=== PATIENT | female | born 1945 | race Caucasian/White ===

== ENCOUNTER 2020-10-07 09:00 | Outpatient (REF) | payer MEDICARE, SELFPAY ==
--- NOTE | 2020-10-07 | XR_ITS ---
EXAMINATION: XR ANKLE, RIGHT CLINICAL INFORMATION: Pain right ankle COMPARISON: Radiographs right foot 10/28/2015, report right ankle radiographs 06/29/2011 TECHNIQUE: AP, lateral, and mortise views of the right ankle. FINDINGS: There is diffuse soft tissue swelling versus body habitus. Numerous benign round and rim calcifications are seen in the anterolateral soft tissues similar to prior radiograph 10/28/2015, likely venous stasis. The malleoli appear intact and the ankle mortise is symmetric. There is no fracture or dislocation. No tibiotalar joint narrowing or osteochondral lesion. Again, there is pes planus with bulky posterior and plantar spurring as well as increased dorsal spurring, talonavicular region. XR/XR ankle RT min 3V IMPRESSION: 1. Flat foot. Bulky posterior and plantar calcaneal spurs. 2. Dorsal spurring talonavicular region. 3. No acute fracture or destructive process. 4. Chronic soft tissue calcifications, possibly venous stasis related.
[2020-10-07 10:02] LABS: Alanine Aminotransferase 13 U/L (0-31); Albumin Level 4.4 g/dL (3.5-5.0); Alkaline Phosphatase 52 U/L (39-117); Anion Gap 13 (12-20); Aspartate Amino Transferase 14 U/L (5-31); Bilirubin Total 0.3 mg/dL (0.0-1.0); Blood Urea Nitrogen 9 mg/dL (9-16); Calcium 9.1 mg/dL (8.4-10.2); Carbon Dioxide 31 mmol/L (22-29); Chloride 102 mmol/L (96-108); Estimated Glomerular Filt Rate > 60; Glucose Fasting 119 mg/dL (60-99); Sodium 142 mmol/L (135-145); Total Protein 7.7 g/dL (6.5-8.0)
[2020-10-07 10:25] LABS: Thyroid Stimulating Hormone 1.61 uIU/mL (0.32-4.0)
[2020-10-07 10:44] LABS: Glucose Urine UA NEG (NEG); Leukocyte Esterase Urine TRACE (NEG); Nitrite Urine NEG (NEG); Specific Gravity - Urine 1.015 (1.005-1.025); Urine Blood NEG (NEG); Urine Ketones NEG (NEG); Urine Protein NEG (NEG-TRACE)
[2020-10-07 10:49] LABS: Appearance Urine HAZY; Color Urine YELLOW
[2020-10-07 11:01] LABS: Bacteria Urine 2+ /LPF; RBC Urine 0-2 /HPF (0); Squamous Epithelial Cell Urine 2+ /LPF
== END 2020-10-07 09:01 | disposition home or self-care (01) ==
LOC: HO.LAB 09:00
PROVIDERS: PCP Internal Medicine; Visit Provider Internal Medicine
DX: I10 Essential (primary) hypertension (principal); R60.0 Localized edema; M25.571 Pain in right ankle and joints of right foot
CPT/HCPCS: 36415; 73610; 80053; 81001; 84443

== ENCOUNTER 2020-10-28 08:36 | Outpatient (REF) | payer MEDICARE, SELFPAY ==
--- NOTE | ~2020-10-28 | MM_ITS ---
EXAMINATION: MM SCREENING DIGITAL BREAST TOMOSYNTHESIS, BILATERAL CLINICAL INFORMATION: Screening. Asymptomatic. The lifetime risk of breast cancer based on the Tyrer-Cuzick Model is 3%. COMPARISON: Mammography: 06/03/2019, 05/27/2019, 05/17/2018 TECHNIQUE: Digital breast tomosynthesis is performed in both the craniocaudal and mediolateral oblique views along with computer-aided detection (CAD). Synthesized 2D images are generated from the tomosynthesis. FINDINGS: There are scattered areas of fibroglandular density (ACR BI-RADS breast composition Category b). There are no significant masses, abnormal calcifications, or other abnormalities. Breast tissue composition borders on predominantly fatty. Background stromal densities are stable. There is incidental intramammary node again noted mid upper outer right breast. The skin contours are smooth. MM/MM tomosynthesis screening BI IMPRESSION: No mammographic evidence of malignancy. ASSESSMENT: BI-RADS 2: Benign RECOMMENDATION: Routine annual mammography screening. This patient's information was entered into a reminder system with a target due date for their next mammogram.
== END 2020-10-28 08:37 | disposition home or self-care (01) ==
LOC: HO.MAMMO 08:36
PROVIDERS: PCP Internal Medicine; Visit Provider Internal Medicine
DX: Z12.31 Encounter for screening mammogram for malignant neoplasm of breast (principal)
CPT/HCPCS: 77063; 77067

== ENCOUNTER 2021-02-08 09:48 | Emergency (ER) | payer MEDICARE, SELFPAY ==
[2021-02-08 10:29] VITALS: BP 119/86; PULSE 88; RESP 16; TEMP 36.9; O2SAT 95; BMI 43.4
[2021-02-08] MEDS: Cyclobenzaprine HCl 5 MG TABLET PO (11:06)
[2021-02-08] MEDS: Lidocaine 4 % Patch ADH..PATCH 1 PATCH TRANSDERMA (11:07)
--- NOTE | 2021-02-08 11:15 | ED.NECK ---
HPI - Neck Pain/Injury General Chief Complaint: Neck Pain/Injury Stated Complaint: neck pain x 5 days Time Seen by Provider: 02/08/21 10:52 Source: patient Mode of arrival: ambulatory History of Present Illness HPI Narrative: 75-year-old female with no significant past medical history presenting to the ED complaining of left-sided neck pain x5 days. Reports woke up with the pain. States pain worsened with movement/bending or any head rotation. Denies headache, visual change, numbness, tingling, weakness, CP/SOB, injury/trauma or falls. Takes a baby aspirin, no other anticoagulation States apply heat with some pain improvement MD complaint: neck pain Related Data Previous Rx's Medication Instructions Recorded acetaminophen [Tylenol Extra 500 mg PO Q6H PRN #20 tab 02/08/21 Strength] cyclobenzaprine 5 mg PO Q8H PRN 5 Days #14 tab 02/08/21 lidocaine [Lidoderm] 1 patch TOPICAL DAILY PRN #30 ea 02/08/21 MDD remove after 12 hours tramadol 50 mg PO Q8H PRN #9 tab 02/08/21 Allergies Allergy/AdvReac Type Severity Reaction Status Date / Time No Known Allergies Allergy Verified 02/08/21 10:28 [No Known Allergies*] Review of Systems Review of Systems: Constitutional: No Fever, No Chills ENT/Mouth: No Hearing loss, No Ear Pain, No sore throat Eyes: No Eye Pain, No Vision Changes Cardiovascular: No Chest Pain, No SOB Respiratory: No Cough, No Dyspnea Gastrointestinal: No Nausea, No Vomiting, No Abdominal pain Genitourinary: No Urinary Incontinence/retention Musculoskeletal: +neck pain, No Myalgias, No Joint Swelling Skin: No Skin Lesions, No rash Neuro: No Weakness, No Numbness, No Paresthesias, No Dizziness, No Headache Yes all other systems are reviewed and are negative [facility] Past Medical History Attestation statement: The following information was validated with the patient. Social History Social History Advance Directives: No Advance Directives Information Provided: No Physical Exam Vital Signs: Vital Signs: Last Vital Signs Temp 98.4 F 02/08/21 10:29 Pulse 88 02/08/21 10:29 Resp 16 02/08/21 10:29 BP 119/86 02/08/21 10:29 Pulse Ox 95 02/08/21 10:29 Body Mass Index 43.4 Const: General: cooperative, healthy appearing and no acute distress Orientation/consciousness: patient oriented x3 Limitations: no limitations HENMT: Head: Yes normal to inspection and Yes atraumatic Ears: hearing grossly normal bilaterally, external ears normal and TM's normal bilaterally General nose exam: Normal external nose present Face and sinus: Yes normal facial exam Mouth: Normal oral and palatal mucosa present Throat: Yes posterior oropharynx normal, Yes tonsils normal and Yes uvula midline Eyes: General: appearance normal, both eyes and all related structures EOM: EOMs intact bilaterally Neck: Other: No midline cervical spinous tenderness. + left-sided paraspinal and MSK/left-sided trapezius muscle tenderness to palpation. Pain elicited on neck ROM. Neck ROM limited secondary to pain. Radial pulses intact bilaterally Neck: Yes normal visual inspection, Yes no lymphadenopathy, Yes no meningeal signs, Yes trachea midline, Yes supple and No anterior neck swelling Chest: Chest palpation & inspection: normal inspection of the chest Resp: Effort & Inspection: normal respiratory effort Auscultation: clear to auscultation bilaterally Cardio: Rate: regular rate Heart sounds: S1 normal heart sound present and S2 normal heart sound present Back/Spine/Pelvis: Other: No midline thoracic/lumbar spinous tenderness Skin: Rashes: no rashes Wounds: no wounds Neuro: General: patient oriented x3, gait normal, tone normal, moves all extremities, no meningeal signs and no focal motor deficits Gait exam (Neuro): Normal gait present Extrem: General: Yes normal to inspection MDM - Neck Pain/Injury MDM Narrative Medical decision making narrative: 75-year-old female with no significant past medical history presenting to the ED complaining of left-sided neck pain x5 days. On exam VSS, NAD, physical exam as above. Likely MSK pain. Low concern for fracture, dislocation, cervical stenosis/dissection as pain is reproducible Will DC patient home with pain control, discussed strict return precautions and worrisome signs and symptoms Discharge Plan Discharge Clinical Impression: Strain of neck muscle Patient Disposition: Home, Self-Care Instructions: Cervical Strain (ED) Additional Instructions: Your pain is likely musculoskeletal Flexeril is a muscle relaxer, take at night as it makes you drowsy, do not drive, drink alcohol, or operate machinery while taking it Lidoderm patches are numbing patches, apply to painful area Tramadol as an opiate pain medication, take only when pain is severe for the next 3 days In addition take Tylenol at home Make sure you follow-up with her primary care doctor If symptoms persist or worsen, pain becomes unbearable, you developed numbness, tingling, weakness, headache, visual changes please return to the ED immediately Prescriptions: New acetaminophen [Tylenol Extra Strength] 500 mg tablet 500 mg PO Q6H PRN (Reason: pain or fever) Qty: 20 RF: 0 lidocaine [Lidoderm] 5 % adhesive patch,medicated 1 patch topical DAILY MDD remove after 12 hours PRN (Reason: pain) Qty: 30 RF: 0 cyclobenzaprine 5 mg tablet 5 mg PO Q8H PRN (Reason: pain (scale score 7-10)) 5 Days Qty: 14 RF: 0 tramadol 50 mg tablet 50 mg PO Q8H PRN (Reason: pain, severe) Qty: 9 RF: 0 Referrals: Ezekiel Patel MD [Primary Care Provider] - 3 days Interventions: ED Discharge Assessment Last Done: 02/08/21 11:29 Discharge Date/Time: 02/08/21 11:31
== END 2021-02-08 11:31 | disposition home or self-care (01) ==
PROVIDERS: Emergency Provider Emergency Medicine; PCP Internal Medicine
DX: S16.1XXA Strain of muscle, fascia and tendon at neck level, initial encounter (principal); X50.1XXA Overexertion from prolonged static or awkward postures, initial encounter; Y93.84 Activity, sleeping; Y92.032 Bedroom in apartment as the place of occurrence of the external cause; Y99.9 Unspecified external cause status
CPT/HCPCS: 99283

== ENCOUNTER 2021-07-12 08:47 | Inpatient (IN) | payer MEDICARE, SELFPAY ==
[2021-07-12] VITALS (10 sets, daily range): BP systolic 136–163; BP diastolic 57–88; PULSE 73–93; RESP 16–25; TEMP 36.2–37.2; O2SAT 87–98; BMI 39.8
--- NOTE | ~2021-07-12 | XR_ITS ---
EXAMINATION: XR CHEST CLINICAL INFORMATION: Status post T-tube nasogastric tube placement COMPARISON: 07/12/2021 TECHNIQUE: Frontal view of the chest was obtained. FINDINGS: The tip of the ET tube is at the randa and should be pulled back. NG tube is in good position with its tip coiled in the stomach. The lungs are hypoinflated. Bibasilar atelectasis is present, left greater than right. No pleural effusions. No pneumothorax. XR/XR chest 1V IMPRESSION: ET tube at randa and should be pulled back. NG tube and good position. This critical result was discussed with Rashid Castellano NP at 8:15 PM on the evening of the exam and it was ascertained that the content and urgency of the report was understood at the time of direct communication.
--- NOTE | ~2021-07-12 | CT_ITS ---
EXAMINATION: CT ABDOMEN AND PELVIS WITHOUT CONTRAST CLINICAL INFORMATION: Upper abdominal/flank pain COMPARISON: Previous CT of the abdomen and pelvis from 2012 TECHNIQUE: Multidetector volumetric imaging was performed from the superior aspect of the liver through the pubic symphysis. Sagittal and coronal reformatted images were obtained on the technologist's workstation. This CT examination was performed using dose optimization techniques as appropriate, variously including the following: *Automated exposure control *Adjustment of mA and/or kV according to patient size (this includes techniques or standardized protocols for targeted exams where dose is matched to indication/reason for exam; i.e. extremities or head) *Use of iterative reconstruction technique DLP: 1 122 mGy-cm FINDINGS: LUNG BASES: The visualized lung bases are clear. There are calcified right hilar lymph nodes. LIVER, GALLBLADDER, AND BILIARY TREE: The liver is normal in size, shape, and attenuation. No focal hepatic lesion or biliary ductal dilatation is present. The gallbladder is slightly dilated.. There is a gallstone in the gallbladder. There is question of gallbladder wall thickening or edema. PANCREAS: Unremarkable. SPLEEN: Unremarkable. ADRENAL GLANDS: Unremarkable. KIDNEYS AND URETERS: The kidneys are normal in size, shape, and attenuation. No hydronephrosis, hydroureter, or calculi seen. No perinephric stranding. BLADDER: Unremarkable. GASTROINTESTINAL TRACT: There is diverticulosis of the colon. No evidence of diverticulitis is seen. Small and large bowel is otherwise unremarkable. The appendix is unremarkable. Stomach is unremarkable. ABDOMINAL WALL: There is a small umbilical hernia containing fat. There is a small left inguinal hernia containing fat. LYMPH NODES: Normal. VASCULAR: Unremarkable. PELVIC VISCERA: Unremarkable. OSSEOUS STRUCTURES: There are degenerative changes of the spine. There is a dependent edema seen adjacent to the lower thoracic and upper lumbar spine and linear soft tissue calcification. CT/CT abdomen pelvis wo con IMPRESSION: Distended gallbladder. Gallstone. Question gallbladder wall thickening or edema. Findings are questionable for acute cholecystitis. Follow-up ultrasound or HIDA scan should be considered if clinically indicated. Diverticulosis of the colon. No evidence of diverticulitis. No renal stone or hydronephrosis.
--- NOTE | ~2021-07-12 | XR_ITS ---
EXAMINATION: XR CHEST CLINICAL INFORMATION: Shortness of breath COMPARISON: Previous chest x-ray most recent October 2018 TECHNIQUE: Frontal view of the chest was obtained. FINDINGS: The cardiac and mediastinal contours are stable. The lung volumes are low. The lungs are clear. There is no pleural effusion or pneumothorax. There are degenerative changes of the spine and mild curvature of the mid thoracic spine to the right. XR/XR chest 1V IMPRESSION: No evidence for acute disease in the chest.
--- NOTE | ~2021-07-12 | MR_ITS ---
EXAMINATION: MR ABDOMEN WITHOUT CONTRAST CLINICAL INFORMATION: Dilated common bile duct and elevated liver function tests. Rule out common bile duct stone. COMPARISON: Previous abdominal ultrasound and abdominal and pelvic CT from yesterday TECHNIQUE: MR abdomen is performed without gadolinium contrast. MRCP sequences were also performed. FINDINGS: LUNG BASES: The visualized lung bases are unremarkable. LIVER, GALLBLADDER, AND BILIARY TREE: The liver is normal in size and contour. There is are areas of slight signal loss in the liver on out of phase suggestive of mild fatty infiltration. No focal hepatic lesion or biliary ductal dilatation is present. The gallbladder is slightly enlarged measuring 10 x 4 x 4 cm. There is a large gallstone seen in the gallbladder measuring 1.3 x 3 cm. There is some sludge seen in the gallbladder. Gallbladder wall is thickened and edematous. The gallbladder wall measures up to 7 mm. There is no intrahepatic biliary duct dilatation. The common bile duct is upper normal in size measuring 7 to 8 mm. No common bile duct stone is seen. PANCREAS: Unremarkable. The main pancreatic duct is normal. SPLEEN: Unremarkable. ADRENAL GLANDS: Unremarkable. KIDNEYS AND URETERS: The kidneys are normal in size and shape. No hydronephrosis. No perinephric stranding. GASTROINTESTINAL TRACT: There is mild diverticulosis of the colon. No bowel obstruction. No ascites or fluid collection. ABDOMINAL WALL: There is a small umbilical hernia containing fat. There is dependent edema seen in the soft tissues of the back. LYMPH NODES: No lymphadenopathy. VASCULAR: Unremarkable. OSSEOUS STRUCTURES: Marrow signal normal. MR/MR MRCP IMPRESSION: Slightly enlarged gallbladder and large 1.3 x 3 cm gallstone. Gallbladder wall thickening and edema. Findings are again suggestive of acute cholecystitis. Normal caliber intrahepatic bile ducts. Upper normal-size common bile duct measuring 7 to 8 mm. No common bile duct stone seen.
--- NOTE | ~2021-07-12 | US_ITS ---
EXAMINATION: US ABDOMEN LIMITED CLINICAL INFORMATION: Abdominal pain assess for cholecystitis. COMPARISON: CT abdomen 07/12/2021. TECHNIQUE: Real-time imaging of the right upper quadrant abdominal viscera. FINDINGS: PANCREAS: Normal. LIVER: Normal. The liver is normal in size. The liver contour is normal. Parenchymal echogenicity is normal. No focal hepatic lesion. There is no intrahepatic biliary duct dilatation seen. GALLBLADDER: Cholelithiasis with a stone measuring up to 3.3 cm. There is sludge in the gallbladder. The gallbladder is distended with a thickened wall measuring 1.3 cm. There is mural edema and pericholecystic fluid. COMMON BILE DUCT: Dilated common bile duct measuring 0.9 cm with question of debris within the duct. RIGHT KIDNEY: Normal. No hydronephrosis. No renal calculi or focal parenchymal lesions. The kidney measures 12.0 cm in maximum dimension. FREE FLUID: None. US/US abdomen limited IMPRESSION: Cholelithiasis with thickened edematous gallbladder wall and trace pericholecystic fluid. Findings are consistent with cholecystitis in the appropriate clinical context. Dilated common bile duct measuring 0.9 cm with possible debris in the duct.
--- NOTE | 2021-07-12 09:22 | ECG_ITS ---
Test Reason : short of breath Blood Pressure : / mmHG Vent. Rate : 092 BPM Atrial Rate : 092 BPM P-R Int : 168 ms QRS Dur : 084 ms QT Int : 350 ms P-R-T Axes : 034 016 025 degrees QTc Int : 432 ms Normal sinus rhythm Nonspecific T wave abnormality Abnormal ECG No significant changes seen Referred By: Helen Sanford Electronically Signed By:SAJI NUNEZ MD
--- NOTE | 2021-07-12 09:30 | ED_ITS ---
HPI - General Adult General Chief complaint: Dyspnea Stated complaint: diff breathing, abd & back pain Time Seen by Provider: 07/12/21 09:22 Source: patient, family (Spouse) and manager portable Mode of arrival: ambulatory Limitations: no limitations History of Present Illness HPI narrative: 76-year-old female came in for evaluation of shortness of breath, and midback pain with epigastric pain. Symptoms started since yesterday with shortness of breath patient is known history of COPD and sleep apnea, patient uses CPAP machine at night, patient admitted to taking 2 COVID vaccination. Patient declined any fever chills, no sick contacts, no recent travel. The patient also been complaining of mid back pain described as a constant dull aching pain radiates to the epigastric area. Declined any urinary symptoms. Related Data Previous Rx's Medication Instructions Recorded acetaminophen 500 mg tablet 500 mg PO Q6H PRN #20 tab 02/08/21 (Tylenol Extra Strength) cyclobenzaprine 5 mg tablet 5 mg PO Q8H PRN 5 Days #14 tab 02/08/21 lidocaine 5 % topical patch 1 patch TOPICAL DAILY PRN #30 ea 02/08/21 (Lidoderm) MDD remove after 12 hours tramadol 50 mg tablet 50 mg PO Q8H PRN #9 tab 02/08/21 Allergies Allergy/AdvReac Type Severity Reaction Status Date / Time No Known Allergies Allergy Verified 02/08/21 10:28 [No Known Allergies*] Review of Systems 2 Review of Systems: All other systems are reviewed and are negative Constitutional: Reports as per HPI and Reports no additional constitutional complaints Eyes: Reports as per HPI and Reports no additional eye complaints Reports system reviewed and no additional complaints, except as documented Cardiovascular: Reports as per HPI and Reports no additional cardiovascular complaints Respiratory: Reports as per HPI and Reports no additional respiratory complaints Gastrointestinal: Reports as per HPI and Reports no additional gastrointestinal complaints Genitourinary: Reports no additional female genitourinary complaints Musculoskeletal: Reports no additional musculoskeletal complaints Skin/Breast: Reports system reviewed and no additional complaints, except as docu Psychiatric: Reports no additional psychiatric complaints Endocrine: Reports no additional endocrine complaints Hematologic/Lymphatic: Reports no additional hematologic/lymphatic complaints Allergic/Immunologic: Reports no additional allergic/immunologic complaints Reports system reviewed and no additional complaints, except as documented and Reports Abnormal speech present [facility] Social History Social History Advance Directives: No Physical Exam Vital Signs: Vital Signs: Last Vital Signs Temp 98.9 F 07/12/21 09:14 Pulse 82 07/12/21 14:00 Resp 16 07/12/21 14:00 BP 155/82 H 07/12/21 14:00 Pulse Ox 97 07/12/21 14:06 Body Mass Index 39.8 Vital signs have been reviewed as appeared to be correct. Blood pressure normal. Heart rate normal. Respiration rate normal. Temperature normal. Oxygen saturation normal. Appearance: Alert. Oriented X3. No acute distress. Head: Normal external exam. Normocephalic. Atraumatic. No [place] signs noted. No raccoon eyes noted Eyes: PERRLA. EOMI. Conjunctiva and sclera normal. Eyelids normal. ENT: TM's Normal. Pharynx normal. Uvula midline. Moist mucous membranes. No trismus noted. No drooling noted. No muffled voice noted. Neck: Normal inspection. Neck supple. FROM. No adenopathy. Thyroid Normal. No meningeal signs. No neck mass noted. CVS: Normal heart rate and rhythm. Heart sound normal. No murmurs noted. Pulses normal throughout. Respiratory: No respiratory distress. Painless inspiration. Breath sounds normal. Bilateral diffuse mild expiratory wheezing, prolonged expiration. Chest nontender. No accessory muscle usage noted or decreased air movement not ed. Abdomen: Soft and nontender, no epigastric tenderness, no pulsatile palpable mass. Bowel sounds normal in all 4 quadrants. No distention noted. No organomegaly noted. No visible injury noted. Back: No CVA tenderness. Full range of motion noted. Skin: Skin warm and dry. Normal skin color. Normal skin turgor. No rashes/lesions/lacerations noted. Extremities: No lower extremity edema. Extremities exhibit normal range of motion. Extremities nontender. Neuro: Oriented X 3. Cranial nerve exam: II-XII are grossly intact No motor deficit. No sensory deficit. Reflexes normal. Course Course Course Narrative: Assessment and plan. 76-year-old female came in for evaluation of epigastric pain, and shortness of breath. Patient had a CT scan/ultrasound of the abdomen which showed acute cholecystitis with cholelithiasis, patient meet no sepsis criteria, received Zosyn. Case discussed with Dr. Ruelas who admitting the patient for possible surgical intervention. Shortness of breath patient with COPD/sleep apnea use CPAP at home, patient received bronchodilator while in the ED, patient been satting 92-97 with oxygen, had 1 time raining of low oxygen when patient walked to the bathroom 87%. Patient stable, no wheezing. Hypokalemia potassium was replaced IV. Medical Decision Making Medical Records Medical records reviewed: Yes I reviewed the patient's medical records. Lab Data Lab results reviewed: Yes I reviewed the patient's lab results. Result diagrams: 07/12/21 11:50 07/12/21 11:50 Labs: Lab Results 07/12/21 07/12/21 07/12/21 Range/Units 11:50 11:50 11:50 WBC 8.9 (4.8-10.8) X10*3/uL RBC 4.20 (4.20-5.50) X10*6/uL Hgb 12.6 (12.0-16.0) g/dl Hct 39.8 (37-47) % MCV 94.8 (80-98) fL MCH 30.0 (27.0-33.0) pg MCHC 31.7 (31.0-35.0) g/dl RDW 12.8 (11.0-16.0) % Plt Count TNP MPV Not Reportable Immature Gran % (Auto) 0.6 H (0.0-0.4) % Neut % (Auto) 91.8 H (45-73) % Lymph % (Auto) 4.6 L (20-40) % [place] % (Auto) 2.5 (2-11) % Eos % (Auto) 0.3 (0-4) % Baso % (Auto) 0.2 (0-2) % Lymph # (Auto) 0.4 L (1.2-4.9) X10*3/uL [place] # (Auto) 0.2 (0.1-1.2) X10*3/uL Eos # (Auto) 0.0 (0.0-0.4) X10*3/uL Baso # (Auto) 0.0 (0.0-0.2) X10*3/uL Abs Immat Gran (auto) 0.05 H (0.00-0.03) X10*3/uL Absolute Neuts (auto) 8.2 (2.0-8.3) X10*3/uL Absolute Nucleated RBC 0.000 (0.0-0.012) X10*3/uL Nucleated RBC % (auto) 0.0 (0.0-0.2) /100WBC Smear Tech's Comments VERIFIED Sodium 141 (135-145) mmol/L Potassium 3.0 L (3.3-5.1) mmol/L Chloride 97 (96-108) mmol/L Carbon Dioxide 34 H (22-29) mmol/L Anion Gap 13 (12-20) BUN 8 L (9-16) mg/dL Creatinine 0.59 (0.5-1.4) mg/dL Estim Creat Clear Calc 93.9 Estimated GFR > 60 Random Glucose 158 H (60-115) mg/dL Lactic Acid (0.5-2.0) mmol/L Calcium 8.9 (8.4-10.2) mg/dL Total Bilirubin 2.3 H (0.0-1.0) mg/dL Direct Bilirubin 1.7 H (0.0-0.5) mg/dL AST 228 H (5-31) U/L ALT 134 H (0-31) U/L Alkaline Phosphatase 67 D (39-117) U/L Troponin I High Sens 12.8 (<3.5-17.0) ng/L B-Natriuretic Peptide 88 (<100) pg/mL Total Protein 7.0 (6.5-8.0) g/dL Albumin 4.0 (3.5-5.0) g/dL Lipase 1391 H (8-78) U/L Urine Color Urine Appearance Urine pH (5.0-8.0) Ur Specific [place] (1.005-1.025) Urine Protein (NEG-TRACE) MG/DL Urine Glucose (UA) (NEG) MG/DL Urine Ketones (NEG) MG/DL Urine Blood (NEG) Urine Nitrite (NEG) Ur Leukocyte Esterase (NEG) Coronavirus (PCR) (Negative) Influenza Type A (PCR) (Negative) Influenza Type B (PCR) (Negative) RSV RNA Qual (PCR) (Negative) 07/12/21 07/12/21 07/12/21 Range/Units 11:50 11:50 13:06 WBC (4.8-10.8) X10*3/uL RBC (4.20-5.50) X10*6/uL Hgb (12.0-16.0) g/dl Hct (37-47) % MCV (80-98) fL MCH (27.0-33.0) pg MCHC (31.0-35.0) g/dl RDW (11.0-16.0) % Plt Count MPV Immature Gran % (Auto) (0.0-0.4) % Neut % (Auto) (45-73) % Lymph % (Auto) (20-40) % [place] % (Auto) (2-11) % Eos % (Auto) (0-4) % Baso % (Auto) (0-2) % Lymph # (Auto) (1.2-4.9) X10*3/uL [place] # (Auto) (0.1-1.2) X10*3/uL Eos # (Auto) (0.0-0.4) X10*3/uL Baso # (Auto) (0.0-0.2) X10*3/uL Abs Immat Gran (auto) (0.00-0.03) X10*3/uL Absolute Neuts (auto) (2.0-8.3) X10*3/uL Absolute Nucleated RBC (0.0-0.012) X10*3/uL Nucleated RBC % (auto) (0.0-0.2) /100WBC Smear Tech's Comments Sodium (135-145) mmol/L Potassium (3.3-5.1) mmol/L Chloride (96-108) mmol/L Carbon Dioxide (22-29) mmol/L Anion Gap (12-20) BUN (9-16) mg/dL Creatinine (0.5-1.4) mg/dL Estim Creat Clear Calc Estimated GFR Random Glucose (60-115) mg/dL Lactic Acid 1.3 (0.5-2.0) mmol/L Calcium (8.4-10.2) mg/dL Total Bilirubin (0.0-1.0) mg/dL Direct Bilirubin (0.0-0.5) mg/dL AST (5-31) U/L ALT (0-31) U/L Alkaline Phosphatase (39-117) U/L Troponin I High Sens (<3.5-17.0) ng/L B-Natriuretic Peptide (<100) pg/mL Total Protein (6.5-8.0) g/dL Albumin (3.5-5.0) g/dL Lipase (8-78) U/L Urine Color YELLOW Urine Appearance CLEAR Urine pH 6.5 (5.0-8.0) Ur Specific [place] 1.010 (1.005-1.025) Urine Protein NEG (NEG-TRACE) MG/DL Urine Glucose (UA) NEG (NEG) MG/DL Urine Ketones NEG (NEG) MG/DL Urine Blood NEG (NEG) Urine Nitrite NEG (NEG) Ur Leukocyte Esterase NEG (NEG) Coronavirus (PCR) NEGATIVE (Negative) Influenza Type A (PCR) NEGATIVE (Negative) Influenza Type B (PCR) NEGATIVE (Negative) RSV RNA Qual (PCR) NEGATIVE (Negative) Imaging Data Chest x-ray: Radiologist's impression: No acute intrathoracic pathology. CT scan - abdomen: Radiologist's impression: Distended gallbladder. Gallstone. Question gallbladder wall thickening or edema. Findings are questionable for acute cholecystitis. Follow-up ultrasound or HIDA scan should be considered if clinically indicated. Diverticulosis of the colon. No evidence of diverticulitis. No renal stone or hydronephrosis.? Abdominal ultrasound: Radiologist's impression: Cholelithiasis with thickened edematous gallbladder wall and trace pericholecystic fluid. Findings are consistent with cholecystitis in the appropriate clinical context. ? Dilated common bile duct measuring 0.9 cm with possible debris in the duct. ECG Data Attestation: I personally reviewed and interpreted this ECG as follows: Interpretation: Normal sinus rhythm at 92 beats per minutes, normal axis de viation, normal intervals, nonspecific ST-T changes. Discharge Plan Discharge Clinical Impression: Acute calculous cholecystitis, Acute hypokalemia, COPD exacerbation Patient Disposition: Admitted As Inpatient Prescriptions: No Action acetaminophen [Tylenol Extra Strength] 500 mg tablet 500 mg PO Q6H PRN (Reason: pain or fever) Qty: 20 RF: 0 lidocaine [Lidoderm] 5 % adhesive patch,medicated 1 patch topical DAILY MDD remove after 12 hours PRN (Reason: pain) Qty: 30 RF: 0 cyclobenzaprine 5 mg tablet 5 mg PO Q8H PRN (Reason: pain (scale score 7-10)) 5 Days Qty: 14 RF: 0 tramadol 50 mg tablet 50 mg PO Q8H PRN (Reason: pain, severe) Qty: 9 RF: 0
[2021-07-12] MEDS: Albuterol Sulfate (0.083%) 2.5 MG/3 ML VIAL.NEB INHALE (09:44)
[2021-07-12] MEDS: Albuterol/Iprat 2.5/0.5MG 3 ML AMPUL.NEB INHALE (09:44)
[2021-07-12] MEDS: methylPREDNISolone Sod Succ 125 MG/2 ML VIAL IVPUSH (10:09)
[2021-07-12] MEDS: Magnesium Sulfate/H2O 2 GM/50 ML PIGGYBACK IV (10:09)
[2021-07-12 11:56] LABS: Appearance Urine CLEAR; Color Urine YELLOW; Glucose Urine UA NEG (NEG); Leukocyte Esterase Urine NEG (NEG); Nitrite Urine NEG (NEG); PH 6.5 (5.0-8.0); Urine Blood NEG (NEG); Urine Ketones NEG (NEG); Urine Protein NEG (NEG-TRACE)
[2021-07-12 11:58] LABS: Basophils Percent Auto 0.2 % (0-2); Eosinophils Percent Auto 0.3 % (0-4); Hematocrit 39.8 % (37-47); Hemoglobin 12.6 g/dl (12.0-16.0); Imm Gran Abs Auto 0.05 X10*3/uL (0.00-0.03); Imm Gran Pct Auto 0.6 % (0.0-0.4); Lymphocytes Absolute Auto 0.4 X10*3/uL (1.2-4.9); Lymphocytes Percent Auto 4.6 % (20-40); MANUAL DIFF FLAG SCAN; Mean Corpuscular HGB Conc 31.7 g/dl (31.0-35.0); Mean Corpuscular Volume 94.8 fL (80-98); Monocytes Absolute Auto 0.2 X10*3/uL (0.1-1.2); Monocytes Percent Auto 2.5 % (2-11); Neutrophils Absolute Auto 8.2 X10*3/uL (2.0-8.3); Neutrophils Percent Auto 91.8 % (45-73); PLT CLUMP 1; Red Cell Distribution Width 12.8 % (11.0-16.0); SCAN SMEAR FLAG 1
--- NOTE | 2021-07-12 11:59 | PC.NURSE ---
pt alert and oriented x4, pt reports she has been sob and been having abdominal pain that radiates to the flank since last night. she also reports nausea and vomited once this morning. pt denies headache/dizziness/chest pain. no fever, no chills. Pt has history of COPD and wears a C-PAP at nights. No other symptoms reported.
[2021-07-12 12:22] LABS: B Type Natriuretic Peptide 88 pg/mL (<100); Troponin-I High Sensitivity 12.8 ng/L (<3.5-17.0)
[2021-07-12 12:33] LABS: White Blood Count 8.9 X10*3/uL (4.8-10.8)
[2021-07-12 12:34] LABS: SLIDE REVIEW VERIFIED
[2021-07-12 12:36] LABS: Influenza A PCR NEGATIVE (Negative); Influenza B PCR NEGATIVE (Negative); Resp Syncy Virus RNA Qual PCR NEGATIVE (Negative); SARS COV2 PCR INHOUSE NEGATIVE (Negative)
[2021-07-12 12:41] LABS: Alanine Aminotransferase 134 U/L (0-31); Alkaline Phosphatase 67 U/L (39-117); Anion Gap 13 (12-20); Aspartate Amino Transferase 228 U/L (5-31); Bilirubin Direct 1.7 mg/dL (0.0-0.5); Bilirubin Total 2.3 mg/dL (0.0-1.0); Blood Urea Nitrogen 8 mg/dL (9-16); Calcium 8.9 mg/dL (8.4-10.2); Carbon Dioxide 34 mmol/L (22-29); Chloride 97 mmol/L (96-108); Creatinine Clr Calc Pharmacy 93.9; Estimated Glomerular Filt Rate > 60; Glucose Random 158 mg/dL (60-115); Sodium 141 mmol/L (135-145)
--- NOTE | 2021-07-12 13:00 | PC.NURSE ---
pt taken off oxygen to ambulate to restroom, pt's o2 sat R/A 89-90%, pt reported sob. placed on 2L N/C -o2 sat 97-98%. pt denies chest pain/headache/dizziness. no apparent distress noted. at bedside.
[2021-07-12 13:05] LABS: Lipase 1391 U/L (8-78)
[2021-07-12 13:30] LABS: Lactic Acid 1.3 mmol/L (0.5-2.0)
[2021-07-12] MEDS: 0.9 % Sodium Chloride 1,000 ML 999 ML IVCONT ×2 (13:44→14:43)
[2021-07-12] MEDS: Morphine Sulfate 2 MG/ML CARTRIDGE 1 MG IVPUSH (13:53)
[2021-07-12] MEDS: Piperacillin Sodium/Tazobactam 3.375 GM in 0.9 % Sodium Chloride 50 ML IV ×2 (14:41→20:33)
[2021-07-12 14:59] LABS: COVID-19 Test Negative (Negative); IDNOW Serial# 9DD0AD1C
--- NOTE | 2021-07-12 15:42 | PHA.MEDREC ---
Pharmacy Consult ? Medication Reconciliation Pharmacy has completed the medication reconciliation There are no remarkable issues for provider's attention. Sherry Thomas, JarettD
--- NOTE | 2021-07-12 15:57 | PC.NURSE ---
called to give report rn will call back
[2021-07-12] MEDS: Potassium Chloride/H20 10 MEQ/100 ML PIGGYBACK 100 MEQ IV (16:02)
--- NOTE | 2021-07-12 16:31 | P.HPGS_ITS ---
History of Present Illness History of Present Illness Date of Service: 07/13/21 Chief complaint: Acute cholecystitis, cholelithiasis Narrative: Magalie Live is a 76 year old female presenting with complaints of abdominal pain in the right upper quadrant radiating to the back associated with nausea without vomiting. The pain began yesterday and is increased in severity throughout the day. She denies a previous episode of similar pain. She denies fever, chills, diarrhea, constipation, or other associated symptoms. She reports a previous procedure on her liver due to infection but she is unclear what this was. She presented to the emergency department and was noted to have elevated liver function tests and tenderness in the right upper quadrant. Workup revealed a gallbladder with cholelithiasis with thickened edematous gallbladder wall and trace pericholecystic fluid. Findings are consistent with cholecystitis in the appropriate clinical context. Dilated common bile duct measuring 0.9 cm with possible debris in the duct. She is admitted to the surgical service for further management of the cholelithiasis, choledocholithiasis, cholecystitis. Review of Systems Review of Systems: Yes all other systems are reviewed and are negative Constitutional: Constitutional: Denies chills, Denies fever(s) and Reports poor appetite ENT: Reports system reviewed and no additional complaints, except as documented Cardiovascular: Cardiovascular: Denies chest pain, Reports Epigastric Pain, Denies irregular heart rhythm, Denies palpitations and Denies dyspnea Respiratory: Respiratory: Denies chest congestion, Denies cough and Denies dyspnea Gastrointestinal: Gastrointestinal: Reports abdominal pain, Denies constipation, Denies diarrhea, Reports nausea and Reports vomiting Genitourinary: Genitourinary: Reports no additional female genitourinary complaints Musculoskeletal: Musculoskeletal: Reports no additional musculoskeletal complaints Endocrine: Endocrine: Denies palpitations [facility] Past Medical History Medical History (Updated 07/12/21 @ 18:15 by Robert Montgomery MD) COPD (chronic obstructive pulmonary disease) Diabetes mellitus GERD (gastroesophageal reflux disease) Hypertension Family History Family History (Updated 07/12/21 @ 18:15 by Robert Montgomery MD) Mother Diabetes Social History Social History Household Members: Spouse Housing: Apartment Do you presently have visiting nurse or other home services: Yes Patient Tobacco Use Status: Never used Tobacco Use of substances other than those prescribed or required for medical reasons: No Currently Displaying Signs/Symptoms of Drug Intoxication Withdrawal: No Have you been hit, kicked, punched, or otherwise hurt by someone within the past year? If so, by whom?: No Do you feel safe in your current relationship?: Yes Is there a partner from a previous relationship who is making you feel unsafe now?: No Are you made to feel afraid or neglected: No Advance Directives: No Do you have thoughts of harming others: None Do you have a plan to hurt others: No Plan Recently lost weight without trying: No Nutrition Risks: No Nutritional Risk Patient : No : No Poor oral hygiene: No Meds Allergies Allergy/AdvReac Type Severity Reaction Status Date / Time No Known Allergies Allergy Verified 02/08/21 10:28 [No Known Allergies*] Active Medications: Current Medications Acetaminophen (Acetaminophen 325 Mg Tablet) 650 mg PO QID PRN PRN Reason: headache, temp > 101 Hydromorphone HCl (Hydromorphone Hcl 0.5 Mg/0.5 Ml Syringe) 0.5 mg IVPUSH Q2H PRN; Protocol PRN Reason: abdominal pain Dextrose/Lactated Ringer's (D5lr) 1,000 mls @ 125 mls/hr IVCONT .Q8H TIMOTHY Piperacillin Sod/Tazobactam (Sod 3.375 gm/ Sodium Chloride) 50 mls @ 100 mls/hr IV Q6H TIMOTHY Ondansetron HCl (Ondansetron Hcl 4 Mg/2 Ml Vial) 4 mg IVPUSH QID PRN PRN Reason: Nausea Oxycodone HCl (Oxycodone Hcl Immed Release 5 Mg Tablet) 5 mg PO Q6H PRN PRN Reason: Pain, Moderate (Pain Scale 4-6 Sodium Chloride (0.9 % Sodium Chloride Flush 3 Ml Syringe) 3 ml IVFLUSH QSHIFT TIMOTHY Zolpidem Tartrate (Zolpidem Tartrate 5 Mg Tablet) 5 mg PO BEDTIME PRN PRN Reason: Insomnia Home Medications Medication Instructions Recorded Confirmed Last Taken Type albuterol sulfate 90 mcg/actuation 2 puff PO Q6H PRN 07/12/21 07/12/21 Unknown History aerosol inhaler aspirin 81 mg tablet,delayed 1 tab PO BEDTIME 07/12/21 07/12/2121 History release calcium carbonate 600 mg (1,500 1 tab PO BID 07/12/21 07/12/21 07/11/21 History mg)-vitamin D3 400 unit tablet carvedilol 12.5 mg tablet 1 tab PO BID 07/12/21 07/12/21 07/11/21 History furosemide 40 mg tablet 1 tab PO QAM 07/12/21 07/12/21 07/11/21 History hydralazine 10 mg tablet 1 tab PO TID 07/12/21 07/12/21 07/11/21 History isosorbide mononitrate 20 mg tablet 20 mg PO DAILY 07/12/21 07/12/21 07/11/21 History losartan 100 mg tablet 1 tab PO QAM 07/12/21 07/12/21 07/11/21 History metformin 500 mg tablet,extended 2 tab PO BID 07/12/21 07/12/21 07/11/21 History release 24 hr multivitamin 1 tab PO QAM 07/12/21 07/12/21 07/11/21 History pravastatin 40 mg tablet 1 tab PO QPM 07/12/21 07/12/21 07/11/21 History Physical Exam Vital Signs: Vital Signs: Last Vital Signs Temp 97.9 F 07/12/21 15:32 Pulse 79 07/12/21 16:08 Resp 18 07/12/21 16:08 BP 136/57 L 07/12/21 16:08 Pulse Ox 96 07/12/21 15:32 Body Mass Index 39.8 Const: General: cooperative, no acute distress and well developed Nutritional Appearance: well nourished Orientation/consciousness: patient oriented x3 Limitations: no limitations HENMT: Head: Yes normocephalic and Yes atraumatic Ears: hearing grossly normal bilaterally Resp: Effort & Inspection: normal respiratory effort, no audible wheezes, no cough and no respiratory distress Auscultation: clear to auscultation bilaterally Cardio: Jugular venous distension: no JVD Rate: regular rate Rhythm: regular rhythm GI: Inspection: Yes normal to inspection, No distended and Yes Abdominal panniculus present Palpation (GI): Soft to palpation, Tenderness to palpation present (GI) in the RUQ and Hawthorne's sign positive, no guarding, not rigid and hepatosplenomegaly present Percussion: Yes normal to percussion Auscultation: normal bowel sounds Rectal Exam - Female: deferred Skin: General skin exam: no rashes or lesions noted and dry skin Neuro: General: patient oriented x3 Extrem: General: Yes no clubbing, cyanosis or edema Results Results Labs: Short CBC 07/12/21 Range/Units 11:50 WBC 8.9 (4.8-10.8) X10*3/uL Hgb 12.6 (12.0-16.0) g/dl Hct 39.8 (37-47) % Plt Count TNP BMP 07/12/21 11:50 Sodium 141 Potassium 3.0 L Chloride 97 Carbon Dioxide 34 H BUN 8 L Creatinine 0.59 Calcium 8.9 Liver Function 07/12/21 Range/Units 11:50 Total Bilirubin 2.3 H (0.0-1.0) mg/dL Direct Bilirubin 1.7 H (0.0-0.5) mg/dL AST 228 H (5-31) U/L ALT 134 H (0-31) U/L Alkaline Phosphatase 67 D (39-117) U/L Albumin 4.0 (3.5-5.0) g/dL Urine 07/12/21 Range/Units 11:50 Urine Color YELLOW Urine Appearance CLEAR Urine pH 6.5 (5.0-8.0) Ur Specific [place] 1.010 (1.005-1.025) Urine Protein NEG (NEG-TRACE) MG/DL Urine Glucose (UA) NEG (NEG) MG/DL Assessment and Plan (1) Choledocholithiasis: Status: Acute (2) Acute calculous cholecystitis: Status: Acute 76-year-old female patient presenting with complaints of abdominal pain in the epigastrium and right upper quadrant found to have a thickened gallbladder with gallstones within the gallbladder. There is also dilated common bile duct with debris within the common bile duct. Patient will be admitted for IV antibiotics, IV fluids. GI consultation will be requested for the choledocholithiasis. Plan for cholecystectomy once liver functions are normalized. The patient interviewed with the assistance of a medical office asst. She expressed understanding and agrees with the plan. Quality Stroke Does the patient have a stroke diagnosis?: No VTE Prior VTE?: No VTE Risk Level:: Surgical - moderate VTE Device Contraindication: N/A - Device Ordered VTE Drug Contraindication: Treatment Not Indicated Procedures Date of Service Date of Service: 07/13/21
[2021-07-12] MEDS: Dextrose 5 % and Lactated Ring 1,000 ML 125 ML IVCONT (17:32)
--- NOTE | 2021-07-12 17:50 | HO.PM.IMCN ---
History of Present Illness Data of Consult Service Date: 07/12/21 Primary Care Provider: Carmine Patel MD [facility] Reason for consult: Medical management 76 year old female with HTN controlled on meds, Diabetes non insulin depedent who presented to the ED with abdominal avila and is found to have acute cholodocholethiasis and cholecystitis and is admitted to the surgical service. She denies SOB, CORNEJO or chest pain. Review of Systems Review of Systems: Gen: no fever Resp: no sob, no cough CV: no chest, no CORNEJO, no leg edema GI: No n/v, no abd pain Neuro: No confusion Yes all other systems are reviewed and are negative [facility] Medical History (Updated 07/12/21 @ 18:15 by Robert Montgomery MD) COPD (chronic obstructive pulmonary disease) Diabetes mellitus GERD (gastroesophageal reflux disease) Hypertension Family History (Updated 07/12/21 @ 18:15 by Robert Montgomery MD) Mother Diabetes Pertinent family history: . Social History Household Members: Spouse Housing: Apartment Do you presently have visiting nurse or other home services: Yes Patient Tobacco Use Status: Never used Tobacco service: No Current occupational status: unemployed and disabled Meds Allergies Allergy/AdvReac Type Severity Reaction Status Date / Time No Known Allergies Allergy Verified 02/08/21 10:28 [No Known Allergies*] Active Medications: Current Medications Acetaminophen (Acetaminophen 325 Mg Tablet) 650 mg PO QID PRN PRN Reason: headache, temp > 101 Hydromorphone HCl (Hydromorphone Hcl 0.5 Mg/0.5 Ml Syringe) 0.5 mg IVPUSH Q2H PRN; Protocol PRN Reason: abdominal pain Dextrose/Lactated Ringer's (D5lr) 1,000 mls @ 125 mls/hr IVCONT .Q8H TIMOTHY Last Admin: 07/12/21 17:32 Dose: 125 mls/hr Documented by: Piperacillin Sod/Tazobactam (Sod 3.375 gm/ Sodium Chloride) 50 mls @ 100 mls/hr IV Q6H TIMOTHY Ondansetron HCl (Ondansetron Hcl 4 Mg/2 Ml Vial) 4 mg IVPUSH QID PRN PRN Reason: Nausea Oxycodone HCl (Oxycodone Hcl Immed Release 5 Mg Tablet) 5 mg PO Q6H PRN PRN Reason: Pain, Moderate (Pain Scale 4-6 Sodium Chloride (0.9 % Sodium Chloride Flush 3 Ml Syringe) 3 ml IVFLUSH QSHIFT [facility] Last Admin: 07/12/21 17:13 Dose: Not Given Documented by: Zolpidem Tartrate (Zolpidem Tartrate 5 Mg Tablet) 5 mg PO BEDTIME PRN PRN Reason: Insomnia Home Medications Medication Instructions Recorded Confirmed Last Taken Type albuterol sulfate 90 mcg/actuation 2 puff PO Q6H PRN 07/12/21 07/12/21 Unknown History aerosol inhaler aspirin 81 mg tablet,delayed 1 tab PO BEDTIME 07/12/21 07/12/21 07/11/21 History release calcium carbonate 600 mg (1,500 1 tab PO BID 07/12/21 07/12/21 07/11/21 History mg)-vitamin D3 400 unit tablet carvedilol 12.5 mg tablet 1 tab PO BID 07/12/21 07/12/21 07/11/21 History furosemide 40 mg tablet 1 tab PO QAM 07/12/21 07/12/21 07/11/21 History hydralazine 10 mg tablet 1 tab PO TID 07/12/21 07/12/21 07/11/21 History isosorbide mononitrate 20 mg tablet 20 mg PO DAILY 07/12/21 07/12/21 07/11/21 History losartan 100 mg tablet 1 tab PO QAM 07/12/21 07/12/21 07/11/21 History metformin 500 mg tablet,extended 2 tab PO BID 07/12/21 07/12/21 07/11/21 History release 24 hr multivitamin 1 tab PO QAM 07/12/21 07/12/21 07/11/21 History pravastatin 40 mg tablet 1 tab PO QPM 07/12/21 07/12/21 07/11/21 History Physical Exam Vital Signs and Narrative: Vital Signs: Last Vital Signs Temp 97.9 F 07/12/21 17:20 Pulse 74 07/12/21 17:20 Resp 17 07/12/21 17:20 BP 163/76 H 07/12/21 17:20 Pulse Ox 92 07/12/21 17:20 Body Mass Index 39.8 Constitutional: Alert, in no distress, overweight. Mental Status: Oriented to person, place and time. Eyes: Pupils are equal, round and reactive to light. Ear, Nose and Throat: Oropharynx clear, mucous membranes moist. Ears and nose without eformities. Trachea midline. Respiratory: Clear to auscultation. No wheezing, rales or rhonchi. Cardiovascular: S1 S2 regular. No murmurs, rubs or gallops. Gastrointestinal: Abdomen soft, non-tender, non-distended. Normal bowel sounds.? Neurologic: Cranial nerves II-XII grossly intact. No focal neurological deficits. Moves all extremities spontaneously.? Skin: No rashes or lesions.? Musculoskeletal: No cyanosis or clubbing. Psychiatric: Normal mood and affect? Results Labs CBC and Chem 7: 07/13/21 05:59 07/13/21 05:59 Labs: Laboratory Results - last 24 hr 07/12/21 07/12/21 07/12/21 11:50 11:50 11:50 MCV 94.8 MCH 30.0 MCHC 31.7 RDW 12.8 Plt Count TNP MPV Not Reportable Immature Gran % (Auto) 0.6 H Neut % (Auto) 91.8 H Lymph % (Auto) 4.6 L [place] % (Auto) 2.5 Eos % (Auto) 0.3 Baso % (Auto) 0.2 Lymph # (Auto) 0.4 L [place] # (Auto) 0.2 Eos # (Auto) 0.0 Baso # (Auto) 0.0 Abs Immat Gran (auto) 0.05 H Absolute Neuts (auto) 8.2 Absolute Nucleated RBC 0.000 Nucleated RBC % (auto) 0.0 Smear Tech's Comments VERIFIED Anion Gap 13 Estim Creat Clear Calc 93.9 Estimated GFR > 60 Random Glucose 158 H Lactic Acid Calcium 8.9 Total Bilirubin 2.3 H Direct Bilirubin 1.7 H AST 228 H ALT 134 H Alkaline Phosphatase 67 D Troponin I High Sens 12.8 B-Natriuretic Peptide 88 Total Protein 7.0 Albumin 4.0 Lipase 1391 H Urine Color Urine Appearance Urine pH Ur Specific [place] Urine Protein Urine Glucose (UA) Urine Ketones Urine Blood Urine Nitrite Ur Leukocyte Esterase Coronavirus (PCR) COVID-19 ([facility]) COVID-19 Clin Com Influenza Type A (PCR) Influenza Type B (PCR) RSV RNA Qual (PCR) 07/12/21 07/12/21 07/12/21 11:50 11:50 13:06 MCV MCH MCHC RDW Plt Count MPV Immature Gran % (Auto) Neut % (Auto) Lymph % (Auto) [place] % (Auto) Eos % (Auto) Baso % (Auto) Lymph # (Auto) [place] # (Auto) Eos # (Auto) Baso # (Auto) Abs Immat Gran (auto) Absolute Neuts (auto) Absolute Nucleated RBC Nucleated RBC % (auto) Smear Tech's Comments Anion Gap Estim Creat Clear Calc Estimated GFR Random Glucose Lactic Acid 1.3 Calcium Total Bilirubin Direct Bilirubin AST ALT Alkaline Phosphatase Troponin I High Sens B-Natriuretic Peptide Total Protein Albumin Lipase Urine Color YELLOW Urine Appearance CLEAR Urine pH 6.5 Ur Specific [place] 1.010 Urine Protein NEG Urine Glucose (UA) NEG Urine Ketones NEG Urine Blood NEG Urine Nitrite NEG Ur Leukocyte Esterase NEG Coronavirus (PCR) NEGATIVE COVID-19 ([facility]) COVID-19 Clin Com Influenza Type A (PCR) NEGATIVE Influenza Type B (PCR) NEGATIVE RSV RNA Qual (PCR) NEGATIVE 07/12/21 14:26 MCV MCH MCHC RDW Plt Count MPV Immature Gran % (Auto) Neut % (Auto) Lymph % (Auto) [place] % (Auto) Eos % (Auto) Baso % (Auto) Lymph # (Auto) [place] # (Auto) Eos # (Auto) Baso # (Auto) Abs Immat Gran (auto) Absolute Neuts (auto) Absolute Nucleated RBC Nucleated RBC % (auto) Smear Tech's Comments Anion Gap Estim Creat Clear Calc Estimated GFR Random Glucose Lactic Acid Calcium Total Bilirubin Direct Bilirubin AST ALT Alkaline Phosphatase Troponin I High Sens B-Natriuretic Peptide Total Protein Albumin Lipase Urine Color Urine Appearance Urine pH Ur Specific [place] Urine Protein Urine Glucose (UA) Urine Ketones Urine Blood Urine Nitrite Ur Leukocyte Esterase Coronavirus (PCR) COVID-19 ([facility]) Negative COVID-19 Clin Com See Note Influenza Type A (PCR) Influenza Type B (PCR) RSV RNA Qual (PCR) Imaging Radiologist's Impressions: Impressions Abdomen/Pelvis CT 07/12/21 09:22 IMPRESSION: Distended gallbladder. Gallstone. Question gallbladder wall thickening or edema. Findings are questionable for acute cholecystitis. Follow-up ultrasound or HIDA scan should be considered if clinically indicated. Diverticulosis of the colon. No evidence of diverticulitis. No renal stone or hydronephrosis. Chest X-Ray 07/12/21 09:22 IMPRESSION: No evidence for acute disease in the chest. Abdomen Ultrasound 07/12/21 12:27 IMPRESSION: Cholelithiasis with thickened edematous gallbladder wall and trace pericholecystic fluid. Findings are consistent with cholecystitis in the appropriate clinical context. Dilated common bile duct measuring 0.9 cm with possible debris in the duct. Assessment and Plan (1) Acute calculous cholecystitis: Status: Acute (2) Choledocholithiasis: Status: Acute (3) COPD exacerbation: Status: Acute (4) Acute hypokalemia: Status: Acute (5) Diabetes mellitus: Status: Acute 76/F with HLD, HTN, Diabetes, COPD here with acute choledocholithiasis and acute cholecystitis 1/Choledocholithiasis--GI consult for possible ERCP 2/Cholecysistitis--continue Pip-Tazo, ultimtely will need cholecystectomy -If surgery planned at moderate risk of basis of advanced age, HTN, diabetes and other commorbidity, get an ECG 3/Diabetes--hold Metformin, SSI 4/HTN--Continue Losartan, Coreg, 5/COPD--no exacerbation, bronchodilators PRN 6/She has no diagnosis of heart failure and has no signs of symptoms of heart failure and wonder why she's on Lasix. 7/HypOkalemia, replace K in IVF
[2021-07-12] MEDS: 0.9 % Sodium Chloride Flush 3 ML SYRINGE IVFLUSH (20:34)
--- NOTE | 2021-07-12 22:35 | PM.EVENT ---
Event Note Date of Service: 07/12/21 Event Note: GI-Consult received and chart reviewed. Will see patient on 07/13. Will order PT/INR and MRCP for AM 07/13. Will plan for ERCP pending results of MRCP and labs. Thanks
[2021-07-13] MEDS: Dextrose 5 % and Lactated Ring 1,000 ML 125 ML IVCONT ×2 (02:24→23:51)
[2021-07-13] MEDS: Piperacillin Sodium/Tazobactam 3.375 GM in 0.9 % Sodium Chloride 50 ML IV ×4 (02:26→20:32)
[2021-07-13 04:00] VITALS: BP 165/73; PULSE 71; RESP 20; TEMP 36.7; O2SAT 92
[2021-07-13 06:17] LABS: MANUAL DIFF FLAG NO
[2021-07-13 06:20] LABS: Basophils Percent Auto 0.1 % (0-2); Hematocrit 39.8 % (37-47); Hemoglobin 12.6 g/dl (12.0-16.0); Imm Gran Abs Auto 0.05 X10*3/uL (0.00-0.03); Imm Gran Pct Auto 0.4 % (0.0-0.4); Lymphocytes Absolute Auto 0.9 X10*3/uL (1.2-4.9); Lymphocytes Percent Auto 6.8 % (20-40); Mean Corpuscular HGB Conc 31.7 g/dl (31.0-35.0); Mean Corpuscular Hemoglobin 29.6 pg (27.0-33.0); Mean Corpuscular Volume 93.4 fL (80-98); Monocytes Absolute Auto 0.8 X10*3/uL (0.1-1.2); Monocytes Percent Auto 5.6 % (2-11); Neutrophils Absolute Auto 11.6 X10*3/uL (2.0-8.3); Neutrophils Percent Auto 87.1 % (45-73); Platelet Count 148 X10*3/uL (160-400); Red Blood Count 4.26 X10*6/uL (4.20-5.50); Red Cell Distribution Width 12.7 % (11.0-16.0); White Blood Count 13.4 X10*3/uL (4.8-10.8)
[2021-07-13 06:26] LABS: INTERNATIONAL NORM RATIO 1.3 (0.9-1.1); Prothrombin Time 14.6 SEC (9.9-13.0)
[2021-07-13 06:41] LABS: Alanine Aminotransferase 191 U/L (0-31); Albumin Level 3.8 g/dL (3.5-5.0); Alkaline Phosphatase 71 U/L (39-117); Anion Gap 14 (12-20); Aspartate Amino Transferase 167 U/L (5-31); Bilirubin Total 1.4 mg/dL (0.0-1.0); Blood Urea Nitrogen 6 mg/dL (9-16); Calcium 8.5 mg/dL (8.4-10.2); Carbon Dioxide 34 mmol/L (22-29); Chloride 98 mmol/L (96-108); Estimated Glomerular Filt Rate > 60; Glucose Random 266 mg/dL (60-115); Potassium 3.6 mmol/L (3.3-5.1); Sodium 142 mmol/L (135-145); Total Protein 6.9 g/dL (6.5-8.0)
[2021-07-13 07:36] VITALS: BP 173/76; PULSE 69; RESP 16; TEMP 36.6; O2SAT 96
[2021-07-13] MEDS: carvediloL 12.5 MG TABLET PO ×2 (08:14→20:32)
[2021-07-13] MEDS: Calcium + Vitamin D 250 MG TABLET 500 MG PO ×2 (08:15→20:31)
[2021-07-13] MEDS: Multivitamin TABLET 1 TAB PO (08:15)
[2021-07-13] MEDS: hydrALAZINE HCl 10 MG TABLET PO ×3 (08:15→20:32)
[2021-07-13] MEDS: Losartan Potassium 50 MG TABLET 100 MG PO (08:15)
[2021-07-13] MEDS: Furosemide 40 MG TABLET PO (08:15)
--- NOTE | 2021-07-13 10:30 | PM.PNGS ---
Subjective Subjective Date of Service: 07/13/21 <Talya Cardoza PA-C - Last Filed: 07/13/21 10:35> 07/14/21 <Ravi Ruelas MD - Last Filed: 07/14/21 07:44> Interval history: Pain is a little bit better today. Wants to eat something. Had MRCP this morning. <Talya Cardoza PA-C - Last Filed: 07/13/21 10:35> Physical Exam Vital Signs: Vital Signs: Last Vital Signs Temp 97.9 F 07/13/21 07:36 Pulse 69 07/13/21 07:36 Resp 16 07/13/21 07:36 BP 173/76 H 07/13/21 07:36 Pulse Ox 96 07/13/21 07:36 Body Mass Index 39.8 <Talya Cardoza PA-C - Last Filed: 07/13/21 10:35> Const: General: comfortable, no acute distress and alert <Talya Cardoza PA-C - Last Filed: 07/13/21 10:35> Orientation/consciousness: patient oriented x3 <Talya Cardoza PA-C - Last Filed: 07/13/21 10:35> Resp: Effort & Inspection: normal respiratory effort <Talya Cardoza PA-C - Last Filed: 07/13/21 10:35> GI: Inspection: No distended and Yes obesity <Talya Cardoza PA-C - Last Filed: 07/13/21 10:35> Palpation (GI): Soft to palpation, Tenderness to palpation present (GI) in the epigastrum and Hawthorne's sign positive and no guarding <Talya Cardoza PA-C - Last Filed: 07/13/21 10:35> Percussion: Yes normal to percussion <MICHAEL Smallwood Last Filed: 07/13/21 10:35> Skin: General skin exam: no rashes or lesions noted <Talya Cardoza PA-C - Last Filed: 07/13/21 10:35> Neuro: General: patient oriented x3 <Talya Cardoza PA-C - Last Filed: 07/13/21 10:35> Procedures Date of Service Date of Service: 07/13/21 <Talya Cardoza PA-C - Last Filed: 07/13/21 10:35> Progress Note: A&P Assessment and plan (1) Acute calculous cholecystitis: Status: Acute <MICHAEL Smallwood Last Filed: 07/13/21 10:35> (2) Choledocholithiasis: Status: Acute <Talya Cardoza PA-C - Last Filed: 07/13/21 10:35> (3) Diabetes mellitus: Status: Acute <Talya Cardoza PA-C - Last Filed: 07/13/21 10:35> Assessment and Plan: 76 year old female admitted with acute cholecystitis, choledocolithiasis. She underwent MRCP this morning. Negative for CBD stone. She feels slighty improved this morning and her LFTs have downtrended which suggests the CBD stone/debris has passed. Discussed proceeding with laparoscopic cholecystectomy, possible open during this stay. She agrees. Will add onto the OR schedule for tomorrow. Can have clear liquids today, NPO at midnight. Cont IV zosyn, gentle IVF. <Talya Cardoza PA-C - Last Filed: 07/13/21 10:35> 76 year old female admitted with acute cholecystitis, choledocolithiasis. She underwent MRCP this morning. Negative for CBD stone. She feels slighty improved this morning and her LFTs have downtrended which suggests the CBD stone/debris has passed. Discussed proceeding with laparoscopic cholecystectomy, possible open during this stay. She agrees. Will add onto the OR schedule for tomorrow. Can have clear liquids today, NPO at midnight. Cont IV zosyn, gentle IVF. Findings of the MRI reviewed with the patient via [facility]. Overall she feels improved this morning with decreased abdominal pain. She is hungry and would like to start some food. Patient appears to have cleared stones in the common bile duct and an ERCP is not required at this time. Patient is found to have a large gallstone with some biliary sludge and debris within the gallbladder and should have a cholecystectomy to prevent further passage of stones. After discussion of the procedure, risks, and alternatives, she consents to a laparoscopic or possible open cholecystectomy. She will be scheduled for the procedure tomorrow morning. <Ravi Ruelas MD - Last Filed: 07/14/21 07:44> Fall Risk Details Current Medications: Current Medications Acetaminophen (Acetaminophen 325 Mg Tablet) 650 mg PO QID PRN PRN Reason: headache, temp > 101 Albuterol Sulfate (Albuterol Sulfate 90 Mcg 8 Gm Inhaler) 2 puff INHALE Q6H PRN PRN Reason: Wheezing Calcium Carbonate/Cholecalciferol (Calcium + Vitamin D 250 Mg Tablet) 500 mg PO BID [facility] Last Admin: 07/13/21 08:15 Dose: 500 mg Documented by: Carvedilol (Carvedilol 12.5 Mg Tablet) 12.5 mg PO BID [facility]; Protocol Last Admin: 07/13/21 08:14 Dose: 12.5 mg Documented by: Cyclobenzaprine HCl (Cyclobenzaprine Hcl 5 Mg Tablet) 5 mg PO Q8H PRN PRN Reason: pain (scale score 7-10) Furosemide (Furosemide 40 Mg Tablet) 40 mg PO DAILY [facility]; Protocol Last Admin: 07/13/21 08:15 Dose: 40 mg Documented by: Hydralazine HCl (Hydralazine Hcl 10 Mg Tablet) 10 mg PO TID [facility]; Protocol Last Admin: 07/13/21 08:15 Dose: 10 mg Documented by: Hydromorphone HCl (Hydromorphone Hcl 0.5 Mg/0.5 Ml Syringe) 0.5 mg IVPUSH Q2H PRN; Protocol PRN Reason: abdominal pain Dextrose/Lactated Ringer's (D5lr) 1,000 mls @ 125 mls/hr IVCONT .Q8H [facility] Last Infusion: 07/13/21 10:25 Dose: Infused Documented by: Piperacillin Sod/Tazobactam (Sod 3.375 gm/ Sodium Chloride) 50 mls @ 100 mls/hr IV Q6H [facility] Last Infusion: 07/13/21 08:59 Dose: Infused Documented by: Losartan Potassium (Losartan Potassium 50 Mg Tablet) 100 mg PO DAILY [facility]; Protocol Last Admin: 07/13/21 08:15 Dose: 100 mg Documented by: Multivitamins/Vitamin C (Multivitamin Tablet) 1 tab PO DAILY [facility] Last Admin: 07/13/21 08:15 Dose: 1 tab Documented by: Non-Formulary Medication (Isosorbide Mononitrate) 20 mg PO DAILY [facility] Ondansetron HCl (Ondansetron Hcl 4 Mg/2 Ml Vial) 4 mg IVPUSH QID PRN PRN Reason: Nausea Oxycodone HCl (Oxycodone Hcl Immed Release 5 Mg Tablet) 5 mg PO Q6H PRN PRN Reason: Pain, Moderate (Pain Scale 4-6 Pravastatin Sodium (Pravastatin Sodium 40 Mg Tablet) 40 mg PO BEDTIME [facility] Sodium Chloride (0.9 % Sodium Chloride Flush 3 Ml Syringe) 3 ml IVFLUSH QSHIFT [facility] Last Admin: 07/13/21 07:42 Dose: Not Given Documented by: Zolpidem Tartrate (Zolpidem Tartrate 5 Mg Tablet) 5 mg PO BEDTIME PRN PRN Reason: Insomnia <Talya Cardoza PA-C - Last Filed: 07/13/21 10:35> Time Spent With Patient Time: Total time spent is greater than 50% in coordination of care (as documented) at patient's floor/unit and/or counseling patient: <Talya Cardoza PA-C - Last Filed: 07/13/21 10:35> Time with patient: 15 - 24 minutes <MICHAEL Smallwood Last Filed: 07/13/21 10:35> Quality Stroke Does the patient have a stroke diagnosis?: No <Talya Cardoza PA-C - Last Filed: 07/13/21 10:35> VTE Prior VTE?: No <Talya Cardoza PA-C - Last Filed: 07/13/21 10:35> VTE Risk Level:: Surgical - moderate <MICHAEL Smallwood Last Filed: 07/13/21 10:35> VTE Device Contraindication: N/A - Device Ordered <MICHAEL Smallwood Last Filed: 07/13/21 10:35> VTE Drug Contraindication: Treatment Not Indicated <MICHAEL Smallwood Last Filed: 07/13/21 10:35>
[2021-07-13 11:13] VITALS: BP 179/82; PULSE 62; RESP 17; TEMP 36.6; O2SAT 98
--- NOTE | 2021-07-13 11:37 | MHC.CM.PN ---
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
--- NOTE | 2021-07-13 11:46 | HO.PM.IMPN ---
Subjective Subjective Date of Service: 07/14/21 Interval History: Seen in f/u for cholecystitis, BP and diabetes managment. c/o of some headache this morning Review of Systems no fever, no abd pain, some headache Physical Exam Vital Signs: Vital Signs: Last Vital Signs Temp 97.9 F 07/13/21 11:13 Pulse 62 07/13/21 11:13 Resp 17 07/13/21 11:13 BP 179/82 H 07/13/21 11:13 Pulse Ox 98 07/13/21 11:13 Body Mass Index 39.8 General: AO X 3, no acute distress Resp: CTA bilateral CVS: S1,S2,RRR GI: +BS, NT, no distention Skin: No rash Neuro: motor grossly intact Psych: appropriate affect Objective Data Active Medications Acetaminophen (Acetaminophen 325 Mg Tablet) 650 mg PO QID PRN PRN Reason: headache, temp > 101 Albuterol Sulfate (Albuterol Sulfate 90 Mcg 8 Gm Inhaler) 2 puff INHALE Q6H PRN PRN Reason: Wheezing Calcium Carbonate/Cholecalciferol (Calcium + Vitamin D 250 Mg Tablet) 500 mg PO BID [facility] Last Admin: 07/13/21 08:15 Dose: 500 mg Documented by: BIN Carvedilol (Carvedilol 12.5 Mg Tablet) 12.5 mg PO BID [facility]; Protocol Last Admin: 07/13/21 08:14 Dose: 12.5 mg Documented by: BIN Cyclobenzaprine HCl (Cyclobenzaprine Hcl 5 Mg Tablet) 5 mg PO Q8H PRN PRN Reason: pain (scale score 7-10) Furosemide (Furosemide 40 Mg Tablet) 40 mg PO DAILY [facility]; Protocol Last Admin: 07/13/21 08:15 Dose: 40 mg Documented by: BIN Hydralazine HCl (Hydralazine Hcl 10 Mg Tablet) 10 mg PO TID [facility]; Protocol Last Admin: 07/13/21 08:15 Dose: 10 mg Documented by: BIN Hydromorphone HCl (Hydromorphone Hcl 0.5 Mg/0.5 Ml Syringe) 0.5 mg IVPUSH Q2H PRN; Protocol PRN Reason: abdominal pain Dextrose/Lactated Ringer's (D5lr) 1,000 mls @ 125 mls/hr IVCONT .Q8H [facility] Last Infusion: 10/27/21 10:25 Dose: 0 mls/hr Documented by: BIN Piperacillin Sod/Tazobactam (Sod 3.375 gm/ Sodium Chloride) 50 mls @ 100 mls/hr IV Q6H [facility] Last Infusion: 07/13/21 08:59 Dose: 0 mls/hr Documented by: BIN Cefotetan Disodium 2 gm/ (Sodium Chloride) 50 mls @ 100 mls/hr IV PREOP ONE Stop: 07/14/21 10:59 Losartan Potassium (Losartan Potassium 50 Mg Tablet) 100 mg PO DAILY [facility]; Protocol Last Admin: 07/13/21 08:15 Dose: 100 mg Documented by: BIN Multivitamins/Vitamin C (Multivitamin Tablet) 1 tab PO DAILY [facility] Last Admin: 07/13/21 08:15 Dose: 1 tab Documented by: BIN Non-Formulary Medication (Isosorbide Mononitrate) 20 mg PO DAILY [facility] Ondansetron HCl (Ondansetron Hcl 4 Mg/2 Ml Vial) 4 mg IVPUSH QID PRN PRN Reason: Nausea Oxycodone HCl (Oxycodone Hcl Immed Release 5 Mg Tablet) 5 mg PO Q6H PRN PRN Reason: Pain, Moderate (Pain Scale 4-6 Pravastatin Sodium (Pravastatin Sodium 40 Mg Tablet) 40 mg PO BEDTIME [facility] Sodium Chloride (0.9 % Sodium Chloride Flush 3 Ml Syringe) 3 ml IVFLUSH QSHIFT [facility] Last Admin: 07/13/21 07:42 Dose: Not Given Documented by: BIN Non-Admin Reason: IV Running Zolpidem Tartrate (Zolpidem Tartrate 5 Mg Tablet) 5 mg PO BEDTIME PRN PRN Reason: Insomnia Labs CBC & Chem 7: 07/14/21 05:26 07/13/21 05:59 Labs: Laboratory Results - last 24 hr 07/12/21 07/12/21 07/12/21 11:50 11:50 11:50 MCV 94.8 MCH 30.0 MCHC 31.7 RDW 12.8 Plt Count TNP MPV Not Reportable Immature Gran % (Auto) 0.6 H Neut % (Auto) 91.8 H Lymph % (Auto) 4.6 L Winn % (Auto) 2.5 Eos % (Auto) 0.3 Baso % (Auto) 0.2 Lymph # (Auto) 0.4 L Winn # (Auto) 0.2 Eos # (Auto) 0.0 Baso # (Auto) 0.0 Abs Immat Gran (auto) 0.05 H Absolute Neuts (auto) 8.2 Absolute Nucleated RBC 0.000 Nucleated RBC % (auto) 0.0 Smear Tech's Comments VERIFIED PT INR Anion Gap 13 Estim Creat Clear Calc 93.9 Estimated GFR > 60 Random Glucose 158 H Lactic Acid Calcium 8.9 Total Bilirubin 2.3 H Direct Bilirubin 1.7 H AST 228 H ALT 134 H Alkaline Phosphatase 67 D Troponin I High Sens 12.8 B-Natriuretic Peptide 88 Total Protein 7.0 Albumin 4.0 Lipase 1391 H Urine Color Urine Appearance Urine pH Ur Specific [place] Urine Protein Urine Glucose (UA) Urine Ketones Urine Blood Urine Nitrite Ur Leukocyte Esterase Coronavirus (PCR) COVID-19 ([facility]) COVID19 Clin Com Influenza Type A (PCR) Influenza Type B (PCR) RSV RNA Qual (PCR) 07/12/21 07/12/21 07/12/21 11:50 11:50 13:06 MCV MCH MCHC RDW Plt Count MPV Immature Gran % (Auto) Neut % (Auto) Lymph % (Auto) Winn % (Auto) Eos % (Auto) Baso % (Auto) Lymph # (Auto) Winn # (Auto) Eos # (Auto) Baso # (Auto) Abs Immat Gran (auto) Absolute Neuts (auto) Absolute Nucleated RBC Nucleated RBC % (auto) Smear Tech's Comments PT INR Anion Gap Estim Creat Clear Calc Estimated GFR Random Glucose Lactic Acid 1.3 Calcium Total Bilirubin Direct Bilirubin AST ALT Alkaline Phosphatase Troponin I High Sens B-Natriuretic Peptide Total Protein Albumin Lipase Urine Color YELLOW Urine Appearance CLEAR Urine pH 6.5 Ur Specific [place] 1.010 Urine Protein NEG Urine Glucose (UA) NEG Urine Ketones NEG Urine Blood NEG Urine Nitrite NEG Ur Leukocyte Esterase NEG Coronavirus (PCR) NEGATIVE COVID-19 ([facility]) COVID-19 Clin Com Influenza Type A (PCR) NEGATIVE Influenza Type B (PCR) NEGATIVE RSV RNA Qual (PCR) NEGATIVE 07/12/21 07/13/21 07/13/21 14:26 05:59 05:59 MCV 93.4 MCH 29.6 MCHC 31.7 RDW 12.7 Plt Count 148 L MPV 11.0 Immature Gran % (Auto) 0.4 Neut % (Auto) 87.1 H Lymph % (Auto) 6.8 L Winn % (Auto) 5.6 Eos % (Auto) 0.0 Baso % (Auto) 0.1 Lymph # (Auto) 0.9 L Winn # (Auto) 0.8 Eos # (Auto) 0.0 Baso # (Auto) 0.0 Abs Immat Gran (auto) 0.05 H Absolute Neuts (auto) 11.6 H Absolute Nucleated RBC 0.000 Nucleated RBC % (auto) 0.0 Smear Tech's Comments PT INR Anion Gap 14 Estim Creat Clear Calc 88.0 Estimated GFR > 60 Random Glucose 266 H Lactic Acid Calcium 8.5 Total Bilirubin 1.4 H Direct Bilirubin 1.0 H AST 167 H ALT 191 H Alkaline Phosphatase 71 Troponin I High Sens B-Natriuretic Peptide Total Protein 6.9 Albumin 3.8 Lipase Urine Color Urine Appearance Urine pH Ur Specific [place] Urine Protein Urine Glucose (UA) Urine Ketones Urine Blood Urine Nitrite Ur Leukocyte Esterase Coronavirus (PCR) COVID-19 ([facility]) Negative COVID-19 Clin Com See Note Influenza Type A (PCR) Influenza Type B (PCR) RSV RNA Qual (PCR) 07/13/21 05:59 MCV MCH MCHC RDW Plt Count MPV Immature Gran % (Auto) Neut % (Auto) Lymph % (Auto) Winn % (Auto) Eos % (Auto) Baso % (Auto) Lymph # (Auto) Winn # (Auto) Eos # (Auto) Baso # (Auto) Abs Immat Gran (auto) Absolute Neuts (auto) Absolute Nucleated RBC Nucleated RBC % (auto) Smear Tech's Comments PT 14.6 H INR 1.3 H Anion Gap Estim Creat Clear Calc Estimated GFR Random Glucose Lactic Acid Calcium Total Bilirubin Direct Bilirubin AST ALT Alkaline Phosphatase Troponin I High Sens B-Natriuretic Peptide Total Protein Albumin Lipase Urine Color Urine Appearance Urine pH Ur Specific [place] Urine Protein Urine Glucose (UA) Urine Ketones Urine Blood Urine Nitrite Ur Leukocyte Esterase Coronavirus (PCR) COVID-19 ([facility]) COVID-19 Clin Com Influenza Type A (PCR) Influenza Type B (PCR) RSV RNA Qual (PCR) Assessment and Plan (1) Diabetes mellitus: Status: Acute (2) Choledocholithiasis: Status: Acute (3) Acute calculous cholecystitis: Status: Acute (4) Acute hypokalemia: Status: Acute Assessment and Plan: 76/F with HLD, HTN, Diabetes, COPD here with acute choledocholithiasis and acute cholecystitis 1/Choledocholithiasis--GI following for possible ERCP 2/Cholecysistitis--continue Pip-Tazo, ultimtely will need cholecystectomy -If surgery planned at moderate risk of basis of advanced age, HTN, diabetes and other commorbidity, get an ECG 3/Diabetes--hold Metformin, SSI 4/HTN--Continue Losartan, Coreg, 5/COPD--no exacerbation, bronchodilators PRN 6/She DOES NOT have diagnosis of heart failure and has no signs of symptoms of heart failure and wonder why she's on Lasix. 7/HypOkalemia, resolved. 8/Paracetamol PRN for headache Quality Stroke Does the patient have a stroke diagnosis?: No VTE Prior VTE?: No VTE Risk Level:: Surgical - moderate VTE Device Contraindication: N/A - Device Ordered VTE Drug Contraindication: Treatment Not Indicated
--- NOTE | 2021-07-13 12:05 | MHC.CM.PN ---
PLAN IS FOR [facility]. CASE MANAGEMENT TO FOLLOW FOR ANY CHANGES IN DISCHARGE PLAN.
--- NOTE | 2021-07-13 12:15 | PM.EVENT ---
Event Note Date of Service: 07/13/21 Event Note: GI Consult-Full note dictated. Hx via patient with a faculty i on call medical assistant and from the EMR. Imp: Resolved gallstone pancreatitis with presumed passage of CBD sludge and/or stone. Her MRCP is negative for a CBD stone and the LFT's are improved. Her abdominal exam is benign and she feels much better. Rec: F/U labs in AM. I agree with need for CCY. Currently no need for preop ERCP. Please call me if I can be of any further assistance. D/W patient in detail. She is comfortable with the plan. Thanks.
[2021-07-13] MEDS: Acetaminophen 325 MG TABLET 650 MG PO ×2 (14:05→20:31)
[2021-07-13 14:15] LABS: Glucose, Whole Blood 249 mg/dL (60-115)
[2021-07-13 15:16] VITALS: BP 159/72; PULSE 70; RESP 18; TEMP 37; O2SAT 98
[2021-07-13 19:26] VITALS: BP 172/86; PULSE 60; RESP 17; TEMP 36.2; O2SAT 95
[2021-07-13] MEDS: Pravastatin Sodium 40 MG TABLET PO (20:31)
[2021-07-13] MEDS: 0.9 % Sodium Chloride Flush 3 ML SYRINGE IVFLUSH (20:32)
[2021-07-13] MEDS: Cyclobenzaprine HCl 5 MG TABLET PO (21:15)
[2021-07-13 23:40] VITALS: BP 124/64; PULSE 55; RESP 16; TEMP 36.3; O2SAT 95
[2021-07-14] VITALS (25 sets, daily range): BP systolic 112–182; BP diastolic 53–127; PULSE 57–92; RESP 12–25; TEMP 36.1–37.4; O2SAT 9–100
[2021-07-14] MEDS: Piperacillin Sodium/Tazobactam 3.375 GM in 0.9 % Sodium Chloride 50 ML IV ×2 (02:46→08:18)
[2021-07-14] MEDS: Acetaminophen 325 MG TABLET 650 MG PO (04:55)
[2021-07-14 05:52] LABS: Basophils Percent Auto 0.2 % (0-2); Hemoglobin 12.6 g/dl (12.0-16.0); PLT CLUMP 1; Red Cell Distribution Width 12.8 % (11.0-16.0); SCAN SMEAR FLAG 1
[2021-07-14 05:54] LABS: Eosinophils Absolute Auto 0.1 X10*3/uL (0.0-0.4); Eosinophils Percent Auto 1.2 % (0-4); Hematocrit 40.7 % (37-47); Imm Gran Abs Auto 0.03 X10*3/uL (0.00-0.03); Imm Gran Pct Auto 0.4 % (0.0-0.4); Lymphocytes Absolute Auto 0.9 X10*3/uL (1.2-4.9); Lymphocytes Percent Auto 10.8 % (20-40); Mean Corpuscular Hemoglobin 29.7 pg (27.0-33.0); Mean Platelet Volume 11.3 fL (9.4-12.3); Monocytes Absolute Auto 0.5 X10*3/uL (0.1-1.2); Monocytes Percent Auto 5.5 % (2-11); Neutrophils Absolute Auto 6.7 X10*3/uL (2.0-8.3); Neutrophils Percent Auto 81.9 % (45-73); Platelet Count 135 X10*3/uL (160-400); Red Blood Count 4.24 X10*6/uL (4.20-5.50); White Blood Count 8.2 X10*3/uL (4.8-10.8)
[2021-07-14 05:55] LABS: MANUAL DIFF FLAG NO
[2021-07-14 06:17] LABS: Alanine Aminotransferase 226 U/L (0-31); Albumin Level 3.6 g/dL (3.5-5.0); Alkaline Phosphatase 91 U/L (39-117); Aspartate Amino Transferase 153 U/L (5-31); Bilirubin Direct 0.6 mg/dL (0.0-0.5); Bilirubin Total 0.8 mg/dL (0.0-1.0); Lipase 6 U/L (8-78); Total Protein 6.7 g/dL (6.5-8.0)
[2021-07-14] MEDS: oxyCODONE HCl Immed Release 5 MG TABLET PO (06:54)
[2021-07-14] MEDS: Dextrose 5 % and Lactated Ring 1,000 ML 125 ML IVCONT (07:05)
[2021-07-14] MEDS: hydrALAZINE HCl 10 MG TABLET PO ×2 (07:19→20:58)
[2021-07-14] MEDS: carvediloL 12.5 MG TABLET PO ×2 (07:19→20:57)
[2021-07-14] MEDS: Losartan Potassium 50 MG TABLET 100 MG PO (07:19)
[2021-07-14] MEDS: Furosemide 40 MG TABLET PO (07:19)
--- NOTE | 2021-07-14 07:44 | MHC.SHP ---
Pre-Procedural Eval Section A Date of Service: 07/14/21 The patient is an INPATIENT: Yes Changes since office visit: Yes Patient answered all questions; No Cold of Flu in the past 2 weeks, No New Medical Problems and No Changes in Medication The History & Physical has been completed within 30 days and I have reviewed it.: Yes Section B Chief Complaint: Acute cholecystitis, cholelithiasis Allergies: Allergies Allergy/AdvReac Type Severity Reaction Status Date / Time No Known Allergies Allergy Verified 02/08/21 10:28 [No Known Allergies*] Plan Diagnosis/Plan: Unchanged I have reviewed the history and physical and performed a pertinent physical examination on my patient. No changes have occurred unless specified.
--- NOTE | 2021-07-14 08:48 | HO.ANESPROP2 ---
HPI - Anesthesia Eval Consult details Narrative: 76 yo female patient for laparoscopic cholecystectomy PMFSH Active Problems Active Problems: All Active Problems (Updated 07/12/21 @ 18:15 by Robert Montgomery MD) Diabetes mellitus (Acute) Choledocholithiasis (Acute) Acute calculous cholecystitis (Acute) Acute hypokalemia (Acute) COPD exacerbation (Acute) Asthma. Uses nebulizer NICO. Uses CPAP machine Past Medical History Medical History COPD (chronic obstructive pulmonary disease) Diabetes mellitus GERD (gastroesophageal reflux disease) Hypertension Family History Family History Mother Diabetes Family history of problems with anesthesia: No Surgical History History of Problems with Anesthesia: No Social History Social History Household Members: Spouse Housing: Apartment Do you presently have visiting nurse or other home services: Yes Patient Tobacco Use Status: Former Tobacco user Tobacco use type: Cigarette Years Smoked: 20 service: No Current occupational status: unemployed and disabled Meds Allergies Allergy/AdvReac Type Severity Reaction Status Date / Time No Known Allergies Allergy Verified 02/08/21 10:28 [No Known Allergies*] Active Medications: Current Medications Acetaminophen (Acetaminophen 325 Mg Tablet) 650 mg PO QID PRN PRN Reason: headache, temp > 101 Last Admin: 07/14/21 04:55 Dose: 650 mg Documented by: Albuterol Sulfate (Albuterol Sulfate 90 Mcg 8 Gm Inhaler) 2 puff INHALE Q6H PRN PRN Reason: Wheezing Calcium Carbonate/Cholecalciferol (Calcium + Vitamin D 250 Mg Tablet) 500 mg PO BID [facility] Last Admin: 07/14/21 07:21 Dose: Not Given Documented by: Carvedilol (Carvedilol 12.5 Mg Tablet) 12.5 mg PO BID [facility]; Protocol Last Admin: 07/14/21 07:19 Dose: 12.5 mg Documented by: Cyclobenzaprine HCl (Cyclobenzaprine Hcl 5 Mg Tablet) 5 mg PO Q8H PRN PRN Reason: pain (scale score 7-10) Last Admin: 07/13/21 21:15 Dose: 5 mg Documented by: Furosemide (Furosemide 40 Mg Tablet) 40 mg PO DAILY [facility]; Protocol Last Admin: 07/14/21 07:19 Dose: 40 mg Documented by: Hydralazine HCl (Hydralazine Hcl 10 Mg Tablet) 10 mg PO TID [facility]; Protocol Last Admin: 07/14/21 07:19 Dose: 10 mg Documented by: Hydromorphone HCl (Hydromorphone Hcl 0.5 Mg/0.5 Ml Syringe) 0.5 mg IVPUSH Q2H PRN; Protocol PRN Reason: abdominal pain Dextrose/Lactated Ringer's (D5lr) 1,000 mls @ 125 mls/hr IVCONT .Q8H [facility] Last Admin: 07/14/21 07:05 Dose: 125 mls/hr Documented by: Piperacillin Sod/Tazobactam (Sod 3.375 gm/ Sodium Chloride) 50 mls @ 100 mls/hr IV Q6H [facility] Last Admin: 07/14/21 08:18 Dose: 100 mls/hr Documented by: Cefotetan Disodium 2 gm/ (Sodium Chloride) 50 mls @ 100 mls/hr IV PREOP ONE Stop: 07/14/21 10:59 Losartan Potassium (Losartan Potassium 50 Mg Tablet) 100 mg PO DAILY [facility]; Protocol Last Admin: 07/14/21 07:19 Dose: 100 mg Documented by: Multivitamins/Vitamin C (Multivitamin Tablet) 1 tab PO DAILY [facility] Last Admin: 07/14/21 07:21 Dose: Not Given Documented by: Non-Formulary Medication (Isosorbide Mononitrate) 20 mg PO DAILY [facility] Ondansetron HCl (Ondansetron Hcl 4 Mg/2 Ml Vial) 4 mg IVPUSH QID PRN PRN Reason: Nausea Oxycodone HCl (Oxycodone Hcl Immed Release 5 Mg Tablet) 5 mg PO Q6H PRN PRN Reason: Pain, Moderate (Pain Scale 4-6 Last Admin: 07/14/21 06:54 Dose: 5 mg Documented by: Pravastatin Sodium (Pravastatin Sodium 40 Mg Tablet) 40 mg PO BEDTIME [facility] Last Admin: 07/13/21 20:31 Dose: 40 mg Documented by: Sodium Chloride (0.9 % Sodium Chloride Flush 3 Ml Syringe) 3 ml IVFLUSH QSHIFT [facility] Last Admin: 07/14/21 07:00 Dose: Not Given Documented by: Zolpidem Tartrate (Zolpidem Tartrate 5 Mg Tablet) 5 mg PO BEDTIME PRN PRN Reason: Insomnia Home Medications Medication Instructions Recorded Confirmed Last Taken Type albuterol sulfate 90 mcg/actuation 2 puff PO Q6H PRN 07/12/21 07/12/21 Unknown History aerosol inhaler aspirin 81 mg tablet,delayed 1 tab PO BEDTIME 07/12/21 07/14/21 07/12/21 History release calcium carbonate 600 mg (1,500 1 tab PO BID 07/12/21 07/12/21 07/11/21 History mg)-vitamin D3 400 unit tablet carvedilol 12.5 mg tablet 1 tab PO BID 07/12/21 07/12/21 07/11/21 History furosemide 40 mg tablet 1 tab PO QAM 07/12/21 07/12/21 07/11/21 History hydralazine 10 mg tablet 1 tab PO TID 07/12/21 07/12/21 07/11/21 History isosorbide mononitrate 20 mg tablet 20 mg PO DAILY 07/12/21 07/12/21 07/11/21 History losartan 100 mg tablet 1 tab PO QAM 07/12/21 07/12/21 07/11/21 History metformin 500 mg tablet,extended 2 tab PO BID 07/12/21 07/12/21 07/11/21 History release 24 hr multivitamin 1 tab PO QAM 07/12/21 07/12/21 07/11/21 History pravastatin 40 mg tablet 1 tab PO QPM 07/12/21 07/12/21 07/11/21 History Exam Exam Date and Time: July 14, 2021 0848 Height,Weight and Vital Signs: Height 5 ft 3 in Weight 102.058 kg Last Vital Signs Temp 97.5 F 07/14/21 07:05 Pulse 65 07/14/21 07:05 Resp 17 07/14/21 07:05 BP 171/73 H 07/14/21 07:05 Pulse Ox 98 07/14/21 07:05 Vital Signs Temp Pulse Resp BP Pulse Ox 07/14/21 09:00 97.9 F 57 16 161/78 H 99 07/14/21 07:05 97.5 F 65 17 171/73 H 98 07/14/21 04:25 160/84 H 07/14/21 04:00 98.2 F 58 17 181/84 H 97 07/13/21 23:40 97.4 F 55 16 124/64 95 07/13/21 19:26 97.2 F 60 17 172/86 H 95 07/13/21 15:16 98.6 F 70 18 159/72 H 98 07/13/21 11:13 97.9 F 62 17 179/82 H 98 Pertinent Lab Results Pertinent Lab Results: Laboratory Tests 07/12/21 07/12/21 07/12/21 11:50 11:50 11:50 WBC 8.9 RBC 4.20 Hgb 12.6 Hct 39.8 MCV 94.8 MCH 30.0 MCHC 31.7 RDW 12.8 Plt Count TNP MPV Not Reportable Immature Gran % (Auto) 0.6 H Neut % (Auto) 91.8 H Lymph % (Auto) 4.6 L [place] % (Auto) 2.5 Eos % (Auto) 0.3 Baso % (Auto) 0.2 Lymph # (Auto) 0.4 L [place] # (Auto) 0.2 Eos # (Auto) 0.0 Baso # (Auto) 0.0 Abs Immat Gran (auto) 0.05 H Absolute Neuts (auto) 8.2 Absolute Nucleated RBC 0.000 Nucleated RBC % (auto) 0.0 Smear Tech's Comments VERIFIED PT INR Sodium 141 Potassium 3.0 L Chloride 97 Carbon Dioxide 34 H Anion Gap 13 BUN 8 L Creatinine 0.59 Estim Creat Clear Calc 93.9 Estimated GFR > 60 POC Glucose Random Glucose 158 H Lactic Acid Calcium 8.9 Total Bilirubin 2.3 H Direct Bilirubin 1.7 H AST 228 H ALT 134 H Alkaline Phosphatase 67 D Troponin I High Sens 12.8 B-Natriuretic Peptide 88 Total Protein 7.0 Albumin 4.0 Lipase 1391 H Urine Color Urine Appearance Urine pH Ur Specific [place] Urine Protein Urine Glucose (UA) Urine Ketones Urine Blood Urine Nitrite Ur Leukocyte Esterase Coronavirus (PCR) COVID-19 ([facility]) COVID-19 Clin Com Influenza Type A (PCR) Influenza Type B (PCR) RSV RNA Qual (PCR) 07/12/21 07/12/21 07/12/21 11:50 11:50 13:06 WBC RBC Hgb Hct MCV MCH MCHC RDW Plt Count MPV Immature Gran % (Auto) Neut % (Auto) Lymph % (Auto) [place] % (Auto) Eos % (Auto) Baso % (Auto) Lymph # (Auto) [place] # (Auto) Eos # (Auto) Baso # (Auto) Abs Immat Gran (auto) Absolute Neuts (auto) Absolute Nucleated RBC Nucleated RBC % (auto) Smear Tech's Comments PT INR Sodium Potassium Chloride Carbon Dioxide Anion Gap BUN Creatinine Estim Creat Clear Calc Estimated GFR POC Glucose Random Glucose Lactic Acid 1.3 Calcium Total Bilirubin Direct Bilirubin AST ALT Alkaline Phosphatase Troponin I High Sens B-Natriuretic Peptide Total Protein Albumin Lipase Urine Color YELLOW Urine Appearance CLEAR Urine pH 6.5 Ur Specific [place] 1.010 Urine Protein NEG Urine Glucose (UA) NEG Urine Ketones NEG Urine Blood NEG Urine Nitrite NEG Ur Leukocyte Esterase NEG Coronavirus (PCR) NEGATIVE COVID-19 ([facility]) COVID-19 Clin Com Influenza Type A (PCR) NEGATIVE Influenza Type B (PCR) NEGATIVE RSV RNA Qual (PCR) NEGATIVE 07/12/21 07/13/21 07/13/21 14:26 05:59 05:59 WBC 13.4 H RBC 4.26 Hgb 12.6 Hct 39.8 MCV 93.4 MCH 29.6 MCHC 31.7 RDW 12.7 Plt Count 148 L MPV 11.0 Immature Gran % (Auto) 0.4 Neut % (Auto) 87.1 H Lymph % (Auto) 6.8 L [place] % (Auto) 5.6 Eos % (Auto) 0.0 Baso % (Auto) 0.1 Lymph # (Auto) 0.9 L [place] # (Auto) 0.8 Eos # (Auto) 0.0 Baso # (Auto) 0.0 Abs Immat Gran (auto) 0.05 H Absolute Neuts (auto) 11.6 H Absolute Nucleated RBC 0.000 Nucleated RBC % (auto) 0.0 Smear Tech's Comments PT INR Sodium 142 Potassium 3.6 Chloride 98 Carbon Dioxide 34 H Anion Gap 14 BUN 6 L Creatinine 0.63 Estim Creat Clear Calc 88.0 Estimated GFR > 60 POC Glucose Random Glucose 266 H Lactic Acid Calcium 8.5 Total Bilirubin 1.4 H Direct Bilirubin 1.0 H AST 167 H ALT 191 H Alkaline Phosphatase 71 Troponin I High Sens B-Natriuretic Peptide Total Protein 6.9 Albumin 3.8 Lipase Urine Color Urine Appearance Urine pH Ur Specific [place] Urine Protein Urine Glucose (UA) Urine Ketones Urine Blood Urine Nitrite Ur Leukocyte Esterase Coronavirus (PCR) COVID-19 ([facility]) Negative COVID-19 Clin Com See Note Influenza Type A (PCR) Influenza Type B (PCR) RSV RNA Qual (PCR) 07/13/21 07/13/21 07/14/21 05:59 14:10 05:26 WBC RBC Hgb Hct MCV MCH MCHC RDW Plt Count MPV Immature Gran % (Auto) Neut % (Auto) Lymph % (Auto) [place] % (Auto) Eos % (Auto) Baso % (Auto) Lymph # (Auto) [place] # (Auto) Eos # (Auto) Baso # (Auto) Abs Immat Gran (auto) Absolute Neuts (auto) Absolute Nucleated RBC Nucleated RBC % (auto) Smear Tech's Comments PT 14.6 H INR 1.3 H Sodium Potassium Chloride Carbon Dioxide Anion Gap BUN Creatinine Estim Creat Clear Calc Estimated GFR POC Glucose 249 H Random Glucose Lactic Acid Calcium Total Bilirubin 0.8 Direct Bilirubin 0.6 H AST 153 H ALT 226 H Alkaline Phosphatase 91 D Troponin I High Sens B-Natriuretic Peptide Total Protein 6.7 Albumin 3.6 Lipase 6 L Urine Color Urine Appearance Urine pH Ur Specific [place] Urine Protein Urine Glucose (UA) Urine Ketones Urine Blood Urine Nitrite Ur Leukocyte Esterase Coronavirus (PCR) COVID-19 ([facility]) COVID-19 Clin Com Influenza Type A (PCR) Influenza Type B (PCR) RSV RNA Qual (PCR) 07/14/21 05:26 WBC 8.2 RBC 4.24 Hgb 12.6 Hct 40.7 MCV 96.0 MCH 29.7 MCHC 31.0 RDW 12.8 Plt Count 135 L MPV 11.3 Immature Gran % (Auto) 0.4 Neut % (Auto) 81.9 H Lymph % (Auto) 10.8 L [place] % (Auto) 5.5 Eos % (Auto) 1.2 Baso % (Auto) 0.2 Lymph # (Auto) 0.9 L [place] # (Auto) 0.5 Eos # (Auto) 0.1 Baso # (Auto) 0.0 Abs Immat Gran (auto) 0.03 Absolute Neuts (auto) 6.7 Absolute Nucleated RBC 0.000 Nucleated RBC % (auto) 0.0 Smear Tech's Comments PT INR Sodium Potassium Chloride Carbon Dioxide Anion Gap BUN Creatinine Estim Creat Clear Calc Estimated GFR POC Glucose Random Glucose Lactic Acid Calcium Total Bilirubin Direct Bilirubin AST ALT Alkaline Phosphatase Troponin I High Sens B-Natriuretic Peptide Total Protein Albumin Lipase Urine Color Urine Appearance Urine pH Ur Specific [place] Urine Protein Urine Glucose (UA) Urine Ketones Urine Blood Urine Nitrite Ur Leukocyte Esterase Coronavirus (PCR) COVID-19 ([facility]) COVID-19 Clin Com Influenza Type A (PCR) Influenza Type B (PCR) RSV RNA Qual (PCR) Laboratory Results - last 24 hr 07/13/21 07/14/21 07/14/21 14:10 05:26 05:26 MCV 96.0 MCH 29.7 MCHC 31.0 RDW 12.8 Plt Count 135 L MPV 11.3 Immature Gran % (Auto) 0.4 Neut % (Auto) 81.9 H Lymph % (Auto) 10.8 L [place] % (Auto) 5.5 Eos % (Auto) 1.2 Baso % (Auto) 0.2 Lymph # (Auto) 0.9 L [place] # (Auto) 0.5 Eos # (Auto) 0.1 Baso # (Auto) 0.0 Abs Immat Gran (auto) 0.03 Absolute Neuts (auto) 6.7 Absolute Nucleated RBC 0.000 Nucleated RBC % (auto) 0.0 POC Glucose 249 H Total Bilirubin 0.8 Direct Bilirubin 0.6 H AST 153 H ALT 226 H Alkaline Phosphatase 91 D Total Protein 6.7 Albumin 3.6 Lipase 6 L 07/14/21 08:52 MCV MCH MCHC RDW Plt Count MPV Immature Gran % (Auto) Neut % (Auto) Lymph % (Auto) [place] % (Auto) Eos % (Auto) Baso % (Auto) Lymph # (Auto) [place] # (Auto) Eos # (Auto) Baso # (Auto) Abs Immat Gran (auto) Absolute Neuts (auto) Absolute Nucleated RBC Nucleated RBC % (auto) POC Glucose 177 H Total Bilirubin Direct Bilirubin AST ALT Alkaline Phosphatase Total Protein Albumin Lipase Airway Mallampati Class: II TM Dist: >3cm Neck ROM: Full Denture: Upper Loose/Missing/Broken Teeth: Yes (Many missing bottom) Heart: RRR Lungs: CTAB Assessment and Plan Assessment Anesthesia Assessment: Anesthesia Plan Discussed and Chart Reviewed Final Anesthetic Review Family History of Problems with Anesthesia: No History of Problems with Anesthesia: No NPO: Yes ASA Class: III Final Preanesthetic Review: No Changes in Pt Med Stat, Meds/Allgs Chart Reviewed, Consent Obtained/Reviewed and Anes Risks/Benef Reviewed Patient Risk: Intermediate Procedure Risk: Intermediate Assessment/Block/Sedation in SS: Assess/Block/Sedation-SS Anesthetic Plan Anesthetic Plan: GA Disposition: Standard PACU and Inp. Admit - Standard Bed
[2021-07-14 09:16] LABS: Glucose, Whole Blood 177 mg/dL (60-115)
[2021-07-14] MEDS: Lactated Ringers 1,000 ML 100 ML IVCONT (09:21)
--- NOTE | 2021-07-14 10:06 | HO.PM.IMPN ---
Subjective Subjective Date of Service: 07/15/21 Interval History: F/u on stephy op eval, BP, diabetes management, patient was admitted to ICU post op d/t respiratory difficulty and was NIV Review of Systems no fever no abd pain Physical Exam Vital Signs: Vital Signs: Last Vital Signs Temp 97.9 F 07/14/21 09:00 Pulse 57 07/14/21 09:00 Resp 16 07/14/21 09:00 BP 161/78 H 07/14/21 09:00 Pulse Ox 99 07/14/21 09:00 Body Mass Index 39.8 General: AO X 3, no acute distress Resp:? rhonchi on bipa CVS: S1,S2,RRR GI: see surgery note Skin: No rash t Objective Data Active Medications Acetaminophen (Acetaminophen 325 Mg Tablet) 650 mg PO QID PRN PRN Reason: headache, temp > 101 Last Admin: 07/14/21 04:55 Dose: 650 mg Documented by: ALCON Albuterol Sulfate (Albuterol Sulfate 90 Mcg 8 Gm Inhaler) 2 puff INHALE Q6H PRN PRN Reason: Wheezing Albuterol Sulfate (Albuterol Sulfate (0.083%) 2.5 Mg/3 Ml Vial.Neb) 2.5 mg INHALE ONCE PRN PRN Reason: Wheezing Calcium Carbonate/Cholecalciferol (Calcium + Vitamin D 250 Mg Tablet) 500 mg PO BID [facility] Last Admin: 07/14/21 07:21 Dose: Not Given Documented by: BIN Non-Admin Reason: NPO Carvedilol (Carvedilol 12.5 Mg Tablet) 12.5 mg PO BID [facility]; Protocol Last Admin: 07/14/21 07:19 Dose: 12.5 mg Documented by: BIN Cyclobenzaprine HCl (Cyclobenzaprine Hcl 5 Mg Tablet) 5 mg PO Q8H PRN PRN Reason: pain (scale score 7-10) Last Admin: 07/13/21 21:15 Dose: 5 mg Documented by: ALCON Fentanyl (Fentanyl Citrate/Pf 100 Mcg/2 Ml Vial) 25 mcg IVPUSH Q5M PRN; Protocol PRN Reason: Pain, Moderate (Pain Scale 4-6 Furosemide (Furosemide 40 Mg Tablet) 40 mg PO DAILY [facility]; Protocol Last Admin: 07/14/21 07:19 Dose: 40 mg Documented by: BIN Hydralazine HCl (Hydralazine Hcl 10 Mg Tablet) 10 mg PO TID [facility]; Protocol Last Admin: 07/14/21 07:19 Dose: 10 mg Documented by: BIN Hydromorphone HCl (Hydromorphone Hcl 0.5 Mg/0.5 Ml Syringe) 0.5 mg IVPUSH Q2H PRN; Protocol PRN Reason: abdominal pain Hydromorphone HCl (Hydromorphone Hcl 0.5 Mg/0.5 Ml Syringe) 0.25 mg IVPUSH Q5M PRN; Protocol PRN Reason: Pain, Severe (Pain Scale 7-10) Dextrose/Lactated Ringer's (D5lr) 1,000 mls @ 125 mls/hr IVCONT .Q8H [facility] Last Admin: 07/14/21 07:05 Dose: 125 mls/hr Documented by: BIN Piperacillin Sod/Tazobactam (Sod 3.375 gm/ Sodium Chloride) 50 mls @ 100 mls/hr IV Q6H [facility] Last Infusion: 07/14/21 08:55 Dose: 0 mls/hr Documented by: SHERIN Cefotetan Disodium 2 gm/ (Sodium Chloride) 50 mls @ 100 mls/hr IV PREOP ONE Stop: 07/14/21 10:59 Lactated Ringer's (Lr) 1,000 mls @ 100 mls/hr IVCONT .Q10H [facility] Last Admin: 07/14/21 09:21 Dose: 100 mls/hr Documented by: MARIA FERNANDA Promethazine HCl 6.25 mg/ (Sodium Chloride) 50.25 mls @ 201 mls/hr IV ONCE PRN PRN Reason: Nausea and Vomiting Losartan Potassium (Losartan Potassium 50 Mg Tablet) 100 mg PO DAILY [facility]; Protocol Last Admin: 07/14/21 07:19 Dose: 100 mg Documented by: BIN Multivitamins/Vitamin C (Multivitamin Tablet) 1 tab PO DAILY [facility] Last Admin: 07/14/21 07:21 Dose: Not Given Documented by: BIN Non-Admin Reason: NPO Non-Formulary Medication (Isosorbide Mononitrate) 20 mg PO DAILY [facility] Ondansetron HCl (Ondansetron Hcl 4 Mg/2 Ml Vial) 4 mg IVPUSH QID PRN PRN Reason: Nausea Ondansetron HCl (Ondansetron Hcl 4 Mg/2 Ml Vial) 4 mg IVPUSH ONCE PRN PRN Reason: Nausea and Vomiting Oxycodone HCl (Oxycodone Hcl Immed Release 5 Mg Tablet) 5 mg PO Q6H PRN PRN Reason: Pain, Moderate (Pain Scale 4-6 Last Admin: 07/14/21 06:54 Dose: 5 mg Documented by: ALCON Pravastatin Sodium (Pravastatin Sodium 40 Mg Tablet) 40 mg PO BEDTIME [facility] Last Admin: 07/13/21 20:31 Dose: 40 mg Documented by: ALCON Sodium Chloride (0.9 % Sodium Chloride Flush 3 Ml Syringe) [facility] Last Admin: 07/14/21 07:00 Dose: Not Given Documented by: BIN Non-Admin Reason: IV Running Zolpidem Tartrate (Zolpidem Tartrate 5 Mg Tablet) 5 mg PO BEDTIME PRN PRN Reason: Insomnia Labs CBC & Chem 7: 07/15/21 05:21 07/15/21 05:21 Labs: Laboratory Results - last 24 hr 07/13/21 07/14/21 07/14/21 14:10 05:26 05:26 MCV 96.0 MCH 29.7 MCHC 31.0 RDW 12.8 Plt Count 135 L MPV 11.3 Immature Gran % (Auto) 0.4 Neut % (Auto) 81.9 H Lymph % (Auto) 10.8 L [place] % (Auto) 5.5 Eos % (Auto) 1.2 Baso % (Auto) 0.2 Lymph # (Auto) 0.9 L [place] # (Auto) 0.5 Eos # (Auto) 0.1 Baso # (Auto) 0.0 Abs Immat Gran (auto) 0.03 Absolute Neuts (auto) 6.7 Absolute Nucleated RBC 0.000 Nucleated RBC % (auto) 0.0 POC Glucose 249 H Total Bilirubin 0.8 Direct Bilirubin 0.6 H AST 153 H ALT 226 H Alkaline Phosphatase 91 D Total Protein 6.7 Albumin 3.6 Lipase 6 L 07/14/21 08:52 MCV MCH MCHC RDW Plt Count MPV Immature Gran % (Auto) Neut % (Auto) Lymph % (Auto) [place] % (Auto) Eos % (Auto) Baso % (Auto) Lymph # (Auto) [place] # (Auto) Eos # (Auto) Baso # (Auto) Abs Immat Gran (auto) Absolute Neuts (auto) Absolute Nucleated RBC Nucleated RBC % (auto) POC Glucose 177 H Total Bilirubin Direct Bilirubin AST ALT Alkaline Phosphatase Total Protein Albumin Lipase Microbiology Microbiology Results: Microbiology 07/12/21 13:10 Blood Culture - Preliminary Blood - Venous No growth after 24 hours. 07/12/21 13:06 Blood Culture - Preliminary Blood - Venous No growth after 24 hours. Assessment and Plan (1) Diabetes mellitus: Status: Acute (2) Choledocholithiasis: Status: Acute (3) Acute calculous cholecystitis: Status: Acute (4) Acute hypokalemia: Status: Acute Assessment and Plan: 76/F with HLD, HTN, Diabetes, COPD here with acute choledocholithiasis and acute cholecystitis 1/Choledocholithiasis-- 2/Cholecysistitis--now s/p CCY and being managed in ICU for respiratory difficulty --Care per ICU team and resume care once out of ICU Quality Stroke Does the patient have a stroke diagnosis?: No VTE Prior VTE?: No VTE Risk Level:: Surgical - moderate VTE Device Contraindication: N/A - Device Ordered VTE Drug Contraindication: Treatment Not Indicated
--- NOTE | 2021-07-14 10:15 | P.OP_ITS ---
Operative Note Operative Note Date of Service: 07/14/21 Narrative: Preoperative diagnosis: Acute cholecystitis, cholelithiasis, choledocholithiasis Postoperative diagnosis: Same Procedure: Laparoscopic cholecystectomy Surgeon: Ravi Ruelas MD Car Repairer Helper: DOTTIE Smallwood Anesthesia: General endotracheal Indications for procedure: 76-year-old female patient presenting with complaints of abdominal pain in the right upper quadrant found to have a thickened gallbladder wall with gallstones. Patient was initially found to have gallstones within the common bile duct, but subsequent MRCP was negative for choledocholithiasis. She presents today for laparoscopic cholecystectomy. Operative findings: Acutely inflamed gallbladder with an edematous wall and a large gallstone within the gallbladder. Multiple adhesions were noted to the outer surface of the or. Specimen: gallbladder Estimated blood loss: 2 mL Complications: None Procedure details: Patient was brought to the OR and placed in a supine position. After administering general anesthesia the patient's abdomen was prepped with ChloraPrep and draped in a sterile fashion. Local anesthesia consisting of 0.5% Sensorcaine without epinephrine was infiltrated in a periumbilical region. A 5 mm incision was made above the umbilicus in a transverse fashion. The Veress needle was then inserted while elevating abdominal cavity with towel clips. After positive drop test the abdomen was insufflated to a pressure of 15 mm of mercury. The Veress needle was then removed and a 5 mm trocar inserted. The camera was inserted in the abdomen explored. A 12 mm trocar was then placed in the epigastrium and two 5 mm trocars placed in the right upper quadrant. The patient was placed in reverse Trendelenburg positioning and rotated to the left. The gallbladder was grasped with the fundus and retracted cephalad.. The infundibulum was then grasped and retracted away from the liver bed. The Dolphin dissected was then used to dissect the peritoneum off the infundibulum to reveal the junction with the cystic duct. Cystic artery was noted slightly medial and posterior to the cystic duct. After obtaining a critical view the cystic duct was doubly clipped and divided. The cystic artery was then doubly clipped and divided. The gallbladder was then dissected off the liver bed using electrocautery with an L hook. Hemostasis was assured all times using the electrocautery. When the gallbladder is completely dissected off the liver bed was placed in an Endo- Catch bag and brought out through the epigastric incision. The gallbladder was sent to pathology for further examination. The abdomen was then re-examined. The liver bed was irrigated and suctioned dry. No bleeding or bile leak could be identified. CO2 was then evacuated and all trocars removed. Fascia was closed at the epigastric incision using a [id number] Polysorb suture. Skin was closed in all incisions using a subcuticular 4 0 Polysorb suture. Sterile dressings consisting of Steri-Strips, 2 x 2 gauze, and Tegaderm were then applied. The patient tolerated the procedure well. Sponge instrument and needle counts reported as correct. The patient was transferred to PACU in stable condition.
[2021-07-14 11:05] LABS: Glucose, Whole Blood 192 mg/dL (60-115)
--- NOTE | 2021-07-14 12:19 | CONS_ITS ---
DATE OF SERVICE: 07/13/2021 REQUESTING PHYSICIAN: Ravi Ruelas MD. REASON FOR CONSULTATION: Pancreatitis, elevated LFTs, and gallstones. HISTORY OF PRESENT ILLNESS: This has been obtained from the patient with a medical insurance coder, and from the medical record. The patient is a 76-year-old female, who was well up until being awakened on the morning of admission with epigastric pain. This was quite severe and radiated to her back and was associated with vomiting. She denies any hematemesis nor coffee-grounds emesis. She denies any noticeable jaundice nor fevers. There was no diarrhea. She has not had this problem before. She denies any particular chronic GI complaints. She came to the ER for evaluation and was admitted after the finding of elevated LFTs and pancreatitis. At the present time, she appears very well and appears very comfortable. She denies any abdominal pain presently and is feeling much better. She denies any previous history of pancreatitis herself nor family members. Prior to being awakened with the pain, she was feeling well from a GI standpoint. She enjoys a good appetite without any heartburn or dysphagia. Her bowel movements have been regular without any bleeding. MEDICATIONS: At home, albuterol inhaler p.r.n., aspirin, vitamin D with calcium, carvedilol, cyclobenzaprine, furosemide, hydralazine, isosorbide, losartan, metformin, multivitamin, pravastatin, tramadol. Medications here in the hospital include acetaminophen, albuterol inhaler, calcium with vitamin D, carvedilol, cyclobenzaprine p.r.n., furosemide, hydralazine, hydromorphone p.r.n., losartan, vitamins, Zofran, oxycodone, pravastatin, and Ambien. PAST MEDICAL HISTORY: Hypertension. History of hepatic abscess treated with percutaneous drainage. Tubal ligation. [id number] diabetes mellitus. Hypertension. Hyperlipidemia. She denies any history of [place] nor stroke. She does have COPD. SOCIAL HISTORY: She is single. She does not smoke nor use any significant amounts of alcohol. FAMILY HISTORY: Noncontributory and negative for pancreatic disease. REVIEW OF SYSTEMS: CONSTITUTIONAL: Prior to being awakened with her abdominal pain she had been feeling well with good appetite and good energy. SKIN: No rash. No pruritus. CARDIAC: No chest pain. PULMONARY: No cough. No hemoptysis. GASTROINTESTINAL: As above. URINARY: No dysuria. No hematuria. PHYSICAL EXAMINATION: GENERAL: The patient is a pleasant, alert, comfortable-appearing female. SKIN: Warm and dry. HEENT: Anicteric sclerae. Moist mucous membranes. NECK: Supple. CHEST: Clear. CARDIAC: Normal S1 and S2. ABDOMEN: Soft. Normal bowel sounds. Nondistended, nontender without organomegaly or mass. EXTREMITIES: Without edema. LABORATORY DATA: White blood cell count on admission was 8.9 and today is 13.4. Hemoglobin 12.6, which is the same as yesterday. Platelets 148,000. PT 14.6 with INR of 1.3. Normal electrolytes. BUN 6, creatinine 0.6. Total bilirubin yesterday was 2.3 and today is 1.4 with direct bilirubin of 1.0. AST yesterday was 228 and today is 167. ALT was 134 yesterday and 191 today. Alkaline phosphatase has been normal at 71 today and 67 yesterday. Albumin 3.8. Lipase was 1391 yesterday. Her abdominal ultrasound was consistent with cholelithiasis and sludge in the gallbladder with a somewhat distended gallbladder with a thickened wall at about 1.3 cm. There was associated edema and some fluid around the gallbladder. The common bile duct was 9 mm. There was no ascites. She did have an MRI of the abdomen today, which was negative for any choledocholithiasis, but did show the common duct at the upper normal size measuring about 7 or 8 mm. There was a large gallstone in the gallbladder with also some gallbladder wall thickening and edema. There is no focal hepatic lesion. Pancreas appeared unremarkable. Spleen appeared unremarkable. IMPRESSION: Given the patient's clinical history, this seems consistent with a case of resolving gallstone-induced pancreatitis. Based on the MRI results and the improving LFTs, this does not appear to represent a case of a retained stone with choledocholithiasis. It appears that she has passed a stone and/or sludge spontaneously. At this point given her excellent clinical appearance, negative MRCP in regard to a common duct stone, and improving LFTs, I do not think a preoperative ERCP is required. She has already been seen by Dr. Ruelas and is scheduled for cholecystectomy for later this week. In the meantime, I would continue supportive care and follow up laboratories tomorrow. Thank you for this consultation. Please contact me if I can be of any further assistance during the hospitalization. MD LISETTE Hernandez/JODIE / [phone] MTDD
[2021-07-14 13:33] LABS: Glucose, Whole Blood 243 mg/dL (60-115)
[2021-07-14 13:41] LABS: ABG Base Excess 16.6 mmol/L; ABG HCO3 51 mmol/L (22-26); ABG pCO2 119 mmHg (32-45); ABG pH 7.23 (7.35-7.45); ABG pO2 69 mmHg (83-108)
[2021-07-14] MEDS: acetaZOLAMIDE sodium 500 MG VIAL IVPUSH ×2 (13:53→20:57)
[2021-07-14 14:21] LABS: ABG Base Excess 15.6 mmol/L; ABG HCO3 50 mmol/L (22-26); ABG pCO2 120 mmHg (32-45); ABG pH 7.22 (7.35-7.45); ABG pO2 62 mmHg (83-108)
--- NOTE | 2021-07-14 15:26 | PM.CCN ---
Critical Care Event Note Summary Date of Service: 07/14/21 Code activated: No Narrative: 76-year-old lady with underlying obesity, NICO, obesity hyperventilation syndrome, likely COPD, admitted for acute cholecystitis, now status post cholecystectomy on 07/14/2021 with requirements for re-intubation in PACU, transferred to intensive care and extubated to BiPAP. On exam, lethargic, arousable, obeys, normotensive, O2 saturation 90% on BiPAP 30% Will continue to titrate off BiPAP support as tolerated. Will start on Diamox. Critical Care Time (minutes): 30
[2021-07-14 15:52] LABS: ABG Refer to POC result
[2021-07-14 15:52] LABS: ABG Refer to POC result
[2021-07-14 16:51] LABS: ABG Base Excess 14.2 mmol/L; ABG HCO3 48 mmol/L (22-26); ABG pCO2 113 mmHg (32-45); ABG pH 7.23 (7.35-7.45); ABG pO2 76 mmHg (83-108)
--- NOTE | 2021-07-14 19:02 | PC.NURSE ---
MD wise with o2 sat 85-90%
[2021-07-14 19:33] LABS: ABG HCO3 47 mmol/L (22-26); ABG pCO2 109 mmHg (32-45); ABG pCO2 TC 107 mmHg (32-45); ABG pH 7.24 (7.35-7.45); ABG pH TC 7.25 (7.35-7.45); ABG pO2 56 mmHg (83-108); ABG pO2 TC 55 (83-108)
[2021-07-14] MEDS: propofoL 1,000 MG/100 ML VIAL 30.62 MG IVCONT (20:00)
--- NOTE | 2021-07-14 20:09 | W.PM.CCHP ---
Procedures Date of Service Date of Service: 07/14/21 Intubation Intubation Comments: Patient with acute respiratory distress, and CO2 retention refractory to BIPAP,. Patient intubated with 7.5 cuffed ET tube under glide scope guidance with visualization of vocal cords, without immediate complications. ET tube position verified with Chest XRAY. Consent for Procedure: Emergent-no informed consent obtained Time out performed: Yes Sedative: propofol Mg given: 100 Laryngoscope: fiber optic video scope ET tube size: 7.5 ET tube uncuffed: No Tube secured location: lips Tube placement confirmation: visualized tube passing through cords, equal breath sounds bilaterally, no breath sounds over epigastrium and confirmation by capnometry Patient tolerated procedure: no complications Intubation complications: none
[2021-07-14] MEDS: propofoL 200 MG/20 ML VIAL 100 MG IVPUSH (20:57)
[2021-07-14] MEDS: Calcium + Vitamin D 250 MG TABLET 500 MG PO (20:57)
[2021-07-14] MEDS: Chlorhexidine Gluc Oral Rinse 15 ML MOUTHWASH BUCCAL (20:58)
[2021-07-14] MEDS: Pravastatin Sodium 40 MG TABLET PO (20:58)
[2021-07-14] MEDS: Insulin Lispro 100 UNIT/ML 3 ML VIAL SUBCUT (21:00)
[2021-07-14 21:01] LABS: Glucose, Whole Blood 211 mg/dL (60-115)
[2021-07-14 21:19] LABS: Venous Blood Gas Refer to POC result
[2021-07-14 21:22] LABS: VBG Base Excess 14.6 mmol/L; VBG HCO3 48 mmol/L (22-26); VBG pCO2 113 mmHg; VBG pH 7.23 (7.32-7.43); VBG pO2 35 mmHg
[2021-07-14 21:30] LABS: ABG Refer to POC result
[2021-07-14 21:30] LABS: ABG Refer to POC result
[2021-07-14] MEDS: propofoL 1,000 MG/100 ML VIAL 24.49 MG IVCONT (21:59)
[2021-07-14] MEDS: Furosemide 40 MG/4 ML VIAL IVPUSH (23:08)
[2021-07-15] VITALS (20 sets, daily range): BP systolic 104–184; BP diastolic 42–75; PULSE 60–88; RESP 18–27; TEMP 36.6–38.3; O2SAT 1–99; BMI 49.9
[2021-07-15 01:19] LABS: VBG Base Excess 17.8 mmol/L; VBG HCO3 43 mmol/L (22-26); VBG pCO2 52 mmHg; VBG pH 7.52 (7.32-7.43); VBG pO2 30 mmHg
[2021-07-15 01:39] LABS: Anion Gap 15 (12-20); Blood Urea Nitrogen 9 mg/dL (9-16); Calcium 8.8 mg/dL (8.4-10.2); Carbon Dioxide 37 mmol/L (22-29); Chloride 93 mmol/L (96-108); Creatinine Clr Calc Pharmacy 74.9; Estimated Glomerular Filt Rate > 60; Glucose Random 202 mg/dL (60-115); Potassium 3.3 mmol/L (3.3-5.1); Sodium 142 mmol/L (135-145)
[2021-07-15] MEDS: Potassium Chloride Packet 20 MEQ PACKET 60 MEQ OG-TUBE (02:14)
[2021-07-15] MEDS: propofoL 1,000 MG/100 ML VIAL 18.37 MG IVCONT (02:14)
[2021-07-15 03:02] LABS: Venous Blood Gas Refer to POC result
--- NOTE | 2021-07-15 04:45 | PC.NURSE ---
Upon initial assessment at 190- pt obtunded, arousable to sternal rub, on bipap, occasionally desaturating to 70s. ANTHROPOLOGY AND ARCHEOLOGY INSTRUCTOR aware of 1930 ABGs, decision to intubate. At 1951, pt given 100 mg IVP propofol, ETT #7.5, 23 cm at lip. EtCO2 70s. Current vent settings- PCV f20 18/5 21% FiO2, Vt 400-500s, Ve 7-9. OGT/tucker placed, pCXR done. Pt sedated on propofol gtt, titrated down as tolerated, RASS -3. Tmax 100.8 core. NSR on tele, HR 60-70s. SBP 180s, given 500 mg IVP diamox x1, 40 mg IVP lasix, UOP 350 ml/hr x3hrs. Given 60 mEq OGT KCl x1. Skin intact. aware of event and plan of care.
[2021-07-15 05:30] LABS: VBG Base Excess 12.8 mmol/L; VBG HCO3 37 mmol/L (22-26); VBG pCO2 45 mmHg; VBG pH 7.52 (7.32-7.43); VBG pO2 37 mmHg
[2021-07-15] MEDS: Pantoprazole Sodium 40 MG/10 ML VIAL IVPUSH (05:43)
[2021-07-15] MEDS: Chlorhexidine Gluc Oral Rinse 15 ML MOUTHWASH BUCCAL (05:43)
[2021-07-15] MEDS: propofoL 1,000 MG/100 ML VIAL 21.43 MG IVCONT (05:45)
[2021-07-15 05:46] LABS: MANUAL DIFF FLAG NO
[2021-07-15 05:54] LABS: Basophils Percent Auto 0.2 % (0-2); Eosinophils Percent Auto 0.1 % (0-4); Hematocrit 42.4 % (37-47); Hemoglobin 13.3 g/dl (12.0-16.0); Imm Gran Abs Auto 0.06 X10*3/uL (0.00-0.03); Imm Gran Pct Auto 0.6 % (0.0-0.4); Lymphocytes Absolute Auto 1.7 X10*3/uL (1.2-4.9); Lymphocytes Percent Auto 16.3 % (20-40); Mean Corpuscular HGB Conc 31.4 g/dl (31.0-35.0); Mean Corpuscular Hemoglobin 29.8 pg (27.0-33.0); Mean Corpuscular Volume 95.1 fL (80-98); Mean Platelet Volume 11.3 fL (9.4-12.3); Monocytes Absolute Auto 0.6 X10*3/uL (0.1-1.2); Monocytes Percent Auto 6.3 % (2-11); Neutrophils Absolute Auto 7.7 X10*3/uL (2.0-8.3); Neutrophils Percent Auto 76.5 % (45-73); Platelet Count 149 X10*3/uL (160-400); Red Blood Count 4.46 X10*6/uL (4.20-5.50); White Blood Count 10.1 X10*3/uL (4.8-10.8)
[2021-07-15 06:09] LABS: Alanine Aminotransferase 201 U/L (0-31); Alkaline Phosphatase 87 U/L (39-117); Anion Gap 16 (12-20); Aspartate Amino Transferase 76 U/L (5-31); Blood Urea Nitrogen 9 mg/dL (9-16); Calcium 9.4 mg/dL (8.4-10.2); Carbon Dioxide 33 mmol/L (22-29); Chloride 95 mmol/L (96-108); Creatinine Clr Calc Pharmacy 88.1; Estimated Glomerular Filt Rate > 60; Glucose Random 149 mg/dL (60-115); Magnesium 1.5 mg/dL (1.6-2.6); Phosphorus 1.1 mg/dL (2.7-4.5); Sodium 141 mmol/L (135-145); Total Protein 7.4 g/dL (6.5-8.0)
[2021-07-15] MEDS: Magnesium Sulfate/H2O 2 GM/50 ML PIGGYBACK IV (06:33)
[2021-07-15 06:40] LABS: Venous Blood Gas Refer to POC result
[2021-07-15] MEDS: Potassium Chloride Packet 20 MEQ PACKET 40 MEQ OG-TUBE (06:56)
[2021-07-15 07:35] LABS: Glucose, Whole Blood 138 mg/dL (60-115)
[2021-07-15] MEDS: Losartan Potassium 50 MG TABLET 100 MG PO (07:47)
[2021-07-15] MEDS: carvediloL 12.5 MG TABLET PO (07:47)
[2021-07-15] MEDS: hydrALAZINE HCl 10 MG TABLET PO ×3 (07:47→20:06)
[2021-07-15] MEDS: Furosemide 40 MG TABLET PO (07:47)
[2021-07-15] MEDS: Calcium + Vitamin D 250 MG TABLET 500 MG PO ×2 (07:47→20:07)
[2021-07-15] MEDS: Potassium Phosphate 30 MMOL in 0.9 % Sodium Chloride 500 ML 85 MMOL IV (08:05)
--- NOTE | 2021-07-15 08:09 | P.PNGS_ITS ---
Subjective Subjective Date of Service: 07/15/21 <Talya Cardoza PA-C - Last Filed: 07/15/21 08:14> 07/15/21 <Ravi Ruelas MD - Last Filed: 07/15/21 08:47> Interval history: Events: Had uncomplicated laparoscopic cholecystectomy yesterday. Extubated in OR but patient had O2 sats in 80s and was not breathing on her own requiring reintubation in OR. SHe was then transferred to ICU. Extubated later in the afternoon and put on BiPAP but required intubation last night. Her O2 sats have remained low 90s on vent. <MICHAEL Smallwood Last Thom ed: 07/15/21 08:14> Physical Exam Vital Signs: Vital Signs: Last Vital Signs Temp 100.6 F H 07/15/21 08:00 Pulse 78 07/15/21 08:00 Resp 20 07/15/21 08:00 BP 155/64 H 07/15/21 08:00 Pulse Ox 92 07/15/21 08:00 Body Mass Index 49.9 <Talya Cardoza PA-C - Last Filed: 07/15/21 08:14> Const: General: no acute distress <Talya Cardoza PA-C - Last Filed: 07/15/21 08:14> Resp: Other: on vent <Talya Cardoza PA-C - Last Filed: 07/15/21 08:14> GI: Inspection: No distended and Yes incision (dressings c/d/i) <Talya Cardoza PA-C - Last Filed: 07/15/21 08:14> Palpation (GI): Soft to palpation <Talya Cardoza PA-C - Last Filed: 07/15/21 08:14> Percussion: Yes normal to percussion <MICHAEL Smallwood Last Filed: 07/15/21 08:14> Skin: General skin exam: no rashes or lesions noted <MICHAEL Smallwood Last Filed: 07/15/21 08:14> Procedures Date of Service Date of Service: 07/15/21 <Talya Cardoza PA-C - Last Filed: 07/15/21 08:14> Progress Note: A&P Assessment and plan (1) Acute calculous cholecystitis: Status: Acute <Talya Cardoza PA-C - Last Filed: 07/15/21 08:14> (2) COPD exacerbation: Status: Acute <Talya Cardoza PA-C - Last Filed: 07/15/21 08:14> (3) Choledocholithiasis: Status: Acute <Talya Cardoza PA-C - Last Filed: 07/15/21 08:14> Assessment and Plan: 76 year old female admitted with elevated liver enzymes, acute cholecystitis. She is now POD #1 s/p lap CCY, required reintubation in OR and transferred to ICU. She remains on vent in ICU. Abdomen is benign, soft, ND, dressings c/d/i. No acute surgical issues. Remainder of care per ICU team. She does have a low grade temp. Plan is to try to extubate and trial BiPAP. <Talya Cardoza PA-C - Last Filed: 07/15/21 08:14> 76 year old female admitted with elevated liver enzymes, acute cholecystitis. She is now POD #1 s/p lap CCY, required reintubation in OR and transferred to ICU. She remains on vent in ICU. Abdomen is benign, soft, ND, dressings c/d/i. No acute surgical issues. Remainder of care per ICU team. She does have a low grade temp. Plan is to try to extubate and trial BiPAP. Patient independently evaluated and examined. I concur with the above assessment and plan. Discussed with Dr. Chawla. Will attempt extubation this morning. <Ravi Ruelas MD - Last Filed: 07/15/21 08:47> Fall Risk Details Current Medications: Current Medications Acetaminophen (Acetaminophen 325 Mg Tablet) 650 mg PO QID PRN PRN Reason: headache, temp > 101 Last Admin: 07/14/21 04:55 Dose: 650 mg Documented by: Albuterol Sulfate (Albuterol Sulfate 90 Mcg 8 Gm Inhaler) 2 puff INHALE Q6H PRN PRN Reason: Wheezing Calcium Carbonate/Cholecalciferol (Calcium + Vitamin D 250 Mg Tablet) 500 mg PO BID TIMOTHY Last Admin: 07/15/21 07:47 Dose: 500 mg Documented by: Carvedilol (Carvedilol 12.5 Mg Tablet) 12.5 mg PO BID [facility]; Protocol Last Admin: 07/15/21 07:47 Dose: 12.5 mg Documented by: Chlorhexidine Gluconate (Chlorhexidine Gluc Oral Rinse 15 Ml Mouthwash) 15 ml BUCCAL Q8H TIMOTHY Last Admin: 07/15/21 05:43 Dose: 15 ml Documented by: Furosemide (Furosemide 40 Mg Tablet) 40 mg PO DAILY [facility]; Protocol Last Admin: 07/15/21 07:47 Dose: 40 mg Documented by: Hydralazine HCl (Hydralazine Hcl 10 Mg Tablet) 10 mg PO TID [facility]; Protocol Last Admin: 07/15/21 07:47 Dose: 10 mg Documented by: Propofol (Diprivan) 1,000 mg in 100 mls @ 0 mls/hr IVCONT .Q0M [facility]; Protocol Last Titration: 07/15/21 07:59 Dose: 0 mcg/kg/min, 0 mls/hr Documented by: Potassium Phosphate 30 mmol/ (Sodium Chloride) 510 mls @ 85 mls/hr IV ONCE ONE Stop: 07/15/21 12:59 Magnesium Sulfate (Magnesium Sulfate/H2o) 2 gm in 50 mls @ 25 mls/hr IV ONCE ONE Stop: 07/15/21 08:59 Last Admin: 07/15/21 06:33 Dose: 25 mls/hr Documented by: Insulin Human Lispro (Insulin Lispro 100 Unit/Ml 3 Ml Vial) 0 unit SUBCUT QIDACHS [facility]; Protocol Last Admin: 07/15/21 07:51 Dose: Not Given Documented by: Losartan Potassium (Losartan Potassium 50 Mg Tablet) 100 mg PO DAILY [facility]; Protocol Last Admin: 07/15/21 07:47 Dose: 100 mg Documented by: Multivitamins/Vitamin C (Multivitamin Tablet) 1 tab PO DAILY [facility] Last Admin: 07/15/21 07:52 Dose: Not Given Documented by: Non-Formulary Medication (Isosorbide Mononitrate) 20 mg PO DAILY [facility] Ondansetron HCl (Ondansetron Hcl 4 Mg/2 Ml Vial) 4 mg IVPUSH QID PRN PRN Reason: Nausea Pantoprazole Sodium (Pantoprazole Sodium 40 Mg/10 Ml Vial) 40 mg IVPUSH DAILY@0630 [facility] Last Admin: 07/15/21 05:43 Dose: 40 mg Documented by: Pravastatin Sodium (Pravastatin Sodium 40 Mg Tablet) 40 mg PO BEDTIME [facility] Last Admin: 07/14/21 20:58 Dose: 40 mg Documented by: Sodium Chloride (0.9 % Sodium Chloride Flush 3 Ml Syringe) 3 ml IVFLUSH QSHIFT [facility] Last Admin: 07/15/21 07:52 Dose: Not Given Documented by: <Talya Cardoza PA-C - Last Filed: 07/15/21 08:14> Time Spent With Patient Time: Total time spent is greater than 50% in coordination of care (as documented) at patient's floor/unit and/or counseling patient: <Talya Cardoza PA-C - Last Filed: 07/15/21 08:14> Time with patient: less than 15 minutes <Talya Cardoza PA-C - Last Filed: 07/15/21 08:14> Quality Stroke Does the patient have a stroke diagnosis?: No <Talya Cardoza PA-C - Last Filed: 07/15/21 08:14> VTE Prior VTE?: No <Talya Cardoza PA-C - Last Filed: 07/15/21 08:14> VTE Risk Level:: Surgical - moderate <Talya Cardoza PA-C - Last Filed: 07/15/21 08:14> VTE Device Contraindication: N/A - Device Ordered <MICHAEL Smallwood Last Filed: 07/15/21 08:14> VTE Drug Contraindication: Treatment Not Indicated <Talya Cardoza PA-C - Last Filed: 07/15/21 08:14>
--- NOTE | 2021-07-15 10:57 | P.PNCC_ITS ---
Subjective Subjective Date of Service: 07/15/21 Interval History: 76-year-old lady with underlying history of morbid obesity, obstructive sleep apnea, obesity [id number] syndrome, hypertension, diabetes mellitus admitted on 07/12/2021 with abdominal pain secondary to choledocholithiasis/cholecystitis requiring laparoscopic cholecystectomy on 07/14/2021. Postop course significant for necessity to reintubate secondary to acute hypercapnia and hypoxia. Patient transferred to intensive care unit from OR and extubated in several hours to BiPAP. Patient persisted with hypoxia and significant CO2 retention likely secondary to poor metabolism of sedative agents possible intravascular overload. She was re-intubated at around 8:00 p.m. on 07/14/2021. Patient was diuresed with Diamox and Lasix and extubated uneventfully on 07/15/2021 at 8 a.m. Critical Care Time (minutes): 45 Physical Exam Vital Signs: Vital Signs: Last Vital Signs Temp 99.3 F 07/15/21 09:00 Pulse 84 07/15/21 09:00 Resp 27 H 07/15/21 09:00 BP 111/53 L 07/15/21 09:00 Pulse Ox 96 07/15/21 09:00 Body Mass Index 49.9 Const: General: no acute distress, alert and awake Nutritional Appearance: obese Eyes: Sclerae: sclerae normal EOM: EOMs intact bilaterally Neck: Neck: Yes no lymphadenopathy, Yes trachea midline and Yes supple Resp: Effort & Inspection: normal respiratory effort and no respiratory distress Auscultation: clear to auscultation bilaterally Cardio: Rate: regular rate Rhythm: regular rhythm Heart sounds: no gallops, no murmurs and no rubs GI: Inspection: Yes other (Laparoscopy sites dressings without hematoma) Palpation (GI): Soft to palpation and Other GI palpation findings present ( Nontender) Auscultation: normal bowel sounds Extrem: General: No clubbing, No cyanosis and Yes pedal edema (2+ bilateral) Objective Data Labs CBC & Chem 7: 07/15/21 05:21 07/15/21 05:21 Labs: Laboratory Results - last 24 hr 07/14/21 07/14/21 07/14/21 11:00 13:28 13:36 WBC RBC Hgb Hct MCV MCH MCHC RDW Plt Count MPV Immature Gran % (Auto) Neut % (Auto) Lymph % (Auto) [place] % (Auto) Eos % (Auto) Baso % (Auto) Lymph # (Auto) [place] # (Auto) Eos # (Auto) Baso # (Auto) Abs Immat Gran (auto) Absolute Neuts (auto) Absolute Nucleated RBC Nucleated RBC % (auto) O2 Saturation 87.0 ABG pH at Pt Temp 7.23 L ABG pH (Temp Correct) ABG pCO2 at Pt Temp 119 H* ABG pCO2 (Temp Corrct ABG pO2 at Pt Temp 69 L ABG pO2 (Temp Correct ABG HCO3 51 H ABG Base Excess (Actual) 16.6 VBG pH VBG pCO2 VBG pO2 VBG HCO3 VBG O2 Saturation VBG Base Excess Sodium Potassium Chloride Carbon Dioxide Anion Gap BUN Creatinine Estim Creat Clear Calc Estimated GFR POC Glucose 192 H 243 H Random Glucose Calcium Phosphorus Magnesium Total Bilirubin AST ALT Alkaline Phosphatase Total Protein Albumin 07/14/21 07/14/21 07/14/21 14:15 16:45 19:27 WBC RBC Hgb Hct MCV MCH MCHC RDW Plt Count MPV Immature Gran % (Auto) Neut % (Auto) Lymph % (Auto) [place] % (Auto) Eos % (Auto) Baso % (Auto) Lymph # (Auto) [place] # (Auto) Eos # (Auto) Baso # (Auto) Abs Immat Gran (auto) Absolute Neuts (auto) Absolute Nucleated RBC Nucleated RBC % (auto) O2 Saturation 82.0 91.0 79.0 ABG pH at Pt Temp 7.22 L 7.23 L 7.24 L ABG pH (Temp Correct) 7.25 L ABG pCO2 at Pt Temp 120 H* 113 H* 109 H* ABG pCO2 (Temp Corrct 107 H* ABG pO2 at Pt Temp 62 L 76 L 56 L ABG pO2 (Temp Correct 55 L ABG HCO3 50 H 48 H 47 H ABG Base Excess (Actual) 15.6 14.2 14.0 VBG pH VBG pCO2 VBG pO2 VBG HCO3 VBG O2 Saturation VBG Base Excess Sodium Potassium Chloride Carbon Dioxide Anion Gap BUN Creatinine Estim Creat Clear Calc Estimated GFR POC Glucose Random Glucose Calcium Phosphorus Magnesium Total Bilirubin AST ALT Alkaline Phosphatase Total Protein Albumin 07/14/21 07/14/21 07/15/21 20:57 21:15 01:13 WBC RBC Hgb Hct MCV MCH MCHC RDW Plt Count MPV Immature Gran % (Auto) Neut % (Auto) Lymph % (Auto) [place] % (Auto) Eos % (Auto) Baso % (Auto) Lymph # (Auto) [place] # (Auto) Eos # (Auto) Baso # (Auto) Abs Immat Gran (auto) Absolute Neuts (auto) Absolute Nucleated RBC Nucleated RBC % (auto) O2 Saturation ABG pH at Pt Temp ABG pH (Temp Correct) ABG pCO2 at Pt Temp ABG pCO2 (Temp Corrct ABG pO2 at Pt Temp ABG pO2 (Temp Correct ABG HCO3 ABG Base Excess (Actual) VBG pH 7.23 L 7.52 H VBG pCO2 113 52 VBG pO2 35 30 VBG HCO3 48 H 43 H VBG O2 Saturation 37.0 50.0 VBG Base Excess 14.6 17.8 Sodium Potassium Chloride Carbon Dioxide Anion Gap BUN Creatinine Estim Creat Clear Calc Estimated GFR POC Glucose 211 H Random Glucose Calcium Phosphorus Magnesium Total Bilirubin AST ALT Alkaline Phosphatase Total Protein Albumin 07/15/21 07/15/21 07/15/21 01:14 05:21 05:21 WBC 10.1 RBC 4.46 Hgb 13.3 Hct 42.4 MCV 95.1 MCH 29.8 MCHC 31.4 RDW 12.0 Plt Count 149 L MPV 11.3 Immature Gran % (Auto) 0.6 H Neut % (Auto) 76.5 H Lymph % (Auto) 16.3 L [place] % (Auto) 6.3 Eos % (Auto) 0.1 Baso % (Auto) 0.2 Lymph # (Auto) 1.7 [place] # (Auto) 0.6 Eos # (Auto) 0.0 Baso # (Auto) 0.0 Abs Immat Gran (auto) 0.06 H Absolute Neuts (auto) 7.7 Absolute Nucleated RBC 0.000 Nucleated RBC % (auto) 0.0 O2 Saturation ABG pH at Pt Temp ABG pH (Temp Correct) ABG pCO2 at Pt Temp ABG pCO2 (Temp Corrct ABG pO2 at Pt Temp ABG pO2 (Temp Correct ABG HCO3 ABG Base Excess (Actual) VBG pH VBG pCO2 VBG pO2 VBG HCO3 VBG O2 Saturation VBG Base Excess Sodium 142 141 Potassium 3.3 3.0 L Chloride 93 L 95 L Carbon Dioxide 37 H 33 H Anion Gap 15 16 BUN 9 9 Creatinine 0.74 0.72 Estim Creat Clear Calc 74.9 88.1 Estimated GFR > 60 > 60 POC Glucose Random Glucose 202 H 149 H Calcium 8.8 9.4 D Phosphorus 1.1 L Magnesium 1.5 L Total Bilirubin 1.0 AST 76 H ALT 201 H Alkaline Phosphatase 87 Total Protein 7.4 Albumin 4.0 07/15/21 07/15/21 05:24 07:32 WBC RBC Hgb Hct MCV MCH MCHC RDW Plt Count MPV Immature Gran % (Auto) Neut % (Auto) Lymph % (Auto) [place] % (Auto) Eos % (Auto) Baso % (Auto) Lymph # (Auto) [place] # (Auto) Eos # (Auto) Baso # (Auto) Abs Immat Gran (auto) Absolute Neuts (auto) Absolute Nucleated RBC Nucleated RBC % (auto) O2 Saturation ABG pH at Pt Temp ABG pH (Temp Correct) ABG pCO2 at Pt Temp ABG pCO2 (Temp Corrct ABG pO2 at Pt Temp ABG pO2 (Temp Correct ABG HCO3 ABG Base Excess (Actual) VBG pH 7.52 H VBG pCO2 45 VBG pO2 37 VBG HCO3 37 H VBG O2 Saturation 65.0 VBG Base Excess 12.8 Sodium Potassium Chloride Carbon Dioxide Anion Gap BUN Creatinine Estim Creat Clear Calc Estimated GFR POC Glucose 138 H Random Glucose Calcium Phosphorus Magnesium Total Bilirubin AST ALT Alkaline Phosphatase Total Protein Albumin Microbiology Microbiology Results: Microbiology 07/12/21 13:06 Blood - Venous Blood Culture - Preliminary No growth after 48 hours. 07/12/21 13:10 Blood - Venous Blood Culture - Preliminary No growth after 48 hours. Quality Stroke Does the patient have a stroke diagnosis?: No VTE Prior VTE?: No VTE Risk Level:: Surgical - moderate VTE Device Contraindication: N/A - Device Ordered VTE Drug Contraindication: Treatment Not Indicated Progress Note: A&P Assessment and plan (1) Acute respiratory failure with hypoxia and hypercapnia: Status: Acute (2) Diabetes mellitus: Status: Acute (3) Choledocholithiasis: Status: Acute (4) Acute calculous cholecystitis: Status: Acute (5) NICO (obstructive sleep apnea): Status: Acute (6) Obesity hypoventilation syndrome: Status: Acute Assessment and Plan: Assessment: 76-year-old lady with underlying morbid obesity, obstructive sleep apnea, obesity hypoventilation syndrome admitted on 07/12/2021 with abdominal pain secondary to choledocholithiasis/cholecystitis, status post laparoscopic cholecystectomy on 07/14/2021 complicated by postop acute hypoxia and hypercapnia requiring re-intubation, extubated 07/15/2021 Plan: Neuro: No acute issues. Cardiac: Likely exacerbation of underlying right-sided versus diastolic congestive heart failure, improved with diuresis. Continue with gentle diuresis. 2D echocardiogram is pending. Underlying hypertension. Pulmonary: Acute postoperative hypoxia and hypercapnia requiring re-intubation, extubated on 07/15/2021. Underlying obstructive sleep apnea and obesity hyperventilation syndrome. Renal: No acute issues. Endo: No acute issues. Underlying diabetes mellitus. GI: Choledocholithiasis/cholecystitis status post laparoscopic cholecystectomy. General surgery service care appreciated. ID: No acute issues Heme/Onc: No acute issues. Psych: No acute issues. Miscellaneous: No acute issues. Prophylaxis: Pneumatic compression Diet: Regular Critical care time spent: 45 minutes
--- NOTE | 2021-07-15 11:17 | PC.NURSE ---
Addendum entered by Gladys Flores RN 07/15/21 17:42: tucker removed 1600, DTV [id number] Original Note: Propofol turned off at 0759, Pt extuabted at 0810 and placed on 2 L NC. Able to titrate down to 1L NC. Pt a&o to self and hospital . Able to male needs known. LS clear, good cough. Occasionally desats to low 80s, pt recovers quickly. Pt downgraded to [facility] level of care
[2021-07-15 11:37] LABS: Glucose, Whole Blood 144 mg/dL (60-115)
--- NOTE | 2021-07-15 12:00 | CA_ITS ---
Transthoracic Echocardiogram Patient (Last, First, Middle): Magalie Live M Gender: Female Date of : 1945 Age: 76 Procedure Date: 07/15/2021 Procedure Type: Transthoracic Echocardiogram Location: ICU Height: 160.02 cm Weight: 127.92 kg BSA: 2.24 m2 Heart Rate: bpm BP: 111 / 53 mmHg Helicopter Pilot: SIGRID Referring MD: Stephane Chawla MD Symptoms: CHF Study Quality: Fair Conclusions: - Normal left ventricular size and systolic function. - There is mildly increased left ventricular wall thickness. - E/E prime ratio is between 8 and 15 consistent with indeterminate filling pressures. - Normal right ventricular cavity size and systolic function. - The left atrium is mildly dilated. - Significantly elevated right atrial pressure. Moderate pulmonary hypertension is present. - There is mild dilatation of the ascending aorta measuring 3.50 cm. Findings Left Ventricle Normal left ventricular size and systolic function. There is mildly increased left ventricular wall thickness. The visually estimated ejection fraction is between 60-65%. There is no evidence of regional wall motion abnormalities. Abnormal diastolic function is noted. Spectral Doppler is indicative of an impaired relaxation filling pattern. E/E prime ratio is between 8 and 15 consistent with indeterminate filling pressures. Right Ventricle Normal right ventricular cavity size and systolic function. Atria The left atrium is mildly dilated. The right atrium is normal in size. Aortic Valve Normal aortic valve structure and function. There is no aortic valve stenosis. There is no aortic valve regurgitation. Mitral Valve Normal mitral valve structure and function. There is no mitral valve regurgitation. There is no mitral valve stenosis. Pulmonic Valve The pulmonic valve is likely normal. Tricuspid Valve Normal tricuspid valve structure. There is trace tricuspid valve regurgitation. Significantly elevated right atrial pressure. Moderate pulmonary hypertension is present. Great Vessels There is mild dilatation of the ascending aorta measuring 3.50 cm. The visualized portions of the pulmonary artery and branches are normal. Venous The inferior vena cava is dilated and does not collapse with inspiration. Pericardium/Pleural Normal pericardial structure. There is no evidence of pericardial effusion. Prior Study Comparison Changes noted compared to prior study dated: 09/08/2016. Elevated RA and PASP. Mildly dilated aorta 3.5 cm. Measurements 2D Linear Measurements IVSd: 1.07 0.6-0.9/0.6-1.0 cm LVIDd: 4.05 3.9-5.3/4.2-5.9 cm LVIDd Index: 1.81 2.4-3.2/2.2-3.1 cm/m2 LVIDs: 2.84 2.0-3.6 cm LVPWd: 0.97 0.7-1.1 cm Ao Root: 3.00 2.1-3.5 cm LA Diam: 3.10 2.7-3.8/3.0-4.0 cm LAIDs Index: 1.38 1.5-2.3 cm/m2 LV Mass: 165.58 67-162/88-224 g LV Mass Index: 73.92 43-95/49-115 g/m2 LVOT Diam: 2.00 3.0+(-)1.3 cm 2D Systolic Function EF 4C: 63.30 >55% EF 2C: 59.60 >55% EF BiP: 61.70 >55% Mitral Valve MV Pk E: 0.85 MV PK A: 1.00 MV Decel Time: 233.00 E/A: 0.80 E'Lateral: 10.30 E'Medial: 7.29 E/E' Med: 11.60 E/E' Lat: 8.20 PHT: 68.00 MVA PHT: 3.24 Decel Sully: 3.63 Aortic Valve AoV Pk Camron: 1.76 AoV Mn Camron: 1.14 AoV VTI: 0.37 AoV Pk Grad: 12.00 Aov Mn Grad: 6.00 ALEX Cont.VTI: 2.21 LVOT LVOT Pk Camron: 1.25 LVOT Mn Camron: 0.76 LVOT VTI: 0.26 LVOT Pk Grad: 6.00 LVOT Mn Grad: 3.00 LVOT Diam: 2.00 LVOT Area: 3.14 Diastolic Function MV Pk E: 0.85 MV Pk A: 1.00 E/A: 0.80 E'Medial: 7.29 E/E' Med: 11.60 E' Laterial: 10.30 E/E' Lat: 8.20 Right Ventricle TAPSE (mm): 2.30 TVS' Camron: 12.30 Tricuspid Valve TR Pk Camron: 3.16 TR Pk Grad: 40.00 RA Press: 15.00 RVSP: 55.00 Great Vessels Aorta Ao Root-2D: 3.00 2.0-3.7 cm Ao Asc: 3.50 2.1-3.4 cm Updated in Other Vendor System with Status of Final Jake Veliz MD electronically signed on 07/15/2021 12:50:26 PM with status of Final
--- NOTE | 2021-07-15 13:55 | HO.POSTANES ---
Post Anesthesia Evaluation Post Anesthesia Evaluation Vital Signs: Vital Signs Temp Pulse Resp BP Pulse Ox 07/15/21 12:00 99.0 F 73 24 H 104/42 L 96 07/15/21 09:00 99.3 F 84 27 H 111/53 L 96 07/15/21 08:00 100.6 F H 78 20 155/64 H 92 07/15/21 07:47 88 145/64 H 07/15/21 07:00 100.8 F H 71 20 145/64 H 92 07/15/21 06:00 100.9 F H 70 20 132/53 L 93 07/15/21 05:42 100.9 F H 07/15/21 05:00 100.8 F H 69 20 141/52 H 95 07/15/21 04:45 100.6 F H 07/15/21 04:00 100.4 F 65 20 121/42 L 07/15/21 03:00 100.4 F 66 20 177/71 H 96 07/15/21 02:00 100.2 F 76 20 177/74 H 93 Anesthesia: General Endotracheal-GETA Mental Status: Awake Pain Control: Satisfactory Nausea/Vomiting: None Hydration: Adequate Comments: 76 yo femlae patient s/p lap latanya with COPD on home O2 and obesity hypoventilation syndrome. Apparently very somnolent post 1mg versed pre-op and obstructed respiration. Following intubation, CO2 in 90s to 100s. CO2 controlled intra-op with PPV but very minimal respiratory effort post-op despite reversal of anesthetic agents and partial reversal of stephy-op analgesics. Only received 100mcg of fentanyl. At some point seemed awake enough to extubate-sustained head lift and reaching for ETT. Was extubated but rapidly desaturated with significant hypercapnia and minimal respiratory efforts. Was re-intubated and transferred to ICU where she was finally extubated today following extubation and re-intubation yesterday evening. Stable for now.
[2021-07-15] MEDS: 0.9 % Sodium Chloride Flush 3 ML SYRINGE IVFLUSH ×2 (15:42→23:27)
--- NOTE | 2021-07-15 16:11 | MHC.CM.PN ---
Pt transferred to ICU on 07/14 following cholecystitis requiring intubation. Pt successfully extubated this am and on minimal n/c O2. Per MD, the plan is to transfer her to [facility] when a bed is available. D/C plan was to return home with [employer] and [facility] provided RN. Her cousin will provide transportation. CM to follow for finalization of d/c planning.
[2021-07-15] MEDS: Acetaminophen 325 MG TABLET 650 MG PO (16:26)
[2021-07-15 16:40] LABS: Glucose, Whole Blood 152 mg/dL (60-115)
[2021-07-15] MEDS: Insulin Lispro 100 UNIT/ML 3 ML VIAL SUBCUT ×2 (17:39→20:07)
[2021-07-15 19:57] LABS: Glucose, Whole Blood 205 mg/dL (60-115)
[2021-07-16] VITALS (11 sets, daily range): BP systolic 144–168; BP diastolic 67–90; PULSE 63–86; RESP 17–24; TEMP 36.1–37.1; O2SAT 89–99
[2021-07-16] MEDS: Acetaminophen 325 MG TABLET 650 MG PO ×2 (00:53→22:43)
--- NOTE | 2021-07-16 02:33 | PC.NURSE ---
CARE ASSUMED 23:15....OOB IN RECLINER & SLEEPING...O2 1 L/M VIA CANNULA...ETCO2 64-68...SAO2 93-95%...EPISODIC DECREASED SAO2 T0 81-84%...HISTORY NICO...AWAKENED...ASYMPTOMATIC..MENTATING APPROPRIATELY...HOSPITALIST AND ICU DINING ROOM CAPTAIN UPDATED...NOCTURNAL CPAP ORDERED...INITIALYY PLACED CPAP 8CM & O2 1 L/M...PATIENT REMOVED CPAP AFTER 20 ...VESSEL SCRAPPER PRESENT AND EXPLAINED RATIONALE FOR CPAP AT NIGHT..PATIENT C/O THE PRESSURE IS TO MUCH ...RT PRESENT AND CHANGED CPAP TO 5CM...TYLENOL FOR C/O MILD HEADACHE...RESTFUL ON CPAP 5CM & O2 1 L/M...CURRENTLY DOZING...PURWIK CATHETER COLLECTING JODY-YELLOW URINE
[2021-07-16 08:28] LABS: Glucose, Whole Blood 127 mg/dL (60-115)
--- NOTE | 2021-07-16 09:46 | P.PNIM_ITS ---
Subjective Subjective Date of Service: 07/16/21 Interval History: F/u cholecystis, respriatory failure after surgery and was in ICU overnight, she is better, no respiratory distress and has no pain tolerating diet. Review of Systems no feve no sob no abd pain Physical Exam Vital Signs: Vital Signs: Last Vital Signs Temp 97.8 F 07/16/21 03:08 Pulse 68 07/16/21 03:08 Resp 18 07/16/21 03:08 BP 157/78 H 07/16/21 03:08 Pulse Ox 92 07/16/21 03:08 Body Mass Index 49.9 General: AO X 3, no acute distress Resp: clear gege, normal effort CVS: S1,S2,RRR GI: ND, NT, +BS Skin: No rash Neuro: motor grossly intact Psych: appropriate affect Objective Data Active Medications Acetaminophen (Acetaminophen 325 Mg Tablet) 650 mg PO QID PRN PRN Reason: headache, temp > 101 Last Admin: 07/16/21 00:53 Dose: 650 mg Documented by: JOHNNY Albuterol Sulfate (Albuterol Sulfate 90 Mcg 8 Gm Inhaler) 2 puff INHALE Q6H PRN PRN Reason: Wheezing Calcium Carbonate/Cholecalciferol (Calcium + Vitamin D 250 Mg Tablet) 500 mg PO BID [facility] Last Admin: 07/15/21 20:07 Dose: 500 mg Documented by: MOY Furosemide (Furosemide 40 Mg Tablet) 40 mg PO DAILY [facility]; Protocol Last Admin: 07/15/21 07:47 Dose: 40 mg Documented by: ANGEL Hydralazine HCl (Hydralazine Hcl 10 Mg Tablet) 10 mg PO TID [facility]; Protocol Last Admin: 07/15/21 20:06 Dose: 10 mg Documented by: MOY Insulin Human Lispro (Insulin Lispro 100 Unit/Ml 3 Ml Vial) 0 unit SUBCUT QIDACHS [facility]; Protocol Last Admin: 07/16/21 08:34 Dose: Not Given Documented by: MICHELE Non-Admin Reason: No Insulin Coverage Ondansetron HCl (Ondansetron Hcl 4 Mg/2 Ml Vial) 4 mg IVPUSH QID PRN PRN Reason: Nausea Sodium Chloride (0.9 % Sodium Chloride Flush 3 Ml Syringe) 3 ml IVFLUSH QSHIFT [facility] Last Admin: 07/15/21 23:27 Dose: 3 ml Documented by: JOHNNY Labs CBC & Chem 7: 07/15/21 05:21 07/15/21 05:21 Labs: Laboratory Results - last 24 hr 07/15/21 07/15/21 07/15/21 11:33 16:36 19:54 POC Glucose 144 H 152 H 205 H 07/16/21 07:47 POC Glucose 127 H Assessment and Plan (1) Obesity hypoventilation syndrome: Status: Acute (2) NICO (obstructive sleep apnea): Status: Acute (3) Acute respiratory failure with hypoxia and hypercapnia: Status: Acute (4) Diabetes mellitus: Status: Acute (5) Choledocholithiasis: Status: Acute Assessment and Plan: 76/F with morbid obesity, NICO, hypoventilation HLD, HTN, Diabetes, COPD here with acute choledocholithiasis and acute cholecystitis and underwent Lap Choley on 07/14/21 with post op respiratory failure and was intubated in ICU overnight and extubated the next day and transitioned to BiPAP--presently doing well 1/Choledocholithiasis/Cholecystitis -Treated with Zosyn before surgery -CCYon 07/14/21, post op management by surgery 3/Diabetes--resume Metformin, continue SSI 4/HTN--Continue Losartan, Coreg, 5/COPD--no exacerbation, bronchodilators PRN 6OSA/Hypoventilation--CPAP at night 7/HypOkalemia, recheck lab today and and replete PRN 8/Paracetamol PRN for headache 9/Probably chronic diastolic heart failure--continue Lasix PT eval for discharge planning Quality Stroke Does the patient have a stroke diagnosis?: No VTE Prior VTE?: No VTE Risk Level:: Surgical - moderate VTE Device Contraindication: N/A - Device Ordered VTE Drug Contraindication: Treatment Not Indicated
[2021-07-16] MEDS: Furosemide 40 MG TABLET PO (09:59)
[2021-07-16] MEDS: hydrALAZINE HCl 10 MG TABLET PO ×3 (09:59→22:03)
[2021-07-16] MEDS: Calcium + Vitamin D 250 MG TABLET 500 MG PO ×2 (10:00→22:02)
[2021-07-16] MEDS: 0.9 % Sodium Chloride Flush 3 ML SYRINGE IVFLUSH ×2 (10:00→15:37)
--- NOTE | 2021-07-16 10:59 | PM.PNGS ---
Subjective Subjective Date of Service: 07/16/21 Interval history: Says she feels well Good GI function Denies significant pain Physical Exam Vital Signs: Vital Signs: Last Vital Signs Temp 98.7 F 07/16/21 08:00 Pulse 71 07/16/21 08:00 Resp 18 07/16/21 08:00 BP 168/88 H 07/16/21 08:00 Pulse Ox 94 07/16/21 09:56 Body Mass Index 49.9 Const: General: comfortable and no acute distress Resp: Effort & Inspection: normal respiratory effort GI: Other: Abdomen soft, incisions clean and dry Procedures Date of Service Date of Service: 07/16/21 Progress Note: A&P Assessment and plan (1) Acute calculous cholecystitis: Status: Acute Assessment and Plan: Status post laparoscopic cholecystectomy Patient is doing very well after extubation yesterday Good GI function Okay to DC home from surgical standpoint and should follow up with Dr. Suraj Cuadra to shower The rest of management as per hospitalist service Fall Risk Details Current Medications: Current Medications Acetaminophen (Acetaminophen 325 Mg Tablet) 650 mg PO QID PRN PRN Reason: headache, temp > 101 Last Admin: 07/16/21 00:53 Dose: 650 mg Documented by: Albuterol Sulfate (Albuterol Sulfate 90 Mcg 8 Gm Inhaler) 2 puff INHALE Q6H PRN PRN Reason: Wheezing Calcium Carbonate/Cholecalciferol (Calcium + Vitamin D 250 Mg Tablet) 500 mg PO BID [facility] Last Admin: 07/16/21 10:00 Dose: 500 mg Documented by: Furosemide (Furosemide 40 Mg Tablet) 40 mg PO DAILY [facility]; Protocol Last Admin: 07/16/21 09:59 Dose: 40 mg Documented by: Hydralazine HCl (Hydralazine Hcl 10 Mg Tablet) 10 mg PO TID [facility]; Protocol Last Admin: 07/16/21 09:59 Dose: 10 mg Documented by: Insulin Human Lispro (Insulin Lispro 100 Unit/Ml 3 Ml Vial) 0 unit SUBCUT QIDACHS [facility]; Protocol Last Admin: 07/16/21 08:34 Dose: Not Given Documented by: Ondansetron HCl (Ondansetron Hcl 4 Mg/2 Ml Vial) 4 mg IVPUSH QID PRN PRN Reason: Nausea Sodium Chloride (0.9 % Sodium Chloride Flush 3 Ml Syringe) 3 ml IVFLUSH QSHIFT [facility] Last Admin: 07/16/21 10:00 Dose: 3 ml Documented by: Time Spent With Patient Time: Total time spent is greater than 50% in coordination of care (as documented) at patient's floor/unit and/or counseling patient: Time with patient: 15 - 24 minutes Quality Stroke Does the patient have a stroke diagnosis?: No VTE Prior VTE?: No VTE Risk Level:: Surgical - moderate VTE Device Contraindication: N/A - Device Ordered VTE Drug Contraindication: Treatment Not Indicated
[2021-07-16 12:23] LABS: Glucose, Whole Blood 231 mg/dL (60-115)
[2021-07-16] MEDS: Insulin Lispro 100 UNIT/ML 3 ML VIAL SUBCUT ×3 (12:27→22:03)
[2021-07-16 16:41] LABS: Glucose, Whole Blood 202 mg/dL (60-115)
[2021-07-16 20:45] LABS: Glucose, Whole Blood 199 mg/dL (60-115)
[2021-07-16] MEDS: ondansetron HCL 4 MG/2 ML VIAL IVPUSH (22:02)
[2021-07-17] VITALS (8 sets, daily range): BP systolic 138–168; BP diastolic 70–86; PULSE 70–93; RESP 16–18; TEMP 36–36.6; O2SAT 90–98; BMI 47.0
[2021-07-17] MEDS: diphenhydrAMINE HCL 25 MG TABLET PO (00:06)
[2021-07-17] MEDS: 0.9 % Sodium Chloride Flush 3 ML SYRINGE IVFLUSH ×4 (01:10→20:59)
[2021-07-17 07:53] LABS: Glucose, Whole Blood 142 mg/dL (60-115)
[2021-07-17] MEDS: Furosemide 40 MG TABLET PO (08:53)
[2021-07-17] MEDS: hydrALAZINE HCl 10 MG TABLET PO ×3 (08:53→20:59)
[2021-07-17] MEDS: Calcium + Vitamin D 250 MG TABLET 500 MG PO ×2 (08:53→20:59)
--- NOTE | 2021-07-17 11:22 | PM.PNGS ---
Subjective Subjective Date of Service: 07/17/21 Interval history: Denies complaints Good oral intake No events reported Physical Exam Vital Signs: Vital Signs: Last Vital Signs Temp 97.6 F 07/17/21 07:28 Pulse 74 07/17/21 07:28 Resp 18 07/17/21 07:28 BP 168/82 H 07/17/21 07:28 Pulse Ox 96 07/17/21 07:28 Body Mass Index 47.0 Const: General: comfortable and no acute distress Eyes: Sclerae: sclerae normal Resp: Effort & Inspection: normal respiratory effort GI: Other: Soft, incisions clean and dry Procedures Date of Service Date of Service: 07/17/21 Progress Note: A&P Assessment and plan (1) Acute calculous cholecystitis: Status: Acute Assessment and Plan: Status post laparoscopic cholecystectomy Doing well Respiratory status remained stable after extubation Good GI function Okay to DC home from surgical standpoint Fall Risk Details Current Medications: Current Medications Acetaminophen (Acetaminophen 325 Mg Tablet) 650 mg PO QID PRN PRN Reason: headache, temp > 101 Last Admin: 07/16/21 22:43 Dose: 650 mg Documented by: Albuterol Sulfate (Albuterol Sulfate 90 Mcg 8 Gm Inhaler) 2 puff INHALE Q6H PRN PRN Reason: Wheezing Calcium Carbonate/Cholecalciferol (Calcium + Vitamin D 250 Mg Tablet) 500 mg PO BID [facility] Last Admin: 07/17/21 08:53 Dose: 500 mg Documented by: Furosemide (Furosemide 40 Mg Tablet) 40 mg PO DAILY [facility]; Protocol Last Admin: 07/17/21 08:53 Dose: 40 mg Documented by: Hydralazine HCl (Hydralazine Hcl 10 Mg Tablet) 10 mg PO TID [facility]; Protocol Last Admin: 07/17/21 08:53 Dose: 10 mg Documented by: Insulin Human Lispro (Insulin Lispro 100 Unit/Ml 3 Ml Vial) 0 unit SUBCUT QIDACHS [facility]; Protocol Last Admin: 07/17/21 07:55 Dose: Not Given Documented by: Ondansetron HCl (Ondansetron Hcl 4 Mg/2 Ml Vial) 4 mg IVPUSH QID PRN PRN Reason: Nausea Last Admin: 07/16/21 22:02 Dose: 4 mg Documented by: Sodium Chloride (0.9 % Sodium Chloride Flush 3 Ml Syringe) 3 ml IVFLUSH QSHIFT [facility] Last Admin: 07/17/21 08:55 Dose: 3 ml Documented by: Time Spent With Patient Time: Total time spent is greater than 50% in coordination of care (as documented) at patient's floor/unit and/or counseling patient: Time with patient: 15 - 24 minutes Quality Stroke Does the patient have a stroke diagnosis?: No VTE Prior VTE?: No VTE Risk Level:: Surgical - moderate VTE Device Contraindication: N/A - Device Ordered VTE Drug Contraindication: Treatment Not Indicated
[2021-07-17 12:03] LABS: Glucose, Whole Blood 207 mg/dL (60-115)
[2021-07-17] MEDS: Insulin Lispro 100 UNIT/ML 3 ML VIAL SUBCUT ×3 (12:25→20:58)
--- NOTE | 2021-07-17 13:01 | P.PNIM_ITS ---
Subjective Subjective Date of Service: 07/17/21 Interval History: F/u cholecystis, respriatory failure after surgery and was in ICU overnight, she is better, no respiratory distress and has no pain tolerating diet. Her oxygen dropped to 70s with activity, Review of Systems no abdominal pain, no sob Physical Exam Vital Signs: Vital Signs: Last Vital Signs Temp 97.9 F 07/17/21 11:22 Pulse 93 07/17/21 11:22 Resp 18 07/17/21 11:22 BP 138/86 07/17/21 11:22 Pulse Ox 91 L 07/17/21 11:22 Body Mass Index 47.0 Const: Other: General: AO X 3, no acute distress Resp: CTA bilateral CVS: S1,S2,RRR GI: +BS, NT, no distention Skin: No rash Neuro: motor grossly intact Psych: appropriate affect Objective Data Active Medications Acetaminophen (Acetaminophen 325 Mg Tablet) 650 mg PO QID PRN PRN Reason: headache, temp > 101 Last Admin: 07/16/21 22:43 Dose: 650 mg Documented by: GISSEL Albuterol Sulfate (Albuterol Sulfate 90 Mcg 8 Gm Inhaler) 2 puff INHALE Q6H PRN PRN Reason: Wheezing Calcium Carbonate/Cholecalciferol (Calcium + Vitamin D 250 Mg Tablet) 500 mg PO BID [facility] Last Admin: 07/17/21 08:53 Dose: 500 mg Documented by: MICHELE Furosemide (Furosemide 40 Mg Tablet) 40 mg PO DAILY [facility]; Protocol Last Admin: 07/17/21 08:53 Dose: 40 mg Documented by: MICHELE Hydralazine HCl (Hydralazine Hcl 10 Mg Tablet) 10 mg PO TID [facility]; Protocol Last Admin: 07/17/21 08:53 Dose: 10 mg Documented by: MICHELE Insulin Human Lispro (Insulin Lispro 100 Unit/Ml 3 Ml Vial) 0 unit SUBCUT QIDACHS [facility]; Protocol Last Admin: 07/17/21 12:25 Dose: 4 unit Documented by: MICHELE Ondansetron HCl (Ondansetron Hcl 4 Mg/2 Ml Vial) 4 mg IVPUSH QID PRN PRN Reason: Nausea Last Admin: 07/16/21 22:02 Dose: 4 mg Documented by: GISSEL Sodium Chloride (0.9 % Sodium Chloride Flush 3 Ml Syringe) 3 ml IVFLUSH QSHIFT [facility] Last Admin: 07/17/21 08:55 Dose: 3 ml Documented by: MICHELE Labs CBC & Chem 7: 07/15/21 05:21 07/15/21 05:21 Labs: Laboratory Results - last 24 hr 07/16/21 07/16/21 07/17/21 16:30 20:38 07:27 POC Glucose 202 H 199 H 142 H 07/17/21 11:22 POC Glucose 207 H Assessment and Plan (1) Obesity hypoventilation syndrome: Status: Acute (2) NICO (obstructive sleep apnea): Status: Acute (3) Acute respiratory failure with hypoxia and hypercapnia: Status: Acute (4) Diabetes mellitus: Status: Acute (5) Choledocholithiasis: Status: Acute Assessment and Plan: 76/F with morbid obesity, NICO, hypoventilation HLD, HTN, Diabetes, COPD here with acute choledocholithiasis and acute cholecystitis and underwent Lap Choley on 07/14/21 with post op respiratory failure and was intubated in ICU overnight and extubated the next day and transitioned to BiPAP--presently doing well 1/Choledocholithiasis/Cholecystitis -Treated with Zosyn before surgery -CCYon 07/14/21, post op management by surgery 3/Diabetes--resume Metformin, continue SSI 4/HTN--Continue Losartan, Coreg, 5/COPD--no exacerbation, but O2 drops significantly with actibity, check for home O2, 6OSA/Hypoventilation--CPAP at night 7/HypOkalemia, recheck lab today and and replete PRN 8/Paracetamol PRN for headache 9/Probably chronic diastolic heart failure--continue Lasix PT eval for discharge planning Quality Stroke Does the patient have a stroke diagnosis?: No VTE Prior VTE?: No VTE Risk Level:: Surgical - moderate VTE Device Contraindication: N/A - Device Ordered VTE Drug Contraindication: Treatment Not Indicated
[2021-07-17 16:25] LABS: Glucose, Whole Blood 208 mg/dL (60-115)
[2021-07-17 20:19] LABS: Glucose, Whole Blood 194 mg/dL (60-115)
[2021-07-18 03:40] VITALS: BP 147/70; PULSE 79; RESP 18; TEMP 35.8; O2SAT 96
[2021-07-18 07:14] VITALS: BP 180/67; PULSE 74; RESP 18; TEMP 36.3; O2SAT 99
[2021-07-18 07:30] LABS: Glucose, Whole Blood 150 mg/dL (60-115)
[2021-07-18] MEDS: Acetaminophen 325 MG TABLET 650 MG PO (07:35)
[2021-07-18] MEDS: Calcium + Vitamin D 250 MG TABLET 500 MG PO (07:36)
[2021-07-18] MEDS: Furosemide 40 MG TABLET PO (07:36)
[2021-07-18] MEDS: hydrALAZINE HCl 10 MG TABLET PO (07:36)
[2021-07-18] MEDS: 0.9 % Sodium Chloride Flush 3 ML SYRINGE IVFLUSH (07:37)
--- NOTE | 2021-07-18 09:15 | PM.DS ---
DS: Providers Provider Date of Service: 07/18/21 Date of admission: 07/12/21 14:19 Primary care physician: Carmine Patel MD Consults: 07/12/21 15:20 Consult to Gastroenterology Routine Consulting Provider: Anup Crump Reason for consultation: transaminitis, dilated CBD, ?CBD stone Has provider been notified: No 07/12/21 16:41 Consult to Gastroenterology Routine Consulting Provider: Frances Diaz Reason for consultation: Acute cholecystitis, choledocholithiasis Consult to Hospitalist Routine Consulting Provider: Hospitalist Reason For Exam: Acute cholecystitis, Diabetes, COPD, med managemen DS: Diagnosis Discharge Diagnosis (1) Obesity hypoventilation syndrome: Status: Acute (2) NICO (obstructive sleep apnea): Status: Acute (3) Acute respiratory failure with hypoxia and hypercapnia: Status: Acute (4) Diabetes mellitus: Status: Acute (5) Choledocholithiasis: Status: Acute DS: Summary Hospital Course Hospital Course: 76-year-old lady with underlying obesity, NICO, obesity hyperventilation syndrome, likely COPD, admitted for acute cholecystitis, and had cholecystectomy on 07/14/2021 was in respiratory failure after and was admitted to the ICU, initially on BiPAP and later intubated but extubated quickly by the next day and has since been doing ok. She likely has underlying COPD and hypoventilation syndrome. She get singificant oxygen desaturation with activity and has been assess and quaqlify for home oxygen post excercise oxygen level was 82% and recovered with 2 liters and will therefore be discharged home with 2 liters of oxygen. For cholecysitis, she was initially treated with IV Zosyn and then antibiotics were discontined after surgery. ohter issues; 3/Diabetes--resume Metformin, continue SSI 4/HTN--Continue Losartan, Coreg, 5/COPD--no exacerbation, but O2 drops significantly with activity to 82 and qualifies for O2 at 2 lits 6OSA/Hypoventilation--CPAP at night 7/HypOkalemia, corrected 9/Probably chronic diastolic heart failure--continue Lasix Time Spent with Patient Time attestation: Total time spent providing and/or coordinating discharge services: Discharge coordination time: Greater than 30 minutes Quality: Stroke Does the patient have a stroke diagnosis?: No Physical Exam Vital Signs: Vital Signs: Last Vital Signs Temp 97.3 F 07/18/21 07:14 Pulse 74 07/18/21 07:14 Resp 18 07/18/21 07:14 BP 180/67 H 07/18/21 07:14 Pulse Ox 99 07/18/21 07:14 Body Mass Index 47.0 General: AO X 3, no acute distress Resp: CTA bilateral CVS: S1,S2,RRR GI: +BS, NT, no distention Skin: No rash Neuro: motor grossly intact Psych: appropriate affect DS: Data Data Completed and Pending Pending studies at discharge: Pending at discharge 07/14/21 09:50 Surgical [PTH] Routine Labs on day of discharge: Laboratory Results - last 24 hr 07/17/21 07/17/21 07/17/21 11:22 16:19 20:12 POC Glucose 207 H 208 H 194 H 07/18/21 07:17 POC Glucose 150 H Discharge Plan Discharge Anticipated Discharge Date/Time: 07/18/21 10:27 Patient Disposition: Home Health Service Discharge Diagnosis: Cholecystitis, choledocholithiasis, acute respiratory failure and copd Referrals: Carmine Patel MD [Primary Care Provider] - 1 Week Discharge Medications: Continued cyclobenzaprine 5 mg tablet 5 mg PO Q8H PRN (Reason: pain (scale score 7-10)) 5 Days Qty: 14 RF: 0 tramadol 50 mg tablet 50 mg PO Q8H PRN (Reason: pain, severe) Qty: 9 RF: 0 multivitamin Tablet 1 tab PO QAM RF: 0 furosemide 40 mg tablet 1 tab PO QAM RF: 0 hydralazine 10 mg tablet 1 tab PO TID RF: 0 carvedilol 12.5 mg tablet 1 tab PO BID RF: 0 pravastatin 40 mg tablet 1 tab PO QPM RF: 0 isosorbide mononitrate 20 mg tablet 20 mg PO DAILY RF: 0 aspirin 81 mg tablet,delayed release (DR/EC) 1 tab PO BEDTIME RF: 0 albuterol sulfate 90 mcg/actuation HFA aerosol inhaler 2 puff PO Q6H PRN (Reason: Wheezing) RF: 0 losartan 100 mg tablet 1 tab PO QAM RF: 0 metformin 500 mg tablet extended release 24 hr 2 tab PO BID RF: 0 calcium carbonate-vitamin D3 600 mg(1,500mg) -400 unit tablet 1 tab PO BID RF: 0 Discharge Orders: Discharge Order (Routine); Ordered 07/18/21 Ordered By: Robert Montgomery Diet: advance to usual diet and diabetic diet Activity on Discharge: As tolerated Stand Alone Forms: Patient Portal Discharge page Care Plan Goals: Full recovery from cholecystecomy and respriatory failure after surger Health Concerns: obesity hypoventilation, copd, chronic heart failure, diabetes Plan of Treatment: Take all your medication as directe and follow up with Doctor in a week Assessment: as above
[2021-07-18 09:39] VITALS: BP 180/67; PULSE 74; O2SAT 99
[2021-07-18] MEDS: Losartan Potassium 50 MG TABLET 100 MG PO (10:52)
[2021-07-18] MEDS: carvediloL 12.5 MG TABLET PO (10:52)
[2021-07-18 11:16] VITALS: BP 142/79; PULSE 80; RESP 17; TEMP 36.4; O2SAT 100
[2021-07-18] MEDS: Insulin Lispro 100 UNIT/ML 3 ML VIAL SUBCUT (11:17)
[2021-07-18 11:21] LABS: Glucose, Whole Blood 191 mg/dL (60-115)
--- NOTE | 2021-07-18 13:01 | MHC.CM.PN ---
Addendum entered by Luz Grant RN 07/18/21 14:41: [facility] WILL PROVIDE HOME PHYSICAL THERAPY, COMFORT PLUS [facility] AWARE Addendum entered by Luz Grant RN 07/18/21 13:02: COUSIN FOR TRANSPORT Original Note: PT DISCHARGING W/RESUMP OF [employer] AND HOME O2 AND NEW COMFORT PLUS [facility] FOR HALFWAY AND HOME PHYSICAL THERAPY.
--- NOTE | 2021-07-18 15:02 | W.MHC.F2F ---
Service Date Service Date: 07/18/21 Reasons for Services Reason for custodial: CV/CP assess and/or care Reason for physical therapy: home safety and mobility and energy conservation Homebound: Leaving the home is medically contraindicated at this time without the asist of a device and/or another person due th the listed conditions above and below. Homebound supporting statement: Homebound due to recent hospitalization with respiratory failure needing mechanical ventilation Certification: Based on the above findings, I certify that this patient is confined to the home and needs intermittent custodial care, physical therapy and/or speech therapy, or continues to need occupational therapy. The patient is under my care, and I have initiated the establishment of the plan of care. The patient will be followed by a physician who will periodically review the plan of care.
== END 2021-07-18 15:46 | disposition home health service (06) | DRG 417 ==
LOC: HO.ED 14:47 → HO.EDOVER 15:12 → HO.S3 15:13 → HO.ICU 07-14 11:22 → HO.S3 07-15 19:31 → HO.ICU 07-15 20:29 → HO.S3 07-16 05:40
PROVIDERS: Internal Medicine; Internal Medicine Pulmonary Disease; Registered Nurse Community Health; Admitting Provider Surgery; Emergency Provider Emergency Medicine; PCP Internal Medicine; Visit Provider Internal Medicine
PROC: 0FT44ZZ Resection of Gallbladder, Percutaneous Endoscopic Approach (ICD-10-PCS; CPT 47562; principal; 2021-07-14 09:30)
DX: K80.42 Calculus of bile duct with acute cholecystitis without obstruction (principal); J96.01 Acute respiratory failure with hypoxia; J96.02 Acute respiratory failure with hypercapnia; E66.2 Morbid (severe) obesity with alveolar hypoventilation; Z68.42 Body mass index [BMI] 45.0-49.9, adult; I50.32 Chronic diastolic (congestive) heart failure; E87.6 Hypokalemia; K21.9 Gastro-esophageal reflux disease without esophagitis; I11.0 Hypertensive heart disease with heart failure; J44.9 Chronic obstructive pulmonary disease, unspecified; E11.9 Type 2 diabetes mellitus without complications; Z20.822 Contact with and (suspected) exposure to COVID-19; Z87.891 Personal history of nicotine dependence; Z79.82 Long term (current) use of aspirin; Z79.84 Long term (current) use of oral hypoglycemic drugs; Z79.899 Other long term (current) drug therapy
CPT/HCPCS: 0241U; 36415; 36600; 71045; 74176; 74181; 76705; 80048; 80053; 80076; 81003; 82248; 82803; 82947; 83605; 83690; 83735; 83880; 84100; 84484; 85025; 85610; 87040; 87635; 88304; 93005; 93306; 94002; 94003; 94640; 94660; 94799; 97161; 99024; 99285; C1758; J1100; J1940; J2250; J2270; J2370; J2405; J2543; J2930; J3010; J3475; Q0163

== ENCOUNTER → 2021-07-26 13:25 | Outpatient (BNVA) | payer MEDICARE, SELFPAY | PROVIDERS: PCP Internal Medicine; Referring Provider Internal Medicine; Visit Provider Surgery | DX: Z48.815 Encounter for surgical aftercare following surgery on the digestive system (principal); Z90.49 Acquired absence of other specified parts of digestive tract | CPT/HCPCS: 99212 ==

== ENCOUNTER → 2021-09-20 10:27 | Outpatient (BNVA) | payer MEDICARE, SELFPAY | PROVIDERS: PCP Internal Medicine; Visit Provider Surgery Vascular Surgery | DX: I83.11 Varicose veins of right lower extremity with inflammation (principal) | CPT/HCPCS: 99202 ==

== ENCOUNTER 2021-09-29 12:49 | Outpatient (REF) | payer MEDICARE, SELFPAY ==
--- NOTE | ~2021-09-29 | US_ITS ---
EXAMINATION: RIGHT and LEFT LOWER EXTREMITY VENOUS ULTRASOUND (Reflux Exam) CLINICAL INDICATION: Varicose veins of right lower extremity COMPARISON: None. TECHNIQUE: Color flow triplex imaging and compression Doppler was performed to evaluate both the deep and the superficial systems bilaterally. To evaluate the superficial system, the examination was performed in the upright position. Color-flow Doppler ultrasound and compression ultrasound were utilized. In addition, maneuvers were utilized to demonstrate reflux. FINDINGS: 1. DEEP VENOUS ULTRASOUND OF THE RIGHT LOWER EXTREMITY: Respiratory variation, normal compression and augmented flow are noted in the right common femoral vein as well as the right popliteal vein and there is no evidence of deep venous thrombosis at these locations. There is no evidence of reflux in the deep system in either the common femoral vein or the popliteal vein. There is no evidence of a Minaya's cyst. 2. SUPERFICIAL ULTRASOUND WITH DOPPLER OF RIGHT LOWER EXTREMITY: The right great saphenous vein at the saphenofemoral junction measures 10 mm, at the mid thigh 4 mm, tkhlv-mdf-erhj 4 mm, vfcnx-jvl-rjeq 3 mm, at mid calf 2 mm and at the ankle measures 2 mm. There is segmental reflux in the mid calf great saphenous vein measuring up to 1.8 seconds, the remainder of the great saphenous system shows no reflux. The right small saphenous vein measures 3 mm and shows no reflux. A 4 mm varicosity in the proximal thigh demonstrates 2.5 seconds of reflux. 3. DEEP VENOUS ULTRASOUND OF THE LEFT LOWER EXTREMITY: Respiratory variation, normal compression and augmented flow are noted in the left common femoral vein as well as the left popliteal vein and there is no evidence of deep venous thrombosis at these locations. There is no evidence of reflux in the deep system in either the common femoral vein or the popliteal vein. . There is no evidence of a Minaya's cyst. 4. SUPERFICIAL ULTRASOUND WITH DOPPLER OF LEFT LOWER EXTREMITY: Left great saphenous vein at the saphenofemoral junction measures 10 mm, at the mid thigh 3 mm, zojun-qju-bygc 3 mm, fcuzw-qyl-bxpa 2 mm, at mid calf 2 mm and at the ankle measures 2 mm. There is no reflux demonstrated in the left great saphenous vein. The left small saphenous vein measures 5 mm and shows no reflux. US/US venous duplex LE BI IMPRESSION: 1. No evidence of reflux or thrombus in the common femoral veins or popliteal veins bilaterally. 2. Segmental reflux in the right great saphenous vein at the mid calf measuring 1.8 seconds. The remainder of the saphenous systems show no reflux.
== END 2021-09-29 12:50 | disposition home or self-care (01) ==
LOC: HO.US 12:49
PROVIDERS: Visit Provider Surgery Vascular Surgery
DX: I83.11 Varicose veins of right lower extremity with inflammation (principal)
CPT/HCPCS: 93970

== ENCOUNTER → 2021-10-06 14:24 | Outpatient (BNVA) | payer MEDICARE, SELFPAY | PROVIDERS: PCP Internal Medicine; Visit Provider Surgery Vascular Surgery | DX: I83.11 Varicose veins of right lower extremity with inflammation (principal) | CPT/HCPCS: 99212 ==

== ENCOUNTER 2021-12-07 15:36 | Outpatient (REF) | payer MEDICARE, SELFPAY ==
--- NOTE | ~2021-12-07 | MM_ITS ---
EXAMINATION: MM SCREENING DIGITAL BREAST TOMOSYNTHESIS, BILATERAL CLINICAL INFORMATION: Screening. Asymptomatic. The lifetime risk of breast cancer based on the Tyrer-Cuzick Model is 2%. COMPARISON: Mammography: October 28, 2020 and studies dating back to April 06, 2014 TECHNIQUE: Digital breast tomosynthesis is performed in both the craniocaudal and mediolateral oblique views along with computer-aided detection (CAD). Synthesized 2D images are generated from the tomosynthesis. FINDINGS: The breasts are almost entirely fatty (ACR BI-RADS breast composition Category a). There are no new significant masses, abnormal calcifications, or other abnormalities. MM/MM tomosynthesis screening BI IMPRESSION: There are no significant changes from prior study. ASSESSMENT: BI-RADS 1: Negative RECOMMENDATION: Routine annual mammography screening. This patient's information was entered into a reminder system with a target due date for their next mammogram.
== END 2021-12-07 15:37 | disposition home or self-care (01) ==
LOC: HO.MAMMO 15:36
PROVIDERS: Visit Provider Internal Medicine
DX: Z12.31 Encounter for screening mammogram for malignant neoplasm of breast (principal)
CPT/HCPCS: 77063; 77067

== ENCOUNTER 2022-02-19 18:29 | Inpatient (IN) | payer OTHER, SELFPAY ==
--- NOTE | ~2022-02-19 | CT_ITS ---
EXAMINATION: CT ABDOMEN AND PELVIS WITHOUT CONTRAST CLINICAL INFORMATION: Lower GI bleed COMPARISON: CT abdomen pelvis 07/12/2021 TECHNIQUE: Multidetector volumetric imaging was performed from the superior aspect of the liver through the pubic symphysis. Sagittal and coronal reformatted images were obtained on the technologist's workstation. This CT examination was performed using dose optimization techniques as appropriate, variously including the following: *Automated exposure control *Adjustment of mA and/or kV according to patient size (this includes techniques or standardized protocols for targeted exams where dose is matched to indication/reason for exam; i.e. extremities or head) *Use of iterative reconstruction technique DLP: 954 mGy-cm FINDINGS: LUNG BASES: The visualized lung bases are unremarkable aside from the presence of bibasilar atelectasis. LIVER, GALLBLADDER, AND BILIARY TREE: The liver is normal in size, shape, and attenuation. No focal hepatic lesion or biliary ductal dilatation is present. Status post cholecystectomy. PANCREAS: Unremarkable. SPLEEN: Unremarkable. ADRENAL GLANDS: Unremarkable. KIDNEYS AND URETERS: The kidneys are normal in size, shape, and attenuation. No hydronephrosis, hydroureter, or calculi seen. No perinephric stranding. BLADDER: Unremarkable. GASTROINTESTINAL TRACT: The small and large bowel are unremarkable aside from colonic diverticula without diverticulitis.. The appendix is unremarkable. ABDOMINAL WALL: A small periumbilical hernia seen containing fat. There is a small left inguinal hernia seen containing fat. LYMPH NODES: No retroperitoneal lymphadenopathy. VASCULAR: Unremarkable. PELVIC VISCERA: An anteverted uterus is present. Small calcification present in segment possibly secondary to old fibroids. An abnormal adnexal mass or free intraperitoneal fluid is not seen. OSSEOUS STRUCTURES: Some minimal degenerative changes are seen. Minimal grade 1 anterolisthesis of L4 upon L5. CT/CT abdomen pelvis wo con IMPRESSION: There is no evidence to suggest the presence of a lower GI bleed although a noncontrast CT scan is not the most effective modality for diagnosis. No large tumor is seen within bowel. Fleischner guidelines were followed.
[2022-02-19 18:46] VITALS: BP 181/88; PULSE 75; RESP 16; TEMP 36.4; O2SAT 94; BMI 44.4
[2022-02-19 21:46] VITALS: BP 160/76; PULSE 82; RESP 18; TEMP 36.7; O2SAT 93
[2022-02-19 21:56] VITALS: RESP 19; O2SAT 96
[2022-02-19 22:06] LABS: Hematocrit 36.3 % (37.0-47.0); Hemoglobin 11.5 g/dl (12.0-16.0); Mean Corpuscular HGB Conc 31.7 g/dl (31.0-35.0); Mean Corpuscular Hemoglobin 29.9 pg (27.0-33.0); Mean Corpuscular Volume 94.3 fL (80.0-98.0); Mean Platelet Volume 11.1 fL (9.4-12.3); Platelet Count 168 X10*3/uL (160-400); Red Blood Count 3.85 X10*6/uL (4.20-5.50); Red Cell Distribution Width 13.5 % (11.0-16.0); White Blood Count 9.2 X10*3/uL (4.8-10.8)
--- NOTE | 2022-02-19 22:18 | ED_ITS ---
HPI - GI Bleed General Chief complaint: General Medical Stated complaint: vaginal bleeding Time Seen by Provider: 02/19/22 22:18 Source: patient Mode of arrival: ambulatory Limitations: language barrier History of Present Illness HPI Narrative: patient complaining of rectal bleeding started today with blood clots denies any abdominal pain patient had multiple episodes of rectal bleed about 5 times last 1 was just prior to arrival while in the waiting area every time she had about 1 handful of dark blood with clots without much stool. No abdominal pain no fever no chills patient did not have any history of rectal bleed like this before no history of hemorrhoids had colonoscopy 2 years ago was negative patient denies any dizziness or chest pain or shortness of breath Related Data Home Medications Medication Instructions Recorded Confirmed albuterol sulfate 90 mcg/actuation 2 puff PO Q6H PRN 07/12/21 07/12/21 aerosol inhaler aspirin 81 mg tablet,delayed 1 tab PO BEDTIME 07/12/21 07/14/21 release calcium carbonate 600 mg-vitamin 1 tab PO BID 07/12/21 07/12/21 D3 10 mcg (400 unit) tablet carvedilol 12.5 mg tablet 1 tab PO BID 07/12/21 07/12/21 furosemide 40 mg tablet 1 tab PO QAM 07/12/21 07/12/21 hydralazine 10 mg tablet 1 tab PO TID 07/12/21 07/12/21 isosorbide mononitrate 20 mg tablet 20 mg PO DAILY 07/12/21 07/12/21 losartan 100 mg tablet 1 tab PO QAM 07/12/21 07/12/21 metformin 500 mg tablet,extended 2 tab PO BID 07/12/21 07/12/21 release 24 hr multivitamin 1 tab PO QAM 07/12/21 07/12/21 pravastatin 40 mg tablet 1 tab PO QPM 07/12/21 07/12/21 potassium chloride 10 mEq 10 meq PO BID 07/26/21 tablet,extended release lancets 33 gauge (TRUEplus Lancets) #100 ea 09/20/21 sitagliptin 50 mg tablet (Januvia) 50 mg PO DAILY 09/20/21 blood sugar diagnostic (FreeStyle #10 ea 10/06/21 Lite Strips) Previous Rx's Medication Instructions Recorded cyclobenzaprine 5 mg tablet 5 mg PO Q8H PRN 5 Days #14 tab 05/25/21 tramadol 50 mg tablet 50 mg PO Q8H PRN #9 tab 02/08/21 Allergies Allergy/AdvReac Type Severity Reaction Status Date / Time No Known Allergies Allergy Verified 02/19/22 18:46 [No Known Allergies*] Review of Systems Review of Systems: Yes all other systems are reviewed and are negative [facility] Past Medical History Medical History COPD (chronic obstructive pulmonary disease) Diabetes mellitus GERD (gastroesophageal reflux disease) Hypertension Obesity hypoventilation syndrome NICO (obstructive sleep apnea) Surgical History S/P laparoscopic cholecystectomy (07/14/21) Family History Family History Mother Diabetes Social History Social History Household Members: Spouse Housing: Apartment Do you presently have visiting nurse or other home services: Yes Patient Tobacco Use Status: Former Tobacco user Tobacco use type: Cigarette Years Smoked: 20 Advance Directives: No Advance Directives Information Provided: Yes service: No Current occupational status: unemployed and disabled Physical Exam Vital Signs: Vital Signs: Last Vital Signs Temp 98.6 F 02/20/22 00:56 Pulse 72 02/20/22 00:56 Resp 16 02/20/22 00:56 BP 126/55 L 02/20/22 00:56 Pulse Ox 98 02/20/22 00:56 BMI result Body Mass Index 44.4 Appearance: Alert. Oriented X3. No acute distress. Eyes: No pallor or icterus ENT: Pharynx normal. Oral Mucosa moist Neck: Normal inspection. Neck supple. CVS: Normal heart rate and rhythm. Pulses normal. Respiratory: No respiratory distress. Equal air entry bilateral, no whe ezing/rales/rhonchi Abdomen: Soft and nontender. Bowel sounds are present, no mass palpable, no CVA tenderness rectal: Maroon color blood on the finger no hemorrhoid felt Skin: Skin warm and dry. Normal skin color. Normal skin turgor. Extremities: No lower extremity edema. No calf tenderness Neuro: Oriented X 3. No motor deficit. No sensory deficit.No cerebellar signs , cranial nerves II-XII intact MDM - GI Bleed MDM Narrative Medical decision making narrative: Patient with multiple episode of rectal bleed delusional very clear CT scan of the abdomen negative H&H 11.5/36.3 usual baseline is . Will admit patient for further evaluation of lower GI bleed Differential Diagnosis Differential diagnosis: Likely Lower gastrointestinal hemorrhage Lab Data Attestation: I reviewed the patient's lab results. Result diagrams: 02/19/22 22:02 02/19/22 22:02 Labs: Lab Results 02/19/22 02/19/22 02/19/22 Range/Units 22:02 22:02 22:52 WBC 9.2 (4.8-10.8) X10*3/uL RBC 3.85 L (4.20-5.50) X10*6/uL Hgb 11.5 L (12.0-16.0) g/dl Hct 36.3 L (37.0-47.0) % MCV 94.3 (80.0-98.0) fL MCH 29.9 (27.0-33.0) pg MCHC 31.7 (31.0-35.0) g/dl RDW 13.5 (11.0-16.0) % Plt Count 168 (160-400) X10*3/uL MPV 11.1 (9.4-12.3) fL Absolute Nucleated RBC 0.000 (0.0-0.012) X10*3/uL Nucleated RBC % (auto) 0.0 (0.0-0.2) /100WBC Sodium 142 (135-145) mmol/L Potassium 4.0 D (3.3-5.1) mmol/L Chloride 97 (96-108) mmol/L Carbon Dioxide 34 H (22-29) mmol/L Anion Gap 15 (12-20) BUN 11 (9-16) mg/dL Creatinine 0.63 (0.5-1.4) mg/dL Estim Creat Clear Calc 93.6 Estimated GFR > 60 Random Glucose 123 H (60-115) mg/dL Calcium 9.0 (8.4-10.2) mg/dL Total Bilirubin 0.2 (0.0-1.0) mg/dL AST 19 D (5-31) U/L ALT 13 (0-31) U/L Alkaline Phosphatase 42 D (39-117) U/L Total Protein 7.3 (6.5-8.0) g/dL Albumin 3.9 (3.5-5.0) g/dL Stool Occult Blood POSITIVE (NEGATIVE) Blood Type 02/20/22 Range/Units 00:44 WBC (4.8-10.8) X10*3/uL RBC (4.20-5.50) X10*6/uL Hgb (12.0-16.0) g/dl Hct (37.0-47.0) % MCV (80.0-98.0) fL MCH (27.0-33.0) pg MCHC (31.0-35.0) g/dl RDW (11.0-16.0) % Plt Count (160-400) X10*3/uL MPV (9.4-12.3) fL Absolute Nucleated RBC (0.0-0.012) X10*3/uL Nucleated RBC % (auto) (0.0-0.2) /100WBC Sodium (135-145) mmol/L Potassium (3.3-5.1) mmol/L Chloride (96-108) mmol/L Carbon Dioxide (22-29) mmol/L Anion Gap (12-20) BUN (9-16) mg/dL Creatinine (0.5-1.4) mg/dL Estim Creat Clear Calc Estimated GFR Random Glucose (60-115) mg/dL Calcium (8.4-10.2) mg/dL Total Bilirubin (0.0-1.0) mg/dL AST (5-31) U/L ALT (0-31) U/L Alkaline Phosphatase (39-117) U/L Total Protein (6.5-8.0) g/dL Albumin (3.5-5.0) g/dL Stool Occult Blood (NEGATIVE) Blood Type O Positive Discharge Plan Discharge Clinical Impression: Acute lower gastrointestinal bleeding Patient Disposition: Admitted As Inpatient
[2022-02-19 22:34] LABS: Alanine Aminotransferase 13 U/L (0-31); Albumin Level 3.9 g/dL (3.5-5.0); Alkaline Phosphatase 42 U/L (39-117); Anion Gap 15 (12-20); Aspartate Amino Transferase 19 U/L (5-31); Bilirubin Total 0.2 mg/dL (0.0-1.0); Blood Urea Nitrogen 11 mg/dL (9-16); Carbon Dioxide 34 mmol/L (22-29); Chloride 97 mmol/L (96-108); Creatinine Clr Calc Pharmacy 93.6; Estimated Glomerular Filt Rate > 60; Glucose Random 123 mg/dL (60-115); Sodium 142 mmol/L (135-145); Total Protein 7.3 g/dL (6.5-8.0)
[2022-02-19 22:56] LABS: OBS Int Ctl Valid YES; OBS1 POSITIVE (NEGATIVE)
[2022-02-19 23:00] VITALS: BP 157/86; PULSE 79; RESP 13; O2SAT 92
[2022-02-20] VITALS (9 sets, daily range): BP systolic 126–195; BP diastolic 55–96; PULSE 63–76; RESP 14–18; TEMP 36.3–37.4; O2SAT 93–100
--- NOTE | 2022-02-20 01:39 | PM.IMHP ---
History of Present Illness Date of Service: 02/20/22 Chief Complaint: GI bleed Singaporean-speaking only, history is obtained with the help of an cbx operator. this is a 76 year old female with past medical history of COPD, diabetes, hypertension, GERD, NICO, who presents to the hospital with complaints of multiple episodes of acute GI bleed. Patient reports that she had bright red blood per rectum throughout the day, started today, no previous similar episodes, she has no abdominal pain nausea or vomiting, reports watery diarrhea along with blood. Reports no history of hemorrhoids. Reports that she had a colonoscopy done about 2 years ago which was normal. Patient denies any fever or chills, no headache or change in vision, no chest pain, Noshortness of breath, no urinary symptoms and no lower extremity edema. patient denies having any dizziness, patient denies any history of using NSAIDs. Patient had 1 episode of bloody bowel movement while waiting in the ED, otherwise has been hemodynamically stable, with no significant abnormal vitals Labs are significant for hemoglobin of 11.5 with previous hemoglobin of 13.3 on 07/07, stool occult blood positive Abdomen pelvic CT shows no evidence to suggest the presence of lower GI bleed although not the most accurate test for this. Patient will be admitted for further evaluation Review of Systems Review of Systems: Yes all other systems are reviewed and are negative [facility] Medical History COPD (chronic obstructive pulmonary disease) Diabetes mellitus GERD (gastroesophageal reflux disease) Hypertension Obesity hypoventilation syndrome NICO (obstructive sleep apnea) Family History Mother Diabetes Surgical History S/P laparoscopic cholecystectomy (07/14/21) Social History Household Members: Spouse Housing: Apartment Do you presently have visiting nurse or other home services: Yes Patient Tobacco Use Status: Former Tobacco user Tobacco use type: Cigarette Years Smoked: 20 Advance Directives: No Advance Directives Information Provided: Yes service: No Current occupational status: unemployed and disabled Meds Allergies Allergy/AdvReac Type Severity Reaction Status Date / Time No Known Allergies Allergy Verified 02/19/22 18:46 [No Known Allergies*] Active Medications: Current Medications Acetaminophen (Acetaminophen 325 Mg Tablet) 650 mg PO Q6H PRN PRN Reason: Pain, Mild (Pain Scale 1-3) Ondansetron HCl (Ondansetron Hcl 4 Mg/2 Ml Vial) 4 mg IVPUSH Q8H PRN PRN Reason: Nausea and Vomiting Pantoprazole Sodium (Pantoprazole Sodium 40 Mg/10 Ml Vial) 40 mg IVPUSH BID@0630,1630 [facility] Sodium Chloride (0.9 % Sodium Chloride Flush 3 Ml Syringe) 3 ml IVFLUSH QSHIFT [facility] Home Medications Medication Instructions Recorded Confirmed Last Taken Type albuterol sulfate 90 mcg/actuation 2 puff PO Q6H PRN 07/12/21 07/12/21 Unknown History aerosol inhaler aspirin 81 mg tablet,delayed 1 tab PO BEDTIME 07/12/21 07/14/21 07/12/21 History release calcium carbonate 600 mg-vitamin 1 tab PO BID 07/12/21 07/12/21 07/11/21 History D3 10 mcg (400 unit) tablet carvedilol 12.5 mg tablet 1 tab PO BID 07/12/21 07/12/21 07/11/21 History furosemide 40 mg tablet 1 tab PO QAM 07/12/21 07/12/21 07/11/21 History hydralazine 10 mg tablet 1 tab PO TID 07/12/21 07/12/21 07/11/21 History isosorbide mononitrate 20 mg tablet 20 mg PO DAILY 07/12/21 07/12/21 07/11/21 History losartan 100 mg tablet 1 tab PO QAM 07/12/21 07/12/21 07/11/21 History metformin 500 mg tablet,extended 2 tab PO BID 07/12/21 07/12/21 07/11/21 History release 24 hr multivitamin 1 tab PO QAM 07/12/21 07/12/21 07/11/21 History pravastatin 40 mg tablet 1 tab PO QPM 07/12/21 07/12/21 07/11/21 History potassium chloride 10 mEq 10 meq PO BID 07/26/21 Unknown History tablet,extended release lancets 33 gauge (TRUEplus Lancets) #100 ea 09/20/21 Unknown History sitagliptin 50 mg tablet (Januvia) 50 mg PO DAILY 09/20/21 Unknown History blood sugar diagnostic (FreeStyle #10 ea 10/06/21 Unknown History Lite Strips) Physical Exam Vital Signs and Narrative: Vital Signs: Last Vital Signs Temp 98.6 F 02/20/22 00:56 Pulse 72 02/20/22 00:56 Resp 16 02/20/22 00:56 BP 126/55 L 02/20/22 00:56 Pulse Ox 98 02/20/22 00:56 BMI result Body Mass Index 44.4 Const: General: cooperative and no acute distress Orientation/consciousness: patient oriented x3 Eyes: General: appearance normal, both eyes and all related structures Pupils: Equal, round and reactive pupils present Resp: Effort & Inspection: normal respiratory effort Auscultation: clear to auscultation bilaterally Cardio: Rate: regular rate Rhythm: regular rhythm GI: Other: no abdominal tenderness rebound or guarding Palpation (GI): Soft to palpation Auscultation: normal bowel sounds Skin: General skin exam: no rashes or lesions noted Neuro: General: patient oriented x3 Cranial nerves: Yes Equal, round and reactive pupils present Cognition (Neuro): normal cognition Extrem: General: Yes normal to inspection and Yes no pedal edema Results Labs CBC and Chem 7: 02/19/22 22:02 02/19/22 22:02 Labs: Laboratory Results - last 24 hr 02/19/22 02/19/22 02/19/22 22:02 22:02 22:52 MCV 94.3 MCH 29.9 MCHC 31.7 RDW 13.5 Plt Count 168 MPV 11.1 Absolute Nucleated RBC 0.000 Nucleated RBC % (auto) 0.0 Anion Gap 15 Estim Creat Clear Calc 93.6 Estimated GFR > 60 Random Glucose 123 H Calcium 9.0 Total Bilirubin 0.2 AST 19 D ALT 13 Alkaline Phosphatase 42 D Total Protein 7.3 Albumin 3.9 Stool Occult Blood POSITIVE Blood Type 02/20/22 00:44 MCV MCH MCHC RDW Plt Count MPV Absolute Nucleated RBC Nucleated RBC % (auto) Anion Gap Estim Creat Clear Calc Estimated GFR Random Glucose Calcium Total Bilirubin AST ALT Alkaline Phosphatase Total Protein Albumin Stool Occult Blood Blood Type O Positive Imaging Radiologist's Impressions: Impressions Abdomen/Pelvis CT 02/19/22 23:39 IMPRESSION: There is no evidence to suggest the presence of a lower GI bleed although a noncontrast CT scan is not the most effective modality for diagnosis. No large tumor is seen within bowel. Fleischner guidelines were followed. Assessment and Plan (1) Acute lower gastrointestinal bleeding: Status: Acute Plan 76-year-old female with past medical history of COPD, NICO, HTN, diabetes, who presents to the hospital with acute GI bleed # Acute GI bleed - likely lower GI bleed,diverticular versus upper GI bleed less likely - Patient is hemodynamically stable - CT abdomen negative - will start patient on PPI - keep NPO - hold aspirin - GI consulted - follow H&H # hypertension - stable - continue home medications # diabetes - will anti hyperglycemics - low-dose sliding scale insulin # NICO - CPAP at bedtime DVT prophylaxis: SCDs given patient's acute GI bleed, patient will need a minimum 2 night admission to the hospital for further evaluation Quality Stroke Does the patient have a stroke diagnosis?: No VTE Prior VTE?: No VTE Risk Level:: Medical - moderate - high VTE Device Contraindication: N/A - Device Ordered VTE Drug Contraindication: Treatment Not Indicated
[2022-02-20 01:42] LABS: COVID-19 Test Negative (Negative)
[2022-02-20] MEDS: 0.9 % Sodium Chloride Flush 3 ML SYRINGE IVFLUSH ×2 (02:32→16:26)
--- NOTE | 2022-02-20 04:42 | PC.NURSE ---
Addendum entered by Joselito Baca RN 02/20/22 06:21: SAO2 99-1005 WITH O2 2 L/M..O2 D/D'D PER Original Note: RECEIVED FROM MAIN ER TO OVERFLOW BED 5..AWAKE..ALERT....OOB TO COMMODE 1 ASSIST..VOIDED..NO STOOL..NSR..NO ECTOPY..DENIES NAUSEA OR PAIN..RESTFU;
[2022-02-20] MEDS: Pantoprazole Sodium 40 MG/10 ML VIAL IVPUSH ×2 (06:35→16:26)
[2022-02-20 06:58] LABS: MANUAL DIFF FLAG NO
[2022-02-20 06:59] LABS: Basophils Percent Auto 0.6 % (0-2); Eosinophils Absolute Auto 0.2 X10*3/uL (0.0-0.4); Eosinophils Percent Auto 2.2 % (0-4); Hematocrit 35.4 % (37.0-47.0); Hemoglobin 10.8 g/dl (12.0-16.0); Imm Gran Abs Auto 0.02 X10*3/uL (0.00-0.03); Imm Gran Pct Auto 0.3 % (0.0-0.4); Lymphocytes Percent Auto 28.3 % (20-40); Mean Corpuscular HGB Conc 30.5 g/dl (31.0-35.0); Mean Corpuscular Hemoglobin 29.1 pg (27.0-33.0); Mean Corpuscular Volume 95.4 fL (80.0-98.0); Mean Platelet Volume 11.2 fL (9.4-12.3); Monocytes Absolute Auto 0.6 X10*3/uL (0.1-1.2); Monocytes Percent Auto 9.1 % (2-11); Neutrophils Absolute Auto 4.1 x10*3/uL (2.0-8.3); Neutrophils Percent Auto 59.5 % (45-73); Platelet Count 148 X10*3/uL (160-400); Red Blood Count 3.71 X10*6/uL (4.20-5.50); Red Cell Distribution Width 13.3 % (11.0-16.0); White Blood Count 6.9 X10*3/uL (4.8-10.8)
[2022-02-20 07:11] LABS: Anion Gap 14 (12-20); Blood Urea Nitrogen 8 mg/dL (9-16); Calcium 8.7 mg/dL (8.4-10.2); Carbon Dioxide 36 mmol/L (22-29); Chloride 99 mmol/L (96-108); Creatinine Clr Calc Pharmacy 105.3; Estimated Glomerular Filt Rate > 60; Glucose Random 127 mg/dL (60-115); Potassium 3.8 mmol/L (3.3-5.1); Sodium 145 mmol/L (135-145)
--- NOTE | 2022-02-20 08:18 | P.PNIM_ITS ---
Subjective Subjective Date of Service: 02/20/22 Interval History: gi bleed Review of Systems no new bleeding episode so far denies any abdominal pain or nausea or vomiting or fever chills. Physical Exam Vital Signs: Vital Signs: Last Vital Signs Temp 97.8 F 02/20/22 03:26 Pulse 74 02/20/22 07:11 Resp 14 02/20/22 07:11 BP 175/72 H 02/20/22 07:11 Pulse Ox 96 02/20/22 07:11 BMI result Body Mass Index 44.4 Appearance: Alert.? Oriented X3.? not in distress.? cvs: [id number], [id number] , no murmur res: clear to auscultation ,no rhonchii or wheezing abd: no rebound or guarding ,nt, bs present. ext pulses present , no cyanosis . neuro: axo3 , nonfocal. Objective Data Active Medications Acetaminophen (Acetaminophen 325 Mg Tablet) 650 mg PO Q6H PRN PRN Reason: Pain, Mild (Pain Scale 1-3) Dextrose (Dextrose 50 % 25 Gm/50 Ml Syringe) 25 gm IVPUSH Q15M PRN; Protocol PRN Reason: per Hypoglycemia Standing Ord. Glucose (Glucose Gel 15 Gm Gel..Gram.) 15 gm PO Q15M PRN; Protocol PRN Reason: per Hypoglycemia Standing Ord. Insulin Human Lispro (Insulin Lispro 100 Unit/Ml 3 Ml Vial) 0 unit SUBCUT QIDACHS [facility]; Protocol Ondansetron HCl (Ondansetron Hcl 4 Mg/2 Ml Vial) 4 mg IVPUSH Q8H PRN PRN Reason: Nausea and Vomiting Pantoprazole Sodium (Pantoprazole Sodium 40 Mg/10 Ml Vial) 40 mg IVPUSH BID@0630,1630 [facility] Last Admin: 02/20/22 06:35 Dose: 40 mg Documented by: JOHNNY Pharmacy Consult (Consult Rx Perform Med Rec) 1 each MISCELLANE ONCE PRN PRN Reason: Consult order Sodium Chloride (0.9 % Sodium Chloride Flush 3 Ml Syringe) 3 ml IVFLUSH QSHIFT [facility] Last Admin: 02/20/22 02:32 Dose: 3 ml Documented by: JOHNNY Labs CBC & Chem 7: 02/20/22 06:15 02/20/22 06:15 Labs: Laboratory Results - last 24 hr 02/19/22 02/19/22 02/19/22 22:02 22:02 22:52 MCV 94.3 MCH 29.9 MCHC 31.7 RDW 13.5 Plt Count 168 MPV 11.1 Immature Gran % (Auto) Neut % (Auto) Lymph % (Auto) [place] % (Auto) Eos % (Auto) Baso % (Auto) Lymph # (Auto) [place] # (Auto) Eos # (Auto) Baso # (Auto) Abs Immat Gran (auto) Absolute Neuts (auto) Absolute Nucleated RBC 0.000 Nucleated RBC % (auto) 0.0 Anion Gap 15 Estim Creat Clear Calc 93.6 Estimated GFR > 60 Random Glucose 123 H Calcium 9.0 Total Bilirubin 0.2 AST 19 D ALT 13 Alkaline Phosphatase 42 D Total Protein 7.3 Albumin 3.9 Stool Occult Blood POSITIVE COVID-19 ([facility]) COVID-19 [employer] Com Blood Type Antibody Screen 02/20/22 02/20/22 02/20/22 00:44 01:19 06:15 MCV 95.4 MCH 29.1 MCHC 30.5 L RDW 13.3 Plt Count 148 L MPV 11.2 Immature Gran % (Auto) 0.3 Neut % (Auto) 59.5 Lymph % (Auto) 28.3 [place] % (Auto) 9.1 Eos % (Auto) 2.2 Baso % (Auto) 0.6 Lymph # (Auto) 2.0 [place] # (Auto) 0.6 Eos # (Auto) 0.2 Baso # (Auto) 0.0 Abs Immat Gran (auto) 0.02 Absolute Neuts (auto) 4.1 Absolute Nucleated RBC 0.000 Nucleated RBC % (auto) 0.0 Anion Gap Estim Creat Clear Calc Estimated GFR Random Glucose Calcium Total Bilirubin AST ALT Alkaline Phosphatase Total Protein Albumin Stool Occult Blood COVID-19 ([facility]) Negative COVID-19 [employer] Com See Note Blood Type O Positive Antibody Screen NEGATIVE 02/20/22 06:15 MCV MCH MCHC RDW Plt Count MPV Immature Gran % (Auto) Neut % (Auto) Lymph % (Auto) [place] % (Auto) Eos % (Auto) Baso % (Auto) Lymph # (Auto) [place] # (Auto) Eos # (Auto) Baso # (Auto) Abs Immat Gran (auto) Absolute Neuts (auto) Absolute Nucleated RBC Nucleated RBC % (auto) Anion Gap 14 Estim Creat Clear Calc 105.3 Estimated GFR > 60 Random Glucose 127 H Calcium 8.7 Total Bilirubin AST ALT Alkaline Phosphatase Total Protein Albumin Stool Occult Blood COVID-19 ([facility]) COVID-19 Clin Com Blood Type Antibody Screen Assessment and Plan (1) Acute lower gastrointestinal bleeding: Status: Acute Plan 76-year-old female with past medical history of COPD,? NICO,? HTN,? diabetes,? who presents to the hospital with acute GI bleed Acute GI bleed - ? likely? lower GI bleed,diverticular versus upper GI bleed less likely - ? Patient is hemodynamically stable, h/hstable around 10.8 -? CT abdomen negative continue patient on PPI clear liquids -? hold aspirin -? GI consulted -? follow H&H next will be around 8 pm #? hypertension: uncontrolled -? stable -? continue home medications #? diabetes -? will anti hyperglycemics -? low-dose sliding scale insulin #? NICO -? CPAP at bedtime ?DVT prophylaxis:? SCDs inpatient need:Gi bleed -Gi eval and workup pending Quality Stroke Does the patient have a stroke diagnosis?: No VTE Prior VTE?: No VTE Risk Level:: Medical - moderate - high VTE Device Contraindication: N/A - Device Ordered VTE Drug Contraindication: Treatment Not Indicated
--- NOTE | 2022-02-20 08:27 | PHA.MEDREC ---
Pharmacy Consult ? Medication Reconciliation Pharmacy has completed the medication reconciliation. Patient had prescripition labels for most of her mediations. She was able to confirm any medications she did not have a label for. Sherry Thomas, JarettD
[2022-02-20] MEDS: Multivitamin TABLET 1 TAB PO (09:11)
[2022-02-20] MEDS: hydrALAZINE HCl 10 MG TABLET PO ×3 (09:11→21:12)
[2022-02-20] MEDS: carvediloL 12.5 MG TABLET PO ×2 (09:11→21:12)
--- NOTE | 2022-02-20 10:40 | PC.NURSE ---
hospitalist down to see pt. no bleeding noted. pt aware of plan of care to see gi and remain NPO at this time. denied having any questions.
[2022-02-20 13:06] LABS: Glucose, Whole Blood 100 mg/dL (60-115)
--- NOTE | 2022-02-20 17:07 | MHC.SHP ---
Pre-Procedural Eval Section A Date of Service: 02/20/22 The patient is an INPATIENT: Yes Changes since office visit: No Cold of Flu in the past 2 weeks, No New Medical Problems, No Changes in Medication and No Patient answered all questions The History & Physical has been completed within 30 days and I have reviewed it.: Yes Section B Chief Complaint: GI Bleed Allergies: Allergies Allergy/AdvReac Type Severity Reaction Status Date / Time No Known Allergies Allergy Verified 02/19/22 18:46 [No Known Allergies*] Plan I have reviewed the history and physical and performed a pertinent physical examination on my patient. No changes have occurred unless specified.
--- NOTE | 2022-02-20 17:07 | PM.EVENT ---
Event Note Date of Service: 02/20/22 Event Note: GI Consult Admitted with rectal bleeding, stable hematocrit. Colonoscopy 02/21 for further evaluation Pt aware of risks and benefits and agrees to proceed.
--- NOTE | 2022-02-20 17:22 | PC.NURSE ---
report given to tylor
[2022-02-20 17:32] LABS: Glucose, Whole Blood 146 mg/dL (60-115)
[2022-02-20] MEDS: amLODIPine Besylate 2.5 MG TABLET PO (17:38)
[2022-02-20 20:19] LABS: Hematocrit 38.2 % (37.0-47.0); Hemoglobin 12.1 g/dl (12.0-16.0)
[2022-02-20 21:01] LABS: Glucose, Whole Blood 98 mg/dL (60-115)
[2022-02-20] MEDS: PEG 3350/Na Sulf,Bicarb,Cl/KCL 4,000 ML SOLN.RECON 4000 ML PO (21:17)
[2022-02-21] MEDS: 0.9 % Sodium Chloride Flush 3 ML SYRINGE IVFLUSH ×2 (01:23→07:42)
--- NOTE | 2022-02-21 03:02 | CONS_ITS ---
DATE OF SERVICE: 02/20/2022 REFERRING PHYSICIAN: Armando Noel REASON FOR CONSULTATION: Rectal bleeding. HISTORY OF PRESENT ILLNESS: The patient is a pleasant 76-year-old woman who was admitted to the hospital after presenting to the emergency room from home yesterday where she developed painless rectal bleeding with bright red blood, stool, and clots. She has not had this before. She was evaluated in the emergency department and a rectal examination showed maroon-colored blood. She was admitted to the hospital and monitored with serial hematocrits. Her hematocrit this morning was 35.4 and last night was 36.3. She has not required blood transfusion. There has been no reported bleeding from nursing today. PAST MEDICAL HISTORY: 1. Diabetes. 2. Hypertension. 3. Gastroesophageal reflux disease. 4. Sleep apnea. 5. COPD. CURRENT MEDICATIONS: Her current medication list is reviewed in the chart. She was on aspirin at home. ALLERGIES: THERE ARE NONE REPORTED. FAMILY HISTORY: This is reviewed with the patient and is noncontributory. SOCIAL HISTORY: She denies tobacco, alcohol, and substance use. REVIEW OF SYSTEMS: SKIN: No pruritus. HEENT: Negative. CARDIOPULMONARY: No shortness of breath or chest pain. GASTROINTESTINAL: As above. GENITOURINARY: Negative. NEUROPSYCHIATRIC: Negative. PHYSICAL EXAMINATION: GENERAL: Shows a pleasant female, lying in bed. VITAL SIGNS: Reviewed in the electronic medical record and are stable. SKIN: Anicteric. HEENT: Shows no scleral icterus. NECK: Without lymphadenopathy or thyromegaly. LUNGS: Clear. HEART: Shows a regular rate and rhythm. S1, S2. No murmur. ABDOMEN: Soft without focal masses or tenderness. Bowel sounds are present. No organomegaly is noted. EXTREMITIES: Without edema. LABORATORY DATA: Reviewed. IMPRESSION: Lower gastrointestinal bleeding. The differential diagnosis for this includes diverticular bleeding, hemorrhoidal bleeding, and bleeding from other sources like AVMs or tumors. Her last colonoscopy showed diverticulosis in 2017. I discussed colonoscopy with her including risks and benefits. She understands and agrees to proceed. This will be arranged for tomorrow. Thanks for asking me to see her. I will follow her in the hospital with you. MD GERMANIA Huang/JODIE / [id number]
[2022-02-21 04:00] VITALS: BP 158/73; PULSE 79; RESP 17; TEMP 36.1; O2SAT 98
[2022-02-21 05:11] LABS: Glucose, Whole Blood 97 mg/dL (60-115)
[2022-02-21 06:22] LABS: Hematocrit 37.7 % (37.0-47.0); Hemoglobin 11.8 g/dl (12.0-16.0); Mean Corpuscular HGB Conc 31.3 g/dl (31.0-35.0); Mean Corpuscular Hemoglobin 29.7 pg (27.0-33.0); Mean Platelet Volume 10.8 fL (9.4-12.3); Platelet Count 172 X10*3/uL (160-400); Red Blood Count 3.97 X10*6/uL (4.20-5.50); Red Cell Distribution Width 13.3 % (11.0-16.0); White Blood Count 6.4 X10*3/uL (4.8-10.8)
[2022-02-21] MEDS: Pantoprazole Sodium 40 MG/10 ML VIAL IVPUSH (06:26)
--- NOTE | 2022-02-21 06:27 | PC.NURSE ---
Addendum entered by Shama Das RN 02/21/22 06:34: blood sugar at 5 am was 97 Original Note: WANDA PT FINISHED / OF CONTAINER. before 12 mn she had several liquid bloody stools with few dark chunks. she didnt c/o dizziness in am or pain we checked her blood sugar was 89.
[2022-02-21 07:28] VITALS: BP 164/74; PULSE 65; RESP 18; TEMP 36.1; O2SAT 96
[2022-02-21 07:42] LABS: Glucose, Whole Blood 104 mg/dL (60-115)
[2022-02-21] MEDS: carvediloL 12.5 MG TABLET PO (07:42)
[2022-02-21] MEDS: hydrALAZINE HCl 10 MG TABLET PO (07:42)
[2022-02-21 10:10] VITALS: BP 145/74; PULSE 68; RESP 18; TEMP 36; O2SAT 94
[2022-02-21 10:29] LABS: Glucose, Whole Blood 119 mg/dL (60-115)
--- NOTE | 2022-02-21 10:32 | P.CONAN_ITS ---
HPI - Anesthesia Eval Consult details Narrative: 76 yo female patient for colonoscopy [facility] Active Problems Active Problems: All Active Problems (Updated 02/20/22 @ 01:33 by Caleb Mane MD) Acute lower gastrointestinal bleeding (Acute) Varicose veins of right lower extremity with inflammation (Acute) NICO. Uses CPAP machine at night Increased BMI 44.4 Past Medical History Medical History COPD (chronic obstructive pulmonary disease) Diabetes mellitus GERD (gastroesophageal reflux disease) Hypertension Obesity hypoventilation syndrome NICO (obstructive sleep apnea) Family History Family History Mother Diabetes Family history of problems with anesthesia: No Surgical History Surgical History S/P laparoscopic cholecystectomy (07/14/21) History of Problems with Anesthesia: No Social History Social History Household Members: None Housing: Apartment Do you presently have visiting nurse or other home services: Yes Patient Tobacco Use Status: Former Tobacco user Tobacco use type: Cigarette Years Smoked: 20 service: No Current occupational status: unemployed and disabled Meds Allergies Allergy/AdvReac Type Severity Reaction Status Date / Time No Known Allergies Allergy Verified 02/19/22 18:46 [No Known Allergies*] Active Medications: Current Medications Acetaminophen (Acetaminophen 325 Mg Tablet) 650 mg PO Q6H PRN PRN Reason: Pain, Mild (Pain Scale 1-3) Albuterol Sulfate (Albuterol Sulfate 90 Mcg 8 Gm Inhaler) 2 puff INHALE Q6H PRN PRN Reason: Wheezing Carvedilol (Carvedilol 12.5 Mg Tablet) 12.5 mg PO BID [facility]; Protocol Last Admin: 02/21/22 07:42 Dose: 12.5 mg Documented by: Dextrose (Dextrose 50 % 25 Gm/50 Ml Syringe) 25 gm IVPUSH Q15M PRN; Protocol PRN Reason: per Hypoglycemia Standing Ord. Glucose (Glucose Gel 15 Gm Gel..Gram.) 15 gm PO Q15M PRN; Protocol PRN Reason: per Hypoglycemia Standing Ord. Hydralazine HCl (Hydralazine Hcl 10 Mg Tablet) 10 mg PO TID [facility]; Protocol Last Admin: 02/21/22 07:42 Dose: 10 mg Documented by: Insulin Human Lispro (Insulin Lispro 100 Unit/Ml 3 Ml Vial) 0 unit SUBCUT QIDACHS [facility]; Protocol Last Admin: 02/21/22 07:43 Dose: Not Given Documented by: Multivitamins/Vitamin C (Multivitamin Tablet) 1 tab PO DAILY [facility] Last Admin: 02/21/22 07:43 Dose: Not Given Documented by: Non-Formulary Medication (Isosorbide Mononitrate) 20 mg PO DAILY [facility] Ondansetron HCl (Ondansetron Hcl 4 Mg/2 Ml Vial) 4 mg IVPUSH Q8H PRN PRN Reason: Nausea and Vomiting Pantoprazole Sodium (Pantoprazole Sodium 40 Mg/10 Ml Vial) 40 mg IVPUSH BID @0630,1630 [facility] Last Admin: 02/21/22 06:26 Dose: 40 mg Documented by: Pharmacy Consult (Consult Rx Perform Med Rec) 1 each MISCELLANE ONCE PRN PRN Reason: Consult order Sodium Chloride (0.9 % Sodium Chloride Flush 3 Ml Syringe) 3 ml IVFLUSH QSHIFT [facility] Last Admin: 02/21/22 07:42 Dose: 3 ml Documented by: Home Medications Medication Instructions Recorded Confirmed Last Taken Type aspirin 81 mg tablet,delayed 1 tab PO BEDTIME 07/12/21 02/20/22 02/19/22 History release calcium carbonate 600 mg-vitamin 1 tab PO BID 07/12/21 02/20/22 02/19/22 History D3 10 mcg (400 unit) tablet carvedilol 12.5 mg tablet 1 tab PO BID 07/12/21 02/20/22 02/19/22 History furosemide 40 mg tablet 1 tab PO QAM 07/12/21 02/20/22 02/19/22 History hydralazine 10 mg tablet 1 tab PO TID 07/12/21 02/20/22 02/19/22 History isosorbide mononitrate 20 mg tablet 20 mg PO DAILY 07/12/21 02/20/22 02/19/22 History losartan 100 mg tablet 1 tab PO QAM 07/12/21 02/20/22 02/19/22 History multivitamin 1 tab PO QAM 07/12/21 02/20/22 02/19/22 History pravastatin 40 mg tablet 1 tab PO QPM 07/12/21 02/20/22 02/19/22 History potassium chloride 10 mEq 10 meq PO BID 07/26/21 02/20/22 02/19/22 History tablet,extended release lancets 33 gauge (TRUEplus Lancets) #100 ea 09/20/21 02/19/22 History blood sugar diagnostic (FreeStyle #10 ea 10/06/21 02/19/22 History Lite Strips) sitagliptin 50 mg-metformin ER 1 tab PO DAILY 02/20/22 02/20/22 02/19/22 History 1,000 mg tablet,extended release 24h mp (Janumet XR) Exam Exam Date and Time: February 21, 2022 1032 Height,Weight and Vital Signs: Height 5 ft 3 in Weight 113.6 kg Last Vital Signs Temp 96.8 F 02/21/22 10:10 Pulse 68 02/21/22 10:10 Resp 18 02/21/22 10:10 BP 145/74 H 02/21/22 10:10 Pulse Ox 94 02/21/22 10:10 Pertinent Lab Results Pertinent Lab Results: Laboratory Tests 02/19/22 02/19/22 02/19/22 22:02 22:02 22:52 WBC 9.2 RBC 3.85 L Hgb 11.5 L Hct 36.3 L MCV 94.3 MCH 29.9 MCHC 31.7 RDW 13.5 Plt Count 168 MPV 11.1 Immature Gran % (Auto) Neut % (Auto) Lymph % (Auto) [place] % (Auto) Eos % (Auto) Baso % (Auto) Lymph # (Auto) [place] # (Auto) Eos # (Auto) Baso # (Auto) Abs Immat Gran (auto) Absolute Neuts (auto) Absolute Nucleated RBC 0.000 Nucleated RBC % (auto) 0.0 Sodium 142 Potassium 4.0 D Chloride 97 Carbon Dioxide 34 H Anion Gap 15 BUN 11 Creatinine 0.63 Estim Creat Clear Calc 93.6 Estimated GFR > 60 POC Glucose Random Glucose 123 H Calcium 9.0 Total Bilirubin 0.2 AST 19 D ALT 13 Alkaline Phosphatase 42 D Total Protein 7.3 Albumin 3.9 Stool Occult Blood POSITIVE COVID-19 ([facility]) COVID-19 Clin Com Blood Type Antibody Screen 02/20/22 02/20/22 02/20/22 00:44 01:19 06:15 WBC 6.9 RBC 3.71 L Hgb 10.8 L Hct 35.4 L MCV 95.4 MCH 29.1 MCHC 30.5 L RDW 13.3 Plt Count 148 L MPV 11.2 Immature Gran % (Auto) 0.3 Neut % (Auto) 59.5 Lymph % (Auto) 28.3 [place] % (Auto) 9.1 Eos % (Auto) 2.2 Baso % (Auto) 0.6 Lymph # (Auto) 2.0 [place] # (Auto) 0.6 Eos # (Auto) 0.2 Baso # (Auto) 0.0 Abs Immat Gran (auto) 0.02 Absolute Neuts (auto) 4.1 Absolute Nucleated RBC 0.000 Nucleated RBC % (auto) 0.0 Sodium Potassium Chloride Carbon Dioxide Anion Gap BUN Creatinine Estim Creat Clear Calc Estimated GFR POC Glucose Random Glucose Calcium Total Bilirubin AST ALT Alkaline Phosphatase Total Protein Albumin Stool Occult Blood COVID-19 ([facility]) Negative COVID-19 Clin Com See Note Blood Type O Positive Antibody Screen NEGATIVE 02/20/22 02/20/22 02/20/22 06:15 13:02 17:26 WBC RBC Hgb Hct MCV MCH MCHC RDW Plt Count MPV Immature Gran % (Auto) Neut % (Auto) Lymph % (Auto) [place] % (Auto) Eos % (Auto) Baso % (Auto) Lymph # (Auto) [place] # (Auto) Eos # (Auto) Baso # (Auto) Abs Immat Gran (auto) Absolute Neuts (auto) Absolute Nucleated RBC Nucleated RBC % (auto) Sodium 145 Potassium 3.8 Chloride 99 Carbon Dioxide 36 H Anion Gap 14 BUN 8 L Creatinine 0.56 Estim Creat Clear Calc 105.3 Estimated GFR > 60 POC Glucose 100 146 H Random Glucose 127 H Calcium 8.7 Total Bilirubin AST ALT Alkaline Phosphatase Total Protein Albumin Stool Occult Blood COVID-19 ([facility]) COVID-19 Clin Com Blood Type Antibody Screen 02/20/22 02/20/22 02/21/22 20:04 20:46 05:07 WBC RBC Hgb 12.1 Hct 38.2 MCV MCH MCHC RDW Plt Count MPV Immature Gran % (Auto) Neut % (Auto) Lymph % (Auto) [place] % (Auto) Eos % (Auto) Baso % (Auto) Lymph # (Auto) [place] # (Auto) Eos # (Auto) Baso # (Auto) Abs Immat Gran (auto) Absolute Neuts (auto) Absolute Nucleated RBC Nucleated RBC % (auto) Sodium Potassium Chloride Carbon Dioxide Anion Gap BUN Creatinine Estim Creat Clear Calc Estimated GFR POC Glucose 98 97 Random Glucose Calcium Total Bilirubin AST ALT Alkaline Phosphatase Total Protein Albumin Stool Occult Blood COVID-19 ([facility]) COVID-19 [employer] Blood Type Antibody Screen 02/21/22 02/21/22 02/21/22 05:43 07:25 10:13 WBC 6.4 RBC 3.97 L Hgb 11.8 L Hct 37.7 MCV 95.0 MCH 29.7 MCHC 31.3 RDW 13.3 Plt Count 172 MPV 10.8 Immature Gran % (Auto) Neut % (Auto) Lymph % (Auto) [place] % (Auto) Eos % (Auto) Baso % (Auto) Lymph # (Auto) [place] # (Auto) Eos # (Auto) Baso # (Auto) Abs Immat Gran (auto) Absolute Neuts (auto) Absolute Nucleated RBC 0.000 Nucleated RBC % (auto) 0.0 Sodium Potassium Chloride Carbon Dioxide Anion Gap BUN Creatinine Estim Creat Clear Calc Estimated GFR POC Glucose 104 119 H Random Glucose Calcium Total Bilirubin AST ALT Alkaline Phosphatase Total Protein Albumin Stool Occult Blood COVID-19 ([facility]) COVID-19 [employer] Blood Type Antibody Screen Airway Mallampati Class: III TM Dist: >3cm Neck ROM: Full Denture: Upper Loose/Missing/Broken Teeth: Yes (Only few teeth on bottom. None loose or broken) Heart: RRR Lungs: CTAB. No wheezing Assessment and Plan Final Anesthetic Review Family History of Problems with Anesthesia: No History of Problems with Anesthesia: No NPO: Yes ASA Class: III Final Preanesthetic Review: No Changes in Pt Med Stat, Meds/Allgs Chart Reviewed, Consent Obtained/Reviewed and Anes Risks/Benef Reviewed Patient Risk: Intermediate Procedure Risk: Low Assessment/Block/Sedation in SS: Assess/Block/Sedation-SS Anesthetic Plan Anesthetic Plan: MAC: Disposition: Standard PACU
--- NOTE | 2022-02-21 10:37 | P.PNIM_ITS ---
Subjective Subjective Date of Service: 02/21/22 Interval History: no acute issues overnight. Tolerated prep. Review of Systems Denies chest pain Denies shortness of breath Denies nausea vomiting diarrhea Denies fever chills Physical Exam Vital Signs: Vital Signs: Last Vital Signs Temp 96.8 F 02/21/22 10:10 Pulse 68 02/21/22 10:10 Resp 18 02/21/22 10:10 BP 145/74 H 02/21/22 10:10 Pulse Ox 94 02/21/22 10:10 BMI result Body Mass Index 44.4 Const: Other: no acute distress Resp: Other: clear to auscultation bilaterally no rales rhonchi or wheezes Cardio: Other: no S4; positive S1-S2; no S3 murmurs rubs or gallops GI: Other: soft nontender nondistended. Bowel sounds x4 Extrem: Other: no edema bilaterally Objective Data Active Medications Acetaminophen (Acetaminophen 325 Mg Tablet) 650 mg PO Q6H PRN PRN Reason: Pain, Mild (Pain Scale 1-3) Albuterol Sulfate (Albuterol Sulfate 90 Mcg 8 Gm Inhaler) 2 puff INHALE Q6H PRN PRN Reason: Wheezing Carvedilol (Carvedilol 12.5 Mg Tablet) 12.5 mg PO BID [facility]; Protocol Last Admin: 02/21/22 07:42 Dose: 12.5 mg Documented by: BIN Dextrose (Dextrose 50 % 25 Gm/50 Ml Syringe) 25 gm IVPUSH Q15M PRN; Protocol PRN Reason: per Hypoglycemia Standing Ord. Glucose (Glucose Gel 15 Gm Gel..Gram.) 15 gm PO Q15M PRN; Protocol PRN Reason: per Hypoglycemia Standing Ord. Hydralazine HCl (Hydralazine Hcl 10 Mg Tablet) 10 mg PO TID [facility]; Protocol Last Admin: 02/21/22 07:42 Dose: 10 mg Documented by: BIN Lactated Ringer's (Lr) 1,000 mls @ 100 mls/hr IVCONT .Q10H [facility] Insulin Human Lispro (Insulin Lispro 100 Unit/Ml 3 Ml Vial) 0 unit SUBCUT QIDACHS [facility]; Protocol Last Admin: 02/21/22 07:43 Dose: Not Given Documented by: BIN Non-Admin Reason: No Insulin Coverage Multivitamins/Vitamin C (Multivitamin Tablet) 1 tab PO DAILY [facility] Last Admin: 02/21/22 07:43 Dose: Not Given Documented by: BIN Non-Admin Reason: NPO Non-Formulary Medication (Isosorbide Mononitrate) 20 mg PO DAILY [facility] Ondansetron HCl (Ondansetron Hcl 4 Mg/2 Ml Vial) 4 mg IVPUSH Q8H PRN PRN Reason: Nausea and Vomiting Pantoprazole Sodium (Pantoprazole Sodium 40 Mg/10 Ml Vial) 40 mg IVPUSH BID@0630,1630 [facility] Last Admin: 02/21/22 06:26 Dose: 40 mg Documented by: NORIS Pharmacy Consult (Consult Rx Perform Med Rec) 1 each MISCELLANE ONCE PRN PRN Reason: Consult order Sodium Chloride (0.9 % Sodium Chloride Flush 3 Ml Syringe) 3 ml IVFLUSH QSHIFT [facility] Last Admin: 02/21/22 07:42 Dose: 3 ml Documented by: BIN Labs CBC & Chem 7: 02/21/22 05:43 02/20/22 06:15 Labs: Laboratory Results - last 24 hr 02/20/22 02/20/22 02/20/22 13:02 17:26 20:46 MCV MCH MCHC RDW Plt Count MPV Absolute Nucleated RBC Nucleated RBC % (auto) POC Glucose 100 146 H 98 02/21/22 02/21/22 02/21/22 05:07 05:43 07:25 MCV 95.0 MCH 29.7 MCHC 31.3 RDW 13.3 Plt Count 172 MPV 10.8 Absolute Nucleated RBC 0.000 Nucleated RBC % (auto) 0.0 POC Glucose 97 104 02/21/22 10:13 MCV MCH MCHC RDW Plt Count MPV Absolute Nucleated RBC Nucleated RBC % (auto) POC Glucose 119 H Assessment and Plan (1) Acute lower gastrointestinal bleeding: Status: Acute Plan 76-year-old female with past medical history of COPD,? NICO,? HTN,? diabetes,? who presents to the hospital with acute GI bleed. for colonoscopy today 1. Acute LGI bleed -likely? lower GI bleed,diverticular versus upper GI bleed less likely -colononoscopy this am; further plans based on forthcoming data -continue patient on PPI - serial CBCs 2.Hypertension -acceptable control presently -continue home medications - adjust as clinically indicated 3.DiabetesII - Lispro correctional scale - t.i.d. a.c. and point cares 4.NICO -CPAP at bedtime ?DVT prophylaxis:SCDs full code requires ongoing inpatient evaluation for lower GI bleed including colonoscopy Quality Stroke Does the patient have a stroke diagnosis?: No VTE Prior VTE?: No VTE Risk Level:: Medical - moderate - high VTE Device Contraindication: N/A - Device Ordered VTE Drug Contraindication: Treatment Not Indicated
[2022-02-21] MEDS: Lactated Ringers 1,000 ML 100 ML IVCONT (10:47)
--- NOTE | 2022-02-21 12:06 | P.BOP_ITS ---
Brief Operative Note Date of Service: 02/21/22 Pre-op diagnosis: rectal bleed Post-op diagnosis: same (diverticulosis) Surgeon: Anup Crump Anesthesia: MAC Was an Director Integrated used for this Procedure?: No Estimated blood loss (mL): 0 Pathology: none sent Condition: stable Disposition: PACU
--- NOTE | 2022-02-21 12:06 | PM.OP ---
Brief Operative Note Date of Service: 02/21/22 Pre-op diagnosis: rectal bleed Post-op diagnosis: same (diverticulosis) Surgeon: nAup Crump Anesthesia: MAC Was an Rope Making Machine Operator used for this Procedure?: No Estimated blood loss (mL): 0 Pathology: none sent Condition: stable Disposition: PACU
--- NOTE | 2022-02-21 12:07 | PM.EVENT ---
Event Note Date of Service: 02/21/22 Event Note: Colonoscopy note dictated sm amount of old blood in left and tv colon nonbleeding tics in tv colon mod size int hemorrhoids terminal ileum clear, no blood suspect diverticular bleed, self limited. advance diet, d/c when stable.
[2022-02-21 12:08] VITALS: BP 110/64; PULSE 66; RESP 16; TEMP 36.3; O2SAT 94
[2022-02-21 12:23] VITALS: BP 131/67; PULSE 63; RESP 16; TEMP 36.3; O2SAT 96
[2022-02-21 13:00] VITALS: BP 155/83; PULSE 67; RESP 17; TEMP 36.2; O2SAT 99
--- NOTE | 2022-02-21 13:36 | OP_ITS ---
SURGEON: Anup Crump MD INDICATIONS: Lower GI bleeding. PREOPERATIVE DIAGNOSIS: POSTOPERATIVE DIAGNOSIS: PROCEDURE PERFORMED: Colonoscopy to the terminal ileum. ESTIMATED BLOOD LOSS: COMPLICATIONS: ANESTHESIA: ASSISTANTS: SPECIMENS: MEDICATIONS: Monitored anesthesia care. DESCRIPTION OF PROCEDURE: History and physical were performed. The risks and benefits of the procedure were explained to the patient. Informed consent was obtained. The patient was placed in the left lateral decubitus position. A digital rectal exam was performed and was found to be normal. The Olympus pediatric video colonoscope was introduced into the rectum and advanced to the cecum without difficulty. The cecum was identified by transillumination, palpation, and identification of the ileocecal valve. Examination was performed. The scope was removed. She tolerated the procedure well and was taken to recovery area in stable condition. FINDINGS: The terminal ileum was briefly examined and appeared normal. There was no blood in the ileum. There was liquid stool and some formed stool as well as some old blood, which was mainly present in the left colon and transverse colon, but not at the right colon. There was diverticulosis, which was mainly present in the transverse colon. There was no active bleeding seen. Moderate-sized hemorrhoids were noted on retroflexion. In the right colon was a 15 x 6 mm lipoma, which was not bleeding. No polyps were identified. No biopsies were obtained. IMPRESSION: Diverticulosis. RECOMMENDATION: 1. Advanced diet. 2. Discharge when stable. 3. Repeat colonoscopy for screening is not recommended based on age. MD GERMANIA Huang/JODIE / [id number] MTDGloria
--- NOTE | 2022-02-21 13:53 | MHC.CM.PN ---
Addendum entered by Reentta Malave 02/21/22 13:54: SHE LIVES ALONE WITH ASSIST OF TRAFFIC COUNTER 2 HOURS DAILY. SHE RECEIVES TRAFFIC COUNTER SERVICES THRU [facility]. DP RESUME TRAFFIC COUNTER SERVICES THRU [facility] WITH FAMILY TRANSPORT. A HCP HAS BEEN DOCUMENTED AND PLACED ON THE CHART. COPIES HAVE BEEN PROVIDED TO THE PATIENT. VAX X 2 MODERNA Original Note: IMM 02/21/22 FEMALE DX GIB SCOPED TODAY. PATIENT IS MEDICALLY CLEARED FOR DISCHARGE.
--- NOTE | 2022-02-21 14:36 | PM.DS ---
DS: Providers Provider Date of Service: 02/21/22 Date of admission: 02/20/22 01:33 Date of discharge: 02/21/22 Primary care physician: Carmine Patel MD Consults: 02/20/22 01:33 Consult to Gastroenterology Routine Consulting Provider: Jeovany Christianson Reason for consultation: GI bleed Has provider been notified: No DS: Diagnosis Discharge Diagnosis (1) Acute lower gastrointestinal bleeding: Status: Acute DS: Summary Hospital Course Hospital Course: 76 year old female with past medical history of COPD, diabetes, hypertension, GERD, NICO, who presents to the hospital with complaints of multiple episodes of acute GI bleed.? Patient reports that she had bright red blood per rectum throughout the day, started today, no previous similar episodes, she has no abdominal pain nausea or vomiting, reports watery diarrhea along with blood.? Reports no history of hemorrhoids.? Reports that she had a colonoscopy done about 2 years ago which was normal. ? Patient denies any fever or chills, no headache or change in vision, no chest pain, ? Noshortness of breath,? no urinary symptoms and no lower extremity edema. patient denies having any dizziness,? patient denies any history of using? NSAIDs. In the emergency room, hemoglobin stable 11.[address] failed to demonstrate any acute pathology responsible for bleed. Seen in consultation by GI and this morning 02/21.... colonoscopy done which demonstrated diverticulitis without active bleeding. Patient tolerated diet case discussed with GI who agrees; outpatient follow-up with PCP hold aspirin until that time Time Spent with Patient Time attestation: Total time spent providing and/or coordinating discharge services: Discharge coordination time: Greater than 30 minutes Quality: Safe Use of Opioids Does Pt have an Active Cancer Diagnosis on the Problem List?: No Quality: Stroke Does the patient have a stroke diagnosis?: No Physical Exam Vital Signs: Vital Signs: Last Vital Signs Temp 97.2 F 02/21/22 13:00 Pulse 67 02/21/22 13:00 Resp 17 02/21/22 13:00 BP 155/83 H 02/21/22 13:00 Pulse Ox 99 02/21/22 13:00 BMI result Body Mass Index 44.4 Const: Other: awake alert no acute distress Resp: Other: clear to auscultation bilaterally no rales rhonchi or Cardio: Other: no S4; positive S1-S2; no S3 murmurs rubs or gallops GI: Other: soft nontender nondistended normoactive bowel sounds x4 quadrants Extrem: Other: no edema bilaterally DS: Data Data Completed and Pending Completed studies during hospitalization [Text1]: Procedures Insertion of Endotracheal Airway into Trachea, Via Natural or Artificial Opening Endoscopic (07/12/21) Resection of Gallbladder, Percutaneous Endoscopic Approach (07/12/21) Respiratory Ventilation, Less than 24 Consecutive Hours (07/12/21) Labs on day of discharge: Laboratory Results - last 24 hr 02/20/22 02/20/22 02/20/22 17:26 20:04 20:46 WBC RBC Hgb 12.1 Hct 38.2 MCV MCH MCHC RDW Plt Count MPV Absolute Nucleated RBC Nucleated RBC % (auto) POC Glucose 146 H 98 02/21/22 02/21/22 02/21/22 05:07 05:43 07:25 WBC 6.4 RBC 3.97 L Hgb 11.8 L Hct 37.7 MCV 95.0 MCH 29.7 MCHC 31.3 RDW 13.3 Plt Count 172 MPV 10.8 Absolute Nucleated RBC 0.000 Nucleated RBC % (auto) 0.0 POC Glucose 97 104 02/21/22 10:13 WBC RBC Hgb Hct MCV MCH MCHC RDW Plt Count MPV Absolute Nucleated RBC Nucleated RBC % (auto) POC Glucose 119 H Discharge Plan Discharge Patient Disposition: Home Health Service Discharge Diagnosis: Acute lower GI Bleed Referrals: Carmine Patel MD [Primary Care Provider] - 1 Week Discharge Medications: Continued multivitamin Tablet 1 tab PO QAM 0RF furosemide 40 mg tablet 1 tab PO QAM 0RF hydralazine 10 mg tablet 1 tab PO TID 0RF carvedilol 12.5 mg tablet 1 tab PO BID 0RF pravastatin 40 mg tablet 1 tab PO QPM 0RF isosorbide mononitrate 20 mg tablet 20 mg PO DAILY 0RF losartan 100 mg tablet 1 tab PO QAM 0RF calcium carbonate-vitamin D3 600 mg(1,500mg) -400 unit tablet 1 tab PO BID 0RF Janumet XR 50-1,000 mg tablet, ER multiphase 24 hr 1 tab PO DAILY 0RF (DME) lancets [TRUEplus Lancets] 33 gauge misc See Rx Instructions ea topical .MEDSUPPLY Qty: 100 0RF Rx Instructions: As directed (DME) FreeStyle Lite Strips Strip See Rx Instructions ea Not Applicable .MEDSUPPLY Qty: 10 0RF Rx Instructions: As directed potassium chloride 10 mEq tablet extended release 10 meq PO BID 0RF Discontinued aspirin 81 mg tablet,delayed release (DR/EC) 1 tab PO BEDTIME 0RF Discharge Orders: Discharge Order (Routine); Ordered 02/21/22 Ordered By: Ace Koch Diet: advance to usual diet Activity on Discharge: As tolerated Stand Alone Forms: Patient Portal Discharge page Care Plan Goals: follow-up with PCP 1-2 weeks Health Concerns: stop aspirin until seen by PCP. Plan of Treatment: Resume all pre-hospital therapies and medications Assessment: see discharge summary
[2022-02-21 15:27] LABS: Glucose, Whole Blood 121 mg/dL (60-115)
== END 2022-02-21 15:27 | disposition home health service (06) | DRG 378 ==
LOC: HO.ED 02-20 01:33 → HO.EDOVER 02-20 01:42 → HO.S3 02-20 17:10
PROVIDERS: Internal Medicine; Internal Medicine Gastroenterology; Admitting Provider Internal Medicine; Emergency Provider Internal Medicine; PCP Internal Medicine; Visit Provider Hospitalist
PROC: 0DJD8ZZ Inspection of Lower Intestinal Tract, Via Natural or Artificial Opening Endoscopic (ICD-10-PCS; CPT 45378; principal; 2022-02-21 10:50)
DX: K57.31 Diverticulosis of large intestine without perforation or abscess with bleeding (principal); E66.2 Morbid (severe) obesity with alveolar hypoventilation; Z68.41 Body mass index [BMI] 40.0-44.9, adult; D17.79 Benign lipomatous neoplasm of other sites; J44.9 Chronic obstructive pulmonary disease, unspecified; E11.9 Type 2 diabetes mellitus without complications; K64.8 Other hemorrhoids; K21.9 Gastro-esophageal reflux disease without esophagitis; Z20.822 Contact with and (suspected) exposure to COVID-19; Z87.891 Personal history of nicotine dependence; Z79.899 Other long term (current) drug therapy
CPT/HCPCS: 36415; 74176; 80048; 80053; 82272; 82947; 85014; 85018; 85025; 85027; 86850; 86900; 86901; 87635; 99285

== ENCOUNTER 2022-08-18 09:35 | Outpatient (REF) | payer OTHER, SELFPAY ==
--- NOTE | 2022-08-18 | PFT_ITS ---
FLOWS: FEV1 44% of predicted at 0.89 L. FVC 36% of predicted at 0.96 L. FEV1 to FVC ratio of 0.92. No bronchodilator response except in small to medium airways. LUNG VOLUMES: Total lung capacity 52% of predicted at 2.57 L. Residual volume 59% of predicted at 1.34 L. Slow vital capacity 46% of predicted at 1.22 L. Expiratory reserve volume 50% of predicted at 0.28 L. Diffusion capacity is mildly decreased, diffusion capacity corrects to normal after adjustment for alveolar ventilation. IMPRESSION: Severe restrictive ventilatory defect with no bronchodilator response except in small to medium airways. Decreased expiratory reserve volume suggests extrathoracic restriction likely secondary to abdominal obesity. Combination of restrictive ventilatory defect with decreased diffusion capacity suggests underlying pulmonary parenchymal disease. Clinical correlation is advised. MD MARK Evans/MODL / [id number]
== END 2022-08-18 09:36 | disposition home or self-care (01) ==
LOC: HO.RESP 09:35
PROVIDERS: PCP Internal Medicine; Visit Provider Internal Medicine
DX: R06.89 Other abnormalities of breathing (principal)
CPT/HCPCS: 94060; 94727; 94729

== ENCOUNTER → 2022-11-15 10:58 | Outpatient (BNVA) | payer OTHER, SELFPAY | PROVIDERS: PCP Internal Medicine; Visit Provider Internal Medicine Pulmonary Disease | DX: R06.09 Other forms of dyspnea (principal); R94.2 Abnormal results of pulmonary function studies; G47.33 Obstructive sleep apnea (adult) (pediatric); E66.2 Morbid (severe) obesity with alveolar hypoventilation | CPT/HCPCS: 99212 ==

== ENCOUNTER → 2022-12-07 07:49 | Outpatient (REF) | payer OTHER, SELFPAY ==
--- NOTE | 2022-12-07 07:52 | CA_ITS ---
Transthoracic Echocardiogram Patient (Last, First, Middle): Magalie Live M Gender: Female Date of : 1945 Age: 77 Procedure Date: 12/07/2022 Procedure Type: Transthoracic Echocardiogram Location: OP Height: 160. cm Weight: 113.85 kg BSA: 2.13 m2 Heart Rate: 68 bpm BP: 110 / 75 mmHg Regulatory Affairs Internship: [facility] Referring MD: Stephane Chawla MD [employer] Operator: Anthony Liriano MD Symptoms: R06.09 - Other forms of dyspnea Study Quality: Fair ECG Rhythm: Sinus Conclusions: - 1. My systolic function with impaired relaxation filling pattern 2. Normal cardiac valvular Doppler 3. RV systolic pressures are measured to be normal on this study 4. Ascending aorta within normal limits Findings Left Ventricle Normal left ventricular size, thickness, and systolic function. The visually estimated ejection fraction is between 60-65%. Spectral Doppler is indicative of an impaired relaxation filling pattern. E/E prime ratio is <8, consistent with normal filling pressures. Right Ventricle Normal right ventricular cavity size and systolic function. Atria Both atria are normal in size. There is no evidence of interatrial shunt. Aortic Valve Normal aortic valve structure and function. There is no aortic valve stenosis. There is no aortic valve regurgitation. Mitral Valve There is mild anterior and posterior mitral leaflet thickening. There is trace mitral valve regurgitation. There is no mitral valve stenosis. Pulmonic Valve The pulmonic valve is likely normal. Tricuspid Valve Normal tricuspid valve structure. There is trace tricuspid valve regurgitation. The right ventricular systolic pressure is normal. The right ventricular systolic pressure is 31 mmHg. Normal right atrial pressure. There is no evidence of pulmonary hypertension. Great Vessels All visible segments of the aorta are normal in size. The pulmonary artery was not well visualized. Venous The inferior vena cava is normal in size and collapses greater than 50% with inspiration. Pericardium/Pleural There is no evidence of pericardial effusion. Prior Study Comparison Changes noted compared to prior study dated: 07/15/2021. RV systolic pressure is measured to be normal on this study Measurements 2D Linear Measurements IVSd: 1.07 0.6-0.9/0.6-1.0 cm LVIDd: 3.83 3.9-5.3/4.2-5.9 cm LVIDd Index: 1.80 2.4-3.2/2.2-3.1 cm/m2 LVIDs: 2.25 2.0-3.6 cm LVPWd: 1.29 0.7-1.1 cm LA Diam: 3.50 2.7-3.8/3.0-4.0 cm LAIDs Index: 1.64 1.5-2.3 cm/m2 LV Mass: 188.23 67-162/88-224 g LV Mass Index: 88.37 43-95/49-115 g/m2 LVOT Diam: 2.10 3.0+(-)1.3 cm 2D Systolic Function EF 4C: 67.30 >55% EF 2C: 57.10 >55% EF BiP: 61.60 >55% Mitral Valve MV Pk E: 0.77 MV PK A: 0.93 MV Decel Time: 289.00 E/A: 0.80 E'Lateral: 9.90 E'Medial: 7.07 E/E' Med: 10.80 E/E' Lat: 7.70 PHT: 85.00 MVA PHT: 2.59 Decel [place]: 2.65 Aortic Valve AoV Pk Camron: 1.77 AoV Mn Camron: 1.18 AoV VTI: 0.42 AoV Pk Grad: 13.00 Aov Mn Grad: 7.00 ALEX Cont.VTI: 2.34 LVOT LVOT Pk Camron: 1.20 LVOT Mn Camron: 0.82 LVOT VTI: 0.28 LVOT Pk Grad: 6.00 LVOT Mn Grad: 3.00 LVOT Diam: 2.10 LVOT Area: 3.46 Diastolic Function MV Pk E: 0.77 MV Pk A: 0.93 E/A: 0.80 E'Medial: 7.07 E/E' Med: 10.80 E' Laterial: 9.90 E/E' Lat: 7.70 Right Ventricle TAPSE (mm): 21.40 TVS' Camron: 10.60 Tricuspid Valve TR Pk Camron: 2.55 TR Pk Grad: 26.00 RA Press: 3.00 RVSP: 31.00 Great Vessels Aorta Sinus of Valsalva: 3.00 2.0-3.5 cm Ao Asc: 3.30 2.1-3.4 cm Pulmonary Valve PV Pk Camron: 1.05 Peak PV Grad: 4.00 Updated in Other Vendor System with Status of Final Anthony Liriano MD electronically signed on 12/09/2022 11:55:53 AM with status of Final
== END ==
LOC: HO.CARD 07:49
PROVIDERS: PCP Internal Medicine; Visit Provider Internal Medicine Pulmonary Disease
DX: R06.09 Other forms of dyspnea (principal)
CPT/HCPCS: 93306

== ENCOUNTER 2022-12-18 09:02 | Outpatient (REF) | payer OTHER, SELFPAY ==
--- NOTE | ~2022-12-18 | CT_ITS ---
EXAMINATION: CT CHEST WITHOUT CONTRAST CLINICAL INFORMATION: Abnormal pulmonary function tests. COMPARISON: Chest x-ray 07/14/2021. CT chest 08/13/2013 TECHNIQUE: Multidetector volumetric CT imaging of the chest was done. Axial MIP volume rendering provided. Sagittal and coronal reformatted images were obtained. This CT examination was performed using dose optimization techniques as appropriate, variously including the following: *Automated exposure control *Adjustment of mA and/or kV according to patient size (this includes techniques or standardized protocols for targeted exams where dose is matched to indication/reason for exam; i.e. extremities or head) *Use of iterative reconstruction technique DLP: 237 mGy-cm FINDINGS: JEWEL WAXER: Well-expanded lungs without acute process. LUNGS: The lungs are well-expanded with right upper lobe patchy ground-glass attenuation with air bronchogram suspicious for developing inflammatory process and/or atelectasis. Rest of the lung parenchyma is unremarkable. There is 0.9 x 0.8 x 0.9 cm nodule, right middle lobe on axial image 25/4. Previously it measured 1.2 cm. There is a 1 mm punctate subpleural noncalcified nodule om the lingula, axial image 257/5, stable. Punctate calcifications are seen in the right lower lobe. MEDIASTINUM: The thyroid lobes are symmetric and normal. The central trachea and the bronchi are widely patent. The heart size and the great vessels are normal caliber. No abnormal size mediastinal or hilar lymph nodes seen. There is no pericardial effusion. CORONARY ARTERY CALCIFICATION: Mild coronary artery calcifications are present. PLEURA: There is no pleural effusion. No pleural mass or thickening. AXILLA: Small shotty lymph nodes are seen in bilateral axilla; the largest in the right axilla lymph node measures 1.3 cm in axial image 8/3. UPPER ABDOMEN: Visualized liver, spleen, pancreas and bilateral adrenal glands are unremarkable. The gallbladder has been surgically removed. The upper poles of kidneys are unremarkable. OSSEOUS STRUCTURES: Mild exaggerated thoracic kyphosis is noted. No aggressive lytic or sclerotic process seen. There is moderate spondylosis throughout dorsal spine. CT/CT chest wo IV con IMPRESSION: 1. Improved right middle lobe pulmonary nodule since 2013 CT chest exam. Punctate 1 mm noncalcified nodule lingula and punctate calcification right lower lobe are stable. 2. Right upper lobe patchy air bronchogram and parenchymal ground-glass opacity; question developing or resolving infiltrate. Fleischner guidelines were followed.
== END 2022-12-18 09:03 | disposition home or self-care (01) ==
LOC: HO.CT 09:02
PROVIDERS: PCP Internal Medicine; Visit Provider Internal Medicine Pulmonary Disease
DX: R06.09 Other forms of dyspnea (principal); R94.2 Abnormal results of pulmonary function studies
CPT/HCPCS: 71250

== ENCOUNTER 2022-12-20 14:37 | Outpatient (REF) | payer OTHER, SELFPAY ==
--- NOTE | ~2022-12-20 | MM_ITS ---
EXAMINATION: MM SCREENING DIGITAL BREAST TOMOSYNTHESIS, BILATERAL CLINICAL INFORMATION: Screening. Asymptomatic. The lifetime risk of breast cancer based on the Tyrer-Cuzick Model is 2.2%. COMPARISON: Mammography: December 07, 2021 and studies dating back to April 13, 2016. TECHNIQUE: Digital breast tomosynthesis is performed in both the craniocaudal and mediolateral oblique views along with computer-aided detection (CAD). Synthesized 2D images are generated from the tomosynthesis. FINDINGS: The breasts are almost entirely fatty (ACR BI-RADS breast composition Category a). There are no new significant masses, abnormal calcifications, or other abnormalities. There is been slow increase in vascular calcifications. MM/MM tomosynthesis screening BI IMPRESSION: No significant changes from prior exam. ASSESSMENT: BI-RADS 1: Negative RECOMMENDATION: Routine annual mammography screening. This patient's information was entered into a reminder system with a target due date for their next mammogram.
== END 2022-12-20 14:38 | disposition home or self-care (01) ==
LOC: HO.MAMMO 14:37
PROVIDERS: PCP Internal Medicine; Visit Provider Internal Medicine
DX: Z12.31 Encounter for screening mammogram for malignant neoplasm of breast (principal)
CPT/HCPCS: 77063; 77067

== ENCOUNTER → 2023-01-18 10:05 | Outpatient (BNVA) | payer OTHER, SELFPAY | PROVIDERS: PCP Internal Medicine; Visit Provider Internal Medicine Pulmonary Disease | DX: G47.33 Obstructive sleep apnea (adult) (pediatric) (principal); R94.2 Abnormal results of pulmonary function studies; R06.09 Other forms of dyspnea; E66.2 Morbid (severe) obesity with alveolar hypoventilation; Z68.42 Body mass index [BMI] 45.0-49.9, adult | CPT/HCPCS: 99212 ==

== ENCOUNTER 2023-02-08 11:07 | Emergency (ER) | payer OTHER, SELFPAY ==
--- NOTE | ~2023-02-08 | XR_ITS ---
EXAMINATION: lumbar spine and left hip. CLINICAL INDICATIONS: Pain. COMPARISON: None. TECHNIQUE: Lumbar spine 3 views. Left hip and pelvis 3 views. FINDINGS: LUMBAR SPINE: There is normal lumbar lordosis with mild dextroscoliosis. The vertebral heights, alignment and disc heights are normal. No visible acute fracture or dislocation. The soft tissues are normal. AP PELVIS AND LEFT HIP: There is normal symmetry of bilateral hip joints and SI joints. There is no visible fracture involving the pelvic bones. AP and frog-leg views left hip reveal no visible acute fracture or dislocation. No bony erosive changes. The soft tissues are normal. XR/XR hip LT min 2V IMPRESSION: 1. Mild dextroscoliosis lumbar spine. No visible acute fracture or dislocation. 2. Unremarkable AP pelvis and left hip exam. No visible acute fracture or dislocation seen.
--- NOTE | ~2023-02-08 | XR_ITS ---
EXAMINATION: lumbar spine and left hip. CLINICAL INDICATIONS: Pain. COMPARISON: None. TECHNIQUE: Lumbar spine 3 views. Left hip and pelvis 3 views. FINDINGS: LUMBAR SPINE: There is normal lumbar lordosis with mild dextroscoliosis. The vertebral heights, alignment and disc heights are normal. No visible acute fracture or dislocation. The soft tissues are normal. AP PELVIS AND LEFT HIP: There is normal symmetry of bilateral hip joints and SI joints. There is no visible fracture involving the pelvic bones. AP and frog-leg views left hip reveal no visible acute fracture or dislocation. No bony erosive changes. The soft tissues are normal. XR/XR lumbar spine 2-3V IMPRESSION: 1. Mild dextroscoliosis lumbar spine. No visible acute fracture or dislocation. 2. Unremarkable AP pelvis and left hip exam. No visible acute fracture or dislocation seen.
[2023-02-08 11:20] VITALS: BP 138/64; PULSE 78; RESP 16; TEMP 36; O2SAT 92; BMI 42.9
--- NOTE | 2023-02-08 11:21 | ED_ITS ---
HPI - General Adult General Chief complaint: General Medical Stated complaint: L leg pain/ L hand pain Time Seen by Provider: 02/08/23 12:57 History of Present Illness HPI narrative: Patient complains of left lower extremity pain as well as some left hip and left low back pain, pain radiates all the way down the leg Patient also complains of some mild left hand pain There is no muscle weakness no loss of sensation, denies any headache neck pain chest pain no abdominal pain no nausea vomiting or diarrhea no changes to bowel or bladder no dysuria no frequency no incontinence no fever no chills Related Data Home Medications Medication Instructions Recorded Confirmed carvedilol 12.5 mg tablet 1 tab PO BID 07/12/21 02/20/22 hydralazine 10 mg tablet 1 tab PO TID 07/12/21 02/20/22 isosorbide mononitrate 20 mg tablet 20 mg PO DAILY 07/12/21 02/20/22 losartan 100 mg tablet 1 tab PO QAM 07/12/21 02/20/22 lancets 33 gauge (TRUEplus Lancets) #100 ea 09/20/21 sitagliptin phos 50 mg-metformin 1 tab PO DAILY 02/20/22 02/20/22 ER 1,000 mg tablet,extend rel 24h mp (Janumet XR) famotidine 20 mg tablet 20 mg PO BEDTIME 11/15/22 pantoprazole 40 mg tablet,delayed 40 mg PO QAM 11/15/22 release spironolactone 25 mg tablet 25 mg PO QAM 11/15/22 Previous Rx's Medication Instructions Recorded acetaminophen 325 mg capsule 650 mg PO Q6H PRN pain #30 caps 02/08/23 oxycodone 5 mg tablet 5 mg PO Q6H PRN pain #10 tabs 02/08/23 cephalexin 500 mg capsule 500 mg PO Q6H 7 days #28 caps 02/12/23 Allergies Allergy/AdvReac Type Severity Reaction Status Date / Time No Known Allergies Allergy Verified 01/18/23 10:13 [No Known Allergies*] FORMERLY [facility] Past Medical History Source: nursing notes reviewed Medical History (Updated 02/09/23 @ 00:00 by Daija Turner) COPD (chronic obstructive pulmonary disease) Diabetes mellitus GERD (gastroesophageal reflux disease) Hypertension Obesity hypoventilation syndrome NICO (obstructive sleep apnea) Surgical History S/P laparoscopic cholecystectomy (07/14/21) Family History Family History Mother Diabetes Social History Social History Household Members: None Housing: Apartment Do you presently have visiting nurse or other home services: Yes Patient Tobacco Use Status: Former Tobacco user Tobacco use type: Cigarette Years Smoked: 20 Advance Directives: No Advance Directives Information Provided: Yes service: No Current occupational status: unemployed and disabled Physical Exam ED Vital Signs: Vital Signs - 24 hr 02/08/23 11:20 Temperature 96.8 F Pulse Rate 78 Respiratory Rate 16 Blood Pressure 138/64 Pulse Oximetry 92 Oxygen Delivery Method Room Air BMI result Body Mass Index 42.9 General appearance no acute distress Head is normocephalic atraumatic Neck is supple Respiratory no distress Chest clear to auscultation bilateral no pleuritic or chest wall pain Left lower extremity had no calf tenderness no calf swelling there was no pedal edema there was no posterior tenderness in thigh popliteal or calf Abdomen soft nontender The back had left lower lumbar and left gluteal tenderness, skin of the back was normal no focal bony tenderness There was no significant tenderness over the left hip , which had full range of motion Other extremities all had full range of motion, left hand had no significant tenderness or swelling had full range of motion Neuro gait and balance are normal, motor is 5/5 x4, sensation intact and symmetrical Course Course Course Narrative: This is a rapid medical exam. Deferred additional HPI, ROS, PE to primary provider. 77 year old female with past medical history of COPD, diabetes, hypertension, GERD, NICO here with complaints of atraumatic left knee pain which radiates up the abdomen/left chest wall to the left arm x 2 weeks. No other associated symptoms. On exam patient with bilateral LE swelling No fall or injury. Will obtain labs, UA, EKG. VSS 02/12/2023 0929: Patient's urine grew >100,000 cfu/ml of E. Coli. Antibiotics sent to the pharmacy. Patient called and informed. Patient had x-rays of hip and back both of which were without acute abnormality Exam is consistent with sciatica not with any left hip pathology, no evidence of DVT and patient is discharged with analgesics diagnosis sciatica, no neurologic deficit no change to bowel or bladder no fever Medical Decision Making Lab Data 02/08/23 11:39 02/08/23 11:39 Labs: Lab Results 02/08/23 02/08/23 02/08/23 Range/Units 11:39 11:39 11:39 WBC 5.3 (4.8-10.8) X10*3/uL RBC 4.06 L (4.20-5.50) X10*6/uL Hgb 12.1 (12.0-16.0) g/dl Hct 39.1 (37.0-47.0) % MCV 96.3 (80.0-98.0) fL MCH 29.8 (27.0-33.0) pg MCHC 30.9 L (31.0-35.0) g/dl RDW 13.1 (11.0-16.0) % Plt Count 158 L (160-400) X10*3/uL MPV 10.8 (9.4-12.3) fL Immature Gran % (Auto) 0.2 (0.0-0.4) % Neut % (Auto) 63.5 (45-73) % Lymph % (Auto) 25.3 (20-40) % Trigg % (Auto) 7.9 (2-11) % Eos % (Auto) 2.4 (0-4) % Baso % (Auto) 0.7 (0-2) % Lymph # (Auto) 1.4 (1.2-4.9) X10*3/uL Trigg # (Auto) 0.4 (0.1-1.2) X10*3/uL Eos # (Auto) 0.1 (0.0-0.4) X10*3/uL Baso # (Auto) 0.0 (0.0-0.2) X10*3/uL Abs Immat Gran (auto) 0.01 (0.00-0.03) X10*3/uL Absolute Neuts (auto) 3.4 (2.0-8.3) x10*3/uL Absolute Nucleated RBC 0.000 (0.0-0.012) X10*3/uL Nucleated RBC % (auto) 0.0 (0.0-0.2) /100WBC PT 11.5 (10.0-13.1) SEC INR 1.0 (0.9-1.1) Sodium 143 (135-145) mmol/L Potassium 4.5 (3.3-5.1) mmol/L Chloride 101 (96-108) mmol/L Carbon Dioxide 36 H (22-29) mmol/L Anion Gap 11 L (12-20) BUN 12 (9-16) mg/dL Creatinine 0.74 (0.5-1.4) mg/dL Estim Creat Clear Calc 76.9 Estimated GFR > 60 Random Glucose 148 H (60-115) mg/dL Calcium 9.1 (8.4-10.2) mg/dL Magnesium 1.6 (1.6-2.6) mg/dL Total Bilirubin 0.4 (0.0-1.0) mg/dL Direct Bilirubin 0.1 (0.0-0.5) mg/dL AST 14 (5-31) U/L ALT 10 (0-31) U/L Alkaline Phosphatase 49 (39-117) U/L Troponin I High Sens (<3.5-17.0) ng/L B-Natriuretic Peptide (<100) pg/mL Total Protein 7.6 (6.5-8.0) g/dL Albumin 4.1 (3.5-5.0) g/dL Lipase 10 (8-78) U/L Urine Color Urine Appearance Urine pH (5.0-9.0) Ur Specific [place] (1.005-1.025) Urine Protein (Neg-Trace) mg/dL Urine Glucose (UA) (Negative) mg/dL Urine Ketones (Negative) mg/dL Urine Blood (Negative) Urine Nitrite (Negative) Ur Leukocyte Esterase (Negative) Urine RBC (0-2) /HPF Urine WBC (0-5) /HPF Ur Squamous Epith Cells (0-2) /HPF Urine Bacteria (None Seen) Hyaline Casts (0-2) /LPF 02/08/23 02/08/23 02/08/23 Range/Units 11:39 11:39 11:43 WBC (4.8-10.8) X10*3/uL RBC (4.20-5.50) X10*6/uL Hgb (12.0-16.0) g/dl Hct (37.0-47.0) % MCV (80.0-98.0) fL MCH (27.0-33.0) pg MCHC (31.0-35.0) g/dl RDW (11.0-16.0) % Plt Count (160-400) X10*3/uL MPV (9.4-12.3) fL Immature Gran % (Auto) (0.0-0.4) % Neut % (Auto) (45-73) % Lymph % (Auto) (20-40) % Trigg % (Auto) (2-11) % Eos % (Auto) (0-4) % Baso % (Auto) (0-2) % Lymph # (Auto) (1.2-4.9) X10*3/uL Trigg # (Auto) (0.1-1.2) X10*3/uL Eos # (Auto) (0.0-0.4) X10*3/uL Baso # (Auto) (0.0-0.2) X10*3/uL Abs Immat Gran (auto) (0.00-0.03) X10*3/uL Absolute Neuts (auto) (2.0-8.3) x10*3/uL Absolute Nucleated RBC (0.0-0.012) X10*3/uL Nucleated RBC % (auto) (0.0-0.2) /100WBC PT (10.0-13.1) SEC INR (0.9-1.1) Sodium (135-145) mmol/L Potassium (3.3-5.1) mmol/L Chloride (96-108) mmol/L Carbon Dioxide (22-29) mmol/L Anion Gap (12-20) BUN (9-16) mg/dL Creatinine (0.5-1.4) mg/dL Estim Creat Clear Calc Estimated GFR Random Glucose (60-115) mg/dL Calcium (8.4-10.2) mg/dL Magnesium (1.6-2.6) mg/dL Total Bilirubin (0.0-1.0) mg/dL Direct Bilirubin (0.0-0.5) mg/dL AST (5-31) U/L ALT (0-31) U/L Alkaline Phosphatase (39-117) U/L Troponin I High Sens 6.2 (<3.5-17.0) ng/L B-Natriuretic Peptide 109 H (<100) pg/mL Total Protein (6.5-8.0) g/dL Albumin (3.5-5.0) g/dL Lipase (8-78) U/L Urine Color Yellow Urine Appearance Clear Urine pH 5.5 (5.0-9.0) Ur Specific [place] <= 1.005 (1.005-1.025) Urine Protein Negative (Neg-Trace) mg/dL Urine Glucose (UA) Negative (Negative) mg/dL Urine Ketones Negative (Negative) mg/dL Urine Blood Negative (Negative) Urine Nitrite Negative (Negative) Ur Leukocyte Esterase Moderate (2+) H (Negative) Urine RBC 0-2 (0-2) /HPF Urine WBC 11-20 H (0-5) /HPF Ur Squamous Epith Cells 0-2 (0-2) /HPF Urine Bacteria None Seen (None Seen) Hyaline Casts 3-5 (0-2) /LPF Discharge Plan Discharge Clinical Impression: Sciatica Patient Disposition: Home, Self-Care Additional Instructions: x-rays of the hip and the back did not show any dangerous condition Your pain is likely from a pinched nerve in her back sending pain down the leg Blood tests did not show any acute abnormalities, follow with her primary doctor Return to the ER any time any worse condition or any concerns Prescriptions: New oxycodone 5 mg tablet 5 mg PO Q6H PRN (Reason: pain) Qty: 10 0RF Rx Instructions: Partial Fill upon patient request. acetaminophen 325 mg capsule 650 mg PO Q6H PRN (Reason: pain) Qty: 30 0RF cephalexin 500 mg capsule 500 mg PO Q6H 7 Days Qty: 28 0RF No Action hydralazine 10 mg tablet 1 tab PO TID carvedilol 12.5 mg tablet 1 tab PO BID isosorbide mononitrate 20 mg tablet 20 mg PO DAILY losartan 100 mg tablet 1 tab PO QAM Janumet XR 50-1,000 mg tablet, ER multiphase 24 hr 1 tab PO DAILY (DME) lancets [TRUEplus Lancets] 33 gauge misc See Rx Instructions topical .MEDSUPPLY Qty: 100 Rx Instructions: As directed pantoprazole 40 mg tablet,delayed release (/EC) 40 mg PO QAM famotidine 20 mg tablet 20 mg PO BEDTIME spironolactone 25 mg tablet 25 mg PO QAM Interventions: ED Discharge Assessment Last Done: 02/08/23 17:12 Discharge Date/Time: 02/08/23 17:13
--- NOTE | 2023-02-08 11:23 | ECG_ITS ---
Test Reason : abdominal,arm,chest pains Blood Pressure : / mmHG Vent. Rate : 075 BPM Atrial Rate : 075 BPM P-R Int : 186 ms QRS Dur : 094 ms QT Int : 394 ms P-R-T Axes : 029 011 031 degrees QTc Int : 439 ms Normal sinus rhythm with sinus arrhythmia Normal ECG When compared with ECG of 12-JUL-2021 09:40, Non-specific change in ST segment in Lateral leads Nonspecific T wave abnormality no longer evident in Lateral leads Referred By: Liseth Phillips Electronically Signed By:KAMRAN DUEÑAS
[2023-02-08 12:01] LABS: MANUAL DIFF FLAG NO
[2023-02-08 12:03] LABS: Appearance Urine Clear; Color Urine Yellow; Glucose Urine UA Negative (Negative); Leukocyte Esterase Urine Moderate (2+) (Negative); Nitrite Urine Negative (Negative); PH 5.5 (5.0-9.0); Specific Gravity - Urine <= 1.005 (1.005-1.025); UMIC TRIGGER UACC YES; Urine Blood Negative (Negative); Urine Ketones Negative (Negative); Urine Protein Negative (Neg-Trace)
[2023-02-08 12:03] LABS: Basophils Percent Auto 0.7 % (0-2); Eosinophils Absolute Auto 0.1 X10*3/uL (0.0-0.4); Eosinophils Percent Auto 2.4 % (0-4); Hematocrit 39.1 % (37.0-47.0); Hemoglobin 12.1 g/dl (12.0-16.0); Imm Gran Abs Auto 0.01 X10*3/uL (0.00-0.03); Imm Gran Pct Auto 0.2 % (0.0-0.4); Lymphocytes Absolute Auto 1.4 X10*3/uL (1.2-4.9); Lymphocytes Percent Auto 25.3 % (20-40); Mean Corpuscular HGB Conc 30.9 g/dl (31.0-35.0); Mean Corpuscular Hemoglobin 29.8 pg (27.0-33.0); Mean Corpuscular Volume 96.3 fL (80.0-98.0); Mean Platelet Volume 10.8 fL (9.4-12.3); Monocytes Absolute Auto 0.4 X10*3/uL (0.1-1.2); Monocytes Percent Auto 7.9 % (2-11); Neutrophils Absolute Auto 3.4 x10*3/uL (2.0-8.3); Neutrophils Percent Auto 63.5 % (45-73); Platelet Count 158 X10*3/uL (160-400); Red Blood Count 4.06 X10*6/uL (4.20-5.50); Red Cell Distribution Width 13.1 % (11.0-16.0); White Blood Count 5.3 X10*3/uL (4.8-10.8)
[2023-02-08 12:06] LABS: Bacteria Urine None Seen (None Seen); RBC Urine 0-2 /HPF (0-2); Squamous Epithelial Cell Urine 0-2 /HPF (0-2); UACC Culture Trigger YES
[2023-02-08 12:11] LABS: Prothrombin Time 11.5 SEC (10.0-13.1)
[2023-02-08 12:18] LABS: Alanine Aminotransferase 10 U/L (0-31); Albumin Level 4.1 g/dL (3.5-5.0); Alkaline Phosphatase 49 U/L (39-117); Anion Gap 11 (12-20); Aspartate Amino Transferase 14 U/L (5-31); Bilirubin Direct 0.1 mg/dL (0.0-0.5); Bilirubin Total 0.4 mg/dL (0.0-1.0); Blood Urea Nitrogen 12 mg/dL (9-16); Calcium 9.1 mg/dL (8.4-10.2); Carbon Dioxide 36 mmol/L (22-29); Chloride 101 mmol/L (96-108); Creatinine Clr Calc Pharmacy 76.9; Estimated Glomerular Filt Rate > 60; Glucose Random 148 mg/dL (60-115); Lipase 10 U/L (8-78); Magnesium 1.6 mg/dL (1.6-2.6); Potassium 4.5 mmol/L (3.3-5.1); Sodium 143 mmol/L (135-145); Total Protein 7.6 g/dL (6.5-8.0)
[2023-02-08 12:22] LABS: B Type Natriuretic Peptide 109 pg/mL (<100)
[2023-02-08 12:24] LABS: Troponin-I High Sensitivity 6.2 ng/L (<3.5-17.0)
== END 2023-02-08 17:13 | disposition home or self-care (01) ==
PROVIDERS: Nurse Practitioner Family; Emergency Provider Emergency Medicine; PCP Internal Medicine
DX: M54.42 Lumbago with sciatica, left side (principal); R06.02 Shortness of breath; M79.642 Pain in left hand; M79.605 Pain in left leg; I49.8 Other specified cardiac arrhythmias; Z87.891 Personal history of nicotine dependence; Z79.899 Other long term (current) drug therapy
CPT/HCPCS: 36415; 72100; 73502; 80048; 80076; 81001; 81003; 83690; 83735; 83880; 84484; 85025; 85610; 87086; 87088; 87186; 93005; 99283

== ENCOUNTER → 2023-04-19 12:58 | Outpatient (BNVA) | payer OTHER, SELFPAY | PROVIDERS: PCP Internal Medicine; Visit Provider Orthopaedic Surgery ==

== ENCOUNTER 2023-05-11 11:37 | Outpatient (AMB) | payer OTHER, SELFPAY ==
--- NOTE | 2023-05-11 11:38 | A.OFFVIS_ITS ---
Intake Vital Signs 05/11/23 11:39 Height 5 ft 3 in Weight 252 lb 6.868 oz BMI 44.7 BP 147/78 H Blood Pressure Location Rt brachial Position Sitting Pulse 62 Pulse Source Doppler Pulse Oximetry (%) 91 L Oxygen Delivery Method Room Air Intake Visit Reasons: nico Allergies No Known Allergies [No Known Allergies*] Allergy (Verified 05/11/23 11:44) HPI nico HPI Details 78-year-old lady, former smoker, quit over 30 years prior, with underlying history morbid obesity, NICO/obesity hypoventilation syndrome diastolic dysfunction followed for severe NICO. After the last office visit patient has been started on APAP with improvement in her symptoms, however she has difficulties tolerating the mask secondary to leak, though she does use her machine every night. [facility] Medical History COPD (chronic obstructive pulmonary disease) Diabetes mellitus GERD (gastroesophageal reflux disease) Hypertension Obesity hypoventilation syndrome NICO (obstructive sleep apnea) Surgical History S/P laparoscopic cholecystectomy (07/14/21) Family History Mother Diabetes Social History Household Members: None Housing: Apartment Do you presently have visiting nurse or other home services: Yes Patient Tobacco Use Status: Former Tobacco user Tobacco use type: Cigarette Years Smoked: 20 service: No Current occupational status: unemployed and disabled Review of Systems Const Denies daytime sleepiness, Denies excessive sweating, Denies fatigue, Denies f ever(s), Denies lethargy, Denies malaise, Denies night sweats, Denies snoring and Denies weight loss Eyes Denies blurry vision and Denies itchy eyes ENT Denies nasal congestion, Denies post nasal drip, Denies sinus pain, Denies sinus pressure and Denies other ( Thrush) Card Denies chest pain, Denies pedal edema, Denies dyspnea, Denies orthopnea and Denies paroxysmal nocturnal dyspnea Resp Denies cough, Denies hemoptysis, Denies excessive phlegm production, Denies dyspnea, Denies snoring and Denies wheezing GI Denies abdominal pain and Denies heartburn Musc Denies myalgias, Denies arthralgias and Denies joint swelling Skin/Breast Denies rash Neuro Denies memory loss and Denies seizure-like activity Psych Denies abnormal sleep pattern, Denies anxiety and Denies memory loss Endo Denies excessive sweating, Denies fatigue and Denies heat intolerance Ralph/Lymph Denies easy bruising Aller/Immun Denies itchy eyes, Denies seasonal rhinorrhea and Denies wheezing Physical Exam Vital Signs: Last Vital Signs Pulse 62 05/11/23 11:39 BP 147/78 H 05/11/23 11:39 Pulse Ox 91 L 05/11/23 11:39 Oxygen Delivery Method Room Air 05/11/23 11:39 BMI result Body Mass Index 44.7 Const General: no acute distress and alert Nutritional Appearance: obese Orientation/consciousness: Other orientation findings ( oriented) HEENT Head: Yes atraumatic Eyes General: appearance normal, both eyes and all related structures Sclerae: sclerae normal EOM: EOMs intact bilaterally Neck Neck: Yes supple Lymphatic: no lymphadenopathy noted Resp Effort & Inspection: normal respiratory effort and no use of accessory muscles Auscultation: clear to auscultation bilaterally Cardio Rate: regular rate Rhythm: regular rhythm Heart sounds: no gallops, no murmurs and no rubs Skin General skin exam: other ( warm) Extrem General: No clubbing, No cyanosis and No edema Assessment & Plan Assessment & Plan (1) NICO (obstructive sleep apnea): Code(s): G47.33 - Obstructive sleep apnea (adult) (pediatric) (2) Obesity hypoventilation syndrome: Code(s): E66.2 - Morbid (severe) obesity with alveolar hypoventilation (3) Restrictive ventilatory defect: Code(s): R94.2 - Abnormal results of pulmonary function studies Plan Suboptimal control of her underlying symptoms on current CPAP therapy secondary to significant leak on her mask. Mask changed to a different type. Will reassess symptoms in 1 month. Coding Level of Care Code Est Pt Level 3 (01004) Diagnoses NICO (obstructive sleep apnea) G47.33 Obesity hypoventilation syndrome E66.2 Restrictive ventilatory defect R94.2
[2023-05-11 11:39] VITALS: BP 147/78; PULSE 62; O2SAT 91; BMI 44.7
== END 2023-05-11 11:54 | disposition home or self-care (01) ==
PROVIDERS: PCP Internal Medicine; Visit Provider Internal Medicine Pulmonary Disease
DX: E66.2 Morbid (severe) obesity with alveolar hypoventilation (principal); R94.2 Abnormal results of pulmonary function studies
CPT/HCPCS: 99213

== ENCOUNTER → 2023-05-11 11:37 | Outpatient (BNVA) | payer OTHER, SELFPAY | PROVIDERS: PCP Internal Medicine; Visit Provider Internal Medicine Pulmonary Disease | DX: G47.33 Obstructive sleep apnea (adult) (pediatric) (principal); E66.2 Morbid (severe) obesity with alveolar hypoventilation; R94.2 Abnormal results of pulmonary function studies | CPT/HCPCS: 99212 ==

== ENCOUNTER 2023-06-14 10:53 | Outpatient (AMB) | payer OTHER, SELFPAY ==
[2023-06-14 10:54] VITALS: BP 122/62; PULSE 68; O2SAT 93; BMI 44.7
--- NOTE | 2023-06-14 10:54 | A.OFFVIS_ITS ---
Intake Vital Signs 06/14/23 10:54 Height 5 ft 3 in Weight 252 lb 6.868 oz BMI 44.7 BP 122/62 Blood Pressure Location Rt brachial Position Sitting Pulse 68 Pulse Source Doppler Pulse Oximetry (%) 93 Oxygen Delivery Method Room Air Intake Visit Reasons: doreen Allergies No Known Allergies [No Known Allergies*] Allergy (Verified 06/14/23 10:59) HPI doreen HPI Details 78-year-old lady, former smoker, quit ov er 30 years prior, with underlying history morbid obesity, DOREEN/obesity hypoventilation syndrome diastolic dysfunction followed for severe DOREEN. She has received his CPAP machine and her sleep apnea symptoms are well controlled at this time. She denies any other pulmonary or sleep related complaints. [facility] Medical History COPD (chronic obstructive pulmonary disease) Diabetes mellitus GERD (gastroesophageal reflux disease) Hypertension Obesity hypoventilation syndrome DOREEN (obstructive sleep apnea) Surgical History S/P laparoscopic cholecystectomy (07/14/21) Family History Mother Diabetes Social History (Reviewed 06/14/23 @ 10:59 by Kaylynn Hilliard [facility], [facility]) Household Members: None Housing: Apartment Do you presently have visiting nurse or other home services: Yes Patient Tobacco Use Status: Former Tobacco user Tobacco use type: Cigarette Years Smoked: 20 service: No Current occupational status: unemployed and disabled Physical Exam Vital Signs: Last Vital Signs Pulse 68 06/14/23 10:54 BP 122/62 06/14/23 10:54 Pulse Ox 93 06/14/23 10:54 Oxygen Delivery Method Room Air 06/14/23 10:54 BMI result Body Mass Index 44.7 Assessment & Plan Assessment & Plan (1) DOREEN (obstructive sleep apnea): Code(s): G47.33 - Obstructive sleep apnea (adult) (pediatric) (2) Obesity hypoventilation syndrome: Code(s): E66.2 - Morbid (severe) obesity with alveolar hypoventilation (3) Restrictive ventilatory defect: Code(s): R94.2 - Abnormal results of pulmonary function studies Plan Significantly improved control on CPAP therapy. Continue current CPAP therapy. Coding Level of Care Code Est Pt Level 3 (74246) Diagnoses DOREEN (obstructive sleep apnea) G47.33 Obesity hypoventilation syndrome E66.2 Restrictive ventilatory defect R94.2
== END 2023-06-14 11:14 | disposition home or self-care (01) ==
PROVIDERS: PCP Internal Medicine; Visit Provider Internal Medicine Pulmonary Disease
DX: G47.33 Obstructive sleep apnea (adult) (pediatric) (principal); R94.2 Abnormal results of pulmonary function studies
CPT/HCPCS: 99213

== ENCOUNTER → 2023-06-14 10:53 | Outpatient (BNVA) | payer OTHER, SELFPAY | PROVIDERS: PCP Internal Medicine; Visit Provider Internal Medicine Pulmonary Disease | DX: G47.33 Obstructive sleep apnea (adult) (pediatric) (principal); E66.2 Morbid (severe) obesity with alveolar hypoventilation; R94.2 Abnormal results of pulmonary function studies; Z99.89 Dependence on other enabling machines and devices | CPT/HCPCS: 99212 ==

== ENCOUNTER 2023-06-19 11:27 | Outpatient (REF) | payer OTHER, SELFPAY | END 2023-06-19 11:28 | disposition home or self-care (01) | LOC: HO.XRAY 11:27 | PROVIDERS: PCP Internal Medicine; Visit Provider Internal Medicine | DX: M25.551 Pain in right hip (principal) | CPT/HCPCS: 73502 ==

== ENCOUNTER 2023-07-27 10:20 | Outpatient (AMB) | payer OTHER, SELFPAY ==
--- NOTE | 2023-07-27 10:35 | A.OFFVIS_ITS ---
Intake Vital Signs 07/27/23 10:42 Height 5 ft 3 in Weight 252 lb BMI 44.6 Intake Visit Reasons: New Pt - Right Hip Pain Intake Note: Magalie is a 78 year old female who presents today for anew problem visit with complaints of right hip pain. She has had pain in the left buttck and groin for the last two months Allergies No Known Allergies [No Known Allergies*] Allergy (Verified 07/27/23 10:36) HPI New Pt - Right Hip Pain HPI Details Magalie is a 78 year old Diabetic woman who presents with complaints of right hip pain. Persian patient. She complains of pain with daily activity, localized to the lateral aspect of her hip. She denies any prior treatment. She walks with a walker and currently takes Oxycodone. [facility] Medical History (Updated 07/27/23 @ 10:52 by Tomasz Bond) Obesity hypoventilation syndrome NICO (obstructive sleep apnea) GERD (gastroesophageal reflux disease) Hypertension Diabetes mellitus COPD (chronic obstructive pulmonary disease) Surgical History S/P laparoscopic cholecystectomy (07/14/21) Family History Mother Diabetes Social History Household Members: None Housing: Apartment Do you presently have visiting nurse or other home services: Yes Patient Tobacco Use Status: Former Tobacco user Tobacco use type: Cigarette Years Smoked: 20 service: No Current occupational status: unemployed and disabled Review of Systems Const All systems reviewed & are unremarkable except as noted in HPI and below Physical Exam Vital Signs: BMI result Body Mass Index 44.6 Const General: no acute distress, alert and awake Orientation/consciousness: patient oriented x3 HEENT Head: Yes normocephalic and Yes atraumatic Eyes EOM: EOMs intact bilaterally Resp Effort & Inspection: normal respiratory effort and able to speak in complete sentences Cardio Jugular venous distension: no JVD Skin General skin exam: turgor normal Rashes: no rashes Neuro General: patient oriented x3 Extrem Other: Right Hip: no groin pain with ROM TTP greater trochanteric bursa, right hip Psych Appearance: grossly normal Affect: normal affect Attitude: cooperative Office Procedures Joint Injection/Drain Joint Injection/Drain Details: Injected 1 mL of Decadron and 3 mL 1% lidocaine and 3 mL of 0.25% Marcaine. Site was prepped using aseptic technique. Patient tolerated the procedure well. Primary Site: other (greater trochanteric bursa, right hip) Approach Used: posterolateral Coding - Large joint Procedure code (CPT) selection complete Results Reviewed Results Reviewed: 07/27/23 10:51 BUPivacaine MPF 0.25 % [Sensorcaine-MPF 0.25% 10 ML] 10 ml .ROUTE .STK-MED ONE Lidocaine HCl 2 % MPF [Xylocaine 2 % MPF] 5 ml .ROUTE .STK-MED ONE dexAMETHasone sod phosphate [Decadron] 4 mg .ROUTE .STK-MED ONE I personally reviewed relevant radiographs Mild right hip osteoarthritis. Assessment & Plan Assessment & Plan (1) Bursitis of right hip: Code(s): M70.71 - Other bursitis of hip, right hip Plan: This is a 78 year old woman with right hip bursitis. She has pain with daily activity, localized to the lateral aspect of her hip. She ambulates with an assistive walker. She denies any prior treatment. I discussed her diagnosis and treatment options. I injected her right hip bursa today, which she tolerated well. She declined any PT today. She will follow up prn. (2) Osteoarthritis of right hip: Code(s): M16.11 - Unilateral primary osteoarthritis, right hip Plan: Radiographically mild. (3) Diabetes mellitus: Code(s): E11.9 - Type 2 diabetes mellitus without complications Plan: I discussed the hyperglycemic effects of steroid injections. Plan Scribed for Rico Juarez MD by Tomasz Bond, medical equipment repairer, on 07/27/23 at 10:55 AM, EST. Coding Level of Care Code Est Pt Level 3 (89819) Diagnoses Bursitis of right hip M70.71 Osteoarthritis of right hip M16.11 Diabetes mellitus E11.9 CPT Codes Coding - Large joint: 02779 - Large joint ([id number])
[2023-07-27 10:42] VITALS: BMI 44.6
== END 2023-07-27 11:25 | disposition home or self-care (01) ==
PROVIDERS: PCP Internal Medicine; Visit Provider Orthopaedic Surgery
DX: M70.71 Other bursitis of hip, right hip (principal); M16.11 Unilateral primary osteoarthritis, right hip; E11.9 Type 2 diabetes mellitus without complications
CPT/HCPCS: 20610; 99213

== ENCOUNTER → 2023-07-27 10:20 | Outpatient (BNVA) | payer OTHER, SELFPAY | PROVIDERS: PCP Internal Medicine; Visit Provider Orthopaedic Surgery | DX: M70.71 Other bursitis of hip, right hip (principal); M16.11 Unilateral primary osteoarthritis, right hip; E11.9 Type 2 diabetes mellitus without complications | CPT/HCPCS: 20610; 99212; J0665; J1100 ==

== ENCOUNTER 2023-11-01 22:27 | Inpatient (IN) | payer OTHER, SELFPAY ==
--- NOTE | ~2023-11-01 | CT_ITS ---
EXAMINATION: CT ABDOMEN AND PELVIS WITH CONTRAST CLINICAL INFORMATION: Pain. COMPARISON: 02/19/2022 TECHNIQUE: Multidetector volumetric images were obtained from the superior aspect of the liver through the pubic symphysis following administration 100 mL of Omnipaque 350 intravenous contrast. Sagittal and coronal reformatted images were obtained on the technologist's workstation. Oral contrast: No This CT examination was performed using dose optimization techniques as appropriate, variously including the following: *Automated exposure control *Adjustment of mA and/or kV according to patient size (this includes techniques or standardized protocols for targeted exams where dose is matched to indication/reason for exam; i.e. extremities or head) *Use of iterative reconstruction technique DLP: 978 mGy-cm FINDINGS: LUNG BASES: There is pulmonary vascular congestion with interstitial prominence and faint lung opacities. LIVER, GALLBLADDER, AND BILIARY TREE: The liver is irregular in contour. No focal liver lesions are seen. There is no intrahepatic biliary duct dilatation. The gallbladder is unremarkable with no evidence of radiopaque gallstones, gallbladder wall thickening, or obvious pericholecystic inflammatory changes. PANCREAS: Unremarkable. SPLEEN: Unremarkable. ADRENAL GLANDS: Unremarkable. KIDNEYS AND URETERS: The kidneys are normal in size, shape, and attenuation. No hydronephrosis, hydroureter, or calculi seen. No perinephric stranding. BLADDER: Unremarkable. GASTROINTESTINAL TRACT: There are diverticula of the descending transverse and descending colon without diverticulitis. The appendix is visualized and is within normal limits. ABDOMINAL WALL: There is a minimal umbilical hernia containing fat. LYMPH NODES: Normal. VASCULAR: Unremarkable. PELVIC VISCERA: There is a 2.4 cm uterine body fibroid. OSSEOUS STRUCTURES: Unremarkable. CT/CT abdomen pelvis w IV con IMPRESSION: Diverticulosis without evidence of diverticulitis. Irregular contour of the liver suggestive of cirrhosis. Uterine fibroid. There is suggestion of lower lung field interstitial edema. Fleischner guidelines were followed.
--- NOTE | ~2023-11-01 | XR_ITS ---
EXAMINATION: XR CHEST CLINICAL INFORMATION: Dyspnea. COMPARISON: 07/14/2021. TECHNIQUE: Frontal view of the chest was obtained. FINDINGS: The lung volumes are low. The cardiomediastinal silhouette is stable. There is apparent vascular congestion and mild diffuse increased markings. There is no focal lung consolidation or pleural effusion. The bony structures and soft tissues are unremarkable. XR/XR chest 1V IMPRESSION: Apparent vascular congestion and mild diffuse increased markings likely secondary to low lung volumes. Mild congestion/interstitial edema also considered.
--- NOTE | ~2023-11-01 | CT_ITS ---
EXAMINATION: CT CHEST WITHOUT CONTRAST CLINICAL INFORMATION: Respiratory failure. COMPARISON: CT chest 12/18/2022. TECHNIQUE: Multidetector volumetric CT imaging of the chest was done. Axial MIP volume rendering provided. Sagittal and coronal reformatted images were obtained. This CT examination was performed using dose optimization techniques as appropriate, variously including the following: *Automated exposure control *Adjustment of mA and/or kV according to patient size (this includes techniques or standardized protocols for targeted exams where dose is matched to indication/reason for exam; i.e. extremities or head) *Use of iterative reconstruction technique DLP: 585 mGy-cm FINDINGS: LUNGS: Multifocal groundglass opacities that are more denser and extensive in the right upper lobe (5:57). The trachea and mainstem bronchi are patent. A solid 1 x 0.9 cm right middle lobe nodule (4:215) is unchanged dating back to 08/13/2013. Evaluation of new nodules is very limited due to motion and overlying airspace opacities. MEDIASTINUM: Cardiomegaly. No pericardial effusion. Increased size of a few mediastinal lymph nodes, for reference a rounded 0.8 cm lymph node in the prevascular region (2:19). Enlarged pulmonary arteries consistent wit pulmonary h hypertension. Normal caliber of the thoracic aorta. Limited evaluation of the hilar structures secondary to motion and lack of IV contrast. CORONARY ARTERY CALCIFICATION: Multivessel coronary artery calcifications. PLEURA: No pleural effusion or pneumothorax. AXILLA: No axillary lymphadenopathy. UPPER ABDOMEN: Cholecystectomy. Contrast material in the renal calyces from prior IV administration at the time of CT abdomen performed earlier today. OSSEOUS STRUCTURES: No acute or aggressive appearing osseous findings. Thoracic spondylosis. CT/CT chest wo IV con IMPRESSION: 1. Multifocal groundglass opacities that are more denser and extensive in the right upper lobe are suspicious for a combination of pulmonary edema and atypical infectious/inflammatory process. Recommend reevaluation with short-term follow-up CT chest in 3 months. 2. A 1 cm right middle lobe nodule is unchanged dating back to 08/13/2013 which is reassuring for benign/indolent process, for which no additional imaging follow-up is recommended. 3. Increased size of a few mediastinal lymph nodes, likely reactive. Attention on follow-up at the moment of reimaging in 3 months is recommended. 4. Cardiomegaly and findings consistent with pulmonary hypertension. Multivessel coronary calcifications.
[2023-11-01 23:10] VITALS: BP 210/121; PULSE 72; RESP 20; TEMP 36.8; O2SAT 82; BMI 45.2
[2023-11-01 23:16] VITALS: O2SAT 95
--- NOTE | 2023-11-01 23:23 | ECG_ITS ---
Test Reason : DYSPHEA Blood Pressure : / mmHG Vent. Rate : 064 BPM Atrial Rate : 064 BPM P-R Int : 178 ms QRS Dur : 090 ms QT Int : 402 ms P-R-T Axes : 041 022 024 degrees QTc Int : 414 ms Normal sinus rhythm Normal ECG When compared with ECG of 08-FEB-2023 11:28, No significant change was found Referred By: Cristiana Gaviria Electronically Signed By:Jake Veliz
[2023-11-01 23:37] VITALS: BP 172/88; PULSE 68; RESP 17; TEMP 36.6; O2SAT 100
--- NOTE | 2023-11-01 23:39 | ED.ABDPAIN ---
HPI - Abdominal Pain General Chief Complaint: Dyspnea Stated Complaint: cant breathe, stomachache Time Seen by Provider: 11/01/23 23:16 Source: patient, old records reviewed and hospice nurse practitioner Mode of arrival: ambulatory Limitations: no limitations History of Present Illness HPI narrative: 78 yo female with PMH of DM, cholecystectomy, NICO, obesity hypoventilation syndrome, nighttime CPAP use, HTN, edema, she comes to the ED with c/o daily abdominal pain after eating then with associated dyspnea, n/v/d states she cannot eat because of this. It has been going on for 1 month. She initially had low O2 sats on arrival but I suspect this was due to her nail pitcair[place] islander. She states symptoms are only triggered by eating. MD elicited complaint: abdominal pain Pertinent past history: other (gallbladder removal) Onset (ago): month(s) (1) Pain Consistency: intermittent Location: epigastric Severity: moderate Quality: aching and fullness Radiation: none Migration to: no migration Exacerbating factors: eating Relieving factors: nothing Associated symptoms: nausea, vomiting, diarrhea, chills and other (dyspnea) Related Data Home Medications Medication Instructions Recorded Confirmed carvedilol 12.5 mg tablet 1 tab PO BID 07/12/21 02/20/22 hydralazine 10 mg tablet 1 tab PO TID 07/12/21 02/20/22 isosorbide mononitrate 20 mg tablet 20 mg PO DAILY 07/12/21 02/20/22 losartan 100 mg tablet 1 tab PO QAM 07/12/21 02/20/22 lancets 33 gauge (TRUEplus Lancets) #100 ea 09/20/21 sitagliptin phos 50 mg-metformin 1 tab PO DAILY 02/20/22 02/20/22 ER 1,000 mg tablet,extend rel 24h mp (Janumet XR) famotidine 20 mg tablet 20 mg PO BEDTIME 11/15/22 pantoprazole 40 mg tablet,delayed 40 mg PO QAM 11/15/22 release spironolactone 25 mg tablet 25 mg PO QAM 11/15/22 furosemide 40 mg tablet 40 mg PO QAM 05/11/23 Previous Rx's Medication Instructions Recorded acetaminophen 325 mg capsule 650 mg (2 x 325 mg) PO Q6H PRN 02/08/23 pain #30 caps oxycodone 5 mg tablet 5 mg PO Q6H PRN pain #10 tabs 02/08/23 cephalexin 500 mg capsule 500 mg PO Q6H 7 days #28 caps 02/12/23 Allergies Allergy/AdvReac Type Severity Reaction Status Date / Time No Known Allergies Allergy Verified 11/01/23 23:08 [No Known Allergies*] Review of Systems Review of Systems Constitutional : No Weight loss, No Fever, pos Chills ENT/Mouth : No sore throat, No Rhinorrhea Eyes: No Swelling, No Redness Cardiovascular : No Chest Pain, pos SOB, No Edema Respiratory : No Cough, No Sputum, No Wheezing Gastrointestinal : Positive Nausea, Positive Vomiting, positive Diarrhea, positive abdominal Pain, No Hematochezia, No Melena Genitourinary : No Dysuria, No Urinary Frequency, No Hematuria, No Urgency Musculoskeletal : No joint pain, No Myalgias, No Joint Swelling Skin : No Skin Lesions, No rash Neuro : No Weakness, No Numbness, No Dizziness, No Headache Psych : No Anxiety/Panic, No Depression All other systems reviewed and are negative. [facility] Past Medical History Attestation statement: The following information was validated with the patient. Source: old records reviewed Medical History Obesity hypoventilation syndrome NICO (obstructive sleep apnea) GERD (gastroesophageal reflux disease) Hypertension Diabetes mellitus COPD (chronic obstructive pulmonary disease) Surgical History S/P laparoscopic cholecystectomy (07/14/21) Family History Family History Mother Diabetes Social History Social History Household Members: None Housing: Apartment Do you presently have visiting nurse or other home services: Yes Patient Tobacco Use Status: Former Tobacco user Tobacco use type: Cigarette Years Smoked: 20 Advance Directives: No Advance Directives Information Provided: No service: No Current occupational status: unemployed and disabled Physical Exam ED Vital Signs: Vital Signs - 24 hr 11/01/23 23:10 11/01/23 23:16 11/01/23 23:37 Temperature 98.2 F 97.9 F Pulse Rate 72 68 Respiratory Rate 20 17 Blood Pressure 210/121 H 172/88 H Pulse Oximetry 82 L 95 100 Oxygen Delivery Method Room Air Nasal Cannula Nasal Cannula Oxygen Flow Rate 2 2 BMI result Body Mass Index 45.2 Appearance: Alert. Oriented X3. No acute distress. Eyes: Pupils equal, round and reactive to light. ENT: Pharynx normal. Neck: Normal inspection. Neck supple. CVS: Normal heart rate and rhythm. Pulses normal. Respiratory: No respiratory distress. Breath sounds slightly diminished Abdomen: Soft and obese moderate ttp in epigastric area no rebound Skin: Skin warm and dry. Normal skin color. Normal skin turgor. Extremities: 1+ bilateral pitting lower extremity edema. No calf ttp Neuro: Oriented X 3. No motor deficit. No sensory deficit. Medical Decision Making Medical Decision Making [facility] Narrative: 78 yo female with PMH of DM, cholecystectomy, NICO, obesity hypoventilation syndrome, nighttime CPAP use, HTN, edema here with one month of intermittent abdominal pain after eating and n/v/d chills - feels short of breath as well when she is eating. Denies any other precipitating events other than when she eats. At this time will need labs, EKG, CT Scan for mass, pancreatitis, duodenitis, retained stone. BP trending down and O2 up with 2L NC though I suspect her nail [place] islander caused innacurate reading. Differential Diagnosis Differential Diagnoses: The differential diagnosis associated with the presentation includes PUD, pancreatitis, mass, duodenitis, gastritis, GERD Admission/Observation Consideration of admission/observation: Escalation of care including admission/observation considered needs O2 - desaturates IV lasix ordered given BNP and CXR will admit Consult Healthcare Provider Management of the patient was discussed with: Hospitalist (will admit) Lab Data [facility] Lab Attestation statement: I reviewed the patient's lab results. 11/01/23 23:44 11/01/23 23:44 Labs: Lab Results 11/01/23 11/01/23 Range/Units 23:44 23:49 WBC 7.3 (4.8-10.8) X10*3/uL RBC 3.88 L (4.20-5.50) X10*6/uL Hgb 11.5 L (12.0-16.0) g/dl Hct 37.7 (37.0-47.0) % MCV 97.2 (80.0-98.0) fL MCH 29.6 (27.0-33.0) pg MCHC 30.5 L (31.0-35.0) g/dl RDW 13.1 (11.0-16.0) % Plt Count 176 (160-400) X10*3/uL MPV 10.5 (9.4-12.3) fL Immature Gran % (Auto) 0.3 (0.0-0.4) % Neut % (Auto) 66.8 (45-73) % Lymph % (Auto) 20.5 (20-40) % [place] % (Auto) 9.5 (2-11) % Eos % (Auto) 2.5 (0-4) % Baso % (Auto) 0.4 (0-2) % Lymph # (Auto) 1.5 (1.2-4.9) X10*3/uL [place] # (Auto) 0.7 (0.1-1.2) X10*3/uL Eos # (Auto) 0.2 (0.0-0.4) X10*3/uL Baso # (Auto) 0.0 (0.0-0.2) X10*3/uL Abs Immat Gran (auto) 0.02 (0.00-0.03) X10*3/uL Absolute Neuts (auto) 4.9 (2.0-8.3) x10*3/uL Absolute Nucleated RBC 0.000 (0.0-0.012) X10*3/uL Nucleated RBC % (auto) 0.0 (0.0-0.2) /100WBC PT 12.4 (11.1-13.3) SEC INR 1.0 (0.9-1.1) VBG pH 7.38 (7.32-7.43) VBG pCO2 73 mmHg VBG pO2 57 mmHg VBG HCO3 44 H (22-26) mmol/L VBG O2 Saturation 83.0 % VBG Base Excess 15.7 mmol/L Sodium 140 (135-145) mmol/L Potassium 4.2 (3.3-5.1) mmol/L Chloride 94 L (96-108) mmol/L Carbon Dioxide 39 H (22-29) mmol/L Anion Gap 11 L (12-20) BUN 15 (9-16) mg/dL Creatinine 0.82 (0.5-1.4) mg/dL Estim Creat Clear Calc 70.5 Estimated GFR > 60 Random Glucose 238 H (60-115) mg/dL Lactic Acid 0.8 (0.5-2.0) mmol/L Calcium 9.0 (8.4-10.2) mg/dL Magnesium 1.9 (1.6-2.6) mg/dL Total Bilirubin 0.3 (0.0-1.0) mg/dL Direct Bilirubin 0.1 (0.0-0.5) mg/dL AST 20 (5-31) U/L ALT 19 (0-31) U/L Alkaline Phosphatase 66 (39-117) U/L Troponin I High Sens 9.8 D (<3.5-17.0) ng/L B-Natriuretic Peptide 498 H (<100) pg/mL Total Protein 7.8 (6.5-8.0) g/dL Albumin 4.0 (3.5-5.0) g/dL Procalcitonin 0.02 ng/mL COVID-19 ([place]) Negative (Negative) COVID-19 Clin Com See Note Influenza Type A (MEG) Negative (Negative) Influenza Type B (MEG) Negative (Negative) Influenza A & B Note See Note Independent Interpretation I performed an independent interpretation of an: EKG, Plain X-Ray (CHF) and CT Scan (no acute abdominal findings) Interpretation: Rate: 64 Rhythm: NSR [place]: normal Normal P waves. Normal LUIS FERNANDO. Normal QRS complex. ST T wave : no JOIE, inverted t waves V1-V2 qTC: 414 prior studies: no acute ischemia The study has been interpreted contemporaneously by me. . Radiology Impression Discussion of test interpretation with radiology: I have reviewed the radiologist's reading. Independent Historian Clinical information obtained from an independent historian. History obtained from or confirmed by: Spouse External Record Review External record reviewed: Inpatient record Medications Administered Discontinued Medications Generic Name Dose Route Start Last Admin Trade Name Freq PRN Reason Stop Dose Admin Iohexol 100 ml 11/02/23 01:02 11/02/23 01:02 Iohexol 350 Mg/Ml 100 Ml Infus..Btl IV 11/02/23 01:03 100 ml ONCE ONE Administration Discharge Plan Discharge Clinical Impression: Hypoxia Abdominal pain Qualifiers: Abdominal location: epigastric Qualified Code(s): R10.13 - Epigastric pain CHF (congestive heart failure) Qualifiers: Heart failure type: unspecified Heart failure chronicity: acute Qualified Code(s): I50.9 - Heart failure, unspecified Patient Disposition: Admitted As Inpatient Prescriptions: No Action hydralazine 10 mg tablet 1 tab PO TID carvedilol 12.5 mg tablet 1 tab PO BID isosorbide mononitrate 20 mg tablet 20 mg PO DAILY losartan 100 mg tablet 1 tab PO QAM Janumet XR 50-1,000 mg tablet, ER multiphase 24 hr 1 tab PO DAILY oxycodone 5 mg tablet 5 mg PO Q6H PRN (Reason: pain) Qty: 10 0RF Rx Instructions: Partial Fill upon patient request. acetaminophen 325 mg capsule 650 mg PO Q6H PRN (Reason: pain) Qty: 30 0RF cephalexin 500 mg capsule 500 mg PO Q6H 7 Days Qty: 28 0RF (DME) lancets [TRUEplus Lancets] 33 gauge misc See Rx Instructions topical .MEDSUPPLY Qty: 100 Rx Instructions: As directed pantoprazole 40 mg tablet,delayed release (DR/EC) 40 mg PO QAM famotidine 20 mg tablet 20 mg PO BEDTIME spironolactone 25 mg tablet 25 mg PO QAM furosemide 40 mg tablet 40 mg PO QAM
[2023-11-01 23:51] LABS: MANUAL DIFF FLAG NO
[2023-11-01 23:52] LABS: Basophils Percent Auto 0.4 % (0-2); Eosinophils Absolute Auto 0.2 X10*3/uL (0.0-0.4); Eosinophils Percent Auto 2.5 % (0-4); Hematocrit 37.7 % (37.0-47.0); Hemoglobin 11.5 g/dl (12.0-16.0); Imm Gran Abs Auto 0.02 X10*3/uL (0.00-0.03); Imm Gran Pct Auto 0.3 % (0.0-0.4); Lymphocytes Absolute Auto 1.5 X10*3/uL (1.2-4.9); Lymphocytes Percent Auto 20.5 % (20-40); Mean Corpuscular HGB Conc 30.5 g/dl (31.0-35.0); Mean Corpuscular Hemoglobin 29.6 pg (27.0-33.0); Mean Corpuscular Volume 97.2 fL (80.0-98.0); Mean Platelet Volume 10.5 fL (9.4-12.3); Monocytes Absolute Auto 0.7 X10*3/uL (0.1-1.2); Monocytes Percent Auto 9.5 % (2-11); Neutrophils Absolute Auto 4.9 x10*3/uL (2.0-8.3); Neutrophils Percent Auto 66.8 % (45-73); Platelet Count 176 X10*3/uL (160-400); Red Blood Count 3.88 X10*6/uL (4.20-5.50); Red Cell Distribution Width 13.1 % (11.0-16.0); White Blood Count 7.3 X10*3/uL (4.8-10.8)
[2023-11-01 23:56] LABS: VBG Base Excess 15.7 mmol/L; VBG HCO3 44 mmol/L (22-26); VBG pCO2 73 mmHg; VBG pH 7.38 (7.32-7.43); VBG pO2 57 mmHg
[2023-11-01 23:57] LABS: Prothrombin Time 12.4 SEC (11.1-13.3)
[2023-11-01 23:59] LABS: Venous Blood Gas Refer to POC result
[2023-11-02] VITALS (16 sets, daily range): BP systolic 106–142; BP diastolic 31–72; PULSE 57–80; RESP 11–26; TEMP 36.2–36.7; O2SAT 92–99; BMI 45.3; BMI 46.0
[2023-11-02 00:02] LABS: Lactic Acid 0.8 mmol/L (0.5-2.0)
[2023-11-02 00:11] LABS: COVID-19 Test Negative (Negative); IDNOW Serial# 08D9AD1C
[2023-11-02 00:12] LABS: IDNOW Serial# 152EDE1D; Influenza A Negative (Negative); Influenza B2 Negative (Negative); Troponin-I High Sensitivity 9.8 ng/L (<3.5-17.0)
[2023-11-02 00:13] LABS: B Type Natriuretic Peptide 498 pg/mL (<100)
[2023-11-02 00:20] LABS: Alanine Aminotransferase 19 U/L (0-31); Alkaline Phosphatase 66 U/L (39-117); Anion Gap 11 (12-20); Aspartate Amino Transferase 20 U/L (5-31); Bilirubin Direct 0.1 mg/dL (0.0-0.5); Bilirubin Total 0.3 mg/dL (0.0-1.0); Blood Urea Nitrogen 15 mg/dL (9-16); Carbon Dioxide 39 mmol/L (22-29); Chloride 94 mmol/L (96-108); Creatinine Clr Calc Pharmacy 70.5; Estimated Glomerular Filt Rate > 60; Glucose Random 238 mg/dL (60-115); Magnesium 1.9 mg/dL (1.6-2.6); Potassium 4.2 mmol/L (3.3-5.1); Sodium 140 mmol/L (135-145); Total Protein 7.8 g/dL (6.5-8.0)
[2023-11-02 00:32] LABS: Procalcitonin 0.02 ng/mL
[2023-11-02] MEDS: iohexoL 350 MG/ML 100 ML INFUS..BTL IV (01:02)
--- NOTE | 2023-11-02 03:20 | PC.NURSE ---
O2 removed from patient to obtain a room air sat. desat to 80% at rest on room air. placed on O2 2LPM via NC and increased to 86%. increased to O2 4LPM via NC and now 96%.
--- NOTE | 2023-11-02 03:24 | PM.IMHP ---
History of Present Illness Date of Service: 11/02/23 Chief Complaint: Dyspnea and abdominal pain This is a 78-year-old female with pertinent history of hhe-[id number] diabetes mellitus, COPD not on home oxygen, NICO on CPAP, gastroesophageal reflux disease, cirrhosis of the liver who presents to the emergency department for evaluation of dyspnea and abdominal discomfort. Patient states her symptoms have been ongoing for the last 1 month. The symptoms have been progressive and the dyspnea has worsened. She uses CPAP at bedtime. Does not use supplemental oxygen during day. Also admits orthopnea and lower extremity leg swelling. Patient states her abdominal discomfort worsened in the last couple of days and had an episode of diarrhea. No fever, chills, chest discomfort, palpitations, changes in urinary habits. In the emergency department, imaging with pulmonary edema and BNP found to be elevated. Patient was placed on supplemental oxygen and initiated on IV diuresis Review of Systems Constitutional: Constitutional: Reports fatigue and Reports lethargy Cardiovascular: Cardiovascular: Reports dyspnea on exertion and Reports orthopnea Respiratory: Respiratory: Reports dyspnea on exertion Gastrointestinal: Gastrointestinal: Reports abdominal pain and Reports loose stools Genitourinary: Genitourinary: Reports no additional female genitourinary complaints Endocrine: Endocrine: Reports fatigue [facility] Medical History Obesity hypoventilation syndrome NICO (obstructive sleep apnea) GERD (gastroesophageal reflux disease) Hypertension Diabetes mellitus COPD (chronic obstructive pulmonary disease) Family History Mother Diabetes Surgical History S/P laparoscopic cholecystectomy (07/14/21) Social History Household Members: None Housing: Apartment Do you presently have visiting nurse or other home services: Yes Patient Tobacco Use Status: Former Tobacco user Tobacco use type: Cigarette Years Smoked: 20 Advance Directives: No Advance Directives Information Provided: No Nutrition Risks: No Nutritional Risk service: No Current occupational status: unemployed and disabled Meds Allergies Allergy/AdvReac Type Severity Reaction Status Date / Time No Known Allergies Allergy Verified 11/01/23 23:08 [No Known Allergies*] Home Medications Medication Instructions Recorded Confirmed Last Taken Type carvedilol 12.5 mg tablet 1 tab PO BID 07/12/21 02/20/22 02/19/22 History hydralazine 10 mg tablet 1 tab PO TID 07/12/21 02/20/22 02/19/22 History isosorbide mononitrate 20 mg tablet 20 mg PO DAILY 07/12/21 02/20/22 02/19/22 History losartan 100 mg tablet 1 tab PO QAM 07/12/21 02/20/22 02/19/22 History lancets 33 gauge (TRUEplus Lancets) #100 ea 09/20/21 02/19/22 History sitagliptin phos 50 mg-metformin 1 tab PO DAILY 02/20/22 02/20/22 02/19/22 History ER 1,000 mg tablet,extend rel 24h mp (Janumet XR) famotidine 20 mg tablet 20 mg PO BEDTIME 11/15/22 Unknown History pantoprazole 40 mg tablet,delayed 40 mg PO QAM 11/15/22 Unknown History release spironolactone 25 mg tablet 25 mg PO QAM 11/15/22 Unknown History furosemide 40 mg tablet 40 mg PO QAM 05/11/23 Unknown History Physical Exam Vital Signs and Narrative: Vital Signs: Last Vital Signs Temp 97.9 F 11/01/23 23:37 Pulse 68 11/01/23 23:37 Resp 17 11/01/23 23:37 BP 172/88 H 11/01/23 23:37 Pulse Ox 100 11/01/23 23:37 O2 Del Method Nasal Cannula 11/01/23 23:37 O2 Flow Rate 2 11/01/23 23:37 BMI result Body Mass Index 45.2 Middle-aged female lying in bed in mild distress on supplemental oxygen Neck supple, + JVD Regular rate and rhythm, S1-S2 heard Regular breath sounds bilaterally, no wheezing or crackles appreciated Abdomen soft nontender, no guarding, no rigidity Patient is awake, alert and oriented to self, place, time and person ; no focal motor deficit Psych: Normal mood Bilateral lower extremity pedal edema Results Labs 11/01/23 23:44 11/01/23 23:44 Labs: Laboratory Results - last 24 hr 11/01/23 11/01/23 23:44 23:49 MCV 97.2 MCH 29.6 MCHC 30.5 L RDW 13.1 Plt Count 176 MPV 10.5 Immature Gran % (Auto) 0.3 Neut % (Auto) 66.8 Lymph % (Auto) 20.5 [place] % (Auto) 9.5 Eos % (Auto) 2.5 Baso % (Auto) 0.4 Lymph # (Auto) 1.5 [place] # (Auto) 0.7 Eos # (Auto) 0.2 Baso # (Auto) 0.0 Abs Immat Gran (auto) 0.02 Absolute Neuts (auto) 4.9 Absolute Nucleated RBC 0.000 Nucleated RBC % (auto) 0.0 PT 12.4 INR 1.0 VBG pH 7.38 VBG pCO2 73 VBG pO2 57 VBG HCO3 44 H VBG O2 Saturation 83.0 VBG Base Excess 15.7 Anion Gap 11 L Estim Creat Clear Calc 70.5 Estimated GFR > 60 Random Glucose 238 H Lactic Acid 0.8 Calcium 9.0 Magnesium 1.9 Total Bilirubin 0.3 Direct Bilirubin 0.1 AST 20 ALT 19 Alkaline Phosphatase 66 Troponin I High Sens 9.8 D B-Natriuretic Peptide 498 H Total Protein 7.8 Albumin 4.0 Procalcitonin 0.02 COVID-19 ([place]) Negative COVID-19 Clin Com See Note Influenza Type A (MEG) Negative Influenza Type B (MEG) Negative Influenza A & B Note See Note Imaging Radiologist's Impressions: Impressions Chest X-Ray 11/01/23 23:55 IMPRESSION: Apparent vascular congestion and mild diffuse increased markings likely secondary to low lung volumes. Mild congestion/interstitial edema also considered. Abdomen/Pelvis CT 11/02/23 01:03 IMPRESSION: Diverticulosis without evidence of diverticulitis. Irregular contour of the liver suggestive of cirrhosis. Uterine fibroid. There is suggestion of lower lung field interstitial edema. Fleischner guidelines were followed. Assessment and Plan (1) CHF (congestive heart failure): Qualifiers: Heart failure chronicity: acute Heart failure type: unspecified Qualified Code(s): I50.9 - Heart failure, unspecified Status: Acute (2) Hypoxia: Status: Acute Plan This is a 78-year-old female with pertinent history of rdl-[id number] diabetes mellitus, COPD not on home oxygen, NICO on CPAP, gastroesophageal reflux disease, cirrhosis of the liver who presents to the emergency department for evaluation of dyspnea and abdominal discomfort. #. Acute hypoxemic respiratory failure due to acute decompensated congestive heart failure: Will admit patient with supplemental oxygen. Initiating IV diuresis. Strict I's and O's. Low-salt diet. Obtaining transthoracic echocardiogram #. Abdominal discomfort: Congestion in the setting of above versus gastroenteritis. Imaging without acute abnormality. Symptomatic treatment for now. Obtaining stool studies #. Raw-vnpmuzq-puvkrhzql diabetes mellitus with hyperglycemia: Initiating Accu-Cheks with sliding scale insulin #. Gastroesophageal reflux disease: On famotidine #. Cirrhosis of the liver: No decompensation #. NICO: Continue CPAP at bedtime #. Essential hypertension: Continue home antihypertensives #. Obesity: Counseled regarding diet and exercise Med rec pending DVT prophylaxis: Lovenox Full code Admit as inpatient and will require two night minimum hospital stay for supplemental oxygen, IV diuresis (as above), which is not possible in a lesser acute setting. Quality Stroke Does the patient have a stroke diagnosis?: No VTE Prior VTE?: No VTE Risk Level:: Medical - moderate - high VTE Device Contraindication: Treatment Not Indicated VTE Drug Contraindication: N/A - Med Ordered
[2023-11-02] MEDS: Furosemide 40 MG/4 ML VIAL IVPUSH ×2 (03:46→09:02)
[2023-11-02] MEDS: Enoxaparin Sodium 40 MG/0.4 ML SYRINGE SUBCUT (03:52)
[2023-11-02 05:17] LABS: MANUAL DIFF FLAG NO
[2023-11-02 05:21] LABS: Basophils Percent Auto 0.5 % (0-2); Eosinophils Absolute Auto 0.1 X10*3/uL (0.0-0.4); Eosinophils Percent Auto 1.8 % (0-4); Imm Gran Abs Auto 0.02 X10*3/uL (0.00-0.03); Imm Gran Pct Auto 0.3 % (0.0-0.4); Lymphocytes Absolute Auto 1.4 X10*3/uL (1.2-4.9); Lymphocytes Percent Auto 18.5 % (20-40); Mean Corpuscular Hemoglobin 30.4 pg (27.0-33.0); Mean Corpuscular Volume 98.1 fL (80.0-98.0); Mean Platelet Volume 10.6 fL (9.4-12.3); Monocytes Absolute Auto 0.7 X10*3/uL (0.1-1.2); Monocytes Percent Auto 9.4 % (2-11); Neutrophils Absolute Auto 5.3 x10*3/uL (2.0-8.3); Neutrophils Percent Auto 69.5 % (45-73); Platelet Count 196 X10*3/uL (160-400); Red Blood Count 4.28 X10*6/uL (4.20-5.50); Red Cell Distribution Width 13.2 % (11.0-16.0); White Blood Count 7.6 X10*3/uL (4.8-10.8)
--- NOTE | 2023-11-02 05:24 | PC.RT ---
Pt sleeping comfortably on 2L NC
[2023-11-02 05:40] LABS: Anion Gap 14 (12-20); Blood Urea Nitrogen 13 mg/dL (9-16); Calcium 9.1 mg/dL (8.4-10.2); Carbon Dioxide 37 mmol/L (22-29); Chloride 93 mmol/L (96-108); Creatinine Clr Calc Pharmacy 71.3; Estimated Glomerular Filt Rate > 60; Glucose Random 182 mg/dL (60-115); Potassium 4.4 mmol/L (3.3-5.1); Sodium 140 mmol/L (135-145)
--- NOTE | 2023-11-02 07:00 | CA_ITS ---
Transthoracic Echocardiogram Patient (Last, First, Middle): Magalie Live M Gender: Female Date of : 1945 Age: 78 Procedure Date: 11/02/2023 Procedure Type: Transthoracic Echocardiogram Location: ER Height: 160. cm Weight: 115.67 kg BSA: 2.14 m2 Heart Rate: bpm BP: 123 / 60 mmHg Marzipan Molder: RANI Referring MD: Kassy Black MD Symptoms: chf Study Quality: Adequate Conclusions: - Normal left ventricular cavity size. There is mildly increased left ventricular wall thickness. The left ventricular systolic function is hyperdynamic. The visually estimated ejection fraction is >70%. - E/E prime ratio is between 8 and 15 consistent with indeterminate filling pressures. - Normal right ventricular cavity size and systolic function. - The left atrium is normal in size. The right atrium is mildly dilated. - Significantly elevated right atrial pressure. Mild pulmonary hypertension is present. Findings Left Ventricle Normal left ventricular cavity size. There is mildly increased left ventricular wall thickness. The left ventricular systolic function is hyperdynamic. The visually estimated ejection fraction is >70%. There is no evidence of regional wall motion abnormalities. Abnormal diastolic function is noted. Spectral Doppler is indicative of a pseudonormal filling pattern. E/E prime ratio is between 8 and 15 consistent with indeterminate filling pressures. Right Ventricle Normal right ventricular cavity size and systolic function. Atria The left atrium is normal in size. The right atrium is mildly dilated. Aortic Valve There is a normal trileaflet aortic valve. There is mild calcification of the aortic valve. There is no aortic valve stenosis. There is no aortic valve regurgitation. Mitral Valve Normal mitral valve structure and function. There is no mitral valve regurgitation. There is no mitral valve stenosis. Pulmonic Valve Normal pulmonic valve structure and function. There is trace pulmonic valve regurgitation. Tricuspid Valve Normal tricuspid valve structure. There is trace tricuspid valve regurgitation. The right ventricular systolic pressure is 43 mmHg. Significantly elevated right atrial pressure. Mild pulmonary hypertension is present. Great Vessels All visible segments of the aorta are normal in size. The visualized portions of the pulmonary artery and branches are normal. Venous The inferior vena cava is dilated and collapses less than 50% with inspiration. Pericardium/Pleural There is no evidence of pericardial effusion. Prior Study Comparison Changes noted compared to prior study dated: 12/07/2022. Hyperdynamic LV, Significantly elevated RA pressure, mild pulmonary hypertension. Measurements 2D Linear Measurements IVSd: 1.04 0.6-0.9/0.6-1.0 cm LVIDd: 4.44 3.9-5.3/4.2-5.9 cm LVIDd Index: 2.07 2.4-3.2/2.2-3.1 cm/m2 LVIDs: 2.49 2.0-3.6 cm LVPWd: 0.99 0.7-1.1 cm LA Diam: 3.00 2.7-3.8/3.0-4.0 cm LAIDs Index: 1.40 1.5-2.3 cm/m2 LV Mass: 190.64 67-162/88-224 g LV Mass Index: 89.09 43-95/49-115 g/m2 LVOT Diam: 1.90 3.0+(-)1.3 cm 2D Systolic Function EF 4C: 76.80 >55% EF 2C: 74.20 >55% EF BiP: 74.70 >55% Mitral Valve MV Pk E: 0.83 MV PK A: 0.77 MV Decel Time: 245.00 E/A: 1.10 E'Lateral: 8.81 E'Medial: 4.90 E/E' Med: 16.90 E/E' Lat: 9.40 PHT: 72.00 MVA PHT: 3.06 Decel Fallon: 3.37 Aortic Valve AoV Pk Camron: 1.97 AoV Mn Camron: 1.32 AoV VTI: 0.45 AoV Pk Grad: 16.00 Aov Mn Grad: 8.00 ALEX Cont.VTI: 2.14 LVOT LVOT Pk Camron: 1.37 LVOT Mn Camron: 0.99 LVOT VTI: 0.34 LVOT Pk Grad: 8.00 LVOT Mn Grad: 4.00 LVOT Diam: 1.90 LVOT Area: 2.84 Diastolic Function MV Pk E: 0.83 MV Pk A: 0.77 E/A: 1.10 E'Medial: 4.90 E/E' Med: 16.90 E' Laterial: 8.81 E/E' Lat: 9.40 Right Ventricle TAPSE (mm): 24.80 TVS' Camron: 9.90 Tricuspid Valve TR Pk Camron: 2.64 TR Pk Grad: 28.00 RA Press: 15.00 RVSP: 43.00 Great Vessels Aorta Sinus of Valsalva: 3.30 2.0-3.5 cm Ao Asc: 3.30 2.1-3.4 cm Pulmonary Valve PV Pk Camron: 0.99 Peak PV Grad: 4.00 Updated in Other Vendor System with Status of Final Jake Veliz MD electronically signed on 11/02/2023 8:51:08 PM with status of Final
[2023-11-02 07:53] LABS: Glucose, Whole Blood 180 mg/dL (60-115)
[2023-11-02] MEDS: Insulin Lispro 100 UNIT/ML 3 ML VIAL SUBCUT ×2 (08:11→12:35)
[2023-11-02] MEDS: 0.9 % Sodium Chloride Flush 3 ML SYRINGE IVFLUSH ×3 (08:11→22:03)
--- NOTE | 2023-11-02 11:41 | P.CONCA_ITS ---
History of Present Illness History of Present Illness Date of Service: 11/02/23 Requesting physician: Lisseth Shell Chief complaint: Dyspnea Narrative: 78-year-old female who has background history of diastolic heart failure, obstructive sleep apnea, obesity hypoventilation syndrome and cirrhosis of liver who is presenting with shortness of breath. The patient was quite sleepy at the time of interview and mostly history was taken from the son. The son said that the patient had dyspnea and was complaining of shortness of breath which was the reason for coming to emergency department. She was found to be in congestive heart failure. Patient is quite sleepy currently and after calling her name and shaking her she woke up. The son said that she appeared quite drowsy and sleepy. He also said that she wears a mask when she is sleep which is likely BiPAP. The patient denied any symptoms currently. She is on supplemental oxygen. She also complained of some abdominal pain which she is saying is gone at this point. [facility] Past Medical History Medical History Obesity hypoventilation syndrome INCO (obstructive sleep apnea) GERD (gastroesophageal reflux disease) Hypertension Diabetes mellitus COPD (chronic obstructive pulmonary disease) Family History Family History Mother Diabetes Surgical History Surgical History S/P laparoscopic cholecystectomy (07/14/21) Social History Social History Household Members: None Housing: Apartment Do you presently have visiting nurse or other home services: Yes Patient Tobacco Use Status: Former Tobacco user Tobacco use type: Cigarette Years Smoked: 20 Advance Directives: No Advance Directives Information Provided: No Nutrition Risks: No Nutritional Risk service: No Current occupational status: unemployed and disabled Meds Allergies Allergy/AdvReac Type Severity Reaction Status Date / Time No Known Allergies Allergy Verified 11/01/23 23:08 [No Known Allergies*] Active Medications: Current Medications Acetaminophen (Acetaminophen 325 Mg Tablet) 650 mg PO Q6H PRN PRN Reason: Pain, Mild (Pain Scale 1-3) Dextrose (Dextrose 50 % 25 Gm/50 Ml Syringe) 25 gm IVPUSH Q15M PRN; Protocol PRN Reason: per Hypoglycemia Standing Ord. Enoxaparin Sodium (Enoxaparin Sodium 40 Mg/0.4 Ml Syringe) 40 mg SUBCUT DAILY [facility] Last Admin: 11/02/23 03:52 Dose: 40 mg Furosemide (Furosemide 40 Mg/4 Ml Vial) 40 mg IVPUSH DAILY [facility]; Protocol Last Admin: 11/02/23 09:02 Dose: 40 mg Glucose (Glucose Gel 15 Gm Gel..Gram.) 15 gm PO Q15M PRN; Protocol PRN Reason: per Hypoglycemia Standing Ord. Insulin Human Lispro (Insulin Lispro 100 Unit/Ml 3 Ml Vial) 0 unit SUBCUT QIDACHS [facility]; Protocol Last Admin: 11/02/23 08:11 Dose: 2 unit Melatonin (Melatonin 3 Mg Tablet) 6 mg PO BEDTIME PRN PRN Reason: Insomnia Ondansetron HCl (Ondansetron Hcl 4 Mg/2 Ml Vial) 4 mg IVPUSH Q8H PRN PRN Reason: Nausea and Vomiting Sodium Chloride (0.9 % Sodium Chloride Flush 3 Ml Syringe) 3 ml IVFLUSH QSHIFT [facility] Last Admin: 11/02/23 08:11 Dose: 3 ml Home Medications Medication Instructions Recorded Confirmed Last Taken Type carvedilol 12.5 mg tablet 1 tab PO BID 07/12/21 02/20/22 02/19/22 History hydralazine 10 mg tablet 1 tab PO TID 07/12/21 02/20/22 02/19/22 History isosorbide mononitrate 20 mg tablet 20 mg PO DAILY 07/12/21 02/20/22 02/19/22 History losartan 100 mg tablet 1 tab PO QAM 07/12/21 02/20/22 02/19/22 History lancets 33 gauge (TRUEplus Lancets) #100 ea 09/20/21 02/19/22 History sitagliptin phos 50 mg-metformin 1 tab PO DAILY 02/20/22 02/20/22 02/19/22 History ER 1,000 mg tablet,extend rel 24h mp (Janumet XR) famotidine 20 mg tablet 20 mg PO BEDTIME 11/15/22 Unknown History pantoprazole 40 mg tablet,delayed 40 mg PO QAM 11/15/22 Unknown History release spironolactone 25 mg tablet 25 mg PO QAM 11/15/22 Unknown History furosemide 40 mg tablet 40 mg PO [facility] 05/11/23 Unknown History Physical Exam 2 Vital Signs: Vital Signs: Last Vital Signs Temp 97.8 F 11/02/23 07:28 Pulse 70 11/02/23 08:01 Resp 20 11/02/23 08:01 BP 110/50 L 11/02/23 08:01 Pulse Ox 97 11/02/23 08:01 O2 Del Method Room Air 11/02/23 08:01 O2 Flow Rate 2 11/02/23 07:28 BMI result Body Mass Index 45.2 GENERAL APPEARANCE: Sleepy but arousable. On supplemental oxygen. Morbidly obese. NECK: no carotid bruit, + jugular venous distention. SKIN: no suspicious lesions, warm and dry. HEART: no murmurs, regular rate and rhythm. LUNGS: Bilateral crackles. ABDOMEN: soft, nontender. EXTREMITIES: + edema. PERIPHERAL PULSES: equal. NEUROLOGIC: No gross deficits, sleepy but arousable. Asterixis positive. Objective Labs and Meds 11/02/23 04:19 11/02/23 04:19 Lab results: Laboratory Results - last 24 hr 11/01/23 11/01/23 11/02/23 23:44 23:49 04:19 WBC 7.3 7.6 RBC 3.88 L 4.28 Hgb 11.5 L 13.0 Hct 37.7 42.0 MCV 97.2 98.1 H MCH 29.6 30.4 MCHC 30.5 L 31.0 RDW 13.1 13.2 Plt Count 176 196 MPV 10.5 10.6 Immature Gran % (Auto) 0.3 0.3 Neut % (Auto) 66.8 69.5 Lymph % (Auto) 20.5 18.5 L Kenedy % (Auto) 9.5 9.4 Eos % (Auto) 2.5 1.8 Baso % (Auto) 0.4 0.5 Lymph # (Auto) 1.5 1.4 K[place]y # (Auto) 0.7 0.7 Eos # (Auto) 0.2 0.1 Baso # (Auto) 0.0 0.0 Abs Immat Gran (auto) 0.02 0.02 Absolute Neuts (auto) 4.9 5.3 Absolute Nucleated RBC 0.000 0.000 Nucleated RBC % (auto) 0.0 0.0 PT 12.4 INR 1.0 VBG pH 7.38 VBG pCO2 73 VBG pO2 57 VBG HCO3 44 H VBG O2 Saturation 83.0 VBG Base Excess 15.7 Sodium 140 140 Potassium 4.2 4.4 Chloride 94 L 93 L Carbon Dioxide 39 H 37 H Anion Gap 11 L 14 BUN 15 13 Creatinine 0.82 0.81 Estim Creat Clear Calc 70.5 71.3 Estimated GFR > 60 > 60 POC Glucose Random Glucose 238 H 182 H Lactic Acid 0.8 Calcium 9.0 9.1 Magnesium 1.9 Total Bilirubin 0.3 Direct Bilirubin 0.1 AST 20 ALT 19 Alkaline Phosphatase 66 Troponin I High Sens 9.8 D B-Natriuretic Peptide 498 H Total Protein 7.8 Albumin 4.0 Procalcitonin 0.02 COVID-19 ([facility]) Negative COVID-19 Clin Com See Note Influenza Type A (MEG) Negative Influenza Type B (MEG) Negative Influenza A & B Note See Note 11/02/23 07:34 WBC RBC Hgb Hct MCV MCH MCHC RDW Plt Count MPV Immature Gran % (Auto) Neut % (Auto) Lymph % (Auto) [place] % (Auto) Eos % (Auto) Baso % (Auto) Lymph # (Auto) [place] # (Auto) Eos # (Auto) Baso # (Auto) Abs Immat Gran (auto) Absolute Neuts (auto) Absolute Nucleated RBC Nucleated RBC % (auto) PT INR VBG pH VBG pCO2 VBG pO2 VBG HCO3 VBG O2 Saturation VBG Base Excess Sodium Potassium Chloride Carbon Dioxide Anion Gap BUN Creatinine Estim Creat Clear Calc Estimated GFR POC Glucose 180 H Random Glucose Lactic Acid Calcium Magnesium Total Bilirubin Direct Bilirubin AST ALT Alkaline Phosphatase Troponin I High Sens B-Natriuretic Peptide Total Protein Albumin Procalcitonin COVID-19 ([facility]) COVID-19 Clin Com Influenza Type A (MEG) Influenza Type B (MEG) Influenza A & B Note Imaging Radiologist's impression: Impressions Chest X-Ray 11/01/23 23:55 IMPRESSION: Apparent vascular congestion and mild diffuse increased markings likely secondary to low lung volumes. Mild congestion/interstitial edema also considered. Abdomen/Pelvis CT 11/02/23 01:03 IMPRESSION: Diverticulosis without evidence of diverticulitis. Irregular contour of the liver suggestive of cirrhosis. Uterine fibroid. There is suggestion of lower lung field interstitial edema. Fleischner guidelines were followed. Assessment and Plan (1) CHF (congestive heart failure): Qualifiers: Heart failure chronicity: acute Heart failure type: unspecified Qualified Code(s): I50.9 - Heart failure, unspecified Status: Acute Plan [age] year female presenting for congestive heart failure and shortness of breath. Initial blood pressure was quite high. Currently blood pressures are normal. Clinically she appears volume overloaded. Agree with IV diuretics with close monitoring of electrolytes. She should be on 40 mg IV b.i.d. Lasix. She is quite sleepy and drowsy. She has mild asterixis on examination 2. She has known history of obesity hypoventilation and has been sleeping without BiPAP. She should be on BiPAP every time she goes to sleep. If confusion and drowsiness increases then she should have workup for SBP given history of cirrhosis. Thank you for allowing me to participate in the care of your patient. Please feel free to contact me if you have any questions. Procedures Date of Service Date of Service: 11/02/23
[2023-11-02 12:33] LABS: Glucose, Whole Blood 189 mg/dL (60-115)
[2023-11-02] MEDS: Acetaminophen 325 MG TABLET 650 MG PO (12:35)
--- NOTE | 2023-11-02 14:03 | PHA.MEDREC ---
Pharmacy Consult ? Medication Reconciliation Pharmacy has completed the medication reconciliation. Confirmed medications with patient through warp changer and pharmacy generated list she brought with her. Isorboride mononitrate 20mg daily, furosimide 40mg Qam, and Vitamin D2 qweek (mon) were not on the list but were all recently filled and have been filled continuously. Kept on Med list.
--- NOTE | 2023-11-02 14:09 | MHC.CM.PN ---
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
--- NOTE | 2023-11-02 14:35 | PM.EVENT ---
Event Note Date of Service: 11/02/23 Event Note: Day hospitalist update S: Dyspnea improving Abd discomfort resolved no chest pain O: VS- BP 123/60 P 67 R 15 SaO2 97 on 2L T 98F Gen: in no acute distress HEENT: sclera anicteric, moist mucus membranes Neck: supple, JVD Lungs: bilateral inspiratory crackles at bases Heart: regular rate and rhythm, no murmurs, obese Abd: soft, non-tender, non-distended Ext: 1+ pitting BLE edema Skin: warm/well-perfused Neuro: alert and oriented x3, no focal findings Psych: appropriate affect A/P: d1 78yo F with DM2, COPD not on home O2, NICO on CPAP, GERD, HFpEF, liver cirrhosis presenting with dyspnea + abd discomfort worsening over last month admitted for hypoxia due to CHF exac acute hypoxic resp failure due to acute-chronic HFpEF - Cardiology consult, TTE, diuresis with IV furosemide, Na restriction, monitor BMP/Mg/BNP/I+O/wt - continue Imdur, hydralazine, carvedilol, losartan, spironolactone - wean O2 as tolerated liver cirrhosis - check NH3. no ascites. DM2 with hyperglycemia - hold OHGs, give eri-dose lispro GERD - continue H2RA NICO - continue CPAP at hs morbid obesity - diet/exercise counseling VTE ppx - LMWH dispo - TBD In my clinical judgment, the patient requires continued inpatient hospitalization for the following reasons: IV diuresis + hypoxia Time Spent With Patient Time: Total time managing care of this patient today _45___ minutes.
[2023-11-02] MEDS: hydrALAZINE HCl 25 MG TABLET PO (15:46)
--- NOTE | 2023-11-02 15:50 | PC.NURSE ---
pt noted to be significantly lethargic, initially only responsive to painful stimuli. once awake, pt able to talk, answer questions, swallow with no issues. pts vitals assessed and are stable. BGL assessed and is 184. hospitalist notified and now at bedside doing exam.
[2023-11-02 16:00] LABS: Glucose, Whole Blood 184 mg/dL (60-115)
[2023-11-02 16:21] LABS: Ammonia 43 umol/L (13-55)
[2023-11-02 16:21] LABS: ABG Base Excess 12.3 mmol/L; ABG HCO3 44 mmol/L (22-26); ABG pCO2 104 mmHg (32-45); ABG pH 7.23 (7.35-7.45); ABG pO2 88 mmHg (83-108)
[2023-11-02 16:25] LABS: ABG Refer to POC result
--- NOTE | 2023-11-02 16:33 | PC.NURSE ---
RT at bedside, pt placed on BIPAP. Tolerating well at this time, vss. BIPAP settings: 18/, 40%
--- NOTE | 2023-11-02 16:38 | PM.EVENT ---
Event Note Date of Service: 11/02/23 Event Note: Called by RN for altered mental status. Pt somnolent but arousable but immediately falls back asleep. Asterixis noted. Ammonia normal. ABG with pH 7.23, PCO2 104. Placed BiPAP and will contact ICU for transfer Time Spent With Patient Time: Total time managing care of this patient today ____ minutes.
[2023-11-02 18:02] LABS: Glucose, Whole Blood 193 mg/dL (60-115)
--- NOTE | 2023-11-02 18:08 | PC.NURSE ---
Pt remains lethargic, difficult to arouse. On Bipap. Family at bedside. VSS with sat 96% on 40% Fi02, Dr Shell aware. Awaits ICU admit. POC 193, will hold Insulin d/t NPO on Bipap and lethargy
--- NOTE | 2023-11-02 18:21 | PC.NURSE ---
New ABG order placed
--- NOTE | 2023-11-02 18:28 | P.CONCC_ITS ---
History of Present Illness Data of Consult Service Date: 11/02/23 Requesting physician: Lisseth Shell Primary Care Provider: [facility] Reason for consult: Metabolic encephalopathy/intractable hypercarbia 78-year-old female with obesity/hypoventilation and obstructive sleep apnea presents with acute on chronic hypercarbic respiratory failure it was felt that she had an element of congestive heart failure diuresed placed on CPAP and she continued to worsen and then became unresponsive with pCO2 elevation to over 100 and acidotic transferred to the ICU placed on an AVAPS mode on BiPAP pCO2 came down to 70 with completely compensated pH probably close to her chronic state of affairs she woke up and today we temporized on some high-flow but she was right back up to pCO2 of 85 and required going back on the BiPAP again and she remained overnight like that woke up restored mental status Longstanding hypertensive on isosorbide and hydralazine type 2 diabetes on Janumet also for hypertension losartan furosemide and carvedilol also hyperlipidemic on pravastatin Chest x-ray showed potential interstitial infiltrate and CT scan defined and extensive bilateral areas of ground-glass infiltrates no distinct consolidation no fever no chills no productive cough Review of Systems 2 Review of Systems: Yes Unobtainable due to mental status PMFSH Past Medical History Medical History (Updated 11/03/23 @ 16:41 by Deandre Shaikh MD) Hypertensive cardiovascular disease Acute hypoxic on chronic hypercapnic respiratory failure Acute on chronic respiratory failure with hypoxemia Obesity hypoventilation syndrome NICO (obstructive sleep apnea) GERD (gastroesophageal reflux disease) Hypertension Diabetes mellitus COPD (chronic obstructive pulmonary disease) Family History Family History Mother Diabetes Surgical History Surgical History S/P laparoscopic cholecystectomy (07/14/21) Social History Social History Household Members: Family Housing: Unknown / Unable to assess Do you presently have visiting nurse or other home services: Yes Patient Tobacco Use Status: Former Tobacco user Tobacco use type: Cigarette Years Smoked: 20 service: No Current occupational status: unemployed and disabled Meds Allergies Allergy/AdvReac Type Severity Reaction Status Date / Time No Known Allergies Allergy Verified 11/01/23 23:08 [No Known Allergies*] Active Medications: Current Medications Acetaminophen (Acetaminophen 325 Mg Tablet) 650 mg PO Q6H PRN PRN Reason: Pain, Mild (Pain Scale 1-3) Last Admin: 11/02/23 12:35 Dose: 650 mg Albuterol Sulfate (Albuterol Sulfate 90 Mcg 8 Gm Inhaler) 2 puff INHALE Q6H PRN PRN Reason: Wheezing Carvedilol (Carvedilol 25 Mg Tablet) 25 mg PO BID [facility]; Protocol Dextrose (Dextrose 50 % 25 Gm/50 Ml Syringe) 25 gm IVPUSH Q15M PRN; Protocol PRN Reason: per Hypoglycemia Standing Ord. Enoxaparin Sodium (Enoxaparin Sodium 40 Mg/0.4 Ml Syringe) 40 mg SUBCUT DAILY [facility] Last Admin: 11/02/23 03:52 Dose: 40 mg Ergocalciferol (Ergocalciferol (Vitamin D2) 1,250 Mcg Capsule) 1,250 mcg PO MO [facility] Famotidine (Famotidine 20 Mg Tablet) 20 mg PO BID [facility] Furosemide (Furosemide 40 Mg/4 Ml Vial) 40 mg IVPUSH DAILY [facility]; Protocol Last Admin: 11/02/23 09:02 Dose: 40 mg Glucose (Glucose Gel 15 Gm Gel..Gram.) 15 gm PO Q15M PRN; Protocol PRN Reason: per Hypoglycemia Standing Ord. Hydralazine HCl (Hydralazine Hcl 25 Mg Tablet) 25 mg PO TID [facility]; Protocol Last Admin: 11/02/23 15:46 Dose: 25 mg Insulin Human Lispro (Insulin Lispro 100 Unit/Ml 3 Ml Vial) 0 unit SUBCUT QIDACHS [facility]; Protocol Last Admin: 11/02/23 18:06 Dose: Not Given Losartan Potassium (Losartan Potassium 50 Mg Tablet) 100 mg PO DAILY [facility]; Protocol Melatonin (Melatonin 3 Mg Tablet) 6 mg PO BEDTIME PRN PRN Reason: Insomnia Non-Formulary Medication (Isosorbide Mononitrate) 20 mg PO DAILY [facility] Omeprazole (Omeprazole 20 Mg Capsule.Dr) 20 mg PO DAILY@0600 [facility] Ondansetron HCl (Ondansetron Hcl 4 Mg/2 Ml Vial) 4 mg IVPUSH Q8H PRN PRN Reason: Nausea and Vomiting Pravastatin Sodium (Pravastatin Sodium 40 Mg Tablet) 40 mg PO BEDTIME [facility] Sodium Chloride (0.9 % Sodium Chloride Flush 3 Ml Syringe) 3 ml IVFLUSH QSHIFT [facility] Last Admin: 11/02/23 15:46 Dose: 3 ml Spironolactone (Spironolactone 25 Mg Tablet) 25 mg PO DAILY [facility]; Protocol Home Medications Medication Instructions Recorded Confirmed Last Taken Type isosorbide mononitrate 20 mg tablet 20 mg PO DAILY 07/12/21 11/02/23 11/01/23 History losartan 100 mg tablet 1 tab PO QAM 07/12/21 11/02/23 11/01/23 History lancets 33 gauge (TRUEplus Lancets) #100 ea 09/20/21 02/19/22 History sitagliptin phos 50 mg-metformin 1 tab PO DAILY 02/20/22 11/02/23 11/01/23 History ER 1,000 mg tablet,extend rel 24h mp (Janumet XR) spironolactone 25 mg tablet 25 mg PO QAM 11/15/22 11/02/23 11/01/23 History furosemide 40 mg tablet 40 mg PO QAM 05/11/23 11/02/23 11/01/23 History albuterol sulfate 90 mcg/actuation 2 puff inhalation Q6H PRN Wheezing 11/02/23 11/02/23 11/01/23 History aerosol inhaler carvedilol 25 mg tablet 25 mg PO BID 11/02/23 11/02/23 11/01/23 History ergocalciferol (vitamin D2) 1,250 1,250 mcg PO MO 11/02/23 11/02/23 11/01/23 History mcg (50,000 unit) capsule famotidine 20 mg tablet 20 mg PO BID 11/02/23 11/02/23 11/01/23 History hydralazine 25 mg tablet 25 mg PO TID 11/02/23 11/02/23 11/01/23 History pantoprazole 40 mg tablet,delayed 40 mg PO QAM 11/02/23 11/02/23 11/01/23 History release pravastatin 40 mg tablet 40 mg PO QPM 11/02/23 11/02/23 11/01/23 History Physical Exam 2 Vital Signs: Vital Signs: Last Vital Signs Temp 98.0 F 11/02/23 13:42 Pulse 67 11/02/23 18:05 Resp 16 11/02/23 18:05 BP 133/54 L 11/02/23 18:05 Pulse Ox 96 11/02/23 18:05 O2 Del Method BiPAP 11/02/23 18:05 O2 Flow Rate 2 11/02/23 15:57 FiO2 40 11/02/23 18:05 BMI result Body Mass Index 45.2 To very diminished arousability but when awake moves all 4 extremities Markedly diminished bilateral breath sounds no adventitious sounds Bedside echo with normal LV and RV size and function no primary valve or pericardial disease no significant IVC distension Abdomen benign with no organomegaly Barely trace peripheral edema Results Labs 11/03/23 04:24 11/03/23 04:24 Labs: Short CBC 11/01/23 11/02/23 Range/Units 23:44 04:19 WBC 7.3 7.6 (4.8-10.8) X10*3/uL Hgb 11.5 L 13.0 (12.0-16.0) g/dl Hct 37.7 42.0 (37.0-47.0) % Plt Count 176 196 (160-400) X10*3/uL BMP 11/01/23 11/02/23 23:44 04:19 Sodium 140 140 Potassium 4.2 4.4 Chloride 94 L 93 L Carbon Dioxide 39 H 37 H BUN 15 13 Creatinine 0.82 0.81 Calcium 9.0 9.1 Liver Function 11/01/23 Range/Units 23:44 Total Bilirubin 0.3 (0.0-1.0) mg/dL Direct Bilirubin 0.1 (0.0-0.5) mg/dL AST 20 (5-31) U/L ALT 19 (0-31) U/L Alkaline Phosphatase 66 (39-117) U/L Albumin 4.0 (3.5-5.0) g/dL Assessment and Plan (1) Acute on chronic respiratory failure with hypoxemia: Status: Acute (2) Acute hypoxic on chronic hypercapnic respiratory failure: Status: Acute (3) Diabetes mellitus: Status: Acute (4) Obesity hypoventilation syndrome: Status: Acute (5) NICO (obstructive sleep apnea): Status: Acute (6) Hypertensive cardiovascular disease: Status: Acute Plan Plan is to maintain her on the BiPAP for as long as possible without artificial diuresis as the patient does not appear to be grossly fluid overloaded and I am going to stop the hydralazine and isosorbide due to questionable hypersensitivity issues related to these ground-glass infiltrates and will watch her progress and decide in the morning about addition of steroids right now does not seem to have any reactive airway problems Total time managing care of this patient today: 60 minutes.
[2023-11-02 18:34] LABS: ABG Base Excess 12.9 mmol/L; ABG HCO3 46 mmol/L (22-26); ABG pCO2 108 mmHg (32-45); ABG pH 7.23 (7.35-7.45); ABG pO2 94 mmHg (83-108)
[2023-11-02 18:56] LABS: ABG Refer to POC result
[2023-11-02] MEDS: Albuterol Sulfate 7.5 MG, Albuterol Sulfate (0.083%) 2.5 MG 10 MG INHALE (19:29)
[2023-11-02] MEDS: levoFLOXacin/D5W 750 MG/150 ML PIGGYBACK 100 MG IV (20:40)
[2023-11-02] MEDS: Famotidine 20 MG TABLET PO (20:46)
[2023-11-02] MEDS: Pravastatin Sodium 40 MG TABLET PO (20:46)
[2023-11-02] MEDS: carvediloL 12.5 MG TABLET PO (20:46)
--- NOTE | 2023-11-02 21:37 | PC.NURSE ---
2100- pt transported to icu with respiratory nitesh Joseph RN and yanira transporter. pt axox3. on bipap nad. nsr on monitor vss. pt tolerated po meds with water; ok to give per Dr. Shaikh.
[2023-11-02 21:46] LABS: VBG Base Excess 16.5 mmol/L; VBG HCO3 46 mmol/L (22-26); VBG pCO2 79 mmHg; VBG pH 7.36 (7.32-7.43); VBG pO2 38 mmHg
[2023-11-02] MEDS: Doxycycline Hyclate 100 MG in 0.9 % Sodium Chloride 250 ML 166.67 MG IV (22:01)
[2023-11-02 22:08] LABS: Venous Blood Gas Refer to POC result
[2023-11-03] VITALS (36 sets, daily range): BP systolic 96–169; BP diastolic 45–90; PULSE 69–85; RESP 12–23; TEMP 36.2–37.1; O2SAT 89–98; BMI 43.5
[2023-11-03 04:32] LABS: VBG Base Excess 18.5 mmol/L; VBG HCO3 46 mmol/L (22-26); VBG pCO2 70 mmHg; VBG pH 7.42 (7.32-7.43); VBG pO2 34 mmHg
[2023-11-03 05:07] LABS: MANUAL DIFF FLAG NO
[2023-11-03 05:11] LABS: Basophils Percent Auto 0.5 % (0-2); Eosinophils Absolute Auto 0.1 X10*3/uL (0.0-0.4); Eosinophils Percent Auto 1.5 % (0-4); Hematocrit 38.8 % (37.0-47.0); Hemoglobin 11.5 g/dl (12.0-16.0); Imm Gran Abs Auto 0.03 X10*3/uL (0.00-0.03); Imm Gran Pct Auto 0.4 % (0.0-0.4); Lymphocytes Absolute Auto 1.4 X10*3/uL (1.2-4.9); Mean Corpuscular HGB Conc 29.6 g/dl (31.0-35.0); Mean Corpuscular Hemoglobin 30.1 pg (27.0-33.0); Mean Corpuscular Volume 101.6 fL (80.0-98.0); Mean Platelet Volume 10.6 fL (9.4-12.3); Monocytes Absolute Auto 1.1 X10*3/uL (0.1-1.2); Monocytes Percent Auto 15.1 % (2-11); Neutrophils Absolute Auto 4.7 x10*3/uL (2.0-8.3); Neutrophils Percent Auto 63.5 % (45-73); Platelet Count 161 X10*3/uL (160-400); Red Blood Count 3.82 X10*6/uL (4.20-5.50); Red Cell Distribution Width 12.8 % (11.0-16.0); White Blood Count 7.4 X10*3/uL (4.8-10.8)
[2023-11-03 05:31] LABS: Phosphorus 3.8 mg/dL (2.7-4.5)
[2023-11-03 05:36] LABS: Anion Gap 14 (12-20); B Type Natriuretic Peptide 223 pg/mL (<100); Blood Urea Nitrogen 12 mg/dL (9-16); Calcium 8.8 mg/dL (8.4-10.2); Carbon Dioxide 37 mmol/L (22-29); Chloride 92 mmol/L (96-108); Creatinine Clr Calc Pharmacy 88.5; Estimated Glomerular Filt Rate > 60; Glucose Random 112 mg/dL (60-115); Magnesium 1.9 mg/dL (1.6-2.6); Potassium 4.5 mmol/L (3.3-5.1); Sodium 138 mmol/L (135-145)
[2023-11-03 06:18] LABS: Venous Blood Gas Refer to POC result
[2023-11-03 07:28] LABS: Glucose, Whole Blood 105 mg/dL (60-115)
[2023-11-03] MEDS: 0.9 % Sodium Chloride Flush 3 ML SYRINGE IVFLUSH ×3 (09:07→22:24)
[2023-11-03] MEDS: Famotidine 20 MG TABLET PO ×2 (09:07→20:36)
[2023-11-03] MEDS: carvediloL 12.5 MG TABLET PO ×2 (09:07→20:36)
[2023-11-03] MEDS: Spironolactone 25 MG TABLET PO (09:07)
[2023-11-03] MEDS: Losartan Potassium 50 MG TABLET 100 MG PO (09:07)
[2023-11-03] MEDS: Enoxaparin Sodium 40 MG/0.4 ML SYRINGE SUBCUT (09:18)
[2023-11-03] MEDS: Furosemide 40 MG/4 ML VIAL IVPUSH (09:19)
[2023-11-03] MEDS: Doxycycline Hyclate 100 MG in 0.9 % Sodium Chloride 250 ML 166.67 MG IV ×2 (09:19→20:41)
[2023-11-03] MEDS: levoFLOXacin/D5W 500 MG/100 ML PIGGYBACK 100 MG IV (11:30)
[2023-11-03 11:39] LABS: Glucose, Whole Blood 104 mg/dL (60-115)
[2023-11-03 11:47] LABS: ABG Base Excess 21.6 mmol/L; ABG HCO3 51 mmol/L (22-26); ABG pCO2 85 mmHg (32-45); ABG pH 7.39 (7.35-7.45); ABG pO2 66 mmHg (83-108)
[2023-11-03 11:53] LABS: Appearance Urine Turbid; Color Urine Yellow; Glucose Urine UA Negative (Negative); Leukocyte Esterase Urine Negative (Negative); Nitrite Urine Negative (Negative); PH 6.5 (5.0-9.0); Urine Blood Negative (Negative); Urine Ketones Negative (Negative); Urine Protein Negative (Neg-Trace)
[2023-11-03 12:07] LABS: Adenovirus PCR Not Detected (Not Detect.); Bordetella parapertussis PCR Not Detected (Not Detect.); Bordetella pertussis PCR Not Detected (Not Detect.); Chlamydia pneumoniae PCR Not Detected (Not Detect.); Coronavirus 229E PCR Not Detected (Not Detect.); Coronavirus HKU1 PCR Not Detected (Not Detect.); Coronavirus NL63 PCR Not Detected (Not Detect.); Coronavirus OC43 PCR Not Detected (Not Detect.); Human metapneumovirus PCR Not Detected (Not Detect.); Influenza A PCR Not Detected (Not Detect.); Influenza B PCR Not Detected (Not Detect.); Mycoplasma pneumoniae PCR Not Detected (Not Detect.); Parainfluenza 1 PCR Not Detected (Not Detect.); Parainfluenza 2 PCR Not Detected (Not Detect.); Parainfluenza 3 PCR Not Detected (Not Detect.); Parainfluenza 4 PCR Not Detected (Not Detect.); RSV PCR Not Detected (Not Detect.); Rhino/Enterovirus PCR Not Detected (Not Detect.)
[2023-11-03 12:41] LABS: SARS-CoV-2 PCR Not Detected (Not Detect.)
[2023-11-03 13:44] LABS: ABG Refer to POC result
[2023-11-03 16:33] LABS: Glucose, Whole Blood 86 mg/dL (60-115)
--- NOTE | 2023-11-03 16:43 | PM.CCPN ---
Subjective Subjective Date of Service: 11/03/23 Interval History: 78-year-old morbidly obese type 2 diabetic and hypertensive female with obstructive sleep apnea and obesity/hypoventilation presenting with acute on chronic hypercarbic and hypoxic respiratory failure with a CT scan defining those interstitial infiltrates as diffuse bilateral extensive ground-glass infiltration leading us to stop her hydralazine isosorbide and today I am sending off just a adeno a workup for autoimmune disease sarcoid granulomatous disease and and then with because there is no evidence whatsoever of any heart failure I am going to initiate steroids at this point Critical Care Time (minutes): 45 Physical Exam Vital Signs: Vital Signs: Last Vital Signs Temp 97.6 F 11/03/23 16:00 Pulse 71 11/03/23 16:00 Resp 20 11/03/23 16:00 BP 136/70 11/03/23 16:00 Pulse Ox 95 11/03/23 16:00 O2 Del Method BiPAP 11/03/23 16:00 O2 Flow Rate 40 11/03/23 12:00 FiO2 32 11/03/23 16:00 BMI result Body Mass Index 43.5 Vital signs stable and pCO2 is down to 70 on the BiPAP so we are doing very short intermittent breaks on nasal high-flow to allow her some clear liquids Diminished bilateral breath sounds no terrible work of breathing issues no adventitious sounds Bedside echo with preserved biventricular function Benign abdomen and no peripheral edema Objective Data Labs 11/03/23 04:24 11/03/23 04:24 Labs: Laboratory Results - last 24 hr 11/02/23 11/02/23 11/02/23 17:57 18:27 20:57 WBC RBC Hgb Hct MCV MCH MCHC RDW Plt Count MPV Immature Gran % (Auto) Neut % (Auto) Lymph % (Auto) [place] % (Auto) Eos % (Auto) Baso % (Auto) Lymph # (Auto) [place] # (Auto) Eos # (Auto) Baso # (Auto) Abs Immat Gran (auto) Absolute Neuts (auto) Absolute Nucleated RBC Nucleated RBC % (auto) O2 Saturation 96.0 ABG pH at Pt Temp 7.23 L ABG pCO2 at Pt Temp 108 H* ABG pO2 at Pt Temp 94 ABG HCO3 46 H ABG Base Excess (Actual) 12.9 VBG pH VBG pCO2 VBG pO2 VBG HCO3 VBG O2 Saturation VBG Base Excess Sodium Potassium Chloride Carbon Dioxide Anion Gap BUN Creatinine Estim Creat Clear Calc Estimated GFR POC Glucose 193 H Random Glucose Calcium Phosphorus Magnesium B-Natriuretic Peptide Urine Color Urine Appearance Urine pH Ur Specific [place] Urine Protein Urine Glucose (UA) Urine Ketones Urine Blood Urine Nitrite Ur Leukocyte Esterase Respiratory Panel [place] See Note Adenovirus (Rapid PCR) Not Detected B.pert (TEM-PCR) Not Detected B.parapertussis DNA PCR Not Detected C. pneumoniae DNA (PCR) Not Detected Coronavirus OC43 (PCR) Not Detected Coronavirus HKU1 (PCR) Not Detected Coronavirus 229E (PCR) Not Detected Coronavirus NL63 (PCR) Not Detected Human Metapneumovir PCR Not Detected Influenza A (RT-PCR) Not Detected Influenza B (RT-PCR) Not Detected M. pneumoniae (PCR) Not Detected Parainfluenza 1 (PCR) Not Detected Parainfluenza 2 (PCR) Not Detected Parainfluenza 3 (PCR) Not Detected Parainfluenza 4 (PCR) Not Detected RSV (PCR) Not Detected Entero/Rhino (PCR) Not Detected SARS-CoV-2 RNA (RT-PCR) Not Detected 11/02/23 11/03/23 11/03/23 21:40 04:23 04:24 WBC 7.4 RBC 3.82 L Hgb 11.5 L Hct 38.8 MCV 101.6 H MCH 30.1 MCHC 29.6 L RDW 12.8 Plt Count 161 MPV 10.6 Immature Gran % (Auto) 0.4 Neut % (Auto) 63.5 Lymph % (Auto) 19.0 L [place] % (Auto) 15.1 H Eos % (Auto) 1.5 Baso % (Auto) 0.5 Lymph # (Auto) 1.4 [place] # (Auto) 1.1 Eos # (Auto) 0.1 Baso # (Auto) 0.0 Abs Immat Gran (auto) 0.03 Absolute Neuts (auto) 4.7 Absolute Nucleated RBC 0.000 Nucleated RBC % (auto) 0.0 O2 Saturation ABG pH at Pt Temp ABG pCO2 at Pt Temp ABG pO2 at Pt Temp ABG HCO3 ABG Base Excess (Actual) VBG pH 7.36 7.42 VBG pCO2 79 70 VBG pO2 38 34 VBG HCO3 46 H 46 H VBG O2 Saturation 63.0 60.0 VBG Base Excess 16.5 18.5 Sodium 138 Potassium 4.5 Chloride 92 L Carbon Dioxide 37 H Anion Gap 14 BUN 12 Creatinine 0.66 Estim Creat Clear Calc 88.5 Estimated GFR > 60 POC Glucose Random Glucose 112 Calcium 8.8 Phosphorus 3.8 Magnesium 1.9 B-Natriuretic Peptide 223 H Urine Color Urine Appearance Urine pH Ur Specific [place] Urine Protein Urine Glucose (UA) Urine Ketones Urine Blood Urine Nitrite Ur Leukocyte Esterase Respiratory Panel [place] Adenovirus (Rapid PCR) B.pert (TEM-PCR) B.parapertussis DNA PCR C. pneumoniae DNA (PCR) Coronavirus OC43 (PCR) Coronavirus HKU1 (PCR) Coronavirus 229E (PCR) Coronavirus NL63 (PCR) Human Metapneumovir PCR Influenza A (RT-PCR) Influenza B (RT-PCR) M. pneumoniae (PCR) Parainfluenza 1 (PCR) Parainfluenza 2 (PCR) Parainfluenza 3 (PCR) Parainfluenza 4 (PCR) RSV (PCR) Entero/Rhino (PCR) SARS-CoV-2 RNA (RT-PCR) 11/03/23 11/03/23 11/03/23 07:23 11:28 11:32 WBC RBC Hgb Hct MCV MCH MCHC RDW Plt Count MPV Immature Gran % (Auto) Neut % (Auto) Lymph % (Auto) [place] % (Auto) Eos % (Auto) Baso % (Auto) Lymph # (Auto) [place] # (Auto) Eos # (Auto) Baso # (Auto) Abs Immat Gran (auto) Absolute Neuts (auto) Absolute Nucleated RBC Nucleated RBC % (auto) O2 Saturation ABG pH at Pt Temp ABG pCO2 at Pt Temp ABG pO2 at Pt Temp ABG HCO3 ABG Base Excess (Actual) VBG pH VBG pCO2 VBG pO2 VBG HCO3 VBG O2 Saturation VBG Base Excess Sodium Potassium Chloride Carbon Dioxide Anion Gap BUN Creatinine Estim Creat Clear Calc Estimated GFR POC Glucose 105 104 Random Glucose Calcium Phosphorus Magnesium B-Natriuretic Peptide Urine Color Yellow Urine Appearance Turbid Urine pH 6.5 Ur Specific [place] 1.010 Urine Protein Negative Urine Glucose (UA) Negative Urine Ketones Negative Urine Blood Negative Urine Nitrite Negative Ur Leukocyte Esterase Negative Respiratory Panel [place] Adenovirus (Rapid PCR) B.pert (TEM-PCR) B.parapertussis DNA PCR C. pneumoniae DNA (PCR) Coronavirus OC43 (PCR) Coronavirus HKU1 (PCR) Coronavirus 229E (PCR) Coronavirus NL63 (PCR) Human Metapneumovir PCR Influenza A (RT-PCR) Influenza B (RT-PCR) M. pneumoniae (PCR) Parainfluenza 1 (PCR) Parainfluenza 2 (PCR) Parainfluenza 3 (PCR) Parainfluenza 4 (PCR) RSV (PCR) Entero/Rhino (PCR) SARS-CoV-2 RNA (RT-PCR) 11/03/23 11/03/23 11:41 16:19 WBC RBC Hgb Hct MCV MCH MCHC RDW Plt Count MPV Immature Gran % (Auto) Neut % (Auto) Lymph % (Auto) [place] % (Auto) Eos % (Auto) Baso % (Auto) Lymph # (Auto) [place] # (Auto) Eos # (Auto) Baso # (Auto) Abs Immat Gran (auto) Absolute Neuts (auto) Absolute Nucleated RBC Nucleated RBC % (auto) O2 Saturation 92.0 ABG pH at Pt Temp 7.39 ABG pCO2 at Pt Temp 85 H* ABG pO2 at Pt Temp 66 L ABG HCO3 51 H ABG Base Excess (Actual) 21.6 VBG pH VBG pCO2 VBG pO2 VBG HCO3 VBG O2 Saturation VBG Base Excess Sodium Potassium Chloride Carbon Dioxide Anion Gap BUN Creatinine Estim Creat Clear Calc Estimated GFR POC Glucose 86 Random Glucose Calcium Phosphorus Magnesium B-Natriuretic Peptide Urine Color Urine Appearance Urine pH Ur Specific [place] Urine Protein Urine Glucose (UA) Urine Ketones Urine Blood Urine Nitrite Ur Leukocyte Esterase Respiratory Panel [place] Adenovirus (Rapid PCR) B.pert (TEM-PCR) B.parapertussis DNA PCR C. pneumoniae DNA (PCR) Coronavirus OC43 (PCR) Coronavirus HKU1 (PCR) Coronavirus 229E (PCR) Coronavirus NL63 (PCR) Human Metapneumovir PCR Influenza A (RT-PCR) Influenza B (RT-PCR) M. pneumoniae (PCR) Parainfluenza 1 (PCR) Parainfluenza 2 (PCR) Parainfluenza 3 (PCR) Parainfluenza 4 (PCR) RSV (PCR) Entero/Rhino (PCR) SARS-CoV-2 RNA (RT-PCR) Microbiology Microbiology Results: Microbiology 11/01/23 23:48 Blood - Venous Blood Culture - Preliminary No growth after 24 hours. 11/01/23 23:48 Blood - Venous Blood Culture - Preliminary No growth after 24 hours. Progress Note: A&P Assessment and plan (1) Hypertensive cardiovascular disease: Status: Acute (2) Acute hypoxic on chronic hypercapnic respiratory failure: Status: Acute (3) Acute on chronic respiratory failure with hypoxemia: Status: Acute (4) Abdominal pain: Status: Acute (5) Diabetes mellitus: Status: Acute (6) Obesity hypoventilation syndrome: Status: Acute (7) NICO (obstructive sleep apnea): Status: Acute (8) Dyspnea on exertion: Status: Acute Plan Plan is for short breaks on nasal high-flow to allow her some clear liquids and then hopefully restore BiPAP for the night Quality Stroke Does the patient have a stroke diagnosis?: No VTE Prior VTE?: No VTE Risk Level:: Medical - moderate - high VTE Device Contraindication: Treatment Not Indicated VTE Drug Contraindication: N/A - Med Ordered
[2023-11-03 16:44] LABS: ABG Base Excess 18.1 mmol/L; ABG HCO3 46 mmol/L (22-26); ABG pCO2 76 mmHg (32-45); ABG pH 7.39 (7.35-7.45); ABG pO2 90 mmHg (83-108)
[2023-11-03] MEDS: methylPREDNISolone Sod Succ 125 MG/2 ML VIAL 60 MG IVPUSH ×2 (17:07→22:23)
[2023-11-03 17:35] LABS: Rheumatoid Factor < 13.0 IU/mL (<15.0)
[2023-11-03] MEDS: Acetaminophen 325 MG TABLET 650 MG PO (20:36)
[2023-11-03] MEDS: Pravastatin Sodium 40 MG TABLET PO (20:36)
[2023-11-03 20:39] LABS: ABG Refer to POC result
[2023-11-03 20:42] LABS: Glucose, Whole Blood 138 mg/dL (60-115)
[2023-11-04] VITALS (31 sets, daily range): BP systolic 108–148; BP diastolic 43–89; PULSE 60–79; RESP 13–34; TEMP 36.1–36.9; O2SAT 91–100; BMI 45.0
[2023-11-04 04:47] LABS: MANUAL DIFF FLAG NO
[2023-11-04 04:48] LABS: Basophils Percent Auto 0.2 % (0-2); Hematocrit 36.7 % (37.0-47.0); Hemoglobin 11.3 g/dl (12.0-16.0); Imm Gran Abs Auto 0.02 X10*3/uL (0.00-0.03); Imm Gran Pct Auto 0.4 % (0.0-0.4); Lymphocytes Absolute Auto 0.6 X10*3/uL (1.2-4.9); Lymphocytes Percent Auto 12.3 % (20-40); Mean Corpuscular HGB Conc 30.8 g/dl (31.0-35.0); Mean Corpuscular Hemoglobin 30.1 pg (27.0-33.0); Mean Corpuscular Volume 97.9 fL (80.0-98.0); Mean Platelet Volume 10.2 fL (9.4-12.3); Monocytes Absolute Auto 0.1 X10*3/uL (0.1-1.2); Neutrophils Absolute Auto 4.4 x10*3/uL (2.0-8.3); Neutrophils Percent Auto 86.1 % (45-73); Platelet Count 156 X10*3/uL (160-400); Red Blood Count 3.75 X10*6/uL (4.20-5.50); Red Cell Distribution Width 12.4 % (11.0-16.0); White Blood Count 5.1 X10*3/uL (4.8-10.8)
[2023-11-04 04:51] LABS: VBG Base Excess 14.9 mmol/L; VBG HCO3 43 mmol/L (22-26); VBG pCO2 73 mmHg; VBG pH 7.38 (7.32-7.43); VBG pO2 52 mmHg
[2023-11-04 04:58] LABS: Venous Blood Gas Refer to POC result
[2023-11-04 05:06] LABS: Albumin Level 3.5 g/dL (3.5-5.0); Anion Gap 10 (12-20); Blood Urea Nitrogen 15 mg/dL (9-16); Calcium 8.5 mg/dL (8.4-10.2); Carbon Dioxide 42 mmol/L (22-29); Chloride 89 mmol/L (96-108); Creatinine Clr Calc Pharmacy 72.4; Estimated Glomerular Filt Rate > 60; Glucose Random 183 mg/dL (60-115); Magnesium 1.7 mg/dL (1.6-2.6); Phosphorus 3.9 mg/dL (2.7-4.5); Potassium 4.3 mmol/L (3.3-5.1); Sodium 137 mmol/L (135-145)
[2023-11-04] MEDS: Omeprazole 20 MG CAPSULE.DR PO (05:14)
[2023-11-04] MEDS: methylPREDNISolone Sod Succ 125 MG/2 ML VIAL 60 MG IVPUSH ×4 (05:15→22:28)
[2023-11-04] MEDS: Acetaminophen 325 MG TABLET 650 MG PO ×2 (05:19→21:36)
[2023-11-04 05:24] LABS: Erythrocyte Sedimentation Rate 44 MM/HR (0-20)
--- NOTE | 2023-11-04 06:41 | PC.NURSE ---
ASSUMED CARE OF PT AT 2300 AT WHICH TIME PT WAS RESTING COMFORTABLY AND MOSTLY SLEEPING BUT WOULD WAKE UP AND FOLLOW COMMANDS APPROPRIATELY. BIPAP FACEMASK WAS ON AND PT TOLERATING IT WELL. NO RESP DISTRESS. O2 SATS MID 90'S ON 36% O2. PT WOKE AT 0430 AND REQUESTING A BREAK FROM BIPAP. HIGH FLOW NC APPLIED 40L/40%. PT ENCOURAGED TO C&DB. TAKING CLEAR LIQUIDS WELL. VITAL SIGNS STABLE. MONITOR SHOWS NSR, RATE 60-70'S, NO ECTOPY. U/O 500ML VIA PUREWICK. MALKA CARE GIVEN AND PUREWICK CHANGED THIS MORNING. PT ORIENTED TO PLACE AND DATE. ENGLISH SPEAKING ONLY.
[2023-11-04 07:40] LABS: Glucose, Whole Blood 161 mg/dL (60-115)
[2023-11-04] MEDS: Furosemide 40 MG/4 ML VIAL IVPUSH (08:31)
[2023-11-04] MEDS: Doxycycline Hyclate 100 MG in 0.9 % Sodium Chloride 250 ML 166.67 MG IV ×2 (08:31→20:06)
[2023-11-04] MEDS: 0.9 % Sodium Chloride Flush 3 ML SYRINGE IVFLUSH ×3 (08:32→22:29)
[2023-11-04] MEDS: Insulin Lispro 100 UNIT/ML 3 ML VIAL SUBCUT ×4 (09:00→21:34)
[2023-11-04] MEDS: Enoxaparin Sodium 40 MG/0.4 ML SYRINGE SUBCUT (09:01)
[2023-11-04] MEDS: Famotidine 20 MG TABLET PO ×2 (09:02→20:05)
[2023-11-04] MEDS: Spironolactone 25 MG TABLET PO (09:02)
[2023-11-04] MEDS: Losartan Potassium 50 MG TABLET 100 MG PO (09:02)
--- NOTE | 2023-11-04 11:25 | P.CONPL_ITS ---
History of Present Illness History of Present Illness Consult date: 11/04/23 Chief complaint: Dyspnea Narrative: This is an inpatient pulmonary consultation. This is a 78-year-old female with pertinent history of [id number] diabetes mellitus, COPD not on home oxygen, NICO on CPAP, gastroesophageal reflux disease, cirrhosis of the liver who presents to the emergency department for evaluation of dyspnea and abdominal discomfort. Patient states her symptoms have been ongoing for the last 1 month. The symptoms have been progressive and the dyspnea has worsened. She uses CPAP at bedtime. Does not use supplemental oxygen during day. Also admits orthopnea and lower extremity leg swelling. Patient states her abdominal discomfort worsened in the last couple of days and had an episode of diarrhea. No fever, chills, chest discomfort, palpitations, changes in urinary habits. In the emergency department, imaging with pulmonary edema and BNP found to be elevated. Patient was placed on supplemental oxygen and initiated on IV diuresis. While in the hospital the patient developed further confusion was noted to develop acute on chronic hypercarbic respiratory failure. She was placed on BiPAP and transferred to the unit. She is currently titrating down on high-flow. At time she has still a little groggy and confused. Her CO2 is back to the 70s which is still high although appears to be her baseline. The patient did undergo pulmonary function studies back in 2021 which I personally reviewed demonstrating an FVC of only 0.96 L which is 36% predicted and a total lung capacity 52% predicted. The patient will benefit from a noninvasive ventilator upon discharge. The patient already tried and failed CPAP. Juancarlos personally reviewed her CT scan of the chest demonstrating the areas of ground-glass opacities. Appeared to be throughout. In addition to that does have some lymphadenopathy and stable pulmonary nodules. Review of Systems 2 Constitutional: Constitutional: Reports fatigue and Reports lethargy Cardiovascular: Cardiovascular: Reports dyspnea on exertion and Reports orthopnea Respiratory: Respiratory: Reports dyspnea on exertion Gastrointestinal: Gastrointestinal: Reports abdominal pain and Reports loose stools Genitourinary: Genitourinary: Reports no additional female genitourinary complaints Endocrine: Endocrine: Reports fatigue [facility] Past Medical History Medical History (Updated 11/04/23 @ 11:32 by Josue Somers MD) Pulmonary hypertension Hypertensive cardiovascular disease Acute hypoxic on chronic hypercapnic respiratory failure Acute on chronic respiratory failure with hypoxemia Obesity hypoventilation syndrome NICO (obstructive sleep apnea) GERD (gastroesophageal reflux disease) Hypertension Diabetes mellitus COPD (chronic obstructive pulmonary disease) Family History Family History Mother Diabetes Surgical History Surgical History S/P laparoscopic cholecystectomy (07/14/21) Social History Social History Household Members: Family Housing: Unknown / Unable to assess Do you presently have visiting nurse or other home services: Yes Patient Tobacco Use Status: Former Tobacco user Tobacco use type: Cigarette Years Smoked: 20 service: No Current occupational status: unemployed and disabled Meds Allergies Allergy/AdvReac Type Severity Reaction Status Date / Time No Known Allergies Allergy Verified 11/01/23 23:08 [No Known Allergies*] Active Medications: Current Medications Acetaminophen (Acetaminophen 325 Mg Tablet) 650 mg PO Q6H PRN PRN Reason: Pain, Mild (Pain Scale 1-3) Last Admin: 11/04/23 05:19 Dose: 650 mg Albuterol Sulfate (Albuterol Sulfate 90 Mcg 8 Gm Inhaler) 2 puff INHALE Q6H PRN PRN Reason: Wheezing Carvedilol (Carvedilol 12.5 Mg Tablet) 12.5 mg PO BID [facility]; Protocol Last Admin: 11/03/23 20:36 Dose: 12.5 mg Dextrose (Dextrose 50 % 25 Gm/50 Ml Syringe) 25 gm IVPUSH Q15M PRN; Protocol PRN Reason: per Hypoglycemia Standing Ord. Enoxaparin Sodium (Enoxaparin Sodium 40 Mg/0.4 Ml Syringe) 40 mg SUBCUT DAILY [facility] Last Admin: 11/04/23 09:01 Dose: 40 mg Ergocalciferol (Ergocalciferol (Vitamin D2) 1,250 Mcg Capsule) 1,250 mcg PO MO TIMOTHY Famotidine (Famotidine 20 Mg Tablet) 20 mg PO BID [facility] Last Admin: 11/04/23 09:02 Dose: 20 mg Furosemide (Furosemide 40 Mg/4 Ml Vial) 40 mg IVPUSH DAILY [facility]; Protocol Last Admin: 11/04/23 08:31 Dose: 40 mg Glucose (Glucose Gel 15 Gm Gel..Gram.) 15 gm PO Q15M PRN; Protocol PRN Reason: per Hypoglycemia Standing Ord. Doxycycline Hyclate 100 mg/ (Sodium Chloride) 250 mls @ 166.67 mls/hr IV Q12H [facility] Last Admin: 11/04/23 08:31 Dose: 166.67 mls/hr Levofloxacin (Levaquin) 500 mg in 100 mls @ 100 mls/hr IV Q24H [facility] Last Infusion: 11/03/23 12:35 Dose: Infused Insulin Human Lispro (Insulin Lispro 100 Unit/Ml 3 Ml Vial) 0 unit SUBCUT QIDACHS [facility]; Protocol Last Admin: 11/04/23 09:00 Dose: 2 unit Losartan Potassium (Losartan Potassium 50 Mg Tablet) 100 mg PO DAILY [facility]; Protocol Last Admin: 11/04/23 09:02 Dose: 100 mg Melatonin (Melatonin 3 Mg Tablet) 6 mg PO BEDTIME PRN PRN Reason: Insomnia Methylprednisolone Sodium Succinate (Methylprednisolone Sod Succ 125 Mg/2 Ml Vial) 60 mg IVPUSH Q6H [facility] Last Admin: 11/04/23 10:10 Dose: 60 mg Omeprazole (Omeprazole 20 Mg Capsule.Dr) 20 mg PO DAILY@0600 [facility] Last Admin: 11/04/23 05:14 Dose: 20 mg Pravastatin Sodium (Pravastatin Sodium 40 Mg Tablet) 40 mg PO BEDTIME [facility] Last Admin: 11/03/23 20:36 Dose: 40 mg Sodium Chloride (0.9 % Sodium Chloride Flush 3 Ml Syringe) 3 ml IVFLUSH QSHIFT [facility] Last Admin: 11/04/23 08:32 Dose: 3 ml Spironolactone (Spironolactone 25 Mg Tablet) 25 mg PO DAILY [facility]; Protocol Last Admin: 11/04/23 09:02 Dose: 25 mg Home Medications Medication Instructions Recorded Confirmed Last Taken Type isosorbide mononitrate 20 mg tablet 20 mg PO DAILY 07/12/21 11/02/23 11/01/23 History losartan 100 mg tablet 1 tab PO QAM 07/12/21 11/02/23 11/01/23 History lancets 33 gauge (TRUEplus Lancets) #100 ea 09/20/21 02/19/22 History sitagliptin phos 50 mg-metformin 1 tab PO DAILY 02/20/22 11/02/23 11/01/23 History ER 1,000 mg tablet,extend rel 24h mp (Janumet XR) spironolactone 25 mg tablet 25 mg PO QAM 11/15/22 11/02/23 11/01/23 History furosemide 40 mg tablet 40 mg PO QAM 05/11/23 11/02/23 11/01/23 History albuterol sulfate 90 mcg/actuation 2 puff inhalation Q6H PRN Wheezing 11/02/23 11/02/23 11/01/23 History aerosol inhaler carvedilol 25 mg tablet 25 mg PO BID 11/02/23 11/02/23 11/01/23 History ergocalciferol (vitamin D2) 1,250 1,250 mcg PO MO 11/02/23 11/02/23 11/01/23 History mcg (50,000 unit) capsule famotidine 20 mg tablet 20 mg PO BID 11/02/23 11/02/23 11/01/23 History hydralazine 25 mg tablet 25 mg PO TID 11/02/23 11/02/23 11/01/23 History pantoprazole 40 mg tablet,delayed 40 mg PO QAM 11/02/23 11/02/23 11/01/23 History release pravastatin 40 mg tablet 40 mg PO QPM 11/02/23 11/02/23 11/01/23 History Physical Exam 2 Vital Signs: Vital Signs: Last Vital Signs Temp 98.5 F 11/04/23 08:00 Pulse 72 11/04/23 11:00 Resp 25 H 11/04/23 11:00 BP 128/61 11/04/23 10:00 Pulse Ox 98 11/04/23 11:00 O2 Del Method High Flow Nasal C annula 11/04/23 11:00 O2 Flow Rate 40 11/04/23 11:00 FiO2 40 11/04/23 11:00 BMI result Body Mass Index 45.0 Const: General: no acute distress and alert Nutritional Appearance: obese Orientation/consciousness: Other orientation findings ( oriented) HEENT: Head: Yes atraumatic Eyes: Sclerae: sclerae normal Neck: Neck: Yes supple Lymphatic: no lymphadenopathy noted Chest: Chest palpation & inspection: normal inspection of the chest Resp: Effort & Inspection: normal respiratory effort Auscultation: rales and diminished lung sounds Cardio: Rate: regular rate Rhythm: regular rhythm Heart sounds: no gallops, no murmurs and no rubs Skin: General skin exam: no rashes or lesions noted Extrem: General: No clubbing, No cyanosis and Yes edema Results Laboratory Findings 11/04/23 04:40 11/04/23 04:40 ABG, PT/INR, D-dimer: PT/INR, D-dimer PT 12.4 SEC (11.1-13.3) 11/01/23 23:44 INR 1.0 (0.9-1.1) 11/01/23 23:44 Abnormal lab findings: Abnormal Labs 11/01/23 11/01/23 11/02/23 23:44 23:49 04:19 RBC 3.88 L Hgb 11.5 L Hct MCV 98.1 H MCHC 30.5 L Plt Count Neut % (Auto) Lymph % (Auto) 18.5 L [place] % (Auto) Lymph # (Auto) ESR ABG pH at Pt Temp ABG pCO2 at Pt Temp ABG pO2 at Pt Temp ABG HCO3 VBG HCO3 44 H Chloride 94 L 93 L Carbon Dioxide 39 H 37 H Anion Gap 11 L POC Glucose Random Glucose 238 H 182 H B-Natriuretic Peptide 498 H 11/02/23 11/02/23 11/02/23 07:34 12:27 15:55 RBC Hgb Hct MCV MCHC Plt Count Neut % (Auto) Lymph % (Auto) [place] % (Auto) Lymph # (Auto) ESR ABG pH at Pt Temp ABG pCO2 at Pt Temp ABG pO2 at Pt Temp ABG HCO3 VBG HCO3 Chloride Carbon Dioxide Anion Gap POC Glucose 180 H 189 H 184 H Random Glucose B-Natriuretic Peptide 11/02/23 11/02/23 11/02/23 16:14 17:57 18:27 RBC Hgb Hct MCV MCHC Plt Count Neut % (Auto) Lymph % (Auto) [place] % (Auto) Lymph # (Auto) ESR ABG pH at Pt Temp 7.23 L 7.23 L ABG pCO2 at Pt Temp 104 H* 108 H* ABG pO2 at Pt Temp ABG HCO3 44 H 46 H VBG HCO3 Chloride Carbon Dioxide Anion Gap POC Glucose 193 H Random Glucose B-Natriuretic Peptide 11/02/23 11/03/23 11/03/23 21:40 04:23 04:24 RBC 3.82 L Hgb 11.5 L Hct MCV 101.6 H MCHC 29.6 L Plt Count Neut % (Auto) Lymph % (Auto) 19.0 L [place] % (Auto) 15.1 H Lymph # (Auto) ESR ABG pH at Pt Temp ABG pCO2 at Pt Temp ABG pO2 at Pt Temp ABG HCO3 VBG HCO3 46 H 46 H Chloride 92 L Carbon Dioxide 37 H Anion Gap POC Glucose Random Glucose B-Natriuretic Peptide 223 H 11/03/23 11/03/23 11/03/23 11:41 16:36 20:37 RBC Hgb Hct MCV MCHC Plt Count Neut % (Auto) Lymph % (Auto) [place] % (Auto) Lymph # (Auto) ESR ABG pH at Pt Temp ABG pCO2 at Pt Temp 85 H* 76 H* ABG pO2 at Pt Temp 66 L ABG HCO3 51 H 46 H VBG HCO3 Chloride Carbon Dioxide Anion Gap POC Glucose 138 H Random Glucose B-Natriuretic Peptide 11/04/23 11/04/23 11/04/23 04:40 04:45 07:33 RBC 3.75 L Hgb 11.3 L Hct 36.7 L MCV MCHC 30.8 L Plt Count 156 L Neut % (Auto) 86.1 H Lymph % (Auto) 12.3 L [place] % (Auto) 1.0 L Lymph # (Auto) 0.6 L ESR 44 H ABG pH at Pt Temp ABG pCO2 at Pt Temp ABG pO2 at Pt Temp ABG HCO3 VBG HCO3 43 H Chloride 89 L Carbon Dioxide 42 H* Anion Gap 10 L POC Glucose 161 H Random Glucose 183 H B-Natriuretic Peptide Microbiology: Microbiology 11/01/23 23:48 Blood - Venous Blood Culture - Preliminary No growth after 48 hours. 11/01/23 23:48 Blood - Venous Blood Culture - Preliminary No growth after 48 hours. Assessment and Plan (1) Acute hypoxic on chronic hypercapnic respiratory failure: Status: Acute (2) Acute on chronic respiratory failure with hypoxemia: Status: Acute (3) CHF (congestive heart failure): Qualifiers: Heart failure chronicity: acute Heart failure type: unspecified Qualified Code(s): I50.9 - Heart failure, unspecified Status: Acute (4) NICO (obstructive sleep apnea): Status: Acute (5) Restrictive ventilatory defect: Status: Acute (6) Lymphadenopathy: Status: Acute (7) Pulmonary hypertension: Status: Acute Plan The patient appears to present with a progressive worsening of her breathing. Indeed appears to have a component of volume overload status. On her echo does also demonstrate some degree of pulmonary hypertension bringing up the question of hyperventilation syndrome and pulmonary hypertension former pinkwikian syndrome. May have a component of pneumonitis, but I suspect that is is more of her increase hydrostatic pressure. She is also at risk of pulmonary veno- occlussive disease which could result in a pulmonary edema process. REC; Diuresis as tolerated Will benefit from a non invasive ventilator/ AVAPS to use in order to help her with her hypercarbia. Will need to work with her DME to make the change from CPAP which she failed. Continue solumedrol, likely ok to change to PO HF/BIPAP for respiratory therapy monitor bloodgases Awaiting bloodwork to assess the possibility of pneumonitis/lymphadenopathy. Sarcoid would not result in an acute decompensation, however. No evidence of active CTD related disease on her exam. Procedures Date of Service Date of Service: 11/04/23
[2023-11-04] MEDS: carvediloL 12.5 MG TABLET PO ×2 (11:27→20:05)
[2023-11-04 11:32] LABS: Glucose, Whole Blood 259 mg/dL (60-115)
[2023-11-04] MEDS: levoFLOXacin/D5W 500 MG/100 ML PIGGYBACK 100 MG IV (14:06)
[2023-11-04 14:50] LABS: VBG Base Excess 14.9 mmol/L; VBG HCO3 44 mmol/L (22-26); VBG pCO2 77 mmHg; VBG pH 7.36 (7.32-7.43); VBG pO2 68 mmHg
[2023-11-04 16:35] LABS: Glucose, Whole Blood 320 mg/dL (60-115)
--- NOTE | 2023-11-04 17:44 | P.PNCC_ITS ---
Subjective Subjective Date of Service: 11/04/23 Interval History: 78-year-old female with morbid obesity and type 2 diabetes with history of obstructive sleep apnea and obesity/hypoventilation syndrome who apparently has been failing on a CPAP device it at home with progressive dyspnea no history of febrile illness no significant productive cough comes in with progressive altered mental status noted to be lethargic with pCO2 acutely climbing 2/100 and presentation of acute on chronic hypercarbic and hypoxic respiratory failure and has been gradually improving over the last 48 hours with predominant use of BiPAP in the AVAPS mode and currently is now spending increasing amounts of time during the day able to eat on nasal high-flow at 40 L and last blood gas shows a pH of 7.36 and pCO2 of 77 and again with with her normal chronic pCO2 at 65-70 so she is in significantly improving and was seen today by Pulmonary who will arrange for her to have BiPAP in the AVAPS mode prescribed for home use No evidence of an acute and infected that we could see and she remains on her bronchodilator therapy as well as steroids for medical treatment and I utilized the BiPAP device to allow her to diurese as a pulmonary vaso dilator Critical Care Time (minutes): 35 Physical Exam 2 Vital Signs: Vital Signs: Last Vital Signs Temp 97.4 F 11/04/23 16:00 Pulse 70 11/04/23 17:00 Resp 22 H 11/04/23 17:00 BP 132/63 11/04/23 17:00 Pulse Ox 99 11/04/23 17:00 O2 Del Method High Flow Nasal C annula 11/04/23 17:00 O2 Flow Rate 40 11/04/23 17:00 FiO2 40 11/04/23 17:00 BMI result Body Mass Index 45.0 Blood pressure 130/60 with a mean of 80 oxygen saturations at 100% heart rate 72 respirations are only 13 Abdomen benign no again a megaly and tolerating diet Lungs without adventitious signs but diminished bilateral breath sounds Bedside echo with normal LV and RV function just minimal concentric hypertrophy Skin clear with no acrocyanosis and no edema Objective Data Labs 11/04/23 04:40 11/04/23 04:40 Labs: Laboratory Results - last 24 hr 11/03/23 11/04/23 11/04/23 20:37 04:40 04:45 WBC 5.1 RBC 3.75 L Hgb 11.3 L Hct 36.7 L MCV 97.9 MCH 30.1 MCHC 30.8 L RDW 12.4 Plt Count 156 L MPV 10.2 Immature Gran % (Auto) 0.4 Neut % (Auto) 86.1 H Lymph % (Auto) 12.3 L [place] % (Auto) 1.0 L Eos % (Auto) 0.0 Baso % (Auto) 0.2 Lymph # (Auto) 0.6 L [place] # (Auto) 0.1 Eos # (Auto) 0.0 Baso # (Auto) 0.0 Abs Immat Gran (auto) 0.02 Absolute Neuts (auto) 4.4 Absolute Nucleated RBC 0.000 Nucleated RBC % (auto) 0.0 ESR 44 H VBG pH 7.38 VBG pCO2 73 VBG pO2 52 VBG HCO3 43 H VBG O2 Saturation 83.0 VBG Base Excess 14.9 Sodium 137 Potassium 4.3 Chloride 89 L Carbon Dioxide 42 H* Anion Gap 10 L BUN 15 Creatinine 0.78 Estim Creat Clear Calc 72.4 Estimated GFR > 60 POC Glucose 138 H Random Glucose 183 H Calcium 8.5 Phosphorus 3.9 Magnesium 1.7 Albumin 3.5 11/04/23 11/04/23 11/04/23 07:33 11:26 14:43 WBC RBC Hgb Hct MCV MCH MCHC RDW Plt Count MPV Immature Gran % (Auto) Neut % (Auto) Lymph % (Auto) [place] % (Auto) Eos % (Auto) Baso % (Auto) Lymph # (Auto) [place] # (Auto) Eos # (Auto) Baso # (Auto) Abs Immat Gran (auto) Absolute Neuts (auto) Absolute Nucleated RBC Nucleated RBC % (auto) ESR VBG pH 7.36 VBG pCO2 77 VBG pO2 68 VBG HCO3 44 H VBG O2 Saturation 93.0 VBG Base Excess 14.9 Sodium Potassium Chloride Carbon Dioxide Anion Gap BUN Creatinine Estim Creat Clear Calc Estimated GFR POC Glucose 161 H 259 H Random Glucose Calcium Phosphorus Magnesium Albumin 11/04/23 16:31 WBC RBC Hgb Hct MCV MCH MCHC RDW Plt Count MPV Immature Gran % (Auto) Neut % (Auto) Lymph % (Auto) [place] % (Auto) Eos % (Auto) Baso % (Auto) Lymph # (Auto) [place] # (Auto) Eos # (Auto) Baso # (Auto) Abs Immat Gran (auto) Absolute Neuts (auto) Absolute Nucleated RBC Nucleated RBC % (auto) ESR VBG pH VBG pCO2 VBG pO2 VBG HCO3 VBG O2 Saturation VBG Base Excess Sodium Potassium Chloride Carbon Dioxide Anion Gap BUN Creatinine Estim Creat Clear Calc Estimated GFR POC Glucose 320 H Random Glucose Calcium Phosphorus Magnesium Albumin Microbiology Microbiology Results: Microbiology 11/01/23 23:48 Blood - Venous Blood Culture - Preliminary No growth after 48 hours. 11/01/23 23:48 Blood - Venous Blood Culture - Preliminary No growth after 48 hours. Progress Note: A&P Assessment and plan (1) Pulmonary hypertension: Status: Acute (2) Lymphadenopathy: Status: Acute (3) Hypertensive cardiovascular disease: Status: Acute (4) Acute hypoxic on chronic hypercapnic respiratory failure: Status: Acute (5) Acute on chronic respiratory failure with hypoxemia: Status: Acute (6) Hypoxia: Status: Acute (7) CHF (congestive heart failure): Status: Acute (8) Abdominal pain: Status: Acute (9) Bursitis of right hip: Status: Acute (10) Diabetes mellitus: Status: Acute (11) Osteoarthritis of right hip: Status: Acute (12) Obesity hypoventilation syndrome: Status: Acute (13) NICO (obstructive sleep apnea): Status: Acute (14) Restrictive ventilatory defect: Status: Acute (15) Dyspnea on exertion: Status: Acute (16) Varicose veins of right lower extremity with inflammation: Status: Acute Plan A plan therefore is to let her have dinner and then for the evening a back on BiPAP and also a potential transfer because we have a stable mechanism of support adeno to the telemetry unit to remain on steroids to be followed by Pulmonary and to go home with prescribed BiPAP in the AVAPS mode Quality Stroke Does the patient have a stroke diagnosis?: No VTE Prior VTE?: No VTE Risk Level:: Medical - moderate - high VTE Device Contraindication: Treatment Not Indicated VTE Drug Contraindication: N/A - Med Ordered
[2023-11-04] MEDS: Pravastatin Sodium 40 MG TABLET PO (20:05)
[2023-11-04 20:48] LABS: Glucose, Whole Blood 279 mg/dL (60-115)
[2023-11-04 22:52] LABS: Venous Blood Gas Refer to POC result
[2023-11-05] VITALS (19 sets, daily range): BP systolic 106–148; BP diastolic 43–86; PULSE 56–85; RESP 15–24; TEMP 36.1–36.9; O2SAT 90–100; BMI 43.9
[2023-11-05] MEDS: Acetaminophen 325 MG TABLET 650 MG PO (02:12)
[2023-11-05 05:14] LABS: VBG Base Excess 19.6 mmol/L; VBG HCO3 46 mmol/L (22-26); VBG pCO2 63 mmHg; VBG pH 7.47 (7.32-7.43); VBG pO2 71 mmHg
[2023-11-05 05:16] LABS: Venous Blood Gas Refer to POC result
[2023-11-05 05:43] LABS: MANUAL DIFF FLAG NO
[2023-11-05 05:47] LABS: Basophils Percent Auto 0.1 % (0-2); Hematocrit 37.3 % (37.0-47.0); Hemoglobin 11.2 g/dl (12.0-16.0); Imm Gran Abs Auto 0.06 X10*3/uL (0.00-0.03); Imm Gran Pct Auto 0.6 % (0.0-0.4); Lymphocytes Absolute Auto 0.7 X10*3/uL (1.2-4.9); Lymphocytes Percent Auto 7.6 % (20-40); Mean Corpuscular Hemoglobin 29.7 pg (27.0-33.0); Mean Corpuscular Volume 98.9 fL (80.0-98.0); Mean Platelet Volume 10.9 fL (9.4-12.3); Monocytes Absolute Auto 0.5 X10*3/uL (0.1-1.2); Monocytes Percent Auto 5.6 % (2-11); Neutrophils Absolute Auto 8.1 x10*3/uL (2.0-8.3); Neutrophils Percent Auto 86.1 % (45-73); Platelet Count 163 X10*3/uL (160-400); Red Blood Count 3.77 X10*6/uL (4.20-5.50); Red Cell Distribution Width 12.2 % (11.0-16.0); White Blood Count 9.5 X10*3/uL (4.8-10.8)
[2023-11-05] MEDS: methylPREDNISolone Sod Succ 125 MG/2 ML VIAL 60 MG IVPUSH ×2 (05:47→11:40)
[2023-11-05] MEDS: Omeprazole 20 MG CAPSULE.DR PO (05:47)
[2023-11-05 06:06] LABS: Albumin Level 3.5 g/dL (3.5-5.0); Anion Gap 12 (12-20); Blood Urea Nitrogen 31 mg/dL (9-16); Calcium 8.4 mg/dL (8.4-10.2); Carbon Dioxide 39 mmol/L (22-29); Chloride 88 mmol/L (96-108); Estimated Glomerular Filt Rate 45; Glucose Random 328 mg/dL (60-115); Magnesium 1.9 mg/dL (1.6-2.6); Phosphorus 2.8 mg/dL (2.7-4.5); Sodium 134 mmol/L (135-145)
--- NOTE | 2023-11-05 06:44 | PC.NURSE ---
Assumed care of patient at 23:15. Pt is Green[place]ic speaking only. Tire Manager used at bedside. 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 Pt reoriented. SB-NSR upper 50's to 60's on tele. Pt denies chest pain. +pp/cms. Pt c/o 6/10 pain in her left leg. Pt states she always has that pain at home and reports it is due to arthritis and takes tylenol at home for this. Patient given prn tylenol early per GAS APPLIANCE INSTALLER as well as heat packs given and assisted with repositioning with +effect. Lungs dim throughout. Tolerating bipap during sleep well, spo2 maintained mid to upper 90's; HFNC 40L/50% this morning per pt requesting a break from the bipap mask and wakeful. Pt denies sob. Breathing is even and unlabored without distress. Scheduled solumedrol given. Purewick in place for incontinence, patent of cyu. Pt encouraged to reposition for skin integrity and assisted with. Bed alarm on and safety measures in place.? Orders for transfer to [facility] placed at 06:00 this morning per GAS APPLIANCE INSTALLER. Handoff report given to oncoming RN at 06:45.
--- NOTE | 2023-11-05 07:16 | P.PNIM_ITS ---
Subjective Subjective Date of Service: 11/05/23 Interval History: Patient transferred from ICU after being treated for acute on chronic hypercarbic/hypoxic respiratory failure Patient denies symptoms of chest pain, no shortness of breath, no cough, no fevers, no chills tolerating diet, no acute issues overnight. Review of Systems All other system reviewed and negative. Physical Exam 2 Vital Signs: Vital Signs: Last Vital Signs Temp 97.0 F 11/05/23 03:00 Pulse 59 11/05/23 06:00 Resp 16 11/05/23 06:00 BP 135/66 11/05/23 06:00 Pulse Ox 100 11/05/23 06:00 O2 Del Method High Flow Nasal C annula 11/05/23 06:00 O2 Flow Rate 40 11/05/23 06:00 FiO2 50 11/05/23 06:00 BMI result Body Mass Index 43.9 Const: Other: Gen: Awake alert x3 in no acute distress HEENT: sclera anicteric, moist mucus membranes Neck: supple, JVD Lungs: Clear to auscultation, no wheeze, no crackles Heart: regular rate and rhythm, no murmurs, obese Abd: soft, non-tender, non-distended Ext: no edema Skin: warm/well-perfused Neuro: no focal findings Psych: appropriate affect Objective Data Active Medications Acetaminophen (Acetaminophen 325 Mg Tablet) 650 mg PO Q6H PRN PRN Reason: Pain, Mild (Pain Scale 1-3) Last Admin: 11/05/23 02:12 Dose: 650 mg Documented By: MITA Albuterol Sulfate (Albuterol Sulfate 90 Mcg 8 Gm Inhaler) 2 puff INHALE Q6H PRN PRN Reason: Wheezing Carvedilol (Carvedilol 12.5 Mg Tablet) 12.5 mg PO BID [facility]; Protocol Last Admin: 11/04/23 20:05 Dose: 12.5 mg Documented By: FISH Dextrose (Dextrose 50 % 25 Gm/50 Ml Syringe) 25 gm IVPUSH Q15M PRN; Protocol PRN Reason: per Hypoglycemia Standing Ord. Enoxaparin Sodium (Enoxaparin Sodium 40 Mg/0.4 Ml Syringe) 40 mg SUBCUT DAILY [facility] Last Admin: 11/04/23 09:01 Dose: 40 mg Documented By: MAVIS Ergocalciferol (Ergocalciferol (Vitamin D2) 1,250 Mcg Capsule) 1,250 mcg PO MO [facility] Famotidine (Famotidine 20 Mg Tablet) 20 mg PO BID [facility] Last Admin: 11/04/23 20:05 Dose: 20 mg Documented By: FISH Furosemide (Furosemide 40 Mg/4 Ml Vial) 40 mg IVPUSH DAILY [facility]; Protocol Last Admin: 11/04/23 08:31 Dose: 40 mg Documented By: MAVIS Glucose (Glucose Gel 15 Gm Gel..Gram.) 15 gm PO Q15M PRN; Protocol PRN Reason: per Hypoglycemia Standing Ord. Doxycycline Hyclate 100 mg/ (Sodium Chloride) 250 mls @ 166.67 mls/hr IV Q12H [facility] Last Infusion: 11/04/23 21:59 Dose: Infused Documented By: FISH Levofloxacin (Levaquin) 500 mg in 100 mls @ 100 mls/hr IV Q24H [facility] Last Infusion: 11/04/23 15:10 Dose: Infused Documented By: MAVIS Insulin Human Lispro (Insulin Lispro 100 Unit/Ml 3 Ml Vial) 0 unit SUBCUT QIDACHS [facility]; Protocol Last Admin: 11/04/23 21:34 Dose: 6 unit Documented By: FISH Losartan Potassium (Losartan Potassium 50 Mg Tablet) 100 mg PO DAILY [facility]; Protocol Last Admin: 11/04/23 09:02 Dose: 100 mg Documented By: MAVIS Melatonin (Melatonin 3 Mg Tablet) 6 mg PO BEDTIME PRN PRN Reason: Insomnia Methylprednisolone Sodium Succinate (Methylprednisolone Sod Succ 125 Mg/2 Ml Vial) 60 mg IVPUSH Q6H [facility] Last Admin: 11/05/23 05:47 Dose: 60 mg Documented By: MITA Omeprazole (Omeprazole 20 Mg Capsule.) 20 mg PO DAILY@0600 [facility] Last Admin: 11/05/23 05:47 Dose: 20 mg Documented By: MITA Pravastatin Sodium (Pravastatin Sodium 40 Mg Tablet) 40 mg PO BEDTIME [facility] Last Admin: 11/04/23 20:05 Dose: 40 mg Documented By: FISH Sodium Chloride (0.9 % Sodium Chloride Flush 3 Ml Syringe) 3 ml IVFLUSH QSHIFT [facility] Last Admin: 11/04/23 22:29 Dose: 3 ml Documented By: FISH Spironolactone (Spironolactone 25 Mg Tablet) 25 mg PO DAILY [facility]; Protocol Last Admin: 11/04/23 09:02 Dose: 25 mg Documented By: MAVIS Labs 11/05/23 05:06 11/05/23 05:06 Labs: Laboratory Results - last 24 hr 11/04/23 11/04/23 11/04/23 07:33 11:26 14:43 MCV MCH MCHC RDW Plt Count MPV Immature Gran % (Auto) Neut % (Auto) Lymph % (Auto) [place] % (Auto) Eos % (Auto) Baso % (Auto) Lymph # (Auto) [place] # (Auto) Eos # (Auto) Baso # (Auto) Abs Immat Gran (auto) Absolute Neuts (auto) Absolute Nucleated RBC Nucleated RBC % (auto) VBG pH 7.36 VBG pCO2 77 VBG pO2 68 VBG HCO3 44 H VBG O2 Saturation 93.0 VBG Base Excess 14.9 Anion Gap Estim Creat Clear Calc Estimated GFR POC Glucose 161 H 259 H Random Glucose Calcium Phosphorus Magnesium Albumin 11/04/23 11/04/23 11/05/23 16:31 20:45 05:06 MCV 98.9 H MCH 29.7 MCHC 30.0 L RDW 12.2 Plt Count 163 MPV 10.9 Immature Gran % (Auto) 0.6 H Neut % (Auto) 86.1 H Lymph % (Auto) 7.6 L [place] % (Auto) 5.6 Eos % (Auto) 0.0 Baso % (Auto) 0.1 Lymph # (Auto) 0.7 L [place] # (Auto) 0.5 Eos # (Auto) 0.0 Baso # (Auto) 0.0 Abs Immat Gran (auto) 0.06 H Absolute Neuts (auto) 8.1 Absolute Nucleated RBC 0.000 Nucleated RBC % (auto) 0.0 VBG pH VBG pCO2 VBG pO2 VBG HCO3 VBG O2 Saturation VBG Base Excess Anion Gap 12 Estim Creat Clear Calc 49.0 Estimated GFR 45 POC Glucose 320 H 279 H Random Glucose 328 H Calcium 8.4 Phosphorus 2.8 Magnesium 1.9 Albumin 3.5 11/05/23 05:08 MCV MCH MCHC RDW Plt Count MPV Immature Gran % (Auto) Neut % (Auto) Lymph % (Auto) [place] % (Auto) Eos % (Auto) Baso % (Auto) Lymph # (Auto) [place] # (Auto) Eos # (Auto) Baso # (Auto) Abs Immat Gran (auto) Absolute Neuts (auto) Absolute Nucleated RBC Nucleated RBC % (auto) VBG pH 7.47 H VBG pCO2 63 VBG pO2 71 VBG HCO3 46 H VBG O2 Saturation 96.0 VBG Base Excess 19.6 Anion Gap Estim Creat Clear Calc Estimated GFR POC Glucose Random Glucose Calcium Phosphorus Magnesium Albumin Assessment and Plan (1) 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 indication of end stage renal disease in patient 6 to 64 years of age: Status: Acute (2) Hypoxia: Status: Acute Plan 78yo F with DM2, COPD not on home O2, NICO on CPAP, GERD, HFpEF, liver cirrhosis presenting with dyspnea + abd discomfort worsening over last month admitted for hypoxia due to CHF exac patient placed on IV Lasix and continued on home medication but on 11/02 noted to have altered mental status. Pt. somnolent but arousable but immediately falls back asleep. Asterixis noted. Ammonia normal. ABG with pH 7.23, PCO2 104, therefore she was placed on BiPAP and transferred to ICU. acute on chronic hypercarbic and hypoxic respiratory failure Patient treated with BiPAP on an AVAPS CO2 trended down to her baseline, on high-flow oxygen in ICU transitioned to 4 L nasal cannula Will continue BiPAP at , pulmonology following and will arrange for home BiPAP CT scan showed extensive bilateral areas of ground-glass infiltrate, no distinct consolidation noted Workup for vasculitis pending. On IV doxycycline and IV Levaquin started 11/02, will DC IV Levaquin, since no fevers, no cough, and normal WBC on IV steroids 60 mg q.6 hours will wean to IV Solu-Medrol 40 mg q.12 hours acute-chronic HFpEF Resolved on iv lasix continue carvedilol, losartan, spironolactone and transition to by mouth Lasix CT scan showed extensive bilateral areas of ground-glass infiltrate, no distinct consolidation noted Imdur, hydralazine, discontinued due to concern for bilateral extensive ground- glass infiltration. liver cirrhosis normal ammonia, no ascites. DM2 with hyperglycemia likely due to steroids hold OHGs, continue eri-dose lispro and diabetic diet GERD - continue famotidine 20 mg b.i.d. and Prilosec NICO/obesity hypoventilation syndrome - continue BiPAP at night morbid obesity - diet/exercise counseling Hyperlipidemia continue Pravachol VTE ppx - LMWH In my clinical judgment, the patient requires continued inpatient hospitalization for the following reasons: On BiPAP Quality Stroke Does the patient have a stroke diagnosis?: No VTE Prior VTE?: No VTE Risk Level:: Medical - moderate - high VTE Device Contraindication: Treatment Not Indicated VTE Drug Contraindication: N/A - Med Ordered
[2023-11-05 07:29] LABS: Glucose, Whole Blood 290 mg/dL (60-115)
[2023-11-05] MEDS: Doxycycline Hyclate 100 MG in 0.9 % Sodium Chloride 250 ML 166.67 MG IV ×2 (08:00→20:41)
[2023-11-05] MEDS: Furosemide 40 MG/4 ML VIAL IVPUSH (08:01)
[2023-11-05] MEDS: Insulin Lispro 100 UNIT/ML 3 ML VIAL SUBCUT ×5 (08:09→20:44)
[2023-11-05] MEDS: 0.9 % Sodium Chloride Flush 3 ML SYRINGE IVFLUSH ×3 (08:10→20:39)
[2023-11-05] MEDS: Enoxaparin Sodium 40 MG/0.4 ML SYRINGE SUBCUT (08:10)
[2023-11-05] MEDS: carvediloL 12.5 MG TABLET PO ×2 (08:11→20:35)
[2023-11-05] MEDS: Famotidine 20 MG TABLET PO ×2 (08:11→20:35)
[2023-11-05] MEDS: Spironolactone 25 MG TABLET PO (08:11)
[2023-11-05] MEDS: Losartan Potassium 50 MG TABLET 100 MG PO (08:11)
[2023-11-05 11:35] LABS: Glucose, Whole Blood 490 mg/dL (60-115)
[2023-11-05 11:35] LABS: Glucose, Whole Blood 356 mg/dL (60-115)
[2023-11-05] MEDS: levoFLOXacin/D5W 500 MG/100 ML PIGGYBACK 100 MG IV (11:41)
[2023-11-05] MEDS: Ergocalciferol (Vitamin D2) 1,250 MCG CAPSULE 1250 MCG PO (11:41)
[2023-11-05 16:24] LABS: Glucose, Whole Blood 403 mg/dL (60-115)
[2023-11-05 20:24] LABS: Glucose, Whole Blood 324 mg/dL (60-115)
[2023-11-05] MEDS: Pravastatin Sodium 40 MG TABLET PO (20:35)
[2023-11-05 21:28] LABS: Anti Glomerular Basement Memb <1.0 AI; Antibody to SS-A Antigen >8.0 POS AI (<1.0 NEG); Antibody to SS-B Antigen 2.2 POS AI (<1.0 NEG); Myeloperoxidase Antibody <1.0 AI; Proteinase 3 PR3 Antibodies <1.0 AI
[2023-11-05] MEDS: methylPREDNISolone Sod Succ 125 MG/2 ML VIAL 40 MG IVPUSH (22:42)
[2023-11-06] VITALS (7 sets, daily range): BP systolic 115–163; BP diastolic 55–73; PULSE 62–71; RESP 16–20; TEMP 36.1–36.7; O2SAT 96–100
[2023-11-06] MEDS: Omeprazole 20 MG CAPSULE.DR PO (05:52)
[2023-11-06 07:44] LABS: Glucose, Whole Blood 282 mg/dL (60-115)
--- NOTE | 2023-11-06 08:51 | PM.PNPUL ---
Subjective Subjective Date of Service: 11/06/23 Interval history: The patient was seen on exam. She is using the BiPAP at nighttime. Her settings are 16/5 with a respiratory rate of 12. The patient is tolerating it well. Her blood gases have improved dramatically. Baseline CO2 appears to be in the mid 60s. The patient has tried and failed CPAP. We will discuss with her primary software quality assurance analyst as far as the next step. Most likely the patient will require an in-lab sleep study to assess for BiPAP or IVAP. In the meantime her antibodies for Sjogren's are positive suggesting the possibility of a connective tissue disease related pneumonitis. She is responding well to the prednisone. Will go ahead and switch over from Solu-Medrol to prednisone. She continues on the oxygen although she does use oxygen at home. Objective Data Labs 11/05/23 05:06 11/05/23 05:06 Labs: Laboratory Results - last 24 hr 11/04/23 11/05/23 11/05/23 04:40 11:28 11:30 POC Glucose 490 H* 356 H* Proteinase 3 (PR3) Ab <1.0 Myeloperoxidase Ab <1.0 SS-A/Ro Antibody >8.0 POS A SS-B/La Antibody 2.2 POS A Glomerular Base Memb Ab <1.0 11/05/23 11/05/23 11/06/23 15:36 20:18 07:37 POC Glucose 403 H* 324 H 282 H Proteinase 3 (PR3) Ab Myeloperoxidase Ab SS-A/Ro Antibody SS-B/La Antibody Glomerular Base Memb Ab Microbiology Microbiology Results: Microbiology 11/01/23 23:48 Blood - Venous Blood Culture - Preliminary No growth after 48 hours. 11/01/23 23:48 Blood - Venous Blood Culture - Preliminary No growth after 48 hours. Review of Systems Constitutional: Reports fatigue and Reports lethargy Cardiovascular: Reports dyspnea on exertion and Reports orthopnea Respiratory: Reports dyspnea on exertion Gastrointestinal: Reports abdominal pain and Reports loose stools Genitourinary: Reports no additional female genitourinary complaints Endocrine: Reports fatigue Physical Exam Vital Signs: Vital Signs: Last Vital Signs Temp 97.0 F 11/06/23 07:35 Pulse 63 11/06/23 07:35 Resp 20 11/06/23 07:35 BP 122/58 L 11/06/23 07:35 Pulse Ox 97 11/06/23 07:35 O2 Del Method Nasal Cannula 11/06/23 07:35 O2 Flow Rate 3 11/06/23 07:35 FiO2 50 11/05/23 11:00 BMI result Body Mass Index 43.9 Const: General: no acute distress and alert Nutritional Appearance: obese Orientation/consciousness: Other orientation findings ( oriented) HEENT: Head: Yes atraumatic Eyes: Sclerae: sclerae normal Neck: Neck: Yes supple Lymphatic: no lymphadenopathy noted Chest: Chest palpation & inspection: normal inspection of the chest Resp: Effort & Inspection: normal respiratory effort Auscultation: rales and diminished lung sounds Cardio: Rate: regular rate Rhythm: regular rhythm Heart sounds: no gallops, no murmurs and no rubs Skin: General skin exam: no rashes or lesions noted Extrem: General: No clubbing, No cyanosis and Yes edema Procedures Date of Service Date of Service: 11/06/23 Assessment and Plan Assessment and plan (1) Acute hypoxic on chronic hypercapnic respiratory failure: Status: Acute (2) Pulmonary hypertension: Status: Acute (3) CHF (congestive heart failure): Status: Acute (4) NICO (obstructive sleep apnea): Status: Acute (5) Lymphadenopathy: Status: Acute (6) Pneumonitis: Status: Acute Plan Recommendations: Continue BiPAP for now. The patient has tried and failed CPAP would benefit from BiPAP or AVAP or IVAP. Will discuss with her primary software quality assurance analyst. In the meantime will benefit from an in-lab sleep study to address the question. Continue diuresis as tolerated Switch from Solu-Medrol to prednisone 40 mg daily monitor sugars based on the fact that she may have a connective disease related interstitial lung disease she may benefit from a steroid sparing agent to minimize hypoglycemia. She can discuss this further with her primary software quality assurance analyst when she follows up. Time Spent With Patient Time: Total time managing care of this patient today ____ minutes. Progress Note: Quality Stroke Does the patient have a stroke diagnosis?: No
[2023-11-06] MEDS: Spironolactone 25 MG TABLET PO (08:59)
[2023-11-06] MEDS: Famotidine 20 MG TABLET PO ×2 (08:59→20:17)
[2023-11-06] MEDS: Enoxaparin Sodium 40 MG/0.4 ML SYRINGE SUBCUT (08:59)
[2023-11-06] MEDS: Furosemide 40 MG TABLET PO (08:59)
[2023-11-06] MEDS: Doxycycline Hyclate 100 MG in 0.9 % Sodium Chloride 250 ML 166.67 MG IV (08:59)
[2023-11-06] MEDS: Losartan Potassium 50 MG TABLET 100 MG PO (08:59)
[2023-11-06] MEDS: carvediloL 12.5 MG TABLET PO ×2 (08:59→20:17)
[2023-11-06] MEDS: Insulin Lispro 100 UNIT/ML 3 ML VIAL SUBCUT ×4 (09:00→20:22)
[2023-11-06] MEDS: 0.9 % Sodium Chloride Flush 3 ML SYRINGE IVFLUSH ×2 (09:00→16:48)
--- NOTE | 2023-11-06 09:49 | MHC.CLN ---
NUTRITION CHANGED DIET ORDER TO DM 2000 KCALS AND ADDED 2 GRAM SODIUM TO BETTER MEET ESTIMATED NEEDS. TAKES DM MEDS AND DIURETIC.
--- NOTE | 2023-11-06 10:51 | HO.PM.IMPN ---
Subjective Subjective Date of Service: 11/06/23 Interval History: Patient awake alert at times forgetful, history obtained via transplant immunologist. Patient feeling better denies shortness of breath, offers no other complaints, no acute events overnight, on 4 L of oxygen finger oximetry 97%. Review of Systems All other system reviewed and negative Physical Exam Vital Signs: Vital Signs: Last Vital Signs Temp 97.0 F 11/06/23 07:35 Pulse 63 11/06/23 07:35 Resp 20 11/06/23 07:35 BP 122/58 L 11/06/23 07:35 Pulse Ox 97 11/06/23 07:35 O2 Del Method Nasal Cannula 11/06/23 07:35 O2 Flow Rate 3 11/06/23 07:35 FiO2 50 11/05/23 11:00 BMI result Body Mass Index 43.9 Const: Other: Gen: Awake alert , in no acute distress HEENT: sclera anicteric, moist mucus membranes Neck: supple, JVD Lungs: diminished , rhonchi, no crackles Heart: regular rate and rhythm, no murmurs, obese Abd: soft, non-tender, non-distended Ext: no edema Skin: warm/well-perfused Neuro: no focal findings Psych: appropriate affect Objective Data Active Medications Acetaminophen (Acetaminophen 325 Mg Tablet) 650 mg PO Q6H PRN PRN Reason: Pain, Mild (Pain Scale 1-3) Last Admin: 11/05/23 02:12 Dose: 650 mg Documented By: MITA Albuterol Sulfate (Albuterol Sulfate 90 Mcg 8 Gm Inhaler) 2 puff INHALE Q6H PRN PRN Reason: Wheezing Carvedilol (Carvedilol 12.5 Mg Tablet) 12.5 mg PO BID [facility]; Protocol Last Admin: 11/06/23 08:59 Dose: 12.5 mg Documented By: LOPEZ Dextrose (Dextrose 50 % 25 Gm/50 Ml Syringe) 25 gm IVPUSH Q15M PRN; Protocol PRN Reason: per Hypoglycemia Standing Ord. Enoxaparin Sodium (Enoxaparin Sodium 40 Mg/0.4 Ml Syringe) 40 mg SUBCUT DAILY [facility] Last Admin: 11/06/23 08:59 Dose: 40 mg Documented By: LOPEZ Ergocalciferol (Ergocalciferol (Vitamin D2) 1,250 Mcg Capsule) 1,250 mcg PO MO [facility] Last Admin: 11/05/23 11:41 Dose: 1,250 mcg Documented By: MAVIS Famotidine (Famotidine 20 Mg Tablet) 20 mg PO BID [facility] Last Admin: 11/06/23 08:59 Dose: 20 mg Documented By: LOPEZ Furosemide (Furosemide 40 Mg Tablet) 40 mg PO DAILY [facility]; Protocol Last Admin: 11/06/23 08:59 Dose: 40 mg Documented By: LOPEZ Glucose (Glucose Gel 15 Gm Gel..Gram.) 15 gm PO Q15M PRN; Protocol PRN Reason: per Hypoglycemia Standing Ord. Doxycycline Hyclate 100 mg/ (Sodium Chloride) 250 mls @ 166.67 mls/hr IV Q12H [facility] Last Infusion: 11/06/23 10:37 Dose: Infused Documented By: LOPEZ Insulin Human Lispro (Insulin Lispro 100 Unit/Ml 3 Ml Vial) 0 unit SUBCUT QIDACHS [facility]; Protocol Last Admin: 11/06/23 09:00 Dose: 10 unit Documented By: LOPEZ Losartan Potassium (Losartan Potassium 50 Mg Tablet) 100 mg PO DAILY [facility]; Protocol Last Admin: 11/06/23 08:59 Dose: 100 mg Documented By: LOPEZ Melatonin (Melatonin 3 Mg Tablet) 6 mg PO BEDTIME PRN PRN Reason: Insomnia Methylprednisolone Sodium Succinate (Methylprednisolone Sod Succ 125 Mg/2 Ml Vial) 40 mg IVPUSH Q12H [facility] Last Admin: 11/05/23 22:42 Dose: 40 mg Documented By: WILBER Omeprazole (Omeprazole 20 Mg ) 20 mg PO DAILY@0600 [facility] Last Admin: 11/06/23 05:52 Dose: 20 mg Documented By: FABI Pravastatin Sodium (Pravastatin Sodium 40 Mg Tablet) 40 mg PO BEDTIME [facility] Last Admin: 11/05/23 20:35 Dose: 40 mg Documented By: WILBER Sodium Chloride (0.9 % Sodium Chloride Flush 3 Ml Syringe) 3 ml IVFLUSH QSHIFT [facility] Last Admin: 11/06/23 09:00 Dose: 3 ml Documented By: LOPEZ Spironolactone (Spironolactone 25 Mg Tablet) 25 mg PO DAILY [facility]; Protocol Last Admin: 11/06/23 08:59 Dose: 25 mg Documented By: LOPEZ Labs 11/05/23 05:06 11/05/23 05:06 Labs: Laboratory Results - last 24 hr 11/04/23 11/05/23 11/05/23 04:40 11:28 11:30 POC Glucose 490 H* 356 H* Proteinase 3 (PR3) Ab <1.0 Myeloperoxidase Ab <1.0 SS-A/Ro Antibody >8.0 POS A SS-B/La Antibody 2.2 POS A Glomerular Base Memb Ab <1.0 11/05/23 11/05/23 11/06/23 15:36 20:18 07:37 POC Glucose 403 H* 324 H 282 H Proteinase 3 (PR3) Ab Myeloperoxidase Ab SS-A/Ro Antibody SS-B/La Antibody Glomerular Base Memb Ab Assessment and Plan (1) Acute hypoxic on chronic hypercapnic respiratory failure: Status: Acute Plan 78yo F with DM2, COPD not on home O2, NICO on CPAP, GERD, HFpEF, liver cirrhosis presenting with dyspnea + abd discomfort worsening over last month admitted for hypoxia due to CHF exac patient placed on IV Lasix and continued on home medication but on 11/02 noted to have altered mental status. Pt. somnolent but arousable but immediately falls back asleep. Asterixis noted. Ammonia normal. ABG with pH 7.23, PCO2 104, therefore she was placed on BiPAP and transferred to ICU. acute on chronic hypercarbic and hypoxic respiratory failure due to acute COPD exacerbation and acute on chronic heart failure with preserved Feeling better no shortness of breath, stable oxygenation on high-flow oxygen in ICU transitioned to 4 L nasal cannula, on home oxygen continue BiPAP at , pulmonology following and will arrange for home BiPAP after discussing with primary squirrel worker, will require in-lab sleep study CT scan showed extensive bilateral areas of ground-glass infiltrate, no distinct consolidation noted Sjogren antibodies positive On IV doxycycline started 11/02, no fevers, no cough, and normal WBC on IV Solu-Medrol 40 mg q.12 hours will transition to by mouth prednisone 40 mg daily to treat likely Sjogren's pneumonitis, other workup pending rheumatoid factor negative. acute-chronic HFpEF Resolved on iv lasix continue carvedilol, losartan, spironolactone and by mouth Lasix CT scan showed extensive bilateral areas of ground-glass infiltrate, no distinct consolidation noted Imdur, hydralazine, discontinued due to concern for bilateral extensive ground-glass infiltration. liver cirrhosis normal ammonia, no ascites. DM2 with hyperglycemia likely due to steroids hold OHGs, continue correction dose lispro and diabetic diet GERD - continue famotidine 20 mg b.i.d. and Prilosec NICO/obesity hypoventilation syndrome - continue BiPAP at night morbid obesity - diet/exercise counseling Hyperlipidemia continue Pravachol VTE ppx - LMWH In my clinical judgment, the patient requires continued inpatient hospitalization for the following reasons: On BiPAP/steroids Quality Stroke Does the patient have a stroke diagnosis?: No VTE Prior VTE?: No VTE Risk Level:: Medical - moderate - high VTE Device Contraindication: Treatment Not Indicated VTE Drug Contraindication: N/A - Med Ordered
[2023-11-06 10:54] LABS: Glucose, Whole Blood 319 mg/dL (60-115)
[2023-11-06 16:10] LABS: Glucose, Whole Blood 295 mg/dL (60-115)
[2023-11-06] MEDS: Doxycycline Monohydrate 100 MG CAPSULE PO (20:17)
[2023-11-06] MEDS: Pravastatin Sodium 40 MG TABLET PO (20:17)
[2023-11-06 20:41] LABS: Glucose, Whole Blood 220 mg/dL (60-115)
--- NOTE | 2023-11-06 23:19 | PC.RT ---
Pt refused BIPAP
[2023-11-07] VITALS (8 sets, daily range): BP systolic 139–192; BP diastolic 70–90; PULSE 64–77; RESP 18–20; TEMP 36.1–36.8; O2SAT 93–100
[2023-11-07 06:20] LABS: Anion Gap 8 (12-20); Blood Urea Nitrogen 31 mg/dL (9-16); Carbon Dioxide 46 mmol/L (22-29); Chloride 90 mmol/L (96-108); Creatinine Clr Calc Pharmacy 80.1; Estimated Glomerular Filt Rate > 60; Glucose Random 139 mg/dL (60-115); Potassium 4.4 mmol/L (3.3-5.1); Sodium 140 mmol/L (135-145)
[2023-11-07 06:23] LABS: Angiotensin Converting Enzyme 26.2 U/L (9-67)
[2023-11-07] MEDS: Omeprazole 20 MG CAPSULE.DR PO (06:23)
[2023-11-07] MEDS: Acetaminophen 325 MG TABLET 650 MG PO (06:24)
[2023-11-07] MEDS: 0.9 % Sodium Chloride Flush 3 ML SYRINGE IVFLUSH ×4 (06:29→21:17)
[2023-11-07 08:08] LABS: Glucose, Whole Blood 146 mg/dL (60-115)
[2023-11-07] MEDS: acetaZOLAMIDE 250 MG TABLET 500 MG PO ×2 (09:14→21:16)
[2023-11-07] MEDS: carvediloL 12.5 MG TABLET PO ×2 (09:14→21:16)
[2023-11-07] MEDS: Famotidine 20 MG TABLET PO ×2 (09:15→21:16)
[2023-11-07] MEDS: Enoxaparin Sodium 40 MG/0.4 ML SYRINGE SUBCUT (09:15)
[2023-11-07] MEDS: Spironolactone 25 MG TABLET PO (09:15)
[2023-11-07] MEDS: Doxycycline Monohydrate 100 MG CAPSULE PO ×2 (09:15→21:16)
[2023-11-07] MEDS: Furosemide 40 MG TABLET PO (09:15)
[2023-11-07] MEDS: predniSONE 20 MG TABLET 40 MG PO (09:15)
[2023-11-07] MEDS: Losartan Potassium 50 MG TABLET 100 MG PO (09:15)
--- NOTE | 2023-11-07 10:18 | MHC.CM.PN ---
Per ROUNDS discussion, Patient will need a PT Eval to assist with disposition; CM will follow.
[2023-11-07 11:27] LABS: Glucose, Whole Blood 205 mg/dL (60-115)
[2023-11-07] MEDS: Insulin Lispro 100 UNIT/ML 3 ML VIAL SUBCUT ×3 (12:04→21:17)
--- NOTE | 2023-11-07 13:15 | P.PNPL_ITS ---
Subjective Subjective Date of Service: 11/07/23 Interval history: The patient was seen on exam. She is using the oxygen during the daytime. At nighttime she struggles with the BiPAP. She does not use it all night because it affects her sleep. She does have a CPAP at home she tolerates that. The patient does have evidence of chronic hypercarbic respiratory failure likely due to obesity hypoventilation syndrome and Pickwickian syndrome. The patient benefits from a titration study to see if she benefits from a BiPAP/IVAP/AVAP. I did speak to her primary assembler hydraulic backhoe who will be seeing her on arranging this as an outpatient. Objective Data Labs 11/05/23 05:06 11/07/23 05:31 Labs: Laboratory Results - last 24 hr 11/03/23 11/06/23 11/06/23 17:20 15:55 20:16 Hold Purple Top Sodium Potassium Chloride Carbon Dioxide Anion Gap BUN Creatinine Estim Creat Clear Calc Estimated GFR POC Glucose 295 H 220 H Random Glucose Calcium Angiotensin Convert Enz 26.2 11/07/23 11/07/23 11/07/23 05:30 05:31 07:55 Hold Purple Top SEE NOTE Sodium 140 Potassium 4.4 Chloride 90 L Carbon Dioxide 46 H* Anion Gap 8 L BUN 31 H Creatinine 0.71 Estim Creat Clear Calc 80.1 Estimated GFR > 60 POC Glucose 146 H Random Glucose 139 H Calcium 9.0 D Angiotensin Convert Enz 11/07/23 11:10 Hold Purple Top Sodium Potassium Chloride Carbon Dioxide Anion Gap BUN Creatinine Estim Creat Clear Calc Estimated GFR POC Glucose 205 H Random Glucose Calcium Angiotensin Convert Enz Microbiology Microbiology Results: Microbiology 11/01/23 23:48 Blood - Venous Blood Culture - Final No growth after 5 days. 11/01/23 23:48 Blood - Venous Blood Culture - Final No growth after 5 days. Review of Systems Constitutional: Reports fatigue and Reports lethargy Cardiovascular: Reports dyspnea on exertion and Reports orthopnea Respiratory: Reports dyspnea on exertion Gastrointestinal: Reports abdominal pain and Reports loose stools Genitourinary: Reports no additional female genitourinary complaints Endocrine: Reports fatigue Physical Exam 2 Vital Signs: Vital Signs: Last Vital Signs Temp 97.1 F 11/07/23 11:03 Pulse 67 11/07/23 11:03 Resp 20 11/07/23 11:03 BP 139/70 11/07/23 11:03 Pulse Ox 100 11/07/23 11:03 O2 Del Method Nasal Cannula 11/07/23 11:03 O2 Flow Rate 2.5 11/07/23 11:03 FiO2 50 11/05/23 11:00 BMI result Body Mass Index 43.9 Const: Other: Gen: Awake alert , in no acute distress HEENT: sclera anicteric, moist mucus membranes Neck: supple, JVD Lungs: diminished , rhonchi, no crackles Heart: regular rate and rhythm, no murmurs, obese Abd: soft, non-tender, non-distended Ext: no edema Skin: warm/well-perfused Neuro: no focal findings Psych: appropriate affect Procedures Date of Service Date of Service: 11/07/23 Assessment and Plan Assessment and plan (1) Acute hypoxic on chronic hypercapnic respiratory failure: Status: Acute (2) Pulmonary hypertension: Status: Acute (3) CHF (congestive heart failure): Status: Acute (4) NICO (obstructive sleep apnea): Status: Acute (5) Lymphadenopathy: Status: Acute (6) Pneumonitis: Problem details: +SSA/SSB ?sjogrens related ILD Status: Acute Plan Recommendations: Continue BiPAP for now and will go back to CPAP at home. Will have an outpt inlab titration study ordered by her primary assembler hydraulic backhoe. Continue diuresis as tolerated Prednisone 40 mg daily monitor sugars based on the fact that she may have a connective disease related interstitial lung disease she may benefit from a steroid sparing agent to minimize hypoglycemia. She can discuss this further with her primary assembler hydraulic backhoe when she follows up. Time Spent With Patient Time: Total time managing care of this patient today ____ minutes. Progress Note: Quality Stroke Does the patient have a stroke diagnosis?: No
--- NOTE | 2023-11-07 14:17 | P.PNIM_ITS ---
Subjective Subjective Date of Service: 11/07/23 Interval History: History obtained via journal entry audit clerk patient resting comfortably offers no acute complaints, unable to tolerate BiPAP all night due to issues with sleep, was tolerating CPAP at home, denies chest pain, no shortness of breath no lightheadedness or dizziness at times forgetful that is her baseline. Review of Systems All other system reviewed and negative Physical Exam 2 Vital Signs: Vital Signs: Last Vital Signs Temp 97.1 F 11/07/23 11:03 Pulse 67 11/07/23 11:03 Resp 20 11/07/23 11:03 BP 139/70 11/07/23 11:03 Pulse Ox 100 11/07/23 11:03 O2 Del Method Nasal Cannula 11/07/23 11:03 O2 Flow Rate 2.5 11/07/23 11:03 FiO2 50 11/05/23 11:00 BMI result Body Mass Index 43.9 Const: Other: Gen: Awake alert , in no acute distress HEENT: sclera anicteric, moist mucus membranes Neck: supple, JVD Lungs: diminished , rhonchi, no crackles Heart: regular rate and rhythm, no murmurs, obese Abd: soft, non-tender, non-distended Ext: no edema Skin: warm/well-perfused Neuro: no focal findings Psych: appropriate affect Objective Data Active Medications Acetaminophen (Acetaminophen 325 Mg Tablet) 650 mg PO Q6H PRN PRN Reason: Pain, Mild (Pain Scale 1-3) Last Admin: 11/07/23 06:24 Dose: 650 mg Documented By: CARLOS Acetazolamide (Acetazolamide 250 Mg Tablet) 500 mg PO BID [facility] Stop: 11/09/23 21:01 Last Admin: 11/07/23 09:14 Dose: 500 mg Documented By: ZIA Albuterol Sulfate (Albuterol Sulfate 90 Mcg 8 Gm Inhaler) 2 puff INHALE Q6H PRN PRN Reason: Wheezing Carvedilol (Carvedilol 12.5 Mg Tablet) 12.5 mg PO BID [facility]; Protocol Last Admin: 11/07/23 09:14 Dose: 12.5 mg Documented By: ZIA Dextrose (Dextrose 50 % 25 Gm/50 Ml Syringe) 25 gm IVPUSH Q15M PRN; Protocol PRN Reason: per Hypoglycemia Standing Ord. Doxycycline Monohydrate (Doxycycline Monohydrate 100 Mg Capsule) 100 mg PO BID [facility] Last Admin: 11/07/23 09:15 Dose: 100 mg Documented By: ZIA Enoxaparin Sodium (Enoxaparin Sodium 40 Mg/0.4 Ml Syringe) 40 mg SUBCUT DAILY [facility] Last Admin: 11/07/23 09:15 Dose: 40 mg Documented By: ZIA Ergocalciferol (Ergocalciferol (Vitamin D2) 1,250 Mcg Capsule) 1,250 mcg PO MO [facility] Last Admin: 11/05/23 11:41 Dose: 1,250 mcg Documented By: MAVIS Famotidine (Famotidine 20 Mg Tablet) 20 mg PO BID [facility] Last Admin: 11/07/23 09:15 Dose: 20 mg Documented By: ZIA Furosemide (Furosemide 40 Mg Tablet) 40 mg PO DAILY [facility]; Protocol Last Admin: 11/07/23 09:15 Dose: 40 mg Documented By: ZIA Glucose (Glucose Gel 15 Gm Gel..Gram.) 15 gm PO Q15M PRN; Protocol PRN Reason: per Hypoglycemia Standing Ord. Insulin Human Lispro (Insulin Lispro 100 Unit/Ml 3 Ml Vial) 0 unit SUBCUT QIDACHS [facility]; Protocol Last Admin: 11/07/23 12:04 Dose: 8 unit Documented By: ZIA Losartan Potassium (Losartan Potassium 50 Mg Tablet) 100 mg PO DAILY [facility]; Protocol Last Admin: 11/07/23 09:15 Dose: 100 mg Documented By: ZIA Melatonin (Melatonin 3 Mg Tablet) 6 mg PO BEDTIME PRN PRN Reason: Insomnia Omeprazole (Omeprazole 20 Mg Capsule.Dr) 20 mg PO DAILY@0600 [facility] Last Admin: 11/07/23 06:23 Dose: 20 mg Documented By: CARLOS Pravastatin Sodium (Pravastatin Sodium 40 Mg Tablet) 40 mg PO BEDTIME [facility] Last Admin: 11/06/23 20:17 Dose: 40 mg Documented By: SOLEDAD Prednisone (Prednisone 20 Mg Tablet) 40 mg PO DAILY [facility] Last Admin: 11/07/23 09:15 Dose: 40 mg Documented By: ZIA Sodium Chloride (0.9 % Sodium Chloride Flush 3 Ml Syringe) 3 ml IVFLUSH QSHIFT [facility] Last Admin: 11/07/23 09:15 Dose: 3 ml Documented By: ZIA Spironolactone (Spironolactone 25 Mg Tablet) 25 mg PO DAILY [facility]; Protocol Last Admin: 11/07/23 09:15 Dose: 25 mg Documented By: ZIA Labs 11/05/23 05:06 11/07/23 05:31 Labs: Laboratory Results - last 24 hr 11/03/23 11/06/23 11/06/23 17:20 15:55 20:16 Hold Purple Top Anion Gap Estim Creat Clear Calc Estimated GFR POC Glucose 295 H 220 H Random Glucose Calcium Angiotensin Convert Enz 26.2 11/07/23 11/07/23 11/07/23 05:30 05:31 07:55 Hold Purple Top SEE NOTE Anion Gap 8 L Estim Creat Clear Calc 80.1 Estimated GFR > 60 POC Glucose 146 H Random Glucose 139 H Calcium 9.0 D Angiotensin Convert Enz 11/07/23 11:10 Hold Purple Top Anion Gap Estim Creat Clear Calc Estimated GFR POC Glucose 205 H Random Glucose Calcium Angiotensin Convert Enz Microbiology Microbiology Results: Microbiology 11/01/23 23:48 Blood Culture - Final Blood - Venous No growth after 5 days. 11/01/23 23:48 Blood Culture - Final Blood - Venous No growth after 5 days. Assessment and Plan (1) Acute hypoxic on chronic hypercapnic respiratory failure: Status: Acute Plan 78yo F with DM2, COPD not on home O2, NICO on CPAP, GERD, HFpEF, liver cirrhosis presenting with dyspnea + abd discomfort worsening over last month admitted for hypoxia due to CHF exac patient placed on IV Lasix and continued on home medication but on 11/02 noted to have altered mental status. Pt. somnolent but arousable but immediately falls back asleep. Asterixis noted. Ammonia normal. ABG with pH 7.23, PCO2 104, therefore she was placed on BiPAP and transferred to ICU. acute on chronic hypercarbic and hypoxic respiratory failure due to acute COPD exacerbation and acute on chronic heart failure with preserved ef Feeling better no shortness of breath, stable oxygenation on high-flow oxygen in ICU transitioned to 3 L nasal cannula,not on home oxygen , will continue to wean oxygen, noted to have hypoxia during daytime naps continue BiPAP at , pulmonology following , Dr. Chawla patient's primary photo equipment technician will arrange for outpatient sleep study and will arrange for BiPAP at home CT scan showed extensive bilateral areas of ground-glass infiltrate, no distinct consolidation noted Sjogren antibodies positive , workup for other vasculitis pending On doxycycline initially IV, now on po doxy started 11/02, no fevers, no cough, and normal WBC, DC doxycycline after 11/08 dose. s/p IV Solu-Medrol 40 mg q.12 hours, transitioned to by mouth prednisone 40 mg daily to treat likely Sjogren's pneumonitis, other workup pending ,rheumatoid factor negative. Will need outpatient follow-up with primary photo equipment technician for treatment of Sjogren's disease/and follow-up for other vasculitis Noted to have ch metabolic alkalosis likely compensatory will place on Diamox x3 days, follow BMP acute-chronic HFpEF Resolved continue carvedilol, losartan, spironolactone and by mouth Lasix Stable BP CT scan showed extensive bilateral areas of ground-glass infiltrate, no distinct consolidation noted Imdur, hydralazine, discontinued due to concern for bilateral extensive ground- glass infiltration. liver cirrhosis normal ammonia, no ascites. DM2 with hyperglycemia likely due to steroids Will resume metformin 1000 b.i.d., on Janumet at home will resume upon discharge, continue correction dose lispro and diabetic diet GERD continue famotidine 20 mg b.i.d. and Prilosec NICO/obesity hypoventilation syndrome - continue BiPAP at night, and resume CPAP upon discharge morbid obesity diet/exercise counseling Hyperlipidemia continue Pravachol Disposition PT eval obtain report pending VTE ppx - LMWH In my clinical judgment, the patient requires continued inpatient hospitalization for the following reasons: Safe disposition requiring weaning of oxygen On BiPAP/steroids Quality Stroke Does the patient have a stroke diagnosis?: No VTE Prior VTE?: No VTE Risk Level:: Medical - moderate - high VTE Device Contraindication: Treatment Not Indicated VTE Drug Contraindication: N/A - Med Ordered
--- NOTE | 2023-11-07 14:58 | MHC.CM.PN ---
PT is recommending STR; CM will follow.
[2023-11-07 16:00] LABS: Glucose, Whole Blood 275 mg/dL (60-115)
[2023-11-07] MEDS: metFORMIN HCl 1,000 MG TABLET 1000 MG PO (16:18)
[2023-11-07 20:28] LABS: Glucose, Whole Blood 248 mg/dL (60-115)
[2023-11-07] MEDS: Pravastatin Sodium 40 MG TABLET PO (21:16)
[2023-11-07] MEDS: amLODIPine Besylate 5 MG TABLET PO (23:36)
--- NOTE | 2023-11-07 23:50 | PC.RT ---
Pt refused bipap
[2023-11-08] VITALS (7 sets, daily range): BP systolic 128–183; BP diastolic 65–89; PULSE 71–86; RESP 18–20; TEMP 36.4–37.1; O2SAT 85–97
--- NOTE | 2023-11-08 01:18 | PC.NURSE ---
Pt hypertensive to 192 systolic during routine vitals. Pt denies and symptoms or changes. MD notified. 5 mg amlodpine PO given once. F/U BP 183/89. Pt continues to be asymptomatic and deny any pain. vision changes, palpitations, dyspnea, or any change. Call goodwin in reach. Plan of care ongoing
[2023-11-08] MEDS: Omeprazole 20 MG CAPSULE.DR PO (05:28)
[2023-11-08 06:18] LABS: Hematocrit 41.6 % (37.0-47.0); Hemoglobin 12.8 g/dl (12.0-16.0); Mean Corpuscular HGB Conc 30.8 g/dl (31.0-35.0); Mean Corpuscular Hemoglobin 29.8 pg (27.0-33.0); Mean Platelet Volume 10.6 fL (9.4-12.3); Platelet Count 157 X10*3/uL (160-400); Red Blood Count 4.29 X10*6/uL (4.20-5.50); Red Cell Distribution Width 12.2 % (11.0-16.0); White Blood Count 8.7 X10*3/uL (4.8-10.8)
[2023-11-08 06:29] LABS: Anion Gap 12 (12-20); Blood Urea Nitrogen 28 mg/dL (9-16); Calcium 9.2 mg/dL (8.4-10.2); Carbon Dioxide 38 mmol/L (22-29); Chloride 93 mmol/L (96-108); Creatinine Clr Calc Pharmacy 82.4; Estimated Glomerular Filt Rate > 60; Glucose Random 160 mg/dL (60-115); Potassium 4.6 mmol/L (3.3-5.1); Sodium 138 mmol/L (135-145)
--- NOTE | 2023-11-08 06:53 | PC.RT ---
pt refused bipap past 3 nights. Therefore the machine will be pulled from room. and MD will be notified
[2023-11-08 07:54] LABS: Glucose, Whole Blood 168 mg/dL (60-115)
[2023-11-08] MEDS: carvediloL 12.5 MG TABLET PO ×2 (08:22→19:58)
[2023-11-08] MEDS: Losartan Potassium 50 MG TABLET 100 MG PO (08:22)
[2023-11-08] MEDS: Enoxaparin Sodium 40 MG/0.4 ML SYRINGE SUBCUT (08:22)
[2023-11-08] MEDS: Insulin Lispro 100 UNIT/ML 3 ML VIAL SUBCUT ×4 (08:23→19:59)
[2023-11-08] MEDS: Furosemide 40 MG TABLET PO (08:23)
[2023-11-08] MEDS: Doxycycline Monohydrate 100 MG CAPSULE PO ×2 (08:23→19:58)
[2023-11-08] MEDS: Spironolactone 25 MG TABLET PO (08:24)
[2023-11-08] MEDS: acetaZOLAMIDE 250 MG TABLET 500 MG PO ×2 (08:24→19:59)
[2023-11-08] MEDS: Famotidine 20 MG TABLET PO ×2 (08:24→19:59)
[2023-11-08] MEDS: predniSONE 20 MG TABLET 40 MG PO (08:24)
[2023-11-08] MEDS: metFORMIN HCl 1,000 MG TABLET 1000 MG PO ×2 (08:24→17:12)
[2023-11-08] MEDS: 0.9 % Sodium Chloride Flush 3 ML SYRINGE IVFLUSH ×2 (08:25→17:12)
--- NOTE | 2023-11-08 11:39 | P.PNIM_ITS ---
Subjective Subjective Date of Service: 11/08/23 Interval History: seen and examined this morning follow up for respiratory failure awake, alert, no specific complaints. no sob Review of Systems Review of Systems: Yes all other systems are reviewed and are negative Cardiovascular Cardiovascular: Denies chest pain Physical Exam 2 Vital Signs: Vital Signs: Last Vital Signs Temp 97.5 F 11/08/23 11:31 Pulse 71 11/08/23 11:31 Resp 20 11/08/23 11:31 BP 134/65 11/08/23 11:31 Pulse Ox 94 11/08/23 11:31 O2 Del Method Nasal Cannula 11/08/23 11:31 O2 Flow Rate 0.5 11/08/23 11:31 FiO2 50 11/05/23 11:00 BMI result Body Mass Index 43.9 Const: Other: forgetful General: cooperative, comfortable, no acute distress, alert and awake N utritional Appearance: obese Resp: Effort & Inspection: normal respiratory effort, able to speak in complete sentences, no respiratory distress and no use of accessory muscles Cardio: Rate: regular rate GI: Inspection: No distended Palpation (GI): Soft to palpation and nontender Neuro: Other: grossly nonfocal General: moves all extremities Extrem: General: Yes no pedal edema Objective Data Active Medications Acetaminophen (Acetaminophen 325 Mg Tablet) 650 mg PO Q6H PRN PRN Reason: Pain, Mild (Pain Scale 1-3) Last Admin: 11/07/23 06:24 Dose: 650 mg Documented By: CARLOS Acetazolamide (Acetazolamide 250 Mg Tablet) 500 mg PO BID [facility] Stop: 11/09/23 21:01 Last Admin: 11/08/23 08:24 Dose: 500 mg Documented By: ZIA Albuterol Sulfate (Albuterol Sulfate 90 Mcg 8 Gm Inhaler) 2 puff INHALE Q6H PRN PRN Reason: Wheezing Carvedilol (Carvedilol 12.5 Mg Tablet) 12.5 mg PO BID [facility]; Protocol Last Admin: 11/08/23 08:22 Dose: 12.5 mg Documented By: ZIA Dextrose (Dextrose 50 % 25 Gm/50 Ml Syringe) 25 gm IVPUSH Q15M PRN; Protocol PRN Reason: per Hypoglycemia Standing Ord. Doxycycline Monohydrate (Doxycycline Monohydrate 100 Mg Capsule) 100 mg PO BID [facility] Last Admin: 11/08/23 08:23 Dose: 100 mg Documented By: ZIA Enoxaparin Sodium (Enoxaparin Sodium 40 Mg/0.4 Ml Syringe) 40 mg SUBCUT DAILY [facility] Last Admin: 11/08/23 08:22 Dose: 40 mg Documented By: ZIA Ergocalciferol (Ergocalciferol (Vitamin D2) 1,250 Mcg Capsule) 1,250 mcg PO MO [facility] Last Admin: 11/05/23 11:41 Dose: 1,250 mcg Documented By: MAVIS Famotidine (Famotidine 20 Mg Tablet) 20 mg PO BID [facility] Last Admin: 11/08/23 08:24 Dose: 20 mg Documented By: ZIA Furosemide (Furosemide 40 Mg Tablet) 40 mg PO DAILY [facility]; Protocol Last Admin: 11/08/23 08:23 Dose: 40 mg Documented By: ZIA Glucose (Glucose Gel 15 Gm Gel..Gram.) 15 gm PO Q15M PRN; Protocol PRN Reason: per Hypoglycemia Standing Ord. Insulin Human Lispro (Insulin Lispro 100 Unit/Ml 3 Ml Vial) 0 unit SUBCUT QIDACHS [facility]; Protocol Last Admin: 11/08/23 08:23 Dose: 4 unit Documented By: ZIA Losartan Potassium (Losartan Potassium 50 Mg Tablet) 100 mg PO DAILY [facility]; Protocol Last Admin: 11/08/23 08:22 Dose: 100 mg Documented By: ZIA Melatonin (Melatonin 3 Mg Tablet) 6 mg PO BEDTIME PRN PRN Reason: Insomnia Metformin HCl (Metformin Hcl 1,000 Mg Tablet) 1,000 mg PO BIDWM [facility] Last Admin: 11/08/23 08:24 Dose: 1,000 mg Documented By: ZIA Omeprazole (Omeprazole 20 Mg Capsule.) 20 mg PO DAILY@0600 [facility] Last Admin: 11/08/23 05:28 Dose: 20 mg Documented By: JERAMYLAMYuval Pravastatin Sodium (Pravastatin Sodium 40 Mg Tablet) 40 mg PO BEDTIME [facility] Last Admin: 11/07/23 21:16 Dose: 40 mg Documented By: MYLES Prednisone (Prednisone 20 Mg Tablet) 40 mg PO DAILY [facility] Last Admin: 11/08/23 08:24 Dose: 40 mg Documented By: ZIA Sodium Chloride (0.9 % Sodium Chloride Flush 3 Ml Syringe) 3 ml IVFLUSH QSHIFT TIMOTHY Last Admin: 11/08/23 08:25 Dose: 3 ml Documented By: ZIA Spironolactone (Spironolactone 25 Mg Tablet) 25 mg PO DAILY [facility]; Protocol Last Admin: 11/08/23 08:24 Dose: 25 mg Documented By: ZIA Labs 11/08/23 05:50 11/08/23 05:50 Labs: Laboratory Results - last 24 hr 11/07/23 11/07/23 11/08/23 15:20 20:14 05:50 MCV 97.0 MCH 29.8 MCHC 30.8 L RDW 12.2 Plt Count 157 L MPV 10.6 Absolute Nucleated RBC 0.000 Nucleated RBC % (auto) 0.0 Anion Gap 12 Estim Creat Clear Calc 82.4 Estimated GFR > 60 POC Glucose 275 H 248 H Random Glucose 160 H Calcium 9.2 11/08/23 07:37 MCV MCH MCHC RDW Plt Count MPV Absolute Nucleated RBC Nucleated RBC % (auto) Anion Gap Estim Creat Clear Calc Estimated GFR POC Glucose 168 H Random Glucose Calcium Assessment and Plan (1) Pneumonitis: Status: Acute (2) Chronic respiratory failure with hypercapnia: Status: Acute Plan This is a 78yo F with DM2, COPD not on home O2, NICO on CPAP, GERD, HFpEF, liver cirrhosis presenting with dyspnea + abd discomfort worsening over last month admitted for hypoxia due to CHF exacerbation patient placed on IV Lasix and continued on home medication but on 11/02 noted to have altered mental status. Pt. somnolent but arousable but immediately falls back asleep. Asterixis noted. Ammonia normal. ABG with pH 7.23, PCO2 104, therefore she was placed on BiPAP and transferred to ICU; downgraded back to the medical floor 11/05 acute on chronic hypercarbic and hypoxic respiratory failure due to acute COPD exacerbation and acute on chronic heart failure with preserved ef Feeling better no shortness of breath, stable oxygenation on high-flow oxygen in ICU 0.5 L NC,not on home oxygen; noted to have hypoxia during daytime naps continue BiPAP at [facility], pulmonology following, Dr. 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 Will need outpatient follow-up with primary regional loss prevention manager for treatment of Sjogren's disease/and follow-up for other vasculitis Noted to have ch metabolic alkalosis likely compensatory will place on Diamox x3 days, bicarb trending down, follow BMP acute on chronic HFpEF Resolved continue carvedilol, losartan, spironolactone and by mouth Lasix Stable BP CT scan showed extensive bilateral areas of ground-glass infiltrate, no distinct consolidation noted Imdur, hydralazine, discontinued due to concern for bilateral extensive ground- glass infiltration. liver cirrhosis normal ammonia, no ascites. DM2 with hyperglycemia likely due to steroids Will resume metformin 1000 b.i.d., on Janumet at home will resume upon discharge, continue correction dose lispro and diabetic diet GERD continue famotidine 20 mg b.i.d. and Prilosec NICO/obesity hypoventilation syndrome continue BiPAP at night, and resume CPAP upon discharge morbid obesity diet/exercise counseling Hyperlipidemia continue Pravachol Disposition, eval by PT - rec STR VTE ppx - lovenox In my clinical judgment, the patient requires continued inpatient hospitalization for the following reasons: Safe disposition requiring weaning of oxygen On BiPAP/steroids Quality Stroke Does the patient have a stroke diagnosis?: No VTE Prior VTE?: No VTE Risk Level:: Medical - moderate - high VTE Device Contraindication: Treatment Not Indicated VTE Drug Contraindication: N/A - Med Ordered
[2023-11-08 11:59] LABS: Glucose, Whole Blood 207 mg/dL (60-115)
--- NOTE | 2023-11-08 12:35 | P.DS_ITS ---
DS: Providers Provider Date of Service: 11/08/23 Date of admission: 11/02/23 03:22 Date of discharge: 11/08/23 Primary care physician: [facility] Consults: 11/02/23 09:22 Consult to Cardiology Routine Consulting Provider: [facility] Cardiovascular Services Reason for consultation: chf 11/03/23 16:24 Consult to Pulmonology Routine Consulting Provider: [facility] Pulmonology Services Reason for consultation: ILD Has provider been notified: Yes Attending physician on discharge: Liborio Huntley Discharging clinician: Rupali Sipvey DS: Diagnosis Discharge Diagnosis (1) Pneumonitis: Status: Acute (2) Chronic respiratory failure with hypercapnia: Status: Acute DS: Summary Hospital Course Hospital Course: From H&P on the day of admission This is a 78-year-old female with pertinent history of rcb-xhgujey-byooohhpt diabetes mellitus, COPD not on home oxygen, NICO on CPAP, gastroesophageal reflux disease, cirrhosis of the liver who presents to the emergency department for evaluation of dyspnea and abdominal discomfort. Patient states her symptoms have been ongoing for the last 1 month. The symptoms have been progressive and the dyspnea has worsened. She uses CPAP at bedtime. Does not use supplemental oxygen during day. Also admits orthopnea and lower extremity leg swelling. Patient states her abdominal discomfort worsened in the last couple of days and had an episode of diarrhea. No fever, chills, chest discomfort, palpitations, changes in urinary habits. In the emergency department, imaging with pulmonary edema and BNP found to be elevated. Patient was placed on supplemental oxygen and initiated on IV diuresis on 11/02 noted to have altered mental status. Pt. somnolent but arousable but immediately falls back asleep. ABG with pH 7.23, PCO2 104, therefore she was placed on BiPAP and transferred to ICU; downgraded back to the medical floor 11/05. acute on chronic hypercarbic and hypoxic respiratory failure due to acute COPD exacerbation and acute on chronic heart failure with preserved ef/Sjogren pneumonitis Feeling better no shortness of breath, stable oxygenation on high-flow oxygen in ICU weaned down to just 0.5 L via NC of supplemental oxygen, not on home oxygen; does have hypoxia during daytime naps. was started on BiPAP at [facility], pulmonology following, will need outpatient sleep study and possible BiPAP at home. CT scan showed extensive bilateral areas of ground-glass infiltrate, no distinct consolidation noted. Sjogren antibodies positive, workup for other vasculitis pending Initially treated with doxycycline initially IV, now on po doxy started 11/02, no fevers, no cough, and normal WBC, doxycycline end date 11/08 s/p IV Solu-Medrol 40 mg q.12 hours, transitioned to by mouth prednisone 40 mg daily to treat likely Sjogren's pneumonitis, other workup pending, rheumatoid factor negative. plan to taper prednisone every 5 days until on 10mg and continue until outpatient follow up with pulmonology. Will need outpatient follow-up with primary vegetable ii farmworker for treatment of Sjogren's disease/and follow-up for other vasculitis Noted to have ch metabolic alkalosis likely compensatory, pulmonology recommended against diamox. acute on chronic HFpEF Resolved continue carvedilol, losartan, spironolactone and by mouth Lasix Stable BP Imdur, hydralazine, discontinued due to concern for bilateral extensive ground- glass infiltration. NICO/obesity hypoventilation syndrome was treated with BiPAP at night, resume CPAP upon discharge and outpatient sleep study as above Intermittent high bp readings follow blood pressure and titrate medications prn patient was seen by PT who recommended STR Time Attestation Total time managing care of this patient today: 38 mintues. Discharge coordination time: Greater than 30 minutes Quality: Safe Use of Opioids Does Pt have an Active Cancer Diagnosis on the Problem List?: No Quality: Stroke Does the patient have a stroke diagnosis?: No Physical Exam Vital Signs: Vital Signs: Last Vital Signs Temp 97.5 F 11/08/23 11:31 Pulse 71 11/08/23 11:31 Resp 20 11/08/23 11:31 BP 134/65 11/08/23 11:31 Pulse Ox 94 11/08/23 11:31 O2 Del Method Nasal Cannula 11/08/23 11:31 O2 Flow Rate 0.5 11/08/23 11:31 FiO2 50 11/05/23 11:00 BMI result Body Mass Index 43.9 Const: Other: forgetful General: cooperative, comfortable, no acute distress, alert and awake Nutritional Appearance: obese Resp: Effort & Inspection: normal respiratory effort, able to speak in complete sentences, no respiratory distress and no use of accessory muscles Cardio: Rate: regular rate GI: Inspection: No distended Palpation (GI): Soft to palpation and nontender Neuro: Other: grossly nonfocal General: moves all extremities Extrem: General: Yes no pedal edema DS: Data Data Completed and Pending Completed studies during hospitalization [Text1]: Procedures Insertion of Endotracheal Airway into Trachea, Via Natural or Artificial Opening Endoscopic (07/12/21) Inspection of Lower Intestinal Tract, Via Natural or Artificial Opening Endoscopic (02/20/22) Resection of Gallbladder, Percutaneous Endoscopic Approach (07/12/21) Respiratory Ventilation, Less than 24 Consecutive Hours (07/12/21) Labs on day of discharge: Laboratory Results - last 24 hr 11/07/23 11/07/23 11/08/23 15:20 20:14 05:50 WBC 8.7 RBC 4.29 Hgb 12.8 Hct 41.6 MCV 97.0 MCH 29.8 MCHC 30.8 L RDW 12.2 Plt Count 157 L MPV 10.6 Absolute Nucleated RBC 0.000 Nucleated RBC % (auto) 0.0 Sodium 138 Potassium 4.6 Chloride 93 L Carbon Dioxide 38 H Anion Gap 12 BUN 28 H Creatinine 0.69 Estim Creat Clear Calc 82.4 Estimated GFR > 60 POC Glucose 275 H 248 H Random Glucose 160 H Calcium 9.2 11/08/23 11/08/23 07:37 11:32 WBC RBC Hgb Hct MCV MCH MCHC RDW Plt Count MPV Absolute Nucleated RBC Nucleated RBC % (auto) Sodium Potassium Chloride Carbon Dioxide Anion Gap BUN Creatinine Estim Creat Clear Calc Estimated GFR POC Glucose 168 H 207 H Random Glucose Calcium Discharge Plan Discharge Anticipated Discharge Date/Time: 11/08/23 16:00 Patient Disposition: [facility] Discharge Diagnosis: acute on chronic respiratory failure CHF obesity hypoventilation probable Sjogren pneumonitis NICO Referrals: [facility] [Outside] - 1 Week Center,[facility] [Primary Care Provider] - 1 Week Discharge Medications: New doxycycline monohydrate 100 mg Capsule 100 mg PO BID Qty: 1 0RF carvedilol 12.5 mg Tablet 12.5 mg PO BID Qty: 60 0RF Protocol: Hold for SBP/HR < HOLD for SBP < : 90 HOLD for HR < : 60 prednisone 20 mg Tablet 40 mg PO DAILY Qty: 1 0RF Continued losartan 100 mg tablet 1 tab PO QAM Janumet XR 50-1,000 mg tablet, ER multiphase 24 hr 1 tab PO DAILY pravastatin 40 mg tablet 40 mg PO QPM ergocalciferol (vitamin D2) 1,250 mcg (50,000 unit) capsule 1,250 mcg PO MO albuterol sulfate 90 mcg/actuation HFA aerosol inhaler 2 puff inhalation Q6H PRN (Reason: Wheezing) famotidine 20 mg tablet 20 mg PO BID pantoprazole 40 mg tablet,delayed release (DR/EC) 40 mg PO QAM (DME) lancets [TRUEplus Lancets] 33 gauge misc See Rx Instructions topical .MEDSUPPLY Qty: 100 Rx Instructions: As directed spironolactone 25 mg tablet 25 mg PO QAM furosemide 40 mg tablet 40 mg PO QAM Discontinued isosorbide mononitrate 20 mg tablet 20 mg PO DAILY hydralazine 25 mg tablet 25 mg PO TID carvedilol 25 mg tablet 25 mg PO BID Discharge Orders: Discharge Order (Routine); Ordered 11/08/23 Ordered By: Rupali Spivey Activity on Discharge: As tolerated Stand Alone Forms: Patient Portal Discharge page Care Plan Goals: see below Health Concerns: Acute on chronic hypercarbic and hypoxic respiratory failure due to acute COPD exacerbation and acute on chronic HFpEF Sjogren pneumonitis NICO Plan of Treatment: stop taking Imdur, hydralazine start taking coreg as prescribed take prednisone - 40 mg daily for 4 more days, and then decrease by 10 mg every 5 days to 10 mg daily until follow up with pulmonology one more dose of po doxycyline this evening will complete antibiotics needs outpatient sleep study to determine need for BIPAP etc. Call to schedule outpatient follow-up with pulmonology for further work up/management for pneumonitis use CPAP every night CHF precautions, low na diet, etc. monitor blood sugar while on steroids Assessment: see discharge summary
--- NOTE | 2023-11-08 12:41 | MHC.CM.PN ---
CM met with Patient and 2 of her Visitors today at bedside to discuss PT's recommendation for STR. CM provided Patient with a list of facilities that have a bed to offer and Patient chose [facility].CM addressed IMM with Patient at bedside and the original was given to her and a copy has been placed on the chart. Patient will dc to [facility] today at 4PM, via [facility] booking # is [id number]). CM attempted to inform Son/HCP/Andres @ [phone] of the dc plan but his phone is not accepting calls at this time. CM called Secondary Contact/Son/Ronny @ [phone] and was only able to leave a detailed message, informing him of the dc plan. CM asked Ronny to forward the dc plan to Andres.
[2023-11-08 16:57] LABS: Glucose, Whole Blood 242 mg/dL (60-115)
[2023-11-08] MEDS: Pravastatin Sodium 40 MG TABLET PO (19:59)
--- NOTE | 2023-11-08 20:27 | PC.NURSE ---
Discharge 2014. Patient discharged to [facility]. Report given to EMS along with medication administration summary for [facility]. Pt IV discontinued as documented. host/hostess utilized and pt verbalized willingness and readiness to be discharged. Pt alert, able to swallow pills easily with water. Follows commands and able to feed self as was finishing up dinner upon entering the room. Pt Sinus rhythm on monitor, RR even and nonlabored. VS as documented.
[2023-11-08 20:46] LABS: Glucose, Whole Blood 182 mg/dL (60-115)
[2023-11-09 03:14] LABS: Legionella Ag Urine Not Detected (Not Detected)
[2023-11-11 12:18] LABS: Anti Nuclear Antibody Pattern Nuclear, Speckled; Anti Nuclear Antibody Screen POSITIVE (NEGATIVE); Anti Nuclear Antibody Titer 1:40 titer
== END 2023-11-08 20:15 | disposition skilled nursing facility (03) | DRG 291 ==
LOC: HO.ED 11-02 03:21 → HO.EDOVER 11-02 03:31 → HO.S3 11-02 14:45 → HO.EDOVER 11-02 16:30 → HO.IMC 11-02 19:38 → HO.EDOVER 11-02 19:42 → HO.ICU 11-02 20:03 → HO.IMC 11-05 11:53
PROVIDERS: Family Medicine; Hospitalist; Internal Medicine Cardiovascular Disease; Nurse Practitioner Family; Admitting Provider Student in an Organized Health Care Education/Training Program; Emergency Provider Emergency Medicine; Visit Provider Physician Assistant Medical
DX: I11.0 Hypertensive heart disease with heart failure (principal); I50.33 Acute on chronic diastolic (congestive) heart failure; J96.21 Acute and chronic respiratory failure with hypoxia; J96.22 Acute and chronic respiratory failure with hypercapnia; E66.2 Morbid (severe) obesity with alveolar hypoventilation; Z68.41 Body mass index [BMI] 40.0-44.9, adult; M35.02 Sjogren syndrome with lung involvement; F17.210 Nicotine dependence, cigarettes, uncomplicated; I27.20 Pulmonary hypertension, unspecified; Z71.6 Tobacco abuse counseling; E11.65 Type 2 diabetes mellitus with hyperglycemia; K21.9 Gastro-esophageal reflux disease without esophagitis; K74.69 Other cirrhosis of liver; Z71.3 Dietary counseling and surveillance; Z91.199 Patient's noncompliance with other medical treatment and regimen due to unspecified reason; Z20.822 Contact with and (suspected) exposure to COVID-19; Z79.899 Other long term (current) drug therapy
CPT/HCPCS: 36415; 36600; 71045; 71250; 74177; 80048; 80076; 81003; 82040; 82140; 82164; 82803; 82947; 83520; 83605; 83735; 83880; 84100; 84145; 84484; 85025; 85027; 85610; 85652; 86021; 86038; 86039; 86235; 86431; 87040; 87449; 87502; 87633; 87635; 93005; 93306; 94660; 97162; 97530; 99285; J1650; J1940; J1956; J2930; Q9957; Q9967

== ENCOUNTER → 2023-11-01 23:23 | Outpatient (BNV) | payer OTHER, SELFPAY | PROVIDERS: Admitting Provider Student in an Organized Health Care Education/Training Program; Emergency Provider Emergency Medicine; Visit Provider Internal Medicine Cardiovascular Disease | DX: R06.00 Dyspnea, unspecified (principal) | CPT/HCPCS: 93010 ==

== ENCOUNTER → 2023-11-02 03:22 | Outpatient (BNV) | payer OTHER, SELFPAY | PROVIDERS: Admitting Provider Student in an Organized Health Care Education/Training Program; Emergency Provider Emergency Medicine; Visit Provider Internal Medicine Cardiovascular Disease | DX: I50.9 Heart failure, unspecified (principal) | CPT/HCPCS: 93306; 99222 ==

== ENCOUNTER → 2023-11-02 03:22 | Outpatient (BNV) | payer OTHER, SELFPAY | PROVIDERS: Admitting Provider Student in an Organized Health Care Education/Training Program; Emergency Provider Emergency Medicine; Visit Provider Student in an Organized Health Care Education/Training Program | DX: J96.21 Acute and chronic respiratory failure with hypoxia (principal); J96.22 Acute and chronic respiratory failure with hypercapnia; I50.33 Acute on chronic diastolic (congestive) heart failure; J98.4 Other disorders of lung | CPT/HCPCS: 99222; 99233; 99239; 99499 ==

== ENCOUNTER → 2023-11-02 03:22 | Outpatient (BNV) | payer OTHER, SELFPAY | PROVIDERS: Admitting Provider Student in an Organized Health Care Education/Training Program; Emergency Provider Emergency Medicine; Visit Provider Internal Medicine Cardiovascular Disease | DX: J96.21 Acute and chronic respiratory failure with hypoxia (principal); J96.22 Acute and chronic respiratory failure with hypercapnia; I11.9 Hypertensive heart disease without heart failure; I27.20 Pulmonary hypertension, unspecified; E66.2 Morbid (severe) obesity with alveolar hypoventilation | CPT/HCPCS: 99291 ==

== ENCOUNTER → 2023-11-02 03:22 | Outpatient (BNV) | payer OTHER, SELFPAY | PROVIDERS: Admitting Provider Student in an Organized Health Care Education/Training Program; Emergency Provider Emergency Medicine; Visit Provider Hospitalist | DX: J96.01 Acute respiratory failure with hypoxia (principal); J96.12 Chronic respiratory failure with hypercapnia; I27.20 Pulmonary hypertension, unspecified; I50.9 Heart failure, unspecified; G47.33 Obstructive sleep apnea (adult) (pediatric); R59.1 Generalized enlarged lymph nodes; J98.4 Other disorders of lung | CPT/HCPCS: 99223; 99233 ==

== ENCOUNTER 2023-11-13 16:38 | Inpatient (IN) | payer OTHER, SELFPAY ==
--- NOTE | ~2023-11-13 | XR_ITS ---
EXAMINATION: Right foot and ankle x-ray CLINICAL INFORMATION: Fall COMPARISON: Right ankle x-ray most recent September 2020 TECHNIQUE: 3 views of the right foot and 3 views of the right ankle FINDINGS: Right foot: Pes planus. Bone alignment is otherwise normal. No fracture or dislocation. Mild degenerative change of the first joint joint space narrowing and small osteophytes. Calcaneal spurs. Right ankle: Oblique fracture of the distal shaft of the fibula with 5 mm lateral displacement lateral malleolus with respect to the more proximal shaft. No other fracture. Unstable ankle mortise with medial ankle mortise widening. Soft tissue swelling, greatest medially. Soft tissue pelvis indication suggestive of venous stasis. XR/XR ankle RT min 3V IMPRESSION: RIGHT FOOT: No fracture or dislocation. RIGHT ANKLE: Oblique displaced lateral malleolus fracture. Medial ankle mortise widening.
--- NOTE | ~2023-11-13 | XR_ITS ---
EXAMINATION: Right foot and ankle x-ray CLINICAL INFORMATION: Fall COMPARISON: Right ankle x-ray most recent September 2020 TECHNIQUE: 3 views of the right foot and 3 views of the right ankle FINDINGS: Right foot: Pes planus. Bone alignment is otherwise normal. No fracture or dislocation. Mild degenerative change of the first joint joint space narrowing and small osteophytes. Calcaneal spurs. Right ankle: Oblique fracture of the distal shaft of the fibula with 5 mm lateral displacement lateral malleolus with respect to the more proximal shaft. No other fracture. Unstable ankle mortise with medial ankle mortise widening. Soft tissue swelling, greatest medially. Soft tissue pelvis indication suggestive of venous stasis. XR/XR foot RT 2V IMPRESSION: RIGHT FOOT: No fracture or dislocation. RIGHT ANKLE: Oblique displaced lateral malleolus fracture. Medial ankle mortise widening.
[2023-11-13 16:48] VITALS: BP 117/72; BP 128/76; PULSE 70; PULSE 74; RESP 19; TEMP 36.9; O2SAT 100; BMI 45.9
--- NOTE | 2023-11-13 16:52 | ECG_ITS ---
Test Reason : PEAKED T-WAVE Blood Pressure : / mmHG Vent. Rate : 068 BPM Atrial Rate : 068 BPM P-R Int : 160 ms QRS Dur : 088 ms QT Int : 352 ms P-R-T Axes : 037 021 041 degrees QTc Int : 374 ms Normal sinus rhythm Peaked T waves, otherwise normal When compared with ECG of 02-NOV-2023 00:00, T waves appear peaked Referred By: Generic ED Physician Electronically Signed By:KAMRAN DUEÑAS
--- NOTE | 2023-11-13 17:52 | ED.GENADULT ---
HPI - General Adult General Chief complaint: Fall Stated complaint: fell in bathroom injured ankle from snf Time Seen by Provider: 11/13/23 17:04 Source: patient Mode of arrival: ambulatory Limitations: no limitations History of Present Illness HPI narrative: 78 yold female with pmh of CHF, abdominal pain, Chronic respiratory failure and at baseline is on 0xygen canula, and diabetes presents to the ED for right ankle pain. Patient states she was trying to sit back into the toilet to urinate while holding onto the walker and she missed her step which caused her to fall onto her right ankle foot. Fall was witnessed by . Patient did not hit her head on any object and body did not fall to the ground. Patient states twisting her ankle and hearing a crack when she fell. Patient denies any other complaint. Patient did not have any chest pain, nausea, vomiting, abdominal pain, or dizziness before falling. Patient read so she did not hit her head on any object and just fell twisting her ankle. Patient states torso head back chest did not hit the ground. Patient's other complaint with polydipsia and polyuria. Glucose in EMS was 400 Related Data Home Medications Medication Instructions Recorded Confirmed losartan 100 mg tablet 1 tab PO QAM 07/12/21 11/13/23 lancets 33 gauge (TRUEplus Lancets) #100 ea 09/20/21 sitagliptin phos 50 mg-metformin 1 tab PO DAILY 02/20/22 11/13/23 ER 1,000 mg tablet,extend rel 24h mp (Janumet XR) spironolactone 25 mg tablet 25 mg PO QAM 11/15/22 11/13/23 furosemide 40 mg tablet 40 mg PO QAM 05/11/23 11/13/23 albuterol sulfate 90 mcg/actuation 2 puff inhalation Q6H PRN Wheezing 11/02/23 11/13/23 aerosol inhaler ergocalciferol (vitamin D2) 1,250 1,250 mcg PO MO 11/02/23 11/13/23 mcg (50,000 unit) capsule famotidine 20 mg tablet 20 mg PO BID 11/02/23 11/13/23 pantoprazole 40 mg tablet,delayed 40 mg PO QAM 11/02/23 11/13/23 release pravastatin 40 mg tablet 40 mg PO QPM 11/02/23 11/13/23 acetaminophen 325 mg capsule 650 mg PO Q4H PRN pain or fever 11/13/23 11/13/23 (Tylenol) acetaminophen 650 mg rectal 650 mg TX Q4H PRN Pain or fever 11/13/23 11/13/23 suppository bisacodyl 10 mg rectal suppository 10 mg TX DAILY PRN Constipation 11/13/23 11/13/23 insulin aspart U-100 100 unit/mL 0 sliding scale dose subcut BID 11/13/23 11/13/23 subcutaneous solution (Novolog diabetes U-100 Insulin aspart) magnesium hydroxide 2,400 mg/10 mL 30 ml PO DAILY PRN Constipation 11/13/23 11/13/23 oral suspension (Milk Of Magnesia Concentrated) prednisone 20 mg tablet See Taper PO DAILY 11/13/23 11/13/23 sodium phosphates 19 gram-7 118 ml TX DAILY PRN Constipation 11/13/23 11/13/23 gram/118 mL enema (Fleet Enema) Previous Rx's Medication Instructions Recorded carvedilol 12.5 mg tablet 12.5 mg PO BID #60 tabs 11/07/23 oxycodone 5 mg tablet 5 mg PO Q4H PRN Pain, Severe (Pain 11/15/23 Scale 7-10) #10 tabs Allergies Allergy/AdvReac Type Severity Reaction Status Date / Time No Known Allergies Allergy Verified 11/13/23 16:51 [No Known Allergies*] Review of Systems Review of Systems: Right ankle pain after fall Yes all other systems are reviewed and are negative [facility] Past Medical History Medical History Pneumonitis Pulmonary hypertension Hypertensive cardiovascular disease Acute hypoxic on chronic hypercapnic respiratory failure Acute on chronic respiratory failure with hypoxemia Obesity hypoventilation syndrome NICO (obstructive sleep apnea) GERD (gastroesophageal reflux disease) Hypertension Diabetes mellitus COPD (chronic obstructive pulmonary disease) Surgical History S/P laparoscopic cholecystectomy (07/14/21) Family History Family History Mother Diabetes Social History Social History Household Members: Family Housing: Assisted Living Facility Do you presently have visiting nurse or other home services: No Patient Tobacco Use Status: Former Tobacco user Tobacco use type: Cigarette Years Smoked: 20 service: No Current occupational status: unemployed and disabled Physical Exam ED Vital Signs: Vital Signs - 24 hr 11/13/23 16:48 Temperature 98.4 F Pulse Rate 74 Respiratory Rate 19 Blood Pressure 117/72 Pulse Oximetry 100 Oxygen Delivery Method Nasal Cannula BMI result Body Mass Index 45.9 Const Orientation/consciousness: oriented to person, oriented to place, oriented to time and patient oriented x3 [facility] Head: Yes normal to inspection, Yes No palpable skull fracture present, Yes normocephalic, Yes atraumatic, No abrasion, No Acrocyanosis present, No Altamirano's sign, No contusion, No cranial bruits, No hematoma, No laceration, No occipital foramen tenderness, No palpable skull fracture, No raccoon eyes, No scalp lesion, No scalp tenderness, No Temporal artery tenderness present and No periorbital ecchymosis Ears: hearing grossly normal bilaterally, external ears normal, TM's normal bilaterally, TM normal on the right, TM normal on the left, EAC's normal, mastoids normal and no periauricular adenopathy Eyes General: appearance normal, both eyes and all related structures Visual Nelson: normal visual nelson by confrontation Alignment and Position: alignment normal Periorbital: periorbital findings normal Eyelids: Yes eyelids normal Conjunctivae: conjunctivae normal Sclerae: sclerae normal Corneas: corneas normal Neck Neck: Yes normal visual inspection, Yes full ROM, Yes no lymphadenopathy, Yes no meningeal signs, Yes trachea midline, Yes supple, No anterior neck swelling and No tender Chest Chest palpation & inspection: normal inspection of the chest and normal palpation of entire chest wall Resp Effort & Inspection: normal respiratory effort and able to speak in complete sentences Auscultation: clear to auscultation bilaterally Cardio Jugular venous distension: no JVD Heart sounds: S1 normal heart sound present and S2 normal heart sound present GI Inspection: Yes normal to inspection and No abdominal wall ecchymosis Palpation (GI): Soft to palpation, not firm, nontender, no guarding and not rigid General: No CVA tenderness and Yes no CVA tenderness Back/Spine/Pelvis Back: no CVA tenderness, No CVA tenderness and No back tenderness Skin General skin exam: no rashes or lesions noted, elasticity normal and turgor normal Neuro General: oriented to person, oriented to place, oriented to time, patient oriented x3, gait normal, tone normal, moves all extremities, Normal light touch and pain sensation, no meningeal signs, no focal motor deficits, CN's II-XI intact bilaterally and normal sensation to monofilament Extrem General: Yes normal to inspection Ankle/foot/toe images: 1. RIght ankle swelling with tenderness on palpation. Able to move but with pain. Negative crepitus. Vascular neuro exam intact. Rest of extremity normal Psych Appearance: grossly normal and well kempt Medications Administered Generic Name Dose Route Start Last Admin Trade Name Freq PRN Reason Stop Dose Admin Carvedilol 12.5 mg 11/13/23 22:15 11/15/23 09:03 Carvedilol 12.5 Mg Tablet PO 12.5 mg BID [facility] Administration Protocol Famotidine 20 mg 11/13/23 22:15 11/15/23 09:03 Famotidine 20 Mg Tablet PO 20 mg BID TIMOTHY Administration Furosemide 40 mg 11/14/23 09:00 11/15/23 09:03 Furosemide 40 Mg Tablet PO 40 mg DAILY [facility] Administration Protocol Heparin Sodium (Porcine) 5,000 unit 11/13/23 23:00 11/15/23 09:04 Heparin Sodium,Porcine 5,000 Unit/Ml Vial SUBCUT 5,000 unit Q12H [facility] Administration Insulin Glargine 20 unit 11/13/23 22:15 11/14/23 21:49 Insulin Glargine,Hum.Rec.Anlog 100 Unit/Ml 10 Ml Vial SUBCUT 20 unit BEDTIME [facility] Administration Insulin Human Lispro 0 unit 11/14/23 07:30 11/15/23 11:58 Insulin Lispro 100 Unit/Ml 3 Ml Vial SUBCUT 2 unit QIDACHS [facility] Administration Protocol Insulin Human Lispro 5 unit 11/15/23 07:30 11/15/23 11:57 Insulin Lispro 100 Unit/Ml 3 Ml Vial SUBCUT 5 unit QIDACHS [facility] Administration Magnesium Hydroxide 30 ml 11/13/23 22:10 11/15/23 10:19 Milk Of Magnesia 30 Ml Oral.Susp PO 30 ml DAILY PRN Administration Constipation Omeprazole 20 mg 11/14/23 06:30 11/15/23 06:30 Omeprazole 20 Mg Capsule. PO Not Given DAILY@0630 [facility] Oxycodone HCl 5 mg 11/13/23 22:15 11/15/23 10:17 Oxycodone Hcl Immed Release 5 Mg Tablet PO 5 mg Q4H PRN Administration Pain, Severe (Pain Scale 7-10) Pravastatin Sodium 40 mg 11/13/23 22:00 11/14/23 21:47 Pravastatin Sodium 40 Mg Tablet PO Not Given BEDTIME TIMOTHY Prednisone 30 mg 11/14/23 09:00 11/15/23 09:03 Prednisone 20 Mg Tablet PO 11/29/23 08:59 30 mg DAILY TIMOTHY Administration Taper Sodium Chloride 3 ml 11/14/23 00:00 11/15/23 07:41 0.9 % Sodium Chloride Flush 3 Ml Syringe IVFLUSH 3 ml QSHIFT TIMOTHY Administration Discontinued Medications Generic Name Dose Route Start Last Admin Trade Name Freq PRN Reason Stop Dose Admin Albuterol Sulfate 10 mg 11/13/23 19:32 11/13/23 20:27 Albuterol Sulfate (0.083%) 2.5 Mg/3 Ml Vial.Neb INHALE 11/13/23 19:33 10 mg ONCE ONE Administration Dextrose 25 gm 11/13/23 19:32 11/13/23 20:10 Dextrose 50 % 25 Gm/50 Ml Syringe IVPUSH 11/13/23 19:33 25 gm ONCE ONE Administration Calcium Gluconate 2 gm in 100 mls @ 50 mls/hr 11/13/23 19:37 11/13/23 22:52 Calcium Gluconate IV 11/13/23 21:36 Infused ONCE ONE Infusion Sodium Chloride 500 mls @ 500 mls/hr 11/13/23 22:00 11/14/23 00:50 Ns IV 11/13/23 22:59 Infused .Q1H TIMOTHY Infusion Insulin Human Regular 10 unit 11/13/23 19:32 11/13/23 20:13 Insulin Regular, Human 100 Unit/Ml 3 Ml Vial IVPUSH 11/13/23 19:33 10 unit ONCE ONE Administration Morphine Sulfate 4 mg 11/13/23 17:52 11/13/23 18:14 Morphine Sulfate 4 Mg/Ml Cartridge IVPUSH 11/13/23 17:53 4 mg ONCE ONE Administration Protocol Sodium Zirconium Cyclosilicate 10 gm 11/13/23 19:32 11/13/23 20:10 Sodium Zirconium Cyclosilicate 10 Gm Powd.Pack PO 11/13/23 19:33 10 gm ONCE ONE Administration Sodium Zirconium Cyclosilicate 10 gm 11/14/23 07:27 11/14/23 07:54 Sodium Zirconium Cyclosilicate 10 Gm Powd.Pack PO 11/14/23 07:28 10 gm ONCE ONE Administration Sodium Zirconium Cyclosilicate 10 gm 11/14/23 14:37 11/14/23 15:51 Sodium Zirconium Cyclosilicate 10 Gm Powd.Pack PO 11/14/23 14:38 10 gm ONCE ONE Administration Sodium Zirconium Cyclosilicate 10 gm 11/14/23 17:24 11/14/23 18:55 Sodium Zirconium Cyclosilicate 10 Gm Powd.Pack PO 11/14/23 17:25 10 gm ONCE ONE Administration Medical Decision Making Medical Decision Making [facility] Narrative: 78-year-old history of diabetes chronic hypoxic failure on baseline oxygen nasal cannula at home, diabetes, CHF presents to ED for falling after missing her step in a bathroom with a walker. Patient denies dizziness or falling before falling. Due to patient states hyperglycemia hi polydipsia polyuria labs ordered 21:00pm: patient placed in posterior splint for ankle fracture. Patinet treated for hyperakelmia with peak t waves. Hyperkalemia probbably from meds. Case discussed with Hospitalist Dr. Black for admission. NO need for Head CT scan. patient denies hitting head. Differential Diagnosis Differential Diagnoses: The differential diagnosis associated with the presentation includes (Fracture. fall. AK, elctrolyte abnormality) Admission/Observation Consideration of admission/observation: Escalation of care including admission/observation considered Consult Healthcare Provider Management of the patient was discussed with: Hospitalist (Dr. Black) Lab Data [facility] Lab Attestation statement: I reviewed the patient's lab results. 11/14/23 05:32 11/15/23 05:27 Labs: Lab Results 11/13/23 11/13/23 11/13/23 Range/Units 16:51 18:37 19:12 WBC 9.8 (4.8-10.8) X10*3/uL RBC 4.15 L (4.20-5.50) X10*6/uL Hgb 12.2 (12.0-16.0) g/dl Hct 40.8 (37.0-47.0) % MCV 98.3 H (80.0-98.0) fL MCH 29.4 (27.0-33.0) pg MCHC 29.9 L (31.0-35.0) g/dl RDW 12.1 (11.0-16.0) % Plt Count 113 L D (160-400) X10*3/uL MPV 11.7 (9.4-12.3) fL Immature Gran % (Auto) 1.1 H (0.0-0.4) % Neut % (Auto) 85.4 H (45-73) % Lymph % (Auto) 6.4 L (20-40) % Cocke % (Auto) 7.0 (2-11) % Eos % (Auto) 0.0 (0-4) % Baso % (Auto) 0.1 (0-2) % Lymph # (Auto) 0.6 L (1.2-4.9) X10*3/uL Cocke # (Auto) 0.7 (0.1-1.2) X10*3/uL Eos # (Auto) 0.0 (0.0-0.4) X10*3/uL Baso # (Auto) 0.0 (0.0-0.2) X10*3/uL Abs Immat Gran (auto) 0.11 H (0.00-0.03) X10*3/uL Absolute Neuts (auto) 8.4 H (2.0-8.3) x10*3/uL Absolute Nucleated RBC 0.000 (0.0-0.012) X10*3/uL Nucleated RBC % (auto) 0.0 (0.0-0.2) /100WBC Hold Blue Top VBG pH (7.32-7.43) VBG pCO2 mmHg VBG pO2 mmHg VBG HCO3 (22-26) mmol/L VBG O2 Saturation % VBG Base Excess mmol/L Sodium 132 L (135-145) mmol/L Potassium 6.6 H* D (3.3-5.1) mmol/L Chloride 94 L (96-108) mmol/L Carbon Dioxide 31 H (22-29) mmol/L Anion Gap 14 (12-20) BUN 31 H (9-16) mg/dL Creatinine 0.89 (0.5-1.4) mg/dL Estim Creat Clear Calc 65.5 Estimated GFR > 60 POC Glucose 367 H* (60-115) mg/dL Random Glucose 399 H* (60-115) mg/dL Calcium 9.2 (8.4-10.2) mg/dL Total Bilirubin 0.3 (0.0-1.0) mg/dL AST 17 (5-31) U/L ALT 48 H (0-31) U/L Alkaline Phosphatase 66 (39-117) U/L Troponin I High Sens < 2.7 D (<3.5-17.0) ng/L B-Natriuretic Peptide 82 (<100) pg/mL Total Protein 6.8 (6.5-8.0) g/dL Albumin 3.6 (3.5-5.0) g/dL Beta-Hydroxybutyrate 0.09 (0.02-0.27) mmol/L 11/13/23 11/13/23 11/13/23 Range/Units 19:15 21:35 21:53 WBC (4.8-10.8) X10*3/uL RBC (4.20-5.50) X10*6/uL Hgb (12.0-16.0) g/dl Hct (37.0-47.0) % MCV (80.0-98.0) fL MCH (27.0-33.0) pg MCHC (31.0-35.0) g/dl RDW (11.0-16.0) % Plt Count (160-400) X10*3/uL MPV (9.4-12.3) fL Immature Gran % (Auto) (0.0-0.4) % Neut % (Auto) (45-73) % Lymph % (Auto) (20-40) % Cocke % (Auto) (2-11) % Eos % (Auto) (0-4) % Baso % (Auto) (0-2) % Lymph # (Auto) (1.2-4.9) X10*3/uL Cocke # (Auto) (0.1-1.2) X10*3/uL Eos # (Auto) (0.0-0.4) X10*3/uL Baso # (Auto) (0.0-0.2) X10*3/uL Abs Immat Gran (auto) (0.00-0.03) X10*3/uL Absolute Neuts (auto) (2.0-8.3) x10*3/uL Absolute Nucleated RBC (0.0-0.012) X10*3/uL Nucleated RBC % (auto) (0.0-0.2) /100WBC Hold Blue Top SEE NOTE VBG pH 7.61 H* (7.32-7.43) VBG pCO2 33 mmHg VBG pO2 115 mmHg VBG HCO3 33 H (22-26) mmol/L VBG O2 Saturation 99.0 % VBG Base Excess 12.0 mmol/L Sodium 132 L (135-145) mmol/L Potassium 5.8 H (3.3-5.1) mmol/L Chloride 92 L (96-108) mmol/L Carbon Dioxide 35 H (22-29) mmol/L Anion Gap 11 L (12-20) BUN 30 H (9-16) mg/dL Creatinine 0.90 (0.5-1.4) mg/dL Estim Creat Clear Calc 64.9 Estimated GFR > 60 POC Glucose (60-115) mg/dL Random Glucose 373 H* (60-115) mg/dL Calcium 10.5 H D (8.4-10.2) mg/dL Total Bilirubin (0.0-1.0) mg/dL AST (5-31) U/L ALT (0-31) U/L Alkaline Phosphatase (39-117) U/L Troponin I High Sens (<3.5-17.0) ng/L B-Natriuretic Peptide (<100) pg/mL Total Protein (6.5-8.0) g/dL Albumin (3.5-5.0) g/dL Beta-Hydroxybutyrate (0.02-0.27) mmol/L Independent Interpretation I performed an independent interpretation of an: EKG (NOrmal SInusn. Peak T waves.) and Plain X-Ray Radiology Impression Discussion of test interpretation with radiology: I have reviewed the radiologist's reading. External Record Review External record reviewed: Other (Prior Visits) Prescription Management I considered prescription management with: Pain Medication Chronic Conditions Patient?s care impacted by: Diabetes and Hypertension Critical Care Time Critical Care Time Critical Care Time: Yes Total Critical Care Time: 60 Attestation: Hyperkalemia with peak t waves on EKG. albuterol, insulin D5, lokelma, and calcium gluconate ordered Discharge Plan Discharge Clinical Impression: Closed fracture of right ankle, Acute hyperkalemia Patient Disposition: Admitted As Inpatient Interventions: Admission Worksheet (ED) Last Done: 11/15/23 07:10 Discharge Date/Time: 11/15/23 07:49
[2023-11-13 18:13] LABS: Glucose, Whole Blood 367 mg/dL (60-115)
[2023-11-13 18:14] VITALS: RESP 20
[2023-11-13] MEDS: Morphine Sulfate 4 MG/ML CARTRIDGE IVPUSH (18:14)
[2023-11-13 18:58] LABS: Beta-Hydroxybutyrate 0.09 mmol/L (0.02-0.27)
[2023-11-13 19:04] LABS: Troponin-I High Sensitivity < 2.7 ng/L (<3.5-17.0)
[2023-11-13 19:28] VITALS: BP 118/70; PULSE 78; O2SAT 100
[2023-11-13 19:28] LABS: Basophils Percent Auto 0.1 % (0-2); Lymphocytes Absolute Auto 0.6 X10*3/uL (1.2-4.9); Lymphocytes Percent Auto 6.4 % (20-40); Mean Platelet Volume 11.7 fL (9.4-12.3); PLT CLUMP 1; SCAN SMEAR FLAG 1
[2023-11-13 19:29] LABS: Alanine Aminotransferase 48 U/L (0-31); Albumin Level 3.6 g/dL (3.5-5.0); Alkaline Phosphatase 66 U/L (39-117); Anion Gap 14 (12-20); Aspartate Amino Transferase 17 U/L (5-31); Bilirubin Total 0.3 mg/dL (0.0-1.0); Blood Urea Nitrogen 31 mg/dL (9-16); Calcium 9.2 mg/dL (8.4-10.2); Carbon Dioxide 31 mmol/L (22-29); Chloride 94 mmol/L (96-108); Creatinine Clr Calc Pharmacy 65.5; Estimated Glomerular Filt Rate > 60; Glucose Random 399 mg/dL (60-115); Potassium 6.6 mmol/L (3.3-5.1); Sodium 132 mmol/L (135-145); Total Protein 6.8 g/dL (6.5-8.0)
[2023-11-13 19:30] LABS: Hematocrit 40.8 % (37.0-47.0); Hemoglobin 12.2 g/dl (12.0-16.0); Imm Gran Abs Auto 0.11 X10*3/uL (0.00-0.03); Imm Gran Pct Auto 1.1 % (0.0-0.4); Mean Corpuscular HGB Conc 29.9 g/dl (31.0-35.0); Mean Corpuscular Hemoglobin 29.4 pg (27.0-33.0); Mean Corpuscular Volume 98.3 fL (80.0-98.0); Monocytes Absolute Auto 0.7 X10*3/uL (0.1-1.2); Neutrophils Absolute Auto 8.4 x10*3/uL (2.0-8.3); Neutrophils Percent Auto 85.4 % (45-73); Red Blood Count 4.15 X10*6/uL (4.20-5.50); Red Cell Distribution Width 12.1 % (11.0-16.0)
--- NOTE | 2023-11-13 19:33 | PC.NURSE ---
Patient difficult stick, redraw completed by this RN with butterfly. Patient repositioned, purewick applied.
[2023-11-13 19:40] LABS: White Blood Count 9.8 X10*3/uL (4.8-10.8)
[2023-11-13 19:41] LABS: MANUAL DIFF FLAG NO; Platelet Count 113 X10*3/uL (160-400)
[2023-11-13 19:42] LABS: B Type Natriuretic Peptide 82 pg/mL (<100)
[2023-11-13 19:57] VITALS: BP 118/70; PULSE 78; RESP 17; O2SAT 93
[2023-11-13] MEDS: Dextrose 50 % 25 GM/50 ML SYRINGE IVPUSH (20:10)
[2023-11-13] MEDS: Calcium Gluconate/NaCl,Iso-Osm 2 GM/100 ML PLAST..BAG IV (20:10)
[2023-11-13] MEDS: Sodium Zirconium Cyclosilicate 10 GM POWD.PACK PO (20:10)
[2023-11-13] MEDS: Insulin Regular, Human 100 UNIT/ML 3 ML VIAL 10 UNIT IVPUSH (20:13)
[2023-11-13] MEDS: Albuterol Sulfate (0.083%) 2.5 MG/3 ML VIAL.NEB 10 MG INHALE (20:27)
[2023-11-13 20:28] VITALS: PULSE 77; O2SAT 93
--- NOTE | 2023-11-13 20:42 | PC.NURSE ---
Splint applied with Parvez PA, patient tolerated procedure well.
--- NOTE | 2023-11-13 21:28 | PHA.MEDREC ---
Pharmacy Consult ? Medication Reconciliation Pharmacy has completed the medication reconciliation. Confirmed medication with list from facility ([facility]
--- NOTE | 2023-11-13 21:29 | PHA.MEDREC ---
Pharmacy Consult ? Medication Reconciliation Pharmacy has completed the medication reconciliation. Confirmed medication with list from facility ([facility]).
[2023-11-13 22:03] LABS: VBG HCO3 33 mmol/L (22-26); VBG pCO2 33 mmHg; VBG pH 7.61 (7.32-7.43); VBG pO2 115 mmHg
[2023-11-13 22:09] LABS: Venous Blood Gas Refer to POC result
--- NOTE | 2023-11-13 22:09 | P.HPHOSP_ITS ---
History of Present Illness Date of Service: 11/13/23 Attending physician on admission: Kassy Black Chief Complaint: mechanical fall, ankle swelling 78-year-old female with history of pulmonary hypertension, chronic hypercapnic respiratory failure/obesity hypoventilation syndrome on 2 L O2 at baseline, heart failure preserved ejection fraction, insulin-dependent type 2 diabetes, NICO compliant with CPAP, who is morbidly obese with BMI greater than 45 presented to the ED earlier today from [facility] where she has been residing for short-term rehab following hospitalization for CHF exacerbation and Sjogren's pneumonitis with discharge on 11/08. She reports standing up from a chair and taking several steps with her walker ambulating to the bathroom when she rolled her right ankle and heard a snap. Fall was witnessed by her and she did not hit her head and her body did not fall fully to the ground. She reports pain and swelling in the right ankle. She states she did feel lightheaded prior to the fall and continues with lightheadedness. No dyspnea, palpitations, chest pain, vision changes, dysuria, hematuria, diarrhea. No fevers or chills. She has reported polyuria and polydipsia and has been experiencing steroid induced hyperglycemia with glucose of 399 on arrival today. She was discharged on prednisone taper due to Sjogren's pneumonitis. On arrival, VSS. No leukocytosis. No anemia. Chronic thrombocytopenia. Renal function baseline, sodium 132, initial potassium 6.6, chloride 94, CO2 31. Troponin below detectable limits, BNP 82. X-ray of the right foot and ankle shows an oblique displaced lateral malleolus fracture with medial ankle mortise widening. EKG shows NSR, rate 68 with peaked t waves in multiple leads and also noted on court recording monitor. In the ED, received albuterol updraft, 2 g calcium gluconate, 10 units regular insulin, 10 g Lokelma, 1 amp D50, and 4 mg morphine. Repeat BMP pending Review of Systems 2 Review of Systems: General: No fevers, malaise, unintentional weight loss HEENT: No blurred vision, diplopia. No sore throat, nasal congestion, rhinorrhea, sinus pain, ear pain Cardiovascular: No chest pain, palpitations, or leg edema Respiratory: No shortness of breath, wheezing, cough GI: No abdominal pain, nausea, vomiting, diarrhea, constipation, melena, hematochezia : No dysuria, hematuria, decreased urinary output Endo: +polyuria, +polydipsia MSK: No myalgia, back pain. +R ankle pain Neuro: No headaches, weakness, paresthesias. +lightheadedness Skin: No rashes or lesions [facility] Medical History Pneumonitis Pulmonary hypertension Hypertensive cardiovascular disease Acute hypoxic on chronic hypercapnic respiratory failure Acute on chronic respiratory failure with hypoxemia Obesity hypoventilation syndrome NICO (obstructive sleep apnea) GERD (gastroesophageal reflux disease) Hypertension Diabetes mellitus COPD (chronic obstructive pulmonary disease) Family History Mother Diabetes Surgical History S/P laparoscopic cholecystectomy (07/14/21) Social History Household Members: Family Housing: Unknown / Unable to assess Do you presently have visiting nurse or other home services: Yes Patient Tobacco Use Status: Former Tobacco user Tobacco use type: Cigarette Years Smoked: 20 Smoked in Last 30 Days: No Advance Directives: No Advance Directives Information Provided: No service: No Current occupational status: unemployed and disabled Meds Allergies Allergy/AdvReac Type Severity Reaction Status Date / Time No Known Allergies Allergy Verified 11/13/23 16:51 [No Known Allergies*] Active Medications: Current Medications Albuterol Sulfate (Albuterol Sulfate 90 Mcg 8 Gm Inhaler) 2 puff INHALE Q6H PRN PRN Reason: Wheezing Bisacodyl (Bisacodyl 10 Mg Supp.Rect) 10 mg [place] DAILY PRN PRN Reason: Constipation Carvedilol (Carvedilol 12.5 Mg Tablet) 12.5 mg PO BID TIMOTHY; Protocol Dextrose (Dextrose 50 % 25 Gm/50 Ml Syringe) 25 gm IVPUSH Q15M PRN; Protocol PRN Reason: per Hypoglycemia Standing Ord. Ergocalciferol (Ergocalciferol (Vitamin D2) 1,250 Mcg Capsule) 1,250 mcg PO MO TIMOTHY Famotidine (Famotidine 20 Mg Tablet) 20 mg PO BID TIMOTHY Furosemide (Furosemide 40 Mg Tablet) 40 mg PO DAILY TIMOTHY; Protocol Glucose (Glucose Gel 15 Gm Gel..Gram.) 15 gm PO Q15M PRN; Protocol PRN Reason: per Hypoglycemia Standing Ord. Sodium Chloride (Ns) 500 mls @ 500 mls/hr IV .Q1H TIMOTHY Stop: 11/13/23 22:59 Insulin Human Lispro (Insulin Lispro 100 Unit/Ml 3 Ml Vial) 0 unit SUBCUT QIDACHS TIMOTHY; Protocol Non-Formulary Medication (Magnesium Hydroxide [Milk Of Magnesia Concentrated]) 30 ml PO DAILY PRN PRN Reason: Constipation Non-Formulary Medication (Pantoprazole) 40 mg PO QAM [facility] Pravastatin Sodium (Pravastatin Sodium 40 Mg Tablet) 40 mg PO BEDTIME TIMOTHY Prednisone (Prednisone 20 Mg Tablet) 30 mg PO DAILY TIMOTHY; Taper Stop: 11/29/23 08:59 Sodium Biphosphate/Sodium Phosphate (Sodium Phosphate,[place]-Dibasic 133 Ml Enema) 118 ml [place] DAILY PRN PRN Reason: Constipation Home Medications Medication Instructions Recorded Confirmed Last Taken Type losartan 100 mg tablet 1 tab PO QAM 07/12/21 11/13/23 11/01/23 History lancets 33 gauge (TRUEplus Lancets) #100 ea 09/20/21 02/19/22 History sitagliptin phos 50 mg-metformin 1 tab PO DAILY 02/20/22 11/13/23 11/01/23 History ER 1,000 mg tablet,extend rel 24h mp (Janumet XR) spironolactone 25 mg tablet 25 mg PO QAM 11/15/22 11/13/23 11/01/23 History furosemide 40 mg tablet 40 mg PO QAM 05/11/23 11/13/23 11/01/23 History albuterol sulfate 90 mcg/actuation 2 puff inhalation Q6H PRN Wheezing 11/02/23 11/13/23 11/01/23 History aerosol inhaler ergocalciferol (vitamin D2) 1,250 1,250 mcg PO MO 11/02/23 11/13/23 11/01/23 History mcg (50,000 unit) capsule famotidine 20 mg tablet 20 mg PO BID 11/02/23 11/13/23 11/01/23 History pantoprazole 40 mg tablet,delayed 40 mg PO QAM 11/02/23 11/13/23 11/01/23 History release pravastatin 40 mg tablet 40 mg PO QPM 11/02/23 11/13/23 11/01/23 History acetaminophen 325 mg capsule 650 mg PO Q4H PRN pain or fever 11/13/23 11/13/23 Unknown History (Tylenol) acetaminophen 650 mg rectal 650 mg WY Q4H PRN Pain or fever 11/13/23 11/13/23 Unknown History suppository bisacodyl 10 mg rectal suppository 10 mg WY DAILY PRN Constipation 11/13/23 11/13/23 Unknown History insulin aspart U-100 100 unit/mL 0 sliding scale dose subcut BID 11/13/23 11/13/23 Unknown History subcutaneous solution (Novolog diabetes U-100 Insulin aspart) magnesium hydroxide 2,400 mg/10 mL 30 ml PO DAILY PRN Constipation 11/13/23 11/13/23 Unknown History oral suspension (Milk Of Magnesia Concentrated) prednisone 20 mg tablet See Taper PO DAILY 11/13/23 11/13/23 Unknown History sodium phosphates 19 gram-7 118 ml WY DAILY PRN Constipation 11/13/23 11/13/23 Unknown History gram/118 mL enema (Fleet Enema) Physical Exam 2 Vital Signs and Narrative: Vital Signs: Last Vital Signs Temp 98.4 F 11/13/23 16:48 Pulse 77 11/13/23 20:28 Resp 17 11/13/23 19:57 BP 118/70 11/13/23 19:57 Pulse Ox 93 11/13/23 19:57 O2 Del Method Room Air 11/13/23 19:57 Oxygen Flow Rate 2 11/13/23 16:48 BMI result Body Mass Index 45.9 Constitutional - Awake and Alert, No apparent distress Eyes - PERRLA, EOMI Cardiovascular - S1S2, RRR, No edema Respiratory - Normal lung expansion, Normal respiratory effort, No respiratory distress, CTA bilaterally Gastrointestinal - NT / ND; +BS; No rebound or guarding Extremities - no calf tenderness bilaterally, no swelling Musculoskeletal - R ankle immobilized with sensation in tact Skin - Warm/Dry Neurological - Alert & oriented x3 Psychological - Appropriate affect Results Labs 11/13/23 19:12 11/13/23 21:35 Labs: Laboratory Results - last 24 hr 11/13/23 11/13/23 11/13/23 16:51 18:37 19:12 MCV 98.3 H MCH 29.4 MCHC 29.9 L RDW 12.1 Plt Count 113 L D MPV 11.7 Immature Gran % (Auto) 1.1 H Neut % (Auto) 85.4 H Lymph % (Auto) 6.[address] [place] % (Auto) 7.0 Eos % (Auto) 0.0 Baso % (Auto) 0.1 Lymph # (Auto) 0.[address] [place] # (Auto) 0.7 Eos # (Auto) 0.0 Baso # (Auto) 0.0 Abs Immat Gran (auto) 0.11 H Absolute Neuts (auto) 8.4 H Absolute Nucleated RBC 0.000 Nucleated RBC % (auto) 0.0 Hold Blue Top VBG pH VBG pCO2 VBG pO2 VBG HCO3 VBG O2 Saturation VBG Base Excess Anion Gap 14 Estim Creat Clear Calc 65.5 Estimated GFR > 60 POC Glucose 367 H* Random Glucose 399 H* Calcium 9.2 Total Bilirubin 0.3 AST 17 ALT 48 H Alkaline Phosphatase 66 Troponin I High Sens < 2.7 D B-Natriuretic Peptide 82 Total Protein 6.8 Albumin 3.6 Beta-Hydroxybutyrate 0.09 11/13/23 11/13/23 19:15 21:53 MCV MCH MCHC RDW Plt Count MPV Immature Gran % (Auto) Neut % (Auto) Lymph % (Auto) [place] % (Auto) Eos % (Auto) Baso % (Auto) Lymph # (Auto) [place] # (Auto) Eos # (Auto) Baso # (Auto) Abs Immat Gran (auto) Absolute Neuts (auto) Absolute Nucleated RBC Nucleated RBC % (auto) Hold Blue Top SEE NOTE VBG pH 7.61 H* VBG pCO2 33 VBG pO2 115 VBG HCO3 33 H VBG O2 Saturation 99.0 VBG Base Excess 12.0 Anion Gap Estim Creat Clear Calc Estimated GFR POC Glucose Random Glucose Calcium Total Bilirubin AST ALT Alkaline Phosphatase Troponin I High Sens B-Natriuretic Peptide Total Protein Albumin Beta-Hydroxybutyrate Imaging Radiologist's Impressions: Impressions Ankle X-Ray 11/13/23 17:38 IMPRESSION: RIGHT FOOT: No fracture or dislocation. RIGHT ANKLE: Oblique displaced lateral malleolus fracture. Medial ankle mortise widening. Foot X-Ray 11/13/23 17:38 IMPRESSION: RIGHT FOOT: No fracture or dislocation. RIGHT ANKLE: Oblique displaced lateral malleolus fracture. Medial ankle mortise widening. Assessment and Plan (1) Hyperkalemia: Status: Acute (2) Closed right ankle fracture: Status: Acute Plan 78-year-old female with history of pulmonary hypertension, chronic hypercapnic respiratory failure/obesity hypoventilation syndrome on 2 L O2 at baseline, heart failure preserved ejection fraction, insulin-dependent type 2 diabetes, NICO compliant with CPAP, who is morbidly obese with BMI greater than 45 admitted for further management of R ankle fracture and hyperkalemia. #Acute hyperkalemia -likely related to steroid induced hyperglycemia complicated by losartan and spironolactone use -K 6.6 -continue telemetry monitoring, peaked T-waves noted on monitor. Received calcium gluconate in ED -also received 10 units regular insulin, 1 amp D50, albuterol. Repeat BMP pending -follow lytes -hold losartan, spironolactone # lightheadedness -suspect related to dehydration associated with hyperglycemia -less likely related to fall which appears to be mechanical in nature -give 500 mL IV NS -consider orthostatic vital signs a.m. # right ankle fracture due to suspected mechanical fall -orthopedic surgery consult -pain management p.r.n. -out of bed with assist -pt eval post-operatively # insulin-dependent type 2 diabetes with steroid induced hyperglycemia -add Lantus 20 units nightly -diabetic diet, POC glucose, Humalog sliding scale #Pseudohyponatremia -due to hyperglycemia # chronic hypercapnic respiratory failure with obesity hypoventilation syndrome -continue home 2 L supplemental O2 # heart failure preserved ejection fraction -clinically euvolemic on exam -continue p.o. Lasix a.m. # NICO -CPAP bedtime # hypertension -hold losartan, spironolactone as above. Can continue Lasix # morbid obesity with BMI greater than 45 -encourage weight loss efforts DVT prophylaxis-heparin Full code Patient requires inpatient stay at least 2 midnights for management of hyperkalemia related to hyperglycemia requiring IV insulin, close monitoring renal function and electrolyte levels as well as close cardiac monitoring and expert consultation for repair of ankle fracture Quality Stroke Does the patient have a stroke diagnosis?: No VTE Prior VTE?: No VTE Risk Level:: Medical - moderate - high VTE Device Contraindication: Treatment Not Indicated VTE Drug Contraindication: N/A - Med Ordered
[2023-11-13 22:29] LABS: Anion Gap 11 (12-20); Blood Urea Nitrogen 30 mg/dL (9-16); Calcium 10.5 mg/dL (8.4-10.2); Carbon Dioxide 35 mmol/L (22-29); Chloride 92 mmol/L (96-108); Creatinine Clr Calc Pharmacy 64.9; Estimated Glomerular Filt Rate > 60; Glucose Random 373 mg/dL (60-115); Potassium 5.8 mmol/L (3.3-5.1); Sodium 132 mmol/L (135-145)
[2023-11-13 22:31] LABS: Glucose, Whole Blood 300 mg/dL (60-115)
[2023-11-13] MEDS: carvediloL 12.5 MG TABLET PO (22:46)
[2023-11-13] MEDS: Heparin Sodium,Porcine 5,000 UNIT/ML VIAL 5000 UNIT SUBCUT (22:46)
[2023-11-13] MEDS: Famotidine 20 MG TABLET PO (22:46)
[2023-11-13] MEDS: Pravastatin Sodium 40 MG TABLET PO (22:46)
[2023-11-13] MEDS: Insulin Glargine,Hum.rec.anlog 100 UNIT/ML 10 ML VIAL 20 UNIT SUBCUT (22:46)
[2023-11-13] MEDS: 0.9 % Sodium Chloride 500 ML IV (22:47)
--- NOTE | 2023-11-13 23:07 | PC.NURSE ---
Pm meds given per nov, patient resting quietly on stretcher at this time
--- NOTE | 2023-11-13 23:28 | PC.NURSE ---
This RN took over pt care @ 2320. Pt sitting in bed watching TV, no signs of distress. Plan of care ongoing.
[2023-11-14] VITALS (10 sets, daily range): BP systolic 105–138; BP diastolic 51–79; PULSE 70–85; RESP 13–23; TEMP 36.4–36.9; O2SAT 88–100
[2023-11-14 05:55] LABS: MANUAL DIFF FLAG NO
[2023-11-14] MEDS: Omeprazole 20 MG CAPSULE.DR PO (06:05)
[2023-11-14 06:08] LABS: Basophils Percent Auto 0.1 % (0-2); Eosinophils Percent Auto 0.1 % (0-4); Hematocrit 37.4 % (37.0-47.0); Hemoglobin 11.6 g/dl (12.0-16.0); Imm Gran Abs Auto 0.08 X10*3/uL (0.00-0.03); Imm Gran Pct Auto 0.7 % (0.0-0.4); Lymphocytes Absolute Auto 1.6 X10*3/uL (1.2-4.9); Lymphocytes Percent Auto 14.1 % (20-40); Mean Corpuscular Hemoglobin 29.8 pg (27.0-33.0); Mean Corpuscular Volume 96.1 fL (80.0-98.0); Mean Platelet Volume 11.6 fL (9.4-12.3); Monocytes Absolute Auto 1.5 X10*3/uL (0.1-1.2); Monocytes Percent Auto 13.4 % (2-11); Neutrophils Percent Auto 71.6 % (45-73); Platelet Count 109 X10*3/uL (160-400); Red Blood Count 3.89 X10*6/uL (4.20-5.50); Red Cell Distribution Width 12.1 % (11.0-16.0); White Blood Count 11.2 X10*3/uL (4.8-10.8)
--- NOTE | 2023-11-14 06:11 | PC.NURSE ---
Pt medicated per nov. Plan of care ongoing.
[2023-11-14 06:16] LABS: Anion Gap 11 (12-20); Blood Urea Nitrogen 28 mg/dL (9-16); Calcium 9.2 mg/dL (8.4-10.2); Carbon Dioxide 37 mmol/L (22-29); Chloride 92 mmol/L (96-108); Creatinine Clr Calc Pharmacy 75.7; Estimated Glomerular Filt Rate > 60; Glucose Random 217 mg/dL (60-115); Potassium 5.8 mmol/L (3.3-5.1); Sodium 134 mmol/L (135-145)
[2023-11-14 07:14] LABS: Glucose, Whole Blood 167 mg/dL (60-115)
[2023-11-14] MEDS: 0.9 % Sodium Chloride Flush 3 ML SYRINGE IVFLUSH ×2 (07:30→23:19)
--- NOTE | 2023-11-14 07:43 | PC.NURSE ---
CPAP on and pt with nad, skin wpd, alert, now eating breakfast, spo2 went down to 88% and placed on 2lpm nc, pt denies sob, no complaints
[2023-11-14] MEDS: carvediloL 12.5 MG TABLET PO ×2 (07:51→21:50)
[2023-11-14] MEDS: Furosemide 40 MG TABLET PO (07:51)
[2023-11-14] MEDS: Famotidine 20 MG TABLET PO ×2 (07:51→21:47)
[2023-11-14] MEDS: predniSONE 20 MG TABLET 30 MG PO (07:52)
[2023-11-14] MEDS: Sodium Zirconium Cyclosilicate 10 GM POWD.PACK PO ×3 (07:54→18:55)
--- NOTE | 2023-11-14 08:37 | P.CONOP_ITS ---
History of Present Illness HPI Consult date: 11/14/23 Chief complaint: Mechanical fall, ankle fracture, hyperkalemia Narrative: 78-year-old female with history of pulmonary hypertension, chronic hypercapnic respiratory failure/obesity hypoventilation syndrome on 2 L O2 at baseline, heart failure preserved ejection fraction, insulin-dependent type 2 diabetes, NICO compliant with CPAP, who is morbidly obese with BMI greater than 45 presented to the ED from [facility] where she has been residing for short-term rehab following hospitalization for CHF exacerbation and Sjogren's pneumonitis with discharge on 11/08. She reports standing up from a chair and taking several steps with her walker ambulating to the bathroom when she rolled her right ankle and heard a snap. PER ED notes Fall was witnessed by her and she did not hit her head and her body did not fall fully to the ground. Her sugars in the ED were 399 due to prednisone from recent discharge. X-ray of the right foot and ankle shows an oblique displaced lateral malleolus fracture with medial ankle mortise widening. She was admitted to the medical service for further medical workup and orthopedics was consulted for right ankle fracture. Review of Systems 2 Review of Systems: per [facility] Past Medical History Medical History Pneumonitis Pulmonary hypertension Hypertensive cardiovascular disease Acute hypoxic on chronic hypercapnic respiratory failure Acute on chronic respiratory failure with hypoxemia Obesity hypoventilation syndrome NICO (obstructive sleep apnea) GERD (gastroesophageal reflux disease) Hypertension Diabetes mellitus COPD (chronic obstructive pulmonary disease) Family History Family History Mother Diabetes Surgical History Surgical History S/P laparoscopic cholecystectomy (07/14/21) Social History Social History Household Members: Family Housing: Unknown / Unable to assess Do you presently have visiting nurse or other home services: Yes Patient Tobacco Use Status: Former Tobacco user Tobacco use type: Cigarette Years Smoked: 20 Smoked in Last 30 Days: No Advance Directives: No Advance Directives Information Provided: No service: No Current occupational status: unemployed and disabled Meds Allergies Allergy/AdvReac Type Severity Reaction Status Date / Time No Known Allergies Allergy Verified 11/13/23 16:51 [No Known Allergies*] Active Medications: Current Medications Albuterol Sulfate (Albuterol Sulfate 90 Mcg 8 Gm Inhaler) 2 puff INHALE Q6H PRN PRN Reason: Wheezing Bisacodyl (Bisacodyl 10 Mg Supp.Rect) 10 mg WV DAILY PRN PRN Reason: Constipation Carvedilol (Carvedilol 12.5 Mg Tablet) 12.5 mg PO BID [facility]; Protocol Last Admin: 11/14/23 07:51 Dose: 12.5 mg Dextrose (Dextrose 50 % 25 Gm/50 Ml Syringe) 25 gm IVPUSH Q15M PRN; Protocol PRN Reason: per Hypoglycemia Standing Ord. Ergocalciferol (Ergocalciferol (Vitamin D2) 1,250 Mcg Capsule) 1,250 mcg PO MO [facility] Famotidine (Famotidine 20 Mg Tablet) 20 mg PO BID [facility] Last Admin: 11/14/23 07:51 Dose: 20 mg Furosemide (Furosemide 40 Mg Tablet) 40 mg PO DAILY [facility]; Protocol Last Admin: 11/14/23 07:51 Dose: 40 mg Glucose (Glucose Gel 15 Gm Gel..Gram.) 15 gm PO Q15M PRN; Protocol PRN Reason: per Hypoglycemia Standing Ord. Heparin Sodium (Porcine) (Heparin Sodium,Porcine 5,000 Unit/Ml Vial) 5,000 unit SUBCUT Q12H [facility] Last Admin: 11/13/23 22:46 Dose: 5,000 unit Insulin Glargine (Insulin Glargine,Hum.Rec.Anlog 100 Unit/Ml 10 Ml Vial) 20 unit SUBCUT BEDTIME [facility] Last Admin: 11/13/23 22:46 Dose: 20 unit Insulin Human Lispro (Insulin Lispro 100 Unit/Ml 3 Ml Vial) 0 unit SUBCUT QIDACHS [facility]; Protocol Last Admin: 11/14/23 07:34 Dose: Not Given Magnesium Hydroxide (Milk Of Magnesia 30 Ml Oral.Susp) 30 ml PO DAILY PRN PRN Reason: Constipation Omeprazole (Omeprazole 20 Mg Capsule.Dr) 20 mg PO DAILY@0630 [facility] Last Admin: 11/14/23 06:05 Dose: 20 mg Oxycodone HCl (Oxycodone Hcl Immed Release 5 Mg Tablet) 5 mg PO Q4H PRN PRN Reason: Pain, Severe (Pain Scale 7-10) Pravastatin Sodium (Pravastatin Sodium 40 Mg Tablet) 40 mg PO BEDTIME [facility] Last Admin: 11/13/23 22:46 Dose: 40 mg Prednisone (Prednisone 20 Mg Tablet) 30 mg PO DAILY [facility]; Taper Stop: 11/29/23 08:59 Last Admin: 11/14/23 07:52 Dose: 30 mg Sodium Biphosphate/Sodium Phosphate (Sodium Phosphate,[place]-Dibasic 133 Ml Enema) 118 ml WV DAILY PRN PRN Reason: Constipation Sodium Chloride (0.9 % Sodium Chloride Flush 3 Ml Syringe) 3 ml IVFLUSH QSHIFT [facility] Last Admin: 11/14/23 07:30 Dose: 3 ml Home Medications Medication Instructions Recorded Confirmed Last Taken Type losartan 100 mg tablet 1 tab PO QAM 07/12/21 11/13/23 11/01/23 History lancets 33 gauge (TRUEplus Lancets) #100 ea 09/20/21 02/19/22 History sitagliptin phos 50 mg-metformin 1 tab PO DAILY 02/20/22 11/13/23 11/01/23 History ER 1,000 mg tablet,extend rel 24h mp (Janumet XR) spironolactone 25 mg tablet 25 mg PO QAM 11/15/22 11/13/23 11/01/23 History furosemide 40 mg tablet 40 mg PO QAM 05/11/23 11/13/23 11/01/23 History albuterol sulfate 90 mcg/actuation 2 puff inhalation Q6H PRN Wheezing 11/02/23 11/13/23 11/01/23 History aerosol inhaler ergocalciferol (vitamin D2) 1,250 1,250 mcg PO MO 11/02/23 11/13/23 11/01/23 History mcg (50,000 unit) capsule famotidine 20 mg tablet 20 mg PO BID 11/02/23 11/13/23 11/01/23 History pantoprazole 40 mg tablet,delayed 40 mg PO QAM 11/02/23 11/13/23 11/01/23 History release pravastatin 40 mg tablet 40 mg PO QPM 11/02/23 11/13/23 11/01/23 History acetaminophen 325 mg capsule 650 mg PO Q4H PRN pain or fever 11/13/23 11/13/23 Unknown History (Tylenol) acetaminophen 650 mg rectal 650 mg WV Q4H PRN Pain or fever 11/13/23 11/13/23 Unknown History suppository bisacodyl 10 mg rectal suppository 10 mg WV DAILY PRN Constipation 11/13/23 11/13/23 Unknown History insulin aspart U-100 100 unit/mL 0 sliding scale dose subcut BID 11/13/23 11/13/23 Unknown History subcutaneous solution (Novolog diabetes U-100 Insulin aspart) magnesium hydroxide 2,400 mg/10 mL 30 ml PO DAILY PRN Constipation 11/13/23 11/13/23 Unknown History oral suspension (Milk Of Magnesia Concentrated) prednisone 20 mg tablet See Taper PO DAILY 11/13/23 11/13/23 Unknown History sodium phosphates 19 gram-7 118 ml WV DAILY PRN Constipation 11/13/23 11/13/23 Unknown History gram/118 mL enema (Fleet Enema) Physical Exam 2 Vital Signs: Vital Signs: Last Vital Signs Temp 98.0 F 11/14/23 08:05 Pulse 73 11/14/23 08:05 Resp 23 H 11/14/23 08:05 BP 138/55 L 11/14/23 08:05 Pulse Ox 100 11/14/23 08:05 O2 Del Method Nasal Cannula 11/14/23 08:05 O2 Flow Rate 2 11/14/23 08:05 Oxygen Flow Rate 2 11/13/23 16:48 BMI result Body Mass Index 45.9 Const: General: cooperative, healthy appearing, comfortable and no acute distress Extrem: Other: Right ankle splint intact - toes are of good color and sensation. Cap refil intact. Results Labs 11/14/23 05:32 11/14/23 05:32 Labs: Abnormal lab results 11/13/23 11/13/23 11/13/23 Range/Units 16:51 18:37 19:12 WBC (4.8-10.8) X10*3/uL RBC 4.15 L (4.20-5.50) X10*6/uL Hgb (12.0-16.0) g/dl MCV 98.3 H (80.0-98.0) fL MCHC 29.9 L (31.0-35.0) g/dl Plt Count 113 L D (160-400) X10*3/uL Immature Gran % (Auto) 1.1 H (0.0-0.4) % Neut % (Auto) 85.4 H (45-73) % Lymph % (Auto) 6.4 L (20-40) % [place] % (Auto) (2-11) % Lymph # (Auto) 0.6 L (1.2-4.9) X10*3/uL [place] # (Auto) (0.1-1.2) X10*3/uL Abs Immat Gran (auto) 0.11 H (0.00-0.03) X10*3/uL Absolute Neuts (auto) 8.4 H (2.0-8.3) x10*3/uL VBG pH (7.32-7.43) VBG HCO3 (22-26) mmol/L Sodium 132 L (135-145) mmol/L Potassium 6.6 H* D (3.3-5.1) mmol/L Chloride 94 L (96-108) mmol/L Carbon Dioxide 31 H (22-29) mmol/L Anion Gap (12-20) BUN 31 H (9-16) mg/dL POC Glucose 367 H* (60-115) mg/dL Random Glucose 399 H* (60-115) mg/dL Calcium (8.4-10.2) mg/dL ALT 48 H (0-31) U/L 11/13/23 11/13/23 11/13/23 Range/Units 21:35 21:53 22:28 WBC (4.8-10.8) X10*3/uL RBC (4.20-5.50) X10*6/uL Hgb (12.0-16.0) g/dl MCV (80.0-98.0) fL MCHC (31.0-35.0) g/dl Plt Count (160-400) X10*3/uL Immature Gran % (Auto) (0.0-0.4) % Neut % (Auto) (45-73) % Lymph % (Auto) (20-40) % [place] % (Auto) (2-11) % Lymph # (Auto) (1.2-4.9) X10*3/uL [place] # (Auto) (0.1-1.2) X10*3/uL Abs Immat Gran (auto) (0.00-0.03) X10*3/uL Absolute Neuts (auto) (2.0-8.3) x10*3/uL VBG pH 7.61 H* (7.32-7.43) VBG HCO3 33 H (22-26) mmol/L Sodium 132 L (135-145) mmol/L Potassium 5.8 H (3.3-5.1) mmol/L Chloride 92 L (96-108) mmol/L Carbon Dioxide 35 H (22-29) mmol/L Anion Gap 11 L (12-20) BUN 30 H (9-16) mg/dL POC Glucose 300 H (60-115) mg/dL Random Glucose 373 H* (60-115) mg/dL Calcium 10.5 H D (8.4-10.2) mg/dL ALT (0-31) U/L 11/14/23 11/14/23 Range/Units 05:32 07:11 WBC 11.2 H (4.8-10.8) X10*3/uL RBC 3.89 L (4.20-5.50) X10*6/uL Hgb 11.6 L (12.0-16.0) g/dl MCV (80.0-98.0) fL MCHC (31.0-35.0) g/dl Plt Count 109 L (160-400) X10*3/uL Immature Gran % (Auto) 0.7 H (0.0-0.4) % Neut % (Auto) (45-73) % Lymph % (Auto) 14.1 L (20-40) % [place] % (Auto) 13.4 H (2-11) % Lymph # (Auto) (1.2-4.9) X10*3/uL [place] # (Auto) 1.5 H (0.1-1.2) X10*3/uL Abs Immat Gran (auto) 0.08 H (0.00-0.03) X10*3/uL Absolute Neuts (auto) (2.0-8.3) x10*3/uL VBG pH (7.32-7.43) VBG HCO3 (22-26) mmol/L Sodium 134 L (135-145) mmol/L Potassium 5.8 H (3.3-5.1) mmol/L Chloride 92 L (96-108) mmol/L Carbon Dioxide 37 H (22-29) mmol/L Anion Gap 11 L (12-20) BUN 28 H (9-16) mg/dL POC Glucose 167 H (60-115) mg/dL Random Glucose 217 H (60-115) mg/dL Calcium (8.4-10.2) mg/dL ALT (0-31) U/L H & H 11/13/23 11/14/23 Range/Units 19:12 05:32 Hgb 12.2 11.6 L (12.0-16.0) g/dl Hct 40.8 37.4 (37.0-47.0) % All other labs normal. Assessment and Plan (1) Closed right ankle fracture: Status: Acute Plan Right ankle splint to remain intact- NWB Patient is considered high risk due to Diabetes, CHF, Respiratory failure on home O2 I discussed the risk, benefits and alternatives --risk including but not limited to poor wound healing, CHF exacerbation, Respiratory distress, poor bone healing. She will discuss with her family to get their input and I will await Dr Juarez recommendations. Procedures Date of Service Date of Service: 11/14/23
--- NOTE | 2023-11-14 09:16 | PC.NURSE ---
no distress, resting in bed. talking on phone.
--- NOTE | 2023-11-14 09:45 | PC.NURSE ---
messaged ortho pa re: pain med per pt request r/t r leg pain. +CMS. elevated w pillow at this time. alejandra wrap/dressing in place.
[2023-11-14] MEDS: oxyCODONE HCl Immed Release 5 MG TABLET PO (09:49)
--- NOTE | 2023-11-14 09:55 | HO.PM.IMPN ---
Subjective Subjective Date of Service: 11/14/23 Review of Systems Follow up fall, ankle fx doing ok, minimal pain at this time Physical Exam Vital Signs: Vital Signs: Last Vital Signs Temp 97.9 F 11/14/23 09:14 Pulse 75 11/14/23 09:14 Resp 15 11/14/23 09:14 BP 132/62 11/14/23 09:14 Pulse Ox 100 11/14/23 09:14 O2 Del Method Nasal Cannula 11/14/23 09:14 O2 Flow Rate 2 11/14/23 09:14 Oxygen Flow Rate 2 11/13/23 16:48 BMI result Body Mass Index 45.9 Appearing in no acute distress lung sounds are clear to auscultation heart regular rate rhythm, clear S1, S2 positive bowel sounds, abdomen is soft, nontender neuro patient is alert x3, no focal deficits Splint right foot Objective Data Active Medications Albuterol Sulfate (Albuterol Sulfate 90 Mcg 8 Gm Inhaler) 2 puff INHALE Q6H PRN PRN Reason: Wheezing Bisacodyl (Bisacodyl 10 Mg Supp.Rect) 10 mg MD DAILY PRN PRN Reason: Constipation Carvedilol (Carvedilol 12.5 Mg Tablet) 12.5 mg PO BID [facility]; Protocol Last Admin: 11/14/23 07:51 Dose: 12.5 mg Documented By: JENNIFER Dextrose (Dextrose 50 % 25 Gm/50 Ml Syringe) 25 gm IVPUSH Q15M PRN; Protocol PRN Reason: per Hypoglycemia Standing Ord. Ergocalciferol (Ergocalciferol (Vitamin D2) 1,250 Mcg Capsule) 1,250 mcg PO [facility] Famotidine (Famotidine 20 Mg Tablet) 20 mg PO BID [facility] Last Admin: 11/14/23 07:51 Dose: 20 mg Documented By: JENNIFER Furosemide (Furosemide 40 Mg Tablet) 40 mg PO DAILY [facility]; Protocol Last Admin: 11/14/23 07:51 Dose: 40 mg Documented By: JENNIFER Glucose (Glucose Gel 15 Gm Gel..Gram.) 15 gm PO Q15M PRN; Protocol PRN Reason: per Hypoglycemia Standing Ord. Heparin Sodium (Porcine) (Heparin Sodium,Porcine 5,000 Unit/Ml Vial) 5,000 unit SUBCUT Q12H [facility] Last Admin: 11/13/23 22:46 Dose: 5,000 unit Documented By: VIDA Insulin Glargine (Insulin Glargine,Hum.Rec.Anlog 100 Unit/Ml 10 Ml Vial) 20 unit SUBCUT BEDTIME [facility] Last Admin: 11/13/23 22:46 Dose: 20 unit Documented By: VIDA Insulin Human Lispro (Insulin Lispro 100 Unit/Ml 3 Ml Vial) 0 unit SUBCUT QIDACHS [facility]; Protocol Last Admin: 11/14/23 07:34 Dose: Not Given Documented By: JENNIFER Non-Admin Reason: See Note Magnesium Hydroxide (Milk Of Magnesia 30 Ml Oral.Susp) 30 ml PO DAILY PRN PRN Reason: Constipation Omeprazole (Omeprazole 20 Mg Capsule.Dr) 20 mg PO DAILY@0630 [facility] Last Admin: 11/14/23 06:05 Dose: 20 mg Documented By: LAURA Oxycodone HCl (Oxycodone Hcl Immed Release 5 Mg Tablet) 5 mg PO Q4H PRN PRN Reason: Pain, Severe (Pain Scale 7-10) Last Admin: 11/14/23 09:49 Dose: 5 mg Documented By: SHAYY Pravastatin Sodium (Pravastatin Sodium 40 Mg Tablet) 40 mg PO BEDTIME [facility] Last Admin: 11/13/23 22:46 Dose: 40 mg Documented By: VIDA Prednisone (Prednisone 20 Mg Tablet) 30 mg PO DAILY [facility]; Taper Stop: 11/29/23 08:59 Last Admin: 11/14/23 07:52 Dose: 30 mg Documented By: JENNIFER Sodium Biphosphate/Sodium Phosphate (Sodium Phosphate,[place]-Dibasic 133 Ml Enema) 118 ml MD DAILY PRN PRN Reason: Constipation Sodium Chloride (0.9 % Sodium Chloride Flush 3 Ml Syringe) 3 ml IVFLUSH QSHIFT [facility] Last Admin: 11/14/23 07:30 Dose: 3 ml Documented By: JENNIFER Labs 11/14/23 05:32 11/14/23 11:59 Labs: Laboratory Results - last 24 hr 11/13/23 11/13/23 11/13/23 16:51 18:37 19:12 MCV 98.3 H MCH 29.4 MCHC 29.9 L RDW 12.1 Plt Count 113 L D MPV 11.7 Immature Gran % (Auto) 1.1 H Neut % (Auto) 85.4 H Lymph % (Auto) 6.4 L [place] % (Auto) 7.0 Eos % (Auto) 0.0 Baso % (Auto) 0.1 Lymph # (Auto) 0.6 L [place] # (Auto) 0.7 Eos # (Auto) 0.0 Baso # (Auto) 0.0 Abs Immat Gran (auto) 0.11 H Absolute Neuts (auto) 8.4 H Absolute Nucleated RBC 0.000 Nucleated RBC % (auto) 0.0 Hold Blue Top VBG pH VBG pCO2 VBG pO2 VBG HCO3 VBG O2 Saturation VBG Base Excess Anion Gap 14 Estim Creat Clear Calc 65.5 Estimated GFR > 60 POC Glucose 367 H* Random Glucose 399 H* Calcium 9.2 Total Bilirubin 0.3 AST 17 ALT 48 H Alkaline Phosphatase 66 Troponin I High Sens < 2.7 D B-Natriuretic Peptide 82 Total Protein 6.8 Albumin 3.6 Beta-Hydroxybutyrate 0.09 11/13/23 11/13/23 11/13/23 19:15 21:35 21:53 MCV MCH MCHC RDW Plt Count MPV Immature Gran % (Auto) Neut % (Auto) Lymph % (Auto) [place] % (Auto) Eos % (Auto) Baso % (Auto) Lymph # (Auto) [place] # (Auto) Eos # (Auto) Baso # (Auto) Abs Immat Gran (auto) Absolute Neuts (auto) Absolute Nucleated RBC Nucleated RBC % (auto) Hold Blue Top SEE NOTE VBG pH 7.61 H* VBG pCO2 33 VBG pO2 115 VBG HCO3 33 H VBG O2 Saturation 99.0 VBG Base Excess 12.0 Anion Gap 11 L Estim Creat Clear Calc 64.9 Estimated GFR > 60 POC Glucose Random Glucose 373 H* Calcium 10.5 H D Total Bilirubin AST ALT Alkaline Phosphatase Troponin I High Sens B-Natriuretic Peptide Total Protein Albumin Beta-Hydroxybutyrate 11/13/23 11/14/23 11/14/23 22:28 05:32 07:11 MCV 96.1 MCH 29.8 MCHC 31.0 RDW 12.1 Plt Count 109 L MPV 11.6 Immature Gran % (Auto) 0.7 H Neut % (Auto) 71.6 Lymph % (Auto) 14.1 L [place] % (Auto) 13.4 H Eos % (Auto) 0.1 Baso % (Auto) 0.1 Lymph # (Auto) 1.6 [place] # (Auto) 1.5 H Eos # (Auto) 0.0 Baso # (Auto) 0.0 Abs Immat Gran (auto) 0.08 H Absolute Neuts (auto) 8.0 Absolute Nucleated RBC 0.000 Nucleated RBC % (auto) 0.0 Hold Blue Top VBG pH VBG pCO2 VBG pO2 VBG HCO3 VBG O2 Saturation VBG Base Excess Anion Gap 11 L Estim Creat Clear Calc 75.7 Estimated GFR > 60 POC Glucose 300 H 167 H Random Glucose 217 H Calcium 9.2 D Total Bilirubin AST ALT Alkaline Phosphatase Troponin I High Sens B-Natriuretic Peptide Total Protein Albumin Beta-Hydroxybutyrate Assessment and Plan (1) Closed right ankle fracture: Status: Acute (2) Hyperkalemia: Status: Acute Plan 78-year-old female with history of pulmonary hypertension, chronic hypercapnic respiratory failure/obesity hypoventilation syndrome on 2 L O2 at baseline, heart failure preserved ejection fraction, insulin-dependent type 2 diabetes, NICO compliant with CPAP, who is morbidly obese with BMI greater than 45 admitted for further management of R ankle fracture and hyperkalemia. Acute hyperkalemia on ARB potassium sparing diuretiuc peaked T-waves noted on monitor. down to 5.8 today give lokelma and recheck this afternoon Right ankle fracture due to suspected mechanical fall orthopedic surgery consult>No surgical intervention, follow up o/p on office 5-7 days for f/u xrays pain management p.r.n. splint and NWB DM2 with hyperglycemia Lantus 20 units at bedtime ss, ada diet Pseudohyponatremia. Resolving due to hyperglycemia Chronic hypercapnic respiratory failure with obesity hypoventilation syndrome continue home 2 L supplemental O2 Heart failure preserved ejection fraction clinically euvolemic on exam continue p.o. Lasix a.m. NICO CPAP bedtime Hypertension hold losartan, spironolactone secondary to hyperkalemia continue Lasix Morbid obesity with BMI greater than 45 Discussed importance of weight management as this may be contributing to worsening of other comorbidities DVT prophylaxis-heparin Attending Dr. Huntley Full code continue hospital stay for management of hyperkalemia related to hyperglycemia requiring IV insulin, close monitoring renal function and electrolyte levels as well as close cardiac monitoring and expert consultation for repair of ankle fracture Quality Stroke Does the patient have a stroke diagnosis?: No VTE Prior VTE?: No VTE Risk Level:: Medical - moderate - high VTE Device Contraindication: Treatment Not Indicated VTE Drug Contraindication: N/A - Med Ordered
[2023-11-14 12:33] LABS: Glucose, Whole Blood 279 mg/dL (60-115)
[2023-11-14 12:33] LABS: Anion Gap 8 (12-20); Blood Urea Nitrogen 28 mg/dL (9-16); Calcium 9.4 mg/dL (8.4-10.2); Carbon Dioxide 40 mmol/L (22-29); Chloride 91 mmol/L (96-108); Estimated Glomerular Filt Rate > 60; Glucose Random 300 mg/dL (60-115); Potassium 5.6 mmol/L (3.3-5.1); Sodium 133 mmol/L (135-145)
[2023-11-14] MEDS: Heparin Sodium,Porcine 5,000 UNIT/ML VIAL 5000 UNIT SUBCUT ×2 (12:42→23:17)
[2023-11-14] MEDS: Insulin Lispro 100 UNIT/ML 3 ML VIAL SUBCUT ×3 (12:43→21:48)
--- NOTE | 2023-11-14 13:49 | MHC.CM.PN ---
Addendum entered by Marisol Lin 11/14/23 14:58: Provider informed CM that family said that they do not want pt to return to [facility]. Referrals sent to [facility] and [facility] Castellano via [facility] today. Original Note: IMM 11/14/23, Pt was at [facility] for STR following hosp stay here. She lives in an apt with her cousin and has services from [facility], [employer] [facility], 15 hours per week. HCP is on file: Andres Live, her son [phone]. Her PCP in the community is Dr. Garcia at [facility]. DC plan is for her to return to [facility] for continued rehab. CM to follow and assist with DC plan, contact intiated with [facility] through [facility].
[2023-11-14 15:16] LABS: VBG Base Excess 18.1 mmol/L; VBG HCO3 45 mmol/L (22-26); VBG pCO2 65 mmHg; VBG pH 7.45 (7.32-7.43); VBG pO2 146 mmHg
[2023-11-14 15:17] LABS: Venous Blood Gas Refer to POC result
[2023-11-14 16:42] LABS: Anion Gap 8 (12-20); Blood Urea Nitrogen 29 mg/dL (9-16); Calcium 9.3 mg/dL (8.4-10.2); Carbon Dioxide 41 mmol/L (22-29); Chloride 91 mmol/L (96-108); Creatinine Clr Calc Pharmacy 82.2; Estimated Glomerular Filt Rate > 60; Glucose Random 357 mg/dL (60-115); Potassium 5.4 mmol/L (3.3-5.1); Sodium 135 mmol/L (135-145)
--- NOTE | 2023-11-14 19:00 | PC.NURSE ---
spoke w kelsey moreira ready to notify pt appears somnolent on/off she drifts off occasionally. o2 adequate, bp stable. per pa obtain VBG. RN attempted to obtain- unable. called lab- spoke babak curtis- stated lab will come to draw.
--- NOTE | 2023-11-14 19:05 | PC.NURSE ---
pt answers all questions aox4, pt is feeding herself in bed her dinner.
[2023-11-14 19:55] LABS: VBG Base Excess 19.6 mmol/L; VBG HCO3 40 mmol/L (22-26); VBG pCO2 30 mmHg; VBG pH 7.72 (7.32-7.43); VBG pO2 218 mmHg
[2023-11-14 19:55] LABS: Venous Blood Gas Refer to POC result
--- NOTE | 2023-11-14 21:09 | PM.EVENT ---
Event Note Date of Service: 11/14/23 Event Note: Dc O2. Pt intermittently hypercapneic adn lethargic then with respiratory alkalosis blowing off excess co2. pO2 218. O2 does not seem to be indicated at this time and will dc. Time Spent With Patient Time: Total time managing care of this patient today ____ minutes.
--- NOTE | 2023-11-14 21:27 | PC.NURSE ---
messgaged hospialist that Blood glucose was 407
[2023-11-14] MEDS: Insulin Glargine,Hum.rec.anlog 100 UNIT/ML 10 ML VIAL 20 UNIT SUBCUT (21:49)
[2023-11-14 22:36] LABS: Glucose, Whole Blood 392 mg/dL (60-115)
[2023-11-14 23:20] LABS: Glucose, Whole Blood 314 mg/dL (60-115)
[2023-11-14 23:20] LABS: Glucose, Whole Blood 407 mg/dL (60-115)
--- NOTE | 2023-11-15 | ECG_ITS ---
Test Reason : f/u hyperkalemia Blood Pressure : / mmHG Vent. Rate : 074 BPM Atrial Rate : 074 BPM P-R Int : 154 ms QRS Dur : 092 ms QT Int : 362 ms P-R-T Axes : 021 020 032 degrees QTc Int : 401 ms Normal sinus rhythm ST elevation, consider early repolarization Borderline ECG When compared with ECG of 13-NOV-2023 17:05, No significant change was found Referred By: Rupali Spivey Electronically Signed By:KAMRAN DUEÑAS
--- NOTE | 2023-11-15 00:44 | PC.NURSE ---
comes from [facility] ( [place]yr[place] speaking) after rehab for CHF. Reports while using walker hear a snap to R ankle. PMH: Sjorgrens pneumoitis ( on prednisone). DM2, CHF, Resp failure ( 2 L at home) Was weaned to 1L here per provider verbal order.Took off 02 due to verbal order however pt desated to 88. Maintain 02 90-92. , GERD, NICO. DX: R ankle FX. Ortho consult, out of bed with assist, pain mgnt. ADMIT:Acute hyperkalemia- treated in ED ( 6.6, 5.4) repeat BMP. Diabetic diet, insulin as Blood sugar has been high due to prednisone. Insulin given per protocol and MD order. 20 R. AC Pt has periwick in place and uses bedpan as needed.
--- NOTE | 2023-11-15 00:57 | PC.RT ---
Pt refused CPAP
[2023-11-15 02:47] VITALS: BP 152/71; PULSE 73; RESP 20; O2SAT 2
[2023-11-15] MEDS: oxyCODONE HCl Immed Release 5 MG TABLET PO ×2 (02:52→10:17)
[2023-11-15 05:51] VITALS: BP 155/62; PULSE 67; RESP 17; TEMP 36.6; O2SAT 95
--- NOTE | 2023-11-15 05:52 | MHC.EDTECH ---
Rounding/vitals done on Pt. Pt clean and dry at this time.
[2023-11-15 06:19] LABS: Anion Gap 10 (12-20); Blood Urea Nitrogen 27 mg/dL (9-16); Calcium 8.8 mg/dL (8.4-10.2); Carbon Dioxide 45 mmol/L (22-29); Chloride 91 mmol/L (96-108); Creatinine Clr Calc Pharmacy 85.8; Estimated Glomerular Filt Rate > 60; Glucose Random 132 mg/dL (60-115); Potassium 4.5 mmol/L (3.3-5.1); Sodium 141 mmol/L (135-145)
[2023-11-15 07:34] LABS: Glucose, Whole Blood 103 mg/dL (60-115)
[2023-11-15] MEDS: Insulin Lispro 100 UNIT/ML 3 ML VIAL SUBCUT ×5 (07:37→16:56)
[2023-11-15] MEDS: 0.9 % Sodium Chloride Flush 3 ML SYRINGE IVFLUSH ×2 (07:41→16:56)
[2023-11-15 08:00] VITALS: BP 166/74; PULSE 72; RESP 20; TEMP 36.4; O2SAT 99
[2023-11-15 08:17] LABS: Glucose, Whole Blood 187 mg/dL (60-115)
[2023-11-15] MEDS: predniSONE 20 MG TABLET 30 MG PO (09:03)
[2023-11-15] MEDS: Famotidine 20 MG TABLET PO (09:03)
[2023-11-15] MEDS: carvediloL 12.5 MG TABLET PO (09:03)
[2023-11-15] MEDS: Furosemide 40 MG TABLET PO (09:03)
[2023-11-15] MEDS: Heparin Sodium,Porcine 5,000 UNIT/ML VIAL 5000 UNIT SUBCUT (09:04)
[2023-11-15 09:34] VITALS: BP 110/56; PULSE 74; O2SAT 94
[2023-11-15] MEDS: Milk of Magnesia 30 ML ORAL.SUSP PO (10:19)
[2023-11-15 10:58] LABS: Glucose, Whole Blood 182 mg/dL (60-115)
[2023-11-15 11:06] VITALS: BP 129/74; PULSE 71; RESP 20; TEMP 36.6; O2SAT 94
[2023-11-15 11:07] LABS: Venous Blood Gas Refer to POC result
[2023-11-15 11:09] LABS: VBG HCO3 50 mmol/L (22-26); VBG pCO2 82 mmHg; VBG pH 7.39 (7.32-7.43); VBG pO2 60 mmHg
--- NOTE | 2023-11-15 12:00 | P.DS_ITS ---
DS: Providers Provider Date of Service: 11/15/23 Date of admission: 11/13/23 22:05 Date of discharge: 11/15/23 Primary care physician: Kristian Parra MD Consults: 11/13/23 22:05 Consult to Orthopedics Routine Consulting Provider: [facility] [place] [facility] Sur[facility] Reason for consultation: R ankle fracture Attending physician on discharge: Liborio Huntley Discharging clinician: Rupali Spivey DS: Diagnosis Discharge Diagnosis (1) Closed right ankle fracture: Status: Acute (2) Hyperkalemia: Status: Acute DS: Summary Hospital Course Hospital Course: From H&P on the day of admission 78-year-old female with history of pulmonary hypertension, chronic hypercapnic respiratory failure/obesity hypoventilation syndrome on 2 L O2 at baseline, heart failure preserved ejection fraction, insulin-dependent type 2 diabetes, NICO compliant with CPAP, who is morbidly obese with BMI greater than 45 presented to the ED earlier today from [facility] where she has been residing for short-term rehab following hospitalization for CHF exacerbation and Sjogren's pneumonitis with discharge on 11/08. She reports standing up from a chair and taking several steps with her walker ambulating to the bathroom when she rolled her right ankle and heard a snap. Fall was witnessed by her and she did not hit her head and her body did not fall fully to the ground. She reports pain and swelling in the right ankle. She states she did feel lightheaded prior to the fall and continues with lightheadedness. No dyspnea, palpitations, chest pain, vision changes, dysuria, hematuria, diarrhea. No fevers or chills. She has reported polyuria and polydipsia and has been experiencing steroid induced hyperglycemia with glucose of 399 on arrival today. She was discharged on prednisone taper due to Sjogren's pneumonitis. On arrival, VSS. No leukocytosis. No anemia. Chronic thrombocytopenia. Renal function baseline, sodium 132, initial potassium 6.6, chloride 94, CO2 31. Troponin below detectable limits, BNP 82. X-ray of the right foot and ankle shows an oblique displaced lateral malleolus fracture with medial ankle mortise widening. EKG shows NSR, rate 68 with peaked t waves in multiple leads and also noted on ekg monitor. In the ED, received albuterol updraft, 2 g calcium gluconate, 10 units regular insulin, 10 g Lokelma, 1 amp D50, and 4 mg morphine. Repeat BMP pending Acute hyperkalemia on ARB and aldactone at baseline. aldactone has been discontinued. peaked T- waves noted on admission, was treated with albuterol, insulin and calcium gluconate in ED on arrival. Treated with lokelma after admission and potassium down to 4.5. will resume losartan at lower dose, recommend repeat chemistry early next week. Right ankle fracture due to mechanical fall seen by orthopedic surgery consult. No surgical intervention, follow up o/p on office 5-7 days for f/u xrays pain management p.r.n. splint and NWB Pseudohyponatremia. Resolved . due to hyperglycemia steroid induced hyperglycemia. Has been treated with basal, bolus insulin as well as pre meal insulin. Monitor blood sugar closely and adjust as indicated Chronic hypercapnic respiratory failure with obesity hypoventilation syndrome. repeat vbg shows compensated hypercarbic respiratory failure, at baseline. p atient awake, alert. reinforced importance of wearing cpap at night and will need outpatient sleep study to evaluate need for BiPAP as previously planned. will need outpatient follow up with pulmonology Sjogren's pneumonitis - continue steroid taper; decrease by 10 mg every 5 days until 10 mg daily until follow up with pulmonology HFpEF. aldactone has been discontinued due to hyperkalemia. continue baseline lasix. monitor fluid status closely thrombocytopenia. chronic - outpatient follow up recommended Time Attestation Total time managing care of this patient today: 40 mintues. Discharge coordination time: Greater than 30 minutes Quality: Safe Use of Opioids Does Pt have an Active Cancer Diagnosis on the Problem List?: No Quality: Stroke Does the patient have a stroke diagnosis?: No Physical Exam Vital Signs: Vital Signs: Last Vital Signs Temp 97.9 F 11/15/23 11:06 Pulse 71 11/15/23 11:06 Resp 20 11/15/23 11:06 BP 129/74 11/15/23 11:06 Pulse Ox 94 11/15/23 11:06 O2 Del Method Nasal Cannula 11/15/23 11:06 O2 Flow Rate 1 11/15/23 11:06 Oxygen Flow Rate 2 11/13/23 16:48 BMI result Body Mass Index 45.9 Const: General: cooperative, comfortable, no acute distress, alert and awake Nutritional Appearance: average body habitus Orientation/consciousness: patient oriented x3 Resp: Effort & Inspection: normal respiratory effort, able to speak in complete sentences, no respiratory distress and no use of accessory muscles Cardio: Rate: regular rate GI: Inspection: No distended Palpation (GI): Soft to palpation and nontender Neuro: General: patient oriented x3, moves all extremities and CN's II-XI intact bilaterally Extrem: Other: right ankle in splint in place General: Yes no pedal edema DS: Data Data Completed and Pending Completed studies during hospitalization [Text1]: Procedures Assistance with Respiratory Ventilation, Less than 24 Consecutive Hours, Continuous Positive Airway Pressure (11/02/23) Insertion of Endotracheal Airway into Trachea, Via Natural or Artificial Opening Endoscopic (07/12/21) Inspection of Lower Intestinal Tract, Via Natural or Artificial Opening Endoscopic (02/20/22) Resection of Gallbladder, Percutaneous Endoscopic Approach (07/12/21) Respiratory Ventilation, Less than 24 Consecutive Hours (07/12/21) Labs on day of discharge: Laboratory Results - last 24 hr 11/14/23 11/14/23 11/14/23 11:59 12:30 15:10 VBG pH 7.45 H VBG pCO2 65 VBG pO2 146 VBG HCO3 45 H VBG O2 Saturation 99.0 VBG Base Excess 18.1 Sodium 133 L Potassium 5.6 H Chloride 91 L Carbon Dioxide 40 H* Anion Gap 8 L BUN 28 H Creatinine 0.72 Estim Creat Clear Calc 81.0 Estimated GFR > 60 POC Glucose 279 H Random Glucose 300 H Calcium 9.4 11/14/23 11/14/23 11/14/23 16:11 18:42 19:38 VBG pH 7.72 H* VBG pCO2 30 VBG pO2 218 VBG HCO3 40 H VBG O2 Saturation 100.0 VBG Base Excess 19.6 Sodium 135 Potassium 5.4 H Chloride 91 L Carbon Dioxide 41 H* Anion Gap 8 L BUN 29 H Creatinine 0.71 Estim Creat Clear Calc 82.2 Estimated GFR > 60 POC Glucose 314 H Random Glucose 357 H* Calcium 9.3 11/14/23 11/14/23 11/15/23 21:18 22:31 05:27 VBG pH VBG pCO2 VBG pO2 VBG HCO3 VBG O2 Saturation VBG Base Excess Sodium 141 Potassium 4.5 Chloride 91 L Carbon Dioxide 45 H* Anion Gap 10 L BUN 27 H Creatinine 0.68 Estim Creat Clear Calc 85.8 Estimated GFR > 60 POC Glucose 407 H* 392 H* Random Glucose 132 H Calcium 8.8 11/15/23 11/15/23 11/15/23 07:28 08:14 10:44 VBG pH VBG pCO2 VBG pO2 VBG HCO3 VBG O2 Saturation VBG Base Excess Sodium Potassium Chloride Carbon Dioxide Anion Gap BUN Creatinine Estim Creat Clear Calc Estimated GFR POC Glucose 103 187 H 182 H Random Glucose Calcium 11/15/23 11:03 VBG pH 7.39 VBG pCO2 82 VBG pO2 60 VBG HCO3 50 H VBG O2 Saturation 88.0 VBG Base Excess 21.0 Sodium Potassium Chloride Carbon Dioxide Anion Gap BUN Creatinine Estim Creat Clear Calc Estimated GFR POC Glucose Random Glucose Calcium Discharge Plan Discharge Anticipated Discharge Date/Time: 11/15/23 12:32 Patient Disposition: Xfer SNF Discharge Diagnosis: hyperkalemia right lateral malleolus fracture chronic hypercarbic respiratory failure Referrals: [facility] [Outside] - 1 Week Kristian Parra MD [Primary Care Provider] - 1 Week Tia Page PA-C [Physician [employer] Sales Beauty Advisor] - 1 Week Stephane Chawla MD [Physician] - 1 Week Discharge Medications: New oxycodone 5 mg Tablet 5 mg PO Q4H PRN (Reason: Pain, Severe (Pain Scale 7-10)) Qty: 10 0RF Rx Instructions: Partial Fill upon patient request. insulin glargine [Lantus U-100 Insulin] 100 unit/mL Solution 20 unit subcut BEDTIME Qty: 10 0RF insulin lispro [Admelog U-100 Insulin lispro] 100 unit/mL Solution See Protocol subcut QIDACHS Qty: 10 0RF Protocol: Insulin Correction Scale Less than or equal to 110 ---- Give (units): 0 111 to 150 Give (units): 0 151 to 200 Give (units): 2 201 to 250 Give (units): 4 251 to 300 Give (units): 6 301 to 350 Give (units): 8 Greater than 350 Give (units): 10 Call MD if Blood Glucose > : 350 insulin lispro [Admelog U-100 Insulin lispro] 100 unit/mL Solution 5 unit subcut QIDACHS Qty: 10 0RF losartan 50 mg tablet 50 mg PO DAILY Qty: 30 0RF Continued Janumet XR 50-1,000 mg tablet, ER multiphase 24 hr 1 tab PO DAILY pravastatin 40 mg tablet 40 mg PO QPM ergocalciferol (vitamin D2) 1,250 mcg (50,000 unit) capsule 1,250 mcg PO MO albuterol sulfate 90 mcg/actuation HFA aerosol inhaler 2 puff inhalation Q6H PRN (Reason: Wheezing) famotidine 20 mg tablet 20 mg PO BID pantoprazole 40 mg tablet,delayed release (DR/EC) 40 mg PO QAM carvedilol 12.5 mg Tablet 12.5 mg PO BID Qty: 60 0RF Protocol: Hold for SBP/HR < HOLD for SBP < : 90 HOLD for HR < : 60 acetaminophen 650 mg Suppository 650 mg CA Q4H PRN (Reason: Pain or fever) bisacodyl 10 mg Suppository 10 mg CA DAILY PRN (Reason: Constipation) Fleet Enema 19-7 gram/118 mL Enema 118 ml CA DAILY PRN (Reason: Constipation) acetaminophen [Tylenol] 325 mg Capsule 650 mg PO Q4H PRN (Reason: pain or fever) magnesium hydroxide [Milk Of Magnesia Concentrated] 2,400 mg/10 mL Suspension 30 ml PO DAILY PRN (Reason: Constipation) prednisone 20 mg tablet See Taper PO DAILY Taper: Prednisone 30 mg daily for 5 Days and 0 Hour 20 mg daily for 5 Days and 0 Hour 10 mg daily for 5 Days and 0 Hour furosemide 40 mg tablet 40 mg PO QAM Discontinued losartan 100 mg tablet 1 tab PO QAM insulin aspart U-100 [Novolog U-100 Insulin aspart] 100 unit/mL Solution 0 sliding scale dose SUBCUT BID Protocol: Insulin Correction Scale Less than or equal to 110 ---- Give (units): 0 111 to 150 Give (units): 0 151 to 200 Give (units): 0 201 to 250 Give (units): 2 251 to 300 Give (units): 4 301 to 350 Give (units): 6 Greater than 350 Give (units): 8 Call MD if Blood Glucose > : 350 spironolactone 25 mg tablet 25 mg PO QAM No Action (DME) lancets [TRUEplus Lancets] 33 gauge misc See Rx Instructions topical .MEDSUPPLY Qty: 100 Rx Instructions: As directed Discharge Orders: Discharge Order (Routine); Ordered 11/15/23 Ordered By: Rupali Spivey Activity on Discharge: NWB on right Stand Alone Forms: Patient Portal Discharge page Print Language: New Zealander Care Plan Goals: see below Health Concerns: closed ankle fracture Plan of Treatment: for sjogrens's pneumonitis - continue prednisone taper, 30 mg daily for three more days then decrease by 10 mg every 5 days to 10 mg daily until follow up with pulmonology needs outpatient sleep study to determine need for BIPAP etc. Call to schedule outpatient follow-up with pulmonology for further work up/management for pneumonitis reinforce use of CPAP every night. avoid over, oxygenating, goal o2 sat 89-92 CHF precautions, low na diet, etc. monitor blood sugar closely while on steroids - has been getting scheduled pre- meal insulin as well as sliding scale coverage and basal insulin. adjust as indicated for right ankle fracture - will need outpatient follow up with orthopedics in 5- 7 days for repeat xrays. splint in place NWB on right minimize use of narcotics when able to prevent sedation due to underlying hypercarbic respiratory failure for hypokalemia - repeat BMP Saturday 11/18 to monitor potassium levels losartan resumed at lower dose. monitor blood pressure closely stop taking aldactone Assessment: see discharge summary
[2023-11-15 15:22] VITALS: BP 146/77; PULSE 80; RESP 20; TEMP 37.1; O2SAT 92
--- NOTE | 2023-11-15 15:24 | MHC.CM.PN ---
Pt has been medically cleared for DC, she will go to [facility] today via ambulance. Pt aware and in agreement.
[2023-11-15 16:28] LABS: Glucose, Whole Blood 289 mg/dL (60-115)
== END 2023-11-15 17:00 | disposition skilled nursing facility (03) | DRG 563 ==
LOC: HO.ED 17:30 → HO.EDOVER 22:12 → HO.IMC 11-15 06:58
PROVIDERS: Nurse Practitioner Acute Care; Physician Assistant; Student in an Organized Health Care Education/Training Program; Admitting Provider Physician Assistant; Emergency Provider Emergency Medicine Emergency Medical Services; PCP Family Medicine; Visit Provider Physician Assistant Medical
DX: S82.61XA Displaced fracture of lateral malleolus of right fibula, initial encounter for closed fracture (principal); E66.2 Morbid (severe) obesity with alveolar hypoventilation; J96.12 Chronic respiratory failure with hypercapnia; Z68.42 Body mass index [BMI] 45.0-49.9, adult; I50.32 Chronic diastolic (congestive) heart failure; E87.5 Hyperkalemia; M35.02 Sjogren syndrome with lung involvement; J98.4 Other disorders of lung; I11.0 Hypertensive heart disease with heart failure; E86.0 Dehydration; E11.65 Type 2 diabetes mellitus with hyperglycemia; Z99.81 Dependence on supplemental oxygen; W19.XXXA Unspecified fall, initial encounter; Z87.891 Personal history of nicotine dependence; Z79.4 Long term (current) use of insulin; Z79.899 Other long term (current) drug therapy
CPT/HCPCS: 36415; 73610; 73620; 80048; 80053; 82010; 82803; 82947; 83880; 84484; 85025; 93005; 94640; 94660; 97162; 99285; J0613; J1644; J2270

== ENCOUNTER → 2023-11-13 16:52 | Outpatient (BNV) | payer OTHER, SELFPAY | PROVIDERS: Admitting Provider Physician Assistant; Emergency Provider Emergency Medicine Emergency Medical Services; PCP Family Medicine; Visit Provider Internal Medicine | DX: R94.31 Abnormal electrocardiogram [ECG] [EKG] (principal) | CPT/HCPCS: 93010 ==

== ENCOUNTER 2023-11-13 22:05 | Outpatient (BNV) | payer OTHER, SELFPAY | END 2023-11-15 12:17 | PROVIDERS: Admitting Provider Physician Assistant; Emergency Provider Emergency Medicine Emergency Medical Services; PCP Family Medicine; Visit Provider Internal Medicine | DX: E87.5 Hyperkalemia (principal) | CPT/HCPCS: 93010 ==

== ENCOUNTER → 2023-11-13 22:05 | Outpatient (BNV) | payer OTHER, SELFPAY | PROVIDERS: Admitting Provider Physician Assistant; Emergency Provider Emergency Medicine Emergency Medical Services; PCP Family Medicine; Visit Provider Physician Assistant | DX: S82.891A Other fracture of right lower leg, initial encounter for closed fracture (principal) | CPT/HCPCS: 99222 ==

== ENCOUNTER → 2023-11-13 22:05 | Outpatient (BNV) | payer OTHER, SELFPAY | PROVIDERS: Admitting Provider Physician Assistant; Emergency Provider Emergency Medicine Emergency Medical Services; PCP Family Medicine; Visit Provider Physician Assistant | DX: S82.891A Other fracture of right lower leg, initial encounter for closed fracture (principal); E87.5 Hyperkalemia | CPT/HCPCS: 99223; 99232; 99239; 99499 ==

== ENCOUNTER 2023-11-26 09:52 | Outpatient (REF) | payer OTHER, SELFPAY ==
--- NOTE | ~2023-11-26 | XR_ITS ---
EXAMINATION: XR ANKLE, RIGHT CLINICAL INFORMATION: Pain in right ankle and joints of the right foot, splint off. COMPARISON: November 13, 2023 radiographs of the right foot and ankle. September 2020 right ankle radiographs. TECHNIQUE: AP, lateral, and mortise views of the right ankle. FINDINGS: Redemonstration of an oblique fracture of the lateral malleolus with approximately 5 mm lateral displacement of the lateral malleolus relative to the more proximal shaft of the fibula. Diffuse soft tissue swelling. Redemonstration of widening of the medial malleolus and unstable ankle mortise. Multiple rounded pelvic calcifications are concerning for venous stasis. Moderate dorsal and plantar calcaneal spurs. Advanced degenerative changes at the talonavicular joint and midfoot. Flat foot. XR/XR ankle RT min 3V IMPRESSION: 1. Redemonstration of an oblique fracture of the lateral malleolus with approximately 5 mm lateral displacement of the lateral malleolus relative to the more proximal shaft of the fibula. Diffuse soft tissue swelling. 2. Redemonstration of widening of the medial malleolus and unstable ankle mortise.
== END 2023-11-26 09:53 | disposition home or self-care (01) ==
LOC: HO.HOSX 09:52
PROVIDERS: Visit Provider Physician Assistant
DX: S82.891A Other fracture of right lower leg, initial encounter for closed fracture (principal); W19.XXXA Unspecified fall, initial encounter; Y93.9 Activity, unspecified; Y92.9 Unspecified place or not applicable; Y99.9 Unspecified external cause status; Z79.899 Other long term (current) drug therapy
CPT/HCPCS: 27786; 73610; 99212

== ENCOUNTER 2023-11-26 14:03 | Outpatient (AMB) | payer OTHER, SELFPAY ==
--- NOTE | 2023-11-26 14:18 | A.OFFVIS_ITS ---
Intake Vital Signs 11/26/23 14:19 Height 5 ft 3 in Intake Visit Reasons: OV - right ankle fx, DOI 11/13/23 Intake Note: Magalie 78 yr old female presents today for a new patient visit s/p seen in ED due to falling down and injuring her right ankle. Patient doesn't recall DOI but believes its was about 2 weeks ago. States she has had very minimal pain and has no pain at all today. Denies numbness or tingling and presents today on a stretcher. Xrays updated in office. Allergies No Known Allergies [No Known Allergies*] Allergy (Verified 11/26/23 14:27) Medication List - Last Reconciled 11/26/23 by Saleem Young PA-C acetaminophen 650 mg MT Q4H PRN acetaminophen (Tylenol) 650 mg PO Q4H PRN albuterol sulfate 90 mcg/actuation 2 puffs inhalation Q6H PRN bisacodyl 10 mg MT DAILY PRN carvedilol 12.5 mg See Protocol PO BID ergocalciferol (vitamin D2) 1,250 mcg PO MO famotidine 20 mg PO BID furosemide 40 mg PO QAM insulin glargine (Lantus U-100 Insulin) 20 units (0.2 mL) subcut BEDTIME insulin lispro (Admelog U-100 Insulin lispro) See Protocol units subcut QIDACHS insulin lispro (Admelog U-100 Insulin lispro) 5 units (0.05 mL) subcut QIDACHS lancets (TRUEplus Lancets) As directed losartan 50 mg PO DAILY magnesium hydroxide (Milk Of Magnesia Concentrated) 30 mL PO DAILY PRN oxycodone 5 mg PO Q4H PRN pantoprazole 40 mg PO QAM pravastatin 40 mg PO QPM prednisone See Taper mg PO DAILY sitagliptin phos-metformin 50-1,000 mg ER (Janumet XR) 1 tab PO DAILY sodium phosphates 19-7 gram/118 mL (Fleet Enema) 118 mL MT DAILY PRN HPI OV - right ankle fx, DOI 11/13/23 HPI Details 78-year-old female who presents to the [facility] today in a stretcher for an ED follow-up of right ankle injury s/p fall, about 2 weeks ago. She states she had minimal pain s/p fall and currently states she has no pain in her ankle. She denies any numbness or tingling. [facility] Medical History Pneumonitis Pulmonary hypertension Hypertensive cardiovascular disease Acute hypoxic on chronic hypercapnic respiratory failure Acute on chronic respiratory failure with hypoxemia Obesity hypoventilation syndrome NICO (obstructive sleep apnea) GERD (gastroesophageal reflux disease) Hypertension Diabetes mellitus COPD (chronic obstructive pulmonary disease) Surgical History S/P laparoscopic cholecystectomy (07/14/21) Family History Mother Diabetes Social History Household Members: Family Housing: Assisted Living Facility Do you presently have visiting nurse or other home services: No Patient Tobacco Use Status: Former Tobacco user Tobacco use type: Cigarette Years Smoked: 20 service: No Current occupational status: unemployed and disabled Review of Systems Const All systems reviewed & are unremarkable except as noted in HPI and below Physical Exam Const General: cooperative, healthy appearing, comfortable, no acute distress, well developed and alert Orientation/consciousness: patient oriented x3 HEENT Head: Yes normal to inspection, Yes normocephalic and Yes atraumatic Eyes General: appearance normal, both eyes and all related structures Resp Effort & Inspection: normal respiratory effort and able to speak in complete sentences Cardio Rate: regular rate Peripheral pulses: Peripheral pulses 2+ throughout GI Palpation (GI): Soft to palpation Skin Lesions: no lesions Rashes: no rashes Neuro General: patient oriented x3 Extrem Other: Right ankle: Normal to inspection. Her swelling has been improved. She has tenderness over the medial and lateral malleolus. NVI. Office Procedures Casting/Splints 00885-[id number] Leg Cast Application Procedure code (CPT) selection complete Results Reviewed Results Reviewed: Xrays were obtained in the office today and personally reviewed by me of the right ankle show bimalleolar ankle fracture with mortise displacement Assessment & Plan Assessment & Plan (1) Closed right ankle fracture: Code(s): S82.891A - Other fracture of right lower leg, initial encounter for closed fracture Qualifiers: Encounter type: subsequent encounter Plan Images were reviewed in the office today with Dr. Juarez. We discussed the risks and benefits of surgery and with her multiple comorbidities and need for supplemental oxygen, she has a high risk with surgical intervention with the outcomes such as poor wound healing, poor bone healing and concerns with the effects of anesthesia. After talking with Dr. Juarez and her family she will remain non weight bearing and see me back in 4 weeks with cast off and new x- rays, sooner if needed. Orders: Orders XR ankle RT min 3V 11/26/23 M25.571 - Pain in right ankle and joints of right foot Patient Instructions: Scribed for Saleem Young PA-C, by Dominic Hoff medical cost consultant, on 11/26/2023 at 2:00 PM EST. I, Saleem Young PA-C, have personally reviewed and agree with the information entered by the scribe. Coding Level of Care Code Global (75043) Diagnoses Closed right ankle fracture S82.891A Encounter type: subsequent encounter CPT Codes Casting - CPT: 08364-Eldml Leg Cast Application ([id number])
== END 2023-11-26 15:08 | disposition home or self-care (01) ==
PROVIDERS: PCP Family Medicine; Visit Provider Physician Assistant
DX: S82.61XA Displaced fracture of lateral malleolus of right fibula, initial encounter for closed fracture (principal); S82.891A Other fracture of right lower leg, initial encounter for closed fracture
CPT/HCPCS: 27786; 99214

== ENCOUNTER 2023-12-11 10:07 | Outpatient (AMB) | payer OTHER, SELFPAY ==
--- NOTE | 2023-12-10 20:00 | MHC.OFFVIS ---
Intake Vital Signs 12/11/23 10:23 BP 118/62 Blood Pressure Location Lt brachial Position Supine Pulse 79 Pulse Source Pulse Oximeter Pulse Oximetry (%) 97 Oxygen Delivery Method Nasal Cannula Oxygen Flow Rate 1 Intake Visit Reasons: hospital D/C follow up Personnel Research Scientist Required: Yes Personnel Research Scientist Name: Mic #[id number] Accompanied by: solo truck driver Allergies No Known Allergies [No Known Allergies*] Allergy (Verified 12/11/23 10:26) HPI hospital D/C follow up HPI Details Magalie is a pleasant 78-year-old female, former smoker, quit 30+ years ago, with underlying history of severe NICO on CPAP, obesity hypoventilation syndrome, chronic respiratory failure with hypercapnia, GERD and diastolic dysfunction followed by Dr. Chawla. She presented to the ED on 11/01 with CHF exacerbation and question on Sjogren's pneumonitis with reported abdominal pain, progressively worsening dyspnea, orthopnea and BLE edema. Imaging revealed pulmonary edema and BNP elevated. Respiratory panel negative, WBC unremarkable. While in the hospital the patient developed confusion and was noted to develop acute on chronic hypercarbic respiratory failure. She was placed on BiPAP and transferred to the unit. It was recommended upon discharge to switch from CPAP to NIV, as she can not tolerate CPAP and obtain titration study, which has been ordered. CT scan of the chest demonstrated areas of ground-glass opacities. Lab work suggestive of Sjogren's with positive Sjogren's antibodies, MAGALIE +, with high titer and speckled pattern. The imaging combined with lab work was concerning for connective tissue disease related pneumonitis. Ultimately, she was discharged to short term rehab on doxycycline and prednisone taper of 40 mg with taper every 5 days. Today she presents for ED follow up. She is currently being trasported via stretcher as she recently fractured her right ankle, accompanied by EMS. She denies any respiratory symptoms and feels she is back to baseline. She is currently on 10 mg of prednisone and 40 mg of lasix. [facility] Medical History (Updated 12/12/23 @ 08:34 by Ofelia Ly NP) CHF (congestive heart failure) 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 indication of end stage renal disease in patient 6 to 64 years of age Lymphadenopathy Abdominal pain Bursitis of right hip Osteoarthritis of right hip Restrictive ventilatory defect Dyspnea on exertion Varicose veins of right lower extremity with inflammation Pneumonitis Pulmonary hypertension Hypertensive cardiovascular disease Acute hypoxic on chronic hypercapnic respiratory failure Acute on chronic respiratory failure with hypoxemia Obesity hypoventilation syndrome NICO (obstructive sleep apnea) GERD (gastroesophageal reflux disease) Hypertension Diabetes mellitus COPD (chronic obstructive pulmonary disease) Surgical History S/P laparoscopic cholecystectomy (07/14/21) Family History Mother Diabetes Social History (Updated 12/11/23 @ 10:22 by Ciarra Jean LPN) Household Members: Family Housing: Assisted Living Facility Do you presently have visiting nurse or other home services: No Patient Tobacco Use Status: Former Tobacco user Tobacco use type: Cigarette Years Smoked: 20 Smoked in Last 30 Days: No service: No Current occupational status: unemployed and disabled Review of Systems Const Denies chills, Denies excessive sweating, Denies fever(s), Denies headache(s) and Denies night sweats Eyes Denies dry eyes, Denies irritation and Denies itchy eyes ENT Reports Normal hearing present, Denies headache(s), Denies nasal congestion, Denies nasal discharge, Denies post nasal drip and Denies sore throat Card Denies chest pain, Denies chest pain at rest, Denies chest pain with activity, Denies claudication, Denies leg edema, Denies dyspnea, Denies dyspnea on exertion, Denies orthopnea and Denies paroxysmal nocturnal dyspnea Resp Denies chest congestion, Denies cough, Denies excessive phlegm production, Denies pain on inspiration, Denies pain with cough, Denies dyspnea, Denies dyspnea on exertion, Denies stridor and Denies wheezing Musc Denies myalgias Neuro Reports Normal hearing present and Denies headache(s) Endo Denies excessive sweating Ralph/Lymph Denies lymphadenopathy Aller/Immun Denies itchy eyes, Denies seasonal rhinorrhea and Denies wheezing Physical Exam Vital Signs: Last Vital Signs Pulse 79 12/11/23 10:23 BP 118/62 12/11/23 10:23 Pulse Ox 97 12/11/23 10:23 Oxygen Delivery Method Nasal Cannula 12/11/23 10:23 Oxygen Flow Rate 1 12/11/23 10:23 Const General: cooperative, healthy appearing, comfortable, no acute distress, well developed and alert Nutritional Appearance: obese Orientation/consciousness: patient oriented x3 Limitations: other limitations (hospital stretcher) HEENT Head: Yes normal to inspection, Yes normocephalic and Yes atraumatic Ears: hearing grossly normal bilaterally and external ears normal Eyes General: appearance normal, both eyes and all related structures Eyelids: Yes eyelids normal Sclerae: sclerae normal EOM: EOMs intact bilaterally Neck Neck: Yes normal visual inspection and Yes no lymphadenopathy Lymphatic: no lymphadenopathy noted Chest Chest palpation & inspection: normal inspection of the chest Resp Other: crackles throughout with audible wheezes/crackles Effort & Inspection: normal respiratory effort, able to speak in complete sentences, no cough, no stridor, not tachypneic, no tripod positioning and no use of accessory muscles Cardio Jugular venous distension: no JVD Rate: regular rate Rhythm: regular rhythm Skin Other: warm, dry General skin exam: no rashes or lesions noted Neuro General: patient oriented x3 Cranial nerves: Yes Normal hearing present Cognition (Neuro): normal cognition Extrem Other: cast of RLE Psych Appearance: grossly normal and well kempt Speech and movement: Normal speech and movement present and Clear speech present Affect: normal affect Attitude: cooperative Thought process: Normal thought process present Thought content: Normal thought content present Insight: Good insight present (Psych) Judgement: Good judgement present (Psych) Results Reviewed Results Reviewed: [place] [address] CT Scan Report Signed Patient: Magalie Live MR#: [id number] : 1945 Acct:[id number] Age/Sex: 78 / F ADM Date: 11/02/23 Loc: [facility] 260-[address]: Lisseth Shell MD Ordering Physician: Deandre Shaikh MD Date of Service: 11/02/23 Procedure(s): CT chest wo IV con Accession Number(s): [id number] cc: Deandre Shaikh MD; [facility] EXAMINATION: CT CHEST WITHOUT CONTRAST CLINICAL INFORMATION: Respiratory failure. COMPARISON: CT chest 12/18/2022. TECHNIQUE: Multidetector volumetric CT imaging of the chest was done. Axial MIP volume rendering provided. Sagittal and coronal reformatted images were obtained. This CT examination was performed using dose optimization techniques as appropriate, variously including the following: *Automated exposure control *Adjustment of mA and/or kV according to patient size (this includes techniques or standardized protocols for targeted exams where dose is matched to indication/reason for exam; i.e. extremities or head) *Use of iterative reconstruction technique DLP: 585 mGy-cm FINDINGS: LUNGS: Multifocal groundglass opacities that are more denser and extensive in the right upper lobe (5:57). The trachea and mainstem bronchi are patent. A solid 1 x 0.9 cm right middle lobe nodule (4:215) is unchanged dating back to 08/13/2013. Evaluation of new nodules is very limited due to motion and overlying airspace opacities. MEDIASTINUM: Cardiomegaly. No pericardial effusion. Increased size of a few mediastinal lymph nodes, for reference a rounded 0.8 cm lymph node in the prevascular region (2:19). Enlarged pulmonary arteries consistent wit pulmonary h hypertension. Normal caliber of the thoracic aorta. Limited evaluation of the hilar structures secondary to motion and lack of IV contrast. CORONARY ARTERY CALCIFICATION: Multivessel coronary artery calcifications. PLEURA: No pleural effusion or pneumothorax. AXILLA: No axillary lymphadenopathy. UPPER ABDOMEN: Cholecystectomy. Contrast material in the renal calyces from prior IV administration at the time of CT abdomen performed earlier today. OSSEOUS STRUCTURES: No acute or aggressive appearing osseous findings. Thoracic spondylosis. CT/CT chest wo IV con IMPRESSION: 1. Multifocal groundglass opacities that are more denser and extensive in the right upper lobe are suspicious for a combination of pulmonary edema and atypical infectious/inflammatory process. Recommend reevaluation with short-term follow-up CT chest in 3 months. 2. A 1 cm right middle lobe nodule is unchanged dating back to 08/13/2013 which is reassuring for benign/indolent process, for which no additional imaging follow-up is recommended. 3. Increased size of a few mediastinal lymph nodes, likely reactive. Attention on follow-up at the moment of reimaging in 3 months is recommended. 4. Cardiomegaly and findings consistent with pulmonary hypertension. Multivessel coronary calcifications. Assessment & Plan Assessment & Plan (1) NICO (obstructive sleep apnea): Code(s): G47.33 - Obstructive sleep apnea (adult) (pediatric) (2) Obesity hypoventilation syndrome: Code(s): E66.2 - Morbid (severe) obesity with alveolar hypoventilation (3) Restrictive ventilatory defect: Code(s): R94.2 - Abnormal results of pulmonary function studies (4) CHF (congestive heart failure): Code(s): I50.9 - Heart failure, unspecified Qualifiers: Heart failure chronicity: acute Heart failure type: unspecified Qualified Code(s): I50.9 - Heart failure, unspecified Plan Magalie presents for hospital follow up after recent admission for CHF, acute on chronic respiratory failure with hypoxemia and question of Sjogren's pneumonitis. She is a poor historian, but denies any repiratory symptoms at this time, feeling back to baseline. However, patient with audible crackles and on exam crackles appreciated throughout. This is concerning for CHF. Will send patient for a CXR today. Unfortunately, patient is residing at a SNF, and EMS states she will likely get the CXR tomorrow or whenever transport can be arranged. Will await results, may need to reach out to cardiology to discuss findings and likely increase diuretics. After this resolves, then will send for chest CT to follow up on GGO. She is aware there is an order for an inlab sleep study that will be scheduled in the near future. All questions were answered and patient is in agreement of plan. Will follow up with Dr. Chawla for regularly scheduled appointment. Orders: Orders XR chest 2V 12/11/23 R09.89 - Other specified symptoms and signs involving the circulatory and respiratory systems Coding Level of Care Code Est Pt Level 4 (10985) Diagnoses NICO (obstructive sleep apnea) G47.33 Obesity hypoventilation syndrome E66.2 Restrictive ventilatory defect R94.2 CHF (congestive heart failure) I50.9 Heart failure chronicity: acute Heart failure type: unspecified
[2023-12-11 10:23] VITALS: BP 118/62; PULSE 79; O2SAT 97
== END 2023-12-11 10:47 | disposition home or self-care (01) ==
PROVIDERS: PCP Family Medicine; Visit Provider Nurse Practitioner Family
DX: G47.33 Obstructive sleep apnea (adult) (pediatric) (principal); E66.2 Morbid (severe) obesity with alveolar hypoventilation; R94.2 Abnormal results of pulmonary function studies; I50.9 Heart failure, unspecified
CPT/HCPCS: 99214

== ENCOUNTER → 2023-12-11 10:07 | Outpatient (BNVA) | payer OTHER, SELFPAY | PROVIDERS: PCP Family Medicine; Visit Provider Nurse Practitioner Family | DX: G47.33 Obstructive sleep apnea (adult) (pediatric) (principal); R94.2 Abnormal results of pulmonary function studies; E66.2 Morbid (severe) obesity with alveolar hypoventilation; I50.9 Heart failure, unspecified | CPT/HCPCS: 99212 ==

== ENCOUNTER 2023-12-24 12:01 | Outpatient (REF) | payer OTHER, SELFPAY ==
--- NOTE | ~2023-12-24 | XR_ITS ---
EXAMINATION: XR ANKLE, RIGHT CLINICAL INFORMATION: Right ankle pain COMPARISON: 11/26/2023 TECHNIQUE: AP, lateral, and mortise views of the right ankle. FINDINGS: Again seen is a Unñez B distal fibular fracture with lateral displacement of the distal fracture fragment by 4 mm. No definite osseous bridging. Widening is again noted at the medial ankle mortise. No new fractures. Soft tissues remain swollen. Numerous phleboliths are present in the subcutaneous fat at the ankle and lower leg. There is pes planovalgus angulation at the foot with degenerative arthritis in the midfoot. Small enthesopathic spur is present at the plantar fascial origin on the calcaneus. XR/XR ankle RT min 3V IMPRESSION: 1. Unchanged alignment of the Nuñez B distal fibular fracture. No definite osseous bridging. 2. Persistent widening of the medial ankle mortise.
== END 2023-12-24 12:02 | disposition home or self-care (01) ==
LOC: HO.HOSX 12:01
PROVIDERS: PCP Family Medicine; Visit Provider Physician Assistant
DX: M25.571 Pain in right ankle and joints of right foot (principal); S82.891D Other fracture of right lower leg, subsequent encounter for closed fracture with routine healing; X58.XXXD Exposure to other specified factors, subsequent encounter
CPT/HCPCS: 73610; 99212

== ENCOUNTER 2023-12-24 12:01 | Outpatient (AMB) | payer OTHER, SELFPAY ==
--- NOTE | 2023-12-24 12:40 | A.OFFVIS_ITS ---
Intake Vital Signs 12/24/23 12:42 Height 5 ft 3 in Intake Visit Reasons: OV - right ankle fx, DOI 11/13/23-follow up Intake Note: Magalie a 78 year old female who presents today for a follow up of right ankle fracture. Cast off and xrays updated. Patient reports that she is doing well, states no pain or discomfort. Denies numbness or tingling however she has unintentional twitching in her toes. Allergies No Known Allergies [No Known Allergies*] Allergy (Verified 12/24/23 12:42) HPI OV - right ankle fx, DOI 11/13/23-follow up HPI Details 78-year-old female who returns to the [facility] today for a follow-up of right ankle fracture, 11/13/23. She states she has no pain or discomfort and is doing well overall. She denies any numbness or tingling however she does c/o unintentional twitching in her toes. She has no other concerns today. [facility] Medical History (Updated 12/12/23 @ 08:34 by Oeflia Ly NP) CHF (congestive heart failure) 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 indication of end stage renal disease in patient 6 to 64 years of age Lymphadenopathy Abdominal pain Bursitis of right hip Osteoarthritis of right hip Restrictive ventilatory defect Dyspnea on exertion Varicose veins of right lower extremity with inflammation Pneumonitis Pulmonary hypertension Hypertensive cardiovascular disease Acute hypoxic on chronic hypercapnic respiratory failure Acute on chronic respiratory failure with hypoxemia Obesity hypoventilation syndrome NICO (obstructive sleep apnea) GERD (gastroesophageal reflux disease) Hypertension Diabetes mellitus COPD (chronic obstructive pulmonary disease) Surgical History S/P laparoscopic cholecystectomy (07/14/21) Family History Mother Diabetes Social History Household Members: Family Housing: Assisted Living Facility Do you presently have visiting nurse or other home services: No Patient Tobacco Use Status: Former Tobacco user Tobacco use type: Cigarette Years Smoked: 20 service: No Current occupational status: unemployed and disabled Review of Systems Const All systems reviewed & are unremarkable except as noted in HPI and below Physical Exam Const General: cooperative, healthy appearing, comfortable, no acute distress, well developed and alert Orientation/consciousness: patient oriented x3 HEENT Head: Yes normal to inspection, Yes normocephalic and Yes atraumatic Eyes General: appearance normal, both eyes and all related structures Resp Effort & Inspection: normal respiratory effort and able to speak in complete sentences Cardio Rate: regular rate Peripheral pulses: Peripheral pulses 2+ throughout GI Palpation (GI): Soft to palpation Skin Lesions: no lesions Rashes: no rashes Neuro General: patient oriented x3 Extrem Other: Right ankle: Normal to inspection. Her swelling has been improved. She has no tenderness over the medial and lateral malleolus. NVI. Assessment & Plan Assessment & Plan (1) Closed right ankle fracture: Code(s): S82.891A - Other fracture of right lower leg, initial encounter for closed fracture Qualifiers: Encounter type: subsequent encounter Plan She has no pain on PE and x-rays show a stable fracture pattern therefore she will begin weight bearing as tolerated with a boot. She will use the boot with applying any type of weight and remove for hygiene and physical therapy exercises. I did put in an order for physical therapy on the rehab form to work on ROM, gait training and strength. She will see me back in 4-6 weeks with x- rays, sooner if needed. Orders: Orders XR ankle RT min 3V Today M25.571 - Pain in right ankle and joints of right foot Patient Instructions: Scribed for Saleem Young PA-C, by Dominic Hoff medical terminologist, on 12/24/2023 at 12:30 PM EST. Saleem Chung PA-C, have personally reviewed and agree with the information entered by the scribe. Coding Level of Care Code Global (55514) Diagnoses Closed right ankle fracture S82.891A Encounter type: subsequent encounter
== END 2023-12-24 13:21 | disposition home or self-care (01) ==
LOC: HO.HOS 12:01
PROVIDERS: PCP Family Medicine; Visit Provider Physician Assistant
DX: S82.891A Other fracture of right lower leg, initial encounter for closed fracture (principal)
CPT/HCPCS: 99024

== ENCOUNTER 2024-01-08 21:52 | Emergency (ER) | payer OTHER, SELFPAY ==
--- NOTE | 2024-01-08 | ECG_ITS ---
Test Reason : SOB Blood Pressure : / mmHG Vent. Rate : 082 BPM Atrial Rate : 082 BPM P-R Int : 166 ms QRS Dur : 078 ms QT Int : 350 ms P-R-T Axes : 032 022 035 degrees QTc Int : 408 ms Normal sinus rhythm Normal ECG When compared with ECG of 15-NOV-2023 12:17, No significant change was found Referred By: Generic ED Physician Electronically Signed By:ALPHONSO TAVARES MD
--- NOTE | ~2024-01-08 | CT_ITS ---
EXAMINATION: CT head/brain wo IV con CLINICAL INFORMATION: Reason for Exam LLE weakness COMPARISON: None. TECHNIQUE: Contiguous axial imaging was performed from the skull base to vertex without intravenous contrast. Sagittal and coronal reformatted images were obtained. This CT examination was performed using dose optimization techniques as appropriate, variously including the following: * Automated exposure control * Adjustment of mA and/or kV according to patient size (this includes techniques or standardized protocols for targeted exams where dose is matched to indication/reason for exam; i.e. extremities or head) Use of iterative reconstruction technique DLP: 646 mGy-cm FINDINGS: No acute osseous or soft tissue abnormality. The mastoid air cells and visualized portions of the paranasal sinuses are well aerated. There is no evidence of acute intracranial hemorrhage or territorial infarction. No abnormal mass effect or midline shift is seen. Perez to white matter differentiation is well preserved. No extra-axial fluid collections are identified. No hydrocephalus. No significant volume loss. Patchy periventricular and deep white matter hypoattenuation is consistent with mild small vessel ischemic changes. Chronic left cerebellar lacunar infarct. CT/CT head/brain wo IV con IMPRESSION: No acute intracranial abnormality including hemorrhage, mass effect, hydrocephalus, or acute territorial edematous infarction.
--- NOTE | ~2024-01-08 | XR_ITS ---
EXAMINATION: XR CHEST CLINICAL INFORMATION: Dyspnea. COMPARISON: 11/01/2023 TECHNIQUE: 2 views of the chest were obtained. FINDINGS: Lung volumes are low. The cardiomediastinal silhouette is stable. There is no focal lung consolidation or pleural effusion. The bony structures and soft tissues are unremarkable. XR/XR chest 2V IMPRESSION: Low lung volumes limits evaluation. There is no evidence for active cardiopulmonary disease.
[2024-01-08 22:26] VITALS: BP 127/56; BP 140/82; PULSE 83; PULSE 85; RESP 23; TEMP 37.3; O2SAT 96; O2SAT 99; BMI 42.8
[2024-01-08 22:30] VITALS: RESP 23
--- NOTE | 2024-01-08 22:31 | ED.GENADULT ---
HPI - General Adult General Chief complaint: Dyspnea Stated complaint: headache, chills, weakness, dizziness, 95% 2L Time Seen by Provider: 01/08/24 22:18 Source: patient, family and seismic interpreter Limitations: language barrier History of Present Illness HPI narrative: Patient is a 78-year-old Lebanese-speaking female with history of CHF with preserved EF, chronic hypercapnic respiratory failure, on oxygen at baseline, IDT2DM, pulmonary hypertension, NICO on CPAP presenting to the emergency department with complaint of left-sided weakness which was present upon waking this morning. Patient states this is worse in her left lower extremity. reports that he had extreme difficulty assisting patient to the toilet with her walker and back to bed yesterday and today. He states that he felt as though patient had decreased strength to LLE yesterday as well. Patient's son states that while at short-term rehab she had been able to get up and take several steps with a walker and since being home has deteriorated. Son also states that patient returned home from short-term rehab on Sunday and was without oxygen until Sunday. Patient denies chest pain or palpitations. MD complaint: weakness, dyspnea Onset (ago): day(s) Location: left and lower extremity Associated symptoms: shortness of breath and weakness Treatments prior to arrival: none Related Data Home Medications ?Medication ?Instructions ?Recorded ?Confirmed lancets 33 gauge (TRUEplus Lancets) #100 ea 09/20/21 11/26/23 sitagliptin phos 50 mg-metformin 1 tab PO DAILY 02/20/22 11/26/23 ER 1,000 mg tablet,extend rel 24h mp (Janumet XR) furosemide 40 mg tablet 40 mg PO QAM 05/11/23 11/26/23 albuterol sulfate 90 mcg/actuation 2 puff inhalation Q6H PRN Wheezing 11/02/23 11/26/23 aerosol inhaler ergocalciferol (vitamin D2) 1,250 1,250 mcg PO MO 11/02/23 11/26/23 mcg (50,000 unit) capsule famotidine 20 mg tablet 20 mg PO BID 11/02/23 11/26/23 pantoprazole 40 mg tablet,delayed 40 mg PO QAM 11/02/23 11/26/23 release pravastatin 40 mg tablet 40 mg PO QPM 11/02/23 11/26/23 acetaminophen 325 mg capsule 650 mg PO Q4H PRN pain or fever 11/13/23 11/26/23 (Tylenol) acetaminophen 650 mg rectal 650 mg ID Q4H PRN Pain or fever 11/13/23 11/26/23 suppository bisacodyl 10 mg rectal suppository 10 mg ID DAILY PRN Constipation 11/13/23 11/26/23 magnesium hydroxide 2,400 mg/10 mL 30 ml PO DAILY PRN Constipation 11/13/23 11/26/23 oral suspension (Milk Of Magnesia Concentrated) prednisone 20 mg tablet See Taper PO DAILY 11/13/23 11/13/23 sodium phosphates 19 gram-7 118 ml ID DAILY PRN Constipation 11/13/23 11/26/23 gram/118 mL enema (Fleet Enema) Previous Rx's ?Medication ?Instructions ?Recorded carvedilol 12.5 mg tablet 12.5 mg PO BID #60 tabs 11/07/23 insulin glargine 100 unit/mL 20 unit (0.2 mL) subcut BEDTIME 11/15/23 subcutaneous solution (Lantus #10 mL U-100 Insulin) insulin lispro 100 unit/mL 5 unit (0.05 mL) subcut QIDACHS 11/15/23 subcutaneous solution (Admelog #10 mL U-100 Insulin lispro) insulin lispro 100 unit/mL See Protocol subcut QIDACHS #10 mL 11/15/23 subcutaneous solution (Admelog U-100 Insulin lispro) losartan 50 mg tablet 50 mg PO DAILY #30 tabs 11/15/23 oxycodone 5 mg tablet 5 mg PO Q4H PRN Pain, Severe (Pain 11/15/23 Scale 7-10) #10 tabs Allergies Allergy/AdvReac Type Severity Reaction Status Date / Time No Known Allergies Allergy Verified 01/08/24 22:30 [No Known Allergies*] Review of Systems Review of Systems: As per HPI. Yes all other systems are reviewed and are negative [facility] Past Medical History Medical History (Updated 01/09/24 @ 08:03 by ZUHAIR Carbajal) CHF (congestive heart failure) 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 indication of end stage renal disease in patient 6 to 64 years of age Lymphadenopathy Abdominal pain Bursitis of right hip Osteoarthritis of right hip Restrictive ventilatory defect Dyspnea on exertion Varicose veins of right lower extremity with inflammation Pneumonitis Pulmonary hypertension Hypertensive cardiovascular disease Acute hypoxic on chronic hypercapnic respiratory failure Acute on chronic respiratory failure with hypoxemia Obesity hypoventilation syndrome NICO (obstructive sleep apnea) GERD (gastroesophageal reflux disease) Hypertension Diabetes mellitus COPD (chronic obstructive pulmonary disease) Surgical History S/P laparoscopic cholecystectomy (07/14/21) Family History Family History Mother Diabetes Social History Social History Household Members: Family Housing: Assisted Living Facility Do you presently have visiting nurse or other home services: No Patient Tobacco Use Status: Former Tobacco user Tobacco use type: Cigarette Years Smoked: 20 Smoked in Last 30 Days: No Use of substances other than those prescribed or required for medical reasons: No Advance Directives: No Advance Directives Information Provided: Yes Do you have a plan to hurt others: No Plan service: No Current occupational status: unemployed and disabled Physical Exam ED Vital Signs: Vital Signs - 24 hr 01/08/24 22:26 01/08/24 22:30 01/09/24 01:03 Temperature 99.1 F 99.2 F Pulse Rate 83 82 Respiratory Rate 23 H 23 H 20 Blood Pressure 127/56 L 128/60 Pulse Oximetry 96 95 Oxygen Delivery Method Nasal Cannula Nasal Cannula Oxygen Flow Rate 2 01/09/24 02:05 01/09/24 03:12 01/09/24 05:47 Temperature 99.1 F 98.5 F Pulse Rate 82 71 Respiratory Rate 15 24 H 17 Blood Pressure 139/50 L 132/45 L Pulse Oximetry 95 97 Oxygen Delivery Method Nasal Cannula Nasal Cannula Oxygen Flow Rate 2 2 01/09/24 08:14 01/09/24 10:01 Temperature 98.3 F 97.7 F Pulse Rate 72 72 Respiratory Rate 13 16 Blood Pressure 123/58 L 123/58 L Pulse Oximetry 100 98 Oxygen Delivery Method Nasal Cannula Nasal Cannula Oxygen Flow Rate 2 2 BMI result Body Mass Index 42.8 Vital signs have been reviewed and appear to be correct. Blood pressure normal. Heart rate normal. Respiratory rate normal. Temperature normal. Oxygen saturation normal. Const General: cooperative, no acute distress, alert and awake Nutritional Appearance: obese Orientation/consciousness: patient oriented x3 Limitations: no limitations HENMT Head: Yes normocephalic and Yes atraumatic Ears: hearing grossly normal bilaterally and external ears normal General nose exam: Normal external nose present Face and sinus: Yes normal facial exam and Yes face symmetric Mouth: Normal oral and palatal mucosa present, lip normal, tongue normal and oropharynx normal Throat: Yes posterior oropharynx normal and Yes uvula midline Eyes Pupils: Equal, round and reactive pupils present Neck Neck: Yes normal visual inspection, Yes full ROM, Yes no meningeal signs and Yes trachea midline Resp Effort & Inspection: normal respiratory effort and able to speak in complete sentences Auscultation: diminished lung sounds diffuse Cardio Rate: regular rate Rhythm: regular rhythm Heart sounds: S1 normal heart sound present and S2 normal heart sound present Peripheral pulses: Peripheral pulses 2+ throughout GI Palpation (GI): Soft to palpation and nontender Auscultation: normoactive bowel sounds General: Yes no CVA tenderness Back/Spine/Pelvis Back: no CVA tenderness Skin General skin exam: elasticity normal and turgor normal Neuro Other: 5/5 strength bilateral upper extremities, 2/5 strength LLE, unable to assess strenth RLE r/t walking boot/ankle fx General: patient oriented x3, tone normal, moves all extremities, no meningeal signs, CN's II-XI intact bilaterally and Unable to assess gait Cranial nerves: Yes Equal, round and reactive pupils present Gait exam (Neuro): Unable to assess gait Motor exam (neuro): Pronator motor function not present and Abnormal motor strength present Sensory Exam: Abnormal double simultaneous stimulation for sensation (decreased sensation left lower leg) NIH Stroke Scale Internal: Initial- Upon Arrival Time: 23:43 Level of Consciousness: Alert Level of Consciousness Questions: Answers both questions correctly Level of Consciousness Commands: Performs both tasks correctly Best Gaze: Normal Visual: No visual loss Facial Palsy: Normal Motor Arm (Right): No drift Motor Arm (Left): No drift Motor Leg (Right): Some effort against gravity (unable to fully assess due to RLE in walking boot for ankle fx) Motor Leg (Left): Some effort against gravity Limb Ataxia: Absent Sensory: Mild to moderate sensory loss (reports decreased sensation to left lower leg) Best Language: No aphasia Dysarthia: Normal Extinction and Inattention: No abnormality Score: 5 Course Course Course Narrative: 0800 01/09/24-- vital signs stable. She is satting 97% at on 2 L nasal cannula. I have reviewed all investigations and do not appreciate any acute abnormalities requiring intervention. Patient has remained stable. No acute overnight events per nursing notes. Physician observation continued pending PT/case management and disposition. 1056-- PT recommending short-term rehab. Patient and her son at bedside are declining at this time. Per son, patient is already scheduled to have home physical therapy which will be coming to the home tomorrow. You will also have visiting RN 2 times a week. They would prefer home PT over short-term rehab. Patient is stable for discharge home. Transport booked by case management. Observation care revealed that the patient does not meet medical necessity for hospitalization. Final disposition discussed with the patient and son. The patient completed observation care at 1058, total time in observation care was 9 hours. Medications Administered Discontinued Medications Generic Name Dose Route Start Last Admin Trade Name Freq PRN Reason Stop Dose Admin Acetaminophen 650 mg 01/09/24 00:55 01/09/24 01:03 Acetaminophen 325 Mg Tablet PO 01/09/24 00:56 650 mg ONCE ONE Administration Acetaminophen 975 mg 01/09/24 10:40 01/09/24 10:48 Acetaminophen 325 Mg Tablet PO 01/09/24 10:41 975 mg ONCE ONE Administration Ibuprofen 400 mg 01/09/24 05:05 01/09/24 06:40 Ibuprofen 400 Mg Tablet PO 01/09/24 05:06 400 mg ONCE ONE Administration Sodium Zirconium Cyclosilicate 10 gm 01/08/24 23:55 01/09/24 00:53 Sodium Zirconium Cyclosilicate 10 Gm Powd.Pack PO 01/08/24 23:56 10 gm ONCE ONE Administration Medical Decision Making Medical Decision Making [facility] Narrative: Patient is a 78-year-old Lebanese-speaking female with history of CHF with preserved EF, chronic hypercapnic respiratory failure, on oxygen at baseline, IDT2DM, pulmonary hypertension, NICO on CPAP presenting to the emergency department with complaint of left-sided weakness which was present upon waking this morning. On exam patient is awake, A+Ox3, VS WNL, afebrile, normal neurological exam without focal deficits, physical exam findings as above. Patient is outside the window for acute stroke. Given reported symptoms and physical exam findings, initial differential includes CVA/ICH, electrolyte abnormality, cardiac arrhythmia, ACS, CHF exacerbation, anemia, UTI, pneumonia, dehydration. Do not suspect sepsis at 23:00. Plan: EKG, labs, CXR, CT head, UA Labs notable for hyperkalemia likely due to medications, no leukocytosis, chronic microcytic anemia, chronic thrombocytopenia, chronic hypercapnia, mildly elevated troponin. Lokelma ordered, no peaked T's, ID interval and QTc WNL. EKG shows normal sinus rhythm. Viral serologies negative. X-ray chest notable for no CHF, no evidence of pneumonia. CT head notable for no evidence of ICH, infarction or other acute abnormalities. My interpretation is in agreement with the radiologist's interpretation. Patient does not have evidence of conditions requiring admission at this time. Given that patient and family feel she is unsafe at home, will order PT and CM evaluations, and place on physician observation at this time. Differential Diagnosis Differential Diagnoses: The differential diagnosis associated with the presentation includes As per [facility] Admission/Observation Consideration of admission/observation: Escalation of care including admission/observation considered Lab Data [facility] Lab Attestation statement: I reviewed the patient's lab results. As per [facility] 01/08/24 23:15 01/08/24 22:54 Labs: Lab Results 01/08/24 01/08/24 01/08/24 Range/Units 22:54 22:56 22:59 WBC (4.8-10.8) X10*3/uL RBC (4.20-5.50) X10*6/uL Hgb (12.0-16.0) g/dl Hct (37.0-47.0) % MCV (80.0-98.0) fL MCH (27.0-33.0) pg MCHC (31.0-35.0) g/dl RDW (11.0-16.0) % Plt Count (160-400) X10*3/uL MPV (9.4-12.3) fL Immature Gran % (Auto) (0.0-0.4) % Neut % (Auto) (45-73) % Lymph % (Auto) (20-40) % Traill % (Auto) (2-11) % Eos % (Auto) (0-4) % Baso % (Auto) (0-2) % Lymph # (Auto) (1.2-4.9) X10*3/uL Traill # (Auto) (0.1-1.2) X10*3/uL Eos # (Auto) (0.0-0.4) X10*3/uL Baso # (Auto) (0.0-0.2) X10*3/uL Abs Immat Gran (auto) (0.00-0.03) X10*3/uL Absolute Neuts (auto) (2.0-8.3) x10*3/uL Absolute Nucleated RBC (0.0-0.012) X10*3/uL Nucleated RBC % (auto) (0.0-0.2) /100WBC VBG pH 7.33 (7.32-7.43) VBG pCO2 91 mmHg VBG pO2 54 mmHg VBG HCO3 48 H (22-26) mmol/L VBG O2 Saturation 86.0 % VBG Base Excess 18.2 mmol/L Sodium 142 (135-145) mmol/L Potassium 5.4 H (3.3-5.1) mmol/L Chloride 95 L (96-108) mmol/L Carbon Dioxide 41 H* (22-29) mmol/L Anion Gap 11 L (12-20) BUN 19 H (9-16) mg/dL Creatinine 0.90 (0.5-1.4) mg/dL Estim Creat Clear Calc 69.1 Estimated GFR > 60 Random Glucose 157 H (60-115) mg/dL Calcium 8.5 (8.4-10.2) mg/dL Total Bilirubin 0.2 (0.0-1.0) mg/dL AST 18 (5-31) U/L ALT 10 (0-31) U/L Alkaline Phosphatase 51 (39-117) U/L Troponin I High Sens 8.3 D (<3.5-17.0) ng/L B-Natriuretic Peptide (<100) pg/mL Total Protein 7.3 (6.5-8.0) g/dL Albumin 3.6 (3.5-5.0) g/dL Influenza Type A (PCR) NEGATIVE (Negative) Influenza Type B (PCR) NEGATIVE (Negative) RSV RNA Qual (PCR) NEGATIVE (Negative) SARS-CoV-2 RNA (RT-PCR) NEGATIVE (Negative) 01/08/24 01/09/24 Range/Units 23:15 01:13 WBC 6.8 (4.8-10.8) X10*3/uL RBC 3.45 L (4.20-5.50) X10*6/uL Hgb 10.4 L (12.0-16.0) g/dl Hct 36.0 L (37.0-47.0) % MCV 104.3 H (80.0-98.0) fL MCH 30.1 (27.0-33.0) pg MCHC 28.9 L (31.0-35.0) g/dl RDW 13.2 (11.0-16.0) % Plt Count 153 L D (160-400) X10*3/uL MPV 10.7 (9.4-12.3) fL Immature Gran % (Auto) 0.7 H (0.0-0.4) % Neut % (Auto) 64.9 (45-73) % Lymph % (Auto) 23.1 (20-40) % Traill % (Auto) 8.1 (2-11) % Eos % (Auto) 2.8 (0-4) % Baso % (Auto) 0.4 (0-2) % Lymph # (Auto) 1.6 (1.2-4.9) X10*3/uL Traill # (Auto) 0.6 (0.1-1.2) X10*3/uL Eos # (Auto) 0.2 (0.0-0.4) X10*3/uL Baso # (Auto) 0.0 (0.0-0.2) X10*3/uL Abs Immat Gran (auto) 0.05 H (0.00-0.03) X10*3/uL Absolute Neuts (auto) 4.4 (2.0-8.3) x10*3/uL Absolute Nucleated RBC 0.000 (0.0-0.012) X10*3/uL Nucleated RBC % (auto) 0.0 (0.0-0.2) /100WBC VBG pH (7.32-7.43) VBG pCO2 mmHg VBG pO2 mmHg VBG HCO3 (22-26) mmol/L VBG O2 Saturation % VBG Base Excess mmol/L Sodium (135-145) mmol/L Potassium (3.3-5.1) mmol/L Chloride (96-108) mmol/L Carbon Dioxide (22-29) mmol/L Anion Gap (12-20) BUN (9-16) mg/dL Creatinine (0.5-1.4) mg/dL Estim Creat Clear Calc Estimated GFR Random Glucose (60-115) mg/dL Calcium (8.4-10.2) mg/dL Total Bilirubin (0.0-1.0) mg/dL AST (5-31) U/L ALT (0-31) U/L Alkaline Phosphatase (39-117) U/L Troponin I High Sens 8.2 (<3.5-17.0) ng/L B-Natriuretic Peptide 113 H (<100) pg/mL Total Protein (6.5-8.0) g/dL Albumin (3.5-5.0) g/dL Influenza Type A (PCR) (Negative) Influenza Type B (PCR) (Negative) RSV RNA Qual (PCR) (Negative) SARS-CoV-2 RNA (RT-PCR) (Negative) Independent Interpretation I performed an independent interpretation of an: EKG (Normal sinus rhythm, rate 82 beats per minute, normal ID interval and QTC), Plain X-Ray and CT Scan Interpretation: No evidence of CHF or pneumonia on chest x-ray No evidence of acute ICH or infarct or other abnormality on CT head Radiology Impression Discussion of test interpretation with radiology: I have reviewed the radiologist's reading. Radiologist Impression: XR/XR chest 2V IMPRESSION: Low lung volumes limits evaluation. There is no evidence for active cardiopulmonary disease. CT/CT head/brain wo IV con IMPRESSION: No acute intracranial abnormality including hemorrhage, mass effect, hydrocephalus, or acute territorial edematous infarction. External Record Review External record reviewed: Inpatient record, Office record and Outpatient record Discharge Plan Discharge Clinical Impression: Generalized weakness, Hyperkalemia Patient Disposition: Home, Self-Care Additional Instructions: You declined short-term rehab that was recommended by physical therapy. You already have PT scheduled at home which you would prefer. You and your family are agreeable with home PT instead of STR facility. Follow up with PCP. Return with new or worsening symptoms. Prescriptions: No Action Janumet XR 50-1,000 mg tablet, ER multiphase 24 hr 1 tab PO DAILY pravastatin 40 mg tablet 40 mg PO QPM ergocalciferol (vitamin D2) 1,250 mcg (50,000 unit) capsule 1,250 mcg PO MO albuterol sulfate 90 mcg/actuation HFA aerosol inhaler 2 puff inhalation Q6H PRN (Reason: Wheezing) famotidine 20 mg tablet 20 mg PO BID pantoprazole 40 mg tablet,delayed release (DR/EC) 40 mg PO QAM carvedilol 12.5 mg Tablet 12.5 mg PO BID Qty: 60 0RF Protocol: Hold for SBP/HR < HOLD for SBP < : 90 HOLD for HR < : 60 acetaminophen 650 mg Suppository 650 mg ID Q4H PRN (Reason: Pain or fever) bisacodyl 10 mg Suppository 10 mg ID DAILY PRN (Reason: Constipation) Fleet Enema 19-7 gram/118 mL Enema 118 ml ID DAILY PRN (Reason: Constipation) acetaminophen [Tylenol] 325 mg Capsule 650 mg PO Q4H PRN (Reason: pain or fever) magnesium hydroxide [Milk Of Magnesia Concentrated] 2,400 mg/10 mL Suspension 30 ml PO DAILY PRN (Reason: Constipation) prednisone 20 mg tablet See Taper PO DAILY Taper: Prednisone 30 mg daily for 5 Days and 0 Hour 20 mg daily for 5 Days and 0 Hour 10 mg daily for 5 Days and 0 Hour oxycodone 5 mg Tablet 5 mg PO Q4H PRN (Reason: Pain, Severe (Pain Scale 7-10)) Qty: 10 0RF Rx Instructions: Partial Fill upon patient request. insulin glargine [Lantus U-100 Insulin] 100 unit/mL Solution 20 unit subcut BEDTIME Qty: 10 0RF insulin lispro [Admelog U-100 Insulin lispro] 100 unit/mL Solution See Protocol subcut QIDACHS Qty: 10 0RF Protocol: Insulin Correction Scale Less than or equal to 110 ---- Give (units): 0 111 to 150 Give (units): 0 151 to 200 Give (units): 2 201 to 250 Give (units): 4 251 to 300 Give (units): 6 301 to 350 Give (units): 8 Greater than 350 Give (units): 10 Call MD if Blood Glucose > : 350 insulin lispro [Admelog U-100 Insulin lispro] 100 unit/mL Solution 5 unit subcut QIDACHS Qty: 10 0RF losartan 50 mg tablet 50 mg PO DAILY Qty: 30 0RF (DME) lancets [TRUEplus Lancets] 33 gauge misc See Rx Instructions topical .MEDSUPPLY Qty: 100 Rx Instructions: As directed furosemide 40 mg tablet 40 mg PO QAM Referrals: [facility] [Outside] Print Language: Lebanese
[2024-01-08 23:03] LABS: VBG Base Excess 18.2 mmol/L; VBG HCO3 48 mmol/L (22-26); VBG pCO2 91 mmHg; VBG pH 7.33 (7.32-7.43); VBG pO2 54 mmHg
[2024-01-08 23:07] LABS: Venous Blood Gas Refer to POC result
--- NOTE | 2024-01-08 23:07 | PC.NURSE ---
2X ATTEMPT FOR IV ACESS UNABLE TO. OG VERDIN ATTEMPT NOW.
[2024-01-08 23:18] LABS: Alanine Aminotransferase 10 U/L (0-31); Albumin Level 3.6 g/dL (3.5-5.0); Alkaline Phosphatase 51 U/L (39-117); Anion Gap 11 (12-20); Aspartate Amino Transferase 18 U/L (5-31); Bilirubin Total 0.2 mg/dL (0.0-1.0); Blood Urea Nitrogen 19 mg/dL (9-16); Calcium 8.5 mg/dL (8.4-10.2); Carbon Dioxide 41 mmol/L (22-29); Chloride 95 mmol/L (96-108); Creatinine Clr Calc Pharmacy 69.1; Estimated Glomerular Filt Rate > 60; Glucose Random 157 mg/dL (60-115); Potassium 5.4 mmol/L (3.3-5.1); Sodium 142 mmol/L (135-145); Total Protein 7.3 g/dL (6.5-8.0)
[2024-01-08 23:20] LABS: MANUAL DIFF FLAG NO
[2024-01-08 23:22] LABS: Basophils Percent Auto 0.4 % (0-2); Eosinophils Absolute Auto 0.2 X10*3/uL (0.0-0.4); Eosinophils Percent Auto 2.8 % (0-4); Hemoglobin 10.4 g/dl (12.0-16.0); Imm Gran Abs Auto 0.05 X10*3/uL (0.00-0.03); Imm Gran Pct Auto 0.7 % (0.0-0.4); Lymphocytes Absolute Auto 1.6 X10*3/uL (1.2-4.9); Lymphocytes Percent Auto 23.1 % (20-40); Mean Corpuscular HGB Conc 28.9 g/dl (31.0-35.0); Mean Corpuscular Hemoglobin 30.1 pg (27.0-33.0); Mean Corpuscular Volume 104.3 fL (80.0-98.0); Mean Platelet Volume 10.7 fL (9.4-12.3); Monocytes Absolute Auto 0.6 X10*3/uL (0.1-1.2); Monocytes Percent Auto 8.1 % (2-11); Neutrophils Absolute Auto 4.4 x10*3/uL (2.0-8.3); Neutrophils Percent Auto 64.9 % (45-73); Platelet Count 153 X10*3/uL (160-400); Red Blood Count 3.45 X10*6/uL (4.20-5.50); Red Cell Distribution Width 13.2 % (11.0-16.0); White Blood Count 6.8 X10*3/uL (4.8-10.8)
[2024-01-08 23:26] LABS: Troponin-I High Sensitivity 8.3 ng/L (<3.5-17.0)
[2024-01-08 23:38] LABS: Influenza A PCR NEGATIVE (Negative); Influenza B PCR NEGATIVE (Negative); Resp Syncy Virus RNA Qual PCR NEGATIVE (Negative); SARS COV2 PCR INHOUSE NEGATIVE (Negative)
[2024-01-08 23:42] LABS: B Type Natriuretic Peptide 113 pg/mL (<100)
[2024-01-09] VITALS (7 sets, daily range): BP systolic 123–143; BP diastolic 45–60; PULSE 71–82; RESP 13–24; TEMP 36.5–37.3; O2SAT 95–100
[2024-01-09] MEDS: Sodium Zirconium Cyclosilicate 10 GM POWD.PACK PO (00:53)
[2024-01-09] MEDS: Acetaminophen 325 MG TABLET 650 MG PO (01:03)
[2024-01-09 01:45] LABS: Troponin-I High Sensitivity 8.2 ng/L (<3.5-17.0)
--- NOTE | 2024-01-09 03:38 | MHC.EDTECH ---
Pt incontinent of urine, Pt cleaned up and repositioned, sat more up right per Pt request. Purewick placed. Call goodwin within reach.
[2024-01-09] MEDS: Ibuprofen 400 MG TABLET PO (06:40)
--- NOTE | 2024-01-09 06:47 | MHC.EDTECH ---
Pt cleaned and repositioned. New purewick placed.
--- NOTE | 2024-01-09 07:41 | PC.NURSE ---
channel marketing manager utilized. Pt is reporting headache, 06/26. Pt noted to be off her baseline O2, reports she took it off cause it was bothering her. SPO2 on RA noted to be 74%. Pt agreed to put O2 back on, improved quickly to 93-94%. Pt is confused, unable to give info for a med rec at this time, pharmacy contacted.
--- NOTE | 2024-01-09 08:17 | PC.NURSE ---
Reached out to pharmacy for med rec, pharmacy unable to complete at this time. Pt unable to answer questions about her meds, will attempt again.
--- NOTE | 2024-01-09 10:22 | MHC.CM.ED ---
Received case management consult overnight. Patient came to the ER due to weakness and headache. Work up essentially negative. Patient has a history of O2 dependent COPD. Patient was d/c'd home from [facility] on with [facility] and [facility] oxygen. Physical therapy eval completed. Short term rehab is recommended. Met with patient, son, and airport operations specialist. Patient and son are declining STR at this time. Patient and family do not feel STR was helpful. Both requesting patient return home with [facility] and [facility] oxygen. Nish ALVARES booked. Med nec with chart. Patient, son, Anita VERDIN and Barbara MOFFETT aware. Continue to monitor for d/c needs.
[2024-01-09] MEDS: Acetaminophen 325 MG TABLET 975 MG PO (10:48)
== END 2024-01-09 12:22 | disposition home or self-care (01) ==
PROVIDERS: Registered Nurse Emergency; Emergency Provider Student in an Organized Health Care Education/Training Program; PCP Internal Medicine
DX: R53.1 Weakness (principal); E87.5 Hyperkalemia; E11.9 Type 2 diabetes mellitus without complications; I10 Essential (primary) hypertension; J96.12 Chronic respiratory failure with hypercapnia; J44.9 Chronic obstructive pulmonary disease, unspecified; Z99.81 Dependence on supplemental oxygen; Z87.891 Personal history of nicotine dependence; Z79.4 Long term (current) use of insulin; R29.705 NIHSS score 5; Z79.02 Long term (current) use of antithrombotics/antiplatelets; Z79.899 Other long term (current) drug therapy; Z03.818 Encounter for observation for suspected exposure to other biological agents ruled out
CPT/HCPCS: 0241U; 36415; 70450; 71046; 80053; 82803; 83880; 84484; 85025; 93005; 97162; 99285

== ENCOUNTER → 2024-01-08 22:29 | Outpatient (BNV) | payer OTHER, SELFPAY | PROVIDERS: Emergency Provider Student in an Organized Health Care Education/Training Program; Visit Provider Internal Medicine Cardiovascular Disease | DX: R06.02 Shortness of breath (principal) | CPT/HCPCS: 93010 ==

== ENCOUNTER 2024-01-11 11:46 | Emergency (ER) | payer OTHER, SELFPAY ==
--- NOTE | ~2024-01-11 | XR_ITS ---
EXAMINATION: XR TIBIA AND FIBULA, LEFT CLINICAL INFORMATION: Pain. COMPARISON: None available. TECHNIQUE: AP and lateral views of the left tibia and fibula were obtained. FINDINGS: No fracture. No osseous lesions. The knee and ankle joints appear maintained on these limited views. There are numerous calcific densities within the soft tissues. XR/XR tibia fibula LT 2V IMPRESSION: No fracture or dislocation.
--- NOTE | ~2024-01-11 | XR_ITS ---
EXAMINATION: XR ANKLE, LEFT CLINICAL INFORMATION: Pain. COMPARISON: None available. TECHNIQUE: AP, lateral, and mortise views of the left ankle. FINDINGS: No fracture or dislocation. The ankle mortise is maintained. There are numerous calcifications within the soft tissues. There is moderate lower extremity edema. XR/XR ankle LT min 3V IMPRESSION: No fracture or dislocation. Lower extremity edema.
--- NOTE | ~2024-01-11 | US_ITS ---
EXAMINATION: US VENOUS ULTRASOUND WITH DOPPLER LOWER EXTREMITY, LEFT CLINICAL INFORMATION: Swelling and pain COMPARISON: None available. TECHNIQUE: Ultrasound of the deep veins is performed from the hip to the calf with compression sonography and color and pulse Doppler assessment. Spectral analysis with color-flow imaging is performed. FINDINGS: There is normal venous compression and respiratory variation and augmented flow. The visualized common femoral vein, superficial femoral vein, profunda femoral vein, popliteal vein, and the trifurcation region shows no evidence of deep venous thrombosis. There is limited visualization of the peroneal vein. There is no significant popliteal fossa cyst. If the patient's symptoms persist, followup ultrasound in 5 days 7 days might be of value to exclude proximal propagation from a non-visualized calf vein. US/US venous duplex LE IMPRESSION: No DVT demonstrated in the left lower extremity.
--- NOTE | 2024-01-11 12:02 | ECG_ITS ---
Test Reason : WEAKNESS Blood Pressure : / mmHG Vent. Rate : 083 BPM Atrial Rate : 083 BPM P-R Int : 162 ms QRS Dur : 086 ms QT Int : 364 ms P-R-T Axes : 033 022 047 degrees QTc Int : 427 ms Sinus rhythm with occasional Premature ventricular complexes Otherwise normal ECG When compared with ECG of 08-JAN-2024 22:29, Premature ventricular complexes are now Present Referred By: Shobha Yadav Electronically Signed By:ALPHONSO TAVARES MD
--- NOTE | 2024-01-11 12:05 | ED_ITS ---
HPI - General Adult General Chief complaint: Extremity Problem Stated complaint: WEAKNESS AND EDEMA Time Seen by Provider: 01/11/24 12:01 History of Present Illness HPI narrative: 78 y/o F patient; PMH mild pulmonary HTN, chronic hypercarbic respiratory failure/obesity hypoventilation syndrome on 2L O2 at baseline, HFpEF (last ECHO 11/02/2023 with EF >70%), T2DM, NICO with CPAP, obesity; presents from home with report of frustration regarding left lower extremity weakness and pain. She states her left calf is painful and itchy. She reports it is preventing her from walking especially as her right lower extremity is in a CAM boot secondary to a fall with fracture approx 2 months ago. The patient was last seen in this emergency department on 01/08/2024 for left- sided weakness. She had a CT Head, CXR, and laboratory studies completed which were grossly noted to be at patient's baseline values. The patient was seen by physical therapy and coordinated care at that time and recommended for short- term rehab but patient and her son declined as she was due to start home physical therapy as well as having a visiting nurse twice a week. Patient was discharged to home. She states since the discharge home she has not been able to walk and has had difficulty with pivoting. She denies any recent falls or trauma at home. She is uncertain if she would want to enter into a short term rehab and requests to wait for her son to arrive in the emergency department before deciding. She denies any other medical complaints including: Chest pain, shortness of breath, cough or congestion, nausea or vomiting, abdominal pain. Related Data Home Medications ?Medication ?Instructions ?Recorded ?Confirmed lancets 33 gauge (TRUEplus Lancets) #100 ea 09/20/21 11/26/23 sitagliptin phos 50 mg-metformin 1 tab PO DAILY 02/20/22 11/26/23 ER 1,000 mg tablet,extend rel 24h mp (Janumet XR) furosemide 40 mg tablet 40 mg PO QAM 05/11/23 11/26/23 albuterol sulfate 90 mcg/actuation 2 puff inhalation Q6H PRN Wheezing 11/02/23 11/26/23 aerosol inhaler ergocalciferol (vitamin D2) 1,250 1,250 mcg PO MO 11/02/23 11/26/23 mcg (50,000 unit) capsule famotidine 20 mg tablet 20 mg PO BID 11/02/23 11/26/23 pantoprazole 40 mg tablet,delayed 40 mg PO QAM 11/02/23 11/26/23 release pravastatin 40 mg tablet 40 mg PO QPM 11/02/23 11/26/23 acetaminophen 325 mg capsule 650 mg PO Q4H PRN pain or fever 11/13/23 11/26/23 (Tylenol) acetaminophen 650 mg rectal 650 mg ME Q4H PRN Pain or fever 11/13/23 11/26/23 suppository bisacodyl 10 mg rectal suppository 10 mg ME DAILY PRN Constipation 11/13/23 11/26/23 magnesium hydroxide 2,400 mg/10 mL 30 ml PO DAILY PRN Constipation 11/13/23 11/26/23 oral suspension (Milk Of Magnesia Concentrated) prednisone 20 mg tablet See Taper PO DAILY 11/13/23 11/13/23 sodium phosphates 19 gram-7 118 ml ME DAILY PRN Constipation 11/13/23 11/26/23 gram/118 mL enema (Fleet Enema) Previous Rx's ?Medication ?Instructions ?Recorded carvedilol 12.5 mg tablet 12.5 mg PO BID #60 tabs 11/07/23 insulin glargine 100 unit/mL 20 unit (0.2 mL) subcut BEDTIME 11/15/23 subcutaneous solution (Lantus #10 mL U-100 Insulin) insulin lispro 100 unit/mL 5 unit (0.05 mL) subcut QIDACHS 11/15/23 subcutaneous solution (Admelog #10 mL U-100 Insulin lispro) insulin lispro 100 unit/mL See Protocol subcut QIDACHS #10 mL 11/15/23 subcutaneous solution (Admelog U-100 Insulin lispro) losartan 50 mg tablet 50 mg PO DAILY #30 tabs 11/15/23 oxycodone 5 mg tablet 5 mg PO Q4H PRN Pain, Severe (Pain 11/15/23 Scale 7-10) #10 tabs Allergies Allergy/AdvReac Type Severity Reaction Status Date / Time No Known Allergies Allergy Verified 01/11/24 12:19 [No Known Allergies*] Review of Systems 2 Review of Systems: Yes all other systems are reviewed and are negative Neurologic: Denies Abnormal speech present PMFSH Past Medical History Attestation statement: The following information was validated with the patient. Source: old records reviewed Medical History CHF (congestive heart failure) 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 indication of end stage renal disease in patient 6 to 64 years of age Lymphadenopathy Abdominal pain Bursitis of right hip Osteoarthritis of right hip Restrictive ventilatory defect Dyspnea on exertion Varicose veins of right lower extremity with inflammation Pneumonitis Pulmonary hypertension Hypertensive cardiovascular disease Acute hypoxic on chronic hypercapnic respiratory failure Acute on chronic respiratory failure with hypoxemia Obesity hypoventilation syndrome NICO (obstructive sleep apnea) GERD (gastroesophageal reflux disease) Hypertension Diabetes mellitus COPD (chronic obstructive pulmonary disease) Surgical History S/P laparoscopic cholecystectomy (07/14/21) Family History Family History Mother Diabetes Social History Social History Household Members: Family Housing: Assisted Living Facility Do you presently have visiting nurse or other home services: No Patient Tobacco Use Status: Former Tobacco user Tobacco use type: Cigarette Years Smoked: 20 Advance Directives: No Advance Directives Information Provided: No service: No Current occupational status: unemployed and disabled Physical Exam ED Vital Signs: Vital Signs - 24 hr 01/11/24 12:17 Temperature 97.9 F Pulse Rate 84 Respiratory Rate 18 Blood Pressure 131/49 L Pulse Oximetry 97 Oxygen Delivery Method Room Air Nasal Cannula BMI result Body Mass Index 44.3 Patient is afebrile, hemodynamically stable with SpO2 97% on 2L NC Const General: cooperative and no acute distress Orientation/consciousness: patient oriented x3 HENMT Head: Yes normal to inspection and Yes atraumatic Eyes General: appearance normal, both eyes and all related structures Neck Neck: Yes normal visual inspection, Yes full ROM and Yes supple Chest Chest palpation & inspection: normal inspection of the chest and normal palpation of entire chest wall Resp Effort & Inspection: normal respiratory effort, able to speak in complete sentences, no cough and no respiratory distress Auscultation: clear to auscultation bilaterally Cardio Rate: regular rate Rhythm: regular rhythm Peripheral pulses: Peripheral pulses 2+ throughout GI Inspection: Yes normal to inspection Palpation (GI): Soft to palpation, not firm, nontender, no guarding and not rigid Auscultation: normal bowel sounds Skin Other: RLE: 2+ edema from foot into calf, NVI - in CAM boot which was temporarily removed for examination LLE: 1+ edema in calf, NVI, mild mid-calf tenderness, FROM. Neuro Other: LLE: Patient without drift, 5/5 strength RLE: Patient without drift, 5/5 strength General: patient oriented x3 Cranial nerves: Yes CN's II-XII intact bilaterally Cognition (Neuro): normal cognition Speech: No Abnormal speech present Motor exam (neuro): 5/5 motor strength present throughout Course Course Course Narrative: Patient is afebrile and hemodynamically stable. Ordered EKG, basic labs, XR LLE tibia/fibula and ankle, US LLE. Reevaluation(s) Reevaluation #1: US unremarkable. XR LLE unremarkable. Labs reviewed. Baseline anemia. Mild baseline thrombocytopenia. Patient's son at bedside - he is requesting patient be discharged to home to follow up with her home physical therapy. He declined short term rehab. Explained to patient's son we did not find the cause of his mother's LLE pain today. She will likely continue to have difficulty with ambulation due to significant deconditioning. Patient's son voiced understanding and would still like to bring her home. Plan: Discharge to home with PCP follow up Return precautions given Medical Decision Making Lab Data 01/11/24 14:54 01/11/24 14:53 Labs: Lab Results 01/11/24 01/11/24 Range/Units 14:53 14:54 WBC 6.3 (4.8-10.8) X10*3/uL RBC 3.34 L (4.20-5.50) X10*6/uL Hgb 10.2 L (12.0-16.0) g/dl Hct 33.4 L (37.0-47.0) % MCV 100.0 H (80.0-98.0) fL MCH 30.5 (27.0-33.0) pg MCHC 30.5 L (31.0-35.0) g/dl RDW 12.9 (11.0-16.0) % Plt Count 159 L (160-400) X10*3/uL MPV 10.3 (9.4-12.3) fL Immature Gran % (Auto) 0.3 (0.0-0.4) % Neut % (Auto) 61.3 (45-73) % Lymph % (Auto) 26.8 (20-40) % Nelson % (Auto) 8.7 (2-11) % Eos % (Auto) 2.4 (0-4) % Baso % (Auto) 0.5 (0-2) % Lymph # (Auto) 1.7 (1.2-4.9) X10*3/uL Nelson # (Auto) 0.6 (0.1-1.2) X10*3/uL Eos # (Auto) 0.2 (0.0-0.4) X10*3/uL Baso # (Auto) 0.0 (0.0-0.2) X10*3/uL Abs Immat Gran (auto) 0.02 (0.00-0.03) X10*3/uL Absolute Neuts (auto) 3.9 (2.0-8.3) x10*3/uL Absolute Nucleated RBC 0.000 (0.0-0.012) X10*3/uL Nucleated RBC % (auto) 0.0 (0.0-0.2) /100WBC Sodium 145 (135-145) mmol/L Potassium 4.0 D (3.3-5.1) mmol/L Chloride 93 L (96-108) mmol/L Carbon Dioxide 44 H* (22-29) mmol/L Anion Gap 12 (12-20) BUN 7 L (9-16) mg/dL Creatinine 0.67 (0.5-1.4) mg/dL Estim Creat Clear Calc 85.2 Estimated GFR > 60 Random Glucose 156 H (60-115) mg/dL Calcium 8.8 (8.4-10.2) mg/dL Total Bilirubin 0.2 (0.0-1.0) mg/dL Direct Bilirubin < 0.2 (0.0-0.5) mg/dL AST 10 (5-31) U/L ALT 7 (0-31) U/L Alkaline Phosphatase 45 (39-117) U/L Troponin I High Sens 8.0 (<3.5-17.0) ng/L B-Natriuretic Peptide 97 (<100) pg/mL Total Protein 6.8 (6.5-8.0) g/dL Albumin 3.5 (3.5-5.0) g/dL Independent Interpretation I performed an independent interpretation of an: EKG Interpretation: NSR 83BPM with PVC noted, non-ischemic EKG. Radiology Impression Discussion of test interpretation with radiology: I have reviewed the radiologist's reading. Radiologist Impression: EXAMINATION: US VENOUS ULTRASOUND WITH DOPPLER LOWER EXTREMITY, LEFT CLINICAL INFORMATION: Swelling and pain COMPARISON: None available. TECHNIQUE: Ultrasound of the deep veins is performed from the hip to the calf with compression sonography and color and pulse Doppler assessment. Spectral analysis with color-flow imaging is performed. FINDINGS: There is normal venous compression and respiratory variation and augmented flow. The visualized common femoral vein, superficial femoral vein, profunda femoral vein, popliteal vein, and the trifurcation region shows no evidence of deep venous thrombosis. There is limited visualization of the peroneal vein. There is no significant popliteal fossa cyst. If the patient's symptoms persist, followup ultrasound in 5 days 7 days might be of value to exclude proximal propagation from a non-visualized calf vein. US/US venous duplex LE LT IMPRESSION: No DVT demonstrated in the left lower extremity. EXAMINATION: XR TIBIA AND FIBULA, LEFT CLINICAL INFORMATION: Pain. COMPARISON: None available. TECHNIQUE: AP and lateral views of the left tibia and fibula were obtained. FINDINGS: No fracture. No osseous lesions. The knee and ankle joints appear maintained on these limited views. There are numerous calcific densities within the soft tissues. XR/XR tibia fibula LT 2V IMPRESSION: No fracture or dislocation. [address] [address] XRay Report Signed Patient: Magalie Live MR#: [id number] : 1945 Acct:[id number] Age/Sex: 78 / F ADM Date: 01/11/24 Loc: HO.ED Attending Dr: Ordering Physician: Shobha Yadav MD Date of Service: 01/11/24 Procedure(s): XR ankle LT min 3V Accession Number(s): [id number] cc: Shobha Yadav MD; Physician,Unknown ~ EXAMINATION: XR ANKLE, LEFT CLINICAL INFORMATION: Pain. COMPARISON: None available. TECHNIQUE: AP, lateral, and mortise views of the left ankle. FINDINGS: No fracture or dislocation. The ankle mortise is maintained. There are numerous calcifications within the soft tissues. There is moderate lower extremity edema. XR/XR ankle LT min 3V IMPRESSION: No fracture or dislocation. Lower extremity edema. Discharge Plan Discharge Clinical Impression: Left leg pain Patient Disposition: Home, Self-Care Instructions: Leg Pain (ED) Additional Instructions: As we discussed, you were seen today for left leg pain and weakness. You had an US of your left leg as well as XRs of your left lower leg and ankle which were all reassuring. Your labs did not have any obvious cause for your symptoms. Recommend you follow up with your primary doctor within the next 2 - 3 days for re-evaluation. Return to the emergency department for: Worsening leg pain Falls Passing out Prescriptions: No Action Janumet XR 50-1,000 mg tablet, ER multiphase 24 hr 1 tab PO DAILY pravastatin 40 mg tablet 40 mg PO QPM ergocalciferol (vitamin D2) 1,250 mcg (50,000 unit) capsule 1,250 mcg PO MO albuterol sulfate 90 mcg/actuation HFA aerosol inhaler 2 puff inhalation Q6H PRN (Reason: Wheezing) famotidine 20 mg tablet 20 mg PO BID pantoprazole 40 mg tablet,delayed release (DR/EC) 40 mg PO QAM carvedilol 12.5 mg Tablet 12.5 mg PO BID Qty: 60 0RF Protocol: Hold for SBP/HR < HOLD for SBP < : 90 HOLD for HR < : 60 acetaminophen 650 mg Suppository 650 mg ME Q4H PRN (Reason: Pain or fever) bisacodyl 10 mg Suppository 10 mg ME DAILY PRN (Reason: Constipation) Fleet Enema 19-7 gram/118 mL Enema 118 ml ME DAILY PRN (Reason: Constipation) acetaminophen [Tylenol] 325 mg Capsule 650 mg PO Q4H PRN (Reason: pain or fever) magnesium hydroxide [Milk Of Magnesia Concentrated] 2,400 mg/10 mL Suspension 30 ml PO DAILY PRN (Reason: Constipation) prednisone 20 mg tablet See Taper PO DAILY Taper: Prednisone 30 mg daily for 5 Days and 0 Hour 20 mg daily for 5 Days and 0 Hour 10 mg daily for 5 Days and 0 Hour oxycodone 5 mg Tablet 5 mg PO Q4H PRN (Reason: Pain, Severe (Pain Scale 7-10)) Qty: 10 0RF Rx Instructions: Partial Fill upon patient request. insulin glargine [Lantus U-100 Insulin] 100 unit/mL Solution 20 unit subcut BEDTIME Qty: 10 0RF insulin lispro [Admelog U-100 Insulin lispro] 100 unit/mL Solution See Protocol subcut QIDACHS Qty: 10 0RF Protocol: Insulin Correction Scale Less than or equal to 110 ---- Give (units): 0 111 to 150 Give (units): 0 151 to 200 Give (units): 2 201 to 250 Give (units): 4 251 to 300 Give (units): 6 301 to 350 Give (units): 8 Greater than 350 Give (units): 10 Call MD if Blood Glucose > : 350 insulin lispro [Admelog U-100 Insulin lispro] 100 unit/mL Solution 5 unit subcut QIDACHS Qty: 10 0RF losartan 50 mg tablet 50 mg PO DAILY Qty: 30 0RF (DME) lancets [TRUEplus Lancets] 33 gauge misc See Rx Instructions topical .MEDSUPPLY Qty: 100 Rx Instructions: As directed furosemide 40 mg tablet 40 mg PO QAM Print Language: Turkish
[2024-01-11 12:17] VITALS: BP 131/49; PULSE 84; RESP 18; TEMP 36.6; O2SAT 97; BMI 44.3
--- NOTE | 2024-01-11 12:37 | MHC.EDTECH ---
This pct obtained an EKG at 12:33pm there was no slot to chart on worklist RN Aware
[2024-01-11 15:00] LABS: MANUAL DIFF FLAG NO
[2024-01-11 15:03] LABS: Basophils Percent Auto 0.5 % (0-2); Eosinophils Absolute Auto 0.2 X10*3/uL (0.0-0.4); Eosinophils Percent Auto 2.4 % (0-4); Hematocrit 33.4 % (37.0-47.0); Hemoglobin 10.2 g/dl (12.0-16.0); Imm Gran Abs Auto 0.02 X10*3/uL (0.00-0.03); Imm Gran Pct Auto 0.3 % (0.0-0.4); Lymphocytes Absolute Auto 1.7 X10*3/uL (1.2-4.9); Lymphocytes Percent Auto 26.8 % (20-40); Mean Corpuscular HGB Conc 30.5 g/dl (31.0-35.0); Mean Corpuscular Hemoglobin 30.5 pg (27.0-33.0); Mean Platelet Volume 10.3 fL (9.4-12.3); Monocytes Absolute Auto 0.6 X10*3/uL (0.1-1.2); Monocytes Percent Auto 8.7 % (2-11); Neutrophils Absolute Auto 3.9 x10*3/uL (2.0-8.3); Neutrophils Percent Auto 61.3 % (45-73); Platelet Count 159 X10*3/uL (160-400); Red Blood Count 3.34 X10*6/uL (4.20-5.50); Red Cell Distribution Width 12.9 % (11.0-16.0); White Blood Count 6.3 X10*3/uL (4.8-10.8)
[2024-01-11 15:38] LABS: B Type Natriuretic Peptide 97 pg/mL (<100)
[2024-01-11 15:40] LABS: Alanine Aminotransferase 7 U/L (0-31); Albumin Level 3.5 g/dL (3.5-5.0); Alkaline Phosphatase 45 U/L (39-117); Anion Gap 12 (12-20); Aspartate Amino Transferase 10 U/L (5-31); Bilirubin Direct < 0.2 mg/dL (0.0-0.5); Bilirubin Total 0.2 mg/dL (0.0-1.0); Blood Urea Nitrogen 7 mg/dL (9-16); Calcium 8.8 mg/dL (8.4-10.2); Carbon Dioxide 44 mmol/L (22-29); Chloride 93 mmol/L (96-108); Creatinine Clr Calc Pharmacy 85.2; Estimated Glomerular Filt Rate > 60; Glucose Random 156 mg/dL (60-115); Sodium 145 mmol/L (135-145); Total Protein 6.8 g/dL (6.5-8.0)
[2024-01-11 16:30] VITALS: BP 150/75; PULSE 79; RESP 16; TEMP 36.6
[2024-01-11 19:40] VITALS: BP 160/90; PULSE 84; RESP 16; TEMP 36.6; O2SAT 93
== END 2024-01-11 19:43 | disposition home or self-care (01) ==
PROVIDERS: Emergency Provider Emergency Medicine
DX: M79.662 Pain in left lower leg (principal); R60.0 Localized edema; E11.9 Type 2 diabetes mellitus without complications; I10 Essential (primary) hypertension; J44.9 Chronic obstructive pulmonary disease, unspecified; J96.12 Chronic respiratory failure with hypercapnia; Z87.891 Personal history of nicotine dependence; Z79.899 Other long term (current) drug therapy; Z79.4 Long term (current) use of insulin
CPT/HCPCS: 36415; 73590; 73610; 80048; 80076; 83880; 84484; 85025; 93005; 93971; 99284

== ENCOUNTER → 2024-01-11 12:02 | Outpatient (BNV) | payer OTHER, SELFPAY | PROVIDERS: Emergency Provider Emergency Medicine; Visit Provider Internal Medicine Cardiovascular Disease | DX: I49.3 Ventricular premature depolarization (principal) | CPT/HCPCS: 93010 ==

== ENCOUNTER 2024-01-15 11:58 | Outpatient (REF) | payer OTHER, SELFPAY ==
[2024-01-15 14:21] LABS: MANUAL DIFF FLAG NO
[2024-01-15 14:25] LABS: Basophils Percent Auto 0.4 % (0-2); Eosinophils Absolute Auto 0.2 X10*3/uL (0.0-0.4); Eosinophils Percent Auto 3.4 % (0-4); Hematocrit 34.4 % (37.0-47.0); Hemoglobin 10.1 g/dl (12.0-16.0); Imm Gran Abs Auto 0.01 X10*3/uL (0.00-0.03); Imm Gran Pct Auto 0.2 % (0.0-0.4); Lymphocytes Absolute Auto 1.5 X10*3/uL (1.2-4.9); Lymphocytes Percent Auto 27.9 % (20-40); Mean Corpuscular HGB Conc 29.4 g/dl (31.0-35.0); Mean Corpuscular Hemoglobin 30.8 pg (27.0-33.0); Mean Corpuscular Volume 104.9 fL (80.0-98.0); Mean Platelet Volume 10.8 fL (9.4-12.3); Monocytes Absolute Auto 0.5 X10*3/uL (0.1-1.2); Monocytes Percent Auto 9.2 % (2-11); Neutrophils Absolute Auto 3.1 x10*3/uL (2.0-8.3); Neutrophils Percent Auto 58.9 % (45-73); Platelet Count 174 X10*3/uL (160-400); Red Blood Count 3.28 X10*6/uL (4.20-5.50); White Blood Count 5.2 X10*3/uL (4.8-10.8)
[2024-01-15 15:15] LABS: TSH reflex Free T4 0.88 uIU/mL (0.32-4.0)
[2024-01-15 15:40] LABS: Anion Gap 13 (12-20); Blood Urea Nitrogen 7 mg/dL (9-16); Calcium 8.9 mg/dL (8.4-10.2); Carbon Dioxide 47 mmol/L (22-29); Chloride 88 mmol/L (96-108); Estimated Glomerular Filt Rate > 60; Glucose Random 251 mg/dL (60-115); Potassium 3.5 mmol/L (3.3-5.1); Sodium 144 mmol/L (135-145)
== END 2024-01-15 11:59 | disposition home or self-care (01) ==
LOC: HO.CHCLDS 11:58
PROVIDERS: Visit Provider Internal Medicine
DX: Z13.89 Encounter for screening for other disorder (principal)
CPT/HCPCS: 36415; 80048; 84443; 85025

== ENCOUNTER 2024-01-15 18:46 | Emergency (ER) | payer OTHER, SELFPAY ==
[2024-01-15 19:09] VITALS: BP 172/98; PULSE 66; PULSE 67; RESP 18; TEMP 36.6; O2SAT 97; BMI 48.0
--- NOTE | 2024-01-15 19:19 | ECG_ITS ---
Test Reason : DYSPNEA Blood Pressure : / mmHG Vent. Rate : 066 BPM Atrial Rate : 066 BPM P-R Int : 160 ms QRS Dur : 080 ms QT Int : 396 ms P-R-T Axes : 019 021 036 degrees QTc Int : 415 ms Normal sinus rhythm Normal ECG When compared with ECG of 11-JAN-2024 12:33, Premature ventricular complexes are no longer Present Referred By: Rose Arellano Electronically Signed By:KAMRAN DUEÑAS
[2024-01-15 19:41] LABS: Venous Blood Gas Refer to POC result
[2024-01-15 19:42] LABS: VBG Base Excess 29.2 mmol/L; VBG HCO3 58 mmol/L (22-26); VBG pCO2 84 mmHg; VBG pH 7.45 (7.32-7.43); VBG pO2 69 mmHg
[2024-01-15 20:00] VITALS: BP 151/69; PULSE 80; RESP 20; TEMP 36.8; O2SAT 100
--- NOTE | 2024-01-15 20:07 | ED_ITS ---
HPI - General Adult General Chief complaint: General Medical Stated complaint: dizzy,headache Time Seen by Provider: 01/15/24 19:02 Source: patient, family and american sign language interpreter Mode of arrival: EMS History of Present Illness HPI narrative: 78-year-old female who arrives via EMS and states that she got a call from her primary care provider after her visit this morning and she was referred in for abnormality of the carbon dioxide. Patient uses 2 L of oxygen at baseline and also uses a CPAP at night or anytime that she is asleep. She has recently had a right fibular fracture for which she is in a walking boot in it appears that orthopedics has seen her approximately 2 weeks ago and she is receiving in house physical therapy and denies any new or worsening symptoms of shortness of breath. Related Data Home Medications ?Medication ?Instructions ?Recorded ?Confirmed lancets 33 gauge (TRUEplus Lancets) #100 ea 09/20/21 11/26/23 sitagliptin phos 50 mg-metformin 1 tab PO DAILY 02/20/22 11/26/23 ER 1,000 mg tablet,extend rel 24h mp (Janumet XR) furosemide 40 mg tablet 40 mg PO QAM 05/11/23 11/26/23 albuterol sulfate 90 mcg/actuation 2 puff inhalation Q6H PRN Wheezing 11/02/23 11/26/23 aerosol inhaler ergocalciferol (vitamin D2) 1,250 1,250 mcg PO MO 11/02/23 11/26/23 mcg (50,000 unit) capsule famotidine 20 mg tablet 20 mg PO BID 11/02/23 11/26/23 pantoprazole 40 mg tablet,delayed 40 mg PO QAM 11/02/23 11/26/23 release pravastatin 40 mg tablet 40 mg PO QPM 11/02/23 11/26/23 acetaminophen 325 mg capsule 650 mg PO Q4H PRN pain or fever 11/13/23 11/26/23 (Tylenol) acetaminophen 650 mg rectal 650 mg AZ Q4H PRN Pain or fever 11/13/23 11/26/23 suppository bisacodyl 10 mg rectal suppository 10 mg AZ DAILY PRN Constipation 11/13/23 11/26/23 magnesium hydroxide 2,400 mg/10 mL 30 ml PO DAILY PRN Constipation 11/13/23 11/26/23 oral suspension (Milk Of Magnesia Concentrated) prednisone 20 mg tablet See Taper PO DAILY 11/13/23 11/13/23 sodium phosphates 19 gram-7 118 ml AZ DAILY PRN Constipation 11/13/23 11/26/23 gram/118 mL enema (Fleet Enema) Previous Rx's ?Medication ?Instructions ?Recorded carvedilol 12.5 mg tablet 12.5 mg PO BID #60 tabs 11/07/23 insulin glargine 100 unit/mL 20 unit (0.2 mL) subcut BEDTIME 11/15/23 subcutaneous solution (Lantus #10 mL U-100 Insulin) insulin lispro 100 unit/mL 5 unit (0.05 mL) subcut QIDACHS 11/15/23 subcutaneous solution (Admelog #10 mL U-100 Insulin lispro) insulin lispro 100 unit/mL See Protocol subcut QIDACHS #10 mL 11/15/23 subcutaneous solution (Admelog U-100 Insulin lispro) losartan 50 mg tablet 50 mg PO DAILY #30 tabs 11/15/23 oxycodone 5 mg tablet 5 mg PO Q4H PRN Pain, Severe (Pain 11/15/23 Scale 7-10) #10 tabs Allergies Allergy/AdvReac Type Severity Reaction Status Date / Time No Known Allergies Allergy Verified 01/15/24 19:11 [No Known Allergies*] Review of Systems Review of Systems: Pertinent positives and negatives as stated in [facility] Past Medical History Source: nursing notes reviewed Medical History CHF (congestive heart failure) 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 indication of end stage renal disease in patient 6 to 64 years of age Lymphadenopathy Abdominal pain Bursitis of right hip Osteoarthritis of right hip Restrictive ventilatory defect Dyspnea on exertion Varicose veins of right lower extremity with inflammation Pneumonitis Pulmonary hypertension Hypertensive cardiovascular disease Acute hypoxic on chronic hypercapnic respiratory failure Acute on chronic respiratory failure with hypoxemia Obesity hypoventilation syndrome NICO (obstructive sleep apnea) GERD (gastroesophageal reflux disease) Hypertension Diabetes mellitus COPD (chronic obstructive pulmonary disease) Surgical History S/P laparoscopic cholecystectomy (07/14/21) Family History Family History Mother Diabetes Social History Social History Household Members: Family Housing: Assisted Living Facility Do you presently have visiting nurse or other home services: No Alcohol intake: never Patient Tobacco Use Status: Former Tobacco user Tobacco use type: Cigarette Years Smoked: 20 Smoked in Last 30 Days: No Advance Directives: No Advance Directives Information Provided: No service: No Current occupational status: unemployed and disabled Physical Exam ED Vital Signs: Vital Signs - 24 hr 01/15/24 19:09 Temperature 97.9 F Pulse Rate 66 Respiratory Rate 18 Blood Pressure 172/98 H Pulse Oximetry 97 Oxygen Delivery Method Room Air BMI result Body Mass Index 48.0 VITAL SIGNS: Reviewed. GENERAL: Elevated BMI, Well developed, well nourished, in no acute distress. HEAD: Normocephalic/atraumatic EYES: PERRLA, EOMI EARS: Ext canals without abnormality NOSE: Nares patent bilateral OROPHARYNX: no oral lesions noted, posterior pharynx clear NECK: Supple, no adenopathy LUNGS: Normal breath sounds. No adventitious sounds or accessory muscle use. SpO2<97> on 2 L nasal cannula chronically CARDIOVASCULAR: Regular rate and rhythm without noted murmurs, no JVD or lower extremity edema. ABDOMEN: Soft, non-tender, non-distended with bowel sounds. MUSCULOSKELETAL: No tenderness, deformities, or effusions noted on gross inspection. EXTREMITIES: No cyanosis, clubbing or edema. RLE: Walking boot in place SKIN: Inspection of the skin reveals no rashes NEUROLOGIC: Alert and oriented x 4. Strength and sensation to light touch were grossly intact x 4. Medical Decision Making Medical Decision Making MDM Narrative: 78-year-old female with history and clinical presentation, DDX: I can only surmise that primary care doctor was concerned regarding patient's chronic metabolic alkalosis which appears to have been present since October, she has no symptoms to suggest acute COPD or CHF exacerbation, she remains oxygenating well on baseline nasal cannula, she has no additional complaints of chest pain or shortness of breath and denies any constitutional symptoms to suggest any underlying infection. I reviewed all investigations and hematologic indices are chronically stable and there is no leukocytosis but there is a noted macrocytic anemia and no thrombocytopenia or left shift. VBG is chronically stable without respiratory acidosis and chronically elevated hypercapnia which is likely contributing to patient's compensated metabolic alkalosis. Chemistry indices do not demonstrate ALEXIA and again bicarb is noted to reflect a metabolic alkalosis which is likely compensatory for underlying pulmonary disease. Patient is otherwise discharged home in stable condition, laboratory studies were explained to the patient and her family. Differential Diagnosis Differential Diagnoses: The differential diagnosis associated with the presentation includes Please see the discussion above Admission/Observation Consideration of admission/observation: Escalation of care including admission/observation considered Please see the discussion above Lab Data MDM Lab Attestation statement: I reviewed the patient's lab results. Please see the discussion above Labs: Lab Results 01/15/24 Range/Units 19:36 VBG pH 7.45 H (7.32-7.43) VBG pCO2 84 mmHg VBG pO2 69 mmHg VBG HCO3 58 H (22-26) mmol/L VBG O2 Saturation 95.0 % VBG Base Excess 29.2 mmol/L Independent Interpretation I performed an independent interpretation of an: EKG Interpretation: Normal sinus rhythm, HR-66, no STEMI, AZ/QRS/QTC is within normal limits. External Record Review External record reviewed: Office record, Outpatient record, Prior outpatient labs and Prior outpatient radiology Chronic Conditions NICO, COPD, morbid obesity Critical Care Time Critical Care Time Critical Care Time: Yes Total Critical Care Time: 45 Attestation: I personally attest to this time spent taking care of the patient. Discharge Plan Discharge Clinical Impression: Metabolic alkalosis, NICO (obstructive sleep apnea) Patient Disposition: Home, Self-Care Instructions: Sleep Apnea (DC), Using Oxygen at Home (ED) Additional Instructions: 1. Please resume all home medications as prescribed. 2. Follow-up with your primary care doctor. Return to the ER for any worsening symptoms. Prescriptions: No Action Janumet XR 50-1,000 mg tablet, ER multiphase 24 hr 1 tab PO DAILY pravastatin 40 mg tablet 40 mg PO QPM ergocalciferol (vitamin D2) 1,250 mcg (50,000 unit) capsule 1,250 mcg PO MO albuterol sulfate 90 mcg/actuation HFA aerosol inhaler 2 puff inhalation Q6H PRN (Reason: Wheezing) famotidine 20 mg tablet 20 mg PO BID pantoprazole 40 mg tablet,delayed release (DR/EC) 40 mg PO QAM carvedilol 12.5 mg Tablet 12.5 mg PO BID Qty: 60 0RF Protocol: Hold for SBP/HR < HOLD for SBP < : 90 HOLD for HR < : 60 acetaminophen 650 mg Suppository 650 mg AZ Q4H PRN (Reason: Pain or fever) bisacodyl 10 mg Suppository 10 mg AZ DAILY PRN (Reason: Constipation) Fleet Enema 19-7 gram/118 mL Enema 118 ml AZ DAILY PRN (Reason: Constipation) acetaminophen [Tylenol] 325 mg Capsule 650 mg PO Q4H PRN (Reason: pain or fever) magnesium hydroxide [Milk Of Magnesia Concentrated] 2,400 mg/10 mL Suspension 30 ml PO DAILY PRN (Reason: Constipation) prednisone 20 mg tablet See Taper PO DAILY Taper: Prednisone 30 mg daily for 5 Days and 0 Hour 20 mg daily for 5 Days and 0 Hour 10 mg daily for 5 Days and 0 Hour oxycodone 5 mg Tablet 5 mg PO Q4H PRN (Reason: Pain, Severe (Pain Scale 7-10)) Qty: 10 0RF Rx Instructions: Partial Fill upon patient request. insulin glargine [Lantus U-100 Insulin] 100 unit/mL Solution 20 unit subcut BEDTIME Qty: 10 0RF insulin lispro [Admelog U-100 Insulin lispro] 100 unit/mL Solution See Protocol subcut QIDACHS Qty: 10 0RF Protocol: Insulin Correction Scale Less than or equal to 110 ---- Give (units): 0 111 to 150 Give (units): 0 151 to 200 Give (units): 2 201 to 250 Give (units): 4 251 to 300 Give (units): 6 301 to 350 Give (units): 8 Greater than 350 Give (units): 10 Call MD if Blood Glucose > : 350 insulin lispro [Admelog U-100 Insulin lispro] 100 unit/mL Solution 5 unit subcut QIDACHS Qty: 10 0RF losartan 50 mg tablet 50 mg PO DAILY Qty: 30 0RF (DME) lancets [TRUEplus Lancets] 33 gauge misc See Rx Instructions topical .MEDSUPPLY Qty: 100 Rx Instructions: As directed furosemide 40 mg tablet 40 mg PO QAM Referrals: Carmine Patel MD [Primary Care Provider] - Print Language: Indonesian
[2024-01-15 21:36] VITALS: BP 151/69; PULSE 80; RESP 20; TEMP 36.8; O2SAT 100
== END 2024-01-15 22:01 | disposition home or self-care (01) ==
PROVIDERS: Emergency Provider Student in an Organized Health Care Education/Training Program; PCP Internal Medicine
DX: E87.3 Alkalosis (principal); G47.33 Obstructive sleep apnea (adult) (pediatric); I10 Essential (primary) hypertension; E11.9 Type 2 diabetes mellitus without complications; Z99.89 Dependence on other enabling machines and devices; Z99.81 Dependence on supplemental oxygen
CPT/HCPCS: 36415; 80048; 82803; 84443; 85025; 93005; 99283; 99284

== ENCOUNTER → 2024-01-15 19:19 | Outpatient (BNV) | payer OTHER, SELFPAY | PROVIDERS: Emergency Provider Student in an Organized Health Care Education/Training Program; PCP Internal Medicine; Visit Provider Internal Medicine | DX: R06.00 Dyspnea, unspecified (principal) | CPT/HCPCS: 93010 ==

== ENCOUNTER 2024-02-05 09:18 | Outpatient (REF) | payer OTHER, SELFPAY ==
--- NOTE | ~2024-02-05 | MM_ITS ---
EXAMINATION: MM SCREENING DIGITAL BREAST TOMOSYNTHESIS, BILATERAL CLINICAL INFORMATION: Screening. Asymptomatic. COMPARISON: Mammography: This study is compared with prior exams dating back to 2019. TECHNIQUE: Digital breast tomosynthesis is performed in both the craniocaudal and mediolateral oblique views along with computer-aided detection (CAD). Synthesized 2D images are generated from the tomosynthesis. FINDINGS: There are scattered areas of fibroglandular density (ACR BI-RADS breast composition Category b). In the upper outer quadrant of the right breast, there are grouped calcifications which warrant additional mammographic imaging magnification. In the left breast, no are no significant masses, abnormal calcifications, or other abnormalities. MM/MM tomosynthesis screening BI IMPRESSION: Right breast calcifications warrant additional mammographic imaging with magnification. No mammographic signs of malignancy left breast. ASSESSMENT: BI-RADS BI-RADS 0 - Incomplete: Needs additional Imaging. RECOMMENDATION: Additional views of the right breast. Radiology department staff will contact the patient for additional imaging. Additional Imaging required This examination should not preclude the clinical evaluation of a suspicious palpable abnormality. This patient's information was entered into a reminder system with a target due date for their next mammogram.
== END 2024-02-05 09:19 | disposition home or self-care (01) ==
LOC: HO.MAMMO 09:18
PROVIDERS: PCP Internal Medicine; Visit Provider Internal Medicine
DX: Z12.31 Encounter for screening mammogram for malignant neoplasm of breast (principal)
CPT/HCPCS: 77063; 77067

== ENCOUNTER → 2024-02-05 09:30 | Outpatient (BNV) | payer OTHER, SELFPAY | PROVIDERS: PCP Internal Medicine; Visit Provider Radiology Diagnostic Radiology | DX: Z12.31 Encounter for screening mammogram for malignant neoplasm of breast (principal) | CPT/HCPCS: 77063; 77067 ==

== ENCOUNTER 2024-02-08 12:35 | Outpatient (REF) | payer OTHER, SELFPAY | END 2024-02-08 12:36 | disposition home or self-care (01) | LOC: HO.HOSX 12:35 | PROVIDERS: Visit Provider Physician Assistant | DX: Z13.89 Encounter for screening for other disorder (principal) ==

== ENCOUNTER 2024-02-21 08:20 | Outpatient (REF) | payer OTHER, SELFPAY ==
[2024-02-21 11:25] LABS: MANUAL DIFF FLAG NO
[2024-02-21 11:32] LABS: Basophils Percent Auto 0.5 % (0-2); Eosinophils Absolute Auto 0.2 X10*3/uL (0.0-0.4); Hematocrit 36.7 % (37.0-47.0); Hemoglobin 11.1 g/dl (12.0-16.0); Imm Gran Abs Auto 0.02 X10*3/uL (0.00-0.03); Imm Gran Pct Auto 0.3 % (0.0-0.4); Lymphocytes Absolute Auto 1.4 X10*3/uL (1.2-4.9); Lymphocytes Percent Auto 22.6 % (20-40); Mean Corpuscular HGB Conc 30.2 g/dl (31.0-35.0); Mean Corpuscular Hemoglobin 30.7 pg (27.0-33.0); Mean Corpuscular Volume 101.4 fL (80.0-98.0); Mean Platelet Volume 10.7 fL (9.4-12.3); Monocytes Absolute Auto 0.5 X10*3/uL (0.1-1.2); Neutrophils Absolute Auto 4.2 x10*3/uL (2.0-8.3); Neutrophils Percent Auto 65.6 % (45-73); Platelet Count 174 X10*3/uL (160-400); Red Blood Count 3.62 X10*6/uL (4.20-5.50); Red Cell Distribution Width 12.5 % (11.0-16.0); White Blood Count 6.4 X10*3/uL (4.8-10.8)
[2024-02-21 11:45] LABS: Uric Acid 5.1 mg/dL (2.4-5.7)
[2024-02-21 12:01] LABS: Vitamin D 25-OH Total 29.2 ng/mL (>30)
[2024-02-21 12:02] LABS: Parathyroid Hormone Intact 45.8 pg/mL (8.7-77.1)
== END 2024-02-21 08:21 | disposition home or self-care (01) ==
LOC: HO.HHCL 08:20
PROVIDERS: Visit Provider Internal Medicine
DX: I10 Essential (primary) hypertension (principal)
CPT/HCPCS: 36415; 82306; 83970; 84550; 85025

== ENCOUNTER → 2024-02-22 19:16 | Outpatient (REF) | payer OTHER, SELFPAY | LOC: HO.SL 19:16 | PROVIDERS: PCP Internal Medicine; Visit Provider Internal Medicine Pulmonary Disease | DX: G47.33 Obstructive sleep apnea (adult) (pediatric) (principal); J96.12 Chronic respiratory failure with hypercapnia | CPT/HCPCS: 95811 ==

== ENCOUNTER 2024-03-12 12:59 | Outpatient (REF) | payer OTHER, SELFPAY ==
--- NOTE | ~2024-03-12 | MM_ITS ---
EXAMINATION: MM DIAGNOSTIC DIGITAL MAMMOGRAPHY, RIGHT CLINICAL INFORMATION: Follow-up diagnostic views for calcifications seen right breast upper-outer quadrant on screening exam. COMPARISON: Mammography: 02/05/2024. Exams dating back to 2019 and 2016. TECHNIQUE: Digital mammography is performed in the following views: 2-D Spot magnification right CC and ML views were obtained. FINDINGS: There are scattered areas of fibroglandular density (ACR BI-RADS breast composition Category b). Loosely grouped calcifications noted in the upper outer quadrant right breast are completely unchanged from 06/03/2019 magnification views, and for that report, or stable from 2016 exams. These findings are benign. No further follow-up is recommended. Stable intramammary lymph nodes in the upper outer right breast. Results are provided to the patient at time of visit by the technologist. MM/MM added views RT IMPRESSION: No mammographic evidence of malignancy. Stable benign calcifications right breast. No further follow-up recommended. Recommend the patient return to routine annual screening. ASSESSMENT: BI-RADS BI-RADS 2 - Benign Findings RECOMMENDATION: 1 year F/U This patient's information was entered into a reminder system with a target due date for their next mammogram.
== END 2024-03-12 13:00 | disposition home or self-care (01) ==
LOC: HO.MAMMO 12:59
PROVIDERS: PCP Internal Medicine; Visit Provider Internal Medicine
DX: R92.1 Mammographic calcification found on diagnostic imaging of breast (principal)
CPT/HCPCS: 77065

== ENCOUNTER → 2024-03-12 13:30 | Outpatient (BNV) | payer OTHER, SELFPAY | PROVIDERS: PCP Internal Medicine; Visit Provider Radiology Diagnostic Radiology | DX: R92.1 Mammographic calcification found on diagnostic imaging of breast (principal) | CPT/HCPCS: 77065 ==

== ENCOUNTER 2024-03-13 09:23 | Outpatient (REF) | payer OTHER, SELFPAY ==
--- NOTE | ~2024-03-13 | XR_ITS ---
EXAMINATION: XR ANKLE, RIGHT CLINICAL INFORMATION: Pain right ankle and joints of foot. COMPARISON: 01/11/2024. TECHNIQUE: AP, lateral, and mortise views of the right ankle. FINDINGS: There is increased instability of the ankle with with increased lateral subluxation of the talus relative to the tibial plafond and asymmetric increased widening of the medial tibiotalar joint. Redemonstration of an oblique, displaced fracture of the distal diametaphysis of the fibula with increased overriding of fracture fragments. There is some bridging callus formation. The bones are diffusely demineralized. Multiple soft tissue calcifications characteristic of phleboliths with diffuse soft tissue swelling and joint effusion. Moderate plantar calcaneal spur. Degenerative changes at the dorsal aspect of the mid foot with pes planus. XR/XR ankle RT min 3V IMPRESSION: Increased instability of the ankle with increased tibiotalar subluxation widening of the medial tibiotalar space. Redemonstration of an oblique, displaced fracture of the distal diametaphysis of the fibula with increased overriding of fracture fragments. There is some bridging callus formation. This study was presented to me March 31, 2024 for interpretation. PSA staff will provide results to referring provider at this time.
== END 2024-03-13 09:24 | disposition home or self-care (01) ==
LOC: HO.XRAY 09:23
PROVIDERS: Absent Provider Physician Assistant; PCP Internal Medicine; Visit Provider Nurse Practitioner Family
DX: M25.571 Pain in right ankle and joints of right foot (principal); E66.2 Morbid (severe) obesity with alveolar hypoventilation; Z99.81 Dependence on supplemental oxygen
CPT/HCPCS: 73610; 99212

== ENCOUNTER 2024-03-13 09:51 | Outpatient (AMB) | payer OTHER, SELFPAY ==
[2024-03-13 09:56] VITALS: BP 130/72; PULSE 77; O2SAT 97; BMI 45.7
--- NOTE | 2024-03-13 09:56 | MHC.OFFVIS ---
Vital Signs 03/13/24 09:56 Height 5 ft 3 in Weight 257 lb 15.053 oz BMI 45.7 BP 130/72 Blood Pressure Location Rt brachial Position Sitting Pulse 77 Pulse Source Doppler Pulse Oximetry (%) 97 Oxygen Delivery Method Nasal Cannula Oxygen Flow Rate 2 Intake Visit Reasons: Obstructive sleep apnea [employer] Supervisor Required: Yes [employer] Supervisor Name: Kaylynn Jain Tresa Allergies No Known Allergies [No Known Allergies*] Allergy (Verified 03/13/24 10:03) HPI HPI Obstructive sleep apnea: Details: 78-year-old lady, former smoker, quit over 30 years prior, with underlying history morbid obesity, NICO/obesity hypoventilation syndrome diastolic dysfunction followed for severe NICO. Patient was recently hospitalized and discharged on supplemental oxygen. She continues to use her CPAP. [facility] Medical History (Updated 03/13/24 @ 10:30 by Stephane Chawla MD) NICO (obstructive sleep apnea) CHF (congestive heart failure) 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 indication of end stage renal disease in patient 6 to 64 years of age Lymphadenopathy Abdominal pain Bursitis of right hip Osteoarthritis of right hip Restrictive ventilatory defect Dyspnea on exertion Varicose veins of right lower extremity with inflammation Pneumonitis Pulmonary hypertension Hypertensive cardiovascular disease Acute hypoxic on chronic hypercapnic respiratory failure Acute on chronic respiratory failure with hypoxemia Obesity hypoventilation syndrome GERD (gastroesophageal reflux disease) Hypertension Diabetes mellitus COPD (chronic obstructive pulmonary disease) Surgical History S/P laparoscopic cholecystectomy (07/14/21) Family History Mother Diabetes Social History Household Members: Family Housing: Assisted Living Facility Do you presently have visiting nurse or other home services: No Alcohol intake: never Patient Tobacco Use Status: Former Tobacco user Tobacco use type: Cigarette Years Smoked: 20 service: No Current occupational status: unemployed and disabled Review of Systems Const Denies daytime sleepiness, Denies excessive sweating, Denies fatigue, Denies fever(s), Denies lethargy, Denies malaise, Denies night sweats, Denies snoring and Denies weight loss Eyes Denies blurry vision and Denies itchy eyes ENT Denies nasal congestion, Denies post nasal drip, Denies sinus pain, Denies sinus pressure and Denies other ( Thrush) Card Denies chest pain, Denies pedal edema, Denies dyspnea, Denies orthopnea and Denies paroxysmal nocturnal dyspnea Resp Denies cough, Denies hemoptysis, Denies excessive phlegm production, Denies dyspnea, Denies snoring and Denies wheezing GI Denies abdominal pain and Denies heartburn Musc Denies myalgias, Denies arthralgias and Denies joint swelling Skin/Breast Denies rash Neuro Denies memory loss and Denies seizure-like activity Psych Denies abnormal sleep pattern, Denies anxiety and Denies memory loss Endo Denies excessive sweating, Denies fatigue and Denies heat intolerance Ralph/Lymph Denies easy bruising Aller/Immun Denies itchy eyes, Denies seasonal rhinorrhea and Denies wheezing Physical Exam Vital Signs: Last Vital Signs Pulse 77 03/13/24 09:56 BP 130/72 03/13/24 09:56 Pulse Ox 97 03/13/24 09:56 Oxygen Delivery Method Nasal Cannula 03/13/24 09:56 Oxygen Flow Rate 2 03/13/24 09:56 BMI result Body Mass Index 45.7 Const General: no acute distress and alert Nutritional Appearance: obese Orientation/consciousness: Other orientation findings ( oriented) HEENT Head: Yes atraumatic Eyes General: appearance normal, both eyes and all related structures Sclerae: sclerae normal EOM: EOMs intact bilaterally Neck Neck: Yes supple Lymphatic: no lymphadenopathy noted Resp Effort & Inspection: normal respiratory effort and no use of accessory muscles Auscultation: clear to auscultation bilaterally Cardio Rate: regular rate Rhythm: regular rhythm Heart sounds: no gallops, no murmurs and no rubs Skin General skin exam: other ( warm) Extrem General: No clubbing, No cyanosis and No edema Assessment & Plan Assessment & Plan (1) Obesity hypoventilation syndrome: Code(s): E66.2 - Morbid (severe) obesity with alveolar hypoventilation Category: Medical Plan: Continue on NIPPV therapy. (2) NICO (obstructive sleep apnea): Code(s): G47.33 - Obstructive sleep apnea (adult) (pediatric) Category: Medical Plan: Results of sleep study reviewed, CPAP reordered. (3) Supplemental oxygen dependent: Code(s): Z99.81 - Dependence on supplemental oxygen Category: Medical Plan: Does not require supplemental oxygen at rest, but does need to use it at night and at this time with exertion. Will repeat 6 minute walk evaluation after patient is able to walk. Coding Level of Care Code Est Pt Level 4 (58946) Diagnoses Obesity hypoventilation syndrome E66.2 NICO (obstructive sleep apnea) G47.33 Supplemental oxygen dependent Z99.81
== END 2024-03-13 10:17 | disposition home or self-care (01) ==
PROVIDERS: PCP Internal Medicine; Visit Provider Internal Medicine Pulmonary Disease
DX: G47.33 Obstructive sleep apnea (adult) (pediatric) (principal); Z99.81 Dependence on supplemental oxygen
CPT/HCPCS: 99214

== ENCOUNTER 2024-03-28 10:20 | Emergency (ER) | payer OTHER, SELFPAY ==
--- NOTE | ~2024-03-28 | XR_ITS ---
EXAMINATION: XR KNEE, RIGHT CLINICAL INFORMATION: Pain, injury. COMPARISON: Radiograph right knee 06/06/2017. TECHNIQUE: Four views of the right knee. FINDINGS: Chronic appearing fracture of the proximal fibula with callus formation. No acute fractures or subluxation. 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 Patellar spurring. Trace joint effusion. Diffuse soft tissue thickening. Mild scattered vascular calcifications. XR/XR knee RT 4V IMPRESSION: 1. No acute fractures or subluxation. 2. Chronic appearing fracture of the proximal fibula. 3. 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 4. Trace joint effusion. 5. Significant diffuse soft tissue thickening/swelling.
[2024-03-28 10:34] VITALS: BP 162/90; PULSE 77; RESP 20; TEMP 36.5; O2SAT 95; BMI 42.5
--- NOTE | 2024-03-28 10:56 | ED.GENADULT ---
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 (all interactions with this patient were facilitated via an [facility] rabble furnace tender) Mode of arrival: wheelchair Limitations: language barrier (all interactions with this patient were facilitated via an [facility] rabble furnace tender) History of Present Illness ED Provider: Elzbieta Franz PA-C HPI narrative: Patient is a 78 year old assigned female at with a history of a right ankle fracture currently being followed by [facility] ortho, chronic oxygen use, CHF, and NICO presenting to the emergency department today with right and left knee pain. Patient states that she has been having right knee pain and years ago she got an injection into that knee and it helped. Patient states that she would like an injection today. Patient also states that 1 week ago she fell onto her left lower leg and has been having tingling in that area. Patient denies any head strike or loss of consciousness. Patient denies any dizziness, lightheadedness, abdominal pain, nausea, vomiting, fever, chills, blurry vision, double vision, loss of vision, chest pain, difficulty breathing, shortness of breath, back pain, night sweats, pain with urination, increased urinary frequency, increased urinary urgency, blood in her urine or stool, syncope or a near syncopal episode, bowel incontinence, bladder incontinence, or any other complaints at this time. Relieving factors: none Exacerbating factors: none Associated symptoms: denies other symptoms Treatments prior to arrival: none Related Data Home Medications ?Medication ?Instructions ?Recorded ?Confirmed lancets 33 gauge (TRUEplus Lancets) #100 ea 09/20/21 11/26/23 sitagliptin phos 50 mg-metformin 1 tab PO DAILY 02/20/22 11/26/23 ER 1,000 mg tablet,extend rel 24h mp (Janumet XR) furosemide 40 mg tablet 40 mg PO QAM 05/11/23 11/26/23 albuterol sulfate 90 mcg/actuation 2 puff inhalation Q6H PRN Wheezing 11/02/23 11/26/23 aerosol inhaler ergocalciferol (vitamin D2) 1,250 1,250 mcg PO MO 11/02/23 11/26/23 mcg (50,000 unit) capsule famotidine 20 mg tablet 20 mg PO BID 11/02/23 11/26/23 pantoprazole 40 mg tablet,delayed 40 mg PO QAM 11/02/23 11/26/23 release pravastatin 40 mg tablet 40 mg PO QPM 11/02/23 11/26/23 acetaminophen 325 mg capsule 650 mg PO Q4H PRN pain or fever 11/13/23 11/26/23 (Tylenol) acetaminophen 650 mg rectal 650 mg NE Q4H PRN Pain or fever 11/13/23 11/26/23 suppository bisacodyl 10 mg rectal suppository 10 mg NE DAILY PRN Constipation 11/13/23 11/26/23 magnesium hydroxide 2,400 mg/10 mL 30 ml PO DAILY PRN Constipation 11/13/23 11/26/23 oral suspension (Milk Of Magnesia Concentrated) prednisone 20 mg tablet See Taper PO DAILY 11/13/23 11/13/23 sodium phosphates 19 gram-7 118 ml NE DAILY PRN Constipation 11/13/23 11/26/23 gram/118 mL enema (Fleet Enema) Previous Rx's ?Medication ?Instructions ?Recorded carvedilol 12.5 mg tablet 12.5 mg PO BID #60 tabs 11/07/23 insulin glargine 100 unit/mL 20 unit (0.2 mL) subcut BEDTIME 11/15/23 subcutaneous solution (Lantus #10 mL U-100 Insulin) insulin lispro 100 unit/mL 5 unit (0.05 mL) subcut QIDACHS 11/15/23 subcutaneous solution (Admelog #10 mL U-100 Insulin lispro) insulin lispro 100 unit/mL See Protocol subcut QIDACHS #10 mL 11/15/23 subcutaneous solution (Admelog U-100 Insulin lispro) losartan 50 mg tablet 50 mg PO DAILY #30 tabs 11/15/23 oxycodone 5 mg tablet 5 mg PO Q4H PRN Pain, Severe (Pain 11/15/23 Scale 7-10) #10 tabs Allergies Allergy/AdvReac Type Severity Reaction Status Date / Time No Known Allergies Allergy Verified 03/28/24 10:36 [No Known Allergies*] Review of Systems Constitutional: Constitutional: Reports no additional constitutional complaints, Denies chills, Denies fever(s) and Denies night sweats Eyes: Eyes: Reports no additional eye complaints, Denies blurry vision, Denies change in vision, Denies diplopia, Denies eye discharge, Denies loss of vision and Denies eye pain ENT: Denies dizziness Cardiovascular: Cardiovascular: Reports no additional cardiovascular complaints, Denies chest pain, Denies lightheadedness, Denies Loss of Consciousness and Denies dyspnea Respiratory: Respiratory: Reports no additional respiratory complaints and Denies dyspnea Gastrointestinal: Gastrointestinal: Reports no additional gastrointestinal complaints, Denies abdominal pain, Denies melena, Denies hematochezia, Denies change in bowel habits and Denies change in stool character Genitourinary: Genitourinary: Denies hematuria, Denies urinary frequency, Denies dysuria, Denies urinary incontinence, Denies urinary hesitancy and Denies urinary urgency Musculoskeletal: Musculoskeletal: Reports no additional musculoskeletal complaints, Denies numbness and Denies tingling Comments: right knee pain, left lateral knee tingling Neurologic: Denies dizziness, Denies loss of vision, Denies numbness and Denies tingling Psychiatric: Psychiatric: Reports no additional psychiatric complaints Endocrine: Endocrine: Reports no additional endocrine complaints Hematologic/Lymphatic: Hematologic/Lymphatic: Reports no additional hematologic/lymphatic complaints Allergic/Immunologic: Allergic/Immunologic: Reports no additional allergic/immunologic complaints [facility] Past Medical History Attestation statement: The following information was validated with the patient. Source: old records reviewed and nursing notes reviewed Medical History NICO (obstructive sleep apnea) CHF (congestive heart failure) 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 indication of end stage renal disease in patient 6 to 64 years of age Lymphadenopathy Abdominal pain Bursitis of right hip Osteoarthritis of right hip Restrictive ventilatory defect Dyspnea on exertion Varicose veins of right lower extremity with inflammation Pneumonitis Pulmonary hypertension Hypertensive cardiovascular disease Acute hypoxic on chronic hypercapnic respiratory failure Acute on chronic respiratory failure with hypoxemia Obesity hypoventilation syndrome GERD (gastroesophageal reflux disease) Hypertension Diabetes mellitus COPD (chronic obstructive pulmonary disease) Surgical History S/P laparoscopic cholecystectomy (07/14/21) Family History Family History Mother Diabetes Social History Social History Household Members: Family Housing: Assisted Living Facility Do you presently have visiting nurse or other home services: No Alcohol intake: never Patient Tobacco Use Status: Former Tobacco user Tobacco use type: Cigarette Years Smoked: 20 Advance Directives: Yes Advance Directives on File: Yes Advance Directives Date on File: 02/23/24 Do you have a plan to hurt others: No Plan service: No Current occupational status: unemployed and disabled Physical Exam ED Vital Signs: Vital Signs - 24 hr 03/28/24 10:34 03/28/24 13:23 Temperature 97.7 F 97.7 F Pulse Rate 77 77 Respiratory Rate 20 20 Blood Pressure 162/90 H 162/90 H Pulse Oximetry 95 95 Oxygen Delivery Method Nasal Cannula Nasal Cannula BMI result Body Mass Index 42.5 Const General: cooperative, no acute distress, alert and awake Nutritional Appearance: well nourished Orientation/consciousness: patient oriented x3 Limitations: no limitations HENMT Head: Yes normal to inspection and Yes atraumatic Ears: hearing grossly normal bilaterally and external ears normal General nose exam: Normal external nose present, no nasal discharge noted and no epistaxis Face and sinus: Yes normal facial exam, No abrasion and No laceration Mouth: Normal oral and palatal mucosa present, no drooling and no muffled voice Eyes General: appearance normal, both eyes and all related structures Periorbital: periorbital findings normal Eyelids: Yes eyelids normal Conjunctivae: conjunctivae normal Pupils: Equal, round and reactive pupils present EOM: EOMs intact bilaterally Neck Neck: Yes normal visual inspection, Yes full ROM and Yes no lymphadenopathy Chest Chest palpation & inspection: normal inspection of the chest Resp Effort & Inspection: normal respiratory effort and able to speak in complete sentences GI Inspection: Yes normal to inspection Neuro General: patient oriented x3 and moves all extremities Cranial nerves: Yes Equal, round and reactive pupils present Cognition (Neuro): normal cognition Extrem Other: right foot/ankle in a walking boot - causing limited ROM left lower extremity has full ROM and no pain with palpation General: Yes capillary refill normal Psych Appearance: grossly normal Mental Status: mental status grossly normal Affect: normal affect Attitude: cooperative Thought process: Normal thought process present Thought content: Normal thought content present Insight: Good insight present (Psych) Medications Administered Discontinued Medications Generic Name Dose Route Start Last Admin Trade Name Freq PRN Reason Stop Dose Admin Methylprednisolone Sodium Succinate 60 mg 07/12/24 11:21 03/28/24 12:44 Methylprednisolone Sod Succ 125 Mg/2 Ml Vial IM 03/28/24 11:22 60 mg ONCE ONE Administration Medical Decision Making Medical Decision Making [facility] Narrative: Patient is a 78 year old assigned female at with a history of a right ankle fracture currently being followed by [facility] ortho, chronic oxygen use, CHF, and NICO presenting to the emergency department today with right knee pain and left knee tingling . Patient's physical exam was as noted in the physical exam portion of this note. Patient's left knee x-ray showed an OLD fibular fracture but was otherwise unremarkable. I spoke to the orthopedic team who stated that given patient has no pain to palpation over the area and has normal ROM, she can follow up outpatient and does not need splinted at this time. I explained my physical exam findings as well as all test results to the patient. I answered all questions asked by the patient. I stressed the importance of the patient taking her medication as directed (either prescribed or as the over the counter packaging recommends). I stressed the importance of the patient following up with her primary care provider and with the orthopedic team. I stressed the importance of the patient returning to the emergency department immediately if her symptoms were to worsen or if she were to develop any dizziness, shortness of breath, difficulty breathing, chest pain, blurry vision, loss of vision, nausea, vomiting, abdominal pain, fever, chills, back pain, or any other complaints. Patient verbalized agreement and understanding with this treatment plan and discharge. Differential Diagnosis Differential Diagnoses: The differential diagnosis associated with the presentation includes Knee pain Knee sprain Admission/Observation Consideration of admission/observation: Escalation of care including admission/observation considered Patient would have been admitted to the hospital had her work up had any findings where hospital admission was appropriate and her clinical presentation warranted hospital admission. Consult Healthcare Provider Management of the patient was discussed with: Votator Machine Operator (spoke to the orthopedic team as noted in the MDM Rationale portion of this note.) Independent Interpretation I performed an independent interpretation of an: Plain X-Ray Interpretation: My interpretation is in agreement with the radiologist's impression of this imaging study. EXAMINATION: XR KNEE, RIGHT CLINICAL INFORMATION: Pain, injury. COMPARISON: Radiograph right knee 06/06/2017. TECHNIQUE: Four views of the right knee. FINDINGS: Chronic appearing fracture of the proximal fibula with callus formation. No acute fractures or subluxation. 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 Patellar spurring. Trace joint effusion. Diffuse soft tissue thickening. Mild scattered vascular calcifications. XR/XR knee RT 4V IMPRESSION: 1. No acute fractures or subluxation. 2. Chronic appearing fracture of the proximal fibula. 3. 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 4. Trace joint effusion. 5. Significant diffuse soft tissue thickening/swelling. Dictated By: Sudha Palomares Signed By: Electronically signed by Sudha Palomares 03/28/24 1208 Radiology Impression Discussion of test interpretation with radiology: I have reviewed the radiologist's reading. Discharge Plan Discharge Clinical Impression: Acute knee pain Patient Disposition: Home, Self-Care Instructions: Knee Pain (ED) Additional Instructions: Your left knee x-ray showed evidence of an OLD fibular break. You are not having pain over that area to palpation and therefore, nothing needs to be done at this time. Follow up with your primary care provider and an orthopedic provider. Return to the emergency department immediately if your symptoms worsen or if you develop any dizziness, shortness of breath, difficulty breathing, chest pain, blurry vision, loss of vision, nausea, vomiting, abdominal pain, fever, chills, back pain, or any other complaints. La radiograf?a de costa rod[place]quier[place] tripp mostrado indicios de carlos rotura sherri del peron?. No tiene dolor en verito shady a la palpaci?n y, por lo tanto, no es necesario hacer nada en ruchi momento. Alaina un seguimiento con costa m?dico de atenci?n primaria y con un traumat?logo. Vuelva al servicio de urgencias inmediatamente si pierre s?ntomas empeoran o si presenta mareos, falta de aliento, dificultad para respirar, dolor tor?cico, visi?n borrosa, p?rdida de visi?n, n?useas, v?mitos, dolor abdominal, fiebre, escalofr?os, dolor de espalda o cualquier otra molestia. Prescriptions: No Action Janumet XR 50-1,000 mg tablet, ER multiphase 24 hr 1 tab PO DAILY pravastatin 40 mg tablet 40 mg PO QPM ergocalciferol (vitamin D2) 1,250 mcg (50,000 unit) capsule 1,250 mcg PO MO albuterol sulfate 90 mcg/actuation HFA aerosol inhaler 2 puff inhalation Q6H PRN (Reason: Wheezing) famotidine 20 mg tablet 20 mg PO BID pantoprazole 40 mg tablet,delayed release (DR/EC) 40 mg PO QAM carvedilol 12.5 mg Tablet 12.5 mg PO BID Qty: 60 0RF Protocol: Hold for SBP/HR < HOLD for SBP < : 90 HOLD for HR < : 60 acetaminophen 650 mg Suppository 650 mg NE Q4H PRN (Reason: Pain or fever) bisacodyl 10 mg Suppository 10 mg NE DAILY PRN (Reason: Constipation) Fleet Enema 19-7 gram/118 mL Enema 118 ml NE DAILY PRN (Reason: Constipation) acetaminophen [Tylenol] 325 mg Capsule 650 mg PO Q4H PRN (Reason: pain or fever) magnesium hydroxide [Milk Of Magnesia Concentrated] 2,400 mg/10 mL Suspension 30 ml PO DAILY PRN (Reason: Constipation) prednisone 20 mg tablet See Taper PO DAILY Taper: Prednisone 30 mg daily for 5 Days and 0 Hour 20 mg daily for 5 Days and 0 Hour 10 mg daily for 5 Days and 0 Hour oxycodone 5 mg Tablet 5 mg PO Q4H PRN (Reason: Pain, Severe (Pain Scale 7-10)) Qty: 10 0RF Rx Instructions: Partial Fill upon patient request. insulin glargine [Lantus U-100 Insulin] 100 unit/mL Solution 20 unit subcut BEDTIME Qty: 10 0RF insulin lispro [Admelog U-100 Insulin lispro] 100 unit/mL Solution See Protocol subcut QIDACHS Qty: 10 0RF Protocol: Insulin Correction Scale Less than or equal to 110 ---- Give (units): 0 111 to 150 Give (units): 0 151 to 200 Give (units): 2 201 to 250 Give (units): 4 251 to 300 Give (units): 6 301 to 350 Give (units): 8 Greater than 350 Give (units): 10 Call MD if Blood Glucose > : 350 insulin lispro [Admelog U-100 Insulin lispro] 100 unit/mL Solution 5 unit subcut QIDACHS Qty: 10 0RF losartan 50 mg tablet 50 mg PO DAILY Qty: 30 0RF (DME) lancets [TRUEplus Lancets] 33 gauge misc See Rx Instructions topical .MEDSUPPLY Qty: 100 Rx Instructions: As directed furosemide 40 mg tablet 40 mg PO QAM Referrals: [facility] Orthopedic Surgeons [Provider Group] (Follow up with the orthopedic provider.) Carmine Patel MD [Primary Care Provider] - Interventions: ED Discharge Assessment Last Done: 03/28/24 13:23 Discharge Date/Time: 03/28/24 13:23 Print Language: [place]
--- NOTE | 2024-03-28 11:28 | PC.NURSE ---
pt to xray at this time.
[2024-03-28] MEDS: methylPREDNISolone Sod Succ 125 MG/2 ML VIAL 60 MG IM (12:44)
--- NOTE | 2024-03-28 12:45 | PC.NURSE ---
medication administered per provider order. delay d/t being in room w/ another pt. pt continues to rest comfortably in no apparent distress. no sob/wob noted. respirations even/unlabored. pt waiting for xray results at this time.
[2024-03-28 13:23] VITALS: BP 162/90; PULSE 77; RESP 20; TEMP 36.5; O2SAT 95
== END 2024-03-28 13:23 | disposition home or self-care (01) ==
PROVIDERS: Emergency Provider Emergency Medicine; PCP Internal Medicine
DX: M25.561 Pain in right knee (principal)
CPT/HCPCS: 73564; 96372; 99283; 99284; J2919

== ENCOUNTER 2024-04-06 21:59 | Outpatient (REF) | payer OTHER, SELFPAY | END 2024-04-06 22:00 | disposition home or self-care (01) | LOC: HO.HOSX 21:59 | PROVIDERS: Visit Provider Physician Assistant | DX: Z13.89 Encounter for screening for other disorder (principal) ==

== ENCOUNTER 2024-04-07 08:31 | Outpatient (AMB) | payer OTHER, SELFPAY ==
--- NOTE | 2024-04-07 09:10 | A.OFFVIS_ITS ---
Vital Signs 04/07/24 09:15 Height 5 ft 3 in Weight 240 lb BMI 42.5 Intake Visit Reasons: New prob- Right knee pain Intake Note: Magalie a 78 year old Frisian speaking female who presents today for an evaluation of right knee pain. Patient reports pain to her right knee a couple of weeks after her fall on 11/13/23 when she sustained an ankle fracture. Her pain is constant and located at the anterior and posterior aspect of knee. No previous tx. Finds very little to no relief with Tylenol or Motrin. [employer] Required: Yes [employer] Name: Bárbara Arteaga [id number] Allergies No Known Allergies [No Known Allergies*] Allergy (Verified 04/07/24 09:22) Medication List - Last Reconciled 04/07/24 by Saleem Young PA-C acetaminophen 650 mg OK Q4H PRN acetaminophen (Tylenol) 650 mg PO Q4H PRN albuterol sulfate 90 mcg/actuation 2 puffs inhalation Q6H PRN bisacodyl 10 mg OK DAILY PRN carvedilol 12.5 mg See Protocol PO BID ergocalciferol (vitamin D2) 1,250 mcg PO MO famotidine 20 mg PO BID furosemide 40 mg PO QAM insulin glargine (Lantus U-100 Insulin) 20 units (0.2 mL) subcut BEDTIME insulin lispro (Admelog U-100 Insulin lispro) See Protocol units subcut QIDACHS insulin lispro (Admelog U-100 Insulin lispro) 5 units (0.05 mL) subcut QIDACHS lancets (TRUEplus Lancets) As directed losartan 50 mg PO DAILY magnesium hydroxide (Milk Of Magnesia Concentrated) 30 mL PO DAILY PRN oxycodone 5 mg PO Q4H PRN pantoprazole 40 mg PO QAM pravastatin 40 mg PO QPM prednisone See Taper mg PO DAILY sitagliptin phos-metformin 50-1,000 mg ER (Janumet XR) 1 tab PO DAILY sodium phosphates 19-7 gram/118 mL (Fleet Enema) 118 mL OK DAILY PRN HPI HPI New prob- Right knee pain: Details: 78-year-old female presents to the office today for pain in the right knee. She states the pain started about 5 months ago when she fell which resulted in an ankle fracture on the right. She c/o pain throughout the entire knee. She does use tylenol and motrin with minimal relief. She is currently in a wheelchair due to her right ankle and has not been walking for the past 5 months. I was able to speak with her son on the phone while in the office today his name is Andres. He states the patient did not have any recent falls. But he does mentioned that she has been up and ambulating without the boot from her wheelchair to the bathroom for instance. This may have led to displacement of the ankle fracture. [facility] Medical History NICO (obstructive sleep apnea) CHF (congestive heart failure) 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 indication of end stage renal disease in patient 6 to 64 years of age Lymphadenopathy Abdominal pain Bursitis of right hip Osteoarthritis of right hip Restrictive ventilatory defect Dyspnea on exertion Varicose veins of right lower extremity with inflammation Pneumonitis Pulmonary hypertension Hypertensive cardiovascular disease Acute hypoxic on chronic hypercapnic respiratory failure Acute on chronic respiratory failure with hypoxemia Obesity hypoventilation syndrome GERD (gastroesophageal reflux disease) Hypertension Diabetes mellitus COPD (chronic obstructive pulmonary disease) Surgical History S/P laparoscopic cholecystectomy (07/14/21) Family History Mother Diabetes Social History Household Members: Family Housing: Assisted Living Facility Do you presently have visiting nurse or other home services: No Alcohol intake: never Patient Tobacco Use Status: Former Tobacco user Tobacco use type: Cigarette Years Smoked: 20 Advance Directives Date on File: 02/23/24 service: No Current occupational status: unemployed and disabled Review of Systems Const All systems reviewed & are unremarkable except as noted in HPI and below Physical Exam Vital Signs: BMI result Body Mass Index 42.5 Const General: cooperative and no acute distress Orientation/consciousness: patient oriented x3 Resp Effort & Inspection: normal respiratory effort and able to speak in complete sentences Cardio Peripheral pulses: Peripheral pulses 2+ throughout Neuro General: patient oriented x3 Extrem Other: Right knee skin intact, no erythema or joint effusion. Tenderness along the medial joint line. ROM full with crepitus. Negative steinmans. No ligamentous laxity. NVI. Right ankle skin is intact. She has diffuse swelling throughout the ankle with mild tenderness to palpation. No open areas along the medial or lateral malleolus. No significant bony prominences. Neurovascularly intact. Office Procedures Casting/Splints [id number] Leg Cast Application Procedure code (CPT) selection complete Results Reviewed Results Reviewed: X-rays of the right knee obtained in the office today show significant end-stage osteoarthritis. X-rays of the right ankle obtained in the office today show displaced distal fibular fracture with widening of the clear space Assessment & Plan Assessment & Plan (1) Closed right ankle fracture: Code(s): S82.891A - Other fracture of right lower leg, initial encounter for closed fracture Category: Medical Qualifiers: Encounter type: subsequent encounter (2) Arthritis of knee, right: Code(s): M17.11 - Unilateral primary osteoarthritis, right knee Category: Medical Plan I reviewed the images with Dr. Juarez and discussed the case at length with the patient and her son Andres. Given her multiple comorbidities it is recommended we avoid surgical intervention as previously discussed with her initial right ankle fracture. We did attempt to treat this without surgery initially with nonweightbearing and then progressed to weight-bearing with a boot. However this has caused further disruption and collapse of the joint. I again explained the extent of the injury and options with nonsurgical intervention which would be casting and nonweightbearing. The hopes would be for the ankle and joint to fuse and and eventually ambulation with assistive d evices. She will require routine follow-ups for skin checks. Also routine xrays. We discussed options today, which include steroid injection. The patient did consent to move forward with the injection, which was tolerated well.? I recommended rest, ice and elevation and OTC antiinflammatories prn for discomfort. If symptoms persist over the next 6-8 weeks, they will contact our office, otherwise, prn We also discussed their diabetes and the effect the steroid can have on thier blood glucose levels; therefore, they will continue to monitor these very closely over the next 72 hours Patient will see me back in 2 weeks with cast off and x-rays sooner if needed. Orders: Orders XR knee RT 1V Today M25.561 - Pain in right knee XR knee LT 2V Today M25.562 - Pain in left knee XR ankle RT min 3V Today M25.571 - Pain in right ankle and joints of right foot Coding Level of Care Code Est Pt Level 4 (58916) Diagnoses Closed right ankle fracture S82.891A Encounter type: subsequent encounter Arthritis of knee, right M17.11 CPT Codes Casting - CPT: 42729-Hbecj Leg Cast Application ([id number])
[2024-04-07 09:15] VITALS: BMI 42.5
== END 2024-04-07 10:57 | disposition home or self-care (01) ==
PROVIDERS: PCP Internal Medicine; Visit Provider Physician Assistant
DX: S82.891A Other fracture of right lower leg, initial encounter for closed fracture (principal); M17.11 Unilateral primary osteoarthritis, right knee
CPT/HCPCS: 20610; 29405; 99214

== ENCOUNTER 2024-04-07 09:40 | Outpatient (REF) | payer OTHER, SELFPAY ==
--- NOTE | ~2024-04-07 | XR_ITS ---
EXAMINATION: XR ANKLE, RIGHT CLINICAL INFORMATION: Pain in right ankle and joints of right foot COMPARISON: 03/13/2024 TECHNIQUE: AP, lateral, and mortise views of the right ankle. FINDINGS: There is overall similar appearance to the ankle with displaced oblique fracture in the distal fibula with disruption of the syndesmosis and the ankle mortise. There is some callus formation again noted in the distal fibular fracture.. The degree of lateral subluxation of the talus relative to the tibial plafond is similar. Pes planus. Plantar calcaneal spur. Multiple phleboliths. Soft tissue swelling. Ankle joint effusion. XR/XR ankle RT min 3V IMPRESSION: Similar appearance of the displaced oblique fracture in the distal fibula with disruption of the syndesmosis and ankle mortise. There is some callus formation in the distal fibular fracture.
--- NOTE | ~2024-04-07 | XR_ITS ---
Examination: X-ray knee INDICATION: Pain in right knee COMPARISON: 03/28/2024 TECHNIQUE: Blades view of the right knee FINDINGS: Limited sunrise view of the right knee shows advanced degenerative change in the patellofemoral compartment. There is bony spurring. No foreign body. Soft tissue thickening. XR/XR knee RT 1V IMPRESSION: Limited sunrise view of the right knee shows advanced degenerative change in the patellofemoral compartment. Soft tissue swelling
== END 2024-04-07 09:41 | disposition home or self-care (01) ==
LOC: HO.HOSX 09:40
PROVIDERS: Visit Provider Physician Assistant
DX: M17.11 Unilateral primary osteoarthritis, right knee (principal); S82.891A Other fracture of right lower leg, initial encounter for closed fracture
CPT/HCPCS: 20610; 29405; 73560; 73610; 99212; J1010

== ENCOUNTER 2024-04-21 08:24 | Outpatient (REF) | payer OTHER, SELFPAY ==
--- NOTE | ~2024-04-21 | XR_ITS ---
EXAMINATION: XR ANKLE, RIGHT CLINICAL INFORMATION: Pain in right ankle and joints of right foot COMPARISON: 04/07/2024 TECHNIQUE: AP, lateral, and mortise views of the right ankle. FINDINGS: Stable appearance to the ankle with displaced oblique fracture in the distal fibula with disruption of the syndesmosis and the ankle mortise. There is some callus formation again noted in the distal fibular fracture.. The degree of lateral subluxation of the talus relative to the tibial plafond is similar. Pes planus. Plantar calcaneal spur. Multiple phleboliths. Soft tissue swelling. Ankle joint effusion. XR/XR ankle RT min 3V IMPRESSION: Stable appearance to the displaced oblique fracture in the distal fibula with disruption of the syndesmosis and ankle mortise. There is some callus formation in the distal fibular fracture.
== END 2024-04-21 08:25 | disposition home or self-care (01) ==
LOC: HO.HOSX 08:24
PROVIDERS: Visit Provider Physician Assistant
DX: M25.571 Pain in right ankle and joints of right foot (principal); S82.891D Other fracture of right lower leg, subsequent encounter for closed fracture with routine healing; M17.11 Unilateral primary osteoarthritis, right knee
CPT/HCPCS: 29405; 73610; 99212

== ENCOUNTER 2024-04-21 08:50 | Outpatient (AMB) | payer OTHER, SELFPAY ==
--- NOTE | 2024-04-21 09:32 | MHC.OFFVIS ---
Vital Signs 04/21/24 09:35 Height 5 ft 3 in Weight 240 lb BMI 42.5 Intake Visit Reasons: OV- Closed right ankle fx cast removal w/ xrays Intake Note: Magalie a 79 year old female who presents today for a follow up of right ankle fracture. Cast off and xrays updated. Patient reports she is doing well, states having some discomfort in her ankle. Data Input Clerk Required: Yes Data Input Clerk Services: Data Input Clerk Present Data Input Clerk Name: Kait [id number] & JOHNNY Flores/MINDA Information Interpreted: clinical only Allergies No Known Allergies [No Known Allergies*] Allergy (Verified 04/21/24 09:35) Medication List - Last Reconciled 04/21/24 by Saleem Young PA-C acetaminophen 650 mg OK Q4H PRN acetaminophen (Tylenol) 650 mg PO Q4H PRN albuterol sulfate 90 mcg/actuation 2 puffs inhalation Q6H PRN bisacodyl 10 mg OK DAILY PRN carvedilol 12.5 mg See Protocol PO BID ergocalciferol (vitamin D2) 1,250 mcg PO MO famotidine 20 mg PO BID furosemide 40 mg PO QAM insulin glargine (Lantus U-100 Insulin) 20 units (0.2 mL) subcut BEDTIME insulin lispro (Admelog U-100 Insulin lispro) See Protocol units subcut QIDACHS insulin lispro (Admelog U-100 Insulin lispro) 5 units (0.05 mL) subcut QIDACHS lancets (TRUEplus Lancets) As directed losartan 50 mg PO DAILY magnesium hydroxide (Milk Of Magnesia Concentrated) 30 mL PO DAILY PRN oxycodone 5 mg PO Q4H PRN pantoprazole 40 mg PO QAM pravastatin 40 mg PO QPM prednisone See Taper mg PO DAILY sitagliptin phos-metformin 50-1,000 mg ER (Janumet XR) 1 tab PO DAILY sodium phosphates 19-7 gram/118 mL (Fleet Enema) 118 mL OK DAILY PRN HPI HPI OV- Closed right ankle fx cast removal w/ xrays: Details: 79-year-old female who returns to the office today for a follow-up of right ankle fracture. She continues to remain non weight bearing on her legs and reports mild discomfort in her ankle. She is doing well overall and has no concerns today. [facility] Medical History NICO (obstructive sleep apnea) CHF (congestive heart failure) 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 indication of end stage renal disease in patient 6 to 64 years of age Lymphadenopathy Abdominal pain Bursitis of right hip Osteoarthritis of right hip Restrictive ventilatory defect Dyspnea on exertion Varicose veins of right lower extremity with inflammation Pneumonitis Pulmonary hypertension Hypertensive cardiovascular disease Acute hypoxic on chronic hypercapnic respiratory failure Acute on chronic respiratory failure with hypoxemia Obesity hypoventilation syndrome GERD (gastroesophageal reflux disease) Hypertension Diabetes mellitus COPD (chronic obstructive pulmonary disease) Surgical History S/P laparoscopic cholecystectomy (07/14/21) Family History Mother Diabetes Social History Household Members: Family Housing: Assisted Living Facility Do you presently have visiting nurse or other home services: No Alcohol intake: never Patient Tobacco Use Status: Former Tobacco user Tobacco use type: Cigarette Years Smoked: 20 Advance Directives Date on File: 02/23/24 service: No Current occupational status: unemployed and disabled Review of Systems Const All systems reviewed & are unremarkable except as noted in HPI and below Physical Exam Vital Signs: BMI result Body Mass Index 42.5 Const General: cooperative and no acute distress Orientation/consciousness: patient oriented x3 Resp Effort & Inspection: normal respiratory effort and able to speak in complete sentences Cardio Peripheral pulses: Peripheral pulses 2+ throughout Neuro General: patient oriented x3 Extrem Other: Right ankle skin is intact. She has diffuse swelling throughout the ankle with mild tenderness to palpation. No open areas along the medial or lateral malleolus. No significant bony prominences. Neurovascularly intact. Office Procedures Casting/Splints [id number] Leg Cast Application Procedure code (CPT) selection complete Results Reviewed Results Reviewed: X-rays of the right ankle obtained in the office today show displaced distal fibular fracture with widening of the clear space Assessment & Plan Assessment & Plan (1) Arthritis of knee, right: Code(s): M17.11 - Unilateral primary osteoarthritis, right knee Category: Medical (2) Closed right ankle fracture: Code(s): S82.891A - Other fracture of right lower leg, initial encounter for closed fracture Category: Medical Qualifiers: Encounter type: subsequent encounter Plan Images were reviewed with the patient today. I explained the extent of her displacement and comorbidities we will continue with conservative treatment with a short leg cast, NWB. She was placed in a short leg cast today. I stressed the importance of being non weight bearing and she will see me back in 4 weeks with cast off and new x-rays however if she has increased pain or burning sensation she will contact the office for reevaluation. Orders: Orders XR ankle RT min 3V Today M25.571 - Pain in right ankle and joints of right foot Patient Instructions: Scribed for Saleem Young PA-C, by Dominic Hoff medical certification specialist, on 04/21/2024 at 9:30 AM EST.? I, Saleem Young PA-C, have personally reviewed and agree with the information entered by the scribe. Coding Level of Care Code Global (98558) Diagnoses Arthritis of knee, right M17.11 Closed right ankle fracture S82.891A Encounter type: subsequent encounter CPT Codes Casting - CPT: 95528-[id number] Leg Cast Application ([id number])
[2024-04-21 09:35] VITALS: BMI 42.5
== END 2024-04-21 10:21 | disposition home or self-care (01) ==
PROVIDERS: PCP Internal Medicine; Visit Provider Physician Assistant
DX: S82.891A Other fracture of right lower leg, initial encounter for closed fracture (principal); M17.11 Unilateral primary osteoarthritis, right knee
CPT/HCPCS: 29405; 99213

== ENCOUNTER 2024-05-03 02:23 | Emergency (ER) | payer OTHER, SELFPAY ==
--- NOTE | ~2024-05-03 | XR_ITS ---
EXAMINATION: XR CHEST CLINICAL INFORMATION: Shortness of breath. COMPARISON: 01/08/2024. TECHNIQUE: Frontal view of the chest was obtained. FINDINGS: The lung volumes are low. The cardiomediastinal silhouette is stable. There is no focal lung consolidation or pleural effusion. The bony structures and soft tissues are unremarkable. XR/XR chest 1V IMPRESSION: Low lung volumes. No acute cardiopulmonary process.
[2024-05-03 02:32] VITALS: BP 101/63; PULSE 80; O2SAT 99
[2024-05-03 02:33] VITALS: BP 152/61; PULSE 73; RESP 15; TEMP 37.1; O2SAT 100; BMI 45.6
[2024-05-03 02:38] VITALS: BP 152/61; PULSE 73; RESP 15; TEMP 37.1; O2SAT 100
--- NOTE | 2024-05-03 02:43 | PC.NURSE ---
Pt ca&ox4, no signs of distress. Pt reporting headache 7/10 right leg itchiness, redness and swelling Previous fx of right leg in cast. Plan of care ongoing.
--- NOTE | 2024-05-03 03:51 | ECG_ITS ---
Test Reason : HEADACHE Blood Pressure : / mmHG Vent. Rate : 071 BPM Atrial Rate : 071 BPM P-R Int : 180 ms QRS Dur : 090 ms QT Int : 386 ms P-R-T Axes : 041 045 055 degrees QTc Int : 419 ms Normal sinus rhythm Normal ECG When compared with ECG of 15-JAN-2024 19:21, No significant change was found Referred By: Generic ED Physician Electronically Signed By:NEHA PONCE
[2024-05-03 04:33] LABS: COVID-19 Test Negative (Negative); IDNOW Serial# 08D9AD1C; IDNOW Serial# 152EDE1D; Influenza A Negative (Negative); Influenza B2 Negative (Negative)
[2024-05-03 04:42] LABS: MANUAL DIFF FLAG NO
[2024-05-03 04:43] LABS: Basophils Percent Auto 0.2 % (0-2); Eosinophils Absolute Auto 0.1 X10*3/uL (0.0-0.4); Eosinophils Percent Auto 1.7 % (0-4); Imm Gran Abs Auto 0.01 X10*3/uL (0.00-0.03); Imm Gran Pct Auto 0.2 % (0.0-0.4); Lymphocytes Absolute Auto 1.6 X10*3/uL (1.2-4.9); Mean Corpuscular HGB Conc 29.4 g/dl (31.0-35.0); Mean Corpuscular Hemoglobin 29.9 pg (27.0-33.0); Mean Corpuscular Volume 101.5 fL (80.0-98.0); Mean Platelet Volume 9.9 fL (9.4-12.3); Monocytes Absolute Auto 0.6 X10*3/uL (0.1-1.2); Monocytes Percent Auto 8.6 % (2-11); Neutrophils Absolute Auto 4.3 x10*3/uL (2.0-8.3); Neutrophils Percent Auto 65.3 % (45-73); Platelet Count 117 X10*3/uL (160-400); Red Blood Count 3.35 X10*6/uL (4.20-5.50); Red Cell Distribution Width 12.5 % (11.0-16.0); White Blood Count 6.5 X10*3/uL (4.8-10.8)
[2024-05-03 04:57] LABS: Anion Gap 11 (12-20); Blood Urea Nitrogen 15 mg/dL (9-16); Calcium 9.4 mg/dL (8.4-10.2); Carbon Dioxide 49 mmol/L (22-29); Chloride 89 mmol/L (96-108); Creatinine Clr Calc Pharmacy 92.3; Estimated Glomerular Filt Rate > 60; Glucose Random 115 mg/dL (60-115); Potassium 4.2 mmol/L (3.3-5.1); Sodium 145 mmol/L (135-145)
[2024-05-03 05:02] LABS: Troponin-I High Sensitivity 8.8 ng/L (<3.5-17.0)
--- NOTE | 2024-05-03 05:02 | ED.GENADULT ---
HPI - General Adult General Chief complaint: Headache Stated complaint: HEADACHE/FEVER Time Seen by Provider: 05/03/24 05:00 Source: patient Mode of arrival: EMS Limitations: no limitations History of Present Illness ED Provider: urmila CHAPIN narrative: Patient is 79 years old with history of pulmonary hypertension chronic hypercapnic respiratory failure/obesity hypoventilation syndrome on 2 L of oxygen heart failure with preserved ejection fraction, diabetes type 2, NICO using CPAP comes here for about 6 months of tingling sensation left lower extremity off and on getting worse also complaining of headache which is also chronic patient does have a ankle fracture of the right side patient is fairly compliant using oxygen CPAP no fever no chills no nausea no vomiting Related Data Home Medications ?Medication ?Instructions ?Recorded ?Confirmed lancets 33 gauge (TRUEplus Lancets) #100 ea 09/20/21 04/21/24 sitagliptin phos 50 mg-metformin 1 tab PO DAILY 02/20/22 05/04/24 ER 1,000 mg tablet,extend rel 24h mp (Janumet XR) furosemide 40 mg tablet 40 mg PO DAILY 05/11/23 05/04/24 albuterol sulfate 90 mcg/actuation 2 puff inhalation Q6H PRN Wheezing 11/02/23 05/04/24 aerosol inhaler ergocalciferol (vitamin D2) 1,250 1,250 mcg PO MO 11/02/23 05/04/24 mcg (50,000 unit) capsule famotidine 20 mg tablet 20 mg PO BID 11/02/23 05/04/24 pravastatin 40 mg tablet 40 mg PO BEDTIME 11/02/23 05/04/24 albuterol sulfate 2.5 mg/3 mL 2.5 mg inhalation Q6H PRN 05/04/24 05/04/24 (0.083 %) solution for nebulization Shortness Of Breath Or Wheezing insulin lispro 100 unit/mL 5 unit subcut BIDWM 05/04/24 05/04/24 subcutaneous solution (Admelog U-100 Insulin lispro) pantoprazole 20 mg tablet,delayed 20 mg PO DAILY@0630 05/04/24 05/04/24 release Previous Rx's ?Medication ?Instructions ?Recorded carvedilol 12.5 mg tablet 12.5 mg PO BID #60 tabs 11/07/23 insulin glargine 100 unit/mL 20 unit (0.2 mL) subcut BEDTIME 11/15/23 subcutaneous solution (Lantus #10 mL U-100 Insulin) losartan 50 mg tablet 50 mg PO DAILY #30 tabs 11/15/23 Allergies Allergy/AdvReac Type Severity Reaction Status Date / Time No Known Allergies Allergy Verified 05/04/24 10:15 [No Known Allergies*] Review of Systems Review of Systems: Yes all other systems are reviewed and are negative [facility] Past Medical History Medical History NICO (obstructive sleep apnea) CHF (congestive heart failure) 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 indication of end stage renal disease in patient 6 to 64 years of age Lymphadenopathy Abdominal pain Bursitis of right hip Osteoarthritis of right hip Restrictive ventilatory defect Dyspnea on exertion Varicose veins of right lower extremity with inflammation Pneumonitis Pulmonary hypertension Hypertensive cardiovascular disease Acute hypoxic on chronic hypercapnic respiratory failure Acute on chronic respiratory failure with hypoxemia Obesity hypoventilation syndrome GERD (gastroesophageal reflux disease) Hypertension Diabetes mellitus COPD (chronic obstructive pulmonary disease) Surgical History S/P laparoscopic cholecystectomy (07/14/21) Family History Family History Mother Diabetes Social History Social History Household Members: Family Household Members Other:: cousin Housing: Apartment Do you presently have visiting nurse or other home services: No (Son [employer] per patient) Alcohol intake: never Patient Tobacco Use Status: Former Tobacco user Tobacco use type: Cigarette Years Smoked: 20 Smoked in Last 30 Days: No Use of substances other than those prescribed or required for medical reasons: No Currently Displaying Signs/Symptoms of Drug Intoxication Withdrawal: No Advance Directives: Yes Advance Directives on File: Yes Advance Directives Date on File: 02/23/24 Recently lost weight without trying: Unsure Patient : No : No Poor oral hygiene: No service: No Current occupational status: unemployed and disabled Physical Exam ED Vital Signs: Vital Signs - 24 hr 05/03/24 02:33 05/03/24 02:38 05/03/24 06:06 Temperature 98.7 F 98.7 F Pulse Rate 73 73 69 Respiratory Rate 15 15 18 Blood Pressure 152/61 H 152/61 H 156/74 H Pulse Oximetry 100 100 98 Oxygen Delivery Method Nasal Cannula Room Air Nasal Cannula Oxygen Flow Rate 2 BMI result Body Mass Index 45.6 Appearance: Alert. Oriented X3. No acute distress. Obese patient Eyes: No pallor or icterus ENT: Pharynx normal. Oral Mucosa moist no temporal artery tenderness Neck: Normal inspection. Neck supple. CVS: Normal heart rate and rhythm. Pulses normal. Respiratory: No respiratory distress. Equal air entry bilateral, no wheezing/rales/rhonchi Abdomen: Soft and nontender. Bowel sounds are present, no mass palpable, no CVA tenderness Skin: Skin warm and dry. Normal skin color. Normal skin turgor. Extremities: No lower extremity edema. No calf tenderness Neuro: Oriented X 3. No motor deficit. No sensory deficit.No cerebellar signs , cranial nerves II-XII intact Medications Administered Discontinued Medications Generic Name Dose Route Start Last Admin Trade Name Freq PRN Reason Stop Dose Admin Acetaminophen 650 mg 05/03/24 07:42 05/03/24 08:44 Acetaminophen 325 Mg Tablet PO 05/03/24 07:43 650 mg ONCE ONE Administration Acetaminophen 975 mg 05/03/24 07:42 05/03/24 07:51 Acetaminophen 325 Mg Tablet PO 05/03/24 07:43 975 mg ONCE ONE Administration Gabapentin 300 mg 05/03/24 05:24 05/03/24 05:55 Gabapentin 300 Mg Capsule PO 05/03/24 05:25 300 mg ONCE ONE Administration Sodium Chloride 1,000 mls @ 999 mls/hr 05/03/24 05:24 05/03/24 05:51 Ns IV 05/03/24 06:24 999 mls/hr .Q1H1M ONE Administration Oxycodone HCl 5 mg 05/03/24 05:53 05/03/24 05:58 Oxycodone Hcl Immed Release 5 Mg Tablet PO 05/03/24 05:54 5 mg ONCE ONE Administration Medical Decision Making Medical Decision Making MDM Narrative: Patient with peripheral neuropathy for several months comes here with similar complaints also has chronic headache labs were stable with chronic compensated metabolic alkalosis. Patient received IV fluids in the ER, Will prescribe patient gabapentin for neuropathy tramadol for pain Lab Data [facility] Lab Attestation statement: I reviewed the patient's lab results. 05/03/24 04:39 05/03/24 04:39 Labs: Lab Results 05/03/24 05/03/24 05/03/24 Range/Units 04:13 04:39 05:27 WBC 6.5 (4.8-10.8) X10*3/uL RBC 3.35 L (4.20-5.50) X10*6/uL Hgb 10.0 L (12.0-16.0) g/dl Hct 34.0 L (37.0-47.0) % MCV 101.5 H (80.0-98.0) fL MCH 29.9 (27.0-33.0) pg MCHC 29.4 L (31.0-35.0) g/dl RDW 12.5 (11.0-16.0) % Plt Count 117 L D (160-400) X10*3/uL MPV 9.9 (9.4-12.3) fL Immature Gran % (Auto) 0.2 (0.0-0.4) % Neut % (Auto) 65.3 (45-73) % Lymph % (Auto) 24.0 (20-40) % Long % (Auto) 8.6 (2-11) % Eos % (Auto) 1.7 (0-4) % Baso % (Auto) 0.2 (0-2) % Lymph # (Auto) 1.6 (1.2-4.9) X10*3/uL Long # (Auto) 0.6 (0.1-1.2) X10*3/uL Eos # (Auto) 0.1 (0.0-0.4) X10*3/uL Baso # (Auto) 0.0 (0.0-0.2) X10*3/uL Abs Immat Gran (auto) 0.01 (0.00-0.03) X10*3/uL Absolute Neuts (auto) 4.3 (2.0-8.3) x10*3/uL Absolute Nucleated RBC 0.000 (0.0-0.012) X10*3/uL Nucleated RBC % (auto) 0.0 (0.0-0.2) /100WBC VBG pH 7.43 (7.32-7.43) VBG pCO2 84 mmHg VBG pO2 50 mmHg VBG HCO3 57 H (22-26) mmol/L VBG O2 Saturation 83.0 % VBG Base Excess 27.5 mmol/L Sodium 145 (135-145) mmol/L Potassium 4.2 (3.3-5.1) mmol/L Chloride 89 L (96-108) mmol/L Carbon Dioxide 49 H* (22-29) mmol/L Anion Gap 11 L (12-20) BUN 15 (9-16) mg/dL Creatinine 0.62 (0.5-1.4) mg/dL Estim Creat Clear Calc 92.3 Estimated GFR > 60 Random Glucose 115 (60-115) mg/dL Calcium 9.4 (8.4-10.2) mg/dL Magnesium 1.7 (1.6-2.6) mg/dL Total Bilirubin 0.3 (0.0-1.0) mg/dL Direct Bilirubin 0.1 (0.0-0.5) mg/dL AST 16 (5-31) U/L ALT 13 (0-31) U/L Alkaline Phosphatase 47 (39-117) U/L Troponin I High Sens 8.8 (<3.5-17.0) ng/L Total Protein 6.8 (6.5-8.0) g/dL Albumin 3.6 (3.5-5.0) g/dL COVID-19 ([place]) Negative (Negative) COVID-19 Clin Com See Note Influenza Type A (MEG) Negative (Negative) Influenza Type B (MEG) Negative (Negative) Influenza A & B Note See Note Discharge Plan Discharge Clinical Impression: Peripheral neuropathy, Chronic headache Patient Disposition: Home, Self-Care Instructions: Diabetic Peripheral Neuropathy (ED), General Headache (ED) Additional Instructions: Take medication as prescribed Follow up with your PCP Prescriptions: No Action Janumet XR 50-1,000 mg tablet, ER multiphase 24 hr 1 tab PO DAILY pravastatin 40 mg tablet 40 mg PO BEDTIME ergocalciferol (vitamin D2) 1,250 mcg (50,000 unit) capsule 1,250 mcg PO MO albuterol sulfate 90 mcg/actuation HFA aerosol inhaler 2 puff inhalation Q6H PRN (Reason: Wheezing) famotidine 20 mg tablet 20 mg PO BID carvedilol 12.5 mg Tablet 12.5 mg PO BID Qty: 60 0RF Protocol: Hold for SBP/HR < HOLD for SBP < : 90 HOLD for HR < : 60 insulin glargine [Lantus U-100 Insulin] 100 unit/mL Solution 20 unit subcut BEDTIME Qty: 10 0RF losartan 50 mg tablet 50 mg PO DAILY Qty: 30 0RF insulin lispro [Admelog U-100 Insulin lispro] 100 unit/mL solution 5 unit subcut BIDWM pantoprazole 20 mg tablet,delayed release (DR/EC) 20 mg PO DAILY@0630 albuterol sulfate 2.5 mg /3 mL (0.083 %) solution for nebulization 2.5 mg inhalation Q6H PRN (Reason: Shortness Of Breath Or Wheezing) (DME) lancets [TRUEplus Lancets] 33 gauge misc See Rx Instructions topical .MEDSUPPLY Qty: 100 Rx Instructions: As directed furosemide 40 mg tablet 40 mg PO DAILY Interventions: ED Discharge Assessment Last Done: 05/03/24 08:42 Discharge Date/Time: 05/03/24 08:46 Print Language: Setswana
[2024-05-03 05:32] LABS: Venous Blood Gas Refer to POC result
[2024-05-03 05:37] LABS: VBG Base Excess 27.5 mmol/L; VBG HCO3 57 mmol/L (22-26); VBG pCO2 84 mmHg; VBG pH 7.43 (7.32-7.43); VBG pO2 50 mmHg
[2024-05-03 05:41] LABS: Alanine Aminotransferase 13 U/L (0-31); Albumin Level 3.6 g/dL (3.5-5.0); Alkaline Phosphatase 47 U/L (39-117); Aspartate Amino Transferase 16 U/L (5-31); Bilirubin Direct 0.1 mg/dL (0.0-0.5); Bilirubin Total 0.3 mg/dL (0.0-1.0); Magnesium 1.7 mg/dL (1.6-2.6); Total Protein 6.8 g/dL (6.5-8.0)
[2024-05-03] MEDS: 0.9 % Sodium Chloride 1,000 ML 999 ML IV (05:51)
[2024-05-03] MEDS: Gabapentin 300 MG CAPSULE PO (05:55)
[2024-05-03] MEDS: oxyCODONE HCl Immed Release 5 MG TABLET PO (05:58)
--- NOTE | 2024-05-03 05:58 | PC.NURSE ---
Pt medicated per nov. Pts family at bedside Plan of care ongoing.
[2024-05-03 06:06] VITALS: BP 156/74; PULSE 69; RESP 18; O2SAT 98
[2024-05-03] MEDS: Acetaminophen 325 MG TABLET 975 MG PO (07:51)
[2024-05-03 08:12] VITALS: BP 147/59; PULSE 67; RESP 19; TEMP 37; O2SAT 98
[2024-05-03 08:42] VITALS: BP 147/59; PULSE 67; RESP 14; TEMP 37; O2SAT 98
[2024-05-03] MEDS: Acetaminophen 325 MG TABLET 650 MG PO (08:44)
== END 2024-05-03 08:46 | disposition home or self-care (01) ==
PROVIDERS: Emergency Provider Internal Medicine
DX: G62.9 Polyneuropathy, unspecified (principal); R51.9 Headache, unspecified; E87.3 Alkalosis; Z03.818 Encounter for observation for suspected exposure to other biological agents ruled out; E11.9 Type 2 diabetes mellitus without complications; I11.0 Hypertensive heart disease with heart failure; I50.9 Heart failure, unspecified; E66.2 Morbid (severe) obesity with alveolar hypoventilation; Z68.42 Body mass index [BMI] 45.0-49.9, adult; G47.33 Obstructive sleep apnea (adult) (pediatric); J96.12 Chronic respiratory failure with hypercapnia; Z99.81 Dependence on supplemental oxygen; Z99.89 Dependence on other enabling machines and devices; Z79.4 Long term (current) use of insulin; Z79.899 Other long term (current) drug therapy
CPT/HCPCS: 36415; 71045; 80048; 80076; 82803; 83735; 84484; 85025; 87502; 87635; 93005; 99285

== ENCOUNTER 2024-05-04 09:58 | Inpatient (IN) | payer OTHER, SELFPAY ==
--- NOTE | ~2024-05-04 | CT_ITS ---
CT head/brain wo IV con CLINICAL INFORMATION: Headache COMPARISON: Prior CT 01/09/2024 TECHNIQUE: Department standard protocol. This CT examination was performed using dose optimization techniques as appropriate, variously including the following: *Automated exposure control *Adjustment of mA and/or kV according to patient size (this includes techniques or standardized protocols for targeted exams where dose is matched to indication/reason for exam; i.e. extremities or head) *Use of iterative reconstruction technique DLP: 767 mGy-cm FINDINGS: CEREBRAL HEMISPHERES: There is no evidence of intra-axial or extra-axial mass, hemorrhage or acute infarct. BRAIN PARENCHYMA: Normal steiner-white matter differentiation. SUBDURAL SPACE: No bleed. BASAL GANGLIA AND PINEAL GLAND: Unremarkable VENTRICLES: Symmetric and normal in size. CEREBELLUM AND BRAINSTEM: No space-occupying mass, hemorrhage or acute infarct. CEREBELLOPONTINE ANGLES: No lesion found. ORBITS: No intraorbital mass. VESSELS: Unremarkable SKULL BASE: Unremarkable INCLUDED SINUSES AT SKULL BASE: Clear SKULL AND SKIN: No fracture or bone lesion found. CT/CT head/brain wo IV con IMPRESSION: No CT evidence of intracranial space-occupying mass, bleed or infarct. Normal CT scan does not rule out the possibility of hyperacute infarct in the first 12 hours. If patient symptoms persist may consider correlation with MRI, which is more sensitive for early acute infarct.
--- NOTE | ~2024-05-04 | US_ITS ---
EXAMINATION: US EXTRACRANIAL CAROTID DUPLEX, BILATERAL CLINICAL INFORMATION: Left-sided weakness. CVA? Evaluate for stenosis, occlusion. COMPARISON: None available. TECHNIQUE: Real-time ultrasound and Doppler techniques (integrating B-mode 2-D vascular images, Doppler spectral analysis and color-flow Doppler imaging) were utilized to interrogate the extracranial carotid arteries, the vertebral arteries and proximal subclavian arteries bilaterally. The degree of stenosis is determined by criteria similar to NASCET. FINDINGS: Right Side: There is minimal atherosclerotic plaque of the carotid bulb. The common carotid artery peak systolic velocity (PSV) proximally is 95 cm/s and distally is 94 cm/s. The proximal internal carotid artery velocities are 73 cm/s systolic and 16 cm/s diastolic. The proximal external carotid artery PSV is 81 cm/s. The vertebral artery shows normal antegrade flow, peak velocity of 76 cm/s. The subclavian artery waveforms are normal. Left Side: There is minimal atherosclerotic plaque of the carotid bulb. The common carotid artery peak systolic velocity (PSV) proximally is 83 cm/s and distally is 69 cm/s. The proximal internal carotid artery velocities are 87 cm/s systolic and 23 cm/s diastolic. The proximal external carotid artery PSV is 71 cm/s. The vertebral artery shows normal antegrade flow, peak velocity of 104 cm/s. The subclavian artery waveforms are normal. US/US carotid duplex BI IMPRESSION: There is normal antegrade flow within the examined carotid and vertebral arteries. No evidence of hemodynamically significant stenosis or vessel occlusion.
--- NOTE | 2024-05-04 10:01 | ED_ITS ---
HPI - General Adult General Chief complaint: Headache Stated complaint: HEADACHE Time Seen by Provider: 05/04/24 10:08 Source: EMS Mode of arrival: EMS Limitations: other (Poor historian) History of Present Illness ED Provider: Dee RODRIGUEZ HPI narrative: 79 year female hx of chf, pulmonary hypertension, obesity hypoventilation syndrome on 2L, NICO presenting to the ED with headache ( diffuse in nature, no visual changes, dizziness, weakness), and intermittent tingling to left lower extremity, weakness b/l to UE and LE X 3 days, weakness, ams. Patient denies trauma to head, fevers, chills, neck pain, cp, sob, nausea, vomiting, abdominal pain. Related Data Home Medications ?Medication ?Instructions ?Recorded ?Confirmed lancets 33 gauge (TRUEplus Lancets) #100 ea 09/20/21 04/21/24 sitagliptin phos 50 mg-metformin 1 tab PO DAILY 02/20/22 04/21/24 ER 1,000 mg tablet,extend rel 24h mp (Janumet XR) furosemide 40 mg tablet 40 mg PO QAM 05/11/23 04/21/24 albuterol sulfate 90 mcg/actuation 2 puff inhalation Q6H PRN Wheezing 11/02/23 04/21/24 aerosol inhaler ergocalciferol (vitamin D2) 1,250 1,250 mcg PO MO 11/02/23 04/21/24 mcg (50,000 unit) capsule famotidine 20 mg tablet 20 mg PO BID 11/02/23 04/21/24 pantoprazole 40 mg tablet,delayed 40 mg PO QAM 11/02/23 04/21/24 release pravastatin 40 mg tablet 40 mg PO QPM 11/02/23 04/21/24 acetaminophen 325 mg capsule 650 mg PO Q4H PRN pain or fever 11/13/23 04/21/24 (Tylenol) acetaminophen 650 mg rectal 650 mg [place] Q4H PRN Pain or fever 11/13/23 04/21/24 suppository bisacodyl 10 mg rectal suppository 10 mg [place] DAILY PRN Constipation 11/13/23 04/21/24 magnesium hydroxide 2,400 mg/10 mL 30 ml PO DAILY PRN Constipation 11/13/23 04/21/24 oral suspension (Milk Of Magnesia Concentrated) prednisone 20 mg tablet See Taper PO DAILY 11/13/23 04/21/24 sodium phosphates 19 gram-7 118 ml [place] DAILY PRN Constipation 11/13/23 04/21/24 gram/118 mL enema (Fleet Enema) Previous Rx's ?Medication ?Instructions ?Recorded carvedilol 12.5 mg tablet 12.5 mg PO BID #60 tabs 11/07/23 insulin glargine 100 unit/mL 20 unit (0.2 mL) subcut BEDTIME 11/15/23 subcutaneous solution (Lantus #10 mL U-100 Insulin) insulin lispro 100 unit/mL 5 unit (0.05 mL) subcut QIDACHS 11/15/23 subcutaneous solution (Admelog #10 mL U-100 Insulin lispro) insulin lispro 100 unit/mL See Protocol subcut QIDACHS #10 mL 11/15/23 subcutaneous solution (Admelog U-100 Insulin lispro) losartan 50 mg tablet 50 mg PO DAILY #30 tabs 11/15/23 oxycodone 5 mg tablet 5 mg PO Q4H PRN Pain, Severe (Pain 11/15/23 Scale 7-10) #10 tabs gabapentin 300 mg capsule 300 mg PO BEDTIME #30 caps 05/03/24 Allergies Allergy/AdvReac Type Severity Reaction Status Date / Time No Known Allergies Allergy Verified 05/04/24 10:15 [No Known Allergies*] Review of Systems 2 Review of Systems: Yes all other systems are reviewed and are negative PMFSH Past Medical History Attestation statement: The following information was validated with the patient. Source: old records reviewed and nursing notes reviewed Medical History NICO (obstructive sleep apnea) CHF (congestive heart failure) 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 indication of end stage renal disease in patient 6 to 64 years of age Lymphadenopathy Abdominal pain Bursitis of right hip Osteoarthritis of right hip Restrictive ventilatory defect Dyspnea on exertion Varicose veins of right lower extremity with inflammation Pneumonitis Pulmonary hypertension Hypertensive cardiovascular disease Acute hypoxic on chronic hypercapnic respiratory failure Acute on chronic respiratory failure with hypoxemia Obesity hypoventilation syndrome GERD (gastroesophageal reflux disease) Hypertension Diabetes mellitus COPD (chronic obstructive pulmonary disease) Surgical History S/P laparoscopic cholecystectomy (07/14/21) Family History Family History Mother Diabetes Social History Social History Household Members: Family Housing: Assisted Living Facility Do you presently have visiting nurse or other home services: No Alcohol intake: never Patient Tobacco Use Status: Former Tobacco user Tobacco use type: Cigarette Years Smoked: 20 Advance Directives: Yes Advance Directives on File: Yes Advance Directives Date on File: 02/23/24 service: No Current occupational status: unemployed and disabled Physical Exam ED Vital Signs: Vital Signs - 24 hr 05/04/24 10:14 05/04/24 14:40 Temperature 98.2 F 98.0 F Pulse Rate 75 73 Respiratory Rate 16 14 Blood Pressure 141/57 H 164/73 H Pulse Oximetry 99 100 Oxygen Delivery Method Room Air Nasal Cannula Oxygen Flow Rate 3 BMI result Body Mass Index 46.6 vss Appearance: Difficult to arouse, obtunded Head: Normocephalic, atraumatic, no step-offs or deformities Eyes: Pupils equal, round and reactive to light.? Neck: Normal inspection.? Neck supple.? CVS: Normal heart rate and rhythm.? Pulses normal.? Respiratory: No respiratory distress.? Breath sounds normal.? Abdomen: Soft and nontender.? Skin: Skin warm and dry.? Normal skin color.? Normal skin turgor.? Extremities: No lower extremity edema.? No calf ttp. global weakness Back: No midline tenderness, no C-spine tenderness, full range of motion, no CVA tenderness bilaterally Neuro: Difficult to arouse, oriented to person, not time or situation. Course Reevaluation(s) Reevaluation #1: Normal head ct. CBC and chemistry at patient baseline. UA grossly infected. --> ceftriaxone ordered Plan-- > admisison Time: 14:59 Medical Decision Making Medical Decision Making MDM Narrative: 80 year old female presents w/ headache, intermittent tingling to LLE, UE and LE weakness X 3 days also ams, weakness PE global weakness drift b/l. obtunded . Only oriented to person Hx and pe concerning for typical/chornic migraine vs viral illness vs UTI vs complex migrane vs stroke. Unlikley meningitis, encephalitis, ich, stroke, posterior stroke. Tingling likley neuropathy. No signs of NV compromise, threat to limb. Plan- labs, imaging. Differential Diagnosis Differential Diagnoses: The differential diagnosis associated with the presentation includes Hx and pe concerning for typical/chornic migraine vs viral illness. Unlikley meningitis, encephalitis, ich, stroke, posterior stroke. Tingling likley neuropathy. No signs of NV compromise, threat to limb. Admission/Observation Consideration of admission/observation: Escalation of care including admission/observation considered Consult Healthcare Provider Management of the patient was discussed with: Hospitalist Lab Data [facility] Lab Attestation statement: I reviewed the patient's lab results. 05/04/24 10:27 05/04/24 10:27 Labs: Lab Results 05/04/24 05/04/24 Range/Units 10:27 14:45 WBC 6.5 (4.8-10.8) X10*3/uL RBC 3.57 L (4.20-5.50) X10*6/uL Hgb 10.6 L (12.0-16.0) g/dl Hct 36.0 L (37.0-47.0) % MCV 100.8 H (80.0-98.0) fL MCH 29.7 (27.0-33.0) pg MCHC 29.4 L (31.0-35.0) g/dl RDW 12.8 (11.0-16.0) % Plt Count 129 L (160-400) X10*3/uL MPV 11.3 (9.4-12.3) fL Immature Gran % (Auto) 0.5 H (0.0-0.4) % Neut % (Auto) 65.6 (45-73) % Lymph % (Auto) 24.3 (20-40) % [place] % (Auto) 8.0 (2-11) % Eos % (Auto) 1.1 (0-4) % Baso % (Auto) 0.5 (0-2) % Lymph # (Auto) 1.6 (1.2-4.9) X10*3/uL [place] # (Auto) 0.5 (0.1-1.2) X10*3/uL Eos # (Auto) 0.1 (0.0-0.4) X10*3/uL Baso # (Auto) 0.0 (0.0-0.2) X10*3/uL Abs Immat Gran (auto) 0.03 (0.00-0.03) X10*3/uL Absolute Neuts (auto) 4.2 (2.0-8.3) x10*3/uL Absolute Nucleated RBC 0.000 (0.0-0.012) X10*3/uL Nucleated RBC % (auto) 0.0 (0.0-0.2) /100WBC PT 11.7 (11.1-13.3) SEC INR 1.0 (0.9-1.1) Sodium 142 (135-145) mmol/L Potassium 4.8 (3.3-5.1) mmol/L Chloride 90 L (96-108) mmol/L Carbon Dioxide 43 H* (22-29) mmol/L Anion Gap 14 (12-20) BUN 19 H (9-16) mg/dL Creatinine 0.82 (0.5-1.4) mg/dL Estim Creat Clear Calc 70.6 Estimated GFR > 60 Random Glucose 120 H (60-115) mg/dL Calcium 9.3 (8.4-10.2) mg/dL Magnesium 1.7 (1.6-2.6) mg/dL Total Bilirubin 0.3 (0.0-1.0) mg/dL AST 14 (5-31) U/L ALT 11 (0-31) U/L Alkaline Phosphatase 45 (39-117) U/L Ammonia 52 (13-55) umol/L Total Protein 7.1 (6.5-8.0) g/dL Albumin 3.7 (3.5-5.0) g/dL Urine Color Yellow Urine Appearance Clear Urine pH 6.0 (5.0-9.0) Ur Specific [place] 1.010 (1.005-1.025) Urine Protein Negative (Neg-Trace) mg/dL Urine Glucose (UA) Negative (Negative) mg/dL Urine Ketones Negative (Negative) mg/dL Urine Blood Negative (Negative) Urine Nitrite Positive H (Negative) Ur Leukocyte Esterase Large (3+) H (Negative) Urine RBC 0-2 (0-2) /HPF Urine WBC >50 H (0-5) /HPF Ur Squamous Epith Cells 0-2 (0-2) /HPF Urine Bacteria 4+ (None Seen) Hyaline Casts 0-2 (0-2) /LPF Independent Interpretation I performed an independent interpretation of an: CT Scan (CT/CT head/brain wo IV con IMPRESSION: No CT evidence of intracranial space-occupying mass, bleed or infarct. Normal CT scan does not rule out the possibility of hyperacute infarct in the first 12 hours. If patient symptoms persist may consider correlation with MRI, which is more sensitive for ea) Radiology Impression Discussion of test interpretation with radiology: I have reviewed the radiologist's reading. External Record Review External record reviewed: Inpatient record, Office record, Outpatient record, Prior outpatient labs, Prior outpatient radiology, Primary care record and Outside ED record Prescription Management I considered prescription management with: Antibiotic Chronic Conditions Patient?s care impacted by: Other (CHF, NICO, obesity ) Critical Care Time Critical Care Time Critical Care Time: Yes Total Critical Care Time: 35 Attestation: I attest to this time spent taking care of the patient, obtaining history, physical, reviewing labs, imaging, speaking to my attending, speaking to specialist. Discharge Plan Discharge Clinical Impression: UTI (urinary tract infection) Patient Disposition: Admitted As Inpatient Print Language: [place]
[2024-05-04 10:14] VITALS: BP 141/57; PULSE 75; RESP 16; TEMP 36.8; O2SAT 99; BMI 46.6
[2024-05-04 10:31] LABS: MANUAL DIFF FLAG NO
[2024-05-04 10:42] LABS: Ammonia 52 umol/L (13-55)
[2024-05-04 10:54] LABS: Alanine Aminotransferase 11 U/L (0-31); Albumin Level 3.7 g/dL (3.5-5.0); Alkaline Phosphatase 45 U/L (39-117); Anion Gap 14 (12-20); Aspartate Amino Transferase 14 U/L (5-31); Bilirubin Total 0.3 mg/dL (0.0-1.0); Blood Urea Nitrogen 19 mg/dL (9-16); Calcium 9.3 mg/dL (8.4-10.2); Carbon Dioxide 43 mmol/L (22-29); Chloride 90 mmol/L (96-108); Creatinine Clr Calc Pharmacy 70.6; Estimated Glomerular Filt Rate > 60; Glucose Random 120 mg/dL (60-115); Magnesium 1.7 mg/dL (1.6-2.6); Potassium 4.8 mmol/L (3.3-5.1); Prothrombin Time 11.7 SEC (11.1-13.3); Sodium 142 mmol/L (135-145); Total Protein 7.1 g/dL (6.5-8.0)
[2024-05-04 10:59] LABS: Basophils Percent Auto 0.5 % (0-2); Eosinophils Absolute Auto 0.1 X10*3/uL (0.0-0.4); Eosinophils Percent Auto 1.1 % (0-4); Hemoglobin 10.6 g/dl (12.0-16.0); Imm Gran Abs Auto 0.03 X10*3/uL (0.00-0.03); Imm Gran Pct Auto 0.5 % (0.0-0.4); Lymphocytes Absolute Auto 1.6 X10*3/uL (1.2-4.9); Lymphocytes Percent Auto 24.3 % (20-40); Mean Corpuscular HGB Conc 29.4 g/dl (31.0-35.0); Mean Corpuscular Hemoglobin 29.7 pg (27.0-33.0); Mean Corpuscular Volume 100.8 fL (80.0-98.0); Mean Platelet Volume 11.3 fL (9.4-12.3); Monocytes Absolute Auto 0.5 X10*3/uL (0.1-1.2); Neutrophils Absolute Auto 4.2 x10*3/uL (2.0-8.3); Neutrophils Percent Auto 65.6 % (45-73); Platelet Count 129 X10*3/uL (160-400); Red Blood Count 3.57 X10*6/uL (4.20-5.50); Red Cell Distribution Width 12.8 % (11.0-16.0); White Blood Count 6.5 X10*3/uL (4.8-10.8)
[2024-05-04 14:40] VITALS: BP 164/73; PULSE 73; RESP 14; TEMP 36.7; O2SAT 100
[2024-05-04 14:50] LABS: Appearance Urine Clear; Color Urine Yellow; Glucose Urine UA Negative (Negative); Leukocyte Esterase Urine Large (3+) (Negative); Nitrite Urine Positive (Negative); UMIC TRIGGER UACC YES; Urine Blood Negative (Negative); Urine Ketones Negative (Negative); Urine Protein Negative (Neg-Trace)
[2024-05-04 14:54] LABS: Bacteria Urine 4+ (None Seen); Hyaline Casts Urine 0-2 /LPF (0-2); RBC Urine 0-2 /HPF (0-2); Squamous Epithelial Cell Urine 0-2 /HPF (0-2); UACC Culture Trigger YES; WBC Urine >50 /HPF (0-5)
--- NOTE | 2024-05-04 15:51 | PHA.MEDREC ---
Addendum entered by Jf Wade RPh 05/04/24 15:57: Reviewed by [facility] Original Note: Pharmacy Consult ? Medication Reconciliation Pharmacy has completed the medication reconciliation. Spoke with son over the phone. He did not know her PO medications but knew her insulin since he is the one that draws it up for her. She uses lispro 5 units BIDWM and Lantus 20 units at bedtime. 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 Used claims from [facility] to verify the rest of the medications.
[2024-05-04] MEDS: cefTRIAXone sodium 1 GM in 0.9 % Sodium Chloride 50 ML IV (16:01)
--- NOTE | 2024-05-04 16:26 | PM.IMHP ---
History of Present Illness Date of Service: 05/04/24 Attending physician on admission: [facility] Chief Complaint: paresthesias, confusion 79-year-old female with history of pulmonary hypertension, chronic hypercapnic respiratory failure/obesity hypoventilation syndrome on 2 L O2 at baseline, heart failure preserved ejection fraction, insulin-dependent type 2 diabetes, NICO compliant with CPAP, who is morbidly obese with BMI greater than 46 presented to the ED earlier today from home where she resides with her cousin due to paresthesias and headache. She is a limited historian oriented only to self, majority of history obtained from her son. She states for many months she has had paresthesias in the BUE but today was dropping things due to lack of sensation. States new paresthesias in the LLE. Did have a fall about 5 months ago and fractured her ankle and has been in a cast followed by ortho since then. Her son reports since yesterday has been confused from baseline. Was seen yesterday in ED for the headache and paresthesias and was discharged wtih gabapentin which was picked up but not yet started so unlikely to be contributing to ams. Since arrival, patient has been hypertensive to 179/77. Vital signs otherwise stable. She was placed on 3 L supplemental O2 and was maintaining oximetry 100%. Decreased O2 to 1 L now maintaining oximetry 90-92%. No leukocytosis. She has a macrocytic anemia with H/H 10.6/36.0%, MCV 100.8. Renal function baseline, electrolyte levels normal except for chloride 90, CO2 43 which is consistent with her baseline. VBG pending. Urinalysis with 3+ leukocytes, positive nitrites, significant urinary sediment and 4+ bacteria. CT of the head negative for acute intracranial abnormality. In the ED, has been given 1 g IV ceftriaxone. [facility] Medical History NICO (obstructive sleep apnea) CHF (congestive heart failure) 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 indication of end stage renal disease in patient 6 to 64 years of age Lymphadenopathy Abdominal pain Bursitis of right hip Osteoarthritis of right hip Restrictive ventilatory defect Dyspnea on exertion Varicose veins of right lower extremity with inflammation Pneumonitis Pulmonary hypertension Hypertensive cardiovascular disease Acute hypoxic on chronic hypercapnic respiratory failure Acute on chronic respiratory failure with hypoxemia Obesity hypoventilation syndrome GERD (gastroesophageal reflux disease) Hypertension Diabetes mellitus COPD (chronic obstructive pulmonary disease) Family History Mother Diabetes Surgical History S/P laparoscopic cholecystectomy (07/14/21) Social History Household Members: Family Housing: Assisted Living Facility Do you presently have visiting nurse or other home services: No Alcohol intake: never Patient Tobacco Use Status: Former Tobacco user Tobacco use type: Cigarette Years Smoked: 20 Smoked in Last 30 Days: No Use of substances other than those prescribed or required for medical reasons: No Advance Directives: Yes Advance Directives on File: Yes Advance Directives Date on File: 02/23/24 service: No Current occupational status: unemployed and disabled Meds Allergies Allergy/AdvReac Type Severity Reaction Status Date / Time No Known Allergies Allergy Verified 05/04/24 10:15 [No Known Allergies*] Active Medications: Current Medications Acetaminophen (Acetaminophen 325 Mg Tablet) 650 mg PO Q6H PRN PRN Reason: Pain, Mild (Pain Scale 1-3), fever or headache Albuterol Sulfate (Albuterol Sulfate (0.083%) 2.5 Mg/3 Ml Vial.Neb) 2.5 mg INHALE Q6H PRN PRN Reason: Shortness Of Breath Or Wheezing Albuterol Sulfate (Albuterol Sulfate 90 Mcg 8 Gm Inhaler) 2 puff INHALE Q6H PRN PRN Reason: Wheezing Aspirin (Aspirin Enteric Coated 81 Mg Tablet.Dr) 81 mg PO DAILY TIMOTHY Atorvastatin Calcium (Atorvastatin Calcium 80 Mg Tablet) 80 mg PO DAILY TIMOTHY Calcium Carbonate (Calcium Carbonate 750 Mg Tab.Chew) 750 mg PO Q4H PRN PRN Reason: Heartburn Enoxaparin Sodium (Enoxaparin Sodium 40 Mg/0.4 Ml Syringe) 40 mg SUBCUT Q24H TIMOTHY Ergocalciferol (Ergocalciferol (Vitamin D2) 1,250 Mcg Capsule) 1,250 mcg PO MO TIMOTHY Famotidine (Famotidine 20 Mg Tablet) 20 mg PO BID TIMOTHY Furosemide (Furosemide 40 Mg Tablet) 40 mg PO DAILY TIMOTHY; Protocol Ceftriaxone Sodium 1 gm/ (Sodium Chloride) 50 mls @ 100 mls/hr IV Q24H TIMOTHY Insulin Glargine (Insulin Glargine,Hum.Rec.Anlog 100 Unit/Ml 10 Ml Vial) 15 unit SUBCUT BEDTIME FOR[facility], [facility]1983 Magnesium Hydroxide (Milk Of Magnesia 30 Ml Oral.Susp) 30 ml PO DAILY PRN PRN Reason: Constipation Melatonin (Melatonin 3 Mg Tablet) 6 mg PO BEDTIME PRN PRN Reason: Insomnia Non-Formulary Medication (Pantoprazole) 20 mg PO DAILY@06 FOR[facility], [facility]1983 Sodium Chloride (0.9 % Sodium Chloride Flush 3 Ml Syringe) 3 ml IVFLUSH QSHIFT FOR[facility]LY [facility], [facility] Home Medications ?Medication ?Instructions ?Recorded ?Confirmed ?Last Taken ?Type lancets 33 gauge (TRUEplus Lancets) #100 ea 09/20/21 04/21/24 02/19/22 History sitagliptin phos 50 mg-metformin 1 tab PO DAILY 02/20/22 05/04/24 11/01/23 History ER 1,000 mg tablet,extend rel 24h mp (Janumet XR) furosemide 40 mg tablet 40 mg PO DAILY 05/11/23 05/04/24 11/01/23 History albuterol sulfate 90 mcg/actuation 2 puff inhalation Q6H PRN Wheezing 11/02/23 05/04/24 11/01/23 History aerosol inhaler ergocalciferol (vitamin D2) 1,250 1,250 mcg PO MO 11/02/23 05/04/24 11/01/23 History mcg (50,000 unit) capsule famotidine 20 mg tablet 20 mg PO BID 11/02/23 05/04/24 11/01/23 History pravastatin 40 mg tablet 40 mg PO BEDTIME 11/02/23 05/04/24 11/01/23 History albuterol sulfate 2.5 mg/3 mL 2.5 mg inhalation Q6H PRN 05/04/24 05/04/24 Unknown History (0.083 %) solution for nebulization Shortness Of Breath Or Wheezing insulin lispro 100 unit/mL 5 unit subcut BIDWM 05/04/24 05/04/24 Unknown History subcutaneous solution (Admelog U-100 Insulin lispro) pantoprazole 20 mg tablet,delayed 20 mg PO DAILY@0630 05/04/24 05/04/24 Unknown History release Physical Exam Vital Signs and Narrative: Vital Signs: Last Vital Signs Temp 98.0 F 05/04/24 14:40 Pulse 73 05/04/24 14:40 Resp 14 05/04/24 14:40 BP 164/73 H 05/04/24 14:40 Pulse Ox 100 05/04/24 14:40 O2 Del Method Nasal Cannula 05/04/24 14:40 O2 Flow Rate 3 05/04/24 14:40 BMI result Body Mass Index 46.6 Constitutional - Awake and Alert, No apparent distress Eyes - PERRLA, EOMI Cardiovascular - S1S2, RRR, No edema Respiratory - Normal lung expansion, Normal respiratory effort, No respiratory distress, CTA bilaterally Gastrointestinal - NT / ND; +BS; No rebound or guarding Extremities - no calf tenderness bilaterally, no swelling. RLE immobilized in plaster cast Skin - Warm/Dry Neurological - Alert & oriented x3, CN II-XII in tact, 5/5 strength RUE/RLE, 4/5 strengh LUE, 3/5 strength LLE, +left sided pronator drift, difficulty following commands, sensation in tact Psychological - Appropriate affect Results Labs 05/04/24 10:27 05/04/24 10:27 Labs: Laboratory Results - last 24 hr 05/04/24 05/04/24 10:27 14:45 MCV 100.8 H MCH 29.7 MCHC 29.4 L RDW 12.8 Plt Count 129 L MPV 11.3 Immature Gran % (Auto) 0.5 H Neut % (Auto) 65.6 Lymph % (Auto) 24.3 [place] % (Auto) 8.0 Eos % (Auto) 1.1 Baso % (Auto) 0.5 Lymph # (Auto) 1.6 [place] # (Auto) 0.5 Eos # (Auto) 0.1 Baso # (Auto) 0.0 Abs Immat Gran (auto) 0.03 Absolute Neuts (auto) 4.2 Absolute Nucleated RBC 0.000 Nucleated RBC % (auto) 0.0 PT 11.7 INR 1.0 Anion Gap 14 Estim Creat Clear Calc 70.6 Estimated GFR > 60 Random Glucose 120 H Calcium 9.3 Magnesium 1.7 Total Bilirubin 0.3 AST 14 ALT 11 Alkaline Phosphatase 45 Ammonia 52 Total Protein 7.1 Albumin 3.7 Urine Color Yellow Urine Appearance Clear Urine pH 6.0 Ur Specific [place] 1.010 Urine Protein Negative Urine Glucose (UA) Negative Urine Ketones Negative Urine Blood Negative Urine Nitrite Positive H Ur Leukocyte Esterase Large (3+) H Urine RBC 0-2 Urine WBC >50 H Ur Squamous Epith Cells 0-2 Urine Bacteria 4+ Hyaline Casts 0-2 Imaging Radiologist's Impressions: Impressions Head CT 05/04/24 11:05 IMPRESSION: No CT evidence of intracranial space-occupying mass, bleed or infarct. Normal CT scan does not rule out the possibility of hyperacute infarct in the first 12 hours. If patient symptoms persist may consider correlation with MRI, which is more sensitive for early acute infarct. Assessment and Plan (1) UTI (urinary tract infection): Status: Acute (2) Paresthesia of left leg: Status: Acute Plan 79-year-old female with history of pulmonary hypertension, chronic hypercapnic respiratory failure/obesity hypoventilation syndrome on 2 L O2 at baseline, heart failure preserved ejection fraction, insulin-dependent type 2 diabetes, NCIO compliant with CPAP, who is morbidly obese with BMI greater than 46 admitted or actue encepahalopthy and paresthesias #LLE paresthesias/weakness -new since yesterday notable weakness on the left side -CT negative for acute intracranial abn -LKWT sunday bedtime. Outside TNK window. NIHSS 2 -MRI brain ordered -carotid u/s -given 325mg asa, continue 81mg daily -check bedside swallow eval, stroke edu, neuro checks -neuro eval #Acute metabolic encephalopathy -?r/t hypertension, CVA, vs infection -plan as above, treat uti #Chronic BUE paresthesias -has chronic macrocytic anemia -check vitamin b12/folic acid #Acute UTI -no leukocytosis, no sepsis -iv ctx (initiated 05/04) -follow cultures #Chronic mixed respiratory acidosis and metabolic alkalosis -dc lasix, add acetazolamide 250 mg b.i.d. #HTN -Hold antihypertensives given possible cva to allow for permissive htn #NICO/obesity hyperventilation syndrome with chronic hypercapneic respiratory failure -co2 baseline, but given encephalopathy and pt has been on 3L satting 100%, check vbg -continue O2 to maintain oximetry 90-92%, reduce home dose (2L) if needed -CPAP bedtime #HFpEF -resume diuretics as appropriate, clinically euvolemic # insulin-dependent type 2 diabetes -dose adjusted basal insulin -POC glucose, diabetic diet -hold janumet # morbid obesity with BMI greater than 46 -weight loss efforts DVT prophylaxis-Lovenox Full code Patient requires inpatient stay at least 2 midnights for management of acute encephalopathy and new left lower extremity paresthesias concerning for CVA and will require further advanced imaging, expert consultation, neuro checks as well as IV antibiotics for probable UTI which may also be contributing to encephalopathy Quality Stroke Does the patient have a stroke diagnosis?: Yes Reason for No Anti-thrombotic by Day Two: Drug treatment not indicated VTE Prior VTE?: No VTE Risk Level:: Medical - moderate - high VTE Device Contraindication: Treatment Not Indicated VTE Drug Contraindication: N/A - Med Ordered
[2024-05-04 16:56] LABS: Cholesterol 133 mg/dL (<200); HDL Cholesterol 51 mg/dL (>40); LDL Cholesterol Calculated 69 mg/dL (<100); Triglycerides 67 mg/dL (<150)
[2024-05-04] MEDS: Enoxaparin Sodium 40 MG/0.4 ML SYRINGE SUBCUT (17:12)
[2024-05-04] MEDS: Aspirin 325 MG TABLET PO (17:13)
[2024-05-04 17:21] LABS: Venous Blood Gas Refer to POC result
[2024-05-04 17:22] LABS: VBG Base Excess 25.6 mmol/L; VBG HCO3 54 mmol/L (22-26); VBG pCO2 81 mmHg; VBG pH 7.43 (7.32-7.43); VBG pO2 52 mmHg
[2024-05-04 17:52] LABS: TSH reflex Free T4 0.53 uIU/mL (0.32-4.0)
[2024-05-04 18:06] LABS: Folate 9.2 ng/mL (> or = 4.0); Vitamin B12 336 pg/mL (200-900)
--- NOTE | 2024-05-04 18:41 | PC.NURSE ---
FORM FAXED TO MRI
[2024-05-04] MEDS: Acetaminophen 325 MG TABLET 650 MG PO (19:17)
--- NOTE | 2024-05-04 19:56 | PC.NURSE ---
this rn assumed care of pt, pt resting in stretcher, no acute distress noted. respirations even and unlabored.
--- NOTE | 2024-05-04 21:04 | PC.NURSE ---
pharmacy to bring pt medications at this time.
[2024-05-04] MEDS: Famotidine 20 MG TABLET PO (21:34)
[2024-05-04] MEDS: Insulin Glargine,Hum.rec.anlog 100 UNIT/ML 10 ML VIAL 15 UNIT SUBCUT (21:34)
[2024-05-04] MEDS: acetaZOLAMIDE 250 MG TABLET PO (21:34)
--- NOTE | 2024-05-04 21:36 | PC.NURSE ---
wind tunnel mechanic at bedside. pt a&ox3, pt medicated per mar, tolerated well with water.
[2024-05-04 22:23] VITALS: PULSE 76; RESP 18; O2SAT 92
[2024-05-04 22:48] VITALS: BP 186/82; PULSE 73; RESP 20; TEMP 36.7; O2SAT 96
--- NOTE | 2024-05-04 22:50 | PC.NURSE ---
pt placed on CPAP for night at this time, rt at bedside. pt also on 4L nasal cannula with cpap.
--- NOTE | 2024-05-04 22:52 | PC.NURSE ---
aware of pt bp at this time, no new orders.
[2024-05-05] MEDS: 0.9 % Sodium Chloride Flush 3 ML SYRINGE IVFLUSH ×4 (01:04→20:15)
[2024-05-05 02:19] VITALS: BMI 46.6
[2024-05-05 02:37] VITALS: BP 191/79; PULSE 74; RESP 20; TEMP 36.7; O2SAT 96
--- NOTE | 2024-05-05 03:08 | PC.NURSE ---
Bp 191/79 Dr. Black aware, no new orders.Notify if above 220/120 per MD.
[2024-05-05 04:00] VITALS: BP 152/88; PULSE 69; RESP 18; TEMP 36.2; O2SAT 94
[2024-05-05] MEDS: Omeprazole 20 MG CAPSULE.DR PO (06:20)
[2024-05-05 06:42] LABS: Basophils Percent Auto 0.3 % (0-2); Eosinophils Absolute Auto 0.1 X10*3/uL (0.0-0.4); Eosinophils Percent Auto 1.7 % (0-4); Hematocrit 39.5 % (37.0-47.0); Hemoglobin 12.1 g/dl (12.0-16.0); Imm Gran Abs Auto 0.05 X10*3/uL (0.00-0.03); Imm Gran Pct Auto 0.7 % (0.0-0.4); Lymphocytes Absolute Auto 1.6 X10*3/uL (1.2-4.9); Lymphocytes Percent Auto 22.2 % (20-40); MANUAL DIFF FLAG SCAN; Mean Corpuscular HGB Conc 30.6 g/dl (31.0-35.0); Mean Corpuscular Hemoglobin 29.9 pg (27.0-33.0); Mean Corpuscular Volume 97.5 fL (80.0-98.0); Monocytes Absolute Auto 0.6 X10*3/uL (0.1-1.2); Monocytes Percent Auto 8.5 % (2-11); Neutrophils Absolute Auto 4.7 x10*3/uL (2.0-8.3); Neutrophils Percent Auto 66.6 % (45-73); PLT CLUMP 1; Red Blood Count 4.05 X10*6/uL (4.20-5.50); Red Cell Distribution Width 12.4 % (11.0-16.0); SCAN SMEAR FLAG 1
[2024-05-05 07:11] LABS: Platelet Count 110 X10*3/uL (160-400)
[2024-05-05 07:12] LABS: SLIDE REVIEW VERIFIED
[2024-05-05 07:20] LABS: Anion Gap 15 (12-20); Blood Urea Nitrogen 14 mg/dL (9-16); Carbon Dioxide 35 mmol/L (22-29); Chloride 96 mmol/L (96-108); Creatinine Clr Calc Pharmacy 89.1; Estimated Glomerular Filt Rate > 60; Glucose Random 106 mg/dL (60-115); Potassium 4.8 mmol/L (3.3-5.1); Sodium 141 mmol/L (135-145)
[2024-05-05] MEDS: Famotidine 20 MG TABLET PO ×2 (07:51→20:14)
[2024-05-05] MEDS: acetaZOLAMIDE 250 MG TABLET PO ×2 (07:51→20:14)
[2024-05-05] MEDS: Aspirin Enteric Coated 81 MG TABLET.DR PO (07:51)
[2024-05-05] MEDS: Atorvastatin Calcium 80 MG TABLET PO (07:51)
[2024-05-05 08:00] VITALS: BP 195/88; PULSE 71; RESP 20; TEMP 36.6; O2SAT 95
--- NOTE | 2024-05-05 09:27 | MHC.CM.PN ---
IMM , EMR REVIEWED, PT ADMITTED W/LLE PARATHESIAS/?CVA, MRI AND NEURO PENDING, CM MET W/PT VIA INSURANCE ASSOCIATE, PT REPORTS SHE LIVES W/HER COUSIN, AT BASELINE PT IS PRIMARILY IN WC SINCE SHE FX'D HER ANKLE AND STANDS/PIVOTS TO BED/CHAIR/TOILET. PT DOES PREFER HOME W/SERVICES HOWEVER OT/PT MEETING WHEN CM LEFT. PT VERIFIED THROUGH [facility] DUSTIN MCCANN MD AND HCP ON FILE VERIFIED.
--- NOTE | 2024-05-05 10:27 | PM.DS ---
DS: Providers Provider Date of Service: 05/05/24 Date of admission: 05/04/24 16:14 Primary care physician: Unknown Physician Consults: 05/04/24 16:19 Consult to Neurology Routine Consulting Provider: [facility] Reason for consultation: left sided weakness, encephalopathy DS: Diagnosis Discharge Diagnosis (1) UTI (urinary tract infection): Status: Acute (2) Paresthesia of left leg: Status: Resolved DS: Summary Hospital Course Hospital Course: admission hpi Chief Complaint: paresthesias, confusion 79-year-old female with history of pulmonary hypertension, chronic hypercapnic respiratory failure/obesity hypoventilation syndrome on 2 L O2 at baseline, heart failure preserved ejection fraction, insulin-dependent type 2 diabetes, NICO compliant with CPAP, who is morbidly obese with BMI greater than 46 presented to the ED earlier today from home where she resides with her cousin due to paresthesias and headache. She is a limited historian oriented only to self, majority of history obtained from her son. She states for many months she has had paresthesias in the BUE but today was dropping things due to lack of sensation. States new paresthesias in the LLE. Did have a fall about 5 months ago and fractured her ankle and has been in a cast followed by ortho since then. Her son reports since yesterday has been confused from baseline. Was seen yesterday in ED for the headache and paresthesias and was discharged wtih gabapentin which was picked up but not yet started so unlikely to be contributing to ams. Since arrival, patient has been hypertensive to 179/77. Vital signs otherwise stable. She was placed on 3 L supplemental O2 and was maintaining oximetry 100%. Decreased O2 to 1 L now maintaining oximetry 90-92%. No leukocytosis. She has a macrocytic anemia with H/H 10.6/36.0%, MCV 100.8. Renal function baseline, electrolyte levels normal except for chloride 90, CO2 43 which is consistent with her baseline. VBG pending. Urinalysis with 3+ leukocytes, positive nitrites, significant urinary sediment and 4+ bacteria. CT of the head negative for acute intracranial abnormality. In the ED, has been given 1 g IV ceftriaxone. Hospital course: Patient presented with confusion and transient paresthesia and found to have UTI and started on Ceftriaxone. CT of the head showed no acute stroke, she declined MRI. Her symptoms have resolved and encephalopathy is resolved as well. She was seen by Neurology with suspcion of UTI causing encephalopathy. She catrachita carotid US showing no significant stenosis. PT assessed the patient and recommended home with PT. Time Attestation Discharge Coordination Time (in mins): 35 Quality: Safe Use of Opioids Does Pt have an Active Cancer Diagnosis on the Problem List?: No Quality: Stroke Does the patient have a stroke diagnosis?: No Physical Exam Vital Signs: Vital Signs: Last Vital Signs Temp 97.8 F 05/05/24 08:00 Pulse 71 05/05/24 08:00 Resp 20 05/05/24 08:00 BP 195/88 H 05/05/24 08:00 Pulse Ox 95 05/05/24 08:00 O2 Del Method Room Air, Nasal C annula 05/05/24 08:00 O2 Flow Rate 2 05/05/24 08:00 BMI result Body Mass Index 46.6 DS: Data Data Completed and Pending Completed studies during hospitalization [Text1]: Procedures Assistance with Respiratory Ventilation, Less than 24 Consecutive Hours, Continuous Positive Airway Pressure (11/02/23) Insertion of Endotracheal Airway into Trachea, Via Natural or Artificial Opening Endoscopic (07/12/21) Inspection of Lower Intestinal Tract, Via Natural or Artificial Opening Endoscopic (02/20/22) Resection of Gallbladder, Percutaneous Endoscopic Approach (07/12/21) Respiratory Ventilation, Less than 24 Consecutive Hours (07/12/21) Labs on day of discharge: Laboratory Results - last 24 hr 05/04/24 05/04/24 05/04/24 10:27 14:45 17:12 WBC 6.5 RBC 3.57 L Hgb 10.6 L Hct 36.0 L MCV 100.8 H MCH 29.7 MCHC 29.4 L RDW 12.8 Plt Count 129 L MPV 11.3 Immature Gran % (Auto) 0.5 H Neut % (Auto) 65.6 Lymph % (Auto) 24.3 [place] % (Auto) 8.0 Eos % (Auto) 1.1 Baso % (Auto) 0.5 Lymph # (Auto) 1.6 [place] # (Auto) 0.5 Eos # (Auto) 0.1 Baso # (Auto) 0.0 Abs Immat Gran (auto) 0.03 Absolute Neuts (auto) 4.2 Absolute Nucleated RBC 0.000 Nucleated RBC % (auto) 0.0 Smear Tech's Comments PT 11.7 INR 1.0 VBG pH VBG pCO2 VBG pO2 VBG HCO3 VBG O2 Saturation VBG Base Excess Sodium 142 Potassium 4.8 Chloride 90 L Carbon Dioxide 43 H* Anion Gap 14 BUN 19 H Creatinine 0.82 Estim Creat Clear Calc 70.6 Estimated GFR > 60 Random Glucose 120 H Calcium 9.3 Magnesium 1.7 Total Bilirubin 0.3 AST 14 ALT 11 Alkaline Phosphatase 45 Ammonia 52 Total Protein 7.1 Albumin 3.7 Triglycerides 67 Cholesterol 133 LDL Cholesterol, Calc 69 HDL Cholesterol 51 Vitamin B12 336 Folate 9.2 TSH 0.53 Urine Color Yellow Urine Appearance Clear Urine pH 6.0 Ur Specific [place] 1.010 Urine Protein Negative Urine Glucose (UA) Negative Urine Ketones Negative Urine Blood Negative Urine Nitrite Positive H Ur Leukocyte Esterase Large (3+) H Urine RBC 0-2 Urine WBC >50 H Ur Squamous Epith Cells 0-2 Urine Bacteria 4+ Hyaline Casts 0-2 05/04/24 05/05/24 17:14 06:12 WBC 7.0 RBC 4.05 L Hgb 12.1 Hct 39.5 MCV 97.5 MCH 29.9 MCHC 30.6 L RDW 12.4 Plt Count 110 L MPV Not Reportable Immature Gran % (Auto) 0.7 H Neut % (Auto) 66.6 Lymph % (Auto) 22.2 [place] % (Auto) 8.5 Eos % (Auto) 1.7 Baso % (Auto) 0.3 Lymph # (Auto) 1.6 [place] # (Auto) 0.6 Eos # (Auto) 0.1 Baso # (Auto) 0.0 Abs Immat Gran (auto) 0.05 H Absolute Neuts (auto) 4.7 Absolute Nucleated RBC 0.000 Nucleated RBC % (auto) 0.0 Smear Tech's Comments VERIFIED PT INR VBG pH 7.43 VBG pCO2 81 VBG pO2 52 VBG HCO3 54 H VBG O2 Saturation 85.0 VBG Base Excess 25.6 Sodium 141 Potassium 4.8 Chloride 96 Carbon Dioxide 35 H Anion Gap 15 BUN 14 Creatinine 0.65 Estim Creat Clear Calc 89.1 Estimated GFR > 60 Random Glucose 106 Calcium 10.0 D Magnesium Total Bilirubin AST ALT Alkaline Phosphatase Ammonia Total Protein Albumin Triglycerides Cholesterol LDL Cholesterol, Calc HDL Cholesterol Vitamin B12 Folate TSH Urine Color Urine Appearance Urine pH Ur Specific Power Urine Protein Urine Glucose (UA) Urine Ketones Urine Blood Urine Nitrite Ur Leukocyte Esterase Urine RBC Urine WBC Ur Squamous Epith Cells Urine Bacteria Hyaline Casts Discharge Plan Discharge Anticipated Discharge Date/Time: 05/05/24 10:28 Patient Disposition: Home Health Service Discharge Diagnosis: UTI, encephalopathy, Referrals: [facility] [Outside] - 1 Day (HOME PHYSICAL THERAPY) Carmine Patel MD [Primary Care Provider] - 1 Week Discharge Medications: New cefuroxime axetil 250 mg tablet 250 mg PO BID Qty: 8 0RF Continued Janumet XR 50-1,000 mg tablet, ER multiphase 24 hr 1 tab PO DAILY pravastatin 40 mg tablet 40 mg PO BEDTIME ergocalciferol (vitamin D2) 1,250 mcg (50,000 unit) capsule 1,250 mcg PO MO albuterol sulfate 90 mcg/actuation HFA aerosol inhaler 2 puff inhalation Q6H PRN (Reason: Wheezing) famotidine 20 mg tablet 20 mg PO BID carvedilol 12.5 mg Tablet 12.5 mg PO BID Qty: 60 0RF Protocol: Hold for SBP/HR < HOLD for SBP < : 90 HOLD for HR < : 60 insulin glargine [Lantus U-100 Insulin] 100 unit/mL Solution 20 unit subcut BEDTIME Qty: 10 0RF losartan 50 mg tablet 50 mg PO DAILY Qty: 30 0RF insulin lispro [Admelog U-100 Insulin lispro] 100 unit/mL solution 5 unit subcut BIDWM pantoprazole 20 mg tablet,delayed release (DR/EC) 20 mg PO DAILY@0630 albuterol sulfate 2.5 mg /3 mL (0.083 %) solution for nebulization 2.5 mg inhalation Q6H PRN (Reason: Shortness Of Breath Or Wheezing) (DME) lancets [TRUEplus Lancets] 33 gauge misc See Rx Instructions topical .MEDSUPPLY Qty: 100 Rx Instructions: As directed furosemide 40 mg tablet 40 mg PO DAILY Discharge Orders: Discharge Order (Routine); Ordered 05/06/24 Ordered By: Robert Montgomery Diet: Diabetic diet Activity on Discharge: As tolerated Stand Alone Forms: Patient Portal Discharge page Print Language: Georgian Care Plan Goals: full recovery from UTI And encephalopathy Health Concerns: morbid obesity UTI encephalopathy Plan of Treatment: take cefuroxime ( Ceftin) as directed and follow-up with your primary care doctor within a week, call for appointment. Assessment: See above Discharge Date/Time: 05/06/24 16:09
--- NOTE | 2024-05-05 10:34 | HO.PM.IMPN ---
Subjective Subjective Date of Service: 05/05/24 Interval History: f/u on ecephalopathy d/t uti, no evidence of stroke refusing mri, gram negative keegan in urine Physical Exam Vital Signs: Vital Signs: Last Vital Signs Temp 97.8 F 05/05/24 08:00 Pulse 71 05/05/24 08:00 Resp 20 05/05/24 08:00 BP 195/88 H 05/05/24 08:00 Pulse Ox 95 05/05/24 08:00 O2 Del Method Room Air, Nasal C annula 05/05/24 08:00 O2 Flow Rate 2 05/05/24 08:00 BMI result Body Mass Index 46.6 General: AO X 3, no acute distress Resp: CTA bilateral CVS: S1,S2,RRR GI: +BS, NT, no distention Skin: No rash Neuro: motor grossly intact Psych: appropriate affect Objective Data Active Medications Acetaminophen (Acetaminophen 325 Mg Tablet) 650 mg PO Q6H PRN PRN Reason: Pain, Mild (Pain Scale 1-3), fever or headache Last Admin: 05/04/24 19:17 Dose: 650 mg Documented By: JOSE LUIS Acetazolamide (Acetazolamide 250 Mg Tablet) 250 mg PO BID [facility] Last Admin: 05/05/24 07:51 Dose: 250 mg Documented By: OLINDA Albuterol Sulfate (Albuterol Sulfate (0.083%) 2.5 Mg/3 Ml Vial.Neb) 2.5 mg INHALE Q6H PRN PRN Reason: Shortness Of Breath Or Wheezing Albuterol Sulfate (Albuterol Sulfate 90 Mcg 8 Gm Inhaler) 2 puff INHALE Q6H PRN PRN Reason: Wheezing Aspirin (Aspirin Enteric Coated 81 Mg Tablet.) 81 mg PO DAILY [facility] Last Admin: 05/05/24 07:51 Dose: 81 mg Documented By: OLINDA Atorvastatin Calcium (Atorvastatin Calcium 80 Mg Tablet) 80 mg PO DAILY [facility] Last Admin: 05/05/24 07:51 Dose: 80 mg Documented By: OLINDA Calcium Carbonate (Calcium Carbonate 750 Mg Tab.Chew) 750 mg PO Q4H PRN PRN Reason: Heartburn Enoxaparin Sodium (Enoxaparin Sodium 40 Mg/0.4 Ml Syringe) 40 mg SUBCUT Q24H [facility] Last Admin: 05/04/24 17:12 Dose: 40 mg Documented By: JOSE LUIS Ergocalciferol (Ergocalciferol (Vitamin D2) 1,250 Mcg Capsule) 1,250 mcg PO MO [facility] Famotidine (Famotidine 20 Mg Tablet) 20 mg PO BID [facility] Last Admin: 05/05/24 07:51 Dose: 20 mg Documented By: OLINDA Ceftriaxone Sodium 1 gm/ (Sodium Chloride) 50 mls @ 100 mls/hr IV Q24H [facility] Insulin Glargine (Insulin Glargine,Hum.Rec.Anlog 100 Unit/Ml 10 Ml Vial) 15 unit SUBCUT BEDTIME [facility] Last Admin: 05/04/24 21:34 Dose: 15 unit Documented By: ANDREA Magnesium Hydroxide (Milk Of Magnesia 30 Ml Oral.Susp) 30 ml PO DAILY PRN PRN Reason: Constipation Melatonin (Melatonin 3 Mg Tablet) 6 mg PO BEDTIME PRN PRN Reason: Insomnia Omeprazole (Omeprazole 20 Mg Capsule.Dr) 20 mg PO DAILY@0630 [facility] Last Admin: 05/05/24 06:20 Dose: 20 mg Documented By: DANIELITO Sodium Chloride (0.9 % Sodium Chloride Flush 3 Ml Syringe) 3 ml IVFLUSH QSHIFT [facility] Last Admin: 05/05/24 07:51 Dose: 3 ml Documented By: OLINDA Labs 05/05/24 06:12 05/05/24 06:12 Labs: Laboratory Results - last 24 hr 05/04/24 05/04/24 05/04/24 10:27 14:45 17:12 MCV 100.8 H MCH 29.7 MCHC 29.4 L RDW 12.8 Plt Count 129 L MPV 11.3 Immature Gran % (Auto) 0.5 H Neut % (Auto) 65.6 Lymph % (Auto) 24.3 [place] % (Auto) 8.0 Eos % (Auto) 1.1 Baso % (Auto) 0.5 Lymph # (Auto) 1.6 [place] # (Auto) 0.5 Eos # (Auto) 0.1 Baso # (Auto) 0.0 Abs Immat Gran (auto) 0.03 Absolute Neuts (auto) 4.2 Absolute Nucleated RBC 0.000 Nucleated RBC % (auto) 0.0 Smear Tech's Comments PT 11.7 INR 1.0 VBG pH VBG pCO2 VBG pO2 VBG HCO3 VBG O2 Saturation VBG Base Excess Anion Gap 14 Estim Creat Clear Calc 70.6 Estimated GFR > 60 Random Glucose 120 H Calcium 9.3 Magnesium 1.7 Total Bilirubin 0.3 AST 14 ALT 11 Alkaline Phosphatase 45 Ammonia 52 Total Protein 7.1 Albumin 3.7 Triglycerides 67 Cholesterol 133 LDL Cholesterol, Calc 69 HDL Cholesterol 51 Vitamin B12 336 Folate 9.2 TSH 0.53 Urine Color Yellow Urine Appearance Clear Urine pH 6.0 Ur Specific [place] 1.010 Urine Protein Negative Urine Glucose (UA) Negative Urine Ketones Negative Urine Blood Negative Urine Nitrite Positive H Ur Leukocyte Esterase Large (3+) H Urine RBC 0-2 Urine WBC >50 H Ur Squamous Epith Cells 0-2 Urine Bacteria 4+ Hyaline Casts 0-2 05/04/24 05/05/24 17:14 06:12 MCV 97.5 MCH 29.9 MCHC 30.6 L RDW 12.4 Plt Count 110 L MPV Not Reportable Immature Gran % (Auto) 0.7 H Neut % (Auto) 66.6 Lymph % (Auto) 22.2 [place] % (Auto) 8.5 Eos % (Auto) 1.7 Baso % (Auto) 0.3 Lymph # (Auto) 1.6 [place] # (Auto) 0.6 Eos # (Auto) 0.1 Baso # (Auto) 0.0 Abs Immat Gran (auto) 0.05 H Absolute Neuts (auto) 4.7 Absolute Nucleated RBC 0.000 Nucleated RBC % (auto) 0.0 Smear Tech's Comments VERIFIED PT INR VBG pH 7.43 VBG pCO2 81 VBG pO2 52 VBG HCO3 54 H VBG O2 Saturation 85.0 VBG Base Excess 25.6 Anion Gap 15 Estim Creat Clear Calc 89.1 Estimated GFR > 60 Random Glucose 106 Calcium 10.0 D Magnesium Total Bilirubin AST ALT Alkaline Phosphatase Ammonia Total Protein Albumin Triglycerides Cholesterol LDL Cholesterol, Calc HDL Cholesterol Vitamin B12 Folate TSH Urine Color Urine Appearance Urine pH Ur Specific [place] Urine Protein Urine Glucose (UA) Urine Ketones Urine Blood Urine Nitrite Ur Leukocyte Esterase Urine RBC Urine WBC Ur Squamous Epith Cells Urine Bacteria Hyaline Casts Microbiology Microbiology Results: Microbiology 05/04/24 Unknown Urine Culture - Preliminary Urine clean catch - Clean Catch Midstream Gram negative keegan Assessment and Plan (1) Class 3 obesity with alveolar hypoventilation and body mass index (BMI) of 40.0 to 44.9 in adult: Status: Acute (2) UTI (urinary tract infection): Status: Acute Plan 79-year-old female with history of pulmonary hypertension, chronic hypercapnic respiratory failure/obesity hypoventilation syndrome on 2 L O2 at baseline, heart failure preserved ejection fraction, insulin-dependent type 2 diabetes, NICO compliant with CPAP, who is morbidly obese with BMI greater than 46 admitted or actue encepahalopthy and paresthesias #LLE paresthesias/weakness -new since yesterday notable weakness on the left side -seems resolved -CT negative for acute intracranial abn, refusing MRI -LKWT sunday bedtime. Outside TNK window. NIHSS 2 -carotid u/s -given 325mg asa, continue 81mg daily -check bedside swallow eval, stroke edu, neuro checks -neuro eval #Acute metabolic encephalopathy d/t UTI, resolved. #Chronic BUE paresthesias -has chronic macrocytic anemia -check vitamin b12/folic acid #Acute UTI -no leukocytosis, no sepsis -iv ctx (initiated 05/04) -follow cultures #Chronic mixed respiratory acidosis and metabolic alkalosis -dc lasix, add acetazolamide 250 mg b.i.d., improved #HTN--no evidence of stroke, BP high, resume meds #NICO/obesity hyperventilation syndrome with chronic hypercapneic respiratory failure -co2 baseline, but given encephalopathy and pt has been on 3L satting 100%, check vbg -continue O2 to maintain oximetry 90-92%, reduce home dose (2L) if needed -CPAP bedtime #HFpEF -resume diuretics as appropriate, clinically euvolemic # insulin-dependent type 2 diabetes -dose adjusted basal insulin -POC glucose, diabetic diet -hold janumet # morbid obesity, class 3, with BMI greater than 46 -weight loss efforts DVT prophylaxis-Lovenox Quality Stroke Does the patient have a stroke diagnosis?: No Reason for No Anti-thrombotic by Day Two: Drug treatment not indicated VTE Prior VTE?: No VTE Risk Level:: Medical - moderate - high VTE Device Contraindication: Treatment Not Indicated VTE Drug Contraindication: N/A - Med Ordered
[2024-05-05] MEDS: carvediloL 12.5 MG TABLET PO ×2 (11:41→20:14)
[2024-05-05] MEDS: Losartan Potassium 50 MG TABLET PO (11:42)
[2024-05-05 11:57] VITALS: BP 189/83; PULSE 79; RESP 20; TEMP 36.6
[2024-05-05 16:00] VITALS: BP 188/78; PULSE 74; RESP 18; TEMP 36.1
[2024-05-05] MEDS: Enoxaparin Sodium 40 MG/0.4 ML SYRINGE SUBCUT (16:21)
[2024-05-05] MEDS: cefTRIAXone sodium 1 GM in 0.9 % Sodium Chloride 50 ML IV (16:22)
--- NOTE | 2024-05-05 16:51 | P.CNNE_ITS ---
History of Present Illness Data of Consult Service Date: 05/05/24 Primary Care Provider: Unknown Physician HPI 79-year-old female with history of pulmonary hypertension, chronic hypercapnic respiratory failure/obesity, hypoventilation syndrome on 2 L O2 at baseline, heart failure with preserved ejection fraction, insulin-dependent type 2 diabetes, NICO compliant with CPAP, who is morbidly obese with BMI greater than 46 presented to the ED earlier today from home where she resides with her cousin due to paresthesias and headache. She is a limited historian oriented only to self, majority of history obtained from her son. She states for many months she has had paresthesias in the BUE but today was dropping things due to lack of sensation. States new paresthesias in the LLE. Did have a fall about 5 months ago and fractured her ankle and has been in a cast followed by ortho since then. Her son reports since the day before admission she has been confused from baseline. Was seen a day earlier in ED for the headache and paresthesias and was discharged wtih gabapentin which was picked up but not yet started. She was placed on 3 L supplemental O2 and was maintaining oximetry 100%. Decreased O2 to 1 L now maintaining oximetry 90-92%. No leukocytosis. She has a macrocytic anemia with H/H 10.6/36.0%, MCV 100.8. Renal function baseline, electrolyte levels normal except for chloride 90, CO2 43 which is consistent with her baseline. Urinalysis with 3+ leukocytes, positive nitrites, significant urinary sediment and 4+ bacteria. CT of the head negative for acute intracranial abnormality. Carotid doppler normal. [facility] Past Medical History Medical History NICO (obstructive sleep apnea) CHF (congestive heart failure) 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 indication of end stage renal disease in patient 6 to 64 years of age Lymphadenopathy Abdominal pain Bursitis of right hip Osteoarthritis of right hip Restrictive ventilatory defect Dyspnea on exertion Varicose veins of right lower extremity with inflammation Pneumonitis Pulmonary hypertension Hypertensive cardiovascular disease Acute hypoxic on chronic hypercapnic respiratory failure Acute on chronic respiratory failure with hypoxemia Obesity hypoventilation syndrome GERD (gastroesophageal reflux disease) Hypertension Diabetes mellitus COPD (chronic obstructive pulmonary disease) Family History Family History Mother Diabetes Surgical History Surgical History S/P laparoscopic cholecystectomy (07/14/21) Social History Social History Household Members: Family Household Members Other:: cousin Housing: Apartment Do you presently have visiting nurse or other home services: No (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) Alcohol intake: never Patient Tobacco Use Status: Former Tobacco user Tobacco use type: Cigarette Years Smoked: 20 Smoked in Last 30 Days: No Use of substances other than those prescribed or required for medical reasons: No Currently Displaying Signs/Symptoms of Drug Intoxication Withdrawal: No Advance Directives: Yes Advance Directives on File: Yes Advance Directives Date on File: 02/23/24 Recently lost weight without trying: Unsure Patient : No : No Poor oral hygiene: No service: No Current occupational status: unemployed and disabled Meds Allergies Allergy/AdvReac Type Severity Reaction Status Date / Time No Known Allergies Allergy Verified 05/04/24 10:15 [No Known Allergies*] Active Medications: Current Medications Acetaminophen (Acetaminophen 325 Mg Tablet) 650 mg PO Q6H PRN PRN Reason: Pain, Mild (Pain Scale 1-3), fever or headache Last Admin: 05/04/24 19:17 Dose: 650 mg Acetazolamide (Acetazolamide 250 Mg Tablet) 250 mg PO BID [facility] Last Admin: 05/05/24 07:51 Dose: 250 mg Albuterol Sulfate (Albuterol Sulfate (0.083%) 2.5 Mg/3 Ml Vial.Neb) 2.5 mg INHALE Q6H PRN PRN Reason: Shortness Of Breath Or Wheezing Albuterol Sulfate (Albuterol Sulfate 90 Mcg 8 Gm Inhaler) 2 puff INHALE Q6H PRN PRN Reason: Wheezing Aspirin (Aspirin Enteric Coated 81 Mg Tablet.Dr) 81 mg PO DAILY [facility] Last Admin: 05/05/24 07:51 Dose: 81 mg Atorvastatin Calcium (Atorvastatin Calcium 80 Mg Tablet) 80 mg PO DAILY [facility] Last Admin: 05/05/24 07:51 Dose: 80 mg Calcium Carbonate (Calcium Carbonate 750 Mg Tab.Chew) 750 mg PO Q4H PRN PRN Reason: Heartburn Carvedilol (Carvedilol 12.5 Mg Tablet) 12.5 mg PO BID [facility]; Protocol Last Admin: 05/05/24 11:41 Dose: 12.5 mg Enoxaparin Sodium (Enoxaparin Sodium 40 Mg/0.4 Ml Syringe) 40 mg SUBCUT Q24H [facility] Last Admin: 05/05/24 16:21 Dose: 40 mg Ergocalciferol (Ergocalciferol (Vitamin D2) 1,250 Mcg Capsule) 1,250 mcg PO MO [facility] Famotidine (Famotidine 20 Mg Tablet) 20 mg PO BID [facility] Last Admin: 05/05/24 07:51 Dose: 20 mg Ceftriaxone Sodium 1 gm/ (Sodium Chloride) 50 mls @ 100 mls/hr IV Q24H [facility] Last Admin: 05/05/24 16:22 Dose: 100 mls/hr Insulin Glargine (Insulin Glargine,Hum.Rec.Anlog 100 Unit/Ml 10 Ml Vial) 15 unit SUBCUT BEDTIME [facility] Last Admin: 05/04/24 21:34 Dose: 15 unit Losartan Potassium (Losartan Potassium 50 Mg Tablet) 50 mg PO DAILY [facility]; Protocol Last Admin: 05/05/24 11:42 Dose: 50 mg Magnesium Hydroxide (Milk Of Magnesia 30 Ml Oral.Susp) 30 ml PO DAILY PRN PRN Reason: Constipation Melatonin (Melatonin 3 Mg Tablet) 6 mg PO BEDTIME PRN PRN Reason: Insomnia Omeprazole (Omeprazole 20 Mg Capsule.Dr) 20 mg PO DAILY@0630 [facility] Last Admin: 05/05/24 06:20 Dose: 20 mg Pravastatin Sodium (Pravastatin Sodium 40 Mg Tablet) 40 mg PO BEDTIME [facility] Sodium Chloride (0.9 % Sodium Chloride Flush 3 Ml Syringe) 3 ml IVFLUSH QSHIFT [facility] Last Admin: 05/05/24 07:51 Dose: 3 ml Home Medications ?Medication ?Instructions ?Recorded ?Confirmed ?Last Taken ?Type lancets 33 gauge (TRUEplus Lancets) #100 ea 09/20/21 04/21/24 02/19/22 History sitagliptin phos 50 mg-metformin 1 tab PO DAILY 02/20/22 05/04/24 11/01/23 History ER 1,000 mg tablet,extend rel 24h mp (Janumet XR) furosemide 40 mg tablet 40 mg PO DAILY 05/11/23 05/04/24 11/01/23 History albuterol sulfate 90 mcg/actuation 2 puff inhalation Q6H PRN Wheezing 11/02/23 05/04/24 11/01/23 History aerosol inhaler ergocalciferol (vitamin D2) 1,250 1,250 mcg PO MO 11/02/23 05/04/24 11/01/23 History mcg (50,000 unit) capsule famotidine 20 mg tablet 20 mg PO BID 11/02/23 05/04/24 11/01/23 History pravastatin 40 mg tablet 40 mg PO BEDTIME 11/02/23 05/04/24 11/01/23 History albuterol sulfate 2.5 mg/3 mL 2.5 mg inhalation Q6H PRN 05/04/24 05/04/24 Unknown History (0.083 %) solution for nebulization Shortness Of Breath Or Wheezing insulin lispro 100 unit/mL 5 unit subcut BIDWM 05/04/24 05/04/24 Unknown History subcutaneous solution (Admelog U-100 Insulin lispro) pantoprazole 20 mg tablet,delayed 20 mg PO DAILY@0630 05/04/24 05/04/24 Unknown History release Physical Exam 2 Vital Signs: Vital Signs: Last Vital Signs Temp 97.8 F 05/05/24 11:57 Pulse 79 05/05/24 11:57 Resp 20 05/05/24 11:57 BP 189/83 H 05/05/24 11:57 Pulse Ox 95 05/05/24 08:00 O2 Del Method Nasal Cannula 05/05/24 11:57 O2 Flow Rate 2 05/05/24 11:57 BMI result Body Mass Index 46.6 Neuro: Other: She is alert and oriented with normal and vital functions. Cranial nerves II through XII are normal. Speech and language normal. No drift of the upper extremities. Mild weakness of the right lower extremity where she has a cast neck is supple. Results Labs 05/05/24 06:12 05/05/24 06:12 Labs: Short CBC 05/05/24 Range/Units 06:12 WBC 7.0 (4.8-10.8) X10*3/uL Hgb 12.1 (12.0-16.0) g/dl Hct 39.5 (37.0-47.0) % Plt Count 110 L (160-400) X10*3/uL BMP 05/05/24 06:12 Sodium 141 Potassium 4.8 Chloride 96 Carbon Dioxide 35 H BUN 14 Creatinine 0.65 Calcium 10.0 D Microbiology Microbiology Results: Microbiology 05/04/24 Unknown Urine clean catch - Clean Catch Midstream Urine Culture - Preliminary Gram negative keegan Assessment and Plan (1) Encephalopathy: Status: Acute Transient encephalopathy related to UTI and possible hyperventilation. At this time the patient is back to her baseline. Her exam is nonfocal. No evidence of stroke. Recommendation: Treat UTI. Supplemental oxygen. No further neurological workup indicated Procedures Date of Service Date of Service: 05/05/24
[2024-05-05] MEDS: Ergocalciferol (Vitamin D2) 1,250 MCG CAPSULE 1250 MCG PO (17:30)
[2024-05-05] MEDS: amLODIPine Besylate 5 MG TABLET PO (17:48)
[2024-05-05 19:27] VITALS: BP 182/83; PULSE 84; RESP 20; TEMP 36.5; O2SAT 99
[2024-05-05] MEDS: Pravastatin Sodium 40 MG TABLET PO (20:14)
[2024-05-05] MEDS: Melatonin 3 MG TABLET 6 MG PO (20:14)
[2024-05-05] MEDS: Insulin Glargine,Hum.rec.anlog 100 UNIT/ML 10 ML VIAL 15 UNIT SUBCUT (22:24)
[2024-05-06] VITALS: BP 201/104; PULSE 77; RESP 20; TEMP 36.1; O2SAT 92
[2024-05-06] MEDS: Acetaminophen 325 MG TABLET 650 MG PO (01:37)
[2024-05-06 01:48] VITALS: BP 182/86
[2024-05-06 04:07] VITALS: BP 174/78; PULSE 71
[2024-05-06] MEDS: Labetalol HCL 100 MG/20 ML VIAL 20 MG IVPUSH (04:07)
[2024-05-06 04:24] VITALS: PULSE 79; RESP 20; TEMP 36.9; O2SAT 93
[2024-05-06] MEDS: Omeprazole 20 MG CAPSULE.DR PO (06:33)
[2024-05-06 07:49] VITALS: BP 170/77; PULSE 78; RESP 18; TEMP 36.9; O2SAT 92
[2024-05-06] MEDS: Atorvastatin Calcium 80 MG TABLET PO (08:13)
[2024-05-06] MEDS: Losartan Potassium 50 MG TABLET PO (08:13)
[2024-05-06] MEDS: Aspirin Enteric Coated 81 MG TABLET.DR PO (08:13)
[2024-05-06] MEDS: carvediloL 12.5 MG TABLET PO (08:13)
[2024-05-06] MEDS: 0.9 % Sodium Chloride Flush 3 ML SYRINGE IVFLUSH ×2 (08:13→14:59)
[2024-05-06] MEDS: Famotidine 20 MG TABLET PO (08:13)
[2024-05-06] MEDS: amLODIPine Besylate 5 MG TABLET PO (08:13)
[2024-05-06] MEDS: acetaZOLAMIDE 250 MG TABLET PO (08:13)
[2024-05-06 11:53] VITALS: BP 117/58; PULSE 64; RESP 18; TEMP 36.3
--- NOTE | 2024-05-06 12:47 | W.MHC.F2F ---
Service Date Service Date: 05/06/24 Encounter Date of encounter: 05/06/24 Reasons for Services Signs and symptoms assessed: weakness, paresthesia Reason for physical therapy: home safety and mobility, therapeutic exercises and gait/transfer training Reason for occupational therapy: therapeutic exercises, gait/transfer training and ADL training Homebound: Leaving the home is medically contraindicated at this time without the asist of a device and/or another person due th the listed conditions above and below. Reason homebound: unsteady gait / fall risk Homebound supporting statement: homebound due o unsteady gait, confusion due to uti at risk for fall and therefore needs the assistance Certification: Based on the above findings, I certify that this patient is confined to the home and needs intermittent fpc care, physical therapy and/or speech therapy, or continues to need occupational therapy. The patient is under my care, and I have initiated the establishment of the plan of care. The patient will be followed by a physician who will periodically review the plan of care. Time Spent With Patient Time: Total time managing care of this patient today ____ minutes.
--- NOTE | 2024-05-06 14:20 | MHC.CM.PN ---
PT MEDICALLY CLEARED FOR DC HOME W/NEW [facility] FOR HOME PT AND RESUMP OF HOME [employer] FOR BLS TRANSPORT AT 4PM [facility] ID#[id number]
[2024-05-06] MEDS: cefTRIAXone sodium 1 GM in 0.9 % Sodium Chloride 50 ML IV (14:58)
--- OUTSIDE RECORDS SUMMARY | 2024-05-07 07:26 | XMS_ITS | Continuity of Care Document ---
Author Organization [facility] ter Address [address] [place] [id number] Care Team Providers Care Analytics Lead Name Role Phone YooLesaZa Kebede DO Primary Care Physician Encounter [facility] Date(s): 02/07/24 - 02/08/[address] [id number]- Discharge Disposition: A-D/C Home Attending Physician: Meek Guerrero MD Admitting Physician: Benja YEBOAH, Ester Referring Physician: Not on Staff, Referring MD Allergies, Adverse Reactions, Alerts No Known Allergies Medications Albuterol (Eqv-Ventolin HFA) 90 mcg/inh inhalation aerosol 2 puffs, Inhalation, Every 6 hours, PRN Wheezing/Shortness of Breath, Maintenance, 02/07/24 18:40:00 EDT, Partial fill upon patient request if the prescription is for a schedule II opioid drug. Start Date: 02/07/24 Status: Ordered albuterol 0.083% inhalation solution 3 mL = 2.5 mg, Neb, Every 6 hours, PRN Wheezing/Shortness of Breath, Maintenance, 02/07/24 18:40:00EDT, Partial fill upon patient request if the prescription is for a schedule II opioid drug. Start Date: 02/07/24 Status: Ordered Coreg 12.5 mg oral tablet 12.5 mg, 1, tablet, By Mouth, 2 times a day with meals, Maintenance, 02/07/24 18:37:00 EDT, Partialfill upon patient request if the prescription is for a schedule II opioid drug. Start Date: 02/07/24 Status: Ordered Coreg 12.5 mg oral tablet 12.5 mg, Tablet, By Mouth, 02/08/24 8:00:00 EDT Start Date: 02/08/24 Stop Date: 02/08/24 Status: Completed Coreg 12.5 mg oral tablet 12.5 mg, Tablet, By Mouth, 02/08/24 17:00:00 EDT Start Date: 02/08/24 Stop Date: 02/08/24 Status: Completed Cozaar 50 mg oral tablet 50 mg, 1, tablet, By Mouth, Daily, Maintenance, 02/07/24 18:37:00 EDT, Partial fill upon patient request if the prescription is for a schedule II opioid drug. Start Date: 02/07/24 Status: Ordered Janumet XR 50 mg-1000 mg oral tablet, extended release 1 tablet, By Mouth, Daily at supper, Maintenance, 02/07/24 18:39:00 EDT, Partial fill upon patient request if the prescription is for a schedule II opioid drug. Start Date: 02/07/24 Status: Ordered Pepcid 20 mg oral tablet 1 tablet = 20 mg, By Mouth, 2 times a day, Maintenance, 02/07/24 18:39:00 EDT, Partial fill upon patient request if the prescription is for a schedule II opioid drug. Start Date: 02/07/24 Status: Ordered Pravachol 40 mg oral tablet 1 tablet = 40 mg, By Mouth, Daily at bedtime, Maintenance, 02/07/24 18:39:00 EDT, Partial fill uponpatient request if the prescription is for a schedule II opioid drug. Start Date: 02/07/24 Status: Ordered Protonix 20 mg oral delayed release tablet 1 tablet = 20 mg, By Mouth, Daily before breakfast, Maintenance, 02/07/24 18:38:00 EDT Start Date: 02/07/24 Status: Ordered Vitamin D2 50,000 intl units (1.25 mg) oral capsule 1 capsule = 50,000 International_Units, By Mouth, Every week, Maintenance, 02/07/24 18:38:00 EDT, Partial fill upon patient request if the prescription is for a schedule II opioid drug. Start Date: 02/07/24 Status: Ordered Problem List Condition Confirmation Course Effective Dates Status Health St atus Informant Severe obesity Confirmed Active Results Radiology Reports * Exam Date Time Procedure Performing Provider Status 02/07/24 2:19 PM Chest Portable Mike Raines; Ramo (Nettie ified) Notes: (Chest Portable) Reason For Exam: Shortness of Breath RESULT: Chest Portable Examination: Portable chest performed on 02/07/2024. History: Shortness of breath. Findings: A frontal view of the chest is compared to a prior study dated 09/20/2012. The cardiac silhouette is difficult to assess due to low lung volumes. Minimal prominence of the pulmonary vasculature is seen. There are no focal infiltrates or pleural effusions. The osseous structures are grossly unremarkable. Impression: Low lung volumes. WSN: [id number] Ordering Physician: Lurdes Tobias Dictated By: Batool Baugh MD Dictated Date/Time: 02/07/24 2:53 pm Reviewed By: Batool Baugh MD Signed By: Batool Baugh MD Signed Date/Time: 02/07/24 2:53 pm Transcribed By: DAMARIS Transcribed Date/Time: 02/07/24 2:52 pm Vital Signs Most recent to oldest [Reference Range]: 1 2 3 Height 161 cm (02/07/24 7:41 PM) Weight 117.1 kg (02/07/24 7:41 PM) Oxygen Saturation [94-100 %] 100 % (02/08/24 4:00 PM) 98 % (02/08/24 3:00 PM) 92 % *L* (02/08/24 2:00 PM) Pulse Rate [55-90 bpm] 66 bpm (02/08/24 6:41 PM) 66 bpm (02/08/24 4:00 PM) 68 bpm (02/08/24 10:40 AM) Body Mass Index [18.5-24.99 kg/m2] 45.18 kg/m2 *>HHI* (02/07/24 7:41 PM) Blood Pressure [90-138/55-84 mm Hg] 127/80mm Hg (02/08/24 6:41 PM) 127/80mm Hg (02/08/24 4:00 PM) 145/66mm Hg *H* (02/08/24 1:00 PM) Respiratory Rate [16-30 br/min] 16 br/min (02/08/24 6:00 PM) 18 br/min (02/08/24 5:00 PM) 20 br/min (02/08/24 4:00 PM) Temperature [96.8-100.4 DegF] 98.5 DegF (02/08/24 4:00 PM) 98.8 DegF (02/08/24 8:00 AM) 97.7 DegF (02/08/24 4:00 AM) Liters per Minute 2 L/min (02/08/24 4:00 PM) 2 L/min (02/08/24 2:00 AM) 2 L/min (02/08/24 12:51 AM) Mode of Delivery (Oxygen) Nasal cannula (02/08/24 4:00 PM) BiPAP (02/08/24 8:00 AM) BiPAP (02/08/24 6:00 AM) Blood pressure sites Arm, left (02/08/24 6:00 AM) Arm, left (02/08/24 4:00 AM) Arm, left (02/08/24 2:00 AM) Temperature Route Temporal (02/08/24 4:00 PM) Temporal (02/08/24 8:00 AM) Axillary (02/08/24 4:00 AM) Dry Weight 117.1 kg (02/07/24 7:41 PM) Admission evaluation note * Marty YEBOAH, Rajeev: PERFORM, MODIFY Event Display: Admission Note Authored Date: Patient: ??NEDA TO ? Age:??78 Years?Sex:??Female?:??1945?? Chief Complaint/Reason for Consultation from home, said this am around 8 am she was acting funny-not baseline, this has happened before her retaining c02, 2 liters baseline, History of Present Illness 78-year-old presents to the emergency department with altered mental status.?? She was initially very confused and was not answering questions appropriately.?? Her later sleep a little bit longer, and she continued to be confused, therefore he called 911.?? She has had hypoxic respiratory failure with requiring intubation and ICU admission in the past, at another facility.?? She reportedly was wearing her BiPAP overnight.?? In the emergency department, she was found to have hypercarbic respiratory failure.?? She was placed on AVAPs, and her mental status did improve.?? She had no focal deficits.?? Is being admitted to [facility]. ?? Patient seen in ED after she had been on NIPPV for hours.?? She is fully alert and hemodynamically stable.?? She was interviewed with an in person operations supervisor. She is not?? a very good historian.?? She isn't sure what medications she takes.?? She denies taking any sedating medications.??No street drugs.?? She has not taken any benzodiazepines.?? She donsn't drink alcohol.?? She denieshaving any chronic lung disease.?? She has taken albuterol in the past, but none recently, uses it only prn.?? She reports using her bipap at night.?? No chest pain.?? NO recent uri symptoms.?? She has chronic mild LE edema that isn't changed recently.?? Objective Temperature?No result Systolic Blood Pressure?113 ?(17:42) Diastolic Blood Pressure?56 ?(17:42) Pulse?69 ?(17:42) SpO2?97 ?(17:42) Respiratory Rate?20 ?(17:42) ? Physical Exam General:??Alert, in no acute cardiopulmonary distress.?? Appears comfortable on the avaps.?? Mental Status:??Oriented to person, place not date. Normal affect. Head:??Normocephalic. Eyes:??Pupils are equal, round and reactive to light. Extraocular muscles intact. Ear, Nose and Throat:??Oropharynx clear, mucous membranes moist. Ears and nose without masses, lesions or deformities.?? Trachea midline. Neck:??Supple, Full range of motion. Respiratory:??Clear to auscultation. No wheezing, rales or rhonchi. Cardiovascular:??Heart sounds normal. No thrills. Regular rate and rhythm, no murmurs, rubs or gallops. Gastrointestinal:??Abdomen soft, non-tender, non-distended. Normal bowel sounds. No pulsatile mass.No hepatosplenomegaly. Genitourinary:??No costovertebral angle tenderness. Neurologic:??No focal neurological deficits.?? Moves all extremities spontaneously. Sensation intact bilaterally. Skin:??No rashes or lesions. No petechiae or purpura. No edema. Musculoskeletal:??No cyanosis or clubbing. No gross deformities. Lymphatics:??Palpation of neck reveals no swelling or tenderness of neck nodes. Assessment/Plan 78 yo with history of nico, obesity, liver abscess 2012, DM2, here with confusion and found to have hypercarbic respiratory faiure.? Metabolic encephalopathy ??(G93.41) secondary to Acute hypercapnic respiratory failure ??(J96.02) Suspect obesity/hypoventilation is driving the hypercarbia. She had low lung volumes on cxr.?? She does not have symptoms or signs of infection.?? She is not wheezing, and does not have history of asthma or copd so do not suspect copd exac --avoid sedating meds. --continue NIPPV until fullly awake. --When done with rescue bipap will resume at nightime and with naps --we have no bipap settings in our system.?? Hopefully can obtain from pcp tomorrow.?? --anticipate will be able to trial off bipap for dinner. --monitor closely in [facility]. ?? Hyperkalemia ??(E87.5) will give dose of lokelma repeat tomorrow ?? Type 2 diabetes mellitus ??(E11.9) On metformin/sitagliptan at home.?? hold here iss.?? monitor poc's. ?? Elevated serum creatinine ??(R79.89) Unknown if she has ckd.?? Will trend.?? Encourage po fluid intake after comes off of bipap. ?? Chronic problems Chronic GERD ??(K21.9)?? continue famotidine Hypertension ??(I10)?? hold losartan until ensure renal fxn stable.?? Continue coreg Hyperlipidemia ??(E78.5)?? continue pravastatin. ?? DVT ppx lovenox code status code status full code. ? Histories Allergies Allergies ?(Active and Proposed Allergies Only) NKA? (Severity: Unknown severity, Onset: Unknown) ? Past Medical History/Problem List Pyogenic liver abscess 2012 hypertension hyperlipidemia nico obesity DM type 2 GERD. ? Past Surgical History Insertion of peripherally inserted central venous catheter (PICC), without subcutaneous port or pump; younger than 5 years of age: 0109/20/12 ? Social History Lives with .?? NO tobacco, etoh, or drug use. ? Family History Unknown.? Medications Home Medications Albuterol (Albuterol (Eqv-Ventolin HFA) 90 mcg/inh inhalation aerosol)?2?puff(s)?Inhalation?Every 6 hours?as needed?Wheezing/Shortness of Breath Albuterol (albuterol 0.083% inhalation solution)?3?Milliliter?2.5?Milligram?Neb?Every 6 hours?as needed?Wheezing/Shortness of Breath Carvedilol (Coreg 12.5 mg oral tablet)?12.5?Milligram?1?tablet?By Mouth?2 times aday with meals Ergocalciferol (Vitamin D2 50,000 intl units (1.25 mg) oral capsule)?1?capsule?50,000?International Unit?By Mouth?Every week Famotidine (Pepcid 20 mg oral tablet)?1?tab(s)?20?Milligram?By Mouth?2 times a day Losartan (Cozaar 50 mg oral tablet)?50?Milligram?1?tablet?By Mouth?Daily metformin-sitagliptin (Janumet XR 50 mg-1000 mg oral tablet, extended release)?1?tab(s)?ByMouth?Daily at supper Pantoprazole (Protonix 20 mg oral delayed release tablet)?1?tab(s)?20?Milligram?By Mouth?Daily before breakfast Pravastatin (Pravachol 40 mg oral tablet)?1?tab(s)?40?Milligram?By Mouth?Daily atbedtime ? Results ?Initial VBG 7.19/126/24/48.?? Repeat VBG 7.30/105/15/51 ?? White blood cell count 7.2, hemoglobin 10.8, platelets 170, repeat i-STAT hemoglobin was 13.3.?? Sodium 135, potassium 5.6 (on i-STAT), glucose 153, ionized calcium 1.05, BNP 611, high-sensitivity troponin 22, TSH 1.12.?? Metabolic profile sodium 141, potassium 4.8, chloride 90, bicarb 43, BUN 14, c reatinine 1.2 (no prior creatinine here), AST 10, ALT 10, total bilirubin 0.3, lactate 0.7 ?? Chest x-ray: Low lung volumes ?? ECG: Sinus rhythm at 63 bpm.?? No previous EKGs available. EKG study * Event Display: ECG 12-Lead Authored Date: Please click on pdf link to open report * Event Display: ECG 12-Lead Authored Date: Ventricular Rate: 63 BPM Atrial Rate: 63 BPM P-R Interval: 178 ms QRS Duration: 76 ms Q-T Interval: 430 ms QTC Calculation(Bazett): 440 ms P [place]: 44 degrees R Newcastle: 18 degrees T Newcastle: 60 degrees Normal sinus rhythm Cannot rule out Anterior infarct , age undetermined Abnormal ECG No previous ECGs available Confirmed by Joselito Mistry ([id number]) on 02/07/2024 2:36:20 PM [place]: [facility] Progress note * Sadi Boo RN: PERFORM, SIGN, VERIFY Event Display: Progress Note Hospital Authored Date: Patient: NEDA TO Age: 78 years Sex: Female : 1945 Associated Diagnoses: None Author: Sadi Boo RN Findings Narrative/Incidental Pt. received on bed start of shift , on inhalation via NC at 2 lpm, no s/s of respiratory distress. Georgian speaking , AOx3, able to communicate with limited kyrgyz. Safely transferred to [facility] with [facility] staff for transfer to home. . Discharge Information Case Management Discharge Plan : Case Management Discharge Plan Data 02/08/2024 14:47 EDT Discharge Level of Care at Discharge Homehealth/VNA Discharge VNA/Hospice/Home Care [facility] [phone] Name of Agency #1 [facility] [phone] Name of Agency #1 [facility] Service Categories #1 Occupational Therapy, Physical Therapy, Assisted Service Comments #1 [facility] [phone]/ will call within 24-48h of discharge to resume services if you do not hear from them please call Service Categories #2 Oxygen Therapy Pulmonary Rehab Discharge : Pulmonary Rehab Discharge Status 02/08/2024 9:07 EDT CPAP/BiPAP Mask Type Full CPAP/BiPAP Mask Size Large 02/08/2024 3:08 EDT CPAP/BiPAP Mask Type Full CPAP/BiPAP Mask Size Large 02/07/2024 22:47 EDT CPAP/BiPAP Mask Type Full CPAP/BiPAP Mask Size Large 02/07/2024 18:55 EDT CPAP/BiPAP Mask Type Full CPAP/BiPAP Mask Size Large 02/07/2024 14:38 EDT CPAP/BiPAP Mask Type Full CPAP/BiPAP Mask Size Large * Anders Mccarthy RN: PERFORM, SIGN, VERIFY Event Display: Progress Note Hospital Authored Date: Patient: NEDA TO Age: 78 years Sex: Female : 1945 Associated Diagnoses: None Author: Fabio VERDIN, Anders Findings Narrative/Incidental Pt on bipap this monring, transitioned to 2L nasal cannula. Ate breakfast and is currently breathing comfortably. Voiding. No other complaints. Communicated with patient using in-person yarn handler. . Discharge Information Pulmonary Rehab Discharge : Pulmonary Rehab Discharge Status 02/08/2024 9:07 EDT CPAP/BiPAP Mask Type Full CPAP/BiPAP Mask Size Large 02/08/2024 3:08 EDT CPAP/BiPAP Mask Type Full CPAP/BiPAP Mask Size Large 02/07/2024 22:47 EDT CPAP/BiPAP Mask Type Full CPAP/BiPAP Mask Size Large 02/07/2024 18:55 EDT CPAP/BiPAP Mask Type Full CPAP/BiPAP Mask Size Large 02/07/2024 14:38 EDT CPAP/BiPAP Mask Type Full CPAP/BiPAP Mask Size Large * Radha VERDIN, Shahnaz: PERFORM, SIGN, VERIFY Event Display: Progress Note Hospital Authored Date: Patient: NEDA TO Age: 78 years Sex: Female : 1945 Associated Diagnoses: None Author: Radha VERDIN, Shahnaz Findings Problem Related to Alteration in Respiratory Function (new) : Alteration in Respiratory Function/new 02/08/2024 2:00 EDT Alteration in Resp Status Related to Other: hypercarbic resp fail Goals & Outcomes, Respiratory Pt will maintain/resume baseline physical assessment, Pt will maintain adequate nutritional intake, Pt will maintain/resume normal fluid/electrolyte balance, Pt willnot develop complications r/t immobility Interventions, Respiratory Assess/monitor tolerance to IV infusions; verify rate/dose, Assess for and report S&S of respiratory distress, Position for comfort & optimal oxygenation, Monitor sputum color & consistency. Report changes to MD BRIAN Goals/Interventions, Respiratory Yes Respiratory, Problem Start 02/08/2024 2:18 Reviewed Plan with, Respiratory Patient Patient Progression, Respiratory Plan Initiation . Evaluation Pt Georgian speaking, yarn handler utilized for assessment. Pt alert, oriented to person only. Did not know year, place, or reason for hospitalization. LS dim, pt initally on bipap. Trialed off to 2L, tolerated well, placed back on for HS but then developed nausea. Taken off bipap again. NSR on tele.3+ BLE edema, +doppler pp. Safety precautions in place. . Note * Anders Mccarthy RN: PERFORM Event Display: Discharge/Transfer Note Hospital Authored Date: Nursing Discharge Note Entered On: 02/08/2024 19:41 EDT Performed On: 02/08/2024 19:41 EDT by Anders Mccarthy RN Nursing Discharge Note 2 Discharge Time : 02/08/2024 19:22 EDT Discharge Level of Care at Discharge : Homehealth/VNA Discharge VNA/Hospice/Home Care(v001) : [facility] [phone] Patient Left Unit Via : Ambulance Patient Accompanied Off Unit with : Ambulance/Chair Van Personnel Handover Given to Transport Personnel : Yes DC Instructions Provided & Signed by Pt : Yes Patient Understands D/C Instructions : Yes Patient Instructions Discharge Signed : Yes Did Pt have Specialty Bed or Wound Vac : No Anders Mccarthy RN - 02/08/2024 19:41 EDT * Octavio Núñez MD: PERFORM, MODIFY Event Display: Discharge/Transfer Note Hospital Authored Date: Patient: ??NEDA TO ? Age:??78 Years?Sex:??Female?:??1945?? Patient Information Discharge Location: [facility], [place] Primary Care Physician: Za Moore DO Admit Date/Time: 02/07/24 17:11 Discharge Disposition Discharge Disposition: Home: No Services Discharge Diagnosis Chronic hypoxic respiratory failure (J96.11) CO2 narcosis (R06.89) Acute hypercapnic respiratory failure (J96.02) Metabolic encephalopathy (G93.41) Hypertension (I10) Hyperlipidemia (E78.5) Obesity (E66.9) Hyperkalemia (E87.5) Type 2 diabetes mellitus (E11.9) Chronic GERD (K21.9) Elevated serum creatinine (R79.89) _ Discharge Medications Albuterol (Albuterol (Eqv-Ventolin HFA) 90 mcg/inh inhalation aerosol)?2?puff(s)?Inhalation?Every 6 hours?as needed?Wheezing/Shortness of Breath Albuterol (albuterol 0.083% inhalation solution)?3?Milliliter?2.5?Milligram?Neb?Every 6 hours?as needed?Wheezing/Shortness of Breath Carvedilol (Coreg 12.5 mg oral tablet)?12.5?Milligram?1?tablet?By Mouth?2 times aday with meals Ergocalciferol (Vitamin D2 50,000 intl units (1.25 mg) oral capsule)?1?capsule?50,000?International Unit?By Mouth?Every week Famotidine (Pepcid 20 mg oral tablet)?1?tab(s)?20?Milligram?By Mouth?2 times a day Losartan (Cozaar 50 mg oral tablet)?50?Milligram?1?tablet?By Mouth?Daily metformin-sitagliptin (Janumet XR 50 mg-1000 mg oral tablet, extended release)?1?tab(s)?ByMouth?Daily at supper Pantoprazole (Protonix 20 mg oral delayed release tablet)?1?tab(s)?20?Milligram?By Mouth?Daily before breakfast Pravastatin (Pravachol 40 mg oral tablet)?1?tab(s)?40?Milligram?By Mouth?Daily atbedtime ? Medications Started None Medications Discontinued None Doses Changed None Allergies Allergies ?(Active and Proposed Allergies Only) NKA? (Severity: Unknown severity, Onset: Unknown) ? PCP Follow-Up/Heads-Up Patient admitted for hypercapnic respiratory failure. Likely in setting of NICO and obesity hypoventilation syndrome. She is schedule to undergo a polysomnogram over the weekend. Please continue to monitor patient states she will not miss her sleep study appointment. Hospital Course Neda is a 78-year-old woman with medical history of NICO, obesity, diabetes mellitus type 2 and possible obesity hypoventilation syndrome who presented to the emergency department for evaluation of altered mental status. Patient was found to have acute hypercapnic respiratory failure and [facility]. The patient was placed on BiPAP with complete resolution of her hypercapnic encephalopathy. The patient does use oxygen at home 1 to 2 L. The patient wants to go home today as she is scheduled to have a sleep study this weekend and does not want to miss her appointment. The patient is hemodynamically stable on home oxygen requirements ready for discharge with d isposition to home. ?? Metabolic encephalopathy ??(G93.41) Acute hypercapnic respiratory failure ??(J96.02) CO2 Narcosis (R06.89) Chronic hypoxic respiratory failure (J96.11) In setting of NICO and obesity hypoventilation syndrome.?? CXR with low lung volumes but no consolidation, effusions, edema or infiltrates. Patient is on home oxygen and uses 1-2 L.? Recommendations:?? - Continue home oxygen supplementation. - Advised patient to go to her sleep study as this will likely prevent further episodes of CO2 narcosis from happening.?? - Close follow up with PCP.? Chronic/Stable/Resolved problems: Chronic GERD ??(K21.9):?? Continue famotidine Hypertension ??(I10): Continue home medications Hyperlipidemia ??(E78.5): Continue pravastatin. Type 2 diabetes mellitus ??(E11.9): Continue home medications.?? Acute??kidney injury, resolved.?? Hyperkalemia ??(E87.5), resolved Objective Temperature?98.8 ?(08:10) Systolic Blood Pressure?152 ?(11:31) Diastolic Blood Pressure?83 ?(11:31) Pulse?78 ?(11:31) SpO2?97 ?(11:31) Respiratory Rate?18 ?(11:31) ?? . Physical Exam Constitutional:??Elderly in no acute??distress. Mental Status: Oriented to person, place and time. Neck: Supple, Full range of motion. Respiratory: Clear to auscultation. No wheezing, rales or rhonchi. Cardiovascular: S1 S2 regular. No murmurs, rubs or gallops. Extremities: No peripheral edema. Gastrointestinal: Abdomen soft, non-tender, non-distended. Normal bowel sounds. Genitourinary: No costovertebral angle tenderness. Neurologic: Cranial nerves II-XII grossly intact. No focal neurological deficits. Flexor plantar response. Skin: No rashes or lesions. No petechiae or purpura.?? Musculoskeletal: No cyanosis or clubbing. No gross deformities. Normal range of motion. Psychiatric: Normal mood and affect Pending Results Add On Lab Order ordered on 02/07/2024 Blood Culture #2 ordered on 02/07/2024 Hold Lavender Tube (BB) ordered on 02/07/2024 Patient Education Titles WebMD Ignite Patient Education - What Are Snoring and Sleep Apnea??? Follow-Up Appointments Added Follow Up ?Time Frame ?Comments Teresa DO , Za?1 to 2 weeks Post Discharge Care Diet: ??Diabetic Diet ?? Activity: ??As tolerated ?? Code Status: ??Full Resuscitation ?? Home Health Face to Face *Denotes mandatory monique ?? *I certify that this patient is under my care and that I or an allowed non- physician working with me had a face to face encounter with the patient on this date:??02/08/2024 16:33 ?? *The encounter with the patient was in whole, or in part, for the following medical condition, which is the primary diagnosis(es) for home health care:??Chronic hypoxic respiratory failure (J96.11) CO2 narcosis (R06.89) Acute hypercapnic respiratory failure (J96.02) Metabolic encephalopathy (G93.41) Hypertension (I10) Hyperlipidemia (E78.5) Obesity (E66.9) Hyperkalemia (E87.5) Type 2 diabetes mellitus (E11.9) Chronic GERD (K21.9) Elevated serum creatinine (R79.89) ?? *Select the indications for the discipline/s that are being arranged for this patient. Nursing (select all that apply): [_] None [X] Medication management (reconciliation, teaching)?? [X] Chronic disease management?? [_] Wound care and treatment?? [X] Home safety evaluation [_] Administer SQ/IM/IV medications?? [_] Cath care?? [_] Drain care?? [_] Trach or GT care?? Other _ Occupation Therapy (select all that apply): [_] None [X] ADL Management [X] Fall prevention training [_] Energy conservation [X] Cognitive training Other _ Physical Therapy (select all that apply): [_] None [X] Functional mobility training [X] Home exercise program to strengthen [_] Increase ROM?? [X] Falls prevention training [_] Home maintenance program for chronic disease Other _ Speech Therapy (select all that apply): [_] None [_] Swallow evaluation and training [_] Speech and language training [_] Cognitive training to process, organize, and/or recall information Other _ ? *Homebound due to (select all that apply): [X] Inability to leave home without assistance/supervision [_] Inability to ambulate without assistance [_] Pain [_] Decreased strength and endurance [_] Unsteady gait [_] Severe SOB and fatigue [_] Impaired transfers [_] Inability to negotiate stairs [_] Limited weight bearing [_] Mental status change? *Physician Signature:??Octavio Núñez MD ?? *By signing this, I certify that I have personally evaluated the patient and agree with the findings and recommendations as documented above. ? F Results Discharge Labs BACTERIOLOGY Blood Culture Results Preliminary report ()?? 02/07/2024 14:48 Blood Culture Specimen Source BLOOD ()?? 02/07/2024 14:48 Blood Culture Isolate 1 Comment ()?? 02/07/2024 14:48 ? BLOOD COUNT & DIFF WBC 6.8 k/mm3 ()?? 02/08/2024 00:07 RBC 3.34 m/mm3 (Low)?? 02/08/2024 00:07 Hgb 10.2 Gm/dL (Low)?? 02/08/2024 00:07 Hct 35.7 % ()?? 02/08/2024 00:07 MCV 106.9 femtoliters (High)?? 02/08/2024 00:07 MCH 30.5 pg ()?? 02/08/2024 00:07 MCHC 28.6 g/dL (Low)?? 02/08/2024 00:07 Platelet Count 142 k/mm3 (Low)?? 02/08/2024 00:07 RDW-SD 49.9 femtoliters (High)?? 02/08/2024 00:07 MPV 10.5 femtoliters ()?? 02/08/2024 00:07 Nucleated RBC (Automated) 0.0 #/100 WBC'S ()?? 02/08/2024 00:07 Abs. NRBC 0.0 k/mm3 ()?? 02/08/2024 00:07 Abs. Neut 4.6 k/mm3 ()?? 02/07/2024 14:48 Abs. Lymph 1.8 k/mm3 ()?? 02/07/2024 14:48 Abs. Meade 0.6 k/mm3 ()?? 02/07/2024 14:48 Abs. Eo 0.1 k/mm3 ()?? 02/07/2024 14:48 Abs. Baso 0.0 k/mm3 ()?? 02/07/2024 14:48 Neut % 63.4 % ()?? 02/07/2024 14:48 Lymph % 25.3 % ()?? 02/07/2024 14:48 Meade % 8.8 % ()?? 02/07/2024 14:48 Eos % 0.8 % ()?? 02/07/2024 14:48 Baso % 0.4 % ()?? 02/07/2024 14:48 Hemoglobin (POC) POC Cartridge 13.3 Gm/dL ()?? 02/07/2024 16:24 Hematocrit (POC) POC Cartridge 39 % ()?? 02/07/2024 16:24 Imm Gran 1.3 % ()?? 02/07/2024 14:48 Abs. Imm Gran 0.1 k/mm3 ()?? 02/07/2024 14:48 ?? BLOOD GAS pH Venous (POC) POC Cartridge 7.30 (Low)?? 02/07/2024 16:24 pCO2 Venous (POC) POC Cartridge 105.2 mm Hg (High)?? 02/07/2024 16:24 pO2 Venous (POC) POC Cartridge 15 mm Hg (Low)?? 02/07/2024 16:24 Est Bicarbonate (POC) POC Cartridge 51.2 mmol/L (High)?? 02/07/2024 16:24 % O2 Sat Venous (POC) POC Cartridge 13 ()?? 02/07/2024 16:24 Base Excess (POC) POC Cartridge 25 ()?? 02/07/2024 16:24 Specimen Type - Blood Gas VENOUS ()?? 02/07/2024 16:24 ? CARDIAC Nt-Probnp 611 pg/mL (High)?? 02/07/2024 14:48 High Sensitivity Troponin (HSTnT) 19 ng/L (High)?? 02/07/2024 19:47 ?? CHEM GENERAL Sodium 141 mmol/L ()?? 02/08/2024 00:07 Potassium 4.4 mmol/L ()?? 02/08/2024 00:07 Chloride 93 mmol/L (Low)?? 02/08/2024 00:07 Bicarbonate Level 38 mmol/L (High)?? 02/08/2024 00:07 Anion Gap 10 ()?? 02/08/2024 00:07 Sodium (POC) POC Cartridge 135 mmol/L ()?? 02/07/2024 16:24 Potassium (POC) POC Cartridge 5.6 mmol/L (High)?? 02/07/2024 16:24 Glucose Level 141 mg/dL (High)?? 02/08/2024 00:07 Glucose (POC) POC Cartridge 153 (High)?? 02/07/2024 16:24 Glucose, POC 196 mg/dL (High)?? 02/08/2024 11:27 BUN 14 mg/dL ()?? 02/08/2024 00:07 Creatinine-Blood 0.87 mg/dL ()?? 02/08/2024 00:07 Estimated GFR Creatinine 69 ML/MIN/1.73 M2 ()?? 02/08/2024 00:07 Calcium 8.3 mg/dL (Low)?? 02/08/2024 00:07 Ionized Calcium (POC) POC Cartridge 1.05 mmol/L (Low)?? 02/07/2024 16:24 Magnesium 1.7 mg/dL ()?? 02/08/2024 00:07 Protein, Total 7.0 Gm/dL ()?? 02/07/2024 14:48 Albumin 4.0 Gm/dL ()?? 02/07/2024 14:48 AG Ratio 1.3 ()?? 02/07/2024 14:48 Alkaline Phosphatase 57 units/L ()?? 02/07/2024 14:48 Lipase 11 units/L (Low)?? 02/07/2024 14:48 AST (SGOT) 10 units/L ()?? 02/07/2024 14:48 ALT (SGPT) 10 units/L ()?? 02/07/2024 14:48 Bilirubin, Total 0.3 mg/dL ()?? 02/07/2024 14:48 Lactate 0.7 mmol/L ()?? 02/07/2024 14:48 ? ENDOCRINE/TUMOR MARKER TSH 1.12 uIU/mL ()?? 02/07/2024 14:48 ? HEME OTHER Hold Blue Top SPECIMEN DISCARDED AFTER 4 HOURS. ()?? 02/07/2024 14:48 ? URINE OTHER Est Creatinine Clearance 45.55 mL/min ()?? 02/08/2024 00:59 ? VIROLOGY COVID-19 PCR Specimen Source NASAL ()?? 02/07/2024 14:25 COVID-19 PCR Result NEGATIVE ()?? 02/07/2024 14:25 ? Microbiology ?? Blood Culture?? Completed?? Source: Blood Body Site: ?? Collected Dt/Tm: 02/07/2024 14:52 Last Updated Dt/Tm: 02/08/2024 14:08 ?? Blood Culture Result?? Completed?? Source: Blood Body Site: ?? Collected Dt/Tm: 02/07/2024 14:48 Last Updated Dt/Tm: 02/08/2024 14:08 ?? COVID-19 (2019 Novel Coronavirus) PCR?? Completed?? Source: Nasal Body Site: Nose Collected Dt/Tm: 02/07/2024 13:51 Last Updated Dt/Tm: 02/07/2024 17:53 ?Patient case and plan discussed with ??Yolanda?Octavio Núñez MD ?Internal Medicine PGY-2 ? 37??minutes spent on discharge * Ligia King RN: PERFORM, SIGN, VERIFY Event Display: Case Management Discharge Plan Authored Date: Patient: NEDA TO Age: 78 years Sex: Female : 1945 Associated Diagnoses: None Author: Ligia King RN Discharge Plan Case Management Discharge Plan : Case Management Discharge Plan Data 02/08/2024 14:47 EDT Discharge Level of Care at Discharge Homehealth/VNA Discharge VNA/Hospice/Home Care [facility] [phone] Name of Agency #1 [facility] [phone] Name of Agency #1 [facility] Categories #1 Occupational Therapy, Physical Therapy, Assisted Service Comments #1 [facility] [phone]/ will call within 24-48h of discharge to resume services if you do not hear from them please call Service Categories #2 Oxygen Therapy * Eugenia Callahan RN: PERFORM Event Display: Patient Education/Instruction Authored Date: [id number] Inpatient Adult Discharge Instructions. [address] [address] Name: NEDA TO : 1945?? Visit: 02/07/2024 17:11?? Current Date: 02/08/2024 17:00 ?? Account: [id number]?? Inpatient Adult Discharge Instructions We would like to thank you for allowing us to assist you with your healthcare needs. The following includes patient education materials and information regarding your injury/illness. Our entire staffstrives to provide an excellent experience for our patients and their families. PLEASE ENSURE YOU FOLLOW-UP PER THE INSTRUCTIONS BELOW! ?? YOUR OPINION IS IMPORTANT TO US! Please complete the survey you may receive by mail or email. Your feedback will be used to make improvements to the healthcare experiences of our patients and their families. Surveys are administered by [employer] ?? If further treatment with your primary care physician or another doctor is recommended, it is important for you to keep the appointment. Call your primary care physician or return to the Emergency Department immediately if your condition worsens, fails to improve, or new symptoms develop. If you need to find a doctor, you can call [facility] Link for a referral at [phone] or toll free at [phone]) or log in to [email or web address].. ?? [facility], in keeping with [facility] guidance, no longer requires face masks for staff, patientsor visitors in most situations. Similiar to time spent indoors at other locations, there is the chance that you were exposed to repiratory viruses during your time with us (such as flu or COVID-19). If you develop symptoms concerning for a viral respiratory infection, please seek testing (and treatment if indicated) from your medical provider or home test kit. ?? You can view and manage your care through the patient portal or by using a health care noel of your choosing. [employer] is a website that allows you to securely view your medical information including your hospital discharge summary, office visit summaries, medications and follow-up visits. You can also request appointments, renew medications, and request access to your medical information using a health care noel of your choosing, or just ask a question. You can enroll at [email or web address] or register during your next office visit. You have been discharged from [facility], Patient Care Unit: D6B??. If you have any questions regarding these instructions, including results of studies pending, afteryou leave, please call us and we will be happy to assist you 09/04. [facility] Your Care Team Attending Physician Meek Guerrero MD?? Consulting Providers Meek Guerrero MD?? Discharging Providers Octavio Núñez MD Reason for Your Visit from home, said this am around 8 am she was acting funny-not baseline, this has happened before her retaining c02, 2 liters baseline,?? Your Diagnosis Acute hypercapnic respiratory failure Chronic GERD Chronic hypoxic respiratory failure CO2 narcosis Elevated serum creatinine Hyperkalemia Hyperlipidemia Hypertension Metabolic encephalopathy Obesity Type 2 diabetes mellitus Tests Performed Below is a partial list of the tests performed during your hospitalization. You may have had other tests and procedures not included in this list. Please discuss all test results with your provider. BASE EXCESS POC CARTRIDGE Basic Metabolic Panel Blood Culture Blood Culture Result CALCIUM IONIZED POC CART CBC CBC w/ Differential Comprehensive Metabolic Panel COVID-19 (2019 Novel Coronavirus) PCR ELECTROLYTES GLUCOSE POC GLUCOSE POC CARTRIDGE HEMATOCRIT POC CARTRIDGE HEMOGLOBIN POC CARTRIDGE High??Sensitivity??Troponin T Hold Blue Top Tube Lactate Level Lipase Magnesium Level POTASSIUM POC CARTRIDGE ProBNP SODIUM POC CARTRIDGE Troponin T, High Sensitivity TSH with T4 Reflex (Adults Only) VBG POC CARTRIDGE XR Chest Portable Add On Lab Order?? Blood Culture #2?? Hold Lavender Tube (BB)?? Primary Care Provider Teresa DO , Za? Advance Directive Health Care Proxy on File Yes - Health Care Proxy Discharge Vitals Temperature: 98.5 DegF Height: 161 cm Pulse Rate: 66 bpm Weight: 117.1 kg Respiratory Rate: 20 br/min Body Mass Index:??45.18 kg/m2??Critical Systolic Blood Pressure: 127 mm Hg Body surface area: 2.29 Diastolic Blood Pressure: 80 mm Hg ?? Oxygen Saturation: 100 % ?? Studies Pending All studies ordered during this hospital stay have been completed unless listed below. Please discuss all pending results with your provider listed above in these instructions. ?? Add On Lab Order?? Blood Culture #2?? Hold Lavender Tube (BB)?? What to do next Instructions From Your Doctor ?? Orders??:Diabetic Diet :As tolerated Status: ??Full Resuscitation? 02/08/24 15:39:00 EDT?? You Need to Schedule the Following Appointments Follow Up with??Za Moore DO When:??Within 1 to 2 weeks Where: [address] [place] [id number]- Discharge Medications NEDA TO :1945 Visit Date:02/07/2024 Medications: Please continue your medications until treatment is completed or stopped by your provider. Medications not listed below should be discontinued. Discuss any questions related to medications with your provider. What How Much When Instructions Next Dose Unchanged Albuterol (Albuterol (Eqv- Ventolin HFA) 90 mcg/inh inhalation aerosol) 2 puff(s) Inhalation Every 6 hours as needed for Wheezing/Shortness of Breath as needed Unchanged Albuterol (albuterol 0.083% inhalation solution) 3 Milliliter Nebulized inhalation Every 6 hours as needed for Wheezing/Shortness of Breath as needed Unchanged Carvedilol (Coreg 12.5 mg oral tablet) 1 tab(s) Oral Two times a day with meals 02/08 Unchanged Ergocalciferol (Vitamin D2 50,000 intl units (1.25 mg) oral capsule) 1 capsule Oral Every week 02/12 Unchanged Famotidine (Pepcid 20 mg oral tablet) 1 tab(s) Oral Twice a day 9pm Unchanged Losartan (Cozaar 50 mg oral tablet) 1 tab(s) Oral Daily 02/08 Unchanged metformin-sitagliptin (Janumet XR 50 mg-1000 mg oral tablet, extended release) 1 tab(s) Oral Daily at supper as prescribed Unchanged Pantoprazole (Protonix 20 mg oral delayed release tablet) 1 tab(s) Oral Daily before breakfast 02/08 Unchanged Pravastatin (Pravachol 40 mg oral tablet) 1 tab(s) Oral Daily at Bedtime 9pm Prescription Given During Visit No new medications prescribed at time of discharge.?? Laboratory Results Below is a partial list of the most recent Laboratory test results done prior to this discharge. You may have had other tests and procedures not included in this list. Please discuss all test resultswith your provider. Est Creatinine Clearance - 45.55 mL/min (02/08/2024) BASE EXCESS POC CARTRIDGE (02/07/2024) ???Base Excess (POC) POC Cartridge - 25 Basic Metabolic Panel (02/08/2024) ???Sodium - 141 mmol/L???Potassium - 4.4 mmol/L???Chloride - 93 mmol/L???Bicarbonate Level - 38 mmol/L???Anion Gap - 10???Glucose Level - 141 mg/dL???BUN - 14 mg/dL???Creatinine-Blood - 0.87 mg/dL???Estimated GFR Creatinine - 69 ML/MIN/1.73 M2???Calcium - 8.3 mg/dL Blood Culture (02/07/2024) ???Blood Culture Results - Preliminary report???Blood Culture Specimen Source - BLOOD Blood Culture Result (02/07/2024) ???Blood Culture Isolate 1 - Comment CALCIUM IONIZED POC CART (02/07/2024) ???Ionized Calcium (POC) POC Cartridge - 1.05 mmol/L CBC (02/08/2024) ???WBC - 6.8 k/mm3???RBC - 3.34 m/mm3???Hgb - 10.2 Gm/dL???Hct - 35.7 %???MCV - 106.9 femtoliters???MCH - 30.5 pg???MCHC - 28.6 g/dL???Platelet Count - 142 k/mm3???RDW-SD - 49.9 femtoliters???MPV - 10.5 femtoliters???Nucleated RBC (Automated) - 0.0 #/100 WBC'S???Abs. NRBC - 0.0 k/mm3 CBC w/ Differential (02/07/2024) ???WBC - 7.2 k/mm3???RBC - 3.51 m/mm3???Hgb - 10.8 Gm/dL???Hct - 38.3 %???MCV - 109.1 femtoliters???MCH - 30.8 pg???MCHC - 28.2 g/dL???Platelet Count - 170 k/mm3???RDW-SD - 52.9 femtoliters???MPV - 10.6 femtoliters???Nucleated RBC (Automated) - 0.3 #/100 WBC'S???Abs. NRBC - 0.0 k/mm3???Abs. Neut - 4.6 k/mm3???Abs. Lymph - 1.8 k/mm3???Abs. Meade - 0.6 k/mm3???Abs. Eo - 0.1 k/mm3???Abs. Baso - 0.0 k/mm3???Neut % - 63.4 %???Lymph % - 25.3 %???Meade % - 8.8 %???Eos % - 0.8 %???Baso % - 0.4 %???Imm Gran - 1.3 %???Abs. Imm Gran - 0.1 k/mm3 Comprehensive Metabolic Panel (02/07/2024) ???Sodium - 141 mmol/L???Potassium - 4.8 mmol/L???Chloride - 90 mmol/L???Bicarbonate Level - 43 mmol/L???Anion Gap - 8???Glucose Level - 178 mg/dL???BUN - 14 mg/dL???Creatinine-Blood - 1.22 mg/dL???Estimated GFR Creatinine - 46 ML/MIN/1.73 M2???Calcium - 8.6 mg/dL???Protein, Total - 7.0 Gm/dL???Albumin - 4.0 Gm/dL???AG Ratio - 1.3???Alkaline Phosphatase - 57 units/L???AST (SGOT) - 10 units/L???ALT (SGPT) - 10 units/L???Bilirubin, Total - 0.3 mg/dL COVID-19 (2019 Novel Coronavirus) PCR (02/07/2024) ???COVID-19 PCR Specimen Source - NASAL???COVID-19 PCR Result - NEGATIVE ELECTROLYTES (02/07/2024) ???Sodium - 144 mmol/L???Potassium - 5.8 mmol/L???Chloride - 93 mmol/L???Bicarbonate Level - 30 mmol/L???Anion Gap - 21 GLUCOSE POC (02/08/2024) ???Glucose, POC - 196 mg/dL GLUCOSE POC CARTRIDGE (02/07/2024) ???Glucose (POC) POC Cartridge - 153 HEMATOCRIT POC CARTRIDGE (02/07/2024) ???Hematocrit (POC) POC Cartridge - 39 % HEMOGLOBIN POC CARTRIDGE (02/07/2024) ???Hemoglobin (POC) POC Cartridge - 13.3 Gm/dL High??Sensitivity??Troponin T (02/07/2024) ???High Sensitivity Troponin (HSTnT) - 22 ng/L Hold Blue Top Tube (02/07/2024) ???Hold Blue Top - SPECIMEN DISCARDED AFTER 4 HOURS. Lactate Level (02/07/2024) ???Lactate - 0.7 mmol/L Lipase (02/07/2024) ???Lipase - 11 units/L Magnesium Level (02/08/2024) ???Magnesium - 1.7 mg/dL POTASSIUM POC CARTRIDGE (02/07/2024) ???Potassium (POC) POC Cartridge - 5.6 mmol/L ProBNP (02/07/2024) ???Nt-Probnp - 611 pg/mL SODIUM POC CARTRIDGE (02/07/2024) ???Sodium (POC) POC Cartridge - 135 mmol/L Troponin T, High Sensitivity (02/07/2024) ???High Sensitivity Troponin (HSTnT) - 19 ng/L TSH with T4 Reflex (Adults Only) (02/07/2024) ???TSH - 1.12 uIU/mL VBG POC CARTRIDGE (02/07/2024) ???pH Venous (POC) POC Cartridge - 7.30???pCO2 Venous (POC) POC Cartridge - 105.2 mm Hg???pO2 Venous (POC) POC Cartridge - 15 mm Hg???Est Bicarbonate (POC) POC Cartridge - 51.2 mmol/L???% O2 Sat Venous (POC) POC Cartridge - 13???Specimen Type - Blood Gas - VENOUS Allergies (NKA means No Known Allergies) NKA Problems Active Problems??(1) Severe obesity?? Education Materials Below is the list of Educational Leaflet Providered with your Discharge Instructions. [employer] Patient Education - What Are Snoring and Sleep Apnea??? Valuables and Belongings I fully understand and agree that [facility] accepts no responsibility for all my personal property including clothing, toilet articles, radios, jewelry, dentures, hearing aids, rings, money, or any other property that is in my possession or is brought to me after admission. I understand certain valuables may be placed in a hospital safe for a short period of time. I understand that the hospital is not liable for loss or damage due to accident, fire, or other natural occurrence while said property is in the safe. I accept full responsibility for any personal property that I keep with me, and will not hold the hospital responsible in case of loss or disappearance. I acknowledge that i have been encouraged to send valuables and belongings home. ?? Review of Valuable and Belonging List: With patient Date for Pt to Sign Valuables/Belongings: 02/07/24 21:00:00 ?? Other Discharge Information ? Case Management Discharge Plan?? Discharge Plan?? Discharge Agency Information?? Discharge Level of Care at Discharge: Homehealth/VNA Name of Agency #1: [facility] Discharge VNA/Hospice/Home Care: [facility] [phone] Name of Agency #1: [facility] [phone] ?? Service Categories #1: Occupational Therapy, Physical Therapy, Assisted ?? Service Comments #1: [facility] [phone]/ ?will call within 24-48h of discharge to resume services if you do not hear from them please call ?? Service Categories #2: Oxygen Therapy ?? Pulmonary Rehab Status?? Pulmonary Rehab Discharge Status?? CPAP/BiPAP Mask Type: Full CPAP/BiPAP Mask Size: Large Respiratory Rate: 20 br/min ? Common Emergency Awareness Tips IS IT A STROKE? Act FAST and Check for these signs: FACE Does the face look uneven? ARM Does one arm drift down? SPEECH Does their speech sound strange? TIME Call at any sign of stroke ?? Heart Attack Signs Chest discomfort: Most heart attacks involve discomfort in the center of the chest and lasts more than a few minutes, or goes away and comes back. It can feel like uncomfortable pressure, squeezing, fullness or pain. Discomfort in upper body: Symptoms can include pain or discomfort in one or both arms, back, neck, jaw or stomach. Shortness of breath: With or without discomfort. Other signs: Breaking out in a cold sweat, nausea, or lightheaded. Remember, MINUTES DO MATTER. If you experience any of these heart attack warning signs, call to get immediate medical attention! ?? Smoking can increase your chances of developing chronic health problems and can cause harmful effects to other family members in your house. If you smoke, you are strongly encouraged to quit. Please call [facility] Link at [phone] or [phone] Opinion ([phone]) or log in to [email or web address] for referrals to smoking cessation programs. ?? 100 Suicide & Crisis Lifeline is available 09/04 if you or someone you know needs to find a reason to keep living. By calling 624 you'll be connected to a skilled, trained counselor at a crisis center in your area. INPATIENT DISCHARGE INSTRUCTIONS SIGNATURE PAGE YOUSUF, NEDA Location:[facility] Registration Date and Time:02/07/2024 17:11 EDT Primary Care Physician: Za Moore DO, Attending Physician: Meek Guerrero MD, I NEDA TO, have received the above patient education materials/instructions and have verbalized understanding. If ambulance or transport services are being used I further acknowledge being givena choice of service. ?? If you need to contact me, please call me at this number: . Patient/Access Manager Name: Patient/Access Manager Signature: Relationship to Patient: Witness Name/Signature: Date: * Anders Mccarthy RN: PERFORM Event Display: Patient Education/Instruction Authored Date: [id number] Inpatient Adult Discharge Instructions. [place] [id number] Name: NEDA TO : 1945?? Visit: 02/07/2024 17:11?? Current Date: 02/08/2024 15:58 ?? Account: [id number]?? Inpatient Adult Discharge Instructions We would like to thank you for allowing us to assist you with your healthcare needs. The following includes patient education materials and information regarding your injury/illness. Our entire staffstrives to provide an excellent experience for our patients and their families. PLEASE ENSURE YOU FOLLOW-UP PER THE INSTRUCTIONS BELOW! ?? YOUR OPINION IS IMPORTANT TO US! Please complete the survey you may receive by mail or email. Your feedback will be used to make improvements to the healthcare experiences of our patients and their families. Surveys are administered by [employer] ?? If further treatment with your primary care physician or another doctor is recommended, it is important for you to keep the appointment. Call your primary care physician or return to the Emergency Department immediately if your condition worsens, fails to improve, or new symptoms develop. If you need to find a doctor, you can call [facility] [employer] for a referral at [phone] or toll free at [phone] or log in to [email or web address].. ?? [facility], in keeping with [facility] guidance, no longer requires face masks for staff, patientsor visitors in most situations. Similiar to time spent indoors at other locations, there is the chance that you were exposed to repiratory viruses during your time with us (such as flu or COVID-19). If you develop symptoms concerning for a viral respiratory infection, please seek testing (and treatment if indicated) from your medical provider or home test kit. ?? You can view and manage your care through the patient portal or by using a health care noel of your choosing. [employer] is a website that allows you to securely view your medical information including your hospital discharge summary, office visit summaries, medications and follow-up visits. You can also request appointments, renew medications, and request access to your medical information using a health care noel of your choosing, or just ask a question. You can enroll at [email or web address] or register during your next office visit. You have been discharged from [facility], Patient Care Unit: D6B??. If you have any questions regarding these instructions, including results of studies pending, afteryou leave, please call us and we will be happy to assist you 09/04. [facility] Your Care Team Attending Physician Meek Guerrero MD?? Consulting Providers Meek Guerrero MD?? Discharging Providers Octavio Núñez MD Reason for Your Visit from home, said this am around 8 am she was acting funny-not baseline, this has happened before her retaining c02, 2 liters baseline,?? Your Diagnosis Acute hypercapnic respiratory failure Chronic GERD Chronic hypoxic respiratory failure CO2 narcosis Elevated serum creatinine Hyperkalemia Hyperlipidemia Hypertension Metabolic encephalopathy Obesity Type 2 diabetes mellitus Tests Performed Below is a partial list of the tests performed during your hospitalization. You may have had other tests and procedures not included in this list. Please discuss all test results with your provider. BASE EXCESS POC CARTRIDGE Basic Metabolic Panel Blood Culture Blood Culture Result CALCIUM IONIZED POC CART CBC CBC w/ Differential Comprehensive Metabolic Panel COVID-19 (2019 Novel Coronavirus) PCR ELECTROLYTES GLUCOSE POC GLUCOSE POC CARTRIDGE HEMATOCRIT POC CARTRIDGE HEMOGLOBIN POC CARTRIDGE High??Sensitivity??Troponin T Hold Blue Top Tube Lactate Level Lipase Magnesium Level POTASSIUM POC CARTRIDGE ProBNP SODIUM POC CARTRIDGE Troponin T, High Sensitivity TSH with T4 Reflex (Adults Only) VBG POC CARTRIDGE XR Chest Portable Add On Lab Order?? Blood Culture #2?? Hold Lavender Tube (BB)?? Primary Care Provider Za Moore DO? Advance Directive Health Care Proxy on File Yes - Health Care Proxy Discharge Vitals Temperature: 98.8 DegF Height: 161 cm Pulse Rate: 68 bpm Weight: 117.1 kg Respiratory Rate: 19 br/min Body Mass Index:??45.18 kg/m2??Critical Systolic Blood Pressure: 138 mm Hg Body surface area: 2.29 Diastolic Blood Pressure: 76 mm Hg ?? Oxygen Saturation: 97 % ?? Studies Pending All studies ordered during this hospital stay have been completed unless listed below. Please discuss all pending results with your provider listed above in these instructions. ?? Add On Lab Order?? Blood Culture #2?? Hold Lavender Tube (BB)?? What to do next Instructions From Your Doctor ?? Orders??:Diabetic Diet :As tolerated Status: ??Full Resuscitation? 02/08/24 15:39:00 EDT?? You Need to Schedule the Following Appointments Follow Up with??Za Moore DO When:??Within 1 to 2 weeks Where: [address] [place] [id number]- Discharge Medications NEDA TO :1945 Visit Date:02/07/2024 Medications: Please continue your medications until treatment is completed or stopped by your provider. Medications not listed below should be discontinued. Discuss any questions related to medications with your provider. What How Much When Instructions Next Dose Unchanged Albuterol (Albuterol (Eqv- Ventolin HFA) 90 mcg/inh inhalation aerosol) 2 puff(s) Inhalation Every 6 hours as needed for Wheezing/Shortness of Breath Unchanged Albuterol (albuterol 0.083% inhalation solution) 3 Milliliter Nebulized inhalation Every 6 hours as needed for Wheezing/Shortness of Breath Unchanged Carvedilol (Coreg 12.5 mg oral tablet) 1 tab(s) Oral Two times a day with meals 02/07 pm Unchanged Ergocalciferol (Vitamin D2 50,000 intl units (1.25 mg) oral capsule) 1 capsule Oral Every week resume schedule Unchanged Famotidine (Pepcid 20 mg oral tablet) 1 tab(s) Oral Twice a day 02/07 pm Unchanged Losartan (Cozaar 50 mg oral tablet) 1 tab(s) Oral Daily 25 am Unchanged metformin-sitagliptin (Janumet XR 50 mg-1000 mg oral tablet, extended release) 1 tab(s) Oral Daily at supper 02/07 pm Unchanged Pantoprazole (Protonix 20 mg oral delayed release tablet) 1 tab(s) Oral Daily before breakfast 02/08 am Unchanged Pravastatin (Pravachol 40 mg oral tablet) 1 tab(s) Oral Daily at Bedtime 02/07 pm Prescription Given During Visit No new medications prescribed at time of discharge.?? Laboratory Results Below is a partial list of the most recent Laboratory test results done prior to this discharge. You may have had other tests and procedures not included in this list. Please discuss all test resultswith your provider. Est Creatinine Clearance - 45.55 mL/min (02/08/2024) BASE EXCESS POC CARTRIDGE (02/07/2024) ???Base Excess (POC) POC Cartridge - 25 Basic Metabolic Panel (02/08/2024) ???Sodium - 141 mmol/L???Potassium - 4.4 mmol/L???Chloride - 93 mmol/L???Bicarbonate Level - 38 mmol/L???Anion Gap - 10???Glucose Level - 141 mg/dL???BUN - 14 mg/dL???Creatinine-Blood - 0.87 mg/dL???Estimated GFR Creatinine - 69 ML/MIN/1.73 M2???Calcium - 8.3 mg/dL Blood Culture (02/07/2024) ???Blood Culture Results - Preliminary report???Blood Culture Specimen Source - BLOOD Blood Culture Result (02/07/2024) ???Blood Culture Isolate 1 - Comment CALCIUM IONIZED POC CART (02/07/2024) ???Ionized Calcium (POC) POC Cartridge - 1.05 mmol/L CBC (02/08/2024) ???WBC - 6.8 k/mm3???RBC - 3.34 m/mm3???Hgb - 10.2 Gm/dL???Hct - 35.7 %???MCV - 106.9 femtoliters???MCH - 30.5 pg???MCHC - 28.6 g/dL???Platelet Count - 142 k/mm3???RDW-SD - 49.9 femtoliters???MPV - 10.5 femtoliters???Nucleated RBC (Automated) - 0.0 #/100 WBC'S???Abs. NRBC - 0.0 k/mm3 CBC w/ Differential (02/07/2024) ???WBC - 7.2 k/mm3???RBC - 3.51 m/mm3???Hgb - 10.8 Gm/dL???Hct - 38.3 %???MCV - 109.1 femtoliters???MCH - 30.8 pg???MCHC - 28.2 g/dL???Platelet Count - 170 k/mm3???RDW-SD - 52.9 femtoliters???MPV - 10.6 femtoliters???Nucleated RBC (Automated) - 0.3 #/100 WBC'S???Abs. NRBC - 0.0 k/mm3???Abs. Neut - 4.6 k/mm3???Abs. Lymph - 1.8 k/mm3???Abs. Meade - 0.6 k/mm3???Abs. Eo - 0.1 k/mm3???Abs. Baso - 0.0 k/mm3???Neut % - 63.4 %???Lymph % - 25.3 %???Meade % - 8.8 %???Eos % - 0.8 %???Baso % - 0.4 %???Imm Gran - 1.3 %???Abs. Imm Gran - 0.1 k/mm3 Comprehensive Metabolic Panel (02/07/2024) ???Sodium - 141 mmol/L???Potassium - 4.8 mmol/L???Chloride - 90 mmol/L???Bicarbonate Level - 43 mmol/L???Anion Gap - 8???Glucose Level - 178 mg/dL???BUN - 14 mg/dL???Creatinine-Blood - 1.22 mg/dL???Estimated GFR Creatinine - 46 ML/MIN/1.73 M2???Calcium - 8.6 mg/dL???Protein, Total - 7.0 Gm/dL???Albumin - 4.0 Gm/dL???AG Ratio - 1.3???Alkaline Phosphatase - 57 units/L???AST (SGOT) - 10 units/L???ALT (SGPT) - 10 units/L???Bilirubin, Total - 0.3 mg/dL COVID-19 (2019 Novel Coronavirus) PCR (02/07/2024) ???COVID-19 PCR Specimen Source - NASAL???COVID-19 PCR Result - NEGATIVE ELECTROLYTES (02/07/2024) ???Sodium - 144 mmol/L???Potassium - 5.8 mmol/L???Chloride - 93 mmol/L???Bicarbonate Level - 30 mmol/L???Anion Gap - 21 GLUCOSE POC (02/08/2024) ???Glucose, POC - 196 mg/dL GLUCOSE POC CARTRIDGE (02/07/2024) ???Glucose (POC) POC Cartridge - 153 HEMATOCRIT POC CARTRIDGE (02/07/2024) ???Hematocrit (POC) POC Cartridge - 39 % HEMOGLOBIN POC CARTRIDGE (02/07/2024) ???Hemoglobin (POC) POC Cartridge - 13.3 Gm/dL High??Sensitivity??Troponin T (02/07/2024) ???High Sensitivity Troponin (HSTnT) - 22 ng/L Hold Blue Top Tube (02/07/2024) ???Hold Blue Top - SPECIMEN DISCARDED AFTER 4 HOURS. Lactate Level (02/07/2024) ???Lactate - 0.7 mmol/L Lipase (02/07/2024) ???Lipase - 11 units/L Magnesium Level (02/08/2024) ???Magnesium - 1.7 mg/dL POTASSIUM POC CARTRIDGE (02/07/2024) ???Potassium (POC) POC Cartridge - 5.6 mmol/L ProBNP (02/07/2024) ???Nt-Probnp - 611 pg/mL SODIUM POC CARTRIDGE (02/07/2024) ???Sodium (POC) POC Cartridge - 135 mmol/L Troponin T, High Sensitivity (02/07/2024) ???High Sensitivity Troponin (HSTnT) - 19 ng/L TSH with T4 Reflex (Adults Only) (02/07/2024) ???TSH - 1.12 uIU/mL VBG POC CARTRIDGE (02/07/2024) ???pH Venous (POC) POC Cartridge - 7.30???pCO2 Venous (POC) POC Cartridge - 105.2 mm Hg???pO2 Venous (POC) POC Cartridge - 15 mm Hg???Est Bicarbonate (POC) POC Cartridge - 51.2 mmol/L???% O2 Sat Venous (POC) POC Cartridge - 13???Specimen Type - Blood Gas - VENOUS Allergies (NKA means No Known Allergies) NKA Problems Active Problems??(1) Severe obesity?? Education Materials Below is the list of Educational Leaflet Providered with your Discharge Instructions. [employer] Patient Education - What Are Snoring and Sleep Apnea??? Valuables and Belongings I fully understand and agree that [facility] accepts no responsibility for all my personal property including clothing, toilet articles, radios, jewelry, dentures, hearing aids, rings, money, or any other property that is in my possession or is brought to me after admission. I understand certain valuables may be placed in a hospital safe for a short period of time. I understand that the hospital is not liable for loss or damage due to accident, fire, or other natural occurrence while said property is in the safe. I accept full responsibility for any personal property that I keep with me, and will not hold the hospital responsible in case of loss or disappearance. I acknowledge that i have been encouraged to send valuables and belongings home. ?? Review of Valuable and Belonging List: With patient Date for Pt to Sign Valuables/Belongings: 02/07/24 21:00:00 ?? Other Discharge Information ? Case Management Discharge Plan?? Discharge Plan?? Discharge Agency Information?? Discharge Level of Care at Discharge: Homehealth/VNA Name of Agency #1: [facility] Discharge VNA/Hospice/Home Care: [facility] [phone] Name of Agency #1: [facility] [phone] ?? Service Categories #1: Occupational Therapy, Physical Therapy, Assisted ?? Service Comments #1: [facility] [phone]/ ?will call within 24-48h of discharge to resume services if you do not hear from them please call ?? Service Categories #2: Oxygen Therapy ?? Pulmonary Rehab Status?? Pulmonary Rehab Discharge Status?? CPAP/BiPAP Mask Type: Full CPAP/BiPAP Mask Size: Large Respiratory Rate: 19 br/min ? Common Emergency Awareness Tips IS IT A STROKE? Act FAST and Check for these signs: FACE Does the face look uneven? ARM Does one arm drift down? SPEECH Does their speech sound strange? TIME Call at any sign of stroke ?? Heart Attack Signs Chest discomfort: Most heart attacks involve discomfort in the center of the chest and lasts more than a few minutes, or goes away and comes back. It can feel like uncomfortable pressure, squeezing, fullness or pain. Discomfort in upper body: Symptoms can include pain or discomfort in one or both arms, back, neck, jaw or stomach. Shortness of breath: With or without discomfort. Other signs: Breaking out in a cold sweat, nausea, or lightheaded. Remember, MINUTES DO MATTER. If you experience any of these heart attack warning signs, call to get immediate medical attention! ?? Smoking can increase your chances of developing chronic health problems and can cause harmful effects to other family members in your house. If you smoke, you are strongly encouraged to quit. Please call [facility] Link at [phone] or [phone] ([phone]) or log in to [email or web address] for referrals to smoking cessation programs. ?? 175 Suicide & Crisis Lifeline is available 09/04 if you or someone you know needs to find a reason to keep living. By calling 371 you'll be connected to a skilled, trained counselor at a crisis center in your area. INPATIENT DISCHARGE INSTRUCTIONS SIGNATURE PAGE NEDA TO Location:[facility] Registration Date and Time:02/07/2024 17:11 EDT Primary Care Physician: Za Moore DO, Attending Physician: Meek Guerrero MD, I NEDA TO, have received the above patient education materials/instructions and have verbalized understanding. If ambulance or transport services are being used I further acknowledge being givena choice of service. ?? If you need to contact me, please call me at this number: . Patient/Access Manager Name: Patient/Access Manager Signature: Relationship to Patient: Witness Name/Signature: Date: * Octavio Núñez MD: PERFORM Event Display: Patient Education Leaflets Authored Date: [id number] What Are Snoring and Sleep Apnea? ?? [id number] ??Qu?? son los ronquidos y la apnea obstructiva del serina??o? Si alguna vez tuvo la nariz congestionada, conoce la sensaci??n de intentar respirar a abbi??s de conductos nasales muy estrechados. [place] es lo que le ocurre a la garganta cuando ronca. Mientras duerme, las estructuras de la garganta estrechan el conducto y obstruyen parcialmente el paso del aire. [place] dificulta la respiraci??n. Y puede interrumpir el serina??o. Cuando esto ocurre, se llama apnea obstructiva del serina??o. Ronquidos Si las estructuras de la garganta son demasiado grandes o los m??sculos se relajan demasiado black el serina??o, el paso del aire puede bloquearse parcialmente por un momento. Sin embargo, en alg??n momento el aire fluye. Cuando el aire de la nariz o de la boca pasa alrededor de la shady bloqueada, las estructuras de la garganta vibran. [place] es lo que causa el krystal familiar de los ronquidos. Estesonido de ronquido puede ser lo suficientemente he chance para interrumpir el serina??o de otras personas. Cuanto m??s se bloquean las v??as respiratorias, m??s zacarias son los ronquidos. ?? Apnea obstructiva del serina??o Si las estructuras bloquean parcial o completamente la garganta, el aire no puede llegar a los pulmones. [place] se llama hipopnea (disminuci??n de la respiraci??n) o apnea (ausencia de respiraci??n). Los pulmones no reciben aire fresco. Entonces, el cerebro ordena al cuerpo que se despierte lo necesario para tensar los m??sculos y desbloquear la obstrucci??n. Y la respiraci??n comienza de nuevo, con carlos bocanada de aire que se puede escuchar. Janna proceso puede repetirse carlos y otra vez black lanoche. Puede provocar que el serina??o se fragmente y que las etapas de serina??o tylor m??s ligeras. Quiz??s no recuerde haberse despertado muchas veces black la noche. Cruz, debido al serina??o ligero, es m??s probable que sienta cansancio al d??a siguiente. La falta de serina??o y de aire fresco tambi??n pueden causar demasiado esfuerzo en los pulmones, en el coraz??n y en otros ??rganos. Lo que puede provocar problemas, chance presi??n arterial elliot, diabetes, cambios en el pensamiento, trastornos de laconducta, ataque al coraz??n o ataque cerebral. Apnea obstructiva del serina??o ?? Problemas de la nariz y la nancie??bula Los problemas en la estructura de la nariz pueden obstruir la respiraci??n. Un tabique torcido (desviado) o unos cornetes hinchados pueden empeorar los ronquidos o producir apnea. Adem??s, carlos nancie??bula retra??da puede hacer que la lengua est?? demasiado atr??s. En cynthia sarahy, es m??s probable que se obstruya la v??a respiratoria mientras duerme. ?? Last Reviewed Date: 2022 ?? [id number] [email or web address]. Todos los derechos reservados. Esta informaci??n no pretende sustituir la atenci??n m??dica profesional. S??lo costa m??dico puede diagnosticar y tratar un problema de rachel. ?? Patient Care team information Care Team Personnel Name: Za Moore DO Position: ANN-MARIE RN Member Role: PCP Address: Address: [address] [place] [id number] Name: Alize Contreras Position: BRIANS RN Member Role: Primary Care Nurse Name: Anders Mccarthy RN Position: S RN Member Role: Primary Care Nurse Name: Maame Moses RN Position: [facility] [employer]er Member Role: Primary Care Nurse Care Team Related Persons Name: CHRIST KENNEDY Address: home [address] [place] [address] Name: SETH BRAVO Address: [address] [place] [address]
== END 2024-05-06 16:09 | disposition home health service (06) | DRG 689 ==
LOC: HO.ED 14:58 → HO.EDOVER 16:27 → HO.IMC 16:54 → HO.EDOVER 17:33 → HO.IMC 05-05 00:01
PROVIDERS: Physician Assistant; Admitting Provider Physician Assistant; Emergency Provider Emergency Medicine; PCP Internal Medicine; Visit Provider Internal Medicine
DX: N39.0 Urinary tract infection, site not specified (principal); G93.41 Metabolic encephalopathy; E66.2 Morbid (severe) obesity with alveolar hypoventilation; Z68.42 Body mass index [BMI] 45.0-49.9, adult; E87.4 Mixed disorder of acid-base balance; I50.32 Chronic diastolic (congestive) heart failure; J96.12 Chronic respiratory failure with hypercapnia; R20.2 Paresthesia of skin; I27.20 Pulmonary hypertension, unspecified; E11.9 Type 2 diabetes mellitus without complications; I11.0 Hypertensive heart disease with heart failure; D53.9 Nutritional anemia, unspecified; Z99.81 Dependence on supplemental oxygen; Z79.4 Long term (current) use of insulin; Z79.899 Other long term (current) drug therapy
CPT/HCPCS: 36415; 70450; 71045; 80048; 80053; 80061; 80076; 81001; 82140; 82607; 82746; 82803; 83735; 84443; 84484; 85025; 85610; 87086; 87088; 87186; 87502; 87635; 93005; 93880; 94660; 97162; 97167; 99285; J0696; J1650; J1920

== ENCOUNTER → 2024-05-04 16:14 | Outpatient (BNV) | payer OTHER, SELFPAY | PROVIDERS: Admitting Provider Physician Assistant; Emergency Provider Emergency Medicine; Visit Provider Psychiatry & Neurology Neurology | DX: G93.41 Metabolic encephalopathy (principal); N39.0 Urinary tract infection, site not specified | CPT/HCPCS: 99222 ==

== ENCOUNTER → 2024-05-04 16:14 | Outpatient (BNV) | payer OTHER, SELFPAY | PROVIDERS: Admitting Provider Physician Assistant; Emergency Provider Emergency Medicine; Visit Provider Physician Assistant | DX: E66.2 Morbid (severe) obesity with alveolar hypoventilation (principal); Z68.41 Body mass index [BMI] 40.0-44.9, adult; N39.0 Urinary tract infection, site not specified; R20.2 Paresthesia of skin | CPT/HCPCS: 99223; 99232; 99239; G0180 ==

== ENCOUNTER 2024-05-09 14:45 | Outpatient (REF) | payer OTHER, SELFPAY ==
[2024-05-09 16:07] LABS: MANUAL DIFF FLAG NO
[2024-05-09 16:19] LABS: Basophils Percent Auto 0.3 % (0-2); Eosinophils Absolute Auto 0.2 X10*3/uL (0.0-0.4); Eosinophils Percent Auto 2.4 % (0-4); Hematocrit 37.2 % (37.0-47.0); Hemoglobin 11.2 g/dl (12.0-16.0); Imm Gran Abs Auto 0.01 X10*3/uL (0.00-0.03); Imm Gran Pct Auto 0.2 % (0.0-0.4); Lymphocytes Absolute Auto 1.7 X10*3/uL (1.2-4.9); Lymphocytes Percent Auto 26.3 % (20-40); Mean Corpuscular HGB Conc 30.1 g/dl (31.0-35.0); Mean Corpuscular Hemoglobin 29.6 pg (27.0-33.0); Mean Corpuscular Volume 98.2 fL (80.0-98.0); Mean Platelet Volume 11.4 fL (9.4-12.3); Monocytes Absolute Auto 0.7 X10*3/uL (0.1-1.2); Monocytes Percent Auto 10.9 % (2-11); Neutrophils Absolute Auto 3.8 x10*3/uL (2.0-8.3); Neutrophils Percent Auto 59.9 % (45-73); Platelet Count 148 X10*3/uL (160-400); Red Blood Count 3.79 X10*6/uL (4.20-5.50); Red Cell Distribution Width 12.9 % (11.0-16.0); White Blood Count 6.3 X10*3/uL (4.8-10.8)
[2024-05-09 17:01] LABS: Ferritin 64 ng/mL (10-250); TSH reflex Free T4 1.24 uIU/mL (0.32-4.0)
[2024-05-09 17:13] LABS: Folate 8.8 ng/mL (> or = 4.0); Vitamin B12 388 pg/mL (200-900)
== END 2024-05-09 14:46 | disposition home or self-care (01) ==
LOC: HO.HHCL 14:45
PROVIDERS: Visit Provider Registered Nurse
DX: R20.8 Other disturbances of skin sensation (principal)
CPT/HCPCS: 36415; 82306; 82607; 82728; 82746; 84443; 85025

== ENCOUNTER 2024-05-22 09:48 | Outpatient (REF) | payer OTHER, SELFPAY ==
--- NOTE | ~2024-05-22 | XR_ITS ---
EXAMINATION: XR ANKLE, RIGHT CLINICAL INFORMATION: M25.571 - Pain in right ankle and joints of right foot. COMPARISON: 04/21/2024 TECHNIQUE: Four views of the right ankle. FINDINGS: Again seen is a Nuñez B distal fibular fracture with posterolateral displacement of the distal fracture fragment by 0.8 cm. Alignment is unchanged. Osseous bridging across this displaced fracture is unchanged. There is widening of the medial clear space to 1.4 cm. There is slight resultant valgus angulation in this region. Multiple small chronic osseous fragments are noted around the talocrural joint. There is multifocal osteoarthritis in the joints of the midfoot including the Chopart, naviculocuneiform, and tarsometatarsal joints. Pes planovalgus is noted. Soft tissues are diffusely swollen with associated subcutaneous edema. Dystrophic calcifications are present within the subcutaneous fat in the distal calf anteriorly and medially. Small enthesopathic spurs are present at the Achilles tendon insertion and plantar fascial origin on the calcaneus. XR/XR ankle RT min 3V IMPRESSION: 1. Unchanged alignment of the healing Nuñez B distal fibular fracture. 2. No significant change in the persistently widened medial clear space at the talocrural joint with slight valgus angulation. 3. 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 4. Pes planovalgus. Electronically signed by: Bartolome Ennis MD 05/28/2024 02:28 PM EDT
== END 2024-05-22 09:49 | disposition home or self-care (01) ==
LOC: HO.XRAY 09:48
PROVIDERS: PCP Nurse Practitioner Family; Visit Provider Physician Assistant
DX: M17.11 Unilateral primary osteoarthritis, right knee (principal); S82.891D Other fracture of right lower leg, subsequent encounter for closed fracture with routine healing
CPT/HCPCS: 29405; 73610; 99212

== ENCOUNTER 2024-05-22 10:40 | Outpatient (AMB) | payer OTHER, SELFPAY ==
--- NOTE | 2024-05-22 10:41 | MHC.OFFVIS ---
Intake Visit Reasons: OV- RT ankle fx, XR w/ cast off Intake Note: Magalie a 79 year old female who presents today for a follow up of right ankle fracture. Cast off and xrays updated. Patient reports no pain everything is going well. Medical Leader Services: Medical Leader Offered & Declined Accompanied by: Family/Other Allergies No Known Allergies [No Known Allergies*] Allergy (Verified 05/22/24 10:43) Medication List - Last Reconciled 05/22/24 by Saleem Young PA-C albuterol sulfate 90 mcg/actuation 2 puffs inhalation Q6H PRN albuterol sulfate 2.5 mg inhalation Q6H PRN carvedilol 12.5 mg See Protocol PO BID cefuroxime axetil 250 mg PO BID ergocalciferol (vitamin D2) 1,250 mcg PO MO famotidine 20 mg PO BID furosemide 40 mg PO DAILY insulin glargine (Lantus U-100 Insulin) 20 units (0.2 mL) subcut BEDTIME insulin lispro (Admelog U-100 Insulin lispro) 5 units subcut BIDWM lancets (TRUEplus Lancets) As directed losartan 50 mg PO DAILY pantoprazole 20 mg PO DAILY@0630 pravastatin 40 mg PO BEDTIME sitagliptin phos-metformin 50-1,000 mg ER (Janumet XR) 1 tab PO DAILY HPI HPI OV- RT ankle fx, XR w/ cast off: Details: 79-year-old female who returns to the office today for a follow-up of right ankle fracture. She reports no pain in her right ankle or knee and is doing well overall. She continues to remain non weight bearing. She has no concerns today. [facility] Medical History NICO (obstructive sleep apnea) CHF (congestive heart failure) 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 indication of end stage renal disease in patient 6 to 64 years of age Lymphadenopathy Abdominal pain Bursitis of right hip Osteoarthritis of right hip Restrictive ventilatory defect Dyspnea on exertion Varicose veins of right lower extremity with inflammation Pneumonitis Pulmonary hypertension Hypertensive cardiovascular disease Acute hypoxic on chronic hypercapnic respiratory failure Acute on chronic respiratory failure with hypoxemia Obesity hypoventilation syndrome GERD (gastroesophageal reflux disease) Hypertension Diabetes mellitus COPD (chronic obstructive pulmonary disease) Surgical History S/P laparoscopic cholecystectomy (07/14/21) Family History Mother Diabetes Social History Household Members: Family Household Members Other:: cousin Housing: Apartment Do you presently have visiting nurse or other home services: No (Son CLINICAL PHARMACIST 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 patient) Alcohol intake: never Patient Tobacco Use Status: Former Tobacco user Tobacco use type: Cigarette Years Smoked: 20 Advance Directives Date on File: 02/23/24 service: No Current occupational status: unemployed and disabled Review of Systems Const All systems reviewed & are unremarkable except as noted in HPI and below Physical Exam Const General: cooperative and no acute distress Orientation/consciousness: patient oriented x3 Resp Effort & Inspection: normal respiratory effort and able to speak in complete sentences Cardio Peripheral pulses: Peripheral pulses 2+ throughout Neuro General: patient oriented x3 Extrem Other: Right ankle skin is intact. She has diffuse swelling throughout the ankle with no tenderness to palpation. No open areas along the medial or lateral malleolus. No significant bony prominences. Neurovascularly intact. Results Reviewed Results Reviewed: X-rays of the right ankle obtained in the office today show displaced distal fibular fracture with widening of the clear space and interval healing of the fibular fracture Assessment & Plan Assessment & Plan (1) Arthritis of knee, right: Code(s): M17.11 - Unilateral primary osteoarthritis, right knee Category: Medical (2) Closed right ankle fracture: Code(s): S82.891A - Other fracture of right lower leg, initial encounter for closed fracture Category: Medical Qualifiers: Encounter type: subsequent encounter Plan She will continue non weight bearing. She was placed in a short leg cast. I did again explain the plan as far as nonoperative treatment goes and that our goal is to allow the fracture to heal so that she has some stability with ambulation. However, this does has increased risk of post traumatic arthritis. She does express understanding and will see me back in 6 weeks with cast off and new x-rays, sooner if needed. Orders: Orders XR ankle RT min 3V Today M25.571 - Pain in right ankle and joints of right foot Patient Instructions: Scribed for Karlos-Augusta Young PA-C, by Dominic Abhang, medical parasitologist, on 05/22/2024 at 10:30 AM EST.? I, Saleem Young PA-C, have personally reviewed and agree with the information entered by the scribe. Coding Level of Care Code Global (19285) Diagnoses Arthritis of knee, right M17.11 Closed right ankle fracture S82.891A Encounter type: subsequent encounter
== END 2024-05-22 11:34 | disposition home or self-care (01) ==
PROVIDERS: PCP Internal Medicine; Visit Provider Physician Assistant
DX: M17.11 Unilateral primary osteoarthritis, right knee (principal); S82.891A Other fracture of right lower leg, initial encounter for closed fracture
CPT/HCPCS: 29405; 99213

== ENCOUNTER 2024-06-20 14:35 | Outpatient (REF) | payer OTHER, SELFPAY ==
[2024-06-20 15:19] LABS: Appearance Urine Cloudy; Color Urine Yellow; Glucose Urine UA Negative (Negative); Leukocyte Esterase Urine Large (3+) (Negative); Nitrite Urine Negative (Negative); PH 6.5 (5.0-9.0); UMIC TRIGGER UACC YES; Urine Blood Trace (Negative); Urine Ketones Negative (Negative); Urine Protein Negative (Neg-Trace)
[2024-06-20 15:25] LABS: Bacteria Urine 4+ (None Seen); Hyaline Casts Urine 0-2 /LPF (0-2); RBC Urine 0-2 /HPF (0-2); Squamous Epithelial Cell Urine 0-2 /HPF (0-2); UACC Culture Trigger YES; WBC Urine >50 /HPF (0-5)
[2024-06-20 17:59] LABS: Cholesterol 152 mg/dL (<200); HDL Cholesterol 50 mg/dL (>40); LDL Cholesterol Calculated 86 mg/dL (<100); Triglycerides 81 mg/dL (<150)
[2024-06-20 18:07] LABS: Creatinine Urine 35.87 mg/dL; Microalbum/Creatinine Ratio Ur 52.9 ug/mg cr (<30)
[2024-06-23 04:19] LABS: ~Hepatitis C Antibody Nonreactive (Nonreactive)
== END 2024-06-20 14:36 | disposition home or self-care (01) ==
LOC: HO.LAB 14:35
PROVIDERS: PCP Internal Medicine; Visit Provider Internal Medicine
DX: R32 Unspecified urinary incontinence (principal); E11.69 Type 2 diabetes mellitus with other specified complication; R82.79 Other abnormal findings on microbiological examination of urine
CPT/HCPCS: 36415; 80061; 81001; 82043; 82570; 86803; 87086; 87088; 87186

== ENCOUNTER 2024-07-03 12:44 | Outpatient (REF) | payer OTHER, SELFPAY ==
--- NOTE | ~2024-07-03 | XR_ITS ---
EXAMINATION: XR ANKLE, RIGHT CLINICAL INFORMATION: Pain COMPARISON: Right ankle radiograph from 05/22/2024 TECHNIQUE: Four views of the right ankle. FINDINGS: Stable alignment of chronic fracture of the distal fibula with increased osseous bridging. Stable widening of the medial ankle mortise. Pes planus. Multi joint arthritic changes. Dystrophic calcifications of the anterior medial soft tissues of the lower extremity. Plantar calcaneal heel spur. Enthesopathy at the Achilles tendon insertion site. XR/XR ankle RT min 3V IMPRESSION: 1. Stable alignment of chronic fracture of the distal fibula with increased osseous bridging. 2. Stable widening of the medial ankle mortise. 3. Pes planus. 4. Multi joint arthritic changes. 5. Dystrophic calcifications of the anterior medial soft tissues of the lower extremity. 6. Plantar calcaneal heel spur. 7. Enthesopathy at the Achilles tendon insertion site. Electronically signed by: Darryl Dey MD 07/06/2024 11:56 AM EDT
== END 2024-07-03 12:45 | disposition home or self-care (01) ==
LOC: HO.HOSX 12:44
PROVIDERS: Visit Provider Physician Assistant
DX: M25.571 Pain in right ankle and joints of right foot (principal); S82.891D Other fracture of right lower leg, subsequent encounter for closed fracture with routine healing
CPT/HCPCS: 73610; 99212

== ENCOUNTER 2024-07-03 13:07 | Outpatient (AMB) | payer OTHER, SELFPAY ==
--- NOTE | 2024-07-03 13:41 | MHC.OFFVIS ---
Intake Visit Reasons: OV RT ankle fx, XR w/ cast off Intake Note: Magalie a 79 year old female who presents today in a wheel chair for a follow up of right ankle fracture. Cast off and xrays updated. Patient reports she is doing well, she denies pain. Business Economist Services: Business Economist Offered & Declined Accompanied by: Family/Other Allergies No Known Allergies [No Known Allergies*] Allergy (Verified 07/03/24 13:42) HPI HPI OV RT ankle fx, XR w/ cast off: Details: 79-year-old female who returns to the office today for a follow-up of right ankle fracture. She states she has no pain and is doing well overall. [facility] Medical History NICO (obstructive sleep apnea) CHF (congestive heart failure) 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 indication of end stage renal disease in patient 6 to 64 years of age Lymphadenopathy Abdominal pain Bursitis of right hip Osteoarthritis of right hip Restrictive ventilatory defect Dyspnea on exertion Varicose veins of right lower extremity with inflammation Pneumonitis Pulmonary hypertension Hypertensive cardiovascular disease Acute hypoxic on chronic hypercapnic respiratory failure Acute on chronic respiratory failure with hypoxemia Obesity hypoventilation syndrome GERD (gastroesophageal reflux disease) Hypertension Diabetes mellitus COPD (chronic obstructive pulmonary disease) Surgical History S/P laparoscopic cholecystectomy (07/14/21) Family History Mother Diabetes Social History Household Members: Family Household Members Other:: cousin Housing: Apartment Do you presently have visiting nurse or other home services: No (Son [employer]IST per patient) Alcohol intake: never Patient Tobacco Use Status: Former Tobacco user Tobacco use type: Cigarette Years Smoked: 20 Advance Directives Date on File: 02/23/24 service: No Current occupational status: unemployed and disabled Review of Systems Const All systems reviewed & are unremarkable except as noted in HPI and below Physical Exam Const General: cooperative and no acute distress Orientation/consciousness: patient oriented x3 Resp Effort & Inspection: normal respiratory effort and able to speak in complete sentences Cardio Peripheral pulses: Peripheral pulses 2+ throughout Neuro General: patient oriented x3 Extrem Other: Right ankle skin is intact. Her ankle does rest with external rotation. No swelling along the ankle and no tenderness to palpation. No open areas along the medial or lateral malleolus. No significant bony prominences. Neurovascularly intact. Results Reviewed Results Reviewed: X-rays of the right ankle obtained in the office today show displaced distal fibular fracture with widening of the clear space and interval healing of the fibular fracture Assessment & Plan Assessment & Plan (1) Arthritis of knee, right: Code(s): M17.11 - Unilateral primary osteoarthritis, right knee Category: Medical (2) Closed right ankle fracture: Code(s): S82.891A - Other fracture of right lower leg, initial encounter for closed fracture Category: Medical Qualifiers: Encounter type: subsequent encounter Fracture healing: with routine healing Qualified Code(s): S82.891D - Other fracture of right lower leg, subsequent encounter for closed fracture with routine healing Plan I discussed with the patient and son the extent of fracture in the office today. I explained that there is evidence of healing of fracture however the ankle mortis itself is displaced. I explained that our goal was to treat this without surgery and hope for joint to fuse in the sense that when she applies weight it will be stable. Our plan is to transition her to a boot which was given in the office today. She will wear this with transfers as she is primarily wheelchair bound. If she has increased pain or discomfort, patient will contact the office, otherwise she will follow-up in 4 weeks with new x-rays, sooner if needed. Orders: Orders XR ankle RT min 3V Today M25.571 - Pain in right ankle and joints of right foot Patient Instructions: Scribed for Saleem Young PA-C, by Dominic Hoff medical laboratory technician, on 07/03/2024 at 1:45 PM EST.? I, Saleem Young PA-C, have personally reviewed and agree with the information entered by the scribe. Coding Level of Care Code Est Pt Level 3 (87191) Complex EM visit Add On G2211 Diagnoses Arthritis of knee, right M17.11 Closed fracture of right ankle with routine healing, subsequent encounter S82.891D Encounter type: subsequent encounter Fracture healing: with routine healing
== END 2024-07-03 14:23 | disposition home or self-care (01) ==
PROVIDERS: PCP Nurse Practitioner Family; Visit Provider Physician Assistant
DX: S82.891D Other fracture of right lower leg, subsequent encounter for closed fracture with routine healing (principal); M17.11 Unilateral primary osteoarthritis, right knee
CPT/HCPCS: 99213; G2211

== ENCOUNTER 2024-07-06 10:03 | Inpatient (IN) | payer OTHER, SELFPAY ==
[2024-07-06] VITALS (20 sets, daily range): BP systolic 131–195; BP diastolic 62–96; PULSE 62–102; RESP 19–29; TEMP 36.5–38.4; O2SAT 91–100; BMI 42.9
--- NOTE | 2024-07-06 | ECG_ITS ---
Test Reason : TACHYCARDIA Blood Pressure : / mmHG Vent. Rate : 099 BPM Atrial Rate : 099 BPM P-R Int : 200 ms QRS Dur : 086 ms QT Int : 350 ms P-R-T Axes : 041 020 052 degrees QTc Int : 449 ms Normal sinus rhythm Normal ECG When compared with ECG of 03-MAY-2024 03:56, No significant change was found Referred By: Generic ED Physician Electronically Signed By:KAMRAN DUEÑAS
--- NOTE | ~2024-07-06 | CT_ITS ---
EXAMINATION: CT ABDOMEN AND PELVIS WITHOUT CONTRAST CLINICAL INFORMATION: Abdominal pain, fever, sepsis. COMPARISON: CT abdomen/pelvis 11/02/2023. TECHNIQUE: Multidetector volumetric imaging was performed from the superior aspect of the liver through the pubic symphysis. Sagittal and coronal reformatted images were obtained on the technologist's workstation. This CT examination was performed using dose optimization techniques as appropriate, variously including the following: *Automated exposure control *Adjustment of mA and/or kV according to patient size (this includes techniques or standardized protocols for targeted exams where dose is matched to indication/reason for exam; i.e. extremities or head) *Use of iterative reconstruction technique DLP: 1116 mGy-cm FINDINGS: Limited evaluation in the absence of intravenous contrast due to motion. LUNG BASES: Bronchovascular thickening, mosaic attenuation, trace bilateral pleural effusions and bibasilar compressive atelectasis. Partially seen cardiomegaly and calcified right hilar node. LIVER, GALLBLADDER, AND BILIARY TREE: Decreased attenuation in the liver parenchyma with equivocal mild nodularity of the contour. No discrete focal lesions in this limited noncontrast examination. Cholecystectomy. Stable mild extrahepatic biliary ductal dilatation with CBD measuring up to 1 cm in diameter. PANCREAS: Limited noncontrast examination. No main ductal dilatation. No peripancreatic inflammatory changes. SPLEEN: Normal size. ADRENAL GLANDS: No adrenal mass. KIDNEYS AND URETERS: No nephrolithiasis or hydronephrosis. No significant perinephric fat stranding. BLADDER: Limited evaluation due to motion and under distention with some equivocal diffuse wall thickening. GASTROINTESTINAL TRACT: Small hiatal hernia. The stomach and the small bowel are nondilated. No right lower quadrant or pericolonic inflammatory changes. ABDOMINAL WALL: Abdominal rectus muscle diastases. Small fat-containing umbilical hernia and small fat-containing left inguinal hernia. Stable dependent anasarca with calcifications in the posterior midline wall at the level of L2-L5. LYMPH NODES: Slightly higher density than usual nonspecific pelvic lymph nodes are not significantly changed, measuring subcentimeter in short axis for example left external iliac node measuring 0.7 cm (2:62) and right common iliac lymph node measuring 0.6 cm (2:56). VASCULAR: Atherosclerotic disease. Normal caliber abdominal aorta. PELVIC VISCERA: Unchanged subserosal approximately 2 cm lesion in the anterior uterus, most likely a fibroid. Asymmetric bowing of the right levator ani with fat protrusion (6:87) suspicious for perineal hernia or facial tear. OSSEOUS STRUCTURES: Degenerative changes of the spine. No acute or aggressive appearing osseous findings. CT/CT abdomen pelvis wo IV con IMPRESSION: 1. Limited evaluation in the absence of intravenous contrast and motion. 2. Bronchovascular thickening, mosaic attenuation, trace bilateral pleural effusions and bibasilar compressive atelectasis. Correlate clinically for small airways disease and pulmonary edema. 3. Hepatic steatosis with equivocal mild nodularity of the contour raising the possibility of cirrhosis. Correlate with liver function tests. 4. Possible mild diffuse urinary bladder wall thickening, consider further evaluation with urinalysis as clinically warranted. 5. Stable biliary ductal dilatation, indeterminate in a postcholecystectomy state. 6. Asymmetric bowing of the right levator ani with mild fat protrusion suspicious for a perineal hernia or facial tear. Electronically signed by: Sudha Palomares MD 07/06/2024 02:02 PM EDT
--- NOTE | ~2024-07-06 | XR_ITS ---
EXAMINATION: XR CHEST CLINICAL INFORMATION: Shortness of breath COMPARISON: Chest radiograph from 05/03/2024 TECHNIQUE: Frontal view of the chest was obtained. FINDINGS: Bilateral lung volumes. Accentuation of pulmonary vasculature. Bibasilar atelectasis. No pneumothorax. Trachea is midline. Cardiac mediastinal silhouette is stable. No large pleural effusion. Osseous structures are intact. Soft tissues are unremarkable. XR/XR chest 1V IMPRESSION: 1. Bilateral lung volumes. 2. Accentuation of pulmonary vasculature. 3. Bibasilar atelectasis. Electronically signed by: Darryl Dey MD 07/06/2024 11:53 AM EDT
--- NOTE | 2024-07-06 10:43 | ED.GENADULT ---
HPI - General Adult General Chief complaint: General Medical Stated complaint: CHEST + ABD PAIN PER EMS Time Seen by Provider: 07/06/24 10:26 Source: patient, family ( ), EMS, old records reviewed and nutritionists Mode of arrival: EMS Limitations: no limitations History of Present Illness ED Provider: DR. Sanford HPI narrative: 79-year-old female came in for evaluation of chest pain, abdominal pain, fever, shortness of breath patient's symptoms started at 05:00, on arrival patient meets criteria for sepsis possible respiratory infection. No productive coughing, feel short of breath, upper abdominal pain. No nausea, no vomiting, no diarrhea, no rectal bleed. Patient overall is a poor historian, history was obtained from and old chart. Related Data Home Medications ?Medication ?Instructions ?Recorded ?Confirmed lancets 33 gauge (TRUEplus Lancets) #100 ea 09/20/21 05/22/24 sitagliptin phos 50 mg-metformin 1 tab PO DAILY 02/20/22 05/22/24 ER 1,000 mg tablet,extend rel 24h mp (Janumet XR) furosemide 40 mg tablet 40 mg PO DAILY 05/11/23 05/22/24 albuterol sulfate 90 mcg/actuation 2 puff inhalation Q6H PRN Wheezing 11/02/23 05/22/24 aerosol inhaler ergocalciferol (vitamin D2) 1,250 1,250 mcg PO MO 11/02/23 05/22/24 mcg (50,000 unit) capsule famotidine 20 mg tablet 20 mg PO BID 11/02/23 05/22/24 pravastatin 40 mg tablet 40 mg PO BEDTIME 11/02/23 05/22/24 albuterol sulfate 2.5 mg/3 mL 2.5 mg inhalation Q6H PRN 05/04/24 05/22/24 (0.083 %) solution for nebulization Shortness Of Breath Or Wheezing insulin lispro 100 unit/mL 5 unit subcut BIDWM 05/04/24 05/22/24 subcutaneous solution (Admelog U-100 Insulin lispro) pantoprazole 20 mg tablet,delayed 20 mg PO DAILY@0630 05/04/24 05/22/24 release Previous Rx's ?Medication ?Instructions ?Recorded carvedilol 12.5 mg tablet 12.5 mg PO BID #60 tabs 11/07/23 insulin glargine 100 unit/mL 20 unit (0.2 mL) subcut BEDTIME 11/15/23 subcutaneous solution (Lantus #10 mL U-100 Insulin) losartan 50 mg tablet 50 mg PO DAILY #30 tabs 11/15/23 cefuroxime axetil 250 mg tablet 250 mg PO BID #8 tabs 05/06/24 Allergies Allergy/AdvReac Type Severity Reaction Status Date / Time No Known Allergies Allergy Verified 07/06/24 10:26 [No Known Allergies*] Review of Systems Review of Systems: All other systems are reviewed and are negative Constitutional: Reports as per HPI and Reports no additional constitutional complaints Eyes: Reports as per HPI and Reports no additional eye complaints Reports system reviewed and no additional complaints, except as documented Cardiovascular: Reports as per HPI and Reports no additional cardiovascular complaints Respiratory: Reports as per HPI and Reports no additional respiratory complaints Gastrointestinal: Reports as per HPI and Reports no additional gastrointestinal complaints Genitourinary: Reports no additional female genitourinary complaints Musculoskeletal: Reports no additional musculoskeletal complaints Skin/Breast: Reports system reviewed and no additional complaints, except as docu Psychiatric: Reports no additional psychiatric complaints Endocrine: Reports no additional endocrine complaints Hematologic/Lymphatic: Reports no additional hematologic/lymphatic complaints Allergic/Immunologic: Reports no additional allergic/immunologic complaints Reports system reviewed and no additional complaints, except as documented and Reports Abnormal speech present [facility] Past Medical History Medical History NICO (obstructive sleep apnea) CHF (congestive heart failure) 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 indication of end stage renal disease in patient 6 to 64 years of age Lymphadenopathy Abdominal pain Bursitis of right hip Osteoarthritis of right hip Restrictive ventilatory defect Dyspnea on exertion Varicose veins of right lower extremity with inflammation Pneumonitis Pulmonary hypertension Hypertensive cardiovascular disease Acute hypoxic on chronic hypercapnic respiratory failure Acute on chronic respiratory failure with hypoxemia Obesity hypoventilation syndrome GERD (gastroesophageal reflux disease) Hypertension Diabetes mellitus COPD (chronic obstructive pulmonary disease) Surgical History S/P laparoscopic cholecystectomy (07/14/21) Family History Family History Mother Diabetes Social History Social History Household Members: Family Household Members Other:: cousin Housing: Apartment Do you presently have visiting nurse or other home services: No (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) Alcohol intake: never Patient Tobacco Use Status: Former Tobacco user Tobacco use type: Cigarette Years Smoked: 20 Smoked in Last 30 Days: No Use of substances other than those prescribed or required for medical reasons: No Advance Directives: No Advance Directives Information Provided: No Advance Directives Date on File: 02/23/24 Do you have a plan to hurt others: No Plan service: No Current occupational status: unemployed and disabled Physical Exam ED Vital Signs: Vital Signs - 24 hr 07/06/24 10:23 07/06/24 11:58 07/06/24 12:16 Temperature 101.2 F H Pulse Rate 102 H 86 Respiratory Rate 28 H 26 H 20 Blood Pressure 195/96 H 151/69 H Pulse Oximetry 93 Oxygen Delivery Method Nasal Cannula BiPAP 07/06/24 12:36 07/06/24 13:32 07/06/24 13:35 Temperature 99.3 F 99.3 F Pulse Rate Respiratory Rate 19 Blood Pressure Pulse Oximetry Oxygen Delivery Method 07/06/24 13:53 07/06/24 14:07 07/06/24 14:37 Temperature Pulse Rate 102 H 97 Respiratory Rate 29 H 25 H 25 H Blood Pressure 167/66 H 176/71 H Pulse Oximetry 95 95 Oxygen Delivery Method BiPAP BiPAP BMI result Body Mass Index 42.9 Vital signs have been reviewed and appear to be correct. Blood pressure elevated. Heart rate elevated Respiratory rate elevated. Temperature normal. Oxygen saturation normal. Appearance: lethargic, arouse to her name, Oriented X2 not to place, No acute distress. Head: Normal external exam. Normocephalic. Atraumatic. No [place] signs noted. No raccoon eyes noted Eyes: PERRLA. EOMI. Conjunctiva and sclera normal. Eyelids normal. ENT: TM's Normal. Pharynx normal. Uvula midline. Moist mucous membranes. No trismus noted. No drooling noted. No muffled voice noted. Neck: Normal inspection. Neck supple. FROM. No adenopathy. Thyroid Normal. No meningeal signs. No neck mass noted. CVS: Normal heart rate and rhythm. Heart sound normal. No murmurs noted. Pulses normal throughout. Respiratory: No respiratory distress. Painless inspiration. Breath sounds normal. diffuse expiratory wheezing with prolonged expiration, Chest nontender. No accessory muscle usage noted or decreased air movement noted. Abdomen: Soft, mild epigastric tenderness.Bowel sounds normal in all 4 quadrants. No distention noted. No organomegaly noted. No visible injury noted. Back: No CVA tenderness. Full range of motion noted. Skin: Skin warm and dry. Normal skin color. Normal skin turgor. No rashes/lesions/lacerations noted. Extremities: No lower extremity edema. Extremities exhibit normal range of motion. Extremities nontender. Neuro: Oriented X 2 Cranial nerve exam: II-XII are grossly intact No motor deficit. No sensory deficit. Reflexes normal. Course Reevaluation(s) Reevaluation #1: 79-year-old female in urosepsis patient is lethargic arouse when calling her name, her ABG is showing hypercarbia, IV hydration, empiric ceftriaxone/doxycycline, start the patient on BiPAP, serial exams. Time: 12:00 Reevaluation #2: Has been on BiPAP for almost 3 hours now, patient clinically is wide awake, repeat blood gas showing improvement of hypercarbia, UTI with sepsis received ceftriaxone. 1. Improvement of neuro exam patient is more awake responded briskly to verbal stimuli. 2. Improvement of hypercarbia on BiPAP will require BiPAP for overnight case discussed with and patient has been accepted to ICU. 3. Sepsis protocol. Time: 14:46 Medications Administered Discontinued Medications Generic Name Dose Route Start Last Admin Trade Name Freq PRN Reason Stop Dose Admin Acetaminophen 650 mg 07/06/24 10:45 07/06/24 11:23 Acetaminophen Supp 650 Mg Supp.Rect WV 07/06/24 10:46 650 mg ONCE ONE Administration Ceftriaxone Sodium 1 gm 07/06/24 10:32 07/06/24 11:22 Ceftriaxone Sodium 1 Gm Vial IVPUSH 07/06/24 10:33 1 gm ONCE ONE Administration Sodium Chloride 1,000 mls @ 500 mls/hr 07/06/24 10:32 07/06/24 13:52 Ns IV 07/06/24 12:31 Infused .Q2H ONE Infusion Doxycycline Hyclate 100 mg/ 250 mls @ 166.67 mls/hr 07/06/24 10:32 07/06/24 13:35 Sodium Chloride IV 07/06/24 12:01 Infused ONCE ONE Infusion Methylprednisolone Sodium Succinate 125 mg 07/06/24 10:52 07/06/24 11:22 Methylprednisolone Sod Succ 125 Mg/2 Ml Vial IVPUSH 07/06/24 10:53 125 mg ONCE ONE Administration Medical Decision Making Differential Diagnosis Differential Diagnoses: The differential diagnosis associated with the presentation includes ( Sepsis, UTI, pneumonia, pneumothorax, pleural effusion, colitis, diverticulitis, small-bowel obstruction, UTI, pyelonephritis, respiratory failure.) Admission/Observation Consideration of admission/observation: Escalation of care including admission/observation considered Consult Healthcare Provider Management of the patient was discussed with: Hospitalist Lab Data MDM Lab Attestation statement: I reviewed the patient's lab results. 07/06/24 10:59 07/06/24 10:59 Labs: Lab Results 07/06/24 07/06/24 07/06/24 Range/Units 10:43 10:59 11:52 WBC 11.4 H (4.8-10.8) X10*3/uL RBC 4.01 L (4.20-5.50) X10*6/uL Hgb 12.0 (12.0-16.0) g/dl Hct 38.7 (37.0-47.0) % MCV 96.5 (80.0-98.0) fL MCH 29.9 (27.0-33.0) pg MCHC 31.0 (31.0-35.0) g/dl RDW 12.2 (11.0-16.0) % Plt Count 137 L (160-400) X10*3/uL MPV 10.2 (9.4-12.3) fL Immature Gran % (Auto) 0.8 H (0.0-0.4) % Neut % (Auto) 82.1 H (45-73) % Lymph % (Auto) 6.1 L (20-40) % [place] % (Auto) 7.6 (2-11) % Eos % (Auto) 3.2 (0-4) % Baso % (Auto) 0.2 (0-2) % Lymph # (Auto) 0.7 L (1.2-4.9) X10*3/uL [place] # (Auto) 0.9 (0.1-1.2) X10*3/uL Eos # (Auto) 0.4 (0.0-0.4) X10*3/uL Baso # (Auto) 0.0 (0.0-0.2) X10*3/uL Abs Immat Gran (auto) 0.09 H (0.00-0.03) X10*3/uL Absolute Neuts (auto) 9.4 H (2.0-8.3) x10*3/uL Absolute Nucleated RBC 0.000 (0.0-0.012) X10*3/uL Nucleated RBC % (auto) 0.0 (0.0-0.2) /100WBC O2 Saturation 100.0 % ABG pH at Pt Temp 7.33 L (7.35-7.45) ABG pCO2 at Pt Temp 85 H* (32-45) mmHg ABG pO2 at Pt Temp 152 H (83-108) mmHg ABG HCO3 45 H (22-26) mmol/L ABG Base Excess (Actual) 15.4 mmol/L Sodium 138 (135-145) mmol/L Potassium 3.7 D (3.3-5.1) mmol/L Chloride 93 L (96-108) mmol/L Carbon Dioxide 35 H (22-29) mmol/L Anion Gap 14 (12-20) BUN 10 (9-16) mg/dL Creatinine 0.69 (0.5-1.4) mg/dL Estim Creat Clear Calc 85.9 Estimated GFR > 60 Random Glucose 145 H (60-115) mg/dL Lactic Acid 0.9 (0.5-2.0) mmol/L Calcium 9.6 (8.4-10.2) mg/dL Total Bilirubin 0.4 (0.0-1.0) mg/dL Direct Bilirubin 0.2 (0.0-0.5) mg/dL AST 19 (5-31) U/L ALT 19 (0-31) U/L Alkaline Phosphatase 52 (39-117) U/L Troponin I High Sens 10.0 (<3.5-17.0) ng/L Total Protein 8.0 (6.5-8.0) g/dL Albumin 4.2 (3.5-5.0) g/dL Lipase 6 L (8-78) U/L Urine Color Dark Yellow Urine Appearance Cloudy Urine pH 7.0 (5.0-9.0) Ur Specific [place] 1.020 (1.005-1.025) Urine Protein 100 (2+) H (Neg-Trace) mg/dL Urine Glucose (UA) Negative (Negative) mg/dL Urine Ketones Negative (Negative) mg/dL Urine Blood Negative (Negative) Urine Nitrite Negative (Negative) Ur Leukocyte Esterase Moderate (2+) H (Negative) Urine RBC 0-2 (0-2) /HPF Urine WBC >50 H (0-5) /HPF Ur Squamous Epith Cells 0-2 (0-2) /HPF Urine Bacteria 1+ (None Seen) Hyaline Casts 3-5 (0-2) /LPF Urine Yeast Present Influenza Type A (PCR) NEGATIVE (Negative) Influenza Type B (PCR) NEGATIVE (Negative) RSV RNA Qual (PCR) NEGATIVE (Negative) SARS-CoV-2 RNA (RT-PCR) NEGATIVE (Negative) 07/06/24 Range/Units 14:17 WBC (4.8-10.8) X10*3/uL RBC (4.20-5.50) X10*6/uL Hgb (12.0-16.0) g/dl Hct (37.0-47.0) % MCV (80.0-98.0) fL MCH (27.0-33.0) pg MCHC (31.0-35.0) g/dl RDW (11.0-16.0) % Plt Count (160-400) X10*3/uL MPV (9.4-12.3) fL Immature Gran % (Auto) (0.0-0.4) % Neut % (Auto) (45-73) % Lymph % (Auto) (20-40) % [place] % (Auto) (2-11) % Eos % (Auto) (0-4) % Baso % (Auto) (0-2) % Lymph # (Auto) (1.2-4.9) X10*3/uL [place] # (Auto) (0.1-1.2) X10*3/uL Eos # (Auto) (0.0-0.4) X10*3/uL Baso # (Auto) (0.0-0.2) X10*3/uL Abs Immat Gran (auto) (0.00-0.03) X10*3/uL Absolute Neuts (auto) (2.0-8.3) x10*3/uL Absolute Nucleated RBC (0.0-0.012) X10*3/uL Nucleated RBC % (auto) (0.0-0.2) /100WBC O2 Saturation 97.0 % ABG pH at Pt Temp 7.33 L (7.35-7.45) ABG pCO2 at Pt Temp 78 H* (32-45) mmHg ABG pO2 at Pt Temp 90 (83-108) mmHg ABG HCO3 42 H (22-26) mmol/L ABG Base Excess (Actual) 12.5 mmol/L Sodium (135-145) mmol/L Potassium (3.3-5.1) mmol/L Chloride (96-108) mmol/L Carbon Dioxide (22-29) mmol/L Anion Gap (12-20) BUN (9-16) mg/dL Creatinine (0.5-1.4) mg/dL Estim Creat Clear Calc Estimated GFR Random Glucose (60-115) mg/dL Lactic Acid (0.5-2.0) mmol/L Calcium (8.4-10.2) mg/dL Total Bilirubin (0.0-1.0) mg/dL Direct Bilirubin (0.0-0.5) mg/dL AST (5-31) U/L ALT (0-31) U/L Alkaline Phosphatase (39-117) U/L Troponin I High Sens (<3.5-17.0) ng/L Total Protein (6.5-8.0) g/dL Albumin (3.5-5.0) g/dL Lipase (8-78) U/L Urine Color Urine Appearance Urine pH (5.0-9.0) Ur Specific [place] (1.005-1.025) Urine Protein (Neg-Trace) mg/dL Urine Glucose (UA) (Negative) mg/dL Urine Ketones (Negative) mg/dL Urine Blood (Negative) Urine Nitrite (Negative) Ur Leukocyte Esterase (Negative) Urine RBC (0-2) /HPF Urine WBC (0-5) /HPF Ur Squamous Epith Cells (0-2) /HPF Urine Bacteria (None Seen) Hyaline Casts (0-2) /LPF Urine Yeast Influenza Type A (PCR) (Negative) Influenza Type B (PCR) (Negative) RSV RNA Qual (PCR) (Negative) SARS-CoV-2 RNA (RT-PCR) (Negative) ABG Data ABG Results: 7.33/85/150, repeat 7.33/78 /90%. Independent Interpretation I performed an independent interpretation of an: Plain X-Ray ( Chest:1. Bilateral lung volumes. 2. Accentuation of pulmonary vasculature. 3. Bibasilar atelectasis. ) and CT Scan ( Abdomen pelvis:1. Limited evaluation in the absence of intravenous contrast and motion. 2. Bronchovascular thickening, mosaic attenuation, trace bilateral pleural effusions and bibasilar compressive atelectasis. Correlate clinically for small airways disease and pulmonary edema. 3. Hepatic s) Radiology Impression Discussion of test interpretation with radiology: I have reviewed the radiologist's reading. Critical Care Time Critical Care Time Critical Care Time: Yes Total Critical Care Time: 60 Attestation: The patient was critically ill with a high probability of imminent or life-threatening deterioration. I spent greater than 30 minutes of discontinuous time evaluating the patient, delivering critical care at the bedside, discussing evaluating data with consultants. Critical care time does not include time spent performing separately billable procedures or teaching. Time spent performing critical care was 60 minutes. Discharge Plan Discharge Clinical Impression: Acute hypercapnic respiratory failure, Acute UTI, Sepsis Patient Disposition: Admitted As Inpatient Prescriptions: No Action Janumet XR 50-1,000 mg tablet, ER multiphase 24 hr 1 tab PO DAILY pravastatin 40 mg tablet 40 mg PO BEDTIME ergocalciferol (vitamin D2) 1,250 mcg (50,000 unit) capsule 1,250 mcg PO MO albuterol sulfate 90 mcg/actuation HFA aerosol inhaler 2 puff inhalation Q6H PRN (Reason: Wheezing) famotidine 20 mg tablet 20 mg PO BID carvedilol 12.5 mg Tablet 12.5 mg PO BID Qty: 60 0RF Protocol: Hold for SBP/HR < HOLD for SBP < : 90 HOLD for HR < : 60 insulin glargine [Lantus U-100 Insulin] 100 unit/mL Solution 20 unit subcut BEDTIME Qty: 10 0RF losartan 50 mg tablet 50 mg PO DAILY Qty: 30 0RF insulin lispro [Admelog U-100 Insulin lispro] 100 unit/mL solution 5 unit subcut BIDWM pantoprazole 20 mg tablet,delayed release (DR/EC) 20 mg PO DAILY@0630 albuterol sulfate 2.5 mg /3 mL (0.083 %) solution for nebulization 2.5 mg inhalation Q6H PRN (Reason: Shortness Of Breath Or Wheezing) cefuroxime axetil 250 mg tablet 250 mg PO BID Qty: 8 0RF (DME) lancets [TRUEplus Lancets] 33 gauge misc See Rx Instructions topical .MEDSUPPLY Qty: 100 Rx Instructions: As directed furosemide 40 mg tablet 40 mg PO DAILY Referrals: Carmine Patel MD [Primary Care Provider] - Print Language: Luxembourgish
[2024-07-06 10:53] LABS: ABG Base Excess 15.4 mmol/L; ABG HCO3 45 mmol/L (22-26); ABG pCO2 85 mmHg (32-45); ABG pH 7.33 (7.35-7.45); ABG pO2 152 mmHg (83-108)
[2024-07-06] MEDS: 0.9 % Sodium Chloride 1,000 ML 500 ML IV (10:54)
[2024-07-06 11:07] LABS: MANUAL DIFF FLAG NO
[2024-07-06 11:10] LABS: Basophils Percent Auto 0.2 % (0-2); Eosinophils Absolute Auto 0.4 X10*3/uL (0.0-0.4); Eosinophils Percent Auto 3.2 % (0-4); Hematocrit 38.7 % (37.0-47.0); Imm Gran Abs Auto 0.09 X10*3/uL (0.00-0.03); Imm Gran Pct Auto 0.8 % (0.0-0.4); Lymphocytes Absolute Auto 0.7 X10*3/uL (1.2-4.9); Lymphocytes Percent Auto 6.1 % (20-40); Mean Corpuscular Hemoglobin 29.9 pg (27.0-33.0); Mean Corpuscular Volume 96.5 fL (80.0-98.0); Mean Platelet Volume 10.2 fL (9.4-12.3); Monocytes Absolute Auto 0.9 X10*3/uL (0.1-1.2); Monocytes Percent Auto 7.6 % (2-11); Neutrophils Absolute Auto 9.4 x10*3/uL (2.0-8.3); Neutrophils Percent Auto 82.1 % (45-73); Platelet Count 137 X10*3/uL (160-400); Red Blood Count 4.01 X10*6/uL (4.20-5.50); Red Cell Distribution Width 12.2 % (11.0-16.0); White Blood Count 11.4 X10*3/uL (4.8-10.8)
[2024-07-06 11:13] LABS: ABG Refer to POC result
[2024-07-06 11:20] LABS: Lactic Acid 0.9 mmol/L (0.5-2.0)
[2024-07-06] MEDS: cefTRIAXone sodium 1 GM VIAL IVPUSH ×2 (11:22→22:50)
[2024-07-06] MEDS: Doxycycline Hyclate 100 MG in 0.9 % Sodium Chloride 250 ML 166.67 MG IV (11:22)
[2024-07-06] MEDS: methylPREDNISolone Sod Succ 125 MG/2 ML VIAL IVPUSH (11:22)
[2024-07-06] MEDS: Acetaminophen Supp 650 MG SUPP.RECT PR (11:23)
[2024-07-06 11:26] LABS: Alanine Aminotransferase 19 U/L (0-31); Albumin Level 4.2 g/dL (3.5-5.0); Alkaline Phosphatase 52 U/L (39-117); Anion Gap 14 (12-20); Aspartate Amino Transferase 19 U/L (5-31); Bilirubin Direct 0.2 mg/dL (0.0-0.5); Bilirubin Total 0.4 mg/dL (0.0-1.0); Blood Urea Nitrogen 10 mg/dL (9-16); Calcium 9.6 mg/dL (8.4-10.2); Carbon Dioxide 35 mmol/L (22-29); Chloride 93 mmol/L (96-108); Creatinine Clr Calc Pharmacy 85.9; Estimated Glomerular Filt Rate > 60; Glucose Random 145 mg/dL (60-115); Lipase 6 U/L (8-78); Potassium 3.7 mmol/L (3.3-5.1); Sodium 138 mmol/L (135-145)
--- NOTE | 2024-07-06 11:33 | PC.NURSE ---
Pt hard stick, multiple RNs at bedside trying to obtain labs and place IV. Ultrasound guided IV placed in right AC. Abx administration delayed d/t unable to obtain IV access.
--- NOTE | 2024-07-06 11:35 | PC.NURSE ---
Pt biba from home for abdominal pain and chest pain starting around 5am this morning. Upon arrival pt lethargic, tachycardic, diaphoretic, febrile, not answering questions. Per EMS pt wears 2L O2 NC at home, pt maintaining O2 sat on 2L NC 95-98%. Pt found to have 101.3 rectal temp. This RN notified MD of meeting sepsis criteria, MD Sanford at bedside. Unable to obtain IV access, multiple attempts by RNs. RN Vahe at bedside for ultrasound guided IV. Labs obtained and IV line placed. Straight cath done per provider order, 75ml of yellow/cloudy/foul smelling urine, sent to lab. Pt placed on BIPAP by respiratory, maintaining O2 sat 90%-93%. A/ox3, lethargic, sob/increased wob noted, s1 and s2 heard, Sinus tach on hospital monitor, HR- 100s-110s, abdomen soft, non-tender on palpation. Family at bedside, call goodwin within reach, all needs met at this time.
[2024-07-06 11:56] LABS: Influenza A PCR NEGATIVE (Negative); Influenza B PCR NEGATIVE (Negative); Resp Syncy Virus RNA Qual PCR NEGATIVE (Negative); SARS COV2 PCR INHOUSE NEGATIVE (Negative)
[2024-07-06 12:03] LABS: Appearance Urine Cloudy; Color Urine Dark Yellow; Glucose Urine UA Negative (Negative); Leukocyte Esterase Urine Moderate (2+) (Negative); Nitrite Urine Negative (Negative); UMIC TRIGGER UACC YES; Urine Blood Negative (Negative); Urine Ketones Negative (Negative); Urine Protein 100 (2+) mg/dL (Neg-Trace)
[2024-07-06 12:13] LABS: Bacteria Urine 1+ (None Seen); RBC Urine 0-2 /HPF (0-2); Squamous Epithelial Cell Urine 0-2 /HPF (0-2); UACC Culture Trigger YES; WBC Urine >50 /HPF (0-5)
--- NOTE | 2024-07-06 13:32 | PC.NURSE ---
MO Tylenol given per MAR. Reassessment of temp, 99.3 rectal.
[2024-07-06 14:28] LABS: ABG Base Excess 12.5 mmol/L; ABG HCO3 42 mmol/L (22-26); ABG pCO2 78 mmHg (32-45); ABG pH 7.33 (7.35-7.45); ABG pO2 90 mmHg (83-108)
--- NOTE | 2024-07-06 14:58 | PM.CCHP ---
History of Present Illness Date of Service: 07/06/24 <Marzena Orellana MD - Last Filed: 07/06/24 15:10> Chief Complaint: Dyspnea <Marzena Orellana MD - Last Filed: 07/06/24 15:10> Patient is a 79 Y F w/ hypertension, diabetes mellitus, morbid obesity, COPD, OHS, NICO on CPAP, c/b chronic mixed respiratory failure on 2L NC, pulmonary hypertension, presenting initially to emergency department on 07/06 w/ fever, dyspnea, found to be in acute on chronic hypercarbic respiratory failure and encephalopathic; in emergency department, found to have urinary tract infection; patient initiated on BiPAP w/ some improvement of respiratory failure and encephalopathy, admitted to ICU for further management; <Marzena Orellana MD - Last Filed: 07/06/24 15:10> Review of Systems Review of Systems: Yes Unobtainable due to mental status <Marzena Orellana MD - Last Filed: 07/06/24 15:10> PMFSH Past Medical History Medical History: Medical History NICO (obstructive sleep apnea) CHF (congestive heart failure) 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 indication of end stage renal disease in patient 6 to 64 years of age Lymphadenopathy Abdominal pain Bursitis of right hip Osteoarthritis of right hip Restrictive ventilatory defect Dyspnea on exertion Varicose veins of right lower extremity with inflammation Pneumonitis Pulmonary hypertension Hypertensive cardiovascular disease Acute hypoxic on chronic hypercapnic respiratory failure Acute on chronic respiratory failure with hypoxemia Obesity hypoventilation syndrome GERD (gastroesophageal reflux disease) Hypertension Diabetes mellitus COPD (chronic obstructive pulmonary disease) <Marzena Orellana MD - Last Filed: 07/06/24 15:10> Family History Family History: Family History Mother Diabetes <Marzena Orellana MD - Last Filed: 07/06/24 15:10> Surgical History Surgical History: Surgical History S/P laparoscopic cholecystectomy (07/14/21) <Marzena Orellana MD - Last Filed: 07/06/24 15:10> Social History Social History: Social History Household Members: Unknown / Unable to assess Household Members Other:: cousin Housing: Unknown / Unable to assess Do you presently have visiting nurse or other home services: No Alcohol intake: never Patient Tobacco Use Status: Former Tobacco user Tobacco use type: Cigarette Years Smoked: 20 Smoked in Last 30 Days: No Use of substances other than those prescribed or required for medical reasons: No Have you been hit, kicked, punched, or otherwise hurt by someone within the past year? If so, by whom?: No Is there a partner from a previous relationship who is making you feel unsafe now?: No Are you made to feel afraid or neglected: No Advance Directives: No Advance Directives Information Provided: No Advance Directives Date on File: 02/23/24 Do you have a plan to hurt others: No Plan Recently lost weight without trying: No How much weight loss: Not applicable Eating poorly because of decreased appetite: No Nutrition screen score: 0 Nutrition Risks: On aspiration precautions Patient : No : No Poor oral hygiene: No service: No Current occupational status: unemployed and disabled <Marzena Orellana MD - Last Filed: 07/06/24 15:10> Meds Allergies/Adverse reactions: Allergies Allergy/AdvReac Type Severity Reaction Status Date / Time No Known Allergies Allergy Verified 07/06/24 10:26 [No Known Allergies*] <Marzena Orellana MD - Last Filed: 07/06/24 15:10> Active Medications: Current Medications Albuterol/Ipratropium (Albuterol/Iprat 2.5/0.5mg 3 Ml Ampul.Neb) 3 ml INHALE Q4H PRN PRN Reason: Wheezing Ceftriaxone Sodium (Ceftriaxone Sodium 1 Gm Vial) 1 gm IVPUSH Q12H TIMOTHY Enoxaparin Sodium (Enoxaparin Sodium 40 Mg/0.4 Ml Syringe) 40 mg SUBCUT Q24H TIMOTHY Glucose (Glucose Gel 15 Gm Gel..Gram.) 15 gm PO Q15M PRN; Protocol PRN Reason: per Hypoglycemia Standing Ord. Dextrose (D10) 250 mls @ 750 mls/hr IV Q15M PRN; Protocol PRN Reason: per Hypoglycemia Standing Ord. Acetaminophen (Ofirmev) 1,000 mg in 100 mls @ 400 mls/hr IV Q6H PRN PRN Reason: Fever Stop: 07/07/24 09:14 Insulin Human Lispro (Insulin Lispro 100 Unit/Ml 3 Ml Vial) 0 unit SUBCUT Q6H [facility]; Protocol <Marzena Orellana MD - Last Filed: 07/06/24 15:10> Home medications: Home Medications ?Medication ?Instructions ?Recorded ?Confirmed ?Last Taken ?Type lancets 33 gauge (TRUEplus Lancets) #100 ea 09/20/21 05/22/24 02/19/22 History sitagliptin phos 50 mg-metformin 1 tab PO DAILY 02/20/22 07/06/24 07/05/24 History ER 1,000 mg tablet,extend rel 24h mp (Janumet XR) furosemide 40 mg tablet 40 mg PO DAILY 05/11/23 07/06/24 07/05/24 History albuterol sulfate 90 mcg/actuation 2 puff inhalation Q6H PRN Wheezing 11/02/23 07/06/24 11/01/23 History aerosol inhaler ergocalciferol (vitamin D2) 1,250 1,250 mcg PO MO@0900 11/02/23 07/06/24 11/01/23 History mcg (50,000 unit) capsule famotidine 20 mg tablet 20 mg PO BID 11/02/23 07/06/24 07/05/24 History pravastatin 40 mg tablet 40 mg PO BEDTIME 11/02/23 07/06/24 07/05/24 History albuterol sulfate 2.5 mg/3 mL 2.5 mg inhalation Q6H PRN 05/04/24 07/06/24 Unknown History (0.083 %) solution for nebulization Shortness Of Breath Or Wheezing insulin lispro 100 unit/mL 5 unit subcut BIDWM 05/04/24 07/06/24 07/05/24 History subcutaneous solution (Admelog U-100 Insulin lispro) pantoprazole 20 mg tablet,delayed 20 mg PO DAILY@0630 05/04/24 07/06/24 07/05/24 History release <Marzena Orellana MD - Last Filed: 07/06/24 15:10> Physical Exam Vital Signs: Vital Signs: Last Vital Signs Temp 99.3 F 07/06/24 13:35 Pulse 97 07/06/24 14:37 Resp 25 H 07/06/24 14:37 BP 176/71 H 07/06/24 14:37 Pulse Ox 95 07/06/24 14:37 O2 Del Method BiPAP 07/06/24 14:37 Oxygen Flow Rate 5 07/06/24 10:23 BMI result Body Mass Index 42.9 <Marzena Orellana MD - Last Filed: 07/06/24 15:10> Const: General: cooperative, no acute distress and tired appearing <Marisol Malave NP - Last Filed: 07/06/24 20:51> Nutritional Appearance: obese <Marisol Malave NP - Last Filed: 07/06/24 20:51> Orientation/consciousness: patient oriented x3 <Marisol Malave NP - Last Filed: 07/06/24 20:51> Limitations: physical limitations (Chronic fracture of right tibia) <Marisol Malave NP - Last Filed: 07/06/24 20:51> HEENT: Head: Yes normocephalic and Yes atraumatic <Marisol Malave NP - Last Filed: 07/06/24 20:51> General nose exam: Normal external nose present (Nares patent, septum midline, sinuses nontender bilaterally.) <Marisol Malave NP - Last Filed: 07/06/24 20:51> Mouth: Normal oral and palatal mucosa present (No thrush, tongue in midline, mucosa moist.) <Marisol Malave NP - Last Filed: 07/06/24 20:51> Teeth and gingiva: edentulous <Marisol Malave NP - Last Filed: 07/06/24 20:51> Throat: Yes other (No erythema, no exudate.) <Marisol Malave NP - Last Filed: 07/06/24 20:51> Neck: Neck: Yes supple (no thyromegaly, trachea midline.) <Marisol Malave NP - Last Filed: 07/06/24 20:51> Carotids: normal carotid upstroke <Marisol Malave NP - Last Filed: 07/06/24 20:51> Resp: Effort & Inspection: no respiratory distress <CLAUDIA Pinedo Last Filed: 07/06/24 20:51> Auscultation: diminished lung sounds diffuse <Marisol Malave NP - Last Filed: 07/06/24 20:51> Cardio: Jugular venous distension: no JVD <Marisol Malave NP - Last Filed: 07/06/24 20:51> Rate: regular rate <Marisol Malave NP - Last Filed: 07/06/24 20:51> Rhythm: regular rhythm <Marisol Malave NP - Last Filed: 07/06/24 20:51> Heart sounds: no gallops, no murmurs and no rubs <Marisol Malave NP - Last Filed: 07/06/24 20:51> Peripheral pulses: Peripheral pulses 2+ throughout <Marisol Malave NP - Last Filed: 07/06/24 20:51> GI: Palpation (GI): Soft to palpation (nondistended.) and nontender <Marisol Mlaave NP - Last Filed: 07/06/24 20:51> Skin: General skin exam: no rashes or lesions noted <Marisol Malave NP - Last Filed: 07/06/24 20:51> Neuro: General: patient oriented x3 <Marisol Malave NP - Last Filed: 07/06/24 20:51> Extrem: General: Yes capillary refill normal <Marisol Malave NP - Last Filed: 07/06/24 20:51> Right lower extremity: edema (right ankle) Details: non-pitting <Marisol Malave NP - Last Filed: 07/06/24 20:51> Psych: Affect: normal affect <Marisol Malave NP - Last Filed: 07/06/24 20:51> Attitude: cooperative <Marisol Malave NP - Last Filed: 07/06/24 20:51> Results Labs CBC and Chem 7: 07/06/24 17:49 07/06/24 17:49 <Marzena Orellana MD - Last Filed: 07/06/24 15:10> Labs: Laboratory Results - last 24 hr 07/06/24 07/06/24 07/06/24 10:43 10:59 11:52 MCV 96.5 MCH 29.9 MCHC 31.0 RDW 12.2 Plt Count 137 L MPV 10.2 Immature Gran % (Auto) 0.8 H Neut % (Auto) 82.1 H Lymph % (Auto) 6.1 L [place] % (Auto) 7.6 Eos % (Auto) 3.2 Baso % (Auto) 0.2 Lymph # (Auto) 0.7 L [place] # (Auto) 0.9 Eos # (Auto) 0.4 Baso # (Auto) 0.0 Abs Immat Gran (auto) 0.09 H Absolute Neuts (auto) 9.4 H Absolute Nucleated RBC 0.000 Nucleated RBC % (auto) 0.0 O2 Saturation 100.0 ABG pH at Pt Temp 7.33 L ABG pCO2 at Pt Temp 85 H* ABG pO2 at Pt Temp 152 H ABG HCO3 45 H ABG Base Excess (Actual) 15.4 Anion Gap 14 Estim Creat Clear Calc 85.9 Estimated GFR > 60 Random Glucose 145 H Lactic Acid 0.9 Calcium 9.6 Total Bilirubin 0.4 Direct Bilirubin 0.2 AST 19 ALT 19 Alkaline Phosphatase 52 Troponin I High Sens 10.0 Total Protein 8.0 Albumin 4.2 Lipase 6 L Urine Color Dark Yellow Urine Appearance Cloudy Urine pH 7.0 Ur Specific [place] 1.020 Urine Protein 100 (2+) H Urine Glucose (UA) Negative Urine Ketones Negative Urine Blood Negative Urine Nitrite Negative Ur Leukocyte Esterase Moderate (2+) H Urine RBC 0-2 Urine WBC >50 H Ur Squamous Epith Cells 0-2 Urine Bacteria 1+ Hyaline Casts 3-5 Urine Yeast Present Influenza Type A (PCR) NEGATIVE Influenza Type B (PCR) NEGATIVE RSV RNA Qual (PCR) NEGATIVE SARS-CoV-2 RNA (RT-PCR) NEGATIVE 07/06/24 14:17 MCV MCH MCHC RDW Plt Count MPV Immature Gran % (Auto) Neut % (Auto) Lymph % (Auto) [place] % (Auto) Eos % (Auto) Baso % (Auto) Lymph # (Auto) [place] # (Auto) Eos # (Auto) Baso # (Auto) Abs Immat Gran (auto) Absolute Neuts (auto) Absolute Nucleated RBC Nucleated RBC % (auto) O2 Saturation 97.0 ABG pH at Pt Temp 7.33 L ABG pCO2 at Pt Temp 78 H* ABG pO2 at Pt Temp 90 ABG HCO3 42 H ABG Base Excess (Actual) 12.5 Anion Gap Estim Creat Clear Calc Estimated GFR Random Glucose Lactic Acid Calcium Total Bilirubin Direct Bilirubin AST ALT Alkaline Phosphatase Troponin I High Sens Total Protein Albumin Lipase Urine Color Urine Appearance Urine pH Ur Specific [place] Urine Protein Urine Glucose (UA) Urine Ketones Urine Blood Urine Nitrite Ur Leukocyte Esterase Urine RBC Urine WBC Ur Squamous Epith Cells Urine Bacteria Hyaline Casts Urine Yeast Influenza Type A (PCR) Influenza Type B (PCR) RSV RNA Qual (PCR) SARS-CoV-2 RNA (RT-PCR) <Marzena Orellana MD - Last Filed: 07/06/24 15:10> Imaging Radiologist's Impressions: Impressions Chest X-Ray 07/06/24 10:33 IMPRESSION: 1. Bilateral lung volumes. 2. Accentuation of pulmonary vasculature. 3. Bibasilar atelectasis. Electronically signed by: Darryl Dey MD 07/06/2024 11:53 AM EDT RP Abdomen/Pelvis CT 07/06/24 10:42 IMPRESSION: 1. Limited evaluation in the absence of intravenous contrast and motion. 2. Bronchovascular thickening, mosaic attenuation, trace bilateral pleural effusions and bibasilar compressive atelectasis. Correlate clinically for small airways disease and pulmonary edema. 3. Hepatic steatosis with equivocal mild nodularity of the contour raising the possibility of cirrhosis. Correlate with liver function tests. 4. Possible mild diffuse urinary bladder wall thickening, consider further evaluation with urinalysis as clinically warranted. 5. Stable biliary ductal dilatation, indeterminate in a postcholecystectomy state. 6. Asymmetric bowing of the right levator ani with mild fat protrusion suspicious for a perineal hernia or facial tear. Electronically signed by: Sudha Palomares MD 07/06/2024 02:02 PM EDT RP <Marzena Orellana MD - Last Filed: 07/06/24 15:10> Assessment and Plan (1) UTI (urinary tract infection): Status: Acute <Marzena Orellana MD - Last Filed: 07/06/24 15:10> (2) COPD (chronic obstructive pulmonary disease): Status: Acute <Marzena Orellana MD - Last Filed: 07/06/24 15:10> (3) Acute respiratory failure: Status: Acute <Marzena Orellana MD - Last Filed: 07/06/24 15:10> (4) NICO (obstructive sleep apnea): Status: Acute <Marzena Orellana MD - Last Filed: 07/06/24 15:10> (5) Obesity hypoventilation syndrome: Status: Acute <Marzena Orellana MD - Last Filed: 07/06/24 15:10> Patient is a 79 Y F w/ hypertension, diabetes mellitus, morbid obesity, COPD, OHS, NICO on CPAP, c/b chronic mixed respiratory failure on 2L NC, pulmonary hypertension, presenting initially to emergency department on 07/06 w/ fever, dyspnea, found to be in acute on chronic mixed respiratory failure and encephalopathic; in emergency department, found to have urinary tract infection; patient initiated on BiPAP w/ some improvement of respiratory failure and encephalopathy, admitted to ICU for further management N: encephalopathy, likely toxic-metabolic, improving CV: no acute issues R: acute on chronic mixed respiratory failure, BiPAP, wean as tolerated; c/f COPD exacerbation, duonebs, steroids, empiric antibiotics GI: NPO while on BiPAP; otherwise diabetic/cardiac diet : urinary tract infection, ceftriaxone H: no acute issues ID: urinary tract infection, ceftriaxone; azithromycin in setting of COPD exacerbation E: diabetes mellitus, insulin sliding scale P: no acute issues <Marzena Orellana MD - Last Filed: 07/06/24 15:10>
[2024-07-06] MEDS: Azithromycin 500 MG in 0.9 % Sodium Chloride 250 ML 125 MG IV (15:21)
[2024-07-06] MEDS: Enoxaparin Sodium 40 MG/0.4 ML SYRINGE SUBCUT (15:22)
[2024-07-06] MEDS: Furosemide 20 MG/2 ML VIAL IVPUSH (15:22)
--- NOTE | 2024-07-06 16:37 | PHA.MEDREC ---
Addendum entered by Raquel Laureano RPh 07/06/24 16:43: MED REC REVIEWED BY [facility] Original Note: Pharmacy Consult ? Medication Reconciliation Pharmacy has completed the medication reconciliation. Patient poor historian. Spoke to patient's son Andres to confirm meds. Per patient's son, patient takes all meds in medbox and takes insulin lispro 5 unit BIDWM and Lantus 20 units bedtime.
[2024-07-06 17:04] LABS: Glucose, Whole Blood 167 mg/dL (60-115)
[2024-07-06 17:54] LABS: VBG Base Excess 16.1 mmol/L; VBG HCO3 41 mmol/L (22-26); VBG pCO2 52 mmHg; VBG pH 7.51 (7.32-7.43); VBG pO2 66 mmHg
[2024-07-06 18:00] LABS: Glucose, Whole Blood 178 mg/dL (60-115)
[2024-07-06 18:10] LABS: Basophils Percent Auto 0.2 % (0-2); Eosinophils Absolute Auto 0.1 X10*3/uL (0.0-0.4); Eosinophils Percent Auto 0.5 % (0-4); Hematocrit 36.9 % (37.0-47.0); Hemoglobin 11.6 g/dl (12.0-16.0); Imm Gran Abs Auto 0.05 X10*3/uL (0.00-0.03); Imm Gran Pct Auto 0.5 % (0.0-0.4); Lymphocytes Absolute Auto 0.6 X10*3/uL (1.2-4.9); Lymphocytes Percent Auto 6.4 % (20-40); MANUAL DIFF FLAG SCAN; Mean Corpuscular HGB Conc 31.4 g/dl (31.0-35.0); Mean Corpuscular Hemoglobin 30.3 pg (27.0-33.0); Mean Corpuscular Volume 96.3 fL (80.0-98.0); Mean Platelet Volume 10.6 fL (9.4-12.3); Monocytes Absolute Auto 0.2 X10*3/uL (0.1-1.2); Monocytes Percent Auto 1.9 % (2-11); Neutrophils Absolute Auto 8.6 x10*3/uL (2.0-8.3); Neutrophils Percent Auto 90.5 % (45-73); PLT CLUMP 1; Red Blood Count 3.83 X10*6/uL (4.20-5.50); Red Cell Distribution Width 12.2 % (11.0-16.0); SCAN SMEAR FLAG 1
[2024-07-06 18:15] LABS: Anion Gap 13 (12-20); Blood Urea Nitrogen 10 mg/dL (9-16); Carbon Dioxide 35 mmol/L (22-29); Chloride 96 mmol/L (96-108); Creatinine Clr Calc Pharmacy 87.1; Estimated Glomerular Filt Rate > 60; Glucose Random 178 mg/dL (60-115); Magnesium 1.6 mg/dL (1.6-2.6); Phosphorus 3.5 mg/dL (2.7-4.5); Potassium 3.8 mmol/L (3.3-5.1); Sodium 140 mmol/L (135-145)
[2024-07-06 18:26] LABS: Platelet Count 127 X10*3/uL (160-400); SLIDE REVIEW VERIFIED; White Blood Count 9.5 X10*3/uL (4.8-10.8)
[2024-07-06] MEDS: Insulin Lispro 100 UNIT/ML 3 ML VIAL SUBCUT ×2 (18:40→23:47)
[2024-07-06] MEDS: Furosemide 40 MG/4 ML VIAL 20 MG IVPUSH (18:40)
[2024-07-06] MEDS: Magnesium Sulfate/D5W 1 GM/100 ML PIGGYBACK IV (18:44)
[2024-07-06 18:58] LABS: Venous Blood Gas Refer to POC result
[2024-07-06 19:01] LABS: ABG Refer to POC result
[2024-07-06 23:38] LABS: Glucose, Whole Blood 168 mg/dL (60-115)
[2024-07-07] VITALS (20 sets, daily range): BP systolic 132–192; BP diastolic 59–105; PULSE 61–90; RESP 14–22; TEMP 36.1–36.9; O2SAT 89–98; BMI 41.5
[2024-07-07] MEDS: Acetaminophen 325 MG TABLET 650 MG PO (01:14)
[2024-07-07 05:13] LABS: Glucose, Whole Blood 155 mg/dL (60-115)
[2024-07-07 05:15] LABS: VBG Base Excess 15.7 mmol/L; VBG HCO3 45 mmol/L (22-26); VBG pCO2 80 mmHg; VBG pH 7.35 (7.32-7.43); VBG pO2 50 mmHg
[2024-07-07 05:20] LABS: MANUAL DIFF FLAG NO
[2024-07-07 05:25] LABS: Basophils Percent Auto 0.3 % (0-2); Eosinophils Percent Auto 0.3 % (0-4); Hematocrit 37.9 % (37.0-47.0); Hemoglobin 11.7 g/dl (12.0-16.0); Imm Gran Abs Auto 0.03 X10*3/uL (0.00-0.03); Imm Gran Pct Auto 0.4 % (0.0-0.4); Lymphocytes Absolute Auto 0.7 X10*3/uL (1.2-4.9); Lymphocytes Percent Auto 10.8 % (20-40); Mean Corpuscular HGB Conc 30.9 g/dl (31.0-35.0); Mean Corpuscular Hemoglobin 29.9 pg (27.0-33.0); Mean Corpuscular Volume 96.9 fL (80.0-98.0); Mean Platelet Volume 10.7 fL (9.4-12.3); Monocytes Absolute Auto 0.1 X10*3/uL (0.1-1.2); Monocytes Percent Auto 1.8 % (2-11); Neutrophils Absolute Auto 5.9 x10*3/uL (2.0-8.3); Neutrophils Percent Auto 86.4 % (45-73); Platelet Count 130 X10*3/uL (160-400); Red Blood Count 3.91 X10*6/uL (4.20-5.50); Red Cell Distribution Width 12.1 % (11.0-16.0); White Blood Count 6.8 X10*3/uL (4.8-10.8)
[2024-07-07 05:31] LABS: Venous Blood Gas Refer to POC result
[2024-07-07 06:03] LABS: Albumin Level 3.7 g/dL (3.5-5.0); Anion Gap 13 (12-20); Blood Urea Nitrogen 14 mg/dL (9-16); Calcium 9.4 mg/dL (8.4-10.2); Carbon Dioxide 40 mmol/L (22-29); Chloride 93 mmol/L (96-108); Creatinine Clr Calc Pharmacy 80.7; Estimated Glomerular Filt Rate > 60; Glucose Random 169 mg/dL (60-115); Magnesium 1.8 mg/dL (1.6-2.6); Phosphorus 3.8 mg/dL (2.7-4.5); Potassium 3.8 mmol/L (3.3-5.1); Sodium 142 mmol/L (135-145)
[2024-07-07] MEDS: Furosemide 40 MG/4 ML VIAL 20 MG IVPUSH ×2 (08:03→16:56)
[2024-07-07] MEDS: methylPREDNISolone Sod Succ 125 MG/2 ML VIAL 40 MG IVPUSH (08:37)
[2024-07-07] MEDS: acetaZOLAMIDE sodium 500 MG VIAL 250 MG IVPUSH ×2 (08:37→20:58)
[2024-07-07 08:49] LABS: Glucose, Whole Blood 172 mg/dL (60-115)
[2024-07-07] MEDS: cefTRIAXone sodium 1 GM VIAL IVPUSH ×2 (10:03→23:10)
--- NOTE | 2024-07-07 10:29 | PM.CCPN ---
Subjective Subjective Date of Service: 07/07/24 Interval History: 79-year-old lady with underlying hypertension, diabetes mellitus, obesity, NICO/ohs on CPAP, COPD, pulmonary hypertension, and diastolic dysfunction admitted on 07/06/2024 with UTI and acute on chronic hypercapnic respiratory failure requiring BiPAP support. Patient was treated with ceftriaxone for underlying UTI and diuresis for CHF exacerbation with significant improvement, titrated off BiPAP overnight. Critical Care Time (minutes): 0 Physical Exam Vital Signs: Vital Signs: Last Vital Signs Temp 97.3 F 07/07/24 07:57 Pulse 86 07/07/24 10:00 Resp 20 07/07/24 10:00 BP 145/67 H 07/07/24 10:00 Pulse Ox 93 07/07/24 10:00 O2 Del Method Nasal Cannula 07/07/24 10:00 O2 Flow Rate 0.5 07/07/24 10:00 FiO2 28 07/07/24 07:57 Oxygen Flow Rate 5 07/06/24 10:23 BMI result Body Mass Index 41.5 Const: General: no acute distress, alert and awake Eyes: Sclerae: sclerae normal EOM: EOMs intact bilaterally Neck: Neck: Yes no lymphadenopathy, Yes trachea midline and Yes supple Resp: Effort & Inspection: normal respiratory effort and no respiratory distress Auscultation: clear to auscultation bilaterally Cardio: Rate: regular rate Rhythm: regular rhythm Heart sounds: no gallops, no murmurs and no rubs GI: Palpation (GI): Soft to palpation and Other GI palpation findings present ( Nontender) Auscultation: normal bowel sounds Extrem: General: Yes no pedal edema, No clubbing and No cyanosis Objective Data Labs 07/07/24 05:00 07/07/24 05:04 Labs: Laboratory Results - last 24 hr 07/06/24 07/06/24 07/06/24 10:43 10:59 11:52 WBC 11.4 H RBC 4.01 L Hgb 12.0 Hct 38.7 MCV 96.5 MCH 29.9 MCHC 31.0 RDW 12.2 Plt Count 137 L MPV 10.2 Immature Gran % (Auto) 0.8 H Neut % (Auto) 82.1 H Lymph % (Auto) 6.1 L [place] % (Auto) 7.6 Eos % (Auto) 3.2 Baso % (Auto) 0.2 Lymph # (Auto) 0.7 L [place] # (Auto) 0.9 Eos # (Auto) 0.4 Baso # (Auto) 0.0 Abs Immat Gran (auto) 0.09 H Absolute Neuts (auto) 9.4 H Absolute Nucleated RBC 0.000 Nucleated RBC % (auto) 0.0 Smear Tech's Comments O2 Saturation 100.0 ABG pH at Pt Temp 7.33 L ABG pCO2 at Pt Temp 85 H* ABG pO2 at Pt Temp 152 H ABG HCO3 45 H ABG Base Excess (Actual) 15.4 VBG pH VBG pCO2 VBG pO2 VBG HCO3 VBG O2 Saturation VBG Base Excess Sodium 138 Potassium 3.7 D Chloride 93 L Carbon Dioxide 35 H Anion Gap 14 BUN 10 Creatinine 0.69 Estim Creat Clear Calc 85.9 Estimated GFR > 60 POC Glucose Random Glucose 145 H Lactic Acid 0.9 Calcium 9.6 Phosphorus Magnesium Total Bilirubin 0.4 Direct Bilirubin 0.2 AST 19 ALT 19 Alkaline Phosphatase 52 Troponin I High Sens 10.0 Total Protein 8.0 Albumin 4.2 Lipase 6 L Urine Color Dark Yellow Urine Appearance Cloudy Urine pH 7.0 Ur Specific [place] 1.020 Urine Protein 100 (2+) H Urine Glucose (UA) Negative Urine Ketones Negative Urine Blood Negative Urine Nitrite Negative Ur Leukocyte Esterase Moderate (2+) H Urine RBC 0-2 Urine WBC >50 H Ur Squamous Epith Cells 0-2 Urine Bacteria 1+ Hyaline Casts 3-5 Urine Yeast Present Influenza Type A (PCR) NEGATIVE Influenza Type B (PCR) NEGATIVE RSV RNA Qual (PCR) NEGATIVE SARS-CoV-2 RNA (RT-PCR) NEGATIVE 07/06/24 07/06/24 07/06/24 14:17 17:00 17:44 WBC RBC Hgb Hct MCV MCH MCHC RDW Plt Count MPV Immature Gran % (Auto) Neut % (Auto) Lymph % (Auto) [place] % (Auto) Eos % (Auto) Baso % (Auto) Lymph # (Auto) [place] # (Auto) Eos # (Auto) Baso # (Auto) Abs Immat Gran (auto) Absolute Neuts (auto) Absolute Nucleated RBC Nucleated RBC % (auto) Smear Tech's Comments O2 Saturation 97.0 ABG pH at Pt Temp 7.33 L ABG pCO2 at Pt Temp 78 H* ABG pO2 at Pt Temp 90 ABG HCO3 42 H ABG Base Excess (Actual) 12.5 VBG pH 7.51 H VBG pCO2 52 VBG pO2 66 VBG HCO3 41 H VBG O2 Saturation 94.0 VBG Base Excess 16.1 Sodium Potassium Chloride Carbon Dioxide Anion Gap BUN Creatinine Estim Creat Clear Calc Estimated GFR POC Glucose 167 H Random Glucose Lactic Acid Calcium Phosphorus Magnesium Total Bilirubin Direct Bilirubin AST ALT Alkaline Phosphatase Troponin I High Sens Total Protein Albumin Lipase Urine Color Urine Appearance Urine pH Ur Specific [place] Urine Protein Urine Glucose (UA) Urine Ketones Urine Blood Urine Nitrite Ur Leukocyte Esterase Urine RBC Urine WBC Ur Squamous Epith Cells Urine Bacteria Hyaline Casts Urine Yeast Influenza Type A (PCR) Influenza Type B (PCR) RSV RNA Qual (PCR) SARS-CoV-2 RNA (RT-PCR) 07/06/24 07/06/24 07/06/24 17:49 17:57 23:34 WBC 9.5 RBC 3.83 L Hgb 11.6 L Hct 36.9 L MCV 96.3 MCH 30.3 MCHC 31.4 RDW 12.2 Plt Count 127 L MPV 10.6 Immature Gran % (Auto) 0.5 H Neut % (Auto) 90.5 H Lymph % (Auto) 6.4 L [place] % (Auto) 1.9 L Eos % (Auto) 0.5 Baso % (Auto) 0.2 Lymph # (Auto) 0.6 L [place] # (Auto) 0.2 Eos # (Auto) 0.1 Baso # (Auto) 0.0 Abs Immat Gran (auto) 0.05 H Absolute Neuts (auto) 8.6 H Absolute Nucleated RBC 0.000 Nucleated RBC % (auto) 0.0 Smear Tech's Comments VERIFIED O2 Saturation ABG pH at Pt Temp ABG pCO2 at Pt Temp ABG pO2 at Pt Temp ABG HCO3 ABG Base Excess (Actual) VBG pH VBG pCO2 VBG pO2 VBG HCO3 VBG O2 Saturation VBG Base Excess Sodium 140 Potassium 3.8 Chloride 96 Carbon Dioxide 35 H Anion Gap 13 BUN 10 Creatinine 0.68 Estim Creat Clear Calc 87.1 Estimated GFR > 60 POC Glucose 178 H 168 H Random Glucose 178 H Lactic Acid Calcium 9.0 D Phosphorus 3.5 Magnesium 1.6 Total Bilirubin Direct Bilirubin AST ALT Alkaline Phosphatase Troponin I High Sens Total Protein Albumin Lipase Urine Color Urine Appearance Urine pH Ur Specific [place] Urine Protein Urine Glucose (UA) Urine Ketones Urine Blood Urine Nitrite Ur Leukocyte Esterase Urine RBC Urine WBC Ur Squamous Epith Cells Urine Bacteria Hyaline Casts Urine Yeast Influenza Type A (PCR) Influenza Type B (PCR) RSV RNA Qual (PCR) SARS-CoV-2 RNA (RT-PCR) 07/07/24 07/07/24 07/07/24 05:00 05:04 05:10 WBC 6.8 RBC 3.91 L Hgb 11.7 L Hct 37.9 MCV 96.9 MCH 29.9 MCHC 30.9 L RDW 12.1 Plt Count 130 L MPV 10.7 Immature Gran % (Auto) 0.4 Neut % (Auto) 86.4 H Lymph % (Auto) 10.8 L [place] % (Auto) 1.8 L Eos % (Auto) 0.3 Baso % (Auto) 0.3 Lymph # (Auto) 0.7 L [place] # (Auto) 0.1 Eos # (Auto) 0.0 Baso # (Auto) 0.0 Abs Immat Gran (auto) 0.03 Absolute Neuts (auto) 5.9 Absolute Nucleated RBC 0.000 Nucleated RBC % (auto) 0.0 Smear Tech's Comments O2 Saturation ABG pH at Pt Temp ABG pCO2 at Pt Temp ABG pO2 at Pt Temp ABG HCO3 ABG Base Excess (Actual) VBG pH 7.35 VBG pCO2 80 VBG pO2 50 VBG HCO3 45 H VBG O2 Saturation 74.0 VBG Base Excess 15.7 Sodium 142 Potassium 3.8 Chloride 93 L Carbon Dioxide 40 H* Anion Gap 13 BUN 14 Creatinine 0.72 Estim Creat Clear Calc 80.7 Estimated GFR > 60 POC Glucose 155 H Random Glucose 169 H Lactic Acid Calcium 9.4 Phosphorus 3.8 Magnesium 1.8 Total Bilirubin Direct Bilirubin AST ALT Alkaline Phosphatase Troponin I High Sens Total Protein Albumin 3.7 Lipase Urine Color Urine Appearance Urine pH Ur Specific [place] Urine Protein Urine Glucose (UA) Urine Ketones Urine Blood Urine Nitrite Ur Leukocyte Esterase Urine RBC Urine WBC Ur Squamous Epith Cells Urine Bacteria Hyaline Casts Urine Yeast Influenza Type A (PCR) Influenza Type B (PCR) RSV RNA Qual (PCR) SARS-CoV-2 RNA (RT-PCR) 07/07/24 08:46 WBC RBC Hgb Hct MCV MCH MCHC RDW Plt Count MPV Immature Gran % (Auto) Neut % (Auto) Lymph % (Auto) [place] % (Auto) Eos % (Auto) Baso % (Auto) Lymph # (Auto) [place] # (Auto) Eos # (Auto) Baso # (Auto) Abs Immat Gran (auto) Absolute Neuts (auto) Absolute Nucleated RBC Nucleated RBC % (auto) Smear Tech's Comments O2 Saturation ABG pH at Pt Temp ABG pCO2 at Pt Temp ABG pO2 at Pt Temp ABG HCO3 ABG Base Excess (Actual) VBG pH VBG pCO2 VBG pO2 VBG HCO3 VBG O2 Saturation VBG Base Excess Sodium Potassium Chloride Carbon Dioxide Anion Gap BUN Creatinine Estim Creat Clear Calc Estimated GFR POC Glucose 172 H Random Glucose Lactic Acid Calcium Phosphorus Magnesium Total Bilirubin Direct Bilirubin AST ALT Alkaline Phosphatase Troponin I High Sens Total Protein Albumin Lipase Urine Color Urine Appearance Urine pH Ur Specific [place] Urine Protein Urine Glucose (UA) Urine Ketones Urine Blood Urine Nitrite Ur Leukocyte Esterase Urine RBC Urine WBC Ur Squamous Epith Cells Urine Bacteria Hyaline Casts Urine Yeast Influenza Type A (PCR) Influenza Type B (PCR) RSV RNA Qual (PCR) SARS-CoV-2 RNA (RT-PCR) Progress Note: A&P Assessment and plan (1) Acute respiratory failure: Status: Acute (2) COPD (chronic obstructive pulmonary disease): Status: Acute (3) Acute UTI: Status: Acute (4) Class 3 obesity with alveolar hypoventilation and body mass index (BMI) of 40.0 to 44.9 in adult: Status: Acute (5) CHF (congestive heart failure): Status: Acute Plan Assessment: 79-year-old lady admitted with acute UTI and acute on chronic hypercapnic respiratory failure requiring BiPAP support. Plan: Neuro: Metabolic encephalopathy secondary to hypercapnia, resolved with BiPAP support. Cardiac: No acute issues. Underlying diastolic dysfunction. Pulmonary: Acute on chronic hypercapnic respiratory failure briefly requiring BiPAP support, now titrated off. Underlying NICO/ohs, continue nocturnal CPAP. Underlying COPD. Renal: No acute issues. Endo: No acute issues. Underlying diabetes mellitus. GI: No acute issues. ID: Acute UTI with prior history of Klebsiella UTI ceftriaxone susceptible. Continue ceftriaxone. Heme/Onc: No acute issues. Psych: No acute issues. Miscellaneous: No acute issues. Prophylaxis: Lovenox Diet: Diabetic Quality Stroke Does the patient have a stroke diagnosis?: No VTE Prior VTE?: No VTE Risk Level:: Medical - moderate - high VTE Device Contraindication: N/A - Device Ordered VTE Drug Contraindication: N/A - Med Ordered
[2024-07-07 12:03] LABS: Adenovirus PCR Not Detected (Not Detect.); Bordetella parapertussis PCR Not Detected (Not Detect.); Bordetella pertussis PCR Not Detected (Not Detect.); Chlamydia pneumoniae PCR Not Detected (Not Detect.); Coronavirus 229E PCR Not Detected (Not Detect.); Coronavirus HKU1 PCR Not Detected (Not Detect.); Coronavirus NL63 PCR Not Detected (Not Detect.); Coronavirus OC43 PCR Not Detected (Not Detect.); Human metapneumovirus PCR Not Detected (Not Detect.); Influenza A PCR Not Detected (Not Detect.); Influenza B PCR Not Detected (Not Detect.); Mycoplasma pneumoniae PCR Not Detected (Not Detect.); Parainfluenza 1 PCR Not Detected (Not Detect.); Parainfluenza 2 PCR Not Detected (Not Detect.); Parainfluenza 3 PCR Not Detected (Not Detect.); Parainfluenza 4 PCR Not Detected (Not Detect.); RSV PCR Not Detected (Not Detect.); Rhino/Enterovirus PCR Not Detected (Not Detect.)
[2024-07-07] MEDS: Insulin Lispro 100 UNIT/ML 3 ML VIAL SUBCUT ×2 (12:04→16:57)
[2024-07-07 12:06] LABS: Glucose, Whole Blood 343 mg/dL (60-115)
[2024-07-07 12:12] LABS: SARS-CoV-2 PCR Not Detected (Not Detect.)
[2024-07-07 12:15] LABS: VBG Base Excess 15.3 mmol/L; VBG HCO3 41 mmol/L (22-26); VBG pCO2 58 mmHg; VBG pH 7.46 (7.32-7.43); VBG pO2 62 mmHg
[2024-07-07 12:20] LABS: Venous Blood Gas Refer to POC result
[2024-07-07] MEDS: Losartan Potassium 50 MG TABLET PO (12:30)
--- NOTE | 2024-07-07 12:47 | MHC.CM.PN ---
Met with pt to discuss d/c planning needs: pt defers to her son Andres. Per Andres, pt resides w/family and has RN/PT visits from [facility] and 20 hrs of [facility] care per week. She has a walker, w/c and family assists with transportation. Andres requests BLS transport to home d/t deconditioning. HCP on file and verified, IMM in chart. No additional services anticipated at this time. CM to follow for changes in d/c plan.
[2024-07-07] MEDS: Enoxaparin Sodium 40 MG/0.4 ML SYRINGE SUBCUT (14:53)
[2024-07-07 16:24] LABS: Glucose, Whole Blood 330 mg/dL (60-115)
--- NOTE | 2024-07-07 19:18 | PM.EVENT ---
Event Note Date of Service: 07/15/24 Event Note: Patient was admitted to the ICU for acute on chronic hypoxemic respiratory failure-please see ICU note for further details. Patient received BiPAP Patient says shortness of breath seems to be improving Denies any abdominal pain Physical exam and assessment plan in as ICU note Time Spent With Patient Time: Total time managing care of this patient today ____ minutes.
[2024-07-07] MEDS: Famotidine 20 MG TABLET PO (20:59)
[2024-07-07] MEDS: Pravastatin Sodium 40 MG TABLET PO (20:59)
[2024-07-07] MEDS: carvediloL 12.5 MG TABLET PO (20:59)
[2024-07-07 21:23] LABS: Glucose, Whole Blood 287 mg/dL (60-115)
[2024-07-07] MEDS: Insulin Glargine,Hum.rec.anlog 100 UNIT/ML 10 ML VIAL 10 UNIT SUBCUT (21:24)
[2024-07-08] VITALS (11 sets, daily range): BP systolic 154–186; BP diastolic 58–82; PULSE 56–73; RESP 17–29; TEMP 36.2–36.8; O2SAT 93–99; BMI 40.9
[2024-07-08 00:26] LABS: Glucose, Whole Blood 236 mg/dL (60-115)
[2024-07-08 05:46] LABS: Venous Blood Gas Refer to POC result
[2024-07-08 05:47] LABS: MANUAL DIFF FLAG NO
[2024-07-08 05:48] LABS: VBG Base Excess 13.3 mmol/L; VBG HCO3 42 mmol/L (22-26); VBG pCO2 79 mmHg; VBG pH 7.33 (7.32-7.43); VBG pO2 52 mmHg
[2024-07-08 05:48] LABS: Basophils Percent Auto 0.1 % (0-2); Eosinophils Absolute Auto 0.1 X10*3/uL (0.0-0.4); Eosinophils Percent Auto 0.7 % (0-4); Hematocrit 36.3 % (37.0-47.0); Hemoglobin 11.4 g/dl (12.0-16.0); Imm Gran Abs Auto 0.04 X10*3/uL (0.00-0.03); Imm Gran Pct Auto 0.3 % (0.0-0.4); Lymphocytes Absolute Auto 1.2 X10*3/uL (1.2-4.9); Lymphocytes Percent Auto 10.2 % (20-40); Mean Corpuscular HGB Conc 31.4 g/dl (31.0-35.0); Mean Corpuscular Hemoglobin 30.1 pg (27.0-33.0); Mean Corpuscular Volume 95.8 fL (80.0-98.0); Monocytes Absolute Auto 0.7 X10*3/uL (0.1-1.2); Monocytes Percent Auto 6.5 % (2-11); Neutrophils Absolute Auto 9.4 x10*3/uL (2.0-8.3); Neutrophils Percent Auto 82.2 % (45-73); Platelet Count 152 X10*3/uL (160-400); Red Blood Count 3.79 X10*6/uL (4.20-5.50); Red Cell Distribution Width 12.2 % (11.0-16.0); White Blood Count 11.5 X10*3/uL (4.8-10.8)
[2024-07-08 06:05] LABS: Albumin Level 3.7 g/dL (3.5-5.0); Anion Gap 13 (12-20); Blood Urea Nitrogen 27 mg/dL (9-16); Calcium 9.2 mg/dL (8.4-10.2); Carbon Dioxide 35 mmol/L (22-29); Chloride 96 mmol/L (96-108); Creatinine Clr Calc Pharmacy 72.9; Estimated Glomerular Filt Rate > 60; Glucose Random 214 mg/dL (60-115); Sodium 140 mmol/L (135-145)
[2024-07-08 06:10] LABS: Glucose, Whole Blood 190 mg/dL (60-115)
[2024-07-08 07:21] LABS: Glucose, Whole Blood 178 mg/dL (60-115)
[2024-07-08] MEDS: Furosemide 40 MG/4 ML VIAL 20 MG IVPUSH (08:36)
[2024-07-08] MEDS: Losartan Potassium 50 MG TABLET PO (08:36)
[2024-07-08] MEDS: acetaZOLAMIDE sodium 500 MG VIAL 250 MG IVPUSH (08:36)
[2024-07-08] MEDS: Famotidine 20 MG TABLET PO ×2 (08:37→20:35)
[2024-07-08] MEDS: carvediloL 12.5 MG TABLET PO ×2 (08:37→20:35)
[2024-07-08 11:19] LABS: Glucose, Whole Blood 258 mg/dL (60-115)
[2024-07-08] MEDS: Insulin Lispro 100 UNIT/ML 3 ML VIAL SUBCUT ×3 (12:06→20:34)
[2024-07-08] MEDS: cefTRIAXone sodium 1 GM VIAL IVPUSH ×2 (12:06→22:26)
--- NOTE | 2024-07-08 14:20 | P.PNIM_ITS ---
Subjective Subjective Date of Service: 07/08/24 Interval History: Being followed for UTI Denies fever, no chills, denies urinary symptoms of urgency, no frequency, denies shortness of breath, has a right displaced distal fibular fracture, patient is primarily wheelchair bound. Review of Systems All other symptoms are reviewed and are negative Physical Exam 2 Vital Signs: Vital Signs: Last Vital Signs Temp 98.3 F 07/08/24 12:47 Pulse 61 07/08/24 12:47 Resp 20 07/08/24 12:47 BP 160/80 H 07/08/24 12:12 Pulse Ox 94 07/08/24 12:47 O2 Del Method Room Air 07/08/24 12:47 O2 Flow Rate 0.5 07/07/24 11:00 FiO2 28 07/08/24 04:00 Oxygen Flow Rate 5 07/06/24 10:23 BMI result Body Mass Index 40.9 Const: Other: General resting comfortably in no acute distress. Neck no JVD. CVS regular rate rhythm, Respiratory lungs clear to auscultation, no respiratory distress, no wheeze, no rhonchi. Gastrointestinal abdomen soft, non tender, bowel sounds audible, no guarding , no rigidity. Extremities right lower extremity in orthopedic boot Neuro non focal Skin no rash Psych appropriate affect Objective Data Active Medications Acetaminophen (Acetaminophen 325 Mg Tablet) 650 mg PO Q6H PRN PRN Reason: Headache Last Admin: 07/07/24 01:14 Dose: 650 mg Documented By: RADHA Acetazolamide (Acetazolamide Sodium 500 Mg Vial) 250 mg IVPUSH BID [facility] Last Admin: 07/08/24 08:36 Dose: 250 mg Documented By: LOPEZ Albuterol/Ipratropium (Albuterol/Iprat 2.5/0.5mg 3 Ml Ampul.Neb) 3 ml INHALE Q4H PRN PRN Reason: Wheezing Carvedilol (Carvedilol 12.5 Mg Tablet) 12.5 mg PO BID [facility]; Protocol Last Admin: 07/08/24 08:37 Dose: 12.5 mg Documented By: LOPEZ Ceftriaxone Sodium (Ceftriaxone Sodium 1 Gm Vial) 1 gm IVPUSH Q12H [facility] Last Admin: 07/08/24 12:06 Dose: 1 gm Documented By: LOPEZ Enoxaparin Sodium (Enoxaparin Sodium 40 Mg/0.4 Ml Syringe) 40 mg SUBCUT Q24H [facility] Last Admin: 07/07/24 14:53 Dose: 40 mg Documented By: MAVIS Famotidine (Famotidine 20 Mg Tablet) 20 mg PO BID [facility] Last Admin: 07/08/24 08:37 Dose: 20 mg Documented By: LOPEZ Furosemide (Furosemide 40 Mg/4 Ml Vial) 20 mg IVPUSH BID@0900,1800 [facility]; Protocol Last Admin: 07/08/24 08:36 Dose: 20 mg Documented By: LOPEZ Glucose (Glucose Gel 15 Gm Gel..Gram.) 15 gm PO Q15M PRN; Protocol PRN Reason: per Hypoglycemia Standing Ord. Dextrose (D10) 250 mls @ 750 mls/hr IV Q15M PRN; Protocol PRN Reason: per Hypoglycemia Standing Ord. Insulin Glargine (Insulin Glargine,Hum.Rec.Anlog 100 Unit/Ml 10 Ml Vial) 10 unit SUBCUT BEDTIME [facility] Last Admin: 07/07/24 21:24 Dose: 10 unit Documented By: CARLOS Insulin Human Lispro (Insulin Lispro 100 Unit/Ml 3 Ml Vial) 0 unit SUBCUT QIDACHS [facility]; Protocol Last Admin: 07/08/24 12:06 Dose: 6 unit Documented By: LOPEZ Losartan Potassium (Losartan Potassium 50 Mg Tablet) 50 mg PO DAILY [facility]; Protocol Last Admin: 07/08/24 08:36 Dose: 50 mg Documented By: LOPEZ Omeprazole (Omeprazole 20 Mg Capsule.) 20 mg PO DAILY@0630 [facility] Last Admin: 07/08/24 06:30 Dose: Not Given Documented By: CARLOS Non-Admin Reason: Patient Asleep Pravastatin Sodium (Pravastatin Sodium 40 Mg Tablet) 40 mg PO BEDTIME [facility] Last Admin: 07/07/24 20:59 Dose: 40 mg Documented By: CARLOS Labs 07/08/24 05:40 07/08/24 05:40 Labs: Laboratory Results - last 24 hr 07/07/24 07/07/24 07/08/24 16:00 21:15 00:23 MCV MCH MCHC RDW Plt Count MPV Immature Gran % (Auto) Neut % (Auto) Lymph % (Auto) [place] % (Auto) Eos % (Auto) Baso % (Auto) Lymph # (Auto) [place] # (Auto) Eos # (Auto) Baso # (Auto) Abs Immat Gran (auto) Absolute Neuts (auto) Absolute Nucleated RBC Nucleated RBC % (auto) VBG pH VBG pCO2 VBG pO2 VBG HCO3 VBG O2 Saturation VBG Base Excess Anion Gap Estim Creat Clear Calc Estimated GFR POC Glucose 330 H 287 H 236 H Random Glucose Calcium Phosphorus Magnesium Albumin 07/08/24 07/08/24 07/08/24 05:40 05:45 06:06 MCV 95.8 MCH 30.1 MCHC 31.4 RDW 12.2 Plt Count 152 L MPV 11.0 Immature Gran % (Auto) 0.3 Neut % (Auto) 82.2 H Lymph % (Auto) 10.2 L [place] % (Auto) 6.5 Eos % (Auto) 0.7 Baso % (Auto) 0.1 Lymph # (Auto) 1.2 [place] # (Auto) 0.7 Eos # (Auto) 0.1 Baso # (Auto) 0.0 Abs Immat Gran (auto) 0.04 H Absolute Neuts (auto) 9.4 H Absolute Nucleated RBC 0.000 Nucleated RBC % (auto) 0.0 VBG pH 7.33 VBG pCO2 79 VBG pO2 52 VBG HCO3 42 H VBG O2 Saturation 78.0 VBG Base Excess 13.3 Anion Gap 13 Estim Creat Clear Calc 72.9 Estimated GFR > 60 POC Glucose 190 H Random Glucose 214 H Calcium 9.2 Phosphorus 3.0 Magnesium 2.0 Albumin 3.7 07/08/24 07/08/24 07:14 11:15 MCV MCH MCHC RDW Plt Count MPV Immature Gran % (Auto) Neut % (Auto) Lymph % (Auto) [place] % (Auto) Eos % (Auto) Baso % (Auto) Lymph # (Auto) [place] # (Auto) Eos # (Auto) Baso # (Auto) Abs Immat Gran (auto) Absolute Neuts (auto) Absolute Nucleated RBC Nucleated RBC % (auto) VBG pH VBG pCO2 VBG pO2 VBG HCO3 VBG O2 Saturation VBG Base Excess Anion Gap Estim Creat Clear Calc Estimated GFR POC Glucose 178 H 258 H Random Glucose Calcium Phosphorus Magnesium Albumin Microbiology Microbiology Results: Microbiology 07/06/24 11:23 Blood Culture - Preliminary Blood - Venous No growth after 48 hours. 07/06/24 10:59 Blood Culture - Preliminary Blood - Venous No growth after 48 hours. 07/06/24 Unknown Urine Culture - Final Urine Catheterized - Straight Catheter Klebsiella pneumoniae Assessment and Plan (1) COPD (chronic obstructive pulmonary disease): Status: Acute (2) Acute respiratory failure: Status: Acute (3) Acute UTI: Status: Acute Plan 79-year-old lady with underlying hypertension, diabetes mellitus, obesity, NICO/ohs on CPAP, COPD, pulmonary hypertension, and diastolic dysfunction admitted on 07/06/2024 with UTI and acute on chronic hypercapnic respiratory failure requiring BiPAP support. Patient was treated with ceftriaxone for underlying UTI and diuresis for CHF exacerbation with significant improvement, titrated off BiPAP overnight and transitioned to telemetry on 07/07. 79-year-old lady admitted with acute UTI and acute on chronic hypercapnic respiratory failure requiring BiPAP support. Acute toxic Metabolic encephalopathy secondary to hypercapnia, and UTI resolved with BiPAP support and antibiotics. Acute on chronic hypercapnic respiratory failure briefly requiring BiPAP support, now titrated off. Underlying NICO/ohs, continue nocturnal CPAP. Acute on chronic CHF due to diastolic dysfunction. Continue Coreg, Cozaar, on IV Lasix and iv acetazolamide, appears euvolemic will DC IV Lasix and transitioned to by mouth acetazolamide Diabetes mellitus. Elevated blood sugars, now trending down since steroids discontinued Continue basal and bolus insulin, monitor blood sugar closely Acute UTI with prior history of Klebsiella UTI ceftriaxone susceptible. Blood cultures x2 negative times 48 hours urine culture grew Klebsiella, Continue ceftriaxone. Right distal fibular fracture outpatient follow-up with Orthopedic surgery. Morbid obesity recommend low-calorie diet. Prophylaxis: Lovenox In my clinical judgment patient requires continued inpatient hospitalization for management of acute UTI and CHF requiring IV antibiotic and diuretics treatment can not be provided in less acute setting. Quality Stroke Does the patient have a stroke diagnosis?: No VTE Prior VTE?: No VTE Risk Level:: Medical - moderate - high VTE Device Contraindication: N/A - Device Ordered VTE Drug Contraindication: N/A - Med Ordered
[2024-07-08 16:12] LABS: Glucose, Whole Blood 203 mg/dL (60-115)
[2024-07-08] MEDS: Enoxaparin Sodium 40 MG/0.4 ML SYRINGE SUBCUT (16:48)
[2024-07-08 20:30] LABS: Glucose, Whole Blood 205 mg/dL (60-115)
[2024-07-08] MEDS: Insulin Glargine,Hum.rec.anlog 100 UNIT/ML 10 ML VIAL 10 UNIT SUBCUT (20:34)
[2024-07-08] MEDS: Acetaminophen 325 MG TABLET 650 MG PO (20:35)
[2024-07-08] MEDS: Pravastatin Sodium 40 MG TABLET PO (20:35)
[2024-07-08] MEDS: acetaZOLAMIDE 250 MG TABLET PO (20:35)
[2024-07-09] VITALS (8 sets, daily range): BP systolic 119–126; BP diastolic 57–69; PULSE 65–80; RESP 18–22; TEMP 36.1–36.9; O2SAT 78–99; BMI 39.8
[2024-07-09 07:04] LABS: Anion Gap 9 (12-20); Blood Urea Nitrogen 27 mg/dL (9-16); Calcium 9.6 mg/dL (8.4-10.2); Carbon Dioxide 38 mmol/L (22-29); Chloride 98 mmol/L (96-108); Creatinine Clr Calc Pharmacy 71.8; Estimated Glomerular Filt Rate > 60; Glucose Random 166 mg/dL (60-115); Potassium 3.8 mmol/L (3.3-5.1); Sodium 141 mmol/L (135-145)
[2024-07-09 07:05] LABS: Hematocrit 37.7 % (37.0-47.0); Hemoglobin 11.8 g/dl (12.0-16.0); Mean Corpuscular HGB Conc 31.3 g/dl (31.0-35.0); Mean Corpuscular Hemoglobin 30.3 pg (27.0-33.0); Mean Corpuscular Volume 96.9 fL (80.0-98.0); Mean Platelet Volume 10.9 fL (9.4-12.3); Platelet Count 166 X10*3/uL (160-400); Red Blood Count 3.89 X10*6/uL (4.20-5.50); Red Cell Distribution Width 12.2 % (11.0-16.0)
[2024-07-09 08:09] LABS: Glucose, Whole Blood 167 mg/dL (60-115)
[2024-07-09] MEDS: Insulin Lispro 100 UNIT/ML 3 ML VIAL SUBCUT ×3 (10:50→17:04)
[2024-07-09] MEDS: Famotidine 20 MG TABLET PO (10:50)
[2024-07-09] MEDS: carvediloL 12.5 MG TABLET PO (10:50)
[2024-07-09] MEDS: cefTRIAXone sodium 1 GM VIAL IVPUSH (10:50)
[2024-07-09] MEDS: acetaZOLAMIDE 250 MG TABLET PO (10:51)
[2024-07-09] MEDS: Losartan Potassium 50 MG TABLET PO (10:51)
[2024-07-09 11:24] LABS: Glucose, Whole Blood 220 mg/dL (60-115)
--- NOTE | 2024-07-09 11:35 | PM.DS ---
DS: Providers Provider Date of Service: 07/09/24 Date of admission: 07/06/24 14:45 Primary care physician: Carmine Patel MD DS: Diagnosis Discharge Diagnosis (1) COPD (chronic obstructive pulmonary disease): Status: Acute (2) Acute respiratory failure: Status: Acute (3) Acute UTI: Status: Acute DS: Summary Hospital Course Hospital Course: Date of Service: 07/06/24 Chief Complaint: Dyspnea Patient is a 79 Y F w/ hypertension, diabetes mellitus, morbid obesity, COPD, OHS, NICO on CPAP, c/b chronic mixed respiratory failure on 2L NC, pulmonary hypertension, presenting initially to emergency department on 07/06 w/ fever, dyspnea, found to be in acute on chronic hypercarbic respiratory failure and encephalopathic; in emergency department, found to have urinary tract infection; patient initiated on BiPAP w/ some improvement of respiratory failure and encephalopathy, admitted to ICU for further management; Hospital course: 79-year-old lady with underlying hypertension, diabetes mellitus, obesity, NICO/ohs on CPAP, COPD, pulmonary hypertension, and diastolic dysfunction admitted on 07/06/2024 with UTI and acute on chronic hypercapnic respiratory failure requiring BiPAP support. Patient was treated with ceftriaxone for underlying UTI and diuresis for CHF exacerbation with significant improvement, titrated off BiPAP overnight and transitioned to telemetry on 07/07. 79-year-old lady admitted with sepsis due to acute UTI and acute on chronic hypercapnic respiratory failure requiring BiPAP support therefore admitted to ICU for stabilization and transferred to telemetry on 07/07 And treated for following medical issues. Acute toxic Metabolic encephalopathy secondary to hypercapnia, and UTI resolved with BiPAP support and antibiotics. Acute on chronic hypercapnic respiratory failure briefly requiring BiPAP support, now titrated off, likely due to Underlying NICO/ohs, exacerbated by infection, continue nocturnal CPAP. Acute on chronic CHF due to diastolic dysfunction, resolved with intravenous acetazolamide and Lasix, recommend to continue Coreg, Cozaar, and home days of Lasix. Diabetes mellitus. Noted to have elevated blood sugars likely due to steroids recommend to continue home medications and diabetic diet. Acute UTI with sepsis present on admission, with prior history of Klebsiella UTI , treated with ceftriaxone, blood cultures x2 negative will discharge home on 5 more days of Ceftin 250 b.i.d. Right distal fibular fracture outpatient follow-up with Orthopedic surgery. Morbid obesity recommend low-calorie diet. Time Attestation Discharge Coordination Time (in mins): 38 Quality: Safe Use of Opioids Does Pt have an Active Cancer Diagnosis on the Problem List?: No Quality: Stroke Does the patient have a stroke diagnosis?: No Physical Exam Vital Signs: Vital Signs: Last Vital Signs Temp 97.7 F 07/09/24 07:55 Pulse 76 07/09/24 10:50 Resp 19 07/09/24 07:55 BP 122/61 07/09/24 10:51 Pulse Ox 99 07/09/24 07:55 O2 Del Method Nasal Cannula 07/09/24 07:55 O2 Flow Rate 2 07/09/24 07:55 FiO2 28 07/08/24 04:00 Oxygen Flow Rate 5 07/06/24 10:23 BMI result Body Mass Index 39.8 Const: Other: General resting comfortably in no acute distress. Neck no JVD. CVS regular rate rhythm, Respiratory lungs clear to auscultation, no respiratory distress, no wheeze, no rhonchi. Gastrointestinal abdomen soft, non tender, bowel sounds audible, no guarding , no rigidity. Extremities right lower extremity in orthopedic boot Neuro non focal Skin no rash Psych appropriate affect DS: Data Data Completed and Pending Completed studies during hospitalization [Text1]: Procedures Assistance with Respiratory Ventilation, Less than 24 Consecutive Hours, Continuous Positive Airway Pressure (05/04/24) Insertion of Endotracheal Airway into Trachea, Via Natural or Artificial Opening Endoscopic (07/12/21) Inspection of Lower Intestinal Tract, Via Natural or Artificial Opening Endoscopic (02/20/22) Resection of Gallbladder, Percutaneous Endoscopic Approach (07/12/21) Respiratory Ventilation, Less than 24 Consecutive Hours (07/12/21) Labs on day of discharge: Laboratory Results - last 24 hr 07/08/24 07/08/24 07/09/24 16:08 20: 06:17 WBC 7.0 RBC 3.89 L Hgb 11.8 L Hct 37.7 MCV 96.9 MCH 30.3 MCHC 31.3 RDW 12.2 Plt Count 166 MPV 10.9 Absolute Nucleated RBC 0.000 Nucleated RBC % (auto) 0.0 Sodium 141 Potassium 3.8 Chloride 98 Carbon Dioxide 38 H Anion Gap 9 L BUN 27 H Creatinine 0.79 Estim Creat Clear Calc 71.8 Estimated GFR > 60 POC Glucose 203 H 205 H Random Glucose 166 H Calcium 9.6 07/09/24 07/09/24 07:54 11:21 WBC RBC Hgb Hct MCV MCH MCHC RDW Plt Count MPV Absolute Nucleated RBC Nucleated RBC % (auto) Sodium Potassium Chloride Carbon Dioxide Anion Gap BUN Creatinine Estim Creat Clear Calc Estimated GFR POC Glucose 167 H 220 H Random Glucose Calcium Preliminary micro results at discharge 07/06/24 11:23 Blood Culture - Preliminary Blood - Venous No growth after 48 hours. 07/06/24 10:59 Blood Culture - Preliminary Blood - Venous No growth after 48 hours. 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) Carmine Patel MD [Primary Care Provider] - Discharge Medications: New cefuroxime axetil 250 mg tablet 250 mg PO BID Qty: 10 0RF Continued Janumet XR 50-1,000 mg tablet, ER multiphase 24 hr 1 tab PO DAILY pravastatin 40 mg tablet 40 mg PO BEDTIME ergocalciferol (vitamin D2) 1,250 mcg (50,000 unit) capsule 1,250 mcg PO MO@0900 albuterol sulfate 90 mcg/actuation HFA aerosol inhaler 2 puff inhalation Q6H PRN (Reason: Wheezing) famotidine 20 mg tablet 20 mg PO BID carvedilol 12.5 mg Tablet 12.5 mg PO BID Qty: 60 0RF Protocol: Hold for SBP/HR < HOLD for SBP < : 90 HOLD for HR < : 60 insulin glargine [Lantus U-100 Insulin] 100 unit/mL Solution 20 unit subcut BEDTIME Qty: 10 0RF losartan 50 mg tablet 50 mg PO DAILY Qty: 30 0RF insulin lispro [Admelog U-100 Insulin lispro] 100 unit/mL solution 5 unit subcut BIDWM pantoprazole 20 mg tablet,delayed release (DR/EC) 20 mg PO DAILY@0630 albuterol sulfate 2.5 mg /3 mL (0.083 %) solution for nebulization 2.5 mg inhalation Q6H PRN (Reason: Shortness Of Breath Or Wheezing) (DME) lancets [TRUEplus Lancets] 33 gauge misc See Rx Instructions topical .MEDSUPPLY Qty: 100 Rx Instructions: As directed furosemide 40 mg tablet 40 mg PO DAILY Discharge Orders: Discharge Order (Routine); Ordered 07/09/24 Ordered By: Gigi Layton Diet: Advance to usual diet Activity on Discharge: As tolerated Stand Alone Forms: Patient Portal Discharge page Print Language: Slovak Care Plan Goals: UTI take Ceftin 250 mg 1 tablet twice daily for 5 more days Continue CPAP at bedtime/continue home O2 Being discharged home with VNA cells Health Concerns: Right distal fibular fracture follow-up with orthopedic surgeon Diabetes mellitus follow diabetic diet and monitor blood sugar closely Plan of Treatment: Outpatient follow-up with pulmonology call for appointment next 1-2 weeks Outpatient follow-up with orthopedic surgeon as previously planned Outpatient follow-up with primary care physician call for appointment Assessment: As above
--- NOTE | 2024-07-09 11:55 | MHC.CM.PN ---
Addendum entered by Renetta Malave 07/09/24 14:02: [facility] info has been hand faxed to the agency. Addendum entered by Renetta Malave 07/09/24 12:19: Notified Carolin, [facility] transitions of discharge today. A referral has been sent to [facility] for resumption of services. 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 Patient will transport via BLS. [facility] has given prior authorization for BLS transport. [place] [facility] [place]
--- NOTE | 2024-07-09 14:29 | W.MHC.F2F ---
Service Date Service Date: 07/09/24 Encounter Date of encounter: 07/09/24 Reasons for Services Signs and symptoms assessed: Shortness of breath acute on chronic hypercarbic respiratory failure chronic oxygen use and use of CPAP/acute UTI Reason for half-way: medication management and teach disease management Homebound: Leaving the home is medically contraindicated at this time without the asist of a device and/or another person due th the listed conditions above and below. Reason homebound: weakness related to hospital stay Certification: Based on the above findings, I certify that this patient is confined to the home and needs intermittent half-way care, physical therapy and/or speech therapy, or continues to need occupational therapy. The patient is under my care, and I have initiated the establishment of the plan of care. The patient will be followed by a physician who will periodically review the plan of care. Time Spent With Patient Time: Total time managing care of this patient today ____ minutes.
--- NOTE | 2024-07-09 15:20 | MHC.CM.PN ---
Patient is discharged to home with resumption of home services. [facility] will resume SN. [facility] will resume [employer] services. All discharge info has been sent to the agency. Carolin, transitions coordinator has been notified of the discharge. She has approved the home services. BLS transport was set up with [facility] and authorized by [facility]. This morning the Patient confirmed the there would be someone to let her into the apartment. I have been notified by the RN that the patient will not be able to get into the apartment. No one is available to let her in. Her son will pick her up from the hospital. Transport has been cancelled with [facility].
[2024-07-09 16:52] LABS: Glucose, Whole Blood 193 mg/dL (60-115)
[2024-07-09] MEDS: Enoxaparin Sodium 40 MG/0.4 ML SYRINGE SUBCUT (17:04)
== END 2024-07-09 17:45 | disposition home health service (06) | DRG 871 ==
LOC: HO.ED 14:54 → HO.EDOVER 14:54 → HO.ICU 15:27 → HO.IMC 07-07 13:23
PROVIDERS: Internal Medicine; Internal Medicine Pulmonary Disease; Nurse Practitioner Family; Admitting Provider Internal Medicine Critical Care Medicine; Emergency Provider Emergency Medicine; PCP Internal Medicine; Visit Provider Hospitalist
DX: A41.9 Sepsis, unspecified organism (principal); G92.8 Other toxic encephalopathy; J96.21 Acute and chronic respiratory failure with hypoxia; I50.33 Acute on chronic diastolic (congestive) heart failure; J96.22 Acute and chronic respiratory failure with hypercapnia; J44.1 Chronic obstructive pulmonary disease with (acute) exacerbation; E66.2 Morbid (severe) obesity with alveolar hypoventilation; N39.0 Urinary tract infection, site not specified; I11.0 Hypertensive heart disease with heart failure; B96.1 Klebsiella pneumoniae [K. pneumoniae] as the cause of diseases classified elsewhere; I27.20 Pulmonary hypertension, unspecified; Z99.81 Dependence on supplemental oxygen; Z20.822 Contact with and (suspected) exposure to COVID-19; Z68.39 Body mass index [BMI] 39.0-39.9, adult; Z87.440 Personal history of urinary (tract) infections; Z87.891 Personal history of nicotine dependence; Z79.4 Long term (current) use of insulin; Z79.899 Other long term (current) drug therapy
CPT/HCPCS: 0241U; 36415; 71045; 74176; 80048; 80076; 81001; 81003; 82040; 82803; 82947; 83605; 83690; 83735; 84100; 84484; 85025; 85027; 87040; 87086; 87088; 87186; 87633; 93005; 94660; 99285; J0456; J0696; J1120; J1650; J1940; J2919; J3475

== ENCOUNTER → 2024-07-06 10:19 | Outpatient (BNV) | payer OTHER, SELFPAY | PROVIDERS: Emergency Provider Emergency Medicine; PCP Internal Medicine; Visit Provider Internal Medicine | DX: R00.0 Tachycardia, unspecified (principal) | CPT/HCPCS: 93010 ==

== ENCOUNTER → 2024-07-06 14:45 | Outpatient (BNV) | payer OTHER, SELFPAY | PROVIDERS: Admitting Provider Internal Medicine Critical Care Medicine; Emergency Provider Emergency Medicine; PCP Internal Medicine; Visit Provider Internal Medicine Pulmonary Disease | DX: J96.00 Acute respiratory failure, unspecified whether with hypoxia or hypercapnia (principal); J44.9 Chronic obstructive pulmonary disease, unspecified; N39.0 Urinary tract infection, site not specified; E66.2 Morbid (severe) obesity with alveolar hypoventilation; Z68.41 Body mass index [BMI] 40.0-44.9, adult; I50.9 Heart failure, unspecified | CPT/HCPCS: 99232 ==

== ENCOUNTER → 2024-07-06 14:45 | Outpatient (BNV) | payer OTHER, SELFPAY | PROVIDERS: Admitting Provider Internal Medicine Critical Care Medicine; Emergency Provider Emergency Medicine; PCP Internal Medicine; Visit Provider Hospitalist | DX: J44.1 Chronic obstructive pulmonary disease with (acute) exacerbation (principal); J96.22 Acute and chronic respiratory failure with hypercapnia; N39.0 Urinary tract infection, site not specified | CPT/HCPCS: 99232; 99239; 99499; G0180 ==

== ENCOUNTER → 2024-07-06 14:45 | Outpatient (BNV) | payer OTHER, SELFPAY | PROVIDERS: Admitting Provider Internal Medicine Critical Care Medicine; Emergency Provider Emergency Medicine; PCP Internal Medicine; Visit Provider Internal Medicine Critical Care Medicine | DX: J44.9 Chronic obstructive pulmonary disease, unspecified (principal); J96.00 Acute respiratory failure, unspecified whether with hypoxia or hypercapnia; E66.2 Morbid (severe) obesity with alveolar hypoventilation; N39.0 Urinary tract infection, site not specified | CPT/HCPCS: 99223 ==

== ENCOUNTER 2024-07-17 08:11 | Outpatient (REF) | payer OTHER, SELFPAY ==
[2024-07-17 11:09] LABS: Appearance Urine Clear; Color Urine Yellow; Glucose Urine UA Negative (Negative); Leukocyte Esterase Urine Negative (Negative); Nitrite Urine Negative (Negative); Specific Gravity - Urine <= 1.005 (1.005-1.025); Urine Blood Negative (Negative); Urine Ketones Negative (Negative); Urine Protein Negative (Neg-Trace)
== END 2024-07-17 08:12 | disposition home or self-care (01) ==
LOC: HO.HHCL 08:11
PROVIDERS: Visit Provider Internal Medicine
DX: N39.0 Urinary tract infection, site not specified (principal)
CPT/HCPCS: 81003; 87086

== ENCOUNTER 2024-07-18 09:18 | Outpatient (AMB) | payer OTHER, SELFPAY ==
--- NOTE | 2024-07-18 09:25 | MHC.OFFVIS ---
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 Patient was recently hospitalized and discharged on supplemental oxygen. Patient states that she got Inogen from her primary care provider. She continues to use her CPAP, though it appears that she would benefit from BiPAP therapy. [facility] Medical History (Updated 07/11/24 @ 00:02 by Daija Turner) NICO (obstructive sleep apnea) CHF (congestive heart failure) 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 indication of end stage renal disease in patient 6 to 64 years of age Lymphadenopathy Abdominal pain Bursitis of right hip Osteoarthritis of right hip Restrictive ventilatory defect Dyspnea on exertion Varicose veins of right lower extremity with inflammation Pneumonitis Pulmonary hypertension Hypertensive cardiovascular disease Acute hypoxic on chronic hypercapnic respiratory failure Acute on chronic respiratory failure with hypoxemia Obesity hypoventilation syndrome GERD (gastroesophageal reflux disease) Hypertension Diabetes mellitus COPD (chronic obstructive pulmonary disease) Surgical History S/P laparoscopic cholecystectomy (07/14/21) Family History Mother Diabetes Social History Household Members: Unknown / Unable to assess Household Members Other:: cousin Housing: Unknown / Unable to assess Do you presently have visiting nurse or other home services: No Alcohol intake: never Patient Tobacco Use Status: Former Tobacco user Tobacco use type: Cigarette Years Smoked: 20 Advance Directives Date on File: 02/23/24 service: No Current occupational status: unemployed and disabled Review of Systems Const Denies daytime sleepiness, Denies excessive sweating, Denies fatigue, Denies fever(s), Denies lethargy, Denies malaise, Denies night sweats, Denies snoring and Denies weight loss Eyes Denies blurry vision and Denies itchy eyes ENT Denies nasal congestion, Denies post nasal drip, Denies sinus pain, Denies sinus pressure and Denies other ( Thrush) Card Denies chest pain, Denies pedal edema, Denies dyspnea, Denies orthopnea and Denies paroxysmal nocturnal dyspnea Resp Denies cough, Denies hemoptysis, Denies excessive phlegm production, Denies dyspnea, Denies snoring and Denies wheezing GI Denies abdominal pain and Denies heartburn Musc Denies myalgias, Denies arthralgias and Denies joint swelling Skin/Breast Denies rash Neuro Denies memory loss and Denies seizure-like activity Psych Denies abnormal sleep pattern, Denies anxiety and Denies memory loss Endo Denies excessive sweating, Denies fatigue and Denies heat intolerance Ralph/Lymph Denies easy bruising Aller/Immun Denies itchy eyes, Denies seasonal rhinorrhea and Denies wheezing Physical Exam Vital Signs: Last Vital Signs Pulse 102 H 07/18/24 09:33 BP 111/62 07/18/24 09:33 Pulse Ox 97 07/18/24 09:33 Oxygen Delivery Method Nasal Cannula 07/18/24 09:33 Oxygen Flow Rate 2 07/18/24 09:33 Const General: no acute distress and alert Nutritional Appearance: obese Orientation/consciousness: Other orientation findings ( oriented) HEENT Head: Yes atraumatic Eyes General: appearance normal, both eyes and all related structures Sclerae: sclerae normal EOM: EOMs intact bilaterally Neck Neck: Yes supple Lymphatic: no lymphadenopathy noted Resp Effort & Inspection: normal respiratory effort and no use of accessory muscles Auscultation: clear to auscultation bilaterally Cardio Rate: regular rate Rhythm: regular rhythm Heart sounds: no gallops, no murmurs and no rubs Skin General skin exam: other ( warm) Extrem General: No clubbing, No cyanosis and No edema Assessment & Plan Assessment & Plan (1) NICO (obstructive sleep apnea): Code(s): G47.33 - Obstructive sleep apnea (adult) (pediatric) Category: Medical Plan: Suboptimal control on CPAP with a episodes of CO2 retention, will pain titration study to evaluate for BiPAP therapy. (2) Supplemental oxygen dependent: Code(s): Z99.81 - Dependence on supplemental oxygen Category: Medical Plan: Patient states that her oxygen is managed by her primary care provider at this time. Orders: Orders RT PSG in-lab sleep titration Today E66.2 - Morbid (severe) obesity with alveolar hypoventilation Coding Level of Care Code Est Pt Level 3 (39199) Diagnoses NICO (obstructive sleep apnea) G47.33 Supplemental oxygen dependent Z99.81
[2024-07-18 09:33] VITALS: BP 111/62; PULSE 102; O2SAT 97
== END 2024-07-18 09:54 | disposition home or self-care (01) ==
LOC: HO.HPS 09:19
PROVIDERS: PCP Internal Medicine; Visit Provider Internal Medicine Pulmonary Disease
DX: G47.33 Obstructive sleep apnea (adult) (pediatric) (principal); Z99.81 Dependence on supplemental oxygen
CPT/HCPCS: 99213

== ENCOUNTER → 2024-07-18 09:18 | Outpatient (BNVA) | payer OTHER, SELFPAY | PROVIDERS: PCP Internal Medicine; Visit Provider Internal Medicine Pulmonary Disease | DX: G47.33 Obstructive sleep apnea (adult) (pediatric) (principal); Z99.81 Dependence on supplemental oxygen | CPT/HCPCS: 99212 ==

== ENCOUNTER → 2024-07-28 19:30 | Outpatient (REF) | payer OTHER, SELFPAY | LOC: HO.SL 19:30 | PROVIDERS: PCP Internal Medicine; Visit Provider Internal Medicine Pulmonary Disease | DX: G47.33 Obstructive sleep apnea (adult) (pediatric) (principal); R06.83 Snoring | CPT/HCPCS: 95811 ==

== ENCOUNTER → 2024-07-28 22:07 | Outpatient (BNV) | payer OTHER, SELFPAY | PROVIDERS: PCP Internal Medicine; Visit Provider Internal Medicine | DX: G47.33 Obstructive sleep apnea (adult) (pediatric) (principal) | CPT/HCPCS: 95811 ==

== ENCOUNTER 2024-08-06 09:19 | Outpatient (REF) | payer OTHER, SELFPAY ==
[2024-08-06 11:51] LABS: Appearance Urine Cloudy; Color Urine Yellow; Glucose Urine UA Negative (Negative); Leukocyte Esterase Urine Large (3+) (Negative); Nitrite Urine Negative (Negative); PH 5.5 (5.0-9.0); UMIC TRIGGER UACC YES; Urine Blood Trace (Negative); Urine Ketones Negative (Negative); Urine Protein Negative (Neg-Trace)
[2024-08-06 11:55] LABS: Bacteria Urine 1+ (None Seen); Hyaline Casts Urine 0-2 /LPF (0-2); RBC Urine 0-2 /HPF (0-2); UACC Culture Trigger YES; WBC Urine >50 /HPF (0-5)
== END 2024-08-06 09:20 | disposition home or self-care (01) ==
LOC: HO.HHCL 09:19
PROVIDERS: Visit Provider Internal Medicine
DX: R39.9 Unspecified symptoms and signs involving the genitourinary system (principal)
CPT/HCPCS: 81001; 87086

== ENCOUNTER 2024-08-06 18:22 | Emergency (ER) | payer OTHER, SELFPAY ==
[2024-08-06] VITALS (8 sets, daily range): BP systolic 112–147; BP diastolic 54–88; PULSE 74–94; RESP 16–27; TEMP 37.1–38.7; O2SAT 96–100; BMI 46.5
--- NOTE | ~2024-08-06 | XR_ITS ---
EXAMINATION: XR CHEST 1 VIEW CLINICAL INFORMATION: SOB. COMPARISON: XR Chest 07/06/2024. CT abdomen and pelvis 08/06/2024. TECHNIQUE: Frontal view of the chest was obtained. FINDINGS: Normal appearance of the cardiomediastinal structures. No effusions or pneumothoraces. Images underpenetrated as manifest by inability to distinctly visualized thoracic vertebral bodies posterior to the cardiac silhouette. Borderline findings suggestive of right upper lobe focal airspace opacity are noted. Making allowances for underpenetrated technique, grossly normal pattern of pulmonary vasculature is visualized. XR/XR chest 1V IMPRESSION: *Suboptimal chest radiograph secondary to underpenetrated technique. Making allowances for underpenetrated technique, findings mildly suspicious for right upper lobe focal airspace opacities which may represent infection are noted. Electronically signed by: Liban Contreras MD 08/07/2024 12:12 AM [facility]
--- NOTE | ~2024-08-06 | CT_ITS ---
EXAMINATION: CT ABDOMEN AND PELVIS WITHOUT IV CONTRAST CLINICAL INFORMATION: Left ureteral stone, pain COMPARISON: CT abdomen/pelvis July 06, 2024 TECHNIQUE: Multiple axial images were obtained from the superior aspect of the liver through the pubic symphysis without intravenous contrast. Images were evaluated on independent dedicated 3-D workstation and 3-D images were reconstructed with concurrent radiologist supervision and subsequently interpreted. Oral contrast was not administered. This CT examination was performed using dose optimization techniques as appropriate, variously including the following: *Automated exposure control *Adjustment of mA and/or kV according to patient size (this includes techniques or standardized protocols for targeted exams where dose is matched to indication/reason for exam; i.e. extremities or head) *Use of iterative reconstruction technique DLP: 1069 mGy-cm FINDINGS: LUNG BASES: The visualized lung bases are clear. CARDIOMEDIASTINUM: The visualized heart is normal in size without pericardial effusion. No coronary artery calcification. LIVER: Homogeneous in attenuation. Normal in size. GALLBLADDER: Absent BILIARY SYSTEM: No intrahepatic or extrahepatic biliary dilation. PANCREAS: Homogeneous in attenuation. SPLEEN: Normal in size. GENITOURINARY: No contour deforming masses. No perinephric fluid collection. No renal calculi. No hydroureteronephrosis. ADRENAL GLANDS: Unremarkable. REPRODUCTIVE: Uterus and and bilateral adnexa are unremarkable. GASTROINTESTINAL: The visualized alimentary tract is normal in course. Diverticular disease. No evidence of obstruction. APPENDIX: The appendix is seen in its entirety and is unremarkable. PERITONEUM: No pneumoperitoneum. No intra-abdominal fluid collection. VASCULATURE: No abdominal aortic aneurysm. LYMPH NODES: No pathologically enlarged abdominal or pelvic lymph nodes. SOFT TISSUES/MUSCULOSKELETAL: Degenerative changes. No acute fracture or significant focal osseous lesion. CT/CT abdomen pelvis wo IV con IMPRESSION: No acute pathology of the abdomen or pelvis on this noncontrast study. Fleischner guidelines were followed. Electronically signed by: Edwin Huntley DO 08/06/2024 10:08 PM [facility]
[2024-08-06 18:39] LABS: Glucose, Whole Blood 108 mg/dL (60-115)
--- NOTE | 2024-08-06 18:49 | ED_ITS ---
HPI - Abdominal Pain General Chief Complaint: Abdominal Pain Stated Complaint: ABD PAIN, HEADACHE, WEAKNESS Time Seen by Provider: 08/06/24 18:38 Source: patient and motor vehicle parts interpreter Limitations: language barrier History of Present Illness ED Provider: Myra Watts PA-C HPI narrative: 79-year-old female seen in the ED for concerns regarding 9/10 left lower quadrant abdominal pain for approximately 1 day; described as burning, intermittent pain. Also reports associated headache and urinary symptoms to include urinary urgency, dysuria; denies hematuria. Reportedly has a history of UTIs in the past. Denies fever, chills, nausea, vomiting. Denies recent illness, changes to medication. Denies chest pain, shortness of breath. Pertinent past history: past UTI Onset (ago): day(s) (One day) Pain Consistency: intermittent Location: LLQ and suprapubic Severity: severe Pain scale (0-10): 9 Quality: burning Radiation: none Exacerbating factors: other (Urination results and burning sensation) Relieving factors: nothing Context: history of similar episodes (History of UTIs) Associated symptoms: dysuria Related Data Home Medications ?Medication ?Instructions ?Recorded ?Confirmed lancets 33 gauge (TRUEplus Lancets) #100 ea 09/20/21 05/22/24 sitagliptin phos 50 mg-metformin 1 tab PO DAILY 02/20/22 08/06/24 ER 1,000 mg tablet,extend rel 24h mp (Janumet XR) furosemide 40 mg tablet 40 mg PO DAILY 05/11/23 08/06/24 albuterol sulfate 90 mcg/actuation 2 puff inhalation Q6H PRN Wheezing 11/02/23 08/06/24 aerosol inhaler ergocalciferol (vitamin D2) 1,250 1,250 mcg PO MO 11/02/23 08/06/24 mcg (50,000 unit) capsule famotidine 20 mg tablet 20 mg PO BID 11/02/23 08/06/24 pravastatin 40 mg tablet 40 mg PO BEDTIME 11/02/23 08/06/24 albuterol sulfate 2.5 mg/3 mL 2.5 mg inhalation Q6H PRN 05/04/24 08/06/24 (0.083 %) solution for nebulization Shortness Of Breath Or Wheezing pantoprazole 20 mg tablet,delayed 20 mg PO DAILY@0630 05/04/24 08/06/24 release insulin lispro 100 unit/mL 5 unit subcut DAILY 08/06/24 08/06/24 subcutaneous pen (Humalog KwikPen (U-100) Insulin) ketotifen fumarate 0.025 % (0.035 1 drp ophthalmic (eye) Q12H PRN 08/06/24 08/06/24 %) eye drops Eye Itching Previous Rx's ?Medication ?Instructions ?Recorded carvedilol 12.5 mg tablet 12.5 mg PO BID #60 tabs 11/07/23 insulin glargine 100 unit/mL 20 unit (0.2 mL) subcut BEDTIME 11/15/23 subcutaneous solution (Lantus #10 mL U-100 Insulin) losartan 50 mg tablet 50 mg PO DAILY #30 tabs 11/15/23 levofloxacin 750 mg tablet 750 mg PO DAILY #5 tabs 08/06/24 Allergies Allergy/AdvReac Type Severity Reaction Status Date / Time No Known Allergies Allergy Verified 08/06/24 18:34 [No Known Allergies*] Review of Systems Review of Systems Neuro: Alert and oriented. Reports headache. Denies numbness or tingling in extremities Constitutional: Denies fever, chills, weakness. HEENT: Reports headache. Denies head pain. Denies visual disturbances, erythema, discharge of eyes. Denies auditory disturbances. Denies nasal congestion, nasal discharge. Denies throat discomfort, difficulty swallowing Cardiac: Denies chest pain, palpitations. Pulmonary: Denies shortness of breath, cough, sputum production GI: Reports 9/10 left lower quadrant and suprapubic abdominal pain. Denies nausea, vomiting. Denies diarrhea, constipation. Integumentary: Denies changes to skin including rashes, erythema, pruritus. : Reports urinary urgency and dysuria. Denies hematuria. MSK: Reports full range of motion in all extremities. Yes all other systems are reviewed and are negative and unobtainable due to endotracheal tube Constitutional: Reports as per HPI and Reports no additional constitutional complaints Eyes: Reports as per HPI and Reports no additional eye complaints Reports system reviewed and no additional complaints, except as documented, Reports as per HPI and Reports Normal hearing present Cardiovascular: Reports as per HPI and Reports no additional cardiovascular complaints Respiratory: Reports as per HPI and Reports no additional respiratory complaints Gastrointestinal: Reports as per HPI, Reports no additional gastrointestinal complaints and Reports abdominal pain Genitourinary: Reports no additional female genitourinary complaints, Reports as per HPI, Reports dysuria, Reports pelvic pain and Reports urinary urgency Musculoskeletal: Reports no additional musculoskeletal complaints and Reports as per HPI Skin/Breast: Reports system reviewed and no additional complaints, except as docu and Reports as per HPI Reports system reviewed and no additional complaints, except as documented, Reports as per HPI and Reports Normal hearing present Psychiatric: Reports no additional psychiatric complaints and Reports as per HPI Endocrine: Reports no additional endocrine complaints and Reports as per HPI Hematologic/Lymphatic: Reports no additional hematologic/lymphatic complaints and Reports as per HPI Allergic/Immunologic: Reports no additional allergic/immunologic complaints and Reports as per HPI [facility] Past Medical History Medical History (Updated 08/06/24 @ 23:35 by ZUHAIR Burleson) NICO (obstructive sleep apnea) CHF (congestive heart failure) 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 indication of end stage renal disease in patient 6 to 64 years of age Lymphadenopathy Abdominal pain Bursitis of right hip Osteoarthritis of right hip Restrictive ventilatory defect Dyspnea on exertion Varicose veins of right lower extremity with inflammation Pneumonitis Pulmonary hypertension Hypertensive cardiovascular disease Acute hypoxic on chronic hypercapnic respiratory failure Acute on chronic respiratory failure with hypoxemia Obesity hypoventilation syndrome GERD (gastroesophageal reflux disease) Hypertension Diabetes mellitus COPD (chronic obstructive pulmonary disease) Surgical History S/P laparoscopic cholecystectomy (07/14/21) Family History Family History Mother Diabetes Social History Social History Household Members: Unknown / Unable to assess Household Members Other:: cousin Housing: Unknown / Unable to assess Do you presently have visiting nurse or other home services: No Alcohol intake: never Patient Tobacco Use Status: Former Tobacco user Tobacco use type: Cigarette Years Smoked: 20 Smoked in Last 30 Days: Yes Use of substances other than those prescribed or required for medical reasons: No Advance Directives: Yes Advance Directives on File: Yes Advance Directives Date on File: 02/23/24 service: No Current occupational status: unemployed and disabled Physical Exam ED Vital Signs: Vital Signs - 24 hr 08/06/24 18:33 08/06/24 19:22 08/06/24 20:25 Temperature 99.9 F 101.6 F H 98.8 F Pulse Rate 86 81 74 Respiratory Rate 18 20 20 Blood Pressure 136/62 136/62 129/57 L Pulse Oximetry 97 98 99 Oxygen Delivery Method Nasal Cannula Nasal Cannula Nasal Cannula Oxygen Flow Rate 2 2 08/06/24 21:28 08/06/24 22:12 08/06/24 22:23 Temperature 98.9 F 98.7 F Pulse Rate 80 82 83 Respiratory Rate 17 16 20 Blood Pressure 112/56 L 147/72 H 137/62 Pulse Oximetry 98 99 100 Oxygen Delivery Method Nasal Cannula Nasal Cannula Nasal Cannula Oxygen Flow Rate 2 2 2 08/06/24 22:40 08/06/24 22:40 Temperature 98.8 F Pulse Rate 75 78 Respiratory Rate 20 27 H Blood Pressure 139/54 L 139/54 L Pulse Oximetry 99 99 Oxygen Delivery Method Nasal Cannula Nasal Cannula Oxygen Flow Rate 2 2 BMI result Body Mass Index 46.5 Const Other: Patient is lying in bed, calm and cooperative, no acute distress. They are alert and oriented and able to speak in complete and full sentences; motor vehicle parts interpreter services utilized. General: cooperative, no acute distress, well developed, alert, awake and Physically active Nutritional Appearance: average body habitus and well nourished Orientation/consciousness: patient oriented x3 HENMT Other: Head is normocephalic atraumatic; no noted abnormalities upon inspection. External ears appear to be normal and hearing is intact. No abnormalities noted of the external nose; no signs of erythema, discharge, bleeding. External mouth including lips appears to be intact. Head: Yes normal to inspection, Yes normocephalic and Yes atraumatic Ears: hearing grossly normal bilaterally and external ears normal General nose exam: Normal external nose present and Normal nares present Face and sinus: Yes normal facial exam and Yes face symmetric Mouth: lip normal Eyes Other: Pupils are PERRL. External eyes appear to be intact with no noted bleeding, discharge. No abnormalities noted of the eyelids or stephy orbital region. General: appearance normal, both eyes and all related structures Periorbital: periorbital findings normal Eyelids: Yes eyelids normal Conjunctivae: conjunctivae normal Sclerae: sclerae normal Pupils: Equal, round and reactive pupils present Neck Other: Full range of motion in neck; no report of cervical pain or tenderness upon rotation of head Neck: Yes normal visual inspection and Yes full ROM Resp Other: Lung sounds are clear to auscultation bilaterally; no noted wheezing, rhonchi. Patient is able to speak in complete in full sentences. They are currently on 2 L oxygen via nasal cannula which is baseline for patient. Effort & Inspection: normal respiratory effort and able to speak in complete sentences Auscultation: clear to auscultation bilaterally Cardio Other: Heart is normal for rate, rhythm, quality. No murmurs, rubs, gallops. Rate: regular rate Rhythm: regular rhythm GI Other: Tenderness upon palpation of the right upper quadrant, right lower quadrant, suprapubic region, left lower quadrant. Abdomen appears to be soft, nondistended; no rigidity noted. Bowel sounds are present. Negative Hawthorne sign. Inspection: Yes normal to inspection Palpation (GI): Soft to palpation Auscultation: normal bowel sounds Other: Tenderness upon palpation of the suprapubic region. Positive CVA tenderness bilaterally. General: Yes CVA tenderness Back/Spine/Pelvis Other: Positive CVA tenderness bilaterally Back: CVA tenderness Skin Other: Skin is warm, dry, appropriate your collar. No noted rashes, erythema, changes in skin color. General skin exam: no rashes or lesions noted Neuro Other: Patient is alert and oriented. Able to speak in complete and full sentences. Denies numbness and tingling in extremities. Has full range of motion in all extremities General: patient oriented x3 Cranial nerves: Yes Equal, round and reactive pupils present and Yes Normal hearing present Cognition (Neuro): normal cognition Extrem Other: Full range of motion in all extremities. Positive CMS in all extremities. Note that patient has a boot on the right foot from previous injury. General: Yes normal to inspection and Yes full ROM Psych Other: Calm and cooperative. Does not appear to be in a state of distress. Appearance: grossly normal and well kempt Speech and movement: Normal speech and movement present Attitude: cooperative Thought process: Normal thought process present Insight: Good insight present (Psych) Judgement: Good judgement present (Psych) Procedures Procedure Narrative Procedure Narrative: Ultrasound-guided IV 20 gauge 2-1/2 inch needle placed in the right upper extremity, adequate blood return, flushes well, secured with Tegaderm Medical Decision Making Medical Decision Making MDM Narrative: I Myra Watts PA-C have personally assessed and manage the patient, Cely MAGAÑA 79-year-old female seen in the ED for concerns regarding 9/10 left lower quadrant abdominal pain for approximately 1 day; described as burning, intermittent pain. Also reports associated headache and urinary symptoms to include urinary urgency, dysuria; denies hematuria. Reportedly has a history of UTIs in the past. Denies fever, chills, nausea, vomiting. Denies recent illness, changes to medication. Denies chest pain, shortness of breath. DDX: - acute UTI/cystitis: Consider due to urinary urgency, dysuria, abdominal pain. Obtaining a UA - pyelonephritis: Considered due to urinary urgency, dysuria, suprapubic pain, abdominal pain, bilateral CVA tenderness. - sepsis: Patient is febrile, we will begin to implement sepsis protocol, we will be adding on blood cultures, lactate, the patient is not requiring weight based IV fluid as she is normotensive and not tachycardic, we will just give a L at this time, and reassess in between. - nephrolithiasis: Consider due to flank pain/CVA tenderness with report of intermittent pain. We will be obtaining a CT scan, the greatest concern is for an obstructing infected stone. - bladder cancer: Consider due to suprapubic pain, urinary urgency, dysuria. Unlikely due to acute onset and lack of hematuria. Plan: - CBC: To assess for any underlying hematologic or infectious pathology - CMP: To assess for any metabolic or electrolyte abnormalities - UA: To assess kidney function and for underlying infectious pathology - blood cultures: To assess for possible sepsis given current complaints, physical exam findings, borderline hypothermia - CT scan: To assess for abnormalities of the bladder, reproductive tract, kidneys, or other abdominal findings. - vital signs: Continue to monitor and assess for any significant changes which could be indicative of sepsis: Such as tachycardia, hypotension, hypothermia - pain control: Due to report of 9/10 pain - IV fluids: To ensure hydration and positive kidney function Per Myra Watts PA-C Rectal temp was checked, she is 101.6, I will implement sepsis protocol. Obtaining a CT scan given concurrent abdominal pain, given related symptoms I am concerned for urosepsis, perhaps she has an obstructing stone. She does not require weight based IV fluid given she is normotensive, not tachycardic, we will give 1 L and reassess in between as I previously stated, we will start empiric ceftriaxone. I have independently reviewed the following tests: Labs: No overall leukocytosis, but she has left shift, she also has new anemia that is stable 9.9 and 31.1 respectively, bicarb 42, however she has COPD and is compensating , magnesium 1.3, we will give 2 g of magnesium, lactic 0.9, urine not infected CT abdomen and pelvis: CT/CT abdomen pelvis wo IV con IMPRESSION: No acute pathology of the abdomen or pelvis on this noncontrast study. Fleischner guidelines were followed. Electronically signed by: Edwin Huntley DO 08/06/2024 10:[address] [facility] CXR: Multifocal pneumonia patient has remained hemodynamically stable, she does not have a new oxygen requirement, CT negative, lactic negative, fever controlled, she can be treated as an outpatient. We will use Levaquin. Lab Data 08/06/24 18:58 08/06/24 18:58 Labs: Lab Results 08/06/24 08/06/24 08/06/24 Range/Units 18:35 18:58 19:33 WBC 9.2 (4.8-10.8) X10*3/uL RBC 3.22 L (4.20-5.50) X10*6/uL Hgb 9.9 L (12.0-16.0) g/dl Hct 31.1 L (37.0-47.0) % MCV 96.6 (80.0-98.0) fL MCH 30.7 (27.0-33.0) pg MCHC 31.8 (31.0-35.0) g/dl RDW 12.4 (11.0-16.0) % Plt Count 142 L (160-400) X10*3/uL MPV 10.5 (9.4-12.3) fL Immature Gran % (Auto) 0.3 (0.0-0.4) % Neut % (Auto) 85.6 H (45-73) % Lymph % (Auto) 6.9 L (20-40) % Sac % (Auto) 4.8 (2-11) % Eos % (Auto) 2.2 (0-4) % Baso % (Auto) 0.2 (0-2) % Lymph # (Auto) 0.6 L (1.2-4.9) X10*3/uL Sac # (Auto) 0.4 (0.1-1.2) X10*3/uL Eos # (Auto) 0.2 (0.0-0.4) X10*3/uL Baso # (Auto) 0.0 (0.0-0.2) X10*3/uL Abs Immat Gran (auto) 0.03 (0.00-0.03) X10*3/uL Absolute Neuts (auto) 7.8 (2.0-8.3) x10*3/uL Absolute Nucleated RBC 0.000 (0.0-0.012) X10*3/uL Nucleated RBC % (auto) 0.0 (0.0-0.2) /100WBC Sodium 142 (135-145) mmol/L Potassium 3.6 (3.3-5.1) mmol/L Chloride 90 L (96-108) mmol/L Carbon Dioxide 42 H* (22-29) mmol/L Anion Gap 14 (12-20) BUN 11 (9-16) mg/dL Creatinine 0.59 (0.5-1.4) mg/dL Estim Creat Clear Calc 98.0 Estimated GFR > 60 POC Glucose 108 (60-115) mg/dL Random Glucose 118 H (60-115) mg/dL Lactic Acid (0.5-2.0) mmol/L Calcium 8.8 D (8.4-10.2) mg/dL Magnesium 1.3 L* (1.6-2.6) mg/dL Total Bilirubin 0.4 (0.0-1.0) mg/dL AST 20 (5-31) U/L ALT 8 (0-31) U/L Alkaline Phosphatase 46 (39-117) U/L Total Protein 7.0 (6.5-8.0) g/dL Albumin 3.7 (3.5-5.0) g/dL Lipase 6 L (8-78) U/L Urine Color Yellow Urine Appearance Clear Urine pH 6.5 (5.0-9.0) Ur Specific [place] 1.015 (1.005-1.025) Urine Protein Negative (Neg-Trace) mg/dL Urine Glucose (UA) Negative (Negative) mg/dL Urine Ketones Negative (Negative) mg/dL Urine Blood Negative (Negative) Urine Nitrite Negative (Negative) Ur Leukocyte Esterase Trace H (Negative) Urine RBC 0-2 (0-2) /HPF Urine WBC 6-10 H (0-5) /HPF Ur Squamous Epith Cells 0-2 (0-2) /HPF Urine Bacteria None Seen (None Seen) Hyaline Casts 0-2 (0-2) /LPF 08/06/24 Range/Units 19:44 WBC (4.8-10.8) X10*3/uL RBC (4.20-5.50) X10*6/uL Hgb (12.0-16.0) g/dl Hct (37.0-47.0) % MCV (80.0-98.0) fL MCH (27.0-33.0) pg MCHC (31.0-35.0) g/dl RDW (11.0-16.0) % Plt Count (160-400) X10*3/uL MPV (9.4-12.3) fL Immature Gran % (Auto) (0.0-0.4) % Neut % (Auto) (45-73) % Lymph % (Auto) (20-40) % Sac % (Auto) (2-11) % Eos % (Auto) (0-4) % Baso % (Auto) (0-2) % Lymph # (Auto) (1.2-4.9) X10*3/uL Sac # (Auto) (0.1-1.2) X10*3/uL Eos # (Auto) (0.0-0.4) X10*3/uL Baso # (Auto) (0.0-0.2) X10*3/uL Abs Immat Gran (auto) (0.00-0.03) X10*3/uL Absolute Neuts (auto) (2.0-8.3) x10*3/uL Absolute Nucleated RBC (0.0-0.012) X10*3/uL Nucleated RBC % (auto) (0.0-0.2) /100WBC Sodium (135-145) mmol/L Potassium (3.3-5.1) mmol/L Chloride (96-108) mmol/L Carbon Dioxide (22-29) mmol/L Anion Gap (12-20) BUN (9-16) mg/dL Creatinine (0.5-1.4) mg/dL Estim Creat Clear Calc Estimated GFR POC Glucose (60-115) mg/dL Random Glucose (60-115) mg/dL Lactic Acid 0.9 (0.5-2.0) mmol/L Calcium (8.4-10.2) mg/dL Magnesium (1.6-2.6) mg/dL Total Bilirubin (0.0-1.0) mg/dL AST (5-31) U/L ALT (0-31) U/L Alkaline Phosphatase (39-117) U/L Total Protein (6.5-8.0) g/dL Albumin (3.5-5.0) g/dL Lipase (8-78) U/L Urine Color Urine Appearance Urine pH (5.0-9.0) Ur Specific [place] (1.005-1.025) Urine Protein (Neg-Trace) mg/dL Urine Glucose (UA) (Negative) mg/dL Urine Ketones (Negative) mg/dL Urine Blood (Negative) Urine Nitrite (Negative) Ur Leukocyte Esterase (Negative) Urine RBC (0-2) /HPF Urine WBC (0-5) /HPF Ur Squamous Epith Cells (0-2) /HPF Urine Bacteria (None Seen) Hyaline Casts (0-2) /LPF Medications Administered Generic Name Dose Route Start Last Admin Trade Name Trey PRN Reason Stop Dose Admin Azithromycin 500 mg/ Sodium 250 mls @ 125 mls/hr 08/06/24 23:32 08/06/24 23:44 Chloride IV 08/07/24 01:31 Not Given ONCE ONE Discontinued Medications Generic Name Dose Route Start Last Admin Trade Name Freq PRN Reason Stop Dose Admin Azithromycin 500 mg 08/06/24 23:43 08/06/24 23:46 Azithromycin 500 Mg Tablet PO 08/06/24 23:44 500 mg ONCE ONE Administration Ceftriaxone Sodium 2 gm 08/06/24 19:21 08/06/24 19:47 Ceftriaxone Sodium 2 Gm Vial IVPUSH 08/06/24 19:22 2 gm ONCE ONE Administration Acetaminophen 1,000 mg in 100 mls @ 400 mls/hr 08/06/24 18:59 08/06/24 20:20 Ofirmev IV 08/06/24 19:13 Infused ONCE ONE Infusion Sodium Chloride 1,000 mls @ 999 mls/hr 08/06/24 19:30 08/06/24 22:00 Ns IV 08/06/24 20:30 Infused .Q1H1M TIMOTHY Infusion Magnesium Sulfate 2 gm in 50 mls @ 25 mls/hr 08/06/24 19:49 08/06/24 21:39 Magnesium Sulfate/H2o IV 08/06/24 21:48 Infused ONCE ONE Infusion Ketorolac Tromethamine 15 mg 08/06/24 18:59 08/06/24 19:29 Ketorolac Tromethamine 15 Mg/Ml Vial IVPUSH 08/06/24 19:00 15 mg ONCE ONE Administration Ondansetron HCl 4 mg 08/06/24 23:24 08/06/24 23:43 Ondansetron Hcl 4 Mg/2 Ml Vial IVPUSH 08/06/24 23:25 Not Given ONCE ONE Discharge Plan Discharge Clinical Impression: Abdominal pain, Fever, Pneumonia Patient Disposition: Home, Self-Care Instructions: Community Acquired Pneumonia (ED) Additional Instructions: Okay you were found to have pneumonia. The CT scan your abdomen was negative, your labs were overall normal, you did have a fever but it responded to treatment. If you spike a fever at home, you can alternate between the use of [id number] ibuprofen 600 mg taken every 6 hours with food, with [id number] Tylenol 1000 mg taken every 8 hours. Take your antibiotic, levofloxacin, as directed. You do not require any additional medication until tomorrow morning. Follow up with your primary care provider this week. Prescriptions: New levofloxacin 750 mg tablet 750 mg PO DAILY Qty: 5 0RF No Action Janumet XR 50-1,000 mg tablet, ER multiphase 24 hr 1 tab PO DAILY ketotifen fumarate 0.025 % (0.035 %) drops 1 drp ophthalmic (eye) Q12H PRN (Reason: Eye Itching) insulin lispro [Humalog KwikPen Insulin] 100 unit/mL insulin pen 5 unit subcut DAILY pravastatin 40 mg tablet 40 mg PO BEDTIME ergocalciferol (vitamin D2) 1,250 mcg (50,000 unit) capsule 1,250 mcg PO MO albuterol sulfate 90 mcg/actuation HFA aerosol inhaler 2 puff inhalation Q6H PRN (Reason: Wheezing) famotidine 20 mg tablet 20 mg PO BID carvedilol 12.5 mg Tablet 12.5 mg PO BID Qty: 60 0RF Protocol: Hold for SBP/HR < HOLD for SBP < : 90 HOLD for HR < : 60 insulin glargine [Lantus U-100 Insulin] 100 unit/mL Solution 20 unit subcut BEDTIME Qty: 10 0RF losartan 50 mg tablet 50 mg PO DAILY Qty: 30 0RF pantoprazole 20 mg tablet,delayed release (DR/EC) 20 mg PO DAILY@0630 albuterol sulfate 2.5 mg /3 mL (0.083 %) solution for nebulization 2.5 mg inhalation Q6H PRN (Reason: Shortness Of Breath Or Wheezing) (DME) lancets [TRUEplus Lancets] 33 gauge misc See Rx Instructions topical .MEDSUPPLY Qty: 100 Rx Instructions: As directed furosemide 40 mg tablet 40 mg PO DAILY Print Language: Mongolian
[2024-08-06 19:03] LABS: MANUAL DIFF FLAG NO
[2024-08-06 19:04] LABS: Basophils Percent Auto 0.2 % (0-2); Eosinophils Absolute Auto 0.2 X10*3/uL (0.0-0.4); Eosinophils Percent Auto 2.2 % (0-4); Hematocrit 31.1 % (37.0-47.0); Hemoglobin 9.9 g/dl (12.0-16.0); Imm Gran Abs Auto 0.03 X10*3/uL (0.00-0.03); Imm Gran Pct Auto 0.3 % (0.0-0.4); Lymphocytes Absolute Auto 0.6 X10*3/uL (1.2-4.9); Lymphocytes Percent Auto 6.9 % (20-40); Mean Corpuscular HGB Conc 31.8 g/dl (31.0-35.0); Mean Corpuscular Hemoglobin 30.7 pg (27.0-33.0); Mean Corpuscular Volume 96.6 fL (80.0-98.0); Mean Platelet Volume 10.5 fL (9.4-12.3); Monocytes Absolute Auto 0.4 X10*3/uL (0.1-1.2); Monocytes Percent Auto 4.8 % (2-11); Neutrophils Absolute Auto 7.8 x10*3/uL (2.0-8.3); Neutrophils Percent Auto 85.6 % (45-73); Platelet Count 142 X10*3/uL (160-400); Red Blood Count 3.22 X10*6/uL (4.20-5.50); Red Cell Distribution Width 12.4 % (11.0-16.0); White Blood Count 9.2 X10*3/uL (4.8-10.8)
[2024-08-06] MEDS: Ketorolac Tromethamine 15 MG/ML VIAL IVPUSH (19:29)
[2024-08-06] MEDS: Acetaminophen 1,000 MG/100 ML PIGGYBACK 400 MG IV (19:30)
--- NOTE | 2024-08-06 19:38 | PC.NURSE ---
pt noted to be hard stick, x3 attempts made. Cornelia MOFFETT at bedside to place ultrasound guided IV.
[2024-08-06 19:41] LABS: Alanine Aminotransferase 8 U/L (0-31); Albumin Level 3.7 g/dL (3.5-5.0); Alkaline Phosphatase 46 U/L (39-117); Anion Gap 14 (12-20); Aspartate Amino Transferase 20 U/L (5-31); Bilirubin Total 0.4 mg/dL (0.0-1.0); Blood Urea Nitrogen 11 mg/dL (9-16); Calcium 8.8 mg/dL (8.4-10.2); Carbon Dioxide 42 mmol/L (22-29); Chloride 90 mmol/L (96-108); Estimated Glomerular Filt Rate > 60; Glucose Random 118 mg/dL (60-115); Lipase 6 U/L (8-78); Magnesium 1.3 mg/dL (1.6-2.6); Potassium 3.6 mmol/L (3.3-5.1); Sodium 142 mmol/L (135-145)
[2024-08-06] MEDS: cefTRIAXone sodium 2 GM VIAL IVPUSH (19:47)
[2024-08-06] MEDS: 0.9 % Sodium Chloride 1,000 ML 999 ML IV (19:47)
[2024-08-06] MEDS: Magnesium Sulfate/H2O 2 GM/50 ML PIGGYBACK IV (19:56)
[2024-08-06 19:57] LABS: Appearance Urine Clear; Color Urine Yellow; Glucose Urine UA Negative (Negative); Leukocyte Esterase Urine Trace (Negative); Nitrite Urine Negative (Negative); PH 6.5 (5.0-9.0); Specific Gravity - Urine 1.015 (1.005-1.025); UMIC TRIGGER UACC YES; Urine Blood Negative (Negative); Urine Ketones Negative (Negative); Urine Protein Negative (Neg-Trace)
--- NOTE | 2024-08-06 19:58 | PC.NURSE ---
late entry- this rn assumed care of pt at 1900, pediatric psychologist at bedside. pt reporting onset of lower abdominal pain and pain with urination starting x3 days ago. pt denies any nausea, vomiting, diarrhea and any blood noted. pt on 2L nasal cannula baseline for copd. pt noted to have oral fever, rectal temp obtained, divya MOFFETT aware, sepsis alert called at 1922. labs obtained and sent to lab. 22G placed in left hand and ultrasound guided 20G placed in right ac. pt straight cath per order, 100ml yellow urine obtained. pt tolerated well. pt non ambulatory at baseline.
[2024-08-06 20:07] LABS: Bacteria Urine None Seen (None Seen); Hyaline Casts Urine 0-2 /LPF (0-2); RBC Urine 0-2 /HPF (0-2); Squamous Epithelial Cell Urine 0-2 /HPF (0-2); UACC Culture Trigger YES
[2024-08-06 20:10] LABS: Lactic Acid 0.9 mmol/L (0.5-2.0)
--- NOTE | 2024-08-06 21:36 | PC.NURSE ---
pt fluids noted to be administering slow, fluids placed on pressure bag.
--- NOTE | 2024-08-06 22:10 | PHA.MEDREC ---
Addendum entered by Mic Olvera [facility] 08/06/24 22:24: med rec reviewed Original Note: Pharmacy Consult ? Medication Reconciliation Pharmacy has completed the medication reconciliation. 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 The patient confirmed she has not started the Nitrofurantoin 100mg tabs yet but states she has them at home. She confirmed her Vitamin D2 tab once a week on Mondays and confirmed she took it this past Sunday. She confirmed the Lantus Solostar 20 units at bedtime and she states she did that last night. She stated shes only been doing her Humalog KwikPen Insulin injecting 5 units in the morning and no more throughout the day. She confirmed she took her morning medications this morning and confirmed she took her 5 units of Humalog this morning.
[2024-08-06] MEDS: Azithromycin 500 MG TABLET PO (23:46)
[2024-08-07 02:01] VITALS: BP 123/55; PULSE 87; RESP 17; TEMP 37.2; O2SAT 98
== END 2024-08-07 02:01 | disposition home or self-care (01) ==
PROVIDERS: Physician Assistant Medical; Emergency Provider Emergency Medicine
DX: J18.9 Pneumonia, unspecified organism (principal); R50.9 Fever, unspecified; R10.32 Left lower quadrant pain; E11.9 Type 2 diabetes mellitus without complications; I10 Essential (primary) hypertension; Z79.4 Long term (current) use of insulin; Z79.02 Long term (current) use of antithrombotics/antiplatelets; Z79.899 Other long term (current) drug therapy
CPT/HCPCS: 36415; 71045; 74176; 80053; 81001; 81003; 82947; 83605; 83690; 83735; 85025; 87040; 87086; 96361; 96365; 96367; 96375; 99285; J0131; J0696; J1885; J3475

== ENCOUNTER 2024-09-11 08:39 | Outpatient (AMB) | payer OTHER, SELFPAY ==
--- NOTE | 2024-09-11 08:45 | A.OFFVIS_ITS ---
Intake Visit Reasons: recurrent UTI/Urinary Incontinence- CT/KUB(Set) Intake Note: New patient is present to establish care for recurrent UTI Any Urology Medications: None Antibiotic Allergy: None Blood Thinner: None PVR:117ml's Family History: Bladder Cancer? No Prostate Cancer? No Patient Symptoms: Frequency urinating Business Operations Consultant Required: Yes Business Operations Consultant Language: Faroese Accompanied by: Spouse Allergies No Known Allergies [No Known Allergies*] Allergy (Verified 09/11/24 09:29) HPI Comments Details: Magalie CTAP-- 07/06/24 08/06/24 PFS Medical History Unspecified urinary incontinence NICO (obstructive sleep apnea) CHF (congestive heart failure) 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 indication of end stage renal disease in patient 6 to 64 years of age Lymphadenopathy Abdominal pain Bursitis of right hip Osteoarthritis of right hip Restrictive ventilatory defect Dyspnea on exertion Varicose veins of right lower extremity with inflammation Pneumonitis Pulmonary hypertension Hypertensive cardiovascular disease Acute hypoxic on chronic hypercapnic respiratory failure Acute on chronic respiratory failure with hypoxemia Obesity hypoventilation syndrome GERD (gastroesophageal reflux disease) Hypertension Diabetes mellitus COPD (chronic obstructive pulmonary disease) Surgical History S/P laparoscopic cholecystectomy (07/14/21) Family History Mother Diabetes Social History Household Members: Unknown / Unable to assess Household Members Other:: cousin Housing: Unknown / Unable to assess Do you presently have visiting nurse or other home services: No Alcohol intake: never Patient Tobacco Use Status: Former Tobacco user Tobacco use type: Cigarette Years Smoked: 20 Advance Directives Date on File: 02/23/24 service: No Current occupational status: unemployed and disabled Office Procedures Post Void Residual Post Residual Void Post Void Residual (PVR): 117 [id number] Void Residual by ultrasound Results Reviewed Results Reviewed: Date of Service: 08/06/24 CT ABDOMEN AND PELVIS WITHOUT IV CONTRAST CLINICAL INFORMATION: Left ureteral stone, pain COMPARISON: CT abdomen/pelvis July 06, 2024 TECHNIQUE: Multiple axial images were obtained from the superior aspect of the liver through the pubic symphysis without intravenous contrast. Images were evaluated on independent dedicated 3-D workstation and 3-D images were reconstructed with concurrent radiologist supervision and subsequently interpreted. Oral contrast was not administered. This CT examination was performed using dose optimization techniques as appropriate, variously including the following: *Automated exposure control *Adjustment of mA and/or kV according to patient size (this includes techniques or standardized protocols for targeted exams where dose is matched to indication/reason for exam; i.e. extremities or head) *Use of iterative reconstruction technique DLP: 1069 mGy-cm FINDINGS: LUNG BASES: The visualized lung bases are clear. CARDIOMEDIASTINUM: The visualized heart is normal in size without pericardial effusion. No coronary artery calcification. LIVER: Homogeneous in attenuation. Normal in size. GALLBLADDER: Absent BILIARY SYSTEM: No intrahepatic or extrahepatic biliary dilation. PANCREAS: Homogeneous in attenuation. SPLEEN: Normal in size. GENITOURINARY: No contour deforming masses. No perinephric fluid collection. No renal calculi. No hydroureteronephrosis. ADRENAL GLANDS: Unremarkable. REPRODUCTIVE: Uterus and and bilateral adnexa are unremarkable. GASTROINTESTINAL: The visualized alimentary tract is normal in course. Diverticular disease. No evidence of obstruction. APPENDIX: The appendix is seen in its entirety and is unremarkable. PERITONEUM: No pneumoperitoneum. No intra-abdominal fluid collection. VASCULATURE: No abdominal aortic aneurysm. LYMPH NODES: No pathologically enlarged abdominal or pelvic lymph nodes. SOFT TISSUES/MUSCULOSKELETAL: Degenerative changes. No acute fracture or significant focal osseous lesion. IMPRESSION: No acute pathology of the abdomen or pelvis on this noncontrast study. Date of Service: 07/06/24 CT ABDOMEN AND PELVIS WITHOUT CONTRAST CLINICAL INFORMATION: Abdominal pain, fever, sepsis. COMPARISON: CT abdomen/pelvis 11/02/2023. TECHNIQUE: Multidetector volumetric imaging was performed from the superior aspect of the liver through the pubic symphysis. Sagittal and coronal reformatted images were obtained on the technologist's workstation. This CT examination was performed using dose optimization techniques as appropriate, variously including the following: *Automated exposure control *Adjustment of mA and/or kV according to patient size (this includes techniques or standardized protocols for targeted exams where dose is matched to indication/reason for exam; i.e. extremities or head) *Use of iterative reconstruction technique DLP: 1116 mGy-cm FINDINGS: Limited evaluation in the absence of intravenous contrast due to motion. LUNG BASES: Bronchovascular thickening, mosaic attenuation, trace bilateral pleural effusions and bibasilar compressive atelectasis. Partially seen cardiomegaly and calcified right hilar node. LIVER, GALLBLADDER, AND BILIARY TREE: Decreased attenuation in the liver parenchyma with equivocal mild nodularity of the contour. No discrete focal lesions in this limited noncontrast examination. Cholecystectomy. Stable mild extrahepatic biliary ductal dilatation with CBD measuring up to 1 cm in diameter. PANCREAS: Limited noncontrast examination. No main ductal dilatation. No peripancreatic inflammatory changes. SPLEEN: Normal size. ADRENAL GLANDS: No adrenal mass. KIDNEYS AND URETERS: No nephrolithiasis or hydronephrosis. No significant perinephric fat stranding. BLADDER: Limited evaluation due to motion and under distention with some equivocal diffuse wall thickening. GASTROINTESTINAL TRACT: Small hiatal hernia. The stomach and the small bowel are nondilated. No right lower quadrant or pericolonic inflammatory changes. ABDOMINAL WALL: Abdominal rectus muscle diastases. Small fat-containing umbilical hernia and small fat-containing left inguinal hernia. Stable dependent anasarca with calcifications in the posterior midline wall at the level of L2-L5. LYMPH NODES: Slightly higher density than usual nonspecific pelvic lymph nodes are not significantly changed, measuring subcentimeter in short axis for example left external iliac node measuring 0.7 cm (2:62) and right common iliac lymph node measuring 0.6 cm (2:56). VASCULAR: Atherosclerotic disease. Normal caliber abdominal aorta. PELVIC VISCERA: Unchanged subserosal approximately 2 cm lesion in the anterior uterus, most likely a fibroid. Asymmetric bowing of the right levator ani with fat protrusion (6:87) suspicious for perineal hernia or facial tear. OSSEOUS STRUCTURES: Degenerative changes of the spine. No acute or aggressive appearing osseous findings. IMPRESSION: 1. Limited evaluation in the absence of intravenous contrast and motion. 2. Bronchovascular thickening, mosaic attenuation, trace bilateral pleural effusions and bibasilar compressive atelectasis. Correlate clinically for small airways disease and pulmonary edema. 3. Hepatic steatosis with equivocal mild nodularity of the contour raising the possibility of cirrhosis. Correlate with liver function tests. 4. Possible mild diffuse urinary bladder wall thickening, consider further evaluation with urinalysis as clinically warranted. 5. Stable biliary ductal dilatation, indeterminate in a postcholecystectomy state. 6. Asymmetric bowing of the right levator ani with mild fat protrusion suspicious for a perineal hernia or facial tear. Assessment & Plan Assessment & Plan Orders: Orders AMB Post Void Residual by ultrasound 09/11/24 N39.0 - Urinary tract infection, site not specified AMB Urinalysis Automated 09/11/24 Z13.9 - Encounter for screening, unspecified Medications: New vibegron (Gemtesa) 75 mg PO DAILY 30 tabs 3RF for urine leakage Coding CPT Codes Post Residual Void - PVR CPT Code: 47879-Snua Void Residual by ultrasound ([id number])
== END 2024-09-11 10:26 | disposition home or self-care (01) ==
PROVIDERS: PCP Internal Medicine; Visit Provider Urology
DX: Z13.9 Encounter for screening, unspecified (principal)

== ENCOUNTER → 2024-09-11 08:39 | Outpatient (BNVA) | payer OTHER, SELFPAY | PROVIDERS: PCP Internal Medicine; Visit Provider Urology | DX: R32 Unspecified urinary incontinence (principal); N39.0 Urinary tract infection, site not specified; R35.0 Frequency of micturition; R10.2 Pelvic and perineal pain | CPT/HCPCS: 51798; 81003; 99202 ==

== ENCOUNTER 2024-09-12 12:19 | Outpatient (REF) | payer OTHER, SELFPAY ==
[2024-09-12 16:47] LABS: Urine Cytology See Pathology rpt
== END 2024-09-12 12:20 | disposition home or self-care (01) ==
LOC: HO.LAB 12:19
PROVIDERS: Visit Provider Urology
DX: N39.0 Urinary tract infection, site not specified (principal)
CPT/HCPCS: 87086; 88112

== ENCOUNTER 2024-09-23 10:10 | Outpatient (AMB) | payer OTHER, SELFPAY ==
[2024-09-23 10:16] VITALS: BP 132/78; PULSE 76; O2SAT 94
--- NOTE | 2024-09-23 10:16 | A.OFFVIS_ITS ---
Vital Signs 09/23/24 10:16 BP 132/78 Blood Pressure Location Rt brachial Position Sitting Pulse 76 Pulse Source Pulse Oximeter Pulse Oximetry (%) 94 Oxygen Delivery Method Nasal Cannula Oxygen Flow Rate 2 Intake Visit Reasons: Obstructive sleep apnea City Distribution Clerk Required: Yes City Distribution Clerk Services: City Distribution Clerk Present City Distribution Clerk Name: Number [id number] Allergies No Known Allergies [No Known Allergies*] Allergy (Verified 09/23/24 10:21) Medication List - Last Reconciled 09/23/24 by Judy Pickett, [employer]INE EQUIPMENT DESIGN ENGINEER albuterol sulfate 90 mcg/actuation 2 puffs inhalation Q6H PRN albuterol sulfate 2.5 mg inhalation Q6H PRN carvedilol 12.5 mg See Protocol PO BID ergocalciferol (vitamin D2) 1,250 mcg PO MO famotidine 20 mg PO BID furosemide 40 mg PO DAILY insulin glargine (Lantus U-100 Insulin) 20 units (0.2 mL) subcut BEDTIME insulin lispro (Humalog KwikPen (U-100) Insulin) 5 units subcut DAILY ketotifen fumarate 0.025%(0.035%) 1 drp ophthalmic (eye) Q12H PRN lancets (TRUEplus Lancets) As directed levofloxacin 750 mg PO DAILY losartan 50 mg PO DAILY nitrofurantoin monohyd/m-cryst 100 mg (Macrobid) 100 mg PO Q12H 7 days pantoprazole 20 mg PO DAILY@0630 pravastatin 40 mg PO BEDTIME sitagliptin phos-metformin 50-1,000 mg ER (Janumet XR) 1 tab PO DAILY vibegron (Gemtesa) 75 mg PO DAILY HPI HPI Obstructive sleep apnea: Details: 79-year-old lady, former smoker, quit over 30 years prior, with underlying history morbid obesity, NICO/obesity hypoventilation syndrome diastolic dysfunction followed for severe NICO. Patient was recently hospitalized and discharged on supplemental oxygen. Patient states that she got Inogen from her primary care provider. After the last office visit patient had a titration study and required BiPAP 25/20 which was ordered. Patient did receive her BiPAP machine and started using it with improved control of her symptoms. Unfortunately, she has a right ankle fracture and at this time can not ambulate to have 6 minute walk/oxygen evaluation. [facility] Medical History Unspecified urinary incontinence NICO (obstructive sleep apnea) CHF (congestive heart failure) 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 indication of end stage renal disease in patient 6 to 64 years of age Lymphadenopathy Abdominal pain Bursitis of right hip Osteoarthritis of right hip Restrictive ventilatory defect Dyspnea on exertion Varicose veins of right lower extremity with inflammation Pneumonitis Pulmonary hypertension Hypertensive cardiovascular disease Acute hypoxic on chronic hypercapnic respiratory failure Acute on chronic respiratory failure with hypoxemia Obesity hypoventilation syndrome GERD (gastroesophageal reflux disease) Hypertension Diabetes mellitus COPD (chronic obstructive pulmonary disease) Surgical History S/P laparoscopic cholecystectomy (07/14/21) Family History Mother Diabetes Social History Household Members: Unknown / Unable to assess Household Members Other:: cousin Housing: Unknown / Unable to assess Do you presently have visiting nurse or other home services: No Alcohol intake: never Patient Tobacco Use Status: Former Tobacco user Tobacco use type: Cigarette Years Smoked: 20 Advance Directives Date on File: 02/23/24 service: No Current occupational status: unemployed and disabled Review of Systems Const Denies daytime sleepiness, Denies excessive sweating, Denies fatigue, Denies fever(s), Denies lethargy, Denies malaise, Denies night sweats, Denies snoring and Denies weight loss Eyes Denies blurry vision and Denies itchy eyes ENT Denies nasal congestion, Denies post nasal drip, Denies sinus pain, Denies sinus pressure and Denies other ( Thrush) Card Denies chest pain, Denies pedal edema, Denies dyspnea, Denies orthopnea and Denies paroxysmal nocturnal dyspnea Resp Denies cough, Denies hemoptysis, Denies excessive phlegm production, Denies dyspnea, Denies snoring and Denies wheezing GI Denies abdominal pain and Denies heartburn Musc Denies myalgias, Denies arthralgias and Denies joint swelling Skin/Breast Denies rash Neuro Denies memory loss and Denies seizure-like activity Psych Denies abnormal sleep pattern, Denies anxiety and Denies memory loss Endo Denies excessive sweating, Denies fatigue and Denies heat intolerance Ralph/Lymph Denies easy bruising Aller/Immun Denies itchy eyes, Denies seasonal rhinorrhea and Denies wheezing Physical Exam Vital Signs: Last Vital Signs Pulse 76 09/23/24 10:16 BP 132/78 09/23/24 10:16 Pulse Ox 94 09/23/24 10:16 Oxygen Delivery Method Nasal Cannula 09/23/24 10:16 Oxygen Flow Rate 2 09/23/24 10:16 Const General: no acute distress and alert Nutritional Appearance: obese Orientation/consciousness: Other orientation findings ( oriented) HEENT Head: Yes atraumatic Eyes General: appearance normal, both eyes and all related structures Sclerae: sclerae normal EOM: EOMs intact bilaterally Neck Neck: Yes supple Lymphatic: no lymphadenopathy noted Resp Effort & Inspection: normal respiratory effort and no use of accessory muscles Auscultation: clear to auscultation bilaterally Cardio Rate: regular rate Rhythm: regular rhythm Heart sounds: no gallops, no murmurs and no rubs Skin General skin exam: other ( warm) Extrem General: No clubbing, No cyanosis and No edema Assessment & Plan Assessment & Plan (1) Supplemental oxygen dependent: Code(s): Z99.81 - Dependence on supplemental oxygen Category: Medical Plan: At this time patient is unable to perform 6 test/supplemental oxygen evaluation secondary to right foot fracture, will attempt at next visit. Continue supplemental oxygen at this time. (2) NICO (obstructive sleep apnea): Code(s): G47.33 - Obstructive sleep apnea (adult) (pediatric) Category: Medical Plan: Results of titration study reviewed, patient requires BiPAP for managing of underlying obstructive sleep apnea, which was ordered and patient had received it. She has been using her BiPAP with good control of her obstructive sleep apnea symptoms. Continue current NIPPV therapy. Coding Level of Care Code Est Pt Level 4 (37284) Diagnoses Supplemental oxygen dependent Z99.81 NICO (obstructive sleep apnea) G47.33
== END 2024-09-23 10:34 | disposition home or self-care (01) ==
PROVIDERS: PCP Internal Medicine; Visit Provider Internal Medicine Pulmonary Disease
DX: Z99.81 Dependence on supplemental oxygen (principal); G47.33 Obstructive sleep apnea (adult) (pediatric)
CPT/HCPCS: 99214

== ENCOUNTER → 2024-09-23 10:10 | Outpatient (BNVA) | payer OTHER, SELFPAY | PROVIDERS: PCP Internal Medicine; Visit Provider Internal Medicine Pulmonary Disease | DX: G47.33 Obstructive sleep apnea (adult) (pediatric) (principal); E66.9 Obesity, unspecified; Z87.891 Personal history of nicotine dependence; Z99.81 Dependence on supplemental oxygen | CPT/HCPCS: 99212 ==

== ENCOUNTER 2024-10-27 09:43 | Outpatient (REF) | payer OTHER, SELFPAY ==
--- OUTSIDE RECORDS SUMMARY | 2024-10-27 12:56 | XMS_ITS | Encounter Summary ---
Author Organization [employer] Address [address] [facility] 7t [place] [address] Care Team Providers Care Fermenting Cellars Receiver Name Role Phone Carmine Patel MD Primary Care Provider Luke Gayle PharmD Unavailable Unavail able Bárbara Rader MD Primary Care Provide r Encounter Details Date Type Department Care Team (Late Contact Info) Description 06/21/2023 Orders Only [facility] [address] [place], [place] [phone] Carmine Patel MD [address] [place], [place] [phone] Right hip pain (Primary Dx) Social History [...] Description 11/25/2024 9:00 AM EDT Office Visit [facility] 230 [place] [address] Bárbara Rader MD 230 [place] [address] documented as of this encounter Goals Goal [...] documented as of this encounter Care Teams Fermenting Cellars Receiver Relationship Specialty Start Date End Date Carmine Patel MD [address] [place] [address] PCP - General Internal Medicine 11/16/15 07/15/24 Bárbara Rader MD 230 [place] [address] PCP - General Internal Medicine 07/16/24 Luke Gayle, PharmD [address] [place] [address] Pharmacist Internal Medicine 09/04/22 [facility] 07/10/24 documented as of this encounter
--- OUTSIDE RECORDS SUMMARY | 2024-10-27 12:56 | XMS_ITS | Clinical Summary ---
Author Organization [facility] Address [address] [place] [address] Phone Care Team Providers Care Manufacturing Process Technician Name Role Phone Carmine Patel MD Primary Care Provider [phone] Allergies Active Allergy Reactions Criticality Noted Date [...] every morning 04/04/2023 Active ergocalciferol 1.25 MG (41075 UT) capsule 50,000 Units 1 (one) time [...] Visit [facility] [address] [place] [phone] Rubin Cordero MD [address] [facility] [address] [place] [address] Health Maintenance Due Date Last [...] patient's age to complete this topic Insurance [facility] ([id number]) [facility] ([id number]) ZUHAIR ROBLERO [id number] Care Teams Manufacturing Process Technician Relationship Specialty Start Date End Date Carmine Patel MD PCP - General Internal Medicine 05/02/21
--- OUTSIDE RECORDS SUMMARY | 2024-10-27 12:56 | XMS_ITS | Encounter Summary ---
Author Organization [employer] Address [address] [place] [address] Care Team Providers Care Headwaiter/Headwaitress Name Role Phone Luke Gayle PharmD Unavailable Unavail able Bárbara Rader MD Primary Care Provide r Reason for Visit * Reason Onset Date Comments Durable Medical Equipment 09/03/2024 Encounter Details Date Type Department Care Team ([facility] st Contact Info) Description 09/03/2024 Telephone [facility]INE 230 [place] [address] Bárbara Rader MD [address] [place], [place] [phone] Durable Medical Equipment Social History Tobacco Use [...] - 09/03/2024 1:40 PM EST Tc from [facility] requesting a large commode. States the one pt has is to small. Anyfurther questions may contact phone # [phone]. documented in this encounter Plan of Treatment Upcoming Encounters Date Type Department Care Team (Late st Contact Info) Description 11/25/2024 9:00 AM EDT Office Visit [facility] [address] [place] [address] Bárbara Rader MD 230 [place] [address] documented as of this encounter Goals Goal [...] documented as of this encounter Care Teams Headwaiter/Headwaitress Relationship Specialty Start Date End Date Bárbara Rader MD [address] [place] [address] PCP - General Internal Medicine 07/16/24 Luke Gayle PharmD Pharmacist Internal Medicine 09/04/22 [facility] 07/10/24 documented as of this encounter
--- OUTSIDE RECORDS SUMMARY | 2024-10-27 12:56 | XMS_ITS | Encounter Summary ---
Author Organization [employer] [facility] Address [address] [facility] 7t [place] [address] Care Team Providers Care Stemhole Borer Name Role Phone Carmine Patel MD Primary Care Provider Luke Gayle PharmD Unavailable Unavail able Bárbara Rader MD Primary Care Provide r Encounter Details Date Type Department Care Team (Latest Contact Info) Description 06/26/[address] [facility] CONVERSIONS Dental, Provider, DDS Social History [...] 11/25/2024 9:00 AM EDT Office Visit [facility] MEDICINE [address] [place], [place] [phone] Bárbara Rader MD [address] [place], [place] [phone] documented as of this encounter Visit Diagnoses Not on filedocumented in this encounter Care Teams Stemhole Borer Relationship Specialty Start Date End Date Carmine Patel MD [address] [place] [address] PCP - General Internal Medicine 11/16/15 07/15/24 Bárbara Rader MD [address] [place] [address] PCP - General Internal Medicine 07/16/24 Luke Gayle PharmD [address] [place] [phone] Pharmacist Internal Medicine 09/04/22 [facility] 07/10/24 documented as of this encounter
--- OUTSIDE RECORDS SUMMARY | 2024-10-27 12:56 | XMS_ITS | Encounter Summary ---
Author Organization [employer] Address [address] 7t [place] [address] Care Team Providers Care Registered Nurse Behavioral Health Name Role Phone Carmine Patel MD Primary Care Provider +1- [phone] Luke Gayle PharmD Unavailable Unavail able Bárbara Rader MD Primary Care Provide r Reason for Visit * Reason Onset Date Comments Nurse Triage 01/11/2024 Encounter Details Date Type Department Care Team (Late st Contact Info) Description 01/11/2024 Telephone [facility] MEDICINE [address] [place] [address] Carmine Patel MD [address] [place] [address] Nurse Triage Social History Tobacco Use Types [...] son also having weakness. Pt taken to [facility] ER on Sunday01/11/24. Pt had elevated Potassium [...] caller accepted this outcome Please contact at [phone] Latvian documented in this encounter Plan of Treatment Upcoming Encounters Date Type Department Care Team ([facility] st Contact Info) Description 11/25/2024 9:00 AM EDT Office Visit [facility] MEDICINE [address] [place] [address] Bárbara Rader MD [address] [place] [address] documented as of this encounter Goals Goal [...] of this encounter Care Teams Registered Nurse Behavioral Health Relationship Specialty Start Date End Date Carmine Patel MD [address] [place] [address] PCP - General Internal Medicine 11/16/15 07/15/24 Bárbara Rader MD [address] [place] [address] PCP - General Internal Medicine 07/16/24 Luke Gayle, PharmD [address] [place] [address] Pharmacist Internal Medicine 09/04/22 [facility] 07/10/24 documented as of this encounter
--- OUTSIDE RECORDS SUMMARY | 2024-10-27 12:56 | XMS_ITS | Encounter Summary ---
Author Organization [employer] Address [address] [facility] 7t [place] [address] Care Team Providers Care Battery Mechanic Name Role Phone Carmine Patel MD Primary Care Provider +1- [phone] Luke Gayle PharmD Unavailable Unavail able Bárbara Rader MD Primary Care Provide r Encounter Details Date Type Department Care Team (Late st Contact Info) Description 06/26/[address] [facility] MED & PEDS [address] [place], [place] [phone] Carmine Patel MD [address] [place], [place] [phone] Burning sensation (Primary Dx) Social History Tobacco [...] 11/25/2024 9:00 AM EDT Office Visit [facility] MEDICINE [address] [place] [address] [phone] Bárbara Rader MD [address] [place] [address] documented as of this encounter Goals Goal [...] documented as of this encounter Care Teams Battery Mechanic Relationship Specialty Start Date End Date Carmine Patel MD [address] [place] [address] PCP - General Internal Medicine 11/16/15 07/15/24 Bárbara Rader MD [address] [place] [address] PCP - General Internal Medicine 07/16/24 Luke Gayle PharmD [address] [place] [phone] Pharmacist Internal Medicine 09/04/22 [facility] 07/10/24 documented as of this encounter
--- OUTSIDE RECORDS SUMMARY | 2024-10-27 12:56 | XMS_ITS | Continuity of Care Document ---
Author Organization [facility] [employer] [facility] Address [address] [place] [phone] Care Team Providers Care Sample Coordinator Name Role Phone HIM [facility] OTHER [facility] OTHER Assessment No assessment recorded. Plan of Treatment Reminders Order Date Submit Date Provider Last Modified By Organization Details Last Modified Time Details Appointments None recorded. Lab None recorded. Referral None recorded. Procedures None recorded. Surgeries None recorded. Imaging None recorded. Medication Orders sulfamethox azole 800 mg-trimetho prim 160 mg tablet 2024 025 [facility], [address] [place], [place], [id number], 11:07:13 Patient TargetsNo targets recorded. Patient InstructionsNo instructions recorded. Reason for Referral None Reported. Results Created Date Observation Date Name Description Value Unit Range Abnormal Flag Note LastModifiedBy Organization Detail LastModifiedTime 10/03/19 25 10/03/2024 elect hernan diogr am No observ ation record ed. gbaci [address], [phone], 10/03/2024 18:07:20 Result Notes None recorded. Medical Equipment None Reported. Allergies Allergen ID Allergen Name Allergen Category Reaction Reaction Severity Criticality Documentation Date Start Date Code Code System Note Provider Name and Address Organization Details Recorded Time 43123 lisinopri l medicatio n Not available Not available Not available 10/03/2024 01721 RxNorm Not Available [facility] - production 14:54:18 [...] Available TechLITE Pen Needle 32 gauge x USE FOUR DAILY DIRECTED active Not Available Not Available No t Available Compact Space Chamber USE WITH INHALER DIRECTED active Not Available Not Available No t Available Gemtesa 75 mg tablet TAKE 1 TABLET BY MOUTH EVERY DAY FOR URINARY INCONTINENC E active Not Available Not Available No t Available Vitals None Recorded Social History None recorded. Functional Status None recorded. Mental Status None recorded. Family History Nothing Reported. Medical History No medical history recorded. Gynecological HistoryNo gynecological history recorded. Obstetrics History GPAL:G 0 P 0 0 0 0 Past Encounters Encounter ID Performer Location Encounter Start Date Encounter Closed Date Diagnosis/Indication Diagnosis SNOMED-CT Code Diagnosis ICD10 Code Diagnosis Note [id number] KAMRYN GERONIMO MD Main - [facility] [address] [place] [phone] 10/03/2024 16:28:44 10/03/2024 22:24:33 Contusion of orbital tissue of right eye [id number] S05.11XA Evaluation in the field was performed by my forensic science examiner colleague, as noted above, I provided real-time direction and supervisio n for this visit. Yoruba interprete r was used to communicat e [...] room air. Low-grade temperatur e, but the forensic science examiner reports that the room is very warm.Exam: Small bruising and swelling under the right eye and temporal area, with no periorbita l ecchymosis ( raccoon eyes ). No tenderness to palpation over the affected area or the bridge of the nose. Normal eye movement with no reported pain. The forensic science examiner reports rhonchi on lung examinatio n. No [...] exac erbation of chronic obstructive pulmonary disease [id number] J44.1 Patient denies shortness of breath, cough, or upper respirator y infection symptoms. The forensic science examiner reported rhonchi on lung examinatio n. On [...] the first dose administer ed by the forensic science examiner. -Due to the lack of wheezing, her stable oxygen saturation on chronic oxygen, and her history of diabetes requiring insulin, the decision was made not to start Prednisone to avoid hyperglyce daniela.-Red flags were discussed with the patient. [id number] DA MITCHELL MD [facility] - [address] [phone] 10/16/2024 20:52:29 10/21/2024 15:57:41 Headache [id number] R51.9 Pain in left arm [id number] M79.602 [id number] Mar Jiménez MD [address] [phone] 10/18/2024 15:45:59 10/21/2024 16:36:29 Altered mental status [id number] R41.82 Evaluation in the field was performed by my forensic science examiner colleague, as noted above, I provided real-time direction and supervisio n for this visit. 79 yo F PMHx HTN, CAD, T2DM, COPD on 2L home O2 p/w ongoing ANGELO, body aches for which she was seen yesterday by [facility]. Repeat visit requested by son as pt awoke this AM and felt confused, spontaneou sly resolved. Triage note reports dizziness however pt denies this. ANGELO resolved. Endorsed urinary frequency without dysuria, fevers, hematuria. On forensic science examiner eval VS wnl, exam wnl including A+O [...] endorsed ongoing L shoulder/a rm pain. On forensic science examiner exam not swelling or deformity, rotator cuff [...] shortness of breath, cough, chest pain, fever. [id number] Sayra Arevalo MD Main - [facility] [address] [place] [phone] 10/21/2024 15:55:58 10/21/2024 17:31:04 Urinary symptoms [id number] R39.9 Health Concerns Section Related Observation LastModified by Organization Detai ls LastModified Time None Recorded Concern Status LastModified by Organization Details LastModified Time None Recorded Payers Encounter Date Sequence Insurance Name Policy Number Policy Elizondo Covered Member ID Elizondo Member ID Guarantor Name 10/21/2024 1 [facility] - DOS ON OR AFTER 2022 - DUAL ELIGIBLE - PENITENTIARY OPTIONS AND ONE CARE (MEDICARE REPLACEMENT/ADV ANTAGE - HMO) Magalie Stein [id number] Magalie Stein OBGyn Episode No OBEpisode recorded.
--- OUTSIDE RECORDS SUMMARY | 2024-10-27 12:56 | XMS_ITS | Clinical Summary ---
Author Organization [employer] Address [address] 7t [place] [address] Care Team Providers Care Switchboard Installer Name Role Phone Luke Gayle PharmD Unavailable [...] each 3 024 2024 Active Continuous Glucose Vending Technician (FreeStyle Silvana 2 [place]) deviceIndications :Type 2 diabetes mellitus with other [...] 2024 Active Blood Glucose Monitoring Suppl (FreeStyle [place] Lite) w/Device kitIndications:Ty pe 2 diabetes mellitus with other specified complication, without long-term current use of insulin (CMS/HCC) Use to test blood sugar 2 times daily 1 kit Active ergocalciferol (Vitamin D2) 1.25 MG (89423 UT) capsule TAKE ONE CAPSULE EVERY WEEK [...] complication, without long-term current use of insulin ([facility]) TEST BLOOD SUGAR TWICE DAILY 100 each [...] 2 diabetes mellitus with other circulatory complications ([facility]) TAKE ONE TABLET EVERY EVENING WITH FOOD [...] Team Description 10/16/2024 Telephone C MEDICINE [address] [place] [address] Bárbara Rader MD Nurse Triage 10/10/2024 Refill [facility] MEDICINE [address] [place] [address] Carmine Patel MD Type 2 diabetes mellitus with other circulatory complications ([facility]) 10/03/2024 Telephone C MEDICINE [address] [place] [address] Bárbara Rader MD Durable Medical Equipment 10/03/2024 Telephone C MEDICINE [address] [place] [address] Bárbara Rader MD Nurse Triage 10/02/2024 Refill [facility] [address] [place] [address] Bárbara Rader MD 09/30/2024 Telephone C MEDICINE [address] [place] [address] Jae Keen [place] Durable Medical Equipment 09/19/2024 Telephone C MEDICINE [address] [place] [address] Bárbara Rader MD Appointment Request 09/15/2024 Telephone C MEDICINE [address] [place] [address] Bárbara Rader MD Appointment Request 09/03/2024 Telephone [facility] [address] [place] [address] Bárbara Rader MD Durable Medical Equipment 08/11/2024 Telephone C MEDICINE [address] [place] [address] Bárbara Rader MD 08/08/2024 Telephone C MEDICINE [address] [place] [address] Bárbara Rader MD 08/06/2024 Orders Only [facility] MED[facility]INE [address] [place] [address] Bárbara Rader MD 08/05/2024 1:15 PM EST Office Visit [facility] [place] [address] Bárbara Rader MD UTI symptoms (Primary Dx); Type 2 diabetes mellitus with other specified complication, without long-term current use of insulin ([facility]); Recurrent UTI 08/05/2024 Travel from Last 3 [...] seasonal, injecta ble, preservative free 05/28/2020 Novel [id number], all formulations 05/15/2016 Pneumococcal Conjugate PCV 13 [...] Description 11/25/2024 9:00 AM EDT Office Visit [facility] MEDICINE [address] [place] [address] Bárbara Rader MD [address] [facility] [place] [address] Health Maintenance Due Date Last Done Comments [...] (08/06/2024 9:21 AM EST) Color Urine Yellow [facility] Appearance Urine Cloudy [facility] PH 5.5 5.0 - 9.0 [facility] Glucose Urine UA Negative Negative mg/dL [facility] Urine Blood Trace(A) Negative [facility] Specific [place] - Urine 1.010 1.005 - 1.025 [facility] Urine Protein Negative Neg-Trace mg/dL [facility] Urine Ketones Negative Negative mg/dL [facility] Nitrite Urine Negative Negative [facility] Leukocyte Esterase Urine Large (3+)(A) Negative [facility] RBC Urine 0-2 0 - 2 /HPF [facility] Urine WBC >50(A) 0 - 5 /HPF [facility] Urine Squamous Epithelial Cell 3-5 0 - 2 /HPF [facility] Urine Bacteria 1+ None Seen [facility] Hyaline Casts, Urine 0-2 0 - 2 /LPF [facility] 08/06/2024 9:21 AM EST 08/06/2024 11:45 AM EST Narrative [facility] - 08/06/2024 12:04 PM EST Urine, Clean Catch us Bárbara Raymundo MD LAB URINE ORDERABLES Final Result Performing Organization Address [facility]/State/ZIP Co de Phone Number [facility] [address] [place] [phone] * Culture, Urine, Routine (08/06/2024 12:00 AM EST) Urine Urine specimen obtained by clean catch procedure / Unknown 08/06/2024 08/06/2024 Comment:CC Narrative [facility] - 08/07/2024 1:22 PM EST Urine Culture Report Result Urine Culture 10,000 to 50,000 cfu/ml Urine Culture Mixed bacterial stef characteristic of Urine Culture urogenital contamination. Specimen Source: Urine clean catch Bárbara Raymundo MD LAB MICROBIOLOGY - GE NERAL ORDERABLES Final Result Performing Organization Address [facility] Co de Phone Number [facility] [address] [place] [address] [phone] * Referral to Urology (08/06/2024) Bárbara [...] Real-Time PCR (06/20/2024 2:54 PM EDT) Pathologist [facility] Hepatitis C Antibody Nonreactive Nonreactive [facility] Comment:Antibodies to HCV no t detected; does not exclude early acuteHCV infection. Blood Venous blood specimen / Unknown 06/20/2024 2:54 PM EDT 06/20/2024 2:54 PM EDT us Carmine Patel MD LAB BLOOD ORDERABLES Final Result Performing Organization Address City/[facility]/ZIP Co de Phone Number [facility] [address] [place] [address] [phone] * Lipid Panel, Standard (06/20/2024 2:54 PM EDT) Triglycerides 81 <150 mg/dL [facility] Comment:Desirable Triglyceri de: less than 150 mg/dLBorderline High Triglyceride 150-199 mg/dLHigh Triglyceride: 200-499 mg/dLVery High Triglyceride: greater than or equal to 5OO mg/dL Cholesterol 152 <200 mg/dL [facility] Comment:Desirable Cholestero l: less than 200 mg/dLBorderline High Cholesterol: 200-239 mg/dLHigh Cholesterol: greater than 239 mg/dL LDL Cholesterol Calculated 86 <100 mg/dL [facility] Comment:Desirable LDL: less than 100 mg/dLNear Optimal/Above Optimal LDL: 110- 129 mg/dLBorderline High LDL: 130-159 mg/dLHigh LDL: 160-189 mg/dLVery High LDL: greater than or equal to 190 mg/dL HDL Cholesterol 50 >40 mg/dL [facility] Comment:Desirable HDL: great er than 40 mg/dL Note: This HDL assay may give artificially low results in patients with liver disease. Blood Venous blood specimen / Unknown 06/20/2024 2:54 PM EDT 06/20/2024 2:54 PM EDT us Carmine Patel MD LAB BLOOD ORDERABLES Final Result Performing Organization Address [facility] Co de Phone Number [facility] [address] [place] [phone] * (ABNORMAL) Albumin, Random Urine W/Creatinine (06/20/2024 1:00 PM EDT) Creatinine, Urine 35.87 mg/dL [facility] Microalbumin Urine 19.0 mg/L [facility] Microalbum Creatinine Ratio Ur 52.9(H) <30 ug/mg cr [facility] Comment:Albumin/Creatinine R atio Reference Ranges: Normal: < 30 ug/mg creatinine Microalbuminuria: 30 - 300 ug/mg creatinineClinical Albuminuria: > 300 ug/mg creatinine Urine (Urine, Random) 06/20/2024 1:00 PM EDT 06/20/2024 3:09 PM EDT us Carmine Patel MD LAB URINE ORDERABLES Final Result Performing Organization Address [facility] Co de Phone Number [facility] [address] [place] [phone] * (ABNORMAL) POCT HGB A1C (06/03/2024 11:36 AM EDT) Hemoglobin A1C 7.0(A) 4.0 - 6.0 % QC Media Lot # [id number] Lot# Expiration Date ,588,[id number] Blood 06/03/2024 11:3 6 AM EDT Carmine Patel MD POINT OF CARE TEST ENTER/ED IT ORDERABLES Final Result from Last 3 Months or Most Recently Relevant to Health Maintenance Insurance [facility] Care Teams Switchboard Installer Relationship Specialty Start Date End Date Bárbara Rader MD [address] [place] [phone] PCP - General Internal Medicine 07/16/24 Luke Gayle, PharmD Pharmacist Internal Medicine 09/04/22 [facility] 07/10/24
--- OUTSIDE RECORDS SUMMARY | 2024-10-27 12:56 | XMS_ITS | Encounter Summary ---
Author Organization [employer] Address [address] [facility] 7t [place] [address] Care Team Providers Care Sap Bpc Developer Name Role Phone Carmine Patel MD Primary Care Provider [phone]- [phone] Luke Gayle PharmD Unavailable Unavail able Bárbara Rader MD Primary Care Provide r Reason for Visit * Reason Onset Date Comments FYI 02/15/2024 Encounter Details Date Type Department Care Team ([facility] st Contact Info) Description 02/15/2024 Telephone [facility] MED & PEDS [address] [place], [place] [phone] Carmine Patel MD [address] [place], [place] [phone] FYI Social History Tobacco Use Types Packs/Day [...] - 02/15/2024 3:07 PM EDT Tc from [facility] with Tiffany calling to report pt has been discharged as of today from home PT. documented in this encounter Plan of Treatment Upcoming Encounters Date Type Department Care Team (Late st Contact Info) Description 11/25/2024 9:00 AM EDT Office Visit [facility] MEDICINE [address] [place] [phone] Bárbara Rader MD [address] [place] [address] documented as of this encounter Goals Goal [...] documented as of this encounter Care Teams Sap Bpc Developer Relationship Specialty Start Date End Date Carmine Patel MD [address] [place] [address] PCP - General Internal Medicine 11/16/15 07/15/24 Bárbara Rader MD [address] [place] [phone] PCP - General Internal Medicine 07/16/24 Luke Gayle, Shan [address] [place] [phone] Pharmacist Internal Medicine 09/04/22 [facility] 07/10/24 documented as of this encounter
--- OUTSIDE RECORDS SUMMARY | 2024-10-27 12:57 | XMS_ITS | Encounter Summary ---
Author Organization [employer] Address [address] [facility] [address]t [place] [address] Care Team Providers Care Gritting Machine Operator Name Role Phone Luke Gayle PharmD Unavailable Unavail able Bárbara Rader MD Primary Care Provide r Reason for Visit * Reason Onset Date Comments Med refill 10/02/2024 Encounter Details Date Type Department Care Team (Late st Contact Info) Description 10/02/2024 Refill [facility] MEDICINE [address] [place], [place] [phone] Bárbara Rader MD [address] [place], [place] [phone] Social History Tobacco Use Types Packs/Day Years [...] pt did not like the continuous glucose can closing machine operator and returned them to the pharmacy. documented in this encounter Plan of Treatment Upcoming Encounters Date Type Department Care Team (Late st Contact Info) Description 11/25/2024 9:00 AM EDT Office Visit [facility] MEDICINE [address] [place] [address] Bárbara Rader MD [address] [place], [place] [phone] documented as of this encounter Goals Goal [...] documented as of this encounter Care Teams Gritting Machine Operator Relationship Specialty Start Date End Date Bárbara Rader MD [address] [place] [phone] PCP - General Internal Medicine 07/16/24 Luke Gayle, PharmD Pharmacist Internal Medicine 09/04/22 [facility] 07/10/24 documented as of this encounter
--- OUTSIDE RECORDS SUMMARY | 2024-10-27 12:57 | XMS_ITS | Encounter Summary ---
Author Organization [employer] Address [address] [facility] 7t [place] [address] Care Team Providers Care Bowling Ball Molder Name Role Phone Carmine Patel MD Primary Care Provider +1- [phone] Luke Gayle PharmD Unavailable Unavail able Bárbara Rader MD Primary Care Provide r Encounter Details Date Type Department Care Team (Late st Contact Info) Description 02/14/2024 Orders Only [facility] MED & PEDS [address] [place], [place] [phone] Carmine Patel MD [address] [place], [place] [phone] Type 2 diabetes mellitus with other specified complication, without long-term current use of insulin ([facility]) (Primary Dx) Social History Tobacco Use Types [...] Description 11/25/2024 9:00 AM EDT Office Visit [facility] [address] [place] [address] Bárbara Rader MD [address] [place] [address] documented as of this encounter Goals Goal [...] EDT Narrative 03/31/2024 9:51 AM EDT ? [facility] ?[address] ?[place] [address] ?XRay Report ? Signed ? Patient: Calos Civico,Patricia ?MR#: [id number] ?? [id number] ? : 1945 ?Acct:[id number] ? Age/Sex: 78 / F ?ADM Date: 03/13/24 ? Loc: HO.XRAY ? Attending Dr: Ofelia Ly PROTECTIVE SIGNAL INSTALLER HELPER ? Ordering Physician: Saleem Young PA-C ?? Date of Service: 03/13/24 ?? Procedure(s): XR ankle RT min 3V ?? Accession Number(s): [id number] ? cc: Carmine Patel MD; Saleem Young [...] 0949 ? DD/ 0946 ? TD/TT: ? Records Management Assistant: ? Procedure Note Luhter, Image - 03/31/[address] [address] XRay Report Signed Patient: Magalie Solis MMR#: [id number] : 6Acct:[id number] Age/Sex: 78 / FADM Date: 03/13/24 Loc: LIVIER Attending Dr: Ofelia Ly NP Ordering Physician: Saleem Young PA-C Date of Service: 03/13/24 Procedure(s): XR ankle RT min 3V Accession Number(s): [id number] cc: Carmine Patel MD; Saleem Young PA-C [...] MD in OV> 03/31/2449 DD/ 5 TD/TT: Records Management Assistant: [facility] External Provider IMG XR PROCEDURES Final Result * BI Mammogram Additional Views Right (03/12/2024 2:15 PM EDT) Anatomical Region Laterality Modality Breast Right Mammography 03/12/2024 2:15 PM EDT Narrative 03/12/2024 3:08 PM EDT ? [facility] [place] ? [address] ?[place] [address] ? Mammography Report ? Signed ? Patient: Magalie Live ?MR#: [id number] ?? [id number] ? : 1945 ?Acct:[id number] ? Age/Sex: 78 / F ?ADM Date: 03/12/24 ? Loc: HO.MAMMO ? Attending Dr: Carmine Patel MD ? Ordering Physician: Carmine Patel MD ?Results: 2 ?? Benign Findings ? Date of Service: 03/12/24 ?Follow Up: 1 Year From Orig ?? inal Mammogram ? Procedure(s): MM added views RT ?? Accession Number(s): [id number] ? cc: Carmine Patel MD ? EXAMINATION: [...] 1504 ? DD/ 1415 ? TD/TT: ? Records Management Assistant: ? Procedure Note Dara Sanchez - 03/12/2024 [facility] [address] [place] [address] Mammography Report Signed Patient: CalosMagalie MMR#: [id number] : 6Acct:[id number] Age/Sex: 78 / FADM Date: 03/12/24 Loc: HO.MAMMO Attending Dr: Carmine Patel MD Ordering Physician: Carmine Patel MDResults: 2 Benign Findings Date of Service: 03/12/24Follow Up: 1 Year From [facility] ina Mammogram Procedure(s): MM added views RT Accession Number(s): [id number] cc: Carmine Patel MD EXAMINATION: MM DIAGNOSTIC [...] in OV> 03/12/24 1504 DD/ 1415 TD/TT: Records Management Assistant: us Carmine Patel MD IMG BI PROCEDURES Final Res ult documented in this encounter Visit Diagnoses Diagnosis Type 2 diabetes mellitus with other specified complication, without long-term current use of insulin ([facility])- Primary documented in this encounter Additional Health Concerns Assessment Noted Time PHQ-9 Depression Total Score: 0 10/09/19 23 11:12 AM EST documented as of this encounter Care Teams Bowling Ball Molder Relationship Specialty Start Date End Date Carmine Patel MD [address] [place] [address] PCP - General Internal Medicine 11/16/15 07/15/24 Bárbara Rader MD [address] [place] [address] PCP - General Internal Medicine 07/16/24 Luke Gayle PharmD [address] [place] [address] Pharmacist Internal Medicine 09/04/22 [facility] 07/10/24 documented as of this encounter
--- OUTSIDE RECORDS SUMMARY | 2024-10-27 12:57 | XMS_ITS | Encounter Summary ---
Author Organization [employer] Address [address] [facility] [address] 7t [place] [address] Care Team Providers Care Network Developer Name Role Phone Luke Gayle PharmD Unavailable Unavail able Bárbara Rader MD Primary Care Provide r Reason for Visit * Reason Onset Date Comments Durable Medical Equipment 09/30/2024 Encounter Details Date Type Department Care Team (Late st Contact Info) Description 09/30/2024 Telephone [facility] [address] [place] [address] Jae Keen [place] Durable Medical Equipment Social [...] 9:00 AM EDT Office Visit [facility] [address] [place] [address] Bárbara Rader MD 230 [place] [address] documented as of this encounter Goals Goal [...] documented as of this encounter Care Teams Network Developer Relationship Specialty Start Date End Date Bárbara Rader MD [address] [place] [address] PCP - General Internal Medicine 07/16/24 Luke Gayle PharmD Pharmacist Internal Medicine 09/04/22 [facility] 07/10/24 documented as of this encounter
--- OUTSIDE RECORDS SUMMARY | 2024-10-27 12:57 | XMS_ITS | Encounter Summary ---
Author Organization [employer] Address 75 [facility] 7t [place] [address] Care Team Providers Care Injection Molder Name Role Phone Carmine Patel MD Primary Care Provider +1- [phone] Luke Gayle PharmD Unavailable Unavail able Bárbara Rader MD Primary Care Provide r Encounter Details Date Type Department Care Team (Late st Contact Info) Description 06/11/2024 Orders Only [facility] MED [facility] PEDS [address] [place], [place] [phone] Carmine Patel MD [address] [place], [place] [phone] Pruritus (Primary Dx) Social History Tobacco Use [...] Description 11/25/2024 9:00 AM EDT Office Visit [facility] [address] [place] [address] Bárbara Rader MD [address] [place] [address] documented as of this encounter Goals Goal [...] documented as of this encounter Care Teams Injection Molder Relationship Specialty Start Date End Date Carmine Patel MD [address] [place] [address] PCP - General Internal Medicine 11/16/15 07/15/24 Bárbara Rader MD [address] [place] [address] PCP - General Internal Medicine 07/16/24 Luke Gayle PharmD [address] [place] [address] Pharmacist Internal Medicine 09/04/22 [facility] 07/10/24 documented as of this encounter
--- OUTSIDE RECORDS SUMMARY | 2024-10-27 12:57 | XMS_ITS | Encounter Summary ---
Author Organization [employer] Address [address] [facility] [address] 7t [place] [address] Care Team Providers Care Forestry Contractor Name Role Phone Carmine Patel MD Primary Care Provider +1- [phone] Luke Gayle PharmD Unavailable Unavail able Bárbara Rader MD Primary Care Provide r Reason for Visit * Reason Onset Date Comments Call Back Request 02/06/2024 Encounter Details Date Type Department Care Team (Late st Contact Info) Description 02/06/2024 Telephone [facility] [address] [place] [address] Carmine Patel MD 505 [place] [address] Call Back Request Social History Tobacco Use [...] 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 Advised son on PCP recommendations for sleep [...] and nothing is happening Please contact at [phone] documented in this encounter Plan of Treatment Upcoming Encounters Date Type Department Care Team (Late st Contact Info) Description 11/25/2024 9:00 AM EDT Office Visit [facility] [address] [place] [address] Bárbara Rader MD 230 [place] [address] documented as of this encounter Goals Goal [...] documented as of this encounter Care Teams Forestry Contractor Relationship Specialty Start Date End Date Carmine Patel MD 505 [place] [address] PCP - General Internal Medicine 11/16/15 07/15/24 Bárbara Rader MD [address] [place] [address] PCP - General Internal Medicine 07/16/24 Luke Gayle, PharmD 505 [place] [address] Pharmacist Internal Medicine 09/04/22 [facility] 07/10/24 documented as of this encounter
--- OUTSIDE RECORDS SUMMARY | 2024-10-27 12:57 | XMS_ITS | Encounter Summary ---
Author Organization [employer] Address [address] [facility] [address] 7t [place] [address] Care Team Providers Care Client Support Manager Name Role Phone Luke Gayle PharmD Unavailable Unavail able Bárbara Rader MD Primary Care Provide r Reason for Visit * Reason Comments Med Refill Encounter Details Date Type Department Care Team (Late st Contact Info) Description 10/10/2024 Refill [facility] 230 [place] [address] Carmine Patel MD 505 [place] [address] Type 2 diabetes mellitus with other circulatory [...] Visit [facility]INE [address] [place] [address] Bárbara Rader MD 230 [place] [address] documented as of this encounter Goals Goal [...] documented as of this encounter Care Teams Client Support Manager Relationship Specialty Start Date End Date Bárbara Rader MD 230 [place] [address] PCP - General Internal Medicine 07/16/24 Luke Gayle, PharmD Pharmacist Internal Medicine 09/04/22 [facility] 07/10/24 documented as of this encounter
--- OUTSIDE RECORDS SUMMARY | 2024-10-27 12:57 | XMS_ITS | Encounter Summary ---
Author Organization [employer] Address [address] [facility] [address] 7t [place] [address] Care Team Providers Care Church Supervisor Name Role Phone Carmine Patel MD Primary Care Provider Luke Gayle PharmD Unavailable Unavail able Bárbara Rader MD Primary Care Provide r Reason for Visit * Reason Onset Date Comments FYI 05/07/2024 Encounter Details Date Type Department Care Team (Late st Contact Info) Description 05/07/2024 Telephone [facility] MED[facility]INE [address] [place] [address] Carmine Patel MD [address] [place] [address] FYI Social History Tobacco Use Types Packs/Day [...] any questions you can contact Terence at [phone]. documented in this encounter Plan of Treatment Upcoming Encounters Date Type Department Care Team (Late st Contact Info) Description 11/25/2024 9:00 AM EDT Office Visit [facility] [address] [place] [address] Bárbara Rader MD 230 [place] [address] documented as of this encounter Goals Goal [...] documented as of this encounter Care Teams Church Supervisor Relationship Specialty Start Date End Date Carmine Patel MD [address] [place] [address] PCP - General Internal Medicine 11/16/15 07/15/24 Bárbara Rader MD [address] [place] [address] PCP - General Internal Medicine 07/16/24 Luke Gayle, PharmD [address] [place] [address] Pharmacist Internal Medicine 09/04/22 [facility] 07/10/24 documented as of this encounter
--- OUTSIDE RECORDS SUMMARY | 2024-10-27 12:57 | XMS_ITS | Encounter Summary ---
Author Organization [employer] Address [address] [facility] 7t [place] [address] Care Team Providers Care Iron Worker Apprentice Name Role Phone Carmine Patel MD Primary Care Provider +1- [phone] Luke Gayle PharmD Unavailable Unavail able Bárbara Rader MD Primary Care Provide r Encounter Details Date Type Department Care Team (Late st Contact Info) Description 01/18/2024 Orders Only [facility] MED & PEDS [address] [place], [place] [phone] Carmine Patel MD 505 [place], [place] [phone] Urinary incontinence, unspecified type (Primary Dx) Social [...] Description 11/25/2024 9:00 AM EDT Office Visit [facility] [address] [place] [address] Bárbara Rader MD [address] [place] [address] documented as of this encounter Goals Goal [...] (06/20/2024 1:00 PM EDT) Color Urine Yellow [facility] Appearance Urine Cloudy [facility] PH 6.5 5.0 - 9.0 [facility] Glucose Urine UA Negative Negative mg/dL [facility] Urine Blood Trace(A) Negative [facility] Specific [place] - Urine 1.010 1.005 - 1.025 [facility] Urine Protein Negative Neg-Trace mg/dL [facility] Urine Ketones Negative Negative mg/dL [facility] Nitrite Urine Negative Negative [facility] Leukocyte Esterase Urine Large (3+)(A) Negative [facility] RBC Urine 0-2 0 - 2 /HPF [facility] Urine WBC >50(A) 0 - 5 /HPF [facility] Urine Squamous Epithelial Cell 0-2 0 - 2 /HPF [facility] Urine Bacteria 4+ None Seen [facility] Hyaline Casts, Urine 0-2 0 - 2 /LPF [facility] Urine 06/20/2024 1:00 PM EDT 06/20/2024 3:09 PM EDT Narrative [facility] - 06/20/2024 3:25 PM EDT Urine, Clean Catch Carmine Patel MD LAB URINE ORDERABLES Final Result Performing Organization Address City/State/[facility] Co de Phone Number [facility] [address] [place] [address] [phone] documented in this encounter Visit Diagnoses Diagnosis Urinary incontinence, unspecified type- Primary documented in this encounter Additional Health Concerns Assessment Noted Time PHQ-9 Depression Total Score: 0 10/09/19 23 11:12 AM EST documented as of this encounter Care Teams Iron Worker Apprentice Relationship Specialty Start Date End Date Carmine Patel MD [address] [place] [address] PCP - General Internal Medicine 11/16/15 07/15/24 Bárbara Rader MD [address] [place] [address] PCP - General Internal Medicine 07/16/24 Luke Gayle, JarettD [address] [place] [address] Pharmacist Internal Medicine 09/04/22 [facility] 07/10/24 documented as of this encounter
--- OUTSIDE RECORDS SUMMARY | 2024-10-27 12:57 | XMS_ITS | Encounter Summary ---
Author Organization [employer] Address [address] [facility] [address] 7t [place] [address] Care Team Providers Care Lab Instructor Name Role Phone Luke Gayle PharmD Unavailable Unavail able Bárbara Rader MD Primary Care Provide r Reason for Visit * Reason Onset Date Comments Durable Medical Equipment 10/03/2024 Encounter Details Date Type Department Care Team ([facility] st Contact Info) Description 10/03/2024 Telephone [facility] [address] [place], [place] [phone] Bárbara Rader MD [address] [place], [place] [phone] Durable Medical Equipment Social History Tobacco Use [...] Tc from pt son requesting standing yamileth. [phone] cook islander documented in this encounter Plan of Treatment Upcoming Encounters Date Type Department Care Team (Late st Contact Info) Description 11/25/2024 9:00 AM EDT Office Visit [facility] [address] [place] [address] Bárbara Rader MD 230 [place] [address] documented as of this encounter Goals Goal [...] documented as of this encounter Care Teams Lab Instructor Relationship Specialty Start Date End Date Bárbara Rader MD [address] [place] [address] PCP - General Internal Medicine 07/16/24 Luke Gayle PharmD Pharmacist Internal Medicine 09/04/22 [facility] 07/10/24 documented as of this encounter
--- OUTSIDE RECORDS SUMMARY | 2024-10-27 12:57 | XMS_ITS | Encounter Summary ---
Author Organization [employer] Address [address] [facility] [address] 7t [place] [address] Care Team Providers Care Drawer In Dobby Loom Name Role Phone Luke Gayle PharmD Unavailable Unavail able Bárbara Rader MD Primary Care Provide r Reason for Visit * Reason Onset Date Comments Nurse Triage 10/03/2024 Encounter Details Date Type Department Care Team ([facility] st Contact Info) Description 10/03/2024 Telephone [facility] MEDICINE [address] [place], [place] [phone] Bárbara Rader MD [address] [place], [place] [phone] Nurse Triage Social History Tobacco Use Types [...] 10:47 AM EST TC placed to patient [phone] the wireless caller you are calling is not available . RN unableto leave . TC placed to [phone] via [employer] interpreters (Esdras #[id number]) in regards to instED visit. Per instED visit : Acute exacerbation of chronic obstructive pulmonary disease - Patient denies shortness of breath, cough, or upper respiratory infection symptoms. The soap inspector reported rhonchi on lung examination. On her [...] with the first dose administered by the soap inspector. - Due to the lack of wheezing, her stable oxygen saturation on chronic oxygen, and her history of diabetes requiring insulin, the decision was made not to start Prednisone to avoid hyperglycemia. Patient reports she has p/u abx from the pharmacy however did not p/u albuterol inhaler. Patient was not aware inhaler was sent to the pharmacy. R advised patient to return to [facility] pharmacy to obtain inhaler. Patient confirms she is taking abx as rx'd. Patient advised to continue taking abx as rx'd and if s/s do not resolve upon completion to call [facility] for a d/u appointment. Patient verbalized understanding. Patient to f/u PRN. * Telephone Encounter - Laura Cook RN - 10/03/2024 2:54 PM EST [...] acuity questions The caller accepted this outcome. [phone] [place] Citizen documented in this encounter Plan of Treatment Upcoming Encounters Date Type Department Care Team (Late st Contact Info) Description 11/25/2024 9:00 AM EDT Office Visit [facility] MEDICINE [address] [place], [place] [phone] Bárbara Rader MD [address] [place], [place] [phone] documented as of this encounter Goals Goal [...] documented as of this encounter Care Teams Drawer In Dobby Loom Relationship Specialty Start Date End Date Bárbara Rader MD [address] [place] [address] PCP - General Internal Medicine 07/16/24 Luke Gayle, PharmD Pharmacist Internal Medicine 09/04/22 [facility] 07/10/24 documented as of this encounter
--- OUTSIDE RECORDS SUMMARY | 2024-10-27 12:57 | XMS_ITS | Encounter Summary ---
Author Organization [employer] Address [address] [facility] [address] 7t [place] [address] Care Team Providers Care Dog Groomer Name Role Phone Luke Gayle PharmD Unavailable Unavail able Bárbara Rader MD Primary Care Provide r Reason for Visit * Reason Onset Date Comments Nurse Triage 10/16/2024 Encounter Details Date Type Department Care Team ([facility] st Contact Info) Description 10/16/2024 Telephone [facility] MEDICINE [address] [place], [place] [phone] Bárbara Rader MD [address] [place], [place] [phone] Nurse Triage Social History Tobacco Use Types [...] caller accepted this outcome. Contact pt at [phone] (Tanzanian) documented in this encounter Plan of Treatment Upcoming Encounters Date Type Department Care Team (Late st Contact Info) Description 11/25/2024 9:00 AM EDT Office Visit [facility] MEDICINE [address] [place] [address] Bárbara Rader MD [address] [place] [address] documented as of this encounter Goals Goal [...] documented as of this encounter Care Teams Dog Groomer Relationship Specialty Start Date End Date Bárbara Rader MD [address] [place] [address] PCP - General Internal Medicine 07/16/24 Luke Gayle, PharmD Pharmacist Internal Medicine 09/04/22 [facility] 07/10/24 documented as of this encounter
--- OUTSIDE RECORDS SUMMARY | 2024-10-27 12:57 | XMS_ITS | Encounter Summary ---
Author Organization [employer] Address [address] [facility] 7[address] [place] [address] Care Team Providers Care Publication Distributor Name Role Phone Carmine Patel MD Primary Care Provider +1- [phone] Luke Gayle PharmD Unavailable Unavail able Bárbara Rader MD Primary Care Provide r Reason for Referral * Consultation (Routine) - Closed Specialty Diagnoses / Procedures Referred By Alden andres Referred To Contact Physical Therapy Diagnoses Acute right ankle pain Carmine Patel MD [address] [place] [address] Phone: tel: fax: [facility] [address] [place] [address] Phone: tel: fax: Referral ID Status Reason Start Date Expiration Date V isits Requested Visits Authorized [id number] Closed Specialty Services Required 03/28/2024 03/28/2025 1 1 Encounter Details Date Type Department Care Team (Late st Contact Info) Description 03/24/2024 Orders Only [facility] MED & [facility]EDS [address] [place], [place] [phone] Carmine Patel MD [address] [place], [place] [phone] Acute right ankle pain (Primary Dx) Social [...] 9:00 AM EDT Office Visit [facility] MED[facility] [address] [place] [address] Bárbara Rader MD 230 [place] [address] Scheduled Orders Name Type Priority Associated Diagnoses [...] EDT Narrative 03/28/2024 12:12 PM EDT ? [facility] ?[address] ?[place] [address] ?XRay Report ? Signed ? Patient: Magalie Solis ?MR#: MM ?? [id number] ? : 1945 ?Acct:[id number] ? Age/Sex: 78 / F ?ADM Date: 03/28/24 ? Loc: HO.ED ? Attending Dr: ? Ordering Physician: Elzbieta Franz ?? Date of Service: 03/28/24 ?? Procedure(s): XR knee RT 4V ?? Accession Number(s): [id number] ? cc: Carmine Patel MD; Elzbieta Franz [...] 1208 ? DD/ 1151 ? TD/TT: ? Sample Tester: ? Procedure Note Donjenifferinterpreter, Image - 03/28/[address] [address] XRay Report Signed Patient: Magalie Solis MMR#: [id number] : 6Acct:[id number] Age/Sex: 78 / FADM Date: 03/28/24 Loc: HO.ED Attending Dr: Ordering Physician: Elzbieta Franz Date of Service: 03/28/24 Procedure(s): XR knee RT 4V Accession Number(s): [id number] cc: Carmine Patel MD; Elzbieta Franz EXAMINATION: [...] in OV> 03/28/24 1208 DD/ 1151 TD/TT: Sample Tester: [facility] External Provider IMG XR PROCEDURES Final Result documented in this encounter Visit Diagnoses Diagnosis Acute right ankle pain- Primary documented in this encounter Additional Health Concerns Assessment Noted Time PHQ-9 Depression Total Score: 0 10/09/19 23 11:12 AM EST documented as of this encounter Care Teams Publication Distributor Relationship Specialty Start Date End Date Carmine Patel MD [address] [place] [address] PCP - General Internal Medicine 11/16/15 07/15/24 Bárbara Rader MD [address] [place] [address] PCP - General Internal Medicine 07/16/24 Luke Gayle PharmD [address] [place] [address] Pharmacist Internal Medicine 09/04/22 [facility] 07/10/24 documented as of this encounter
--- OUTSIDE RECORDS SUMMARY | 2024-10-27 12:57 | XMS_ITS | Encounter Summary ---
Author Organization [employer] Address [address] [place] [address] Care Team Providers Care Invasive Physician Name Role Phone Luke Gayle PharmD Unavailable Unavail able Bárbara Rader MD Primary Care Provide r Reason for Visit * Reason Onset Date Comments Appointment Request 09/15/2024 Encounter Details Date Type Department Care Team ([facility] st Contact Info) Description 09/15/2024 Telephone [facility] [address] [place], [place] [phone] Bárbara Rader MD [address] [place], [place] [phone] Appointment Request Social History Tobacco Use Types [...] 11/25/2024 9:00 AM EDT Office Visit [facility] [address] [place] [address] Bárbara Rader MD [address] [place] [address] documented as of this encounter Goals Goal [...] documented as of this encounter Care Teams Invasive Physician Relationship Specialty Start Date End Date Bárbara Rader MD [address] [place] [id number] PCP - General Internal Medicine 07/16/24 Luke Gayle PharmD Pharmacist Internal Medicine 09/04/22 [facility] 07/10/24 documented as of this encounter
== END 2024-10-27 09:44 | disposition home or self-care (01) ==
LOC: HO.LAB 09:43
PROVIDERS: PCP Internal Medicine; Visit Provider Urology
DX: N39.0 Urinary tract infection, site not specified (principal); R32 Unspecified urinary incontinence; R35.0 Frequency of micturition; N32.89 Other specified disorders of bladder; E11.9 Type 2 diabetes mellitus without complications; I50.9 Heart failure, unspecified; G47.33 Obstructive sleep apnea (adult) (pediatric); F17.200 Nicotine dependence, unspecified, uncomplicated
CPT/HCPCS: 51798; 52000; 87086

== ENCOUNTER 2024-10-27 09:43 | Outpatient (AMB) | payer OTHER, SELFPAY ==
--- NOTE | 2024-10-27 09:51 | A.OFFVIS_ITS ---
Intake Visit Reasons: cysto Intake Note: Patient is present for Cystoscopy Urology Medication:VIBEGRON Antibiotic Allergy:NONE Blood Thinner:NONE TODAY'S PVR:132ML'S Lot:[id number] Exp:07/21/27 Software Quality Tester Required: No Allergies No Known Allergies [No Known Allergies*] Allergy (Verified 10/27/24 09:52) HPI Comments Details: 10/27/24--here for office cystoscopy--She is being evaluated due to urinary incontinence and recurrent UTI's. CoMorbidity-h/o Nicotine use. She was started on gemtesa and she states med is helping. Cystoscopy findings: no suspicious bladder lesions. Catheterized urine sent for surveillance urine culture. 09/11/24--Magalie is a 79 year old female who is here for evaluation for urinary inconcontinence and recurrent UTI's. She was seen in the [facility] on 08/06/24 with complaints of left lower quadrant and suprapubic pain. CTAP- 08/06/24 - no acute findings. The patient complains of daytime urinary frequency every 2 hours, wears a pad, nocturia 2-3x, denies hematuria. Comorbidity DM, CHF, NICO I have discussed avoiding dietary bladder irritants, including to cut back on caffeine usage. Trial gemtesa. FU office cystoscopy CTAP-- 08/06/24-GENITOURINARY: No contour deforming masses. No perinephric fluid collection. No renal calculi. No hydroureteronephrosis. REPRODUCTIVE: Uterus and and bilateral adnexa are unremarkable. CTAP--07/06/24- no acute finding [facility] Medical History (Updated 10/26/24 @ 13:50 by Beena Pritchard MD) Unspecified urinary incontinence NICO (obstructive sleep apnea) CHF (congestive heart failure) 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 indication of end stage renal disease in patient 6 to 64 years of age Lymphadenopathy Abdominal pain Bursitis of right hip Osteoarthritis of right hip Restrictive ventilatory defect Dyspnea on exertion Varicose veins of right lower extremity with inflammation Pneumonitis Pulmonary hypertension Hypertensive cardiovascular disease Acute hypoxic on chronic hypercapnic respiratory failure Acute on chronic respiratory failure with hypoxemia Obesity hypoventilation syndrome GERD (gastroesophageal reflux disease) Hypertension Diabetes mellitus COPD (chronic obstructive pulmonary disease) Surgical History S/P laparoscopic cholecystectomy (07/14/21) Family History Mother Diabetes Social History Household Members: Unknown / Unable to assess Household Members Other:: cousin Housing: Unknown / Unable to assess Do you presently have visiting nurse or other home services: No Alcohol intake: never Patient Tobacco Use Status: Former Tobacco user Tobacco use type: Cigarette Years Smoked: 20 Advance Directives Date on File: 02/23/24 service: No Current occupational status: unemployed and disabled Office Procedures Cystoscopy Consent Discussed risk and benefit or proposed procedure with the patient. Information consent for procedure given to the patient. Discussed technical aspects, risks, benefits and alternatives in full. Addressed all of the patient's questions and concerns regarding the procedure. The patient demonstrated knowledge and understanding. They wish to proceed with this procedure. Preparation The patient was prepped in the usual manner. A health screener was present and in the room. Genitalia was prepped with betadine solution in a sterile manner. Lidocaine Jelly 2% was placed into the urethra and 16Fr flexible Olympus cystoscope was inserted into the meatus after adequate lubrication. Procedure Time out per protocol performed. Bladder Inspection Bladder Inspection: The bladder was inspected in its entirety with utilization retroflexion displaying: Tumor(s): no suspicious bladder lesions visualized Trabeculation: Mild to Moderate Mucosal Erthema: mild Orifices: normal shape and position Urethra: normal 29218-Wzsuiaphak DISPOSABLE SCOPE URO-G FLEXIBLE SCOPE Procedure code (CPT) selection complete Post Void Residual Post Residual Void Post Void Residual (PVR): 132 50202-Uuxp Void Residual by ultrasound Office Meds lidocaine HCl 2 % mucosal jelly in applicator Performing Provider: Beena Pritchard MD Performing Location: [facility] Administered by: Myra Guadalupe RN on 10/27/24 10:52 Dose Route Admin Location Dispensed Lot Number Expiration Date [facility] Oracle Distribution Consultant 10 mL intra-urethral 10 mL ciprofloxacin HCl 500 mg tablet Performing Provider: Beena Pritchard MD Performing Location: [facility] Administered by: Myra Guadalupe RN on 10/27/24 10:52 Dose Route Admin Location Dispensed Lot Number Expiration Date NDC [employer] Consultant 500 mg PO 1 tab Assessment & Plan Assessment & Plan (1) Recurrent UTI: Code(s): N39.0 - Urinary tract infection, site not specified Category: Medical (2) Unspecified urinary incontinence: Code(s): R32 - Unspecified urinary incontinence Category: Medical (3) Urinary frequency: Code(s): R35.0 - Frequency of micturition Category: Medical Plan Continue gemtesa Orders: Orders AMB Cystoscopy 10/27/24 N39.0 - Urinary tract infection, site not specified, R32 - Unspecified urinary incontinence, R35.0 - Frequency of micturition Urine Culture 10/27/24 N39.0 - Urinary tract infection, site not specified Patient Instructions: The patient had an opportunity to ask questions regarding treatment plan. The patient expressed understanding and agreement with the above treatment plan. The patient is aware they should contact our office by phone for worsening of their current condition or the appearance of new symptoms. Compliance is encouraged with any medications and followup testing that is ordered. It is a privilege to be allowed the opportunity to participate in the urologic care of your patient. If you have any questions or concerns regarding treatment for the above conditions please do not hesitate to contact me. The office telephone contact is [phone]. This note is constructed in part using voice recognition software. While every effort has been made to ensure accuracy lithostripper errors may have been included. Yours sincerely, Beena Pritchard MD Coding Level of Care Code Procedure Only Diagnoses Recurrent UTI N39.0 Unspecified urinary incontinence R32 Urinary frequency R35.0 CPT Codes Cystoscopy - CPT: 85409-Pqolkowgdw ([id number]) Post Residual Void - PVR CPT Code: 05464-Kjvb Void Residual by ultrasound ([id number])
--- OUTSIDE RECORDS SUMMARY | 2024-10-27 10:27 | XMS_ITS | Encounter Summary ---
Author Organization [employer] Address [address] [place] [address] Care Team Providers Care Carpenter Supervisor Wooden Ship Name Role Phone Luke Gayle PharmD Unavailable Unavail able Bárbara Rader MD Primary Care Provide r Reason for Visit * Reason Onset Date Comments Appointment Request 09/15/2024 Encounter Details Date Type Department Care Team ([facility] st Contact Info) Description 09/15/2024 Telephone [facility] MED[facility]INE [address] [place], [place] [phone] Bárbara Rader MD [address] [place], [place] [phone] Appointment Request Social History Tobacco Use Types Packs/Day Years Used Date Smoking Tobacco: Former Cigarettes Q uit: 1989 Passive Smoke Exposure: Past Smokeless Tobacco: Never Alcohol Use Standard Drinks/Week Comments Never 0 (1 standard drink = 0.6 oz pur e alcohol) Depression Answer Date Recorded Patient Health Questionnaire-9 Score 0 07/16/2024 Patient Health Questionnaire-9 Score 0 07/16/2024 Last PHQ-9: Questionnaire Data Not on file 1 Housing Stability Answer Date Recorded What is your housing situation today? I have truman greene 07/09/[address] you li ve. Do you have problems with any of the following? None of the above 07/09/2024 Food Insecurity Answer Date Recorded Within the past 12 months, y ou worried that your food would run out before you got money to buy more: Never True 07/09/2024 Within the past 12 months,th e food you bought just didn't last and you didn't have enough money to get more: Never True Transportation Answer Date Recorded In the past 12 months, has l ack of transportation kept you from medical appts, meetings, work or from getting things needed for daily living? No 07/09/2024 Utilities Answer Date Recorded In the past 12 months, has t he electric, gas, oil or water company threatened to shut off services in your home? No 07/09/2024 Depression Answer Date Recorded Patient Health Questionnaire-2 Score 0 07/16/2024 Internet Access Answer Date Recorded Internet Access Q1 Yes 07/09/2024 Internet Access Q2 Not on file 07/09/2024 Comments Unknown Sex and Gender Information Value Date Recorded Sex Assigned at Female 07/17/2022 10:21 AM EDT Legal Sex Female 10:21 AM EDT Gender Identity Female 07/17/2022 10:21 AM EDT Sexual Orientation Choose not to disclose 2021 10:21 AM EDT documented as of this encounter Miscellaneous Notes * Telephone Encounter - Paulette Lee - 09/15/2024 1:31 PM EST Tc from pt son requesting reschedule 11/11 appt. Pt has other appt same day. Contact documented in this encounter Plan of Treatment Upcoming Encounters Date Type Department Care Team (Late st Contact Info) Description 11/25/2024 9:00 AM EDT Office Visit [facility] [address] [place] [address] Bárbara Rader MD [address] [place] [address] documented as of this encounter Goals Goal Patient Goal Type Associated Problems Recent Progress Patient-Stated? Author Blood Pressure < 140/90 Blood Pressure 142/70( 024 1:19 PM EST) No Dellogono, Luke, PharmD documented as of this encounter Visit Diagnoses Not on filedocumented in this encounter Additional Health Concerns Assessment Noted Time PHQ-9 Depression Total Score: 0 07/16/20 10:22 AM EDT documented as of this encounter Care Teams Carpenter Supervisor Wooden Ship Relationship Specialty Start Date End Date Bárbara Rader MD [address] [place] [address] PCP - General Internal Medicine 07/16/24 Luke Gayle PharmD Pharmacist Internal Medicine 09/04/22 [facility] 07/10/24 documented as of this encounter
--- OUTSIDE RECORDS SUMMARY | 2024-10-27 10:27 | XMS_ITS | Encounter Summary ---
Author Organization [employer] Address [address] [place] [address] Care Team Providers Care Testing Director Name Role Phone Carmine Patel MD Primary Care Provider [phone]- [phone] Luke Gayle PharmD Unavailable Unavail able Bárbara Rader MD Primary Care Provide r Reason for Referral * Consultation (Routine) - Closed Specialty Diagnoses / Procedures Referred By Alden andres Referred To Contact Physical Therapy Diagnoses Acute right ankle pain Carmine Patel MD [address] [place] [address] Phone: tel: fax: [facility] Physical Therapy [address] [place] [address] Phone: tel: fax: Referral ID Status Reason Start Date Expiration Date V isits Requested Visits Authorized [id number] Closed Specialty Services Required 03/28/2024 03/28/2025 1 1 Encounter Details Date Type Department Care Team (Late st Contact Info) Description 03/24/2024 Orders Only [facility] MED & PEDS [address] [place], [place] [phone] Carmine Patel MD [address] [place], [place] [phone] Acute right ankle pain (Primary Dx) Social History Tobacco Use Types Packs/Day Years Used Date Smoking Tobacco: Former Cigarettes Q uit: 1989 Smokeless Tobacco: Never Alcohol Use Standard Drinks/Week Comments Never 0 (1 standard drink = 0.6 oz pur e alcohol) Depression Answer Date Recorded Patient Health Questionnaire-9 Score 0 10/09/2022 Housing Stability Answer Date Recorded What is your housing situation today? I have truman greene 07/02/[address] you li ve. Do you have problems with any of the following? None of the above 07/02/2023 Food Insecurity Answer Date Recorded Within the past 12 months, y ou worried that your food would run out before you got money to buy more: Never True 07/02/2023 Within the past 12 months,th e food you bought just didn't last and you didn't have enough money to get more: Never True Transportation Answer Date Recorded In the past 12 months, has l ack of transportation kept you from medical appts, meetings, work or from getting things needed for daily living? No 07/02/2023 Utilities Answer Date Recorded In the past 12 months, has t he electric, gas, oil or water company threatened to shut off services in your home? No 07/02/2023 Depression Answer Date Recorded Patient Health Questionnaire-2 Score 0 10/09/2022 Comments Unknown Sex and Gender Information Value Date Recorded Sex Assigned at Female 07/17/2022 10:21 AM EDT Legal Sex Female 10:21 AM EDT Gender Identity Female 07/17/2022 10:21 AM EDT Sexual Orientation Choose not to disclose 2021 10:21 AM EDT documented as of this encounter Plan of Treatment Upcoming Encounters Date Type Department Care Team (Late st Contact Info) Description 11/25/2024 9:00 AM EDT Office Visit [facility] MEDICINE [address] [place] [address] Bárbara Rader MD [address] [place] [address] Scheduled Orders Name Type Priority Associated Diagnoses Orde r Schedule XR Ankle 2 Views Right Imaging Routine Acute right ankle pain Expected: 03/28/2024, Expires: 03/28/2025 Scheduled Referrals Name Type Priority Associated Diagnoses Orde r Schedule Referral to Physical Therapy Outpatient Referral Routine Acute right ankle pain Expected: 03/28/2024 (Approximate), Expires: 03/28/2025 documented as of this encounter Goals Goal Patient Goal Type Associated Problems Recent Progress Patient-Stated? Author Blood Pressure < 140/90 Blood Pressure 142/70( 024 1:19 PM EST) No Luke Gayle, PharmD documented as of this encounter Procedures Procedure Name Priority Date/Time Associated Diagnosis Comments XR KNEE 4+ VIEWS RIGHT Routine 03/28/2024 11:51 AM EDT documented in this encounter Results * XR Knee 4+ Views Right (03/28/2024 11:51 AM EDT) Anatomical Region Laterality Modality Lower Extremities, Knee Right Radiogra phic Imaging 03/28/2024 11:5 1 AM EDT Narrative 03/28/2024 12:12 PM EDT ? [facility] ?[address] ?[place] [address] ?XRay Report ? Signed ? Patient: Magalie Solis ?MR#: [id number] ?? [id number] ? : 1945 ?Acct:[id number] ? Age/Sex: 78 / F ?ADM Date: 03/28/24 ? Loc: HO.ED ? Attending Dr: ? Ordering Physician: Elzbieta Franz ?? Date of Service: 03/28/24 ?? Procedure(s): XR knee RT 4V ?? Accession Number(s): [id number] ? cc: Carmine Patel MD; Elzbieta Franz ? EXAMINATION: ?? XR KNEE, RIGHT ? CLINICAL INFORMATION: ?? Pain, injury. ? COMPARISON: ?? Radiograph right knee 06/06/2017. ? TECHNIQUE: ?? Four views of the right knee. ? FINDINGS: ?? Chronic appearing fracture of the proximal fibula with callus ?? formation. No acute fractures or subluxation. Moderate to severe ?? tricompartmental degenerative changes with joint space narrowing, ?? subcortical sclerosis and prominent marginal osteophytes. Patellar ?? spurring. Trace joint effusion. Diffuse soft tissue thickening. Mild ?? scattered vascular calcifications. ? XR/XR knee RT 4V ?? IMPRESSION: ?? 1. ??No acute fractures or subluxation. ?? 2. ??Chronic appearing fracture of the proximal fibula. ?? 3. 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 ?? 4. ??Trace joint effusion. ?? 5. ??Significant diffuse soft tissue thickening/swelling. ? Dictated By: ?Marielle,Sudha ? Signed By: ?<Electronically signed by Sudha ??Dager in OV> ? 03/28/24 1208 ? DD/ 1151 ? TD/TT: ? Account Maintenance Representative: ? Procedure Note Donjenifferinterpreter, Image - 03/28/[address] [address] XRay Report Signed Patient: Magalie Solis MMR#: [id number] : 6Acct:[id number] Age/Sex: 78 / FADM Date: 03/28/24 Loc: HO.ED Attending Dr: Ordering Physician: Elzbieta Franz Date of Service: 03/28/24 Procedure(s): XR knee RT 4V Accession Number(s): [id number] cc: Carmine Patel MD; Elzbieta Franz EXAMINATION: XR KNEE, RIGHT CLINICAL INFORMATION: Pain, injury. COMPARISON: Radiograph right knee 06/06/2017. TECHNIQUE: Four views of the right knee. FINDINGS: Chronic appearing fracture of the proximal fibula with callus formation. No acute fractures or subluxation. 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 Patellar spurring. Trace joint effusion. Diffuse soft tissue thickening. Mild scattered vascular calcifications. XR/XR knee RT 4V IMPRESSION: 1. No acute fractures or subluxation. 2. Chronic appearing fracture of the proximal fibula. 3. 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 4. Trace joint effusion. 5. Significant diffuse soft tissue thickening/swelling. Dictated By: Sudha Palomares Signed By: <Electronically signed by Sudha Palomares in OV> 03/28/24 1208 DD/ 1151 TD/TT: Account Maintenance Representative: [facility] External Provider IMG XR PROCEDURES Final Result documented in this encounter Visit Diagnoses Diagnosis Acute right ankle pain- Primary documented in this encounter Additional Health Concerns Assessment Noted Time PHQ-9 Depression Total Score: 0 10/09/19 23 11:12 AM EST documented as of this encounter Care Teams Testing Director Relationship Specialty Start Date End Date Carmine Patel MD [address] [place] [address] PCP - General Internal Medicine 11/16/15 07/15/24 Bárbara Rader MD [address] [place] [address] PCP - General Internal Medicine 07/16/24 Luke Gayle PharmD [address] [place] [address] Pharmacist Internal Medicine 09/04/22 [facility] 07/10/24 documented as of this encounter
--- OUTSIDE RECORDS SUMMARY | 2024-10-27 10:27 | XMS_ITS | Encounter Summary ---
Author Organization [email or web address] Address [address] [facility] [address] [place] [address] Care Team Providers Care Medical Transport Specialist Name Role Phone Carmine Patel MD Primary Care Provider [phone]- [phone] Luke Gayle PharmD Unavailable Unavail able Bárbara Rader MD Primary Care Provide r Reason for Visit * Reason Onset Date Comments FYI 02/15/2024 Encounter Details Date Type Department Care Team ([facility] st Contact Info) Description 02/15/2024 Telephone [facility] MED & PEDS [address] [place], [place] [phone] Carmine Patel MD [address] [place], [place] [phone] FYI Social History Tobacco Use Types Packs/Day Years Used Date Smoking Tobacco: Former Cigarettes Q uit: 1989 Smokeless Tobacco: Never Alcohol Use Standard Drinks/Week Comments Never 0 (1 standard drink = 0.6 oz pur e alcohol) Depression Answer Date Recorded Patient Health Questionnaire-9 Score 0 10/09/2022 Housing Stability Answer Date Recorded What is your housing situation today? I have trumanwendy greene 07/02/[address] you [...] encounter Miscellaneous Notes * Telephone Encounter - Luli Portillo - 02/15/2024 3:07 PM EDT Tc from [facility] with Tiffany calling to report pt has been discharged as of today from home PT. documented in this encounter Plan of Treatment Upcoming Encounters Date Type Department Care Team (Late st Contact Info) Description 11/25/2024 9:00 AM EDT Office Visit [facility] MEDICINE [address] [place] [address] Bárbara Rader MD [address] [place] [address] documented as of this encounter Goals Goal Patient Goal Type Associated Problems Recent Progress Patient-Stated? Author Blood Pressure < 140/90 Blood Pressure 142/70( 024 1:19 PM EST) No Luke Gayle, PharmD documented as of this encounter Visit Diagnoses Not on filedocumented in this encounter Additional Health Concerns Assessment Noted Time PHQ-9 Depression Total Score: 0 10/09/19 11:12 AM EST documented as of this encounter Care Teams Medical Transport Specialist Relationship Specialty Start Date End Date Carmine Patel MD [address] [place] [address] PCP - General Internal Medicine 11/16/15 07/15/24 Bárbara Rader MD [address] [place] [address] PCP - General Internal Medicine 07/16/24 Luke Gayle, Shan [address] [place] [phone] Pharmacist Internal Medicine 09/04/22 [facility] [place] [facility] 07/10/24 documented as of this encounter
--- OUTSIDE RECORDS SUMMARY | 2024-10-27 10:27 | XMS_ITS | Encounter Summary ---
Author Organization [employer] Address [address] [place] [address] Care Team Providers Care Taxi Truck Driver Name Role Phone Carmine Patel MD Primary Care Provider [phone]- [phone] Luke Gayle PharmD Unavailable Unavail able Bárbara Rader MD Primary Care Provide r Reason for Visit * Reason Onset Date Comments Nurse Triage 01/11/2024 Encounter Details Date Type Department Care Team (Late st Contact Info) Description 01/11/2024 Telephone [facility] MEDICINE [address] [place] [address] Carmine Patel MD [address] [place] [address] Nurse Triage Social History Tobacco Use Types Packs/Day Years [...] encounter Miscellaneous Notes * Telephone Encounter - Laura Cook RN - 01/11/2024 8:30 AM EDT Call to [facility], reports pt discharged from Rehab last Sunday. Per son pt having lethargy. Pt now experiencing lower leg pain and swelling. No redness or rash. No CP or SOB. Per son also having weakness. Pt taken to [facility] ER on Sunday01/11/24. Pt had elevated Potassium . Per son no meds given at ER and nothing given Rx. Per son pt having difficulty with standing. Pt son advised of need for ER now. Pt son states pt does not want to return to ER. Advised can send instED but may end up being referred to ER. Son prefers to have instED to come out first. Referral submitted for pt. Sent to team for instED status check PRN. Protocol Used: Leg Swelling and Edema (Adult) Protocol-Based Disposition: Go to ED/UCC Now (or to Office with PCP Approval) Positive Triage Questions: * Can't walk or can barely stand (new-onset) * Patient sounds very sick or weak to the triager * All higher-acuity triage questions were negative Care Advice Discussed: * Reasons To Call Back - You become worse * Telephone Encounter - Roberth Hathaway - 01/11/2024 8:26 AM EDT Symptoms: Lethargic (Tired), Weakness Outcome: Transfer to a nurse or provider NOW! Reason: Hard to wake up The caller accepted this outcome Please contact at [phone] Chinese documented in this encounter Plan of Treatment Upcoming Encounters Date Type Department Care Team ([facility] st Contact Info) Description 11/25/2024 9:00 AM EDT Office Visit [facility] MEDICINE [address] [place] [address] Bárbara Rader MD [address] [place] [address] documented as of this encounter Goals Goal [...] documented as of this encounter Care Teams Taxi Truck Driver Relationship Specialty Start Date End Date Carmine Patel MD [address] [place] [address] PCP - General Internal Medicine 11/16/15 07/15/24 Bárbara Rader MD [address] [place] [address] PCP - General Internal Medicine 07/16/24 Luke Gayle, PharmD [address] [place] [address] Pharmacist Internal Medicine 09/04/22 [facility] 07/10/24 documented as of this encounter
--- OUTSIDE RECORDS SUMMARY | 2024-10-27 10:27 | XMS_ITS | Continuity of Care Document ---
Author Organization [facility] [employer] [facility], [place] in - [facility] Address [address] [place] [id number] Care Team Providers Care Dough Puncher Name Role Phone HIM [facility] OTHER [facility] OTHER Assessment No assessment recorded. Plan of Treatment Reminders Order Date Submit Date Provider Last Modified By Organization Details Last Modified Time Details Appointments None recorded. Lab rapid flu (A+B) 2024 025 [facility], [address] [place] [address], [id number], 19:51:19 glucose, fingerstick , blood 2024 025 [facility], [address] [place] [address], [id number], 18:03:29 Referral None recorded. Procedures None recorded. Surgeries None recorded. Imaging electrocard iogram 2024 025 [facility], [address] [place] [address], [phone], 18:07:21 Medication Orders Proventil HFA 90 mcg/actuati on aerosol inhaler 2024 025 [facility], [address] [place] [address], [id number], 13:00:53 ipratropium 0.5 mg-albutero l 3 mg (2.5 mg base)/3 mL nebulizatio n soln [address] [facility], [address] [place] [address], [id number], 17:16:48 azithromyci n 250 mg tablet [address] [facility], [address] [place] [address], [id number], 18:04:54 azithromyci n 250 mg tablet 2024 025 [facility], [address] [place] [address], [id number], 13:00:49 Patient TargetsNo targets recorded. Patient InstructionsNo instructions recorded. Reason for Referral None Reported. Results Created Date Observation Date Name Description Value Unit Range Abnormal Flag Note LastModifiedBy Organization Detail LastModifiedTime 10/03/1910/03/2024 rapid flu (A+B) Flu negati ve Not Available Main - [facility] ed [address] [place] [address], [phone], 10/03/2024 17:09:58 10/03/19 25 10/03/2024 gluco se, finge rstic k, blood Blood Glucose: mg/dl 187 Not Available [facility] [address] [place] [address], [phone], 10/03/2024 17:16:05 10/03/19 25 10/03/2024 elect hernan milesgr am No observ ation record ed. [address], [phone], 10/03/2024 18:07:20 Result Notes None recorded. Procedures Surgical History None recorded. Imaging Results Imaging Date Name Status LastModified by Organization Details LastModified Time 10/03/2024 electrocardiogram completed [address], [phone], 10/03/2024 18:07:20 Procedure Notes None recorded. Medical Equipment None Reported. Allergies Allergen ID Allergen Name Allergen Category Reaction Reaction Severity Criticality Documentation Date Start Date Code Code System Note Provider Name and Address Organization Details Recorded Time 23192 lisinopri l medicatio n Not available Not available Not available 10/03/2024 93181 RxNorm Not Available [facility] - production 14:54:18 Medications Name Sig Start Date Stop Date Status Note LastModified by Organization Details LastModified Time medbox status USE DIRECTED active Not Available Not Available No t Available losartan 50 mg tablet TAKE 1 TABLET BY MOUTH EVERY MORNING active Not Available Not Available No t Available celecoxib 200 mg capsule TAKE ONE CAPSULE TWICE DAILY active Not Available Not Available Not Available furosemide 40 mg tablet TAKE 1 TABLET BY MOUTH EVERY MORNING active Not Available Not Available No t Available carvedilol 25 mg tablet TAKE ONE TABLET IN THE MORNING AND EVENING WITH FOOD active Not Available Not Available No t Available acetaminophe n 325 mg tablet TAKE TWO TABLETS EVERY 6 HOURS NEEDED FOR PAIN active Not Available Not Available No t Available cefuroxime axetil 250 mg tablet TAKE ONE TABLET BY MOUTH TWICE DAILY active Not Available Not Available No t Available carvedilol 12.5 mg tablet TAKE 1 TABLET BY MOUTH TWICE DAILY IN THE MORNING AND IN THE EVENING WITH MEALS active Not Available Not Available N ot Available ipratropium 0.5 mg-albuterol 3 mg (2.5 mg base)/3 mL nebulization soln Inhale 3 mL 4 times a day by nebulizatio n route. 2024 active Not Available Not Available Not Avai lable albuterol sulfate 2.5 mg/3 mL (0.083 %) solution for nebulization INHALE ONE AMPULE USING A NEBULIZER EVERY 6 HOURS NEEDED active Not Available Not Available No t Available azithromycin 250 mg tablet TAKE 1 TABLET BY MOUTH DAILY FOR 4 DAYS active Not Available Not Available N ot Available pravastatin 40 mg tablet TAKE 1 TABLET BY MOUTH EVERY EVENING active Not Available Not Available No t Available isosorbide mononitrate 20 mg tablet TAKE ONE TABLET BY MOUTH EVERY MORNING active Not Available Not Available No t Available fluconazole 150 mg tablet TAKE ONE TABLET AT ONCE THEN REPEAT IN SEVEN DAYS active Not Available Not Available N ot Available hydralazine 25 mg tablet TAKE ONE TABLET THREE TIME DAILY IN THE MORNING, AT NOON, AND IN THE EVENING active Not Available Not Available No t Available sulfamethoxa zole 800 mg-trimethop rim 160 mg tablet Take 1 tablet every 12 hours by oral route for 3 days. 2024 active Not Available Not Available Not Avai lable spironolacto ne 25 mg tablet TAKE ONE TABLET EVERY MORNING active Not Available Not Available No t Available pantoprazole 20 mg tablet,delay ed release TAKE 1 TABLET BY MOUTH EVERY MORNING BEFORE BREAKFAST DO NOT BREAK, CRUSH, DISSOLVE OR CHEW active Not Available Not Available No t Available oxycodone-ac etaminophen 5 mg-325 mg tablet TAKE ONE TABLET BY MOUTH EVERY 6 HOURS NEEDED FOR SEVERE PAIN active Not Available Not Available Not Available famotidine 20 mg tablet TAKE 1 TABLET BY MOUTH TWICE DAILY IN THE MORNING AND AT BEDTIME active Not Available Not Available No t Available cephalexin 500 mg capsule TAKE ONE CAPSULE BY MOUTH EVERY 6 HOURS FOR 7 DAYS active Not Available Not Available No t Available pantoprazole 40 mg tablet,delay ed release TAKE ONE TABLET EVERY MORNING active Not Available Not Available No t Available gabapentin 300 mg capsule TAKE 1 CAPSULE BY MOUTH AT BEDTIME active Not Available Not Available No t Available ergocalcifer ol (vitamin D2) 1,250 mcg (50,000 unit) capsule TAKE 1 CAPSULE BY MOUTH ONCE A WEEK active Not Available Not Available No t Available levofloxacin 750 mg tablet TAKE 1 TABLET BY MOUTH ONCE DAILY active Not Available Not Available No t Available losartan 100 mg tablet TAKE ONE TABLET EVERY MORNING active Not Available Not Available No t Available Ventolin HFA 90 mcg/actuatio n aerosol inhaler INHALE 2 PUFFS BY MOUTH EVERY 4 HOURS active Not Available Not Available No t Available oxycodone 5 mg tablet TAKE ONE TABLET EVERY 6 HOURS NEEDED FOR PAIN active Not Available Not Available No t Available Arthritis Pain Relief (acetaminoph en) ER 650 mg tablet,exten d release TAKE ONE TABLET EVERY 8 HOURS NEEDED MILD PAIN, DO NOT BREAK, CRUSH, DISSOLVE OR CHEW active Not Available Not Available No t Available nitrofuranto in monohydrate/ macrocrystal s 100 mg capsule TAKE 1 CAPSULE BY MOUTH EVERY TWELVE HOURS FOR 7 DAYS WITH MEALS active Not Available Not Available No t Available FreeStyle Lite Strips TEST BLOOD SUGAR THREE TIMES DAILY active Not Available Not Available Not Available Lantus Solostar U-100 Insulin 100 unit/mL (3 mL) subcutaneous pen INJECT 20 UNITS SUBCUTANEOU SLY AT BEDTIME active Not Available Not Available No t Available Humalog KwikPen (U-100) Insulin 100 unit/mL subcutaneous INJECT FIVE UNITS SUBCUTANEOU SLY WITH BREAKFAST, LUNCH AND dinner active Not Available Not Available No t Available Eye Itch Relief 0.025 % (0.035 %) drops PLACE 1 DROP INTO THE AFFECTED EYE(S) EVERY TWELVE HOURS NEEDED active Not Available Not Available No t Available Janumet XR 50 mg-1,000 mg tablet,exten ded release TAKE 1 TABLET BY MOUTH EVERY EVENING WITH FOOD active Not Available Not Available No t Available TRUEplus Lancets 33 gauge TEST BLOOD SUGAR TWICE DAILY active Not Available Not Available No t Available TechLITE Pen Needle 32 gauge x /32 USE FOUR DAILY DIRECTED active Not Available Not Available No t Available Compact Space Chamber USE WITH INHALER DIRECTED active Not Available Not Available No t Available Gemtesa 75 mg tablet TAKE 1 TABLET BY MOUTH EVERY DAY FOR URINARY INCONTINENC E active Not Available Not Available No t Available Vitals Date Recorded Body temperature Oxygen saturation Oxygen saturation in Arterial blood by Pulse oximetry Body weight Heart rate Respiratory rate Systolic blood pressure Diastolic blood pressure Provider Name and Address Organization Details Last Updated DateTime 5 99.3 [degF] 97 % 97 % 032004 g 73 /min 16 /min 146 mm[Hg] 81 mm[Hg] Not Available [facility] - production 5 16:44:11 Social History None recorded. Functional Status None recorded. Mental Status None recorded. Family History Nothing Reported. Medical History No medical history recorded. Gynecological HistoryNo gynecological history recorded. Obstetrics History GPAL:G 0 P 0 0 0 0 Past Encounters Encounter ID Performer Location Encounter Start Date Encounter Closed Date Diagnosis/Indication Diagnosis SNOMED-CT Code Diagnosis ICD10 Code Diagnosis Note [id number] JOSE LUIS GERONIMO MD Main - [facility] [address] [place] [phone] 10/03/2024 16:28:44 10/03/2024 22:24:33 Contusion of orbital tissue of right eye [id number] 9522003 S05.11XA Evaluation in the field was performed by my conciliation court judge colleague, as noted above, I provided real-time direction and supervisio n for this visit. Persian interprete r was used to communicat e with the patient since no one else was at home.The evaluation revealed a 79-year-ol d female with a past medical history of Coronary Artery Disease, Hypertensi on, COPD on home oxygen, Sleep Apnea (uses CPAP at night), Diabetes Mellitus Type 2, and a history of a leg fracture approximat malka 5 months ago, s/p a fall on 09/17/24. The patient hit her face on the right side against the walker handle, impacting the area next to her eye. She has bruising under the eye but has not sought evaluation at the ER, urgent care, or an urgent center since the fall. She denies headache, vomiting, or loss of consciousn ess. Her son applied ice and she has taken Tylenol. Today, she reports that the pain has resolved and denies blurred vision, double vision, pain with eye movement, or rhinorrhea . The son called today as he believes it is not improving, but the patient reports it is improving. She denies fever, chills, chest pain, and shortness of breath. The patient reports that she fractured her leg approximat malka 5 months ago, is still using a walking boot, and is requesting physical therapy since her leg still feels weak. The patient is refusing to seek ER evaluation . Vitals are stable. SpO2 97% on room air. Low-grade temperatur e, but the conciliation court judge reports that the room is very warm.Exam: Small bruising and swelling under the right eye and temporal area, with no periorbita l ecchymosis ( raccoon eyes ). No tenderness to palpation over the affected area or the bridge of the nose. Normal eye movement with no reported pain. The conciliation court judge reports rhonchi on lung examinatio n. No LEEFlu and Covid negativeEC G: No ST-T changes suggestive of acute ischemia. QTc 416 msec.Angle cuevas reviewed. Impression :Right eye periorbita l hematoma Plan:-Pt was advised to continue warm compresses .-May take Tylenol if pain returns.-R ed flags were discussed with the patient, including: Persistent pain, worsening swelling, or visual changes, which may indicate a more serious injury (e.g., orbital fracture or retrobulba r hematoma), blurry or double vision, pain with eye movement, persistent headache or altered mental status. Primary care, consider__ _ Dispositio n: We discussed the diagnostic uncertaint y of home visits and the risk associated with this. In this case, the patient and I felt this to be an acceptable and reasonable amount of risk given the benefit of avoiding an ED visit. We discussed the need to seek care urgently/e mergently in the setting of any new or worsening serious symptoms, particular ly persistent pain, worsening swelling, or visual changes,bl urry or double vision,res tricted eye movement, persistent headache or altered mental status. Acute exac erbation of chronic obstructive pulmonary disease [id number] J44.1 Patient denies shortness of breath, cough, or upper respirator y infection symptoms. The conciliation court judge reported rhonchi on lung examinatio n. On her medication list, Albuterol inhaler and nebulizer are listed, but the patient denies having or using either. Flu and Covid negative-G jennifer her history of COPD with chronic oxygen requiremen t, Duoneb x1 was administer ed.A prescripti on for an Albuterol MDI with spacer was sent to her pharmacy.- A prescripti on for Azithromyc in was also sent to her pharmacy, with the first dose administer ed by the conciliation court judge. -Due to the lack of wheezing, her stable oxygen saturation on chronic oxygen, and her history of diabetes requiring insulin, the decision was made not to start Prednisone to avoid hyperglyce daniela.-Red flags were discussed with the patient. Health Concerns Section Related Observation LastModified by Organization Detai ls LastModified Time None Recorded Concern Status LastModified by Organization Details LastModified Time None Recorded Payers Encounter Date Sequence Insurance Name Policy Number Policy Elizondo Covered Member ID Elizondo Member ID Guarantor Name 10/03/2024 1 [facility] - DOS ON OR AFTER 2022 - DUAL ELIGIBLE - NURSING HOME OPTIONS AND ONE CARE (MEDICARE REPLACEMENT/ADV ANTAGE - HMO) Magalie Stein [id number] Magalie Stein Notes Date Note Type Note Provider Name and Address Organization Details Recorded Time 10/03/2024 text/html HPI: Call returned to [facility] Live to triage below. Spoke with patient and son who reports that patient had a fall when walking with Rolator walker. Injury occurred on Sunday09/17/24.Pt hit face on right side against walker handle. Pt hit area next to eye. Pt having bruising under eye. No ER, UC or [facility] for eval since fall. No Headache or vomiting. Denies any LOC. Per son applied ice and has taken Tylenol. Pt is refusing to seek ER for evaluation. Pt tentatively agrees to [facility] referral ;for eval today. Confirmed demographics and allergies. ................... ................... ................... ................... ................... ................... ................... ........ [facility] Nurse Triage Notes (Celeste Wilkinson - RN): Chief Complaints: Falls PMH: Coronary Artery Disease, Hypertension, COPD/Asthma, Diabetes Mellitus Type 2, Urinary Tract Infections (UTI) PMH Reviewed at 10/03/2024:54 Allergies Reviewed at 10/03/2024:54 Comments: [facility] RN did not require any additional information to process this visit. Alumni Relations Officer Organization Information for Linda Leyva Legal Name: [facility] Address: [address] [place] [address], Ecommerce Project Manager: Too Welch MD CLIA No.: [id number] Alumni Relations Officer POC Test Results from Linda [facility] Rapid influenza antigen (17:29:49) Flu: - Attachments uploaded as part of this test result can be found under Documents section. EKG (17:59:36) EKG test performed. Attachments uploaded as part of this test result can be found under Documents section. ................... ................... ................... ................... ................... ................... ................... ........ Alumni Relations Officer Note From Linda Leyva: Disp for the 79 year old female cc head/eye injury. Upon arrival patient found sitting in recliner in living room. Patient is Persian speaking only' log loader used during visit. Patient is IQBAL x 4 GCS x 15, patient does not know the month or year and was unsure of her street address. Patient reports she is unable to read or write. Patient appeared to answer questions appropriately for log loader. Patient denies chest pain, denies shortness of breath, denies abdominal pain, denies n/v/d, denies head pain, denies changes to vision, complains of bilateral leg weakness. Patient's son called for appointment due to patient falling on 09/17/24 and hitting her right side of face. Patient refused to go to the ER after injury. Son reported increased swelling at right scientology and around right lower eye. Patient states swelling has decreased and she does not have pain. Patient reports she was walking with walker and hit her face on walker. Patient was assisted off floor by her room mate. Patient took tylenol and used ice packs on her face. Patient complains of leg weakness for three-four days and request referral for physical therapy. Patient has a history of COPD, uses home oxygen and CPAP at night. Patient reports she does not take any inhaler medications for her breathing. Patient denies exposure to flu like symptoms. Patient has right boot on foot/lower leg due to foot fracture from 5 months ago. Patient denies recent weight gain and denies edema/swelling in lower extremities. Patient is a poor historian for her medications and medical history. Monitor applied to patient, vtls stated above. + PERRL, lungs sounds decreased at bases with bilateral rhonchi with intermittent wheezing in left upper lobe, 12-lead sinus rhythm negative for ST elevation/depressio n, good cap refills, skin pink/warm/dry, strong radial pulse, POC 187, temp 99.3, negative pitted edema in lower extremities. Patient denies pain with palpation to bridge of nose and zygomatic bones, upper mandible. Rapid flu negative. Unable to obtain blood for blood work due to poor peripheral vasculature. Patient confirms she has difficulty getting blood work and I.V. access. Consulted with [facility] [place] G[place]imo. Dr. Geronimo ordered DuoNeb updraft for rhonchi lung sounds and patient complaining of weakness. Dr. Geronimo confirmed patient refused to go to emergency room for CT scan of head. Patient was administered updraft and reported improvement in her breathing. Patient did not complains of shortness of breath prior to updraft. Patient was administered 500mgs PO of Azithromycin per providers orders. Dr. Geronimo sent prescription of Azithromycin and albuterol inhaler to patient's pharmacy. Dr. Geronimo educated the patient of red flags/risk factors with log loader. Patient understood. Dr. Geroniom she will send request to her PCP for physical therapy referral. Dr. Geronimo advised patient she can take her albuterol inhaler tonight every 4-6 hours as needed and to continue antibiotics tomorrow as prescribed. All times approx. ................... ................... ................... ................... ................... ................... ................... ........ [facility] Consulted: Jose Luis Geronimo ................... ................... ................... ................... ................... ................... ................... ........ Disposition: Danis GERONIMO MD [address] [facility],[address], [place], [phone], MAKAY[employer] - [employer], KAT 10/03/2024 21:37:27 OBGyn Episode No OBEpisode recorded.
--- OUTSIDE RECORDS SUMMARY | 2024-10-27 10:27 | XMS_ITS | Encounter Summary ---
Author Organization [employer] Address [address] [facility] [address] [place] [address] Care Team Providers Care Registered Nurse Cardiac Telemetry Name Role Phone Carmine Patel MD Primary Care Provider [phone] Luke Gayle PharmD Unavailable Unavail able Bárbara Rader MD Primary Care Provide r Encounter Details Date Type Department Care Team (Late st Contact Info) Description 02/14/2024 Orders Only [facility] [address] [place], [place] [phone] Carmine Patel MD [address] [place], [place] [phone] Type 2 diabetes mellitus with other specified complication, without long-term current use of insulin ([facility]) (Primary Dx) Social History Tobacco Use Types Packs/Day Years Used Date Smoking Tobacco: Former Cigarettes Q uit: 1989 Smokeless Tobacco: Never Alcohol Use Standard Drinks/Week Comments Never 0 (1 standard drink = 0.6 oz pur e alcohol) Depression Answer Date Recorded Patient Health Questionnaire-9 Score 0 10/09/2022 Housing Stability Answer Date Recorded What is your housing situation today? I have truman ramona 07/02/[address] you li [...] Description 11/25/2024 9:00 AM EDT Office Visit [facility] [address] [place] [address] Bárbara Rader MD [address] [place] [address] documented as of this encounter Goals Goal Patient Goal Type Associated Problems Recent Progress Patient-Stated? Author Blood Pressure < 140/90 Blood Pressure 142/70( 024 1:19 PM EST) No Luke Gayle, PharmD documented as of this encounter Procedures Procedure Name Priority Date/Time Associated Diagnosis Comments XR ANKLE 3+ VIEWS RIGHT Routine 03/13/2024 9:46 AM EDT BI MAMMOGRAM ADDITIONAL VIEWS RIGHT Routine 03/12/2024 2:15 PM EDT documented in this encounter Results * XR Ankle 3+ Views Right (03/13/2024 9:46 AM EDT) Anatomical Region Laterality Modality Lower Extremities, Ankle Right Radiogr aphic Imaging 03/13/2024 9:46 AM EDT Narrative 03/31/2024 9:51 AM EDT ? [facility] ?[address] ?[place] [address] ?XRay Report ? Signed ? Patient: Calos Civico,Patricia ?MR#: [id number] ?? [id number] ? : 1945 ?Acct:[id number] ? Age/Sex: 78 / F ?ADM Date: 03/13/24 ? Loc: HO.XRAY ? Attending Dr: Ofelia Ly TOPOGRAPHICAL DRAFTER ? Ordering Physician: Saleem Young PA-C ?? Date of Service: 03/13/24 ?? Procedure(s): XR ankle RT min 3V ?? Accession Number(s): [id number] ? cc: Carmine Patel MD; Saleem Young PA-C ? EXAMINATION: ?? XR ANKLE, RIGHT ? CLINICAL INFORMATION: ?? Pain right ankle and joints of foot. ? COMPARISON: ?? 01/11/2024. ? TECHNIQUE: ?? AP, lateral, and mortise views of the right ankle. ? FINDINGS: ?? There is increased instability of the ankle with with increased lateral ?? subluxation of the talus relative to the tibial plafond and asymmetric ?? increased widening of the medial tibiotalar joint. ?? Redemonstration of an oblique, displaced fracture of the distal ?? diametaphysis of the fibula with increased overriding of fracture ?? fragments. There is some bridging callus formation. ? The bones are diffusely demineralized. Multiple soft tissue ?? calcifications characteristic of phleboliths with diffuse soft tissue ?? swelling and joint effusion. Moderate plantar calcaneal spur. ?? Degenerative changes at the dorsal aspect of the mid foot with pes ?? planus. ? XR/XR ankle RT min 3V ?? IMPRESSION: ?? Increased instability of the ankle with increased tibiotalar ?? subluxation widening of the medial tibiotalar space. Redemonstration of ?? an oblique, displaced fracture of the distal diametaphysis of the ?? fibula with increased overriding of fracture fragments. There is some ?? bridging callus formation. ? This study was presented to me March 31, 2024 for interpretation. [facility] ?? staff will provide results to referring provider at this time. ? Dictated By: ?Tierra Worthy MD ? Signed By: ?<Electronically signed by Tierra Worthy MD in OV> ? 03/31/24 0949 ? DD/ 0946 ? TD/TT: ? Bridge Game Director: ? Procedure Note Luhter, Image - 03/31/[address] [address] XRay Report Signed Patient: Magalie Solis MMR#: [id number] : 6Acct:[id number] Age/Sex: 78 / FADM Date: 03/13/24 Loc: [facility] Attending Dr: Ofelia Ly NP Ordering Physician: Saleem Young PA-C Date of Service: 03/13/24 Procedure(s): XR ankle RT min 3V Accession Number(s): [id number] cc: Carmine Patel MD; Saleem Young PA-C EXAMINATION: XR ANKLE, RIGHT CLINICAL INFORMATION: Pain right ankle and joints of foot. COMPARISON: 01/11/2024. TECHNIQUE: AP, lateral, and mortise views of the right ankle. FINDINGS: There is increased instability of the ankle with with increased lateral subluxation of the talus relative to the tibial plafond and asymmetric increased widening of the medial tibiotalar joint. Redemonstration of an oblique, displaced fracture of the distal diametaphysis of the fibula with increased overriding of fracture fragments. There is some bridging callus formation. The bones are diffusely demineralized. Multiple soft tissue calcifications characteristic of phleboliths with diffuse soft tissue swelling and joint effusion. Moderate plantar calcaneal spur. Degenerative changes at the dorsal aspect of the mid foot with pes planus. XR/XR ankle RT min 3V IMPRESSION: Increased instability of the ankle with increased tibiotalar subluxation widening of the medial tibiotalar space. Redemonstration of an oblique, displaced fracture of the distal diametaphysis of the fibula with increased overriding of fracture fragments. There is some bridging callus formation. This study was presented to me March 31, 2024 for interpretation. [facility] staff will provide results to referring provider at this time. Dictated By: Tierra Worthy MD Signed By: <Electronically signed by Tierra Worthy MD in OV> 03/31/2449 DD/ 5 TD/TT: Bridge Game Director: [facility] External Provider IMG XR PROCEDURES Final Result * BI Mammogram Additional Views Right (03/12/2024 2:15 PM EDT) Anatomical Region Laterality Modality Breast Right Mammography 03/12/2024 2:15 PM EDT Narrative 03/12/2024 3:08 PM EDT ? [facility] [place] ? [address] ?[place] [address] ? Mammography Report ? Signed ? Patient: Magalie Live ?MR#: [id number] ?? 8 ? : 1945 ?Acct:[id number] ? Age/Sex: 78 / F ?ADM Date: 03/12/24 ? Loc: HO.MAMMO ? Attending Dr: Carmine Patel MD ? Ordering Physician: Carmine Patel MD ?Results: 2 ?? Benign Findings ? Date of Service: 03/12/24 ?Follow Up: 1 Year From Orig ?? inal Mammogram ? Procedure(s): MM added views RT ?? Accession Number(s): [id number] ? cc: Carmine Patel MD ? EXAMINATION: ?? MM DIAGNOSTIC DIGITAL MAMMOGRAPHY, RIGHT ? CLINICAL INFORMATION: ? Follow-up diagnostic views for calcifications seen right breast ?? upper-outer quadrant on screening exam. ? COMPARISON: ?? Mammography: 02/05/2024. Exams dating back to 2019 and 2016. ? TECHNIQUE: ?? Digital mammography is performed in the following views: ??2-D Spot ?? magnification right CC and ML views were obtained. ? FINDINGS: ?? There are scattered areas of fibroglandular density (ACR BI-RADS breast ?? composition Category b). ? Loosely grouped calcifications noted in the upper outer quadrant right ?? breast are completely unchanged from 06/03/2019 magnification views, ?? and for that report, or stable from 2016 exams. These findings are ?? benign. No further follow-up is recommended. ? Stable intramammary lymph nodes in the upper outer right breast. ? Results are provided to the patient at time of visit by the ?? technologist. ? MM/MM added views RT ?? IMPRESSION: ?? No mammographic evidence of malignancy. ? Stable benign calcifications right breast. No further follow-up ?? recommended. ? Recommend the patient return to routine annual screening. ? ASSESSMENT: ? BI-RADS BI-RADS 2 - Benign Findings ? RECOMMENDATION: ?? 1 year F/U ? This patient's information was entered into a reminder system with a ?? target due date for their next mammogram. ? Dictated By: ?Bartolome Vidales MD ? Signed By: ?<Electronically signed by Bartolome Vidales MD in OV> ?03/12/24 1504 ? DD/ 1415 ? TD/TT: ? Bridge Game Director: ? Procedure Note Dara Sanchez - 03/12/2024 [facility] [address] [place] [address] Mammography Report Signed Patient: CalosMagalie MMR#: [id number] : 6Acct:[id number] Age/Sex: 78 / FADM Date: 03/12/24 Loc: HO.MAMMO Attending Dr: Carmine Patel MD Ordering Physician: Carmine Patel MDResults: 2 Benign Findings Date of Service: 03/12/24Follow Up: 1 Year From [facility] in[facility] Mammogram Procedure(s): MM added views RT Accession Number(s): [id number] cc: Carmine Patel MD EXAMINATION: MM DIAGNOSTIC DIGITAL MAMMOGRAPHY, RIGHT CLINICAL INFORMATION: Follow-up diagnostic views for calcifications seen right breast upper-outer quadrant on screening exam. COMPARISON: Mammography: 02/05/2024. Exams dating back to 2019 and 2016. TECHNIQUE: Digital mammography is performed in the following views: 2-D Spot magnification right CC and ML views were obtained. FINDINGS: There are scattered areas of fibroglandular density (ACR BI-RADS breast composition Category b). Loosely grouped calcifications noted in the upper outer quadrant right breast are completely unchanged from 06/03/2019 magnification views, and for that report, or stable from 2016 exams. These findings are benign. No further follow-up is recommended. Stable intramammary lymph nodes in the upper outer right breast. Results are provided to the patient at time of visit by the technologist. MM/MM added views RT IMPRESSION: No mammographic evidence of malignancy. Stable benign calcifications right breast. No further follow-up recommended. Recommend the patient return to routine annual screening. ASSESSMENT: BI-RADS BI-RADS 2 - Benign Findings RECOMMENDATION: 1 year F/U This patient's information was entered into a reminder system with a target due date for their next mammogram. Dictated By: Bartolome Vidales MD Signed By: <Electronically signed by Bartolome Vidales MD in OV> 03/12/24 1504 DD/ 1415 TD/TT: Bridge Game Director: us Carmine Patel MD IMG BI PROCEDURES Final Res ult documented in this encounter Visit Diagnoses Diagnosis Type 2 diabetes mellitus with other specified complication, without long-term current use of insulin ([facility])- Primary documented in this encounter Additional Health Concerns Assessment Noted Time PHQ-9 Depression Total Score: 0 10/09/19 23 11:12 AM EST documented as of this encounter Care Teams Registered Nurse Cardiac Telemetry Relationship Specialty Start Date End Date Carmine Patel MD [address] [place] [address] PCP - General Internal Medicine 11/16/15 07/15/24 Bárbara Rader MD [address] [place] [id number] PCP - General Internal Medicine 07/16/24 Luke Gayle PharmD [address] [place] [address] Pharmacist Internal Medicine 09/04/22 [facility] 07/10/24 documented as of this encounter
--- OUTSIDE RECORDS SUMMARY | 2024-10-27 10:27 | XMS_ITS | Encounter Summary ---
Author Organization [employer] Address [address] [facility] [address] [place] [address] Care Team Providers Care Barge Hand Name Role Phone Luke Gayle PharmD Unavailable Unavail able Bárbara Rader MD Primary Care Provide r Reason for Visit * Reason Onset Date Comments Durable Medical Equipment 09/03/2024 Encounter Details Date Type Department Care Team ([facility] st Contact Info) Description 09/03/[address] [facility] [address] [place] [address] Bárbara Rader MD [address] [place], [place] [phone] Durable Medical Equipment Social History Tobacco Use Types Packs/Day Years [...] encounter Miscellaneous Notes * Telephone Encounter - Venecia Lin - 09/03/2024 1:40 PM EST Tc from [facility] requesting a large commode. States the one pt has is to small. Anyfurther questions may contact phone # [phone]. documented in this encounter Plan of Treatment Upcoming Encounters Date Type Department Care Team (Late st Contact Info) Description 11/25/2024 9:00 AM EDT Office Visit [facility] [address] [place] [address] Bárbara Rader MD [address] [place] [address] documented as of this encounter Goals Goal Patient Goal Type Associated Problems Recent Progress Patient-Stated? Author Blood Pressure < 140/90 Blood Pressure 142/70( 024 1:19 PM EST) No DellogLuke garrison, PharmD documented as of this encounter Visit Diagnoses Not on filedocumented in this encounter Additional Health Concerns Assessment Noted Time PHQ-9 Depression Total Score: 0 07/16/20 10:22 AM EDT documented as of this encounter Care Teams Barge Hand Relationship Specialty Start Date End Date Bárbara Rader MD [address] [place] [id number] PCP - General Internal Medicine 07/16/24 Luke Gayle PharmD Pharmacist Internal Medicine 09/04/22 [facility] 07/10/24 documented as of this encounter
--- OUTSIDE RECORDS SUMMARY | 2024-10-27 10:27 | XMS_ITS | Continuity of Care Document ---
Author Organization [facility], Pr in - [facility] Address [address] [place] [id number] Care Team Providers Care Dry Boss Name Role Phone HIM [facility] OTHER [facility] OTHER [phone] Assessment Encounter Date Assessment Date Assessment LastModified by Organization Details LastModified Time 10/16/2024 10/16/2024 79 yo F with 1 day of headache, body aches, left arm pain. No F/C, SOB, CP, abd pain, weakness/numbn ess. No dysarthria. Unable to take NSAIDs given CKD. VS wnl. Left arm tender to palpation. Neuro exam grossly normal. Pt given tylenol 1g x 1 with [facility]. Okay to take 1g q6hr PRN. FUP with PCP. Precautions reviewed. [email or web address] Not available 10/20/2024 22:40:59 Plan of Treatment Reminders Order Date Submit Date Provider Last Modified By Organization Details Last Modified Time Details Appointments None recorded. Lab None recorded. Referral None recorded. Procedures None recorded. Surgeries None recorded. Imaging None recorded. Medication Orders Tylenol Extra Strength 500 mg tablet 2024 025 [email or web address] 7 [facility], [address], [place], [phone], 20:55:03 Patient TargetsNo targets recorded. Patient InstructionsNo instructions recorded. Reason for Referral None Reported. Results Created Date Observation Date Name Description Value Unit Range Abnormal Flag Note LastModifiedBy Organization Detail LastModifiedTime 10/03/19 25 10/03/2024 abraham kim am No observ ation record ed. [facility] Main - [facility] [address] [place] [address], [phone], 10/03/2024 18:07:20 Result Notes None recorded. Medical Equipment None Reported. Allergies Allergen ID Allergen Name Allergen Category Reaction Reaction Severity Criticality Documentation Date Start Date Code Code System Note Provider Name and Address Organization Details Recorded Time 90392 lisinopri l medicatio n Not available Not available Not available 10/03/2024 26441 RxNorm Not Available [facility] - production 5 14:54:18 Medications Name Sig Start Date Stop [...] Available TechLITE Pen Needle 32 gauge x 5/32 USE FOUR DAILY DIRECTED active Not Available Not Available No t Available Compact Space Chamber USE WITH INHALER DIRECTED active Not Available Not Available No t Available Gemtesa 75 mg tablet TAKE 1 TABLET BY MOUTH EVERY DAY FOR URINARY INCONTINENC E active Not Available Not Available No t Available Vitals Date Recorded Heart rate Body weight Body height Body temperature Oxygen saturation Oxygen saturation in Arterial blood by Pulse oximetry Inhaled oxygen flow rate Respiratory rate Systolic blood pressure Diastolic blood pressure Provider Name and Address Organization Details Last Updated DateTime 5 73 /min 818602 g 160.02 cm 99 [degF] 98 % 98 % 2 L/min 18 /min 155 mm[Hg] 81 mm[Hg] Not Available [facility] - production 5 20:52:30 Date Recorded Heart rate Respiratory rate Oxygen saturation Oxygen saturation in Arterial blood by Pulse oximetry Inhaled oxygen flow rate Body weight Body height Body temperature Systolic blood pressure Diastolic blood pressure Provider Name and Address Organization Details Last Updated DateTime 5 60 /min 18 /min 100 % 100 % 2 L/min 897187 g 160.02 cm 98.7 [degF] 194 mm[Hg] 91 mm[Hg] Not Available [facility] - production 5 15:59:16 Social History None recorded. Functional Status None recorded. Mental Status None recorded. Family History Nothing Reported. Medical History No medical history recorded. Gynecological HistoryNo gynecological history recorded. Obstetrics History GPAL:G 0 P 0 0 0 0 Past Encounters Encounter ID Performer Location Encounter Start Date Encounter Closed Date Diagnosis/Indication Diagnosis SNOMED-CT Code Diagnosis ICD10 Code Diagnosis Note [id number] KAMRYN GERONIMO MD [address] [phone] 10/03/2024 16:28:44 10/03/2024 22:24:33 Contusion of orbital tissue of right eye [id number] S05.11XA Evaluation in the field was performed by my cigar binder colleague, as noted above, I provided real-time direction and supervisio n for this visit. [place] interprete r was used to communicat e [...] room air. Low-grade temperatur e, but the cigar binder reports that the room is very warm.Exam: Small bruising and swelling under the right eye and temporal area, with no periorbita l ecchymosis ( raccoon eyes ). No tenderness to palpation over the affected area or the bridge of the nose. Normal eye movement with no reported pain. The cigar binder reports rhonchi on lung examinatio n. No LEEFlu and Covid negativeEC G: No ST-T changes suggestive of acute ischemia. QTc 416 msec.Aller gitonya reviewed. Impression :Right eye periorbita l hematoma [...] exac erbation of chronic obstructive pulmonary disease [id number] J44.1 Patient denies shortness of breath, cough, or upper respirator y infection symptoms. The cigar binder reported rhonchi on lung examinatio n. On her medication list, Albuterol inhaler and nebulizer are listed, but the patient denies having or using either. Flu and Covid negative-G iven her history of COPD with chronic oxygen requiremen t, Duoneb x1 was administer ed.A prescripti on for an Albuterol MDI with spacer was sent to her pharmacy.- A prescripti on for Azithromyc in was also sent to her pharmacy, with the first dose administer ed by the cigar binder. -Due to the lack of wheezing, her stable oxygen saturation on chronic oxygen, and her history of diabetes requiring insulin, the decision was made not to start Prednisone to avoid hyperglyce daniela.-Red flags were discussed with the patient. [id number] DA MITCHELL MD Main - [facility] [address] [place] [phone] 10/16/2024 20:52:29 10/21/2024 15:57:41 Headache [id number] R51.9 Pain in left arm [id number] 00 M79.602 Health Concerns Section Related Observation LastModified by Organization Detai ls LastModified Time None Recorded Concern Status LastModified by Organization Details LastModified Time None Recorded Payers Encounter Date Sequence Insurance Name Policy Number Policy Elizondo Covered Member ID Elizondo Member ID Guarantor Name 10/16/2024 1 [facility] - DOS ON OR AFTER 2022 - DUAL ELIGIBLE - INTERMEDIATE OPTIONS AND ONE CARE (MEDICARE REPLACEMENT/ADV ANTAGE - HMO) Magalie Stein [id number] Magalie Stein Notes Date Note Type Note Provider Name and Address Organization Details Recorded Time 10/16/2024 text/html HPI: Call returned to Magalie Calos to triage below. Reports having body aches, ANGELO. Denies any cough, congestion or fever. Pt having lethargy. Pt reports sx ons et today. Pt reports having BS reading of 160mg/dL fasting. Pt has not checked BP. Denies any exposure to Flu , covid-19 or RSV. Denies any N/V or diarrhea. Has not done home kit for COVID-19. Pt advised of disposition, no further availability for our walk in today. Agrees to [facility] cesar medellin. Confirmed Demographics and allergies. ................... ................... ................... ................... ................... ................... ................... ........ [facility] Nurse Triage Notes (Byron Acosta - RN): Chief Complaints: Fatigue, Headache, Joint pain/swelling PMH: Coronary Artery Disease, Hypertension, COPD/Asthma, Diabetes Mellitus Type 2, Urinary Tract Infections (UTI), Chronic Kidney Disease PMH Reviewed at 10/16/2024 - 15:42 Allergies Reviewed at 10/16/2024 - 15:42 Comments: HPI reviewed by this RN, no further information needed to process visit -Geronimo Acosta RN ................... ................... ................... ................... ................... ................... ................... ........ School Office Assistant Note [facility] Joselito Rogers[facility] Pt is wolof speaking only and assistant professor sculpture was used. Pt presents complaining of headache and left arm pain. Left arm pain started a couple of days ago with pain localized in the mid humerus of left arm. No known trauma or exertion. Pt has also had low grade headache those both symptoms she reports have improved throughout the day. Pt initially denied taking any OTC meds for pain and then later stated she had taken tylenol. Reproducible pain noted on palpation of left arm. No external signs of injury. V/S taken as listed. Pt afebrile. Lung sounds clear bilaterally. Consulted with [facility] [place] and reviewed dosage for tylenol. Pt then stated had taken some at 3 pm and would take more if she thought she needed it . Reviewed red flags for ED. Pt education provided. ................... ................... ................... ................... ................... ................... ................... ........ [facility] Consulted: Da Mitchell ................... ................... ................... ................... ................... ................... ................... ........ Disposition: Fulfilled DA MITCHELL MD [address] [place] [address],[address], [place], [phone], [facility] [employer] 10/20/2024 22:41:05 10/18/2024 text/html [facility] Nurse Triage Notes (Dixie Zavala - RN): Reason For Request: Patient feels Dizzy, and has been sleeping all day, thinks the patient may need a blood test. Chief Complaints: Altered mental status, Fatigue PMH: Coronary Artery Disease, Hypertension, COPD/Asthma, Diabetes Mellitus Type 2, Urinary Tract Infections (UTI), Chronic Kidney Disease PMH Reviewed at 10/18/2024 - : Allergies Reviewed at 10/18/2024 - : Comments: Security Consultant verified the member's name//address and phone number. Member's son calling to report member is dizzy and fatigued. Reports she has been sleeping all day. Member is arousable. At times member is confused, which is new. Member reports new pain in BUE. Member has been on oxygen for 8 months. Member's son reports yesterdays O2 Sat was 96%. Member's son is not with member. Unable to check current O2. Member's son reports she has been urinating regularly. Denies constipation/diarrh ea. Members son denies member to have any fever, chest pain or SOB. Emergency room encouraged, but member declined. Would like to be evaluated by [facility]. Red flags reviewed. Explained if member s/s worsen or change family needs to call emergency services. Education provided on the response time and the member was advised to monitor reported s/s and seek emergency treatment if needed. School Office Assistant Organization Information for Efrain Oakley [employer] Name: [employer] Address: [address] [place] [address], Control Systems Designer: Too ORELLANA No.: [id number] School Office Assistant POC Test Results from Efrain Oakley - ALS Urine Dipstick (16:02:19) Urine leukocytes: 70+ PORSCHE Urine nitrites: - NIT Urine urobilinogen: 0.2-3.5 URO Urine protein: 15+-0.15 PRO Urine pH: 7.0 pH Urine blood: - BLO Urine specific gravity: 1.010 SG Urine ketones: 5+-0.5 KET Urine bilirubin: - RICO Urine glucose: - GLU ................... ................... ................... ................... ................... ................... ................... ........ School Office Assistant Note From Efrain Oakley: [facility] makes pt contact. She is seated in a chair in her living room and she turns and greets [facility]. She is generally well appearing, wearing a NC, and making good eye contact. No stridor or sonorous respirations are heard, no facial droop or one-sided weakness are observed, and she is not bleeding anywhere. Pt is South Korean-speaking only, so assistant professor sculpture services via cell phone are attempted. Pt has difficulty hearing and understanding the assistant professor sculpture, so she calls her son on FaceTime and he provides hx and translation services. Pt endorses waking up this morning feeling confused and w/ L arm pain. She is denying cp, sob, n/v/d, and no recent falls or trauma to her head or UEs. Son tells MI pt has been sleeping most of the day in the past three days, but pt says she has just been taking little naps . She indicates her L shoulder pain is distal to the head of the humerus and slightly anterior in the area of supraspinatus insertion. When probed for more details about her confusion and asked about her urination, she endorses painful and burning urination, but no new back pain. She does not know if it has been malodorous or if there is blood in it. She consents to evaluation and treatment today. [facility] obtains vital signs and pt is assessed. Lung sounds are clear and nothing remarkable is noted upon physical exam. Urine sample is obtained via clean catch for culture and dip stick analysis. [facility] contacts [facility] and discusses the above. [facility] orders urine culture and a bmp. [facility] is unable to gain IV access for bmp. [facility] gives instructions for family to take pt to the ED if her confusion persists and decision about medication for possible UTI will be made after culture returns. Pt and family thank [facility] for coming. [facility] is clear. Report completed by WINSTON Oakley [id number]. [facility] Lab Orders: urinalysis, dipstick: Performed BMP, serum or plasma: Not Performed Comment: Unable to obtain adequate sample amount. ................... ................... ................... ................... ................... ................... ................... ........ [facility] Consulted: Mar Jiménez ................... ................... ................... ................... ................... ................... ................... ........ Disposition: Fulfilled Mar Jiménez MD [address] [facility],[address], [place], [phone], MAKAY[facility] - [employer], KAT 10/18/2024 21:29:19 OBGyn Episode No OBEpisode recorded.
--- OUTSIDE RECORDS SUMMARY | 2024-10-27 10:27 | XMS_ITS | Encounter Summary ---
Author Organization [facility] Address [address] [facility] [address] [place] [address] Care Team Providers Care Advertisement Distributor Name Role Phone Carmine Patel MD Primary Care Provider Luke Gayle PharmD Unavailable Unavail able Bárbara Rader MD Primary Care Provide r Encounter Details Date Type Department Care Team (Latest Contact Info) Description 06/26/2019 Abstract [facility] CONVERSIONS Dental, Provider, DDS Social History Tobacco Use Types Packs/Day Years Used Date Smoking Tobacco: Never Assessed Comments Unknown Sex and Gender Information Value [...] Description 11/25/2024 9:00 AM EDT Office Visit [facility] [address], [place] [phone] Bárbara Rader MD [address] [place], [place] [phone] documented as of this encounter Visit Diagnoses Not on filedocumented in this encounter Care Teams Advertisement Distributor Relationship Specialty Start Date End Date Carmine Patel MD [address] [place] [address] PCP - General Internal Medicine 11/16/15 07/15/24 Bárbara Rader MD [address] [place] [id number] PCP - General Internal Medicine 07/16/24 Luke Gayle PharmD [address] [place] [phone] Pharmacist Internal Medicine 09/04/22 [facility] 07/10/24 documented as of this encounter
--- OUTSIDE RECORDS SUMMARY | 2024-10-27 10:27 | XMS_ITS | Data Portability ---
Author Organization [place] [employer] [facility], [place] - [facility] Address [address] [place] [id number] Care Team Providers Care Inpatient Services Director Name Role Phone HIM CCA OTHER [facility] OTHER Assessment Encounter Date Assessment Date Assessment LastModified [...] q6hr PRN. FUP with PCP. Precautions reviewed. [email or web address] Not available 10/20/2024 22:40:59 Plan of Treatment Reminders Order Date Submit Date Provider Last Modified By Organization Details Last Modified Time Details Appointments None recorded. Lab BMP, serum or plasma [facility]23 [facility] [address] [place] [address], [id number], 4 15:56:07 rapid flu (A+B) 2024 025 [facility] [address] [place] [address], [id number], 5 19:51:19 glucose, fingerstick , blood 2024 025 [email or web address] [address] [place] [address], [id number], 5 18:03:29 urinalysis, dipstick 2024 025 [email or web address] [facility], [address] [place] [address], [id number], 5 16:56:12 BMP, serum or plasma 2024 025 [email or web address] [facility], [address] [place] [address], [id number], 5 16:56:12 culture, urine 2024 025 [facility], [address] [place], [address], 5 10:05:34 Referral None recorded. Procedures None recorded. Surgeries None recorded. Imaging electrocard iogram [address] [facility], [address] [place] [address], [id number], 5 18:07:21 Medication Orders furosemide 10 mg/mL injection solution 2023 024 [email or web address] Not available 4 13:17:12 Proventil HFA 90 mcg/actuati on aerosol inhaler [address] [facility], [address] [place] [address], [id number], 5 13:00:53 ipratropium 0.5 mg-albutero l 3 mg (2.5 mg base)/3 mL nebulizatio n soln 2024 025 [facility], [address] [place] [address], [id number], 5 17:16:48 azithromyci n 250 mg tablet 2024 025 [facility], [address] [place] [address], [id number], 5 18:04:54 azithromyci n 250 mg tablet [address] [facility], [address] [place] [address], [id number], 5 13:00:49 Tylenol Extra Strength 500 mg tablet 2024 025 [email or web address] 7 [facility], [address], [place], [id number], 5 20:55:03 sulfamethox azole 800 mg-trimetho prim [address] [facility], [address], [place], [id number], 5 11:07:13 Patient TargetsNo targets recorded. Patient InstructionsNo instructions recorded. Reason for Referral None Reported. Results Created Date Observation Date Name Description Value Unit Range Abnormal Flag Note LastModifiedBy Organization Detail LastModifiedTime 10/03/1910/03/2024 rapid flu (A+B) Flu negati ve Not Available [facility] [address] [place] [address], [id number], 10/03/2024 17:09:58 10/03/1910/03/2024 gluco se, finge rstic k, blood Blood Glucose: mg/dl 187 Not Available [facility] [address] [place] [address], [id number], 10/03/2024 17:16:05 10/18/19 25 10/21/2024 URINE CULTU RE,CO MPREH ENSIV E urine culture,comp rehensive Final report abnormal Not Available [facility] ([facility]) [address], [place], [address], 10/21/2024 12:44:16 10/18/19 25 10/21/2024 URINE CULTU RE,CO MPREH ENSIV E result 1 Klebsi brandon aeroge mi abnormal Some Enter obact erale s may devel op resis tance durin g thera py with third -gene ratio n cepha lospo rins. This resis tance is most commo nly seen with Citro bacte r freun dii compl ex, Enter obact er cloac ae compl ex, and Klebs iella aerog chin. [place] irwin that initi ally test susce ptibl e may becom e resis tant withi n a few days after initi ation of thera py. Testi ng subse quent isola irwin may be warra nted if clini annette indic ated. (CLSI M100- Ed33) Great er than 100,0 00 colon y formi ng units per mL Not Available [facility] ([facility]) [address], [place], [address], 10/21/2024 12:44:16 10/18/19 25 10/21/2024 URINE CULTU RE,CO MPREH ENSIV E antimicrobia l susceptibili ty Commen t S = Susce ptibl e; I = Inter media te; R = Resis tant P = Posit kate; N = Negat kate MICS are expre ssed in micro grams per mL Antib iotic RSLT# 1 RSLT# 2 RSLT# 3 RSLT# 4 Amoxi cilli n/Cla vulan ic Acid R Cefep coleen S Cefox itin R Cefpo doxim e S Ceftr iaxon e S Cipro floxa david S Ertap enem S Genta micin S Levof loxac in S Nitro furan toin R Tetra cycli ne S Tobra mycin S Trime thopr im/Mandel lfa S Not Available [facility] ([facility]) [address], [place], [address], 10/21/2024 12:44:16 10/03/19 25 10/03/2024 abraham kim am No observ ation record ed. gbaci [facility] - [facility] [address] [place] [address], [phone], 10/03/2024 18:07:20 Result Notes None recorded. Procedures Surgical History None recorded. Imaging Results Imaging Date Name Status LastModified by Organization Details LastModified Time 10/03/2024 electrocardiogram completed gbaci [facility] - [facility] [address] [place] [address], [place], [phone], 10/03/2024 18:07:20 Procedure Notes None recorded. Medical Equipment None Reported. Allergies Allergen ID Allergen Name Allergen Category Reaction Reaction Severity Criticality Documentation Date Start Date Code Code System Note Provider Name and Address Organization Details Recorded Time 35242 lisinopri l medicatio n Not available Not available Not available 10/03/2024 80058 RxNorm Not Available [facility] - production 14:54:18 [...] No t Available Vitals Date Recorded Body height Heart rate Respiratory rate Oxygen saturation Oxygen saturation in Arterial blood by Pulse oximetry Inhaled oxygen flow rate Body temperature Body weight Systolic blood pressure Diastolic blood pressure Provider Name and Address Organization Details Last Updated DateTime 4 160.02 cm 76 /min 21 /min 97 % 97 % 2 L/min 98.2 [degF] 960448. 08 g 131 mm[Hg] 67 mm[Hg] Not Available [facility] - production 4 13:13:16 Date Recorded Body temperature Oxygen saturation Oxygen saturation in Arterial blood by Pulse oximetry Body weight Heart rate Respiratory rate Systolic blood pressure Diastolic blood pressure Provider Name and Address Organization Details Last Updated DateTime 5 99.3 [degF] 97 % 97 % 181491 g 73 /min 16 /min 146 mm[Hg] 81 mm[Hg] Not Available [facility] - production 5 16:44:11 Date Recorded Heart rate Body weight Body height Body temperature Oxygen saturation Oxygen saturation in Arterial blood by Pulse oximetry Inhaled oxygen flow rate Respiratory rate Systolic blood pressure Diastolic blood pressure Provider Name and Address Organization Details Last Updated DateTime 5 73 /min 429707 g 160.02 cm 99 [degF] 98 % 98 % 2 L/min 18 /min 155 mm[Hg] 81 mm[Hg] Not Available [email or web address] - production 20:52:30 Date Recorded Heart rate Respiratory rate Oxygen saturation Oxygen saturation in Arterial blood by Pulse oximetry Inhaled oxygen flow rate Body weight Body height Body temperature Systolic blood pressure Diastolic blood pressure Provider Name and Address Organization Details Last Updated DateTime 5 60 /min 18 /min 100 % 100 % 2 L/min 244953 g 160.02 cm 98.7 [degF] 194 mm[Hg] 91 mm[Hg] Not Available [employer] - production 15:59:16 Social History None recorded. Functional Status None recorded. Mental Status None recorded. Family History Nothing Reported. Medical History No medical history recorded. Gynecological HistoryNo gynecological history recorded. Obstetrics History GPAL:G 0 P 0 0 0 0 Past Encounters Encounter ID Performer Location Encounter Start Date Encounter Closed Date Diagnosis/Indication Diagnosis SNOMED-CT Code Diagnosis ICD10 Code Diagnosis Note [id number] Bautista Cueva MD [facility] - [facility] [address] [place] [phone] 10/23/2023 17:01:07 10/23/2023 22:32:23 Loose stool 788140028 R19.5 [id number] Allyn Massey MD [facility] - [facility] [address] [place] [phone] 01/11/2024 10:20:30 01/11/2024 16:25:20 Muscle weakness 03385177 M62.81 [id number] David Retana MD [facility] - [facility] [address] [place] [id number] 01/24/2024 13:12:58 01/24/2024 22:56:49 Bilateral lower limb edema 282933256 R60.0 Acute on chronic. Patient with daily Lasix 40mg. States does not have any weight gain. Renal function and lytes are stable. Will give additional 40mg IV Lasix now. Advised to keep legs elevated, use compressio n stockings, track weights, call back tomorrow if persistent and to call PCP re: increasing dosage of daily PO Lasix. Of note, no wheezing or respirator y symptoms. Discussed red flag signs for which to seek higher level of care. [id number] JOSE LUIS GERONIMO MD [facility] - [facility] [address] [place] [id number] 10/03/2024 16:28:44 10/03/2024 22:24:33 Contusion of orbital tissue of right eye [id number] 3210879 S05.11XA Evaluation in the field was performed by my database administration project manager colleague, as noted above, I provided real-time direction and supervisio n for this visit. Icelandic interprete r was used to communicat e [...] room air. Low-grade temperatur e, but the database administration project manager reports that the room is very warm.Exam: Small bruising and swelling under the right eye and temporal area, with no periorbita l ecchymosis ( raccoon eyes ). No tenderness to palpation over the affected area or the bridge of the nose. Normal eye movement with no reported pain. The database administration project manager reports rhonchi on lung examinatio n. No [...] exac erbation of chronic obstructive pulmonary disease 862071310 J44.1 Patient denies shortness of breath, cough, or upper respirator y infection symptoms. The database administration project manager reported rhonchi on lung examinatio n. On [...] the first dose administer ed by the database administration project manager. -Due to the lack of wheezing, her stable oxygen saturation on chronic oxygen, and her history of diabetes requiring insulin, the decision was made not to start Prednisone to avoid hyperglyce daniela.-Red flags were discussed with the patient. [id number] DA MUÑOZ MD [facility] - [facility] [address] [place] [address] 10/16/2024 20:52:29 10/21/2024 15:57:41 Headache 70670404 R51.9 Pain in left arm 4927215 00 M79.602 [id number] Mar Jiménez MD [facility] - [address] [phone] 10/18/2024 15:45:59 10/21/2024 16:36:29 Altered mental status 971624658 R41.82 Evaluation in the field was performed by my database administration project manager colleague, as noted above, I provided real-time direction and supervisio n for this visit. 79 yo F PMHx HTN, CAD, T2DM, COPD on 2L home O2 p/w ongoing ANGELO, body aches for which she was seen yesterday by [facility]. Repeat visit requested by son as pt awoke this AM and felt confused, spontaneou sly resolved. Triage note reports dizziness however pt denies this. ANGELO resolved. Endorsed urinary frequency without dysuria, fevers, hematuria. On database administration project manager eval VS wnl, exam wnl including A+O x3 no focal neurologic findings. POC testing UA + leuks, protein, and ketones but no blood or nitrites. BMP unable to be obtained and pt declined further attempts. Reviewed w/ pt that etiology of transient AMS not clear but DDx includes TIA, less likely UTI based on UA (UCx ordered). Pt declined ED evaluation at this time but agreed to present if symptoms recurred. Of note considered on DDx SAH or meningitis iso ANGELO and AMS however afebrile and would not expect these cause of AMS to spontaneou sly resolve. Red flags reviewed. Also endorsed ongoing L shoulder/a rm pain. On database administration project manager exam not swelling or deformity, rotator cuff maneuvers produce pain. Recommende d PCP f/up PCP: please f/up UCx and treat for UTI if positive, please consider eval for shoulder pain. We discussed the diagnostic uncertaint y of home visits and the risk associated with this. In this case, the patient and I felt this to be an acceptable and reasonable amount of risk given the benefit of avoiding an ED visit. We discussed the need to seek care urgently/e mergently in the setting of any new or worsening serious symptoms, shortness of breath, cough, chest pain, fever. [id number] Sayra Arevalo MD [facility] - [address] [phone] 10/21/2024 15:55:58 10/21/2024 17:31:04 Urinary symptoms 264310493 R39.9 Health Concerns Section Related Observation LastModified by Organization Detai ls LastModified Time None Recorded Concern Status LastModified by Organization Details LastModified Time None Recorded Advance Directives Directive None Recorded Payers Encounter Date Sequence Insurance Name Policy Number Policy Elizondo Covered Member ID Elizondo Member ID Guarantor Name 01/24/2024 1 [facility] DOS ON OR AFTER 2022 - DUAL ELIGIBLE - RESIDENTIAL OPTIONS AND ONE CARE (MEDICARE REPLACEMENT/ADV ANTAGE - HMO) Magalie Stein [id number] Magalie SanchezCalos [facility] 10/03/2024 1 [facility] - DOS ON OR AFTER 2022 - DUAL ELIGIBLE - RESIDENTIAL OPTIONS AND ONE CARE (MEDICARE REPLACEMENT/ADV ANTAGE - HMO) Magalie Stein [id number] Magalie Hammondsrrnargis Stein 10/16/2024 1 [facility] [employer] - DOS ON OR AFTER 2022 - DUAL ELIGIBLE - RESIDENTIAL OPTIONS AND ONE CARE (MEDICARE REPLACEMENT/ADV ANTAGE - HMO) Magalie Stein [id number] Magalie SanchezCalos [facility] 10/18/2024 1 [facility] - DOS ON OR AFTER 2022 - DUAL ELIGIBLE - RESIDENTIAL OPTIONS AND ONE CARE (MEDICARE REPLACEMENT/ADV ANTAGE - HMO) Magalie Stein [id number] Magalie Hammondsrro [facility] 10/21/2024 1 [facility] [employer] - DOS ON OR AFTER 2022 - DUAL ELIGIBLE - RESIDENTIAL OPTIONS AND ONE CARE (MEDICARE REPLACEMENT/ADV ANTAGE - HMO) Magalie Stein [id number] Magalie Live [facility] Notes Date Note Type Note Provider Name and Address Organization Details Recorded Time 01/24/2024 text/html HPI: Call returned to Magalie Live to triage below. Reports having ANGELO and weakness. Per pt also endorses mild blurry vision. No N/V or diarrhea. Pt denies any PHUONG sx or fever. Per pt BP today 154/73 HR73 . Per pt BS 254mg/dL. PT denies any CP. Mild SOB on exertion. No wheezing. Pt advised of disposition, unable to come into our [facility]. Agrees to [facility] for eval. ...................... ...................... ...................... ...................... ...................... ...................... ......... [facility] Nurse Triage Notes (Maame Garay): Comments: HPI reviewed. No further information needed to process visit. [employer] POC Test Results from Antonette Metz [facility] (1) [13:11] pH: 7.359 pH units pCO2: 83.1 mmHg pO2: 63.4 mmHg Na: 143 mmol/L K: 3.8 mmol/L iCa: 1.09 mmol/L Cl: 64 mmol/L TCO2: 45.8 mEq/L Hct: 38 % Hb: 12.9 g/dL Glu: 217 mg/dL Lac: 0.84 mmol/L Cr: 0.65 mg/dL BUN: 6 mg/dL A Attachments uploaded as part of this test result can be found under Documents section. ...................... ...................... ...................... ...................... ...................... ...................... ......... [employer] Note From Antonette Metz: pt complains of 10/10 pain located bilaterally in legs. pt states pain has been occurring for past X2 months, pain initated after bilateral fractures during a hospital visit. Pt has difficulty ambulating at baseline, taking physical therapy for this. pt states she is taking 40 MG of PO Furosemide as prescribed.pt is alert and oriented X4 , NAD, pt vitals are WNL , Afebrile. non focal neuro exam, no CP , unremarkable abominal exam , soft, non distended. lung sounds clear bilaterallynoted pedal edema Rl +4, LL+2 Positive CSM, EPOC exam done with unremarkable findings.40 Mg of Iv furosemide given. PT educated on medication and the effects. Pt instructed to contact emergency services is new or worsening symptoms present themself. which pt has been educated on as well. pt. told contact PCP ...................... ...................... ...................... ...................... ...................... ...................... ......... Disposition: Fulfilled David Retana MD [address] [place] [address],[address], [place], [address], [employer] 01/24/2024 15:18:13 10/03/2024 text/html HPI: Call returned to Magalie [...] ;for eval today. Confirmed demographics and allergies. ...................... ...................... ...................... ...................... ...................... ...................... ......... [facility] Nurse Triage Notes (Celeste Wilkinson - RN): Chief Complaints: Falls PMH: Coronary Artery Disease, Hypertension, COPD/Asthma, Diabetes Mellitus Type 2, Urinary Tract Infections (UTI) PMH Reviewed at 10/03/2024: Allergies Reviewed at 10/03/2024:54 Comments: [facility] RN did not require any additional information to process this visit. [employer] Organization Information for LorenzoemilianoLinda Legal Name: [employer].? Address: [address] [place] [address], [employer] Tier Off: Too Welch MD [facility] No.: [id number] [employer] POC Test Results from Linda Leyva Rapid influenza antigen (17:29:49) Flu: - Attachments uploaded as part of this test result can be found under Documents section. EKG (17:59:36) EKG test performed. Attachments uploaded as part of this test result can be found under Documents section. ...................... ...................... ...................... ...................... ...................... ...................... ......... [employer] Note From Linda Leyva: Disp for the 79 year old female cc head/eye injury. Upon arrival patient found sitting in recliner in living room. Patient is Icelandic speaking only' community mental health worker used during visit. Patient is IQBAL x 4 GCS x 15, patient does not know the month or year and was unsure of her street address. Patient reports she is unable to read or write. Patient appeared to answer questions appropriately for community mental health worker. Patient denies chest pain, denies shortness of breath, denies abdominal pain, denies n/v/d, denies head pain, denies changes to vision, complains of bilateral leg weakness. Patient's son called for appointment due to patient falling on 09/17/24 and hitting her right side of face. Patient refused to go to the ER after injury. Son reported increased swelling at right episcopal and around right lower eye. Patient states [...] lobe, 12-lead sinus rhythm negative for ST elevation/depression, good cap refills, skin pink/warm/dry, strong radial [...] the patient of red flags/risk factors with community mental health worker. Patient understood. Dr. Geronimo she will send request to her PCP for physical therapy referral. Dr. Geronimo advised patient she can take her albuterol inhaler tonight every 4-6 hours as needed and to continue antibiotics tomorrow as prescribed. All times approx. ...................... ...................... ...................... ...................... ...................... ...................... ......... [facility] Consulted: Jose Luis Geronimo ...................... ...................... ...................... ...................... ...................... ...................... ......... Disposition: Danis GERONIMO MD [address], [place], [address], [employer] 10/03/2024 21:37:27 10/16/2024 text/html HPI: Call returned to Magalie Live to triage below. Reports having body aches, [...] [facility] cesar medellin. Confirmed Demographics and allergies. ...................... ...................... ...................... ...................... ...................... ...................... ......... [facility] Nurse Triage Notes (Byron Acosta - RN): Chief Complaints: Fatigue, Headache, Joint pain/swelling PMH: Coronary Artery Disease, Hypertension, COPD/Asthma, Diabetes Mellitus Type 2, Urinary Tract Infections (UTI), Chronic Kidney Disease PMH Reviewed at 10/16/2024 15:42 Allergies Reviewed at 10/16/2024 15:42 Comments: HPI reviewed by this RN, no further information needed to process visit -Geronimo Acosta RN ...................... ...................... ...................... ...................... ...................... ...................... ......... [employer] Note From Joselito Rogers: [employer] visit for female pt. Pt is congolese speaking only and community mental health worker was used. Pt presents complaining of headache [...] afebrile. Lung sounds clear bilaterally. Consulted with [facility] [place] Muñoz and reviewed dosage for tylenol. Pt then stated had taken some at 3 pm and would take more if she thought she needed it . Reviewed red flags for ED. Pt education provided. ...................... ...................... ...................... ...................... ...................... ...................... ......... [facility] Consulted: Da Muñoz ...................... ...................... ...................... ...................... ...................... ...................... ......... Disposition: Danis MUÑOZ MD [address], [place], [address], [employer] - KAT NEVAREZ 10/20/2024 22:41:05 10/18/2024 text/html [facility] Nurse Triage Notes (Dixie Zavala - RN): Reason For Request: Patient feels Dizzy, and has been sleeping all day, thinks the patient may need a blood test. Chief Complaints: Altered mental status, Fatigue PMH: Coronary Artery Disease, Hypertension, COPD/Asthma, Diabetes Mellitus Type 2, Urinary Tract Infections (UTI), Chronic Kidney Disease PMH Reviewed at 10/18/2024 - 14:00 Allergies Reviewed at 10/18/2024 - : Comments: Ceramics Engineer verified the member's name//address and phone number. [...] reports she has been urinating regularly. Denies constipation/diarrhea. Members son denies member to have any fever, chest pain or SOB. Emergency room encouraged, but member declined. Would like to be evaluated by [facility]. Red flags reviewed. Explained if member s/s worsen or change family needs to call emergency services. Education provided on the response time and the member was advised to monitor reported s/s and seek emergency treatment if needed. 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 Address: [address] [place] [address], [employer] Tier Off: Too Welch MD CLIA No.: [id number] Blasting [employer] POC Test Results from Efrain Oakley Urine Dipstick (16:02:19) Urine leukocytes: 70+ PORSCHE Urine nitrites: - NIT Urine urobilinogen: 0.2-3.5 URO Urine protein: 15+-0.15 PRO Urine pH: 7.0 pH Urine blood: - BLO Urine specific gravity: 1.010 SG Urine ketones: 5+-0.5 KET Urine bilirubin: - RICO Urine glucose: - GLU ...................... ...................... ...................... ...................... ...................... ...................... ......... [employer] Note From Efrain Oakley: PINA makes pt contact. She is seated in a chair in her living room and she turns and greets PINA. She is generally well appearing, wearing a NC, and making good eye contact. No stridor or sonorous respirations are heard, no facial droop or one-sided weakness are observed, and she is not bleeding anywhere. Pt is Icelandic-speaking only, so community mental health worker services via cell phone are attempted. Pt has difficulty hearing and understanding the community mental health worker, so she calls her son on Lonely Sock and he provides hx and translation services. Pt endorses waking up this morning feeling confused and w/ L arm pain. She is denying cp, sob, n/v/d, and no recent falls or trauma to her head or UEs. Son tells PINA pt has been sleeping most of the [...] She consents to evaluation and treatment today. [facility] obtains vital signs and pt is assessed. Lung sounds are clear and nothing remarkable is noted upon physical exam. Urine sample is obtained via clean catch for culture and dip stick analysis. [facility] contacts [facility] and discusses the above. [facility] orders urine culture and a bmp. [facility] is unable to gain IV access for bmp. [facility] gives instructions for family to take pt to the ED if her confusion persists and decision about medication for possible UTI will be made after culture returns. Pt and family thank [facility] for coming. [facility] is clear. Report completed by WINSTON Oakley [id number]. [facility] Lab Orders: urinalysis, dipstick: Performed BMP, serum or plasma: Not Performed Comment: Unable to obtain adequate sample amount. ...................... ...................... ...................... ...................... ...................... ...................... ......... [facility] Consulted: Mar Jiménez ...................... ...................... ...................... ...................... ...................... ...................... ......... Disposition: Fulfilled Mar Jiménez MD [address] [place] [address],[address], [place], [address], [employer] 10/18/2024 21:29:19 OBGyn Episode No OBEpisode recorded.
--- OUTSIDE RECORDS SUMMARY | 2024-10-27 10:27 | XMS_ITS | Encounter Summary ---
Author Organization [employer] Address [address] [facility] 7t [place] [address] Care Team Providers Care Relay Associate Name Role Phone Carmine Patel MD Primary Care Provider +1- [phone] Luke Gayle PharmD Unavailable Unavail able Bárbara Rader MD Primary Care Provide r Encounter Details Date Type Department Care Team (Late st Contact Info) Description 06/26/2024 Orders Only [facility] CHC MED & PEDS [address] [place], [place] [phone] Carmine Patel MD [address] [place], [place] [phone] Burning sensation (Primary Dx) Social History Tobacco Use Types [...] Description 11/25/2024 9:00 AM EDT Office Visit [facility] MEDICINE [address] [place] [address] [phone] Bárbara Rader MD [address] [place] [address] documented as of this encounter Goals Goal Patient Goal Type Associated Problems Recent Progress Patient-Stated? Author Blood Pressure < 140/90 Blood Pressure 142/70( 024 1:19 PM EST) No Luke Gayle, PharmD documented as of this encounter Visit Diagnoses Diagnosis Burning sensation- Primary Disturbance of skin sensation documented in this encounter Additional Health Concerns Assessment Noted Time PHQ-9 Depression Total Score: 0 10/09/19 23 11:12 AM EST documented as of this encounter Care Teams Relay Associate Relationship Specialty Start Date End Date Carmine Patel MD [address] [place] [address] PCP - General Internal Medicine 11/16/15 07/15/24 Bárbara Rader MD [address] [place] [address] PCP - General Internal Medicine 07/16/24 Luke Gayle PharmD [address] [place] [address] Pharmacist Internal Medicine 09/04/22 [facility] [place] 07/10/24 documented as of this encounter
--- OUTSIDE RECORDS SUMMARY | 2024-10-27 10:27 | XMS_ITS | Encounter Summary ---
Author Organization [employer] Address 75 [facility] 7t [place] [address] Care Team Providers Care Design Quality Engineer Name Role Phone Carmine Patel MD Primary Care Provider +1- [phone] Luke Gayle PharmD Unavailable Unavail able Bárbara Rader MD Primary Care Provide r Encounter Details Date Type Department Care Team (Late st Contact Info) Description 01/18/2024 Orders Only [facility] CH[facility] MED & PEDS [address] [place], [place] [phone] Carmine Patel MD [address] [place], [place] [phone] Urinary incontinence, unspecified type (Primary Dx) Social History Tobacco Use Types [...] as of this encounter Miscellaneous Notes * Result Encounter Note - Carmine Patel MD - 01/18/2024 11:25 AM EDT Macrobid prescribed instead of Bactrim for pt's UTI. Ms Magalie Live was seen today and still has symptoms of UTI. documented in this encounter Plan of Treatment Upcoming Encounters Date Type Department Care Team (Late st Contact Info) Description 11/25/2024 9:00 AM EDT Office Visit [facility] MEDICINE [address] [place] [phone] Bárbara Rader MD [address] [place] [address] documented as of this encounter Goals Goal Patient Goal Type Associated Problems Recent Progress Patient-Stated? Author Blood Pressure < 140/90 Blood Pressure 142/70( 024 1:19 PM EST) No Luke Gayle, PharmD documented as of this encounter Procedures Procedure Name Priority Date/Time Associated Diagnosis Comments URINALYSIS, COMPLETE, WITH REFLEX TO CULTURE Routine 06/20/2024 1:00 PM EDT Urinary incontinence, unspecified type documented in this encounter Results * (ABNORMAL) Urinalysis, Complete, with Reflex to Culture (06/20/2024 1:00 PM EDT) Color Urine Yellow [facility] Appearance Urine Cloudy [facility] PH 6.5 5.0 - 9.0 [facility] Glucose Urine UA Negative Negative mg/dL [facility] Urine Blood Trace(A) Negative [facility] Specific [place] - Urine 1.010 1.005 - 1.025 [facility] Urine Protein Negative Neg-Trace mg/dL [facility] Urine Ketones Negative Negative mg/dL [facility] Nitrite Urine Negative Negative [facility] Leukocyte Esterase Urine Large (3+)(A) Negative [facility] RBC Urine 0-2 0 - 2 /HPF [facility] Urine WBC >50(A) 0 - 5 /HPF [facility] Urine Squamous Epithelial Cell 0-2 0 - 2 /HPF [facility] Urine Bacteria 4+ None Seen [facility] Hyaline Casts, Urine 0-2 0 - 2 /LPF [facility] Urine 06/20/2024 1:00 PM EDT 06/20/2024 3:09 PM EDT Narrative [facility] - 06/20/2024 3:25 PM EDT Urine, Clean Catch Carmine Patel MD LAB URINE ORDERABLES Final Result Performing Organization Address City/State/[facility] Co de Phone Number [facility] [address] [place] [address] [phone] documented in this encounter Visit Diagnoses Diagnosis Urinary incontinence, unspecified type- Primary documented in this encounter Additional Health Concerns Assessment Noted Time PHQ-9 Depression Total Score: 0 10/09/19 23 11:12 AM EST documented as of this encounter Care Teams Design Quality Engineer Relationship Specialty Start Date End Date Carmine Patel MD [address] [place] [phone] PCP - General Internal Medicine 11/16/15 07/15/24 Bárbara Rader MD [address] [place] [address] PCP - General Internal Medicine 07/16/24 Luke Gayle, JarettD [address] [place] [address] Pharmacist Internal Medicine 09/04/22 [facility] 07/10/24 documented as of this encounter
--- OUTSIDE RECORDS SUMMARY | 2024-10-27 10:27 | XMS_ITS | Continuity of Care Document ---
Author Organization [place] [employer] [facility] [place] [facility] Address [address] [place] [phone] Care Team Providers Care District Plant Engineer Name Role Phone HIM [facility] OTHER [facility] OTHER Assessment No assessment recorded. Plan of Treatment Reminders Order Date Submit Date Provider Last Modified By Organization Details Last Modified Time Details Appointments None recorded. Lab urinalysis , dipstick [address], [address] [place] [address], [id number], 16:56:12 BMP, serum or plasma [address], [address] [place] [address], [phone], 16:56:12 culture, urine 2024 025 OG[facility], [address] [place] [address], [id number], 10:05:34 Referral None recorded. Procedures None recorded. Surgeries None recorded. Imaging None recorded. Medication Orders None recorded. Patient TargetsNo targets recorded. Patient InstructionsNo instructions recorded. Reason for Referral None Reported. Results Created Date Observation Date Name Description Value Unit Range Abnormal Flag Note LastModifiedBy Organization Detail LastModifiedTime 10/03/19 25 10/03/2024 elect hernan kim am No observ ation record ed. gbaci [address], [phone], 10/03/2024 18:07:20 Result Notes None recorded. Medical Equipment None Reported. Allergies Allergen ID Allergen Name Allergen Category Reaction Reaction Severity Criticality Documentation Date Start Date Code Code System Note Provider Name and Address Organization Details Recorded Time 03994 lisinopri l medicatio n Not available Not available Not available 10/03/2024 93679 RxNorm Not Available [facility] - production 14:54:18 [...] t Available Vitals Date Recorded Heart rate Respiratory rate Oxygen saturation Oxygen saturation in Arterial blood by Pulse oximetry Inhaled oxygen flow rate Body weight Body height Body temperature Systolic blood pressure Diastolic blood pressure Provider Name and Address Organization Details Last Updated DateTime 5 60 /min 18 /min 100 % 100 % 2 L/min 691255 g 160.02 cm 98.7 [degF] 194 mm[Hg] 91 mm[Hg] Not Available [facility] - production 5 15:59:16 Social History None recorded. Functional Status None recorded. Mental Status None recorded. Family History Nothing Reported. Medical History No medical history recorded. Gynecological HistoryNo gynecological history recorded. Obstetrics History GPAL:G 0 P 0 0 0 0 Past Encounters Encounter ID Performer Location Encounter Start Date Encounter Closed Date Diagnosis/Indication Diagnosis SNOMED-CT Code Diagnosis ICD10 Code Diagnosis Note [id number] KAMRYN GERONIMO MD Main - [facility] [address] [place] [phone] 10/03/2024 16:28:44 10/03/2024 22:24:33 Contusion of orbital tissue of right eye [id number] S05.11XA Evaluation in the field was performed by my electrical and radio mechanic colleague, as noted above, I provided real-time direction and supervisio n for this visit. Liberian interprete r was used to communicat e [...] room air. Low-grade temperatur e, but the electrical and radio mechanic reports that the room is very warm.Exam: Small bruising and swelling under the right eye and temporal area, with no periorbita l ecchymosis ( raccoon eyes ). No tenderness to palpation over the affected area or the bridge of the nose. Normal eye movement with no reported pain. The electrical and radio mechanic reports rhonchi on lung examinatio n. No [...] exac erbation of chronic obstructive pulmonary disease [id number] J44.1 Patient denies shortness of breath, cough, or upper respirator y infection symptoms. The electrical and radio mechanic reported rhonchi on lung examinatio n. On [...] the first dose administer ed by the electrical and radio mechanic. -Due to the lack of wheezing, her stable oxygen saturation on chronic oxygen, and her history of diabetes requiring insulin, the decision was made not to start Prednisone to avoid hyperglyce daniela.-Red flags were discussed with the patient. [id number] DA MITCHELL MD Main - [address] [id number] 10/16/2024 20:52:29 10/21/2024 15:57:41 Headache [id number] R51.9 Pain in left arm [id number] 00 M79.602 [id number] Mar Jiménez MD [facility] - [address] [phone] 10/18/2024 15:45:59 10/21/2024 16:36:29 Altered mental status [id number] R41.82 Evaluation in the field was performed by my electrical and radio mechanic colleague, as noted above, I provided real-time direction and supervisio n for this visit. 79 yo F PMHx HTN, CAD, T2DM, COPD on 2L home O2 p/w ongoing ANGELO, body aches for which she was seen yesterday by [facility]. Repeat visit requested by son as pt awoke this AM and felt confused, spontaneou sly resolved. Triage note reports dizziness however pt denies this. ANGELO resolved. Endorsed urinary frequency without dysuria, fevers, hematuria. On electrical and radio mechanic eval VS wnl, exam wnl including A+O [...] endorsed ongoing L shoulder/a rm pain. On electrical and radio mechanic exam not swelling or deformity, rotator cuff [...] shortness of breath, cough, chest pain, fever. Health Concerns Section Related Observation LastModified by Organization Detai ls LastModified Time None Recorded Concern Status LastModified by Organization Details LastModified Time None Recorded Payers Encounter Date Sequence Insurance Name Policy Number Policy Elizondo Covered Member ID Elizondo Member ID Guarantor Name 10/18/2024 1 [facility] - DOS ON OR AFTER 2022 - DUAL ELIGIBLE - CARE HOME OPTIONS AND ONE CARE (MEDICARE REPLACEMENT/ADV ANTAGE - HMO) Magalie Stein [id number] Magalie Stein Notes Date Note Type Note Provider Name and Address Organization Details Recorded Time 10/18/2024 text/html CRC Nurse Triage Notes (Dixie Zavala - VELVET): Reason For Request: Patient feels Dizzy, and has been sleeping all day, thinks the patient may need a blood test. Chief Complaints: Altered mental status, Fatigue PMH: Coronary Artery Disease, Hypertension, COPD/Asthma, Diabetes Mellitus Type 2, Urinary Tract Infections (UTI), Chronic Kidney Disease PMH Reviewed at 10/18/2024 - 14:00 Allergies Reviewed at 10/18/2024 - : Comments: Hardboard Panel Printer verified the member's name//address and phone number. [...] s/s and seek emergency treatment if needed. Door Frame Builder Organization Information for [employer] Oak[employer] Business Legal Name: [employer]? Address: [address] [place] [address], Exercise Manager: Too Welch MD CLIA No.: [id number] Door Frame Builder POC Test Results from [employer] Urine Dipstick (16:02:19) Urine leukocytes: 70+ PORSCHE Urine nitrites: - NIT Urine urobilinogen: 0.2-3.5 URO Urine protein: 15+-0.15 PRO Urine pH: 7.0 pH Urine blood: - BLO Urine specific gravity: 1.010 SG Urine ketones: 5+-0.5 KET Urine bilirubin: - RICO Urine glucose: - GLU ................... ................... ................... ................... ................... ................... ................... ........ Door Frame Builder Note From Efrain Oakley: PINA makes pt contact. She is seated in a chair in her living room and she turns and greets PINA. She is generally well appearing, wearing a NC, and making good eye contact. No stridor or sonorous respirations are heard, no facial droop or one-sided weakness are observed, and she is not bleeding anywhere. Pt is Liberian-speaking only, so order analyst services via cell phone are attempted. Pt has difficulty hearing and understanding the order analyst, so she calls her son on FaceTime [...] She consents to evaluation and treatment today. [facility] obtains vital signs and pt is assessed. Lung sounds are clear and nothing remarkable is noted upon physical exam. Urine sample is obtained via clean catch for culture and dip stick analysis. [facility] contacts [facility] and discusses the above. [facility] orders urine culture and a bmp. [facility] is unable to gain IV access for bmp. [facility] gives instructions for family to take pt to the ED if her confusion persists and decision about medication for possible UTI will be made after culture returns. Pt and family thank [facility] for coming. PINA is clear. Report completed by WINSTON Oakley [id number]. [facility] Lab Orders: urinalysis, dipstick: Performed BMP, serum or plasma: Not Performed Comment: Unable to obtain adequate sample amount. ................... ................... ................... ................... ................... ................... ................... ........ [facility] Consulted: Mar Jiménez ................... ................... ................... ................... ................... ................... ................... ........ Disposition: Fulfilled Mar Jiménez MD [address] [facility],[address] [facility], [place], [address], KAT PICHARDO 10/18/2024 21:29:19 OBGyn Episode No OBEpisode recorded.
--- OUTSIDE RECORDS SUMMARY | 2024-10-27 10:27 | XMS_ITS | Encounter Summary ---
Author Organization [employer] Address [address] [facility] [address] 7t [place] [address] Care Team Providers Care Tension Machine Operator Name Role Phone Carmine Patel MD Primary Care Provider Luke Gayle PharmD Unavailable Unavail able Bárbara Rader MD Primary Care Provide r Reason for Visit * Reason Onset Date Comments FYI 05/07/2024 Encounter Details Date Type Department Care Team (Late st Contact Info) Description 05/07/2024 Telephone [facility] [address] [place] [address] Carmine Patel MD [address] [place] [address] FYI Social History Tobacco Use Types Packs/Day [...] encounter Miscellaneous Notes * Telephone Encounter - Paul Metz RN - 05/07/2024 4:06 PM EDT Please see FYI below. * Telephone Encounter - Raf Somers - 05/07/2024 2:38 PM EDT Tc from Terence with [facility] stating pt is being seen in ER regarding fractured ankle and UTI. Terence stated they will be seeing pt for PT services twice a week for 8 weeks. If any questions you can contact Terence at [phone]. documented in this encounter Plan of Treatment Upcoming Encounters Date Type Department Care Team (Late st Contact Info) Description 11/25/2024 9:00 AM EDT Office Visit [facility] MED[facility] [address] [place] [address] Bárbara Rader MD [address] [place] [address] documented as of this encounter Goals Goal [...] documented as of this encounter Care Teams Tension Machine Operator Relationship Specialty Start Date End Date Carmine Patel MD [address] [place] [address] PCP - General Internal Medicine 11/16/15 07/15/24 Bárbara Rader MD [address] [place] [address] PCP - General Internal Medicine 07/16/24 Luke Gayle, PharmD [address] [place] [address] Pharmacist Internal Medicine 09/04/22 [facility] 07/10/24 documented as of this encounter
--- OUTSIDE RECORDS SUMMARY | 2024-10-27 10:27 | XMS_ITS | Encounter Summary ---
Author Organization [employer] Address 75 [facility] 7t [place] [address] Care Team Providers Care Machine Etcher Name Role Phone Carmine Patel MD Primary Care Provider +1- [phone] Luke Gayle PharmD Unavailable Unavail able Bárbara Rader MD Primary Care Provide r Encounter Details Date Type Department Care Team (Late st Contact Info) Description 06/11/2024 Orders Only [facility] CH[facility] MED & PEDS [address] [place], [place] [phone] Carmine Patel MD [address] [place], [place] [phone] Pruritus (Primary Dx) Social History Tobacco Use Types [...] Description 11/25/2024 9:00 AM EDT Office Visit [facility] MEDICINE [address] [place] [address] Bárbara Rader MD [address] [place] [address] documented as of this encounter Goals Goal Patient Goal Type Associated Problems Recent Progress Patient-Stated? Author Blood Pressure < 140/90 Blood Pressure 142/70( 024 1:19 PM EST) No Luke Gayle PharmD documented as of this encounter Visit Diagnoses Diagnosis Pruritus- Primary Unspecified pruritic disorder documented in this encounter Additional Health Concerns Assessment Noted Time PHQ-9 Depression Total Score: 0 10/09/19 23 11:12 AM EST documented as of this encounter Care Teams Machine Etcher Relationship Specialty Start Date End Date Carmine Patel MD [address] [place] [address] PCP - General Internal Medicine 11/16/15 07/15/24 Bárbara Rader MD [address] [place] [address] PCP - General Internal Medicine 07/16/24 Luke Gayle PharmD [address] [place] [address] Pharmacist Internal Medicine 09/04/22 [facility] [place] 07/10/24 documented as of this encounter
--- OUTSIDE RECORDS SUMMARY | 2024-10-27 10:27 | XMS_ITS | Encounter Summary ---
Author Organization [employer] Address [address] [facility] [address] 7t [place] [address] Care Team Providers Care Rv Repair Technician Name Role Phone Carmine Patel MD Primary Care Provider [phone]- [phone] Luke Gayle PharmD Unavailable Unavail able Bárbara Rader MD Primary Care Provide r Reason for Visit * Reason Onset Date Comments Call Back Request 02/06/2024 Encounter Details Date Type Department Care Team (Late st Contact Info) Description 02/06/2024 Telephone [facility] MEDICINE [address] [place] [address] Carmine Patel MD [address] [place] [address] Call Back Request Social History Tobacco Use Types Packs/Day [...] encounter Miscellaneous Notes * Telephone Encounter - Jen Orr RN - 02/07/2024 10:25 AM EDT Returned call to pt son regarding message below. Informed of DME rx's sent to [facility] last week andshould contact them to see if they are ready for fish bait picker. Advised son on PCP recommendations for sleep problems. Son verbalized understanding and agrees with plan. Son advised to call our office if he has any further issues with DME's or if a new problem arises prior to recall date. * Telephone Encounter - Ami Haq - 02/06/2024 11:33 AM EDT Tc from son requesting a call back stated during last visit with PCP Dr Patel informed will sendmedication for sleep and multiple DME and nothing is happening Please contact at [phone] documented in this encounter Plan of Treatment Upcoming Encounters Date Type Department Care Team (Late st Contact Info) Description 11/25/2024 9:00 AM EDT Office Visit [facility] MEDICINE [address] [place] [phone] Bárbara Rader MD [address] [place] [address] documented as of this encounter Goals Goal Patient Goal Type Associated Problems Recent Progress Patient-Stated? Author Blood Pressure < 140/90 Blood Pressure 142/70( 024 1:19 PM EST) No Luke Gayle, Shan documented as of this encounter Visit Diagnoses Not on filedocumented in this encounter Additional Health Concerns Assessment Noted Time PHQ-9 Depression Total Score: 0 10/09/19 23 11:12 AM EST documented as of this encounter Care Teams Rv Repair Technician Relationship Specialty Start Date End Date Carmine Patel MD [address] [place] [address] PCP - General Internal Medicine 11/16/15 07/15/24 Bárbara Rader MD [address] [place] [address] PCP - General Internal Medicine 07/16/24 Luke Gayle, PharmD [address] [place] [address] Pharmacist Internal Medicine 09/04/22 [facility] 07/10/24 documented as of this encounter
--- OUTSIDE RECORDS SUMMARY | 2024-10-27 10:27 | XMS_ITS | Clinical Summary ---
Author Organization [employer] Address [address] [place] [address] Care Team Providers Care Family Law Attorney Name Role Phone Luke Gayle PharmD Unavailable Unavail able Bárbara Rader MD Primary Care Provide r Allergies Active Allergy Reactions Criticality Noted Date Comments Lisinopril Cough,Unknown 05/04/2011 Medications Alcohol Swabs (Alcohol Prep) pads Active albuterol (2.5 MG/3ML) 0.083% nebulizer solution INHALE ONE AMPULE USING A NEBULIZER EVERY 6 HOURS NEEDED 540 mL 2 023 Active albuterol 108 (90 Base) MCG/ACT inhaler INHALE TWO PUFFS EVERY 6 HOURS NEEDED 8.5 g 2 023 Active TRUEplus Lancets 33G misc TEST BLOOD SUGAR THREE TIMES DAILY 100 each Active famotidine (Pepcid) 20 MG tabletIndications :Epigastric pain Take 1 tablet (20 mg) by mouth 2 times daily. 60 tablet 11 Active pravastatin (Pravachol) 40 MG tabletIndications :Other hyperlipidemia TAKE ONE TABLET EVERY EVENING 90 tablet 3 Active carvedilol (Coreg) 12.5 MG tablet Take 1 tablet (12.5 mg) by mouth with breakfast and with evening meal. 30 tablet Active losartan (Cozaar) 50 MG tablet Take 1 tablet (50 mg) by mouth Once per day. 30 tablet Active pantoprazole (ProtoNix) 20 MG EC tablet Take 1 tablet (20 mg) by mouth before breakfast. Do not crush, chew, or split. 30 tablet 11 Active insulin lispro (HumaLOG) 100 UNIT/ML injectionIndicati ons:Type 2 diabetes mellitus with other specified complication, without long-term current use of insulin (CMS/HCC) Inject 5 Units under the skin with breakfast, with lunch, and with evening meal. Inject 5 units under the skin three times a day with meals and at bedtime 10 mL 11 Active pen needle 33G x 4 mm misc Inject 1 each under the skin 4 times daily. Use as instructed 360 each 3 024 2024 Active Continuous Glucose E Learning Manager (FreeStyle Silvana 2 Java) deviceIndications :Type 2 diabetes mellitus with other specified complication, without long-term current use of insulin (CMS/HCC) Scan sensor every 8 hours 1 each Active Continuous Glucose Sensor (FreeStyle Silvana 2 Sensor) miscIndications:T ype 2 diabetes mellitus with other specified complication, without long-term current use of insulin (CMS/HCC) Apply 1 sensor every 14 days 2 each Active glucose blood (FreeStyle Precision Charles Test) test stripIndications: Type 2 diabetes mellitus with other specified complication, without long-term current use of insulin (CMS/HCC) Use to test blood sugar 2 times daily 100 each 12 024 2024 Active Blood Glucose Monitoring Suppl (FreeStyle Laurel Lite) w/Device kitIndications:Ty pe 2 diabetes mellitus with other specified complication, without long-term current use of insulin (CMS/HCC) Use to test blood sugar 2 times daily 1 kit Active ergocalciferol (Vitamin D2) 1.25 MG (47580 UT) capsule TAKE ONE CAPSULE EVERY WEEK 12 capsule 5 024 Active insulin glargine (Lantus SoloStar) 100 UNIT/ML penIndications:Ty pe 2 diabetes mellitus with other specified complication, without long-term current use of insulin (CMS/HCC) Inject 20 Units under the skin at bedtime. 3 mL 3 024 Active furosemide (Lasix) 40 MG tablet TAKE ONE TABLET EVERY MORNING 90 tablet 1 Active loratadine (Claritin) 10 MG tabletIndications :Pruritus Take 1 tablet (10 mg) by mouth Once per day. 30 tablet Active Easy Touch Lancets 33G/Twist miscIndications:T ype 2 diabetes mellitus with other specified complication, without long-term current use of insulin ([facility]) TEST BLOOD SUGAR TWICE DAILY 100 each 3 Active Ketotifen Fumarate 0.035 % solutionIndicatio ns:Allergic conjunctivitis of left eye Administer 1 drop into affected eye(s) every 12 (twelve) hours if needed (twice a day f needed on affected eye). 5 mL 1 Active glucose blood (FREESTYLE LITE) test strip Please use to check BS 3x daily 100 strip 11 Active Janumet XR 50-1000 MG per 24 hr tabletIndications :Type 2 diabetes mellitus with other circulatory complications (CMS/HCC) TAKE 1 TABLET BY MOUTH EVERY EVENING WITH FOOD 30 tablet 5 025 Active FREESTYLE LITE test strip TEST BLOOD SUGAR THREE TIMES DAILY 250 strip 024 2024 Discontinued(R eorder (will not trigger notification to Pharmacy)) Janumet XR 50-1000 MG per 24 hr tabletIndications :Type 2 diabetes mellitus with other circulatory complications ([facility]) TAKE ONE TABLET EVERY EVENING WITH FOOD 30 tablet 5 024 2024 Discontinued Active Problems Problem Noted Date Diagnosed Date UTI symptoms 08/05/2024 Chronic bronchitis 07/16/2024 Assessment & Plan (07/16/2024 12:43 PM EDT): Continue to follow with specialist she has an appointment on 07/18/24 Recurrent UTI 07/16/2024 Assessment & Plan (08/05/2024 1:57 PM EST): Patient reports she has an urology appointment on 09/11/24 I advised not to miss this appointed Allergic conjunctivitis of left eye 07/16/2024 Urinary incontinence 01/18/2024 Left hip pain 02/26/2023 Assessment & Plan (02/26/2023 5:19 PM EDT): With POS inocencio and severiano test upon examination with tenderness on SI joint and trochanteric prominence. Will benefit from further evaluation from ortho. Referral placed. Appointment with PCP scheduled for 03/08/23. Short course of percocet offered. Stage 3 chronic kidney disease 07/22/2021 Type 2 diabetes mellitus 07/16/2019 Assessment & Plan (08/05/2024 1:57 PM EST): Diabetes is: controlled - Lab Results Component Value Date HGBA1C 7.0 (A) 06/03/2024 HGBA1C 6.8 (A) 10/24/2023 HGBA1C 6.5 (A) 06/18/2023 - Lab Results Component Value Date MICROALBUR 19.0 06/20/2024 CREATININE 0.69 07/06/2024 -Changes: none - Diabetic eye exam:up to date - Diabetic foot exam:up to date - Continue lifestyle modifications - Continue current medications - Follow up: 3 months Assessment & Plan (07/16/2024 12:45 PM EDT): Diabetes is: controlled - Lab Results Component Value Date HGBA1C 7.0 (A) 06/03/2024 HGBA1C 6.8 (A) 10/24/2023 HGBA1C 6.5 (A) 06/18/2023 - Lab Results Component Value Date MICROALBUR 19.0 06/20/2024 CREATININE 0.69 07/06/2024 -Changes: none - Diabetic eye exam:up to date - Diabetic foot exam:up to date - Continue lifestyle modifications - Continue current medications - Follow up: 3 months Disorder of patellofemoral joint 06/19/2017 Sleep apnea 06/18/2017 Left ventricular diastolic dysfunction 6 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 - Home BP monitoring 1-2 x day with goal of <140/90. - Seek immediate medical attention for chest pain, palpitations, SOB, syncope, or sudden changes in mental status. - Do not change or discontinue current prescriptions without first consulting health care provider Impaired fasting glucose 12/06/2011 Obesity 12/06/2011 Encounters Date Type Department Care Team Description 10/16/2024 Telephone C MEDICINE [address] [place] [address] Bárbara Rader MD Nurse Triage 10/10/2024 Refill [facility] [address] [place] [address] Carmine Patel MD Type 2 diabetes mellitus with other circulatory complications ([facility]) 10/03/2024 Telephone C MEDICINE [address] [place] [address] Bárbara Rader MD Durable Medical Equipment 10/03/2024 Telephone C MEDICINE [address] [place] [address] Bárbara Rader MD Nurse Triage 10/02/2024 Refill [facility] [address] [place] [address] Bárbara Rader MD 09/30/2024 Telephone C MEDICINE [address] [place] [address] Jae Keen [place] [employer] Medical Equipment 09/19/2024 Telephone C MEDICINE [address] [place] [address] Bárbara Rader MD Appointment Request 09/15/2024 Telephone C MEDICINE [address] [place] [address] Bárbara Rader MD Appointment Request 09/03/2024 Telephone [facility] [address] [place] [address] Bárbara Rader MD Durable Medical Equipment 08/11/2024 Telephone C MEDICINE [address] [place] [address] Bárbara Rader MD 08/08/2024 Telephone C MEDICINE [address] [place] [address] Bárbara Rader MD 08/06/2024 Orders Only [facility] [address] [place] [address] Bárbara Rader MD 08/05/2024 1:15 PM EST [facility] [place] [address] Bárbara Rader MD UTI symptoms (Primary Dx); Type 2 diabetes mellitus with other specified complication, without long-term current use of insulin ([facility]); Recurrent UTI 08/05/2024 Travel from Last 3 Months Immunizations Name Administration Dates Next Due Influenza High-dose Quadriva lent Preservative Free 06/18/2023,06/09/2022,07/07/2021 Influenza injectable quadriv alent IIV4 with preservative 07/27/2016 Influenza, High Dose Seasona l, Preservative Free 06/03/2024,07/16/2019,07/31/2018,06/06 Influenza, IIV3, injectable 07/27/2014, 3,07/05/2011 Influenza, Split (incl. efren fied surface antigen) 07/19/2012 Influenza, intradermal, quad rivalent, preservative free 05/15/2016 Influenza, seasonal, injecta ble, preservative free 05/28/2020 Novel [id number], all formulations 05/15/2016 Pneumococcal Conjugate PCV 13 05/03/2015 Pneumococcal Polysaccharide PPSV23 07/27/2014, Tdap 07/19/2012 Zoster, Recombinant 01/17/2021,10/06/2020 Zoster, live 05/03/2015 Social History Tobacco Use Types Packs/Day Years Used Date Smoking Tobacco: Former Cigarettes Q uit: 1989 Passive Smoke Exposure: Past Smokeless Tobacco: Never Tobacco Cessation:Counseling Given: Not Answered Alcohol Use Standard Drinks/Week Comments Never 0 [...] not to disclose 2021 10:21 AM EDT Last Filed Vital Signs Vital Sign Reading Time Taken Comments Blood Pressure 142/70 08/05/2024 1:19 PM EST w m eds Pulse 70 08/05/2024 1:19 PM EST Temperature 36.8 ??C (98.3 ??F) 08/05/2024 1:19 PM ES T Respiratory Rate 20 08/05/2024 1:19 PM EST Oxygen Saturation 96% 08/05/2024 1:19 PM EST Inhaled Oxygen Concentration - - Weight 116 kg (255 lb) 08/05/2024 1:19 PM EST Height 152.4 cm (5') 08/05/2024 1:19 PM EST Body Mass Index 49.8 08/05/2024 1:19 PM EST Plan of Treatment Upcoming Encounters Date Type Department Care Team (Late st Contact Info) Description 11/25/2024 9:00 AM EDT Office Visit [facility] [address] [place] [address] Bárbara Rader MD [address] [facility] [place] [address] Health Maintenance Due Date Last Done Comments Alcohol/Substance Use Screening 1957 RSV Patients and Patients Aged 60 years or older (1 - 1-dose 75+ series) 2021 DTaP/Tdap/Td Vaccines (2 - Td or Tdap) 07/19/2022 07/19/2012 COVID-19 Vaccine ( season) 2024 07/31/2022, 02/09/2022, 08/31/2021, Additional history exists Eye Exam 08/22/2024 08/22/2023 Diabetes: Hemoglobin A1C 09/02/2024 024, 10/24/2023, 06/18/2023, Additional history exists Diabetes: Foot Exam 06/03/2025 06/03/2024 Diabetes: Urine Protein Screening 06/20/2025 06/20/2024, 08/17/2020 Lipid Panel 06/20/2025 06/20/2024, 08/17/2020 SDOH Screening 07/09/2025 07/09/2024 Depression Screening 07/16/2025 07/16/2024, 07/16/20 24 Tobacco Screening 08/05/2025 08/05/2024 Pneumococcal Vaccine: 50+ Years Completed 05/03/2015, 07/27/2014, 03/01/2012 Zoster Vaccines Completed 01/17/2021, 09/18, 05/03/2015 Influenza Vaccine Completed 06/03/2024, , 06/09/2022, Additional history exists Hepatitis C Screening Completed 06/20/2024 HIB Vaccines Aged Out No longer eligi ble based on patient's age to complete this topic HPV Vaccines Aged Out No longer eligi ble based on patient's age to complete this topic Hepatitis A Vaccines Aged Out No long er eligible based on patient's age to complete this topic Hepatitis B Vaccines Aged Out No long er eligible based on patient's age to complete this topic IPV Vaccines Aged Out No longer eligi ble based on patient's age to complete this topic Meningococcal Vaccine Aged Out No aniceto amira eligible based on patient's age to complete this topic RSV under 20 months Aged Out No longe r eligible based on patient's age to complete this topic Rotavirus Vaccines Aged Out No longer eligible based on patient's age to complete this topic Goals Goal Patient Goal Type Associated Problems Recent Progress Patient-Stated? Author Blood Pressure < 140/90 Blood Pressure 142/70( 024 1:19 PM EST) No Luke Gayle, Shan Procedures Procedure Name Priority Date/Time Associated Diagnosis Comments URINALYSIS, COMPLETE, WITH REFLEX TO CULTURE Routine 08/06/2024 9:21 AM EST AMB REFERRAL TO UROLOGY Routine 08/06/2024 Recurrent UTI CULTURE, URINE, ROUTINE Routine 08/06/2024 12:00 AM EST POCT GLUCOSE Routine 08/05/2024 1:20 PM EST Type 2 diabetes mellitus with other specified complication, without long-term current use of insulin (CMS/HCC) HEPATITIS C AB W/REFL TO HCV RNA, QN, PCR Routine 06/20/2024 2:54 PM EDT Type 2 diabetes mellitus with other specified complication, without long-term current use of insulin (CMS/HCC) LIPID PANEL, STANDARD Routine 06/20/2024 2:54 PM EDT Type 2 diabetes mellitus with other specified complication, without long-term current use of insulin (CMS/HCC) ALBUMIN, RANDOM URINE W/CREATININE Routine 06/20/2024 1:00 PM EDT Type 2 diabetes mellitus with other specified complication, without long-term current use of insulin (CMS/HCC) POCT GLYCATED HEMOGLOBIN, TOTAL Routine 06/03/2024 11:36 AM EDT Type 2 diabetes mellitus with other specified complication, without long-term current use of insulin (CMS/HCC) from Last 3 Months or Most Recently Relevant to Health Maintenance Results * (ABNORMAL) Urinalysis, Complete, with Reflex to Culture (08/06/2024 9:21 AM EST) Color Urine Yellow [facility] Appearance Urine Cloudy [facility] PH 5.5 5.0 - 9.0 [facility] Glucose Urine UA Negative Negative mg/dL [facility] Urine Blood Trace(A) Negative [facility] Specific [place] - Urine 1.010 1.005 - 1.025 [facility] Urine Protein Negative Neg-Trace mg/dL [facility] Urine Ketones Negative Negative mg/dL [facility] Nitrite Urine Negative Negative [facility] Leukocyte Esterase Urine Large (3+)(A) Negative [facility] RBC Urine 0-2 0 - 2 /HPF [facility] Urine WBC >50(A) 0 - 5 /HPF [facility] Urine Squamous Epithelial Cell 3-5 0 - 2 /HPF [facility] Urine Bacteria 1+ None Seen [facility] Hyaline Casts, Urine 0-2 0 - 2 /LPF [facility] 08/06/2024 9:21 AM EST 08/06/2024 11:45 AM EST Narrative [facility] - 08/06/2024 12:04 PM EST Urine, Clean Catch us Bárbara Raymundo MD LAB URINE ORDERABLES Final Result Performing Organization Address [facility]/State/ZIP Co de Phone Number [facility] [address] [place] [phone] * Culture, Urine, Routine (08/06/2024 12:00 AM EST) Urine Urine specimen obtained by clean catch procedure / Unknown 08/06/2024 08/06/2024 Comment:CC Narrative [facility] - 08/07/2024 1:22 PM EST Urine Culture Report Result Urine Culture 10,000 to 50,000 cfu/ml Urine Culture Mixed bacterial stef characteristic of Urine Culture urogenital contamination. Specimen Source: Urine clean catch Bárbara Raymundo MD LAB MICROBIOLOGY - GE NERAL ORDERABLES Final Result Performing Organization Address [facility] Co de Phone Number [facility] [address] [place] [phone] [phone] * Referral to Urology (08/06/2024) Bárbara Raymundo MD OUTPATIENT REFERRAL O RDERABLES Final Result * POCT Glucose (08/05/2024 1:20 PM EST) Glucose Blood, POC 112 60 - 200 mg/dL QC Media Lot # [id number] Lot# Expiration Date Blood Capillary blood specimen / Unknown 08/05/2024 1:20 PM EST Bárbara Raymundo MD POINT OF CARE TEST EN TER/EDIT ORDERABLES Final Result * Hepatitis C Antibody with Reflex to HCV, RNA, Quantitative, Real-Time PCR (06/20/2024 2:54 PM EDT) Pathologist [facility] Hepatitis C Antibody Nonreactive Nonreactive [facility] Comment:Antibodies to HCV no t detected; does not exclude early acuteHCV infection. Blood Venous blood specimen / Unknown 06/20/2024 2:54 PM EDT 06/20/2024 2:54 PM EDT us Carmine Patel MD LAB BLOOD ORDERABLES Final Result Performing Organization Address City/[facility]/ZIP Co de Phone Number [facility] [address] [place] [phone] * Lipid Panel, Standard (06/20/2024 2:54 PM EDT) Triglycerides 81 <150 mg/dL [facility] Comment:Desirable Triglyceri de: less than 150 mg/dLBorderline High Triglyceride 150-199 mg/dLHigh Triglyceride: 200-499 mg/dLVery High Triglyceride: greater than or equal to 5OO mg/dL Cholesterol 152 <200 mg/dL [facility] Comment:Desirable Cholestero l: less than 200 mg/dLBorderline High Cholesterol: 200-239 mg/dLHigh Cholesterol: greater than 239 mg/dL LDL Cholesterol Calculated 86 <100 mg/dL [facility] Comment:Desirable LDL: less than 100 mg/dLNear Optimal/Above Optimal LDL: 110- 129 mg/dLBorderline High LDL: 130-159 mg/dLHigh LDL: 160-189 mg/dLVery High LDL: greater than or equal to 190 mg/dL HDL Cholesterol 50 >40 mg/dL [facility] Comment:Desirable HDL: great er than 40 mg/dL Note: This HDL assay may give artificially low results in patients with liver disease. Blood Venous blood specimen / Unknown 06/20/2024 2:54 PM EDT 06/20/2024 2:54 PM EDT us Carmine Patel MD LAB BLOOD ORDERABLES Final Result Performing Organization Address [facility] Co de Phone Number [facility] [address] [place] [phone] * (ABNORMAL) Albumin, Random Urine W/Creatinine (06/20/2024 1:00 PM EDT) Creatinine, Urine 35.87 mg/dL [facility] Microalbumin Urine 19.0 mg/L [facility] Microalbum Creatinine Ratio Ur 52.9(H) <30 ug/mg cr [facility] Comment:Albumin/Creatinine R atio Reference Ranges: Normal: < 30 ug/mg creatinine Microalbuminuria: 30 - 300 ug/mg creatinineClinical Albuminuria: > 300 ug/mg creatinine Urine (Urine, Random) 06/20/2024 1:00 PM EDT 06/20/2024 3:09 PM EDT us Carmine Patel MD LAB URINE ORDERABLES Final Result Performing Organization Address [facility] Co de Phone Number [facility] [address] [place] [phone] * (ABNORMAL) POCT HGB A1C (06/03/2024 11:36 AM EDT) Hemoglobin A1C 7.0(A) 4.0 - 6.0 % QC Media Lot # [id number] Lot# Expiration Date ,[id number] Blood 06/03/2024 11:3 6 AM EDT Carmine Patel MD POINT OF CARE TEST ENTER/ED IT ORDERABLES Final Result from Last 3 Months or Most Recently Relevant to Health Maintenance Insurance [facility] Care Teams Family Law Attorney Relationship Specialty Start Date End Date Bárbara Rader MD [address] [place] [phone] PCP - General Internal Medicine 07/16/24 Luke Gayle, PharmD Pharmacist Internal Medicine 09/04/22 [facility] 07/10/24
--- OUTSIDE RECORDS SUMMARY | 2024-10-27 10:27 | XMS_ITS | Encounter Summary ---
Author Organization [employer] Address [address] [facility] [address]t [place] [address] Care Team Providers Care Aircraft Shipping Checker Name Role Phone Carmine Patel MD Primary Care Provider Luke Gayle PharmD Unavailable Unavail able Bárbara Rader MD Primary Care Provide r Encounter Details Date Type Department Care Team (Late Contact Info) Description 06/21/2023 Orders Only [facility] [address] [place], [place] [phone] Carmine Patel MD [address] [place], [place] [phone] Right hip pain (Primary Dx) Social History Tobacco Use Types Packs/Day Years Used Date Smoking Tobacco: Former Cigarettes Q uit: 1989 Smokeless Tobacco: Never Alcohol Use Standard Drinks/Week Comments Never 0 (1 standard drink = 0.6 oz pur e alcohol) Depression Answer Date Recorded Patient Health Questionnaire-9 Score 0 10/09/2022 Depression Answer Date Recorded Patient Health Questionnaire-2 [...] Encounters Date Type Department Care Team (Late Contact Info) Description 11/25/2024 9:00 AM EDT Office Visit [facility] MED[facility] [address] [place] [address] Bárbara Rader MD [address] [place] [address] documented as of this encounter Goals Goal Patient Goal Type Associated Problems Recent Progress Patient-Stated? Author Blood Pressure < 140/90 Blood Pressure 142/70( 024 1:19 PM EST) No Luke Gayle, PharmGloria documented as of this encounter Visit Diagnoses Diagnosis Right hip pain- Primary Pain in joint, pelvic region and thigh documented in this encounter Additional Health Concerns Assessment Noted Time PHQ-9 Depression Total Score: 0 10/09/19 23 11:12 AM EST documented as of this encounter Care Teams Aircraft Shipping Checker Relationship Specialty Start Date End Date Carmine Patel MD [address] [place] [address] PCP - General Internal Medicine 11/16/15 07/15/24 Bárbara Rader MD [address] [place] [address] PCP - General Internal Medicine 07/16/24 Luke Gayle, PharmD [address] [place] [address] Pharmacist Internal Medicine 09/04/22 [facility] 07/10/24 documented as of this encounter
--- OUTSIDE RECORDS SUMMARY | 2024-10-27 10:27 | XMS_ITS | Clinical Summary ---
Author Organization [facility] Address [address] [place] [address] Phone Care Team Providers Care Drop Wire Aliner Name Role Phone Carmine Patel MD Primary Care Provider Allergies Active Allergy Reactions Criticality Noted Date Comments Lisinopril Other (see comments) 05/04/2011 Medications Multiple Vitamin (multivitamin) tablet Take 1 tablet by mouth 1 (one) time each day Active losartan (COZAAR) 100 MG tablet Take 100 mg by mouth 1 (one) time each day Active carvedilol (COREG) 25 MG tablet Take 25 mg by mouth in the morning and 25 mg in the evening. Take with meals. Active pravastatin (PRAVACHOL) 40 MG tablet Take 40 mg by mouth 1 (one) time each day Active SITagliptin (JANUVIA) 50 MG tablet Take 50 mg by mouth 1 (one) time each day Active Janumet XR 50-1000 MG tablet sustained-releas e 24 hour Take 1 tablet by mouth 1 (one) time each day 04/12/2022 Active hydrALAZINE 25 MG tablet Take 25 mg by mouth in the morning and 25 mg in the evening and 25 mg before bedtime. Active pantoprazole (PROTONIX) 40 MG EC tablet Take 40 mg by mouth every morning 11/01/2022 Active spironolactone (ALDACTONE) 25 MG tablet Take 25 mg by mouth every morning 11/01/2022 Active famotidine (PEPCID) 20 MG tablet Take 20 mg by mouth every night 11/01/2022 Active isosorbide mononitrate (ISMO,MONOKET) 20 MG tablet TAKE ONE TABLET BY MOUTH EVERY MORNING 90 tablet 3 04/27/2023 Active furosemide (LASIX) 40 MG tablet Take 1 tablet by mouth every morning 04/04/2023 Active ergocalciferol 1.25 MG (03295 UT) capsule 50,000 Units 1 (one) time per week 06/26/2023 Active Active Problems Problem Noted Date Diagnosed Date Chronic kidney disease, stage 2 (mild) 4 Hip pain 02/26/2023 08/15/2023 Overview (08/15/2023): Last Assessment & Plan: With POS inocencio and severiano test upon examination with tenderness on SI joint and trochanteric prominence. Will benefit from further evaluation from ortho. Referral placed. Appointment with PCP scheduled for 03/08/23. Short course of percocet offered. 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 Hyperlipidemia 12/06/2011 Impaired fasting glucose 12/06/2011 Obesity 12/06/2011 Immunizations Name Administration Dates Next Due H1N1 All Forms 05/15/2016 Influenza (IM) Preservative Free 05/28/2020 Influenza Split 07/19/2012 Influenza Split High Dose Pr eservative Free IM 07/16/2019,07/31/2018,06/06/2017 Influenza, Intrademal, Quadr ivalent, Preservative Free 05/15/2016 Influenza, Quadrivalent, With Preservative 07/27 Influenza, Unspecified 06/18/2023 Pneumococcal Conjugate 13-Valent 05/03/2015 Pneumococcal Polysaccharide 07/27/2014, 2 Shingrix 01/17/2021,10/06/2020 Tdap 07/19/2012 Zoster 05/03/2015 Family History Medical History Relation Comments Cancer Brother Diabetes Mother Heart disease Mother Hypertension Mother Relation Status Comments Brother Father Mother Social History Tobacco Use Types Packs/Day Years Used Date Smoking Tobacco: Never Smokeless Tobacco: Never Tobacco Cessation:Counseling Given: Not Answered Alcohol Use Standard Drinks/Week Comments Never 0 (1 standard drink = 0.6 oz pur e alcohol) Comments Unknown Sex and Gender Information Value Date Recorded Sex Assigned at Not on file Legal Sex Female 4:10 PM EDT Gender Identity Not on file Sexual Orientation Not on file Last Filed Vital Signs Vital Sign Reading Time Taken Comments Blood Pressure 134/66 02/25/2024 1:38 PM EDT Pulse 74 08/15/2023 2:05 PM EST Temperature - - Respiratory Rate - - Oxygen Saturation 98% 08/15/2023 2:05 PM EST Inhaled Oxygen Concentration - - Weight 115 kg (254 lb 9.6 oz) 08/15/2023 2:05 PM EST Height - - Body Mass Index - - Plan of Treatment Upcoming Encounters Date Type Department Care Team (Late st Contact Info) Description 02/23/2025 1:15 PM EDT Office Visit [facility] [address] [place] [phone] Rubin Cordero MD [address] [facility] [address] [place] [address] Health Maintenance Due Date Last Done Comments Diabetes: Ophthalmology Exam 11/29/2022 Diabetes: Pedal Pulse Checked 11/29/2022 Diabetes: Sensory Foot Exam 11/29/2022 Diabetes: Visual Foot Exam 11/29/2022 Diabetes: Hemoglobin A1C 01/22/2024 024, 06/18/2023, 10/09/2022 Influenza Vaccine (#1) 2024 3, 05/28/2020, 07/16/2019, Additional history exists Pneumococcal Vaccine: 65+ Years Completed 05/03/2015, 07/27/2014, 03/01/2012 Hepatitis B Vaccine Aged Out No longe r eligible based on patient's age to complete this topic Insurance [facility] ([id number]) [facility] ([id number]) ZUHAIR ROBLERO [id number] Care Teams Drop Wire Aliner Relationship Specialty Start Date End Date Carmine Patel MD PCP - General Internal Medicine 05/02/21
--- OUTSIDE RECORDS SUMMARY | 2024-10-27 10:28 | XMS_ITS | Encounter Summary ---
Author Organization [employer] Address [address] 7[address] [place] [address] Care Team Providers Care Manager Books Name Role Phone Luke Gayle PharmD Unavailable Unavail able Bárbara Rader MD Primary Care Provide r Reason for Visit * Reason Onset Date Comments Med refill 10/02/2024 Encounter Details Date Type Department Care Team (Late st Contact Info) Description 10/02/2024 Refill [facility] 230 [place], [place] [phone] Bárbara Rader MD [address] [place], [place] [phone] Social History Tobacco Use Types Packs/Day Years [...] as of this encounter Miscellaneous Notes * Addendum Note - Inna De Leon RN - 10/02/2024 2:36 PM ESTAddended by: INNA DE LEON on: 10/02/2024 02:36 PM Modules accepted: Orders * Telephone Encounter - Minda Horowitz - 10/02/2024 2:22 PM EST Pts walked in requesting refill for freestyle lite test strips. Pts stated pt did not like the continuous glucose rn intake and returned them to the pharmacy. documented in this encounter Plan of Treatment Upcoming Encounters Date Type Department Care Team (Late st Contact Info) Description 11/25/2024 9:00 AM EDT Office Visit [facility] 230 [place] [address] Bárbara Rader MD [address] [place], [place] [phone] documented as of this encounter Goals Goal Patient Goal Type Associated Problems Recent Progress Patient-Stated? Author Blood Pressure < 140/90 Blood Pressure 142/70( 024 1:19 PM EST) No Luke Gayle, PharmD documented as of this encounter Visit Diagnoses Not on filedocumented in this encounter Additional Health Concerns Assessment Noted Time PHQ-9 Depression Total Score: 0 07/16/20 24 10:22 AM EDT documented as of this encounter Care Teams Manager Books Relationship Specialty Start Date End Date Bárbara Rader MD [address] [place] [id number] PCP - General Internal Medicine 07/16/24 Luke Gayle, PharmD Pharmacist Internal Medicine 09/04/22 [facility] [place] 07/10/24 documented as of this encounter
--- OUTSIDE RECORDS SUMMARY | 2024-10-27 10:28 | XMS_ITS | Encounter Summary ---
Author Organization [employer] Address [address] 7t [place] [address] Care Team Providers Care Transformer Coil Winder Name Role Phone Luke Gayle PharmD Unavailable Unavail able Bárbara Rader MD Primary Care Provide r Reason for Visit * Reason Onset Date Comments Durable Medical Equipment 09/30/2024 Encounter Details Date Type Department Care Team (Late st Contact Info) Description 09/30/2024 Telephone [facility] MED[facility]INE [address] [place] [address] Jae Keen MA Durable Medical Equipment Social History Tobacco Use [...] encounter Miscellaneous Notes * Telephone Encounter - Jae Keen MA - 09/30/2024 9:56 AM EST DME-Generated prescription for large commode on 09/30/2024 , waiting for provider to sign. Signed , scanned and fax on 10/02/2024 L&C. documented in this encounter Plan of Treatment Upcoming Encounters Date Type Department Care Team (Late st Contact Info) Description 11/25/2024 9:00 AM EDT Office Visit [facility] [address] [place] [address] Bárbara Rader MD 230 [place] [address] documented as of this encounter Goals Goal [...] documented as of this encounter Care Teams Transformer Coil Winder Relationship Specialty Start Date End Date Bárbara Rader MD [address] [place] [address] PCP - General Internal Medicine 07/16/24 Luke Gayle PharmD Pharmacist Internal Medicine 09/04/22 [facility] 07/10/24 documented as of this encounter
--- OUTSIDE RECORDS SUMMARY | 2024-10-27 10:28 | XMS_ITS | Encounter Summary ---
Author Organization [employer] Address [address] 7[address] [place] [address] Care Team Providers Care Implementation Coordinator Name Role Phone Luke Gayle PharmD Unavailable Unavail able Bárbara Rader MD Primary Care Provide r Reason for Visit * Reason Onset Date Comments Nurse Triage 10/03/2024 Encounter Details Date Type Department Care Team ([facility] st Contact Info) Description 10/03/2024 Telephone [facility] MEDICINE [address] [place], [place] [phone] Bárbara Rader MD [address] [place], [place] [phone] Nurse Triage Social History Tobacco Use Types [...] encounter Miscellaneous Notes * Telephone Encounter - Ana De Leon RN - 10/07/2024 10:47 AM EST TC placed to patient [phone] the wireless caller you are calling is not available . RN unableto leave . TC placed to [phone] via [employer] interpreters ([employer] #[id number]) in regards to instED visit. Per instED visit : Acute exacerbation of chronic obstructive pulmonary disease - Patient denies shortness of breath, cough, or upper respiratory infection symptoms. The scrap baller reported rhonchi on lung examination. On her medication list, Albuterol inhaler and nebulizer are listed, but the patient denies having or using either. Flu and Covid negative -Given her history of COPD with chronic oxygen requirement, Duoneb x1 was administered.A prescription for an Albuterol MDI with spacer was sent to her pharmacy. -A prescription for Azithromycin was also sent to her pharmacy, with the first dose administered by the scrap baller. - Due to the lack of wheezing, her stable oxygen saturation on chronic oxygen, and her history of diabetes requiring insulin, the decision was made not to start Prednisone to avoid hyperglycemia. Patient reports she has p/u abx from the pharmacy however did not p/u albuterol inhaler. Patient was not aware inhaler was sent to the pharmacy. R advised patient to return to [facility] pharmacy to obtain inhaler. Patient confirms she is taking abx as rx'd. Patient advised to continue taking abx as rx'd and if s/s do not resolve upon completion to call [facility] for a d/u appointment. Patient verbalized understanding. Patient to f/u PRN. * Telephone Encounter - Larua Cook RN - 10/03/2024 2:54 PM EST Sent to team for instED status check PRN. * Telephone Encounter - Laura Cook RN - 10/03/2024 2:35 PM EST Call returned to [facility] to triage [...] Pt tentatively agrees to instED referral ;for evaltoday. Confirmed demographics and allergies. Protocol Used: Eye Injury (Adult) Protocol-Based Disposition: See in Office or Video Visit within 3 Days Positive Triage Question: * Injury and pain has not improved after 3 days * All higher-acuity triage questions were negative Care Advice Discussed: * Reasons To Call Back - Pain becomes severe - Changes in vision - You become worse * Telephone Encounter - Paulette Lee - 10/03/2024 2:19 PM EST Symptom: Face Swelling (hematoma, right eye) due a fall 2 days ago. Outcome: Schedule a same-day appointment or talk to a nurse or provider today Reason: Caller denied all higher acuity questions The caller accepted this outcome. [phone] [place] documented in this encounter Plan of Treatment Upcoming Encounters Date Type Department Care Team (Late st Contact Info) Description 11/25/2024 9:00 AM EDT Office Visit [facility] MED[facility]INE [address] [place], [place] [phone] Bárbara Rader MD [address] [place], [place] [phone] documented as of this encounter Goals Goal [...] documented as of this encounter Care Teams Implementation Coordinator Relationship Specialty Start Date End Date Bárbara Rader MD [address] [place] [address] PCP - General Internal Medicine 07/16/24 Luke Gayle, PharmD Pharmacist Internal Medicine 09/04/22 [facility] 07/10/24 documented as of this encounter
--- OUTSIDE RECORDS SUMMARY | 2024-10-27 10:28 | XMS_ITS | Encounter Summary ---
Author Organization [employer] Address [address] [place] [address] Care Team Providers Care Coal Gasification Technician Name Role Phone Luke Gayle PharmD Unavailable Unavail able Bárbara Rader MD Primary Care Provide r Reason for Visit * Reason Onset Date Comments Nurse Triage 10/16/2024 Encounter Details Date Type Department Care Team ([facility] st Contact Info) Description 10/16/2024 Telephone [facility]INE 230 [place], [place] [phone] Bárbara Rader MD 230 [place], [place] [phone] Nurse Triage Social History Tobacco Use Types [...] Telephone Encounter - Laura Cook RN - 10/16/2024 3:30 PM EST Call returned to [facility] [...] instED cesar medellin. Confirmed Demographics and allergies. Protocol Used: Weakness (Generalized) and Fatigue (Adult) Protocol-Based Disposition: See in Office or Video Visit Today Positive Triage Question: * Taking a medicine that could cause weakness (e.g., blood pressure medications, diuretics) * All higher-acuity triage questions were negative * Telephone Encounter - Bishnu Pressley - 10/16/2024 3:13 PM EST Symptoms: Lethargic (Tired), Weakness Outcome: Transfer to a nurse or provider NOW! Reason: Hard to wake up The caller accepted this outcome. Contact pt at [phone] ([place] Islander) documented in this encounter Plan of Treatment Upcoming Encounters Date Type Department Care Team (Late st Contact Info) Description 11/25/2024 9:00 AM EDT Office Visit [facility] [address] [place] [address] Bárbara Rader MD [address] [place] [address] documented as of this encounter Goals Goal [...] documented as of this encounter Care Teams Coal Gasification Technician Relationship Specialty Start Date End Date Bárbara Rader MD [address] [place] [id number] PCP - General Internal Medicine 07/16/24 Luke Gayle, PharmD Pharmacist Internal Medicine 09/04/22 [facility] 07/10/24 documented as of this encounter
--- OUTSIDE RECORDS SUMMARY | 2024-10-27 10:28 | XMS_ITS | Encounter Summary ---
Author Organization [employer] Address [address] 7t [place] [address] Care Team Providers Care Rockboard Lather Name Role Phone Luke Gayle PharmD Unavailable Unavail able Bárbara Rader MD Primary Care Provide r Reason for Visit * Reason Comments Med Refill Encounter Details Date Type Department Care Team (Late st Contact Info) Description 10/10/2024 Refill [facility] 230 [place] [address] Carmine Patel MD 505 [place] [address] Type 2 diabetes mellitus with other circulatory complications (CMS/HCC) Social History Tobacco Use Types Packs/Day Years [...] Description 11/25/2024 9:00 AM EDT Office Visit [facility] [address] [place] [address] Bárbara Rader MD 230 [place] [address] documented as of this encounter Goals Goal Patient Goal Type Associated Problems Recent Progress Patient-Stated? Author Blood Pressure < 140/90 Blood Pressure 142/70( 024 1:19 PM EST) No Luke Gayle, PharmD documented as of this encounter Visit Diagnoses Diagnosis Type 2 diabetes mellitus with other circulatory complications (CMS/HCC) documented in this encounter Additional Health Concerns Assessment Noted Time PHQ-9 Depression Total Score: 0 07/16/20 10:22 AM EDT documented as of this encounter Care Teams Rockboard Lather Relationship Specialty Start Date End Date Bárbara Rader MD [address] [place] [address] PCP - General Internal Medicine 07/16/24 Luke aGyle, PharmD Pharmacist Internal Medicine 09/04/22 [facility] 07/10/24 documented as of this encounter
--- OUTSIDE RECORDS SUMMARY | 2024-10-27 10:28 | XMS_ITS | Encounter Summary ---
Author Organization [employer] Address [address] 7[address] [place] [address] Care Team Providers Care Cotton Stomper Name Role Phone Luke Gayle PharmD Unavailable Unavail able Bárbara Rader MD Primary Care Provide r Reason for Visit * Reason Onset Date Comments Durable Medical Equipment 10/03/2024 Encounter Details Date Type Department Care Team ([facility] st Contact Info) Description 10/03/2024 Telephone [facility] MEDICINE [address] [place], [place] [phone] Bárbara Rader MD 230 [place], [place] [phone] Durable Medical Equipment Social History Tobacco Use [...] Telephone Encounter - Paulette Lee - 10/03/2024 2:23 PM EST Tc from pt son requesting standing yamileth. [phone] australian documented in this encounter Plan of Treatment Upcoming Encounters Date Type Department Care Team (Late st Contact Info) Description 11/25/2024 9:00 AM EDT Office Visit [facility] MED[facility]INE [address] [place] [address] Bárbara Rader MD 230 [place] [address] documented as of this encounter Goals Goal [...] documented as of this encounter Care Teams Cotton Stomper Relationship Specialty Start Date End Date Bárbara Rader MD [address] [place] [address] PCP - General Internal Medicine 07/16/24 Luek Gayle PharmD Pharmacist Internal Medicine 09/04/22 [facility] 07/10/24 documented as of this encounter
== END 2024-10-27 11:32 | disposition home or self-care (01) ==
PROVIDERS: PCP Internal Medicine; Visit Provider Urology
DX: N39.0 Urinary tract infection, site not specified (principal); R32 Unspecified urinary incontinence; R35.0 Frequency of micturition
CPT/HCPCS: 52000

== ENCOUNTER 2024-11-12 10:45 | Inpatient (IN) | payer OTHER, SELFPAY ==
[2024-11-12] VITALS (19 sets, daily range): BP systolic 87–134; BP diastolic 38–78; PULSE 63–93; RESP 14–30; TEMP 36.9–38.1; O2SAT 89–100; BMI 41.8
--- NOTE | ~2024-11-12 | XR_ITS ---
EXAMINATION: XR CHEST 1 VIEW HISTORY: AMS COMPARISON: Comparison is made with the prior examination dated 08/06/2024. FINDINGS: A single AP portable view of the chest performed at 12:06 PM is submitted. There are low lung volumes. The lungs are grossly clear. There is no pleural effusion, pneumothorax, or pulmonary vascular congestion. The heart is enlarged. There is degenerative disc disease of the spine. XR/XR chest 1V IMPRESSION: The megaly. Low lung volumes. The lungs are grossly clear. Electronically signed by: Jeovany Mckeon MD 11/12/2024 12:23 PM EST
--- NOTE | ~2024-11-12 | CT_ITS ---
EXAMINATION: CT HEAD WITHOUT CONTRAST CLINICAL INFORMATION: Altered mental status. COMPARISON: None available. TECHNIQUE: Contiguous axial imaging was performed from the skull base to vertex without intravenous administration of contrast. This CT examination was performed using dose optimization techniques as appropriate, variously including the following: *Automated exposure control *Adjustment of mA and/or kV according to patient size (this includes techniques or standardized protocols for targeted exams where dose is matched to indication/reason for exam; i.e. extremities or head) *Use of iterative reconstruction technique FINDINGS: Exam limited by motion artifact near the superior aspect. There is no evidence of intracranial hemorrhage or extra-axial fluid collection. There is no mass effect, or edema. No CT evidence of acute territorial infarct. Ventricles, sulci, and cisterns are normal in size and configuration for patient age. No hydrocephalus. No midline shift. Negative hyperdense MCA sign. Negative insular ribbon sign. Patchy periventricular and deep white matter hypoattenuation is consistent with mild small vessel ischemic changes. 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 Normal pituitary. Mild atheromatous calcification of the bilateral carotid siphons and V4 segments vertebral arteries bilaterally. Mild proptosis of uncertain significance. Globes and orbital contents image normally. No extracranial soft tissue abnormalities. The paranasal sinuses, mastoid air cells, and tympanic cavities are normally aerated. No suspicious bony abnormalities. There are no acute fractures evident. CT/CT head/brain wo IV con IMPRESSION: No acute intracranial abnormalities. Electronically signed by: Bartolome Vidales MD 11/12/2024 01:59 PM [facility]
--- NOTE | 2024-11-12 11:14 | ECG_ITS ---
Test Reason : AMS Blood Pressure : */* mmHG Vent. Rate : 77 BPM Atrial Rate : 77 BPM P-R Int : 174 ms QRS Dur : 86 ms QT Int : 390 ms P-R-T Axes : 28 24 36 degrees QTcB Int : 441 ms Normal sinus rhythm Normal ECG When compared with ECG of 06-Jul-2024 10:19, No significant change was found Referred By: Generic ED Physician Electronically Signed By: Jake Veliz
[2024-11-12 11:27] LABS: Appearance Urine Cloudy; Color Urine Dark Yellow; Glucose Urine UA Negative (Negative); Leukocyte Esterase Urine Negative (Negative); Nitrite Urine Negative (Negative); PH 5.5 (5.0-9.0); UMIC TRIGGER UACC YES; Urine Blood Negative (Negative); Urine Ketones Negative (Negative); Urine Protein 100 (2+) mg/dL (Neg-Trace)
--- NOTE | 2024-11-12 11:33 | ED.GENADULT ---
HPI - General Adult General Chief complaint: Weakness Stated complaint: Weakness Time Seen by Provider: 11/12/24 11:32 Source: patient, family, RN notes reviewed and bilingual interpreter ( bilingual interpreter used) Limitations: altered mental status History of Present Illness ED Provider: Tammie Macias PA-C HPI narrative: This is a 79-year-old [place]ian-speakingfemale, with a past medical history of pulmonary hypertension, chronic hypercapnic respiratory failure/obesity hypoventilation syndrome on 2 L O2 at baseline, heart failure preserved ejection fraction, insulin-dependent type 2 diabetes, NICO on CPAP, who presents emergency department from home concerns for weakness for 1 day. HPI information was collected by as patient is very lethargic, obtunded in bed. reports that patient has been reporting that patient was complaining of generalized weakness yesterday, and was seen by mission systems engineer, who gave her fluids at home, reports that this morning he awoke and she was in bed, and patient was found very sleepy, not responding to him, and he called 911. reports that she has been reports that this is a similar presentation to when she had a urinary tract infection and her carbon dioxide was elevated . Has been admits that over the last several days he has not had her wear her CPAP machine at bedtime. denies any change in health status over the last several weeks. No recent illness. No recent fevers, chills, cough, reports that patient has not been complaining of any medical ailments. MD complaint: Generalized weakness, lethargy Onset (ago): day(s) Related Data Home Medications ?Medication ?Instructions ?Recorded ?Confirmed lancets 33 gauge (TRUEplus Lancets) #100 ea 09/20/21 09/23/24 sitagliptin phos 50 mg-metformin 1 tab PO DAILY 02/20/22 09/23/24 ER 1,000 mg tablet,extend rel 24h mp (Janumet XR) furosemide 40 mg tablet 40 mg PO DAILY 05/11/23 09/23/24 albuterol sulfate 90 mcg/actuation 2 puff inhalation Q6H PRN Wheezing 11/02/23 09/23/24 aerosol inhaler ergocalciferol (vitamin D2) 1,250 1,250 mcg PO MO 11/02/23 09/23/24 mcg (50,000 unit) capsule famotidine 20 mg tablet 20 mg PO BID 11/02/23 09/23/24 pravastatin 40 mg tablet 40 mg PO BEDTIME 11/02/23 09/23/24 albuterol sulfate 2.5 mg/3 mL 2.5 mg inhalation Q6H PRN 05/04/24 09/23/24 (0.083 %) solution for nebulization Shortness Of Breath Or Wheezing pantoprazole 20 mg tablet,delayed 20 mg PO DAILY@0630 05/04/24 09/23/24 release insulin lispro 100 unit/mL 5 unit subcut DAILY 08/06/24 09/23/24 subcutaneous pen (Humalog KwikPen (U-100) Insulin) ketotifen fumarate 0.025 % (0.035 1 drp ophthalmic (eye) Q12H PRN 08/06/24 09/23/24 %) eye drops Eye Itching Previous Rx's ?Medication ?Instructions ?Recorded carvedilol 12.5 mg tablet 12.5 mg PO BID #60 tabs 11/07/23 insulin glargine 100 unit/mL 20 unit (0.2 mL) subcut BEDTIME 11/15/23 subcutaneous solution (Lantus #10 mL U-100 Insulin) losartan 50 mg tablet 50 mg PO DAILY #30 tabs 11/15/23 vibegron 75 mg tablet (Gemtesa) 75 mg PO DAILY for urine leakage 09/11/24 #30 tabs Allergies Allergy/AdvReac Type Severity Reaction Status Date / Time No Known Allergies Allergy Verified 11/12/24 11:13 [No Known Allergies*] Review of Systems Review of Systems: Yes all other systems are reviewed and are negative Constitutional: Constitutional: Reports as per 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 indication of end stage renal disease in patient 6 to 64 years of age Lymphadenopathy Abdominal pain Bursitis of right hip Osteoarthritis of right hip Restrictive ventilatory defect Dyspnea on exertion Varicose veins of right lower extremity with inflammation Pneumonitis Pulmonary hypertension Hypertensive cardiovascular disease Acute hypoxic on chronic hypercapnic respiratory failure Acute on chronic respiratory failure with hypoxemia Obesity hypoventilation syndrome GERD (gastroesophageal reflux disease) Hypertension Diabetes mellitus COPD (chronic obstructive pulmonary disease) Surgical History S/P laparoscopic cholecystectomy (07/14/21) Family History Family History Mother Diabetes Social History Social History Household Members: Unknown / Unable to assess Household Members Other:: cousin Housing: Unknown / Unable to assess Do you presently have visiting nurse or other home services: No Unable to assess alcohol history related to: Unknown Alcohol intake: never Patient Tobacco Use Status: Former Tobacco user Tobacco use type: Cigarette Years Smoked: 20 Use of substances other than those prescribed or required for medical reasons: Unknown Advance Directives: Yes Advance Directives on File: Yes Advance Directives Date on File: 02/22/22 Do you have a plan to hurt others: No Plan service: No Current occupational status: unemployed and disabled Physical Exam ED Vital Signs: Vital Signs - 24 hr 11/12/24 11:10 11/12/24 12:23 11/12/24 12:58 Temperature 100.6 F H Pulse Rate 80 77 Respiratory Rate 29 H 22 H 24 H Blood Pressure 101/51 L 100/49 L Pulse Oximetry 92 97 Oxygen Delivery Method Nasal Cannula Nasal Cannula Oxygen Flow Rate 4 11/12/24 13:03 11/12/24 13:54 11/12/24 14:00 Temperature 98.4 F Pulse Rate 69 64 67 Respiratory Rate 24 H 24 H 24 H Blood Pressure 92/40 L 91/49 L Pulse Oximetry 94 91 L Oxygen Delivery Method BiPAP BiPAP Oxygen Flow Rate 11/12/24 14:00 11/12/24 15:05 11/12/24 15:05 Temperature Pulse Rate 79 77 Respiratory Rate 22 H 24 H 24 H Blood Pressure 110/57 L Pulse Oximetry 98 Oxygen Delivery Method BiPAP Oxygen Flow Rate 11/12/24 16:46 11/12/24 16:55 11/12/24 17:10 Temperature Pulse Rate 65 65 Respiratory Rate 24 H 30 H 30 H Blood Pressure 108/47 L Pulse Oximetry 95 Oxygen Delivery Method BiPAP Oxygen Flow Rate 11/12/24 17:40 11/12/24 19:05 11/12/24 19:20 Temperature 99.1 F 98.6 F Pulse Rate 78 79 Respiratory Rate 14 20 16 Blood Pressure 114/38 L 118/49 L Pulse Oximetry 97 93 Oxygen Delivery Method Room Air BiPAP Oxygen Flow Rate BMI result Body Mass Index 41.8 Const General: patient obtunded Nutritional Appearance: obese Orientation/consciousness: oriented to person and patient obtunded Limitations: altered mental status [facility] Head: Yes normal to inspection, Yes normocephalic and Yes atraumatic Ears: hearing grossly normal bilaterally General nose exam: Normal external nose present Face and sinus: Yes normal facial exam Mouth: Normal oral and palatal mucosa present, oropharynx normal and moist mucous membranes Throat: Yes posterior oropharynx normal Eyes General: appearance normal, both eyes and all related structures Eyelids: Yes eyelids normal Conjunctivae: conjunctivae normal Sclerae: sclerae normal Pupils: Equal, round and reactive pupils present EOM: EOMs intact bilaterally Neck Neck: Yes normal visual inspection, Yes full ROM and Yes no lymphadenopathy Lymphatic: no lymphadenopathy noted Chest Chest palpation & inspection: normal inspection of the chest Resp Other: Diminished throughout, no wheezes or rhonchi appreciated. Effort & Inspection: tachypneic Cardio Rate: regular rate Rhythm: regular rhythm Heart sounds: S1 normal heart sound present and S2 normal heart sound present GI Inspection: Yes normal to inspection Skin General skin exam: no rashes or lesions noted Trauma: no lacerations or abrasions Wounds: no wounds Neuro General: oriented to person, moves all extremities and patient obtunded Cranial nerves: Yes Equal, round and reactive pupils present Extrem Other: No pitting edema noted bilaterally. General: Yes normal to inspection Right upper extremity: normal to inspection Left upper extremity: normal to inspection Right lower extremity: normal to inspection Left lower extremity: normal to inspection Course Reevaluation(s) Reevaluation #1: Patient currently receiving IV fluids, as well as IV antibiotics. I had patient assessed by my attending physician, Dr. Mane given patient is obtunded, she does intermittently respond to verbal and physical stimuli, she was moving all extremities. Will obtain CT head to rule out any intracranial hemorrhage. Patient's eyes are pinpoint, does not report any drug use. Time: 12:30 Reevaluation #2: ABG returns, patient acidotic at 7.18, CO2 105, piece O2, 46, HC03, 40. patient with respiratory acidosis, patient needs to be placed on BiPAP. Discussed case with Dr. Mane. Respiratory therapy paged. Call placed out to nursing supervisor locomotive to see if there are any available ICU beds. Time: 12:46 Reevaluation #3: I was alerted by the nurse that patient blood pressure dropped down to 91/49, with a map of 56. she is still on BiPAP, awaiting repeat VBG. I notified my supervising physician, Dr. Mane. patient was reassessed, recommending Wells catheter, and administration of 1 L of lactated Ringer's. We will continue to closely monitor still awaiting VBG. Time: 14:29 Additional Reevaluation(s): VBG returns, overall has improved slightly, pH increased from 7.18-7.22, pCO2 decreased from 105 to 85, PO2 46 > 64, HCO3 40 > 35. we will administer 1 ampule of bicarb, 125mg of Solu-Medrol. given complexity of this patient's case, my attending physician, Dr. Mane will assume care of patient. 1538 - Discussed overall workup with both sons at bedside. Son, Ronny Watts and Andres Calos (Gambian speaking) [phone]. discussed at length that patient may require intubation, they report that they do not want this to occur at this time but may change their mind. Patient's blood pressure has improved who 122/56. patient appears more alert, smiling underneath BiPAP mask. Will continue to closely monitor. Patient underneath Dr. Mane's care. 1642 - Dr. Mane spoke to toe laster, recommending acetazolamide 500 mg IV push. We will continue to closely monitor. Transfer care to Dr. Mane. Medications Administered Discontinued Medications Generic Name Dose Route Start Last Admin Trade Name Freq PRN Reason Stop Dose Admin Acetazolamide 500 mg 11/12/24 16:42 11/12/24 17:49 Acetazolamide Sodium 500 Mg Vial IVPUSH 11/12/24 16:43 500 mg ONCE ONE Administration Albuterol Sulfate 5 mg/ 7.5 mg 11/12/24 19:32 11/12/24 19:34 Albuterol Sulfate 2.5 mg INHALE 11/12/24 19:33 7.5 mg ONCE ONE Administration Ceftriaxone Sodium 1 gm 11/12/24 11:50 11/12/24 12:08 Ceftriaxone Sodium 1 Gm Vial IVPUSH 11/12/24 11:51 1 gm ONCE ONE Administration Albuterol Sulfate 5 mg/ 0 mg 11/12/24 13:03 11/12/24 13:08 Albuterol/Ipratropium 3 ml INHALE 11/12/24 13:04 1 each ONCE ONE Administration Albuterol Sulfate 5 mg/ 0 mg 11/12/24 15:03 11/12/24 15:04 Albuterol/Ipratropium 3 ml INHALE 11/12/24 15:04 1 each ONCE ONE Administration Albuterol Sulfate 7.5 mg/ 0 mg 11/12/24 17:06 11/12/24 17:10 Albuterol/Ipratropium 3 ml INHALE 11/12/24 17:07 1 each ONCE ONE Administration Acetaminophen 1,000 mg in 100 mls @ 400 mls/hr 11/12/24 11:47 11/12/24 12:56 Ofirmev IV 11/12/24 12:01 Infused ONCE ONE Infusion Doxycycline Hyclate 100 mg/ 250 mls @ 166.67 mls/hr 11/12/24 11:50 11/12/24 13:54 Sodium Chloride IV 11/12/24 13:19 Infused ONCE ONE Infusion Sodium Chloride 1,917 mls @ 1,917 mls/hr 11/12/24 11:52 11/12/24 13:54 Ns IV 11/12/24 12:51 Infused .Q1H STA Infusion Lactated Ringer's 1,000 mls @ 999 mls/hr 11/12/24 14:43 11/12/24 16:22 Lr IV 11/12/24 15:43 Infused .Q1H1M ONE Infusion Methylprednisolone Sodium Succinate 125 mg 11/12/24 14:52 11/12/24 14:58 Methylprednisolone Sod Succ 125 Mg/2 Ml Vial IVPUSH 11/12/24 14:53 125 mg ONCE ONE Administration Sodium Bicarbonate 50 meq 11/12/24 14:52 11/12/24 15:01 Sodium Bicarbonate 8.4% 50 Meq/50 Ml Syringe IVPUSH 11/12/24 14:53 50 meq ONCE ONE Administration Medical Decision Making Medical Decision Making MDM Narrative: This is a 79-year-old female, with a past medical history of CHF, NICO, COPD, diabetes, hypertension who presents emergency department from home concerns for weakness for 1 day. during assessment, patient obtunded, she does open eyes to verbal and physical stimuli. Blood pressure 101/51, respirations 29, temperature a 100.6?. She is on 92% on 3 L nasal cannula. Given elevated temperature, altered mental status, hypotension, patient meeting SIRS criteria, unsure of source of infection. On review of past medical history, patient was admitted on 07/06/2024 with UTI and acute on chronic hypercapnic respiratory failure requiring BiPAP support. She was ultimately admitted to the ICU for stabilization and transferred to telemetry. [facility] hospital course, she was treated with ceftriaxone for underlying UTI and diuresis for CHF exacerbation with significant improvement, She was titrated off of BiPAP overnight and transition to telemetry the following day. Of further note, She was seen in the office for cystoscopy by Dr. Horton on 10/27/2024. She was started on gemtesa and she states med is helping. Cystoscopy findings: no suspicious bladder lesions. Catheterized urine sent for surveillance urine culture which was negative at that time. Patient has had similar presentations in the past, not requiring intubation. Sepsis alert was called at 1151. patient administered with IV fluids, ceftriaxone and doxycycline to treat for possible urosepsis Administered IV Tylenol due to fever. Will obtain chest x-ray, viral swabs, CBC, CMP, ammonia level, and viral swabs. We will closely monitor. 4:45pm case discussed toe laster Dr. Null advised acetazolamide 500 mg IV 555pmPatient with significant Respiratory acidosis with history of sleep apnea acidosis improved after BiPAP patient is more alert and oriented repeat gases showed remarkable improvement of pH of 7.35 pCO2 63 O2 of 79 bicarb of 36 patient asking for food BiPAP setting was 20/5 rate of 24 on 32% minute ventilation of 9 L Patient has had food in the ER feeling much better case discussed with Dr. Null admit and place on BiPAP overnight Differential Diagnosis Differential Diagnoses: The differential diagnosis associated with the presentation includes UTI, pneumonia, metabolic encephalopathy Admission/Observation Consideration of admission/observation: Escalation of care including admission/observation considered Lab Data [facility] Lab Attestation statement: I reviewed the patient's lab results. patient with leukopenia at 4.2, microcytic anemia with an H&H of 10.2/34.1, urine with no significant abnormalities. 11/12/24 11:35 11/12/24 17:34 Labs: Lab Results 11/12/24 11/12/24 11/12/24 Range/Units 11:18 11:35 11:44 WBC 4.2 L (4.8-10.8) X10*3/uL RBC 3.40 L (4.20-5.50) X10*6/uL Hgb 10.2 L (12.0-16.0) g/dl Hct 34.1 L (37.0-47.0) % MCV 100.3 H (80.0-98.0) fL MCH 30.0 (27.0-33.0) pg MCHC 29.9 L (31.0-35.0) g/dl RDW 12.2 (11.0-16.0) % Plt Count 137 L (160-400) X10*3/uL MPV 10.3 (9.4-12.3) fL Immature Gran % (Auto) 0.5 H (0.0-0.4) % Neut % (Auto) 67.5 (45-73) % Lymph % (Auto) 20.7 (20-40) % Coleman % (Auto) 10.1 (2-11) % Eos % (Auto) 0.7 (0-4) % Baso % (Auto) 0.5 (0-2) % Lymph # (Auto) 0.9 L (1.2-4.9) X10*3/uL Coleman # (Auto) 0.4 (0.1-1.2) X10*3/uL Eos # (Auto) 0.0 (0.0-0.4) X10*3/uL Baso # (Auto) 0.0 (0.0-0.2) X10*3/uL Abs Immat Gran (auto) 0.02 (0.00-0.03) X10*3/uL Absolute Neuts (auto) 2.8 (2.0-8.3) x10*3/uL Absolute Nucleated RBC 0.000 (0.0-0.012) X10*3/uL Nucleated RBC % (auto) 0.0 (0.0-0.2) /100WBC PT 12.4 (10.9-12.4) SEC INR 1.1 (0.9-1.1) O2 Saturation % ABG pH at Pt Temp (7.35-7.45) ABG pCO2 at Pt Temp (32-45) mmHg ABG pO2 at Pt Temp (83-108) mmHg ABG HCO3 (22-26) mmol/L ABG Base Excess (Actual) mmol/L VBG pH (7.32-7.43) VBG pCO2 mmHg VBG pO2 mmHg VBG HCO3 (22-26) mmol/L VBG O2 Saturation % VBG Base Excess mmol/L Sodium 139 (135-145) mmol/L Potassium 4.7 D (3.3-5.1) mmol/L Chloride 99 (96-108) mmol/L Carbon Dioxide 35 H (22-29) mmol/L Anion Gap 10 L (12-20) BUN 18 H (9-16) mg/dL Creatinine 0.78 (0.5-1.4) mg/dL Estim Creat Clear Calc 82.8 Estimated GFR > 60 POC Glucose 109 (60-115) mg/dL Random Glucose 112 (60-115) mg/dL Lactic Acid 0.6 (0.5-2.0) mmol/L Calcium 8.3 L (8.4-10.2) mg/dL Magnesium 1.9 (1.6-2.6) mg/dL Total Bilirubin 0.1 (0.0-1.0) mg/dL AST 22 (5-31) U/L ALT 19 (0-31) U/L Alkaline Phosphatase 47 (39-117) U/L Ammonia (13-55) umol/L Troponin I High Sens 9.1 (<3.5-17.0) ng/L B-Natriuretic Peptide 237 H (<100) pg/mL Total Protein 7.3 (6.5-8.0) g/dL Albumin 3.6 (3.5-5.0) g/dL Urine Color Dark Yellow Urine Appearance Cloudy Urine pH 5.5 (5.0-9.0) Ur Specific [place] 1.020 (1.005-1.025) Urine Protein 100 (2+) H (Neg-Trace) mg/dL Urine Glucose (UA) Negative (Negative) mg/dL Urine Ketones Negative (Negative) mg/dL Urine Blood Negative (Negative) Urine Nitrite Negative (Negative) Ur Leukocyte Esterase Negative (Negative) Urine RBC 0-2 (0-2) /HPF Urine WBC 0-5 (0-5) /HPF Ur Squamous Epith Cells 6-10 (0-2) /HPF Urine Bacteria None Seen (None Seen) Hyaline Casts >20 (0-2) /LPF Granular Casts Present Salicylates (15-30) mg/dL Urine Opiates Screen Not Detected (Not Detect) Ur Buprenorphine Scrn Not Detected (Not Detect) ng/mL Ur Oxycodone Screen Not Detected (Not Detect) ng/mL Urine Methadone Screen Not Detected (Not Detect) ng/mL Urine Fentanyl Screen Not Detected (Not Detect) Acetaminophen (<30) mcg/mL Ur Barbiturates Screen Not Detected (Not Detect) Ur Phencyclidine Scrn Not Detected (Not Detect) Ur Amphetamines Screen Not Detected (Not Detect) U Benzodiazepines Scrn Not Detected (Not Detect) Urine Cocaine Screen Not Detected (Not Detect) U Marijuana (THC) Screen Not Detected (Not Detect) Ethyl Alcohol < 10 mg/dL Influenza Type A (PCR) NEGATIVE (Negative) Influenza Type B (PCR) NEGATIVE (Negative) RSV RNA Qual (PCR) NEGATIVE (Negative) SARS-CoV-2 RNA (RT-PCR) NEGATIVE (Negative) 11/12/24 11/12/24 11/12/24 Range/Units 11:49 12:30 13:49 WBC (4.8-10.8) X10*3/uL RBC (4.20-5.50) X10*6/uL Hgb (12.0-16.0) g/dl Hct (37.0-47.0) % MCV (80.0-98.0) fL MCH (27.0-33.0) pg MCHC (31.0-35.0) g/dl RDW (11.0-16.0) % Plt Count (160-400) X10*3/uL MPV (9.4-12.3) fL Immature Gran % (Auto) (0.0-0.4) % Neut % (Auto) (45-73) % Lymph % (Auto) (20-40) % Coleman % (Auto) (2-11) % Eos % (Auto) (0-4) % Baso % (Auto) (0-2) % Lymph # (Auto) (1.2-4.9) X10*3/uL Coleman # (Auto) (0.1-1.2) X10*3/uL Eos # (Auto) (0.0-0.4) X10*3/uL Baso # (Auto) (0.0-0.2) X10*3/uL Abs Immat Gran (auto) (0.00-0.03) X10*3/uL Absolute Neuts (auto) (2.0-8.3) x10*3/uL Absolute Nucleated RBC (0.0-0.012) X10*3/uL Nucleated RBC % (auto) (0.0-0.2) /100WBC PT (10.9-12.4) SEC INR (0.9-1.1) O2 Saturation % ABG pH at Pt Temp (7.35-7.45) ABG pCO2 at Pt Temp (32-45) mmHg ABG pO2 at Pt Temp (83-108) mmHg ABG HCO3 (22-26) mmol/L ABG Base Excess (Actual) mmol/L VBG pH 7.18 L* (7.32-7.43) VBG pCO2 105 mmHg VBG pO2 46 mmHg VBG HCO3 40 H (22-26) mmol/L VBG O2 Saturation 71.0 % VBG Base Excess 8.6 mmol/L Sodium (135-145) mmol/L Potassium (3.3-5.1) mmol/L Chloride (96-108) mmol/L Carbon Dioxide (22-29) mmol/L Anion Gap (12-20) BUN (9-16) mg/dL Creatinine (0.5-1.4) mg/dL Estim Creat Clear Calc Estimated GFR POC Glucose (60-115) mg/dL Random Glucose (60-115) mg/dL Lactic Acid (0.5-2.0) mmol/L Calcium (8.4-10.2) mg/dL Magnesium (1.6-2.6) mg/dL Total Bilirubin (0.0-1.0) mg/dL AST (5-31) U/L ALT (0-31) U/L Alkaline Phosphatase (39-117) U/L Ammonia 44 (13-55) umol/L Troponin I High Sens (<3.5-17.0) ng/L B-Natriuretic Peptide (<100) pg/mL Total Protein (6.5-8.0) g/dL Albumin (3.5-5.0) g/dL Urine Color Urine Appearance Urine pH (5.0-9.0) Ur Specific [place] (1.005-1.025) Urine Protein (Neg-Trace) mg/dL Urine Glucose (UA) (Negative) mg/dL Urine Ketones (Negative) mg/dL Urine Blood (Negative) Urine Nitrite (Negative) Ur Leukocyte Esterase (Negative) Urine RBC (0-2) /HPF Urine WBC (0-5) /HPF Ur Squamous Epith Cells (0-2) /HPF Urine Bacteria (None Seen) Hyaline Casts (0-2) /LPF Granular Casts Salicylates < 5.0 L (15-30) mg/dL Urine Opiates Screen (Not Detect) Ur Buprenorphine Scrn (Not Detect) ng/mL Ur Oxycodone Screen (Not Detect) ng/mL Urine Methadone Screen (Not Detect) ng/mL Urine Fentanyl Screen (Not Detect) Acetaminophen 10 (<30) mcg/mL Ur Barbiturates Screen (Not Detect) Ur Phencyclidine Scrn (Not Detect) Ur Amphetamines Screen (Not Detect) U Benzodiazepines Scrn (Not Detect) Urine Cocaine Screen (Not Detect) U Marijuana (THC) Screen (Not Detect) Ethyl Alcohol mg/dL Influenza Type A (PCR) (Negative) Influenza Type B (PCR) (Negative) RSV RNA Qual (PCR) (Negative) SARS-CoV-2 RNA (RT-PCR) (Negative) 11/12/24 11/12/24 11/12/24 Range/Units 14:36 16:34 17:34 WBC (4.8-10.8) X10*3/uL RBC (4.20-5.50) X10*6/uL Hgb (12.0-16.0) g/dl Hct (37.0-47.0) % MCV (80.0-98.0) fL MCH (27.0-33.0) pg MCHC (31.0-35.0) g/dl RDW (11.0-16.0) % Plt Count (160-400) X10*3/uL MPV (9.4-12.3) fL Immature Gran % (Auto) (0.0-0.4) % Neut % (Auto) (45-73) % Lymph % (Auto) (20-40) % Coleman % (Auto) (2-11) % Eos % (Auto) (0-4) % Baso % (Auto) (0-2) % Lymph # (Auto) (1.2-4.9) X10*3/uL Coleman # (Auto) (0.1-1.2) X10*3/uL Eos # (Auto) (0.0-0.4) X10*3/uL Baso # (Auto) (0.0-0.2) X10*3/uL Abs Immat Gran (auto) (0.00-0.03) X10*3/uL Absolute Neuts (auto) (2.0-8.3) x10*3/uL Absolute Nucleated RBC (0.0-0.012) X10*3/uL Nucleated RBC % (auto) (0.0-0.2) /100WBC PT (10.9-12.4) SEC INR (0.9-1.1) O2 Saturation 96.0 % ABG pH at Pt Temp 7.23 L (7.35-7.45) ABG pCO2 at Pt Temp 93 H* (32-45) mmHg ABG pO2 at Pt Temp 83 (83-108) mmHg ABG HCO3 39 H (22-26) mmol/L ABG Base Excess (Actual) 9.4 mmol/L VBG pH 7.22 L (7.32-7.43) VBG pCO2 85 mmHg VBG pO2 64 mmHg VBG HCO3 35 H (22-26) mmol/L VBG O2 Saturation 91.0 % VBG Base Excess 5.3 mmol/L Sodium 139 (135-145) mmol/L Potassium 4.9 (3.3-5.1) mmol/L Chloride 102 (96-108) mmol/L Carbon Dioxide 32 H (22-29) mmol/L Anion Gap 10 L (12-20) BUN 17 H (9-16) mg/dL Creatinine 0.68 (0.5-1.4) mg/dL Estim Creat Clear Calc 94.9 Estimated GFR > 60 POC Glucose (60-115) mg/dL Random Glucose 113 (60-115) mg/dL Lactic Acid (0.5-2.0) mmol/L Calcium 8.0 L (8.4-10.2) mg/dL Magnesium (1.6-2.6) mg/dL Total Bilirubin (0.0-1.0) mg/dL AST (5-31) U/L ALT (0-31) U/L Alkaline Phosphatase (39-117) U/L Ammonia (13-55) umol/L Troponin I High Sens (<3.5-17.0) ng/L B-Natriuretic Peptide (<100) pg/mL Total Protein (6.5-8.0) g/dL Albumin (3.5-5.0) g/dL Urine Color Urine Appearance Urine pH (5.0-9.0) Ur Specific [place] (1.005-1.025) Urine Protein (Neg-Trace) mg/dL Urine Glucose (UA) (Negative) mg/dL Urine Ketones (Negative) mg/dL Urine Blood (Negative) Urine Nitrite (Negative) Ur Leukocyte Esterase (Negative) Urine RBC (0-2) /HPF Urine WBC (0-5) /HPF Ur Squamous Epith Cells (0-2) /HPF Urine Bacteria (None Seen) Hyaline Casts (0-2) /LPF Granular Casts Salicylates (15-30) mg/dL Urine Opiates Screen (Not Detect) Ur Buprenorphine Scrn (Not Detect) ng/mL Ur Oxycodone Screen (Not Detect) ng/mL Urine Methadone Screen (Not Detect) ng/mL Urine Fentanyl Screen (Not Detect) Acetaminophen (<30) mcg/mL Ur Barbiturates Screen (Not Detect) Ur Phencyclidine Scrn (Not Detect) Ur Amphetamines Screen (Not Detect) U Benzodiazepines Scrn (Not Detect) Urine Cocaine Screen (Not Detect) U Marijuana (THC) Screen (Not Detect) Ethyl Alcohol mg/dL Influenza Type A (PCR) (Negative) Influenza Type B (PCR) (Negative) RSV RNA Qual (PCR) (Negative) SARS-CoV-2 RNA (RT-PCR) (Negative) 11/12/24 Range/Units 17:39 WBC (4.8-10.8) X10*3/uL RBC (4.20-5.50) X10*6/uL Hgb (12.0-16.0) g/dl Hct (37.0-47.0) % MCV (80.0-98.0) fL MCH (27.0-33.0) pg MCHC (31.0-35.0) g/dl RDW (11.0-16.0) % Plt Count (160-400) X10*3/uL MPV (9.4-12.3) fL Immature Gran % (Auto) (0.0-0.4) % Neut % (Auto) (45-73) % Lymph % (Auto) (20-40) % Coleman % (Auto) (2-11) % Eos % (Auto) (0-4) % Baso % (Auto) (0-2) % Lymph # (Auto) (1.2-4.9) X10*3/uL Coleman # (Auto) (0.1-1.2) X10*3/uL Eos # (Auto) (0.0-0.4) X10*3/uL Baso # (Auto) (0.0-0.2) X10*3/uL Abs Immat Gran (auto) (0.00-0.03) X10*3/uL Absolute Neuts (auto) (2.0-8.3) x10*3/uL Absolute Nucleated RBC (0.0-0.012) X10*3/uL Nucleated RBC % (auto) (0.0-0.2) /100WBC PT (10.9-12.4) SEC INR (0.9-1.1) O2 Saturation % ABG pH at Pt Temp (7.35-7.45) ABG pCO2 at Pt Temp (32-45) mmHg ABG pO2 at Pt Temp (83-108) mmHg ABG HCO3 (22-26) mmol/L ABG Base Excess (Actual) mmol/L VBG pH 7.35 (7.32-7.43) VBG pCO2 63 mmHg VBG pO2 79 mmHg VBG HCO3 36 H (22-26) mmol/L VBG O2 Saturation 100.0 % VBG Base Excess 8.7 mmol/L Sodium (135-145) mmol/L Potassium (3.3-5.1) mmol/L Chloride (96-108) mmol/L Carbon Dioxide (22-29) mmol/L Anion Gap (12-20) BUN (9-16) mg/dL Creatinine (0.5-1.4) mg/dL Estim Creat Clear Calc Estimated GFR POC Glucose (60-115) mg/dL Random Glucose (60-115) mg/dL Lactic Acid (0.5-2.0) mmol/L Calcium (8.4-10.2) mg/dL Magnesium (1.6-2.6) mg/dL Total Bilirubin (0.0-1.0) mg/dL AST (5-31) U/L ALT (0-31) U/L Alkaline Phosphatase (39-117) U/L Ammonia (13-55) umol/L Troponin I High Sens (<3.5-17.0) ng/L B-Natriuretic Peptide (<100) pg/mL Total Protein (6.5-8.0) g/dL Albumin (3.5-5.0) g/dL Urine Color Urine Appearance Urine pH (5.0-9.0) Ur Specific [place] (1.005-1.025) Urine Protein (Neg-Trace) mg/dL Urine Glucose (UA) (Negative) mg/dL Urine Ketones (Negative) mg/dL Urine Blood (Negative) Urine Nitrite (Negative) Ur Leukocyte Esterase (Negative) Urine RBC (0-2) /HPF Urine WBC (0-5) /HPF Ur Squamous Epith Cells (0-2) /HPF Urine Bacteria (None Seen) Hyaline Casts (0-2) /LPF Granular Casts Salicylates (15-30) mg/dL Urine Opiates Screen (Not Detect) Ur Buprenorphine Scrn (Not Detect) ng/mL Ur Oxycodone Screen (Not Detect) ng/mL Urine Methadone Screen (Not Detect) ng/mL Urine Fentanyl Screen (Not Detect) Acetaminophen (<30) mcg/mL Ur Barbiturates Screen (Not Detect) Ur Phencyclidine Scrn (Not Detect) Ur Amphetamines Screen (Not Detect) U Benzodiazepines Scrn (Not Detect) Urine Cocaine Screen (Not Detect) U Marijuana (THC) Screen (Not Detect) Ethyl Alcohol mg/dL Influenza Type A (PCR) (Negative) Influenza Type B (PCR) (Negative) RSV RNA Qual (PCR) (Negative) SARS-CoV-2 RNA (RT-PCR) (Negative) Radiology Impression Discussion of test interpretation with radiology: I have reviewed the radiologist's reading. Radiologist Impression: FINDINGS: Exam limited by motion artifact near the superior aspect. There is no evidence of intracranial hemorrhage or extra-axial fluid collection. There is no mass effect, or edema. No CT evidence of acute territorial infarct. Ventricles, sulci, and cisterns are normal in size and configuration for patient age. No hydrocephalus. No midline shift. Negative hyperdense MCA sign. Negative insular ribbon sign. Patchy periventricular and deep white matter hypoattenuation is consistent with mild small vessel ischemic changes. 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 Normal pituitary. Mild atheromatous calcification of the bilateral carotid siphons and V4 segments vertebral arteries bilaterally. Mild proptosis of uncertain significance. Globes and orbital contents image normally. No extracranial soft tissue abnormalities. The paranasal sinuses, mastoid air cells, and tympanic cavities are normally aerated. No suspicious bony abnormalities. There are no acute fractures evident. CT/CT head/brain wo IV con IMPRESSION: No acute intracranial abnormalities. EXAMINATION: XR CHEST 1 VIEW HISTORY: AMS COMPARISON: Comparison is made with the prior examination dated 08/06/2024. FINDINGS: A single AP portable view of the chest performed at 12:06 PM is submitted. There are low lung volumes. The lungs are grossly clear. There is no pleural effusion, pneumothorax, or pulmonary vascular congestion. The heart is enlarged. There is degenerative disc disease of the spine. XR/XR chest 1V IMPRESSION: The megaly. Low lung volumes. The lungs are grossly clear. Electronically signed by: Jeovany Mckeon MD 11/12/2024 12:23 PM [facility] Dictated By: Jeovany Mckeon MD External Record Review External record reviewed: Inpatient record Critical Care Time Critical Care Time Critical Care Time: Yes Total Critical Care Time: 90 Attestation: I have personally provided critical care time exclusive of time spent on separately billable procedures. Time includes review of lab data, radiology results, discussion with consultants, and monitoring for potential decompensation. Intervention performed as documented. Discharge Plan Discharge Clinical Impression: Acute and chronic respiratory failure with hypercapnia, NICO (obstructive sleep apnea), UTI (urinary tract infection), COPD (chronic obstructive pulmonary disease) Patient Disposition: Admitted As Inpatient
[2024-11-12 11:37] LABS: Bacteria Urine None Seen (None Seen); Granular Casts Urine Present; Hyaline Casts Urine >20 /LPF (0-2); RBC Urine 0-2 /HPF (0-2); WBC Urine 0-5 /HPF (0-5)
[2024-11-12 11:46] LABS: MANUAL DIFF FLAG NO
[2024-11-12 11:47] LABS: Glucose, Whole Blood 109 mg/dL (60-115)
[2024-11-12 11:49] LABS: Basophils Percent Auto 0.5 % (0-2); Eosinophils Percent Auto 0.7 % (0-4); Hematocrit 34.1 % (37.0-47.0); Hemoglobin 10.2 g/dl (12.0-16.0); Imm Gran Abs Auto 0.02 X10*3/uL (0.00-0.03); Imm Gran Pct Auto 0.5 % (0.0-0.4); Lymphocytes Absolute Auto 0.9 X10*3/uL (1.2-4.9); Lymphocytes Percent Auto 20.7 % (20-40); Mean Corpuscular HGB Conc 29.9 g/dl (31.0-35.0); Mean Corpuscular Volume 100.3 fL (80.0-98.0); Mean Platelet Volume 10.3 fL (9.4-12.3); Monocytes Absolute Auto 0.4 X10*3/uL (0.1-1.2); Monocytes Percent Auto 10.1 % (2-11); Neutrophils Absolute Auto 2.8 x10*3/uL (2.0-8.3); Neutrophils Percent Auto 67.5 % (45-73); Platelet Count 137 X10*3/uL (160-400); Red Cell Distribution Width 12.2 % (11.0-16.0); White Blood Count 4.2 X10*3/uL (4.8-10.8)
[2024-11-12 11:52] LABS: INTERNATIONAL NORM RATIO 1.1 (0.9-1.1); Prothrombin Time 12.4 SEC (10.9-12.4)
[2024-11-12 12:01] LABS: Ammonia 44 umol/L (13-55)
[2024-11-12] MEDS: 0.9 % Sodium Chloride 1,917 ML 1917 ML IV (12:01)
[2024-11-12 12:08] LABS: Alanine Aminotransferase 19 U/L (0-31); Albumin Level 3.6 g/dL (3.5-5.0); Anion Gap 10 (12-20); Aspartate Amino Transferase 22 U/L (5-31); Bilirubin Total 0.1 mg/dL (0.0-1.0); Blood Urea Nitrogen 18 mg/dL (9-16); Calcium 8.3 mg/dL (8.4-10.2); Carbon Dioxide 35 mmol/L (22-29); Chloride 99 mmol/L (96-108); Creatinine Clr Calc Pharmacy 82.8; Estimated Glomerular Filt Rate > 60; Glucose Random 112 mg/dL (60-115); Lactic Acid 0.6 mmol/L (0.5-2.0); Magnesium 1.9 mg/dL (1.6-2.6); Potassium 4.7 mmol/L (3.3-5.1); Sodium 139 mmol/L (135-145); Total Protein 7.3 g/dL (6.5-8.0)
[2024-11-12] MEDS: cefTRIAXone sodium 1 GM VIAL IVPUSH (12:08)
[2024-11-12] MEDS: Doxycycline Hyclate 100 MG in 0.9 % Sodium Chloride 250 ML 166.67 MG IV (12:08)
[2024-11-12] MEDS: Acetaminophen 1,000 MG/100 ML PIGGYBACK 400 MG IV (12:09)
[2024-11-12 12:12] LABS: Troponin-I High Sensitivity 9.1 ng/L (<3.5-17.0)
[2024-11-12 12:19] LABS: Alkaline Phosphatase 47 U/L (39-117)
[2024-11-12 12:21] LABS: Influenza A PCR NEGATIVE (Negative); Influenza B PCR NEGATIVE (Negative); Resp Syncy Virus RNA Qual PCR NEGATIVE (Negative); SARS COV2 PCR INHOUSE NEGATIVE (Negative)
--- NOTE | 2024-11-12 12:35 | PC.NURSE ---
Respiratory at bedside to place patient on BIPAP d/t blood gas results and working of breathing.
[2024-11-12 12:43] LABS: VBG Base Excess 8.6 mmol/L; VBG HCO3 40 mmol/L (22-26); VBG pCO2 105 mmHg; VBG pH 7.18 (7.32-7.43); VBG pO2 46 mmHg
[2024-11-12 12:44] LABS: Venous Blood Gas Refer to POC result
[2024-11-12 12:48] LABS: B Type Natriuretic Peptide 237 pg/mL (<100)
[2024-11-12 13:08] LABS: Ethanol < 10 mg/dL
[2024-11-12] MEDS: Albuterol Sulfate 5 MG, Albuterol/Iprat 2.5/0.5MG 3 ML 3 ML INHALE ×2 (13:08→15:04)
[2024-11-12 13:10] LABS: Amphetamine Screen Urine Not Detected (Not Detect); Barbiturates, Urine Not Detected (Not Detect); Benzodiazepines Screen Urine Not Detected (Not Detect); Buprenorphine Scr Not Detected (Not Detect); Cannabinoid Screen Urine Not Detected (Not Detect); Cocaine Screen Urine Not Detected (Not Detect); Fentanyl, urine Not Detected (Not Detect); Methadone Screen, Urine Not Detected (Not Detect); Opiate Screen Urine Not Detected (Not Detect); Oxycodone Screen Urine Not Detected (Not Detect); Phencyclidine Screen Urine Not Detected (Not Detect)
--- NOTE | 2024-11-12 13:17 | PC.RT ---
RT called to bedside for assessment. Pt is somnolent but responds to painful stimuli. SATs 97% on 4L NC, pt breathing shallow RR 14. VBG shows a partially compensated respiratory acidosis pH 7.18 CO2 105. Pt placed on Bipap 20/5 32% RR 24. Given neb via aerogen due to minimal air movement, L/S diminished bilateral. MD aware of bipap settings and neb tx, will repeat labwork to assess improvement.
--- NOTE | 2024-11-12 14:00 | PC.NURSE ---
MD Macias made aware of first post fluids of BP 92/40 MAP 57. pending further interventions.
[2024-11-12 14:08] LABS: Acetaminophen LAB 10 mcg/mL (<30); Salicylate < 5.0 mg/dL (15-30)
--- NOTE | 2024-11-12 14:20 | PC.NURSE ---
patient upper dentures loose while on bipap. RT assisted this RN with removal of upper dentures and pt placed back on BIPAP. dentures secured in blue denture cup and given to to take home for now and return them to pt when more alert and able to eat.
[2024-11-12 14:40] LABS: VBG Base Excess 5.3 mmol/L; VBG HCO3 35 mmol/L (22-26); VBG pCO2 85 mmHg; VBG pH 7.22 (7.32-7.43); VBG pO2 64 mmHg
[2024-11-12 14:47] LABS: Venous Blood Gas Refer to POC result
--- OUTSIDE RECORDS SUMMARY | 2024-11-12 14:49 | XMS_ITS | Clinical Summary ---
Author Organization [employer] Address [address] [place] [address] Care Team Providers Care Headlight Assembler Name Role Phone Luke Gayle PharmD Unavailable [...] BLOOD SUGAR THREE TIMES DAILY 100 each 11 024 Active pravastatin (Pravachol) 40 MG tabletIndications :Other hyperlipidemia TAKE ONE TABLET EVERY EVENING 90 tablet 3 024 Active carvedilol (Coreg) 12.5 MG tablet Take 1 tablet (12.5 mg) by mouth with breakfast and with evening meal. 30 tablet 024 Active losartan (Cozaar) 50 MG tablet Take 1 tablet (50 mg) by mouth Once per day. 30 tablet 024 Active pantoprazole (ProtoNix) 20 MG EC tablet Take 1 tablet (20 mg) by mouth before breakfast. Do not crush, chew, or split. 30 tablet 024 Active insulin lispro (HumaLOG) 100 UNIT/ML injectionIndicati [...] times daily. Use as instructed 360 each 024 2024 Active Continuous Glucose [place] (FreeStyle Silvana 2 [place]) deviceIndications :Type 2 diabetes mellitus with other [...] 2024 Active Blood Glucose Monitoring Suppl (FreeStyle Independence Lite) w/Device kitIndications:Ty pe 2 diabetes mellitus with other specified complication, without long-term current use of insulin (CMS/HCC) Use to test blood sugar 2 times daily 1 kit Active ergocalciferol (Vitamin D2) 1.25 MG (51879 UT) capsule TAKE ONE CAPSULE EVERY WEEK 12 capsule 5 Active insulin glargine (Lantus SoloStar) 100 UNIT/ML [...] complication, without long-term current use of insulin ([facility]) TEST BLOOD SUGAR TWICE DAILY 100 each 3 Active Ketotifen Fumarate 0.035 % solutionIndicatio ns:Allergic conjunctivitis of left eye Administer 1 drop into affected eye(s) every 12 (twelve) hours if needed (twice a day f needed on affected eye). 5 mL 1 Active glucose blood (FREESTYLE LITE) test strip Please use to check BS 3x daily 100 strip 11 025 Active Janumet XR 50-1000 MG per 24 hr tabletIndications :Type 2 diabetes mellitus with other circulatory complications (CMS/HCC) TAKE 1 TABLET BY MOUTH EVERY EVENING WITH FOOD 30 tablet 5 Active famotidine (Pepcid) 20 MG tabletIndications :Epigastric pain Take 1 tablet (20 mg) by mouth 2 times daily. 60 tablet 11 025 2025 Active famotidine (Pepcid) 20 MG tabletIndications :Epigastric pain Take 1 tablet (20 mg) by mouth 2 times daily. 60 tablet 11 024 2024 Discontinued(R eorder (will not trigger notification to Pharmacy)) Active Problems Problem Noted Date Diagnosed Date [...] Encounters Date Type Department Care Team Description 11/05/2024 Refill [facility] [address] [place] [address] Bárbara Rader MD Epigastric pain 11/04/2024 Refill [facility] [address] [place] [address] Carmine Patel MD Epigastric pain 10/27/2024 Orders Only GENERIC EXTERNAL DATA DEPARTMENT Provider, Generic External Data 10/16/2024 Telephone [facility] [address] [place] [address] Bárbara Rader MD Nurse Triage 10/10/2024 Refill [facility] [address] [place] [address] Carmine Patel MD Type 2 diabetes mellitus with other circulatory complications ([facility]) 10/03/2024 Telephone [facility] [address] [place] [address] Bárbara Rader MD Durable Medical Equipment 10/03/2024 Telephone [facility] [address] [place] [address] Bárbara Rader MD Nurse Triage 10/02/2024 Refill [facility] [address] [place] [address] Bárbara Rader MD 09/30/2024 Telephone [facility] [address] [place] [address] Jae Keen [place] Durable Medical Equipment 09/19/2024 Telephone [facility] [address] [place] [address] Bárbara Rader MD Appointment Request 09/15/2024 Telephone [facility] [address] [place] [address] Bárbara Rader MD Appointment Request 09/03/2024 Telephone [facility] [address] [place] [address] Bárbara Rader MD Durable Medical Equipment from Last 3 Months Immunizations Name Administration Dates Next Due Influenza High-dose Quadriva lent Preservative Free 06/18/2023,06/09/2022,07/07/2021 Influenza injectable quadriv alent IIV4 with preservative 07/27/2016 Influenza, High Dose Seasona l, Preservative Free 06/03/2024,07/16/2019,07/31/2018,06/06 Influenza, IIV3, injectable 07/27/2014, 3,07/05/2011 Influenza, Split (incl. efren fied surface antigen) 07/19/2012 Influenza, intradermal, quad rivalent, preservative free 05/15/2016 Influenza, seasonal, injecta ble, preservative free 05/28/2020 Novel [id number], all formulations 05/15/2016 Pneumococcal Conjugate PCV 13 [...] Office Visit [facility] [address] [place] [address] Bárbara Rader MD [address] [place] [address] Health Maintenance Due Date Last Done Comments [...] 1:19 PM EST) No Luke Gayle, PharmD Procedures Procedure Name Priority Date/Time Associated Diagnosis Comments CULTURE, URINE, ROUTINE Routine 10/27/2024 9:43 AM EST HEPATITIS C AB W/REFL TO HCV RNA, [...] Recently Relevant to Health Maintenance Results * Culture, Urine, Routine (10/27/2024 9:43 AM EST) Urine Urine specimen obtained by clean catch procedure / Unknown 10/27/2024 9:43 AM EST 10/27/2024 5:12 PM EST Comment:[facility] Narrative [facility] - 10/29/2024 10:55 AM EST Urine Culture No growth. Specimen Source: Urine clean catch us Generic External Data Provider LAB MICROBIOLOGY - GENERAL ORDERABLES Final Result [facility] [address] [place] [phone] * Hepatitis C Antibody with Reflex to HCV, RNA, Quantitative, Real-Time PCR (06/20/2024 2:54 PM EDT) Hepatitis C Antibody Nonreactive Nonreactive [facility] Comment:Antibodies to HCV no t detected; does not exclude early acuteHCV infection. Blood Venous blood specimen / Unknown 06/20/2024 2:54 PM EDT 06/20/2024 2:54 PM EDT us Carmine Patel MD LAB BLOOD ORDERABLES Final Result Performing Organization Address [facility] Co de Phone Number [facility] [address] [place] [address] [phone] * Lipid Panel, Standard (06/20/2024 2:54 PM EDT) Triglycerides 81 <150 mg/dL [facility] Comment:Desirable Triglyceri de: less than 150 mg/dLBorderline High Triglyceride 150-199 mg/dLHigh Triglyceride: 200-499 mg/dLVery High Triglyceride: greater than or equal to 5OO mg/dL Cholesterol 152 <200 mg/dL [facility] Comment:Desirable Cholestero l: less than 200 mg/dLBorderline High Cholesterol: 200-239 mg/dLHigh Cholesterol: greater than 239 mg/dL LDL Cholesterol Calculated 86 <100 mg/dL [facility] Comment:Desirable LDL: less than 100 mg/dLNear Optimal/Above Optimal LDL: 110- 129 mg/dLBorderline High LDL: 130-159 mg/dLHigh LDL: 160-189 mg/dLVery High LDL: greater than or equal to 190 mg/dL HDL Cholesterol 50 >40 mg/dL [facility] Comment:Desirable HDL: great er than 40 mg/dL Note: This HDL assay may give artificially low results in patients with liver disease. Blood Venous blood specimen / Unknown 06/20/2024 2:54 PM EDT 06/20/2024 2:54 PM EDT us Carmine Patel MD LAB BLOOD ORDERABLES Final Result Performing Organization Address [facility] Co de Phone Number [facility] [address] [place] [phone] * (ABNORMAL) Albumin, Random Urine W/Creatinine (06/20/2024 1:00 PM EDT) Creatinine, Urine 35.87 mg/dL [facility] Microalbumin Urine 19.0 mg/L H [facility] Microalbum Creatinine Ratio Ur 52.9(H) <30 ug/mg cr [facility] Comment:Albumin/Creatinine R atio Reference Ranges: Normal: < 30 ug/mg creatinine Microalbuminuria: 30 - 300 ug/mg creatinineClinical Albuminuria: > 300 ug/mg creatinine Urine (Urine, Random) 06/20/2024 1:00 PM EDT 06/20/2024 3:09 PM EDT us Carmine Patel MD LAB URINE ORDERABLES Final Result [facility] [address] [place] [phone] * (ABNORMAL) POCT HGB A1C (06/03/2024 11:36 AM EDT) Hemoglobin A1C 7.0(A) 4.0 - 6.0 % QC Media Lot # [id number] Lot# Expiration Date ,412,443 Blood 06/03/2024 11:3 6 AM EDT us Carmine Patel MD POINT OF CARE TEST ENTER/ED IT ORDERABLES Final Result from Last 3 Months or Most Recently Relevant to Health Maintenance Insurance [facility] Care Teams Headlight Assembler Relationship Specialty Start Date End Date Bárbara Rader MD [address] [place] [phone] PCP - General Internal Medicine 07/16/24 Luke Gayle PharmD Pharmacist Internal Medicine 09/04/22 [facility] 07/10/24
--- OUTSIDE RECORDS SUMMARY | 2024-11-12 14:49 | XMS_ITS | Encounter Summary ---
Author Organization [employer] Address [address] [place] [address] Care Team Providers Care Panel Saw Operator Name Role Phone Luke Gayle PharmD Unavailable Unavail able Bárbara Rader MD Primary Care Provide r Encounter Details Date Type Department Care Team (Late st Contact Info) Description 10/27/2024 Orders Only GENERIC EXTERNAL DATA DEPARTMENT Provider, Generic External Data Social History Tobacco Use Types Packs/Day Years [...] Description 11/25/2024 9:00 AM EDT Office Visit [facility] MED[facility] [address] [place] [address] Bárbara Rader MD [address] [place] [address] documented as of this encounter Goals Goal Patient Goal Type Associated Problems Recent Progress Patient-Stated? Author Blood Pressure < 140/90 Blood Pressure 142/70( 024 1:19 PM EST) No Luke Gayle, JarettD documented as of this encounter Procedures Procedure Name Priority Date/Time Associated Diagnosis Comments CULTURE, URINE, ROUTINE Routine 10/27/2024 9:43 AM EST documented in this encounter Results * Culture, Urine, Routine (10/27/2024 9:43 AM EST) Urine Urine specimen obtained by clean catch procedure / Unknown 10/27/2024 9:43 AM EST 10/27/2024 5:12 PM EST Comment:[facility] Narrative [facility] - 10/29/2024 10:55 AM EST Urine Culture No growth. Specimen Source: Urine clean catch us Generic External Data Provider LAB MICROBIOLOGY - GENERAL ORDERABLES Final Result [facility] [address] [place] [phone] documented in this encounter Visit Diagnoses Not on filedocumented in this encounter Additional Health Concerns Assessment Noted Time PHQ-9 Depression Total Score: 0 07/16/20 10:22 AM EDT documented as of this encounter Care Teams Panel Saw Operator Relationship Specialty Start Date End Date Bárbara Rader MD [address] [place] [phone] PCP - General Internal Medicine 07/16/24 Luke Gayle PharmD Pharmacist Internal Medicine 09/04/22 [facility] 07/10/24 documented as of this encounter
--- OUTSIDE RECORDS SUMMARY | 2024-11-12 14:49 | XMS_ITS | Continuity of Care Document ---
Author Organization [facility] Voice Assist Hubbard, Ma in - [facility] Address [address] [place] [phone] Care Team Providers Care Shift Supervisor Film Processing Name Role Phone HIM [facility] OTHER [facility] OTHER [phone] Assessment No assessment recorded. Plan of Treatment Reminders Order Date Submit Date Provider Last Modified By Organization Details Last Modified Time Details Appointments None recorded. Lab None recorded. Referral None recorded. Procedures None recorded. Surgeries None recorded. Imaging None recorded. Medication Orders sulfamethox azole 800 mg-trimetho prim [address] [facility], [address] [place], [place], [phone], 11:07:13 Patient TargetsNo targets recorded. Patient InstructionsNo instructions recorded. Reason for Referral None Reported. Results Created Date Observation Date Name Description Value Unit Range Abnormal Flag Note LastModifiedBy Organization Detail LastModifiedTime 10/03/19 25 10/03/2024 elect rocar diogr am No observ ation record ed. gbaci [address], [phone], 10/03/2024 18:07:20 11/11/19 25 11/12/2024 elect rocar diogr am No observ ation record ed. [email or web address] [address], [phone], 11/12/2024 08:13:36 Result Notes None recorded. Medical Equipment None Reported. Allergies Allergen ID Allergen Name Allergen Category Reaction Reaction Severity Criticality Documentation Date Start Date Code Code System Note Provider Name and Address Organization Details Recorded Time 18309 lisinopri l medicatio n Not available Not available Not available 10/03/2024 42018 RxNorm Not Available Shasha - production 5 14:54:18 Medications Name Sig [...] zole 800 mg-trimethop rim 160 mg tablet TAKE 1 TABLET BY MOUTH EVERY TWELVE HOURS FOR 3 DAYS active Not Available Not Available No t Available spironolacto ne 25 mg tablet TAKE ONE [...] Not Available Not Available No t Available ondansetron 4 mg disintegrati ng tablet 1-2 tablets SL q 8 hrs prn n/v 2024 active Not Available Not Available Not Avai lable losartan 100 mg tablet TAKE ONE TABLET [...] KwikPen (U-100) Insulin 100 unit/mL subcutaneous INJECT 5 UNITS SUBCUTANEOU SLY THREE TIMES DAILY WITH BREAKFAST, WITH LUNCH, AND WITH DINNER active Not Available Not Available No t Available Eye Itch Relief 0.025 % (0.035 %) drops PLACE 1 DROP INTO THE AFFECTED EYE(S) EVERY TWELVE HOURS NEEDED active Not Available Not Available No t Available BD Ultra-Fine Gracy Pen Needle 32 gauge x USE DIRECTED FOUR TIMES DAILY DIRECTED active Not Available Not Available [...] SNOMED-CT Code Diagnosis ICD10 Code Diagnosis Note [id number] KAMRYN GERONIMO MD Main - [address] [phone] 10/03/2024 16:28:44 10/03/2024 22:24:33 Contusion of orbital tissue of right eye [id number] S05.11XA Evaluation in the field was performed by my special projects coordinator colleague, as noted above, I provided real-time direction and supervisio n for this visit. German interprete r was used to communicat e [...] room air. Low-grade temperatur e, but the special projects coordinator reports that the room is very warm.Exam: Small bruising and swelling under the right eye and temporal area, with no periorbita l ecchymosis ( raccoon eyes ). No tenderness to palpation over the affected area or the bridge of the nose. Normal eye movement with no reported pain. The special projects coordinator reports rhonchi on lung examinatio n. No [...] exac erbation of chronic obstructive pulmonary disease [id number] J44.1 Patient denies shortness of breath, cough, or upper respirator y infection symptoms. The special projects coordinator reported rhonchi on lung examinatio n. On [...] the first dose administer ed by the special projects coordinator. -Due to the lack of wheezing, her stable oxygen saturation on chronic oxygen, and her history of diabetes requiring insulin, the decision was made not to start Prednisone to avoid hyperglyce daniela.-Red flags were discussed with the patient. [id number] DA MITCHELL MD [facility] - [address] [phone] 10/16/2024 20:52:29 10/21/2024 15:57:41 Headache [id number] R51.9 Pain in left arm [id number] M79.602 [id number] Mar Jiménez MD [facility] - [address] [phone] 10/18/2024 15:45:59 10/21/2024 16:36:29 Altered mental status [id number] R41.82 Evaluation in the field was performed by my special projects coordinator colleague, as noted above, I provided real-time direction and supervisio n for this visit. 79 yo F PMHx HTN, CAD, T2DM, COPD on 2L home O2 p/w ongoing ANGELO, body aches for which she was seen yesterday by [facility]. Repeat visit requested by son as pt awoke this AM and felt confused, spontaneou sly resolved. Triage note reports dizziness however pt denies this. ANGELO resolved. Endorsed urinary frequency without dysuria, fevers, hematuria. On special projects coordinator eval VS wnl, exam wnl including A+O [...] endorsed ongoing L shoulder/a rm pain. On special projects coordinator exam not swelling or deformity, rotator cuff [...] shortness of breath, cough, chest pain, fever. [id number] Sayra Arevalo MD Main - [address] [phone] 10/21/2024 15:55:58 10/21/2024 17:31:04 Urinary symptoms [id number] R39.9 Health Concerns Section Related Observation LastModified by Organization Detai ls LastModified Time None Recorded Concern Status LastModified by Organization Details LastModified Time None Recorded Payers Encounter Date Sequence Insurance Name Policy Number Policy Elizondo Covered Member ID Elizondo Member ID Guarantor Name 10/21/2024 1 [facility] - DOS ON OR AFTER 2022 - DUAL ELIGIBLE - CORRECTION OPTIONS AND ONE CARE (MEDICARE REPLACEMENT/ADV ANTAGE - HMO) Magalie Stein [id number] Magalie Calos Stein OBGyn Episode No OBEpisode recorded.
--- OUTSIDE RECORDS SUMMARY | 2024-11-12 14:49 | XMS_ITS | Continuity of Care Document ---
Author Organization [employer] [facility], [place] - [facility] Address [address] [place] [phone] Care Team Providers Care Assignment Officer Name Role Phone HIM [facility] OTHER [facility] OTHER Assessment Encounter Date Assessment Date [...] q6hr PRN. FUP with PCP. Precautions reviewed. [email or web address] Not available 10/20/2024 22:40:59 Plan of Treatment Reminders Order Date Submit Date Provider Last Modified By Organization Details Last Modified Time Details Appointments None recorded. Lab None recorded. Referral None recorded. Procedures None recorded. Surgeries None recorded. Imaging None recorded. Medication Orders Tylenol Extra Strength 500 mg tablet 2024 025 [email or web address] 7 [facility], [address] [place], [place], [phone], 20:55:03 Patient TargetsNo targets recorded. Patient InstructionsNo instructions recorded. Reason for Referral None Reported. Results Created Date Observation Date Name Description Value Unit Range Abnormal Flag Note LastModifiedBy Organization Detail LastModifiedTime 10/03/1910/03/2024 abraham kim am No observ ation record ed. [facility] [address] [place] [address], [phone], 10/03/2024 18:07:20 11/11/19 25 11/12/2024 elect hernan diogr am No observ ation record ed. [email or web address] Main - [facility] [address] [place] [address], [place], [phone], 11/12/2024 08:13:36 Result Notes None recorded. Medical Equipment None Reported. Allergies Allergen ID Allergen Name Allergen Category Reaction Reaction Severity Criticality Documentation Date Start Date Code Code System Note Provider Name and Address Organization Details Recorded Time 39763 lisinopri l medicatio n Not available Not available Not available 10/03/2024 63702 RxNorm Not Available [facility] - production 14:54:18 [...] Ultra-Fine Gracy Pen Needle 32 gauge x 5/32 USE DIRECTED FOUR TIMES DAILY DIRECTED active [...] Details Last Updated DateTime 5 73 /min 191984 g 160.02 cm 99 [degF] 98 % 98 % 2 L/min 18 /min 155 mm[Hg] 81 mm[Hg] Not Available [facility] - production 5 20:52:30 Date Recorded Heart rate Respiratory rate Oxygen saturation Oxygen saturation in Arterial blood by Pulse oximetry Inhaled oxygen flow rate Body weight Body height Body temperature Systolic blood pressure Diastolic blood pressure Provider Name and Address Organization Details Last Updated DateTime 5 60 /min 18 /min 100 % 100 % 2 L/min 449715 g 160.02 cm 98.7 [degF] 194 mm[Hg] 91 mm[Hg] Not Available [facility] - production 15:59:16 Social History None recorded. Functional Status None recorded. Mental Status None recorded. Family History Nothing Reported. Medical History No medical history recorded. Gynecological HistoryNo gynecological history recorded. Obstetrics History GPAL:G 0 P 0 0 0 0 Past Encounters Encounter ID Performer Location Encounter Start Date Encounter Closed Date Diagnosis/Indication Diagnosis SNOMED-CT Code Diagnosis ICD10 Code Diagnosis Note [id number] KAMRYN GERONIMO MD Main - [facility] [address] [place] [phone] 10/03/2024 16:28:44 10/03/2024 22:24:33 Contusion of orbital tissue of right eye [id number] 7155757 S05.11XA Evaluation in the field was performed by my factory process workers colleague, as noted above, I provided real-time direction and supervisio n for this visit. Beninese interprete r was used to communicat e [...] room air. Low-grade temperatur e, but the factory process workers reports that the room is very warm.Exam: Small bruising and swelling under the right eye and temporal area, with no periorbita l ecchymosis ( raccoon eyes ). No tenderness to palpation over the affected area or the bridge of the nose. Normal eye movement with no reported pain. The factory process workers reports rhonchi on lung examinatio n. No [...] exac erbation of chronic obstructive pulmonary disease 402934166 J44.1 Patient denies shortness of breath, cough, or upper respirator y infection symptoms. The factory process workers reported rhonchi on lung examinatio n. On her medication list, Albuterol inhaler and nebulizer are listed, but the patient denies having or using either. Flu and Covid negative-G iven her history of COPD with chronic oxygen requiremen t, Dusarahib x1 was administer ed.A prescripti on for an Albuterol MDI with spacer was sent to her pharmacy.- A prescripti on for Azithromyc in was also sent to her pharmacy, with the first dose administer ed by the factory process workers. -Due to the lack of wheezing, her stable oxygen saturation on chronic oxygen, and her history of diabetes requiring insulin, the decision was made not to start Prednisone to avoid hyperglyce daniela.-Red flags were discussed with the patient. [id number] DA MITCHELL MD Main - [facility] [address] [place] [phone] 10/16/2024 20:52:29 10/21/2024 15:57:41 Headache 15210520 R51.9 Pain in left arm 6110636 00 M79.602 Health Concerns Section Related Observation LastModified by Organization Detai ls LastModified Time None Recorded Concern Status LastModified by Organization Details LastModified Time None Recorded Payers Encounter Date Sequence Insurance Name Policy Number Policy Elizondo Covered Member ID Elizondo Member ID Guarantor Name 10/16/2024 1 [facility] - DOS ON OR AFTER 2022 - DUAL ELIGIBLE - INTERMEDIATE OPTIONS AND ONE CARE (MEDICARE REPLACEMENT/ADV ANTAGE - HMO) Magalie Stein [id number] Magalie Stein Notes Date Note Type Note [...] (UTI), Chronic Kidney Disease PMH Reviewed at 10/16/2024: Allergies Reviewed at 10/16/2024:42 Comments: HPI reviewed by this RN, no further information needed to process visit -Geronimo Acosta RN ................... ................... ................... ................... ................... ................... ................... ........ Autocad Designer Note From Joselito Rogers: [facility] visit for female pt. Pt is mozambican speaking only and transportation director was used. Pt presents complaining of headache [...] afebrile. Lung sounds clear bilaterally. Consulted with [facility] Dr Mitchell and reviewed dosage for tylenol. Pt then stated had taken some at 3 pm and would take more if she thought she needed it . Reviewed red flags for ED. Pt education provided. ................... ................... ................... ................... ................... ................... ................... ........ [facility] Consulted: Da Mitchell ................... ................... ................... ................... ................... ................... ................... ........ Disposition: Fulfilled DA MITCHELL MD [address] [place] [address],[address], [place], [phone], [employer] 10/20/2024 22:41:05 10/18/2024 text/html CRC Nurse Triage [...] - 14:00 Allergies Reviewed at 10/18/2024 - 14:00 Comments: Accounting Manager Assistant Controller verified the member's name//address and phone number. [...] s/s and seek emergency treatment if needed. Autocad Designer Organization Information for Efrain Oakley Business Legal Name: [employer]? Address: [address] [place] [address], Fur Comber: Too ORELLANA No.: [id number] Autocad Designer POC Test Results from Efrain Oakley Urine Dipstick (16:02:19) Urine leukocytes: 70+ PORSCHE Urine nitrites: - NIT Urine urobilinogen: 0.2-3.5 URO Urine protein: 15+-0.15 PRO Urine pH: 7.0 pH Urine blood: - BLO Urine specific gravity: 1.010 SG Urine ketones: 5+-0.5 KET Urine bilirubin: - RICO Urine glucose: - GLU ................... ................... ................... ................... ................... ................... ................... ........ Autocad Designer Note From Efrain Oakley: [facility] makes pt contact. She is seated in a chair in her living room and she turns and greets [facility]. She is generally well appearing, wearing a NC, and making good eye contact. No stridor or sonorous respirations are heard, no facial droop or one-sided weakness are observed, and she is not bleeding anywhere. Pt is Beninese-speaking only, so transportation director services via cell phone are attempted. Pt has difficulty hearing and understanding the transportation director, so she calls her son on FaceTime [...] She consents to evaluation and treatment today. [facility] obtains vital signs and pt is assessed. Lung sounds are clear and nothing remarkable is noted upon physical exam. Urine sample is obtained via clean catch for culture and dip stick analysis. [facility] contacts [facility] and discusses the above. [facility] orders urine culture and a bmp. [facility] is unable to gain IV access for bmp. [facility] gives instructions for family to take pt to the ED if her confusion persists and decision about medication for possible UTI will be made after culture returns. Pt and family thank [facility] for coming. WITan is clear. Report completed by WINSTON Oakley [id number]. [facility] Lab Orders: urinalysis, dipstick: Performed BMP, serum or plasma: Not Performed Comment: Unable to obtain adequate sample amount. ................... ................... ................... ................... ................... ................... ................... ........ [facility] Consulted: Mar Jiménez ................... ................... ................... ................... ................... ................... ................... ........ Disposition: Fulfilled Mar Jiménez MD [address] [place] [address],[address], [place], [phone], [email or web address] 10/18/2024 21:29:19 OBGyn Episode No OBEpisode recorded.
--- OUTSIDE RECORDS SUMMARY | 2024-11-12 14:49 | XMS_ITS | Encounter Summary ---
Author Organization [employer] Address [address] [facility] [address] [facility] [address] [address] [address] [place] [address] Care Team Providers Care Seo Marketing Specialist Name Role Phone Luke Gayle PharmD Unavailable Unavail able Bárbara Rader MD Primary Care Provide r Encounter Details Date Type Department Care Team (Late st Contact Info) Description 11/05/2024 Refill [facility] [address] [place], [place] [phone] Bárbara Rader MD [address] [place], [place] [phone] Epigastric pain Social History Tobacco Use Types Packs/Day Years [...] housing situation today? I have trumanwendy greene 07/09/[address] you [...] Description 11/25/2024 9:00 AM EDT Office Visit [facility] [address] [place] [address] Bárbara Rader MD [address] [place] [address] documented as of this encounter Goals Goal Patient Goal Type Associated Problems Recent Progress Patient-Stated? Author Blood Pressure < 140/90 Blood Pressure 142/70( 024 1:19 PM EST) No Luke Gayle, PharmD documented as of this encounter Visit Diagnoses Diagnosis Epigastric pain Abdominal pain, epigastric documented in this encounter Additional Health Concerns Assessment Noted Time PHQ-9 Depression Total Score: 0 07/16/20 24 10:22 AM EDT documented as of this encounter Care Teams Seo Marketing Specialist Relationship Specialty Start Date End Date Bárbara Rader MD [address] [place] [address] PCP - General Internal Medicine 07/16/24 Luke Gayle, PharmD Pharmacist Internal Medicine 09/04/22 [facility] 07/10/24 documented as of this encounter
--- OUTSIDE RECORDS SUMMARY | 2024-11-12 14:49 | XMS_ITS | Encounter Summary ---
Author Organization [employer] Address [address] [place] [address] Care Team Providers Care Multiplex Operator Name Role Phone Luke Gayle PharmD Unavailable Unavail able Bárbara Rader MD Primary Care Provide r Reason for Visit * Reason Onset Date Comments Durable Medical Equipment 09/03/2024 Encounter Details Date Type Department Care Team ([facility] st Contact Info) Description 09/03/2024 Telephone [facility] [address] [place] [address] Bárbara Rader MD [address] [place], [place] [phone] Durable Medical Equipment Social History Tobacco Use [...] small. Anyfurther questions may contact phone # [phone]. documented in this encounter Plan of Treatment Upcoming Encounters Date Type Department Care Team (Late st Contact Info) Description 11/25/2024 9:00 AM EDT Office Visit [facility] [address] [place] [address] Bárbara Rader MD [address] [place] [address] documented as of this encounter Goals Goal [...] documented as of this encounter Care Teams Multiplex Operator Relationship Specialty Start Date End Date Bárbara Rader MD [address] [place] [address] PCP - General Internal Medicine 07/16/24 Luke Gayle PharmD Pharmacist Internal Medicine 09/04/22 [facility] 07/10/24 documented as of this encounter
--- OUTSIDE RECORDS SUMMARY | 2024-11-12 14:49 | XMS_ITS | Encounter Summary ---
Author Organization [employer] Address [address] [facility] 7t [place] [address] Care Team Providers Care Cold Roll Catcher Name Role Phone Luke Gayle PharmD Unavailable Unavail able Bárbara Rader MD Primary Care Provide r Reason for Visit * Reason Comments Med Refill Encounter Details Date Type Department Care Team (Late st Contact Info) Description 11/04/2024 Refill [facility] [address] [place] [address] Carmine Patel MD [address] [place] [address] Epigastric pain Social History Tobacco Use Types [...] Description 11/25/2024 9:00 AM EDT Office Visit [facility] [address] [place] [address] Bárbara Rader MD [address] [place] [address] documented as of this encounter Goals Goal [...] documented as of this encounter Care Teams Cold Roll Catcher Relationship Specialty Start Date End Date Bárbara Rader MD [address] [place] [address] PCP - General Internal Medicine 07/16/24 Luke Gayle, PharmD Pharmacist Internal Medicine 09/04/22 [facility] 07/10/24 documented as of this encounter
--- OUTSIDE RECORDS SUMMARY | 2024-11-12 14:49 | XMS_ITS | Encounter Summary ---
Author Organization [employer] Address [address] [facility] 7t [place] [address] Care Team Providers Care Stitching Machine Setter Name Role Phone Carmine Patel MD Primary Care Provider [phone] Luke Gayle PharmD Unavailable Unavail able Bárbara Rader MD Primary Care Provide r Encounter Details Date Type Department Care Team (Late st Contact Info) Description 06/26/2024 Orders Only [facility] PEDS [address] [place], [place] [phone] Carmine Patel MD [address] [place], [place] [phone] Burning sensation (Primary Dx) Social History Tobacco [...] Description 11/25/2024 9:00 AM EDT Office Visit [facility] [address] [place] [phone] Bárbara Rader MD [address] [place] [address] documented as of this encounter Goals Goal [...] documented as of this encounter Care Teams Stitching Machine Setter Relationship Specialty Start Date End Date Carmine Patel MD [address] [place] [address] PCP - General Internal Medicine 11/16/15 07/15/24 Bárbara Rader MD [address] [place] [address] PCP - General Internal Medicine 07/16/24 Luke Gayle PharmD [address] [place] [address] Pharmacist Internal Medicine 09/04/22 [facility] 07/10/24 documented as of this encounter
--- OUTSIDE RECORDS SUMMARY | 2024-11-12 14:50 | XMS_ITS | Encounter Summary ---
Author Organization [employer] Address [address] [facility] 7t [place] [address] Care Team Providers Care Laborer Driver Name Role Phone Carmine Patel MD Primary Care Provider [phone] Luke Gayle PharmD Unavailable Unavail able Bárbara Rader MD Primary Care Provide r Encounter Details Date Type Department Care Team (Late st Contact Info) Description 01/18/2024 Orders Only [facility] [address] [place], [place] [phone] Carmine Patel MD [address] [place], [place] [phone] Urinary incontinence, unspecified type (Primary Dx) Social [...] Description 11/25/2024 9:00 AM EDT Office Visit [facility] [address] [place] [address] Bárbara Rader MD [address] [place] [address] documented as of this encounter Goals Goal [...] (06/20/2024 1:00 PM EDT) Color Urine Yellow [facility] Appearance Urine Cloudy [facility] PH 6.5 5.0 - 9.0 [facility] Glucose Urine UA Negative Negative mg/dL [facility] Urine Blood Trace(A) Negative [facility] Specific [place] - Urine 1.010 1.005 - 1.025 [facility] Urine Protein Negative Neg-Trace mg/dL [facility] Urine Ketones Negative Negative mg/dL [facility] Nitrite Urine Negative Negative [facility] Leukocyte Esterase Urine Large (3+)(A) Negative [facility] RBC Urine 0-2 0 - 2 /HPF [facility] Urine WBC >50(A) 0 - 5 /HPF [facility] Urine Squamous Epithelial Cell 0-2 0 - 2 /HPF [facility] Urine Bacteria 4+ None Seen [facility] Hyaline Casts, Urine 0-2 0 - 2 /LPF [facility] Urine 06/20/2024 1:00 PM EDT 06/20/2024 3:09 PM EDT Narrative [facility] - 06/20/2024 3:25 PM EDT Urine, Clean Catch Carmine Patel MD LAB URINE ORDERABLES Final Result Performing Organization Address City/State/[facility] Co de Phone Number [facility] [address] [place] [address] [phone] documented in this encounter Visit Diagnoses Diagnosis Urinary incontinence, unspecified type- Primary documented in this encounter Additional Health Concerns Assessment Noted Time PHQ-9 Depression Total Score: 0 10/09/19 23 11:12 AM EST documented as of this encounter Care Teams Laborer Driver Relationship Specialty Start Date End Date Carmine Patel MD [address] [place] [address] PCP - General Internal Medicine 11/16/15 07/15/24 Bárbara Rader MD [address] [place] [address] PCP - General Internal Medicine 07/16/24 Luke Gayle, JarettD [address] [place] [address] Pharmacist Internal Medicine 09/04/22 [facility] 07/10/24 documented as of this encounter
--- OUTSIDE RECORDS SUMMARY | 2024-11-12 14:50 | XMS_ITS | Encounter Summary ---
Author Organization [employer] Address [address] [facility] 7t [place] [address] Care Team Providers Care Maintenance Shop Laborer Name Role Phone Carmine Patel MD Primary Care Provider Luke Gayle PharmD Unavailable Unavail able Bárbara Rader MD Primary Care Provide r Encounter Details Date Type Department Care Team (Late Contact Info) Description 06/21/2023 Orders Only [facility]S [address] [place], [place] [phone] Carmine Patel MD [address] [place], [place] [phone] Right hip pain (Primary Dx) Social History [...] EDT Office Visit [facility] [address] [place] [address] Bárbara Rader MD [address] [place] [address] documented as of this encounter Goals Goal [...] documented as of this encounter Care Teams Maintenance Shop Laborer Relationship Specialty Start Date End Date Carmine Patel MD [address] [place] [address] PCP - General Internal Medicine 11/16/15 07/15/24 Bárbara Rader MD [address] [place] [address] PCP - General Internal Medicine 07/16/24 Luke Gayle, PharmD [address] [place] [address] Pharmacist Internal Medicine 09/04/22 [facility] 07/10/24 documented as of this encounter
--- OUTSIDE RECORDS SUMMARY | 2024-11-12 14:50 | XMS_ITS | Encounter Summary ---
Author Organization [employer] [facility] Address [address] [facility] 7t [place] [address] Care Team Providers Care Price Economist Name Role Phone Carmine Patel MD Primary Care Provider Luke Gayle PharmD Unavailable Unavail able Bárbara Rader MD Primary Care Provide r Encounter Details Date Type Department Care Team (Latest Contact Info) Description 06/26/2019 Abstract [facility] CONVERSIONS Dental, Provider, DDS Social History Tobacco [...] 9:00 AM EDT Office Visit [facility] [address] [place], [place] [phone] Bárbara Rader MD [address] [place], [place] [phone] documented as of this encounter Visit Diagnoses Not on filedocumented in this encounter Care Teams Price Economist Relationship Specialty Start Date End Date Carmine Patel MD [address] [place] [address] PCP - General Internal Medicine 11/16/15 07/15/24 Bárbara Rader MD [address] [place] [address] PCP - General Internal Medicine 07/16/24 Luke Gayle PharmD [address] [place] [phone] Pharmacist Internal Medicine 09/04/22 [facility] 07/10/24 documented as of this encounter
--- OUTSIDE RECORDS SUMMARY | 2024-11-12 14:50 | XMS_ITS | Encounter Summary ---
Author Organization [employer] Address [address] [facility] [address] [place] [address] Care Team Providers Care Admitting Clerk Name Role Phone Carmine Patel MD Primary Care Provider [phone]- [phone] Luke Gayle PharmD Unavailable Unavail able Bárbara Rader MD Primary Care Provide r Reason for Referral * Consultation (Routine) - Closed Specialty Diagnoses / Procedures Referred By Alden andres Referred To Contact Physical Therapy Diagnoses Acute right ankle pain Carmine Patel MD [address] [place] [address] Phone: tel: fax: [facility] Physical Therapy [address] [place] [address] Phone: tel: fax: Referral ID Status Reason Start Date Expiration Date V isits Requested Visits Authorized [id number] Closed Specialty Services Required 03/28/2024 03/28/2025 1 1 Encounter Details Date Type Department Care Team (Late st Contact Info) Description 03/24/2024 Orders Only [facility] MED & PEDS [address] [place], [place] [phone] Carmine Patel MD [address] [place], [place] [phone] Acute right ankle pain (Primary Dx) Social [...] Description 11/25/2024 9:00 AM EDT Office Visit [facility] MEDICINE [address] [place] [address] Bárbara Rader MD [address] [place] [address] Scheduled Orders Name Type Priority Associated Diagnoses [...] EDT Narrative 03/28/2024 12:12 PM EDT ? [facility] ?[address] ?[place] [address] ?XRay Report ? Signed ? Patient: Magalie Solis ?MR#: [id number] ?? [id number] ? : 1945 ?Acct:[id number] ? Age/Sex: 78 / F ?ADM Date: 03/28/24 ? Loc: HO.ED ? Attending Dr: ? Ordering Physician: Elzbieta Franz ?? Date of Service: 03/28/24 ?? Procedure(s): XR knee RT 4V ?? Accession Number(s): [id number] ? cc: Carmine Patel MD; Elzbieta Franz [...] 1208 ? DD/ 1151 ? TD/TT: ? Clin Tech: ? Procedure Note Donjenifferinterpreter, Image - 03/28/[address] [address] XRay Report Signed Patient: Magalie Solis MMR#: [id number] : 6Acct:[id number] Age/Sex: 78 / FADM Date: 03/28/24 Loc: HO.ED Attending Dr: Ordering Physician: Elzbieta Franz Date of Service: 03/28/24 Procedure(s): XR knee RT 4V Accession Number(s): [id number] cc: Carmine Patel MD; Elzbieta Franz EXAMINATION: [...] in OV> 03/28/24 1208 DD/ 1151 TD/TT: Clin Tech: [facility] External Provider IMG XR PROCEDURES Final Result documented in this encounter Visit Diagnoses Diagnosis Acute right ankle pain- Primary documented in this encounter Additional Health Concerns Assessment Noted Time PHQ-9 Depression Total Score: 0 10/09/19 23 11:12 AM EST documented as of this encounter Care Teams Admitting Clerk Relationship Specialty Start Date End Date Carmine Patel MD [address] [place] [address] PCP - General Internal Medicine 11/16/15 07/15/24 Bárbara Rader MD [address] [place] [address] PCP - General Internal Medicine 07/16/24 Luke Gayle PharmD [address] [place] [address] Pharmacist Internal Medicine 09/04/22 [facility] 07/10/24 documented as of this encounter
--- OUTSIDE RECORDS SUMMARY | 2024-11-12 14:50 | XMS_ITS | Encounter Summary ---
Author Organization [employer] Address [address] [facility] 7t [place] [address] Care Team Providers Care Shape Brick Molder Name Role Phone Carmine Patel MD Primary Care Provider [phone]- [phone] Luke Gayle PharmD Unavailable Unavail able Bárbara Rader MD Primary Care Provide r Encounter Details Date Type Department Care Team (Late st Contact Info) Description 06/11/2024 Orders Only [facility] MED & PEDS [address] [place], [place] [phone] Carmine Patel MD [address] [place], [place] [phone] Pruritus (Primary Dx) Social History Tobacco Use [...] Description 11/25/2024 9:00 AM EDT Office Visit [facility] MEDICINE [address] [place] [address] Bárbara Rader MD [address] [place] [address] documented as of this encounter Goals Goal [...] documented as of this encounter Care Teams Shape Brick Molder Relationship Specialty Start Date End Date Carmine Patel MD [address] [place] [address] PCP - General Internal Medicine 11/16/15 07/15/24 Bárbara Rader MD [address] [place] [address] PCP - General Internal Medicine 07/16/24 Luke Gayle PharmD [address] [place] [address] Pharmacist Internal Medicine 09/04/22 [facility] 07/10/24 documented as of this encounter
--- OUTSIDE RECORDS SUMMARY | 2024-11-12 14:50 | XMS_ITS | Continuity of Care Document ---
Author Organization [employer] [facility], [place] [facility] - [facility] Address [address] [place] [phone] Care Team Providers Care Warehouse Man Name Role Phone HIM [facility] OTHER [facility] OTHER Assessment No assessment recorded. Plan of Treatment Reminders Order Date Submit Date Provider Last Modified By Organization Details Last Modified Time Details Appointments None recorded. Lab urinalysis , dipstick 2024 025 [email or web address] [facility], [address] [place] [address], [phone], 16:56:12 BMP, serum or plasma 2024 025 [email or web address] [facility], [address] [place] [address], [phone], 16:56:12 culture, urine 2024 025 AFSHIN [facility] (Centralized Electronic Ordering - All Locations), Patient Can Go To The Location Of Their Choice, [id number] 10:05:34 Referral None recorded. Procedures None recorded. Surgeries None recorded. Imaging None recorded. Medication Orders None recorded. Patient TargetsNo targets recorded. Patient InstructionsNo instructions recorded. Reason for Referral None Reported. Results Created Date Observation Date Name Description Value Unit Range Abnormal Flag Note LastModifiedBy Organization Detail LastModifiedTime 10/03/1910/03/2024 abraham rocar diogr am No observ ation record ed. [facility] [address], [address], 10/03/2024 18:07:20 11/11/19 25 11/12/2024 abraham rocar diogr am No observ ation record ed. [facility]or[facility] [address] [place] [address], [place], [address], 11/12/2024 08:13:36 Result Notes None recorded. Medical Equipment None Reported. Allergies Allergen ID Allergen Name Allergen Category Reaction Reaction Severity Criticality Documentation Date Start Date Code Code System Note Provider Name and Address Organization Details Recorded Time 56796 lisinopri l medicatio n Not available Not available Not available 10/03/2024 41728 RxNorm Not Available [facility] - production 14:54:18 [...] /min 100 % 100 % 2 L/min 220801 g 160.02 cm 98.7 [degF] 194 mm[Hg] [...] SNOMED-CT Code Diagnosis ICD10 Code Diagnosis Note [id number] KAMRYN GERONIMO MD Main [facility] [address] [place] [phone] 10/03/2024 16:28:44 10/03/2024 22:24:33 Contusion of orbital tissue of right eye [id number] S05.11XA Evaluation in the field was performed by my manager meat colleague, as noted above, I provided real-time direction and supervisio n for this visit. Mosotho interprete r was used to communicat e with the patient since no one else was at home.The evaluation revealed a 79-year-ol d female with a past medical history of Coronary Artery Disease, Hypertensi on, COPD on home oxygen, Sleep Apnea (uses CPAP at night), Diabetes Mellitus Type 2, and a history of a leg fracture approximat malak 5 months ago, s/p a fall on [...] room air. Low-grade temperatur e, but the manager meat reports that the room is very warm.Exam: Small bruising and swelling under the right eye and temporal area, with no periorbita l ecchymosis ( raccoon eyes ). No tenderness to palpation over the affected area or the bridge of the nose. Normal eye movement with no reported pain. The manager meat reports rhonchi on lung examinatio n. No [...] exac erbation of chronic obstructive pulmonary disease 521713153 J44.1 Patient denies shortness of breath, cough, or upper respirator y infection symptoms. The manager meat reported rhonchi on lung examinatio n. On [...] the first dose administer ed by the manager meat. -Due to the lack of wheezing, her stable oxygen saturation on chronic oxygen, and her history of diabetes requiring insulin, the decision was made not to start Prednisone to avoid hyperglyce daniela.-Red flags were discussed with the patient. [id number] DA MITCHELL MD Main [facility] [address] [place] [phone] 10/16/2024 20:52:29 10/21/2024 15:57:41 Headache 24955256 R51.9 Pain in left arm 7114374 00 M79.602 13438 Mar Jiménez MD Main [facility] [address] [place] [phone] 10/18/2024 15:45:59 10/21/2024 16:36:29 Altered mental status 328818986 R41.82 Evaluation in the field was performed by my manager meat colleague, as noted above, I provided real-time direction and supervisio n for this visit. 79 yo F PMHx HTN, CAD, T2DM, COPD on 2L home O2 p/w ongoing ANGELO, body aches for which she was seen yesterday by [facility]. Repeat visit requested by son as pt awoke this AM and felt confused, spontaneou sly resolved. Triage note reports dizziness however pt denies this. ANGELO resolved. Endorsed urinary frequency without dysuria, fevers, hematuria. On manager meat eval VS wnl, exam wnl including A+O [...] endorsed ongoing L shoulder/a rm pain. On manager meat exam not swelling or deformity, rotator cuff [...] Elizondo Member ID Guarantor Name 10/18/2024 1 [facility] - DOS ON OR AFTER 2022 - DUAL ELIGIBLE - NURSING HOME OPTIONS AND ONE CARE (MEDICARE REPLACEMENT/ADV ANTAGE - HMO) Magalie Stein [id number] Magalie Stein Notes Date Note Type Note [...] - 14:00 Allergies Reviewed at 10/18/2024 - :00 Comments: Daycare Teacher verified the member's name//address and phone number. [...] s/s and seek emergency treatment if needed. Nnp Organization Information for Efrain Oakley Business Legal Name: [employer]? Address: [address] [place] [address], Labor Economics Professor: Too Welch MD CLIA No.: [id number] Nnp POC Test Results from [employer]f[facility] Oakley Urine Dipstick (16:02:19) Urine leukocytes: 70+ PORSCHE Urine nitrites: - NIT Urine urobilinogen: 0.2-3.5 URO Urine protein: 15+-0.15 PRO Urine pH: 7.0 pH Urine blood: - BLO Urine specific gravity: 1.010 SG Urine ketones: 5+-0.5 KET Urine bilirubin: - RICO Urine glucose: - GLU ................... ................... ................... ................... ................... ................... ................... ........ Nnp Note From Efrain Oakley: PINA makes pt contact. She is seated in a chair in her living room and she turns and greets [facility]. She is generally well appearing, wearing a NC, and making good eye contact. No stridor or sonorous respirations are heard, no facial droop or one-sided weakness are observed, and she is not bleeding anywhere. Pt is Mosotho-speaking only, so car supplier services via cell phone are attempted. Pt has difficulty hearing and understanding the car supplier, so she calls her son on [employer] and he provides hx and translation services. [...] She consents to evaluation and treatment today. [facility] obtains vital signs and pt is assessed. Lung sounds are clear and nothing remarkable is noted upon physical exam. Urine sample is obtained via clean catch for culture and dip stick analysis. [facility] contacts [facility] and discusses the above. [facility] orders urine culture and a bmp. [facility] is unable to gain IV access for bmp. [facility] gives instructions for family to take pt to the ED if her confusion persists and decision about medication for possible UTI will be made after culture returns. Pt and family thank [facility] for coming. [facility] is clear. Report completed by WINSTON Oakley [id number]. [facility] Lab Orders: urinalysis, dipstick: Performed BMP, serum or plasma: Not Performed Comment: Unable to obtain adequate sample amount. ................... ................... ................... ................... ................... ................... ................... ........ [facility] Consulted: Mar Jiménez ................... ................... ................... ................... ................... ................... ................... ........ Disposition: Fulfilled Mar Jiménez MD [address] [facility],[address], [place], [address], [employer] 10/18/2024 21:29:19 OBGyn Episode No OBEpisode recorded.
--- OUTSIDE RECORDS SUMMARY | 2024-11-12 14:50 | XMS_ITS | Clinical Summary ---
Author Organization [facility] Address [address] [place] [address] Phone Care Team Providers Care Glass Cutting Machine Operator Name Role Phone Carmine Patel [...] every morning 04/04/2023 Active ergocalciferol 1.25 MG (34438 UT) capsule 50,000 Units 1 (one) time [...] Visit [facility] [address] [place]KAYLA RODRIGUEZ [phone] Rubin Cordero MD [address] [facility] [address] [place] [address] Health Maintenance Due Date Last [...] patient's age to complete this topic Insurance [facility] ([id number]) [facility] ([id number]) ZUHAIR ROBLERO [id number] Care Teams Glass Cutting Machine Operator Relationship Specialty Start Date End Date Carmine Patel MD PCP - General Internal Medicine 05/02/21
--- OUTSIDE RECORDS SUMMARY | 2024-11-12 14:50 | XMS_ITS | Encounter Summary ---
Author Organization [employer] Address [address] [facility] [address] 7[address] [place] [address] Care Team Providers Care Band Nailer Name Role Phone Luke Gayle PharmD Unavailable Unavail able Bárbara Rader MD Primary Care Provide r Reason for Visit * Reason Onset Date Comments Durable Medical Equipment 10/03/2024 Encounter Details Date Type Department Care Team ([facility] st Contact Info) Description 10/03/2024 Telephone [facility] MEDICINE [address] [place], [place] [phone] Bárbara Rader MD [address] [place], [place] [phone] Durable Medical Equipment Social History Tobacco Use [...] encounter Miscellaneous Notes * Telephone Encounter - Wendy Somers - 11/07/2024 2:31 PM EST Call was made to son for clarification of requested DME. Son stated that she is in need of a new power recliner. The one that she has is about 9 years old and is no longer working. DME RX for Recliner generated and placed on providers desk for signature. * Telephone Encounter - Paulette Lee - 10/03/2024 2:23 PM EST Tc from pt son requesting standing sofa. [phone] luxembourgish documented in this encounter Plan of Treatment Upcoming Encounters Date Type Department Care Team (Late st Contact Info) Description 11/25/2024 9:00 AM EDT Office Visit [facility] MEDICINE [address] [place] [address] Bárbara Rader MD [address] [place] [address] documented as of this encounter Goals Goal [...] documented as of this encounter Care Teams Band Nailer Relationship Specialty Start Date End Date Bárbara Rader MD [address] [place] [address] PCP - General Internal Medicine 07/16/24 Luke Gayle, PharmD Pharmacist Internal Medicine 09/04/22 [facility] 07/10/24 documented as of this encounter
--- OUTSIDE RECORDS SUMMARY | 2024-11-12 14:50 | XMS_ITS | Encounter Summary ---
Author Organization [employer] Address [address] [facility] [address] 7[address] [place] [address] Care Team Providers Care Curtain Roller Assembler Name Role Phone Luke Gayle PharmD Unavailable Unavail able Bárbara Rader MD Primary Care Provide r Reason for Visit * Reason Onset Date Comments Appointment Request 09/15/2024 Encounter Details Date Type Department Care Team ([facility] st Contact Info) Description 09/15/2024 Telephone [facility] MEDICINE [address] [place], [place] [phone] Bárbara Rader MD [address] [place], [place] [phone] Appointment Request Social History Tobacco Use Types [...] Visit [facility] MEDICINE [address] [place] [address] Bárbara Rader MD [address] [place] [address] documented as of this encounter Goals Goal [...] documented as of this encounter Care Teams Curtain Roller Assembler Relationship Specialty Start Date End Date Bárbara Rader MD [address] [place] [address] PCP - General Internal Medicine 07/16/24 Luke Gayle PharmD Pharmacist Internal Medicine 09/04/22 [facility] 07/10/24 documented as of this encounter
--- OUTSIDE RECORDS SUMMARY | 2024-11-12 14:50 | XMS_ITS | Continuity of Care Document ---
Author Organization [employer] [facility], [place] in - [facility] Address [address] [place] [phone] Care Team Providers Care Escrow Processor Name Role Phone HIM CCA OTHER [facility] OTHER [phone] Assessment Encounter Date Assessment Date Assessment LastModified by Organization Details LastModified Time 11/11/2024 11/11/2024 I provided real -time medical direction via phone for this encounter, and was available for additional phone based assistance as needed. I have reviewed and agree with the Assessment and Plan as documented by the [employer]. We discussed the diagnostic uncertainty of home visits and the risk associated with this. In this case the patient and I felt this to be an acceptable and reasonable amount of risk given the benefit of avoiding an ED visit. The patient given the opportunity to ask questions. Advised if develops CP/severe SOB/turning blue/ severe abd pain/uncontrolle d n/v/d or black/bloody emesis or stool/ AMS/ syncope/ hi fever to call 911- verbalized understanding of instruction [email or web address] Not available 11/11/2024 11:09:06 Plan of Treatment Reminders Order Date Submit Date Provider Last Modified By Organization Details Last Modified Time Details Appointments None recorded. Lab BMP, serum or plasma 2024 025 [email or web address] [facility], [address] [place] [address], [phone], 5 08:12:40 rapid flu (A+B) 2024 025 [email or web address] 0 [facility], [address] [place] [address], [phone], 5 17:59:22 rapid SARS CoV 2 Ag, QL IA, respiratory specimen 2024 025 [email or web address] 0 [facility], [address] [place] [address], [phone], 5 17:59:22 Referral None recorded. Procedures None recorded. Surgeries None recorded. Imaging electrocard iogram 2024 025 [email or web address] 0 [facility], [address] [place] [address], [id number], 5 17:59:23 Medication Orders ondansetron HCl (PF) 4 mg/2 mL injection solution 2024 025 [email or web address] 0 [facility], [address] [place] [address], [id number], 17:59:21 lactated Ringers intravenous solution [email or web address] [facility], [address] [place] [address], [id number], 5 17:59:21 ondansetron 4 mg disintegrat ing tablet 2024 025 [email or web address] 0 [facility], [address] [place] [address], [id number], 5 17:59:21 Patient TargetsNo targets recorded. Patient InstructionsNo instructions recorded. Reason for Referral None Reported. Results Created Date Observation Date Name Description Value Unit Range Abnormal Flag Note LastModifiedBy Organization Detail LastModifiedTime 11/11/1911/11/2024 rapid SARS CoV 2 Ag, QL IA, respi rator y speci men rapid SARS CoV 2 Ag, QL IA, respiratory specimen negati ve Not Available Main - [facility] ed [address] [place] [address], [id number], 11/11/2024 11:05:36 11/11/19 25 11/11/2024 rapid flu (A+B) Flu negati ve Not Available [facility] - [facility] ed [address] [place] [address], [phone], 11/11/2024 11:05:35 11/11/19 25 11/12/2024 abraham kim am No observ ation record ed. [email or web address] - [facility] [address] [place] [address], [phone], 11/12/2024 08:13:36 Result Notes None recorded. Procedures Surgical History None recorded. Imaging Results Imaging Date Name Status LastModified by Organization Details LastModified Time 11/12/2024 electrocardiogram completed [email or web address] - [facility] [address] [place] [address], [id number], 11/12/2024 08:13:36 Procedure Notes None recorded. Medical Equipment None Reported. Allergies Allergen ID Allergen Name Allergen Category Reaction Reaction Severity Criticality Documentation Date Start Date Code Code System Note Provider Name and Address Organization Details Recorded Time 32471 lisinopri l medicatio n Not available Not available Not available 10/03/2024 43041 RxNorm Not Available [facility] - production 14:54:18 [...] oxygen flow rate Body weight Body height Respiratory rate Heart rate Systolic blood pressure Diastolic blood pressure Provider Name and Address Organization Details Last Updated DateTime 5 98.4 [degF] 95 % 95 % 2 L/min 136851. 04 g 160.02 cm 16 /min 80 /min 116 mm[Hg] 74 mm[Hg] Not Available [facility] 11:01:38 Social History None recorded. Functional Status None recorded. Mental Status None recorded. Family History Nothing Reported. Medical History No medical history recorded. Gynecological HistoryNo gynecological history recorded. Obstetrics History GPAL:G 0 P 0 0 0 0 Past Encounters Encounter ID Performer Location Encounter Start Date Encounter Closed Date Diagnosis/Indication Diagnosis SNOMED-CT Code Diagnosis ICD10 Code Diagnosis Note [id number] DA MITCHELL MD [address] [address] 10/16/2024 20:52:29 10/21/2024 15:57:41 Headache 17568806 R51.9 Pain in left arm 9224097 00 M79.602 [id number] Mar Jiménez MD [address] [address] 10/18/2024 15:45:59 10/21/2024 16:36:29 Altered mental status 427050239 R41.82 Evaluation in the field was performed by my ticket taker ferryboat colleague, as noted above, I provided real-time direction and supervisio n for this visit. 79 yo F PMHx HTN, CAD, T2DM, COPD on 2L home O2 p/w ongoing ANGELO, body aches for which she was seen yesterday by [facility]. Repeat visit requested by son as pt awoke this AM and felt confused, spontaneou sly resolved. Triage note reports dizziness however pt denies this. ANGELO resolved. Endorsed urinary frequency without dysuria, fevers, hematuria. On ticket taker ferryboat eval VS wnl, exam wnl including A+O [...] endorsed ongoing L shoulder/a rm pain. On ticket taker ferryboat exam not swelling or deformity, rotator cuff [...] shortness of breath, cough, chest pain, fever. [id number] Sayra Arevalo MD Main - [facility] [address] [place] [phone] 10/21/2024 15:55:58 10/21/2024 17:31:04 Urinary symptoms 391793367 R39.9 [id number] Luz Love MD Main - [address] [address] 11/11/2024 11:01:33 11/12/2024 12:20:21 Nausea, vomiting and diarrhea 7523781 R11.2 R19.7 labs not concerning / given anti emetic and lo dose fluid due to hx chf-nausea resolved after treatment Rx to pharmacy Because patient has a history of CAD/ DM with nausea vomiting and epigastric pain I ordered/si gned for an EKG during the visit. WE did discuss it with the patient during the visit there is no glaring ischemia but patient made aware that full cardiac workup is beyond the scope of this service, documented discussed with the patient after visit fulfilledI feel her signs and symptoms are more due to a gastrointe stinal issue. Advise close follow-up with her PCP and if she develops any worsening of symptoms or any chest pain shortness of breath(see red flags above) she is aware to go to the ER. Clear liquids x 24 hrs then adv slowly to BRAT diet - Health Concerns Section Related Observation LastModified by Organization Detai ls LastModified Time None Recorded Concern Status LastModified by Organization Details LastModified Time None Recorded Payers Encounter Date Sequence Insurance Name Policy Number Policy Elizondo Covered Member ID Elizondo Member ID Guarantor Name 11/11/[address] [facility] - DOS ON OR AFTER 2022 - DUAL ELIGIBLE - [facility] OPTIONS AND ONE CARE (MEDICARE REPLACEMENT/ADV ANTAGE - HMO) Magalie Stein [id number] Magalie Stein Notes Date Note Type Note Provider Name and Address Organization Details Recorded Time 11/11/2024 text/html [facility] Nurse Triage Notes (Maame Garay): Reason For Request: Patient woke up vomiting, and headache, stomach pain. Patient Reports: Diarrhea ? no blood in stool; Nausea with or without vomiting; Inability to tolerate foods, fluids or daily medicationsDenies: Sharp focal or diffuse abdominal pain Vomiting blood/coffee ground material Bloating, jaundice new onset with pain Nausea and vomiting greater than 2 hours with abdominal pain Tearing pain that radiates to back Food Impaction Vague abdominal pain greater than 24 hours Constipation Chief Complaints: Nausea / VomitingPMH: Coronary Artery Disease, Hypertension, COPD/Asthma, Diabetes Mellitus Type 2, Urinary Tract Infections (UTI), Chronic Kidney DiseasePMH Reviewed at 11/11/2024 - 10:14Allergies Reviewed at 11/11/2024 - 10:14Comments: Patient woke up this morning with vomiting, abdominal pain and headache. Vomited 4x's today. Reporting upper mid abdominal pain. Non-radiating. Diarrhea x1. Denies fever, or dizziness/lighthea dedness. Education provided on the response time and the member was advised to monitor reported s/s and seek emergency treatment if needed. [employer] Organization Information for Guan[employer]ela RENEEAaronhelio Legal Name: [facility] TransportationAddr ess: [address], [place] [address], USMedical Director: Geo Galvin [facility] No.: [id number] [employer] POC Test Results from Guanak[facility] Vela RENEE [facility] (57:11)pH: 7.38 pH unitspCO2: 61.2 mmHgpO2: 37.6 mmHgNa: 141 mmol/LK: 4.3 mmol/LiCa: 1.16 mmol/LCl: 96 mmol/LTCO2: 35.7 mEq/LHct: 36 %Hb: 12.2 g/dLGlu: 121 mg/dLLac: 1.6 mmol/LCr: 0.58 mg/dLBUN: 14 mg/dLA mmol/LHCO3: 36.5 mmol/L Rapid COVID antigen (57:12)COVID: - Rapid influenza antigen (:13)Flu: - EKG (11:16:39) EKG test performed. Attachments uploaded as part of this test result can be found under Documents section. .................. .................. .................. .................. .................. .................. .................. ............... [employer] Note From Guanakito Vela: This 79-year-old female with a history including but not limited to CAD, COPD, CKD, DM type II, HTN, GERD requested a visit today to address nausea, vomiting and diarrhea since last night. Patient states in the last 12 hours she has vomited four times and had diarrhea twice. Patient denies any black or bloody stools or emesis. Patient reports that she is still having nausea and mild epigastric discomfort. Patient denies any associated chest pain, shortness of breath, dyspnea on exertion, urinary symptoms, headaches, fevers. Patient does not believe she ate anything that may have caused this. Patient presents awake and alert, in no acute distress and speaking full sentences. Her vital signs are reasonably stable and she is afebrile. Nonfocal neurological exam. Lungs are clear throughout auscultation. Epigastric area is tender to palpation, abdomen is otherwise benign. +1 to +2 bilateral lower extremity edema which is baseline for patient. EKG is uploaded, sinus with PVCs. Unremarkable POC labs are uploaded. Rapid COVID and flu testing are both negative. I treated this patient with lactated ringers 500 mL IV and ondansetron 4 mg IVP which resolve the nausea. We discussed the diagnostic uncertainty of home visits and the risk associated with this. In this case, the patient and I felt this to be an acceptable and reasonable amount of risk given the benefit of avoiding an ED visit. I provided instructions on the patient's prescription. I recommend he drink clear liquids for the rest of the day and I provided education on beginning the BRAT diet tomorrow morning as tolerated. I recommend she follow up with her primary care physician if symptoms persist and present to the emergency department for any new or worsening severe symptoms such as chest pain, severe shortness of breath, black/bloody stools or emesis, high fever, altered mental status. The patient was given the opportunity to ask questions and is agreeable to this plan. [facility] Lab Orders: BMP, serum or plasma: Performed rapid flu (A+B): Performed rapid SARS CoV 2 Ag, QL IA, respiratory specimen: Performed [facility] Medication Orders: ondansetron HCl (PF) 4 mg/2 mL injection solution: Administered lactated Ringers intravenous solution: Administered .................. .................. .................. .................. .................. .................. .................. ............... [facility] Consulted: Luz Love .................. .................. .................. .................. .................. .................. .................. ............... Disposition: Fulfilled SEGMD: As above: Patient denies any known sick contacts, fever, chills, diaphoresis/dizzin ess or syncope. Luz Love MD [address] [facility],[address], [place], [address], [employer] 11/12/2024 13:27:51 OBGyn Episode No OBEpisode recorded.
--- OUTSIDE RECORDS SUMMARY | 2024-11-12 14:50 | XMS_ITS | Encounter Summary ---
Author Organization [employer] Address [address] [place] [address] Care Team Providers Care Embedded Nurse Name Role Phone Carmine Patel MD Primary Care Provider [phone]- [phone] Luke Gayle PharmD Unavailable Unavail able Bárbara Rader MD Primary Care Provide r Encounter Details Date Type Department Care Team (Late st Contact Info) Description 02/14/2024 Orders Only [facility] & PEDS [address] [place], [place] [phone] Carmine Patel MD [address] [place], [place] [phone] Type 2 diabetes mellitus with other specified complication, without long-term current use of insulin ([facility]) (Primary Dx) Social History Tobacco Use Types [...] 9:00 AM EDT Office Visit [facility] MEDICINE [address] [place] [address] Bárbara Rader MD [address] [place] [address] documented as of this encounter Goals Goal [...] EDT Narrative 03/31/2024 9:51 AM EDT ? [facility] ?[address] ?[place] [address] ?XRay Report ? Signed ? Patient: Calos Civico,Patricia ?MR#: [id number] ?? [id number] ? : 1945 ?Acct:[id number] ? Age/Sex: 78 / F ?ADM Date: 03/13/24 ? Loc: HO.XRAY ? Attending Dr: Ofelia Ly RETAIL SUPPORT ASSOCIATE ? Ordering Physician: Saleem Young PA-C ?? Date of Service: 03/13/24 ?? Procedure(s): XR ankle RT min 3V ?? Accession Number(s): [id number] ? cc: Carmine Patel MD; Saleem Young [...] 0949 ? DD/ 0946 ? TD/TT: ? Chief Marketing Officer: ? Procedure Note Luhter, Image - 03/31/[address] [address] XRay Report Signed Patient: Magalie Solis MMR#: [id number] : 6Acct:[id number] Age/Sex: 78 / FADM Date: 03/13/24 Loc: LIVIER Attending Dr: Ofelia Ly NP Ordering Physician: Saleem Young PA-C Date of Service: 03/13/24 Procedure(s): XR ankle RT min 3V Accession Number(s): [id number] cc: Carmine Patel MD; Saleem Young PA-C [...] MD in OV> 03/31/2449 DD/ 5 TD/TT: Chief Marketing Officer: [facility] External Provider IMG XR PROCEDURES Final Result * BI Mammogram Additional Views Right (03/12/2024 2:15 PM EDT) Anatomical Region Laterality Modality Breast Right Mammography 03/12/2024 2:15 PM EDT Narrative 03/12/2024 3:08 PM EDT ? [facility] [place] ? [address] ?[place] [address] ? Mammography Report ? Signed ? Patient: Magalie Live ?MR#: [id number] ?? 8 ? : 1945 ?Acct:[id number] ? Age/Sex: 78 / F ?ADM Date: 03/12/24 ? Loc: HO.MAMMO ? Attending Dr: Carmine Patel MD ? Ordering Physician: Carmine Patel MD ?Results: 2 ?? Benign Findings ? Date of Service: 03/12/24 ?Follow Up: 1 Year From Orig ?? inal Mammogram ? Procedure(s): MM added views RT ?? Accession Number(s): [id number] ? cc: Carmine Patel MD ? EXAMINATION: [...] 1504 ? DD/ 1415 ? TD/TT: ? Chief Marketing Officer: ? Procedure Note Dara Sanchez - 03/12/2024 [facility] [address] [place] [address] Mammography Report Signed Patient: CalosMagalie MMR#: [id number] : 6Acct:[id number] Age/Sex: 78 / FADM Date: 03/12/24 Loc: HO.MAMMO Attending Dr: Carmine Patel MD Ordering Physician: Carmine Patel MDResults: 2 Benign Findings Date of Service: 03/12/24Follow Up: 1 Year From [facility] ina Mammogram Procedure(s): MM added views RT Accession Number(s): [id number] cc: Carmine Patel MD EXAMINATION: MM DIAGNOSTIC [...] in OV> 03/12/24 1504 DD/ 1415 TD/TT: Chief Marketing Officer: us Carmine Patel MD IMG BI PROCEDURES Final Res ult documented in this encounter Visit Diagnoses Diagnosis Type 2 diabetes mellitus with other specified complication, without long-term current use of insulin ([facility])- Primary documented in this encounter Additional Health Concerns Assessment Noted Time PHQ-9 Depression Total Score: 0 10/09/19 23 11:12 AM EST documented as of this encounter Care Teams Embedded Nurse Relationship Specialty Start Date End Date Carmine Patel MD [address] [place] [address] PCP - General Internal Medicine 11/16/15 07/15/24 Bárbara Rader MD [address] [place] [address] PCP - General Internal Medicine 07/16/24 Luke Gayle PharmD [address] [place] [address] Pharmacist Internal Medicine 09/04/22 [facility] 07/10/24 documented as of this encounter
--- OUTSIDE RECORDS SUMMARY | 2024-11-12 14:50 | XMS_ITS | Encounter Summary ---
Author Organization [employer] Address [address] [place] [address] Care Team Providers Care Mule Spinner Name Role Phone Carmine Patel MD Primary Care Provider +1- [phone] Luke Gayle PharmD Unavailable Unavail able Bárbara Rader MD Primary Care Provide r Reason for Visit * Reason Onset Date Comments FYI 05/07/2024 Encounter Details Date Type Department Care Team (Late st Contact Info) Description 05/07/2024 Telephone [facility] MEDICINE [address] [place] [address] Carmine Patel MD [address] [place] [address] FYI Social History Tobacco Use Types Packs/Day [...] any questions you can contact Terence at [phone]. documented in this encounter Plan of Treatment Upcoming Encounters Date Type Department Care Team (Late st Contact Info) Description 11/25/2024 9:00 AM EDT Office Visit [facility]INE [address] [place] [address] Bárbara Rader MD [address] [place] [address] documented as of this encounter Goals Goal [...] documented as of this encounter Care Teams Mule Spinner Relationship Specialty Start Date End Date Carmine Patel MD [address] [place] [address] PCP - General Internal Medicine 11/16/15 07/15/24 Bárbara Rdaer MD [address] [place] [address] PCP - General Internal Medicine 07/16/24 Luke Gayle, PharmD [address] [place] [address] Pharmacist Internal Medicine 09/04/22 [facility] 07/10/24 documented as of this encounter
--- OUTSIDE RECORDS SUMMARY | 2024-11-12 14:50 | XMS_ITS | Encounter Summary ---
Author Organization [employer] Address [address] [facility] 7t [place] [address] Care Team Providers Care Education General Manager Name Role Phone Carmine Patel MD Primary Care Provider +1- [phone] Luke Gayle PharmD Unavailable Unavail able Bárbara Rader MD Primary Care Provide r Reason for Visit * Reason Onset Date Comments FYI 02/15/2024 Encounter Details Date Type Department Care Team ([facility] st Contact Info) Description 02/15/2024 Telephone [facility] MED & PEDS [address] [place], [place] [phone] Carmine Patel MD [address] [place], [place] [phone] FYI Social History Tobacco Use Types Packs/Day [...] - 02/15/2024 3:07 PM EDT Tc from [facility] with Tiffany calling to report pt has been discharged as of today from home PT. documented in this encounter Plan of Treatment Upcoming Encounters Date Type Department Care Team (Late st Contact Info) Description 11/25/2024 9:00 AM EDT Office Visit [facility] [address] [place] [address] Bárbara Rader MD [address] [place] [address] documented as of this encounter Goals Goal [...] documented as of this encounter Care Teams Education General Manager Relationship Specialty Start Date End Date Carmine Patel MD [address] [place] [address] PCP - General Internal Medicine 11/16/15 07/15/24 Bárbara Rader MD [address] [place] [address] PCP - General Internal Medicine 07/16/24 Luke Gayle, Shan [address] [place] [address] Pharmacist Internal Medicine 09/04/22 [facility] 07/10/24 documented as of this encounter
--- OUTSIDE RECORDS SUMMARY | 2024-11-12 14:50 | XMS_ITS | Encounter Summary ---
Author Organization [employer] Address [address] [facility] [address] [facility] [address] [place] [address] Care Team Providers Care Sales Project Manager Name Role Phone Luke Gayle PharmD Unavailable Unavail able Bárbara Rader MD Primary Care Provide r Reason for Visit * Reason Onset Date Comments Nurse Triage 10/16/2024 Encounter Details Date Type Department Care Team ([facility] st Contact Info) Description 10/16/2024 Telephone [facility] MEDICINE [address] [place], [place] [phone] Bárbara Rader MD [address] [place], [place] [phone] Nurse Triage Social History Tobacco Use Types [...] caller accepted this outcome. Contact pt at [phone] (Portuguese) documented in this encounter Plan of Treatment Upcoming Encounters Date Type Department Care Team (Late st Contact Info) Description 11/25/2024 9:00 AM EDT Office Visit [facility] MEDICINE [address] [place] [address] Bárbara Rader MD [address] [place] [address] documented as of this encounter Goals Goal [...] documented as of this encounter Care Teams Sales Project Manager Relationship Specialty Start Date End Date Bárbara Rader MD [address] [place] [address] PCP - General Internal Medicine 07/16/24 Luke Gayle, PharmD Pharmacist Internal Medicine 09/04/22 [facility] 07/10/24 documented as of this encounter
--- OUTSIDE RECORDS SUMMARY | 2024-11-12 14:50 | XMS_ITS | Encounter Summary ---
Author Organization [employer] Address [address] [place] [address] Care Team Providers Care Equipment Associate Name Role Phone Carmine Patel MD Primary Care Provider +1- [phone] Luke Gayle PharmD Unavailable Unavail able Bárbara Rader MD Primary Care Provide r Reason for Visit * Reason Onset Date Comments Call Back Request 02/06/2024 Encounter Details Date Type Department Care Team (Late st Contact Info) Description 02/06/2024 Telephone [facility] MEDICINE [address] [place] [address] Carmine Patel MD [address] [place] [address] Call Back Request Social History Tobacco Use [...] to see if they are ready for potato picker. Advised son on PCP recommendations for [...] and nothing is happening Please contact at [phone] documented in this encounter Plan of Treatment Upcoming Encounters Date Type Department Care Team (Late st Contact Info) Description 11/25/2024 9:00 AM EDT Office Visit [facility] MEDICINE [address] [place] [address] Bárbara Rader MD [address] [place] [address] documented as of this encounter Goals Goal [...] documented as of this encounter Care Teams Equipment Associate Relationship Specialty Start Date End Date Carmine Patel MD [address] [place] [address] PCP - General Internal Medicine 11/16/15 07/15/24 Bárbara Rader MD [address] [place] [address] PCP - General Internal Medicine 07/16/24 Luke Gayle, PharmD [address] [place] [address] Pharmacist Internal Medicine 09/04/22 [facility] 07/10/24 documented as of this encounter
[2024-11-12] MEDS: Lactated Ringers 1,000 ML 999 ML IV (14:56)
[2024-11-12] MEDS: methylPREDNISolone Sod Succ 125 MG/2 ML VIAL IVPUSH (14:58)
[2024-11-12] MEDS: Sodium Bicarbonate 8.4% 50 MEQ/50 ML SYRINGE IVPUSH (15:01)
--- NOTE | 2024-11-12 15:16 | PC.RT ---
Repeat VBG after appox 1.5 hrs on bipap shows improvement however pt still has respiratory acidosis. No changes made to settings at this time. L/S remain tight and diminished, repeat tx given w/ provider at bedside.
[2024-11-12 16:37] LABS: ABG Base Excess 9.4 mmol/L; ABG HCO3 39 mmol/L (22-26); ABG pCO2 93 mmHg (32-45); ABG pH 7.23 (7.35-7.45); ABG pO2 83 mmHg (83-108)
--- NOTE | 2024-11-12 16:56 | PC.RT ---
Repeat ABG drawn, shows decrease in status. pH 7.22 CO2 93. RT increased settings per MD request. 05/02 RR 30. Will repeat blood gas.
[2024-11-12] MEDS: Albuterol Sulfate 7.5 MG, Albuterol/Iprat 2.5/0.5MG 3 ML 3 ML INHALE (17:10)
--- NOTE | 2024-11-12 17:13 | PM.CCN ---
Critical Care Event Note Summary Date of Service: 11/12/24 Code activated: No Narrative: Worsening respiratory acidosis on bipap. Suggest diamox 500mg IV x1 and re-assessment in 1 hour. If not better would require intubation and ventilatory support. Critical Care Time (minutes): 0
[2024-11-12 17:43] LABS: VBG Base Excess 8.7 mmol/L; VBG HCO3 36 mmol/L (22-26); VBG pCO2 63 mmHg; VBG pH 7.35 (7.32-7.43); VBG pO2 79 mmHg
[2024-11-12 17:44] LABS: Venous Blood Gas Refer to POC result
--- NOTE | 2024-11-12 17:45 | PC.NURSE ---
RT at bedside to temporarily take patient off BIPAP to eat. Ok'ed by MD. Patient alert to self and hospital but still remains fatigued. Family at bedside to assist with meal.
[2024-11-12] MEDS: acetaZOLAMIDE sodium 500 MG VIAL IVPUSH (17:49)
--- NOTE | 2024-11-12 17:53 | PC.RT ---
1739 VBG received and shows improvement. pH 7.35 CO2 63. Pt taken off bipap per MD request and placed on 2L NC. Will continue to monitor. SPO2 goal 88-92%.
[2024-11-12 17:55] LABS: Anion Gap 10 (12-20); Blood Urea Nitrogen 17 mg/dL (9-16); Carbon Dioxide 32 mmol/L (22-29); Chloride 102 mmol/L (96-108); Creatinine Clr Calc Pharmacy 94.9; Estimated Glomerular Filt Rate > 60; Glucose Random 113 mg/dL (60-115); Potassium 4.9 mmol/L (3.3-5.1); Sodium 139 mmol/L (135-145)
--- NOTE | 2024-11-12 19:19 | PM.IMHP ---
History of Present Illness Date of Service: 11/12/24 Attending physician on admission: Kassy Black Chief Complaint: Weakness, lethargy Pt is a 79-year-old female with a PMH significant for chronic hypoxic and hypercapnic respiratory failure /obesity hypoventilation syndrome on home 2L O2, pulmonary hypertension, HFpEF, insulin-dependent type 2 diabetes, HTN, HLD, GERD, and NICO on CPAP who presents to the ED with? lethargy and weakness since this morning. Pt is currently somnolent but arousable, wearing BiPAP. is alert and oriented and following commands, but unable to provide meaningful HPI which is instead obtained from family who was at bedside as well as chart and provider review. This morning pt was noted by family to be lethargic, not opening her eyes , following commands, or responding to questions. Pt was otherwise in her normal state of health yesterday without any reported nausea, vomiting, abdominal pain, SOB, cough, fever, or chills. Pt known to be noncompliant with CPAP at night. Often will take off her CPAP mask during the middle of the night. And according to has not been wearing CPAP at all for the past 2 nights. Pt was initially obtunded at time of arrival and in significant respiratory acidosis. pt has significantly improved with rescue BiPAP in the ED and now alert and oriented. Family reports was able to carry on a conversation with her a short time ago and she ate a sandwich. Family also note this is the fourth time she has had similar symptoms due to respiratory distress. 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 In the ED pt was febrile at 100.6, tachypneic up to 30, and hypotensive as low as 91/49. Pt initially arrived on 3 L NC, but was transitioned to BiPAP due to respiratory acidosis. Labs were significant for leukopenia of 4.2, H&H 10.2/34.1, bicarb 35, and BNP elevated at 237. No significant electrolyte abnormalities. Renal function baseline. Hepatic function WNL. Ammonia WNL. initial VBG with pH 7.18, pCO2 105, and bicarb 40; repeat with improvement to pH 7.35, pCO2 63, and bicarb 36. UA negative for UTI. Tested negative for flu, COVID, RSV. CXR showed hepatomegaly but no evidence of acute cardiopulmonary process. CT of head negative for acute intracranial abnormality.?EKG demonstrated Normal sinus rhythm without evidence of significant ST elevations or depressions. during ED stay pt became hypotensive and ICU was contacted. Family, however wish to hold on intubation, and supervisor livestock yard recommended administration of Diamox and continuing BiPAP support for the night. Pt was treated with IVF, ceftriaxone, doxycycline, acetaminophen, DuoNebs, Solu-Medrol, bicarb, and acetazolamide. Pt will be admitted to the hospital for treatment and further evaluation of acute on chronic hypoxic and hypercarbic respiratory failure secondary to noncompliance with home CPAP. Review of Systems Review of Systems: Negative except for that which is stated in the HPI. [facility] Medical History Unspecified urinary incontinence NICO (obstructive sleep apnea) CHF (congestive heart failure) 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 indication of end stage renal disease in patient 6 to 64 years of age Lymphadenopathy Abdominal pain Bursitis of right hip Osteoarthritis of right hip Restrictive ventilatory defect Dyspnea on exertion Varicose veins of right lower extremity with inflammation Pneumonitis Pulmonary hypertension Hypertensive cardiovascular disease Acute hypoxic on chronic hypercapnic respiratory failure Acute on chronic respiratory failure with hypoxemia Obesity hypoventilation syndrome GERD (gastroesophageal reflux disease) Hypertension Diabetes mellitus COPD (chronic obstructive pulmonary disease) Family History Mother Diabetes Surgical History S/P laparoscopic cholecystectomy (07/14/21) Social History Household Members: Unknown / Unable to assess Household Members Other:: cousin Housing: Unknown / Unable to assess Do you presently have visiting nurse or other home services: No Unable to assess alcohol history related to: Unknown Alcohol intake: never Patient Tobacco Use Status: Former Tobacco user Tobacco use type: Cigarette Years Smoked: 20 Use of substances other than those prescribed or required for medical reasons: Unknown Advance Directives: Yes Advance Directives on File: Yes Advance Directives Date on File: 02/22/22 Do you have a plan to hurt others: No Plan service: No Current occupational status: unemployed and disabled Meds Allergies Allergy/AdvReac Type Severity Reaction Status Date / Time No Known Allergies Allergy Verified 11/12/24 11:13 [No Known Allergies*] Active Medications: Current Medications Acetaminophen (Acetaminophen 325 Mg Tablet) 650 mg PO Q6H PRN PRN Reason: Pain, Mild 1-3,fever,headache Calcium Carbonate (Calcium Carbonate 750 Mg Tab.Chew) 750 mg PO Q4H PRN PRN Reason: Heartburn Dextrose (Dextrose 50 % 25 Gm/50 Ml Syringe) 25 gm IVPUSH Q15M PRN; Protocol PRN Reason: per Hypoglycemia Standing Ord. Enoxaparin Sodium (Enoxaparin Sodium 40 Mg/0.4 Ml Syringe) 40 mg SUBCUT Q24H TIMOTHY Glucose (Glucose Gel 15 Gm Gel..Gram.) 15 gm PO Q15M PRN; Protocol PRN Reason: per Hypoglycemia Standing Ord. Insulin Human Lispro (Insulin Lispro 100 Unit/Ml 3 Ml Vial) 0 unit SUBCUT QIDACHS TIMOTHY; Protocol Magnesium Hydroxide (Milk Of Magnesia 30 Ml Oral.Susp) 30 ml PO DAILY PRN PRN Reason: Constipation Melatonin (Melatonin 3 Mg Tablet) 6 mg PO BEDTIME PRN PRN Reason: Insomnia Ondansetron HCl (Ondansetron Hcl 4 Mg/2 Ml Vial) 4 mg IVPUSH Q8H PRN PRN Reason: Nausea and Vomiting Sodium Chloride (0.9 % Sodium Chloride Flush 3 Ml Syringe) 3 ml IVFLUSH QSHIFT [facility] Home Medications ?Medication ?Instructions ?Recorded ?Confirmed ?Last Taken ?Type lancets 33 gauge (TRUEplus Lancets) #100 ea 09/20/21 09/23/24 02/19/22 History sitagliptin phos 50 mg-metformin 1 tab PO DAILY 02/20/22 11/12/24 11/11/24 History ER 1,000 mg tablet,extend rel 24h mp (Janumet XR) furosemide 40 mg tablet 40 mg PO DAILY 05/11/23 11/12/24 11/11/24 History albuterol sulfate 90 mcg/actuation 2 puff inhalation Q6H PRN Wheezing 11/02/23 11/12/24 11/11/24 History aerosol inhaler ergocalciferol (vitamin D2) 1,250 1,250 mcg PO MO 11/02/23 11/12/24 11/10/24 History mcg (50,000 unit) capsule famotidine 20 mg tablet 20 mg PO BID 11/02/23 11/12/24 11/11/24 History pravastatin 40 mg tablet 40 mg PO BEDTIME 11/02/23 11/12/24 11/11/24 History albuterol sulfate 2.5 mg/3 mL 2.5 mg inhalation Q6H PRN 05/04/24 11/12/24 Unknown History (0.083 %) solution for nebulization Shortness Of Breath Or Wheezing pantoprazole 20 mg tablet,delayed 20 mg PO DAILY@0630 05/04/24 11/12/24 11/11/24 History release insulin lispro 100 unit/mL 5 unit subcut DAILY 08/06/24 11/12/24 11/11/24 History subcutaneous pen (Humalog KwikPen (U-100) Insulin) Physical Exam Vital Signs and Narrative: Vital Signs: Last Vital Signs Temp 99.1 F 11/12/24 17:40 Pulse 78 11/12/24 17:40 Resp 20 11/12/24 19:05 BP 114/38 L 11/12/24 17:40 Pulse Ox 97 11/12/24 17:40 O2 Del Method Room Air 11/12/24 17:40 O2 Flow Rate 4 11/12/24 12:23 Oxygen Flow Rate 3 11/12/24 11:10 BMI result Body Mass Index 41.8 General: AOx3, somnolent but arousable. Answering questions and following commands. Resp: CTA bilaterally, on BiPAP. CVS: S1, S2, RRR GI: +BS, NT, no distention Skin: Warm, dry Neuro: Cranial nerves II-XII grossly intact bilaterally. Motor grossly intact bilaterally Extremities: No edema Psych: Appropriate affect Results Labs 11/12/24 11:35 11/12/24 17:34 Labs: Laboratory Results - last 24 hr 11/12/24 11/12/24 11/12/24 11:18 11:35 11:44 MCV 100.3 H MCH 30.0 MCHC 29.9 L RDW 12.2 Plt Count 137 L MPV 10.3 Immature Gran % (Auto) 0.5 H Neut % (Auto) 67.5 Lymph % (Auto) 20.7 [place] % (Auto) 10.1 Eos % (Auto) 0.7 Baso % (Auto) 0.5 Lymph # (Auto) 0.9 L [place] # (Auto) 0.4 Eos # (Auto) 0.0 Baso # (Auto) 0.0 Abs Immat Gran (auto) 0.02 Absolute Neuts (auto) 2.8 Absolute Nucleated RBC 0.000 Nucleated RBC % (auto) 0.0 PT 12.4 INR 1.1 O2 Saturation ABG pH at Pt Temp ABG pCO2 at Pt Temp ABG pO2 at Pt Temp ABG HCO3 ABG Base Excess (Actual) VBG pH VBG pCO2 VBG pO2 VBG HCO3 VBG O2 Saturation VBG Base Excess Anion Gap 10 L Estim Creat Clear Calc 82.8 Estimated GFR > 60 POC Glucose 109 Random Glucose 112 Lactic Acid 0.6 Calcium 8.3 L Magnesium 1.9 Total Bilirubin 0.1 AST 22 ALT 19 Alkaline Phosphatase 47 Ammonia B-Natriuretic Peptide 237 H Total Protein 7.3 Albumin 3.6 Urine Color Dark Yellow Urine Appearance Cloudy Urine pH 5.5 Ur Specific [place] 1.020 Urine Protein 100 (2+) H Urine Glucose (UA) Negative Urine Ketones Negative Urine Blood Negative Urine Nitrite Negative Ur Leukocyte Esterase Negative Urine RBC 0-2 Urine WBC 0-5 Ur Squamous Epith Cells 6-10 Urine Bacteria None Seen Hyaline Casts >20 Granular Casts Present Salicylates Urine Opiates Screen Not Detected Ur Buprenorphine Scrn Not Detected Ur Oxycodone Screen Not Detected Urine Methadone Screen Not Detected Urine Fentanyl Screen Not Detected Acetaminophen Ur Barbiturates Screen Not Detected Ur Phencyclidine Scrn Not Detected Ur Amphetamines Screen Not Detected U Benzodiazepines Scrn Not Detected Urine Cocaine Screen Not Detected U Marijuana (THC) Screen Not Detected Ethyl Alcohol < 10 Influenza Type A (PCR) NEGATIVE Influenza Type B (PCR) NEGATIVE RSV RNA Qual (PCR) NEGATIVE SARS-CoV-2 RNA (RT-PCR) NEGATIVE 11/12/24 11/12/24 11/12/24 11:49 12:30 13:49 MCV MCH MCHC RDW Plt Count MPV Immature Gran % (Auto) Neut % (Auto) Lymph % (Auto) [place] % (Auto) Eos % (Auto) Baso % (Auto) Lymph # (Auto) [place] # (Auto) Eos # (Auto) Baso # (Auto) Abs Immat Gran (auto) Absolute Neuts (auto) Absolute Nucleated RBC Nucleated RBC % (auto) PT INR O2 Saturation ABG pH at Pt Temp ABG pCO2 at Pt Temp ABG pO2 at Pt Temp ABG HCO3 ABG Base Excess (Actual) VBG pH 7.18 L* VBG pCO2 105 VBG pO2 46 VBG HCO3 40 H VBG O2 Saturation 71.0 VBG Base Excess 8.6 Anion Gap Estim Creat Clear Calc Estimated GFR POC Glucose Random Glucose Lactic Acid Calcium Magnesium Total Bilirubin AST ALT Alkaline Phosphatase Ammonia 44 B-Natriuretic Peptide Total Protein Albumin Urine Color Urine Appearance Urine pH Ur Specific [place] Urine Protein Urine Glucose (UA) Urine Ketones Urine Blood Urine Nitrite Ur Leukocyte Esterase Urine RBC Urine WBC Ur Squamous Epith Cells Urine Bacteria Hyaline Casts Granular Casts Salicylates < 5.0 L Urine Opiates Screen Ur Buprenorphine Scrn Ur Oxycodone Screen Urine Methadone Screen Urine Fentanyl Screen Acetaminophen 10 Ur Barbiturates Screen Ur Phencyclidine Scrn Ur Amphetamines Screen U Benzodiazepines Scrn Urine Cocaine Screen U Marijuana (THC) Screen Ethyl Alcohol Influenza Type A (PCR) Influenza Type B (PCR) RSV RNA Qual (PCR) SARS-CoV-2 RNA (RT-PCR) 11/12/24 11/12/24 11/12/24 14:36 16:34 17:34 MCV MCH MCHC RDW Plt Count MPV Immature Gran % (Auto) Neut % (Auto) Lymph % (Auto) [place] % (Auto) Eos % (Auto) Baso % (Auto) Lymph # (Auto) [place] # (Auto) Eos # (Auto) Baso # (Auto) Abs Immat Gran (auto) Absolute Neuts (auto) Absolute Nucleated RBC Nucleated RBC % (auto) PT INR O2 Saturation 96.0 ABG pH at Pt Temp 7.23 L ABG pCO2 at Pt Temp 93 H* ABG pO2 at Pt Temp 83 ABG HCO3 39 H ABG Base Excess (Actual) 9.4 VBG pH 7.22 L VBG pCO2 85 VBG pO2 64 VBG HCO3 35 H VBG O2 Saturation 91.0 VBG Base Excess 5.3 Anion Gap 10 L Estim Creat Clear Calc 94.9 Estimated GFR > 60 POC Glucose Random Glucose 113 Lactic Acid Calcium 8.0 L Magnesium Total Bilirubin AST ALT Alkaline Phosphatase Ammonia B-Natriuretic Peptide Total Protein Albumin Urine Color Urine Appearance Urine pH Ur Specific [place] Urine Protein Urine Glucose (UA) Urine Ketones Urine Blood Urine Nitrite Ur Leukocyte Esterase Urine RBC Urine WBC Ur Squamous Epith Cells Urine Bacteria Hyaline Casts Granular Casts Salicylates Urine Opiates Screen Ur Buprenorphine Scrn Ur Oxycodone Screen Urine Methadone Screen Urine Fentanyl Screen Acetaminophen Ur Barbiturates Screen Ur Phencyclidine Scrn Ur Amphetamines Screen U Benzodiazepines Scrn Urine Cocaine Screen U Marijuana (THC) Screen Ethyl Alcohol Influenza Type A (PCR) Influenza Type B (PCR) RSV RNA Qual (PCR) SARS-CoV-2 RNA (RT-PCR) 11/12/24 17:39 MCV MCH MCHC RDW Plt Count MPV Immature Gran % (Auto) Neut % (Auto) Lymph % (Auto) [place] % (Auto) Eos % (Auto) Baso % (Auto) Lymph # (Auto) [place] # (Auto) Eos # (Auto) Baso # (Auto) Abs Immat Gran (auto) Absolute Neuts (auto) Absolute Nucleated RBC Nucleated RBC % (auto) PT INR O2 Saturation ABG pH at Pt Temp ABG pCO2 at Pt Temp ABG pO2 at Pt Temp ABG HCO3 ABG Base Excess (Actual) VBG pH 7.35 VBG pCO2 63 VBG pO2 79 VBG HCO3 36 H VBG O2 Saturation 100.0 VBG Base Excess 8.7 Anion Gap Estim Creat Clear Calc Estimated GFR POC Glucose Random Glucose Lactic Acid Calcium Magnesium Total Bilirubin AST ALT Alkaline Phosphatase Ammonia B-Natriuretic Peptide Total Protein Albumin Urine Color Urine Appearance Urine pH Ur Specific [place] Urine Protein Urine Glucose (UA) Urine Ketones Urine Blood Urine Nitrite Ur Leukocyte Esterase Urine RBC Urine WBC Ur Squamous Epith Cells Urine Bacteria Hyaline Casts Granular Casts Salicylates Urine Opiates Screen Ur Buprenorphine Scrn Ur Oxycodone Screen Urine Methadone Screen Urine Fentanyl Screen Acetaminophen Ur Barbiturates Screen Ur Phencyclidine Scrn Ur Amphetamines Screen U Benzodiazepines Scrn Urine Cocaine Screen U Marijuana (THC) Screen Ethyl Alcohol Influenza Type A (PCR) Influenza Type B (PCR) RSV RNA Qual (PCR) SARS-CoV-2 RNA (RT-PCR) Imaging Radiologist's Impressions: Impressions Chest X-Ray 11/12/24 12:15 IMPRESSION: The megaly. Low lung volumes. The lungs are grossly clear. Electronically signed by: eJovany Mckeon MD 11/12/2024 12:23 PM EST RP Head CT 11/12/24 13:36 IMPRESSION: No acute intracranial abnormalities. Electronically signed by: Bartolome Vidales MD 11/12/2024 01:59 PM EST RP Assessment and Plan (1) Acute and chronic respiratory failure with hypercapnia: Status: Acute (2) Acute metabolic encephalopathy: Status: Acute Plan Pt is a 79-year-old female with a PMH significant for chronic hypoxic and hypercapnic respiratory failure /obesity hypoventilation syndrome on home 2L O2, pulmonary hypertension, HFpEF, insulin-dependent type 2 diabetes, HTN, HLD, GERD, and NICO on CPAP who presents to the ED with? lethargy and weakness since this morning. Pt will be admitted to the hospital for treatment and further evaluation of acute on chronic hypoxic and hypercarbic respiratory failure secondary to noncompliance with home CPAP. Acute metabolic encephalopathy in the setting of acute on chronic hypoxic and hypercapnic respiratory failure requiring BiPAP support Pt initially obtunded with VBG pH 7.18, pCO2 105, and bicarb 40 Improved with BiPAP and Diamox Critical care consult who recommended continuous BiPAP tonight Transition to NC tomorrow as tolerated Will also treat with DuoNebs p.r.n., Solu-Medrol No sepsis: no indication of underlying pulmonary infection No indication to continue antibiotics at this time HFpEF Not in acute exacerbation Pt received Diamox in the ED Continue carvedilol, home Lasix Insulin-dependent type 2 diabetes Sliding-scale insulin, Lantus Diabetic diet HTN BP soft, hold losartan HLD Statin Obesity Class III Encourage weight loss Full Code Attending:?Dr. Black DVT Prophylaxis: Lovenox Pt will require a hospitalization of at least two nights for treatment of acute metabolic encephalopathy in the setting of acute on chronic hypoxic and hypercapnic respiratory failure requiring BiPAP support. Pt will require hospital level support administration supplemental oxygen?including BiPAP tonight, IV steroids, and breathing treatments as necessary. Quality Stroke Does the patient have a stroke diagnosis?: No VTE Prior VTE?: No VTE Risk Level:: Medical - moderate - high VTE Device Contraindication: Treatment Not Indicated VTE Drug Contraindication: N/A - Med Ordered
--- NOTE | 2024-11-12 19:30 | MHC.EDTECH ---
This tech took over care of patient at 1900,rounded and introduced self to patient, vitals taken, family at bedside call goodwin in reach
[2024-11-12] MEDS: Albuterol Sulfate 5 MG, Albuterol Sulfate (0.083%) 2.5 MG 7.5 MG INHALE (19:34)
[2024-11-12 19:53] LABS: ABG Refer to POC result
--- NOTE | 2024-11-12 20:44 | PHA.MEDREC ---
Addendum entered by [facility], located within [facility] 11/12/24 20:52: med rec reviewed Original Note: Pharmacy Consult ? Medication Reconciliation Pharmacy has completed the medication reconciliation. Spoke to patient son's at bedside to confirm med list. son states patient is no longer taking Gemtesa 75 mg and Ketotifen fumarate eye gtts. Son confirmed Lantus U-100 20 units at bedtime and Humalog KwikPen 5 units daily. Patient last took her medications 11/11/24.
[2024-11-12] MEDS: Enoxaparin Sodium 40 MG/0.4 ML SYRINGE SUBCUT (21:35)
--- NOTE | 2024-11-12 22:00 | MHC.EDTECH ---
Addendum entered by Dee Garzon 11/12/24 22:19: POC taken and 161,Ximena RN aware Original Note: Rounds and vitals completed, BP is low 87/41, RN made aware
[2024-11-12] MEDS: LORazepam 2 MG/ML VIAL 0.5 MG IVPUSH (22:09)
[2024-11-12] MEDS: Insulin Glargine,Hum.rec.anlog 100 UNIT/ML 10 ML VIAL 10 UNIT SUBCUT (22:09)
[2024-11-12] MEDS: Insulin Lispro 100 UNIT/ML 3 ML VIAL SUBCUT (22:09)
[2024-11-12 22:12] LABS: Glucose, Whole Blood 161 mg/dL (60-115)
[2024-11-13] VITALS (12 sets, daily range): BP systolic 126–170; BP diastolic 43–76; PULSE 63–79; RESP 15–23; TEMP 36.4–36.7; O2SAT 96–100; BMI 39.4
[2024-11-13 04:23] LABS: MANUAL DIFF FLAG NO
[2024-11-13 04:25] LABS: Basophils Percent Auto 0.3 % (0-2); Hematocrit 32.9 % (37.0-47.0); Hemoglobin 10.1 g/dl (12.0-16.0); Imm Gran Abs Auto 0.05 X10*3/uL (0.00-0.03); Imm Gran Pct Auto 1.6 % (0.0-0.4); Lymphocytes Absolute Auto 0.8 X10*3/uL (1.2-4.9); Lymphocytes Percent Auto 24.2 % (20-40); Mean Corpuscular HGB Conc 30.7 g/dl (31.0-35.0); Mean Corpuscular Hemoglobin 30.5 pg (27.0-33.0); Mean Corpuscular Volume 99.4 fL (80.0-98.0); Mean Platelet Volume 9.9 fL (9.4-12.3); Monocytes Absolute Auto 0.1 X10*3/uL (0.1-1.2); Monocytes Percent Auto 3.1 % (2-11); Neutrophils Absolute Auto 2.3 x10*3/uL (2.0-8.3); Neutrophils Percent Auto 70.8 % (45-73); Platelet Count 122 X10*3/uL (160-400); Red Blood Count 3.31 X10*6/uL (4.20-5.50); Red Cell Distribution Width 11.9 % (11.0-16.0); White Blood Count 3.2 X10*3/uL (4.8-10.8)
[2024-11-13 04:45] LABS: Anion Gap 12 (12-20); Blood Urea Nitrogen 20 mg/dL (9-16); Calcium 8.2 mg/dL (8.4-10.2); Carbon Dioxide 30 mmol/L (22-29); Chloride 102 mmol/L (96-108); Creatinine Clr Calc Pharmacy 92.2; Estimated Glomerular Filt Rate > 60; Glucose Random 148 mg/dL (60-115); Potassium 4.7 mmol/L (3.3-5.1); Sodium 139 mmol/L (135-145)
[2024-11-13] MEDS: Pantoprazole Sodium 20 MG TABLET.DR PO (06:24)
[2024-11-13] MEDS: Acetaminophen 325 MG TABLET 650 MG PO (06:24)
[2024-11-13 07:23] LABS: Glucose, Whole Blood 149 mg/dL (60-115)
[2024-11-13] MEDS: Famotidine 20 MG TABLET PO ×2 (07:48→20:32)
[2024-11-13] MEDS: Furosemide 40 MG TABLET PO (07:48)
[2024-11-13] MEDS: methylPREDNISolone Sod Succ 40 MG/ML VIAL IVPUSH ×2 (07:49→20:33)
[2024-11-13] MEDS: 0.9 % Sodium Chloride Flush 3 ML SYRINGE IVFLUSH ×3 (07:51→20:41)
--- NOTE | 2024-11-13 09:24 | MHC.CM.PN ---
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 Original Note: Patient is documented to be, unable to provide meaningful history; CM spoke with Son/HCP/Andres @ [phone] and addressed IMM with him(original will be mailed certified letter to Andres and a copy will be placed on the chart). Patient lives in an apartment with her and she uses both a walker and a w/c to assist with mobility. 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 Patient has had [facility] in the past. Patient's PCP was (patient has a new PCP but Son is unaware of the name) and Son/or will transport to home at dc.
--- NOTE | 2024-11-13 10:38 | PC.NURSE ---
Pt alert, pakistani speaking. Falls asleep easily but awakes to voice. Sat 96& on 2lpm va nc. Breathing even and unlabored. Pt repositioned in bed, noted moderate amount of urine incontinence and tucker noted to be not in place. Purewick placed for I&O monitoring.
[2024-11-13 11:46] LABS: Glucose, Whole Blood 155 mg/dL (60-115)
[2024-11-13] MEDS: Insulin Lispro 100 UNIT/ML 3 ML VIAL SUBCUT ×3 (12:11→20:33)
[2024-11-13 12:12] LABS: VBG Base Excess 6.6 mmol/L; VBG HCO3 35 mmol/L (22-26); VBG pCO2 78 mmHg; VBG pH 7.26 (7.32-7.43); VBG pO2 71 mmHg
[2024-11-13 12:17] LABS: Venous Blood Gas Refer to POC result
--- NOTE | 2024-11-13 13:11 | PC.NURSE ---
Patient's VBG resulted, Dr. Layton made aware, patient placed back on bipap, pulm consult placed.
--- NOTE | 2024-11-13 13:43 | P.PNIM_ITS ---
Subjective Subjective Date of Service: 11/13/24 Interval History: Somnolent, but arousable, son at bedside helped in obtaining history. Patient complaining of headache, denies dizziness, no chest pain, no palpitations, no shortness of breath, no cough, no fevers, no chills, tolerated BiPAP now off and on 2 L of oxygen. Review of Systems All other system reviewed and are negative. Physical Exam 2 Vital Signs: Vital Signs: Last Vital Signs Temp 97.5 F 11/13/24 12:07 Pulse 70 11/13/24 12:07 Resp 21 H 11/13/24 12:36 BP 147/66 H 11/13/24 12:07 Pulse Ox 99 11/13/24 12:07 O2 Del Method Nasal Cannula 11/13/24 12:07 O2 Flow Rate 2 11/13/24 12:07 Oxygen Flow Rate 3 11/12/24 11:10 BMI result Body Mass Index 41.8 Const: Other: General somnolent but arousable Neck supple no JVD. CVS regular rate rhythm, Respiratory lungs clear to auscultation, no respiratory distress, no wheeze, no rhonchi. Gastrointestinal abdomen soft, non tender, bowel sounds audible Extremities noedema. Neuro non focal speech clear. Skin no rash Appropriate affect Objective Data Active Medications Acetaminophen (Acetaminophen 325 Mg Tablet) 650 mg PO Q6H PRN PRN Reason: Pain, Mild 1-3,fever,headache Last Admin: 11/13/24 06:24 Dose: 650 mg Documented By: LUCY Albuterol Sulfate (Albuterol Sulfate (0.083%) 2.5 Mg/3 Ml Vial.Neb) 2.5 mg INHALE RQ6H PRN PRN Reason: Shortness Of Breath Or Wheezing Albuterol Sulfate (Albuterol Sulfate 90 Mcg 8 Gm Inhaler) 2 puff INHALE RQ6H PRN PRN Reason: Wheezing Albuterol/Ipratropium (Albuterol/Iprat 2.5/0.5mg 3 Ml Ampul.Neb) 3 ml INHALE RQ4H WHILE AWAKE PRN PRN Reason: Shortness of Breath/Wheezing Calcium Carbonate (Calcium Carbonate 750 Mg Tab.Chew) 750 mg PO Q4H PRN PRN Reason: Heartburn Dextrose (Dextrose 50 % 25 Gm/50 Ml Syringe) 25 gm IVPUSH Q15M PRN; Protocol PRN Reason: per Hypoglycemia Standing Ord. Enoxaparin Sodium (Enoxaparin Sodium 40 Mg/0.4 Ml Syringe) 40 mg SUBCUT Q24H [facility] Last Admin: 11/12/24 21:35 Dose: 40 mg Documented By: LUCY Ergocalciferol (Ergocalciferol (Vitamin D2) 1,250 Mcg Capsule) 1,250 mcg PO MO [facility] Famotidine (Famotidine 20 Mg Tablet) 20 mg PO BID [facility] Last Admin: 11/13/24 07:48 Dose: 20 mg Documented By: LOBO Furosemide (Furosemide 40 Mg Tablet) 40 mg PO DAILY [facility]; Protocol Last Admin: 11/13/24 07:48 Dose: 40 mg Documented By: LOBO Glucose (Glucose Gel 15 Gm Gel..Gram.) 15 gm PO Q15M PRN; Protocol PRN Reason: per Hypoglycemia Standing Ord. Insulin Glargine (Insulin Glargine,Hum.Rec.Anlog 100 Unit/Ml 10 Ml Vial) 14 unit SUBCUT BEDTIME [facility] Insulin Human Lispro (Insulin Lispro 100 Unit/Ml 3 Ml Vial) 0 unit SUBCUT QIDACHS [facility]; Protocol Last Admin: 11/13/24 12:11 Dose: 2 unit Documented By: VIDA Magnesium Hydroxide (Milk Of Magnesia 30 Ml Oral.Susp) 30 ml PO DAILY PRN PRN Reason: Constipation Melatonin (Melatonin 3 Mg Tablet) 6 mg PO BEDTIME PRN PRN Reason: Insomnia Methylprednisolone Sodium Succinate (Methylprednisolone Sod Succ 40 Mg/Ml Vial) 40 mg IVPUSH Q12H [facility] Last Admin: 11/13/24 07:49 Dose: 40 mg Documented By: LOBO Ondansetron HCl (Ondansetron Hcl 4 Mg/2 Ml Vial) 4 mg IVPUSH Q8H PRN PRN Reason: Nausea and Vomiting Pantoprazole Sodium (Pantoprazole Sodium 20 Mg Tablet.) 20 mg PO DAILY@0630 [facility] Last Admin: 11/13/24 06:24 Dose: 20 mg Documented By: LUCY Pravastatin Sodium (Pravastatin Sodium 40 Mg Tablet) 40 mg PO BEDTIME [facility] Sodium Chloride (0.9 % Sodium Chloride Flush 3 Ml Syringe) 3 ml IVFLUSH QSHIFT [facility] Last Admin: 11/13/24 07:51 Dose: 3 ml Documented By: LOBO Labs 11/13/24 04:18 11/13/24 04:18 Labs: Laboratory Results - last 24 hr 11/12/24 11/12/24 11/12/24 13:49 14:36 16:34 MCV MCH MCHC RDW Plt Count MPV Immature Gran % (Auto) Neut % (Auto) Lymph % (Auto) [place] % (Auto) Eos % (Auto) Baso % (Auto) Lymph # (Auto) [place] # (Auto) Eos # (Auto) Baso # (Auto) Abs Immat Gran (auto) Absolute Neuts (auto) Absolute Nucleated RBC Nucleated RBC % (auto) O2 Saturation 96.0 ABG pH at Pt Temp 7.23 L ABG pCO2 at Pt Temp 93 H* ABG pO2 at Pt Temp 83 ABG HCO3 39 H ABG Base Excess (Actual) 9.4 VBG pH 7.22 L VBG pCO2 85 VBG pO2 64 VBG HCO3 35 H VBG O2 Saturation 91.0 VBG Base Excess 5.3 Anion Gap Estim Creat Clear Calc Estimated GFR POC Glucose Random Glucose Calcium Salicylates < 5.0 L Acetaminophen 10 11/12/24 11/12/24 11/12/24 17:34 17:39 22:00 MCV MCH MCHC RDW Plt Count MPV Immature Gran % (Auto) Neut % (Auto) Lymph % (Auto) [place] % (Auto) Eos % (Auto) Baso % (Auto) Lymph # (Auto) [place] # (Auto) Eos # (Auto) Baso # (Auto) Abs Immat Gran (auto) Absolute Neuts (auto) Absolute Nucleated RBC Nucleated RBC % (auto) O2 Saturation ABG pH at Pt Temp ABG pCO2 at Pt Temp ABG pO2 at Pt Temp ABG HCO3 ABG Base Excess (Actual) VBG pH 7.35 VBG pCO2 63 VBG pO2 79 VBG HCO3 36 H VBG O2 Saturation 100.0 VBG Base Excess 8.7 Anion Gap 10 L Estim Creat Clear Calc 94.9 Estimated GFR > 60 POC Glucose 161 H Random Glucose 113 Calcium 8.0 L Salicylates Acetaminophen 11/13/24 11/13/24 11/13/24 04:18 07:18 11:43 MCV 99.4 H MCH 30.5 MCHC 30.7 L RDW 11.9 Plt Count 122 L MPV 9.9 Immature Gran % (Auto) 1.6 H Neut % (Auto) 70.8 Lymph % (Auto) 24.2 [place] % (Auto) 3.1 Eos % (Auto) 0.0 Baso % (Auto) 0.3 Lymph # (Auto) 0.8 L [place] # (Auto) 0.1 Eos # (Auto) 0.0 Baso # (Auto) 0.0 Abs Immat Gran (auto) 0.05 H Absolute Neuts (auto) 2.3 Absolute Nucleated RBC 0.000 Nucleated RBC % (auto) 0.0 O2 Saturation ABG pH at Pt Temp ABG pCO2 at Pt Temp ABG pO2 at Pt Temp ABG HCO3 ABG Base Excess (Actual) VBG pH VBG pCO2 VBG pO2 VBG HCO3 VBG O2 Saturation VBG Base Excess Anion Gap 12 Estim Creat Clear Calc 92.2 Estimated GFR > 60 POC Glucose 149 H 155 H Random Glucose 148 H Calcium 8.2 L Salicylates Acetaminophen 11/13/24 12:07 MCV MCH MCHC RDW Plt Count MPV Immature Gran % (Auto) Neut % (Auto) Lymph % (Auto) [place] % (Auto) Eos % (Auto) Baso % (Auto) Lymph # (Auto) [place] # (Auto) Eos # (Auto) Baso # (Auto) Abs Immat Gran (auto) Absolute Neuts (auto) Absolute Nucleated RBC Nucleated RBC % (auto) O2 Saturation ABG pH at Pt Temp ABG pCO2 at Pt Temp ABG pO2 at Pt Temp ABG HCO3 ABG Base Excess (Actual) VBG pH 7.26 L VBG pCO2 78 VBG pO2 71 VBG HCO3 35 H VBG O2 Saturation 97.0 VBG Base Excess 6.6 Anion Gap Estim Creat Clear Calc Estimated GFR POC Glucose Random Glucose Calcium Salicylates Acetaminophen Assessment and Plan (1) Acute and chronic respiratory failure with hypercapnia: Status: Acute Plan 79-year-old female with a PMH significant for chronic hypoxic and hypercapnic respiratory failure /obesity hypoventilation syndrome on home 2L O2, pulmonary hypertension, HFpEF, insulin-dependent type 2 diabetes, HTN, HLD, GERD, and NICO on CPAP who presents to the ED with? lethargy and weakness since this morning. Pt will be admitted to the hospital for treatment and further evaluation of acute on chronic hypoxic and hypercarbic respiratory failure secondary to noncompliance with home CPAP. Acute metabolic encephalopathy in the setting of acute on chronic hypoxic and hypercapnic respiratory failure requiring BiPAP support On arrival obtunded with VBG pH 7.18, pCO2 105, and bicarb 40, treated with BiPAP overnight and Diamox Repeat VBG improved, but early afternoon patient noted to be somnolent again repeat VBG showed worsening pCO2 78, pH 7.26 placed back on BiPAP Continue DuoNebs p.r.n., Solu-Medrol 40 mg b.i.d. Hold antibiotics no evidence of acute infection Pulmonology consult HFpEF Not in acute exacerbation Continue carvedilol, and Lasix 40 mg Insulin-dependent type 2 diabetes Blood sugars around 150s, continue Sliding-scale insulin, Lantus 14 units bedtime, Diabetic diet HTN BP soft on arrival now trending up, resume losartan and Coreg HLD continue pravastatin Obesity Class III Encourage weight loss Full Code DVT Prophylaxis: Lovenox Pt will require continued inpatient hospitalization for treatment of acute metabolic encephalopathy in the setting of acute on chronic hypoxic and hypercapnic respiratory failure requiring BiPAP support. Quality Stroke Does the patient have a stroke diagnosis?: No VTE Prior VTE?: No VTE Risk Level:: Medical - moderate - high VTE Device Contraindication: Treatment Not Indicated VTE Drug Contraindication: N/A - Med Ordered
[2024-11-13] MEDS: acetaZOLAMIDE 250 MG TABLET 500 MG PO ×2 (15:39→20:32)
[2024-11-13 15:59] LABS: Glucose, Whole Blood 187 mg/dL (60-115)
--- NOTE | 2024-11-13 16:02 | P.CONPL_ITS ---
History of Present Illness History of Present Illness Consult date: 11/13/24 Chief complaint: AMS Narrative: 79-year-old lady with underlying hypertension, diabetes mellitus, obesity, NICO/ohs on BiPAP, poorly compliant, COPD, pulmonary hypertension, and diastolic dysfunction admitted on 11/12/2024 with acute on chronic hypercapnic respiratory failure requiring BiPAP support. Patient was initially treated with acetazolamide with improvement, however now again is requiring BiPAP support. Review of Systems 2 Constitutional: Constitutional: Denies daytime sleepiness, Denies excessive sweating, Denies fatigue, Denies fever(s), Denies lethargy, Denies malaise, Denies night sweats, Denies snoring and Denies weight loss Eyes: Eyes: Denies blurry vision and Denies itchy eyes ENT: Denies nasal congestion, Denies post nasal drip, Denies sinus pain, Denies sinus pressure and Denies other ( Thrush) Cardiovascular: Cardiovascular: Denies chest pain, Denies pedal edema, Denies dyspnea, Reports orthopnea and Denies paroxysmal nocturnal dyspnea Respiratory: Respiratory: Denies cough, Denies hemoptysis, Denies excessive phlegm production, Denies dyspnea, Denies snoring and Denies wheezing Gastrointestinal: Gastrointestinal: Denies abdominal pain and Denies heartburn Musculoskeletal: Musculoskeletal: Denies myalgias, Denies arthralgias and Denies joint swelling Integumentary/Breasts: Skin/Breast: Denies rash Neurologic: Denies memory loss and Denies seizure-like activity Psychiatric: Psychiatric: Denies abnormal sleep pattern, Denies anxiety and Denies memory loss Endocrine: Endocrine: Denies excessive sweating, Denies fatigue and Denies heat intolerance Hematologic/Lymphatic: Hematologic/Lymphatic: Denies easy bruising Allergic/Immunologic: Allergic/Immunologic: Denies itchy eyes, Denies seasonal rhinorrhea and Denies wheezing PMFSH Past Medical History Medical History Unspecified urinary incontinence NICO (obstructive sleep apnea) CHF (congestive heart failure) 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 indication of end stage renal disease in patient 6 to 64 years of age Lymphadenopathy Abdominal pain Bursitis of right hip Osteoarthritis of right hip Restrictive ventilatory defect Dyspnea on exertion Varicose veins of right lower extremity with inflammation Pneumonitis Pulmonary hypertension Hypertensive cardiovascular disease Acute hypoxic on chronic hypercapnic respiratory failure Acute on chronic respiratory failure with hypoxemia Obesity hypoventilation syndrome GERD (gastroesophageal reflux disease) Hypertension Diabetes mellitus COPD (chronic obstructive pulmonary disease) Family History Family History Mother Diabetes Surgical History Surgical History S/P laparoscopic cholecystectomy (07/14/21) Social History Social History Household Members: Unknown / Unable to assess Household Members Other:: cousin Housing: Unknown / Unable to assess Do you presently have visiting nurse or other home services: No Unable to assess alcohol history related to: Unknown Alcohol intake: never Patient Tobacco Use Status: Former Tobacco user Tobacco use type: Cigarette Years Smoked: 20 Use of substances other than those prescribed or required for medical reasons: Unknown Advance Directives: Yes Advance Directives on File: Yes Advance Directives Date on File: 02/22/22 Do you have a plan to hurt others: No Plan service: No Current occupational status: unemployed and disabled Meds Allergies Allergy/AdvReac Type Severity Reaction Status Date / Time No Known Allergies Allergy Verified 11/12/24 11:13 [No Known Allergies*] Active Medications: Current Medications Acetaminophen (Acetaminophen 325 Mg Tablet) 650 mg PO Q6H PRN PRN Reason: Pain, Mild 1-3,fever,headache Last Admin: 11/13/24 06:24 Dose: 650 mg Acetazolamide (Acetazolamide 250 Mg Tablet) 500 mg PO BID [facility] Albuterol Sulfate (Albuterol Sulfate (0.083%) 2.5 Mg/3 Ml Vial.Neb) 2.5 mg INHALE RQ6H PRN PRN Reason: Shortness Of Breath Or Wheezing Albuterol Sulfate (Albuterol Sulfate 90 Mcg 8 Gm Inhaler) 2 puff INHALE RQ6H PRN PRN Reason: Wheezing Albuterol/Ipratropium (Albuterol/Iprat 2.5/0.5mg 3 Ml Ampul.Neb) 3 ml INHALE RQ4H WHILE AWAKE PRN PRN Reason: Shortness of Breath/Wheezing Calcium Carbonate (Calcium Carbonate 750 Mg Tab.Chew) 750 mg PO Q4H PRN PRN Reason: Heartburn Carvedilol (Carvedilol 12.5 Mg Tablet) 12.5 mg PO BID [facility]; Protocol Dextrose (Dextrose 50 % 25 Gm/50 Ml Syringe) 25 gm IVPUSH Q15M PRN; Protocol PRN Reason: per Hypoglycemia Standing Ord. Enoxaparin Sodium (Enoxaparin Sodium 40 Mg/0.4 Ml Syringe) 40 mg SUBCUT Q24H [facility] Last Admin: 11/12/24 21:35 Dose: 40 mg Ergocalciferol (Ergocalciferol (Vitamin D2) 1,250 Mcg Capsule) 1,250 mcg PO MO [facility] Famotidine (Famotidine 20 Mg Tablet) 20 mg PO BID [facility] Last Admin: 11/13/24 07:48 Dose: 20 mg Furosemide (Furosemide 40 Mg Tablet) 40 mg PO DAILY [facility]; Protocol Last Admin: 11/13/24 07:48 Dose: 40 mg Glucose (Glucose Gel 15 Gm Gel..Gram.) 15 gm PO Q15M PRN; Protocol PRN Reason: per Hypoglycemia Standing Ord. Insulin Glargine (Insulin Glargine,Hum.Rec.Anlog 100 Unit/Ml 10 Ml Vial) 14 unit SUBCUT BEDTIME [facility] Insulin Human Lispro (Insulin Lispro 100 Unit/Ml 3 Ml Vial) 0 unit SUBCUT QIDACHS [facility]; Protocol Last Admin: 11/13/24 12:11 Dose: 2 unit Losartan Potassium (Losartan Potassium 50 Mg Tablet) 50 mg PO DAILY [facility]; Protocol Magnesium Hydroxide (Milk Of Magnesia 30 Ml Oral.Susp) 30 ml PO DAILY PRN PRN Reason: Constipation Melatonin (Melatonin 3 Mg Tablet) 6 mg PO BEDTIME PRN PRN Reason: Insomnia Methylprednisolone Sodium Succinate (Methylprednisolone Sod Succ 40 Mg/Ml Vial) 40 mg IVPUSH Q12H [facility] Last Admin: 11/13/24 07:49 Dose: 40 mg Ondansetron HCl (Ondansetron Hcl 4 Mg/2 Ml Vial) 4 mg IVPUSH Q8H PRN PRN Reason: Nausea and Vomiting Pantoprazole Sodium (Pantoprazole Sodium 20 Mg Tablet.Dr) 20 mg PO DAILY@0630 [facility] Last Admin: 11/13/24 06:24 Dose: 20 mg Pravastatin Sodium (Pravastatin Sodium 40 Mg Tablet) 40 mg PO BEDTIME [facility] Sodium Chloride (0.9 % Sodium Chloride Flush 3 Ml Syringe) 3 ml IVFLUSH QSHIFT [facility] Last Admin: 11/13/24 07:51 Dose: 3 ml Home Medications ?Medication ?Instructions ?Recorded ?Confirmed ?Last Taken ?Type lancets 33 gauge (TRUEplus Lancets) #100 ea 09/20/21 09/23/24 02/19/22 History sitagliptin phos 50 mg-metformin 1 tab PO DAILY 02/20/22 11/12/24 11/11/24 History ER 1,000 mg tablet,extend rel 24h mp (Janumet XR) furosemide 40 mg tablet 40 mg PO DAILY 05/11/23 11/12/24 11/11/24 History albuterol sulfate 90 mcg/actuation 2 puff inhalation Q6H PRN Wheezing 11/02/23 11/12/24 11/11/24 History aerosol inhaler ergocalciferol (vitamin D2) 1,250 1,250 mcg PO MO 11/02/23 11/12/24 11/10/24 History mcg (50,000 unit) capsule famotidine 20 mg tablet 20 mg PO BID 11/02/23 11/12/24 11/11/24 History pravastatin 40 mg tablet 40 mg PO BEDTIME 11/02/23 11/12/24 11/11/24 History albuterol sulfate 2.5 mg/3 mL 2.5 mg inhalation Q6H PRN 05/04/24 11/12/24 Unknown History (0.083 %) solution for nebulization Shortness Of Breath Or Wheezing pantoprazole 20 mg tablet,delayed 20 mg PO DAILY@0630 05/04/24 11/12/24 11/11/24 History release insulin lispro 100 unit/mL 5 unit subcut DAILY 08/06/24 11/12/24 11/11/24 History subcutaneous pen (Humalog KwikPen (U-100) Insulin) Physical Exam 2 Vital Signs: Vital Signs: Last Vital Signs Temp 97.8 F 11/13/24 15:47 Pulse 63 11/13/24 15:47 Resp 17 11/13/24 15:47 BP 150/67 H 11/13/24 15:47 Pulse Ox 98 11/13/24 15:47 O2 Del Method BiPAP 11/13/24 15:47 O2 Flow Rate 2 11/13/24 12:07 Oxygen Flow Rate 3 11/12/24 11:10 BMI result Body Mass Index 41.8 Const: General: no acute distress and lethargic (Arousable) Nutritional Appearance: obese Orientation/consciousness: lethargic (Arousable) and Other orientation findings ( oriented) HEENT: Head: Yes atraumatic Eyes: General: appearance normal, both eyes and all related structures S clerae: sclerae normal EOM: EOMs intact bilaterally Neck: Neck: Yes supple Lymphatic: no lymphadenopathy noted Resp: Effort & Inspection: normal respiratory effort and no use of accessory muscles Auscultation: clear to auscultation bilaterally Cardio: Rate: regular rate Rhythm: regular rhythm Heart sounds: no gallops, no murmurs and no rubs Skin: General skin exam: other ( warm) Extrem: General: No clubbing, No cyanosis and Yes edema (Trace bilateral) Results Laboratory Findings 11/13/24 04:18 11/13/24 04:18 ABG, PT/INR, D-dimer: PT/INR, D-dimer PT 12.4 SEC (10.9-12.4) 11/12/24 11:35 INR 1.1 (0.9-1.1) 11/12/24 11:35 Abnormal lab findings: Abnormal Labs 11/12/24 11/12/24 11/12/24 11:18 11:35 12:30 WBC 4.2 L RBC 3.40 L Hgb 10.2 L Hct 34.1 L MCV 100.3 H MCHC 29.9 L Plt Count 137 L Immature Gran % (Auto) 0.5 H Lymph # (Auto) 0.9 L Abs Immat Gran (auto) ABG pH at Pt Temp ABG pCO2 at Pt Temp ABG HCO3 VBG pH 7.18 L* VBG HCO3 40 H Carbon Dioxide 35 H Anion Gap 10 L BUN 18 H POC Glucose Random Glucose Calcium 8.3 L B-Natriuretic Peptide 237 H Urine Protein 100 (2+) H Salicylates 11/12/24 11/12/24 11/12/24 13:49 14:36 16:34 WBC RBC Hgb Hct MCV MCHC Plt Count Immature Gran % (Auto) Lymph # (Auto) Abs Immat Gran (auto) ABG pH at Pt Temp 7.23 L ABG pCO2 at Pt Temp 93 H* ABG HCO3 39 H VBG pH 7.22 L VBG HCO3 35 H Carbon Dioxide Anion Gap BUN POC Glucose Random Glucose Calcium B-Natriuretic Peptide Urine Protein Salicylates < 5.0 L 11/12/24 11/12/24 11/12/24 17:34 17:39 22:00 WBC RBC Hgb Hct MCV MCHC Plt Count Immature Gran % (Auto) Lymph # (Auto) Abs Immat Gran (auto) ABG pH at Pt Temp ABG pCO2 at Pt Temp ABG HCO3 VBG pH VBG HCO3 36 H Carbon Dioxide 32 H Anion Gap 10 L BUN 17 H POC Glucose 161 H Random Glucose Calcium 8.0 L B-Natriuretic Peptide Urine Protein Salicylates 11/13/24 11/13/24 11/13/24 04:18 07:18 11:43 WBC 3.2 L RBC 3.31 L Hgb 10.1 L Hct 32.9 L MCV 99.4 H MCHC 30.7 L Plt Count 122 L Immature Gran % (Auto) 1.6 H Lymph # (Auto) 0.8 L Abs Immat Gran (auto) 0.05 H ABG pH at Pt Temp ABG pCO2 at Pt Temp ABG HCO3 VBG pH VBG HCO3 Carbon Dioxide 30 H Anion Gap BUN 20 H POC Glucose 149 H 155 H Random Glucose 148 H Calcium 8.2 L B-Natriuretic Peptide Urine Protein Salicylates 11/13/24 11/13/24 12:07 15:56 WBC RBC Hgb Hct MCV MCHC Plt Count Immature Gran % (Auto) Lymph # (Auto) Abs Immat Gran (auto) ABG pH at Pt Temp ABG pCO2 at Pt Temp ABG HCO3 VBG pH 7.26 L VBG HCO3 35 H Carbon Dioxide Anion Gap BUN POC Glucose 187 H Random Glucose Calcium B-Natriuretic Peptide Urine Protein Salicylates Microbiology: Microbiology 11/12/24 11:49 Blood - Venous Blood Culture - Preliminary No growth after 24 hours. 11/12/24 11:35 Blood - Venous Blood Culture - Preliminary No growth after 24 hours. Assessment and Plan (1) NICO (obstructive sleep apnea): Status: Acute (2) Acute and chronic respiratory failure with hypercapnia: Status: Acute (3) Obesity hypoventilation syndrome: Status: Acute (4) COPD (chronic obstructive pulmonary disease): Status: Acute Plan Impression: 79-year-old lady with underlying NICO/ohs requiring BiPAP 25/20 at home poorly compliant, admitted with acute on chronic hypercapnic respiratory failure requiring BiPAP support, initially titrated off, now again requiring BiPAP. Recommendation: Start Diamox 500 b.i.d. 1st dose now. Continue BiPAP 25/20 FiO2 24-28% at night and as needed for naps. Procedures Date of Service Date of Service: 11/13/24
--- NOTE | 2024-11-13 16:23 | MHC.EDTECH ---
dr phoenix stopped in and made some changes on bipap machine, current settings are ; 24/20 at 24%
--- NOTE | 2024-11-13 18:22 | PC.NURSE ---
Patient asking to eat, placed on 2L NC sats 98% eating dinner.
[2024-11-13] MEDS: Enoxaparin Sodium 40 MG/0.4 ML SYRINGE SUBCUT (19:08)
[2024-11-13 19:48] LABS: Glucose, Whole Blood 178 mg/dL (60-115)
[2024-11-13] MEDS: carvediloL 12.5 MG TABLET PO (20:32)
[2024-11-13] MEDS: Pravastatin Sodium 40 MG TABLET PO (20:32)
[2024-11-13] MEDS: Insulin Glargine,Hum.rec.anlog 100 UNIT/ML 10 ML VIAL 14 UNIT SUBCUT (20:33)
[2024-11-14] VITALS (10 sets, daily range): BP systolic 169–203; BP diastolic 71–96; PULSE 54–70; RESP 15–22; TEMP 36.1–36.6; O2SAT 96–99
[2024-11-14] MEDS: Pantoprazole Sodium 20 MG TABLET.DR PO (05:12)
[2024-11-14 07:16] LABS: Glucose, Whole Blood 138 mg/dL (60-115)
[2024-11-14] MEDS: carvediloL 12.5 MG TABLET PO ×2 (08:52→20:47)
[2024-11-14] MEDS: methylPREDNISolone Sod Succ 40 MG/ML VIAL IVPUSH (08:52)
[2024-11-14] MEDS: Famotidine 20 MG TABLET PO ×2 (08:52→20:48)
[2024-11-14] MEDS: Furosemide 40 MG TABLET PO (08:52)
[2024-11-14] MEDS: Losartan Potassium 50 MG TABLET PO (08:52)
[2024-11-14] MEDS: acetaZOLAMIDE 250 MG TABLET 500 MG PO ×2 (08:53→20:46)
[2024-11-14] MEDS: 0.9 % Sodium Chloride Flush 3 ML SYRINGE IVFLUSH ×2 (08:53→16:11)
[2024-11-14 11:28] LABS: Glucose, Whole Blood 179 mg/dL (60-115)
[2024-11-14] MEDS: Insulin Lispro 100 UNIT/ML 3 ML VIAL SUBCUT ×3 (12:00→20:48)
--- NOTE | 2024-11-14 14:09 | PM.DS ---
DS: Providers Provider Date of Service: 11/14/24 Date of admission: 11/12/24 19:33 Date of discharge: 11/14/24 Primary care physician: Carmine Patel MD Consults: 11/13/24 12:33 Consult to Pulmonology Routine Consulting Provider: [facility] Pulmonology [facility] Reason for consultation: Hypercarbic respiratory failure Has provider been notified: No DS: Diagnosis Discharge Diagnosis (1) NICO (obstructive sleep apnea): Status: Acute (2) Acute and chronic respiratory failure with hypercapnia: Status: Acute (3) Obesity hypoventilation syndrome: Status: Acute (4) COPD (chronic obstructive pulmonary disease): Status: Acute DS: Summary Hospital Course Hospital Course: Date of Service: 11/12/24 Attending physician on admission: Kassy Black Chief Complaint: Weakness, lethargy Pt is a 79-year-old female with a PMH significant for chronic hypoxic and hypercapnic respiratory failure /obesity hypoventilation syndrome on home 2L O2, pulmonary hypertension, HFpEF, insulin-dependent type 2 diabetes, HTN, HLD, GERD, and NICO on CPAP who presents to the ED with? lethargy and weakness since this morning. Pt is currently somnolent but arousable, wearing BiPAP. is alert and oriented and following commands, but unable to provide meaningful HPI which is instead obtained from family who was at bedside as well as chart and provider review. This morning pt was noted by family to be lethargic, not opening her eyes , following commands, or responding to questions. Pt was otherwise in her normal state of health yesterday without any reported nausea, vomiting, abdominal pain, SOB, cough, fever, or chills. Pt known to be noncompliant with CPAP at night. Often will take off her CPAP mask during the middle of the night. And according to has not been wearing CPAP at all for the past 2 nights. Pt was initially obtunded at time of arrival and in significant respiratory acidosis. pt has significantly improved with rescue BiPAP in the ED and now alert and oriented. Family reports was able to carry on a conversation with her a short time ago and she ate a sandwich. Family also note this is the fourth time she has had similar symptoms due to respiratory distress. Family would like to know about options for having a full-time CHAIR AND COUCH MAKER at nighttime to ensure CPAP compliance. In the ED pt was febrile at 100.6, tachypneic up to 30, and hypotensive as low as 91/49. Pt initially arrived on 3 L NC, but was transitioned to BiPAP due to respiratory acidosis. Labs were significant for leukopenia of 4.2, H&H 10.2/34.1, bicarb 35, and BNP elevated at 237. No significant electrolyte abnormalities. Renal function baseline. Hepatic function WNL. Ammonia WNL. initial VBG with pH 7.18, pCO2 105, and bicarb 40; repeat with improvement to pH 7.35, pCO2 63, and bicarb 36. UA negative for UTI. Tested negative for flu, COVID, RSV. CXR showed hepatomegaly but no evidence of acute cardiopulmonary process. CT of head negative for acute intracranial abnormality.?EKG demonstrated Normal sinus rhythm without evidence of significant ST elevations or depressions. during ED stay pt became hypotensive and ICU was contacted. Family, however wish to hold on intubation, and ad operations intern recommended administration of Diamox and continuing BiPAP support for the night. Pt was treated with IVF, ceftriaxone, doxycycline, acetaminophen, DuoNebs, Solu-Medrol, bicarb, and acetazolamide. Pt will be admitted to the hospital for treatment and further evaluation of acute on chronic hypoxic and hypercarbic respiratory failure secondary to noncompliance with home CPAP. Hospital course: 79-year-old female with a PMH significant for chronic hypoxic and hypercapnic respiratory failure /obesity hypoventilation syndrome on home 2L O2, pulmonary hypertension, HFpEF, insulin-dependent type 2 diabetes, HTN, HLD, GERD, and NICO on CPAP who presents to the ED with? lethargy and weakness since this morning. Pt will be admitted to the hospital for treatment and further evaluation of acute on chronic hypoxic and hypercarbic respiratory failure secondary to noncompliance with home CPAP. Admitted due to Acute metabolic encephalopathy in the setting of acute on chronic hypoxic and hypercapnic respiratory failure due to noncompliance with BiPAP,On arrival obtunded with VBG pH 7.18, pCO2 105, and bicarb 40, treated with BiPAP and Diamox, VBG improved, encephalopathy resolved, hemodynamically stable, evaluated by lead javascript engineer they recommended to continue BiPAP at bedtime and during naps, no acute pneumonia, does not require treatment with antibiotics or steroids,Recommend outpatient follow-up lead javascript engineer and strongly recommend compliance with BiPAP. Continue 2 L of home oxygen. HFpEF no acute exacerbation noted recommend to continue Coreg and Lasix Insulin-dependent type 2 diabetes, noted to have stable blood sugars continue Lantus, diabetic diet HTN BP resume losartan and Coreg HLD continue pravastatin. Time Attestation Discharge Coordination Time (in mins): 40 Quality: Safe Use of Opioids Does Pt have an Active Cancer Diagnosis on the Problem List?: No Quality: Stroke Does the patient have a stroke diagnosis?: No Physical Exam Vital Signs: Vital Signs: Last Vital Signs Temp 97.9 F 11/14/24 11:42 Pulse 59 11/14/24 11:42 Resp 19 11/14/24 11:42 BP 183/86 H 11/14/24 11:42 Pulse Ox 98 11/14/24 11:42 O2 Del Method Room Air 11/14/24 11:42 O2 Flow Rate 3 11/14/24 03:04 Oxygen Flow Rate 3 11/12/24 11:10 BMI result Body Mass Index 39.4 Const: Other: General awake alert answering questions appropriately, no distress Neck supple no JVD. CVS regular rate rhythm, Respiratory lungs clear to auscultation, no respiratory distress, no wheeze, no rhonchi. Gastrointestinal abdomen soft, non tender, bowel sounds audible Extremities no edema. Neuro non focal speech clear. Skin no rash Appropriate affect DS: Data Data Completed and Pending Completed studies during hospitalization [Text1]: Procedures Assistance with Respiratory Ventilation, Less than 24 Consecutive Hours, Continuous Positive Airway Pressure (07/06/24) Insertion of Endotracheal Airway into Trachea, Via Natural or Artificial Opening Endoscopic (07/12/21) Inspection of Lower Intestinal Tract, Via Natural or Artificial Opening Endoscopic (02/20/22) Resection of Gallbladder, Percutaneous Endoscopic Approach (07/12/21) Respiratory Ventilation, Less than 24 Consecutive Hours (07/12/21) Labs on day of discharge: Laboratory Results - last 24 hr 11/13/24 11/13/24 11/14/24 15:56 19:40 07:12 POC Glucose 187 H 178 H 138 H 11/14/24 11:18 POC Glucose 179 H Preliminary micro results at discharge 11/12/24 11:49 Blood Culture - Preliminary Blood - Venous No growth after 48 hours. 11/12/24 11:35 Blood Culture - Preliminary Blood - Venous No growth after 48 hours. Discharge Plan Discharge Anticipated Discharge Date/Time: 11/14/24 14:03 Patient Disposition: Home Health Service Discharge Diagnosis: Acute metabolic encephalopathy Acute on chronic hypoxic and hypercapnic respiratory failure Referrals: Carmine Patel MD [Primary Care Provider] - 1 Week Discharge Medications: Continued Janumet XR 50-1,000 mg tablet, ER multiphase 24 hr 1 tab PO DAILY insulin lispro [Humalog KwikPen Insulin] 100 unit/mL insulin pen 5 unit subcut DAILY pravastatin 40 mg tablet 40 mg PO BEDTIME ergocalciferol (vitamin D2) 1,250 mcg (50,000 unit) capsule 1,250 mcg PO MO albuterol sulfate 90 mcg/actuation HFA aerosol inhaler 2 puff inhalation Q6H PRN (Reason: Wheezing) famotidine 20 mg tablet 20 mg PO BID carvedilol 12.5 mg Tablet 12.5 mg PO BID Qty: 60 0RF Protocol: Hold for SBP/HR < HOLD for SBP < : 90 HOLD for HR < : 60 insulin glargine [Lantus U-100 Insulin] 100 unit/mL Solution 20 unit subcut BEDTIME Qty: 10 0RF losartan 50 mg tablet 50 mg PO DAILY Qty: 30 0RF pantoprazole 20 mg tablet,delayed release (DR/EC) 20 mg PO DAILY@0630 albuterol sulfate 2.5 mg /3 mL (0.083 %) solution for nebulization 2.5 mg inhalation Q6H PRN (Reason: Shortness Of Breath Or Wheezing) (DME) lancets [TRUEplus Lancets] 33 gauge misc See Rx Instructions topical .MEDSUPPLY Qty: 100 Rx Instructions: As directed furosemide 40 mg tablet 40 mg PO DAILY Discharge Orders: Discharge Order (Routine); Ordered 11/14/24 Ordered By: Gigi Layton Diet: Diabetic diet Activity on Discharge: As tolerated Stand Alone Forms: Patient Portal Discharge page Print Language: Kyrgyz Care Plan Goals: Obstructive sleep apnea continue BiPAP 25/20 at night and during day for naps Strongly recommend compliance with BiPAP to prevent recurrent episodes of lethargy somnolence confusion and low oxygenation. Health Concerns: Diabetes mellitus follow diabetic diet and monitor blood sugar as before Continue all home medications Plan of Treatment: Follow-up with primary care physician Follow-up with lead javascript engineer Dr. Chawla in 2 to 3 weeks Assessment: As above
--- NOTE | 2024-11-14 14:46 | MHC.CM.PN ---
PT MEDICALLY CLEARED FOR DC HOME W/RESUMP OF SHELTER CASE MANAGER HRS AND HOME O2, NO VNA SERVICES ORDERED, [facility] FOR BLS TRANSPORT AT 6PM
[2024-11-14 15:52] LABS: Glucose, Whole Blood 193 mg/dL (60-115)
--- NOTE | 2024-11-14 19:48 | PC.NURSE ---
1915 EMS here to berry picker patient, blood pressure right upper arm 203/84 and has been trending up daytime 180's systolic. RN notified DR. Layton who told RN to dc discharge and notify covering night hospitalist.
[2024-11-14 20:21] LABS: Glucose, Whole Blood 169 mg/dL (60-115)
[2024-11-14] MEDS: Enoxaparin Sodium 40 MG/0.4 ML SYRINGE SUBCUT (20:46)
[2024-11-14] MEDS: Pravastatin Sodium 40 MG TABLET PO (20:48)
[2024-11-14] MEDS: Insulin Glargine,Hum.rec.anlog 100 UNIT/ML 10 ML VIAL 14 UNIT SUBCUT (20:48)
[2024-11-14] MEDS: Acetaminophen 325 MG TABLET 650 MG PO (20:57)
[2024-11-15 00:54] VITALS: RESP 23; O2SAT 95
[2024-11-15] MEDS: 0.9 % Sodium Chloride Flush 3 ML SYRINGE IVFLUSH ×2 (01:15→09:09)
[2024-11-15 02:49] VITALS: BP 161/63; PULSE 60; RESP 23; TEMP 36.4; O2SAT 98
[2024-11-15] MEDS: Pantoprazole Sodium 20 MG TABLET.DR PO (05:27)
[2024-11-15] MEDS: Acetaminophen 325 MG TABLET 650 MG PO (06:39)
[2024-11-15 07:32] LABS: Glucose, Whole Blood 121 mg/dL (60-115)
[2024-11-15 08:00] VITALS: BP 151/73; PULSE 50; RESP 16; TEMP 36.4; O2SAT 100
--- NOTE | 2024-11-15 08:02 | PM.DS ---
DS: Providers Provider Date of Service: 11/15/24 Date of admission: 11/12/24 19:33 Date of discharge: 11/15/24 Primary care physician: Carmine Patel MD Admitting clinician: Jose Alfredo Ernst Attending physician on admission: Kassy Black Consults: 11/13/24 12:33 Consult to Pulmonology Routine Consulting Provider: [facility] Pulmonology Services Reason for consultation: Hypercarbic respiratory failure Has provider been notified: No Attending physician on discharge: [facility] Discharging clinician: Lizzette Vega DS: Diagnosis Discharge Diagnosis (1) NICO (obstructive sleep apnea): Status: Acute (2) Acute and chronic respiratory failure with hypercapnia: Status: Acute (3) Obesity hypoventilation syndrome: Status: Acute (4) COPD (chronic obstructive pulmonary disease): Status: Acute DS: Summary Hospital Course Hospital Course: Date of Service: 11/12/24 Attending physician on admission: Kassy Black Chief Complaint: Weakness, lethargy Pt is a 79-year-old female with a PMH significant for chronic hypoxic and hypercapnic respiratory failure /obesity hypoventilation syndrome on home 2L O2, pulmonary hypertension, HFpEF, insulin-dependent type 2 diabetes, HTN, HLD, GERD, and NICO on CPAP who presents to the ED with? lethargy and weakness since this morning. Pt is currently somnolent but arousable, wearing BiPAP. is alert and oriented and following commands, but unable to provide meaningful HPI which is instead obtained from family who was at bedside as well as chart and provider review. This morning pt was noted by family to be lethargic, not opening her eyes , following commands, or responding to questions. Pt was otherwise in her normal state of health yesterday without any reported nausea, vomiting, abdominal pain, SOB, cough, fever, or chills. Pt known to be noncompliant with CPAP at night. Often will take off her CPAP mask during the middle of the night. And according to has not been wearing CPAP at all for the past 2 nights. Pt was initially obtunded at time of arrival and in significant respiratory acidosis. pt has significantly improved with rescue BiPAP in the ED and now alert and oriented. Family reports was able to carry on a conversation with her a short time ago and she ate a sandwich. Family also note this is the fourth time she has had similar symptoms due to respiratory distress. Family would like to know about options for having a full-time DRIP BOX TENDER at nighttime to ensure CPAP compliance. In the ED pt was febrile at 100.6, tachypneic up to 30, and hypotensive as low as 91/49. Pt initially arrived on 3 L NC, but was transitioned to BiPAP due to respiratory acidosis. Labs were significant for leukopenia of 4.2, H&H 10.2/34.1, bicarb 35, and BNP elevated at 237. No significant electrolyte abnormalities. Renal function baseline. Hepatic function WNL. Ammonia WNL. initial VBG with pH 7.18, pCO2 105, and bicarb 40; repeat with improvement to pH 7.35, pCO2 63, and bicarb 36. UA negative for UTI. Tested negative for flu, COVID, RSV. CXR showed hepatomegaly but no evidence of acute cardiopulmonary process. CT of head negative for acute intracranial abnormality.?EKG demonstrated Normal sinus rhythm without evidence of significant ST elevations or depressions. during ED stay pt became hypotensive and ICU was contacted. Family, however wish to hold on intubation, and claim analyst recommended administration of Diamox and continuing BiPAP support for the night. Pt was treated with IVF, ceftriaxone, doxycycline, acetaminophen, DuoNebs, Solu-Medrol, bicarb, and acetazolamide. Pt will be admitted to the hospital for treatment and further evaluation of acute on chronic hypoxic and hypercarbic respiratory failure secondary to noncompliance with home CPAP. Hospital course: 79-year-old female with a PMH significant for chronic hypoxic and hypercapnic respiratory failure /obesity hypoventilation syndrome on home 2L O2, pulmonary hypertension, HFpEF, insulin-dependent type 2 diabetes, HTN, HLD, GERD, and NICO on CPAP who presents to the ED with? lethargy and weakness since this morning. Pt will be admitted to the hospital for treatment and further evaluation of acute on chronic hypoxic and hypercarbic respiratory failure secondary to noncompliance with home CPAP. Admitted due to Acute metabolic encephalopathy in the setting of acute on chronic hypoxic and hypercapnic respiratory failure due to noncompliance with BiPAP,On arrival obtunded with VBG pH 7.18, pCO2 105, and bicarb 40, treated with BiPAP and Diamox, VBG improved, encephalopathy resolved, hemodynamically stable, evaluated by prepress specialist they recommended to continue BiPAP at bedtime and during naps, no acute pneumonia, does not require treatment with antibiotics or steroids,Recommend outpatient follow-up prepress specialist and strongly recommend compliance with BiPAP. Given history of hypercapnia, recommended discontinuation of supplemental O2 unless O2 falls below 88%. She is currently maintaining oximetry 95-100% on room air. Follow-up with prepress specialist and primary care. HFpEF no acute exacerbation noted recommend to continue Coreg and Lasix Insulin-dependent type 2 diabetes, noted to have stable blood sugars continue Lantus, diabetic diet HTN BP resume losartan and Coreg uncontrolled likely secondary to steroid use. HLD continue pravastatin. Time Attestation Discharge Coordination Time (in mins): 45 Quality: Safe Use of Opioids Does Pt have an Active Cancer Diagnosis on the Problem List?: No Quality: Stroke Does the patient have a stroke diagnosis?: No Physical Exam Vital Signs: Vital Signs: Last Vital Signs Temp 97.5 F 11/15/24 02:49 Pulse 60 11/15/24 02:49 Resp 23 H 11/15/24 02:49 BP 161/63 H 11/15/24 02:49 Pulse Ox 98 11/15/24 02:49 O2 Del Method BiPAP 11/15/24 02:49 O2 Flow Rate 3 11/14/24 03:04 Oxygen Flow Rate 3 11/12/24 11:10 BMI result Body Mass Index 39.4 DS: Data Data Completed and Pending Completed studies during hospitalization [Text1]: Procedures Assistance with Respiratory Ventilation, Less than 24 Consecutive Hours, Continuous Positive Airway Pressure (07/06/24) Insertion of Endotracheal Airway into Trachea, Via Natural or Artificial Opening Endoscopic (07/12/21) Inspection of Lower Intestinal Tract, Via Natural or Artificial Opening Endoscopic (02/20/22) Resection of Gallbladder, Percutaneous Endoscopic Approach (07/12/21) Respiratory Ventilation, Less than 24 Consecutive Hours (07/12/21) Labs on day of discharge: Laboratory Results - last 24 hr 11/14/24 11/14/24 11/14/24 11:18 15:46 20:18 POC Glucose 179 H 193 H 169 H 11/15/24 07:27 POC Glucose 121 H Preliminary micro results at discharge 11/12/24 11:49 Blood Culture - Preliminary Blood - Venous No growth after 48 hours. 11/12/24 11:35 Blood Culture - Preliminary Blood - Venous No growth after 48 hours. Discharge Plan Discharge Anticipated Discharge Date/Time: 11/14/24 14:03 Patient Disposition: Home Health Service Discharge Diagnosis: Acute metabolic encephalopathy Acute on chronic hypoxic and hypercapnic respiratory failure Referrals: Carmine Patel MD [Primary Care Provider] - 1 Week Discharge Medications: New acetazolamide 250 mg Tablet 500 mg PO BID Qty: 180 0RF prednisone 20 mg tablet 20 mg PO DAILY Qty: 3 0RF Continued Janumet XR 50-1,000 mg tablet, ER multiphase 24 hr 1 tab PO DAILY insulin lispro [Humalog KwikPen Insulin] 100 unit/mL insulin pen 5 unit subcut DAILY pravastatin 40 mg tablet 40 mg PO BEDTIME ergocalciferol (vitamin D2) 1,250 mcg (50,000 unit) capsule 1,250 mcg PO MO albuterol sulfate 90 mcg/actuation HFA aerosol inhaler 2 puff inhalation Q6H PRN (Reason: Wheezing) famotidine 20 mg tablet 20 mg PO BID carvedilol 12.5 mg Tablet 12.5 mg PO BID Qty: 60 0RF Protocol: Hold for SBP/HR < HOLD for SBP < : 90 HOLD for HR < : 60 insulin glargine [Lantus U-100 Insulin] 100 unit/mL Solution 20 unit subcut BEDTIME Qty: 10 0RF losartan 50 mg tablet 50 mg PO DAILY Qty: 30 0RF pantoprazole 20 mg tablet,delayed release (DR/EC) 20 mg PO DAILY@0630 albuterol sulfate 2.5 mg /3 mL (0.083 %) solution for nebulization 2.5 mg inhalation Q6H PRN (Reason: Shortness Of Breath Or Wheezing) (DME) lancets [TRUEplus Lancets] 33 gauge misc See Rx Instructions topical .MEDSUPPLY Qty: 100 Rx Instructions: As directed furosemide 40 mg tablet 40 mg PO DAILY Discharge Orders: Discharge Order (Routine); Ordered 11/15/24 Ordered By: Lizzette Vega Diet: Diabetic diet Activity on Discharge: As tolerated Stand Alone Forms: Patient Portal Discharge page Print Language: Korean Care Plan Goals: Obstructive sleep apnea continue BiPAP 25/20 at night and during day for naps Strongly recommend compliance with BiPAP to prevent recurrent episodes of lethargy somnolence confusion and low oxygenation. Do not wear supplemental oxygen when resting. If your oxygen drops BELOW 88% with exertion, place oxygen on and remove once resting if oxygen improves above 88-90%. Use BIPAP DIRECTED by your prepress specialist Add acetazolamide 500mg twice daily to your daily medications which can help prevent recurrence of symptoms when combined with BIPAP compliance Take prednisone 20mg daily for 3 more days every morning Health Concerns: Diabetes mellitus follow diabetic diet and monitor blood sugar as before Continue all home medications Plan of Treatment: Follow-up with primary care physician Follow-up with prepress specialist Dr. Chawla in 2 to 3 weeks Assessment: As above
[2024-11-15] MEDS: acetaZOLAMIDE 250 MG TABLET 500 MG PO (08:58)
[2024-11-15] MEDS: predniSONE 20 MG TABLET PO (08:58)
[2024-11-15] MEDS: Losartan Potassium 50 MG TABLET PO (08:58)
[2024-11-15] MEDS: carvediloL 12.5 MG TABLET PO (09:04)
[2024-11-15] MEDS: Furosemide 40 MG TABLET PO (09:04)
[2024-11-15] MEDS: Famotidine 20 MG TABLET PO (09:08)
[2024-11-15 11:40] VITALS: BP 143/64; PULSE 59; RESP 16; O2SAT 91
[2024-11-15 12:00] VITALS: BP 131/62; PULSE 62; RESP 16; TEMP 36.6; O2SAT 100
[2024-11-15 12:57] LABS: Glucose, Whole Blood 162 mg/dL (60-115)
[2024-11-15] MEDS: Insulin Lispro 100 UNIT/ML 3 ML VIAL SUBCUT ×2 (13:21→16:59)
[2024-11-15 16:00] VITALS: BP 174/73; PULSE 67; RESP 16; TEMP 36.6; O2SAT 90
--- NOTE | 2024-11-15 16:01 | MHC.CM.PN ---
IMM 11/13/24 Patient is discharged to home with resumption of CARD TABLE ATTENDANT services. She will transport via BLS. print support specialist is scheduled 5:30pm
[2024-11-15 16:51] LABS: Glucose, Whole Blood 160 mg/dL (60-115)
== END 2024-11-15 18:35 | disposition home health service (06) | DRG 205 ==
LOC: HO.ED 19:36 → HO.EDOVER 19:38 → HO.IMC 11-13 18:24
PROVIDERS: Emergency Medicine; Hospitalist; Physician Assistant Medical; Admitting Provider Student in an Organized Health Care Education/Training Program; Emergency Provider Internal Medicine; PCP Internal Medicine; Visit Provider Physician Assistant
DX: E66.2 Morbid (severe) obesity with alveolar hypoventilation (principal); G93.41 Metabolic encephalopathy; J96.22 Acute and chronic respiratory failure with hypercapnia; J96.21 Acute and chronic respiratory failure with hypoxia; I50.32 Chronic diastolic (congestive) heart failure; E78.5 Hyperlipidemia, unspecified; E11.9 Type 2 diabetes mellitus without complications; I11.0 Hypertensive heart disease with heart failure; Z68.39 Body mass index [BMI] 39.0-39.9, adult; Z71.3 Dietary counseling and surveillance; I27.20 Pulmonary hypertension, unspecified; Z20.822 Contact with and (suspected) exposure to COVID-19; Z91.199 Patient's noncompliance with other medical treatment and regimen due to unspecified reason; Z87.891 Personal history of nicotine dependence; Z79.4 Long term (current) use of insulin; Z79.899 Other long term (current) drug therapy
CPT/HCPCS: 0241U; 36415; 70450; 71045; 80048; 80053; 80143; 80179; 80307; 81001; 82140; 82803; 82947; 83605; 83735; 83880; 84484; 85025; 85610; 87040; 93005; 94640; 94660; 99285; J0131; J0696; J1120; J1650; J2060; J2919; J7120

== ENCOUNTER → 2024-11-12 11:14 | Outpatient (BNV) | payer OTHER, SELFPAY | PROVIDERS: Admitting Provider Student in an Organized Health Care Education/Training Program; Emergency Provider Internal Medicine; PCP Internal Medicine; Visit Provider Internal Medicine Cardiovascular Disease | DX: R41.82 Altered mental status, unspecified (principal) | CPT/HCPCS: 93010 ==

== ENCOUNTER → 2024-11-12 11:47 | Outpatient (BNV) | payer OTHER, SELFPAY | PROVIDERS: Emergency Provider Internal Medicine; Visit Provider Internal Medicine Pulmonary Disease | DX: G47.33 Obstructive sleep apnea (adult) (pediatric) (principal); J96.22 Acute and chronic respiratory failure with hypercapnia; E66.2 Morbid (severe) obesity with alveolar hypoventilation; J44.9 Chronic obstructive pulmonary disease, unspecified | CPT/HCPCS: 99223 ==

== ENCOUNTER → 2024-11-12 11:48 | Outpatient (BNV) | payer OTHER, SELFPAY | PROVIDERS: Emergency Provider Emergency Medicine; Visit Provider Radiology Diagnostic Radiology | DX: R41.82 Altered mental status, unspecified (principal); I51.7 Cardiomegaly; J98.4 Other disorders of lung | CPT/HCPCS: 70450; 71045 ==

== ENCOUNTER → 2024-11-12 19:33 | Outpatient (BNV) | payer OTHER, SELFPAY | PROVIDERS: Admitting Provider Student in an Organized Health Care Education/Training Program; Emergency Provider Internal Medicine; Visit Provider Student in an Organized Health Care Education/Training Program | DX: J96.22 Acute and chronic respiratory failure with hypercapnia (principal) | CPT/HCPCS: 99233 ==

== ENCOUNTER 2024-11-24 11:12 | Outpatient (AMB) | payer OTHER, SELFPAY ==
--- NOTE | 2024-11-24 11:20 | A.OFFVIS_ITS ---
Vital Signs 11/24/24 11:23 Height 5 ft 3 in Weight 240 lb BMI 42.5 BP 140/72 H Blood Pressure Location Rt radial Position Sitting Pulse 75 Pulse Source Monitor Intake Visit Reasons: dr hodges/lv diastolic dysfunction Intake Note: F/up- : Santo/ Lv Diastolic Dysfunction Link Trainer Operator Required: Yes Link Trainer Operator Language: Veterinary Assistant Technician Name: [email or web address] Accompanied by: Significant Other Allergies No Known Allergies [No Known Allergies*] Allergy (Verified 11/12/24 11:13) Medication List - Last Reconciled 11/24/24 by Jake Veliz MD acetazolamide 500 mg (2 x 250 mg) PO BID albuterol sulfate 90 mcg/actuation 2 puffs inhalation Q6H PRN albuterol sulfate 2.5 mg inhalation Q6H PRN azithromycin 250 mg PO DAILY carvedilol 12.5 mg See Protocol PO BID cefuroxime axetil 250 mg PO BID ergocalciferol (vitamin D2) 1,250 mcg PO MO famotidine 20 mg PO BID fluconazole 150 mg PO DAILY furosemide 40 mg PO DAILY hydralazine 25 mg PO TID insulin glargine (Lantus U-100 Insulin) 20 units (0.2 mL) subcut BEDTIME insulin lispro (Humalog KwikPen (U-100) Insulin) 5 units subcut DAILY lancets (TRUEplus Lancets) As directed losartan 50 mg PO DAILY pantoprazole 20 mg PO DAILY@0630 pravastatin 40 mg PO BEDTIME prednisone 20 mg PO DAILY sitagliptin phos-metformin 50-1,000 mg ER (Janumet XR) 1 tab PO DAILY spironolactone 25 mg PO DAILY vibegron (Gemtesa) 75 mg PO DAILY HPI Comments Details: Pleasant 79-year-old lady who is here for follow-up. She has background history of hypertension, diabetes and diastolic heart failure. She also has obesity hypoventilation. She was seen in 11/06/2024 in the hospital when she presented with hypercarbic respiratory failure and acute congestive heart failure. She was diuresed and eventually discharged home. She is on supplemental oxygen currently and is saying that she wears it most of the time. She has been using CPAP at nighttime regularly. Her blood pressure is elevated and she is on multiple medicines currently. Does not look significantly volume overloaded. She has brace on the right leg because she had a fall and broke her ankle. This was conservatively treated and she did not undergo surgery. Denying any chest discomfort or shortness of breath. She is denying any acute issues currently. [facility] Medical History (Updated 11/24/24 @ 11:53 by Jake Veliz MD) Unspecified urinary incontinence NICO (obstructive sleep apnea) CHF (congestive heart failure) 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 indication of end stage renal disease in patient 6 to 64 years of age Lymphadenopathy Abdominal pain Bursitis of right hip Osteoarthritis of right hip Restrictive ventilatory defect Dyspnea on exertion Varicose veins of right lower extremity with inflammation Pneumonitis Pulmonary hypertension Hypertensive cardiovascular disease Acute hypoxic on chronic hypercapnic respiratory failure Acute on chronic respiratory failure with hypoxemia Obesity hypoventilation syndrome GERD (gastroesophageal reflux disease) Hypertension Diabetes mellitus COPD (chronic obstructive pulmonary disease) Surgical History S/P laparoscopic cholecystectomy (07/14/21) Family History Mother Diabetes Social History Household Members: Unknown / Unable to assess Household Members Other:: cousin Housing: Unknown / Unable to assess Do you presently have visiting nurse or other home services: No Unable to assess alcohol history related to: Unknown Alcohol intake: never Patient Tobacco Use Status: Former Tobacco user Tobacco use type: Cigarette Years Smoked: 20 Advance Directives Date on File: 02/22/22 service: No Current occupational status: unemployed and disabled Review of Systems Const Denies chills, Denies fatigue, Denies fever(s), Denies frequent falls, Denies weakness, Denies weight gain and Denies weight loss ENT Denies dizziness Card Denies chest pain, Denies leg edema, Denies lightheadedness, Denies palpitations, Denies dyspnea and Denies dyspnea on exertion Resp Denies cough, Denies dyspnea and Denies dyspnea on exertion GI Denies hematochezia Musc Denies abnormal gait, Denies muscle weakness, Denies numbness, Denies radiating pain into limb and Denies tingling Neuro Denies abnormal gait, Denies dizziness, Denies frequent falls, Denies numbness, Denies tingling and Denies weakness Endo Denies fatigue and Denies palpitations Physical Exam Vital Signs: Last Vital Signs Pulse 75 11/24/24 11:23 BP 140/72 H 11/24/24 11:23 BMI result Body Mass Index 42.5 GENERAL APPEARANCE: Morbidly obese. In no acute distress. Pleasant. NECK: no carotid bruit, no jugular venous distention. SKIN: no suspicious lesions, warm and dry. HEART: no murmurs, regular rate and rhythm. LUNGS: clear to auscultation bilaterally. ABDOMEN: soft, nontender. EXTREMITIES: no edema. Right leg in brace. PERIPHERAL PULSES: equal. NEUROLOGIC: No gross deficits, AAO X 3 Office Procedures EKG Details: Sinus rhythm 75 beats per minute, normal axis, poor R-wave progression and can not rule out anterior infarct, QTC 406 milliseconds. [id number], Complete Assessment & Plan Assessment & Plan (1) Chronic diastolic heart failure: Code(s): I50.32 - Chronic diastolic (congestive) heart failure Category: Medical (2) Hypertension: Code(s): I10 - Essential (primary) hypertension Category: Medical Plan Very pleasant 79 year female who is here for follow-up. She has background history of hypertension, diabetes and chronic diastolic heart failure. Clinically she appears to be euvolemic. Continue same dose of furosemide and acetazolamide. For blood pressure she is on carvedilol, hydralazine and losartan. She is also on spironolactone. Increasing the losartan to 50 mg twice a day because blood pressure is elevated. I am also sending a new script for her. She will see us back in 3 months in the office. Thank you for allowing me to participate in the care of your patient. Please feel free to contact me if you have any questions. Medications: Changed From losartan 50 mg PO DAILY 30 tabs 0RF To losartan 50 mg PO BID 120 tabs 4RF Coding Level of Care Code Est Pt Level 4 (31547) Diagnoses Chronic diastolic heart failure I50.32 Hypertension I10 CPT Codes EKG - CPT: 53389-[id number], Complete ([id number])
[2024-11-24 11:23] VITALS: BP 140/72; PULSE 75; BMI 42.5
--- OUTSIDE RECORDS SUMMARY | 2024-11-24 12:46 | XMS_ITS | Data Portability ---
Author Organization [facility] [facility] - [facility] Address [address] [place] [phone] Care Team Providers Care Continuous Conveyor Screen Drier Name Role Phone HIM [facility] OTHER [facility] OTHER Assessment Encounter Date Assessment Date Assessment LastModified by Organization Details LastModified Time 10/16/2024 10/16/2024 79 yo F with 1 day of headache, body aches, left arm pain. No F/C, SOB, CP, abd pain, weakness/numbnes s. No dysarthria. Unable to take NSAIDs given CKD. VS wnl. Left arm tender to palpation. Neuro exam grossly normal. Pt given tylenol 1g x 1 with [facility]. Okay to take 1g q6hr PRN. FUP with PCP. Precautions reviewed. Not available 10/20/2024 22:40:59 11/11/2024 11/11/2024 I provided real -time medical direction via phone for this encounter, and was available for additional phone based assistance as needed. I have reviewed and agree with the Assessment and Plan as documented by the Quilt Stuffer. We discussed the diagnostic uncertainty of home [...] to call 911- verbalized understanding of instruction [email or web address] Not available 11/11/2024 11:09:06 Plan of Treatment Reminders Order Date Submit Date Provider Last Modified By Organization Details Last Modified Time Details Appointments None recorded. Lab BMP, serum or plasma 2024 025 [facility] [address] [place] [address], [id number], 5 08:12:40 rapid flu (A+B) 2024 025 [email or web address] 0 Main - [facility], [address] [place] [address], [id number], 5 17:59:22 rapid SARS CoV 2 Ag, QL IA, respiratory specimen 2024 025 [email or web address] 0 Main - [facility], [address] [place] [address], [id number], 5 17:59:22 urinalysis, dipstick 2024 025 [email or web address] Main - [facility], [address] [place] [address], [id number], 5 16:56:12 BMP, serum or plasma 2024 025 [email or web address] Main - [facility], [address] [place] [address], [id number], 5 16:56:12 culture, urine 2024 025 AFSHIN [facility] (Centralized Electronic Ordering - All Locations), Patient Can Go To The Location Of Their Choice, [id number] 5 10:05:34 rapid flu (A+B) 2024 025 AFSHIN Main - [facility], [address] [place] [address], [id number], 5 19:51:19 glucose, fingerstick , blood 2024 025 [email or web address] Main - [facility], [address] [place] [address], [id number], 5 18:03:29 Referral None recorded. Procedures None recorded. Surgeries None recorded. Imaging electrocard iogram 2024 025 [email or web address] 0 Main - [facility], [address] [place] [address], [id number], 5 17:59:23 electrocard iogram 2024 025 [email or web address] Main - [facility], [address] [place] [address], [id number], 5 18:07:21 Medication Orders ondansetron HCl (PF) 4 mg/2 mL injection solution 2024 025 [email or web address] 0 [facility], [address] [place] [address], [id number], 5 17:59:21 lactated Ringers intravenous solution 2024 025 [email or web address] 0 [facility], [address] [place] [address], [id number], 5 17:59:21 ondansetron 4 mg disintegrat ing tablet 2024 025 [facility], [address] [place] [address], [id number], 5 09:13:59 sulfamethox azole 800 mg-trimetho prim 160 mg tablet 2024 025 [facility], [address] [place] [address], [id number], 5 11:07:13 Tylenol Extra Strength 500 mg tablet 2024 025 [email or web address] 7 [facility], [address] [place] [address], [id number], 5 20:55:03 Proventil HFA 90 mcg/actuati on aerosol inhaler 2024 025 [facility], [address] [place] [address], [id number], 5 13:00:53 ipratropium 0.5 mg-albutero l 3 mg (2.5 mg base)/3 mL nebulizatio n soln 2024 025 [facility], [address] [place] [address], [id number], 17:16:48 azithromyci n 250 mg tablet 2024 025 [facility], [address] [place] [address], [id number], 18:04:54 azithromyci n 250 mg tablet 2024 025 [facility], [address] [place] [address], [id number], 13:00:49 Patient TargetsNo targets recorded. Patient InstructionsNo instructions recorded. Reason for Referral None Reported. Results Created Date Observation Date Name Description Value Unit Range Abnormal Flag Note LastModifiedBy Organization Detail LastModifiedTime 10/03/1910/03/2024 rapid flu (A+B) Flu negati ve Not Available Main - [facility] [address] [place] [address], [id number], 10/03/2024 17:09:58 10/03/19 25 10/03/2024 gluco se, finge rstic k, blood Blood Glucose: mg/dl 187 Not Available Main - [facility] [address] [place] [address], [id number], 10/03/2024 17:16:05 10/18/19 25 10/21/2024 URINE CULTU RE,CO MPREH ENSIV E urine culture,comp rehensive Final report abnormal Not Available [facility] ([facility]) [address] [facility], [place], [address], 10/21/2024 12:44:16 10/18/19 25 10/21/2024 URINE CULTU [...] compl ex, and Klebs iella aerog chin. Rankin irwin that initi ally test susce ptibl e may becom e resis tant withi n a few days after initi ation of thera py. Testi ng subse quent isola irwin may be warra nted if clini annette indic ated. (CLSI M100- Ed33) Great er than 100,0 00 colon y formi ng units per mL Not Available [facility] ([facility]) [address] [facility], [place], [address], 10/21/2024 12:44:16 10/18/19 25 10/21/2024 URINE CULTU [...] im/Mandel lfa S Not Available [facility] ([facility]) [address] [facility], [place], [address], 10/21/2024 12:44:16 11/11/19 25 11/11/2024 rapid SARS CoV 2 Ag, QL IA, respi rator y speci men rapid SARS CoV 2 Ag, QL IA, respiratory specimen negati ve Not Available [facility] [address] [place], [address], 11/11/2024 11:05:36 11/11/19 25 11/11/2024 rapid flu (A+B) Flu negati ve Not Available Main - [facility] [[email or web address] ed [address] [place] [address], [id number], 11/11/2024 11:05:35 10/03/19 25 10/03/2024 elect rocar diogr am No observ ation record ed. [email or web address] Main - [facility] [[email or web address]]ed [address] [place] [address], [address], 10/03/2024 18:07:20 11/11/19 25 11/12/2024 elect rocar diogr am No observ ation record ed. [facility] - [facility] [[email or web address]]ed [address] [place] [address], [phone], 11/12/2024 08:13:36 Result Notes None recorded. Procedures Surgical History None recorded. Imaging Results Imaging Date Name Status LastModified by Organization Details LastModified Time 10/03/2024 electrocardiogram completed [facility] - [facility] [[email or web address]]ed [address] [place] [address], [address], 10/03/2024 18:07:20 11/12/2024 [facility]ogram [facility] - [facility] [[email or web address]ed [address] [place] [address], [address], 11/12/2024 08:13:36 Procedure Notes None recorded. Medical Equipment None Reported. Allergies Allergen ID Allergen Name Allergen Category Reaction Reaction Severity Criticality Documentation Date Start Date Code Code System Note Provider Name and Address Organization Details Recorded Time 28011 lisinopri l medicatio n Not available Not available Not available 10/03/2024 56050 RxNorm Not Available [facility] - production 14:54:18 [...] Not Available Not Available N ot Available prednisone 20 mg tablet TAKE 1 TABLET BY MOUTH EVERY DAY FOR 3 DAYS active Not Available Not Available No t Available acetazolamid e 250 mg tablet TAKE 2 TABLETS BY MOUTH TWICE DAILY active Not Available Not Available No t Available hydralazine 25 mg tablet TAKE ONE [...] Available ondansetron 4 mg disintegrati ng tablet TAKE 1 TO 2 TABLETS BY MOUTH EVERY 8 HOURS NEEDED FOR NAUSEA AND VOMITING active Not Available Not Available No t [...] 5 99.3 [degF] 97 % 97 % 728098 g 73 /min 16 /min 146 mm[Hg] 81 mm[Hg] Not Available [facility] [place] 5 16:44:11 Date Recorded Heart rate Body weight Body height Body temperature Oxygen saturation Oxygen saturation in Arterial blood by Pulse oximetry Inhaled oxygen flow rate Respiratory rate Systolic blood pressure Diastolic blood pressure Provider Name and Address Organization Details Last Updated DateTime 5 73 /min 661090 g 160.02 cm 99 [degF] 98 % 98 % 2 L/min 18 /min 155 mm[Hg] 81 mm[Hg] Not Available [facility] [place] 5 20:52:30 Date Recorded Heart rate Respiratory rate Oxygen saturation Oxygen saturation in Arterial blood by Pulse oximetry Inhaled oxygen flow rate Body weight Body height Body temperature Systolic blood pressure Diastolic blood pressure Provider Name and Address Organization Details Last Updated DateTime 5 60 /min 18 /min 100 % 100 % 2 L/min 370134 g 160.02 cm 98.7 [degF] 194 mm[Hg] 91 mm[Hg] Not Available [facility] 5 15:59:16 Date Recorded Body temperature Oxygen saturation Oxygen saturation in Arterial blood by Pulse oximetry Inhaled oxygen flow rate Body weight Body height Respiratory rate Heart rate Systolic blood pressure Diastolic blood pressure Provider Name and Address Organization Details Last Updated DateTime 5 98.4 [degF] 95 % 95 % 2 L/min 115238. 04 g 160.02 cm 16 /min 80 [...] SNOMED-CT Code Diagnosis ICD10 Code Diagnosis Note [id number] Bautista Cueva MD Main - [facility] [address] [place] [phone] 10/23/2023 17:01:07 10/23/2023 22:32:23 Loose stool [id number] R19.5 [id number] [facility] [address] [place] [phone] 01/11/2024 10:20:30 01/11/2024 16:25:20 Muscle weakness 05772176 M62.81 [id number] David Retana MD Main - [facility] [address] [place] [phone] 01/24/2024 13:12:58 01/24/2024 22:56:49 Bilateral lower limb edema 617797029 R60.0 Acute on chronic. Patient with daily [...] which to seek higher level of care. [id number] JOSE LUIS GERONIMO MD Main - [facility] [address] [place] [phone] 10/03/2024 16:28:44 10/03/2024 22:24:33 Contusion of orbital tissue of right eye [id number] 1304101 S05.11XA Evaluation in the field was performed by my tip cementer colleague, as noted above, I provided real-time direction and supervisio n for this visit. Romansh interprete r was used to communicat e [...] room air. Low-grade temperatur e, but the tip cementer reports that the room is very warm.Exam: Small bruising and swelling under the right eye and temporal area, with no periorbita l ecchymosis ( raccoon eyes ). No tenderness to palpation over the affected area or the bridge of the nose. Normal eye movement with no reported pain. The tip cementer reports rhonchi on lung examinatio n. No [...] exac erbation of chronic obstructive pulmonary disease [id number] J44.1 Patient denies shortness of breath, cough, or upper respirator y infection symptoms. The tip cementer reported rhonchi on lung examinatio n. On her medication list, Albuterol inhaler and nebulizer are listed, but the patient denies having or using either. Flu and Covid negative-G chuyen her history of COPD with chronic oxygen requiremen t, Duoneb x1 was administer ed.A prescripti on for an Albuterol MDI with spacer was sent to her pharmacy.- A prescripti on for Azithromyc in was also sent to her pharmacy, with the first dose administer ed by the tip cementer. -Due to the lack of wheezing, her stable oxygen saturation on chronic oxygen, and her history of diabetes requiring insulin, the decision was made not to start Prednisone to avoid hyperglyce daniela.-Red flags were discussed with the patient. [id number] DA MUÑOZ MD Main - [address] [address] 10/16/2024 20:52:29 10/21/2024 15:57:41 Headache 23208932 R51.9 Pain in left arm 4544506 00 M79.602 [id number] Mar Jiménez MD Main - [address] [address] 10/18/2024 15:45:59 10/21/2024 16:36:29 Altered mental status 485889394 R41.82 Evaluation in the field was performed by my tip cementer colleague, as noted above, I provided real-time direction and supervisio n for this visit. 79 yo F PMHx HTN, CAD, T2DM, COPD on 2L home O2 p/w ongoing ANGELO, body aches for which she was seen yesterday by [facility]. Repeat visit requested by son as pt awoke this AM and felt confused, spontaneou sly resolved. Triage note reports dizziness however pt denies this. ANGELO resolved. Endorsed urinary frequency without dysuria, fevers, hematuria. On tip cementer eval VS wnl, exam wnl including A+O [...] endorsed ongoing L shoulder/a rm pain. On tip cementer exam not swelling or deformity, rotator cuff [...] shortness of breath, cough, chest pain, fever. [id number] Sayra Arevalo MD Main - [address] [phone] 10/21/2024 15:55:58 10/21/2024 17:31:04 Urinary symptoms [id number] R39.9 [id number] Luz Love MD [address] [phone] 11/11/2024 11:01:33 11/12/2024 12:20:21 Nausea, vomiting and diarrhea 5483712 R11.2 R19.7 labs not concerning / given [...] Elizondo Member ID Guarantor Name 10/03/2024 1 [facility] [employer] - DOS ON OR AFTER 2022 - DUAL ELIGIBLE - CORRECTION OPTIONS AND ONE CARE (MEDICARE REPLACEMENT/ADV ANTAGE - HMO) Magalie Stein [id number] Magalie Stein 10/16/2024 1 [employer]IANCE - DOS ON OR AFTER 2022 - DUAL ELIGIBLE - CORRECTION OPTIONS AND ONE CARE (MEDICARE REPLACEMENT/ADV ANTAGE - HMO) Magalie Stein [id number] Magalie Stein 10/18/2024 1 [facility] [employer] - DOS ON OR AFTER 2022 - DUAL ELIGIBLE - CORRECTION OPTIONS AND ONE CARE (MEDICARE REPLACEMENT/ADV ANTAGE - HMO) Magalie Stein [id number] Magalie Stein 10/21/2024 1 [employer] CARE [employer]IANCE - DOS ON OR AFTER 2022 - DUAL ELIGIBLE - CORRECTION OPTIONS AND ONE CARE (MEDICARE REPLACEMENT/ADV ANTAGE - HMO) Magalie Stein [id number] Magalie Stein 11/11/2024 1 [facility] - DOS ON OR AFTER 2022 - DUAL ELIGIBLE - CORRECTION OPTIONS AND ONE CARE (MEDICARE REPLACEMENT/ADV ANTAGE - HMO) Magalie Stein [id number] Magalie Stein Notes Date Note Type Note [...] PMH Reviewed at 10/03/2024:54 Allergies Reviewed at 10/03/2024 - 14:54 Comments: CRC RN did not require any additional information to process this visit. Quilt Stuffer Organization Information for Linda Leyva Legal Name: [employer]? Address: [address] [place] [address], Restorative Care Technician: Too Welch MD CLNO No.: [id number] Quilt Stuffer POC Test Results from Linda Leyva Rapid influenza antigen (17:29:49) Flu: - Attachments uploaded as part of this test result can be found under Documents section. EKG (17:59:36) EKG test performed. Attachments uploaded as part of this test result can be found under Documents section. ................... ................... ................... ................... ................... ................... ................... ........ Quilt Stuffer Note From Linda Leyva: Disp for the 79 year old female cc head/eye injury. Upon arrival patient found sitting in recliner in living room. Patient is Romansh speaking only' pediatric physical therapy assistant used during visit. Patient is IQBAL x 4 GCS x 15, patient does not know the month or year and was unsure of her street address. Patient reports she is unable to read or write. Patient appeared to answer questions appropriately for pediatric physical therapy assistant. Patient denies chest pain, denies shortness of breath, denies abdominal pain, denies n/v/d, denies head pain, denies changes to vision, complains of bilateral leg weakness. Patient's son called for appointment due to patient falling on 09/17/24 and hitting her right side of face. Patient refused to go to the ER after injury. Son reported increased swelling at right tenriism and around right lower eye. Patient states [...] blood work and I.V. access. Consulted with [facility] Dr. Geronimo. Dr. Geronimo ordered DuoNeb updraft [...] the patient of red flags/risk factors with pediatric physical therapy assistant. Patient understood. Dr. Geronimo she will send request to her PCP for physical therapy referral. Dr. Geornimo advised patient she can take her albuterol inhaler tonight every 4-6 hours as needed and to continue antibiotics tomorrow as prescribed. All times approx. ................... ................... ................... ................... ................... ................... ................... ........ [facility] Consulted: Jose Luis Geronimo ................... ................... ................... ................... ................... ................... ................... ........ Disposition: Fulfilled JOSE LUIS GERONIMO MD [address] [facility], [place], [address], MAKAYLA - [facility] 10/03/2024 21:37:27 10/16/2024 text/html HPI: Call returned [...] for our walk in today. Agrees to [employer] cesar medellin. Confirmed Demographics and allergies. ................... ................... ................... ................... ................... ................... ................... ........ CRC Nurse Triage Notes (Byron Acosta - RN): Chief Complaints: Fatigue, Headache, Joint pain/swelling PMH: Coronary Artery Disease, Hypertension, COPD/Asthma, Diabetes Mellitus Type 2, Urinary Tract Infections (UTI), Chronic Kidney Disease PMH Reviewed at 10/16/2024 15:42 Allergies Reviewed at 10/16/2024 - 15:42 Comments: HPI reviewed by this RN, no further information needed to process visit -H. Acosta, RN ................... ................... ................... ................... ................... ................... ................... ........ Quilt Stuffer Note From Joselito Rogers: [facility] visit for female pt. Pt is swazi speaking only and pediatric physical therapy assistant was used. Pt presents complaining of headache [...] afebrile. Lung sounds clear bilaterally. Consulted with [facility] Dr Muñoz and reviewed dosage for tylenol. Pt then stated had taken some at 3 pm and would take more if she thought she needed it . Reviewed red flags for ED. Pt education provided. ................... ................... ................... ................... ................... ................... ................... ........ [facility] Consulted: Da Muñoz ................... ................... ................... ................... ................... ................... ................... ........ Disposition: Fulfilled DA MUÑOZ MD [address] [facility], [place], [phone], [employer] [facility] 10/20/2024 22:41:05 10/18/2024 text/html CRC Nurse Triage [...] Allergies Reviewed at 10/18/2024 - 14:00 Comments: Locksmith verified the member's name//address and phone number. [...] declined. Would like to be evaluated by [facility]. Red flags reviewed. Explained if member s/s worsen or change family needs to call emergency services. Education provided on the response time and the member was advised to monitor reported s/s and seek emergency treatment if needed. Quilt Stuffer Organization Information for Efrain Oakley [employer] Legal Name: [employer]? Address: [address] [place] [address], [place] [address], Restorative Care Technician: Too ORELLANA No.: [id number] Quilt Stuffer POC Test Results from Efrain Oakley - ALS Urine Dipstick (16:02:19) Urine leukocytes: 70+ PORSCHE Urine nitrites: - NIT Urine urobilinogen: 0.2-3.5 URO Urine protein: 15+-0.15 PRO Urine pH: 7.0 pH Urine blood: - BLO Urine specific gravity: 1.010 SG Urine ketones: 5+-0.5 KET Urine bilirubin: - RICO Urine glucose: - GLU ................... ................... ................... ................... ................... ................... ................... ........ Quilt Stuffer Note From Efrain Oakley: AZTan makes pt contact. She is seated in a chair in her living room and she turns and greets [facility]. She is generally well appearing, wearing a NC, and making good eye contact. No stridor or sonorous respirations are heard, no facial droop or one-sided weakness are observed, and she is not bleeding anywhere. Pt is Romansh-speaking only, so pediatric physical therapy assistant services via cell phone are attempted. Pt has difficulty hearing and understanding the pediatric physical therapy assistant, so she calls her son on FaceTime and he provides hx and translation services. Pt endorses waking up this morning feeling confused and w/ L arm pain. She is denying cp, sob, n/v/d, and no recent falls or trauma to her head or UEs. Son tells [facility] pt has been sleeping most of the [...] She consents to evaluation and treatment today. [facility] obtains vital signs and pt is assessed. Lung sounds are clear and nothing remarkable is noted upon physical exam. Urine sample is obtained via clean catch for culture and dip stick analysis. [facility] contacts [facility] and discusses the above. [facility] orders urine culture and a bmp. [facility] is unable to gain IV access for bmp. [facility] gives instructions for family to take pt to the ED if her confusion persists and decision about medication for possible UTI will be made after culture returns. Pt and family thank [facility] for coming. [facility] is clear. Report completed by WINSTON Oakley [id number]. [facility] Lab Orders: urinalysis, dipstick: Performed BMP, serum or plasma: Not Performed Comment: Unable to obtain adequate sample amount. ................... ................... ................... ................... ................... ................... ................... ........ [facility] Consulted: Mar Jiménez ................... ................... ................... ................... ................... ................... ................... ........ Disposition: Fulfilled Mar Jiménez MD [address] [facility], [place], [phone], MAKAYLA [employer] [facility] 10/18/2024 21:29:19 11/11/2024 text/html CRC Nurse Triage Notes (Maame [...] pain. Non-radiating. Diarrhea x1. Denies fever, or dizziness/lighthead edness. Education provided on the response time and the member was advised to monitor reported s/s and seek emergency treatment if needed. Quilt Stuffer Organization Information for Guanakito Velahelio Legal Name: [facility] Transportation[employer]re ss: [address] [place] [address], [place] [address], Medical Director: Geo [facility] No.: [id number] Quilt Stuffer POC Test Results from Guanakito Vela [facility] (10:57:11)pH: 7.38 pH unitspCO2: 61.2 mmHgpO2: 37.6 mmHgNa: 141 mmol/LK: 4.3 mmol/LiCa: 1.16 mmol/LCl: 96 mmol/LTCO2: 35.7 mEq/LHct: 36 %Hb: 12.2 g/dLGlu: 121 mg/dLLac: 1.6 mmol/LCr: 0.58 mg/dLBUN: 14 mg/dLA mmol/LHCO3: 36.5 mmol/L Rapid COVID antigen (10:57:12)COVID: - Rapid influenza antigen (10:57:13)Flu: - EKG (11:16:39) EKG test performed. Attachments uploaded as part of this test result can be found under Documents section. ................... ................... ................... ................... ................... ................... ................... ........ Quilt Stuffer Note From Guanakito Vela: This 79-year-old female [...] questions and is agreeable to this plan. [facility] Lab Orders: BMP, serum or plasma: Performed rapid flu (A+B): Performed rapid SARS CoV 2 Ag, QL [place], respiratory specimen: Performed [facility] Medication Orders: ondansetron HCl (PF) 4 mg/2 mL injection solution: Administered lactated Ringers intravenous solution: Administered ................... ................... ................... ................... ................... ................... ................... ........ [facility] Consulted: Luz Love ................... ................... ................... ................... ................... ................... ................... ........ Disposition: Fulfilled SEGMD: As above: Patient denies any known sick contacts, fever, chills, diaphoresis/dizzine ss or syncope. Luz Love MD [address] [facility],[address] [facility], [place], [address], MAKAYLA - [employer], KAT 11/12/2024 13:27:51 OBGyn Episode No OBEpisode recorded.
--- OUTSIDE RECORDS SUMMARY | 2024-11-24 12:46 | XMS_ITS | Clinical Summary ---
Author Organization [facility] Address [address] [place] [address] Phone Care Team Providers Care Inserter Promotional Item Name Role Phone Carmine Patel MD Primary [...] every morning 04/04/2023 Active ergocalciferol 1.25 MG (16548 UT) capsule 50,000 Units 1 (one) time [...] Visit [facility] [address] [place] [phone] Rubin Cordero MD [address] [facility] [address] [place] [address] Health Maintenance Due Date Last [...] patient's age to complete this topic Insurance [facility] ([id number]) [facility] ([id number]) ZUHAIR ROBLERO [id number] Care Teams Inserter Promotional Item Relationship Specialty Start Date End Date Carmine Patel MD PCP - General Internal Medicine 05/02/21
--- OUTSIDE RECORDS SUMMARY | 2024-11-24 12:46 | XMS_ITS | Continuity of Care Document ---
Author Organization [employer] [facility] [place] - [facility] Address [address] [place] [phone] Care Team Providers Care Die Forger Name Role Phone HIM [facility] OTHER [phone] Assessment Encounter Date Assessment Date Assessment LastModified by Organization Details LastModified Time 11/11/2024 11/11/2024 I provided real -time medical direction via phone for this encounter, and was available for additional phone based assistance as needed. I have reviewed and agree with the Assessment and Plan as documented by the Laboratory Analyst. We discussed the diagnostic uncertainty of home [...] to call 911- verbalized understanding of instruction [email or web address] Not available 11/11/2024 11:09:06 Plan of Treatment Reminders Order Date Submit Date Provider Last Modified By Organization Details Last Modified Time Details Appointments None recorded. Lab BMP, serum or plasma 2024 025 AFSHIN [facility], [address] [place] [address], [phone], 5 08:12:40 rapid flu (A+B) 2024 025 [email or web address] 0 [facility], [address] [place] [address], [phone], 5 17:59:22 rapid SARS CoV 2 Ag, QL IA, respiratory specimen 2024 025 [email or web address] 0 [facility], [address] [place] [address], [phone], 17:59:22 Referral None recorded. Procedures None recorded. Surgeries None recorded. Imaging electrocard iogram 2024 025 [email or web address] 0 [facility], [address] [place] [address], [phone], 5 17:59:23 Medication Orders ondansetron HCl (PF) 4 mg/2 mL injection solution 2024 025 [email or web address] 0 [facility], [address] [place] [address], [id number], 17:59:21 lactated Ringers intravenous solution 2024 025 [email or web address] [id number] 0 [facility], [address] [place] [address], [id number], 5 17:59:21 ondansetron 4 mg disintegrat ing tablet 2024 025 [facility], [address] [place] [address], [id number], 09:13:59 Patient TargetsNo targets recorded. Patient InstructionsNo instructions recorded. Reason for Referral None Reported. Results Created Date Observation Date Name Description Value Unit Range Abnormal Flag Note LastModifiedBy Organization Detail LastModifiedTime 11/11/1911/11/2024 rapid SARS CoV 2 Ag, QL IA, respi rator y speci men rapid SARS CoV 2 Ag, QL IA, respiratory specimen negati ve Not Available [facility] ed [address] [place] [address], [phone], 11/11/2024 11:05:36 11/11/19 25 11/11/2024 rapid flu (A+B) Flu negati ve Not Available [facility] ed [address] [place] [address], [phone], 11/11/2024 11:05:35 11/11/19 25 11/12/2024 abraham milesgr am No observ ation record ed. [facility] [address] [place] [address], [phone], 11/12/2024 08:13:36 Result Notes None recorded. Procedures Surgical History None recorded. Imaging Results Imaging Date Name Status LastModified by Organization Details LastModified Time 11/12/2024 electrocardiogram completed [facility] [address] [place] [address], [phone], 11/12/2024 08:13:36 Procedure Notes None recorded. Medical Equipment None Reported. Allergies Allergen ID Allergen Name Allergen Category Reaction Reaction Severity Criticality Documentation Date Start Date Code Code System Note Provider Name and Address Organization Details Recorded Time 78413 lisinopri l medicatio n Not available Not available Not available 10/03/2024 34230 RxNorm Not Available [facility] - production 14:54:18 [...] [degF] 95 % 95 % 2 L/min 358613. 04 g 160.02 cm 16 /min 80 [...] SNOMED-CT Code Diagnosis ICD10 Code Diagnosis Note [id number] DA MITCHELL MD [address] [phone] 10/16/2024 20:52:29 10/21/2024 15:57:41 Headache 13109538 R51.9 Pain in left arm 6506247 00 M79.602 [id number] Mar Jiménez MD [address] [phone] 10/18/2024 15:45:59 10/21/2024 16:36:29 Altered mental status 748064463 R41.82 Evaluation in the field was performed by my supervisor concrete stone fabricating colleague, as noted above, I provided real-time direction and supervisio n for this visit. 79 yo F PMHx HTN, CAD, T2DM, COPD on 2L home O2 p/w ongoing ANGELO, body aches for which she was seen yesterday by [facility]. Repeat visit requested by son as pt awoke this AM and felt confused, spontaneou sly resolved. Triage note reports dizziness however pt denies this. ANGELO resolved. Endorsed urinary frequency without dysuria, fevers, hematuria. On supervisor concrete stone fabricating eval VS wnl, exam wnl including A+O [...] endorsed ongoing L shoulder/a rm pain. On supervisor concrete stone fabricating exam not swelling or deformity, rotator cuff [...] shortness of breath, cough, chest pain, fever. [id number] Sayra Arevalo MD [facility] [address] [place] [phone] 10/21/2024 15:55:58 10/21/2024 17:31:04 Urinary symptoms [id number] R39.9 [id number] Luz Love MD [facility] [address] [place] [phone] 11/11/2024 11:01:33 11/12/2024 12:20:21 Nausea, vomiting and diarrhea 9755599 R11.2 R19.7 labs not concerning / given [...] Elizondo Member ID Guarantor Name 11/11/2024 1 [facility] - DOS ON OR AFTER 2022 - DUAL ELIGIBLE - RETIREMENT OPTIONS AND ONE CARE (MEDICARE REPLACEMENT/ADV ANTAGE - HMO) Magalie Stein [id number] Magalie Stein Notes Date Note Type Note [...] s/s and seek emergency treatment if needed. Laboratory Analyst Organization Information for [facility] RENEEAaronhelio Legal Name: [facility] TransportationAddr ess: [address] [place] [address], [place] [address], Medical Director: Geo Galvin [facility] No.: [id number] Laboratory Analyst POC Test Results from [facility] (10:57:11)pH: 7.38 pH unitspCO2: 61.2 mmHgpO2: 37.6 [...] .................. .................. .................. .................. .................. .................. ............... Laboratory Analyst Note From [facility]: This 79-year-old female [...] questions and is agreeable to this plan. [facility] Lab Orders: BMP, serum or plasma: Performed rapid flu (A+B): Performed rapid SARS CoV 2 Ag, QL IA, respiratory specimen: Performed [facility] Medication Orders: ondansetron HCl (PF) 4 mg/2 mL injection solution: Administered lactated Ringers intravenous solution: Administered .................. .................. .................. .................. .................. .................. .................. ............... [facility] Consulted: Luz Love .................. .................. .................. .................. .................. .................. .................. ............... Disposition: Fulfilled SEGMD: As above: Patient denies any known sick contacts, fever, chills, diaphoresis/dizzin ess or syncope. Luz Love MD [address] [facility],[address] [facility], [place], [phone], [employer], [employer] 11/12/2024 13:27:51 OBGyn Episode No OBEpisode recorded.
== END 2024-11-24 11:56 | disposition home or self-care (01) ==
PROVIDERS: PCP Internal Medicine; Visit Provider Internal Medicine Cardiovascular Disease
DX: I50.32 Chronic diastolic (congestive) heart failure (principal); I10 Essential (primary) hypertension
CPT/HCPCS: 93010; 99214

== ENCOUNTER → 2024-11-24 11:12 | Outpatient (BNVA) | payer OTHER, SELFPAY | PROVIDERS: PCP Internal Medicine; Visit Provider Internal Medicine Cardiovascular Disease | DX: I11.0 Hypertensive heart disease with heart failure (principal); I50.32 Chronic diastolic (congestive) heart failure; R94.31 Abnormal electrocardiogram [ECG] [EKG] | CPT/HCPCS: 93005; 99212 ==

== ENCOUNTER 2024-12-25 09:21 | Outpatient (AMB) | payer OTHER, SELFPAY ==
[2024-12-25 09:42] VITALS: BP 138/80; PULSE 69; O2SAT 96
--- NOTE | 2024-12-25 09:42 | MHC.OFFVIS ---
Vital Signs 12/25/24 09:42 Height 5 ft 3 in BP 138/80 Blood Pressure Location Rt brachial Position Sitting Pulse 69 Pulse Source Doppler Pulse Oximetry (%) 96 Oxygen Delivery Method Room Air Comment Wheelchair bound Intake Visit Reasons: Obstructive sleep apnea Mirror Maker Required: Yes Mirror Maker Name: Kaylynn Jain Tresa Allergies No Known Allergies [No Known Allergies*] Allergy (Verified 12/25/24 09:48) HPI HPI Obstructive sleep apnea: Details: 79-year-old lady, former smoker, quit over 30 years prior, with underlying history morbid obesity, NICO/obesity hypoventilation syndrome diastolic dysfunction followed for severe NICO on BiPAP therapy . Patient has been trying to use her BiPAP machine, however it turns off and now with so into the night. Patient has contacted her underlying medical equipment company and is waiting for replacement or repair. She denies recent exacerbations. She is still not ambulatory and not able to perform a 6 minute walk test. [facility] Medical History (Updated 11/24/24 @ 11:53 by Jake Veliz MD) Unspecified urinary incontinence NICO (obstructive sleep apnea) CHF (congestive heart failure) 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 indication of end stage renal disease in patient 6 to 64 years of age Lymphadenopathy Abdominal pain Bursitis of right hip Osteoarthritis of right hip Restrictive ventilatory defect Dyspnea on exertion Varicose veins of right lower extremity with inflammation Pneumonitis Pulmonary hypertension Hypertensive cardiovascular disease Acute hypoxic on chronic hypercapnic respiratory failure Acute on chronic respiratory failure with hypoxemia Obesity hypoventilation syndrome GERD (gastroesophageal reflux disease) Hypertension Diabetes mellitus COPD (chronic obstructive pulmonary disease) Surgical History S/P laparoscopic cholecystectomy (07/14/21) Family History Mother Diabetes Social History Household Members: Unknown / Unable to assess Household Members Other:: cousin Housing: Unknown / Unable to assess Do you presently have visiting nurse or other home services: No Unable to assess alcohol history related to: Unknown Alcohol intake: never Patient Tobacco Use Status: Former Tobacco user Tobacco use type: Cigarette Years Smoked: 20 Advance Directives Date on File: 02/22/22 service: No Current occupational status: unemployed and disabled Review of Systems Const Denies daytime sleepiness, Denies excessive sweating, Denies fatigue, Denies fever(s), Denies lethargy, Denies malaise, Denies night sweats, Denies snoring and Denies weight loss Eyes Denies blurry vision and Denies itchy eyes ENT Denies nasal congestion, Denies post nasal drip, Denies sinus pain, Denies sinus pressure and Denies other ( Thrush) Card Denies chest pain, Denies pedal edema, Denies dyspnea, Denies orthopnea and Denies paroxysmal nocturnal dyspnea Resp Denies cough, Denies hemoptysis, Denies excessive phlegm production, Denies dyspnea, Denies snoring and Denies wheezing GI Denies abdominal pain and Denies heartburn Musc Denies myalgias, Denies arthralgias and Denies joint swelling Skin/Breast Denies rash Neuro Denies memory loss and Denies seizure-like activity Psych Denies abnormal sleep pattern, Denies anxiety and Denies memory loss Endo Denies excessive sweating, Denies fatigue and Denies heat intolerance Ralph/Lymph Denies easy bruising Aller/Immun Denies itchy eyes, Denies seasonal rhinorrhea and Denies wheezing Physical Exam Vital Signs: Last Vital Signs Pulse 69 12/25/24 09:42 BP 138/80 12/25/24 09:42 Pulse Ox 96 12/25/24 09:42 Oxygen Delivery Method Room Air 12/25/24 09:42 Const General: no acute distress and alert Nutritional Appearance: obese Orientation/consciousness: Other orientation findings ( oriented) HEENT Head: Yes atraumatic Eyes General: appearance normal, both eyes and all related structures Sclerae: sclerae normal EOM: EOMs intact bilaterally Neck Neck: Yes supple Lymphatic: no lymphadenopathy noted Resp Effort & Inspection: normal respiratory effort and no use of accessory muscles Auscultation: clear to auscultation bilaterally Cardio Rate: regular rate Rhythm: regular rhythm Heart sounds: no gallops, no murmurs and no rubs Skin General skin exam: other ( warm) Extrem General: No clubbing, No cyanosis and No edema Assessment & Plan Assessment & Plan (1) NICO (obstructive sleep apnea): Code(s): G47.33 - Obstructive sleep apnea (adult) (pediatric) Category: Medical (2) Supplemental oxygen dependent: Code(s): Z99.81 - Dependence on supplemental oxygen Category: Medical (3) Obesity hypoventilation syndrome: Code(s): E66.2 - Morbid (severe) obesity with alveolar hypoventilation Category: Medical (4) Chronic respiratory failure with hypercapnia: Code(s): J96.12 - Chronic respiratory failure with hypercapnia Category: Medical Plan Patient has been diligent in trying to use her BiPAP at current settings of 25/20, however her machine unexplained L turns off about around half into therapy as documented by therapy and compliance report. Patient did contact her [employer] equipment [employer] and is waiting for repair or replacement. She continues to try to use her BiPAP at this time. Also, patient is not ambulatory and is not able to perform a 6 minute walk test. Coding Level of Care Code Est Pt Level 4 (27642) Diagnoses NICO (obstructive sleep apnea) G47.33 Supplemental oxygen dependent Z99.81 Obesity hypoventilation syndrome E66.2 Chronic respiratory failure with hypercapnia J96.12
--- OUTSIDE RECORDS SUMMARY | 2024-12-25 10:13 | XMS_ITS | Encounter Summary ---
Author Organization [employer] Address [address] [facility] [address] [place] [address] Care Team Providers Care Supervisor Prop Making Name Role Phone Luke Gayle PharmD Unavailable Unavail able Bárbara Rader MD Primary Care Provide r Reason for Visit * Reason Comments Med Refill Encounter Details Date Type Department Care Team ([facility] st Contact Info) Description 12/15/2024 Refill [facility] [address] [place] [address] Carmine Patel MD [address] [place] [address] Social History Tobacco Use Types Packs/Day Years [...] as of this encounter Plan of Treatment Not on file documented as of this encounter Goals Goal Patient Goal Type Associated Problems Recent Progress Patient-Stated? Author Blood Pressure < 140/90 Blood Pressure 171/88( 025 9:06 AM EDT) No Luke Gayle, PharmD documented as of this encounter Visit Diagnoses Not on filedocumented in this encounter Additional Health Concerns Assessment Noted Time PHQ-9 Depression Total Score: 0 07/16/20 24 10:22 AM EDT documented as of this encounter Care Teams Supervisor Prop Making Relationship Specialty Start Date End Date Bárbara Rader MD [address] [place] [id number] PCP - General Internal Medicine 07/16/24 Luke Gayle, PharmD Pharmacist Internal Medicine 09/04/22 [facility] 11/17/24 documented as of this encounter
--- OUTSIDE RECORDS SUMMARY | 2024-12-25 10:13 | XMS_ITS | Encounter Summary ---
Author Organization [employer] Address [address] [facility] 7[address] [place] [address] Care Team Providers Care Customer Service Teller Name Role Phone Carmine Patel MD Primary Care Provider [phone] Luke Gayle PharmD Unavailable Unavail able Bárbara Rader MD Primary Care Provide r Encounter Details Date Type Department Care Team (Late st Contact Info) Description 06/26/2024 Orders Only [facility] [address] [place], [place] [phone] Carmine Patel MD [address] [place], [place] [phone] Burning sensation (Primary Dx) Social History Tobacco [...] documented as of this encounter Care Teams Customer Service Teller Relationship Specialty Start Date End Date Carmine Patel MD [address] [place] [address] PCP - General Internal Medicine 11/16/15 07/15/24 Bárbara Rader MD [address] [place] [address] PCP - General Internal Medicine 07/16/24 Luke Gayle, PharmD [address] [place] [address] Pharmacist Internal Medicine 09/04/22 [facility] 07/10/24 11/19/24 [facility] [place] 11/17/24 documented as of this encounter
--- OUTSIDE RECORDS SUMMARY | 2024-12-25 10:13 | XMS_ITS | Clinical Summary ---
Author Organization [employer] Address [address] [facility] 7t [place] [address] Care Team Providers Care Metallurgy Teacher Name Role Phone Luke Gayle PharmD Unavailable [...] SUGAR THREE TIMES DAILY 100 each Active carvedilol (Coreg) 12.5 MG tablet Take 1 tablet (12.5 mg) by mouth with breakfast and with evening meal. 30 tablet Active losartan (Cozaar) 50 MG tablet Take 1 tablet (50 mg) by mouth Once per day. 30 tablet Active pantoprazole (ProtoNix) 20 MG EC tablet Take 1 tablet (20 mg) by mouth before breakfast. Do not crush, chew, or split. 30 tablet Active insulin lispro (HumaLOG) 100 UNIT/ML injectionIndicati ons:Type 2 diabetes mellitus with other specified complication, without long-term current use of insulin ([facility]) Inject 5 Units under the skin with breakfast, with lunch, and with evening meal. Inject 5 units under the skin three times a day with meals and at bedtime 10 mL Active pen needle 33G x 4 mm misc Inject 1 each under the skin 4 times daily. Use as instructed 360 each 024 2024 Active Continuous Glucose Medicaid Specialist (FreeStyle Silvana 2 [place]) deviceIndications :Type 2 diabetes mellitus with other specified complication, without long-term current use of insulin ([facility]) Scan sensor every 8 hours 1 each Active Continuous Glucose Sensor (FreeStyle Silvana 2 Sensor) miscIndications:T ype 2 diabetes mellitus with other specified complication, without long-term current use of insulin (CMS/HCC) Apply 1 sensor every 14 days 2 each Active glucose blood (FreeStyle Precision [place] Test) test stripIndications: Type 2 diabetes mellitus with other specified complication, without long-term current use of insulin ([facility]) Use to test blood sugar 2 times daily 100 each 024 2024 Active Blood Glucose Monitoring Suppl (FreeStyle [place] Lite) w/Device kitIndications:Ty pe 2 diabetes mellitus with other specified complication, without long-term current use of insulin (CMS/HCC) Use to test blood sugar 2 times daily 1 kit Active ergocalciferol (Vitamin D2) 1.25 MG (88267 UT) capsule TAKE ONE CAPSULE EVERY WEEK 12 capsule 5 Active insulin glargine (Lantus SoloStar) 100 UNIT/ML penIndications:Ty pe 2 diabetes mellitus with other specified complication, without long-term current use of insulin (CMS/HCC) Inject 20 Units under the skin at bedtime. 3 mL 3 Active loratadine (Claritin) 10 MG tabletIndications :Pruritus Take 1 tablet (10 mg) by mouth Once per day. 30 tablet Active Easy Touch Lancets 33G/Twist miscIndications:T ype 2 diabetes mellitus with other specified complication, without long-term current use of insulin (CMS/HCC) TEST BLOOD SUGAR TWICE DAILY 100 each 3 Active Ketotifen Fumarate 0.035 % solutionIndicatio ns:Allergic conjunctivitis of left eye Administer 1 drop into affected eye(s) every 12 (twelve) hours if needed (twice a day f needed on affected eye). 5 mL 1 024 Active glucose blood (FREESTYLE LITE) test strip Please use to check BS 3x daily 100 strip 025 Active Janumet XR 50-1000 MG per 24 hr tabletIndications :Type 2 diabetes mellitus with other circulatory complications (CMS/HCC) TAKE 1 TABLET BY MOUTH EVERY EVENING WITH FOOD 30 tablet 5 025 Active famotidine (Pepcid) 20 MG tabletIndications :Epigastric pain Take 1 tablet (20 mg) by mouth 2 times daily. 60 tablet 11 025 2025 Active pravastatin (Pravachol) 40 MG tabletIndications :Other hyperlipidemia Take 1 tablet (40 mg) by mouth at bedtime. 90 tablet 3 025 Active furosemide (Lasix) 40 MG tabletIndications :Stage 3a chronic kidney disease (CMS/HCC) Take 1 tablet (40 mg) by mouth in the morning. 90 tablet 1 025 Active pravastatin (Pravachol) 40 MG tabletIndications :Other hyperlipidemia TAKE ONE TABLET EVERY EVENING 90 tablet 3 024 2024 Discontinued(R eorder (will not trigger notification to Pharmacy)) furosemide (Lasix) 40 MG tablet TAKE ONE TABLET EVERY MORNING 90 tablet 1 024 2024 Discontinued(R eorder (will not trigger notification to Pharmacy)) Active Problems Problem Noted Date Diagnosed Date Chronic respiratory failure with hypoxia and hyp ercapnia 11/25/2024 Assessment & Plan (11/25/2024 11:12 AM EDT): Use inhalers as prescribed, patient educated to avoid triggers Use CPAP every night and when sleeping Continue to use her oxygen every day ED precautions were reviewed with the patient Continue to follow-up with pulmonary Bilateral leg weakness 11/25/2024 Assessment & Plan (11/25/2024 11:11 AM EDT): I will refer patient to physical therapy, patient was receiving physical therapy at home but she reports it was not helping her and that she would like to go to Center for therapy UTI symptoms 08/05/2024 Chronic bronchitis 07/16/2024 Assessment [...] 2 diabetes mellitus 07/16/2019 Assessment & Plan (11/25/2024 11:13 AM EDT): Diabetes is: controlled - Lab Results Component Value Date HGBA1C 6.5 (A) 11/25/2024 HGBA1C 7.0 (A) 06/03/2024 HGBA1C 6.8 (A) 10/24/2023 - Lab Results Component Value Date MICROALBUR 19.0 06/20/2024 CREATININE 0.69 07/06/2024 -Changes: None - Diabetic eye exam: Patient has upcoming appointment in July - Diabetic foot exam: Up-to-date - Continue lifestyle modifications - Continue current medications - Follow up: 3 months Assessment & Plan (08/05/2024 1:57 PM EST): [...] apnea 06/18/2017 Left ventricular diastolic dysfunction 6 Assessment & Plan (11/25/2024 11:13 AM EDT): Continue to take medications as prescribed and follow-up with cardiology 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 Hyperlipidemia 12/06/2011 Hypertension 12/06/2011 Assessment & Plan (11/25/2024 11:13 AM EDT): Today blood pressure was again elevated same as yesterday, patient is clinically asymptomatic, I advised for her to go and pickling solution maker her medication at the pharmacy (new medication losartan 50 mg daily) I advised low-sodium diet and weight reduction Assessment & Plan (07/16/2024 12:44 PM EDT): [...] Encounters Date Type Department Care Team Description 12/15/2024 Refill [facility] [address] [place] [address] Bárbara Rader MD Other hyperlipidemia; Stage 3a chronic kidney disease (CMS/HCC) 12/15/2024 Refill [facility] [address] [place] [address] Bárbara Rader MD Other hyperlipidemia 12/15/2024 Refill [facility] [address] [place] [address] Carmine Patel MD 11/25/2024 9:00 AM EDT Office Visit [facility] [address] [place] [address] Bárbara Rader MD Primary hypertension (Primary Dx); Type 2 diabetes mellitus with other specified complication, without long-term current use of insulin (CMS/HCC); Chronic respiratory failure with hypoxia and hypercapnia (CMS/HCC); Left ventricular diastolic dysfunction; Bilateral leg weakness 11/25/2024 Travel 11/21/2024 Telephone [facility] [address] [place] [address] Bárbara Rader MD Chart Prep 11/18/2024 Patient Outreach [facility] [address] [place] [address] Bárbara Rader MD Pre-visit Planning ((Unable to reach for PVP screening, LVM)) 11/05/2024 Refill [facility] [address] [place] [address] Bárbara Rader MD Epigastric pain 11/04/2024 Refill [facility] [address] [place] [address] Carmine Patel MD Epigastric pain 10/27/2024 Orders Only GENERIC EXTERNAL DATA DEPARTMENT Provider, Generic External Data 10/16/2024 Telephone [facility] [address] [place] [address] Bárbara Rader MD Nurse Triage 10/10/2024 Refill [facility] [address] [place] [address] Carmine Patel MD Type 2 diabetes mellitus with other circulatory complications ([facility]) 10/03/2024 Telephone [facility] [address] [place] [address] Bárbara Rader MD Durable Medical Equipment 10/03/2024 Telephone [facility] [address] [place] [address] Bárbara Rader MD Nurse Triage 10/02/2024 Refill [facility] [address] [place], [place] [phone] Bárbara Rader MD 09/30/2024 Telephone [facility] [address] [place] [address] Jae Keen MA Durable Medical Equipment from Last 3 Months [...] seasonal, injecta ble, preservative free 05/28/2020 Novel [id number], all formulations 05/15/2016 Pneumococcal Conjugate PCV 13 [...] Sign Reading Time Taken Comments Blood Pressure 171/88 11/25/2024 9:06 AM EDT Pulse 76 11/25/2024 9:06 AM EDT Temperature 36 ??C (96.8 ??F) 11/25/2024 9:06 AM EDT Respiratory Rate 20 11/25/2024 9:06 AM EDT Oxygen Saturation 98% 11/25/2024 9:06 AM EDT Inhaled Oxygen Concentration - - Weight 130 kg (287 lb) 11/25/2024 9:06 AM EDT Height 152.4 cm (5') 11/25/2024 9:06 AM EDT Body Mass Index 56.05 11/25/2024 9:06 AM EDT Plan of Treatment Health Maintenance Due Date Last Done Comments RSV Patients and Patients Aged 60 years or older (1 - 1-dose 75+ series) 2021 DTaP/Tdap/Td Vaccines (2 - Td or Tdap) 07/19/2022 07/19/2012 COVID-19 Vaccine ( season) 2024 07/31/2022, 02/09/2022, 08/31/2021, Additional history exists Eye Exam 08/22/2024 08/22/2023 Diabetes: Hemoglobin A1C 05/28/2025 025, 06/03/2024, 10/24/2023, Additional history exists Diabetes: Foot Exam 06/03/2025 06/03/2024 Diabetes: Urine Protein Screening 06/20/2025 06/20/2024, 08/17/2020 Lipid Panel 06/20/2025 06/20/2024, 08/17/2020 SDOH Screening 07/09/2025 07/09/2024 Depression Screening 07/16/2025 07/16/2024, 07/16/20 24 Alcohol/Substance Use Screening 11/25/2025 11/25/2024 Tobacco Screening 11/25/2025 11/25/2024 Pneumococcal Vaccine: 50+ Years Completed 05/03/2015, 07/27/2014, [...] Pressure 171/88( 025 9:06 AM EDT) No Nalini, Luke, PharmGloria Procedures Procedure Name Priority Date/Time Associated Diagnosis Comments POCT GLYCATED HEMOGLOBIN, TOTAL Routine 11/25/2024 9:07 AM EDT Type 2 diabetes mellitus with other specified complication, without long-term current use of insulin (CMS/HCC) POCT GLUCOSE Routine 11/25/2024 9:07 AM EDT Type 2 diabetes mellitus with other specified complication, without long-term current use of insulin (CMS/HCC) CULTURE, URINE, ROUTINE Routine 10/27/2024 9:43 AM [...] Relevant to Health Maintenance Results * (ABNORMAL) POCT HGB A1C (11/25/2024 9:07 AM EDT) Hemoglobin A1C 6.5(A) 4.0 - 6.0 % QC Media Lot # [id number] Lot# Expiration Date Blood 11/25/2024 9:07 AM EDT us Bárbara Raymundo MD POINT OF CARE TEST EN TER/EDIT ORDERABLES Final Result * POCT Glucose (11/25/2024 9:07 AM EDT) Glucose Blood, POC 115 60 - 200 mg/dL Comment:FASTING QC Media Lot # [id number] Lot# Expiration Date [id number] Blood Capillary blood specimen / Unknown 11/25/2024 9:07 AM EDT us Bárbara Raymundo MD POINT OF CARE TEST EN TER/EDIT ORDERABLES Final Result * Culture, Urine, Routine (10/27/2024 9:43 AM EST) Urine Urine specimen obtained by clean catch procedure / Unknown 10/27/2024 9:43 AM EST 10/27/2024 5:12 PM EST Comment:CC Narrative [facility] - 10/29/2024 10:55 AM EST Urine Culture No growth. Specimen Source: Urine clean catch us Generic External Data Provider LAB MICROBIOLOGY - GENERAL ORDERABLES Final Result Performing Organization Address [facility] Co de Phone Number [facility] [address] [place] [phone] * Hepatitis C Antibody with Reflex to HCV, RNA, Quantitative, Real-Time PCR (06/20/2024 2:54 PM EDT) Hepatitis C Antibody Nonreactive Nonreactive [facility] Comment:Antibodies to HCV no t detected; does not exclude early acuteHCV infection. Blood Venous blood specimen / Unknown 06/20/2024 2:54 PM EDT 06/20/2024 2:54 PM EDT Carmine Patel MD LAB BLOOD ORDERABLES Final Result Performing Organization Address City/[facility] Co de Phone Number [facility] [address] [place] [address] [phone] * Lipid Panel, Standard (06/20/2024 2:54 PM EDT) Triglycerides 81 <150 mg/dL [facility] Comment:Desirable Triglyceri de: less than 150 mg/dLBorderline High Triglyceride 150-199 mg/dLHigh Triglyceride: 200-499 mg/dLVery High Triglyceride: greater than or equal to 5OO mg/dL Cholesterol 152 <200 mg/dL [facility] Comment:Desirable Cholestero l: less than 200 mg/dLBorderline High Cholesterol: 200-239 mg/dLHigh Cholesterol: greater than 239 mg/dL LDL Cholesterol Calculated 86 <100 mg/dL [facility] Comment:Desirable LDL: less than 100 mg/dLNear Optimal/Above Optimal LDL: 110- 129 mg/dLBorderline High LDL: 130-159 mg/dLHigh LDL: 160-189 mg/dLVery High LDL: greater than or equal to 190 mg/dL HDL Cholesterol 50 >40 mg/dL [facility] Comment:Desirable HDL: great er than 40 mg/dL Note: This HDL assay may give artificially low results in patients with liver disease. Blood Venous blood specimen / Unknown 06/20/2024 2:54 PM EDT 06/20/2024 2:54 PM EDT us Carmine Patel MD LAB BLOOD ORDERABLES Final Result [facility] [address] [place] [phone] [phone] * (ABNORMAL) Albumin, Random Urine W/Creatinine (06/20/2024 1:00 PM EDT) Creatinine, Urine 35.87 mg/dL [facility] Microalbumin Urine 19.0 mg/L [facility] Microalbum Creatinine Ratio Ur 52.9(H) <30 ug/mg cr [facility] Comment:Albumin/Creatinine R atio Reference Ranges: Normal: < 30 ug/mg creatinine Microalbuminuria: 30 - 300 ug/mg creatinineClinical Albuminuria: > 300 ug/mg creatinine Urine (Urine, Random) 06/20/2024 1:00 PM EDT 06/20/2024 3:09 PM EDT us Carmine Patel MD LAB URINE ORDERABLES Final Result [facility] [address] [place] [address] [phone] from Last 3 Months or Most Recently Relevant to Health Maintenance Insurance [facility] [address] [place] [id number] [place] [address] [id number] [place] [id number] Care Teams Metallurgy Teacher Relationship Specialty Start Date End Date Bárbara Rader MD [address] [place] [address] PCP - General Internal Medicine 07/16/24 Luke Gayle, PharmD Pharmacist Internal Medicine 09/04/22 [facility] 11/17/24
--- OUTSIDE RECORDS SUMMARY | 2024-12-25 10:13 | XMS_ITS | Encounter Summary ---
Author Organization [employer] Address [address] [facility] [address] [place] [address] Care Team Providers Care Registered Medical Transcriptionist Name Role Phone Luke Gayle PharmD Unavailable Unavail able Bárbara Rader MD Primary Care Provide r Reason for Visit * Reason Comments Med Refill Encounter Details Date Type Department Care Team ([facility] st Contact Info) Description 12/15/2024 Refill [facility] [address] [place], [place] [phone] Bárbara Rader MD [address] [place], [place] [phone] Other hyperlipidemia Social History Tobacco Use Types Packs/Day Years [...] as of this encounter Visit Diagnoses Diagnosis Other hyperlipidemia documented in this encounter Additional Health Concerns Assessment Noted Time PHQ-9 Depression Total Score: 0 07/16/20 24 10:22 AM EDT documented as of this encounter Care Teams Registered Medical Transcriptionist Relationship Specialty Start Date End Date áBrbara Rader MD [address] [place] [phone] PCP - General Internal Medicine 07/16/24 Luke Gayle, PharmD Pharmacist Internal Medicine 09/04/22 [facility] 11/17/24 documented as of this encounter
--- OUTSIDE RECORDS SUMMARY | 2024-12-25 10:14 | XMS_ITS | Encounter Summary ---
Author Organization [employer] Address [address] [facility] 7t [place] [address] Care Team Providers Care Geodetic Surveyor Technologist Name Role Phone Carmine Patel MD Primary Care Provider [phone] Luke Gayle PharmD Unavailable Unavail able Bárbara Rader MD Primary Care Provide r Encounter Details Date Type Department Care Team (Late st Contact Info) Description 02/14/2024 Orders Only [facility] [address] [place], [place] [phone] Carmine Patel MD [address] [place], [place] [phone] Type 2 diabetes mellitus with other specified complication, without long-term current use of insulin ([facility]) (Primary Dx) Social History Tobacco Use Types Packs/Day Years Used Date Smoking Tobacco: Former Cigarettes Q uit: 1989 Smokeless Tobacco: Never Alcohol Use Standard Drinks/Week Comments Never 0 (1 standard drink = 0.6 oz pur e alcohol) Depression Answer Date Recorded Patient Health Questionnaire-9 Score 0 10/09/2022 Housing Stability Answer Date Recorded What is your housing situation today? I have truman rmaona 07/02/[address] you li [...] EDT Narrative 03/31/2024 9:51 AM EDT ? [facility] ?[address] ?[place] [address] ?XRay Report ? Signed ? Patient: Calos Civico,Patricia ?MR#: [id number] ?? [id number] ? : 1945 ?Acct:[id number] ? Age/Sex: 78 / F ?ADM Date: 06/27/24 ? Loc: HO.XRAY ? Attending Dr: Ofelia Ly [employer]IP[employer] ? Ordering Physician: Saleem Young PA-C ?? Date of Service: 03/13/24 ?? Procedure(s): XR ankle RT min 3V ?? Accession Number(s): [id number] ? cc: Carmine Patel MD; Saleem Young [...] by Tierra Worthy MD in OV> ? 03/31/24948 ? DD/ 0946 ? TD/TT: ? Shrimp Picker: ? Procedure Note Laura, Dara - 03/31/[address] [address] XRay Report Signed Patient: Magalie Solis MMR#: [id number] : 6Acct:[id number] Age/Sex: 78 / FADM Date: 03/13/24 Loc: HO.XRAY Attending Dr: Ofelia Ly NP Ordering Physician: Saleem Young PA-C Date of Service: 03/13/24 Procedure(s): XR ankle RT min 3V Accession Number(s): [id number] cc: Carmine Patel MD; Saleem Young PA-C [...] callus formation. This study was presented to k[facility] March 31, 2024 for interpretation. PSA staff will provide results to referring provider at this time. Dictated By: Tierra Worthy MD Signed By: <Electronically signed by Tierra Worthy MD in OV> 03/31/2449 DD/ TD/TT: Shrimp Picker: [facility] External Provider IMG XR PROCEDURES Final Result * BI Mammogram Additional Views Right (03/12/2024 2:15 PM EDT) Anatomical Region Laterality Modality Breast Right Mammography 03/12/2024 2:15 PM EDT Narrative 03/12/2024 3:08 PM EDT ? [facility] ? [address] ?[place], [place] [address] ? Mammography Report ? Signed ? Patient: Calos,Patricia ?MR#: [id number] ?? 8 ? : 1945 ?Acct:[id number] ? Age/Sex: 78 / F ?ADM Date: 03/12/24 ? Loc: HO.MAMMO ? Attending Dr: Carmine Patel MD ? Ordering Physician: Carmine Patel MD ?Results: 2 ?? Benign Findings ? Date of Service: 03/12/24 ?Follow Up: 1 Year From Orig ?? inal Mammogram ? Procedure(s): MM added views RT ?? Accession Number(s): [id number] ? cc: Carmine Patel MD ? EXAMINATION: [...] 1504 ? DD/ 1415 ? TD/TT: ? Shrimp Picker: ? Procedure Note Dara Sanchez - 03/12/2024 [facility] [address] [place] [address] Mammography Report Signed Patient: Magalie Live MMR#: [id number] : 6Acct:[id number] Age/Sex: 78 / FADM Date: 03/12/24 Loc: JAVI Attending Dr: Carmine Patel MD Ordering Physician: Carmine Ptael MDResults: 2 Benign Findings Date of Service: 03/12/24Follow Up: 1 Year From Orig ina Mammogram Procedure(s): MM added views RT Accession Number(s): [id number] cc: Carmine Patel MD EXAMINATION: MM DIAGNOSTIC DIGITAL MAMMOGRAPHY, RIGHT CLINICAL INFORMATION: Follow-up diagnostic views for calcifications seen right breast upper-outer quadrant on screening exam. COMPARISON: Mammography: 02/05/2024. Exams dating back to 2019 and 2015. TECHNIQUE: Digital mammography is performed in the [...] in OV> 03/12/24 1504 DD/ 1415 TD/TT: Shrimp Picker: Carmine Patel MD IMG BI PROCEDURES Final Res ult documented in this encounter Visit Diagnoses Diagnosis Type 2 diabetes mellitus with other specified complication, without long-term current use of insulin ([facility])- Primary documented in this encounter Additional Health Concerns Assessment Noted Time PHQ-9 Depression Total Score: 0 10/09/19 23 11:12 AM EST documented as of this encounter Care Teams Geodetic Surveyor Technologist Relationship Specialty Start Date End Date Carmine Patel MD [address] [place] [address] PCP - General Internal Medicine 11/16/15 07/15/24 Bárbara Rader MD [address] [place] [address] PCP - General Internal Medicine 07/16/24 Luke Gayle, Shan [address] [place] [address] Pharmacist Internal Medicine 09/04/22 [facility] 07/10/24 11/19/24 [facility] 11/17/24 documented as of this encounter
--- OUTSIDE RECORDS SUMMARY | 2024-12-25 10:14 | XMS_ITS | Encounter Summary ---
Author Organization [employer] Address [address] [facility] 7t [place] [address] Care Team Providers Care Managed Care Manager Name Role Phone Carmine Patel MD Primary Care Provider [phone] Luke Gayle PharmD Unavailable Unavail able Bárbara Rader MD Primary Care Provide r Encounter Details Date Type Department Care Team (Late st Contact Info) Description 01/18/2024 Orders Only [facility] [address] [place], [place] [phone] Carmine Patel MD [address] [place], [place] [phone] Urinary incontinence, unspecified type (Primary Dx) Social [...] Notes * Result Encounter Note - Carmine Paetl MD - 01/18/2024 11:25 AM EDT Macrobid prescribed instead of Bactrim for pt's UTI. Ms Magalie Live was seen today and still has symptoms of UTI. documented in this encounter Plan of Treatment Not on [...] (06/20/2024 1:00 PM EDT) Color Urine Yellow [facility] Appearance Urine Cloudy [facility] PH 6.5 5.0 - 9.0 [facility] Glucose Urine UA Negative Negative mg/dL [facility] Urine Blood Trace(A) Negative [facility] Specific [place] - Urine 1.010 1.005 - 1.025 [facility] Urine Protein Negative Neg-Trace mg/dL [facility] Urine Ketones Negative Negative mg/dL [facility] Nitrite Urine Negative Negative [facility] Leukocyte Esterase Urine Large (3+)(A) Negative [facility] RBC Urine 0-2 0 - 2 /HPF [facility] Urine WBC >50(A) 0 - 5 /HPF [facility] Urine Squamous Epithelial Cell 0-2 0 - 2 /HPF [facility] Urine Bacteria 4+ None Seen [facility] Hyaline Casts, Urine 0-2 0 - 2 /LPF [facility] Urine 06/20/2024 1:00 PM EDT 06/20/2024 3:09 PM EDT Narrative [facility] - 06/20/2024 3:25 PM EDT Urine, Clean Catch Carmine Patel MD LAB URINE ORDERABLES Final Result [facility] [address] [place] [address] [phone] documented in this encounter Visit Diagnoses Diagnosis Urinary incontinence, unspecified type- Primary documented in this encounter Additional Health Concerns Assessment Noted Time PHQ-9 Depression Total Score: 0 10/09/19 23 11:12 AM EST documented as of this encounter Care Teams Managed Care Manager Relationship Specialty Start Date End Date Carmine Patel MD [address] [place] [address] PCP - General Internal Medicine 11/16/15 07/15/24 Bárbara Rader MD [address] [place] [address] PCP - General Internal Medicine 07/16/24 Luke Gayle PharmD [address] [place] [address] Pharmacist Internal Medicine 09/04/22 [facility] 07/10/24 11/19/24 [facility] 11/17/24 documented as of this encounter
--- OUTSIDE RECORDS SUMMARY | 2024-12-25 10:14 | XMS_ITS | Encounter Summary ---
Author Organization [employer] Address [address] [facility] 7t [place] [address] Care Team Providers Care Oliver Filter Operator Name Role Phone Luke Gayle PharmD Unavailable Unavail able Bárbara Rader MD Primary Care Provide r Reason for Visit * Reason Comments Med Refill Encounter Details Date Type Department Care Team (Late st Contact Info) Description 11/04/2024 Refill [facility] MEDICINE [address] [place] [address] Carmine Patel MD [address] [place] [address] Epigastric pain Social History Tobacco Use Types [...] documented as of this encounter Care Teams Oliver Filter Operator Relationship Specialty Start Date End Date Bárbara Rader MD [address] [place] [address] PCP - General Internal Medicine 07/16/24 Luke Gayle, PharmD Pharmacist Internal Medicine 09/04/22 [facility] [place] 07/10/24 11/19/24 [facility] 11/17/24 documented as of this encounter
--- OUTSIDE RECORDS SUMMARY | 2024-12-25 10:14 | XMS_ITS | Encounter Summary ---
Author Organization [facility] Address [address] [facility] 7t [place] [address] Care Team Providers Care Corporate Vp Advertising & Online Name Role Phone Carmine Patel MD Primary Care Provider Luke Gayle PharmD Unavailable Unavail able Bárbara Rader MD Primary Care Provide r Encounter Details Date Type Department Care Team (Latest Contact Info) Description 06/26/2019 Abstract [facility] CONVERSIONS Dental, Provider, DDS Social [...] on file documented as of this encounter Visit Diagnoses Not on filedocumented in this encounter Care Teams Corporate Vp Advertising & Online Relationship Specialty Start Date End Date Carmine Patel MD 505 [place] [address] PCP - General Internal Medicine 11/16/15 07/15/24 Bárbara Rader MD [address] [place] [address] PCP - General Internal Medicine 07/16/24 Luke Gayle PharmD [address] [place], [place] [address] [address] Pharmacist Internal Medicine 09/04/22 [facility] 07/10/24 11/19/24 [facility] 11/17/24 documented as of this encounter
--- OUTSIDE RECORDS SUMMARY | 2024-12-25 10:14 | XMS_ITS | Encounter Summary ---
Author Organization [employer] Address [address] [facility] 7t [place] [address] Care Team Providers Care Metal Moulder Name Role Phone Carmine Patel MD Primary Care Provider [phone]- [phone] Luke Gayle PharmD Unavailable Unavail able Bárbara Rader MD Primary Care Provide r Reason for Visit * Reason Onset Date Comments FYI 02/15/2024 Encounter Details Date Type Department Care Team ([facility] st Contact Info) Description 02/15/2024 Telephone [facility] MED & PEDS [address] [place], [place] [phone] Carmine Patel MD [address] [place], [place] [phone] FYI Social History Tobacco Use Types Packs/Day [...] - 02/15/2024 3:07 PM EDT Tc from [facility] with Tiffany calling to report pt [...] documented as of this encounter Care Teams Metal Moulder Relationship Specialty Start Date End Date Carmine Patel MD [address] [place] [address] PCP - General Internal Medicine 11/16/15 07/15/24 Bárbara Rader MD [address] [place] [address] PCP - General Internal Medicine 07/16/24 Luke Gayle, PharmD [address] [place] [address] Pharmacist Internal Medicine 09/04/22 [facility] 07/10/24 11/19/24 [facility] 11/17/24 documented as of this encounter
--- OUTSIDE RECORDS SUMMARY | 2024-12-25 10:14 | XMS_ITS | Encounter Summary ---
Author Organization [employer] Address [address] [facility] [address] 7[address] [place] [address] Care Team Providers Care Cement Tester Assistant Name Role Phone Luke Gayle PharmD Unavailable Unavail able Bárbara Rader MD Primary Care Provide r Reason for Visit * Reason Onset Date Comments Durable Medical Equipment 09/03/2024 Encounter Details Date Type Department Care Team ([facility] st Contact Info) Description 09/03/[address] [facility] MEDICINE 230 [place] [address] Bárbara Rader MD [address] [place], [place] [phone] Durable Medical Equipment Social History Tobacco Use [...] - 09/03/2024 1:40 PM EST Tc from [facility] requesting a large commode. States the one pt has is to small. Anyfurther questions may contact phone # [phone]. documented in this encounter Plan of Treatment [...] documented as of this encounter Care Teams Cement Tester Assistant Relationship Specialty Start Date End Date Bárbara Rader MD [address] [place] [address] PCP - General Internal Medicine 07/16/24 Luke Gayle, PharmD Pharmacist Internal Medicine 09/04/22 [facility] 07/10/24 11/19/24 [facility] 11/17/24 documented as of this encounter
--- OUTSIDE RECORDS SUMMARY | 2024-12-25 10:14 | XMS_ITS | Encounter Summary ---
Author Organization [employer] Address [address] [facility] [address] 7t [place] [address] Care Team Providers Care Technical Recruiter Name Role Phone Luke Gayle PharmD Unavailable Unavail able Bárbara Rader MD Primary Care Provide r Reason for Visit * Reason Onset Date Comments Appointment Request 09/15/2024 Encounter Details Date Type Department Care Team ([facility] st Contact Info) Description 09/15/[address] [facility] MEDICINE [address] [place], [place] [phone] Bárbara Rader MD [address] [place], [place] [phone] Appointment Request Social History Tobacco Use Types [...] Pressure 171/88( 025 9:06 AM EDT) No MarcologLuke garrison, PharmD documented as of this encounter Visit Diagnoses Not on filedocumented in this encounter Additional Health Concerns Assessment Noted Time PHQ-9 Depression Total Score: 0 07/16/20 24 10:22 AM EDT documented as of this encounter Care Teams Technical Recruiter Relationship Specialty Start Date End Date Bárbara Rader MD [address] [place] [address] PCP - General Internal Medicine 07/16/24 Luke Gayle, PharmD Pharmacist Internal Medicine 09/04/22 [facility] 07/10/24 11/19/24 [facility] 11/17/24 documented as of this encounter
--- OUTSIDE RECORDS SUMMARY | 2024-12-25 10:14 | XMS_ITS | Encounter Summary ---
Author Organization [employer] Address [address] [facility] 7t [place] [address] Care Team Providers Care Electrolysis Needle Operator Name Role Phone Carmine Patel MD Primary Care Provider +1- [phone] Luke Gayle PharmD Unavailable Unavail able Bárbara Rader MD Primary Care Provide r Reason for Referral * Consultation (Routine) - Closed Specialty Diagnoses / Procedures Referred By Alden andres Referred To Contact Physical Therapy Diagnoses Acute right ankle pain Carmine Patel MD [address] [place] [address] Phone: tel: fax: [facility] Physical Therapy [address] [place] [address] Phone: tel: fax: Referral ID Status Reason Start Date Expiration Date V isits Requested Visits Authorized [id number] Closed Specialty Services Required 03/28/2024 03/28/2025 1 1 Encounter Details Date Type Department Care Team (Late st Contact Info) Description 03/24/2024 Orders Only [facility] MED & PEDS 505 [place], [place] [phone] Carmine Patel MD [address] [place], [place] [phone] Acute right ankle pain (Primary Dx) Social [...] as of this encounter Plan of Treatment Scheduled Orders Name Type Priority Associated Diagnoses [...] EDT Narrative 03/28/2024 12:12 PM EDT ? [facility] ?[address] ?[place] [address] ?XRay Report ? Signed ? Patient: Calos HamiltonummMagalie Armenta ?MR#: [id number] ?? [id number] ? : 1945 ?Acct:[id number] ? Age/Sex: 78 / F ?ADM Date: 03/28/24 ? Loc: HO.ED ? Attending Dr: ? Ordering Physician: Elzbieta Franz ?? Date of Service: 03/28/24 ?? Procedure(s): XR knee RT 4V ?? Accession Number(s): [id number] ? cc: Carmine Patel MD; Elzbieta Franz [...] 1208 ? DD/ 1151 ? TD/TT: ? Template Cutter: ? Procedure Note Dara Sanchez - 03/28/2024 [place] [address] XRay Report Signed Patient: Magalie Solis MMR#: [id number] : 6Acct:[id number] Age/Sex: 78 / FADM Date: 03/28/24 Loc: HO.ED Attending Dr: Ordering Physician: Elzbieta Franz Date of Service: 03/28/24 Procedure(s): XR knee RT 4V Accession Number(s): [id number] cc: Carmine Patel MD; Elzbieta Franz EXAMINATION: [...] in OV> 03/28/24 1208 DD/ 1151 TD/TT: Template Cutter: [facility] External Provider IMG XR PROCEDURES Final Result documented in this encounter Visit Diagnoses Diagnosis Acute right ankle pain- Primary documented in this encounter Additional Health Concerns Assessment Noted Time PHQ-9 Depression Total Score: 0 10/09/19 23 11:12 AM EST documented as of this encounter Care Teams Electrolysis Needle Operator Relationship Specialty Start Date End Date Carmine Ptael MD 505 [place] [address] PCP - General Internal Medicine 11/16/15 07/15/24 Bárbara Rader MD [address] [place] [address] PCP - General Internal Medicine 07/16/24 Luke Gayle PharmD [address] [facility] [place] [address] Pharmacist Internal Medicine 09/04/22 [facility] 07/10/24 11/19/24 [facility] 11/17/24 documented as of this encounter
--- OUTSIDE RECORDS SUMMARY | 2024-12-25 10:14 | XMS_ITS | Encounter Summary ---
Author Organization [employer] Address [address] [facility] 7t [place] [address] Care Team Providers Care Home Health Care Physician Name Role Phone Carmine Patel MD Primary Care Provider Luke Gayle PharmD Unavailable Unavail able Bárbara Rader MD Primary Care Provide r Encounter Details Date Type Department Care Team (Late st Contact Info) Description 06/21/[address] [facility] CH[facility] MED & PEDS [address] [place], [place] [phone] Carmine Patel MD [address] [place], [place] [phone] Right hip pain (Primary Dx) Social History [...] documented as of this encounter Care Teams Home Health Care Physician Relationship Specialty Start Date End Date Carmine Patel MD 505 [place] [address] PCP - General Internal Medicine 11/16/15 07/15/24 Bárbara Rader MD [address] [place] [address] PCP - General Internal Medicine 07/16/24 Luke Gayle, PharmD [address] [place] [address] Pharmacist Internal Medicine 09/04/22 [facility] 07/10/24 11/19/24 [facility] 11/17/24 documented as of this encounter
--- OUTSIDE RECORDS SUMMARY | 2024-12-25 10:14 | XMS_ITS | Clinical Summary ---
Author Organization [facility] Address [address] [facility] [address] [place] [address] Phone Care Team Providers Care Repairer Kiln Car Name Role Phone Carmine Patel MD Primary Care Provider [phone] Allergies Active Allergy Reactions Criticality Noted Date [...] every morning 04/04/2023 Active ergocalciferol 1.25 MG (62367 UT) capsule 50,000 Units 1 (one) time [...] Impaired fasting glucose 12/06/2011 Obesity 12/06/2011 Immunizations Immunization Administration Dates Next Due H1N1 All Forms [...] Visit [facility] [address] [place] [address] Rubin Cordero MD [address] [facility] [address] [place] [address] Health Maintenance Due Date Last Done Comments Diabetes: Ophthalmology Exam 11/29/2022 Diabetes: Pedal Pulse Checked 11/29/2022 Diabetes: Sensory Foot Exam 11/29/2022 Diabetes: Visual Foot Exam 11/29/2022 Diabetes: Hemoglobin A1C 01/22/2024 024, 06/18/2023, 10/09/2022 Influenza Vaccine (Season Ended) 2025 06/18/2023, 05/28/2020, 07/16/2019, Additional history exists Pneumococcal Vaccine: 50+ Years Completed 05/03/2015, 07/27/2014, 03/01/2012 Hepatitis B Vaccine Aged Out No longe r eligible based on patient's age to complete this topic Insurance [facility] ([id number]) [facility] ([id number]) ZUHAIR ROBLERO [id number] Care Teams Repairer Kiln Car Relationship Specialty Start Date End Date Carmine Patel MD PCP - General Internal Medicine 05/02/21
--- OUTSIDE RECORDS SUMMARY | 2024-12-25 10:14 | XMS_ITS | Encounter Summary ---
Author Organization [employer] Address [address] [facility] [address] 7t [place] [address] Care Team Providers Care Upper Leather Sorter Name Role Phone Carmine Patel MD Primary Care Provider [phone]- [phone] Luke Gayle PharmD Unavailable Unavail able Bárbara Rader MD Primary Care Provide r Reason for Visit * Reason Onset Date Comments Call Back Request 02/06/2024 Encounter Details Date Type Department Care Team (Late st Contact Info) Description 02/06/2024 Telephone [facility] MEDICINE [address] [place] [address] Carmine Patel MD [address] [place] [address] Call Back Request Social History Tobacco Use [...] and nothing is happening Please contact at [phone] documented in this encounter Plan of Treatment Not on file documented as of this encounter Goals Goal Patient Goal Type Associated Problems Recent Progress Patient-Stated? Author Blood Pressure < 140/90 Blood Pressure 171/88( 025 9:06 AM EDT) No Dellogono, Luke, PharmD documented as of this encounter Visit Diagnoses Not on filedocumented in this encounter Additional Health Concerns Assessment Noted Time PHQ-9 Depression Total Score: 0 10/09/19 23 11:12 AM EST documented as of this encounter Care Teams Upper Leather Sorter Relationship Specialty Start Date End Date Carmine Patel MD [address] [place] [address] PCP - General Internal Medicine 11/16/15 07/15/24 Bárbara Rader MD [address] [place] [address] PCP - General Internal Medicine 07/16/24 Luke Gayle, JarettD 505 [place] [address] Pharmacist Internal Medicine 09/04/22 [facility] 07/10/24 11/19/24 [facility] 11/17/24 documented as of this encounter
--- OUTSIDE RECORDS SUMMARY | 2024-12-25 10:14 | XMS_ITS | Encounter Summary ---
Author Organization [email or web address] Address [address] [facility] [address] 7t [place] [address] Care Team Providers Care Pack Out Operator Name Role Phone Carmine Patel MD Primary Care Provider Luke Gayle PharmD Unavailable Unavail able Bárbara Rader MD Primary Care Provide r Reason for Visit * Reason Onset Date Comments FYI 05/07/2024 Encounter Details Date Type Department Care Team (Late st Contact Info) Description 05/07/2024 Telephone [facility] MEDICINE [address] [place] [address] Carmine Patel MD 505 [place] [address] FYI Social History Tobacco Use Types Packs/Day [...] any questions you can contact Terence at [phone]. documented in this encounter Plan of Treatment [...] documented as of this encounter Care Teams Pack Out Operator Relationship Specialty Start Date End Date Carmine Patel MD [address] [place] [address] PCP - General Internal Medicine 11/16/15 07/15/24 Bárbara Rader MD [address] [place] [address] PCP - General Internal Medicine 07/16/24 Luke Gayle, JarettD 505 [place] [address] Pharmacist Internal Medicine 09/04/22 [facility] 07/10/24 11/19/24 [facility] 11/17/24 documented as of this encounter
--- OUTSIDE RECORDS SUMMARY | 2024-12-25 10:14 | XMS_ITS | Encounter Summary ---
Author Organization [employer] Address [address] [facility] 7t [place] [address] Care Team Providers Care Purifying Plant Operator Name Role Phone Carmine Patel MD Primary Care Provider [phone]- [phone] Luke Gayle PharmD Unavailable Unavail able Bárbara Rader MD Primary Care Provide r Encounter Details Date Type Department Care Team (Late st Contact Info) Description 06/11/2024 Orders Only [facility] MED & PEDS 505 [place], [place] [phone] Carmine Patel MD [address] [place], [place] [phone] Pruritus (Primary Dx) Social History Tobacco Use [...] documented as of this encounter Care Teams Purifying Plant Operator Relationship Specialty Start Date End Date Carmine Patel MD 505 [place] [address] PCP - General Internal Medicine 11/16/15 07/15/24 Bárbara Rader MD [address] [place] [address] PCP - General Internal Medicine 07/16/24 Luke Gayle, PharmD 505 [place] [address] Pharmacist Internal Medicine 09/04/22 [facility] 07/10/24 11/19/24 [facility] 11/17/24 documented as of this encounter
== END 2024-12-25 10:02 | disposition home or self-care (01) ==
LOC: HO.HPS 09:22
PROVIDERS: PCP Internal Medicine; Visit Provider Internal Medicine Pulmonary Disease
DX: G47.33 Obstructive sleep apnea (adult) (pediatric) (principal); Z99.81 Dependence on supplemental oxygen; E66.2 Morbid (severe) obesity with alveolar hypoventilation; J96.12 Chronic respiratory failure with hypercapnia
CPT/HCPCS: 99214

== ENCOUNTER → 2024-12-25 09:21 | Outpatient (BNVA) | payer OTHER, SELFPAY | PROVIDERS: PCP Internal Medicine; Visit Provider Internal Medicine Pulmonary Disease | DX: G47.33 Obstructive sleep apnea (adult) (pediatric) (principal); E66.2 Morbid (severe) obesity with alveolar hypoventilation; J96.12 Chronic respiratory failure with hypercapnia; Z99.81 Dependence on supplemental oxygen; Z99.89 Dependence on other enabling machines and devices | CPT/HCPCS: 99212 ==

== ENCOUNTER 2025-01-20 13:59 | Emergency (ER) | payer OTHER, SELFPAY ==
[2025-01-20 14:24] VITALS: BP 146/74; PULSE 71; RESP 20; TEMP 37; O2SAT 91; BMI 39.2
--- NOTE | 2025-01-20 15:07 | ED.GENADULT ---
HPI - General Adult General Chief complaint: Skin/Abscess/Foreign Body Stated complaint: Side pain Time Seen by Provider: 01/20/25 17:49 Source: patient, RN notes reviewed and old records reviewed Mode of arrival: ambulatory History of Present Illness ED Provider: Rosie Ordonez PA-C HPI narrative: 79-year-old female with a past medical history NICO, CHF, lymphadenopathy, pulmonary hypertension, GERD, diabetes, COPD, presenting to the ED complaining of pruritic rash beneath left breast x months. Admits to using topical lotion w/o relief. Denies known new exposures, burning, SOB, new medication, CP/SOB, fever/chills, nausea/vomiting. Denies history of shingles. Denies nipple drainage/breast pain. Related Data Home Medications ?Medication ?Instructions ?Recorded ?Confirmed lancets 33 gauge (TRUEplus Lancets) #100 ea 09/20/21 09/23/24 sitagliptin phos 50 mg-metformin 1 tab PO DAILY 02/20/22 11/24/24 ER 1,000 mg tablet,extend rel 24h mp (Janumet XR) furosemide 40 mg tablet 40 mg PO DAILY 05/11/23 11/24/24 albuterol sulfate 90 mcg/actuation 2 puff inhalation Q6H PRN Wheezing 11/02/23 11/24/24 aerosol inhaler ergocalciferol (vitamin D2) 1,250 1,250 mcg PO MO 11/02/23 11/24/24 mcg (50,000 unit) capsule famotidine 20 mg tablet 20 mg PO BID 11/02/23 11/24/24 pravastatin 40 mg tablet 40 mg PO BEDTIME 11/02/23 11/24/24 albuterol sulfate 2.5 mg/3 mL 2.5 mg inhalation Q6H PRN 05/04/24 11/24/24 (0.083 %) solution for nebulization Shortness Of Breath Or Wheezing pantoprazole 20 mg tablet,delayed 20 mg PO DAILY@0630 05/04/24 11/24/24 release insulin lispro 100 unit/mL 5 unit subcut DAILY 08/06/24 11/24/24 subcutaneous pen (Humalog KwikPen (U-100) Insulin) cefuroxime axetil 250 mg tablet 250 mg PO BID 11/24/24 11/24/24 fluconazole 150 mg tablet 150 mg PO DAILY 11/24/24 11/24/24 hydralazine 25 mg tablet 25 mg PO TID 11/24/24 11/24/24 spironolactone 25 mg tablet 25 mg PO DAILY 11/24/24 11/24/24 vibegron 75 mg tablet (Gemtesa) 75 mg PO DAILY 11/24/24 11/24/24 Previous Rx's ?Medication ?Instructions ?Recorded carvedilol 12.5 mg tablet 12.5 mg PO BID #60 tabs 11/07/23 insulin glargine 100 unit/mL 20 unit (0.2 mL) subcut BEDTIME 11/15/23 subcutaneous solution (Lantus #10 mL U-100 Insulin) acetazolamide 250 mg tablet 500 mg (2 x 250 mg) PO BID #180 11/15/24 tabs losartan 50 mg tablet 50 mg PO BID #120 tabs 11/24/24 cetirizine 10 mg capsule (Zyrtec) 10 mg PO DAILY PRN allergy 01/20/25 symptoms #14 caps hydrocortisone 1 % topical cream 1 appl topical BID PRN rash #28.35 01/20/25 grams Allergies Allergy/AdvReac Type Severity Reaction Status Date / Time No Known Allergies Allergy Verified 01/20/25 14:24 [No Known Allergies*] Review of Systems Review of Systems: Yes all other systems are reviewed and are negative Constitutional: Constitutional: Reports as per [facility] Past Medical History Attestation statement: The following information was validated with the patient. Source: old records reviewed Medical History Unspecified urinary incontinence NICO (obstructive sleep apnea) CHF (congestive heart failure) 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 indication of end stage renal disease in patient 6 to 64 years of age Lymphadenopathy Abdominal pain Bursitis of right hip Osteoarthritis of right hip Restrictive ventilatory defect Dyspnea on exertion Varicose veins of right lower extremity with inflammation Pneumonitis Pulmonary hypertension Hypertensive cardiovascular disease Acute hypoxic on chronic hypercapnic respiratory failure Acute on chronic respiratory failure with hypoxemia Obesity hypoventilation syndrome GERD (gastroesophageal reflux disease) Hypertension Diabetes mellitus COPD (chronic obstructive pulmonary disease) Surgical History S/P laparoscopic cholecystectomy (07/14/21) Family History Family History Mother Diabetes Social History Social History Household Members: Unknown / Unable to assess Household Members Other:: cousin Housing: Unknown / Unable to assess Do you presently have visiting nurse or other home services: No Unable to assess alcohol history related to: Unknown Alcohol intake: never Patient Tobacco Use Status: Former Tobacco user Tobacco use type: Cigarette Years Smoked: 20 Advance Directives: Yes Advance Directives on File: Yes Advance Directives Date on File: 02/22/22 service: No Current occupational status: unemployed and disabled Physical Exam ED Vital Signs: Vital Signs - 24 hr 01/20/25 14:24 01/20/25 17:46 01/20/25 18:30 Temperature 98.6 F 97.9 F 97.9 F Pulse Rate 71 69 69 Respiratory Rate 20 18 18 Blood Pressure 146/74 H 180/70 H 180/70 H Pulse Oximetry 91 L 96 96 Oxygen Delivery Method Room Air Room Air Room Air BMI result Body Mass Index 39.2 Const General: cooperative, healthy appearing and no acute distress Orientation/consciousness: patient oriented x3 Limitations: no limitations HENMT Head: Yes normal to inspection and Yes atraumatic Ears: hearing grossly normal bilaterally General nose exam: Normal external nose present Face and sinus: Yes normal facial exam Eyes General: appearance normal, both eyes and all related structures EOM: EOMs intact bilaterally Neck Neck: Yes normal visual inspection and Yes no meningeal signs Resp Effort & Inspection: normal respiratory effort and no respiratory distress Cardio Rate: regular rate GI Inspection: Yes normal to inspection Palpation (GI): Soft to palpation and nontender Skin Other: + dark colored raised lesions noted beneath left breast, beneath the right breast, to lower abdomen and back. No open wounds/vesicles. No fluctuance/induration or overlying cellulitis. Nontender. No palm/sole or mucous membrane involvement Wounds: no wounds Neuro General: patient oriented x3, tone normal and no meningeal signs Cranial nerves: Yes CN's II-XII intact bilaterally Gait exam (Neuro): Normal gait present Extrem General: Yes normal to inspection Course Course Course Narrative: RME: 79-year-old female presents to ED for rash under left breast that has been present for multiple years. Patient was informed by primary care it is on more patient wants to find out what it is patient states it is slightly itchy. Patient denies any breast swelling, nipple discharge or redness. Patient never had shingles. Patient has had shingles vaccine. Medical Decision Making Medical Decision Making MDM Narrative: 79-year-old female with a past medical history NICO, CHF, lymphadenopathy, pulmonary hypertension, GERD, diabetes, COPD, presenting to the ED complaining of pruritic rash beneath left breast x months. On exam vital signs stable, NAD, nontoxic appearing, physical exam as noted above. Concern for seborrheic keratosis vs acanthosis nigricans. No evidence of cellulitis, shingles, abscess. Low suspicion for acute breast malignancy. No evidence of anaphylaxis. No evidence of SJS/TENs Plan: Topical steroid cream, dermatology follow-up Please refer to course for remaining clinical decision making, interpretation of labs/imaging results, and discussions with consultants and/or family members. Results discussed with patient including worrisome signs and symptoms and strict return precautions, and when to return to the emergency department. They verbalized understanding and feel safe for discharge at this time. Differential Diagnosis Differential Diagnoses: The differential diagnosis associated with the presentation includes As above External Record Review External record reviewed: Inpatient record, Office record, Outpatient record, Prior outpatient labs, Prior outpatient radiology, Primary care record and Outside ED record Tests considered The following testing was considered but not selected: As above Prescription Management I considered prescription management with: Other Chronic Conditions Patient?s care impacted by: Other Social Determinants Patient?s care significantly limited by Social Determinants of Health including: Other Social Determinant of Health Attestation Attending Attestation: I was personally present and available for consultation in the ED. I have reviewed everything on the chart that is available and agree with the documentation provided by the CLARITA including discussion about the assessment, treatment plan and discussion. Based on medical record the care appears appropriate. Kevin Merida MD [facility] Emergency Medicine Discharge Plan Discharge Clinical Impression: Rash Patient Disposition: Home, Self-Care Instructions: Seborrheic Dermatitis (DC) Additional Instructions: Topical hydrocortisone as a steroid cream, apply to rash only. Avoid application to face, hands, feet as can cause atrophy/discoloration to skin And Zyrtec will also help with itching. You may also take Benadryl however this will make you drowsy Please have close follow up with Dermatology, call to make an appointment If rashes spreading, becomes painful, infected, looks red, there is pus drainage or you have fever return to the emergency department Prescriptions: New hydrocortisone 1 % cream 1 appl topical BID PRN (Reason: rash) Qty: 28.35 0RF Zyrtec 10 mg capsule 10 mg PO DAILY PRN (Reason: allergy symptoms) Qty: 14 0RF No Action Janumet XR 50-1,000 mg tablet, ER multiphase 24 hr 1 tab PO DAILY insulin lispro [Humalog KwikPen Insulin] 100 unit/mL insulin pen 5 unit subcut DAILY pravastatin 40 mg tablet 40 mg PO BEDTIME ergocalciferol (vitamin D2) 1,250 mcg (50,000 unit) capsule 1,250 mcg PO MO albuterol sulfate 90 mcg/actuation HFA aerosol inhaler 2 puff inhalation Q6H PRN (Reason: Wheezing) famotidine 20 mg tablet 20 mg PO BID carvedilol 12.5 mg Tablet 12.5 mg PO BID Qty: 60 0RF Protocol: Hold for SBP/HR < HOLD for SBP < : 90 HOLD for HR < : 60 insulin glargine [Lantus U-100 Insulin] 100 unit/mL Solution 20 unit subcut BEDTIME Qty: 10 0RF pantoprazole 20 mg tablet,delayed release (DR/EC) 20 mg PO DAILY@0630 albuterol sulfate 2.5 mg /3 mL (0.083 %) solution for nebulization 2.5 mg inhalation Q6H PRN (Reason: Shortness Of Breath Or Wheezing) acetazolamide 250 mg Tablet 500 mg PO BID Qty: 180 0RF (DME) lancets [TRUEplus Lancets] 33 gauge misc See Rx Instructions topical .MEDSUPPLY Qty: 100 Rx Instructions: As directed furosemide 40 mg tablet 40 mg PO DAILY cefuroxime axetil 250 mg tablet 250 mg PO BID spironolactone 25 mg tablet 25 mg PO DAILY hydralazine 25 mg tablet 25 mg PO TID fluconazole 150 mg tablet 150 mg PO DAILY Gemtesa 75 mg tablet 75 mg PO DAILY losartan 50 mg tablet 50 mg PO BID Qty: 120 4RF Referrals: [facility] [Outside] [facility] [Outside] Carmine Patel MD [Primary Care Provider] - Interventions: ED Discharge Assessment Last Done: 01/20/25 18:30 Discharge Date/Time: 01/20/25 18:30 Print Language: English
[2025-01-20 17:46] VITALS: BP 180/70; PULSE 69; RESP 18; TEMP 36.6; O2SAT 96
--- OUTSIDE RECORDS SUMMARY | 2025-01-20 18:27 | XMS_ITS | Encounter Summary ---
Author Organization [employer] Address [address] [facility] [address] [place] [address] Care Team Providers Care Incident Response Coordinator Name Role Phone Luke Gayle PharmD Unavailable Unavail able Bárbara Rader MD Primary Care Provide r Reason for Visit * Reason Comments Med Refill Encounter Details Date Type Department Care Team (Late st Contact Info) Description 12/15/2024 Refill [facility] [address] [place] [address] Carmine Patel MD [address] [place] [address] Social History Tobacco Use Types Packs/Day Years [...] documented as of this encounter Care Teams Incident Response Coordinator Relationship Specialty Start Date End Date Bárbara Rader MD [address] [place] [id number] PCP - General Internal Medicine 07/16/24 Luke Gayle, PharmD Pharmacist Internal Medicine 09/04/22 [facility] 11/17/24 documented as of this encounter
--- OUTSIDE RECORDS SUMMARY | 2025-01-20 18:27 | XMS_ITS | Clinical Summary ---
Author Organization [employer] Address [address] [place] [address] Care Team Providers Care [facility] Name Role Phone Luke Gayle PharmD Unavailable Unavail able Bárbara Rader MD Primary Care Provide r Allergies Active Allergy Reactions Criticality Noted Date Comments Lisinopril Cough,Unknown 05/04/2011 Medications Alcohol Swabs (Alcohol Prep) pads Active albuterol (2.5 MG/3ML) 0.083% nebulizer solution INHALE ONE AMPULE USING A NEBULIZER EVERY 6 HOURS NEEDED 540 mL 2 09/04/20 23 Active albuterol 108 (90 Base) MCG/ACT inhaler INHALE TWO PUFFS EVERY 6 HOURS NEEDED 8.5 g 2 09/04/20 23 Active TRUEplus Lancets 33G misc TEST BLOOD SUGAR THREE TIMES DAILY 100 each 09/28/19 24 Active losartan (Cozaar) 50 MG tablet Take 1 tablet (50 mg) by mouth Once per day. 30 tablet 01/07/20 24 Active insulin lispro (HumaLOG) 100 UNIT/ML injectionIndicati ons:Type 2 diabetes mellitus with other specified complication, without long-term current use of insulin ([facility]) Inject 5 Units under the skin with breakfast, with lunch, and with evening meal. Inject 5 units under the skin three times a day with meals and at bedtime 10 mL 11 02/14/20 24 Active pen needle 33G x 4 mm misc Inject 1 each under the skin 4 times daily. Use as instructed 360 each 3 02/14/20 24 2024 Active Continuous Glucose E Tailer (FreeStyle Silvana 2 [place]) deviceIndications :Type 2 diabetes mellitus with other specified complication, without long-term current use of insulin (CMS/HCC) Scan sensor every 8 hours 1 each 02/27/20 24 Active Continuous Glucose Sensor (FreeStyle Silvana 2 Sensor) miscIndications:T ype 2 diabetes mellitus with other specified complication, without long-term current use of insulin (CMS/HCC) Apply 1 sensor every 14 days 2 each 02/27/20 24 Active glucose blood (FreeStyle Precision [place] Test) test stripIndications: Type 2 diabetes mellitus with other specified complication, without long-term current use of insulin (CMS/HCC) Use to test blood sugar 2 times daily 100 each 12 02/27/20 24 2024 Active Blood Glucose Monitoring Suppl (FreeStyle [place] Lite) w/Device kitIndications:Ty pe 2 diabetes mellitus with other specified complication, without long-term current use of insulin (CMS/HCC) Use to test blood sugar 2 times daily 1 kit 02/27/20 24 Active ergocalciferol (Vitamin D2) 1.25 MG (68324 UT) capsule TAKE ONE CAPSULE EVERY WEEK 12 capsule 5 04/17/20 24 Active insulin glargine (Lantus SoloStar) 100 UNIT/ML penIndications:Ty pe 2 diabetes mellitus with other specified complication, without long-term current use of insulin (CMS/HCC) Inject 20 Units under the skin at bedtime. 3 mL 3 05/09/20 24 Active loratadine (Claritin) 10 MG tabletIndications :Pruritus Take 1 tablet (10 mg) by mouth Once per day. 30 tablet 06/11/20 24 Active Easy Touch Lancets 33G/Twist miscIndications:T ype 2 diabetes mellitus with other specified complication, without long-term current use of insulin (CMS/HCC) TEST BLOOD SUGAR TWICE DAILY 100 each 3 06/16/20 24 Active Ketotifen Fumarate 0.035 % solutionIndicatio ns:Allergic conjunctivitis of left eye Administer 1 drop into affected eye(s) every 12 (twelve) hours if needed (twice a day f needed on affected eye). 5 mL 1 07/16/20 24 Active glucose blood (FREESTYLE LITE) test strip Please use to check BS 3x daily 100 strip 11 10/02/19 25 Active Janumet XR 50-1000 MG per 24 hr tabletIndications :Type 2 diabetes mellitus with other circulatory complications (CMS/HCC) TAKE 1 TABLET BY MOUTH EVERY EVENING WITH FOOD 30 tablet 5 10/10/19 25 Active famotidine (Pepcid) 20 MG tabletIndications :Epigastric pain Take 1 tablet (20 mg) by mouth 2 times daily. 60 tablet 11 11/05/19 25 2025 Active pravastatin (Pravachol) 40 MG tabletIndications :Other hyperlipidemia Take 1 tablet (40 mg) by mouth at bedtime. 90 tablet 3 12/16/19 25 Active furosemide (Lasix) 40 MG tabletIndications :Stage 3a chronic kidney disease (CMS/HCC) Take 1 tablet (40 mg) by mouth in the morning. 90 tablet 1 12/16/19 25 Active carvedilol (Coreg) 12.5 MG tablet TAKE 1 TABLET BY MOUTH TWICE DAILY IN THE MORNING AND IN THE EVENING WITH MEALS 60 tablet 3 01/08/20 25 Active pantoprazole (ProtoNix) 20 MG EC tablet TAKE 1 TABLET BY MOUTH EVERY MORNING BEFORE BREAKFAST DO NOT BREAK, CRUSH, DISSOLVE OR CHEW 30 tablet 01/08/20 25 Active carvedilol (Coreg) 12.5 MG tablet Take 1 tablet (12.5 mg) by mouth with breakfast and with evening meal. 30 tablet 01/07/20 24 2024 Discontinued pantoprazole (ProtoNix) 20 MG EC tablet Take 1 tablet (20 mg) by mouth before breakfast. Do not crush, chew, or split. 30 tablet 01/07/20 24 2024 Discontinued Active Problems Problem Noted Date [...] I advised for her to go and garbage pick up man her medication at the pharmacy (new medication [...] Encounters Date Type Department Care Team Description 01/07/2025 Refill [facility] [place] [address] Carmine Patel MD 12/15/2024 Refill [facility] [place] [address] Bárbara Rader MD Other hyperlipidemia; Stage 3a chronic kidney disease (CMS/HCC) 12/15/2024 Refill [facility] [place] [address] Bárbara Rader MD Other hyperlipidemia 12/15/2024 Refill [facility] [place] [address] Carmine Patel MD 11/25/2024 9:00 AM EDT Office Visit [facility] [place] [address] Bárbara Rader MD Primary hypertension (Primary Dx); Type 2 diabetes mellitus with other specified complication, without long-term current use of insulin (CMS/HCC); Chronic respiratory failure with hypoxia and hypercapnia (CMS/HCC); Left ventricular diastolic dysfunction; Bilateral leg weakness 11/25/2024 Travel 11/21/2024 Telephone [facility] [place] [address] Bárbara Rader MD Chart Prep 11/18/2024 Patient Outreach [facility] [place] [address] Bárbara Rader MD Pre-visit Planning ((Unable to reach for PVP screening, LVM)) 11/05/2024 Refill [facility] [place] [address] Bárbara Rader MD Epigastric pain 11/04/2024 Refill [facility] [address] [place] [address] Carmine Patel MD Epigastric pain 10/27/2024 Orders Only GENERIC EXTERNAL DATA DEPARTMENT Provider, Generic External Data from Last 3 Months Immunizations Name Administration Dates Next Due Influenza High-dose Quadriva lent Preservative Free 06/18/2023,06/09/2022,07/07/2021 Influenza injectable quadriv alent IIV4 with preservative 07/27/2016 Influenza, High Dose Seasona l, Preservative Free 06/03/2024,07/16/2019,07/31/2018,06/06 Influenza, IIV3, injectable 07/27/2014, 3,07/05/2011 Influenza, Split (incl. efren fied surface antigen) 07/19/2012 Influenza, intradermal, quad rivalent, preservative free 05/15/2016 Influenza, seasonal, injecta ble, preservative free 05/28/2020 Novel [id number], all formulations 05/15/2016 Pneumococcal Conjugate PCV 13 [...] Exam 08/22/2024 08/22/2023 Diabetes: Hemoglobin A1C 05/28/2025 03 025, 06/03/2024, 10/24/2023, Additional history exists Diabetes: [...] 025 9:06 AM EDT) No Luke Gayle, Shan Procedures Procedure Name Priority Date/Time Associated Diagnosis Comments POCT GLYCATED HEMOGLOBIN, TOTAL Routine 11/25/2024 9:07 AM EDT Type 2 diabetes mellitus with other specified complication, without long-term current use of insulin ([facility]) POCT GLUCOSE Routine 11/25/2024 9:07 AM EDT Type 2 diabetes mellitus with other specified complication, without long-term current use of insulin ([facility]) CULTURE, URINE, ROUTINE Routine 10/27/2024 9:43 AM [...] Media Lot # [id number] Lot# Expiration Date Blood Capillary blood specimen / Unknown 11/25/2024 9:07 AM EDT us Bárbara Raymundo MD POINT OF CARE TEST EN TER/EDIT ORDERABLES Final Result * Culture, Urine, Routine (10/27/2024 9:43 AM EST) Urine Urine specimen obtained by clean catch procedure / Unknown 10/27/2024 9:43 AM EST 10/27/2024 5:12 PM EST Comment:UACC Narrative [facility] - 10/29/2024 10:55 AM EST Urine Culture No growth. Specimen Source: Urine clean catch us Generic External Data Provider LAB MICROBIOLOGY - GENERAL ORDERABLES Final Result [facility] [address] [place] [address] [phone] * Hepatitis C Antibody with Reflex to HCV, RNA, Quantitative, Real-Time PCR (06/20/2024 2:54 PM EDT) Hepatitis C Antibody Nonreactive Nonreactive [facility] Comment:Antibodies to HCV no t detected; does not exclude early acuteHCV infection. Blood Venous blood specimen / Unknown 06/20/2024 2:54 PM EDT 06/20/2024 2:54 PM EDT us Carmine Patel MD LAB BLOOD ORDERABLES Final Result Performing Organization Address City/[facility]/ZIP Co de Phone Number [facility] [address] [place] [phone] * Lipid Panel, Standard (06/20/2024 2:54 PM EDT) Triglycerides 81 <150 mg/dL [facility] Comment:Desirable Triglyceri de: less than 150 mg/dLBorderline High Triglyceride 150-199 mg/dLHigh Triglyceride: 200-499 mg/dLVery High Triglyceride: greater than or equal to 5OO mg/dL Cholesterol 152 <200 mg/dL [facility] Comment:Desirable Cholestero l: less than 200 mg/dLBorderline High Cholesterol: 200-239 mg/dLHigh Cholesterol: greater than 239 mg/dL LDL Cholesterol Calculated 86 <100 mg/dL [facility] Comment:Desirable LDL: less than 100 mg/dLNear Optimal/Above Optimal LDL: 110- 129 mg/dLBorderline High LDL: 130-159 mg/dLHigh LDL: 160-189 mg/dLVery High LDL: greater than or equal to 190 mg/dL HDL Cholesterol 50 >40 mg/dL [facility] Comment:Desirable HDL: great er than 40 mg/dL Note: This HDL assay may give artificially low results in patients with liver disease. Blood Venous blood specimen / Unknown 06/20/2024 2:54 PM EDT 06/20/2024 2:54 PM EDT us Carmine Patel MD LAB BLOOD ORDERABLES Final Result Performing Organization Address [facility] Co de Phone Number [facility] [address] [place] [phone] [phone] * (ABNORMAL) Albumin, Random Urine W/Creatinine (06/20/2024 1:00 PM EDT) Creatinine, Urine 35.87 mg/dL [facility] Microalbumin Urine 19.0 mg/L [facility] Microalbum Creatinine Ratio Ur 52.9(H) <30 ug/mg cr [facility] Comment:Albumin/Creatinine R atio Reference Ranges: Normal: < 30 ug/mg creatinine Microalbuminuria: 30 - 300 ug/mg creatinineClinical Albuminuria: > 300 ug/mg creatinine Urine (Urine, Random) 06/20/2024 1:00 PM EDT 06/20/2024 3:09 PM EDT Carmine Patel MD LAB URINE ORDERABLES Final Result Performing Organization Address [facility] Co de Phone Number [facility] [address] [place] [phone] [phone] from Last 3 Months or Most Recently Relevant to Health Maintenance Insurance [facility] [employer] (HMO D-SNP) [address] [place] [id number] Care Teams [facility] Relationship Specialty Start Date End Date Bárbara Rader MD [address] [place] [address] PCP - General Internal Medicine 07/16/24 Luke Gayle, JarettD Pharmacist Internal Medicine 09/04/22 [facility] 11/17/24
--- OUTSIDE RECORDS SUMMARY | 2025-01-20 18:27 | XMS_ITS | Encounter Summary ---
Author Organization [email or web address] Address [address] [facility] [place] [address] Care Team Providers Care Photographic Specialist Name Role Phone Luke Gayle PharmD Unavailable Unavail able Bárbara Rader MD Primary Care Provide r Reason for Visit * Reason Onset Date Comments Durable Medical Equipment 09/03/2024 Encounter Details Date Type Department Care Team ([facility] st Contact Info) Description 09/03/2024 Telephone [facility] [address] [place] [address] Bárbara Rader MD [address] [place], [place] [phone] Durable Medical Equipment Social History Tobacco Use [...] - 09/03/2024 1:40 PM EST Tc from [facility] requesting a large commode. States the one pt has is to small. Anyfurther questions may contact phone # [phone]. documented in this encounter Plan of Treatment [...] documented as of this encounter Care Teams Photographic Specialist Relationship Specialty Start Date End Date Bárbara Rader MD [address] [place] [address] PCP - General Internal Medicine 07/16/24 Luke Gayle, PharmD Pharmacist Internal Medicine 09/04/22 [facility] 07/10/24 11/19/24 [facility] 11/17/24 documented as of this encounter
--- OUTSIDE RECORDS SUMMARY | 2025-01-20 18:27 | XMS_ITS | Encounter Summary ---
Author Organization [employer] Address [address] [facility] [address] [place] [address] Care Team Providers Care Staff Command And Control Officer Name Role Phone Luke Gayle PharmD Unavailable Unavail able Bárbara Rader MD Primary Care Provide r Reason for Visit * Reason Comments Med Refill Encounter Details Date Type Department Care Team (Late st Contact Info) Description 11/04/[address] [facility] [address] [place] [address] Carmine Patel MD [address] [place] [address] Epigastric pain Social History Tobacco Use Types [...] documented as of this encounter Care Teams Staff Command And Control Officer Relationship Specialty Start Date End Date Bárbara Rader MD [address] [place] [id number] PCP - General Internal Medicine 07/16/24 Luke Gayle, PharmD Pharmacist Internal Medicine 09/04/22 [facility] 07/10/24 11/19/24 [facility] 11/17/24 documented as of this encounter
--- OUTSIDE RECORDS SUMMARY | 2025-01-20 18:27 | XMS_ITS | Encounter Summary ---
Author Organization [employer] Address [address] [facility] [address] [place] [address] Care Team Providers Care Mathematical Scientist Name Role Phone Carmine Patel MD Primary Care Provider [phone] Luke Gayle PharmD Unavailable Unavail able Bárbara Rader MD Primary Care Provide r Reason for Visit * Reason Onset Date Comments FYI 02/15/2024 Encounter Details Date Type Department Care Team ([facility] st Contact Info) Description 02/15/2024 Telephone [facility] [address] [place], [place] [phone] Carmine Patel MD [address] [place], [place] [phone] FYI Social History Tobacco Use Types Packs/Day [...] - 02/15/2024 3:07 PM EDT Tc from [facility] with Tiffany calling to report pt has [...] documented as of this encounter Care Teams Mathematical Scientist Relationship Specialty Start Date End Date Carmine Patel MD [address] [place] [address] PCP - General Internal Medicine 11/16/15 07/15/24 Bárbara Rader MD [address] [place] [address] PCP - General Internal Medicine 07/16/24 Luke Gayle, PharmD [address] [place] [phone] Pharmacist Internal Medicine 09/04/22 [facility] 07/10/24 11/19/24 [facility] 11/17/24 documented as of this encounter
--- OUTSIDE RECORDS SUMMARY | 2025-01-20 18:27 | XMS_ITS | Data Portability ---
Author Organization [facility] Mysterio [facility], Ne in - [facility] Address [address] [place] [id number] Care Team Providers Care Security Installation Sales Technician Name Role Phone HIM [facility] OTHER [facility] OTHER Assessment Encounter Date Assessment Date [...] q6hr PRN. FUP with PCP. Precautions reviewed. [email or web address] Not available 10/20/2024 22:40:59 11/11/2024 11/11/2024 I provided real -time medical direction via phone for this encounter, and was available for additional phone based assistance as needed. I have reviewed and agree with the Assessment and Plan as documented by the Securities Settlement Processor. We discussed the diagnostic uncertainty of home [...] to call 911- verbalized understanding of instruction [email or web address] Not available 11/11/2024 11:09:06 Plan of Treatment Reminders Order Date Submit Date Provider Last Modified By Organization Details Last Modified Time Details Appointments None recorded. Lab BMP, serum or plasma 2024 025 AFSHIN [facility], [address] [place] [address], [id number] 5 08:12:40 rapid flu (A+B) 2024 025 [email or web address] 0 Main - [facility], [address] [place] [address], [id number] 17:59:22 rapid SARS CoV 2 Ag, QL IA, respiratory specimen 2024 025 [email or web address] 0 Main - [facility], [address] [place] [address], [address] [place] [address] 17:59:22 urinalysis, dipstick 2024 025 [email or web address] Main - [facility], [address] [place] [address], [address] [place] [address] 16:56:12 BMP, serum or plasma 2024 [email or web address] [facility], [address] [place] [address], [address] [place] [address] 16:56:12 culture, urine 2024 AFSHIN [facility] (Centralized Electronic Ordering - All Locations), Patient Can Go To The Location Of Their Choice, [id number] 10:05:34 rapid flu (A+B) 2024 025 AFSHIN [facility], [address] [place] [address], [id number] 19:51:19 glucose, fingerstick , blood 2024 025 [email or web address] [facility], [address] [place] [address], [id number] 18:03:29 Referral None recorded. Procedures None recorded. Surgeries None recorded. Imaging electrocard iogram 2024 025 [email or web address] 0 Main - [facility], [address] [place] [address], [id number] 17:59:23 electrocard iogram 2024 025 [email or web address] [facility], [address] [place] [address], [id number] 18:07:21 Medication Orders ondansetron HCl (PF) 4 mg/2 mL injection solution 2024 025 [email or web address] 0 [facility], [address] [place] [address], [id number], 5 17:59:21 lactated Ringers intravenous solution 2024 025 [email or web address] 0 [facility], [address] [place] [address], [id number], 5 17:59:21 ondansetron 4 mg disintegrat ing tablet 2024 025 [facility], [address] [place] [address], [id number], 5 09:13:59 sulfamethox azole 800 mg-trimetho prim 160 mg tablet 2024 025 [facility], [address] [place] [address], [id number], 5 11:07:13 Tylenol Extra Strength 500 mg tablet 2024 025 [email or web address] 7 [facility], [address] [place] [address], [id number], 5 20:55:03 Proventil HFA 90 mcg/actuati on aerosol inhaler 2024 025 [facility], [address] [place] [address], [id number], 5 13:00:53 ipratropium 0.5 mg-albutero l 3 mg (2.5 mg base)/3 mL nebulizatio n soln [address] [facility], [address] [place] [address], [id number], 5 17:16:48 azithromyci n 250 mg tablet 2024 025 [email or web address] [facility], [address], [place], [id number], 5 18:04:54 azithromyci n 250 mg tablet 2024 0[facility] [address], [place], [id number], 5 13:00:49 Patient TargetsNo targets recorded. Patient InstructionsNo instructions recorded. Reason for Referral None Reported. Results Created Date Observation Date Name Description Value Unit Range Abnormal Flag Note LastModifiedBy Organization Detail LastModifiedTime 10/03/1910/03/2024 rapid flu (A+B) Flu negati ve Not Available [facility] [address] [place] [address], [id number] 10/03/2024 17:09:58 10/03/1910/03/2024 gluco se, finge rstic k, blood Blood Glucose: mg/dl 187 Not Available Main - [facility] [address] [place] [address], [id number] 10/03/2024 17:16:05 10/18/19 25 10/21/2024 URINE CULTU RE,CO MPREH ENSIV E urine culture,comp rehensive Final report abnormal Not Available [facility] ([facility]) [address] [facility], [place], [address], 10/21/2024 12:44:16 10/18/19 25 10/21/2024 URINE CULTU [...] compl ex, and Klebs iella aerog chin. [place] irwin that initi ally test susce ptibl e may becom e resis tant withi n a few days after initi ation of thera py. Testi ng subse quent isola irwin may be warra nted if clini annette indic ated. (CLSI M100- Ed33) Great er than 100,0 00 colon y formi ng units per mL Not Available [facility] ([facility]) [address] [facility], [place], [address], 10/21/2024 12:44:16 10/18/19 25 10/21/2024 URINE CULTU [...] thopr im/Mandel lfa S Not Available [facility] ([facility]) [address] [facility], [place], [address], 10/21/2024 12:44:16 11/11/19 25 11/11/2024 rapid SARS CoV 2 Ag, QL IA, respi rator y speci men rapid SARS CoV 2 Ag, QL IA, respiratory specimen negati ve Not Available [facility] [address] [place] [address], [id number] 11/11/2024 11:05:36 11/11/19 25 11/11/2024 rapid flu (A+B) Flu negati ve Not Available [facility] [address] [place] [address], [id number] 11/11/2024 11:05:35 10/03/19 25 10/03/2024 elect hernan diogr am No observ ation record ed. gbaci Main - [facility] [address] [place] [address], [id number] 10/03/2024 18:07:20 11/11/19 25 11/12/2024 abraham kim am No observ ation record ed. acalthorpe Main - [facility] [address] [place] [address], [id number] 11/12/2024 08:13:36 Result Notes None recorded. Procedures Surgical History None recorded. Imaging Results Imaging Date Name Status LastModified by Organization Details LastModified Time 10/03/2024 electrocardiogram completed [email or web address] Main - [facility] [address] [place] [address], [id number] 10/03/2024 18:07:20 11/12/2024 electrocardiogram completed [email or web address] Main - [facility] [address] [place] [address], [id number] 11/12/2024 08:13:36 Procedure Notes None recorded. Medical Equipment None Reported. Allergies Allergen ID Allergen Name Allergen Category Reaction Reaction Severity Criticality Documentation Date Start Date Code Code System Note Provider Name and Address Organization Details Recorded Time 46768 lisinopri l medicatio n Not available Not available Not available 10/03/2024 92259 RxNorm Not Available [facility] - production 14:54:18 [...] times a day by nebulizatio n route. 01/17/ 2025 active Not Available Not Available Not Avai [...] 5 99.3 [degF] 97 % 97 % 963270 g 73 /min 16 /min 146 mm[Hg] 81 mm[Hg] Not Available [employer] [facility] [employer] [facility] 5 16:44:11 Date Recorded Heart rate Body weight Body height Body temperature Oxygen saturation Oxygen saturation in Arterial blood by Pulse oximetry Inhaled oxygen flow rate Respiratory rate Systolic blood pressure Diastolic blood pressure Provider Name and Address Organization Details Last Updated DateTime 5 73 /min 096509 g 160.02 cm 99 [degF] 98 % 98 % 2 L/min 18 /min 155 mm[Hg] 81 mm[Hg] Not Available [employer] [facility] [employer] [facility] 5 20:52:30 Date Recorded Heart rate Respiratory rate Oxygen saturation Oxygen saturation in Arterial blood by Pulse oximetry Inhaled oxygen flow rate Body weight Body height Body temperature Systolic blood pressure Diastolic blood pressure Provider Name and Address Organization Details Last Updated DateTime 5 60 /min 18 /min 100 % 100 % 2 L/min 809646 g 160.02 cm 98.7 [degF] 194 mm[Hg] 91 mm[Hg] Not Available [employer] [facility] 5 15:59:16 Date Recorded Body temperature Oxygen saturation Oxygen saturation in Arterial blood by Pulse oximetry Inhaled oxygen flow rate Body weight Body height Respiratory rate Heart rate Systolic blood pressure Diastolic blood pressure Provider Name and Address Organization Details Last Updated DateTime 5 98.4 [degF] 95 % 95 % 2 L/min 567407. 04 g 160.02 cm 16 /min 80 /min 116 mm[Hg] 74 mm[Hg] Not Available [employer] [facility] 5 11:01:38 Social History None recorded. Functional Status None recorded. Mental Status None recorded. Family History Nothing Reported. Medical History No medical history recorded. Gynecological HistoryNo gynecological history recorded. Obstetrics History GPAL:G 0 P 0 0 0 0 Past Encounters Encounter ID Performer Location Encounter Start Date Encounter Closed Date Diagnosis/Indication Diagnosis SNOMED-CT Code Diagnosis ICD10 Code Diagnosis Note [id number] Bautista Cueva MD Main - [facility] [address] [place] [id number] 10/23/2023 17:01:07 10/23/2023 22:32:23 Loose stool 735688038 R19.5 [id number] Allyn Massey MD Main - [facility] [address] [place] [id number] 01/11/2024 10:20:30 01/11/2024 16:25:20 Muscle weakness 62680717 M62.81 [id number] David Retana MD Main - [facility] [address] [place] [id number] 01/24/2024 13:12:58 01/24/2024 22:56:49 Bilateral lower limb edema 282374868 R60.0 Acute on chronic. Patient with daily [...] which to seek higher level of care. [id number] JOSE LUIS GERONIMO MD Main - [facility] [address] [place] [id number] 10/03/2024 16:28:44 10/03/2024 22:24:33 Contusion of orbital tissue of right eye [id number] 0348948 S05.11XA Evaluation in the field was performed by my cobol application developer colleague, as noted above, I provided real-time direction and supervisio n for this visit. Tajik interprete r was used to communicat e [...] room air. Low-grade temperatur e, but the cobol application developer reports that the room is very warm.Exam: Small bruising and swelling under the right eye and temporal area, with no periorbita l ecchymosis ( raccoon eyes ). No tenderness to palpation over the affected area or the bridge of the nose. Normal eye movement with no reported pain. The cobol application developer reports rhonchi on lung examinatio n. No [...] exac erbation of chronic obstructive pulmonary disease 887508133 J44.1 Patient denies shortness of breath, cough, or upper respirator y infection symptoms. The cobol application developer reported rhonchi on lung examinatio n. On her medication list, Albuterol inhaler and nebulizer are listed, but the patient denies having or using either. Flu and Covid negative-Rolando rodriguez her history of COPD with chronic oxygen requiremen t, Duoneb x1 was administer ed.A prescripti on for an Albuterol MDI with spacer was sent to her pharmacy.- A prescripti on for Azithromyc in was also sent to her pharmacy, with the first dose administer ed by the cobol application developer. -Due to the lack of wheezing, her stable oxygen saturation on chronic oxygen, and her history of diabetes requiring insulin, the decision was made not to start Prednisone to avoid hyperglyce daniela.-Red flags were discussed with the patient. [id number] DA MUÑOZ MD [facility] - [address] [phone] 10/16/2024 20:52:29 10/21/2024 15:57:41 Headache 99718604 R51.9 Pain in left arm 7256568 00 M79.602 [id number] Mar Jiménez MD [facility] - [address] [phone] 10/18/2024 15:45:59 10/21/2024 16:36:29 Altered mental status 703846723 R41.82 Evaluation in the field was performed by my cobol application developer colleague, as noted above, I provided real-time direction and supervisio n for this visit. 79 yo F PMHx HTN, CAD, T2DM, COPD on 2L home O2 p/w ongoing ANGELO, body aches for which she was seen yesterday by [facility]. Repeat visit requested by son as pt awoke this AM and felt confused, spontaneou sly resolved. Triage note reports dizziness however pt denies this. ANGELO resolved. Endorsed urinary frequency without dysuria, fevers, hematuria. On cobol application developer eval VS wnl, exam wnl including A+O [...] endorsed ongoing L shoulder/a rm pain. On cobol application developer exam not swelling or deformity, rotator cuff [...] shortness of breath, cough, chest pain, fever. [id number] Sayra Arevalo MD Main - [address] [id number] 10/21/2024 15:55:58 10/21/2024 17:31:04 Urinary symptoms [id number] R39.9 [id number] Luz Love MD [facility] - [address] [phone] 11/11/2024 11:01:33 11/12/2024 12:20:21 Nausea, vomiting and diarrhea 8397818 R11.2 R19.7 labs not concerning / given [...] Elizondo Member ID Guarantor Name 10/03/[address] [facility] - DOS ON OR AFTER 2022 - DUAL ELIGIBLE - LONG-TERM OPTIONS AND ONE CARE (MEDICARE REPLACEMENT/ADV ANTAGE - HMO) Magalie Calosdrew Hamiltonumm [id number] Magalie Stein 10/16/[address] [facility] - DOS ON OR AFTER 2022 - DUAL ELIGIBLE - LONG-TERM OPTIONS AND ONE CARE (MEDICARE REPLACEMENT/ADV ANTAGE - HMO) Magalie SanchezCalos Alfonsoumm [id number] Magalie Calos Hamiltonumm 10/18/[address] [facility] - DOS ON OR AFTER 2022 - DUAL ELIGIBLE - LONG-TERM OPTIONS AND ONE CARE (MEDICARE REPLACEMENT/ADV ANTAGE - HMO) Magalie SanchezCalosnargis Stein [id number] Magalie Calos Hamiltonumm 10/21/[address] [facility] - DOS ON OR AFTER 2022 - DUAL ELIGIBLE - LONG-TERM OPTIONS AND ONE CARE (MEDICARE REPLACEMENT/ADV ANTAGE - HMO) Magalie SanchezCalosnargis Stein [id number] Magalie Calos Stein 11/11/[address] [facility] - DOS ON OR AFTER 2022 - DUAL ELIGIBLE - LONG-TERM OPTIONS AND ONE CARE (MEDICARE REPLACEMENT/ADV ANTAGE - HMO) Magalie Calosnargis Stein [id number] Magalie Hammondsdanish Hamiltonumm Notes Date Note Type Note Provider Name [...] any additional information to process this visit. Securities Settlement Processor Organization Information for Linda Leyvahelio Legal Name: [employer] Address: [address] [place] [address], Order Processor: Too Welch MD [place] No.: [id number] Securities Settlement Processor POC Test Results from Gordon Linda Lesa DURAN Rapid influenza antigen (17:29:49) Flu: - Attachments uploaded as part of this test result can be found under Documents section. EKG (17:59:36) EKG test performed. Attachments uploaded as part of this test result can be found under Documents section. ................... ................... ................... ................... ................... ................... ................... ........ Securities Settlement Processor Note From Linda Leyva: Disp for the 79 year old female cc head/eye injury. Upon arrival patient found sitting in recliner in living room. Patient is Tajik speaking only' applications intern used during visit. Patient is IQBAL x 4 GCS x 15, patient does not know the month or year and was unsure of her street address. Patient reports she is unable to read or write. Patient appeared to answer questions appropriately for applications intern. Patient denies chest pain, denies shortness of breath, denies abdominal pain, denies n/v/d, denies head pain, denies changes to vision, complains of bilateral leg weakness. Patient's son called for appointment due to patient falling on 09/17/24 and hitting her right side of face. Patient refused to go to the ER after injury. Son reported increased swelling at right muslim and around right lower eye. Patient states [...] blood work and I.V. access. Consulted with [facility] Dr. Geronimo. Dr. Geronimo ordered DuoNeb updraft [...] the patient of red flags/risk factors with applications intern. Patient understood. Dr. Geronimo she will send request to her PCP for physical therapy referral. Dr. Geronimo advised patient she can take her albuterol inhaler tonight every 4-6 hours as needed and to continue antibiotics tomorrow as prescribed. All times approx. ................... ................... ................... ................... ................... ................... ................... ........ [facility] Consulted: Jose Luis Geronimo ................... ................... ................... ................... ................... ................... ................... ........ Disposition: Fulfilled JOSE LUIS GERONIMO MD [address] [facility],[address], [place], [address], [employer] 10/03/2024 21:37:27 10/16/2024 text/html HPI: Call returned [...] (UTI), Chronic Kidney Disease PMH Reviewed at 10/16/2024:42 Allergies Reviewed at 10/16/2024:42 Comments: HPI reviewed by this RN, no further information needed to process visit -Geronimo Acosta RN ................... ................... ................... ................... ................... ................... ................... ........ Securities Settlement Processor Note From Joselito Rogers: Smartcare visit for female pt. Pt is malian speaking only and applications intern was used. Pt presents complaining of headache [...] afebrile. Lung sounds clear bilaterally. Consulted with [facility] Dr Muñoz and reviewed dosage for tylenol. Pt then stated had taken some at 3 pm and would take more if she thought she needed it . Reviewed red flags for ED. Pt education provided. ................... ................... ................... ................... ................... ................... ................... ........ [facility] Consulted: Da Muñoz ................... ................... ................... ................... ................... ................... ................... ........ Disposition: Fulfilled DA MUÑOZ MD [address] [place] [address],[address], [place], [phone], [employer] 10/20/2024 22:41:05 10/18/2024 text/html CRC Nurse Triage [...] Allergies Reviewed at 10/18/2024 - :00 Comments: Labor Relations Officer verified the member's name//address and phone number. [...] s/s and seek emergency treatment if needed. Securities Settlement Processor Organization Information for [employer] Legal Name: [employer] Address: [address] [place] [address], Order Processor: Too Welch MD [place] No.: [id number] Securities Settlement Processor POC Test Results from Efrain Oakley Urine Dipstick (16:02:19) Urine leukocytes: 70+ PORSCHE Urine nitrites: - NIT Urine urobilinogen: 0.2-3.5 URO Urine protein: 15+-0.15 PRO Urine pH: 7.0 pH Urine blood: - BLO Urine specific gravity: 1.010 SG Urine ketones: 5+-0.5 KET Urine bilirubin: - RICO Urine glucose: - GLU ................... ................... ................... ................... ................... ................... ................... ........ Securities Settlement Processor Note From Efrain Oakley: PINA makes pt contact. She is seated in a chair in her living room and she turns and greets TRISTON. She is generally well appearing, wearing a NC, and making good eye contact. No stridor or sonorous respirations are heard, no facial droop or one-sided weakness are observed, and she is not bleeding anywhere. Pt is Tajik-speaking only, so applications intern services via cell phone are attempted. Pt has difficulty hearing and understanding the applications intern, so she calls her son on FaceTime and he provides hx and translation services. Pt endorses waking up this morning feeling confused and w/ L arm pain. She is denying cp, sob, n/v/d, and no recent falls or trauma to her head or UEs. Son tells PINA pelayo has been sleeping most of the day [...] She consents to evaluation and treatment today. [facility] obtains vital signs and pt is assessed. Lung sounds are clear and nothing remarkable is noted upon physical exam. Urine sample is obtained via clean catch for culture and dip stick analysis. [facility] contacts [facility] and discusses the above. [facility] orders urine culture and a bmp. [facility] is unable to gain IV access for bmp. [facility] gives instructions for family to take pt to the ED if her confusion persists and decision about medication for possible UTI will be made after culture returns. Pt and family thank [facility] for coming. [facility] is clear. Report completed by WINSTON Oakley [id number]. [facility] Lab Orders: urinalysis, dipstick: Performed BMP, serum or plasma: Not Performed Comment: Unable to obtain adequate sample amount. ................... ................... ................... ................... ................... ................... ................... ........ [facility] Consulted: Mar Jiménez ................... ................... ................... ................... ................... ................... ................... ........ Disposition: Fulfilled Mar Jiménez MD [address] [place] [address],[address], [place], [phone], [employer] 10/18/2024 21:29:19 11/11/2024 text/html CRC Nurse Triage [...] Chronic Kidney DiseasePMH Reviewed at 11/11/2024 - :14Allergies Reviewed at 11/11/2024 - :14Comments: Patient woke up this morning with vomiting, abdominal pain and headache. Vomited 4x's today. Reporting upper mid abdominal pain. Non-radiating. Diarrhea x1. Denies fever, or dizziness/lighthead edness. Education provided on the response time and the member was advised to monitor reported s/s and seek emergency treatment if needed. Securities Settlement Processor Organization Information for [employer] Legal Name: [employer]: [address], [place] [address], Medical Director: Geo Galvin [facility] No.: [id number] Securities Settlement Processor POC Test Results from [employer] epoc (10:57:11)pH: 7.38 pH unitspCO2: 61.2 mmHgpO2: 37.6 [...] ................... ................... ................... ................... ................... ................... ........ Securities Settlement Processor Note From Guanakito Vela: This 79-year-old female [...] questions and is agreeable to this plan. [facility] Lab Orders: BMP, serum or plasma: Performed rapid flu (A+B): Performed rapid SARS CoV 2 Ag, QL IA, respiratory specimen: Performed [facility] Medication Orders: ondansetron HCl (PF) 4 mg/2 mL injection solution: Administered lactated Ringers intravenous solution: Administered ................... ................... ................... ................... ................... ................... ................... ........ [facility] Consulted: Luz Love ................... ................... ................... ................... ................... ................... ................... ........ Disposition: Fulfilled SEGMD: As above: Patient denies any known sick contacts, fever, chills, diaphoresis/dizzine ss or syncope. Luz Love MD [address] [facility],[address], [place], [address], [employer] 11/12/2024 13:27:51 OBGyn Episode No OBEpisode recorded.
--- OUTSIDE RECORDS SUMMARY | 2025-01-20 18:27 | XMS_ITS | Encounter Summary ---
Author Organization [employer] Address [address] [facility] [address] [address] 7t [place] [address] Care Team Providers Care Air Cargo Specialist Supervisor Name Role Phone Luke Gayle PharmD Unavailable Unavail able Bárbara Rader MD Primary Care Provide r Reason for Visit * Reason Comments Med Refill Encounter Details Date Type Department Care Team ([facility] st Contact Info) Description 12/15/2024 Refill [facility] MEDICINE 230 [place], [place] [phone] Bárbara Rader MD 230 [place], [place] [phone] Other hyperlipidemia Social History Tobacco Use Types [...] documented as of this encounter Care Teams Air Cargo Specialist Supervisor Relationship Specialty Start Date End Date Bárbara Rader MD [address] [place] [address] PCP - General Internal Medicine 07/16/24 Luke Gayle, PharmD Pharmacist Internal Medicine 09/04/22 [facility] 11/17/24 documented as of this encounter
--- OUTSIDE RECORDS SUMMARY | 2025-01-20 18:27 | XMS_ITS | Encounter Summary ---
Author Organization [employer] Address [address] [facility] 7t [place] [address] Care Team Providers Care Mortarman Name Role Phone Carmine Patel MD Primary Care Provider [phone] Luke Gayle PharmD Unavailable Unavail able Bárbara Rader MD Primary Care Provide r Encounter Details Date Type Department Care Team (Late st Contact Info) Description 06/21/2023 Orders Only [facility] CH[facility] MED & PEDS 505 [place], [place] [phone] Carmine Patel MD 505 [place], [place] [phone] Right hip pain (Primary Dx) Social History [...] documented as of this encounter Care Teams Mortarman Relationship Specialty Start Date End Date Carmine Patel MD 505 [place] [address] PCP - General Internal Medicine 11/16/15 07/15/24 Bárbara Rader MD [address] [place] [address] PCP - General Internal Medicine 07/16/24 Luke Gayle, PharmD [address] [place] [address] Pharmacist Internal Medicine 09/04/22 [facility] 07/10/24 11/19/24 [facility] 11/17/24 documented as of this encounter
--- OUTSIDE RECORDS SUMMARY | 2025-01-20 18:27 | XMS_ITS | Encounter Summary ---
Author Organization [employer] Address [address] [facility] 7t [place] [address] Care Team Providers Care Electronic Science Teacher Name Role Phone Carmine Patel MD Primary Care Provider [phone] Luke Gayle PharmD Unavailable Unavail able Bárbara Rader MD Primary Care Provide r Encounter Details Date Type Department Care Team (Latest Contact Info) Description 06/26/2019 Abstract [facility] CONVERSIONS Dental, Provider, DDS Social History [...] on filedocumented in this encounter Care Teams Electronic Science Teacher Relationship Specialty Start Date End Date Carmine Patel MD 505 [place] [address] PCP - General Internal Medicine 11/16/15 07/15/24 Bárbara Rader MD 230 [place] [address] PCP - General Internal Medicine 07/16/24 Luke Gayle PharmD [address] [place] [address] [place] [address] Pharmacist Internal Medicine 09/04/22 [facility] 07/10/24 11/19/24 [facility] 11/17/24 documented as of this encounter
--- OUTSIDE RECORDS SUMMARY | 2025-01-20 18:28 | XMS_ITS | Encounter Summary ---
Author Organization [employer] Address [address] [facility] 7t [place] [address] Care Team Providers Care Draw Tender Name Role Phone Carmine Patel MD Primary Care Provider [phone] Luke Gayle PharmD Unavailable Unavail able Bárbara Rader MD Primary Care Provide r Encounter Details Date Type Department Care Team (Late st Contact Info) Description 01/18/2024 Orders Only [facility] MED & PEDS 505 [place], [place] [phone] Carmine Patel MD 505 [place], [place] [phone] Urinary incontinence, unspecified type (Primary Dx) Social [...] (06/20/2024 1:00 PM EDT) Color Urine Yellow [facility] Appearance Urine Cloudy [facility] PH 6.5 5.0 - 9.0 [facility] Glucose Urine UA Negative Negative mg/dL [facility] Urine Blood Trace(A) Negative [facility] Specific Sullivan - Urine 1.010 1.005 - 1.025 [facility] Urine Protein Negative Neg-Trace mg/dL [facility] Urine Ketones Negative Negative mg/dL [facility] Nitrite Urine Negative Negative [facility] Leukocyte Esterase Urine Large (3+)(A) Negative [facility] RBC Urine 0-2 0 - 2 /HPF [facility] Urine WBC >50(A) 0 - 5 /HPF [facility] Urine Squamous Epithelial Cell 0-2 0 - 2 /HPF [facility] Urine Bacteria 4+ None [facility] Hyaline Casts, Urine 0-2 0 - 2 /LPF [facility] Urine 06/20/2024 1:00 PM EDT 06/20/2024 3:09 PM EDT Narrative [facility] - 06/20/2024 3:25 PM EDT Urine, Clean Catch Carmine Patel MD LAB URINE ORDERABLES Final Result [facility] [address] [place] [phone] [phone] documented in this encounter Visit Diagnoses Diagnosis Urinary incontinence, unspecified type- Primary documented in this encounter Additional Health Concerns Assessment Noted Time PHQ-9 Depression Total Score: 0 10/09/19 23 11:12 AM EST documented as of this encounter Care Teams Draw Tender Relationship Specialty Start Date End Date Carmine Patel MD 505 [place] [address] PCP - General Internal Medicine 11/16/15 07/15/24 Bárbara Rader MD [address] [place] [address] PCP - General Internal Medicine 07/16/24 Luke Gayle PharmD 505 [place] [address] Pharmacist Internal Medicine 09/04/22 [facility] 07/10/24 11/19/24 [facility] 11/17/24 documented as of this encounter
--- OUTSIDE RECORDS SUMMARY | 2025-01-20 18:28 | XMS_ITS | Encounter Summary ---
Author Organization [employer] Address 75 [facility] 7t [place] [address] Care Team Providers Care Curator Zoological Museum Name Role Phone Carmine Patel MD Primary Care Provider [phone] Lkue Gayle PharmD Unavailable Unavail able Bárbara Rader MD Primary Care Provide r Reason for Visit * Reason Onset Date Comments FYI 05/07/2024 Encounter Details Date Type Department Care Team ([facility] st Contact Info) Description 05/07/2024 Telephone [facility] MEDICINE 230 [place] [address] Carmine Patel MD 505 [place], [place] [phone] FYI Social History Tobacco Use Types Packs/Day [...] any questions you can contact Terence at [phone]. documented in this encounter Plan of Treatment [...] documented as of this encounter Care Teams Curator Zoological Museum Relationship Specialty Start Date End Date Carmine Patel MD [address] [place] [address] PCP - General Internal Medicine 11/16/15 07/15/24 Bárbara Rader MD [address] [place] [address] PCP - General Internal Medicine 07/16/24 Luke Gayle, JarettD 505 [place] [address] Pharmacist Internal Medicine 09/04/22 [facility] 07/10/24 11/19/24 [facility] 11/17/24 documented as of this encounter
--- OUTSIDE RECORDS SUMMARY | 2025-01-20 18:28 | XMS_ITS | Encounter Summary ---
Author Organization [employer] Address [address] [facility] 7t [place] [address] Care Team Providers Care Sewer Pipe Sorter Name Role Phone Carmine Patel MD Primary Care Provider [phone] Luke Gayle PharmD Unavailable Unavail able Bárbara Rader MD Primary Care Provide r Reason for Visit * Reason Onset Date Comments Call Back Request 02/06/2024 Encounter Details Date Type Department Care Team ([facility] st Contact Info) Description 02/06/2024 Telephone [facility] MEDICINE 230 [place] [address] Carmine Patel MD 505 [place] [address] Call Back Request Social History Tobacco Use [...] 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 Advised son on PCP recommendations for sleep [...] and nothing is happening Please contact at [phone] documented in this encounter Plan of Treatment [...] documented as of this encounter Care Teams Sewer Pipe Sorter Relationship Specialty Start Date End Date Carmine Patel MD 505 [place] [address] PCP - General Internal Medicine 11/16/15 07/15/24 Bárbara Rader MD [address] [place] [address] PCP - General Internal Medicine 07/16/24 Luke Gayle PharmD 505 [place] [address] Pharmacist Internal Medicine 09/04/22 [facility] 07/10/24 11/19/24 [facility] 11/17/24 documented as of this encounter
--- OUTSIDE RECORDS SUMMARY | 2025-01-20 18:28 | XMS_ITS | Encounter Summary ---
Author Organization [employer] Address 75 [facility] 7t [place] [address] Care Team Providers Care Sample Clerk Name Role Phone Carmine Patel MD Primary Care Provider [phone] Luke Gayle PharmD Unavailable Unavail able Bárbara Rader MD Primary Care Provide r Encounter Details Date Type Department Care Team (Late st Contact Info) Description 06/11/2024 Orders Only [facility] MED & PEDS 505 [place], [place] [phone] Carmine Patel MD 505 [place], [place] [phone] Pruritus (Primary Dx) Social History Tobacco Use [...] documented as of this encounter Care Teams Sample Clerk Relationship Specialty Start Date End Date Carmine Patel MD 505 [place] [address] PCP - General Internal Medicine 11/16/15 07/15/24 Bárbara Rader MD [address] [place] [address] PCP - General Internal Medicine 07/16/24 Luke Gayle, PharmD 505 [place] [address] Pharmacist Internal Medicine 09/04/22 [facility] 07/10/24 11/19/24 [facility] 11/17/24 documented as of this encounter
--- OUTSIDE RECORDS SUMMARY | 2025-01-20 18:28 | XMS_ITS | Encounter Summary ---
Author Organization [employer] Address [address] [facility] [address] 7t [place] [address] Care Team Providers Care Crop Scout Name Role Phone Luke Gayle PharmD Unavailable Unavail able Bárbara Rader MD Primary Care Provide r Reason for Visit * Reason Onset Date Comments Appointment Request 09/15/2024 Encounter Details Date Type Department Care Team ([facility] st Contact Info) Description 09/15/2024 Telephone [facility] MEDICINE 230 [place] [address] Bárbara Rader MD 230 [place], [place] [phone] Appointment Request Social History Tobacco Use Types [...] documented as of this encounter Care Teams Crop Scout Relationship Specialty Start Date End Date Bárbara Rader MD 230 [place] [address] PCP - General Internal Medicine 07/16/24 Luke Gayle, PharmD Pharmacist Internal Medicine 09/04/22 [facility] 07/10/24 11/19/24 [facility] 11/17/24 documented as of this encounter
--- OUTSIDE RECORDS SUMMARY | 2025-01-20 18:28 | XMS_ITS | Encounter Summary ---
Author Organization [employer] Address 75 [facility] 7t [place] [address] Care Team Providers Care College Basketball Coach Name Role Phone Carmine Patel MD Primary Care Provider [phone] Luke Gayle PharmD Unavailable Unavail able Bárbara Rader MD Primary Care Provide r Encounter Details Date Type Department Care Team (Late st Contact Info) Description 02/14/2024 Orders Only [facility] CH[facility] MED & PEDS 505 [place], [place] [phone] Carmine Patel MD 505 [place], [place] [phone] Type 2 diabetes mellitus with other specified complication, without long-term current use of insulin ([facility]) (Primary Dx) Social History Tobacco Use [...] EDT Narrative 03/31/2024 9:51 AM EDT ? [facility] ?[address] ?[place] [address] ?XRay Report ? Signed ? Patient: Calos Civico,Patricia ?MR#: [id number] ?? [id number] ? : 1945 ?Acct:[id number] ? Age/Sex: 78 / F ?ADM Date: 06/27/24 ? Loc: HO.XRAY ? Attending Dr: Ofelia Ly AGILE DEVELOPER ? Ordering Physician: Saleem Young PA-C ?? Date of Service: 03/13/24 ?? Procedure(s): XR ankle RT min 3V ?? Accession Number(s): [id number] ? cc: Carmine Patel MD; Saleem Young [...] 03/31/[address] ? DD/ 0946 ? TD/TT: ? Medical File Clerk: ? Procedure Note Dara Sanchez - 03/31/[address] [address] XRay Report Signed Patient: Magalie Solis MMR#: [id number] : 6Acct:[id number] Age/Sex: 78 / FADM Date: 03/13/24 Loc: HO.XRAY Attending Dr: Ofelia Ly NP Ordering Physician: Saleem Young PA-C Date of Service: 03/13/24 Procedure(s): XR ankle RT min 3V Accession Number(s): [id number] cc: Carmine Patel MD; Saleem Young PA-C [...] callus formation. This study was presented to ut March 31, 2024 for interpretation. PSA staff will provide results to referring provider at this time. Dictated By: Tierra Worthy MD Signed By: <Electronically signed by Tierra Worthy MD in OV> 03/31/2449 DD/ TD/TT: Medical File Clerk: [facility] External Provider IMG XR PROCEDURES Final Result * BI Mammogram Additional Views Right (03/12/2024 2:15 PM EDT) Anatomical Region Laterality Modality Breast Right Mammography 03/12/2024 2:15 PM EDT Narrative 03/12/2024 3:08 PM EDT ? [facility] ? [address] ?[place], [place] [address] ? Mammography Report ? Signed ? Patient: Calos,Patricia ?MR#: [id number] ?? [id number] ? : 1945 ?Acct:[id number] ? Age/Sex: 78 / F ?ADM Date: 03/12/24 ? Loc: HO.MAMMO ? Attending Dr: Carmine Patel MD ? Ordering Physician: Carmine Patel MD ?Results: 2 ?? Benign Findings ? Date of Service: 03/12/24 ?Follow Up: 1 Year From Orig ?? inal Mammogram ? Procedure(s): MM added views RT ?? Accession Number(s): [id number] ? cc: Carmine Patel MD ? EXAMINATION: [...] 1504 ? DD/ 1415 ? TD/TT: ? Medical File Clerk: ? Procedure Note Laura, Image - 03/12/2024 [facility] [address] [place] [address] Mammography Report Signed Patient: Magalie Live MMR#: [id number] : 6Acct:[id number] Age/Sex: 78 / FADM Date: 03/12/24 Loc: JAVI Attending Dr: Carmine Patel MD Ordering Physician: Carmine Patel MDResults: 2 Benign Findings Date of Service: 03/12/24Follow Up: 1 Year From Orig inal Mammogram Procedure(s): MM added views RT Accession Number(s): [id number] cc: Carmine Patle MD EXAMINATION: MM DIAGNOSTIC DIGITAL MAMMOGRAPHY, RIGHT CLINICAL INFORMATION: Follow-up diagnostic views for calcifications seen right breast upper-outer quadrant on screening exam. COMPARISON: Mammography: 02/05/2024. Exams dating back to 2018 and 2015. TECHNIQUE: Digital mammography is performed [...] in OV> 03/12/24 1504 DD/ 1415 TD/TT: Medical File Clerk: us Carmine Patel MD IMG BI PROCEDURES Final Res ult documented in this encounter Visit Diagnoses Diagnosis Type 2 diabetes mellitus with other specified complication, without long-term current use of insulin ([facility])- Primary documented in this encounter Additional Health Concerns Assessment Noted Time PHQ-9 Depression Total Score: 0 10/09/19 23 11:12 AM EST documented as of this encounter Care Teams College Basketball Coach Relationship Specialty Start Date End Date Carmine Patel MD [address] [place] [address] PCP - General Internal Medicine 11/16/15 07/15/24 Bárbara Rader MD [address] [place] [address] PCP - General Internal Medicine 07/16/24 Luke Gayle, JarettD [address] [place] [address] Pharmacist Internal Medicine 09/04/22 [facility] 07/10/24 11/19/24 [facility] 11/17/24 documented as of this encounter
--- OUTSIDE RECORDS SUMMARY | 2025-01-20 18:28 | XMS_ITS | Clinical Summary ---
Author Organization [facility] Address [address] [place] [address] Phone Care Team Providers Care Mica Plate Layer Hand Name Role Phone Carmine Patel MD Primary [...] every morning 04/04/2023 Active ergocalciferol 1.25 MG (91679 UT) capsule 50,000 Units 1 (one) time [...] Visit [facility] [address] [place] [address] Rubin Cordero MD [address] [facility] [address] [place] [address] Health Maintenance Due Date Last [...] patient's age to complete this topic Insurance [facility] ([id number]) [facility] ([id number]) ZUHAIR [place]BLERO [id number] Care Teams Mica Plate Layer Hand Relationship Specialty Start Date End Date Carmine Patel MD PCP - General Internal Medicine 05/02/21
--- OUTSIDE RECORDS SUMMARY | 2025-01-20 18:28 | XMS_ITS | Encounter Summary ---
Author Organization [employer] Address [address] [place] [address] 7t [place] [address] Care Team Providers Care Leather Goods I Assembler Name Role Phone Carmine Patel MD Primary Care Provider [phone] Luke Gayle PharmD Unavailable Unavail able Bárbara Rader MD Primary Care Provide r Reason for Referral * Consultation (Routine) - Closed Specialty Diagnoses / Procedures Referred By Alden andres Referred To Contact Physical Therapy Diagnoses Acute right ankle pain Carmine Patel MD [address] [place] [address] Phone: tel: fax: [facility] Physical Therapy [address] [place] [address] Phone: tel: fax: Referral ID Status Reason Start Date Expiration Date V isits Requested Visits Authorized [id number] Closed Specialty Services Required 03/28/2024 03/28/2025 1 1 Encounter Details Date Type Department Care Team (Late st Contact Info) Description 03/24/2024 Orders Only [facility] MED & PEDS 505 [place], [place] [phone] Carmine Patel MD [address] [place] [address] Acute right ankle pain (Primary Dx) Social [...] Luke, PharmD documented as of this encounter Procedures Procedure Name Priority Date/Time Associated Diagnosis Comments XR KNEE 4+ VIEWS RIGHT Routine 03/28/2024 11:51 AM EDT documented in this encounter Results * XR Knee 4+ Views Right (03/28/2024 11:51 AM EDT) Anatomical Region Laterality Modality Lower Extremities, Knee Right Radiogra phic Imaging 03/28/2024 11:5 1 AM EDT Narrative 03/28/2024 12:12 PM EDT ? [facility] ?[address] ?[place] [address] ?XRay Report ? Signed ? Patient: Calos EmilMagalie Armenta ?MR#: [id number] ?? [id number] ? : 1945 ?Acct:[id number] ? Age/Sex: 78 / F ?ADM Date: 03/28/24 ? Loc: HO.ED ? Attending Dr: ? Ordering Physician: Elzbieta Franz ?? Date of Service: 03/28/24 ?? Procedure(s): XR knee RT 4V ?? Accession Number(s): [id number] ? cc: Carmine Patel MD; Elzbieta Franz [...] 1208 ? DD/ 1151 ? TD/TT: ? Irrigation Pump Installer: ? Procedure Note Luis Manuelmaria eDara hwang - 03/28/2024 [place] [address] XRay Report Signed Patient: Magalie Solis MMR#: [id number] : 6Acct:[id number] Age/Sex: 78 / FADM Date: 03/28/24 Loc: HO.ED Attending Dr: Ordering Physician: Elzbieta Franz Date of Service: 03/28/24 Procedure(s): XR knee RT 4V Accession Number(s): [id number] cc: Carmine Patel MD; Elzbieta Franz EXAMINATION: [...] in OV> 03/28/24 1208 DD/ 1151 TD/TT: Irrigation Pump Installer: [facility] External Provider IMG XR PROCEDURES Final Result documented in this encounter Visit Diagnoses Diagnosis Acute right ankle pain- Primary documented in this encounter Additional Health Concerns Assessment Noted Time PHQ-9 Depression Total Score: 0 10/09/19 23 11:12 AM EST documented as of this encounter Care Teams Leather Goods I Assembler Relationship Specialty Start Date End Date Carmine Patel MD [address] [place] [address] PCP - General Internal Medicine 11/16/15 07/15/24 Bárbara Rader MD [address] [place] [address] PCP - General Internal Medicine 07/16/24 Luke Gayle PharmD [address] [place] [address] Pharmacist Internal Medicine 09/04/22 [facility] 07/10/24 11/19/24 [facility] 11/17/24 documented as of this encounter
[2025-01-20 18:30] VITALS: BP 180/70; PULSE 69; RESP 18; TEMP 36.6; O2SAT 96
== END 2025-01-20 18:30 | disposition home or self-care (01) ==
PROVIDERS: Emergency Provider Emergency Medicine; PCP Internal Medicine
DX: R21 Rash and other nonspecific skin eruption (principal)
CPT/HCPCS: 99283

== ENCOUNTER 2025-01-26 11:37 | Outpatient (AMB) | payer OTHER, SELFPAY ==
--- NOTE | 2025-01-26 11:39 | A.OFFVIS_ITS ---
Intake Visit Reasons: 3 month follow up Intake Note: Patient is present for 3 month follow up Urology Medication:VIBEGRON Antibiotic Allergy:NONE Blood Thinner:NONE PVR:0ml Drafter Topographical Required: Yes Allergies No Known Allergies (No Known Allergies*) Allergy (Verified 02/26/25 13:29) Medication List - Last Reconciled 01/26/25 by Beena Pritchard MD acetazolamide 500 mg (2 x 250 mg) PO BID albuterol sulfate 90 mcg/actuation 2 puffs inhalation Q6H PRN albuterol sulfate 2.5 mg inhalation Q6H PRN carvedilol 12.5 mg See Protocol PO BID cefuroxime axetil 250 mg PO BID cetirizine (Zyrtec) 10 mg PO DAILY PRN ergocalciferol (vitamin D2) 1,250 mcg PO MO famotidine 20 mg PO BID fluconazole 150 mg PO DAILY furosemide 40 mg PO DAILY hydralazine 25 mg PO TID hydrocortisone 1% 1 appl topical BID PRN insulin glargine (Lantus U-100 Insulin) 20 units (0.2 mL) subcut BEDTIME insulin lispro (Humalog KwikPen (U-100) Insulin) 5 units subcut DAILY lancets (TRUEplus Lancets) As directed losartan 50 mg PO BID ondansetron mg PO pantoprazole 20 mg PO DAILY@0630 pravastatin 40 mg PO BEDTIME sitagliptin phos-metformin 50-1,000 mg ER (Janumet XR) 1 tab PO DAILY spironolactone 25 mg PO DAILY vibegron (Gemtesa) 75 mg PO DAILY HPI Comments Details: 01/26/25-- History of Present Illness The patient is a 79-year-old female presenting with management of overactive bladder symptoms. Since beginning treatment with Vibegron (Gemtesa), she has noted an alleviation in the frequency of bladder leakage episodes. Currently, the patient experiences no urinary tract infection symptoms and rem ains adherent to her medication regimen. This is augmented by the absence of a recent history of UTIs, with no complaint of issues such as nocturnal enuresis, pain, or pressure during urination, indicating stable management of the overactive bladder. Urinary Symptoms Review - Overactive bladder symptoms reported - Reduction in bladder leakage episodes with Gemtesa - No current symptoms of urinary tract infection - Medication adherence to Vibegron (Gemtesa) plan - Cont gemtesa, follow-up in one year unless issues arise. In case of urinary symptoms suggestive of a UTI, she was advised to contact the nurse to facilitate the appropriate investigations. 10/27/24--here for office cystoscopy--She is being evaluated due to urinary incontinence and recurrent UTI's. CoMorbidity-h/o Nicotine use. She was started on gemtesa and she states med is helping. Cystoscopy findings: no suspicious bladder lesions. Catheterized urine sent for surveillance urine culture. 09/11/24--Magalie is a 79 year old female who is here for evaluation for urinary inconcontinence and recurrent UTI's. She was seen in the [facility] on 08/06/24 with complaints of left lower quadrant and suprapubic pain. CTAP- 08/06/24 - no acute findings. The patient complains of daytime urinary frequency every 2 hours, wears a pad, nocturia 2-3x, denies hematuria. Comorbidity DM, CHF, NICO I have discussed avoiding dietary bladder irritants, including to cut back on caffeine usage. Trial gemtesa. FU office cystoscopy CTAP-- 08/06/24-GENITOURINARY: No contour deforming masses. No perinephric fluid collection. No renal calculi. No hydroureteronephrosis. REPRODUCTIVE: Uterus and and bilateral adnexa are unremarkable. 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 indication of end stage renal disease in patient 6 to 64 years of age Lymphadenopathy Abdominal pain Bursitis of right hip Osteoarthritis of right hip Restrictive ventilatory defect Dyspnea on exertion Varicose veins of right lower extremity with inflammation Pneumonitis Pulmonary hypertension Hypertensive cardiovascular disease Acute hypoxic on chronic hypercapnic respiratory failure Acute on chronic respiratory failure with hypoxemia Obesity hypoventilation syndrome GERD (gastroesophageal reflux disease) Hypertension Diabetes mellitus COPD (chronic obstructive pulmonary disease) Surgical History S/P laparoscopic cholecystectomy (07/14/21) Family History Mother Diabetes Social History Household Members: Unknown / Unable to assess Household Members Other:: cousin Housing: Unknown / Unable to assess Do you presently have visiting nurse or other home services: No Unable to assess alcohol history related to: Unknown Alcohol intake: never Patient Tobacco Use Status: Former Tobacco user Tobacco use type: Cigarette Years Smoked: 20 Advance Directives Date on File: 02/22/22 service: No Current occupational status: unemployed and disabled Review of Systems Const All systems reviewed & are unremarkable except as noted in HPI and below Reports no additional complaints Eyes Reports no additional complaints ENT Reports no additional complaints Card Reports no additional complaints Resp Reports no additional complaints GI Reports no additional complaints Reports as per HPI Musc Reports no additional complaints Skin/Breast Reports system reviewed and no additional complaints, except as documented Neuro Reports no additional complaints Psych Reports no additional complaints Endo Reports no additional complaints Ralph/Lymph Reports no additional complaints Aller/Immun Reports no additional complaints Assessment & Plan Assessment & Plan (1) Recurrent UTI: Code(s): N39.0 - Urinary tract infection, site not specified Category: Medical (2) Unspecified urinary incontinence: Code(s): R32 - Unspecified urinary incontinence Category: Medical (3) Urinary frequency: Code(s): R35.0 - Frequency of micturition Category: Medical Plan Continue treatment with Vibegron Gemtesa) once daily for managing overactive bladder symptoms. FU one year Medications: New vibegron (Gemtesa) 75 mg PO DAILY 90 tabs 3RF Patient Instructions: The patient had an opportunity to ask questions regarding treatment plan. The patient expressed understanding and agreement with the above treatment plan. The patient is aware they should contact our office by phone for worsening of their current condition or the appearance of new symptoms. Compliance is encouraged with any medications and followup testing that is ordered. It is a privilege to be allowed the opportunity to participate in the urologic care of your patient. If you have any questions or concerns regarding treatment for the above conditions please do not hesitate to contact me. The office telephone contact is [phone]. This note is constructed in part using voice recognition software. While every effort has been made to ensure accuracy asphalt distributor operator errors may have been included. Yours sincerely, Beena Pritchard MD Scribe Plan - Not visible on output: Patient was informed and verbally consented to the use of an ambient scribe for clinic note documentation during this visit. Coding Level of Care Code Est Pt Level 3 (41334) Complex EM visit Add On G2211 Diagnoses Recurrent UTI N39.0 Unspecified urinary incontinence R32 Urinary frequency R35.0
--- OUTSIDE RECORDS SUMMARY | 2025-01-26 12:24 | XMS_ITS | Encounter Summary ---
Author Organization [employer] Address [address] [facility] 7t [place] [address] Care Team Providers Care Moth Proofer Name Role Phone Carmine Patel MD Primary Care Provider [phone] Luke Gayle PharmD Unavailable Unavail able Bárbara Rader MD Primary Care Provide r Reason for Visit * Reason Onset Date Comments FYI 05/07/2024 Encounter Details Date Type Department Care Team ([facility] st Contact Info) Description 05/07/2024 Telephone [facility] MEDICINE [address] [place] [address] Carmine Patel MD [address] [place], [place] [phone] FYI Social History Tobacco Use Types Packs/Day [...] any questions you can contact Terence at [phone]. documented in this encounter Plan of Treatment [...] documented as of this encounter Care Teams Moth Proofer Relationship Specialty Start Date End Date Carmine Patel MD [address] [place] [address] PCP - General Internal Medicine 11/16/15 07/15/24 Bárbara Rader MD [address] [place] [address] PCP - General Internal Medicine 07/16/24 Luke Gayle, JarettD [address] [place] [address] Pharmacist Internal Medicine 09/04/22 [facility] 07/10/24 11/19/24 [facility] 11/17/24 documented as of this encounter
--- OUTSIDE RECORDS SUMMARY | 2025-01-26 12:24 | XMS_ITS | Encounter Summary ---
Author Organization [employer] Address [address] [facility] [address] 7[address] [place] [address] Care Team Providers Care Wound Care Rn Name Role Phone Luke Gayle PharmD Unavailable Unavail able Bárbara Rader MD Primary Care Provide r Reason for Visit * Reason Onset Date Comments Appointment Request 09/15/2024 Encounter Details Date Type Department Care Team ([facility] st Contact Info) Description 09/15/2024 Telephone [facility] MEDICINE [address] [place] [address] Bárbara Rader MD [address] [place], [place] [phone] Appointment Request Social History Tobacco Use Types [...] documented as of this encounter Care Teams Wound Care Rn Relationship Specialty Start Date End Date Bárbara Rader MD [address] [place] [address] PCP - General Internal Medicine 07/16/24 Luke Gayle, PharmD Pharmacist Internal Medicine 09/04/22 [facility] 07/10/24 11/19/24 [facility] 11/17/24 documented as of this encounter
--- OUTSIDE RECORDS SUMMARY | 2025-01-26 12:24 | XMS_ITS | Encounter Summary ---
Author Organization [employer] Address [address] [facility] 7t [place] [address] Care Team Providers Care Health Lead Name Role Phone Carmine Patel MD Primary Care Provider [phone] Luke Gayle PharmD Unavailable Unavail able Bárbara Rader MD Primary Care Provide r Reason for Visit * Reason Onset Date Comments FYI 02/15/2024 Encounter Details Date Type Department Care Team ([facility] st Contact Info) Description 02/15/2024 Telephone [facility] MED & PEDS [address] [place], [place] [phone] Carmine Patel MD [address] [place], [place] [phone] FYI Social History Tobacco Use Types Packs/Day [...] - 02/15/2024 3:07 PM EDT Tc from [facility] with Tiffany calling to report pt has [...] documented as of this encounter Care Teams Health Lead Relationship Specialty Start Date End Date Carmine Patel MD [address] [place] [address] PCP - General Internal Medicine 11/16/15 07/15/24 Bárbara Rader MD [address] [place] [address] PCP - General Internal Medicine 07/16/24 Luke Gayle, PharmD [address] [place] [address] Pharmacist Internal Medicine 09/04/22 [facility] 07/10/24 11/19/24 [facility] 11/17/24 documented as of this encounter
--- OUTSIDE RECORDS SUMMARY | 2025-01-26 12:24 | XMS_ITS | Encounter Summary ---
Author Organization [employer] Address [address] [facility] 7t [place] [address] Care Team Providers Care Finisher Card Tender Name Role Phone Carmine Patel MD Primary Care Provider [phone] Luke Gayle PharmD Unavailable Unavail able Bárbara Rader MD Primary Care Provide r Encounter Details Date Type Department Care Team (Late st Contact Info) Description 01/18/2024 Orders Only [facility] CH[facility] MED & PEDS [address] [place], [place] [phone] Carmine Patel MD [address] [place], [place] [phone] Urinary incontinence, unspecified type (Primary Dx) Social [...] (06/20/2024 1:00 PM EDT) Color Urine Yellow [facility] Appearance Urine Cloudy [facility] PH 6.5 5.0 - 9.0 [facility] Glucose Urine UA Negative Negative mg/dL [facility] Urine Blood Trace(A) Negative [facility] Specific [place] - Urine 1.010 1.005 - 1.025 [facility] Urine Protein Negative Neg-Trace mg/dL [facility] Urine Ketones Negative Negative mg/dL [facility] Nitrite Urine Negative Negative [facility] Leukocyte Esterase Urine Large (3+)(A) Negative [facility] RBC Urine 0-2 0 - 2 /HPF [facility] Urine WBC >50(A) 0 - 5 /HPF [facility] Urine Squamous Epithelial Cell 0-2 0 - 2 /HPF [facility] Urine Bacteria 4+ None Seen [facility] Hyaline Casts, Urine 0-2 0 - 2 /LPF [facility] Urine 06/20/2024 1:00 PM EDT 06/20/2024 3:09 PM EDT Narrative [facility] - 06/20/2024 3:25 PM EDT Urine, Clean Catch Carmine Patel MD LAB URINE ORDERABLES Final Result [facility] [address] [place] [phone] documented in this encounter Visit Diagnoses Diagnosis Urinary incontinence, unspecified type- Primary documented in this encounter Additional Health Concerns Assessment Noted Time PHQ-9 Depression Total Score: 0 10/09/19 23 11:12 AM EST documented as of this encounter Care Teams Finisher Card Tender Relationship Specialty Start Date End Date Carmine Patel MD [address] [place] [address] PCP - General Internal Medicine 11/16/15 07/15/24 Bárbara Rader MD [address] [place] [address] PCP - General Internal Medicine 07/16/24 Luke Gayle PharmD [address] [place] [address] Pharmacist Internal Medicine 09/04/22 [facility] 07/10/24 11/19/24 [facility] [place] 11/17/24 documented as of this encounter
--- OUTSIDE RECORDS SUMMARY | 2025-01-26 12:24 | XMS_ITS | Clinical Summary ---
Author Organization [employer] Address [address] [facility] [address] 7[address] [place] [address] Care Team Providers Care Rubber Goods Assembler Name Role Phone Luke Gayle PharmD [...] complication, without long-term current use of insulin ([facility]) Inject 5 Units under the skin with breakfast, with lunch, and with evening meal. Inject 5 units under the skin three times a day with meals and at bedtime 10 mL 02/14/20 24 Active pen needle 33G x 4 mm misc Inject 1 each under the skin 4 times daily. Use as instructed 360 each 3 02/14/20 24 2024 Active Continuous Glucose Calender Tender (FreeStyle Silvana 2 Dunbar) deviceIndications :Type 2 diabetes mellitus with other [...] 2024 Active Blood Glucose Monitoring Suppl (FreeStyle Earleton Lite) w/Device kitIndications:Ty pe 2 diabetes mellitus with other specified complication, without long-term current use of insulin (CMS/HCC) Use to test blood sugar 2 times daily 1 kit 02/27/20 24 Active ergocalciferol (Vitamin D2) 1.25 MG (08109 UT) capsule TAKE ONE CAPSULE EVERY WEEK [...] I advised for her to go and pick remover her medication at the pharmacy (new medication [...] Type Department Care Team Description 01/07/2025 Refill [facility] MEDICINE [address] [place] [address] Carmine Patel MD 12/15/2024 Refill [facility] MEDICINE [address] [place] [address] Bárbara Rader MD Other hyperlipidemia; Stage 3a chronic kidney disease (CMS/HCC) 12/15/2024 Refill [facility] MEDICINE [address] [place] [address] Bárbara Rader MD Other hyperlipidemia 12/15/2024 Refill [facility] MED[facility]INE [address] [place] [address] Carmine Patel MD 11/25/2024 9:00 AM EDT Office Visit [facility] [place] [address] Bárbara Rader MD Primary hypertension (Primary Dx); Type 2 diabetes mellitus with other specified complication, without long-term current use of insulin (CMS/HCC); Chronic respiratory failure with hypoxia and hypercapnia ([facility]/HCC); Left ventricular diastolic dysfunction; Bilateral leg weakness 11/25/2024 Travel 11/21/2024 Telephone [facility] [place] [address] Bárbara Rader MD Chart Prep 11/18/2024 Patient Outreach [facility] [place] [address] Bárbara Rader MD Pre-visit Planning ((Unable to reach for PVP screening, LVM)) 11/05/2024 Refill [facility] [place] [address] Bárbara Rader MD Epigastric pain 11/04/2024 Refill [facility] [address] [place] [address] Carmine Patel MD Epigastric pain from Last 3 Months Immunizations Name Administration Dates Next Due Influenza High-dose Quadriva lent Preservative Free 06/18/2023,06/09/2022,07/07/2021 Influenza injectable quadriv alent IIV4 with preservative 07/27/2016 Influenza, High Dose Seasona l, Preservative Free 06/03/2024,07/16/2019,07/31/2018,06/06 Influenza, IIV3, injectable 07/27/2014, 3,07/05/2011 Influenza, Split (incl. efren fied surface antigen) 07/19/2012 Influenza, intradermal, quad rivalent, preservative free 05/15/2016 Influenza, seasonal, injecta ble, preservative free 05/28/2020 Novel [id number], all formulations 05/15/2016 Pneumococcal Conjugate PCV 13 [...] your housing situation today? I have truman gerene 07/09/[address] you li [...] 07/19/2022 07/19/2012 COVID-19 Vaccine ( season) 2024 02/09/2022, 08/31/2021, 12/22/2020, Additional history exists Eye Exam 08/22/2024 08/22/2023 [...] POCT HGB A1C (11/25/2024 9:07 AM EDT) Pathologist [facility] Hemoglobin A1C 6.5(A) 4.0 - 6.0 % QC Media Lot # [id number] Lot# Expiration Date Blood 11/25/2024 9:07 AM EDT Bárbara Raymundo MD POINT OF CARE TEST EN TER/EDIT ORDERABLES Final Result * POCT Glucose (11/25/2024 9:07 AM EDT) Pathologist [facility] Glucose Blood, POC 115 60 - 200 mg/dL Comment:FASTING QC Media Lot # [id number] Lot# Expiration Date Blood Capillary blood specimen / Unknown 11/25/2024 9:07 AM EDT Bárbara Raymundo MD POINT OF CARE TEST EN TER/EDIT ORDERABLES Final Result * Hepatitis C Antibody with Reflex to HCV, RNA, Quantitative, Real-Time PCR (06/20/2024 2:54 PM EDT) Pathologist [facility] Hepatitis C Antibody Nonreactive Nonreactive [facility] Comment:Antibodies to HCV no t detected; does not exclude early acuteHCV infection. Blood Venous blood specimen / Unknown 06/20/2024 2:54 PM EDT 06/20/2024 2:54 PM EDT us Carmine Patel MD LAB BLOOD ORDERABLES Final Result Performing Organization Address [facility] Co de Phone Number [facility] [address] [place] [phone] * Lipid Panel, Standard (06/20/2024 2:54 PM EDT) Triglycerides 81 <150 mg/dL [facility] Comment:Desirable Triglyceri de: less than 150 mg/dLBorderline High Triglyceride 150-199 mg/dLHigh Triglyceride: 200-499 mg/dLVery High Triglyceride: greater than or equal to 5OO mg/dL Cholesterol 152 <200 mg/dL [facility] Comment:Desirable Cholestero l: less than 200 mg/dLBorderline High Cholesterol: 200-239 mg/dLHigh Cholesterol: greater than 239 mg/dL LDL Cholesterol Calculated 86 <100 mg/dL [facility] Comment:Desirable LDL: less than 100 mg/dLNear Optimal/Above Optimal LDL: 110- 129 mg/dLBorderline High LDL: 130-159 mg/dLHigh LDL: 160-189 mg/dLVery High LDL: greater than or equal to 190 mg/dL HDL Cholesterol 50 >40 mg/dL [facility] Comment:Desirable HDL: great er than 40 mg/dL Note: This HDL assay may give artificially low results in patients with liver disease. Blood Venous blood specimen / Unknown 06/20/2024 2:54 PM EDT 06/20/2024 2:54 PM EDT us Carmine Patel MD LAB BLOOD ORDERABLES Final Result Performing Organization Address [facility]/ZIP Co de Phone Number [facility] [address] [place] [phone] * (ABNORMAL) Albumin, Random Urine W/Creatinine (06/20/2024 1:00 PM EDT) Creatinine, Urine 35.87 mg/dL [facility] Microalbumin Urine 19.0 mg/L H [facility] Microalbum Creatinine Ratio Ur 52.9(H) <30 ug/mg cr [facility] Comment:Albumin/Creatinine R atio Reference Ranges: Normal: < 30 ug/mg creatinine Microalbuminuria: 30 - 300 ug/mg creatinineClinical Albuminuria: > 300 ug/mg creatinine Urine (Urine, Random) 06/20/2024 1:00 PM EDT 06/20/2024 3:09 PM EDT us Carmine Patel MD LAB URINE ORDERABLES Final Result [facility] [address] [place] [address] [phone] from Last 3 Months or Most Recently Relevant to Health Maintenance Insurance [facility] JAIL OPTIONS (O D-SNP) ZUHAIR ROBLERO [id number] Care Teams Rubber Goods Assembler Relationship Specialty Start Date End Date Bárbara Rader MD [address] [place] [address] PCP - General Internal Medicine 07/16/24 Luke Gayle PharmD Pharmacist Internal Medicine 09/04/22 [facility] 11/17/24
--- OUTSIDE RECORDS SUMMARY | 2025-01-26 12:24 | XMS_ITS | Encounter Summary ---
Author Organization [employer] Address [address] [facility] 7t [place] [address] Care Team Providers Care Windows Infrastructure Engineer Name Role Phone Carmine Patel MD Primary Care Provider [phone] Luke Gayle PharmD Unavailable Unavail able Bárbara Rader MD Primary Care Provide r Encounter Details Date Type Department Care Team ([facility] st Contact Info) Description 06/26/2024 Orders Only [facility] CH[facility] MED & PEDS [address] [place], [place] [phone] Carmine Patel MD [address] [place], [place] [phone] Burning sensation (Primary Dx) Social History Tobacco [...] documented as of this encounter Care Teams Windows Infrastructure Engineer Relationship Specialty Start Date End Date Carmine Patel MD [address] [place] [address] PCP - General Internal Medicine 11/16/15 07/15/24 Bárbara Rader MD [address] [place] [address] PCP - General Internal Medicine 07/16/24 Luke Gayle, PharmD [address] [place] [address] Pharmacist Internal Medicine 09/04/22 [facility] 07/10/24 11/19/24 [facility] 11/17/24 documented as of this encounter
--- OUTSIDE RECORDS SUMMARY | 2025-01-26 12:24 | XMS_ITS | Encounter Summary ---
Author Organization [employer] Address [address] [facility] 7t [place] [address] Care Team Providers Care Human Resource Manager Name Role Phone Carmine Patel MD Primary Care Provider [phone] Luke Gayle PharmD Unavailable Unavail able Bárbara Rader MD Primary Care Provide r Reason for Visit * Reason Onset Date Comments Call Back Request 02/06/2024 Encounter Details Date Type Department Care Team ([facility] st Contact Info) Description 02/06/2024 Telephone [facility] MEDICINE [address] [place] [address] Carmine Patel MD [address] [place] [address] Call Back Request Social History Tobacco Use [...] 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 Advised son on PCP recommendations for [...] and nothing is happening Please contact at [phone] documented in this encounter Plan of Treatment [...] documented as of this encounter Care Teams Human Resource Manager Relationship Specialty Start Date End Date Carmine Patel MD [address] [place] [address] PCP - General Internal Medicine 11/16/15 07/15/24 Bárbara Rader MD [address] [place] [address] PCP - General Internal Medicine 07/16/24 Luke Gayle PharmD [address] [place] [address] Pharmacist Internal Medicine 09/04/22 [facility] 07/10/24 11/19/24 [facility] 11/17/24 documented as of this encounter
--- OUTSIDE RECORDS SUMMARY | 2025-01-26 12:24 | XMS_ITS | Clinical Summary ---
Author Organization [facility] Address [address] [place] [address] Phone Care Team Providers Care Fire Fighting Equipment Specialist Name Role Phone Carmine Patel MD [...] every morning 04/04/2023 Active ergocalciferol 1.25 MG (95415 UT) capsule 50,000 Units 1 (one) time [...] Visit [facility] [address] [place] [id number] Rubin Cordero MD [address] [facility] [address] [place] [address] Health Maintenance Due Date Last [...] patient's age to complete this topic Insurance [facility] ([id number]) [facility] ([id number]) ZUHAIR ROBLERO [id number] Care Teams Fire Fighting Equipment Specialist Relationship Specialty Start Date End Date Carmine Patel MD PCP - General Internal Medicine 05/02/21
--- OUTSIDE RECORDS SUMMARY | 2025-01-26 12:24 | XMS_ITS | Encounter Summary ---
Author Organization [employer] Address [address] [place] [address] Care Team Providers Care Hvac Manager Name Role Phone Luke Gayle PharmD Unavailable Unavail able Bárbara Rader MD Primary Care Provide r Reason for Visit * Reason Onset Date Comments Durable Medical Equipment 09/03/2024 Encounter Details Date Type Department Care Team ([facility] st Contact Info) Description 09/03/2024 Telephone [facility] [address] [place] [address] Bárbara Rader MD [address] [place], [place] [phone] Durable Medical Equipment Social History Tobacco Use [...] - 09/03/2024 1:40 PM EST Tc from [facility] requesting a large commode. States the one pt has is to small. Anyfurther questions may contact phone # [phone]. documented in this encounter Plan of Treatment [...] documented as of this encounter Care Teams Hvac Manager Relationship Specialty Start Date End Date Bárbara Rader MD [address] [place] [address] PCP - General Internal Medicine 07/16/24 Luke Gayle, PharmD Pharmacist Internal Medicine 09/04/22 [facility] 07/10/24 11/19/24 [facility] 11/17/24 documented as of this encounter
--- OUTSIDE RECORDS SUMMARY | 2025-01-26 12:24 | XMS_ITS | Data Portability ---
Author Organization [facility], [place] - [facility] Address [address] [place] [address] Care Team Providers Care Conveyor Technician Name Role Phone HIM CCA OTHER [facility] OTHER [phone] Assessment Encounter Date Assessment Date Assessment LastModified [...] q6hr PRN. FUP with PCP. Precautions reviewed. [email or web address] Not available 10/20/2024 22:40:59 11/11/2024 11/11/2024 I provided real -time medical direction via phone for this encounter, and was available for additional phone based assistance as needed. I have reviewed and agree with the Assessment and Plan as documented by the Residency Director. We discussed the diagnostic uncertainty of home [...] to call 911- verbalized understanding of instruction Not available 11/11/2024 11:09:06 Plan of Treatment Reminders Order Date Submit Date Provider Last Modified By Organization Details Last Modified Time Details Appointments None recorded. Lab BMP, serum or plasma 2024 025 [facility], [address] [place] [address], [id number] 5 08:12:40 rapid flu (A+B) 2024 025 [email or web address] 0 Main - [facility], [address] [place] [address], [phone] 17:59:22 rapid SARS CoV 2 Ag, QL IA, respiratory specimen 2024 025 [email or web address] 0 Main - [facility], [address] [place] [address], [address] [place] [address] 17:59:22 urinalysis, dipstick 2024 025 [email or web address] Main - [facility], [address] [place] [address], [address] [place] [address] 16:56:12 BMP, serum or plasma 2024 [email or web address] [facility], [address] [place] [address], [address] [place] [address] 16:56:12 culture, urine 2024 AFSHIN [facility] (Centralized Electronic Ordering - All Locations), Patient Can Go To The Location Of Their Choice, [address] 10:05:34 rapid flu (A+B) 2024 025 AFSHIN [facility], [address] [place] [address], [id number] 19:51:19 glucose, fingerstick , blood 2024 025 [email or web address] [facility], [address] [place] [address], [id number] 18:03:29 Referral None recorded. Procedures None recorded. Surgeries None recorded. Imaging electrocard iogram 2024 025 [email or web address] 0 Main - [facility], [address] [place] [address], [id number] 17:59:23 electrocard iogram 2024 025 [email or web address] [facility], [address] [place] [address], [id number] 18:07:21 Medication Orders ondansetron HCl (PF) 4 mg/2 mL injection solution 2024 025 [email or web address] 0 [facility], [address] [place] [address], [id number], 5 17:59:21 lactated Ringers intravenous solution 2024 025 [email or web address] 0 [facility], [address] [place] [address], [id number], 5 17:59:21 ondansetron 4 mg disintegrat ing tablet 2024 025 [facility], [address] [place] [address], [id number], 5 09:13:59 sulfamethox azole 800 mg-trimetho prim 160 mg tablet 2024 025 [facility], [address] [place] [address], [id number], 5 11:07:13 Tylenol Extra Strength 500 mg tablet 2024 025 [email or web address] 7 [facility], [address] [place] [address], [id number], 5 20:55:03 Proventil HFA 90 mcg/actuati on aerosol inhaler 2024 025 [facility], [address] [place] [address], [id number], 5 13:00:53 ipratropium 0.5 mg-albutero l 3 mg (2.5 mg base)/3 mL nebulizatio n soln 2024 025 [facility], [address] [place] [address], [id number], 5 17:16:48 azithromyci n 250 mg tablet 2024 025 [email or web address] [facility], [address], [place], [id number], 5 18:04:54 azithromyci n 250 mg tablet 2024 025 [facility], [address], [place], [id number], 5 13:00:49 Patient TargetsNo targets recorded. Patient InstructionsNo instructions recorded. Reason for Referral None Reported. Results Created Date Observation Date Name Description Value Unit Range Abnormal Flag Note LastModifiedBy Organization Detail LastModifiedTime 10/03/1910/03/2024 rapid flu (A+B) Flu negati ve Not Available Main - [facility] ed [address] [place] [address], [id number] 10/03/2024 17:09:58 10/03/1910/03/2024 gluco se, finge rstic k, blood Blood Glucose: mg/dl 187 Not Available Main - [facility] [address] [place] [address], [id number] 10/03/2024 17:16:05 10/18/19 25 10/21/2024 URINE CULTU RE,CO MPREH ENSIV E urine culture,comp rehensive Final report abnormal Not Available [facility] ([facility]) [address] [facility], [place], [address], 10/21/2024 12:44:16 10/18/19 25 10/21/2024 URINE CULTU [...] compl ex, and Klebs iella aerog chin. Ramey irwin that initi ally test susce ptibl e may becom e resis tant withi n a few days after initi ation of thera py. Testi ng subse quent isola riwin may be warra nted if clini annette indic ated. (CLSI M100- Ed33) Great er than 100,0 00 colon y formi ng units per mL Not Available [facility] ([facility]) [address] [facility], [place], [address], 10/21/2024 12:44:16 10/18/19 25 10/21/2024 URINE CULTU [...] thopr im/Mandel lfa S Not Available [facility] ([facility]) [address] [facility], [place], [address], 10/21/2024 12:44:16 11/11/19 25 11/11/2024 rapid SARS CoV 2 Ag, QL IA, respi rator y speci men rapid SARS CoV 2 Ag, QL IA, respiratory specimen negati ve Not Available Main - [facility] [address] [place] [address], [id number] 11/11/2024 11:05:36 11/11/19 25 11/11/2024 rapid flu (A+B) Flu negati ve Not Available Main - [facility] ed [address] [place] [address], [phone] 11/11/2024 11:05:35 10/03/19 25 10/03/2024 elect hernan diogr am No observ ation record ed. gbaci Main - [facility] [address] [place] [address], [id number] 10/03/2024 18:07:20 11/11/19 25 11/12/2024 abraham kim am No observ ation record ed. acalthorpe Main - [facility] [address] [place] [address], [phone] 11/12/2024 08:13:36 Result Notes None recorded. Procedures Surgical History None recorded. Imaging Results Imaging Date Name Status LastModified by Organization Details LastModified Time 10/03/2024 electrocardiogram completed [email or web address] Main - [facility] [address] [place] [address], [id number] 10/03/2024 18:07:20 11/12/2024 electrocardiogram completed [email or web address] Main - [facility] [address] [place] [address], [id number] 11/12/2024 08:13:36 Procedure Notes None recorded. Medical Equipment None Reported. Allergies Allergen ID Allergen Name Allergen Category Reaction Reaction Severity Criticality Documentation Date Start Date Code Code System Note Provider Name and Address Organization Details Recorded Time 98954 lisinopri l medicatio n Not available Not available Not available 10/03/2024 34264 RxNorm Not Available [facility] - production 14:54:18 [...] 5 99.3 [degF] 97 % 97 % 379105 g 73 /min 16 /min 146 mm[Hg] 81 mm[Hg] Not Available [employer] 5 16:44:11 Date Recorded Heart rate Body weight Body height Body temperature Oxygen saturation Oxygen saturation in Arterial blood by Pulse oximetry Inhaled oxygen flow rate Respiratory rate Systolic blood pressure Diastolic blood pressure Provider Name and Address Organization Details Last Updated DateTime 5 73 /min 037897 g 160.02 cm 99 [degF] 98 % 98 % 2 L/min 18 /min 155 mm[Hg] 81 mm[Hg] Not Available [employer] 5 20:52:30 Date Recorded Heart rate Respiratory rate Oxygen saturation Oxygen saturation in Arterial blood by Pulse oximetry Inhaled oxygen flow rate Body weight Body height Body temperature Systolic blood pressure Diastolic blood pressure Provider Name and Address Organization Details Last Updated DateTime 5 60 /min 18 /min 100 % 100 % 2 L/min 853834 g 160.02 cm 98.7 [degF] 194 mm[Hg] 91 mm[Hg] Not Available [employer] 5 15:59:16 Date Recorded Body temperature Oxygen saturation Oxygen saturation in Arterial blood by Pulse oximetry Inhaled oxygen flow rate Body weight Body height Respiratory rate Heart rate Systolic blood pressure Diastolic blood pressure Provider Name and Address Organization Details Last Updated DateTime 5 98.4 [degF] 95 % 95 % 2 L/min 474857. 04 g 160.02 cm 16 /min 80 /min 116 mm[Hg] 74 mm[Hg] Not Available [employer] 5 11:01:38 Social History None recorded. Functional Status None recorded. Mental Status None recorded. Family History Nothing Reported. Medical History No medical history recorded. Gynecological HistoryNo gynecological history recorded. Obstetrics History GPAL:G 0 P 0 0 0 0 Past Encounters Encounter ID Performer Location Encounter Start Date Encounter Closed Date Diagnosis/Indication Diagnosis SNOMED-CT Code Diagnosis ICD10 Code Diagnosis Note [id number] Bautista Cueva MD Main - [facility] [address] [place] [phone] 10/23/2023 17:01:07 10/23/2023 22:32:23 Loose stool 505314548 R19.5 [id number] Allyn Massey MD Main - [facility] [address] [place] [phone] 01/11/2024 10:20:30 01/11/2024 16:25:20 Muscle weakness 32267663 M62.81 [id number] David Retana MD Main - [facility] [address] [place] [phone] 01/24/2024 13:12:58 01/24/2024 22:56:49 Bilateral lower limb edema 325203443 R60.0 Acute on chronic. Patient with daily [...] which to seek higher level of care. [id number] JOSE LUIS GERONIMO MD Main - [facility] [address] [place] [phone] 10/03/2024 16:28:44 10/03/2024 22:24:33 Contusion of orbital tissue of right eye 9213727127 0748745 S05.11XA Evaluation in the field was performed by my transformation architect colleague, as noted above, I provided real-time direction and supervisio n for this visit. Lao interprete r was used to communicat e [...] room air. Low-grade temperatur e, but the transformation architect reports that the room is very warm.Exam: Small bruising and swelling under the right eye and temporal area, with no periorbita l ecchymosis ( raccoon eyes ). No tenderness to palpation over the affected area or the bridge of the nose. Normal eye movement with no reported pain. The transformation architect reports rhonchi on lung examinatio n. No [...] exac erbation of chronic obstructive pulmonary disease 010259153 J44.1 Patient denies shortness of breath, cough, or upper respirator y infection symptoms. The transformation architect reported rhonchi on lung examinatio n. On [...] the first dose administer ed by the transformation architect. -Due to the lack of wheezing, her stable oxygen saturation on chronic oxygen, and her history of diabetes requiring insulin, the decision was made not to start Prednisone to avoid hyperglyce daniela.-Red flags were discussed with the patient. [id number] DA MUÑOZ MD [facility] - [address] [phone] 10/16/2024 20:52:29 10/21/2024 15:57:41 Headache 14264835 R51.9 Pain in left arm 6345556 00 M79.602 [id number] Mar Jiménez MD [facility] - [address] [phone] 10/18/2024 15:45:59 10/21/2024 16:36:29 Altered mental status 196593768 R41.82 Evaluation in the field was performed by my transformation architect colleague, as noted above, I provided real-time direction and supervisio n for this visit. 79 yo F PMHx HTN, CAD, T2DM, COPD on 2L home O2 p/w ongoing ANGELO, body aches for which she was seen yesterday by [facility]. Repeat visit requested by son as pt awoke this AM and felt confused, spontaneou sly resolved. Triage note reports dizziness however pt denies this. ANGELO resolved. Endorsed urinary frequency without dysuria, fevers, hematuria. On transformation architect eval VS wnl, exam wnl including A+O [...] endorsed ongoing L shoulder/a rm pain. On transformation architect exam not swelling or deformity, rotator cuff [...] shortness of breath, cough, chest pain, fever. [id number] Sayra Arevalo MD Main - [address] [phone] 10/21/2024 15:55:58 10/21/2024 17:31:04 Urinary symptoms [id number] R39.9 [id number] Luz Love MD [facility] - [address] [phone] 11/11/2024 11:01:33 11/12/2024 12:20:21 Nausea, vomiting and diarrhea 0437296 R11.2 R19.7 labs not concerning / given [...] Recorded Advance Directives Directive None Recorded Payers Insurance Date Sequence Insurance Name Policy Number Policy Elizondo Covered Member ID Elizondo Member ID Guarantor Name 11/12/2024 1 [facility] - DOS ON OR AFTER 2022 - DUAL ELIGIBLE - DETENTION OPTIONS AND ONE CARE (MEDICARE REPLACEMENT/ADV ANTAGE - HMO) Magalie Hamiltonumm [id number] Magalie Calos Emil Notes Date Note Type Note Provider Name [...] Urinary Tract Infections (UTI) PMH Reviewed at 10/03/2024 - :54 Allergies Reviewed at 10/03/2024 - 14:54 Comments: CRC RN did not require any additional information to process this visit. Residency Director Organization Information for Linda Leyva Legal Name: [employer] Address: [address] [place] [id number], Supervisor Fur Floor Worker: Too Welch MD CLIA No.: [id number] Residency Director POC Test Results from Wicken, Linda - ALS Rapid influenza antigen (17:29:49) Flu: - Attachments uploaded as part of this test result can be found under Documents section. EKG (17:59:36) EKG test performed. Attachments uploaded as part of this test result can be found under Documents section. ................... ................... ................... ................... ................... ................... ................... ........ Residency Director Note From Linda Leyva: Disp for the 79 year old female cc head/eye injury. Upon arrival patient found sitting in recliner in living room. Patient is Lao speaking only' manager physical used during visit. Patient is IQBAL x 4 GCS x 15, patient does not know the month or year and was unsure of her street address. Patient reports she is unable to read or write. Patient appeared to answer questions appropriately for manager physical. Patient denies chest pain, denies shortness of breath, denies abdominal pain, denies n/v/d, denies head pain, denies changes to vision, complains of bilateral leg weakness. Patient's son called for appointment due to patient falling on 09/17/24 and hitting her right side of face. Patient refused to go to the ER after injury. Son reported increased swelling at right restoration and around right lower eye. Patient states [...] blood work and I.V. access. Consulted with [facility] Dr. Geronimo. Dr. Geronimo ordered DuoNeb updraft [...] the patient of red flags/risk factors with manager physical. Patient understood. Dr. Geronimo she will send request to her PCP for physical therapy referral. Dr. Geronimo advised patient she can take her albuterol inhaler tonight every 4-6 hours as needed and to continue antibiotics tomorrow as prescribed. All times approx. ................... ................... ................... ................... ................... ................... ................... ........ [facility] Consulted: Jose Luis Geronimo ................... ................... ................... ................... ................... ................... ................... ........ Disposition: Fulfilled JOSE LUIS GERONIMO MD [address] [facility],[address], [place], [address], MAKAYLA - [employer] 10/03/2024 21:37:27 10/16/2024 text/html HPI: Call returned [...] for our walk in today. Agrees to [employer] medellin. Confirmed Demographics and allergies. ................... ................... [...] ................... ................... ................... ................... ................... ................... ........ Residency Director Note From Joselito Rogers: [facility] visit for female pt. Pt is wolof speaking only and manager physical was used. Pt presents complaining of headache [...] afebrile. Lung sounds clear bilaterally. Consulted with [facility] Dr Muñoz and reviewed dosage for tylenol. Pt then stated had taken some at 3 pm and would take more if she thought she needed it . Reviewed red flags for ED. Pt education provided. ................... ................... ................... ................... ................... ................... ................... ........ [facility] Consulted: Da Muñoz ................... ................... ................... ................... ................... ................... ................... ........ Disposition: Fulfilled DA MUÑOZ MD [address] [place] [address],[address], [place], [phone], [employer] 10/20/2024 22:41:05 10/18/2024 text/html CRC Nurse Triage [...] Allergies Reviewed at 10/18/2024 - 14:00 Comments: Transit Operations Supervisor verified the member's name//address and phone number. [...] s/s and seek emergency treatment if needed. Residency Director Organization Information for Efrain Oakley [employer] Legal Name: [employer]? Address: [address] [place] [id number], Supervisor Fur Floor Worker: Too ORELLANA No.: [id number] Residency Director POC Test Results from Efrain Oakley Urine Dipstick (16:02:19) Urine leukocytes: 70+ PORSCHE Urine nitrites: - NIT Urine urobilinogen: 0.2-3.5 URO Urine protein: 15+-0.15 PRO Urine pH: 7.0 pH Urine blood: - BLO Urine specific gravity: 1.010 SG Urine ketones: 5+-0.5 KET Urine bilirubin: - RICO Urine glucose: - GLU ................... ................... ................... ................... ................... ................... ................... ........ Residency Director Note From Efrain Oakley: [facility] makes pt contact. She is seated in a chair in her living room and she turns and greets [facility]. She is generally well appearing, wearing a NC, and making good eye contact. No stridor or sonorous respirations are heard, no facial droop or one-sided weakness are observed, and she is not bleeding anywhere. Pt is Lao-speaking only, so manager physical services via cell phone are attempted. Pt has difficulty hearing and understanding the manager physical, so she calls her son on FaceTime [...] She consents to evaluation and treatment today. [facility] obtains vital signs and pt is assessed. Lung sounds are clear and nothing remarkable is noted upon physical exam. Urine sample is obtained via clean catch for culture and dip stick analysis. [facility] contacts [facility] and discusses the above. [facility] orders urine culture and a bmp. [facility] is unable to gain IV access for bmp. [facility] gives instructions for family to take pt to the ED if her confusion persists and decision about medication for possible UTI will be made after culture returns. Pt and family thank [facility] for coming. [facility] is clear. Report completed by WINSTON Oakley [id number]. [facility] Lab Orders: urinalysis, dipstick: Performed BMP, serum or plasma: Not Performed Comment: Unable to obtain adequate sample amount. ................... ................... ................... ................... ................... ................... ................... ........ [facility] Consulted: Mar Jiménez ................... ................... ................... ................... ................... ................... ................... ........ Disposition: Fulfilled Mar Jiménez MD [address] [facility],[address], [place], [address], [employer] 10/18/2024 21:29:19 11/11/2024 text/html CRC Nurse Triage [...] s/s and seek emergency treatment if needed. Residency Director Organization Information for Guanakito Velahelio Legal Name: [facility] [employer]: [address] [place], [place] [address], Medical Director: Geo [facility] No.: [id number] Residency Director POC Test Results from Guanakito Vela [facility] (10:57:11)pH: 7.38 pH unitspCO2: 61.2 [...] ................... ................... ................... ................... ................... ................... ........ Residency Director Note From Guanakito Vela: This 79-year-old female [...] and is agreeable to this plan. [facility] Lab Orders: BMP, serum or plasma: Performed rapid flu (A+B): Performed rapid SARS CoV 2 Ag, QL IA, respiratory specimen: Performed [facility] Medication Orders: ondansetron HCl (PF) 4 mg/2 mL injection solution: Administered lactated Ringers intravenous solution: Administered ................... ................... ................... ................... ................... ................... ................... ........ [facility] Consulted: Luz Love ................... ................... ................... ................... ................... ................... ................... ........ Disposition: Fulfilled SEGMD: As above: Patient denies any known sick contacts, fever, chills, diaphoresis/dizzine ss or syncope. Luz Love MD [address] [place] [address],[address], [place], [address], MAKAYLA - [employer] [facility] 11/12/2024 13:27:51 OBGyn Episode No OBEpisode recorded.
--- OUTSIDE RECORDS SUMMARY | 2025-01-26 12:24 | XMS_ITS | Encounter Summary ---
Author Organization [employer] Address [address] [facility] [address] [place] [address] Care Team Providers Care Fire Control Technician B Name Role Phone Luke Gayle PharmD Unavailable Unavail able Bárbara Rader MD Primary Care Provide r Reason for Visit * Reason Comments Med Refill Encounter Details Date Type Department Care Team (Late st Contact Info) Description 12/15/2024 Refill [facility] [address] [place] [address] Carmine Patel MD [address] [place] [address] Social History Tobacco Use Types Packs/Day Years [...] documented as of this encounter Care Teams Fire Control Technician B Relationship Specialty Start Date End Date Bárbara Rader MD [address] [place] [id number] PCP - General Internal Medicine 07/16/24 Luke Gayle, PharmD Pharmacist Internal Medicine 09/04/22 [facility] 11/17/24 documented as of this encounter
--- OUTSIDE RECORDS SUMMARY | 2025-01-26 12:24 | XMS_ITS | Encounter Summary ---
Author Organization [employer] Address [address] [facility] [address] [place] [address] Care Team Providers Care Plant Worker Name Role Phone Luke Gayle PharmD Unavailable Unavail able Bárbara Rader MD Primary Care Provide r Reason for Visit * Reason Comments Med Refill Encounter Details Date Type Department Care Team (Late st Contact Info) Description 11/04/2024 Refill [facility] [address] [place] [address] Carmine Patel MD [address] [place] [address] Epigastric pain Social History Tobacco Use Types [...] documented as of this encounter Care Teams Plant Worker Relationship Specialty Start Date End Date Bárbara Rader MD [address] [place] [phone] PCP - General Internal Medicine 07/16/24 Luke Gayle, PharmD Pharmacist Internal Medicine 09/04/22 [facility] 07/10/24 11/19/24 [facility] 11/17/24 documented as of this encounter
--- OUTSIDE RECORDS SUMMARY | 2025-01-26 12:24 | XMS_ITS | Encounter Summary ---
Author Organization [employer] Address [address] [facility] 7t [place] [address] Care Team Providers Care Smoke Jumper Name Role Phone Carmine Patel MD Primary Care Provider [phone] Luke Gayle PharmD Unavailable Unavail able Bárbara Rader MD Primary Care Provide r Encounter Details Date Type Department Care Team (Late st Contact Info) Description 06/21/2023 Orders Only [facility] CHC MED & PEDS [address] [place], [place] [phone] Carmine Patel MD [address] [place], [place] [phone] Right hip pain (Primary Dx) Social History [...] documented as of this encounter Care Teams Smoke Jumper Relationship Specialty Start Date End Date Carmine Patel MD [address] [place] [address] PCP - General Internal Medicine 11/16/15 07/15/24 Bárbara Rader MD [address] [place] [address] PCP - General Internal Medicine 07/16/24 Luke Gayle, PharmD [address] [place] [address] Pharmacist Internal Medicine 09/04/22 [facility] 07/10/24 11/19/24 [facility] 11/17/24 documented as of this encounter
--- OUTSIDE RECORDS SUMMARY | 2025-01-26 12:24 | XMS_ITS | Encounter Summary ---
Author Organization [employer] Address [address] [facility] 7t [place] [address] Care Team Providers Care Hospice/Home Health Aide Name Role Phone Carmine Patel MD Primary Care Provider [phone] Luke Gayle PharmD Unavailable Unavail able Bárbara Rader MD Primary Care Provide r Encounter Details Date Type Department Care Team (Latest Contact Info) Description 06/26/2019 Abstract [facility] CONVERSIONS Dental, Provider, DDS Social History [...] on filedocumented in this encounter Care Teams Hospice/Home Health Aide Relationship Specialty Start Date End Date Carmine Patel MD [address] [place] [address] PCP - General Internal Medicine 11/16/15 07/15/24 Bárbara Rader MD [address] [place] [address] PCP - General Internal Medicine 07/16/24 Luke Gayle PharmD [address] [place] [address] [place] [address] Pharmacist Internal Medicine 09/04/22 [facility] 07/10/24 11/19/24 [facility] 11/17/24 documented as of this encounter
--- OUTSIDE RECORDS SUMMARY | 2025-01-26 12:24 | XMS_ITS | Encounter Summary ---
Author Organization [employer] Address [address] [place] [address] 7t [place] [address] Care Team Providers Care Director Of Therapy Services Name Role Phone Carmine Patel MD Primary Care Provider [phone] Luke Gayle PharmD Unavailable Unavail able Bárbara Rader MD Primary Care Provide r Reason for Referral * Consultation (Routine) - Closed Specialty Diagnoses / Procedures Referred By Alden andres Referred To Contact Physical Therapy Diagnoses Acute right ankle pain Carmine Patel MD [address] [place] [address] Phone: tel: fax: [facility] [address] [place] [address] Phone: tel: fax: Referral ID Status Reason Start Date Expiration Date V isits Requested Visits Authorized [id number] Closed Specialty Services Required 03/28/2024 03/28/2025 1 1 Encounter Details Date Type Department Care Team (Late st Contact Info) Description 03/24/2024 Orders Only [facility] CHC MED & PEDS [address] [place], [place] [phone] Carmine Patel MD [address] [place] [address] Acute right ankle pain (Primary Dx) Social [...] EDT Narrative 03/28/2024 12:12 PM EDT ? [facility] ?[address] ?[place] [address] ?XRay Report ? Signed ? Patient: Calos EmilMagalie Armenta ?MR#: [id number] ?? [id number] ? : 1945 ?Acct:[id number] ? Age/Sex: 78 / F ?ADM Date: 03/28/24 ? Loc: HO.ED ? Attending Dr: ? Ordering Physician: Elzbieta Franz ?? Date of Service: 03/28/24 ?? Procedure(s): XR knee RT 4V ?? Accession Number(s): [id number] ? cc: Carmine Patel MD; Elzbieta Franz [...] 1208 ? DD/ 1151 ? TD/TT: ? Web Content Producer: ? Procedure Note Luis Manuelmaria eDara hwang - 03/28/2024 [place] [address] XRay Report Signed Patient: Magalie Solis MMR#: [id number] : 6Acct:[id number] Age/Sex: 78 / FADM Date: 03/28/24 Loc: HO.ED Attending Dr: Ordering Physician: Elzbieta Franz Date of Service: 03/28/24 Procedure(s): XR knee RT 4V Accession Number(s): [id number] cc: Carmine Patel MD; Elzbieta Franz EXAMINATION: [...] in OV> 03/28/24 1208 DD/ 1151 TD/TT: Web Content Producer: [facility] External Provider IMG XR PROCEDURES Final Result documented in this encounter Visit Diagnoses Diagnosis Acute right ankle pain- Primary documented in this encounter Additional Health Concerns Assessment Noted Time PHQ-9 Depression Total Score: 0 10/09/19 23 11:12 AM EST documented as of this encounter Care Teams Director Of Therapy Services Relationship Specialty Start Date End Date Carmine Patel MD [address] [place] [address] PCP - General Internal Medicine 11/16/15 07/15/24 Bárbara Rader MD [address] [place] [address] PCP - General Internal Medicine 07/16/24 Luke Gayle PharmD [address] [place] [address] Pharmacist Internal Medicine 09/04/22 [facility] 07/10/24 11/19/24 [facility] 11/17/24 documented as of this encounter
--- OUTSIDE RECORDS SUMMARY | 2025-01-26 12:24 | XMS_ITS | Encounter Summary ---
Author Organization [employer] Address [address] [facility] 7t [place] [address] Care Team Providers Care Forestry Foreman Name Role Phone Carmine Patel MD Primary Care Provider [phone] Luke Gayle PharmD Unavailable Unavail able Bárbara Rader MD Primary Care Provide r Encounter Details Date Type Department Care Team (Late st Contact Info) Description 06/11/2024 Orders Only [facility] CHC MED & PEDS [address] [place], [place] [phone] Carmine Patel MD [address] [place], [place] [phone] Pruritus (Primary Dx) Social History Tobacco Use [...] as of this encounter Care Teams Forestry Foreman Relationship Specialty Start Date End Date Carmine Patel MD [address] [place] [address] PCP - General Internal Medicine 11/16/15 07/15/24 Bárbara Rader MD [address] [place] [address] PCP - General Internal Medicine 07/16/24 Luke Gayle, PharmD [address] [place] [address] Pharmacist Internal Medicine 09/04/22 [facility] 07/10/24 11/19/24 [facility] 11/17/24 documented as of this encounter
--- OUTSIDE RECORDS SUMMARY | 2025-01-26 12:24 | XMS_ITS | Encounter Summary ---
Author Organization [employer] Address [address] [facility] [address] 7t [place] [address] Care Team Providers Care Game Producer Name Role Phone Luke Gayle PharmD Unavailable Unavail able Bárbara Rader MD Primary Care Provide r Reason for Visit * Reason Comments Med Refill Encounter Details Date Type Department Care Team ([facility] st Contact Info) Description 12/15/2024 Refill [facility] MEDICINE [address] [place], [place] [phone] Bárbara Rader MD [address] [place], [place] [phone] Other hyperlipidemia Social History Tobacco Use Types [...] documented as of this encounter Care Teams Game Producer Relationship Specialty Start Date End Date Bárbara Rader MD [address] [place] [address] PCP - General Internal Medicine 07/16/24 Luke Gayle, PharmD Pharmacist Internal Medicine 09/04/22 [facility] 11/17/24 documented as of this encounter
--- OUTSIDE RECORDS SUMMARY | 2025-01-26 12:24 | XMS_ITS | Encounter Summary ---
Author Organization [employer] Address [address] [facility] 7t [place] [address] Care Team Providers Care Farm Mechanic Name Role Phone Carmine Patel MD Primary Care Provider [phone] Luke Gayle PharmD Unavailable Unavail able Bárbara Rader MD Primary Care Provide r Encounter Details Date Type Department Care Team (Late st Contact Info) Description 02/14/2024 Orders Only [facility] CHC MED & PEDS [address] [place], [place] [phone] Carmine Patel MD [address] [place], [place] [phone] Type 2 diabetes mellitus with other specified complication, without long-term current use of insulin ([facility]) (Primary Dx) Social [...] EDT Narrative 03/31/2024 9:51 AM EDT ? [facility] ?[address] ?[place] [address] ?XRay Report ? Signed ? Patient: Calos Civico,Patricia ?MR#: [id number] ?? [id number] ? : 1945 ?Acct:[id number] ? Age/Sex: 78 / F ?ADM Date: 06/27/24 ? Loc: HO.XRAY ? Attending Dr: Ofelia Ly EMAIL DESIGNER ? Ordering Physician: Saleem Young PA-C ?? Date of Service: 03/13/24 ?? Procedure(s): XR ankle RT min 3V ?? Accession Number(s): [id number] ? cc: Carmine Patel MD; Saleme Young PA-C ? EXAMINATION: ?? XR ANKLE, [...] 03/31/[address] ? DD/ 0946 ? TD/TT: ? Survey Statistician: ? Procedure Note Dara Sanchez - 03/31/[address] [address] XRay Report Signed Patient: Magalie Solis MMR#: [id number] : 6Acct:[id number] Age/Sex: 78 / FADM Date: 03/13/24 Loc: HO.XRAY Attending Dr: Ofelia Ly NP Ordering Physician: Saleem Young PA-C Date of Service: 03/13/24 Procedure(s): XR ankle RT min 3V Accession Number(s): [id number] cc: Carmine Patel MD; Saleem Young PA-C [...] callus formation. This study was presented to id March 31, 2024 for interpretation. PSA staff will provide results to referring provider at this time. Dictated By: Tierra Worthy MD Signed By: <Electronically signed by Tierra Worthy MD in OV> 03/31/2449 DD/ TD/TT: Survey Statistician: [facility] External Provider IMG XR PROCEDURES Final Result * BI Mammogram Additional Views Right (03/12/2024 2:15 PM EDT) Anatomical Region Laterality Modality Breast Right Mammography 03/12/2024 2:15 PM EDT Narrative 03/12/2024 3:08 PM EDT ? [facility] ? [address] ?[place], [place] [address] ? Mammography Report ? Signed ? Patient: Calos,Patricia ?MR#: [id number] ?? [id number] ? : 1945 ?Acct:[id number] ? Age/Sex: 78 / F ?ADM Date: 03/12/24 ? Loc: HO.MAMMO ? Attending Dr: Carmine Patel MD ? Ordering Physician: Carmine Patel MD ?Results: 2 ?? Benign Findings ? Date of Service: 03/12/24 ?Follow Up: 1 Year From Orig ?? inal Mammogram ? Procedure(s): MM added views RT ?? Accession Number(s): [id number] ? cc: Carmine Patel MD ? EXAMINATION: [...] 1504 ? DD/ 1415 ? TD/TT: ? Survey Statistician: ? Procedure Note Laura, Image - 03/12/2024 [facility] [address] [place] [address] Mammography Report Signed Patient: Magalie Live MMR#: [id number] : 6Acct:[id number] Age/Sex: 78 / FADM Date: 03/12/24 Loc: JAVI Attending Dr: Carmine Patel MD Ordering Physician: Carmine Patel MDResults: 2 Benign Findings Date of Service: 03/12/24Follow Up: 1 Year From Orig inal Mammogram Procedure(s): MM added views RT Accession Number(s): [id number] cc: Carmine Patel MD EXAMINATION: MM DIAGNOSTIC [...] in OV> 03/12/24 1504 DD/ 1415 TD/TT: Survey Statistician: us Carmine Patel MD IMG BI PROCEDURES Final Res ult documented in this encounter Visit Diagnoses Diagnosis Type 2 diabetes mellitus with other specified complication, without long-term current use of insulin ([facility])- Primary documented in this encounter Additional Health Concerns Assessment Noted Time PHQ-9 Depression Total Score: 0 10/09/19 23 11:12 AM EST documented as of this encounter Care Teams Farm Mechanic Relationship Specialty Start Date End Date Carmine Patel MD [address] [place] [address] PCP - General Internal Medicine 11/16/15 07/15/24 Bárbara Rader MD [address] [place] [address] PCP - General Internal Medicine 07/16/24 Luke Gayle, JarettD [address] [place] [address] Pharmacist Internal Medicine 09/04/22 [facility] 07/10/24 11/19/24 [facility] 11/17/24 documented as of this encounter
== END 2025-01-26 12:36 | disposition home or self-care (01) ==
PROVIDERS: PCP Internal Medicine; Visit Provider Urology
DX: N39.0 Urinary tract infection, site not specified (principal); R32 Unspecified urinary incontinence; R35.0 Frequency of micturition
CPT/HCPCS: 99213; G2211

== ENCOUNTER → 2025-01-26 11:37 | Outpatient (BNVA) | payer OTHER, SELFPAY | PROVIDERS: PCP Internal Medicine; Visit Provider Urology | DX: N39.0 Urinary tract infection, site not specified (principal); R32 Unspecified urinary incontinence; R35.0 Frequency of micturition | CPT/HCPCS: 99212 ==

== ENCOUNTER 2025-02-08 10:24 | Observation (INO) | payer OTHER, SELFPAY ==
[2025-02-08] VITALS (8 sets, daily range): BP systolic 108–159; BP diastolic 54–80; PULSE 71–114; RESP 13–20; TEMP 36.3–36.9; O2SAT 88–100; BMI 45.5; BMI 43.3
--- NOTE | ~2025-02-08 | XR_ITS ---
CLINICAL HISTORY: cough Single view of the chest. COMPARISON: XR chest dated 11/12/24 at 12:06 EST FINDINGS: Low lung volumes. Cardiomegaly, stable. Crowding of the bronchovascular markings, likely secondary to low lung volumes. No definite pleural effusion. No pneumothorax. No acute fracture. Mild spondylosis. IMPRESSION: 1. Low lung volumes with associated crowding of the bronchovascular markings. 2. Cardiomegaly. This document has been electronically signed by: Ted Mayers MD on 02/08/2025 14:36:10
--- NOTE | 2025-02-08 11:27 | ED_ITS ---
HPI - General Adult General Chief complaint: General Medical Stated complaint: LEG PAIN Time Seen by Provider: 02/08/25 11:27 Source: patient, family, EMS, RN notes reviewed and health center manager Mode of arrival: EMS Limitations: language barrier History of Present Illness ED Provider: Tammie Peres PA-C HPI narrative: This is a 79-year-old Portuguese speaking female, with a past medical history of chronic hypoxic and hypercapnic respiratory failure /obesity hypoventilation syndrome on home 2L O2, pulmonary hypertension, HFpEF, insulin-dependent type 2 diabetes, HTN, HLD, GERD, and NICO on CPAP, who presents to the ER, accompanied by her cousin whom she lives with, with complaints of body aches and generalized weakness since yesterday. Patient reports that she has also has had subjective fevers and chills. She denies any dizziness, lightheadedness, severe headache, chest pain, shortness of breath, abdominal pain, nausea, vomiting or diarrhea. Denies any cough or congestion. No sore throat. No sick contacts. She admits that she has been noncompliant with her CPAP machine, she does state that she uses her home O2 as she states that whenever she uses this she cough since she is unable to sleep well. She states that she is nonambulatory secondary to deconditioning as well as right ankle fracture. She initially denied any urinary symptoms however upon further questioning after urine sample, she does report urinary frequency. MD complaint: Body aches Onset (ago): day(s) Radiation: non-radiation Severity: moderate Quality: aching Pain Consistency: constant Relieving factors: none Exacerbating factors: none Associated symptoms: denies other symptoms Treatments prior to arrival: none Related Data Home Medications ?Medication ?Instructions ?Recorded ?Confirmed lancets 33 gauge (TRUEplus Lancets) #100 ea 09/20/21 01/26/25 sitagliptin phos 50 mg-metformin 1 tab PO DAILY 02/20/22 02/08/25 ER 1,000 mg tablet,extend rel 24h mp (Janumet XR) furosemide 40 mg tablet 40 mg PO DAILY 05/11/23 02/08/25 albuterol sulfate 90 mcg/actuation 2 puff inhalation Q4H PRN Wheezing 11/02/23 02/08/25 aerosol inhaler ergocalciferol (vitamin D2) 1,250 1,250 mcg PO MO 11/02/23 02/08/25 mcg (50,000 unit) capsule famotidine 20 mg tablet 20 mg PO BID 11/02/23 02/08/25 pravastatin 40 mg tablet 40 mg PO BEDTIME 11/02/23 02/08/25 albuterol sulfate 2.5 mg/3 mL 2.5 mg inhalation Q6H PRN 05/04/24 02/08/25 (0.083 %) solution for nebulization Shortness Of Breath Or Wheezing pantoprazole 20 mg tablet,delayed 20 mg PO DAILY@0630 05/04/24 02/08/25 release insulin lispro 100 unit/mL 5 unit subcut BIDWM 08/06/24 02/08/25 subcutaneous pen (Humalog KwikPen (U-100) Insulin) ondansetron 4 mg disintegrating 4 - 8 mg PO Q8H PRN Nausea And 01/26/25 02/08/25 tablet Vomiting carvedilol 12.5 mg tablet 12.5 mg PO BIDWM 02/08/25 02/08/25 ketotifen fumarate 0.025 % (0.035 1 drp ophthalmic (eye) Q12H PRN 02/08/25 02/08/25 %) eye drops Allergy Symptoms Previous Rx's ?Medication ?Instructions ?Recorded insulin glargine 100 unit/mL 20 unit (0.2 mL) subcut BEDTIME 11/15/23 subcutaneous solution (Lantus #10 mL U-100 Insulin) losartan 50 mg tablet 50 mg PO BID #120 tabs 11/24/24 cetirizine 10 mg capsule (Zyrtec) 10 mg PO DAILY PRN allergy 01/20/25 symptoms #14 caps hydrocortisone 1 % topical cream 1 appl topical BID PRN rash #28.35 01/20/25 grams cefuroxime axetil 500 mg tablet 500 mg PO BID #10 tabs 02/10/25 Allergies Allergy/AdvReac Type Severity Reaction Status Date / Time No Known Allergies Allergy Verified 02/08/25 10:40 [No Known Allergies*] Review of Systems 2 Review of Systems: Constitutional: No Weight loss + subjective fevers and chills, No Night Sweats, No Fatigue, No Malaise ENT/Mouth: No Hearing loss, No Ear Pain, No Nasal Congestion, No Sinus Pain, No Hoarseness, No sore throat, No Rhinorrhea, No Swallowing Difficulty Eyes: No Eye Pain, No Swelling, No Redness, No Foreign Body, No Discharge, No Vision Changes Cardiovascular: No Chest Pain, No SOB, No Dyspnea on Exertion, No Orthopnea, No Edema, No Palpitations Respiratory: No Cough, No Sputum, No Wheezing, No Smoke Exposure, No Dyspnea Gastrointestinal: No Nausea, No Vomiting, No Diarrhea, No Constipation, No Abdominal pain, No Hematochezia, No Melena Genitourinary: No irregular bleeding, No Dysuria, +Urinary Frequency, No Hematuria, No Urinary Incontinence/retention, No Urgency, No Flank Pain, No Urinary Flow Changes, No Hesitancy Musculoskeletal: No joint pain, +Myalgias, No Joint Swelling Skin: No Skin Lesions, No rash Neuro: No Weakness, No Numbness, No Paresthesias, No Loss of Consciousness, No Dizziness, No Headache Psych: No Anxiety/Panic, No Depression, No SI/HI/AH/VH, No Social Issues, Heme/Lymph: No Bruising, No Bleeding,No Lymphadenopathy Endocrine: No Polyuria, No Polydipsia, No Temperature Intolerance Yes all other systems are reviewed and are negative Constitutional: Constitutional: Reports as per [facility] Past Medical History Medical History Unspecified urinary incontinence NICO (obstructive sleep apnea) CHF (congestive heart failure) 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 indication of end stage renal disease in patient 6 to 64 years of age Lymphadenopathy Abdominal pain Bursitis of right hip Osteoarthritis of right hip Restrictive ventilatory defect Dyspnea on exertion Varicose veins of right lower extremity with inflammation Pneumonitis Pulmonary hypertension Hypertensive cardiovascular disease Acute hypoxic on chronic hypercapnic respiratory failure Acute on chronic respiratory failure with hypoxemia Obesity hypoventilation syndrome GERD (gastroesophageal reflux disease) Hypertension Diabetes mellitus COPD (chronic obstructive pulmonary disease) Surgical History S/P laparoscopic cholecystectomy (07/14/21) Family History Family History Mother Diabetes Social History Social History Household Members: Unknown / Unable to assess Household Members Other:: cousin Housing: Unknown / Unable to assess Do you presently have visiting nurse or other home services: No Unable to assess alcohol history related to: Unknown Alcohol intake: never Patient Tobacco Use Status: Former Tobacco user Tobacco use type: Cigarette Years Smoked: 20 Smoked in Last 30 Days: No Use of substances other than those prescribed or required for medical reasons: No Currently Displaying Signs/Symptoms of Drug Intoxication Withdrawal: No Advance Directives: No Advance Directives Information Provided: Yes Advance Directives Date on File: 02/22/22 Do you have a plan to hurt others: No Plan Nutrition Risks: No Nutritional Risk service: No Current occupational status: unemployed and disabled Physical Exam ED Vital Signs: Vital Signs - 24 hr 02/08/25 10:35 02/08/25 12:20 02/08/25 12:40 Temperature 98.4 F 97.3 F Pulse Rate 72 78 78 Respiratory Rate 18 20 20 Blood Pressure 117/59 L 119/69 119/69 Pulse Oximetry 97 93 100 Oxygen Delivery Method Nasal Cannula Nasal Cannula Nasal Cannula Oxygen Flow Rate 2 2 02/08/25 13:22 02/08/25 14:19 Temperature 97.5 F Pulse Rate 71 Respiratory Rate 13 Blood Pressure 157/71 H Pulse Oximetry 88 L 95 Oxygen Delivery Method Room Air Nasal Cannula Oxygen Flow Rate 2 BMI result Body Mass Index 45.5 Const Orientation/consciousness: patient oriented x3 Neuro Other: 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 General: patient oriented x3 Cranial nerves: Yes CN's II-XII intact bilaterally Cognition (Neuro): normal cognition Gait exam (Neuro): Normal gait present Motor exam (neuro): 5/5 motor strength present throughout and Pronator motor function not present NIH Stroke Scale Internal: Initial- Upon Arrival Level of Consciousness: Alert Level of Consciousness Questions: Answers both questions correctly Level of Consciousness Commands: Performs both tasks correctly Best Gaze: Normal Visual: No visual loss Facial Palsy: Normal Motor Arm (Right): No drift Motor Arm (Left): No drift Motor Leg (Right): No drift Motor Leg (Left): No drift Limb Ataxia: Absent Sensory: Normal Best Language: No aphasia Dysarthia: Normal Extinction and Inattention: No abnormality Score: 0 Medications Administered Generic Name Dose Route Start Last Admin Trade Name Freq PRN Reason Stop Dose Admin Acetaminophen 650 mg 02/08/25 15:47 02/09/25 02:15 Acetaminophen 325 Mg Tablet PO 650 mg Q6H PRN Administration Pain, Mild 1-3,fever,headache Carvedilol 12.5 mg 02/09/25 08:00 02/10/25 08:16 Carvedilol 12.5 Mg Tablet PO 12.5 mg BIDWM TIMOTHY Administration Protocol Ceftriaxone Sodium 1 gm 02/09/25 15:00 02/09/25 14:11 Ceftriaxone Sodium 1 Gm Vial IVPUSH 1 gm Q24H TIMOTHY Administration Enoxaparin Sodium 40 mg 02/09/25 09:00 02/10/25 08:15 Enoxaparin Sodium 40 Mg/0.4 Ml Syringe SUBCUT 40 mg Q24H TIMOTHY Administration Famotidine 20 mg 02/08/25 21:00 02/10/25 08:16 Famotidine 20 Mg Tablet PO 20 mg BID TIMOTHY Administration Furosemide 40 mg 02/09/25 09:00 02/10/25 08:16 Furosemide 40 Mg Tablet PO 40 mg DAILY TIMOTHY Administration Protocol Hydralazine HCl 25 mg 02/08/25 21:00 02/10/25 08:17 Hydralazine Hcl 25 Mg Tablet PO 25 mg BID [facility] Administration Protocol Insulin Glargine 20 unit 02/08/25 21:00 02/09/25 21:34 Insulin Glargine,Hum.Rec.Anlog 100 Unit/Ml 10 Ml Vial SUBCUT 20 unit BEDTIME [facility] Administration Insulin Human Lispro 0 unit 02/08/25 16:30 02/10/25 08:09 Insulin Lispro 100 Unit/Ml 3 Ml Vial SUBCUT Not Given QIDACHS [facility] Protocol Losartan Potassium 50 mg 02/08/25 21:00 02/10/25 08:16 Losartan Potassium 50 Mg Tablet PO 50 mg BID [facility] Administration Protocol Omeprazole 20 mg 02/09/25 06:30 02/10/25 06:13 Omeprazole 20 Mg Capsule.Dr PO 20 mg DAILY@0630 [facility] Administration Pravastatin Sodium 40 mg 02/08/25 21:00 02/09/25 21:22 Pravastatin Sodium 40 Mg Tablet PO 40 mg BEDTIME TIMOTHY Administration Sodium Chloride 3 ml 02/08/25 16:00 02/10/25 08:17 0.9 % Sodium Chloride Flush 3 Ml Syringe IVFLUSH 3 ml QSHIFT TIMOTHY Administration Discontinued Medications Generic Name Dose Route Start Last Admin Trade Name Freq PRN Reason Stop Dose Admin Ceftriaxone Sodium 1 gm 02/08/25 15:02 02/08/25 15:18 Ceftriaxone Sodium 1 Gm Vial IVPUSH 02/08/25 15:03 1 gm ONCE ONE Administration Acetaminophen 1,000 mg in 100 mls @ 400 mls/hr 02/08/25 13:18 02/08/25 14:06 Ofirmev IV 02/08/25 13:32 Infused ONCE ONE Infusion Sodium Chloride 500 mls @ 500 mls/hr 02/08/25 15:03 02/08/25 16:30 Ns IV 02/08/25 16:02 Infused .Q1H ONE Infusion Morphine Sulfate 4 mg 02/08/25 15:02 02/08/25 15:16 Morphine Sulfate 4 Mg/Ml Cartridge IVPUSH 02/08/25 15:03 Not Given ONCE ONE Protocol Medical Decision Making Medical Decision Making [facility] Narrative: This is a 79-year-old female who presents emergency department with concerns for body aches since yesterday. On arrival, patient is well-appearing, appears to be under no acute distress, vital signs within normal limits. She is on 2 L nasal cannula which he is typically on at baseline. She to be noncompliant with her sleep apnea machine for ?awhile?. Patient has extensive medical complications in regards to her noncompliance you with her CPAP machine. Differential diagnoses include viral illness, bronchitis, rhabdomylosis. Will obtain labs, EKG, chest x-ray, and viral swabs. Will also order VBG given noncompliance he was CPAP machine. I discussed at length the importance of using CPAP machine as she can become very ill as she has been in the past for this. Cousin was present during this conversation. Course: 1524 - patient's overall workup today reveals no leukocytosis, slight microcytic anemia with an H&H of 9.6/32.3 similar to previous, chemistry revealing no significant electrolyte derangement. VBG with no significant acute findings. CPK 17, BNP slightly elevated at 116, she does not appear to be fluid overloaded. Urine does appear to be infectious therefore starting on IV antibiotics. Long discussion with patient in regards to her overall workup today, she states that she has had generalized global weakness, and does not feel comfortable to be discharged home with p.o. antibiotics. Given multiple comorbidities, and positive urinary tract infection, will discussed with hospitalist for admission for UTI and generalized weakness. She is alert and oriented x4, vital signs within normal limits, she is afebrile. Differential Diagnosis Differential Diagnoses: The differential diagnosis associated with the presentation includes See above Admission/Observation Consideration of admission/observation: Escalation of care including admission/observation considered Lab Data MDM Lab Attestation statement: I reviewed the patient's lab results. See course comment 02/09/25 05:42 02/09/25 05:42 Labs: Lab Results 02/08/25 02/08/25 02/08/25 Range/Units 13:11 13:14 13:16 WBC 6.4 (4.8-10.8) X10*3/uL RBC 3.18 L (4.20-5.50) X10*6/uL Hgb 9.6 L (12.0-16.0) g/dl Hct 32.3 L (37.0-47.0) % MCV 101.6 H (80.0-98.0) fL MCH 30.2 (27.0-33.0) pg MCHC 29.7 L (31.0-35.0) g/dl RDW 12.1 (11.0-16.0) % Plt Count 136 L (160-400) X10*3/uL MPV 9.6 (9.4-12.3) fL Immature Gran % (Auto) 0.3 (0.0-0.4) % Neut % (Auto) 60.1 (45-73) % Lymph % (Auto) 28.2 (20-40) % [place] % (Auto) 9.5 (2-11) % Eos % (Auto) 1.4 (0-4) % Baso % (Auto) 0.5 (0-2) % Lymph # (Auto) 1.8 (1.2-4.9) X10*3/uL [place] # (Auto) 0.6 (0.1-1.2) X10*3/uL Eos # (Auto) 0.1 (0.0-0.4) X10*3/uL Baso # (Auto) 0.0 (0.0-0.2) X10*3/uL Abs Immat Gran (auto) 0.02 (0.00-0.03) X10*3/uL Absolute Neuts (auto) 3.8 (2.0-8.3) x10*3/uL Absolute Nucleated RBC 0.000 (0.0-0.012) X10*3/uL Nucleated RBC % (auto) 0.0 (0.0-0.2) /100WBC VBG pH 7.39 (7.32-7.43) VBG pCO2 57 mmHg VBG pO2 122 mmHg VBG HCO3 35 H (22-26) mmol/L VBG O2 Saturation 100.0 % VBG Base Excess 8.5 mmol/L Sodium 141 (135-145) mmol/L Potassium 4.5 (3.3-5.1) mmol/L Chloride 100 (96-108) mmol/L Carbon Dioxide 34 H (22-29) mmol/L Anion Gap 12 (12-20) BUN 14 (9-16) mg/dL Creatinine 0.71 (0.5-1.4) mg/dL Estim Creat Clear Calc 80.4 Estimated GFR > 60 Random Glucose 101 (60-115) mg/dL Calcium 8.9 D (8.4-10.2) mg/dL Magnesium 1.6 (1.6-2.6) mg/dL Total Bilirubin 0.2 (0.0-1.0) mg/dL Direct Bilirubin < 0.2 (0.0-0.5) mg/dL AST 15 (5-31) U/L ALT 8 (0-31) U/L Alkaline Phosphatase 45 (39-117) U/L Total Creatine Kinase 17 L (26-140) U/L Troponin I High Sens 5.8 (<3.5-17.0) ng/L B-Natriuretic Peptide 116 H (<100) pg/mL Total Protein 6.7 (6.5-8.0) g/dL Albumin 3.8 (3.5-5.0) g/dL Urine Color Urine Appearance Urine pH (5.0-9.0) Ur Specific [place] (1.005-1.025) Urine Protein (Neg-Trace) mg/dL Urine Glucose (UA) (Negative) mg/dL Urine Ketones (Negative) mg/dL Urine Blood (Negative) Urine Nitrite (Negative) Ur Leukocyte Esterase (Negative) Urine RBC (0-2) /HPF Urine WBC (0-5) /HPF Ur Squamous Epith Cells (0-2) /HPF Urine Bacteria (None Seen) Hyaline Casts (0-2) /LPF Influenza Type A (PCR) NEGATIVE (Negative) Influenza Type B (PCR) NEGATIVE (Negative) RSV RNA Qual (PCR) NEGATIVE (Negative) SARS-CoV-2 RNA (RT-PCR) NEGATIVE (Negative) 02/08/25 Range/Units 14:28 WBC (4.8-10.8) X10*3/uL RBC (4.20-5.50) X10*6/uL Hgb (12.0-16.0) g/dl Hct (37.0-47.0) % MCV (80.0-98.0) fL MCH (27.0-33.0) pg MCHC (31.0-35.0) g/dl RDW (11.0-16.0) % Plt Count (160-400) X10*3/uL MPV (9.4-12.3) fL Immature Gran % (Auto) (0.0-0.4) % Neut % (Auto) (45-73) % Lymph % (Auto) (20-40) % [place] % (Auto) (2-11) % Eos % (Auto) (0-4) % Baso % (Auto) (0-2) % Lymph # (Auto) (1.2-4.9) X10*3/uL [place] # (Auto) (0.1-1.2) X10*3/uL Eos # (Auto) (0.0-0.4) X10*3/uL Baso # (Auto) (0.0-0.2) X10*3/uL Abs Immat Gran (auto) (0.00-0.03) X10*3/uL Absolute Neuts (auto) (2.0-8.3) x10*3/uL Absolute Nucleated RBC (0.0-0.012) X10*3/uL Nucleated RBC % (auto) (0.0-0.2) /100WBC VBG pH (7.32-7.43) VBG pCO2 mmHg VBG pO2 mmHg VBG HCO3 (22-26) mmol/L VBG O2 Saturation % VBG Base Excess mmol/L Sodium (135-145) mmol/L Potassium (3.3-5.1) mmol/L Chloride (96-108) mmol/L Carbon Dioxide (22-29) mmol/L Anion Gap (12-20) BUN (9-16) mg/dL Creatinine (0.5-1.4) mg/dL Estim Creat Clear Calc Estimated GFR Random Glucose (60-115) mg/dL Calcium (8.4-10.2) mg/dL Magnesium (1.6-2.6) mg/dL Total Bilirubin (0.0-1.0) mg/dL Direct Bilirubin (0.0-0.5) mg/dL AST (5-31) U/L ALT (0-31) U/L Alkaline Phosphatase (39-117) U/L Total Creatine Kinase (26-140) U/L Troponin I High Sens (<3.5-17.0) ng/L B-Natriuretic Peptide (<100) pg/mL Total Protein (6.5-8.0) g/dL Albumin (3.5-5.0) g/dL Urine Color Yellow Urine Appearance Cloudy Urine pH 5.5 (5.0-9.0) Ur Specific [place] 1.020 (1.005-1.025) Urine Protein 30 (1+) H (Neg-Trace) mg/dL Urine Glucose (UA) Negative (Negative) mg/dL Urine Ketones Negative (Negative) mg/dL Urine Blood Negative (Negative) Urine Nitrite Positive H (Negative) Ur Leukocyte Esterase Moderate (2+) H (Negative) Urine RBC 0-2 (0-2) /HPF Urine WBC >50 H (0-5) /HPF Ur Squamous Epith Cells 3-5 (0-2) /HPF Urine Bacteria 4+ (None Seen) Hyaline Casts 0-2 (0-2) /LPF Influenza Type A (PCR) (Negative) Influenza Type B (PCR) (Negative) RSV RNA Qual (PCR) (Negative) SARS-CoV-2 RNA (RT-PCR) (Negative) Independent Interpretation I performed an independent interpretation of an: EKG Interpretation: EKG sinus rhythm with PACs at a ventricular rate of 75 beats per minute, no STEMI. Radiology Impression Discussion of test interpretation with radiology: I have reviewed the radiologist's reading. Radiologist Impression: FINDINGS: Low lung volumes. Cardiomegaly, stable. Crowding of the bronchovascular markings, likely secondary to low lung volumes. No definite pleural effusion. No pneumothorax. No acute fracture. Mild spondylosis. IMPRESSION: 1. Low lung volumes with associated crowding of the bronchovascular markings. 2. Cardiomegaly. This document has been electronically signed by: Ted Mayers MD on 02/08/2025 14:36:10 Dictated By: Ted Mayers MD Signed By: <Electronically dena Chronic Conditions Patient?s care impacted by: Diabetes Critical Care Time Critical Care Time Critical Care Time: Yes Total Critical Care Time: 31 Attestation: I have personally provided critical care time exclusive of time spent on separately billable procedures. Time includes review of lab data, radiology results, discussion with consultants, and monitoring for potential decompensation. Intervention performed as documented. Discharge Plan Discharge Clinical Impression: Acute UTI, Weakness Patient Disposition: Admitted As Inpatient Interventions: Admission Worksheet (ED) Last Done: 02/08/25 22:49 Discharge Date/Time: 02/08/25 23:47
--- NOTE | 2025-02-08 12:11 | ECG_ITS ---
Test Reason : sob Blood Pressure : */* mmHG Vent. Rate : 75 BPM Atrial Rate : 75 BPM P-R Int : 178 ms QRS Dur : 84 ms QT Int : 364 ms P-R-T Axes : 59 20 34 degrees QTcB Int : 406 ms Sinus rhythm with Premature atrial complexes with Aberrant conduction Otherwise normal ECG When compared with ECG of 12-Nov-2024 12:01, Aberrant conduction is now Present Referred By: Tammie Peres Electronically Signed By: Jake Veliz
[2025-02-08 13:15] LABS: MANUAL DIFF FLAG NO
[2025-02-08 13:17] LABS: Basophils Percent Auto 0.5 % (0-2); Eosinophils Absolute Auto 0.1 X10*3/uL (0.0-0.4); Eosinophils Percent Auto 1.4 % (0-4); Hematocrit 32.3 % (37.0-47.0); Hemoglobin 9.6 g/dl (12.0-16.0); Imm Gran Abs Auto 0.02 X10*3/uL (0.00-0.03); Imm Gran Pct Auto 0.3 % (0.0-0.4); Lymphocytes Absolute Auto 1.8 X10*3/uL (1.2-4.9); Lymphocytes Percent Auto 28.2 % (20-40); Mean Corpuscular HGB Conc 29.7 g/dl (31.0-35.0); Mean Corpuscular Hemoglobin 30.2 pg (27.0-33.0); Mean Corpuscular Volume 101.6 fL (80.0-98.0); Mean Platelet Volume 9.6 fL (9.4-12.3); Monocytes Absolute Auto 0.6 X10*3/uL (0.1-1.2); Monocytes Percent Auto 9.5 % (2-11); Neutrophils Absolute Auto 3.8 x10*3/uL (2.0-8.3); Neutrophils Percent Auto 60.1 % (45-73); Platelet Count 136 X10*3/uL (160-400); Red Blood Count 3.18 X10*6/uL (4.20-5.50); Red Cell Distribution Width 12.1 % (11.0-16.0); White Blood Count 6.4 X10*3/uL (4.8-10.8)
[2025-02-08 13:21] LABS: Venous Blood Gas Refer to POC result
[2025-02-08 13:22] LABS: VBG Base Excess 8.5 mmol/L; VBG HCO3 35 mmol/L (22-26); VBG pCO2 57 mmHg; VBG pH 7.39 (7.32-7.43); VBG pO2 122 mmHg
--- NOTE | 2025-02-08 13:24 | PC.NURSE ---
Pt found to have O2 NC off, desat to 87-88% on RA. Pt educated on need to keep oxygen on d/t sats dropping and increased SOB without O2. Pt placed back on O2 2L- O2 sats increased to mid to high 90s. ZUHAIR Cho made aware of situation.
[2025-02-08 13:33] LABS: Alanine Aminotransferase 8 U/L (0-31); Albumin Level 3.8 g/dL (3.5-5.0); Alkaline Phosphatase 45 U/L (39-117); Anion Gap 12 (12-20); Aspartate Amino Transferase 15 U/L (5-31); Bilirubin Direct < 0.2 mg/dL (0.0-0.5); Bilirubin Total 0.2 mg/dL (0.0-1.0); Blood Urea Nitrogen 14 mg/dL (9-16); Calcium 8.9 mg/dL (8.4-10.2); Carbon Dioxide 34 mmol/L (22-29); Chloride 100 mmol/L (96-108); Creatinine Clr Calc Pharmacy 80.4; Estimated Glomerular Filt Rate > 60; Glucose Random 101 mg/dL (60-115); Magnesium 1.6 mg/dL (1.6-2.6); Potassium 4.5 mmol/L (3.3-5.1); Sodium 141 mmol/L (135-145); Total Protein 6.7 g/dL (6.5-8.0)
[2025-02-08] MEDS: Acetaminophen 1,000 MG/100 ML PIGGYBACK 400 MG IV (13:33)
[2025-02-08 13:39] LABS: B Type Natriuretic Peptide 116 pg/mL (<100); Troponin-I High Sensitivity 5.8 ng/L (<3.5-17.0)
[2025-02-08 14:00] LABS: Influenza A PCR NEGATIVE (Negative); Influenza B PCR NEGATIVE (Negative); Resp Syncy Virus RNA Qual PCR NEGATIVE (Negative); SARS COV2 PCR INHOUSE NEGATIVE (Negative)
[2025-02-08 14:38] LABS: Appearance Urine Cloudy; Color Urine Yellow; Glucose Urine UA Negative (Negative); Leukocyte Esterase Urine Moderate (2+) (Negative); Nitrite Urine Positive (Negative); PH 5.5 (5.0-9.0); UMIC TRIGGER UACC YES; Urine Blood Negative (Negative); Urine Ketones Negative (Negative); Urine Protein 30 (1+) mg/dL (Neg-Trace)
[2025-02-08 14:43] LABS: Bacteria Urine 4+ (None Seen); Hyaline Casts Urine 0-2 /LPF (0-2); RBC Urine 0-2 /HPF (0-2); UACC Culture Trigger YES; WBC Urine >50 /HPF (0-5)
[2025-02-08] MEDS: cefTRIAXone sodium 1 GM VIAL IVPUSH (15:18)
[2025-02-08] MEDS: 0.9 % Sodium Chloride 500 ML IV (15:18)
--- NOTE | 2025-02-08 15:32 | ECG_ITS ---
Test Reason : sob Blood Pressure : */* mmHG Vent. Rate : 73 BPM Atrial Rate : 73 BPM P-R Int : 180 ms QRS Dur : 84 ms QT Int : 366 ms P-R-T Axes : 25 12 40 degrees QTcB Int : 403 ms Normal sinus rhythm with sinus arrhythmia Normal ECG When compared with ECG of 08-Feb-2025 12:36, Aberrant conduction is no longer Present Referred By: Tammie Peres Electronically Signed By: Jake Veliz
--- NOTE | 2025-02-08 16:02 | P.HPHOSP_ITS ---
History of Present Illness Date of Service: 02/08/25 Chief Complaint: weakness 79F PMH morbid obesity, DM, chronic hypoxic and hypercapneic respiratory failure on 2 L home O2, chronic diastolic chf, htn, nico/ohs presented with weakness. Patient states symptoms began 1 day prior to presentation. Has been feeling weak all over with some myalgias, dysuria with urinary frequency. Denies chest pain. Does report mild increase in shortness. Denies fever or chills. In ED found to have positive ua. Review of Systems 2 Review of Systems: Yes all other systems are reviewed and are negative [facility] Medical History Unspecified urinary incontinence NICO (obstructive sleep apnea) CHF (congestive heart failure) 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 indication of end stage renal disease in patient 6 to 64 years of age Lymphadenopathy Abdominal pain Bursitis of right hip Osteoarthritis of right hip Restrictive ventilatory defect Dyspnea on exertion Varicose veins of right lower extremity with inflammation Pneumonitis Pulmonary hypertension Hypertensive cardiovascular disease Acute hypoxic on chronic hypercapnic respiratory failure Acute on chronic respiratory failure with hypoxemia Obesity hypoventilation syndrome GERD (gastroesophageal reflux disease) Hypertension Diabetes mellitus COPD (chronic obstructive pulmonary disease) Family History Mother Diabetes Surgical History S/P laparoscopic cholecystectomy (07/14/21) Social History Household Members: Unknown / Unable to assess Household Members Other:: cousin Housing: Unknown / Unable to assess Do you presently have visiting nurse or other home services: No Unable to assess alcohol history related to: Unknown Alcohol intake: never Patient Tobacco Use Status: Former Tobacco user Tobacco use type: Cigarette Years Smoked: 20 Smoked in Last 30 Days: No Use of substances other than those prescribed or required for medical reasons: No Advance Directives: No Advance Directives Information Provided: Yes Advance Directives Date on File: 02/22/22 Do you have a plan to hurt others: No Plan service: No Current occupational status: unemployed and disabled Meds Allergies Allergy/AdvReac Type Severity Reaction Status Date / Time No Known Allergies Allergy Verified 02/08/25 10:40 [No Known Allergies*] Active Medications: Current Medications Acetaminophen (Acetaminophen 325 Mg Tablet) 650 mg PO Q6H PRN PRN Reason: Pain, Mild 1-3,fever,headache Calcium Carbonate (Calcium Carbonate 750 Mg Tab.Chew) 750 mg PO Q4H PRN PRN Reason: Heartburn Magnesium Hydroxide (Milk Of Magnesia 30 Ml Oral.Susp) 30 ml PO DAILY PRN PRN Reason: Constipation Melatonin (Melatonin 3 Mg Tablet) 6 mg PO BEDTIME PRN PRN Reason: Insomnia Sodium Chloride (0.9 % Sodium Chloride Flush 3 Ml Syringe) 3 ml IVFLUSH QSHIFT [facility] Home Medications ?Medication ?Instructions ?Recorded ?Confirmed ?Last Taken ?Type lancets 33 gauge (TRUEplus Lancets) #100 ea 09/20/21 01/26/25 02/19/22 History sitagliptin phos 50 mg-metformin 1 tab PO DAILY 02/20/22 01/26/25 11/11/24 History ER 1,000 mg tablet,extend rel 24h mp (Janumet XR) furosemide 40 mg tablet 40 mg PO DAILY 05/11/23 01/26/25 11/11/24 History albuterol sulfate 90 mcg/actuation 2 puff inhalation Q6H PRN Wheezing 11/02/23 01/26/25 11/11/24 History aerosol inhaler ergocalciferol (vitamin D2) 1,250 1,250 mcg PO MO 11/02/23 01/26/25 11/10/24 History mcg (50,000 unit) capsule famotidine 20 mg tablet 20 mg PO BID 11/02/23 01/26/25 11/11/24 History pravastatin 40 mg tablet 40 mg PO BEDTIME 11/02/23 01/26/25 11/11/24 History albuterol sulfate 2.5 mg/3 mL 2.5 mg inhalation Q6H PRN 05/04/24 01/26/25 Unknown History (0.083 %) solution for nebulization Shortness Of Breath Or Wheezing pantoprazole 20 mg tablet,delayed 20 mg PO DAILY@0630 05/04/24 01/26/25 11/11/24 History release insulin lispro 100 unit/mL 5 unit subcut DAILY 08/06/24 01/26/25 11/11/24 History subcutaneous pen (Humalog KwikPen (U-100) Insulin) cefuroxime axetil 250 mg tablet 250 mg PO BID 11/24/24 01/26/25 Unknown History fluconazole 150 mg tablet 150 mg PO DAILY 11/24/24 01/26/25 Unknown History hydralazine 25 mg tablet 25 mg PO TID 11/24/24 01/26/25 Unknown History spironolactone 25 mg tablet 25 mg PO DAILY 11/24/24 01/26/25 Unknown History ondansetron 4 mg disintegrating mg PO 01/26/25 01/26/25 Unknown History tablet Physical Exam 2 Vital Signs and Narrative: Vital Signs: Last Vital Signs Temp 97.5 F 02/08/25 14:19 Pulse 71 02/08/25 14:19 Resp 13 02/08/25 14:19 BP 157/71 H 02/08/25 14:19 Pulse Ox 95 02/08/25 14:19 O2 Del Method Nasal Cannula 02/08/25 14:19 O2 Flow Rate 2 02/08/25 14:19 Oxygen Flow Rate 2 02/08/25 10:35 BMI result Body Mass Index 45.5 General: AO X 3, no acute distress Resp: CTA bilateral, no accessory muscles used CVS: S1,S2,RRR GI: soft, non tender, non distended Neuro: motor grossly intact, alert Psych: appropriate affect, appropriate insight Results Labs 02/08/25 13:11 02/08/25 13:11 Labs: Laboratory Results - last 24 hr 02/08/25 02/08/25 02/08/25 13:11 13:14 13:16 MCV 101.6 H MCH 30.2 MCHC 29.7 L RDW 12.1 Plt Count 136 L MPV 9.6 Immature Gran % (Auto) 0.3 Neut % (Auto) 60.1 Lymph % (Auto) 28.2 [place] % (Auto) 9.5 Eos % (Auto) 1.4 Baso % (Auto) 0.5 Lymph # (Auto) 1.8 [place] # (Auto) 0.6 Eos # (Auto) 0.1 Baso # (Auto) 0.0 Abs Immat Gran (auto) 0.02 Absolute Neuts (auto) 3.8 Absolute Nucleated RBC 0.000 Nucleated RBC % (auto) 0.0 VBG pH 7.39 VBG pCO2 57 VBG pO2 122 VBG HCO3 35 H VBG O2 Saturation 100.0 VBG Base Excess 8.5 Anion Gap 12 Estim Creat Clear Calc 80.4 Estimated GFR > 60 Random Glucose 101 Calcium 8.9 D Magnesium 1.6 Total Bilirubin 0.2 Direct Bilirubin < 0.2 AST 15 ALT 8 Alkaline Phosphatase 45 Total Creatine Kinase 17 L B-Natriuretic Peptide 116 H Total Protein 6.7 Albumin 3.8 Urine Color Urine Appearance Urine pH Ur Specific [place] Urine Protein Urine Glucose (UA) Urine Ketones Urine Blood Urine Nitrite Ur Leukocyte Esterase Urine RBC Urine WBC Ur Squamous Epith Cells Urine Bacteria Hyaline Casts Influenza Type A (PCR) NEGATIVE Influenza Type B (PCR) NEGATIVE RSV RNA Qual (PCR) NEGATIVE SARS-CoV-2 RNA (RT-PCR) NEGATIVE 02/08/25 14:28 MCV MCH MCHC RDW Plt Count MPV Immature Gran % (Auto) Neut % (Auto) Lymph % (Auto) [place] % (Auto) Eos % (Auto) Baso % (Auto) Lymph # (Auto) [place] # (Auto) Eos # (Auto) Baso # (Auto) Abs Immat Gran (auto) Absolute Neuts (auto) Absolute Nucleated RBC Nucleated RBC % (auto) VBG pH VBG pCO2 VBG pO2 VBG HCO3 VBG O2 Saturation VBG Base Excess Anion Gap Estim Creat Clear Calc Estimated GFR Random Glucose Calcium Magnesium Total Bilirubin Direct Bilirubin AST ALT Alkaline Phosphatase Total Creatine Kinase B-Natriuretic Peptide Total Protein Albumin Urine Color Yellow Urine Appearance Cloudy Urine pH 5.5 Ur Specific [place] 1.020 Urine Protein 30 (1+) H Urine Glucose (UA) Negative Urine Ketones Negative Urine Blood Negative Urine Nitrite Positive H Ur Leukocyte Esterase Moderate (2+) H Urine RBC 0-2 Urine WBC >50 H Ur Squamous Epith Cells 3-5 Urine Bacteria 4+ Hyaline Casts 0-2 Influenza Type A (PCR) Influenza Type B (PCR) RSV RNA Qual (PCR) SARS-CoV-2 RNA (RT-PCR) Assessment and Plan (1) Hypertension: Status: Acute Plan 79F PMH morbid obesity, DM, chronic hypoxic and hypercapneic respiratory failure on 2 L home O2, chronic diastolic chf, htn, nico/ohs presented with weakness Weakness due to urinary tract infection rocpehin, follow up cultures, pt DM insulin morbid obesity, ohs, ncio weight loss, bipap at night chronic hypoxic and hypercapneic resp failure stable chronic diastolic chf lasix htn c/w losatan, coreg dvt prophylaxis - lovenox full code Quality Stroke Does the patient have a stroke diagnosis?: No VTE Prior VTE?: No VTE Risk Level:: Medical - moderate - high VTE Device Contraindication: Treatment Not Indicated VTE Drug Contraindication: N/A - Med Ordered
[2025-02-08 16:58] LABS: Glucose, Whole Blood 80 mg/dL (60-115)
--- NOTE | 2025-02-08 18:19 | PHA.MEDREC ---
Addendum entered by Alana Hyde, [facility] 02/08/25 18:37: Reviewed by pharmacist, looked back at previous notes and hydralazine has been discontinued during a past hospitalization, and there is no claim history so this was removed from her list Original Note: Pharmacy Consult ? Medication Reconciliation Pharmacy has completed the medication reconciliation. Spoke with patients son Andres at bedside. He brought in a stack of her prescription labels. He reports she is no longer taking acetazolamide (ran out), gemtesa (could not tolerate), and spironolactone (from 2022). Him and the patient confirmed she still uses ketotifen eye drops as needed. She took Vitamin D2 last Sunday. He confirmed Lantus 20 units at bedtime and humalog is 5 units BIDWM. There was a label from 2022 for hydralazine, and there are no claims. Andres and patient say she still takes his bid. Patient reports she had no medications today.
[2025-02-08] MEDS: Acetaminophen 325 MG TABLET 650 MG PO (19:17)
[2025-02-08] MEDS: Losartan Potassium 50 MG TABLET PO (20:41)
[2025-02-08] MEDS: hydrALAZINE HCl 25 MG TABLET PO (20:41)
[2025-02-08] MEDS: Pravastatin Sodium 40 MG TABLET PO (20:41)
[2025-02-08] MEDS: Famotidine 20 MG TABLET PO (20:41)
[2025-02-08 20:52] LABS: Glucose, Whole Blood 121 mg/dL (60-115)
[2025-02-08] MEDS: Insulin Glargine,Hum.rec.anlog 100 UNIT/ML 10 ML VIAL 20 UNIT SUBCUT (20:52)
--- NOTE | 2025-02-08 22:14 | MHC.EDTECH ---
POC done by nurse
[2025-02-08] MEDS: 0.9 % Sodium Chloride Flush 3 ML SYRINGE IVFLUSH (23:57)
[2025-02-09] VITALS (10 sets, daily range): BP systolic 141–171; BP diastolic 64–84; PULSE 71–83; RESP 16–18; TEMP 36.3–36.9; O2SAT 96–100
[2025-02-09] MEDS: Acetaminophen 325 MG TABLET 650 MG PO (02:15)
[2025-02-09] MEDS: Omeprazole 20 MG CAPSULE.DR PO (05:55)
[2025-02-09 07:05] LABS: Anion Gap 12 (12-20); Blood Urea Nitrogen 9 mg/dL (9-16); Calcium 8.8 mg/dL (8.4-10.2); Carbon Dioxide 32 mmol/L (22-29); Chloride 102 mmol/L (96-108); Creatinine Clr Calc Pharmacy 120.6; Estimated Glomerular Filt Rate > 60; Glucose Random 89 mg/dL (60-115); Potassium 4.4 mmol/L (3.3-5.1); Sodium 142 mmol/L (135-145)
[2025-02-09 07:08] LABS: Hematocrit 36.3 % (37.0-47.0); Hemoglobin 10.7 g/dl (12.0-16.0); Mean Corpuscular HGB Conc 29.5 g/dl (31.0-35.0); Mean Corpuscular Volume 101.7 fL (80.0-98.0); PLT CLUMP 1; Red Blood Count 3.57 X10*6/uL (4.20-5.50)
[2025-02-09 07:09] LABS: Glucose, Whole Blood 88 mg/dL (60-115)
[2025-02-09 08:00] LABS: Mean Platelet Volume 10.8 fL (9.4-12.3); Platelet Count 142 X10*3/uL (160-400); White Blood Count 5.4 X10*3/uL (4.8-10.8)
[2025-02-09] MEDS: carvediloL 12.5 MG TABLET PO ×2 (08:31→16:19)
[2025-02-09] MEDS: Famotidine 20 MG TABLET PO ×2 (08:31→21:22)
[2025-02-09] MEDS: Losartan Potassium 50 MG TABLET PO ×2 (08:31→21:22)
[2025-02-09] MEDS: 0.9 % Sodium Chloride Flush 3 ML SYRINGE IVFLUSH ×3 (08:32→21:23)
[2025-02-09] MEDS: hydrALAZINE HCl 25 MG TABLET PO ×2 (08:32→21:22)
[2025-02-09] MEDS: Furosemide 40 MG TABLET PO (08:32)
[2025-02-09] MEDS: Enoxaparin Sodium 40 MG/0.4 ML SYRINGE SUBCUT (08:34)
[2025-02-09 11:19] LABS: Glucose, Whole Blood 152 mg/dL (60-115)
--- NOTE | 2025-02-09 11:23 | HO.PM.IMPN ---
Subjective Subjective Date of Service: 02/09/25 Interval History: weakness Physical Exam Vital Signs: Vital Signs: Last Vital Signs Temp 97.9 F 02/09/25 06:48 Pulse 74 02/09/25 06:48 Resp 16 02/09/25 06:48 BP 154/80 H 02/09/25 06:48 Pulse Ox 100 02/09/25 06:48 O2 Del Method Nasal Cannula 02/09/25 06:48 O2 Flow Rate 2 02/09/25 06:48 Oxygen Flow Rate 2 02/08/25 10:35 BMI result Body Mass Index 43.3 General: AO X 3, no acute distress Resp: CTA bilateral, no accessory muscles used CVS: S1,S2,RRR GI: soft, non tender, non distended Neuro: motor grossly intact, alert Psych: appropriate affect, appropriate insight Objective Data Active Medications Acetaminophen (Acetaminophen 325 Mg Tablet) 650 mg PO Q6H PRN PRN Reason: Pain, Mild 1-3,fever,headache Last Admin: 02/09/25 02:15 Dose: 650 mg Documented By: ALEXANDER Calcium Carbonate (Calcium Carbonate 750 Mg Tab.Chew) 750 mg PO Q4H PRN PRN Reason: Heartburn Carvedilol (Carvedilol 12.5 Mg Tablet) 12.5 mg PO BIDWM TIMOTHY; Protocol Last Admin: 02/09/25 08:31 Dose: 12.5 mg Documented By: ZAC Ceftriaxone Sodium (Ceftriaxone Sodium 1 Gm Vial) 1 gm IVPUSH Q24H TIMOTHY Dextrose (Dextrose 50 % 25 Gm/50 Ml Syringe) 25 gm IVPUSH Q15M PRN; Protocol PRN Reason: per Hypoglycemia Standing Ord. Enoxaparin Sodium (Enoxaparin Sodium 40 Mg/0.4 Ml Syringe) 40 mg SUBCUT Q24H [facility] Last Admin: 02/09/25 08:34 Dose: 40 mg Documented By: ZAC Famotidine (Famotidine 20 Mg Tablet) 20 mg PO BID [facility] Last Admin: 02/09/25 08:31 Dose: 20 mg Documented By: ZAC Furosemide (Furosemide 40 Mg Tablet) 40 mg PO DAILY [facility]; Protocol Last Admin: 02/09/25 08:32 Dose: 40 mg Documented By: ZAC Glucose (Glucose Gel 15 Gm Gel..Gram.) 15 gm PO Q15M PRN; Protocol PRN Reason: per Hypoglycemia Standing Ord. Hydralazine HCl (Hydralazine Hcl 25 Mg Tablet) 25 mg PO BID [facility]; Protocol Last Admin: 02/09/25 08:32 Dose: 25 mg Documented By: ZAC Insulin Glargine (Insulin Glargine,Hum.Rec.Anlog 100 Unit/Ml 10 Ml Vial) 20 unit SUBCUT BEDTIME [facility] Last Admin: 02/08/25 20:52 Dose: 20 unit Documented By: KSINNY Insulin Human Lispro (Insulin Lispro 100 Unit/Ml 3 Ml Vial) 0 unit SUBCUT QIDACHS [facility]; Protocol Last Admin: 02/09/25 07:10 Dose: Not Given Documented By: ZAC Non-Admin Reason: No Insulin Coverage Loratadine (Loratadine 10 Mg Tablet) 10 mg PO DAILY PRN PRN Reason: allergy symptoms Losartan Potassium (Losartan Potassium 50 Mg Tablet) 50 mg PO BID [facility]; Protocol Last Admin: 02/09/25 08:31 Dose: 50 mg Documented By: ZAC Magnesium Hydroxide (Milk Of Magnesia 30 Ml Oral.Susp) 30 ml PO DAILY PRN PRN Reason: Constipation Melatonin (Melatonin 3 Mg Tablet) 6 mg PO BEDTIME PRN PRN Reason: Insomnia Omeprazole (Omeprazole 20 Mg Capsule.Dr) 20 mg PO DAILY@0630 [facility] Last Admin: 02/09/25 05:55 Dose: 20 mg Documented By: ODRISM Pravastatin Sodium (Pravastatin Sodium 40 Mg Tablet) 40 mg PO BEDTIME [facility] Last Admin: 02/08/25 20:41 Dose: 40 mg Documented By: SKINNY Sodium Chloride (0.9 % Sodium Chloride Flush 3 Ml Syringe) 3 ml IVFLUSH QSHIFT [facility] Last Admin: 02/09/25 08:32 Dose: 3 ml Documented By: ZAC Labs 02/09/25 05:42 02/09/25 05:42 Labs: Laboratory Results - last 24 hr 02/08/25 02/08/25 02/08/25 13:11 13:14 13:16 MCV 101.6 H MCH 30.2 MCHC 29.7 L RDW 12.1 Plt Count 136 L MPV 9.6 Immature Gran % (Auto) 0.3 Neut % (Auto) 60.1 Lymph % (Auto) 28.2 [place] % (Auto) 9.5 Eos % (Auto) 1.4 Baso % (Auto) 0.5 Lymph # (Auto) 1.8 [place] # (Auto) 0.6 Eos # (Auto) 0.1 Baso # (Auto) 0.0 Abs Immat Gran (auto) 0.02 Absolute Neuts (auto) 3.8 Absolute Nucleated RBC 0.000 Nucleated RBC % (auto) 0.0 VBG pH 7.39 VBG pCO2 57 VBG pO2 122 VBG HCO3 35 H VBG O2 Saturation 100.0 VBG Base Excess 8.5 Anion Gap 12 Estim Creat Clear Calc 80.4 Estimated GFR > 60 POC Glucose Random Glucose 101 Calcium 8.9 D Magnesium 1.6 Total Bilirubin 0.2 Direct Bilirubin < 0.2 AST 15 ALT 8 Alkaline Phosphatase 45 Total Creatine Kinase 17 L B-Natriuretic Peptide 116 H Total Protein 6.7 Albumin 3.8 Urine Color Urine Appearance Urine pH Ur Specific [place] Urine Protein Urine Glucose (UA) Urine Ketones Urine Blood Urine Nitrite Ur Leukocyte Esterase Urine RBC Urine WBC Ur Squamous Epith Cells Urine Bacteria Hyaline Casts Influenza Type A (PCR) NEGATIVE Influenza Type B (PCR) NEGATIVE RSV RNA Qual (PCR) NEGATIVE SARS-CoV-2 RNA (RT-PCR) NEGATIVE 02/08/25 02/08/25 02/08/25 14:28 16:51 20:48 MCV MCH MCHC RDW Plt Count MPV Immature Gran % (Auto) Neut % (Auto) Lymph % (Auto) [place] % (Auto) Eos % (Auto) Baso % (Auto) Lymph # (Auto) [place] # (Auto) Eos # (Auto) Baso # (Auto) Abs Immat Gran (auto) Absolute Neuts (auto) Absolute Nucleated RBC Nucleated RBC % (auto) VBG pH VBG pCO2 VBG pO2 VBG HCO3 VBG O2 Saturation VBG Base Excess Anion Gap Estim Creat Clear Calc Estimated GFR POC Glucose 80 121 H Random Glucose Calcium Magnesium Total Bilirubin Direct Bilirubin AST ALT Alkaline Phosphatase Total Creatine Kinase B-Natriuretic Peptide Total Protein Albumin Urine Color Yellow Urine Appearance Cloudy Urine pH 5.5 Ur Specific [place] 1.020 Urine Protein 30 (1+) H Urine Glucose (UA) Negative Urine Ketones Negative Urine Blood Negative Urine Nitrite Positive H Ur Leukocyte Esterase Moderate (2+) H Urine RBC 0-2 Urine WBC >50 H Ur Squamous Epith Cells 3-5 Urine Bacteria 4+ Hyaline Casts 0-2 Influenza Type A (PCR) Influenza Type B (PCR) RSV RNA Qual (PCR) SARS-CoV-2 RNA (RT-PCR) 02/09/25 02/09/25 02/09/25 05:42 07:03 11:12 MCV 101.7 H MCH 30.0 MCHC 29.5 L RDW 12.0 Plt Count 142 L MPV 10.8 Immature Gran % (Auto) Neut % (Auto) Lymph % (Auto) [place] % (Auto) Eos % (Auto) Baso % (Auto) Lymph # (Auto) [place] # (Auto) Eos # (Auto) Baso # (Auto) Abs Immat Gran (auto) Absolute Neuts (auto) Absolute Nucleated RBC 0.000 Nucleated RBC % (auto) 0.0 VBG pH VBG pCO2 VBG pO2 VBG HCO3 VBG O2 Saturation VBG Base Excess Anion Gap 12 Estim Creat Clear Calc 120.6 Estimated GFR > 60 POC Glucose 88 152 H Random Glucose 89 Calcium 8.8 Magnesium Total Bilirubin Direct Bilirubin AST ALT Alkaline Phosphatase Total Creatine Kinase B-Natriuretic Peptide Total Protein Albumin Urine Color Urine Appearance Urine pH Ur Specific [place] Urine Protein Urine Glucose (UA) Urine Ketones Urine Blood Urine Nitrite Ur Leukocyte Esterase Urine RBC Urine WBC Ur Squamous Epith Cells Urine Bacteria Hyaline Casts Influenza Type A (PCR) Influenza Type B (PCR) RSV RNA Qual (PCR) SARS-CoV-2 RNA (RT-PCR) Microbiology Microbiology Results: Microbiology 02/08/25 Unknown Urine Culture - Preliminary Urine clean catch - Clean Catch Midstream Gram negative keegan 02/08/25 13:09 Blood Culture - Preliminary Blood - Venous Prelim: GPC Gram Stain only Assessment and Plan (1) Acute UTI: Status: Acute Plan 79F PMH morbid obesity, DM, chronic hypoxic and hypercapneic respiratory failure on 2 L home O2, chronic diastolic chf, htn, doreen/ohs presented with weakness Weakness due to urinary tract infection rocephin, follow up cultures, pt DM insulin morbid obesity, ohs, doreen weight loss, bipap at night chronic hypoxic and hypercapneic resp failure stable chronic diastolic chf lasix htn c/w losatan, coreg dvt prophylaxis - lovenox full code reason for continued hospitalization:cultures Quality Stroke Does the patient have a stroke diagnosis?: No VTE Prior VTE?: No VTE Risk Level:: Medical - moderate - high VTE Device Contraindication: Treatment Not Indicated VTE Drug Contraindication: N/A - Med Ordered
[2025-02-09] MEDS: Insulin Lispro 100 UNIT/ML 3 ML VIAL SUBCUT ×2 (11:28→16:20)
--- NOTE | 2025-02-09 12:47 | MHC.CM.PN ---
CM MET WITH PT WITH A REHABILITATION COUNSELOR PT REPORTS SHE LIVES WITH HER COUSIN AND HAS DAILY [employer] PT HAS OXYGEN AND A CPAP ([facility]) WELL A WALKER AND WHEEL CHAIR HCP ON FILE PCP: DUSTIN PATINO OBSERVATION NOTICE DELIVERED DCP: HOME, RESUME [employer] BLS TRANSPORT
[2025-02-09] MEDS: cefTRIAXone sodium 1 GM VIAL IVPUSH (14:11)
[2025-02-09 16:01] LABS: Glucose, Whole Blood 177 mg/dL (60-115)
--- NOTE | 2025-02-09 19:41 | PC.RT ---
Pt refused BiPAP
[2025-02-09 20:42] LABS: Glucose, Whole Blood 129 mg/dL (60-115)
[2025-02-09] MEDS: Pravastatin Sodium 40 MG TABLET PO (21:22)
[2025-02-09] MEDS: Insulin Glargine,Hum.rec.anlog 100 UNIT/ML 10 ML VIAL 20 UNIT SUBCUT (21:34)
[2025-02-10 04:00] VITALS: BP 165/72; PULSE 77; RESP 17; TEMP 36.2; O2SAT 98
[2025-02-10] MEDS: Omeprazole 20 MG CAPSULE.DR PO (06:13)
[2025-02-10 07:57] LABS: Glucose, Whole Blood 100 mg/dL (60-115)
[2025-02-10 08:00] VITALS: BP 150/80; PULSE 90; RESP 17; TEMP 36.2; O2SAT 91
[2025-02-10] MEDS: Enoxaparin Sodium 40 MG/0.4 ML SYRINGE SUBCUT (08:15)
[2025-02-10] MEDS: carvediloL 12.5 MG TABLET PO (08:16)
[2025-02-10] MEDS: Furosemide 40 MG TABLET PO (08:16)
[2025-02-10] MEDS: Famotidine 20 MG TABLET PO (08:16)
[2025-02-10] MEDS: Losartan Potassium 50 MG TABLET PO (08:16)
[2025-02-10] MEDS: 0.9 % Sodium Chloride Flush 3 ML SYRINGE IVFLUSH (08:17)
[2025-02-10] MEDS: hydrALAZINE HCl 25 MG TABLET PO (08:17)
--- NOTE | 2025-02-10 09:36 | P.DS_ITS ---
DS: Providers Provider Date of Service: 02/10/25 Date of admission: 02/08/25 15:47 Date of discharge: 02/10/25 Primary care physician: Carmine Patel MD DS: Diagnosis Discharge Diagnosis (1) Acute UTI: Status: Acute DS: Summary Hospital Course Hospital Course: from initial hpi: 79F PMH morbid obesity, DM, chronic hypoxic and hypercapneic respiratory failure on 2 L home O2, chronic diastolic chf, htn, nico/ohs presented with weakness. P atient states symptoms began 1 day prior to presentation. Has been feeling weak all over with some myalgias, dysuria with urinary frequency. Denies chest pain. Does report mild increase in shortness. Denies fever or chills. In ED found to have positive ua. hospital course: Patient was admitted for weakness due to urinary tract infection. Was treated with ceftriaxone culture grew Klebsiella pneumoniae that was sensitive to cephalosporins. Patient has dysuria and weakness significantly improved and she is feeling back to her baseline. We will be discharged home on 5 more days of Ceftin. For diabetes was continued on insulin sliding scale. For morbid obesity/OHS/NICO weight loss is recommended and was continued on BiPAP at night. For chronic hypoxic and hypercapnic respiratory failure patient remained stable. For chronic diastolic CHF continued on Lasix. For hypertension was continued on losartan and carvedilol. Time Attestation Discharge Coordination Time (in mins): 32 Quality: Safe Use of Opioids Does Pt have an Active Cancer Diagnosis on the Problem List?: No Quality: Stroke Does the patient have a stroke diagnosis?: No Physical Exam Vital Signs: Vital Signs: Last Vital Signs Temp 97.2 F 02/10/25 08:00 Pulse 90 02/10/25 08:00 Resp 17 02/10/25 08:00 BP 150/80 H 02/10/25 08:00 Pulse Ox 91 L 02/10/25 08:00 O2 Del Method Room Air 02/10/25 08:00 O2 Flow Rate 2 02/10/25 04:00 Oxygen Flow Rate 2 02/08/25 10:35 BMI result Body Mass Index 43.3 General: AO X 3, no acute distress Resp: CTA bilateral, no accessory muscles used CVS: S1,S2,RRR GI: soft, non tender, non distended Neuro: motor grossly intact, alert Psych: appropriate affect, appropriate insight DS: Data Data Completed and Pending Completed studies during hospitalization [Text1]: Procedures Assistance with Respiratory Ventilation, Less than 24 Consecutive Hours, Continuous Positive Airway Pressure (11/12/24) Insertion of Endotracheal Airway into Trachea, Via Natural or Artificial Opening Endoscopic (07/12/21) Inspection of Lower Intestinal Tract, Via Natural or Artificial Opening Endoscop ic (02/20/22) Resection of Gallbladder, Percutaneous Endoscopic Approach (07/12/21) Respiratory Ventilation, Less than 24 Consecutive Hours (07/12/21) Labs on day of discharge: Laboratory Results - last 24 hr 02/09/25 02/09/25 02/09/25 11:12 15:57 20:37 POC Glucose 152 H 177 H 129 H 02/10/25 07:50 POC Glucose 100 Preliminary micro results at discharge 02/08/25 13:10 Blood Culture - Preliminary Blood - Venous No growth after 24 hours. Discharge Plan Discharge Anticipated Discharge Date/Time: 02/10/25 09:34 Patient Disposition: Home, Self-Care Discharge Diagnosis: uti Referrals: Carmine Patel MD [Primary Care Provider] - 1 Week Discharge Medications: New cefuroxime axetil 500 mg tablet 500 mg PO BID Qty: 10 0RF Continued Janumet XR 50-1,000 mg tablet, ER multiphase 24 hr 1 tab PO DAILY insulin lispro [Humalog KwikPen Insulin] 100 unit/mL insulin pen 5 unit subcut BIDWM ketotifen fumarate 0.025 % (0.035 %) drops 1 drp ophthalmic (eye) Q12H PRN (Reason: Allergy Symptoms) carvedilol 12.5 mg tablet 12.5 mg PO BIDWM Protocol: Hold for SBP/HR < HOLD for SBP < : 90 HOLD for HR < : 60 pravastatin 40 mg tablet 40 mg PO BEDTIME ergocalciferol (vitamin D2) 1,250 mcg (50,000 unit) capsule 1,250 mcg PO MO albuterol sulfate 90 mcg/actuation HFA aerosol inhaler 2 puff inhalation Q4H PRN (Reason: Wheezing) famotidine 20 mg tablet 20 mg PO BID insulin glargine [Lantus U-100 Insulin] 100 unit/mL Solution 20 unit subcut BEDTIME Qty: 10 0RF pantoprazole 20 mg tablet,delayed release (DR/EC) 20 mg PO DAILY@0630 albuterol sulfate 2.5 mg /3 mL (0.083 %) solution for nebulization 2.5 mg inhalation Q6H PRN (Reason: Shortness Of Breath Or Wheezing) hydrocortisone 1 % cream 1 appl topical BID PRN (Reason: rash) Qty: 28.35 0RF Zyrtec 10 mg capsule 10 mg PO DAILY PRN (Reason: allergy symptoms) Qty: 14 0RF (DME) lancets [TRUEplus Lancets] 33 gauge misc See Rx Instructions topical .MEDSUPPLY Qty: 100 Rx Instructions: As directed furosemide 40 mg tablet 40 mg PO DAILY ondansetron 4 mg tablet,disintegrating 4 - 8 mg PO Q8H PRN (Reason: Nausea And Vomiting) losartan 50 mg tablet 50 mg PO BID Qty: 120 4RF Discharge Orders: Discharge Order (Routine); Ordered 02/10/25 Ordered By: Jasvir Baugh Diet: Advance to usual diet Activity on Discharge: As tolerated Stand Alone Forms: Patient Portal Discharge page Print Language: Japanese Care Plan Goals: recovery Health Concerns: uti Plan of Treatment: 5 days ceftin Assessment: see above
--- NOTE | 2025-02-10 09:46 | MHC.CM.PN ---
pt dcd home self care by amb transport
--- NOTE | 2025-02-10 10:53 | MHC.CM.PN ---
booking numbr thru [facility] is [phone]
[2025-02-10 11:30] LABS: Glucose, Whole Blood 125 mg/dL (60-115)
--- NOTE | 2025-02-10 11:35 | MHC.CM.PN ---
pt active with [facility]tran[facility] for sn
[2025-02-10 12:02] VITALS: RESP 20; TEMP 35.8; O2SAT 99
--- NOTE | 2025-02-10 12:27 | PC.NURSE ---
discharge instructions explained to patient by VELVET Feldman
== END 2025-02-10 12:23 | disposition home health service (06) ==
LOC: HO.ED 11:27 → HO.OBSV 16:40 → HO.EDOVER 19:49 → HO.S3 22:46
PROVIDERS: Physician Assistant Medical; Admitting Provider Internal Medicine; Emergency Provider Emergency Medicine; PCP Internal Medicine; Visit Provider Internal Medicine
DX: N39.0 Urinary tract infection, site not specified (principal); B96.1 Klebsiella pneumoniae [K. pneumoniae] as the cause of diseases classified elsewhere; B96.89 Other specified bacterial agents as the cause of diseases classified elsewhere; Z16.19 Resistance to other specified beta lactam antibiotics; R53.1 Weakness; R35.0 Frequency of micturition; E11.9 Type 2 diabetes mellitus without complications; I11.0 Hypertensive heart disease with heart failure; I50.32 Chronic diastolic (congestive) heart failure; J96.12 Chronic respiratory failure with hypercapnia; E66.01 Morbid (severe) obesity due to excess calories; Z68.41 Body mass index [BMI] 40.0-44.9, adult; Z79.4 Long term (current) use of insulin; Z79.899 Other long term (current) drug therapy; Z99.81 Dependence on supplemental oxygen; Z03.818 Encounter for observation for suspected exposure to other biological agents ruled out
CPT/HCPCS: 0241U; 36415; 71045; 80048; 80076; 81001; 82550; 82803; 82947; 83735; 83880; 84484; 85025; 85027; 87040; 87086; 87088; 87147; 87186; 87205; 93005; 96361; 96365; 96372; 96375; 96376; 97161; 99221; 99285; J0131; J0696; J1650

== ENCOUNTER → 2025-02-08 10:38 | Outpatient (BNV) | payer OTHER, SELFPAY | PROVIDERS: Emergency Provider Emergency Medicine; PCP Internal Medicine; Visit Provider Internal Medicine | DX: N39.0 Urinary tract infection, site not specified (principal); R53.1 Weakness; I10 Essential (primary) hypertension | CPT/HCPCS: 99223; 99232; 99239 ==

== ENCOUNTER → 2025-02-08 12:11 | Outpatient (BNV) | payer OTHER, SELFPAY | PROVIDERS: Admitting Provider Internal Medicine; Emergency Provider Emergency Medicine; PCP Internal Medicine; Visit Provider Internal Medicine Cardiovascular Disease | DX: I49.1 Atrial premature depolarization (principal); I49.9 Cardiac arrhythmia, unspecified; R06.02 Shortness of breath | CPT/HCPCS: 93010 ==

== ENCOUNTER → 2025-02-08 12:11 | Outpatient (BNV) | payer OTHER, SELFPAY | PROVIDERS: Emergency Provider Emergency Medicine; PCP Internal Medicine; Visit Provider Radiology Diagnostic Radiology | DX: J98.4 Other disorders of lung (principal); I51.7 Cardiomegaly | CPT/HCPCS: 71045 ==

== ENCOUNTER 2025-02-23 09:49 | Outpatient (AMB) | payer OTHER, SELFPAY ==
[2025-02-23 10:13] VITALS: BP 142/80; PULSE 68
--- NOTE | 2025-02-23 10:13 | MHC.OFFVIS ---
Vital Signs 02/23/25 10:13 Height 5 ft 3 in BP 142/80 H Blood Pressure Location Lt brachial Position Sitting Pulse 68 Pulse Source Pulse Oximeter Intake Visit Reasons: 3 mth f/up KM Echocardiograph Tech Required: Yes Echocardiograph Tech Language: Cotton Washer Name: voice moraes [id number] Allergies No Known Allergies [No Known Allergies*] Allergy (Verified 02/23/25 10:18) Medication List - Last Reconciled 02/23/25 by MAYRA Reardon albuterol sulfate 90 mcg/actuation 2 puffs inhalation Q4H PRN albuterol sulfate 2.5 mg inhalation Q6H PRN azithromycin 250 mg PO DAILY carvedilol 12.5 mg See Protocol PO BIDWM cefuroxime axetil 500 mg PO BID cetirizine (Zyrtec) 10 mg PO DAILY PRN cetirizine 10 mg PO DAILY PRN ergocalciferol (vitamin D2) 1,250 mcg PO MO famotidine 20 mg PO BID furosemide 40 mg PO DAILY hydrocortisone 1% 1 appl topical BID PRN insulin glargine (Lantus U-100 Insulin) 20 units (0.2 mL) subcut BEDTIME insulin lispro (Humalog KwikPen (U-100) Insulin) 5 units subcut BIDWM ketotifen fumarate 0.025%(0.035%) 1 drp ophthalmic (eye) Q12H PRN lancets (TRUEplus Lancets) As directed losartan 50 mg PO BID nitrofurantoin macrocrystal 100 mg PO BEDTIME ondansetron 4 - 8 mg PO Q8H PRN pantoprazole 20 mg PO DAILY@0630 pravastatin 40 mg PO BEDTIME sitagliptin phos-metformin 50-1,000 mg ER (Janumet XR) 1 tab PO DAILY spironolactone 25 mg PO DAILY HPI HPI 3 mth f/up KM: Details: Magalie is a 79-year-old female presenting with follow-up for diastolic heart failure and blood pressure management. Notable history includes diastolic heart failure, sleep apnea, obesity, essential hypertension, type 2 diabetes mellitus, COPD, and arthritis. Recently, she was hospitalized for weakness and urinary tract infection. The current medication regimen includes losartan, carvedilol, lasix and aldactone. On last visit her losartan was increased due to elevated blood pressure readings. Her breathing issues persist with oxygen usage as needed during the day and at night. she denying issues with heart palpitations, chest discomfort, lightheadedness. She is mostly sedentary and uses an electric wheelchair, not ambulating due to orthopedic issues. Blood pressure today is elevated, initially 142/80, recheck by me 152/88. Significant other is present. Certified nurse healthcare manager used. [facility] Medical History Unspecified urinary incontinence NICO (obstructive sleep apnea) CHF (congestive heart failure) 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 indication of end stage renal disease in patient 6 to 64 years of age Lymphadenopathy Abdominal pain Bursitis of right hip Osteoarthritis of right hip Restrictive ventilatory defect Dyspnea on exertion Varicose veins of right lower extremity with inflammation Pneumonitis Pulmonary hypertension Hypertensive cardiovascular disease Acute hypoxic on chronic hypercapnic respiratory failure Acute on chronic respiratory failure with hypoxemia Obesity hypoventilation syndrome GERD (gastroesophageal reflux disease) Hypertension Diabetes mellitus COPD (chronic obstructive pulmonary disease) Surgical History S/P laparoscopic cholecystectomy (07/14/21) Family History Mother Diabetes Social History Household Members: Unknown / Unable to assess Household Members Other:: cousin Housing: Unknown / Unable to assess Do you presently have visiting nurse or other home services: No Unable to assess alcohol history related to: Unknown Alcohol intake: never Patient Tobacco Use Status: Former Tobacco user Tobacco use type: Cigarette Years Smoked: 20 Advance Directives Date on File: 02/22/22 service: No Current occupational status: unemployed and disabled Review of Systems Const All systems reviewed & are unremarkable except as noted in HPI and below ENT Denies dizziness Card Details: wears O2 during night and when sob Denies chest pain, Denies chest pain at rest, Denies chest pain with activity, Denies rapid heart rate, Denies pedal edema, Denies edema, Denies leg edema, Denies lightheadedness, Denies palpitations, Reports dyspnea, Reports dyspnea on exertion and Denies orthopnea Resp Denies cough, Reports dyspnea and Reports dyspnea on exertion GI Denies hematochezia and Denies change in stool character Musc Details: does not walk, uses electric chair Reports abnormal gait, Reports limited range of motion, Denies muscle cramps, Reports muscle weakness, Denies numbness, Denies radiating pain into limb, Denies stiffness and Denies tingling Neuro Reports abnormal gait, Denies dizziness, Denies numbness and Denies tingling Endo Denies palpitations Physical Exam Vital Signs: Last Vital Signs Pulse 68 02/23/25 10:13 BP 142/80 H 02/23/25 10:13 Const General: cooperative, healthy appearing, comfortable and no acute distress Orientation/consciousness: patient oriented x3 Neck Neck: Yes normal visual inspection and Yes no JVD Resp Effort & Inspection: normal respiratory effort Auscultation: clear to auscultation bilaterally, no rales, no rhonchi and no wheezes Cardio Rate: regular rate Rhythm: regular rhythm Heart sounds: S1 normal heart sound present, S2 normal heart sound present, no gallops, no murmurs and no rubs Neuro General: patient oriented x3 Extrem General: Yes normal to inspection, No no pedal edema and No calf tenderness Psych Appearance: grossly normal Mental Status: mental status grossly normal Speech and movement: Normal speech and movement present Assessment & Plan Assessment & Plan (1) Chronic diastolic heart failure: Code(s): I50.32 - Chronic diastolic (congestive) heart failure Category: Medical Plan: History of diastolic heart failure controlled with the use of Lasix and Aldactone. She does not appear grossly fluid overloaded on exam today. Last echocardiogram 11/02/2023 showed EF greater than 70%, mild LVH, elevated right atrial pressures and mild pulmonary hypertension. Labs 02/09/2025 showed potassium 4.4, creatinine 0.46. Continue diuretics without change. Low-salt diet reviewed. Signs and symptoms of heart failure reviewed with her. (2) Hypertension: Code(s): I10 - Essential (primary) hypertension Category: Medical Plan: Blood pressure goal less than 130/80. Blood pressure elevated today. Losartan was increased last visit due to elevated readings as well. Will continue carvedilol current dose due to resting heart rate in the 60s currently. Continue losartan and current diuretics. Will add amlodipine 2.5 mg daily. Instructed to call if home blood pressures running greater than 140. Cardiology follow-up for re-evaluation in 3 months, sooner if needed. (3) NICO (obstructive sleep apnea): Code(s): G47.33 - Obstructive sleep apnea (adult) (pediatric) Category: Medical Plan: Wears O2 during sleep. (4) COPD (chronic obstructive pulmonary disease): Code(s): J44.9 - Chronic obstructive pulmonary disease, unspecified Category: Medical Plan: Follows with pulmonology. . Plan During the visit, I reviewed the patient's history of diastolic heart failure and the current management plan, emphasizing that euvolemic status was noted. I discussed the addition of amlodipine to address her hypertension proactively without increasing existing medication doses due to potential renal implications and possible bradycardia. The patient was informed about maintaining oxygen therapy at night and encouraged consistent use as required. I explained the importance of regular blood pressure monitoring and dietary salt restriction. I discussed plans for follow-up assessments and instructed on recording blood pressure readings and reporting high values. Medications: New amlodipine add to pill pack 2.5 mg PO DAILY 30 tabs 5RF Patient Instructions: - Keep taking your current heart medications. - Start taking amlodipine as per the new prescription. - Use oxygen at night as needed for breathing. - Check blood pressure regularly at home. - Avoid adding salt to your meals. - Report any blood pressure readings consistently over 140 mmHg. - Record your blood pressure and bring it to your next appointment. Patient was informed and verbally consented to the use of an ambient scribe for clinic note documentation during this visit. Visit time spent on chart review, interview, assessment, orders, documentation. Coding Level of Care Code Est Pt Level 4 (36233) Complex EM visit Add On G2211 Diagnoses Chronic diastolic heart failure I50.32 Hypertension I10 NICO (obstructive sleep apnea) G47.33 COPD (chronic obstructive pulmonary disease) J44.9 Time Spent (min) 32
--- OUTSIDE RECORDS SUMMARY | 2025-02-23 10:34 | XMS_ITS | Encounter Summary ---
Author Organization [employer] Address [address] [place] [address] Care Team Providers Care Antiquer Name Role Phone Carmine Patel MD Primary Care Provider [phone] Luke Gayle PharmD Unavailable Unavail able Bárbara Rader MD Primary Care Provide r Encounter Details Date Type Department Care Team ([facility] st Contact Info) Description 06/26/2024 Orders Only [facility] [address] [place] [place], [place] [phone] Carmine Patel MD [address] [place], [place] [phone] Burning sensation (Primary Dx) Social History Tobacco [...] Care Team (Late st Contact Info) Description 03/02/2025 1:45 PM EDT Office Visit [facility] [address] [place] [id number] Bárbara Rader MD [address] [place] [address] documented as of this encounter Goals Goal [...] documented as of this encounter Care Teams Antiquer Relationship Specialty Start Date End Date Carmine Patel MD [address] [place] [address] PCP - General Internal Medicine 11/16/15 07/15/24 Bárbara Rader MD [address] [place] [id number] PCP - General Internal Medicine 07/16/24 Luke Gayle, JarettD [address] [place] [phone] Pharmacist Internal Medicine 09/04/22 [facility] 07/10/24 11/19/24 [facility] 11/17/24 documented as of this encounter
== END 2025-02-23 10:58 | disposition home or self-care (01) ==
LOC: HO.HCS 09:49
PROVIDERS: PCP Internal Medicine; Visit Provider Nurse Practitioner Family
DX: I50.32 Chronic diastolic (congestive) heart failure (principal); I10 Essential (primary) hypertension; G47.33 Obstructive sleep apnea (adult) (pediatric); J44.9 Chronic obstructive pulmonary disease, unspecified
CPT/HCPCS: 99214; G2211

== ENCOUNTER → 2025-02-23 09:49 | Outpatient (BNVA) | payer OTHER, SELFPAY | PROVIDERS: PCP Internal Medicine; Visit Provider Nurse Practitioner Family | DX: I50.32 Chronic diastolic (congestive) heart failure (principal); I10 Essential (primary) hypertension; G47.33 Obstructive sleep apnea (adult) (pediatric); J44.9 Chronic obstructive pulmonary disease, unspecified | CPT/HCPCS: 99212 ==

== ENCOUNTER 2025-02-24 14:33 | Outpatient (RCR) | payer OTHER, SELFPAY | END 2025-05-04 11:41 | disposition home or self-care (01) | LOC: HO.PT 14:33 | PROVIDERS: PCP Internal Medicine; Visit Provider Internal Medicine | DX: R29.898 Other symptoms and signs involving the musculoskeletal system (principal) | CPT/HCPCS: 97110; 97116; 97140; 97162; 97535 ==

== ENCOUNTER 2025-02-26 12:49 | Outpatient (AMB) | payer OTHER, SELFPAY ==
--- NOTE | 2025-02-26 13:25 | MHC.OFFVIS ---
Vital Signs 02/26/25 13:26 Height 5 ft 3 in BP 132/78 Blood Pressure Location Rt brachial Position Sitting Pulse 70 Pulse Source Pulse Oximeter Pulse Oximetry (%) 94 Oxygen Delivery Method Nasal Cannula Oxygen Flow Rate 2 Intake Visit Reasons: Obstructive sleep apnea Allergies No Known Allergies [No Known Allergies*] Allergy (Verified 02/26/25 13:29) Medication List - Last Reconciled 02/26/25 by Luz Escobar LPN albuterol sulfate 90 mcg/actuation 2 puffs inhalation Q4H PRN albuterol sulfate 2.5 mg inhalation Q6H PRN amlodipine 2.5 mg PO DAILY azithromycin 250 mg PO DAILY carvedilol 12.5 mg See Protocol PO BIDWM cefuroxime axetil 500 mg PO BID cetirizine (Zyrtec) 10 mg PO DAILY PRN cetirizine 10 mg PO DAILY PRN ergocalciferol (vitamin D2) 1,250 mcg PO MO famotidine 20 mg PO BID furosemide 40 mg PO DAILY hydrocortisone 1% 1 appl topical BID PRN insulin glargine (Lantus U-100 Insulin) 20 units (0.2 mL) subcut BEDTIME insulin lispro (Humalog KwikPen (U-100) Insulin) 5 units subcut BIDWM ketotifen fumarate 0.025%(0.035%) 1 drp ophthalmic (eye) Q12H PRN lancets (TRUEplus Lancets) As directed losartan 50 mg PO BID nitrofurantoin macrocrystal 100 mg PO BEDTIME ondansetron 4 - 8 mg PO Q8H PRN pantoprazole 20 mg PO DAILY@0630 pravastatin 40 mg PO BEDTIME sitagliptin phos-metformin 50-1,000 mg ER (Janumet XR) 1 tab PO DAILY spironolactone 25 mg PO DAILY HPI HPI Obstructive sleep apnea: Details: 79-year-old lady, former smoker, quit over 30 years prior, with underlying history morbid obesity, NICO/obesity hypoventilation syndrome diastolic dysfunction followed for severe NICO on BiPAP therapy . After she got her new machine her respiratory/sleep apnea symptoms are well controlled. She continues to require supplemental oxygen, she is not able to perform 6 minute walk test secondary to inability to walk independently. [facility] Medical History Unspecified urinary incontinence NICO (obstructive sleep apnea) CHF (congestive heart failure) 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 indication of end stage renal disease in patient 6 to 64 years of age Lymphadenopathy Abdominal pain Bursitis of right hip Osteoarthritis of right hip Restrictive ventilatory defect Dyspnea on exertion Varicose veins of right lower extremity with inflammation Pneumonitis Pulmonary hypertension Hypertensive cardiovascular disease Acute hypoxic on chronic hypercapnic respiratory failure Acute on chronic respiratory failure with hypoxemia Obesity hypoventilation syndrome GERD (gastroesophageal reflux disease) Hypertension Diabetes mellitus COPD (chronic obstructive pulmonary disease) Surgical History S/P laparoscopic cholecystectomy (07/14/21) Family History Mother Diabetes Social History Household Members: Unknown / Unable to assess Household Members Other:: cousin Housing: Unknown / Unable to assess Do you presently have visiting nurse or other home services: No Unable to assess alcohol history related to: Unknown Alcohol intake: never Patient Tobacco Use Status: Former Tobacco user Tobacco use type: Cigarette Years Smoked: 20 Advance Directives Date on File: 02/22/22 service: No Current occupational status: unemployed and disabled Review of Systems Const Denies daytime sleepiness, Denies excessive sweating, Denies fatigue, Denies fever(s), Denies lethargy, Denies malaise, Denies night sweats, Denies snoring and Denies weight loss Eyes Denies blurry vision and Denies itchy eyes ENT Denies nasal congestion, Denies post nasal drip, Denies sinus pain, Denies sinus pressure and Denies other ( Thrush) Card Denies chest pain, Denies pedal edema, Denies dyspnea, Denies orthopnea and Denies paroxysmal nocturnal dyspnea Resp Denies cough, Denies hemoptysis, Denies excessive phlegm production, Denies dyspnea, Denies snoring and Denies wheezing GI Denies abdominal pain and Denies heartburn Musc Denies myalgias, Denies arthralgias and Denies joint swelling Skin/Breast Denies rash Neuro Denies memory loss and Denies seizure-like activity Psych Denies abnormal sleep pattern, Denies anxiety and Denies memory loss Endo Denies excessive sweating, Denies fatigue and Denies heat intolerance Ralph/Lymph Denies easy bruising Aller/Immun Denies itchy eyes, Denies seasonal rhinorrhea and Denies wheezing Physical Exam Vital Signs: Last Vital Signs Pulse 70 02/26/25 13:26 BP 132/78 02/26/25 13:26 Pulse Ox 94 02/26/25 13:26 Oxygen Delivery Method Nasal Cannula 02/26/25 13:26 Oxygen Flow Rate 2 02/26/25 13:26 Const General: no acute distress and alert Nutritional Appearance: not obese Orientation/consciousness: Other orientation findings ( oriented) HEENT Head: Yes atraumatic Eyes General: appearance normal, both eyes and all related structures Sclerae: sclerae normal EOM: EOMs intact bilaterally Neck Neck: Yes supple Lymphatic: no lymphadenopathy noted Resp Effort & Inspection: normal respiratory effort and no use of accessory muscles Auscultation: clear to auscultation bilaterally Cardio Rate: regular rate Rhythm: regular rhythm Heart sounds: no gallops, no murmurs and no rubs Skin General skin exam: other ( warm) Extrem General: No clubbing, No cyanosis and No edema Assessment & Plan Assessment & Plan (1) Class 3 obesity with alveolar hypoventilation and body mass index (BMI) of 40.0 to 44.9 in adult: Code(s): E66.2 - Morbid (severe) obesity with alveolar hypoventilation; Z68.41 - Body mass index [BMI] 40.0-44.9, adult Category: Medical (2) Obesity hypoventilation syndrome: Code(s): E66.2 - Morbid (severe) obesity with alveolar hypoventilation Category: Medical (3) Supplemental oxygen dependent: Code(s): Z99.81 - Dependence on supplemental oxygen Category: Medical (4) NICO (obstructive sleep apnea): Code(s): G47.33 - Obstructive sleep apnea (adult) (pediatric) Category: Medical Plan Sleep apnea/CO2 retention symptoms well controlled on current BiPAP therapy. Continue BiPAP therapy. Patient continues to require supplemental oxygen to maintain normal oximetry at rest. Continue supplemental oxygen. Coding Level of Care Code Est Pt Level 4 (68701) Diagnoses Class 3 obesity with alveolar hypoventilation and body mass index (BMI) of 40.0 to 44.9 in adult E66.2; Z68.41 Obesity hypoventilation syndrome E66.2 Supplemental oxygen dependent Z99.81 NICO (obstructive sleep apnea) G47.33
[2025-02-26 13:26] VITALS: BP 132/78; PULSE 70; O2SAT 94
--- OUTSIDE RECORDS SUMMARY | 2025-02-26 14:47 | XMS_ITS | Clinical Summary ---
Author Organization [facility] Address [address] [place] [address] Phone Care Team Providers Care Microsoft Dynamics Manager Architect Name Role Phone Carmine Patel MD Primary Care Provider Unav ailable Allergies Active Allergy Reactions Criticality Noted Date [...] every morning 04/04/2023 Active ergocalciferol 1.25 MG (16512 UT) capsule 50,000 Units 1 (one) time [...] Mass Index - - Plan of Treatment Health Maintenance Due Date Last Done Comments Diabetes: Ophthalmology Exam 11/29/2022 Diabetes: Pedal Pulse Checked 11/29/2022 Diabetes: Sensory Foot Exam 11/29/2022 Diabetes: Visual Foot Exam 11/29/2022 Diabetes: Hemoglobin A1C 02/25/2025 025, 10/24/2023, 06/18/2023, Additional history exists Pneumococcal Vaccine: 50+ Years Completed 05/03/2015, 07/27/2014, 03/01/2012 Influenza Vaccine Completed 06/03/2024, , 05/28/2020, Additional history exists Hepatitis B Vaccine Aged Out No longe r eligible based on patient's age to complete this topic Insurance [facility] ([id number]) [facility] ([id number]) [place] [id number] Care Teams Microsoft Dynamics Manager Architect Relationship Specialty Start Date End Date Carmine Patel MD [address] [place] [phone] PCP - General Internal Medicine 05/02/21
== END 2025-02-26 13:41 | disposition home or self-care (01) ==
LOC: HO.HPS 12:49
PROVIDERS: PCP Internal Medicine; Visit Provider Internal Medicine Pulmonary Disease
DX: E66.2 Morbid (severe) obesity with alveolar hypoventilation (principal); Z68.41 Body mass index [BMI] 40.0-44.9, adult; Z99.81 Dependence on supplemental oxygen; G47.33 Obstructive sleep apnea (adult) (pediatric)
CPT/HCPCS: 99214

== ENCOUNTER → 2025-02-26 12:49 | Outpatient (BNVA) | payer OTHER, SELFPAY | PROVIDERS: PCP Internal Medicine; Visit Provider Internal Medicine Pulmonary Disease | DX: E66.2 Morbid (severe) obesity with alveolar hypoventilation (principal); Z99.81 Dependence on supplemental oxygen; Z68.41 Body mass index [BMI] 40.0-44.9, adult | CPT/HCPCS: 99212 ==

== ENCOUNTER 2025-03-06 08:58 | Outpatient (REF) | payer OTHER, SELFPAY ==
--- OUTSIDE RECORDS SUMMARY | 2025-03-06 09:08 | XMS_ITS | Clinical Summary ---
Author Organization [facility] Address [address] [place] [phone] Phone Care Team Providers Care Sound Effects Technician Name Role Phone Carmine Patel MD [...] every morning 04/04/2023 Active ergocalciferol 1.25 MG (55163 UT) capsule 50,000 Units 1 (one) time [...] patient's age to complete this topic Insurance [facility] ([id number]) [facility] ([id number]) [place] [id number] Care Teams Sound Effects Technician Relationship Specialty Start Date End Date Carmine Patel MD [address] [place] [phone] PCP - General Internal Medicine 05/02/21
[2025-03-06 11:40] LABS: Appearance Urine Clear; Color Urine Yellow; Glucose Urine UA Negative (Negative); Leukocyte Esterase Urine Moderate (2+) (Negative); Nitrite Urine Negative (Negative); UMIC TRIGGER UA YES; Urine Blood Negative (Negative); Urine Ketones Negative (Negative); Urine Protein Negative (Neg-Trace)
[2025-03-06 11:44] LABS: Bacteria Urine None Seen (None Seen); Hyaline Casts Urine 0-2 /LPF (0-2); RBC Urine 0-2 /HPF (0-2); WBC Urine 21-50 /HPF (0-5)
== END 2025-03-06 08:59 | disposition home or self-care (01) ==
LOC: HO.HHCL 08:58
PROVIDERS: PCP Internal Medicine; Visit Provider Urology
DX: N39.0 Urinary tract infection, site not specified (principal); R35.0 Frequency of micturition
CPT/HCPCS: 81001; 87086

== ENCOUNTER 2025-03-24 10:43 | Outpatient (REF) | payer OTHER, SELFPAY ==
--- NOTE | ~2025-03-24 | MM_ITS ---
EXAMINATION: MM SCREENING DIGITAL BREAST TOMOSYNTHESIS, BILATERAL CLINICAL INFORMATION: Screening. Asymptomatic. COMPARISON: Comparison made to multiple prior, most recent right diagnostic mammogram on March 12, 2024, and most remote April 08, 2015. TECHNIQUE: Digital breast tomosynthesis is performed in both the craniocaudal and mediolateral oblique views along with computer-aided detection (CAD). Synthesized 2D images are generated from the tomosynthesis. Best possible images according to technologist's notes (patient on a wheelchair and images obtained with 2 technologists in the room). FINDINGS: BREAST COMPOSITION: There are scattered areas of fibroglandular density (ACR BI-RADS breast composition Category b). BILATERAL BREASTS: No significant masses, suspicious calcifications or other abnormalities are seen in either breast. MM/MM tomosynthesis screening BI IMPRESSION: BILATERAL BREASTS: Negative, no mammographic evidence of malignancy. Normal interval follow-up is recommended in 12 months. ASSESSMENT: BI-RADS 1 - Negative RECOMMENDATION: Routine annual mammography screening. FOLLOW-UP: 1 year F/U This examination should not preclude the clinical evaluation of a suspicious palpable abnormality. This patient's information was entered into a reminder system with a target due date for their next mammogram. Electronically signed by: Ulysses Nicholson MD 04/06/2025 06:25 PM EDT
--- OUTSIDE RECORDS SUMMARY | 2025-03-24 11:44 | XMS_ITS | Data Portability ---
Author Organization [facility] EITANAmerican [facility] Address [address] [place] [address] Care Team Providers Care Ice Resurfacing Machine Operators Name Role Phone HIM CCA OTHER [facility] OTHER [phone] Assessment Encounter Date Assessment Date Assessment LastModified [...] q6hr PRN. FUP with PCP. Precautions reviewed. [email or web address] Not available 10/20/2024 22:40:59 11/11/2024 11/11/2024 I provided real -time medical direction via phone for this encounter, and was available for additional phone based assistance as needed. I have reviewed and agree with the Assessment and Plan as documented by the Threading Machine Operator. We discussed the diagnostic uncertainty of home [...] to call 911- verbalized understanding of instruction [email or web address] Not available 11/11/2024 11:09:06 Plan of Treatment Reminders Order Date Submit Date Provider Last Modified By Organization Details Last Modified Time Details Appointments None recorded. Lab BMP, serum or plasma 2024 025 AFSHIN Kaufman Eitan, [address] [place] [address], [id number] 5 08:12:40 rapid flu (A+B) 2024 025 [email or web address] 0 [facility], [address] [place] [address], [address] [place] [address] 5 17:59:22 rapid SARS CoV 2 Ag, QL IA, respiratory specimen 2024 025 [email or web address] 0 Main - [facility], [address] [place] [address], [address] [place] [address] 5 17:59:22 urinalysis, dipstick 2024 025 [email or web address] [facility], [address] [place] [address], [address] [place] [address] 5 16:56:12 BMP, serum or plasma 2024 025 [email or web address] [facility], [address] [place] [address], [address] [place] [address] 5 16:56:12 culture, urine 2024 025 AFSHIN [facility] (Centralized Electronic Ordering - All Locations), Patient Can Go To The Location Of Their Choice, [id number] 5 10:05:34 rapid flu (A+B) 2024 025 AFSHIN Main - [facility], [address] [place] [address], [address] [place] [address] 5 19:51:19 glucose, fingerstick , blood 2024 025 [email or web address] [facility], [address] [place] [address], [address] [place] [address] 5 18:03:29 Referral None recorded. Procedures None recorded. Surgeries None recorded. Imaging electrocard iogram 2024 025 [email or web address] 0 [facility], [address] [place] [address], [address] [place] [address] 5 17:59:23 electrocard iogram 2024 025 [email or web address] [facility], [address] [place] [address], [address] [place] [address] 5 18:07:21 Medication Orders ondansetron HCl (PF) 4 mg/2 mL injection solution 2024 025 [email or web address] 0 [facility], [address] [place] [address], [id number], 5 17:59:21 lactated Ringers intravenous solution 2024 025 [email or web address] 0 [facility], [address] [place] [address], [id number], 5 17:59:21 ondansetron 4 mg disintegrat ing tablet [address] [facility], [address] [place] [address], [id number], 5 09:13:59 sulfamethox azole 800 mg-trimetho prim [address] [facility], [address] [place] [address], [id number], 5 11:07:13 Tylenol Extra Strength 500 mg tablet 2024 025 [email or web address] 7 [facility], [address] [place] [address], [id number], 5 20:55:03 Proventil HFA 90 mcg/actuati on aerosol inhaler [address] [facility], [address] [place] [address], [id number], 5 13:00:53 ipratropium 0.5 mg-albutero l 3 mg (2.5 mg base)/3 mL nebulizatio n soln 2024 025 [facility], [address] [place] [address], [id number], 5 17:16:48 azithromyci n 250 mg tablet 2024 025 [email or web address] [facility], [address] [place] [address], [id number], 18:04:54 azithromyci n 250 mg tablet 2024 025 [facility] [address] [place] [address], [id number], 13:00:49 Patient TargetsNo targets recorded. Patient InstructionsNo instructions recorded. Reason for Referral None Reported. Results Created Date Observation Date Name Description Value Unit Range Abnormal Flag Note LastModifiedBy Organization Detail LastModifiedTime 10/03/1910/03/2024 rapid flu (A+B) Flu negati ve Not Available [facility] - [facility] ed [address] [place] [address], [id number] 10/03/2024 17:09:58 10/03/1910/03/2024 gluco se, finge rstic k, blood Blood Glucose: mg/dl 187 Not Available Main - [facility] [address] [place] [address], [id number] 10/03/2024 17:16:05 10/18/19 25 10/21/2024 URINE CULTU RE,CO MPREH ENSIV E urine culture,comp rehensive Final report abnormal Not Available [facility] ([facility]) [address] [facility], [place], [address], 10/21/2024 12:44:16 10/18/19 25 10/21/2024 URINE CULTU [...] compl ex, and Klebs iella aerog chin. [place] irwin that initi ally test susce ptibl e may becom e resis tant withi n a few days after initi ation of thera py. Testi ng subse quent isola irwin may be warra nted if clini annette indic ated. (CLSI M100- Ed33) Great er than 100,0 00 colon y formi ng units per mL Not Available [facility] ([facility]) [address] [facility] [facility], [place], [address], 10/21/2024 12:44:16 10/18/19 25 10/21/2024 URINE CULTU [...] lfa S Not Available [facility] ([facility]) [address] [facility], [place], [address], 10/21/2024 12:44:16 11/11/19 25 11/11/2024 rapid SARS CoV 2 Ag, QL IA, respi rator y speci men rapid SARS CoV 2 Ag, QL IA, respiratory specimen negati ve Not Available [facility] [address] [place] [address], [id number] 11/11/2024 11:05:36 11/11/19 25 11/11/2024 rapid flu (A+B) Flu negati ve Not Available [facility] [address] [place] [address], [id number] 11/11/2024 11:05:35 10/03/19 25 10/03/2024 elect hernan milesgr am No observ ation record ed. [email or web address] Main - [facility] [address] [place] [address], [id number] 10/03/2024 18:07:20 11/11/19 25 11/12/2024 elect hernan diogr am No observ ation record ed. [email or web address] Main - [facility] [address] [place] [address], [id number] 11/12/2024 08:13:36 Result Notes None recorded. Medical Equipment None Reported. Allergies Allergen ID Allergen Name Allergen Category Reaction Reaction Severity Criticality Documentation Date Start Date Code Code System Note Provider Name and Address Organization Details Recorded Time 24746 lisinopri l medicatio n Not available Not available Not available 10/03/2024 19472 RxNorm Not Available [facility] - production 14:54:18 [...] Body weight Heart rate Respiratory rate Systolic And Diastolic Provider Name and Address Organization Details Last Updated DateTime 5 99.3 [degF] 97 % 97 % 368745 g 73 /min 16 /min 146/81 mm[Hg] Not Available [facility] - production 5 16:44:11 Date Recorded Heart rate Body weight Body height Body temperature Oxygen saturation Oxygen saturation in Arterial blood by Pulse oximetry Inhaled oxygen flow rate Respiratory rate Systolic And Diastolic Provider Name and Address Organization Details Last Updated DateTime 5 73 /min 074749 g 160.02 cm 99 [degF] 98 % 98 % 2 L/min 18 /min 155/81 mm[Hg] Not Available [email or web address] - production 5 20:52:30 Date Recorded Heart rate Respiratory rate Oxygen saturation Oxygen saturation in Arterial blood by Pulse oximetry Inhaled oxygen flow rate Body weight Body height Body temperature Systolic And Diastolic Provider Name and Address Organization Details Last Updated DateTime 5 60 /min 18 /min 100 % 100 % 2 L/min 453391 g 160.02 cm 98.7 [degF] 194/91 mm[Hg] Not Available [email or web address] - production 5 15:59:16 Date Recorded Body temperature Oxygen saturation Oxygen saturation in Arterial blood by Pulse oximetry Inhaled oxygen flow rate Body weight Body height Respiratory rate Heart rate Systolic And Diastolic Provider Name and Address Organization Details Last Updated DateTime 5 98.4 [degF] 95 % 95 % 2 L/min 687966. 04 g 160.02 cm 16 /min 80 /min 116/74 mm[Hg] Not Available [facility] [facility] 5 11:01:38 Social History None recorded. Functional Status None recorded. Mental Status None recorded. Family History Nothing Reported. Medical History No medical history recorded. Gynecological HistoryNo gynecological history recorded. Obstetrics History GPAL:G 0 P 0 0 0 0 Past Encounters Encounter ID Performer Location Encounter Start Date Encounter Closed Date Diagnosis/Indication Diagnosis SNOMED-CT Code Diagnosis ICD10 Code Diagnosis Note [id number] Bautista Cueva MD [address] [address] 10/23/2023 17:01:07 10/23/2023 22:32:23 Loose stool 398932322 R19.5 [id number] Allyn Massey MD Main - [address] [address] 01/11/2024 10:20:30 01/11/2024 16:25:20 Muscle weakness 38252496 M62.81 [id number] David Retana MD [facility] - [address] [address] 01/24/2024 13:12:58 01/24/2024 22:56:49 Bilateral lower limb edema 195304658 R60.0 Acute on chronic. Patient with daily [...] which to seek higher level of care. [id number] JOSE LUIS GERONIMO MD Main - [facility] [address] [place] [address] 10/03/2024 16:28:44 10/03/2024 22:24:33 Contusion of orbital tissue of right eye [id number] 2689310 S05.11XA Evaluation in the field was performed by my table games dealer colleague, as noted above, I provided real-time direction and supervisio n for this visit. Hong Konger interprete r was used to communicat e [...] room air. Low-grade temperatur e, but the table games dealer reports that the room is very warm.Exam: Small bruising and swelling under the right eye and temporal area, with no periorbita l ecchymosis ( raccoon eyes ). No tenderness to palpation over the affected area or the bridge of the nose. Normal eye movement with no reported pain. The table games dealer reports rhonchi on lung examinatio n. No [...] exac erbation of chronic obstructive pulmonary disease 379369253 J44.1 Patient denies shortness of breath, cough, or upper respirator y infection symptoms. The table games dealer reported rhonchi on lung examinatio n. On [...] the first dose administer ed by the table games dealer. -Due to the lack of wheezing, her stable oxygen saturation on chronic oxygen, and her history of diabetes requiring insulin, the decision was made not to start Prednisone to avoid hyperglyce daniela.-Red flags were discussed with the patient. [id number] DA MUÑOZ MD [facility] - [address] [address] 10/16/2024 20:52:29 10/21/2024 15:57:41 Headache 95474090 R51.9 Pain in left arm 0832936 00 M79.602 [id number] Mar Jiménez MD [address] [address] 10/18/2024 15:45:59 10/21/2024 16:36:29 Altered mental status 443817049 R41.82 Evaluation in the field was performed by my table games dealer colleague, as noted above, I provided real-time direction and supervisio n for this visit. 79 yo F PMHx HTN, CAD, T2DM, COPD on 2L home O2 p/w ongoing ANGELO, body aches for which she was seen yesterday by [facility]. Repeat visit requested by son as pt awoke this AM and felt confused, spontaneou sly resolved. Triage note reports dizziness however pt denies this. ANGELO resolved. Endorsed urinary frequency without dysuria, fevers, hematuria. On table games dealer eval VS wnl, exam wnl including A+O [...] endorsed ongoing L shoulder/a rm pain. On table games dealer exam not swelling or deformity, rotator cuff [...] shortness of breath, cough, chest pain, fever. [id number] Sayra Arevalo MD Main - [facility] [address] [place] [address] 10/21/2024 15:55:58 10/21/2024 17:31:04 Urinary symptoms [id number] R39.9 [id number] Luz Love MD Main - [address] [address] 11/11/2024 11:01:33 11/12/2024 12:20:21 Nausea, vomiting and diarrhea 5944314 R11.2 R19.7 labs not concerning / given [...] Elizondo Member ID Guarantor Name 11/12/2024 1 [facility] - DOS ON OR AFTER 2022 - DUAL ELIGIBLE - LONG-TERM OPTIONS AND ONE CARE (MEDICARE REPLACEMENT/ADV ANTAGE - HMO) Magalie Stein [id number] Magalie Stein Notes Date Note Type Note [...] at 10/03/2024:54 Allergies Reviewed at 10/03/2024:54 Comments: PEEWEE RN did not require any additional information to process this visit. Threading Machine Operator Organization Information for Linda Leyva Legal Name: [employer]. Address: [address] [place] [address], Export Administrator: Too Welch MD NO No.: [id number] Threading Machine Operator POC Test Results from Linda Leyva Rapid influenza antigen (17:29:49) Flu: - Attachments uploaded as part of this test result can be found under Documents section. EKG (17:59:36) EKG test performed. Attachments uploaded as part of this test result can be found under Documents section. ................... ................... ................... ................... ................... ................... ................... ........ Threading Machine Operator Note From Linda Leyva: Disp for the 79 year old female cc head/eye injury. Upon arrival patient found sitting in recliner in living room. Patient is Hong Konger speaking only' full time staff interpreter used during visit. Patient is IQBAL x 4 GCS x 15, patient does not know the month or year and was unsure of her street address. Patient reports she is unable to read or write. Patient appeared to answer questions appropriately for full time staff interpreter. Patient denies chest pain, denies shortness of breath, denies abdominal pain, denies n/v/d, denies head pain, denies changes to vision, complains of bilateral leg weakness. Patient's son called for appointment due to patient falling on 09/17/24 and hitting her right side of face. Patient refused to go to the ER after injury. Son reported increased swelling at right cheondoism and around right lower eye. Patient states [...] blood work and I.V. access. Consulted with [facility] G[place]imo. Dr. Geronimo ordered DuoNeb updraft [...] the patient of red flags/risk factors with full time staff interpreter. Patient understood. Dr. Geronimo she will send request to her PCP for physical therapy referral. Dr. Geronimo advised patient she can take her albuterol inhaler tonight every 4-6 hours as needed and to continue antibiotics tomorrow as prescribed. All times approx. ................... ................... ................... ................... ................... ................... ................... ........ [facility] Consulted: Jose Luis Geronimo ................... ................... ................... ................... ................... ................... ................... ........ Disposition: Fulfilled JOSE LUIS GERONIMO MD [address] [facility],[address], [place], [address], [place]AY[place] - [employer] 10/03/2024 21:37:27 10/16/2024 text/html HPI: Call returned [...] for our walk in today. Agrees to [employer] [place] cesar medellin. Confirmed Demographics and allergies. ................... [...] ................... ................... ................... ................... ................... ................... ........ Threading Machine Operator Note From Joselito Rogers: [facility] visit for female pt. Pt is kyrgyz speaking only and full time staff interpreter was used. Pt presents complaining of headache [...] afebrile. Lung sounds clear bilaterally. Consulted with [facility] Muñoz and reviewed dosage for tylenol. Pt then stated had taken some at 3 pm and would take more if she thought she needed it . Reviewed red flags for ED. Pt education provided. ................... ................... ................... ................... ................... ................... ................... ........ [facility] Consulted: Da Muñoz ................... ................... ................... ................... ................... ................... ................... ........ Disposition: Fulfilled DA MUÑOZ MD [address] [place] [address],[address], [place], [address], [facility] [address] [facility] 10/20/2024 22:41:05 10/18/2024 text/html CRC Nurse Triage [...] Allergies Reviewed at 10/18/2024 - : Comments: Machine Ii Trimmer verified the member's name//address and phone number. [...] declined. [facility] Red flags reviewed. Explained if member s/s worsen or change family needs to call emergency services. Education provided on the response time and the member was advised to monitor reported s/s and seek emergency treatment if needed. Threading Machine Operator Organization Information for Efrain Oakley [employer] Legal Name: [employer]. Address: [address] [place] [address], Export Administrator: Too Welch MD CLIA No.: [id number] Threading Machine Operator POC Test Results from Efrain Oakley Urine Dipstick (16:02:19) Urine leukocytes: 70+ PORSCHE Urine nitrites: - NIT Urine urobilinogen: 0.2-3.5 URO Urine protein: 15+-0.15 PRO Urine pH: 7.0 pH Urine blood: - BLO Urine specific gravity: 1.010 SG Urine ketones: 5+-0.5 KET Urine bilirubin: - RICO Urine glucose: - GLU ................... ................... ................... ................... ................... ................... ................... ........ Threading Machine Operator Note From Efrain Oakley: [facility] makes pt contact. She is seated in a chair in her living room and she turns and greets [facility]. She is generally well appearing, wearing a NC, and making good eye contact. No stridor or sonorous respirations are heard, no facial droop or one-sided weakness are observed, and she is not bleeding anywhere. Pt is Hong Konger-speaking only, so full time staff interpreter services via cell phone are attempted. Pt has difficulty hearing and understanding the full time staff interpreter, so she calls her son on FaceTime and he provides hx and translation services. Pt endorses waking up this morning feeling confused and w/ L arm pain. She is denying cp, sob, n/v/d, and no recent falls or trauma to her head or UEs. Son tells [facility] pt has been sleeping most of the [...] She consents to evaluation and treatment today. [facility] obtains vital signs and pt is assessed. Lung sounds are clear and nothing remarkable is noted upon physical exam. Urine sample is obtained via clean catch for culture and dip stick analysis. [facility] contacts [facility] and discusses the above. [facility] orders urine culture and a bmp. [facility] is unable to gain IV access for bmp. [facility] gives instructions for family to take pt to the ED if her confusion persists and decision about medication for possible UTI will be made after culture returns. Pt and family thank [facility] for coming. [facility] is clear. Report completed by WINSTON Oakley [id number]. [facility] Lab Orders: urinalysis, dipstick: Performed BMP, serum or plasma: Not Performed Comment: Unable to obtain adequate sample amount. ................... ................... ................... ................... ................... ................... ................... ........ [facility] Consulted: Mar Jiménez ................... ................... ................... ................... ................... ................... ................... ........ Disposition: Fulfilled Mar Jiménez MD [address] [facility],[address], [place], [address], [facility] Neuro [employer] NORMAN 10/18/2024 21:29:19 11/11/2024 text/html CRC Nurse Triage Notes (Edney, Maaem): Reason For Request: Patient woke up vomiting, and headache, stomach pain. Patient Reports: Diarrhea no blood in stool; Nausea with or [...] Infections (UTI), Chronic Kidney DiseasePMH Reviewed at 11/11/2024:14Allergies Reviewed at 11/11/2024:14Comments: Patient woke up this morning with vomiting, abdominal pain and headache. Vomited 4x's today. Reporting upper mid abdominal pain. Non-radiating. Diarrhea x1. Denies fever, or dizziness/lighthead edness. Education provided on the response time and the member was advised to monitor reported s/s and seek emergency treatment if needed. Threading Machine Operator Organization Information for Guanakito Vela Legal Name: [facility] TransportationAddre ss: [address] [facility], [place] [address], Medical Director: Geo Galvin [facility] No.: [id number] Threading Machine Operator POC Test Results from Guanakito Vela [facility] (:57:11)pH: 7.38 pH unitspCO2: 61.2 mmHgpO2: 37.6 mmHgNa: 141 mmol/LK: 4.3 mmol/LiCa: 1.16 mmol/LCl: 96 mmol/LTCO2: 35.7 mEq/LHct: 36 %Hb: 12.2 g/dLGlu: 121 mg/dLLac: 1.6 mmol/LCr: 0.58 mg/dLBUN: 14 mg/dLA mmol/LHCO3: 36.5 mmol/L Rapid COVID antigen (:57:12)COVID: - Rapid influenza antigen (:57:13)Flu: - EKG (11:16:39) EKG test performed. Attachments uploaded as part of this test result can be found under Documents section. ................... ................... ................... ................... ................... ................... ................... ........ Threading Machine Operator Note From Guanakito Vela: This 79-year-old female [...] questions and is agreeable to this plan. [facility] Lab Orders: BMP, serum or plasma: Performed rapid flu (A+B): Performed rapid SARS CoV 2 Ag, QL IA, respiratory specimen: Performed [facility] Medication Orders: ondansetron HCl (PF) 4 mg/2 mL injection solution: Administered lactated Ringers intravenous solution: Administered ................... ................... ................... ................... ................... ................... ................... ........ [facility] Consulted: Luz Love ................... ................... ................... ................... ................... ................... ................... ........ Disposition: Fulfilled SEGMD: As above: Patient denies any known sick contacts, fever, chills, diaphoresis/dizzine ss or syncope. Luz Love MD [address] [facility],[address], [place], [address], [employer] 11/12/2024 13:27:51 OBGyn Episode No OBEpisode recorded.
--- OUTSIDE RECORDS SUMMARY | 2025-03-24 11:44 | XMS_ITS | Clinical Summary ---
Author Organization [facility] Address [address] [place] [address] Phone Care Team Providers Care Cutter Woodwind Reeds Name Role Phone Carmine Patel MD Primary [...] every morning 04/04/2023 Active ergocalciferol 1.25 MG (58309 UT) capsule 50,000 Units 1 (one) time [...] 02/25/2025 025, 10/24/2023, 06/18/2023, Additional history exists Influenza Vaccine (#1) 2025 , 06/18/2023, 05/28/2020, Additional history exists Pneumococcal Vaccine: 50+ Years Completed 05/03/2015, 07/27/2014, 03/01/2012 Hepatitis B Vaccine Aged Out No longe r eligible based on patient's age to complete this topic Insurance [facility] ([id number]) ZUHAIR ROBLERO [id number] [facility] ([id number]) ZUHAIR ROBLERO [id number] Care Teams Cutter Woodwind Reeds Relationship Specialty Start Date End Date Carmine Patel MD [address] [place] [address] [place] [address] PCP - General Internal Medicine 05/02/21
--- OUTSIDE RECORDS SUMMARY | 2025-03-24 11:44 | XMS_ITS | Encounter Summary ---
Author Organization [employer] Address [address] [facility] 7t [place] [address] Care Team Providers Care Chainstitch Pants Outseamer Name Role Phone Carmine Patel MD Primary Care Provider [phone] Luke Gayle PharmD Unavailable Unavail able Bárbara Rader MD Primary Care Provide r Encounter Details Date Type Department Care Team ([facility] st Contact Info) Description 06/26/2024 Orders Only [facility] CHC MED & PEDS [address] [place], [place] [phone] Carmine Patel MD [address] [place], [place] [phone] Burning sensation (Primary Dx) Social History Tobacco [...] Care Team (Late st Contact Info) Description 05/14/2025 11:30 AM EDT Office Visit [facility] MEDICINE [address] [place] [phone] Bárbara Rader MD [address] [place] [address] documented as of this encounter Goals Goal Patient Goal Type Associated Problems Recent Progress Patient-Stated? Author Blood Pressure < 140/90 Blood Pressure 135/62( 025 1:14 PM EDT) No Dellogono, Luke, PharmD documented as of this encounter Visit Diagnoses Diagnosis Burning sensation- Primary Disturbance of skin sensation documented in this encounter Additional Health Concerns Assessment Noted Time PHQ-9 Depression Total Score: 0 10/09/19 23 11:12 AM EST documented as of this encounter Care Teams Chainstitch Pants Outseamer Relationship Specialty Start Date End Date Carmine Patel MD [address] [place] [address] PCP - General Internal Medicine 11/16/15 07/15/24 Bárbara Rader MD [address] [place] [phone] PCP - General Internal Medicine 07/16/24 Luke Gayle, JarettD [address] [place] [id number] Pharmacist Internal Medicine 09/04/22 [facility] 07/10/24 11/19/24 [facility] 11/17/24 documented as of this encounter
== END 2025-03-24 10:44 | disposition home or self-care (01) ==
LOC: HO.MAMMO 10:43
PROVIDERS: PCP Internal Medicine; Visit Provider Internal Medicine
DX: Z12.31 Encounter for screening mammogram for malignant neoplasm of breast (principal)
CPT/HCPCS: 77063; 77067

== ENCOUNTER → 2025-03-24 13:15 | Outpatient (BNV) | payer OTHER, SELFPAY | PROVIDERS: PCP Internal Medicine; Visit Provider Radiology Body Imaging | DX: Z12.31 Encounter for screening mammogram for malignant neoplasm of breast (principal) | CPT/HCPCS: 77063; 77067 ==

== ENCOUNTER 2025-05-08 09:49 | Emergency (ER) | payer OTHER, SELFPAY ==
--- NOTE | ~2025-05-08 | XR_ITS ---
EXAMINATION: XR CHEST CLINICAL INFORMATION: SOB COMPARISON: February 08, 2025 TECHNIQUE: 2 views of the chest were obtained. FINDINGS: There is prominence of the right hilum. The heart size is enlarged. There is patchy opacity in the left lung base. Chronic coarse markings are noted in the left apex. XR/XR chest 2V IMPRESSION: Left basilar atelectasis versus pneumonia. Chronic coarse markings in the right apex. Cardiac right hilar fullness. Cardiomegaly. Electronically signed by: Jayant Armendariz MD 05/08/2025 11:29 AM EDT
[2025-05-08 09:59] VITALS: BP 107/60; BP 129/49; PULSE 76; PULSE 87; RESP 18; TEMP 37.1; O2SAT 99; BMI 44.3
--- NOTE | 2025-05-08 10:00 | ECG_ITS ---
Test Reason : sob Blood Pressure : */* mmHG Vent. Rate : 73 BPM Atrial Rate : 73 BPM P-R Int : 170 ms QRS Dur : 80 ms QT Int : 388 ms P-R-T Axes : 9 9 36 degrees QTcB Int : 427 ms Sinus rhythm with occasional Premature ventricular complexes Otherwise normal ECG When compared with ECG of 08-Feb-2025 16:04, Premature ventricular complexes are now Present Referred By: Elzbieta Franz Electronically Signed By: ALPHONSO TAVARES MD
[2025-05-08 10:18] LABS: MANUAL DIFF FLAG NO
[2025-05-08 10:27] LABS: Hematocrit 33.7 % (37.0-47.0); Hemoglobin 10.2 g/dl (12.0-16.0); Imm Gran Abs Auto 0.02 X10*3/uL (0.00-0.03); Imm Gran Pct Auto 0.3 % (0.0-0.4); Lymphocytes Absolute Auto 1.4 X10*3/uL (1.2-4.9); Mean Corpuscular HGB Conc 30.3 g/dl (31.0-35.0); Mean Corpuscular Hemoglobin 30.4 pg (27.0-33.0); Mean Corpuscular Volume 100.6 fL (80.0-98.0); NRBC Abs Auto 0.000 X10*3/uL (0.0-0.012); NRBC Pct Auto 0.0 /100WBC (0.0-0.2); Platelet Count 147 X10*3/uL (160-400); Red Blood Count 3.35 X10*6/uL (4.20-5.50); White Blood Count 6.1 X10*3/uL (4.8-10.8)
[2025-05-08 10:36] LABS: COVID-19 Test Negative (Negative); IDNOW Serial# 55D5AD1C; IDNOW Serial# 58CA691E; Influenza B2 Negative (Negative)
--- NOTE | 2025-05-08 10:39 | ED.GENADULT ---
HPI - General Adult General Chief complaint: General Medical Stated complaint: SOB BODY ACHES Time Seen by Provider: 05/08/25 10:37 Source: patient, RN notes reviewed and old records reviewed Mode of arrival: ambulatory Limitations: language barrier History of Present Illness ED Provider: Evita Cortes PA-C HPI narrative: Patient reports to the emergency department today for evaluation of respiratory cardiac symptoms that started about 2 or 3 days ago according to the triage note however patient denies this to me and is just reporting generalized coldness in both her hands and feet as well as muscle aches that are concentrated in her limbs only. She denies feeling short of breath she has no chest pain she uses a walker at baseline to ambulate. A hurts her hands to hold onto her walker. She is with her cousin who lives with her who says that he has generalized coldness in the house as well. Patient denies any new falls or trauma but did break her right ankle 1 year ago. She does not go to rehab for this but is interested in it as she is frustrated that she does not. She also reports for the last 4 weeks she has felt dizziness upon changing positions. She also has a decrease in her appetite during this time reporting early satiety. She is denying any abdominal discomfort nausea or vomiting or diarrhea no symptoms either. She feels like she is drinking adequately. She does monitor her blood sugars at home in the morning in the evening usually around the low 100s. She denies any syncope or feeling like she is going to pass out denies the room spinning. Reports always is urinating, but not different from her baseline and does not feel like it did back when she was last admited for UTI. Patient reports that she is compliant with her CPAP machine. And she does use her walker to go to the kitchen and cook and go to the bathroom. Past medical history significant for pulmonary hypertension, COPD, chronic respiratory failure, obesity, oxygen dependence on 2L NC at baseline, NICO on CPAP, and CHF. Associated symptoms They are associated with body aches. Chart reviewed she was last seen at ED for faustino [facility] on 02/08/25: She presented with 1 day of body aches found to be noncompliant with her CPAP machine. She was noted to have UTI while here and as patient did not feel safe to go home she was admitted for her generalized weakness. Related Data Home Medications ?Medication ?Instructions ?Recorded ?Confirmed lancets 33 gauge (TRUEplus Lancets) #100 ea 09/20/21 02/26/25 sitagliptin phos 50 mg-metformin 1 tab PO DAILY 02/20/22 02/26/25 ER 1,000 mg tablet,extend rel 24h mp (Janumet XR) furosemide 40 mg tablet 40 mg PO DAILY 05/11/23 02/26/25 albuterol sulfate 90 mcg/actuation 2 puff inhalation Q4H PRN Wheezing 11/02/23 02/26/25 aerosol inhaler ergocalciferol (vitamin D2) 1,250 1,250 mcg PO MO 11/02/23 02/26/25 mcg (50,000 unit) capsule famotidine 20 mg tablet 20 mg PO BID 11/02/23 02/26/25 pravastatin 40 mg tablet 40 mg PO BEDTIME 11/02/23 02/26/25 albuterol sulfate 2.5 mg/3 mL 2.5 mg inhalation Q6H PRN 05/04/24 02/26/25 (0.083 %) solution for nebulization Shortness Of Breath Or Wheezing pantoprazole 20 mg tablet,delayed 20 mg PO DAILY@0630 05/04/24 02/26/25 release insulin lispro 100 unit/mL 5 unit subcut BIDWM 08/06/24 02/26/25 subcutaneous pen (Humalog KwikPen (U-100) Insulin) ondansetron 4 mg disintegrating 4 - 8 mg PO Q8H PRN Nausea And 01/26/25 02/26/25 tablet Vomiting carvedilol 12.5 mg tablet 12.5 mg PO BIDWM 02/08/25 02/26/25 ketotifen fumarate 0.025 % (0.035 1 drp ophthalmic (eye) Q12H PRN 02/08/25 02/26/25 %) eye drops Allergy Symptoms azithromycin 250 mg tablet 250 mg PO DAILY 02/23/25 02/26/25 cetirizine 10 mg tablet 10 mg PO DAILY PRN allergies 02/23/25 02/26/25 nitrofurantoin macrocrystal 100 mg 100 mg PO BEDTIME 02/23/25 02/26/25 capsule spironolactone 25 mg tablet 25 mg PO DAILY 02/23/25 02/26/25 Previous Rx's ?Medication ?Instructions ?Recorded insulin glargine 100 unit/mL 20 unit (0.2 mL) subcut BEDTIME 11/15/23 subcutaneous solution (Lantus #10 mL U-100 Insulin) losartan 50 mg tablet 50 mg PO BID #120 tabs 11/24/24 cetirizine 10 mg capsule (Zyrtec) 10 mg PO DAILY PRN allergy 01/20/25 symptoms #14 caps hydrocortisone 1 % topical cream 1 appl topical BID PRN rash #28.35 01/20/25 grams cefuroxime axetil 500 mg tablet 500 mg PO BID #10 tabs 02/10/25 amlodipine 2.5 mg tablet 2.5 mg PO DAILY #30 tabs 02/23/25 nitrofurantoin 100 mg PO BID 7 days #14 caps 03/09/25 monohydrate/macrocrystals 100 mg capsule (Macrobid) cephalexin 500 mg capsule 500 mg PO QID #28 caplets 05/08/25 Allergies Allergy/AdvReac Type Severity Reaction Status Date / Time No Known Allergies (No Known Allergy Verified 05/08/25 10:04 Allergies*) Review of Systems Review of Systems: Yes all other systems are reviewed and are negative [facility] Past Medical History Attestation statement: The following information was validated with the patient. Source: old records reviewed, obtained from family and nursing notes reviewed Medical History Unspecified urinary incontinence NICO (obstructive sleep apnea) CHF (congestive heart failure) 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 indication of end stage renal disease in patient 6 to 64 years of age Lymphadenopathy Abdominal pain Bursitis of right hip Osteoarthritis of right hip Restrictive ventilatory defect Dyspnea on exertion Varicose veins of right lower extremity with inflammation Pneumonitis Pulmonary hypertension Hypertensive cardiovascular disease Acute hypoxic on chronic hypercapnic respiratory failure Acute on chronic respiratory failure with hypoxemia Obesity hypoventilation syndrome GERD (gastroesophageal reflux disease) Hypertension Diabetes mellitus COPD (chronic obstructive pulmonary disease) Surgical History S/P laparoscopic cholecystectomy (07/14/21) Family History Family History Mother Diabetes Social History Social History Household Members: Unknown / Unable to assess Household Members Other:: cousin Housing: Unknown / Unable to assess Do you presently have visiting nurse or other home services: No Unable to assess alcohol history related to: Unknown Alcohol intake: never Patient Tobacco Use Status: Former Tobacco user Tobacco use type: Cigarette Years Smoked: 20 Advance Directives: Yes Advance Directives on File: Yes Advance Directives Date on File: 02/22/22 service: No Current occupational status: unemployed and disabled Physical Exam ED Exam Exam: General: Appears in no acute distress, appears well nourished body habitus is morbidly obese, appears younger than stated age. No septic or ill-appearing. Vitals reviewed normal, PMH/Social and Surgical hx reviewed including allergies and current medications. - reviewed for prior visits here and red as it pertains to pertinent history. Head: Normocephalic, no obvious trauma or skin lesions noted. Eyes: EOMI ENMT: moist oral mucosa Neck: trachea midline Cardiovascular: peripheral perfusion normal- bilateral toes and fingertips are cold to the touch but equal and symmetric with sensation intact in cap refill 3 seconds nontender, moving all extremities without difficulty manager med surg strength is 4/5 bilaterally, no bony tenderness, Regular heart rate, regular rhythm Respiratory: no respiratory distress, decreased breath sounds lower lobes however secondary to body habitus suspected, on 2 L nasal cannula saturating 100% Abdomen: nondistended, obese nontender Extremities: warm and moving without difficulty unless otherwise detailed in physical exam if applicable. Psych: Cooperative Neuro: Alert and oriented. Vital Signs: Vital Signs - 24 hr 05/08/25 09:59 05/08/25 14:00 Temperature 98.8 F 97.9 F Pulse Rate 76 73 Respiratory Rate 18 18 Blood Pressure 129/49 L 132/77 Pulse Oximetry 99 99 Oxygen Delivery Method Nasal Cannula Nasal Cannula Oxygen Flow Rate 2 BMI result Body Mass Index 44.3 Medications Administered Discontinued Medications Generic Name Dose Route Start Last Admin Trade Name Freq PRN Reason Stop Dose Admin Ceftriaxone Sodium 1 gm 05/08/25 14:45 05/08/25 15:46 Ceftriaxone Sodium 1 Gm Vial IVPUSH Not Given Q12H TIMOTHY Ceftriaxone Sodium 1 gm 05/08/25 14:49 05/08/25 15:37 Ceftriaxone Sodium 1 Gm Vial IVPUSH 05/08/25 14:50 1 gm ONCE ONE Administration Medical Decision Making Medical Decision Making MDM Narrative: Well-appearing 80-year-old female with complex medical history presenting to the emergency department today complaining of generalized body aches and cold intolerance. Upon arrival to ED she is afebrile and well-appearing. Should brought in via ambulance with chief complaint deferring from personnel to myself. Utilizing a formal in-person boiler assistant operator was able to obtain the history and physical as above. Her presentation does not seem to be cardiac related however from triage cardiac labs were initiated. I considered doing a VBG however as she is not complaining of any shortness of breath or chest pain to me this was then deferred. She is denying any infectious symptoms and does not feel that her breathing status is any different other than her baseline. There is a concern for potential failure to thrive as she is reporting a decrease in appetite over the past month with early satiety. We will update plan based on her labs and but if no concerning findings do anticipate doing a PT/ CM consult. EK bpm normal sinus rhythm with occasional PVCs otherwise no changes when compared to the EKG on 02/08/2025 (PVCs new). Patient denies SOB and palpitations even with ambulation. CXR: Left basilar atelectasis vs pna. Patient denies any coughing or shortness of breath me this is more felt to be due to atelectasis. Labs: No leukocytosis. Microcytic anemia noted however borderline at baseline transfusion not indicated but could certainly be contributing to her generalized cold intolerance in extremities. No ALEXIA. Creatine clearance 120. COVID and FLU negative. Initial troponin is 6, will trend 2nd in three hours. BNP slightly elevated at 228, last one in January was 116. SHe does not appear to be fluid overloaded on exam no edema and no pulmonary effusion on CXR. On further chart exploration patient has lasted minutes was here in January for 1 day of generalized weakness for which is similar to today found to have UTI for this reason I will also now screen her UA for potential infection with atypical presentation. UA is significant for leukocytosis with 1+ bacteria. As her last urine on 03/06/25 was mixed likely contaminated. When she was admitted here on 02/08/25 it grew Kleb pna. She was treated with ceph. Based on these culture results will treat patient with keflex. First dose to be given IV. Will do PT/CM consult. CK normal, no rhabdo. No cp but as was initiated from triage and first was 6.6, protocol to trend second at 3 hour michael In discussing this plan with the patient she already has a walker at home that she feels safe to use in his not interested in going to a short-term rehab as it did not help her before in the past she is requesting to go home. This was discussed utilizing a formal in-person boiler assistant operator as well who demonstrated patient's wishes and understanding of this plan moving forward. Patient demonstrated verbal understanding of this and agreed she believes she is stable and not septic she will be sent home with return precautions. Differential Diagnosis Differential Diagnoses: The differential diagnosis associated with the presentation includes FTT CHF exacerbation anemia UTI rhabdo Admission/Observation Consideration of admission/observation: Escalation of care including admission/observation considered Patient would have been admitted to the hospital had her work up had any findings where hospital admission was appropriate and her clinical presentation warranted hospital admission. Consult Healthcare Provider Patient declined PT evaluation Lab Data MDM Lab Attestation statement: I reviewed the patient's lab results. 05/08/25 10:15 05/08/25 10:15 Labs: Lab Results 05/08/25 05/08/25 05/08/25 Range/Units 10:15 14:00 15:07 WBC 6.1 (4.8-10.8) X10*3/uL RBC 3.35 L (4.20-5.50) X10*6/uL Hgb 10.2 L (12.0-16.0) g/dl Hct 33.7 L (37.0-47.0) % MCV 100.6 H (80.0-98.0) fL MCH 30.4 (27.0-33.0) pg MCHC 30.3 L (31.0-35.0) g/dl RDW 11.9 (11.0-16.0) % Plt Count 147 L (160-400) X10*3/uL MPV 10.1 (9.4-12.3) fL Immature Gran % (Auto) 0.3 (0.0-0.4) % Neut % (Auto) 66.8 (45-73) % Lymph % (Auto) 23.6 (20-40) % [place] % (Auto) 7.1 (2-11) % Eos % (Auto) 2.0 (0-4) % Baso % (Auto) 0.2 (0-2) % Lymph # (Auto) 1.4 (1.2-4.9) X10*3/uL [place] # (Auto) 0.4 (0.1-1.2) X10*3/uL Eos # (Auto) 0.1 (0.0-0.4) X10*3/uL Baso # (Auto) 0.0 (0.0-0.2) X10*3/uL Abs Immat Gran (auto) 0.02 (0.00-0.03) X10*3/uL Absolute Neuts (auto) 4.1 (2.0-8.3) x10*3/uL Absolute Nucleated RBC 0.000 (0.0-0.012) X10*3/uL Nucleated RBC % (auto) 0.0 (0.0-0.2) /100WBC Sodium 141 (135-145) mmol/L Potassium 4.0 (3.3-5.1) mmol/L Chloride 97 (96-108) mmol/L Carbon Dioxide 38 H (22-29) mmol/L Anion Gap 10 L (12-20) BUN 11 (9-16) mg/dL Creatinine 0.57 (0.5-1.4) mg/dL Estim Creat Clear Calc 97.0 Estimated GFR > 60 Random Glucose 163 H (60-115) mg/dL Calcium 8.9 (8.4-10.2) mg/dL Total Bilirubin 0.2 (0.0-1.0) mg/dL AST 15 (5-31) U/L ALT 11 (0-31) U/L Alkaline Phosphatase 49 (39-117) U/L Total Creatine Kinase 28 (26-140) U/L Troponin I High Sens 6.6 6.4 (<3.5-17.0) ng/L B-Natriuretic Peptide 228 H (<100) pg/mL Total Protein 6.9 (6.5-8.0) g/dL Albumin 3.9 (3.5-5.0) g/dL Urine Color Yellow Urine Appearance Clear Urine pH 5.5 (5.0-9.0) Ur Specific [place] <= 1.005 (1.005-1.025) Urine Protein Negative (Neg-Trace) mg/dL Urine Glucose (UA) Negative (Negative) mg/dL Urine Ketones Negative (Negative) mg/dL Urine Blood Negative (Negative) Urine Nitrite Negative (Negative) Ur Leukocyte Esterase Large (3+) H (Negative) Urine RBC 0-2 (0-2) /HPF Urine WBC 11-20 (0-5) /HPF Ur Squamous Epith Cells 0-2 (0-2) /HPF Urine Bacteria 1+ (None Seen) Hyaline Casts 0-2 (0-2) /LPF COVID-19 (VALERIA) Negative (Negative) COVID-19 Clin Com See Note Influenza Type A (MEG) Negative (Negative) Influenza Type B (MEG) Negative (Negative) Influenza A & B Note See Note Independent Interpretation I performed an independent interpretation of an: EKG and Plain X-Ray Interpretation: No pneumonia and no pleural effusion not fluid overloaded no cardiomegaly Radiology Impression Discussion of test interpretation with radiology: I have reviewed the radiologist's reading. Independent Historian Clinical information obtained from an independent historian. History obtained from or confirmed by: Other (cousin) External Record Review External record reviewed: Inpatient record Tests considered The following testing was considered but not selected: WOuld have considered CTA of chest had there been concerns for PE. Prescription Management I considered prescription management with: Antibiotic Chronic Conditions Patient?s care impacted by: Diabetes and Other (CHF, COPD, chronic respiratory failure) Social Determinants Patient?s care significantly limited by Social Determinants of Health including: Other Social Determinant of Health Discharge Plan Discharge Clinical Impression: Acute cystitis without hematuria, Anemia, Muscle weakness (generalized) Patient Disposition: Home, Self-Care Instructions: Urinary Tract Infection in Women (DC), Anemia (ED) Additional Instructions: You were seen in the emergency department today due to generalized weakness. You had thorough workup that does not show any only your having positive blood cultures a COPD or heart failure exacerbation or he desires any infectious or cardiac symptoms. You were found to have a urinary tract infection or just similar to how it she was then treated here but it is all over generalized weakness. You have declined a from a physical therapy consult. He had stated you feel safe to go home as you already have a walker to use at baseline. You were given your 1st dose of medication for treatment of UTIs via IV here. Please begin home antibiotic treatment of this starting tomorrow morning. If you develop any fever worsening symptoms please return immediately to the emergency department. Otherwise I hope you feel better soon. Keep follow up with your primary care provider and specialists for continued management of your chronic medical conditions. Prescriptions: New cephalexin 500 mg capsule 500 mg PO QID Qty: 28 0RF No Action nitrofurantoin monohyd/m-cryst [Macrobid] 100 mg capsule 100 mg PO BID 7 Days Qty: 14 0RF Rx Instructions: must administer with a meal/food Janumet XR 50-1,000 mg tablet, ER multiphase 24 hr 1 tab PO DAILY insulin lispro [Humalog KwikPen Insulin] 100 unit/mL insulin pen 5 unit subcut BIDWM ketotifen fumarate 0.025 % (0.035 %) drops 1 drp ophthalmic (eye) Q12H PRN (Reason: Allergy Symptoms) carvedilol 12.5 mg tablet 12.5 mg PO BIDWM Protocol: Hold for SBP/HR < HOLD for SBP < : 90 HOLD for HR < : 60 cefuroxime axetil 500 mg tablet 500 mg PO BID Qty: 10 0RF pravastatin 40 mg tablet 40 mg PO BEDTIME ergocalciferol (vitamin D2) 1,250 mcg (50,000 unit) capsule 1,250 mcg PO MO albuterol sulfate 90 mcg/actuation HFA aerosol inhaler 2 puff inhalation Q4H PRN (Reason: Wheezing) famotidine 20 mg tablet 20 mg PO BID insulin glargine [Lantus U-100 Insulin] 100 unit/mL Solution 20 unit subcut BEDTIME Qty: 10 0RF pantoprazole 20 mg tablet,delayed release (DR/EC) 20 mg PO DAILY@0630 albuterol sulfate 2.5 mg /3 mL (0.083 %) solution for nebulization 2.5 mg inhalation Q6H PRN (Reason: Shortness Of Breath Or Wheezing) hydrocortisone 1 % cream 1 appl topical BID PRN (Reason: rash) Qty: 28.35 0RF Zyrtec 10 mg capsule 10 mg PO DAILY PRN (Reason: allergy symptoms) Qty: 14 0RF (DME) lancets [TRUEplus Lancets] 33 gauge misc See Rx Instructions topical .MEDSUPPLY Qty: 100 Rx Instructions: As directed furosemide 40 mg tablet 40 mg PO DAILY ondansetron 4 mg tablet,disintegrating 4 - 8 mg PO Q8H PRN (Reason: Nausea And Vomiting) losartan 50 mg tablet 50 mg PO BID Qty: 120 4RF cetirizine 10 mg tablet 10 mg PO DAILY PRN (Reason: allergies) azithromycin 250 mg tablet 250 mg PO DAILY Rx Instructions: start on day 2 of therapy nitrofurantoin macrocrystal 100 mg capsule 100 mg PO BEDTIME Rx Instructions: must administer with a meal/food spironolactone 25 mg tablet 25 mg PO DAILY amlodipine 2.5 mg tablet 2.5 mg PO DAILY Qty: 30 5RF Rx Instructions: add to pill pack Referrals: Physician,Cleopatra J [Primary Care Provider, Medical] Referral Note: PCP for emergency room follow up Print Language: Tajik
[2025-05-08 10:40] LABS: Alanine Aminotransferase 11 U/L (0-31); Albumin Level 3.9 g/dL (3.5-5.0); Alkaline Phosphatase 49 U/L (39-117); Aspartate Amino Transferase 15 U/L (5-31); Blood Urea Nitrogen 11 mg/dL (9-16); Calcium 8.9 mg/dL (8.4-10.2); Creatinine Clr Calc Pharmacy 97.0; Estimated Glomerular Filt Rate > 60; Total Protein 6.9 g/dL (6.5-8.0)
[2025-05-08 10:42] LABS: Troponin-I High Sensitivity 6.6 ng/L (<3.5-17.0)
[2025-05-08 10:43] LABS: B Type Natriuretic Peptide 228 pg/mL (<100)
[2025-05-08 10:48] LABS: Anion Gap 10 (12-20); Carbon Dioxide 38 mmol/L (22-29); Chloride 97 mmol/L (96-108); Potassium 4.0 mmol/L (3.3-5.1); Sodium 141 mmol/L (135-145)
--- OUTSIDE RECORDS SUMMARY | 2025-05-08 10:48 | XMS_ITS | Encounter Summary ---
Author Organization [employer] Address [address] [facility] [address] [place] [address] Care Team Providers Care Strategic Procurement Manager Name Role Phone Carmine Patel MD Primary Care Provider [phone] Luke Gayle PharmD Unavailable Unavail able Bárbara Rader MD Primary Care Provide r Encounter Details Date Type Department Care Team ([facility] st Contact Info) Description 06/26/2024 Orders Only [facility] MED & PEDS [address] [place], [place] [phone] Carmine Patel MD [address] [place], [place] [phone] Burning sensation (Primary Dx) Social History Tobacco [...] Description 05/14/2025 11:30 AM EDT Office Visit [facility] MED[facility] [address] [place] [phone] Bárbara Rader MD [address] [place] [address] documented as of this encounter Goals Goal [...] documented as of this encounter Care Teams Strategic Procurement Manager Relationship Specialty Start Date End Date Carmine Patel MD [address] [place] [address] PCP - General Internal Medicine 11/16/15 07/15/24 Bárbara Rader MD [address] [place] [phone] PCP - General Internal Medicine 07/16/24 Luke Gayle, JarettD [address] [place] [phone] Pharmacist Internal Medicine 09/04/22 [facility] 07/10/24 11/19/24 [facility] 11/17/24 documented as of this encounter
--- OUTSIDE RECORDS SUMMARY | 2025-05-08 10:48 | XMS_ITS | Clinical Summary ---
Author Organization [facility] Address [address] [place] [id number] Phone Care Team Providers Care Auto Driver Name Role Phone Carmine Patel MD [...] every morning 04/04/2023 Active ergocalciferol 1.25 MG (55037 UT) capsule 50,000 Units 1 (one) time [...] patient's age to complete this topic Insurance [facility] ([id number]) ZUHAIR ROBLERO [id number] [facility] ([id number]) ZUHAIR ROBLERO [id number] Care Teams Auto Driver Relationship Specialty Start Date End Date Carmine Patel MD [address] [place] [address] [place] [address] PCP - General Internal Medicine 05/02/21
[2025-05-08 14:00] VITALS: BP 132/77; PULSE 73; RESP 18; TEMP 36.6; O2SAT 99
[2025-05-08 14:10] LABS: Appearance Urine Clear; Glucose Urine UA Negative (Negative); PH 5.5 (5.0-9.0); Specific Gravity - Urine <= 1.005 (1.005-1.025); UMIC TRIGGER UACC YES
[2025-05-08 14:23] LABS: UACC Culture Trigger YES
[2025-05-08 15:35] LABS: Troponin-I High Sensitivity 6.4 ng/L (<3.5-17.0)
[2025-05-08 16:09] VITALS: BP 160/92; PULSE 67; RESP 21; TEMP 36.1; O2SAT 100
== END 2025-05-08 17:39 | disposition home or self-care (01) ==
PROVIDERS: Physician Assistant Medical; Emergency Provider Emergency Medicine
DX: N30.90 Cystitis, unspecified without hematuria (principal); D64.9 Anemia, unspecified; R53.1 Weakness; J44.9 Chronic obstructive pulmonary disease, unspecified; I50.9 Heart failure, unspecified; J96.10 Chronic respiratory failure, unspecified whether with hypoxia or hypercapnia; Z99.81 Dependence on supplemental oxygen; Z79.899 Other long term (current) drug therapy
CPT/HCPCS: 36415; 71046; 80053; 81001; 82550; 83880; 84484; 85025; 87086; 87088; 87186; 87502; 87635; 93005; 96374; 99284; J0696

== ENCOUNTER → 2025-05-08 10:00 | Outpatient (BNV) | payer OTHER, SELFPAY | PROVIDERS: Emergency Provider Emergency Medicine; Visit Provider Radiology Diagnostic Radiology | DX: R06.02 Shortness of breath (principal); I51.7 Cardiomegaly | CPT/HCPCS: 71046 ==

== ENCOUNTER → 2025-05-08 10:00 | Outpatient (BNV) | payer OTHER, SELFPAY | PROVIDERS: Emergency Provider Emergency Medicine; Visit Provider Internal Medicine Cardiovascular Disease | DX: I49.3 Ventricular premature depolarization (principal) | CPT/HCPCS: 93010 ==

== ENCOUNTER 2025-05-14 12:06 | Outpatient (REF) | payer OTHER, SELFPAY ==
--- OUTSIDE RECORDS SUMMARY | 2025-05-14 11:30 | XMS_ITS | Encounter Summary ---
Author Organization [employer] Address [address] [facility] [place] [address] Care Team Providers Care Web Site Project Manager Name Role Phone Luke Gayle PharmD Unavailable Unavail able Bárbara Rader MD Primary Care Provide r Reason for Referral * Medications - Closed Specialty Diagnoses / Procedures Referred By Alden andres Referred To Contact Diagnoses Type 2 diabetes mellitus with other specified complication, without long-term current use of insulin ([facility]) Bárbara Rader MD [address] [place] [address] Phone: tel: fax: Referral ID Status Reason Start Date Expiration Date Visits Re quested Visits Authorized [id number] Closed 1 1 * Consultation (Routine) - Pending Review Specialty Diagnoses / Procedures Referred By Alden andres Referred To Contact Orthopaedic Surgery Diagnoses Chronic pain of right ankle Bárbara Rader MD [address] [place] [address] Phone: tel: fax: Referral ID Status Reason Start Date Expiration Date Visits Requested Visits Authorized [id number] Pending Review Specialty Services Required 05/14/2025 05/14/2026 1 1 Scheduling Instructions [place] [facility] would like to follow up with them again thank you Encounter Details Date Type Department Care Team (Late st Contact Info) Description 05/14/2025 11:30 AM EDT Office Visit [facility] [address] [facility] [place] [address] Bárbara Rader MD [address] [facility] [place] [address] Type 2 diabetes mellitus with other specified complication, without long-term current use of insulin (CMS/HCC); Chronic pain of right ankle Social History Tobacco Use Types Packs/Day Years Used Date Smoking Tobacco: Former Cigarettes Q uit: 1989 Passive Smoke Exposure: Past Smokeless Tobacco: Never Alcohol Use Standard Drinks/Week Comments Never 0 (1 standard drink = 0.6 oz pur e alcohol) Depression Answer Date Recorded Patient Health Questionnaire-9 Score 0 05/14/2025 Patient Health Questionnaire-9 Score 0 05/14/2025 Last PHQ-9: Questionnaire Data Not on file 0 05/14/2025 Housing Stability Answer Date Recorded What is your housing situation today? I have truman greene 02/20/[address] you li ve. Do you have problems with any of the following? Pests such as bugs, ants, or mice 02/20/2025 Food Insecurity Answer Date Recorded Within the [...] Date Recorded Patient Health Questionnaire-2 Score 0 05/14/2025 Internet Access Answer Date Recorded Internet Access Q1 Yes 07/09/2024 Internet Access Q2 Not on file 07/09/2024 Comments No Sex and Gender Information Value Date Recorded Sex Assigned at Female 07/17/2022 10:21 AM EDT Legal Sex Female 10:21 AM EDT Gender Identity Female 07/17/2022 10:21 AM EDT Sexual Orientation Straight 05/13/2025 3: 34 PM EDT documented as of this encounter Last Filed Vital Signs Vital Sign Reading Time Taken Comments Blood Pressure 124/70 05/14/2025 11:42 AM EDT Pulse 67 05/14/2025 11:42 AM EDT Temperature 36.9 C (98.4 F) 05/14/2025 11:42 AM EDT Respiratory Rate 19 05/14/2025 11:42 AM EDT Oxygen Saturation 93% 05/14/2025 11:42 AM EDT Inhaled Oxygen Concentration - - Weight 109 kg (240 lb) 05/14/2025 11:42 AM EDT Height 160 cm (5' 3 ) 05/14/2025 11:42 AM EDT Body Mass Index 42.51 05/14/2025 11:42 AM EDT documented in this encounter Functional Status * Over the past 2 weeks, how often have you been bothered by any of the following problems? Question Answer Date of Assessment Author Patient Health Questionnaire -2 Score 0 05/14/2025 11:46 AM EDT Lizeth Branch MA * Little interest or pleasure in doing things Answer Date of Assessment Author Not at all 05/14/2025 11:46 AM EDT Lizeth Branch MA * Feeling down, depressed, or hopeless Answer Date of Assessment Author Not at all 05/14/2025 11:46 AM EDT Lizeth Branch MA * Trouble falling or staying asleep, or sleeping too much Answer Date of Assessment Author Not at all 05/14/2025 11:46 AM EDT Lizeth Branch MA * Feeling tired or having little energy Answer Date of Assessment Author Not at all 05/14/2025 11:46 AM EDT Lizeth Branch MA * Poor appetite or overeating Answer Date of Assessment Author Not at all 05/14/2025 11:46 AM EDT Lizeth Branch MA * Feeling bad about yourself - or that you are a failure or have let yourself or your family down Answer Date of Assessment Author Not at all 05/14/2025 11:46 AM Lizeth William MA * Trouble concentrating on things, such as reading the newspaper or watching television Answer Date of Assessment Author Not at all 05/14/2025 11:46 AM Lizeth William MA * Moving or speaking so slowly that other people could have noticed? Or the opposite - being so fidgety or restless that you have been moving around a lot more than usual. Answer Date of Assessment Author Not at all 05/14/2025 11:46 AM Lizeth William MA * Thoughts that you would be better off or hurting yourself in some way Answer Date of Assessment Author Not at all 05/14/2025 11:46 AM Lizeth William MA * Patient Health Questionnaire-9 Score Answer Date of Assessment Author 0 05/14/2025 11:46 AM Lizeth William MA * Over the last 2 weeks, how often have you been bothered by any of the following problems? Question Answer Date of Assessment Author Feeling nervous, anxious, or on edge 0 05/14/2025 11:46 AM Lizeth William MA Not being able to stop or co ntrol worrying 0 05/14/2025 11:46 AM Lizeth William MA Worrying too much about diff erent things 0 05/14/2025 11:46 AM Lizeth William MA Trouble relaxing 0 05/14/2025 11:46 AM Lizeth William MA Being so restless that it is hard to sit still 0 05/14/2025 11:46 AM Lizeth William MA Becoming easily annoyed or irritable 0 05/14/2025 11:46 AM Lizeth William MA Feeling afraid as if somethi ng awful might happen 0 05/14/2025 11:46 AM Lizeth William MA KELLIE-7 Total Score 0 05/14/2025 11:46 AM Lizeth William MA documented as of this encounter Plan of Treatment Upcoming Encounters Date Type Department Care Team (Late st Contact Info) Description 08/11/2025 11:00 AM EST Office Visit [facility] [address] [place] [address] Bárbara Rader MD [address] [place] [address] Scheduled Orders Name Type Priority Associated Diagnoses Orde r Schedule Lipid Panel, Standard Lab Routine Type 2 diabetes mellitus with other specified complication, without long-term current use of insulin ([facility]) Expected: 05/14/2025 (Approximate), Expires: 05/14/2026 Albumin, Random Urine W/Creatinine Lab Routine Type 2 diabetes mellitus with other specified complication, without long-term current use of insulin (CMS/HCC) Expected: 05/14/2025 (Approximate), Expires: 05/14/2026 Comprehensive Metabolic Panel Lab Routine Type 2 diabetes mellitus with other specified complication, without long-term current use of insulin (CMS/HCC) Expected: 05/14/2025 (Approximate), Expires: 05/14/2026 Scheduled Referrals Name Type Priority Associated Diagnoses Order Schedule Referral to Orthopaedic Surgery Outpatient Referral Routine Chronic pain of right ankle Expected: 05/14/2025 (Approximate), Expires: 05/14/2026 documented as of this encounter Goals Goal Patient Goal Type Associated Problems Recent Progress Patient-Stated? Author Blood Pressure < 140/90 Blood Pressure 124/70( 025 11:42 AM EDT) No DellogLuke garrison, PharmD documented as of this encounter Procedures Procedure Name Priority Date/Time Associated Diagnosis Comments POCT GLYCATED HEMOGLOBIN, TOTAL Routine 05/14/2025 11:44 AM EDT Type 2 diabetes mellitus with other specified complication, without long-term current use of insulin ([facility]) POCT GLUCOSE Routine 05/14/2025 11:43 AM EDT Type 2 diabetes mellitus with other specified complication, without long-term current use of insulin ([facility]) documented in this encounter Results * (ABNORMAL) POCT HGB A1C (05/14/2025 11:44 AM EDT) Hemoglobin A1C 6.1(A) 4.0 - 5.7 % QC Media Lot # [id number] Lot# Expiration Date Blood 05/14/2025 11:4 4 AM EDT Bárbara Raymundo MD POINT OF CARE TEST EN TER/EDIT ORDERABLES Final Result * POCT Glucose (05/14/2025 11:43 AM EDT) Glucose Blood, POC 133 60 - 200 mg/dL QC Media Lot # [id number] Lot# Expiration Date Blood Capillary blood specimen / Unknown 05/14/2025 11:43 AM EDT Bárbara Raymundo MD POINT OF CARE TEST EN TER/EDIT ORDERABLES Final Result documented in this encounter Visit Diagnoses Diagnosis Type 2 diabetes mellitus with other specified complication, without long-term current use of insulin ([facility]) Chronic pain of right ankle documented in this encounter Additional Health Concerns Assessment Noted Time PHQ-9 Depression Total Score: 0 05/14/20 11:46 AM EDT documented as of this encounter Care Teams Web Site Project Manager Relationship Specialty Start Date End Date Bárbara Rader MD [address] [place] [address] PCP - General Internal Medicine 07/16/24 Luke Gayle PharmD Pharmacist Internal Medicine 09/04/22 [facility] 11/17/24 documented as of this encounter
--- OUTSIDE RECORDS SUMMARY | 2025-05-14 13:06 | XMS_ITS | Encounter Summary ---
Author Organization [employer] Address [address] [place] [address] Care Team Providers Care Collections Professional Name Role Phone Luke Gayle PharmD Unavailable Unavail able Bárbara Rader MD Primary Care Provide r Reason for Visit * Reason Onset Date Comments Durable Medical Equipment 09/03/2024 Encounter Details Date Type Department Care Team ([facility] st Contact Info) Description 09/03/2024 Telephone [facility] [address] [place] [address] Bárbara Rader MD [address] [place], [place] [phone] Durable Medical Equipment Social History Tobacco Use [...] PM EDT documented as of this encounter Miscellaneous Notes * Telephone Encounter - Venecia Lin - 09/03/2024 1:40 PM EST Tc from [facility] requesting a large commode. States the one pt has is to small. Anyfurther questions may contact phone # [phone]. documented in this encounter Plan of Treatment Upcoming Encounters Date Type Department Care Team (Late st Contact Info) Description 08/11/2025 11:00 AM EST Office Visit [facility] [address] [place] [address] Bárbara Rader MD [address] [place] [address] documented as of this encounter Goals Goal [...] documented as of this encounter Care Teams Collections Professional Relationship Specialty Start Date End Date Bárbara Rader MD [address] [place] [address] PCP - General Internal Medicine 07/16/24 Luke Gayle PharmD Pharmacist Internal Medicine 09/04/22 [facility] 07/10/24 11/19/24 [facility] 11/17/24 documented as of this encounter
--- OUTSIDE RECORDS SUMMARY | 2025-05-14 13:06 | XMS_ITS | Encounter Summary ---
Author Organization [employer] Address [address] [facility] [address] [place] [address] Care Team Providers Care In Home Caregiver Name Role Phone Carmine Patel MD Primary Care Provider [phone] Luke Gayle PharmD Unavailable Unavail able Bárbara Rader MD Primary Care Provide r Encounter Details Date Type Department Care Team (Late st Contact Info) Description 02/14/2024 Orders Only [facility] [address] [place], [place] [phone] Carmine Patel MD [address] [place], [place] [phone] Type 2 diabetes mellitus with other specified complication, without long-term current use of insulin ([facility]) (Primary Dx) [...] your housing situation today? I have truman sing 07/02/[address] you li [...] PM EDT documented as of this encounter Plan of Treatment Upcoming Encounters Date Type Department Care Team (Late st Contact Info) Description 08/11/2025 11:00 AM EST Office Visit [facility] [address] [place] [address] Bárbara Rader MD [address] [place] [address] documented as of this encounter Goals Goal Patient Goal Type Associated Problems Recent Progress Patient-Stated? Author Blood Pressure < 140/90 Blood Pressure 124/70( 025 11:42 AM EDT) No Luke Gayle, PharmD documented [...] AM EDT Narrative 03/31/2024 9:51 AM EDT [address] [address] XRay Report Signed Patient: Magalie Solis MR#: [id number] : 1945 Acct:[id number] Age/Sex: 78 / F ADM Date: 03/13/24 Loc: HO.XRAY Attending Dr: Ofelia Ly NP Ordering Physician: Saleem Young PA-C Date of Service: 03/13/24 Procedure(s): XR ankle RT min 3V Accession Number(s): [id number] cc: Carmine Patel MD; Saleem Young PA-C [...] callus formation. This study [place] to [place] March [place], 2024 for interpretation. [facility] staff will provide results to referring provider at this time. Dictated By: Tierra Worthy MD Signed By: <Electronically signed by Tierra Worthy MD in OV> 03/31/2449 DD/ TD/TT: Lockstitcher: Procedure Note Donotuseinterpreter, Image - 03/31/[address] [address] XRay Report Signed Patient: Magalie Solis MMR#: [id number] : 6Acct:[id number] Age/Sex: 78 / FADM Date: 03/13/24 Loc: HO.XRAY Attending Dr: Ofelia Ly NP Ordering Physician: Saleem Young PA-C Date of Service: 03/13/24 Procedure(s): XR ankle RT min 3V Accession Number(s): [id number] cc: Carmine Patel MD; Saleem Young PA-C [...] callus formation. This study was presented to [place] March [place], 2024 for interpretation. [facility] staff will provide results to referring provider at this time. Dictated By: Tierra Worthy MD Signed By: <Electronically signed by Tierra Worthy MD in OV> 03/31/2449 DD/ TD/TT: Lockstitcher: [facility] External Provider IMG XR PROCEDURES Final Result * BI Mammogram Additional Views Right (03/12/2024 2:15 PM EDT) Anatomical Region Laterality Modality Breast Right Mammography 03/12/2024 2:15 PM EDT Narrative 03/12/2024 3:08 PM EDT [address] [place] [address] Mammography Report Signed Patient: Magalie Live MR#: [id number] 8 : 1945 Acct:[id number] Age/Sex: 78 / F ADM Date: 03/12/24 Loc: J[facility]I Attending Dr: Carmine Patel MD Ordering Physician: Carmine Patel MD Results: 2 Benign Findings Date of Service: 03/12/24 Follow Up: 1 Year From Orig ina Mammogram Procedure(s): MM added views RT Accession Number(s): [id number] cc: Carmine Patel MD EXAMINATION: MM DIAGNOSTIC [...] in OV> 03/12/24 1504 DD/ 1415 TD/TT: Lockstitcher: Procedure Note Donotuseinterpreter, Image - 03/12/2024 [facility] [address] [place] [address] Mammography Report Signed Patient: Magalie Live MMR#: [id number] 8 : 1945cct:[id number] Age/Sex: 78 / FADM Date: 03/12/24 Loc: HO.MAMMO Attending Dr: Carmine Patel MD Ordering Physician: Carmine Patel MDResults: 2 Benign Findings Date of Service: 03/12/24Follow Up: 1 Year From Orig inal Mammogram Procedure(s): MM added views RT Accession Number(s): [id number] cc: Carmine Patel MD EXAMINATION: MM DIAGNOSTIC [...] in OV> 03/12/24 1504 DD/ 1415 TD/TT: Lockstitcher: Carmine Patel MD IMG BI PROCEDURES Final Res ult documented in this encounter Visit Diagnoses Diagnosis Type 2 diabetes mellitus with other specified complication, without long-term current use of insulin (CMS/HCC)- Primary documented in this encounter Additional Health Concerns Assessment Noted Time PHQ-9 Depression Total Score: 0 10/09/19 23 11:12 AM EST documented as of this encounter Care Teams In Home Caregiver Relationship Specialty Start Date End Date Carmine Patel MD [address] [place] [address] PCP - General Internal Medicine 11/16/15 07/15/24 Bárbara Rader MD [address] [place] [address] PCP - General Internal Medicine 07/16/24 Luke Gayle PharmD [address] [place] [address] Pharmacist Internal Medicine 09/04/22 [facility] 07/10/24 11/19/24 [facility] 11/17/24 documented as of this encounter
--- OUTSIDE RECORDS SUMMARY | 2025-05-14 13:06 | XMS_ITS | Clinical Summary ---
Author Organization [employer] Address [address] [facility] [address] [place] [address] Care Team Providers Care Turf Sales Person Name Role Phone Luke Gayle PharmD Unavailable [...] NEEDED 8.5 g 2 09/04/20 23 Active losartan (Cozaar) 50 MG tablet Take 1 tablet (50 mg) by mouth Once per day. 30 tablet 11 01/07/20 24 Active insulin lispro (HumaLOG) 100 UNIT/ML injectionIndicati ons:Type 2 diabetes mellitus with other specified complication, without long-term current use of insulin (CMS/HCC) Inject 5 Units under the skin with breakfast, with lunch, and with evening meal. Inject 5 units under the skin three times a day with meals and at bedtime 10 mL 11 02/14/20 24 Active Continuous Glucose Earthmoving Plant Operator (FreeStyle Silvana 2 Chamberlain) deviceIndications :Type 2 diabetes mellitus with other specified complication, without long-term current use of insulin (CMS/HCC) Scan sensor every 8 hours 1 each 02/27/20 24 Active Continuous Glucose Sensor (FreeStyle Silvana 2 Sensor) miscIndications:T ype 2 diabetes mellitus with other specified complication, without long-term current use of insulin ([facility]) Apply 1 sensor every 14 days 2 each 11 02/27/20 24 Active Blood Glucose Monitoring Suppl (FreeStyle [place] Lite) w/Device kitIndications:Ty pe 2 diabetes mellitus with other specified complication, without long-term current use of insulin ([facility]) Use to test blood sugar 2 times daily 1 kit 02/27/20 24 Active ergocalciferol (Vitamin D2) 1.25 MG (82754 UT) capsule TAKE ONE CAPSULE EVERY WEEK 12 capsule 5 04/17/20 24 Active insulin glargine (Lantus SoloStar) 100 UNIT/ML penIndications:Ty pe 2 diabetes mellitus with other specified complication, without long-term current use of insulin ([facility]) Inject 20 Units under the skin at bedtime. 3 mL 3 05/09/20 24 Active loratadine (Claritin) 10 MG tabletIndications :Pruritus Take 1 tablet (10 mg) by mouth Once per day. 30 tablet 06/11/20 24 Active Easy Touch Lancets 33G/Twist miscIndications:T ype 2 diabetes mellitus with other specified complication, without long-term current use of insulin ([facility]) TEST BLOOD SUGAR TWICE DAILY 100 each [...] daily 100 strip 11 10/02/19 25 Active famotidine (Pepcid) 20 MG tabletIndications :Epigastric pain Take 1 tablet (20 mg) by mouth 2 times daily. 60 tablet 11 11/05/19 25 2025 Active pravastatin (Pravachol) 40 MG tabletIndications :Other hyperlipidemia Take 1 tablet (40 mg) by mouth at bedtime. 90 tablet 3 12/16/19 25 Active furosemide (Lasix) 40 MG tabletIndications :Stage 3a chronic kidney disease ([facility]) Take 1 tablet (40 mg) by mouth in the morning. 90 tablet 1 12/16/19 25 Active hydrocortisone 1 % creamIndications: Dermatitis, seborrheic Apply topically 2 times daily. 28 g 02/08/20 Active TRUEplus Lancets 33G misc TEST BLOOD SUGAR TWICE DAILY 100 each 2 02/26/20 Active metFORMIN, OSM, (Fortamet) 1000 MG 24 hr tabletIndications :Type 2 diabetes mellitus with other specified complication, without long-term current use of insulin (CMS/HCC) Take 1 tablet (1,000 mg) by mouth with evening meal. Do not crush, chew, or split. 30 tablet 03/02/20 25 2025 Active BD Pen Needle Gracy Ultrafine 32G X 4 MM misc USE DIRECTED FOUR TIMES DAILY DIRECTED 300 each 03/23/20 Active carvedilol (Coreg) 12.5 MG tablet TAKE 1 TABLET BY MOUTH TWICE DAILY IN THE MORNING AND IN THE EVENING WITH MEALS 60 tablet 05/01/20 Active pantoprazole (ProtoNix) 20 MG EC tablet TAKE 1 TABLET BY MOUTH EVERY MORNING BEFORE BREAKFAST DO NOT BREAK, CRUSH, DISSOLVE OR CHEW 30 tablet 05/01/20 Active Tirzepatide (Mounjaro) 2.5 MG/0.5ML solution auto-injectorIndi cations:Type 2 diabetes mellitus with other specified complication, without long-term current use of insulin (CMS/HCC) Inject 2.5 mg under the skin 1 (one) time per week. 2 mL 05/14/20 Active carvedilol (Coreg) 12.5 MG tablet TAKE 1 TABLET BY MOUTH TWICE DAILY IN THE MORNING AND IN THE EVENING WITH MEALS 60 tablet 01/08/20 25 2024 Discontinued pantoprazole (ProtoNix) 20 MG EC tablet TAKE 1 TABLET BY MOUTH EVERY MORNING BEFORE BREAKFAST DO NOT BREAK, CRUSH, DISSOLVE OR CHEW 30 tablet 3 01/08/20 25 2024 Discontinued Tirzepatide-Weigh t Management (Zepbound) 2.5 MG/0.5ML solution auto-injectorIndi cations:Class 3 severe obesity due to excess calories with serious comorbidity and body mass index (BMI) of 45.0 to 49.9 in adult Inject 0.5 mL (2.5 mg) under the skin 1 (one) time per week. 2 mL 03/02/20 25 2024 Discontinued Active Problems Problem Noted Date Diagnosed Date Chronic pain of right ankle 05/14/2025 Primary osteoarthritis of right knee 03/02/2025 Assessment & Plan (03/02/2025 4:43 PM EDT): Continue physical therapy, today will prescribe for her knee brace I will prescribe for patient a bariatric commode Class 3 severe obesity due t o excess calories with serious comorbidity and body mass index (BMI) of 45.0 to 49.9 in adult 03/02/2025 Assessment & Plan (03/02/2025 4:40 PM EDT): Extensive counseling about healthy diet and exercise done, patient has been trying to be adherent to a healthy diet for a long time and do physical activity as tolerated I decided to prescribe for patient Zepbound 2.5 mg weekly, I cannot prescribe for this patient phentermine in light of her left ventricular diastolic dysfunction Plan is to follow-up with her in person in about 4 to 6 weeks to with her in office (patient is wheelchair-bound) Wheelchair dependence 03/02/2025 Assessment & Plan (03/02/2025 4:43 PM EDT): I will prescribe for patient bariatric commode Chronic respiratory failure with hypoxia and hyp [...] of left eye 07/16/2024 Urinary incontinence 01/18/2024 Assessment & Plan (03/02/2025 4:43 PM EDT): Patient already referred to urology I will print her appointment with her information she was instructed to call and set up an appointment as soon as possible Left hip pain 02/26/2023 Assessment & Plan (02/26/2023 5:19 PM EDT): With POS inocencio and severiano test upon examination with tenderness on SI joint and trochanteric prominence. Will benefit from further evaluation from ortho. Referral placed. Appointment with PCP scheduled for 03/08/23. Short course of percocet offered. Stage 3 chronic kidney disease 07/22/2021 Type 2 diabetes mellitus 07/16/2019 Assessment & Plan (03/02/2025 4:41 PM EDT): Diabetes is: controlled - Lab Results Component Value Date HGBA1C 5.8 03/02/2025 HGBA1C 6.5 (A) 11/25/2024 HGBA1C 7.0 (A) 06/03/2024 - Lab Results Component Value Date MICROALBUR 19.0 06/20/2024 CREATININE 0.71 02/08/2025 -Changes: Today I decided to put her on Zepbound so I discontinue metformin/Janumet and put her only on metformin extended release, continue with rest of interventions - Diabetic eye exam: Pending - Diabetic foot exam: Up-to-date - Continue lifestyle modifications - Follow up: 3 months Assessment & Plan (11/25/2024 11:13 AM EDT): [...] advised for her to go and pickling grader her medication at the pharmacy (new medication [...] Encounters Date Type Department Care Team Description 05/14/2025 11:30 AM EDT Office Visit [facility] [address] [place] [address] Bárbara Rader MD Type 2 diabetes mellitus with other specified complication, without long-term current use of insulin ([facility]); Chronic pain of right ankle 05/14/2025 Travel 05/13/2025 Telephone [facility] [address] [place] [address] Bárbara Rader MD chart prep 05/01/2025 Refill [facility] [address] [place] [address] Bárbara Rader MD 04/28/2025 9:20 AM EDT Office Visit [facility] [address] [place] [address] Abigail James, SULAIMAN 04/28/2025 Travel 04/27/2025 Travel 03/21/2025 Refill [facility] [address] [place] [address] Carmine Patel MD 03/06/2025 Orders Only GENERIC EXTERNAL DATA DEPARTMENT Provider, Generic External Data 03/02/2025 1:45 PM EDT Office Visit [facility] [address] [place] [address] Bárbara Rader MD Primary osteoarthritis of right knee (Primary Dx); Type 2 diabetes mellitus with other specified complication, without long-term current use of insulin ([facility]); Class 3 severe obesity due to excess calories with serious comorbidity and body mass index (BMI) of 45.0 to 49.9 in adult; Wheelchair dependence; Urinary incontinence, unspecified type 03/02/2025 Telephone [facility] [address] [place] [phone] Bárbara Rader MD Durable Medical Equipment 03/02/2025 Travel 02/24/2025 Refill [facility] [address] [place] [address] [phone] Carmine Patel MD 02/20/2025 Patient Outreach [address] [phone] Bárbara Rader MD Care Coordination (CHW outreach for SDOH housing search-referral completed ) 02/20/2025 Patient Outreach [address] [address] Bárbara Rader MD from Last 3 Months Immunizations Immunization Administration Dates Next Due Influenza High-dose Quadriva lent Preservative Free 06/18/2023,06/09/2022,07/07/2021 Influenza injectable quadriv alent IIV4 with preservative 07/27/2016 Influenza, High Dose Seasona l, Preservative Free 06/03/2024,07/16/2019,07/31/2018,06/06 Influenza, IIV3, injectable 07/27/2014, 3,07/05/2011 Influenza, Split (incl. efren fied surface antigen) 07/19/2012 Influenza, intradermal, quad rivalent, preservative free 05/15/2016 Influenza, seasonal, injecta ble, preservative free 05/28/2020 Novel [id number], all formulations 05/15/2016 Pneumococcal Conjugate PCV 13 [...] 10:21 AM EDT Sexual Orientation Straight 05/13/2025 3 :34 PM EDT Last Filed Vital Signs Vital Sign [...] Mass Index 42.51 05/14/2025 11:42 AM EDT Plan of Treatment Upcoming Encounters Date Type Department Care Team (Late st Contact Info) Description 08/11/2025 11:00 AM EST Office Visit [facility] [address] [place] [address] Bárbara Rader MD [address] [place], [place] [phone] Health Maintenance Due Date Last Done Comments Hepatitis A Vaccines (1 of 2 - Risk 2-dose series) 1964 Hepatitis B Vaccines (1 of 3 - Risk 3-dose series) 2006 RSV Patients and Patients Aged 60 years or older (1 - 1-dose 75+ series) 2021 DTaP/Tdap/Td Vaccines (2 - Td or Tdap) 07/19/2022 07/19/2012 COVID-19 Vaccine ( season) 2024 07/31/2022, 02/09/2022, 08/31/2021, Additional history exists Eye Exam 08/22/2024 08/22/2023 Influenza Vaccine (#1) 2025 , 06/18/2023, 06/09/2022, Additional history exists Diabetes: Foot Exam 06/03/2025 06/03/2024 Diabetes: Urine Protein Screening 06/20/2025 06/20/2024, 08/17/2020 Lipid Panel 06/20/2025 06/20/2024, 08/17/2020 Diabetes: Hemoglobin A1C 11/14/2025 025, 03/02/2025, 11/25/2024, Additional history exists Alcohol/Substance Use Screening 11/25/2025 11/25/2024 SDOH Screening 02/20/2026 02/20/2025 Depression Screening 05/14/2026 05/14/2025, 05/14/20 Tobacco Screening 05/14/2026 05/14/2025 Pneumococcal Vaccine: 50+ Years Completed 05/03/2015, 07/27/2014, 03/01/2012 Zoster Vaccines Completed 01/17/2021, 09/18, 05/03/2015 Hepatitis C Screening Completed 06/20/2024 HIB Vaccines Aged Out No longer eligi ble based on patient's age to complete this topic HPV Vaccines Aged Out No longer eligi ble based on patient's age to complete this topic IPV Vaccines Aged Out No longer eligi ble based on patient's age to complete this topic Meningococcal B Vaccine Aged Out No l onger eligible based on patient's age to complete [...] 025 11:42 AM EDT) No Luke Gayle, Shan Procedures Procedure Name Priority Date/Time Associated Diagnosis Comments POCT GLYCATED HEMOGLOBIN, TOTAL Routine 05/14/2025 11:44 AM EDT Type 2 diabetes mellitus with other specified complication, without long-term current use of insulin ([facility]) POCT GLUCOSE Routine 05/14/2025 11:43 AM EDT Type 2 diabetes mellitus with other specified complication, without long-term current use of insulin ([facility]) BI MAMMOGRAM SCREENING TOMOSYNTHESIS BILATERAL Routine 03/24/2025 10:47 AM EDT URINALYSIS, COMPLETE Routine 03/06/2025 9:14 AM EDT CULTURE, URINE, ROUTINE Routine 03/06/2025 9:14 AM EDT POCT GLYCATED HEMOGLOBIN, TOTAL Routine 03/02/2025 1:15 PM EDT Type 2 diabetes mellitus with other specified complication, without long-term current use of insulin (CMS/HCC) POCT GLUCOSE Routine 03/02/2025 1:15 PM EDT Type 2 diabetes mellitus with [...] Maintenance Results * (ABNORMAL) POCT HGB A1C (05/14/2025 11:44 AM EDT) Only the most recent of2 resultswithin the time period is included. Pathologist [facility] Hemoglobin A1C 6.1(A) 4.0 - 5.7 % QC Media Lot # [id number] Lot# Expiration Date Blood 05/14/2025 11:4 4 AM EDT Bárbara Raymundo MD POINT OF CARE TEST EN TER/EDIT ORDERABLES Final Result * POCT Glucose (05/14/2025 11:43 AM EDT) Only the most recent of2 resultswithin the time period is included. Pathologist [facility] Glucose Blood, POC 133 60 - 200 mg/dL QC Media Lot # [id number] Lot# Expiration Date 038 Blood Capillary blood specimen / Unknown 05/14/2025 11:43 AM EDT us Bárbara Raymundo MD POINT OF CARE TEST EN TER/EDIT ORDERABLES Final Result * BI Mammogram Screening Tomosynthesis Bilateral (03/24/2025 10:47 AM EDT) Anatomical Region Laterality Modality Breast Bilateral Mammography 03/24/2025 10:4 7 AM EDT Narrative 04/06/2025 6:28 PM EDT [facility] [address] [place] [address] Mammography Report Signed Patient: Magalie Solis MR#: [id number] : 1945 Acct:[id number] Age/Sex: 79 / F ADM Date: 03/24/25 Loc: .MAMMO Attending Dr: Bárbara Raymundo MD Ordering Physician: Bárbara Rader MD Results: 1Negative Date of Service: 03/24/25 Follow Up: 1 Year From Orig [facility] Mammogram Procedure(s): MM tomosynthesis screening BI Accession Number(s): [id number] cc: Bárbara Rader MD EXAMINATION: MM SCREENING DIGITAL BREAST TOMOSYNTHESIS, BILATERAL CLINICAL INFORMATION: Screening. Asymptomatic. COMPARISON: Comparison made to multiple prior, most recent right diagnostic mammogram on March 12, 2024, and most remote April 08, 2015. TECHNIQUE: Digital breast tomosynthesis is performed in both the craniocaudal and mediolateral oblique views along with computer-aided detection (CAD). Synthesized 2D images are generated from the tomosynthesis. Best possible images according to technologist's notes (patient on a wheelchair and images obtained with 2 technologists in the room). FINDINGS: BREAST COMPOSITION: There are scattered areas of fibroglandular density (ACR BI-RADS breast composition Category b). BILATERAL BREASTS: No significant masses, suspicious calcifications or other abnormalities are seen in either breast. MM/MM tomosynthesis screening BI IMPRESSION: BILATERAL BREASTS: Negative, no mammographic evidence of malignancy. Normal interval follow-up is recommended in 12 months. ASSESSMENT: BI-RADS 1 - Negative RECOMMENDATION: Routine annual mammography screening. FOLLOW-UP: 1 year F/U This examination should not preclude the clinical evaluation of a suspicious palpable abnormality. This patient's information was entered into a reminder system with a target due date for their next mammogram. Electronically signed by: Ulysses Nicholson MD 04/06/2025 06:25 PM EDT RP Workstation: [employer] Dictated By: Ulysses Nicholson MD Signed By: <Electronically signed by Ulysses Nicholson MD in OV> 04/06/25 1825 DD/ 1047 TD/TT: 03/24/25 1130 Green House Manager: Procedure Note Donotuseinterpreter, Image - 04/06/2025 [facility] [address] [place] [address] Mammography Report Signed Patient: Magalie Solis MMR#: [id number] : 1945cct:[id number] Age/Sex: 79 / FADM Date: 03/24/25 Loc: HO.MAMMO Attending Dr: Bárbara Raymundo MD Ordering Physician: Bárbara Rader MDResults: 1Negative Date of Service: 03/24/25Follow Up: 1 Year From Orig inal Mammogram Procedure(s): MM tomosynthesis screening BI Accession Number(s): [id number] cc: Bárbara Rader MD EXAMINATION: MM SCREENING DIGITAL BREAST TOMOSYNTHESIS, BILATERAL CLINICAL INFORMATION: Screening. Asymptomatic. COMPARISON: Comparison made to multiple prior, most recent right diagnostic mammogram on March 12, 2024, and most remote April 08, 2015. TECHNIQUE: Digital breast tomosynthesis is performed in both the craniocaudal and mediolateral oblique views along with computer-aided detection (CAD). Synthesized 2D images are generated from the tomosynthesis. Best possible images according to technologist's notes (patient on a wheelchair and images obtained with 2 technologists in the room). FINDINGS: BREAST COMPOSITION: There are scattered areas of fibroglandular density (ACR BI-RADS breast composition Category b). BILATERAL BREASTS: No significant masses, suspicious calcifications or other abnormalities are seen in either breast. MM/MM tomosynthesis screening BI IMPRESSION: BILATERAL BREASTS: Negative, no mammographic evidence of malignancy. Normal interval follow-up is recommended in 12 months. ASSESSMENT: BI-RADS 1 - Negative RECOMMENDATION: Routine annual mammography screening. FOLLOW-UP: 1 year F/U This examination should not preclude the clinical evaluation of a suspicious palpable abnormality. This patient's information was entered into a reminder system with a target due date for their next mammogram. Electronically signed by: Ulysses Nicholson MD 04/06/2025 06:25 PM EDT RP Workstation: [employer] Dictated By: Ulysses Nicholson MD Signed By: <Electronically signed by Ulysses Nicholson MD in OV> 04/06/25 1825 DD/ 1047 TD/TT: 03/24/25 1130 Green House Manager: Bárbara Raymundo MD IMG BI PROCEDURES Fin al Result * (ABNORMAL) Urinalysis Complete (03/06/2025 9:14 AM EDT) Color Urine Yellow [facility] Appearance Urine Clear [facility] PH 6.0 5.0 - 9.0 [facility] Glucose Urine UA Negative Negative mg/dL [facility] Urine Blood Negative Negative [facility] Specific [place] - Urine 1.010 1.005 - 1.025 [facility] Urine Protein Negative Neg-Trace mg/dL [facility] Urine Ketones Negative Negative mg/dL [facility] Nitrite Urine Negative Negative [facility] Leukocyte Esterase Urine Moderate (2+)(A) Negative [facility] RBC Urine 0-2 0 - 2 /HPF [facility] Urine WBC 21-50(A) 0 - 5 /HPF [facility] Urine Squamous Epithelial Cell 3-5 0 - 2 /HPF [facility] Urine Bacteria None Seen None Seen [facility] Hyaline Casts, Urine 0-2 0 - 2 /LPF [facility] 03/06/2025 9:14 AM EDT 03/06/2025 11:25 AM EDT Generic External Data Provider LAB URINE ORDERAB LES Final Result Performing Organization Address [facility] de Phone Number [facility] [address] [place] [phone] [phone] * Culture, Urine, Routine (03/06/2025 9:14 AM EDT) Urine Urine specimen obtained by clean catch procedure / Unknown 03/06/2025 9:14 AM EDT 03/06/2025 11:25 AM EDT Comment:UACC Narrative [facility] - 03/07/2025 11:21 AM EDT Urine Culture Report Result Urine Culture 10,000 to 50,000 cfu/ml Urine Culture Mixed bacterial stef characteristic of Urine Culture urogenital contamination. Specimen Source: Urine clean catch Generic External Data Provider LAB MICROBIOLOGY - GENERAL ORDERABLES Final Result Performing Organization Address [facility] de Phone Number [facility] [address] [place] [phone] * Hepatitis C Antibody with Reflex to HCV, RNA, Quantitative, Real-Time PCR (06/20/2024 2:54 PM EDT) Pathologist [facility] Hepatitis C Antibody Nonreactive Nonreactive [facility] Comment:Antibodies to HCV no t detected; does not exclude early acuteHCV infection. Blood Venous blood specimen / Unknown 06/20/2024 2:54 PM EDT 06/20/2024 2:54 PM EDT Carmine Patel MD LAB BLOOD ORDERABLES Final Result Performing Organization Address [facility] Co de Phone Number [facility] [address] [place] [phone] [phone] * Lipid Panel, Standard (06/20/2024 2:54 PM EDT) Triglycerides 81 <150 mg/dL [facility] Comment:Desirable Triglyceri de: less than 150 mg/dLBorderline High Triglyceride 150-199 mg/dLHigh Triglyceride: 200-499 mg/dLVery High Triglyceride: greater than or equal to 5OO mg/dL Cholesterol 152 <200 mg/dL [facility] Comment:Desirable Cholestero l: less than 200 mg/dLBorderline High Cholesterol: 200-239 mg/dLHigh Cholesterol: greater than 239 mg/dL LDL Cholesterol Calculated 86 <100 mg/dL [facility] Comment:Desirable LDL: less than 100 mg/dLNear Optimal/Above Optimal LDL: 110- 129 mg/dLBorderline High LDL: 130-159 mg/dLHigh LDL: 160-189 mg/dLVery High LDL: greater than or equal to 190 mg/dL HDL Cholesterol 50 >40 mg/dL [facility] Comment:Desirable HDL: great er than 40 mg/dL Note: This HDL assay may give artificially low results in patients with liver disease. Blood Venous blood specimen / Unknown 06/20/2024 2:54 PM EDT 06/20/2024 2:54 PM EDT us Carmien Patel MD LAB BLOOD ORDERABLES Final Result [facility] [address] [place] [phone] * (ABNORMAL) Albumin, Random Urine W/Creatinine (06/20/2024 1:00 PM EDT) Creatinine, Urine 35.87 mg/dL [facility] Microalbumin Urine 19.0 mg/L [facility] Microalbum Creatinine Ratio Ur 52.9(H) <30 ug/mg cr [facility] Comment:Albumin/Creatinine R atio Reference Ranges: Normal: < 30 ug/mg creatinine Microalbuminuria: 30 - 300 ug/mg creatinineClinical Albuminuria: > 300 ug/mg creatinine Urine (Urine, Random) 06/20/2024 1:00 PM EDT 06/20/2024 3:09 PM EDT us Carmine Patel MD LAB URINE ORDERABLES Final Result [facility] [address] [place] [phone] from Last 3 Months or Most Recently Relevant to Health Maintenance Insurance [facility] [employer] (O D-SNP) Care Teams Turf Sales Person Relationship Specialty Start Date End Date Bárbara Rader MD [address] [place] [phone] PCP - General Internal Medicine 07/16/24 Luke Gayle PharmD Pharmacist Internal Medicine 09/04/22 [facility] 11/17/24
--- OUTSIDE RECORDS SUMMARY | 2025-05-14 13:06 | XMS_ITS | Encounter Summary ---
Author Organization [employer] [facility] Address [address] [place] [address] 7 [place] [address] Care Team Providers Care Consumer Services Advisor Name Role Phone Carmine Patel MD Primary Care Provider +1- [phone] Luke Gayle PharmD Unavailable Unavail able Bárbara Rader MD Primary Care Provide r Encounter Details Date Type Department Care Team (Latest Contact Info) Description 06/26/2019 Abstract [facility] Dental, Provider, DDS Social History Tobacco [...] Upcoming Encounters Date Type Department Care Team ( st Contact Info) Description 08/11/2025 11:00 AM EST Office Visit [facility] [address] [place] [address] Bárbara Rader MD 230 [place] [address] documented as of this encounter Visit Diagnoses Not on filedocumented in this encounter Care Teams Consumer Services Advisor Relationship Specialty Start Date End Date Carmine Patel MD 505 [place] [address] PCP - General Internal Medicine 11/16/15 07/15/24 Bárbara Rader MD [address] [place] [address] PCP - General Internal Medicine 07/16/24 Luke Gayle, JarettD [address] [place] [address] Pharmacist Internal Medicine 09/04/22 [facility] 07/10/24 11/19/24 [facility] 11/17/24 documented as of this encounter
--- OUTSIDE RECORDS SUMMARY | 2025-05-14 13:06 | XMS_ITS | Encounter Summary ---
Author Organization [employer] Address 75 [facility] 7t [place] [address] Care Team Providers Care Frontload Driver Name Role Phone Carmine Patel MD Primary Care Provider +1- [phone] Luke Gayle PharmD Unavailable Unavail able Bárbara Rader MD Primary Care Provide r Reason for Visit * Reason Onset Date Comments FYI 05/07/2024 Encounter Details Date Type Department Care Team (Late st Contact Info) Description 05/07/2024 Telephone [facility] MEDICINE 230 [place] [address] Carmine Patel MD 505 [place] [address] FYI Social History Tobacco Use Types Packs/Day [...] any questions you can contact Terence at [phone]. documented in this encounter Plan of Treatment Upcoming Encounters Date Type Department Care Team (Late st Contact Info) Description 08/11/2025 11:00 AM EST Office Visit [facility] 230 [place] [address] Bárbara Rader MD 230 [place] [address] documented as of this encounter Goals Goal [...] documented as of this encounter Care Teams Frontload Driver Relationship Specialty Start Date End Date Carmine Patel MD 505 [place] [address] PCP - General Internal Medicine 11/16/15 07/15/24 Bárbara Rader MD [address] [place] [address] [phone] PCP - General Internal Medicine 07/16/24 Luke Gayle, PharmD 505 [place] [address] Pharmacist Internal Medicine 09/04/22 [facility] 07/10/24 11/19/24 [facility] 11/17/24 documented as of this encounter
--- OUTSIDE RECORDS SUMMARY | 2025-05-14 13:06 | XMS_ITS | Encounter Summary ---
Author Organization [employer] Address 75 [facility] 7t [place] [address] Care Team Providers Care Systems Protection Technician Name Role Phone Carmine Patel MD Primary Care Provider +1- [phone] Luke Gayle PharmD Unavailable Unavail able Bárbara Rader MD Primary Care Provide r Reason for Visit * Reason Onset Date Comments Call Back Request 02/06/2024 Encounter Details Date Type Department Care Team (Late st Contact Info) Description 02/06/2024 Telephone [facility] 230 [place] [address] Carmine Patel MD 505 [place] [address] Call Back Request Social History Tobacco Use [...] 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 Advised son on PCP recommendations for [...] and nothing is happening Please contact at [phone] documented in this encounter Plan of Treatment Upcoming Encounters Date Type Department Care Team (Late st Contact Info) Description 08/11/2025 11:00 AM EST Office Visit [facility] [address] [place] [address] Bárbara Rader MD 230 [place] [address] documented as of this encounter Goals Goal Patient Goal Type Associated Problems Recent Progress Patient-Stated? Author Blood Pressure < 140/90 Blood Pressure 124/70( 025 11:42 AM EDT) No Luke Gayle, Shan documented as of this encounter Visit Diagnoses Not on filedocumented in this encounter Additional Health Concerns Assessment Noted Time PHQ-9 Depression Total Score: 0 10/09/19 23 11:12 AM EST documented as of this encounter Care Teams Systems Protection Technician Relationship Specialty Start Date End Date Carmine Patel MD 505 [place] [address] PCP - General Internal Medicine 11/16/15 07/15/24 Bárbara Rader MD [address] [place] [address] PCP - General Internal Medicine 07/16/24 Luke Gayle, PharmD 505 [place] [address] Pharmacist Internal Medicine 09/04/22 [facility] 07/10/24 11/19/24 [facility] 11/17/24 documented as of this encounter
--- OUTSIDE RECORDS SUMMARY | 2025-05-14 13:06 | XMS_ITS | Encounter Summary ---
Author Organization [employer] Address 75 [facility] 7[address] [place] [address] Care Team Providers Care Telephone Interceptor Operator Name Role Phone Carmine Patel MD Primary Care Provider +1- [phone] Luke Gayle PharmD Unavailable Unavail able Bárbara Rader MD Primary Care Provide r Encounter Details Date Type Department Care Team ([facility] Contact Info) Description 06/21/2023 Orders Only [facility] MED & PEDS 505 [place], [place] [phone] Carmine Patel MD 505 [place], [place] [phone] Right hip pain (Primary Dx) Social History [...] Upcoming Encounters Date Type Department Care Team ([facility] Contact Info) Description 08/11/2025 11:00 AM EST Office Visit [facility] MEDICINE 230 [place] [address] Bárbara Rader MD 230 [place], [place] [phone] documented as of this encounter Goals Goal [...] documented as of this encounter Care Teams Telephone Interceptor Operator Relationship Specialty Start Date End Date Carmine Patel MD 505 [place] [address] PCP - General Internal Medicine 11/16/15 07/15/24 Bárbara Rader MD 230 [place] [address] PCP - General Internal Medicine 07/16/24 Luke Gayle, PharmD 505 [place] [address] Pharmacist Internal Medicine 09/04/22 [facility] 07/10/24 11/19/24 [facility] 11/17/24 documented as of this encounter
--- OUTSIDE RECORDS SUMMARY | 2025-05-14 13:06 | XMS_ITS | Clinical Summary ---
Author Organization [facility] Address [address] [place] [address] Phone Care Team Providers Care Press Set Up Person Name Role Phone Carmine Patel MD Primary [...] every morning 04/04/2023 Active ergocalciferol 1.25 MG (88859 UT) capsule 50,000 Units 1 (one) time [...] patient's age to complete this topic Insurance [facility] ([id number]) ZUHAIR ROBLERO [id number] [facility] ([id number]) ZUHAIR ROBLERO [id number] Care Teams Press Set Up Person Relationship Specialty Start Date End Date Carmine Patel MD [address] [place] [address] [place] [address] PCP - General Internal Medicine 05/02/21
--- OUTSIDE RECORDS SUMMARY | 2025-05-14 13:06 | XMS_ITS | Encounter Summary ---
Author Organization [employer] Address 75 [facility] 7t [place] [address] Care Team Providers Care Computer Video Game Designer Name Role Phone Luke Gayle PharmD Unavailable Unavail able Bárbara Rader MD Primary Care Provide r Encounter Details Date Type Department Care Team (Latest Contact Info) Description 05/14/2025 Travel Social History Tobacco Use Types Packs/Day Years [...] PM EDT documented as of this encounter Functional Status * Over the [...] Author Not at all 05/14/2025 11:46 AM ESTERT Lizeth Branch [place] * Trouble falling or staying asleep, or sleeping too much Answer Date of Assessment Author Not at all 05/14/2025 11:46 AM Lizeth William [place] * Feeling tired or having little energy Answer Date of Assessment Author Not at all 05/14/2025 11:46 AM ESTERT Lizeth Branch [place] * Poor appetite or overeating Answer Date of Assessment Author Not at all 05/14/2025 11:46 AM ESTERT Lizeth Branch [place] * Feeling bad about [...] of Assessment Author 0 05/14/2025 11:46 AM ESTERT Lizeth Branch [place] * Over the last 2 weeks, how often have you been bothered by any of the following problems? Question Answer Date of Assessment Author Feeling nervous, anxious, or on edge 0 05/14/2025 11:46 AM ESTERT Lizeth Branch [place] Not being able to stop or [...] Description 08/11/2025 11:00 AM EST Office Visit [facility] 230 [place] [address] Bárbara Rader MD 230 [place] [address] documented as of this encounter Goals Goal Patient Goal Type Associated Problems Recent Progress Patient-Stated? Author Blood Pressure < 140/90 Blood Pressure 124/70( 025 11:42 AM EDT) No Luke Gayle, PharmD documented as of this encounter Visit Diagnoses Not on filedocumented in this encounter Additional Health Concerns Assessment Noted Time PHQ-9 Depression Total Score: 0 05/14/20 25 11:46 AM EDT documented as of this encounter Care Teams Computer Video Game Designer Relationship Specialty Start Date End Date Bárbara Rader MD 230 [place] [address] PCP - General Internal Medicine 07/16/24 Luke Gayle, PharmD Pharmacist Internal Medicine 09/04/22 [facility] 11/17/24 documented as of this encounter
--- OUTSIDE RECORDS SUMMARY | 2025-05-14 13:06 | XMS_ITS | Encounter Summary ---
Author Organization [employer] Address 75 [facility] 7t [place] [address] Care Team Providers Care Dog License Officer Supervisor Name Role Phone Luke Gayle PharmD Unavailable Unavail able Bárbara Rader MD Primary Care Provide r Reason for Visit * Reason Comments Med Refill Encounter Details Date Type Department Care Team ([facility] st Contact Info) Description 12/15/2024 Refill [facility] MED[facility]INE 230 [place] [address] Bárbara Rader MD 230 [place] [address] Other hyperlipidemia Social History Tobacco Use Types [...] Description 08/11/2025 11:00 AM EST Office Visit [facility] MEDICINE [address] [place] [address] Bárbara Rader MD [address] [place] [address] documented as of this encounter Goals Goal [...] as of this encounter Care Teams Dog License Officer Supervisor Relationship Specialty Start Date End Date Bárbara Rader MD [address] [place] [address] PCP - General Internal Medicine 07/16/24 Luke Gayle, PharmD Pharmacist Internal Medicine 09/04/22 [facility] 11/17/24 documented as of this encounter
--- OUTSIDE RECORDS SUMMARY | 2025-05-14 13:06 | XMS_ITS | Encounter Summary ---
Author Organization [employer] Address 75 [facility] 7t [place] [address] Care Team Providers Care Faculty Support Coordinator Name Role Phone Luke Gayle PharmD Unavailable Unavail able Bárbara Rader MD Primary Care Provide r Reason for Visit * Reason Onset Date Comments chart prep 05/13/2025 Encounter Details Date Type Department Care Team ([facility] st Contact Info) Description 05/13/2025 Telephone [facility] MED[facility]INE 230 [place] [address] Bárbara Rader MD 230 [place], [place] [phone] chart prep Social History Tobacco Use Types Packs/Day Years [...] encounter Miscellaneous Notes * Telephone Encounter - Binta Mohan [place] - 05/13/2025 10:04 AM EDT Chart Prep Labs: done Images: done Referrals: complete Vaccines due: Covid, Flu, and DTAP Screenings: eye exam and foot exam Overdue care gaps: A1c, Glucose, PHQ-9, and KELLIE-7 documented in this encounter Plan of Treatment Upcoming Encounters Date Type Department Care Team (Late st Contact Info) Description 08/11/2025 11:00 AM EST Office Visit [facility] MED[facility]INE [address] [place] [address] Bárbara Rader MD 230 [place] [address] documented as of this encounter Goals Goal [...] documented as of this encounter Care Teams Faculty Support Coordinator Relationship Specialty Start Date End Date Bárbara Rader MD [address] [place] [address] PCP - General Internal Medicine 07/16/24 Luke Gayle PharmD Pharmacist Internal Medicine 09/04/22 [facility] 11/17/24 documented as of this encounter
--- OUTSIDE RECORDS SUMMARY | 2025-05-14 13:06 | XMS_ITS | Encounter Summary ---
Author Organization [employer] Address 75 [facility] 7t [place] [address] Care Team Providers Care Contact Worker Name Role Phone Carmine Patel MD Primary Care Provider +1- [phone] Luke Gayle PharmD Unavailable Unavail able Bárbara Rader MD Primary Care Provide r Encounter Details Date Type Department Care Team (Late st Contact Info) Description 06/26/2024 Orders Only [facility] MED & PEDS 505 [place], [place] [phone] Carmine Patel MD 505 [place], [place] [phone] Burning sensation (Primary Dx) Social History Tobacco [...] EST Office Visit [facility] MEDICINE [address] [place] [address] Bárbara Rader MD [address] [place] [address] documented as of this encounter Goals Goal [...] documented as of this encounter Care Teams Contact Worker Relationship Specialty Start Date End Date Carmine Patel MD 505 [place] [address] PCP - General Internal Medicine 11/16/15 07/15/24 Bárbara Rader MD [address] [place] [address] PCP - General Internal Medicine 07/16/24 Luke Gayle PharmD [address] [place] [address] Pharmacist Internal Medicine 09/04/22 [facility] 07/10/24 11/19/24 [facility] 11/17/24 documented as of this encounter
--- OUTSIDE RECORDS SUMMARY | 2025-05-14 13:06 | XMS_ITS | Encounter Summary ---
Author Organization [employer] Address 75 [facility] 7t [place] [address] Care Team Providers Care Retort Forker Name Role Phone Carmine Patel MD Primary Care Provider +1 [phone] Luke Gayle PharmD Unavailable Unavail able Bárbara Rader MD Primary Care Provide r Reason for Visit * Reason Onset Date Comments FYI 02/15/2024 Encounter Details Date Type Department Care Team ([facility] st Contact Info) Description 02/15/2024 Telephone [facility]S 505 [place], [place] [phone] Carmine Patel MD 505 [place], [place] [phone] FYI Social History Tobacco Use Types Packs/Day [...] - 02/15/2024 3:07 PM EDT Tc from [facility] with Tiffany calling to report pt has been discharged as of today from home PT. documented in this encounter Plan of Treatment Upcoming Encounters Date Type Department Care Team (Late st Contact Info) Description 08/11/2025 11:00 AM EST Office Visit [facility] MEDICINE [address] [place] [address] Bárbara Rader MD 230 [place] [address] documented as of this encounter Goals Goal [...] documented as of this encounter Care Teams Retort Forker Relationship Specialty Start Date End Date Carmine Patel MD [address] [place] [address] PCP - General Internal Medicine 11/16/15 07/15/24 Bárbara Rader MD [address] [place] [address] PCP - General Internal Medicine 07/16/24 Luke Gayle PharmD [address] [place] [phone] Pharmacist Internal Medicine 09/04/22 [facility] 07/10/24 11/19/24 [facility] 11/17/24 documented as of this encounter
--- OUTSIDE RECORDS SUMMARY | 2025-05-14 13:06 | XMS_ITS | Encounter Summary ---
Author Organization [employer] Address 75 [facility] 7t [place] [address] Care Team Providers Care M1 Armor Crewman Name Role Phone Luke Gayle PharmD Unavailable Unavail able Bárbara Rader MD Primary Care Provide r Reason for Visit * Reason Comments Med Refill Encounter Details Date Type Department Care Team ([facility] st Contact Info) Description 12/15/2024 Refill [facility] MEDICINE 230 [place] [address] Carmine Patel MD 505 [place] [address] Social History Tobacco Use Types Packs/Day Years [...] Description 08/11/2025 11:00 AM EST Office Visit [facility] MEDICINE [address] [place] [address] Bárbara Rader MD 230 [place] [address] documented as of this encounter Goals Goal [...] documented as of this encounter Care Teams M1 Armor Crewman Relationship Specialty Start Date End Date Bárbara Rader MD [address] [place] [address] PCP - General Internal Medicine 07/16/24 Luke Gayle, PharmD Pharmacist Internal Medicine 09/04/22 [facility] 11/17/24 documented as of this encounter
--- OUTSIDE RECORDS SUMMARY | 2025-05-14 13:06 | XMS_ITS | Encounter Summary ---
Author Organization [employer] Address 75 [facility] 7t [place] [address] Care Team Providers Care Assistant Film Editor Name Role Phone Luke Gayle PharmD Unavailable Unavail able Bárbara aRder MD Primary Care Provide r Reason for Visit * Reason Onset Date Comments Appointment Request 09/15/2024 Encounter Details Date Type Department Care Team ([facility] st Contact Info) Description 09/15/2024 Telephone [facility] MEDICINE 230 [place] [address] Bárbara Rader MD 230 [place], [place] [phone] Appointment Request Social History Tobacco Use Types [...] Description 08/11/2025 11:00 AM EST Office Visit [facility] MEDICINE 230 [place] [address] Bárbara Rader MD 230 [place] [address] documented as of this encounter Goals Goal Patient Goal Type Associated Problems Recent Progress Patient-Stated? Author Blood Pressure < 140/90 Blood Pressure 124/70( 025 11:42 AM EDT) No Dellogono, Luke, PharmD documented as of this encounter Visit Diagnoses Not on filedocumented in this encounter Additional Health Concerns Assessment Noted Time PHQ-9 Depression Total Score: 0 07/16/20 10:22 AM EDT documented as of this encounter Care Teams Assistant Film Editor Relationship Specialty Start Date End Date Bárbara Rader MD [address] [place] [address] PCP - General Internal Medicine 07/16/24 Luke Gayle PharmD Pharmacist Internal Medicine 09/04/22 [facility] 07/10/24 11/19/24 [facility] 11/17/24 documented as of this encounter
--- OUTSIDE RECORDS SUMMARY | 2025-05-14 13:06 | XMS_ITS | Encounter Summary ---
Author Organization [employer] Address 75 [facility] 7t [place] [address] Care Team Providers Care Community Health Director Name Role Phone Carmine Patel MD Primary Care Provider +1- [phone] Luke Gayle PharmD Unavailable Unavail able Bárbara Rader MD Primary Care Provide r Encounter Details Date Type Department Care Team (Late st Contact Info) Description 01/18/2024 Orders Only [facility] CHC MED & PEDS [address] [place], [place] [phone] Carmine Patel MD 505 [place], [place] [phone] Urinary incontinence, unspecified type (Primary Dx) Social [...] Description 08/11/2025 11:00 AM EST Office Visit [facility] MEDICINE [address] [place] [address] Bárbara Rader MD 230 [place] [address] documented as of this encounter Goals Goal [...] (06/20/2024 1:00 PM EDT) Color Urine Yellow [facility] Appearance Urine Cloudy [facility] PH 6.5 5.0 - 9.0 [facility] Glucose Urine UA Negative Negative mg/dL [facility] Urine Blood Trace(A) Negative [facility] Specific [place] - Urine 1.010 1.005 - 1.025 [facility] Urine Protein Negative Neg-Trace mg/dL [facility] Urine Ketones Negative Negative mg/dL [facility] Nitrite Urine Negative Negative [facility] Leukocyte Esterase Urine Large (3+)(A) Negative [facility] RBC Urine 0-2 0 - 2 /HPF [facility] Urine WBC >50(A) 0 - 5 /HPF [facility] Urine Squamous Epithelial Cell 0-2 0 - 2 /HPF [facility] Urine Bacteria 4+ None Seen [facility] Hyaline Casts, Urine 0-2 0 - 2 /LPF [facility] Urine 06/20/2024 1:00 PM EDT 06/20/2024 3:09 PM EDT Narrative [facility] - 06/20/2024 3:25 PM EDT Urine, Clean Catch Carmine Patel MD LAB URINE ORDERABLES Final Result [facility] [address] [place] [address] [phone] documented in this encounter Visit Diagnoses Diagnosis Urinary incontinence, unspecified type- Primary documented in this encounter Additional Health Concerns Assessment Noted Time PHQ-9 Depression Total Score: 0 10/09/19 23 11:12 AM EST documented as of this encounter Care Teams Community Health Director Relationship Specialty Start Date End Date Carmine Patel MD [address] [place] [address] PCP - General Internal Medicine 11/16/15 07/15/24 Bárbara Rader MD [address] [place] [address] PCP - General Internal Medicine 07/16/24 Luke Gayle, JarettD [address] [place] [address] Pharmacist Internal Medicine 09/04/22 [facility] 07/10/24 11/19/24 [facility] 11/17/24 documented as of this encounter
--- OUTSIDE RECORDS SUMMARY | 2025-05-14 13:06 | XMS_ITS | Encounter Summary ---
Author Organization [employer] Address 75 [facility] 7t [place] [address] Care Team Providers Care Electrical Laboratory Technician Name Role Phone Luke Gayle PharmD Unavailable Unavail able Bárbara Rader MD Primary Care Provide r Reason for Visit * Reason Comments Med Refill Encounter Details Date Type Department Care Team ([facility] st Contact Info) Description 11/04/2024 Refill [facility] MEDICINE 230 [place] [address] Carmine Patel MD 505 [place] [address] Epigastric pain Social History Tobacco Use Types [...] Description 08/11/2025 11:00 AM EST Office Visit [facility] MEDICINE [address] [place] [address] Bárbara Rader MD [address] [place] [address] documented as of this encounter Goals Goal [...] documented as of this encounter Care Teams Electrical Laboratory Technician Relationship Specialty Start Date End Date Bárbara Rader MD [address] [place] [address] PCP - General Internal Medicine 07/16/24 Luke Gayle, PharmD Pharmacist Internal Medicine 09/04/22 [facility] 07/10/24 11/19/24 [facility] 11/17/24 documented as of this encounter
--- OUTSIDE RECORDS SUMMARY | 2025-05-14 13:07 | XMS_ITS | Encounter Summary ---
Author Organization [employer] Address [address] [facility] 7t [place] [address] Care Team Providers Care Industrial Maintenance Millwright Name Role Phone Carmine Patel MD Primary Care Provider [phone]- [phone] Luke Gayle PharmD Unavailable Unavail able Bárbara Rader MD Primary Care Provide r Encounter Details Date Type Department Care Team (Late st Contact Info) Description 06/11/2024 Orders Only [facility] CHC MED & PEDS 505 [place], [place] [phone] Carmine Patel MD 505 [place], [place] [phone] Pruritus (Primary Dx) Social History Tobacco Use [...] Description 08/11/2025 11:00 AM EST Office Visit [facility] MEDICINE [address] [place] [address] Bárbara Rader MD [address] [place] [address] documented as of this encounter Goals Goal [...] documented as of this encounter Care Teams Industrial Maintenance Millwright Relationship Specialty Start Date End Date Carmine Patel MD 505 [place] [address] PCP - General Internal Medicine 11/16/15 07/15/24 Bárbara Rader MD [address] [place] [address] PCP - General Internal Medicine 07/16/24 Luke Gayle, PharmD [address] [place] [address] Pharmacist Internal Medicine 09/04/22 [facility] 07/10/24 11/19/24 [facility] 11/17/24 documented as of this encounter
--- OUTSIDE RECORDS SUMMARY | 2025-05-14 13:07 | XMS_ITS | Encounter Summary ---
Author Organization [employer] Address [address] [place] [address] [place], [place] [address] Care Team Providers Care Mainframe Analyst Name Role Phone Carmine Patel MD Primary Care Provider [phone] Luke Gayle PharmD Unavailable Unavail able Bárabra Rader MD Primary Care Provide r Reason for Referral * Consultation (Routine) - Closed Specialty Diagnoses / Procedures Referred By Alden andres Referred To Contact Physical Therapy Diagnoses Acute right ankle pain Carmine Patel MD 505 [place] [address] Phone: tel: fax: [facility] [address] [place] [address] Phone: tel: fax: Referral ID Status Reason Start Date Expiration Date V isits Requested Visits Authorized [id number] Closed Specialty Services Required 03/28/2024 03/28/2025 1 1 Encounter Details Date Type Department Care Team (Late st Contact Info) Description 03/24/2024 Orders Only [facility] CHC MED & PEDS 505 [place], [place] [phone] Carmine Patel MD 505 [place] [address] Acute right ankle pain (Primary Dx) Social [...] 08/11/2025 11:00 AM EST Office Visit [facility] MEDICINE 230 [place] [address] Bárbara Rader MD 230 [place] [address] Scheduled Orders Name Type Priority Associated Diagnoses [...] AM EDT Narrative 03/28/2024 12:12 PM EDT [place] [address] XRay Report Signed Patient: Magalie Solis MR#: [id number] : 1945 Acct:[id number] Age/Sex: 78 / F ADM Date: 03/28/24 Loc: HO.ED Attending Dr: Ordering Physician: Elzbieta Franz Date of Service: 03/28/24 Procedure(s): XR knee RT 4V Accession Number(s): [id number] cc: Carmine Patel MD; Elzbieta Franz EXAMINATION: [...] Sudha Palomares in OV> 03/28/24 1208 DD/ 115 TD/TT: Hardwood Floor Layer: Procedure Note Laura, Image - 03/28/2024 [place] [address] XRay Report Signed Patient: Magalie Solis MMR#: [id number] : 6Acct:[id number] Age/Sex: 78 / FADM Date: 03/28/24 Loc: HO.ED Attending Dr: Ordering Physician: Elzbieta Franz Date of Service: 03/28/24 Procedure(s): XR knee RT 4V Accession Number(s): [id number] cc: Carmine Patel MD; Elzbieta Franz EXAMINATION: [...] in OV> 03/28/24 1208 DD/ 1151 TD/TT: Hardwood Floor Layer: [facility] External Provider IMG XR PROCEDURES Final Result documented in this encounter Visit Diagnoses Diagnosis Acute right ankle pain- Primary documented in this encounter Additional Health Concerns Assessment Noted Time PHQ-9 Depression Total Score: 0 10/09/19 23 11:12 AM EST documented as of this encounter Care Teams Mainframe Analyst Relationship Specialty Start Date End Date Carmine Patel MD 505 [place] [address] PCP - General Internal Medicine 11/16/15 07/15/24 Bárbara Rader MD [address] [place] [address] PCP - General Internal Medicine 07/16/24 Luke Gayle PharmD 505 [place] [address] Pharmacist Internal Medicine 09/04/22 [facility] 07/10/24 11/19/24 [facility] 11/17/24 documented as of this encounter
[2025-05-14 14:07] LABS: Alanine Aminotransferase 9 U/L (0-31); Albumin Level 3.9 g/dL (3.5-5.0); Alkaline Phosphatase 49 U/L (39-117); Anion Gap 12 (12-20); Aspartate Amino Transferase 36 U/L (5-31); Blood Urea Nitrogen 12 mg/dL (9-16); Calcium 8.8 mg/dL (8.4-10.2); Carbon Dioxide 35 mmol/L (22-29); Chloride 96 mmol/L (96-108); Cholesterol 139 mg/dL (<200); Estimated Glomerular Filt Rate > 60; HDL Cholesterol 50 mg/dL (>40); Potassium 4.1 mmol/L (3.3-5.1); Sodium 139 mmol/L (135-145); Total Protein 7.2 g/dL (6.5-8.0); Triglycerides 131 mg/dL (<150)
== END 2025-05-14 12:07 | disposition home or self-care (01) ==
LOC: HO.HHCL 12:06
PROVIDERS: PCP Internal Medicine; Visit Provider Internal Medicine
DX: E11.69 Type 2 diabetes mellitus with other specified complication (principal)
CPT/HCPCS: 36415; 80053; 80061

== ENCOUNTER 2025-06-05 11:59 | Outpatient (REF) | payer OTHER, SELFPAY ==
--- OUTSIDE RECORDS SUMMARY | 2025-06-05 12:22 | XMS_ITS | Encounter Summary ---
Author Organization [employer] Address [address] [place] [address] [address] [address] Care Team Providers Care Medical Records Field Technician Name Role Phone Carmine Patel MD Primary Care Provider [phone] Luke Gayle PharmD Unavailable Unavail able Bárbara Rader MD Primary Care Provide r Reason for Referral * Consultation (Routine) - Closed Specialty Diagnoses / Procedures Referred By Alden andres Referred To Contact Physical Therapy Diagnoses Acute right ankle pain Carmine Patel MD [address] [place] [address] Phone: tel: fax: [facility] Physical Therapy [address] [place] [address] Phone: tel: fax: Referral ID Status Reason Start Date Expiration Date V isits Requested Visits Authorized [id number] Closed Specialty Services Required 03/28/2024 03/28/2025 1 1 Encounter Details Date Type Department Care Team (Late st Contact Info) Description 03/24/2024 Orders Only [facility] CHC MED & PEDS [address] [place], [place] [phone] Carmine Patel MD 505 [place] [address] Acute right ankle pain (Primary Dx) Social [...] Description 08/11/2025 11:00 AM EST Office Visit [facility] MEDICINE 230 [place], [place] [phone] Bárbara Rader MD 230 [place], [place] [phone] 10/13/2025 1:30 PM EST Office Visit [facility] OPTOMETRY [address] [place], [place] [phone] Abigail James, OD 230 [place] [address] Scheduled Orders Name Type Priority Associated Diagnoses [...] Laterality Modality Lower Extremities, Knee Right [facility] Imaging 03/28/2024 11:5 1 AM EDT Narrative 03/28/2024 12:12 PM EDT [place] [address] XRay Report Signed Patient: Magalie Solis MR#: [id number] : 1945 Acct:[id number] Age/Sex: 78 / F ADM Date: 03/28/24 Loc: HO.ED Attending Dr: Ordering Physician: Elzbieta Franz Date of Service: 03/28/24 Procedure(s): XR knee RT 4V Accession Number(s): [id number] cc: Carmine Patel MD; Elzbieta Franz EXAMINATION: [...] in OV> 03/28/24 1208 DD/ 1151 TD/TT: 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: Procedure Note Donotuseinterpreter, Image - 03/28/2024 [place] [address] XRay Report Signed Patient: Magalie Solis MMR#: [id number] : 6Acct:[id number] Age/Sex: 78 / FADM Date: 03/28/24 Loc: HO.ED Attending Dr: Ordering Physician: Elzbieta Franz Date of Service: 03/28/24 Procedure(s): XR knee RT 4V Accession Number(s): [id number] cc: Carmine Patel MD; Elzbieta Franz EXAMINATION: [...] in OV> 03/28/24 1208 DD/ 1151 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: 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: [facility] External Provider IMG XR PROCEDURES Final Result documented in this encounter Visit Diagnoses Diagnosis Acute right ankle pain- Primary documented in this encounter Additional Health Concerns Assessment Noted Time PHQ-9 Depression Total Score: 0 10/09/19 23 11:12 AM EST documented as of this encounter Care Teams Medical Records Field Technician Relationship Specialty Start Date End Date Carmine Patel MD [address] [place] [address] PCP - General Internal Medicine 11/16/15 07/15/24 Bárbara Rader MD [address] [place] [address] PCP - General Internal Medicine 07/16/24 Luke Gayle PharmD [address] [place] [address] Pharmacist Internal Medicine 09/04/22 [facility] 07/10/24 11/19/24 [facility] 11/17/24 documented as of this encounter
--- OUTSIDE RECORDS SUMMARY | 2025-06-05 12:22 | XMS_ITS | Encounter Summary ---
Author Organization [employer] Address [address] [facility] 7t [place] [address] Care Team Providers Care Adviser Sales Name Role Phone Carmine Patel MD Primary Care Provider [phone] Luke Gayle PharmD Unavailable Unavail able Bárbara Rader MD Primary Care Provide r Encounter Details Date Type Department Care Team (Late st Contact Info) Description 02/14/2024 Orders Only [facility] CHC MED & PEDS [address] [place], [place] [phone] Carmine Patel MD 505 [place], [place] [phone] Type 2 diabetes mellitus with other specified complication, without long-term current use of insulin ([facility]) (Primary Dx) Social History Tobacco [...] Office Visit [facility] MEDICINE 230 [place] [address] Bárbara Rader MD 230 [place] [address] 10/13/2025 1:30 PM EST Office Visit [facility] OPTOMETRY [address] [place] [address] Jacob, Abigail, OD 230 [place] [address] documented as of this encounter Goals Goal [...] AM EDT Narrative 03/31/2024 9:51 AM EDT [address] [address] XRay Report Signed Patient: Magalie Solis MR#: [id number] : 1945 Acct:[id number] Age/Sex: 78 / F ADM Date: 03/13/24 Loc: HO.XRAY Attending Dr: Ofelia Ly NP Ordering Physician: Saleem Young PA-C Date of Service: 03/13/24 Procedure(s): XR ankle RT min 3V Accession Number(s): [id number] cc: Carmine Patel MD; Saleem Young PA-C [...] callus formation. This study was presented to mt March 31, 2024 for interpretation. PSA staff will provide results to referring provider at this time. Dictated By: Tierra Worthy MD Signed By: <Electronically signed by Tierra Worthy MD in OV> 03/31/2449 DD/ TD/TT: Customer Insight Analyst: Procedure Note Laura, Dara - 03/31/2024 [place] [address] XRay Report Signed Patient: Magalie Solis MMR#: [id number] : 6Acct:[id number] Age/Sex: 78 / FADM Date: 03/13/24 Loc: HO.EROSAY Attending Dr: Ofelia Ly NP Ordering Physician: Saleem Young PA-C Date of Service: 03/13/24 Procedure(s): XR ankle RT min 3V Accession Number(s): [id number] cc: Carmine Patel MD; Saleem Young PA-C [...] callus formation. This study was presented to mt March 31, 2024 for interpretation. PSA staff will provide results to referring provider at this time. Dictated By: Tierra Worthy MD Signed By: <Electronically signed by Tierra Worthy MD in OV> 03/31/2449 DD/ TD/TT: Customer Insight Analyst: [facility] External Provider IMG XR PROCEDURES Final Result * BI Mammogram Additional Views Right (03/12/2024 2:15 PM EDT) Anatomical Region Laterality Modality Breast Right Mammography 03/12/2024 2:15 PM EDT Narrative 03/12/2024 3:08 PM EDT [address] [place] [address] Mammography Report Signed Patient: Magalie Live MR#: [id number] : 1945 Acct:[id number] Age/Sex: 78 / F ADM Date: 03/12/24 Loc: MAMMO Attending Dr: Carmine Patel MD Ordering Physician: Carmine Patel MD Results: 2 Benign Findings Date of Service: 03/12/24 Follow Up: 1 Year From [facility] Mammogram Procedure(s): MM added views RT Accession Number(s): [id number] cc: Carmine Patel MD EXAMINATION: MM DIAGNOSTIC DIGITAL MAMMOGRAPHY, RIGHT CLINICAL INFORMATION: Follow-up diagnostic views for calcifications seen right breast upper-outer quadrant on screening exam. COMPARISON: Mammography: 02/05/2024. Exams dating back to 2018 and 2016. TECHNIQUE: Digital mammography is performed [...] in OV> 03/12/24 1504 DD/ 1415 TD/TT: Customer Insight Analyst: Procedure Note Donotuseinterpreter, Image - 03/12/2024 [facility] [address] [place], [place] [address] Mammography Report Signed Patient: Magalie Live MMR#: [id number] : 6Acct:[id number] Age/Sex: 78 / FADM Date: 03/12/24 Loc: SANDIO Attending Dr: Carmine Patel MD Ordering Physician: Carmine Patel MDResults: 2 Benign Findings Date of Service: 03/12/24Follow Up: 1 Year From Orig inal Mammogram Procedure(s): MM added views RT Accession Number(s): [id number] cc: Carmine Patel MD EXAMINATION: MM DIAGNOSTIC DIGITAL MAMMOGRAPHY, RIGHT CLINICAL INFORMATION: Follow-up diagnostic views for calcifications seen right breast upper-outer quadrant on screening exam. COMPARISON: Mammography: 02/05/2024. Exams dating back to 2018 and 2016. TECHNIQUE: Digital mammography is performed [...] in OV> 03/12/24 1504 DD/ 1415 TD/TT: Customer Insight Analyst: Carmine Patel MD IMG BI PROCEDURES Final Res ult documented in this encounter Visit Diagnoses Diagnosis Type 2 diabetes mellitus with other specified complication, without long-term current use of insulin ([facility])- Primary documented in this encounter Additional Health Concerns Assessment Noted Time PHQ-9 Depression Total Score: 0 10/09/19 23 11:12 AM EST documented as of this encounter Care Teams Adviser Sales Relationship Specialty Start Date End Date Carmine Patel MD [address] [place] [address] PCP - General Internal Medicine 11/16/15 07/15/24 Bárbara Rader MD [address] [place] [address] PCP - General Internal Medicine 07/16/24 Luke Gayle PharmD 505 [place] [address] Pharmacist Internal Medicine 09/04/22 [facility] 07/10/24 11/19/24 [facility] 11/17/24 documented as of this encounter
--- OUTSIDE RECORDS SUMMARY | 2025-06-05 12:22 | XMS_ITS | Encounter Summary ---
Author Organization [employer] Address [address] [facility] 7t [place] [address] Care Team Providers Care Behavioral Health Clinician Name Role Phone Luke Gayle PharmD Unavailable Unavail able Bárbara Rader MD Primary Care Provide r Reason for Visit * Reason Onset Date Comments Appointment Request 09/15/2024 Encounter Details Date Type Department Care Team ([facility] st Contact Info) Description 09/15/2024 Telephone [facility] MEDICINE [address] [place] [address] Bárbara Rader MD [address] [place], [place] [phone] Appointment Request Social History Tobacco Use Types [...] Description 08/11/2025 11:00 AM EST Office Visit [facility] MEDICINE 230 [place] [address] Bárbara Rader MD 230 [place] [address] 10/13/2025 1:30 PM EST Office Visit [facility] OPTOMETRY [address] [place], [place] [phone] Abigail James, OD 230 [place] [address] documented as of this encounter Goals Goal [...] documented as of this encounter Care Teams Behavioral Health Clinician Relationship Specialty Start Date End Date Bárbara Rader MD [address] [place] [address] PCP - General Internal Medicine 07/16/24 Luke Gayle, PharmD Pharmacist Internal Medicine 09/04/22 [facility] 07/10/24 11/19/24 [facility] 11/17/24 documented as of this encounter
--- OUTSIDE RECORDS SUMMARY | 2025-06-05 12:22 | XMS_ITS | Clinical Summary ---
Author Organization [facility] Address [address] [place] [phone] Phone Care Team Providers Care Career Services Assistant Name Role Phone Carmine Patel MD Primary [...] every morning 04/04/2023 Active ergocalciferol 1.25 MG (20249 UT) capsule 50,000 Units 1 (one) time [...] patient's age to complete this topic Insurance [facility] ([id number]) ZUHAIR ROBLERO [id number] [facility] ([id number]) ZUHAIR ROBLERO [id number] Care Teams Career Services Assistant Relationship Specialty Start Date End Date Carmine Patel MD [address] [place] [address] [place] [address] PCP - General Internal Medicine 05/02/21
--- OUTSIDE RECORDS SUMMARY | 2025-06-05 12:22 | XMS_ITS | Encounter Summary ---
Author Organization [employer] Address [address] [facility] 7t [place] [address] Care Team Providers Care Solar Power Installer Name Role Phone Carmine Patel MD Primary Care Provider [phone]- [phone] Luke Gayle PharmD Unavailable Unavail able Bárbara Rader MD Primary Care Provide r Reason for Visit * Reason Onset Date Comments FYI 05/07/2024 Encounter Details Date Type Department Care Team (Late st Contact Info) Description 05/07/2024 Telephone [facility] MEDICINE [address] [place] [address] Carmine Patel MD 505 [place] [address] FYI Social History Tobacco Use Types Packs/Day [...] any questions you can contact Terence at [phone]. documented in this encounter Plan of Treatment Upcoming Encounters Date Type Department Care Team (Late st Contact Info) Description 08/11/2025 11:00 AM EST Office Visit [facility] MEDICINE [address] [place] [address] Bárbara Rader MD 230 [place] [address] 10/13/2025 1:30 PM EST Office Visit [facility] OPTOMETRY [address] [place] [address] Abigail James, OD 230 [place] [address] documented as of this encounter Goals Goal [...] documented as of this encounter Care Teams Solar Power Installer Relationship Specialty Start Date End Date Carmine Patel MD [address] [place] [address] PCP - General Internal Medicine 11/16/15 07/15/24 Bárbara Rader MD 230 [place] [address] PCP - General Internal Medicine 07/16/24 Luke Gayle, PharmD 505 [place] [address] Pharmacist Internal Medicine 09/04/22 [facility] 07/10/24 11/19/24 [facility] 11/17/24 documented as of this encounter
--- OUTSIDE RECORDS SUMMARY | 2025-06-05 12:22 | XMS_ITS | Encounter Summary ---
Author Organization [employer] Address [address] [facility] 7t [place] [address] Care Team Providers Care Tensile Tester Name Role Phone Luke Gayle PharmD Unavailable Unavail able Bárbara Rader MD Primary Care Provide r Reason for Visit * Reason Comments Med Refill Encounter Details Date Type Department Care Team ([facility] st Contact Info) Description 12/15/2024 Refill [facility] MEDICINE [address] [place] [address] Bárbara Rader MD 230 [place] [address] Other hyperlipidemia Social History Tobacco Use Types [...] 08/11/2025 11:00 AM EST Office Visit [facility] MEDICINE [address] [place] [address] Bárbara Rader MD 230 [place] [address] 10/13/2025 1:30 PM EST Office Visit [facility] OPTOMETRY [address] [place] [address] Jacob, Abigail, OD 230 [place] [address] documented as of this encounter Goals Goal [...] documented as of this encounter Care Teams Tensile Tester Relationship Specialty Start Date End Date Bárbara Rader MD [address] [place] [address] PCP - General Internal Medicine 07/16/24 Luke Gayle PharmD Pharmacist Internal Medicine 09/04/22 [facility] 11/17/24 documented as of this encounter
--- OUTSIDE RECORDS SUMMARY | 2025-06-05 12:22 | XMS_ITS | Encounter Summary ---
Author Organization [employer] Address [address] [facility] 7[address] [place] [address] Care Team Providers Care Gantry Rigger Name Role Phone Carmine Patel MD Primary Care Provider +1- [phone] Luke Gayle PharmD Unavailable Unavail able Bárbara Rader MD Primary Care Provide r Encounter Details Date Type Department Care Team ([facility] Contact Info) Description 06/21/2023 Orders Only [facility] CHC MED & PEDS 505 [place], [place] [phone] Carmine Patel MD 505 [place], [place] [phone] Right hip pain (Primary Dx) Social History [...] Upcoming Encounters Date Type Department Care Team ([facility] Contact Info) Description 08/11/2025 11:00 AM EST Office Visit [facility] MEDICINE 230 [place], [place] [phone] Bárbara Rader MD 230 [place], [place] [phone] 10/13/2025 1:30 PM EST Office Visit [facility] OPTOMETRY [address] [place] [address] Jacob, Abigail, OD 230 [place], [place] [phone] documented as of this encounter Goals Goal [...] documented as of this encounter Care Teams Gantry Rigger Relationship Specialty Start Date End Date Carmine Patel MD 505 [place] [address] PCP - General Internal Medicine 11/16/15 07/15/24 Bárbara Rader MD [address] [place], [place] [phone] PCP - General Internal Medicine 07/16/24 Luke Gayle, PharmD 505 [place] [address] Pharmacist Internal Medicine 09/04/22 [facility] 07/10/24 11/19/24 [facility] 11/17/24 documented as of this encounter
--- OUTSIDE RECORDS SUMMARY | 2025-06-05 12:22 | XMS_ITS | Clinical Summary ---
Author Organization [employer] Address [address] [place] [address] Care Team Providers Care Assistant Professor Of Psychology Name Role Phone Luke Gayle PharmD Unavailable [...] HOURS NEEDED 8.5 g 2 023 Active losartan (Cozaar) 50 MG tablet Take 1 tablet (50 mg) by mouth Once per day. 30 tablet 11 024 Active insulin lispro (HumaLOG) 100 UNIT/ML injectionIndicati ons:Type 2 diabetes mellitus with other specified complication, without long-term current use of insulin (CMS/HCC) Inject 5 Units under the skin with breakfast, with lunch, and with evening meal. Inject 5 units under the skin three times a day with meals and at bedtime 10 mL 11 024 Active Continuous Glucose Cereal Maker (FreeStyle Silvana 2 Marquette) deviceIndications :Type 2 diabetes mellitus with other specified complication, without long-term current use of insulin (CMS/HCC) Scan sensor every 8 hours 1 each 024 Active Continuous Glucose Sensor (FreeStyle Silvana 2 Sensor) miscIndications:T ype 2 diabetes mellitus with other specified complication, without long-term current use of insulin ([facility]) Apply 1 sensor every 14 days 2 each 11 Active Blood Glucose Monitoring Suppl (FreeStyle [place] Lite) w/Device kitIndications:Ty pe 2 diabetes mellitus with other specified complication, without long-term current use of insulin ([facility]) Use to test blood sugar 2 times daily 1 kit 024 Active ergocalciferol (Vitamin D2) 1.25 MG (87602 UT) capsule TAKE ONE CAPSULE EVERY WEEK 12 capsule 5 024 Active insulin glargine (Lantus SoloStar) 100 UNIT/ML penIndications:Ty pe 2 diabetes mellitus with other specified complication, without long-term current use of insulin ([facility]) Inject 20 Units under the skin at bedtime. 3 mL 3 024 Active loratadine (Claritin) 10 MG tabletIndications :Pruritus Take 1 tablet (10 mg) by mouth Once per day. 30 tablet 024 Active Easy Touch Lancets 33G/Twist miscIndications:T ype 2 diabetes mellitus with other specified complication, without long-term current use of insulin ([facility]) TEST BLOOD SUGAR TWICE DAILY 100 each 3 024 Active Ketotifen Fumarate 0.035 % solutionIndicatio ns:Allergic conjunctivitis of left eye Administer 1 drop into affected eye(s) every 12 (twelve) hours if needed (twice a day f needed on affected eye). 5 mL 1 024 Active glucose blood (FREESTYLE LITE) test strip Please use to check BS 3x daily 100 strip 11 025 Active famotidine (Pepcid) 20 MG tabletIndications :Epigastric pain Take 1 tablet (20 mg) by mouth 2 times daily. 60 tablet 11 025 2025 Active pravastatin (Pravachol) 40 MG tabletIndications :Other hyperlipidemia Take 1 tablet (40 mg) by mouth at bedtime. 90 tablet 3 025 Active furosemide (Lasix) 40 MG tabletIndications :Stage 3a chronic kidney disease ([facility]) Take 1 tablet (40 mg) by mouth in the morning. 90 tablet 1 025 Active hydrocortisone 1 % creamIndications: Dermatitis, seborrheic Apply topically 2 times daily. 28 g Active TRUEplus Lancets 33G misc TEST BLOOD SUGAR TWICE DAILY 100 each 2 Active BD Pen Needle Gracy Ultrafine 32G X 4 MM misc USE DIRECTED FOUR TIMES DAILY DIRECTED 300 each 3 Active carvedilol (Coreg) 12.5 MG tablet TAKE 1 TABLET BY MOUTH TWICE DAILY IN THE MORNING AND IN THE EVENING WITH MEALS 60 tablet 3 Active pantoprazole (ProtoNix) 20 MG EC tablet TAKE 1 TABLET BY MOUTH EVERY MORNING BEFORE BREAKFAST DO NOT BREAK, CRUSH, DISSOLVE OR CHEW 30 tablet 3 Active Tirzepatide (Mounjaro) 2.5 MG/0.5ML solution auto-injectorIndi cations:Type 2 diabetes mellitus with other specified complication, without long-term current use of insulin (CMS/HCC) Inject 2.5 mg under the skin 1 (one) time per week. 2 mL 2 Active amLODIPine (Norvasc) 2.5 MG tablet Active cephalexin (Keflex) 500 MG capsule Take 1 capsule by mouth every 6 (six) hours. Active metFORMIN XR (Glucophage-XR) 500 MG 24 hr tablet Active Tirzepatide-Weigh t Management (Zepbound) 2.5 MG/0.5ML solution auto-injectorIndi cations:Class 3 severe obesity due to excess calories with serious comorbidity and body mass index (BMI) of 45.0 to 49.9 in adult Inject 0.5 mL (2.5 mg) under the skin 1 (one) time per week. 2 mL 025 2024 Discontinued metFORMIN, OSM, (Fortamet) 1000 MG 24 hr tabletIndications :Type 2 diabetes mellitus with other specified complication, without long-term current use of insulin (CMS/HCC) Take 1 tablet (1,000 mg) by mouth with evening meal. Do not crush, chew, or split. 30 tablet 11 025 2024 Discontinued(T herapy completed) Active Problems Problem Noted Date Diagnosed Date Chronic pain of right ankle 05/14/2025 Assessment & Plan (05/14/2025 2:30 PM EDT): I will refer patient to orthopedics Primary osteoarthritis of right knee 03/02/2025 Assessment [...] 07/18/24 Recurrent UTI 07/16/2024 Assessment & Plan (05/14/2025 2:30 PM EDT): She is improving, advised to finish her antibiotics, follow-up with urology Assessment & Plan (08/05/2024 1:57 PM EST): [...] 2 diabetes mellitus 07/16/2019 Assessment & Plan (05/14/2025 2:29 PM EDT): - Lab Results Component Value Date HGBA1C 6.1 (A) 05/14/2025 HGBA1C 5.8 03/02/2025 HGBA1C 6.5 (A) 11/25/2024 - Lab Results Component Value Date MICROALBUR 19.0 06/20/2024 CREATININE 0.59 05/14/2025 -Changes: I will add patient's regimen Mounjaro 2.5 mg weekly, continue with metformin and insulin as prescribed - Diabetic eye exam: Pending - Diabetic foot exam: Pending - Continue lifestyle modifications - Continue current medications - Follow up: 3 months Assessment & Plan (03/02/2025 4:41 PM EDT): [...] 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 (new medication [...] Description 05/14/2025 11:30 AM EDT Office Visit [facility] [address] [place] [phone] Bárbara Rader MD Recurrent UTI (Primary Dx); Type 2 diabetes mellitus with other specified complication, without long-term current use of insulin ([facility]); Chronic pain of right ankle 05/14/2025 Telephone [facility] MED[facility] [address] [place] [address] Bárbara Rader MD Durable Medical Equipment (DME RX Bariatric Commode(CCA)) 05/14/2025 Travel 05/13/2025 Telephone [facility] [address] [place] [address] Bárbara Rader MD chart prep 05/01/2025 Refill [facility] [address] [place] [address] Bárbara Rader MD 04/28/2025 9:20 AM EDT Office Visit [facility] OPTOMETRY [address] [place] [address] Abigail James, OD Type 2 diabetes mellitus with other specified complication, without long-term current use of insulin ([facility]) (Primary Dx) 04/28/2025 Travel 04/27/2025 Travel 03/21/2025 Refill [facility] [address] [place], [place] [phone] Carmine Patel MD 03/06/2025 Orders Only GENERIC EXTERNAL DATA DEPARTMENT Provider, Generic External Data from Last 3 Months Immunizations Immunization Administration Dates Next Due Influenza High-dose Quadriva lent Preservative Free 06/18/2023,06/09/2022,07/07/2021 Influenza injectable quadriv alent IIV4 with preservative 07/27/2016 Influenza, High Dose Seasona l, Preservative Free 06/03/2024,07/16/2019,07/31/2018,06/06 Influenza, IIV3, injectable 07/27/2014, 3,07/05/2011 Influenza, Split (incl. efren fied surface antigen) 07/19/2012 Influenza, intradermal, quad rivalent, preservative free 05/15/2016 Influenza, seasonal, injecta ble, preservative free 05/28/2020 Novel Asvnwmsoa-[id number], all formulations 05/15/2016 Pneumococcal Conjugate PCV 13 [...] Orientation Straight 05/13/2025 3: 34 PM EDT Last Filed Vital Signs Vital [...] Visit [facility] [address] [place] [address] Bárbara Rader MD [address] [place] [address] 10/13/2025 1:30 PM EST Office Visit [facility] OPTOMETRY [address] [place], [place] [phone] Abigail James, OD [address] [place] [address] Health Maintenance Due Date Last Done Comments Hepatitis A Vaccines (1 of 2 - Risk 2-dose series) 1965 Hepatitis B Vaccines (1 of 3 - Risk 3-dose series) 2006 RSV Patients and Patients Aged 60 years or older (1 - 1-dose 75+ series) 2021 DTaP/Tdap/Td Vaccines (2 - Td or Tdap) 07/19/2022 07/19/2012 Eye Exam 08/22/2024 08/22/2023 COVID-19 Vaccine ( season) 2025 07/31/2022, 02/09/2022, 08/31/2021, Additional history exists Influenza Vaccine (#1) 2025 , 06/18/2023, 06/09/2022, Additional history exists Diabetes: Foot Exam 06/03/2025 06/03/2024 Diabetes: Urine Protein Screening 06/20/2025 06/20/2024, 08/17/2020 Diabetes: Hemoglobin A1C 11/14/2025 025, 03/02/2025, 11/25/2024, Additional history exists Alcohol/Substance Use Screening 11/25/2025 11/25/2024 SDOH Screening 02/20/2026 02/20/2025 Depression Screening 05/14/2026 05/14/2025, 05/14/20 25 Lipid Panel 05/14/2026 05/14/2025, 12/2023, 08/17/2020 Tobacco Screening 05/24/2026 05/24/2025 Pneumococcal Vaccine: 50+ Years Completed 05/03/2015, 07/27/2014, [...] Procedure Name Priority Date/Time Associated Diagnosis Comments COMPREHENSIVE METABOLIC PANEL Routine 05/14/2025 12:11 PM EDT Type 2 diabetes mellitus with other specified complication, without long-term current use of insulin ([facility]) LIPID PANEL, STANDARD Routine 05/14/2025 12:11 PM EDT Type 2 diabetes mellitus with other specified complication, without long-term current use of insulin ([facility]) POCT GLYCATED HEMOGLOBIN, TOTAL Routine 05/14/2025 11:44 AM EDT Type 2 diabetes mellitus with other specified complication, without long-term current use of insulin (CMS/HCC) POCT GLUCOSE Routine 05/14/2025 11:43 AM EDT Type 2 diabetes mellitus with other specified complication, without long-term current use of insulin (CMS/HCC) BI MAMMOGRAM SCREENING TOMOSYNTHESIS BILATERAL Routine 03/24/2025 10:47 AM EDT URINALYSIS, COMPLETE Routine 03/06/2025 9:14 AM EDT CULTURE, URINE, ROUTINE Routine 03/06/2025 9:14 AM EDT HEPATITIS C AB W/REFL TO HCV RNA, [...] Recently Relevant to Health Maintenance Results * Lipid Panel, Standard (05/14/2025 12:11 PM EDT) Triglycerides 131 <150 mg/dL [facility] Comment:Desirable Triglyceri de: less than 150 mg/dLBorderline High Triglyceride 150-199 mg/dLHigh Triglyceride: 200-499 mg/dLVery High Triglyceride: greater than or equal to 5OO mg/dL Cholesterol 139 <200 mg/dL [facility] Comment:Desirable Cholestero l: less than 200 mg/dLBorderline High Cholesterol: 200-239 mg/dLHigh Cholesterol: greater than 239 mg/dL LDL Cholesterol Calculated 63 <100 mg/dL [facility] Comment:Desirable LDL: less than 100 mg/dLNear Optimal/Above Optimal LDL: 110- 129 mg/dLBorderline High LDL: 130-159 mg/dLHigh LDL: 160-189 mg/dLVery High LDL: greater than or equal to 190 mg/dL HDL Cholesterol 50 >40 mg/dL [facility] Comment:Desirable HDL: great er than 40 mg/dL Note: This HDL assay may give artificially low results in patients with liver disease. Blood Venous blood specimen / Unknown 05/14/2025 12:11 PM EDT 05/14/2025 1:12 PM EDT Bárbara Raymundo MD LAB BLOOD ORDERABLES Final Result [facility] [address] [place] [phone] * (ABNORMAL) Comprehensive Metabolic Panel (05/14/2025 12:11 PM EDT) Sodium 139 135 - 145 mmol/L [facility] Potassium 4.1 3.3 - 5.1 mmol/L [facility] Comment:Slight Hemolysis.Int erpret result with caution. Chloride 96 96 - 108 mmol/L [facility] Carbon Dioxide 35(H) 22 - 29 mmol/L [facility] Anion Gap 12 12 - 20 [facility] Urea Nitrogen (BUN) 12 9 - 16 mg/dL [facility] Creatinine, Serum 0.59 0.5 - 1.4 mg/dL [facility] Estimated Glomerular Filt Rate >60 [facility] Comment:Chronic Kidney Disea se: Estimated GFR < 60 mL/min/[id number] Kidney Disease: Estimated GFR < 15 mL/min/1.73m2 Glucose 98 60 - 115 mg/dL [facility] Calcium 8.8 8.4 - 10.2 mg/dL [facility] Bilirubin, Total 0.2 0.0 - 1.0 mg/dL [facility] Aspartate Amino Transferase 36(H) 5 - 31 U/L [facility] Comment:Slight Hemolysis.Int erpret result with caution. Alanine Aminotransferase 9 0 - 31 U/L [facility] Total Protein 7.2 6.5 - 8.0 g/dL [facility] Albumin Level 3.9 3.5 - 5.0 g/dL [facility] Alkaline Phosphatase 49 39 - 117 U/L [facility] Blood Venous blood specimen / Unknown 05/14/2025 12:11 PM EDT 05/14/2025 1:12 PM EDT Bárbara Raymundo MD LAB BLOOD ORDERABLES Final Result [facility] [address] [place] [phone] * (ABNORMAL) POCT HGB A1C (05/14/2025 11:44 [...] AM EDT Narrative 04/06/2025 6:28 PM EDT [facility] [address] [place] [address] Mammography Report Signed Patient: Magalie Solis MR#: [id number] : 1945 Acct:[id number] Age/Sex: 79 / F ADM Date: 03/24/25 Loc: HO.MAMMDesire Attending Dr: Bárbara Raymundo MD Ordering Physician: Bárbara Rader MD Results: 1Negative Date of Service: 03/24/25 Follow Up: 1 Year From Orig inal Mammogram Procedure(s): MM tomosynthesis screening BI Accession Number(s): [id number] cc: Bárbara Rader MD EXAMINATION: MM SCREENING [...] Ulysses Nicholson MD 04/06/2025 06:25 PM EDT Dictated By: Ulysses Nicholson MD Signed By: <Electronically signed by Ulysses Nicholson MD in OV> 04/06/25 1825 DD/ 1047 TD/TT: 03/24/25 1130 Rotary Envelope Machine Operator: Procedure Note Donotuseinterpreter, Image - 04/06/2025 [facility] [address] [place] [address] Mammography Report Signed Patient: Magalie Solis MMR#: [id number] : 6Acct:[id number] Age/Sex: 79 / FADM Date: 03/24/25 Loc: HO.MAMMO Attending Dr: Bárbara Raymundo MD Ordering Physician: Bárbara Rader MDResults: 1Negative Date of Service: 03/24/25Follow Up: 1 Year From Orig inal Mammogram Procedure(s): MM tomosynthesis screening BI Accession Number(s): [id number] cc: Bárbara Rader MD EXAMINATION: MM SCREENING [...] Nicholson MD 04/06/2025 06:25 PM EDT RP Dictated By: Ulysses Nicholson MD Signed By: <Electronically signed by Ulysses Nicholson MD in OV> 04/06/25 1825 DD/ 1047 TD/TT: 03/24/25 1130 Rotary Envelope Machine Operator: us Bárbara Raymundo MD IMG BI PROCEDURES Fin al Result * (ABNORMAL) Urinalysis Complete (03/06/2025 9:14 AM EDT) Color Urine Yellow [facility] Appearance Urine Clear [facility] PH 6.0 5.0 - 9.0 [facility] Glucose Urine UA Negative Negative mg/dL [facility] Urine Blood Negative Negative [facility] Specific [place] - Urine 1.010 1.005 - 1.025 [facility] Urine Protein Negative Neg-Trace mg/dL [facility] Urine Ketones Negative Negative mg/dL [facility] Nitrite Urine Negative Negative [facility] Leukocyte Esterase Urine Moderate (2+)(A) Negative [facility] RBC Urine 0-2 0 - 2 /HPF [facility] Urine WBC 21-50(A) 0 - 5 /HPF [facility] Urine Squamous Epithelial Cell 3-5 0 - 2 /HPF [facility] Urine Bacteria None Seen None Seen [facility] Hyaline Casts, Urine 0-2 0 - 2 /LPF [facility] 03/06/2025 9:1 4 AM EDT 03/06/2025 11:25 AM EDT us Generic External Data Provider LAB URINE ORDERAB LES Final Result [facility] [address] [place] [phone] * Culture, Urine, Routine (03/06/2025 9:14 AM EDT) Urine Urine specimen obtained by clean catch procedure / Unknown 03/06/2025 9:14 AM EDT 03/06/2025 11:25 AM EDT Comment:UACC Narrative [facility] - 03/07/2025 11:21 AM EDT Urine Culture Report Result Urine Culture 10,000 to 50,000 cfu/ml Urine Culture Mixed bacterial stef characteristic of Urine Culture urogenital contamination. Specimen Source: Urine clean catch Generic External Data Provider LAB MICROBIOLOGY - GENERAL ORDERABLES Final Result Performing Organization Address [facility] Co de Phone Number [facility] [address] [place] [phone] * Hepatitis C Antibody with Reflex to HCV, RNA, Quantitative, Real-Time PCR (06/20/2024 2:54 PM EDT) Hepatitis C Antibody Nonreactive Nonreactive [facility] Comment:Antibodies to HCV no t detected; does not exclude early acuteHCV infection. Blood Venous blood specimen / Unknown 06/20/2024 2:54 PM EDT 06/20/2024 2:54 PM EDT Carmine Patel MD LAB BLOOD ORDERABLES Final Result Performing Organization Address [facility] Co de Phone Number [facility] [address] [place] [phone] * (ABNORMAL) Albumin, Random Urine W/Creatinine (06/20/2024 1:00 PM EDT) Creatinine, Urine 35.87 mg/dL [facility] Microalbumin Urine 19.0 mg/L H [facility] Microalbum Creatinine Ratio Ur 52.9(H) <30 ug/mg cr [facility] Comment:Albumin/Creatinine R atio Reference Ranges: Normal: < 30 ug/mg creatinine Microalbuminuria: 30 - 300 ug/mg creatinineClinical Albuminuria: > 300 ug/mg creatinine Urine (Urine, Random) 06/20/2024 1:00 PM EDT 06/20/2024 3:09 PM EDT us Carmine Patel MD LAB URINE ORDERABLES Final Result [facility] [address] [place] [phone] from Last 3 Months or Most Recently Relevant to Health Maintenance Insurance [facility] [employer] OPT[employer] (HMO D-SNP) ZUHAIR ROBLERO [id number] [place] [phone] Care Teams Assistant Professor Of Psychology Relationship Specialty Start Date End Date Bárbara Rader MD [address] [place] [phone] PCP - General Internal Medicine 07/16/24 Luke Gayle PharmD Pharmacist Internal Medicine 09/04/22 [facility] 11/17/24
--- OUTSIDE RECORDS SUMMARY | 2025-06-05 12:22 | XMS_ITS | Encounter Summary ---
Author Organization [facility] Address [address] [address] [place] [address] Care Team Providers Care Leather Belt Maker Name Role Phone Carmine Patel MD Primary Care Provider [phone]- [phone] Luke Gayle PharmD Unavailable Unavail able Bárbara Rader MD Primary Care Provide r Encounter Details Date Type Department Care Team (Latest Contact Info) Description 06/26/2019 Abstract [facility] CONVERSIONS Dental, Provider, DDS Social [...] Office Visit [facility] MEDICINE [address] [place] [address] Bárbara Rader MD [address] [place] [address] 10/13/2025 1:30 PM EST Office Visit [facility] OPTOMETRY [address] [place] [address] Abigail James, OD [address] [place] [address] documented as of this encounter Visit Diagnoses Not on filedocumented in this encounter Care Teams Leather Belt Maker Relationship Specialty Start Date End Date Carmine Patel MD [address] [place] [address] PCP - General Internal Medicine 11/16/15 07/15/24 Bárbara Rader MD [address] [place] [phone] PCP - General Internal Medicine 07/16/24 Luke Gayle PharmD [address] [place] [address] Pharmacist Internal Medicine 09/04/22 [facility] 07/10/24 11/19/24 [facility] 11/17/24 documented as of this encounter
--- OUTSIDE RECORDS SUMMARY | 2025-06-05 12:22 | XMS_ITS | Encounter Summary ---
Author Organization [facility] Address [address] [facility] [address] [place] [address] Care Team Providers Care Icer Machine Operator Name Role Phone Carmine Patel MD Primary Care Provider [phone]- [phone] Luke Gayle PharmD Unavailable Unavail able Bárbara Rader MD Primary Care Provide r Encounter Details Date Type Department Care Team (Late st Contact Info) Description 06/11/[address] [facility] [address] [place], [place] [phone] Carmine Patel MD [address] [place], [place] [phone] Pruritus (Primary Dx) Social History Tobacco Use [...] Description 08/11/2025 11:00 AM EST Office Visit [facility] MED[facility] [address] [place] [address] Bárbara Rader MD [address] [place] [address] 10/13/2025 1:30 PM EST Office Visit [facility] OPTOMETRY [address] [place] [address] Abigail James, OD [address] [place] [address] documented as of this encounter Goals Goal [...] documented as of this encounter Care Teams Icer Machine Operator Relationship Specialty Start Date End Date Carmine Patel MD [address] [place] [address] PCP - General Internal Medicine 11/16/15 07/15/24 Bárbara Rader MD [address] [place] [phone] PCP - General Internal Medicine 07/16/24 Luke Gayle PharmD [address] [place] [phone] Pharmacist Internal Medicine 09/04/22 [facility] 07/10/24 11/19/24 [facility] 11/17/24 documented as of this encounter
--- OUTSIDE RECORDS SUMMARY | 2025-06-05 12:22 | XMS_ITS | Encounter Summary ---
Author Organization [employer] Address [address] [facility] [address] [place] [address] Care Team Providers Care Rn Clinical Documentation Specialist Name Role Phone Carmine Patel MD Primary Care Provider [phone] Luke Gayle PharmD Unavailable Unavail able Bárbara Rader MD Primary Care Provide r Reason for Visit * Reason Onset Date Comments FYI 02/15/2024 Encounter Details Date Type Department Care Team ([facility] st Contact Info) Description 02/15/2024 Telephone [facility] PEDS [address] [place], [place] [phone] Carmine Patel MD [address] [place], [place] [phone] FYI Social History Tobacco Use Types Packs/Day [...] - 02/15/2024 3:07 PM EDT Tc from [facility] with Tiffany calling to report pt has been discharged as of today from home PT. documented in this encounter Plan of Treatment Upcoming Encounters Date Type Department Care Team (Late st Contact Info) Description 08/11/2025 11:00 AM EST Office Visit [facility] MEDICINE [address] [place] [address] Bárbara Rader MD [address] [place] [address] 10/13/2025 1:30 PM EST Office Visit [facility] OPTOMETRY [address] [place] [address] Abigail James, OD [address] [place] [address] documented as of this encounter Goals Goal [...] documented as of this encounter Care Teams Rn Clinical Documentation Specialist Relationship Specialty Start Date End Date Carmine Patel MD [address] [place] [address] PCP - General Internal Medicine 11/16/15 07/15/24 Bárbara Rader MD [address] [place] [address] PCP - General Internal Medicine 07/16/24 Luke Gayle PharmD [address] [place] [address] Pharmacist Internal Medicine 09/04/22 [facility] 07/10/24 11/19/24 [facility] 11/17/24 documented as of this encounter
--- OUTSIDE RECORDS SUMMARY | 2025-06-05 12:22 | XMS_ITS | Encounter Summary ---
Author Organization [employer] Address [address] [facility] 7t [place] [address] Care Team Providers Care Elementary Tutor Name Role Phone Luke Gayle PharmD Unavailable Unavail able Bárbara Rader MD Primary Care Provide r Reason for Visit * Reason Comments Med Refill Encounter Details Date Type Department Care Team ([facility] st Contact Info) Description 12/15/2024 Refill [facility] MEDICINE [address] [place] [address] Carmine Patel MD [address] [place] [address] Social History Tobacco Use Types Packs/Day Years [...] AM EST Office Visit [facility] MEDICINE [address] [place] [address] Bárbara Rader MD [address] [place] [address] 10/13/2025 1:30 PM EST Office Visit [facility] OPTOMETRY [address] [place] [address] Abigail James, OD [address] [place] [address] documented as of this encounter Goals Goal [...] documented as of this encounter Care Teams Elementary Tutor Relationship Specialty Start Date End Date Bárbara Rader MD [address] [place] [address] PCP - General Internal Medicine 07/16/24 Luke Gyale, Shan Pharmacist Internal Medicine 09/04/22 [facility] 11/17/24 documented as of this encounter
--- OUTSIDE RECORDS SUMMARY | 2025-06-05 12:22 | XMS_ITS | Encounter Summary ---
Author Organization [employer] Address [address] [facility] 7t [place] [address] Care Team Providers Care Pool Servicer Name Role Phone Luke Gayle PharmD Unavailable Unavail able Bárbara Rader MD Primary Care Provide r Reason for Visit * Reason Comments Med Refill Encounter Details Date Type Department Care Team ([facility] st Contact Info) Description 11/04/2024 Refill [facility] MEDICINE [address] [place] [address] Carmine Patel MD [address] [place] [address] Epigastric pain Social History Tobacco Use Types [...] 11:00 AM EST Office Visit [facility] MEDICINE [address] [place] [address] Bárbara Raedr MD 230 [place] [address] 10/13/2025 1:30 PM EST Office Visit [facility] OPTOMETRY [address] [place] [address] Ajcob, Abigail, OD [address] [place] [address] documented as of this encounter Goals Goal [...] documented as of this encounter Care Teams Pool Servicer Relationship Specialty Start Date End Date Bárbara Rader MD [address] [place] [address] PCP - General Internal Medicine 07/16/24 Luke Gayle, Shan Pharmacist Internal Medicine 09/04/22 [facility] 07/10/24 11/19/24 [facility] 11/17/24 documented as of this encounter
--- OUTSIDE RECORDS SUMMARY | 2025-06-05 12:22 | XMS_ITS | Encounter Summary ---
Author Organization [employer] Address [address] [facility] 7t [place] [address] Care Team Providers Care Tax Collection Coordinator Name Role Phone Carmine Patel MD Primary Care Provider +1- [phone] Luke Gayle PharmD Unavailable Unavail able Bárbara Rader MD Primary Care Provide r Encounter Details Date Type Department Care Team (Late st Contact Info) Description 01/18/2024 Orders Only [facility] [address] [place], [place] [phone] Carmine Patel MD [address] [place], [place] [phone] Urinary incontinence, unspecified type (Primary Dx) Social [...] Description 08/11/2025 11:00 AM EST Office Visit [facility] MEDICINE 230 [place] [address] Bárbara Rader MD 230 [place] [address] 10/13/2025 1:30 PM EST Office Visit [facility] OPTOMETRY [address] [place] [address] Abigail James, SULAIMAN [address] [place] [address] documented as of this encounter Goals Goal [...] (06/20/2024 1:00 PM EDT) Color Urine Yellow [facility] Appearance Urine Cloudy [facility] PH 6.5 5.0 - 9.0 [facility] Glucose Urine UA Negative Negative mg/dL [facility] Urine Blood Trace(A) Negative [facility] Specific [place] - Urine 1.010 1.005 - 1.025 [facility] Urine Protein Negative Neg-Trace mg/dL [facility] Urine Ketones Negative Negative mg/dL [facility] Nitrite Urine Negative Negative [facility] Leukocyte Esterase Urine Large (3+)(A) Negative [facility] RBC Urine 0-2 0 - 2 /HPF [facility] Urine WBC >50(A) 0 - 5 /HPF [facility] Urine Squamous Epithelial Cell 0-2 0 - 2 /HPF [facility] Urine Bacteria 4+ None Seen [facility] Hyaline Casts, Urine 0-2 0 - 2 /LPF [facility] Urine 06/20/2024 1:00 PM EDT 06/20/2024 3:09 PM EDT Narrative [facility] - 06/20/2024 3:25 PM EDT Urine, Clean Catch us Carmine Patel MD LAB URINE ORDERABLES Final Result [facility] [address] [place] [address] [phone] documented in this encounter Visit Diagnoses Diagnosis Urinary incontinence, unspecified type- Primary documented in this encounter Additional Health Concerns Assessment Noted Time PHQ-9 Depression Total Score: 0 10/09/19 23 11:12 AM EST documented as of this encounter Care Teams Tax Collection Coordinator Relationship Specialty Start Date End Date Carmine Patel MD [address] [place] [address] PCP - General Internal Medicine 11/16/15 07/15/24 Bárbara Rader MD [address] [place] [address] PCP - General Internal Medicine 07/16/24 Luke Gayle PharmD [address] [place] [address] Pharmacist Internal Medicine 09/04/22 [facility] 07/10/24 11/19/24 [facility] 11/17/24 documented as of this encounter
--- OUTSIDE RECORDS SUMMARY | 2025-06-05 12:22 | XMS_ITS | Encounter Summary ---
Author Organization [employer] Address [address] [facility] 7t [place] [address] Care Team Providers Care Front Maker Lockstitch Name Role Phone Carmine Patel MD Primary Care Provider +1- [phone] Luke Gayle PharmD Unavailable Unavail able Bárbara Rader MD Primary Care Provide r Encounter Details Date Type Department Care Team (Late st Contact Info) Description 06/26/2024 Orders Only [facility] [address] [place], [place] [phone] Carmine Patel MD 505 [place], [place] [phone] Burning sensation (Primary Dx) Social History Tobacco [...] 08/11/2025 11:00 AM EST Office Visit [facility] MEDICINE [address] [place] [address] Bárbara Rader MD [address] [place] [address] 10/13/2025 1:30 PM EST Office Visit [facility] OPTOMETRY [address] [place] [address] Abigail James, OD [address] [place] [address] documented as of this encounter Goals Goal [...] documented as of this encounter Care Teams Front Maker Lockstitch Relationship Specialty Start Date End Date Carmine Patel MD [address] [place] [address] PCP - General Internal Medicine 11/16/15 07/15/24 Bárbara Rader MD [address] [place] [address] PCP - General Internal Medicine 07/16/24 Luke Gayle PharmD [address] [place] [address] Pharmacist Internal Medicine 09/04/22 [facility] 07/10/24 11/19/24 [facility] 11/17/24 documented as of this encounter
--- OUTSIDE RECORDS SUMMARY | 2025-06-05 12:22 | XMS_ITS | Encounter Summary ---
Author Organization [employer] Address [address] [facility] [address] [place] [address] Care Team Providers Care Wool And Pelt Grader Name Role Phone Carmine Patel MD Primary Care Provider +1- [phone] Luke Gayle PharmD Unavailable Unavail able Bárbara Rader MD Primary Care Provide r Reason for Visit * Reason Onset Date Comments Call Back Request 02/06/2024 Encounter Details Date Type Department Care Team (Late st Contact Info) Description 02/06/2024 Telephone [facility] MEDICINE [address] [place] [address] Carmine Patel MD [address] [place] [address] Call Back Request Social History Tobacco Use [...] to see if they are ready for orange picker. Advised son on PCP recommendations for [...] and nothing is happening Please contact at [phone] documented in this encounter Plan of Treatment Upcoming Encounters Date Type Department Care Team (Late st Contact Info) Description 08/11/2025 11:00 AM EST Office Visit [facility] MEDICINE [address] [place] [phone] Bárbara Rader MD [address] [place] [address] 10/13/2025 1:30 PM EST Office Visit [facility] OPTOMETRY [address] [place], [place] [phone] Abigail James, OD [address] [place] [address] documented as of this encounter Goals Goal [...] documented as of this encounter Care Teams Wool And Pelt Grader Relationship Specialty Start Date End Date Carmine Patel MD [address] [place] [address] PCP - General Internal Medicine 11/16/15 07/15/24 Bárbara Rader MD [address] [place], [place] [phone] PCP - General Internal Medicine 07/16/24 Luke Gayle, PharmD [address] [place] [address] Pharmacist Internal Medicine 09/04/22 [facility] 07/10/24 11/19/24 [facility] 11/17/24 documented as of this encounter
--- OUTSIDE RECORDS SUMMARY | 2025-06-05 12:22 | XMS_ITS | Encounter Summary ---
Author Organization [employer] Address [address] [facility] 7t [place] [address] Care Team Providers Care Fire Marshal Refinery Name Role Phone Luke Gayle PharmD Unavailable Unavail able Bárbara Rader MD Primary Care Provide r Reason for Visit * Reason Onset Date Comments Durable Medical Equipment 09/03/2024 Encounter Details Date Type Department Care Team ([facility] st Contact Info) Description 09/03/2024 Telephone [facility] MEDICINE [address] [place] [address] Bárbara Rader MD [address] [place], [place] [phone] Durable Medical Equipment Social History Tobacco Use [...] - 09/03/2024 1:40 PM EST Tc from [facility] requesting a large commode. States the one pt has is to small. Anyfurther questions may contact phone # [phone]. documented in this encounter Plan of Treatment Upcoming Encounters Date Type Department Care Team ([facility] st Contact Info) Description 08/11/2025 11:00 AM EST Office Visit [facility] MEDICINE [address] [place] [address] Bárbara Rader MD [address] [place] [address] 10/13/2025 1:30 PM EST Office Visit [facility] OPTOMETRY [address] [place] [address] Abigail James, OD [address] [place] [address] documented as of this encounter Goals Goal [...] as of this encounter Care Teams Fire Marshal Refinery Relationship Specialty Start Date End Date Bárbara Rader MD [address] [place] [phone] PCP - General Internal Medicine 07/16/24 Luke Gayle, PharmD Pharmacist Internal Medicine 09/04/22 [facility] 07/10/24 11/19/24 [facility] 11/17/24 documented as of this encounter
[2025-06-05 13:30] LABS: Appearance Urine Cloudy; Glucose Urine UA Negative (Negative); PH 8.5 (5.0-9.0); Specific Gravity - Urine 1.010 (1.005-1.025); UMIC TRIGGER UACC YES
[2025-06-05 13:37] LABS: UACC Culture Trigger YES
[2025-06-05 14:16] LABS: Microalbum/Creatinine Ratio Ur 33.1 ug/mg cr (<30)
== END 2025-06-05 12:00 | disposition home or self-care (01) ==
LOC: HO.HHCL 11:59
PROVIDERS: PCP Internal Medicine; Visit Provider Internal Medicine
DX: E11.69 Type 2 diabetes mellitus with other specified complication (principal); R39.9 Unspecified symptoms and signs involving the genitourinary system
CPT/HCPCS: 81001; 82043; 82570; 87086; 87088; 87186

== ENCOUNTER 2025-07-04 12:35 | Inpatient (IN) | payer OTHER, SELFPAY ==
--- NOTE | ~2025-07-04 | US_ITS ---
CLINICAL HISTORY: PAIN; Rule out DVT Right lower extremity duplex venous Doppler Comparison: US/SR - US LOWER EXTREMITY VEINS LIMITED FOLLOW UP LEFT - 01/11/24 12:49 EDT Technique: Grayscale/Color/Duplex Doppler sonographic evaluation of the deep venous system within the right lower extremity. Findings: Right lower extremity Common femoral vein: Patent CFV/GSV junction: Patent Femoral vein: Patent Popliteal vein: Patent Infrapopliteal veins: Patent where seen Soft tissue: No focal abnormality Impression: 1. Negative for right lower extremity DVT. 2. No Minaya's cyst This document has been electronically signed by: Rob Rubalcava MD on 07/05/2025 11:32:16
--- NOTE | ~2025-07-04 | XR_ITS ---
EXAMINATION: XR ANKLE 3 OR MORE VIEWS RIGHT, XR FOOT 3 OR MORE VIEWS RIGHT HISTORY: Foot pain COMPARISON: Comparison is made with the prior examination of the right ankle dated 04/21/2024 and the prior examination of the right foot dated 11/13/2023. FINDINGS: Six views of the right foot and ankle are submitted. The bones are osteopenic. There is an old healed fracture deformity of the distal fibula. No acute fracture is seen. There is persistent lateral subluxation of the talus with respect to the tibia and widening of the medial aspect of the ankle mortise. There is mild degenerative change of the 1st MTP joint. There is moderate intertarsal osteoarthritis. The soft tissues are unremarkable. XR/XR foot RT min 3V IMPRESSION: Persistent lateral subluxation of the talus with respect to the tibia and widening of the medial aspect of the ankle mortise. Moderate degenerative changes as described. Electronically signed by: Jeovany Mckeon MD 07/07/2025 11:07 AM EDT
--- NOTE | ~2025-07-04 | XR_ITS ---
EXAMINATION: XR ANKLE 3 OR MORE VIEWS RIGHT, XR FOOT 3 OR MORE VIEWS RIGHT HISTORY: Foot pain COMPARISON: Comparison is made with the prior examination of the right ankle dated 04/21/2024 and the prior examination of the right foot dated 11/13/2023. FINDINGS: Six views of the right foot and ankle are submitted. The bones are osteopenic. There is an old healed fracture deformity of the distal fibula. No acute fracture is seen. There is persistent lateral subluxation of the talus with respect to the tibia and widening of the medial aspect of the ankle mortise. There is mild degenerative change of the 1st MTP joint. There is moderate intertarsal osteoarthritis. The soft tissues are unremarkable. XR/XR ankle RT min 3V IMPRESSION: Persistent lateral subluxation of the talus with respect to the tibia and widening of the medial aspect of the ankle mortise. Moderate degenerative changes as described. Electronically signed by: Jeovany Mckeon MD 07/07/2025 11:07 AM EDT
--- NOTE | ~2025-07-04 | XR_ITS ---
CLINICAL HISTORY: SOB Exam: AP portable chest x-ray. Comparison: May 08, 2025. Findings: Patient is slightly rotated on this study. Cardiac silhouette is mildly enlarged. Perihilar and basilar interstitial markings are prominent. Persistent right hilar fullness. Likely small bilateral pleural effusions. Impression: Findings most characteristic of volume overload. Bilateral bronchitis/ bronchiolitis could give a similar appearance. This document has been electronically signed by: Kasi Zuleta MD on 07/04/2025 16:18:57
--- NOTE | ~2025-07-04 | CT_ITS ---
CLINICAL HISTORY: tachyneic CT angiography chest with contrast. 3D Postprocessing. Comparison: None provided Findings: The heart size is normal. RV/LV ratio is normal. Unremarkable thoracic aorta and great vessels. No aneurysm. No main or segmental pulmonary emboli identified. The visualized thyroid and mediastinum are unremarkable. The lungs are under expanded. Right upper lobe patchy areas centrilobular ground-glass opacities. Bibasilar dependent subsegmental atelectasis. The visualized upper abdomen is unremarkable. The bones are intact. Lumbar dextroscoliosis. Diffuse idiopathic skeletal hyperostosis Mild osteopenia. IMPRESSION: 1. Right upper lobe pneumonia. Short-term follow-up is suggested. 2. Bibasilar dependent subsegmental atelectasis. 3. No main or segmental pulmonary emboli identified. This document has been electronically signed by: Lenard Garcia MD on 07/04/2025 20:05:48
[2025-07-04 13:04] VITALS: BP 110/48; BP 137/67; PULSE 67; PULSE 68; RESP 25; TEMP 37.1; O2SAT 95; O2SAT 97; BMI 45.6
--- NOTE | 2025-07-04 14:07 | ED.GENADULT ---
HPI - General Adult General Chief complaint: General Medical Stated complaint: GEN PAIN,RECENT UTI,HOME O2 2LPM PER EMS Time Seen by Provider: 07/04/25 14:06 Source: patient, EMS, RN notes reviewed and educational sign language interpreter Mode of arrival: EMS Limitations: language barrier History of Present Illness ED Provider: Tammie Prees PA-C HPI narrative: This is a 79-year-old divehi speaking female with a PMH significant for chronic hypoxic and hypercapnic respiratory failure /obesity hypoventilation syndrome on home 2L O2, pulmonary hypertension, HFpEF, insulin-dependent type 2 diabetes, HTN, HLD, GERD, and NICO on CPAP who presents to the ED via EMS from home with concerns for generalized pain and swelling in BL ankles. Patient reports that over the last 2 weeks she has had body aches, chills, increased shortness for breath and chest pain. She reports that the symptoms have been constant. She denies any fevers, chills, abdominal pain, nausea, vomiting or diarrhea. She does report that she has had urinary frequency, urgency, dysuria. MD complaint: SOB, body aches Relieving factors: none Exacerbating factors: none Associated symptoms: denies other symptoms Treatments prior to arrival: none Related Data Home Medications ?Medication ?Instructions ?Recorded ?Confirmed lancets 33 gauge (TRUEplus Lancets) #100 ea 09/20/21 02/26/25 furosemide 40 mg tablet 40 mg PO DAILY 05/11/23 07/05/25 albuterol sulfate 90 mcg/actuation 2 puff inhalation Q4H PRN Wheezing 11/02/23 07/05/25 aerosol inhaler ergocalciferol (vitamin D2) 1,250 1,250 mcg PO MO 11/02/23 07/05/25 mcg (50,000 unit) capsule famotidine 20 mg tablet 20 mg PO BID 11/02/23 07/05/25 pravastatin 40 mg tablet 40 mg PO BEDTIME 11/02/23 07/05/25 albuterol sulfate 2.5 mg/3 mL 2.5 mg inhalation Q6H PRN 05/04/24 07/05/25 (0.083 %) solution for nebulization Shortness Of Breath Or Wheezing pantoprazole 20 mg tablet,delayed 20 mg PO DAILY@0630 05/04/24 07/05/25 release insulin lispro 100 unit/mL 5 unit subcut BIDWM 08/06/24 07/05/25 subcutaneous pen (Humalog KwikPen (U-100) Insulin) ondansetron 4 mg disintegrating 4 - 8 mg PO Q8H PRN Nausea And 01/26/25 07/05/25 tablet Vomiting carvedilol 12.5 mg tablet 12.5 mg PO BIDWM 02/08/25 07/05/25 ketotifen fumarate 0.025 % (0.035 1 drp ophthalmic (eye) Q12H PRN 02/08/25 07/05/25 %) eye drops Allergy Symptoms cetirizine 10 mg tablet 10 mg PO DAILY PRN allergies 02/23/25 07/05/25 metformin 500 mg tablet,extended 1,000 mg PO DAILY@1700 07/05/25 07/05/25 release 24 hr nitrofurantoin 1 cap PO BID 07/05/25 07/05/25 monohydrate/macrocrystals 100 mg capsule Previous Rx's ?Medication ?Instructions ?Recorded insulin glargine 100 unit/mL 20 unit (0.2 mL) subcut BEDTIME 11/15/23 subcutaneous solution (Lantus #10 mL U-100 Insulin) losartan 50 mg tablet 50 mg PO BID #120 tabs 11/24/24 hydrocortisone 1 % topical cream 1 appl topical BID PRN rash #28.35 01/20/25 grams amlodipine 2.5 mg tablet 2.5 mg PO DAILY #30 tabs 02/23/25 Allergies Allergy/AdvReac Type Severity Reaction Status Date / Time No Known Allergies (No Known Allergy Verified 07/04/25 13:07 Allergies*) Review of Systems Review of Systems: Constitutional : No Fever, + Chills ENT/Mouth : No sore throat, No Rhinorrhea Eyes: No Eye Pain, No Swelling, No Redness Cardiovascular : No Chest Pain, No SOB Respiratory : No Cough, No Sputum Gastrointestinal : No Nausea, No Vomiting, No Diarrhea, No abdominal Pain Genitourinary : No Dysuria, No Hematuria Musculoskeletal : No joint pain, No Myalgias, No Joint Swelling Skin : No Skin Lesions Neuro : No Weakness, No Numbness, No Headache All other systems reviewed and are negative Yes all other systems are reviewed and are negative Constitutional: Constitutional: Reports as per [facility] Past Medical History Attestation statement: The following information was validated with the patient. Medical History Unspecified urinary incontinence NICO (obstructive sleep apnea) CHF (congestive heart failure) 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 indication of end stage renal disease in patient 6 to 64 years of age Lymphadenopathy Abdominal pain Bursitis of right hip Osteoarthritis of right hip Restrictive ventilatory defect Dyspnea on exertion Varicose veins of right lower extremity with inflammation Pneumonitis Pulmonary hypertension Hypertensive cardiovascular disease Acute hypoxic on chronic hypercapnic respiratory failure Acute on chronic respiratory failure with hypoxemia Obesity hypoventilation syndrome GERD (gastroesophageal reflux disease) Hypertension Diabetes mellitus COPD (chronic obstructive pulmonary disease) Surgical History S/P laparoscopic cholecystectomy (07/14/21) Family History Family History Mother Diabetes Social History Social History Household Members: Other Household Members Other:: Cousin Housing: Unknown / Unable to assess Do you presently have visiting nurse or other home services: Yes Alcohol intake: never Patient Tobacco Use Status: Former Tobacco user Tobacco use type: Cigarette Years Smoked: 20 Advance Directives Date on File: 02/22/22 service: No Current occupational status: unemployed and disabled Physical Exam ED Vital Signs: Vital Signs - 24 hr 07/04/25 13:04 07/04/25 15:57 07/04/25 17:34 Temperature 98.7 F Pulse Rate 67 70 74 Respiratory Rate 25 H 28 H 30 H Blood Pressure 110/48 L 130/43 L 158/75 H Pulse Oximetry 95 99 94 Oxygen Delivery Method Nasal Cannula Nasal Cannula Nasal Cannula Oxygen Flow Rate 2 2 07/04/25 17:47 07/04/25 18:03 Temperature Pulse Rate 75 Respiratory Rate 24 H Blood Pressure 156/84 H Pulse Oximetry Oxygen Delivery Method Oxygen Flow Rate BMI result Body Mass Index 45.6 Const Other: tired appearing, but opens eyes spontaneously with questions. General: cooperative and comfortable Orientation/consciousness: patient oriented x3 Limitations: no limitations HENMT Head: Yes normal to inspection, Yes normocephalic and Yes atraumatic Ears: hearing grossly normal bilaterally General nose exam: Normal external nose present Face and sinus: Yes normal facial exam Mouth: Normal oral and palatal mucosa present, oropharynx normal and moist mucous membranes Throat: Yes posterior oropharynx normal Eyes General: appearance normal, both eyes and all related structures Eyelids: Yes eyelids normal Conjunctivae: conjunctivae normal Sclerae: sclerae normal Pupils: Equal, round and reactive pupils present EOM: EOMs intact bilaterally Neck Neck: Yes normal visual inspection, Yes full ROM and Yes no lymphadenopathy Lymphatic: no lymphadenopathy noted Chest Chest palpation & inspection: normal inspection of the chest Resp Other: diminished throughout. No crackles appreciated. Effort & Inspection: normal respiratory effort and able to speak in complete sentences Cardio Rate: regular rate Rhythm: regular rhythm Heart sounds: S1 normal heart sound present and S2 normal heart sound present GI Inspection: Yes normal to inspection Skin General skin exam: no rashes or lesions noted Trauma: no lacerations or abrasions Wounds: no wounds Neuro General: patient oriented x3 and moves all extremities Cranial nerves: Yes Equal, round and reactive pupils present Extrem Other: No peripheral edema, no calf tenderness General: Yes normal to inspection Right upper extremity: normal to inspection Left upper extremity: normal to inspection Right lower extremity: normal to inspection Left lower extremity: normal to inspection Medications Administered Generic Name Dose Route Start Last Admin Trade Name Freq PRN Reason Stop Dose Admin Acetaminophen 975 mg 07/04/25 21:37 07/05/25 19:44 Acetaminophen 325 Mg Tablet PO 975 mg Q6H PRN Administration Pain, Mild 1-3,fever,headache Amlodipine Besylate 2.5 mg 07/06/25 05:20 07/06/25 08:59 Amlodipine Besylate 2.5 Mg Tablet PO 2.5 mg DAILY TIMOTHY Administration Protocol Carvedilol 12.5 mg 07/06/25 08:00 07/06/25 16:50 Carvedilol 12.5 Mg Tablet PO 12.5 mg BIDWM TIMOTHY Administration Protocol Ceftriaxone Sodium 1 gm 07/05/25 21:00 07/06/25 20:41 Ceftriaxone Sodium 1 Gm Vial IVPUSH 1 gm Q24H TIMOTHY Administration Doxycycline Monohydrate 100 mg 07/06/25 21:00 07/06/25 20:40 Doxycycline Monohydrate 100 Mg Capsule PO 100 mg Q12H TIMOTHY Administration Ergocalciferol 1,250 mcg 07/06/25 10:03 07/06/25 11:27 Ergocalciferol (Vitamin D2) 1,250 Mcg Capsule PO 1,250 mcg MO TIMOTHY Administration Famotidine 20 mg 07/06/25 09:00 07/06/25 20:40 Famotidine 20 Mg Tablet PO 20 mg BID TIMOTHY Administration Furosemide 40 mg 07/06/25 09:00 07/06/25 08:58 Furosemide 40 Mg Tablet PO 40 mg DAILY TIMOTHY Administration Protocol Heparin Sodium (Porcine) 5,000 unit 07/05/25 09:00 07/06/25 20:42 Heparin Sodium,Porcine 5,000 Unit/Ml Vial SUBCUT 5,000 unit Q12H TIMOTHY Administration Insulin Glargine 20 unit 07/06/25 21:00 07/06/25 20:40 Insulin Glargine,Hum.Rec.Anlog 100 Unit/Ml 10 Ml Vial SUBCUT 20 unit BEDTIME TIMOTHY Administration Insulin Human Lispro 0 unit 07/04/25 21:40 07/06/25 20:40 Insulin Lispro 100 Unit/Ml 3 Ml Vial SUBCUT 4 unit QIDACHS TIMOTHY Administration Protocol Lidocaine 2 patch 07/06/25 09:30 07/06/25 09:45 Lidocaine 4 % Patch Adh..Patch TRANSDERMA 2 patch DAILY TIMOTHY Administration Protocol Losartan Potassium 50 mg 07/06/25 09:00 07/06/25 20:40 Losartan Potassium 50 Mg Tablet PO 50 mg BID TIMOTHY Administration Protocol Methylprednisolone Sodium Succinate 40 mg 07/05/25 06:00 07/06/25 05:45 Methylprednisolone Sod Succ 40 Mg/Ml Vial IVPUSH 40 mg Q24H TIMOTHY Administration Omeprazole 20 mg 07/06/25 06:30 07/06/25 05:45 Omeprazole 20 Mg Capsule.Dr PO 20 mg DAILY@0630 TIMOTHY Administration Pravastatin Sodium 40 mg 07/06/25 21:00 07/06/25 20:45 Pravastatin Sodium 40 Mg Tablet PO 40 mg BEDTIME TIMOTHY Administration Sodium Chloride 3 ml 07/05/25 00:00 07/06/25 20:45 0.9 % Sodium Chloride Flush 3 Ml Syringe IVFLUSH 3 ml QSHIFT TIMOTHY Administration Discontinued Medications Generic Name Dose Route Start Last Admin Trade Name Freq PRN Reason Stop Dose Admin Acetazolamide 250 mg 07/05/25 09:00 07/05/25 09:20 Acetazolamide 250 Mg Tablet PO 250 mg DAILY TIMOTHY Administration Acetazolamide 250 mg 07/05/25 13:00 07/06/25 12:51 Acetazolamide 250 Mg Tablet PO 250 mg QID TIMOTHY Administration Albuterol Sulfate 2.5 mg 07/04/25 17:57 07/04/25 18:05 Albuterol Sulfate (0.083%) 2.5 Mg/3 Ml Vial.Neb INHALE 07/04/25 17:58 2.5 mg ONCE ONE Administration Albuterol/Ipratropium 3 ml 07/05/25 09:55 07/05/25 11:30 Albuterol/Iprat 2.5/0.5mg 3 Ml Ampul.Neb INHALE 07/05/25 09:56 3 ml ONCE ONE Administration Ceftriaxone Sodium 1 gm 07/04/25 20:52 07/04/25 21:10 Ceftriaxone Sodium 1 Gm Vial IVPUSH 07/04/25 20:53 1 gm ONCE ONE Administration Furosemide 20 mg 07/04/25 17:37 07/04/25 17:47 Furosemide 20 Mg/2 Ml Vial IVPUSH 07/04/25 17:38 20 mg ONCE ONE Administration Protocol Acetaminophen 1,000 mg in 100 mls @ 400 mls/hr 07/04/25 18:15 07/04/25 19:34 Ofirmev IV 07/04/25 18:29 Infused ONCE ONE Infusion Doxycycline Hyclate 100 mg/ 250 mls @ 166.67 mls/hr 07/04/25 20:52 07/04/25 23:25 Sodium Chloride IV 07/04/25 22:21 Infused ONCE ONE Infusion Doxycycline Hyclate 100 mg/ 250 mls @ 166.67 mls/hr 07/05/25 09:00 07/06/25 09:16 Sodium Chloride IV Infused Q12H TIMOTHY Infusion Magnesium Sulfate 2 gm in 50 mls @ 50 mls/hr 07/05/25 09:55 07/05/25 13:18 Magnesium Sulfate/H2o IV 07/05/25 10:54 Not Given ONCE ONE Magnesium Sulfate 2 gm in 50 mls @ 50 mls/hr 07/05/25 15:00 07/05/25 16:08 Magnesium Sulfate/H2o IV 07/05/25 15:59 Infused ONCE ONE Infusion Iohexol 85 ml 07/04/25 18:47 07/04/25 18:48 Iohexol 350 Mg/Ml 100 Ml Infus..Btl IV 07/04/25 18:48 85 ml ONCE ONE Administration Procedures Procedure Narrative Procedure Narrative: Ultrasound IV Under real time ultrasound guidance a 20 gauge needle was placed in patient left forearm. Flushes well. No complication. Medical Decision Making Medical Decision Making [facility] Narrative: This is a 79-year-old female with a PMH significant for chronic hypoxic and hypercapnic respiratory failure /obesity hypoventilation syndrome on home 2L O2, pulmonary hypertension, HFpEF, insulin-dependent type 2 diabetes, HTN, HLD, GERD, and NICO on CPAP who presents to the ED via EMS from home with concerns for generalized body aches. On arrival, blood pressure 110/48, mildly tachypneic at 25 respirations per minute. Oxygen saturation 95% on 2 L nasal cannula. Differential diagnoses include CHF exacerbation, COVID, flu. Patient also reporting some urinary symptoms therefore will obtain UA to evaluate for urinary tract infection. Plan: Labs, EKG, chest x-ray, UA, EKG 1640 - Labs were finally able to be collected, significant delay as patient was a very difficult stick. She is resting comfortably, vital signs stable 1700 - received critical report of VBG with pH of 7.66. I also received the other parts of the VBG.Co2 - 35.9, O2 144.6, SO2 99, HCO3 - 39.7. Discussed with my attending Dr. Dobbins. Pt is tachypneic which is likely due to her symptoms. 5:33 PM 07/04/2025 (Tammie Peres PA-C): Discussed with my attending physician, recommending IV lasix, obtain CTA to rule out PE process, and updraft. 8:48 PM 07/04/2025 (Tammie Peres PA-C): CTA returns, patient has a right upper lobe pneumonia. As well as bibasilar dependent subsegmental atelectasis. Given this finding, patient needs to be admitted for medical management. It appears that the VBG did not have the HC03 resulted, I called the lab, they state that this was never run however I did get a report from the supervisor cytogenetic laboratory about this. We are repeating the VBG regardless. Discussed case with hospitalist, admission for pneumonia/CHF exacerbation Differential Diagnosis Differential Diagnoses: The differential diagnosis associated with the presentation includes see above Admission/Observation Consideration of admission/observation: Escalation of care including admission/observation considered Lab Data [facility] Lab Attestation statement: I reviewed the patient's lab results. No leukocytosis, patient with a normocytic anemia with an H&H of 10.3/34.3, chemistry revealing CO2 of 37, BUN of 7. BNP 774, troponin 5.8. Salicylate level less than 5. COVID and flu negative. 07/05/25 06:28 07/06/25 09:38 Labs: Lab Results 07/04/25 07/04/25 07/04/25 Range/Units 15:25 16:03 16:24 WBC 10.7 (4.8-10.8) X10*3/uL RBC 3.47 L (4.20-5.50) X10*6/uL Hgb 10.3 L (12.0-16.0) g/dl Hct 34.3 L (37.0-47.0) % MCV 98.8 H (80.0-98.0) fL MCH 29.7 (27.0-33.0) pg MCHC 30.0 L (31.0-35.0) g/dl RDW 11.9 (11.0-16.0) % Plt Count 116 L (160-400) X10*3/uL MPV 10.7 (9.4-12.3) fL Immature Gran % (Auto) 0.3 (0.0-0.4) % Neut % (Auto) 79.1 H (45-73) % Lymph % (Auto) 14.9 L (20-40) % [place] % (Auto) 4.5 (2-11) % Eos % (Auto) 1.0 (0-4) % Baso % (Auto) 0.2 (0-2) % Lymph # (Auto) 1.6 (1.2-4.9) X10*3/uL [place] # (Auto) 0.5 (0.1-1.2) X10*3/uL Eos # (Auto) 0.1 (0.0-0.4) X10*3/uL Baso # (Auto) 0.0 (0.0-0.2) X10*3/uL Abs Immat Gran (auto) 0.03 (0.00-0.03) X10*3/uL Absolute Neuts (auto) 8.5 H (2.0-8.3) x10*3/uL Absolute Nucleated RBC 0.000 (0.0-0.012) X10*3/uL Nucleated RBC % (auto) 0.0 (0.0-0.2) /100WBC Smear Tech's Comments VERIFIED VBG pH (7.32-7.43) VBG pCO2 mmHg VBG pO2 mmHg VBG HCO3 VBG O2 Saturation % VBG Base Excess mmol/L Sodium 140 (135-145) mmol/L Potassium 4.9 (3.3-5.1) mmol/L Chloride 96 (96-108) mmol/L Carbon Dioxide 37 H (22-29) mmol/L Anion Gap 12 (12-20) BUN 7 L (9-16) mg/dL Creatinine 0.60 (0.5-1.4) mg/dL Estim Creat Clear Calc 93.8 Estimated GFR > 60 POC Glucose 123 H (60-115) mg/dL Random Glucose 130 H (60-115) mg/dL Lactic Acid (0.5-2.0) mmol/L Calcium 9.2 (8.4-10.2) mg/dL Magnesium 2.0 (1.6-2.6) mg/dL Total Bilirubin 0.3 (0.0-1.0) mg/dL Direct Bilirubin 0.1 (0.0-0.5) mg/dL AST 23 (5-31) U/L ALT 10 (0-31) U/L Alkaline Phosphatase 56 (39-117) U/L Ammonia (13-55) umol/L Troponin I High Sens 5.8 (<3.5-17.0) ng/L NT-Pro-B Natriuret Pep 774.1 H (<300) pg/mL Total Protein 7.9 (6.5-8.0) g/dL Albumin 4.0 (3.5-5.0) g/dL Salicylates (15-30) mg/dL COVID-19 ([facility]) Negative (Negative) COVID-19 Clin Com See Note Influenza Type A (MEG) Negative (Negative) Influenza Type B (MEG) Negative (Negative) Influenza A & B Note See Note 07/04/25 07/04/25 07/04/25 Range/Units 16:25 16:37 17:52 WBC (4.8-10.8) X10*3/uL RBC (4.20-5.50) X10*6/uL Hgb (12.0-16.0) g/dl Hct (37.0-47.0) % MCV (80.0-98.0) fL MCH (27.0-33.0) pg MCHC (31.0-35.0) g/dl RDW (11.0-16.0) % Plt Count (160-400) X10*3/uL MPV (9.4-12.3) fL Immature Gran % (Auto) (0.0-0.4) % Neut % (Auto) (45-73) % Lymph % (Auto) (20-40) % [place] % (Auto) (2-11) % Eos % (Auto) (0-4) % Baso % (Auto) (0-2) % Lymph # (Auto) (1.2-4.9) X10*3/uL [place] # (Auto) (0.1-1.2) X10*3/uL Eos # (Auto) (0.0-0.4) X10*3/uL Baso # (Auto) (0.0-0.2) X10*3/uL Abs Immat Gran (auto) (0.00-0.03) X10*3/uL Absolute Neuts (auto) (2.0-8.3) x10*3/uL Absolute Nucleated RBC (0.0-0.012) X10*3/uL Nucleated RBC % (auto) (0.0-0.2) /100WBC Smear Tech's Comments VBG pH 7.66 H* (7.32-7.43) VBG pCO2 35 mmHg VBG pO2 145 mmHg VBG HCO3 TNP VBG O2 Saturation 99.0 % VBG Base Excess 18.5 mmol/L Sodium (135-145) mmol/L Potassium (3.3-5.1) mmol/L Chloride (96-108) mmol/L Carbon Dioxide (22-29) mmol/L Anion Gap (12-20) BUN (9-16) mg/dL Creatinine (0.5-1.4) mg/dL Estim Creat Clear Calc Estimated GFR POC Glucose (60-115) mg/dL Random Glucose (60-115) mg/dL Lactic Acid 0.7 (0.5-2.0) mmol/L Calcium (8.4-10.2) mg/dL Magnesium (1.6-2.6) mg/dL Total Bilirubin (0.0-1.0) mg/dL Direct Bilirubin (0.0-0.5) mg/dL AST (5-31) U/L ALT (0-31) U/L Alkaline Phosphatase (39-117) U/L Ammonia 36 (13-55) umol/L Troponin I High Sens (<3.5-17.0) ng/L NT-Pro-B Natriuret Pep (<300) pg/mL Total Protein (6.5-8.0) g/dL Albumin (3.5-5.0) g/dL Salicylates < 5.0 L (15-30) mg/dL COVID-19 ([facility]) (Negative) COVID-19 Clin Com Influenza Type A (MEG) (Negative) Influenza Type B (MEG) (Negative) Influenza A & B Note Independent Interpretation I performed an independent interpretation of an: EKG Interpretation: EKG normal sinus rhythm at a ventricular rate of 70 beats per minute, CA interval 188, QT QTC 390/421, no STEMI. Radiology Impression Discussion of test interpretation with radiology: I have reviewed the radiologist's reading. Radiologist Impression: Findings: The heart size is normal. RV/LV ratio is normal. Unremarkable thoracic aorta and great vessels. No aneurysm. No main or segmental pulmonary emboli identified. The visualized thyroid and mediastinum are unremarkable. The lungs are under expanded. Right upper lobe patchy areas centrilobular ground-glass opacities. Bibasilar dependent subsegmental atelectasis. The visualized upper abdomen is unremarkable. The bones are intact. Lumbar dextroscoliosis. Diffuse idiopathic skeletal hyperostosis Mild osteopenia. IMPRESSION: 1. Right upper lobe pneumonia. Short-term follow-up is suggested. 2. Bibasilar dependent subsegmental atelectasis. 3. No main or segmental pulmonary emboli identified. This document has been electronically signed by: Lenard Garcia MD on 07/04/2025 20:05:48 Dictated By: Lenard Garcia MD Findings: Patient is slightly rotated on this study. Cardiac silhouette is mildly enlarged. Perihilar and basilar interstitial markings are prominent. Persistent right hilar fullness. Likely small bilateral pleural effusions. Impression: Findings most characteristic of volume overload. Bilateral bronchitis/ bronchiolitis could give a similar appearance. This document has been electronically signed by: Kasi Zuleta MD on 07/04/2025 16:18:57 Dictated By: Kasi Zuleta MD Critical Care Time Critical Care Time Critical Care Time: Yes Total Critical Care Time: 53 Attestation: I have personally provided critical care time exclusive of time spent on separately billable procedures. Time includes review of lab data, radiology results, discussion with consultants, and monitoring for potential decompensation. Intervention performed as documented. Discharge Plan Discharge Clinical Impression: Pneumonia, CHF (congestive heart failure) Patient Disposition: Admitted As Inpatient Interventions: Admission Worksheet (ED) Last Done: 07/05/25 00:03 Discharge Date/Time: 07/05/25 01:19
--- NOTE | 2025-07-04 14:12 | ECG_ITS ---
Test Reason : dyspnea Blood Pressure : */* mmHG Vent. Rate : 70 BPM Atrial Rate : 70 BPM P-R Int : 188 ms QRS Dur : 92 ms QT Int : 390 ms P-R-T Axes : 38 20 34 degrees QTcB Int : 421 ms Normal sinus rhythm Normal ECG When compared with ECG of 08-May-2025 10:20, Premature ventricular complexes are no longer Present Referred By: Tammie Peres Electronically Signed By: Jake Veliz
--- OUTSIDE RECORDS SUMMARY | 2025-07-04 14:45 | XMS_ITS | Data Portability ---
Author Organization [facility] [employer] [facility] [place] [facility] Address [address] [place] [address] Care Team Providers Care Patient Attendant Name Role Phone HIM CCA OTHER Unavailable Primary Care Provider [phone] Assessment Encounter Date Assessment Date Assessment LastModified [...] q6hr PRN. FUP with PCP. Precautions reviewed. [email or web address] Not available 10/20/2024 22:40:59 11/11/2024 11/11/2024 I provided real -time medical direction via phone for this encounter, and was available for additional phone based assistance as needed. I have reviewed and agree with the Assessment and Plan as documented by the All Purpose Clerk. We discussed the diagnostic uncertainty of home [...] to call 911- verbalized understanding of instruction [email or web address] Not available 11/11/2024 11:09:06 Plan of Treatment Reminders Order Date Submit Date Provider Last Modified By Organization Details Last Modified Time Details Appointments None recorded. Lab BMP, serum or plasma 2024 025 AFSHIN [facility], [address] [place] [address], [id number] 5 08:12:40 rapid flu (A+B) 2024 025 [email or web address] 0 [facility] [address] [place] [address], [id number] 5 17:59:22 rapid SARS CoV 2 Ag, QL IA, respiratory specimen 2024 025 [email or web address] 0 [facility], [address] [place] [address], [id number] 17:59:22 urinalysis, dipstick 2024 [email or web address] [facility] [address] [place] [address], [address] [place] [address] 5 16:56:12 BMP, serum or plasma 2024 025 [email or web address] [facility] - [facility], [address] [place] [address], [id number] 16:56:12 culture, urine 2024 AFSHIN [facility] (Centralized Electronic Ordering - All Locations), Patient Can Go To The Location Of Their Choice, [id number] 5 10:05:34 rapid flu (A+B) 2024 025 [email or web address] [facility] - [facility], [address] [place] [address], [id number] 19:51:19 glucose, fingerstick , blood 2024 025 [email or web address] [facility] - [facility], [address] [place] [address], [id number] 18:03:29 Referral None recorded. Procedures None recorded. Surgeries None recorded. Imaging electrocard iogram 2024 025 [email or web address] 0 [facility] [address] [place] [address], [id number] 5 17:59:23 electrocard iogram 2024 025 [email or web address] [facility], [address] [place] [address], [id number] 18:07:21 Medication Orders ondansetron HCl (PF) 4 mg/2 mL injection solution 2024 025 [email or web address] 0 [facility], [address] [place] [address], [id number], 5 17:59:21 lactated Ringers intravenous solution 2024 025 [email or web address] 0 [facility], [address] [place] [address], [id number], 5 17:59:21 ondansetron 4 mg disintegrat ing tablet 2024 025 [facility], [address] [place] [address], [id number], 5 09:13:59 sulfamethox azole 800 mg-trimetho prim 160 mg tablet 2024 025 [facility], [address] [place] [address], [id number], 5 11:07:13 Tylenol Extra Strength 500 mg tablet 2024 025 [email or web address] 7 [facility], [address] [place] [address], [id number], 5 20:55:03 Proventil HFA 90 mcg/actuati on aerosol inhaler 2024 025 [facility], [address] [place] [address], [id number], 5 13:00:53 ipratropium 0.5 mg-albutero l 3 mg (2.5 mg base)/3 mL nebulizatio n soln 2024 025 [facility], [address] [place] [address], [id number], 5 17:16:48 azithromyci n 250 mg tablet 2024 025 [email or web address] [facility], [address] [place] [address], [id number], 5 18:04:54 azithromyci n 250 mg tablet 2024 025 [facility] [address], [place], [id number], 13:00:49 Patient TargetsNo targets recorded. Patient InstructionsNo instructions recorded. Reason for Referral None Reported. Results Created Date Observation Date Name Description Value Unit Range Abnormal Flag Note LastModifiedBy Organization Detail LastModifiedTime 10/03/1910/03/2024 rapid flu (A+B) Flu negati ve Not Available [facility] [address] [place] [address], [id number] 10/03/2024 17:09:58 10/03/1910/03/2024 gluco se, finge rstic k, blood Blood Glucose: mg/dl 187 Not Available [facility] [address] [place] [address], [id number] 10/03/2024 17:16:05 10/18/1910/21/2024 URINE CULTU RE,CO MPREH ENSIV E urine culture,comp rehensive Final report abnormal Not Available [facility] ([facility]) [address] [facility], [place], [address], 10/21/2024 12:44:16 10/18/19 25 10/21/2024 URINE CULTU [...] compl ex, and Klebs iella aerog chin. [place] irwin that initi ally test susce ptibl e may becom e resis tant withi n a few days after initi ation of thera py. Testi ng subse quent isola irwin may be warra nted if clini annette indic ated. (CLSI M100- Ed33) Great er than 100,0 00 colon y formi ng units per mL Not Available [facility] ([facility]) [address] [facility], [place], [address], 10/21/2024 12:44:16 10/18/19 25 10/21/2024 URINE CULTU [...] thopr im/Mandel lfa S Not Available [facility] ([facility]) [address] [facility], [place], [address], 10/21/2024 12:44:16 11/11/19 25 11/11/2024 rapid SARS CoV 2 Ag, QL IA, respi rator y speci men rapid SARS CoV 2 Ag, QL IA, respiratory specimen negati ve Not Available [facility] [address] [place] [address], [id number] 11/11/2024 11:05:36 11/11/19 25 11/11/2024 rapid flu (A+B) Flu negati ve Not Available [facility] [address] [place] [address], [id number] 11/11/2024 11:05:35 10/03/19 25 10/03/2024 elect hernan diogr am No observ ation record ed. [email or web address] [facility] [address] [place] [address], [id number] 10/03/2024 18:07:20 11/11/19 25 11/12/2024 elect hernan diogr am No observ ation record ed. [email or web address] [facility] [address] [place] [address], [id number] 11/12/2024 08:13:36 Result Notes None recorded. Medical Equipment None Reported. Allergies Allergen ID Allergen Name Allergen Category Reaction Reaction Severity Criticality Documentation Date Start Date Code Code System Note Provider Name and Address Organization Details Recorded Time 41871 lisinopri l medicatio n Not available Not available Not available 10/03/2024 02614 RxNorm Not Available [facility] - production 14:54:18 27702 morphine medicatio n Not available Not available Not available 07/03/2025 7052 RxNorm Not Available [facility] - production 14:00:05 Medications Name Sig Start Date Stop Date [...] 5 99.3 [degF] 97 % 97 % 104481 g 73 /min 16 /min 146/81 mm[Hg] Not Available [facility] - production 5 16:44:11 Date Recorded Heart rate Body weight Body height Body temperature Oxygen saturation Oxygen saturation in Arterial blood by Pulse oximetry Inhaled oxygen flow rate Respiratory rate Systolic And Diastolic Provider Name and Address Organization Details Last Updated DateTime 5 73 /min 873556 g 160.02 cm 99 [degF] 98 % 98 % 2 L/min 18 /min 155/81 mm[Hg] Not Available [facility] - production 5 20:52:30 Date Recorded Heart rate Respiratory rate Oxygen saturation Oxygen saturation in Arterial blood by Pulse oximetry Inhaled oxygen flow rate Body weight Body height Body temperature Systolic And Diastolic Provider Name and Address Organization Details Last Updated DateTime 5 60 /min 18 /min 100 % 100 % 2 L/min 574910 g 160.02 cm 98.7 [degF] 194/91 mm[Hg] Not Available [email or web address] 5 15:59:16 Date Recorded Body temperature Oxygen saturation Oxygen saturation in Arterial blood by Pulse oximetry Inhaled oxygen flow rate Body weight Body height Respiratory rate Heart rate Systolic And Diastolic Provider Name and Address Organization Details Last Updated DateTime 5 98.4 [degF] 95 % 95 % 2 L/min 875547. 04 g 160.02 cm 16 /min 80 /min 116/74 mm[Hg] Not Available [email or web address] production 5 11:01:38 Social History None recorded. Functional Status None recorded. Mental Status None recorded. Family History Nothing Reported. Medical History No medical history recorded. Gynecological HistoryNo gynecological history recorded. Obstetrics History GPAL:G 0 P 0 0 0 0 Past Encounters Encounter ID Performer Location Encounter Start Date Encounter Closed Date Diagnosis/Indication Diagnosis SNOMED-CT Code Diagnosis ICD10 Code Diagnosis IMO Codes Diagnosis Note [id number] Bautista Cueva MD [facility] [address] [place] [phone] 10/23/2023 17:01:07 10/23/2023 22:32:23 Loose stool 587079061 R19.5 [id number] Allyn Massey MD [facility] [address] [place] [phone] 01/11/2024 10:20:30 01/11/2024 16:25:20 Muscle weakness 62414651 M62.81 [id number] David Retana MD [facility] [address] [place] [id number] 01/24/2024 13:12:58 01/24/2024 22:56:49 Bilateral lower limb edema 709457214 R60.0 Acute on chronic. Patient with daily [...] which to seek higher level of care. [id number] JOSE LUIS GERONIMO MD [facility] [address] [place] [phone] 10/03/2024 16:28:44 10/03/2024 22:24:33 Contusion of orbital tissue of right eye 2528025000 5502350 S05.11XA Evaluation in the field was performed by my sound mixer colleague, as noted above, I provided real-time direction and supervisio n for this visit. Canadian interprete r was used to communicat e [...] room air. Low-grade temperatur e, but the sound mixer reports that the room is very warm.Exam: Small bruising and swelling under the right eye and temporal area, with no periorbita l ecchymosis ( raccoon eyes ). No tenderness to palpation over the affected area or the bridge of the nose. Normal eye movement with no reported pain. The sound mixer reports rhonchi on lung examinatio n. No [...] exac erbation of chronic obstructive pulmonary disease 658859094 J44.1 Patient denies shortness of breath, cough, or upper respirator y infection symptoms. The sound mixer reported rhonchi on lung examinatio n. On [...] the first dose administer ed by the sound mixer. -Due to the lack of wheezing, her stable oxygen saturation on chronic oxygen, and her history of diabetes requiring insulin, the decision was made not to start Prednisone to avoid hyperglyce daniela.-Red flags were discussed with the patient. [id number] DA MUÑOZ MD [facility] - [address] [phone] 10/16/2024 20:52:29 10/21/2024 15:57:41 Headache 93690621 R51.9 Pain in left arm 3188183 00 M79.602 [id number] Mar Jiménez MD [facility] - [address] [phone] 10/18/2024 15:45:59 10/21/2024 16:36:29 Altered mental status 482850750 R41.82 Evaluation in the field was performed by my sound mixer colleague, as noted above, I provided real-time direction and supervisio n for this visit. 79 yo F PMHx HTN, CAD, T2DM, COPD on 2L home O2 p/w ongoing ANGELO, body aches for which she was seen yesterday by [facility]. Repeat visit requested by son as pt awoke this AM and felt confused, spontaneou sly resolved. Triage note reports dizziness however pt denies this. ANGELO resolved. Endorsed urinary frequency without dysuria, fevers, hematuria. On sound mixer eval VS wnl, exam wnl including A+O [...] endorsed ongoing L shoulder/a rm pain. On sound mixer exam not swelling or deformity, rotator cuff [...] shortness of breath, cough, chest pain, fever. [id number] Sayra Arevalo MD Main - [address] [phone] 10/21/2024 15:55:58 10/21/2024 17:31:04 Urinary symptoms [id number] R39.9 [id number] Luz Love MD Main - [address] [phone] 11/11/2024 11:01:33 11/12/2024 12:20:21 Nausea, vomiting and diarrhea 1277341 R11.2 R19.7 labs not concerning / given [...] Elizondo Member ID Guarantor Name 11/12/2024 1 [facility] - DOS ON OR AFTER 2022 - DUAL ELIGIBLE - LONG-TERM OPTIONS AND ONE CARE (MEDICARE REPLACEMENT/ADV ANTAGE - HMO) Magalie Stein [id number] Magalie Stein Notes Date Note Type Note Provider Name and Address Organization Details Recorded Time 10/03/2024 text/html ROS as noted in the HPI HPI: Call returned to [facility] to [...] at 10/03/2024:54 Allergies Reviewed at 10/03/2024 - :54 Comments: CRC RN did not require any additional information to process this visit. All Purpose Clerk Organization Information for Linda Leyva Legal Name: [employer]. Address: [address] [place] [address], Clarifier: Too Welch MD CLIA No.: [id number] All Purpose Clerk POC Test Results from Linda Leyva Rapid influenza antigen (17:29:49) Flu: - Attachments uploaded as part of this test result can be found under Documents section. EKG (17:59:36) EKG test performed. Attachments uploaded as part of this test result can be found under Documents section. ................... ................... ................... ................... ................... ................... ................... ........ All Purpose Clerk Note From Linda Leyva: Disp for the 79 year old female cc head/eye injury. Upon arrival patient found sitting in recliner in living room. Patient is Canadian speaking only' rolling machine operator automatic used during visit. Patient is IQBAL x 4 GCS x 15, patient does not know the month or year and was unsure of her street address. Patient reports she is unable to read or write. Patient appeared to answer questions appropriately for rolling machine operator automatic. Patient denies chest pain, denies shortness of breath, denies abdominal pain, denies n/v/d, denies head pain, denies changes to vision, complains of bilateral leg weakness. Patient's son called for appointment due to patient falling on 09/17/24 and hitting her right side of face. Patient refused to go to the ER after injury. Son reported increased swelling at right jainism and around right lower eye. Patient states [...] blood work and I.V. access. Consulted with [facility] Dr. Geronimo. Dr. Geronimo ordered DuoNeb updraft [...] the patient of red flags/risk factors with rolling machine operator automatic. Patient understood. Dr. Geronimo she will send request to her PCP for physical therapy referral. Dr. Geronimo advised patient she can take her albuterol inhaler tonight every 4-6 hours as needed and to continue antibiotics tomorrow as prescribed. All times approx. ................... ................... ................... ................... ................... ................... ................... ........ [facility] Consulted: Jose Luis Geronimo ................... ................... ................... ................... ................... ................... ................... ........ Disposition: Fulfilled JOSE LUIS GERONIMO MD [address] [facility],[address], [place], [address], [facility] - [employer] [facility] 10/03/2024 21:37:27 10/16/2024 text/html HPI: Call returned [...] for our walk in today. Agrees to [employer] cesar medellin. Confirmed Demographics and allergies. ................... [...] ................... ................... ................... ................... ................... ................... ........ All Purpose Clerk Note From Joselito Rogers: [facility] visit for female pt. Pt is tanzanian speaking only and rolling machine operator automatic was used. Pt presents complaining of headache [...] afebrile. Lung sounds clear bilaterally. Consulted with [facility] Dr Muñoz and reviewed dosage for tylenol. Pt then stated had taken some at 3 pm and would take more if she thought she needed it . Reviewed red flags for ED. Pt education provided. ................... ................... ................... ................... ................... ................... ................... ........ [facility] Consulted: Da Muñoz ................... ................... ................... ................... ................... ................... ................... ........ Disposition: Fulfilled DA MUÑOZ MD [address] [place] [address],[address], [place], [address], [facility] - [employer] 10/20/2024 22:41:05 10/18/2024 text/html CRC Nurse Triage [...] Allergies Reviewed at 10/18/2024 - 14:00 Comments: Supervisor [place] verified the member's name//address and phone number. [...] declined. Would like to be evaluated by [employer]. Red flags reviewed. Explained if member s/s worsen or change family needs to call emergency services. Education provided on the response time and the member was advised to monitor reported s/s and seek emergency treatment if needed. All Purpose Clerk Organization Information for Efrain Oakley [employer] Legal Name: [employer]. Address: [address] [place] [address], Clarifier: Too ORELLANA No.: [id number] All Purpose Clerk POC Test Results from Efrain Oakley - ALS Urine Dipstick (16:02:19) Urine leukocytes: 70+ PORSCHE Urine nitrites: - NIT Urine urobilinogen: 0.2-3.5 URO Urine protein: 15+-0.15 PRO Urine pH: 7.0 pH Urine blood: - BLO Urine specific gravity: 1.010 SG Urine ketones: 5+-0.5 KET Urine bilirubin: - RICO Urine glucose: - GLU ................... ................... ................... ................... ................... ................... ................... ........ All Purpose Clerk Note From Efrain Oakley: [facility] makes pt contact. She is seated in a chair in her living room and she turns and greets [facility]. She is generally well appearing, wearing a NC, and making good eye contact. No stridor or sonorous respirations are heard, no facial droop or one-sided weakness are observed, and she is not bleeding anywhere. Pt is Canadian-speaking only, so rolling machine operator automatic services via cell phone are attempted. Pt has difficulty hearing and understanding the rolling machine operator automatic, so she calls her son on [employer] and he provides hx and translation services. [...] She consents to evaluation and treatment today. [facility] obtains vital signs and pt is assessed. Lung sounds are clear and nothing remarkable is noted upon physical exam. Urine sample is obtained via clean catch for culture and dip stick analysis. [facility] contacts [facility] and discusses the above. [facility] orders urine culture and a bmp. [facility] is unable to gain IV access for bmp. [facility] gives instructions for family to take pt to the ED if her confusion persists and decision about medication for possible UTI will be made after culture returns. Pt and family thank [facility] for coming. [facility] is clear. Report completed by WINSTON Oakley [id number]. [facility] Lab Orders: urinalysis, dipstick: Performed BMP, serum or plasma: Not Performed Comment: Unable to obtain adequate sample amount. ................... ................... ................... ................... ................... ................... ................... ........ [facility] Consulted: Mar Jiménez ................... ................... ................... ................... ................... ................... ................... ........ Disposition: Fulfilled Mar Jiménez MD [address] [facility],[address], [place], [address], [employer], [employer] 10/18/2024 21:29:19 11/11/2024 text/html ROS as noted in the [facility] CRC Nurse Triage Notes (Maame Garay): Reason [...] s/s and seek emergency treatment if needed. All Purpose Clerk Organization Information for Guan[employer]ito Vela Legal Name: [facility] [employer] ss: [address] [facility], [place] [address], USMedical Director: Geo Galvin [facility] No.: [id number] All Purpose Clerk POC Test Results from Guanakito Vela epo (:57:11)pH: 7.38 pH unitspCO2: 61.2 mmHgpO2: 37.6 [...] ................... ................... ................... ................... ................... ................... ........ All Purpose Clerk Note From Guanakito Vela: This 79-year-old female [...] questions and is agreeable to this plan. [facility] Lab Orders: BMP, serum or plasma: Performed rapid flu (A+B): Performed rapid SARS CoV 2 Ag, QL IA, respiratory specimen: Performed [facility] Medication Orders: ondansetron HCl (PF) 4 mg/2 mL injection solution: Administered lactated Ringers intravenous solution: Administered ................... ................... ................... ................... ................... ................... ................... ........ [facility] Consulted: Luz Love ................... ................... ................... ................... ................... ................... ................... ........ Disposition: Fulfilled SEGMD: As above: Patient denies any known sick contacts, fever, chills, diaphoresis/dizzine ss or syncope. Luz Love MD [address] [facility],[address], [place], [address], [facility] - [employer], K[facility] 11/12/2024 13:27:51 OBGyn Episode No OBEpisode recorded.
--- OUTSIDE RECORDS SUMMARY | 2025-07-04 14:46 | XMS_ITS | Continuity of Care Document ---
Author Organization [facility] Address [address] [place] [id number] Care Team Providers Care Composition Board Press Operator Name Role Phone HIM CCA OTHER Unavailable Primary Care Provider Assessment Encounter Date Assessment Date Assessment LastModified by Organization Details LastModified Time 07/03/2025 07/03/2025 I provided real -time medical direction via phone for this encounter, and was available for additional phone based assistance as needed. I have reviewed and agree with the Assessment and Plan as documented by the Pelt Grader. We discussed the diagnostic uncertainty of home visits and the risk associated with this. In this case the patient and I felt this to be an acceptable and reasonable amount of risk given the benefit of avoiding an ED visit. The patient given the opportunity to ask questions. Advised close f/u with pcp this coming Sunday if develops CP/severe SOB/turning blue/uncontrolle d n/v/d / severe flank or abd pain//worsening ANGELO/ AMS/ syncope/ hi fever to call 911-patient and family verbalized understanding of instructions to the medic [email or web address] Not available 07/03/2025 16:13:37 Plan of Treatment Reminders Order Date Submit Date Provider Last Modified By Organization Details Last Modified Time Details Appointments None recorded. Lab culture, urine 2024 025 AFSHIN [facility] (Centralized Electronic Ordering - All Locations), Patient Can Go To The Location Of Their Choice, [id number] 16:09:49 urinalysis , dipstick 2024 025 [email or web address] 0 [facility], [address] [place], [phone] 16:09:44 glucose, fingerstic k, blood 2024 025 [email or web address] 0 [facility], [address] [place] [address], [phone] 16:09:47 Referral None recorded. Procedures None recorded. Surgeries None recorded. Imaging None recorded. Medication Orders Macrobid 100 mg capsule 2024 025 [facility], [address] [place] [address], [id number], 16:17:48 Macrobid 100 mg capsule 2024 025 [email or web address] 0 [facility], [address] [place] [address], [id number], 16:10:39 Patient TargetsNo targets recorded. Patient InstructionsNo instructions recorded. Reason for Referral None Reported. Results Created Date Observation Date Name Description Value Unit Range Abnormal Flag Note LastModifiedBy Organization Detail LastModifiedTime 07/03/2007/04/2025 URINA LYSIS , ROUTI NE specific gravity 1.011 1.005- 1.030 normal Not Available [facility] ([facility]) [address] [place], [address], 07/04/2025 06:07:47 07/03/2007/04/2025 URINA LYSIS , ROUTI NE pH 6.0 5.0-7. 5 normal Not Available [facility] ([facility]) [address] [place], [address], 07/04/2025 06:07:47 07/03/2007/04/2025 URINA LYSIS , ROUTI NE urine-color Yellow yellow Not Available [facility] ([facility]) [address] [place], [address], 07/04/2025 06:07:47 07/03/2007/04/2025 URINA LYSIS , ROUTI NE appearance Turbid clear abnormal Not Available [facility] ([facility]) [address] [place], [address], 07/04/2025 06:07:47 07/03/2007/04/2025 URINA LYSIS , ROUTI NE WBC esterase 3+ negati ve abnormal Not Available [facility] ([facility]) [address] [place], [address], 07/04/2025 06:07:47 07/03/2007/04/2025 URINA LYSIS , ROUTI NE protein 1+ negati ve/tra ce abnormal Not Available [facility] ([facility]) [address] [place], [address], 07/04/2025 06:07:47 07/03/2007/04/2025 URINA LYSIS , ROUTI NE glucose Negati ve negati ve Not Available [facility] ([facility]) [address] [place], [address], 07/04/2025 06:07:47 07/03/2007/04/2025 URINA LYSIS , ROUTI NE ketones Negati ve negati ve Not Available [facility] ([facility]) [address] [facility], [place], [address], 07/04/2025 06:07:47 07/03/2007/04/2025 URINA LYSIS , ROUTI NE occult blood 1+ negati ve abnormal Not Available [facility] ([facility]) [address] [place], [address], 07/04/2025 06:07:47 07/03/2007/04/2025 URINA LYSIS , ROUTI NE bilirubin Negati ve negati ve Not Available [facility] ([facility]) [address] [place], [address], 07/04/2025 06:07:47 07/03/20 25 07/04/2025 URINA LYSIS , ROUTI NE urobilinogen ,semi-qn 0.2 mg/dL 0.2-1. 0 normal Not Available [facility] ([facility]) [address] [facility], [place], [address], 07/04/2025 06:07:47 07/03/2007/04/2025 URINA LYSIS , ROUTI NE nitrite, urine Negati ve negati ve Not Available [facility] ([facility]) [address] [facility], [place], [address], 07/04/2025 06:07:47 07/03/2007/04/2025 URINA LYSIS , ROUTI NE microscopic examination See below: Micro scopi c was indic ated and was perfo rmed. Not Available [facility] ([facility]) [address] [facility], [place], [address], 07/04/2025 06:07:47 07/03/2007/04/2025 URINA LYSIS , ROUTI NE WBC >30 /hpf 0 - 5 abnormal Not Available [facility] ([facility]) [address] [facility], [place], [address], 07/04/2025 06:07:47 07/03/2007/04/2025 URINA LYSIS , ROUTI NE RBC 0-2 /hpf 0 - 2 Not Available [facility] ([facility]) [address] [facility], [place], [address], 07/04/2025 06:07:47 07/03/2007/04/2025 URINA LYSIS , ROUTI NE epithelial cells (non renal) 0-10 /hpf 0 - 10 Not Available [facility] ([facility]) [address] [facility], [place], [address], 07/04/2025 06:07:47 07/03/2007/04/2025 URINA LYSIS , ROUTI NE epithelial cells (renal) CLINICAL INFORMATICS SPEC Not Available [facility] ([facility]) [address] [facility], [place], [address], 07/04/2025 06:07:47 07/03/2007/04/2025 URINA LYSIS , ROUTI NE casts None seen /lpf none seen Not Available [facility] ([facility]) [address] [facility], [place], [address], 07/04/2025 06:07:47 07/03/2007/04/2025 URINA LYSIS , ROUTI NE cast type CLINICAL INFORMATICS SPEC Not Available [facility] ([facility]) [address] [facility], [place], [address], 07/04/2025 06:07:47 07/03/2007/04/2025 URINA LYSIS , ROUTI NE crystals CLINICAL INFORMATICS SPEC Not Available [facility] ([facility]) [address] [facility], [place], [address], 07/04/2025 06:07:47 07/03/2007/04/2025 URINA LYSIS , ROUTI NE crystal type CLINICAL INFORMATICS SPEC Not Available [facility] ([facility]) [address] [facility], [place], [address], 07/04/2025 06:07:47 07/03/2007/04/2025 URINA LYSIS , ROUTI NE mucus threads CLINICAL INFORMATICS SPEC Not Available [facility] ([facility]) [address] [facility], [place], [address], 07/04/2025 06:07:47 07/03/2007/04/2025 URINA LYSIS , ROUTI NE bacteria Modera te none seen/f ew abnormal Not Available [facility] ([facility]) [address] [facility], [place], [address], 07/04/2025 06:07:47 07/03/2007/04/2025 URINA LYSIS , ROUTI NE yeast CLINICAL INFORMATICS SPEC Not Available [facility] ([facility]) [address] [facility], [place], [address], 07/04/2025 06:07:47 07/03/2007/04/2025 URINA LYSIS , LEONCIO NE trichomonas CLINICAL INFORMATICS SPEC Not Available [facility] ([facility]) [address] [facility], [place], [address], 07/04/2025 06:07:47 07/03/2007/04/2025 URINA LYSIS , ROUTSheldon NE comment CLINICAL INFORMATICS SPEC Not Available [facility] ([facility]) [address] [facility], [place], [address], 07/04/2025 06:07:47 07/03/2007/03/2025 gluco se, finge rstic k, blood Blood Glucose: mg/dl 191 post prandi al Not Available [address], [address] 07/03/2025 16:09:25 07/03/2007/03/2025 urina lysis , dipst ick Appearance cloudy malodo hermann Not Available [address], [address] 07/03/2025 16:08:41 07/03/2007/03/2025 urina lysis , dipst ick Color medium yellow Not Available [address], [address] 07/03/2025 16:08:41 Result Notes None recorded. Medical Equipment None Reported. Allergies Allergen ID Allergen Name Allergen Category Reaction Reaction Severity Criticality Documentation Date Start Date Code Code System Note Provider Name and Address Organization Details Recorded Time 52201 lisinopri l medicatio n Not available Not available Not available 10/03/2024 09391 RxNorm Not Available [facility] - production 14:54:18 41360 morphine medicatio n Not available Not available [...] Not Available Not Available No t Available Macrobid 100 mg capsule Take 1 capsule every 12 hours by oral route for 7 days. 2024 active Not Available Not Available Not Avai lable oxycodone-ac etaminophen 5 mg-325 mg tablet TAKE [...] Ultra-Fine Gracy Pen Needle 32 gauge x /32 USE DIRECTED FOUR TIMES DAILY DIRECTED active [...] Available Vitals Date Recorded Heart rate Body temperature Respiratory rate Oxygen saturation Oxygen saturation in Arterial blood by Pulse oximetry Inhaled oxygen flow rate Systolic And Diastolic Provider Name and Address Organization Details Last Updated DateTime 5 78 /min 98.6 [degF] 18 /min 98 % 98 % 2 L/min 140/72 mm[Hg] Not Available [facility] 5 16:02:22 Social History None recorded. Functional Status None recorded. Mental Status None recorded. Family History Nothing Reported. Medical History No medical history recorded. Gynecological HistoryNo gynecological history recorded. Obstetrics History GPAL:G 0 P 0 0 0 0 Past Encounters Encounter ID Performer Location Encounter Start Date Encounter Closed Date Diagnosis/Indication Diagnosis SNOMED-CT Code Diagnosis ICD10 Code Diagnosis IMO Codes Diagnosis Note [id number] Luz Love MD [facility] [address] [place] [address] 07/03/2025 16:02:17 07/03/2025 17:51:11 Urinary system finding [id number] R39.9 [id number] likely recurrent utiPatient received 7 days of Macrobid on 06/05/2025 and her symptoms resolved and they just reoccurred . She reports her symptoms are identical to her last UTI. She has no fever or CVA tenderness , no nausea vomiting or diarrhea to suggest systemic symptoms. Advised to stay well hydrated- avoid caffeine. May have tylenol 4 x per day 500- 1000 mg( medic verified has at home)- will call if UC reveal need for different abx Health Concerns Section Related Observation LastModified by Organization Detai ls LastModified Time None Recorded Concern Status LastModified by Organization Details LastModified Time None Recorded Payers Encounter Date Sequence Insurance Name Policy Number Policy Elizondo Covered Member ID Elizondo Member ID Guarantor Name 07/03/2025 1 [facility] - DOS ON OR AFTER 2022 - DUAL ELIGIBLE - GROUP HOME OPTIONS AND ONE CARE (MEDICARE REPLACEMENT/ADV ANTAGE - HMO) Magalie Live Emil [id number] Magalie Live Emil Notes Date Note Type Note Provider Name and Address Organization Details Recorded Time 025 text/ht ml ROS as noted in the HPI [facility] Nurse Triage Notes (Adilene Sutton): Reason For Request: Pt's son reporting headache>weakness>tired>symptoms began last night>has not taken anything OTC today to help with symptomsPMH: DiabeticAllergies to meds: morphine Patient Reports: Palpitations, feeling dizzy; Weakness/tachycardiaDenies: History of Heart Attack, in the setting of active chest pain Active Chest pain, radiates to neck jaw and or arm Diaphoretic/Sweating Describes as c rushing Sudden onset of nausea/Vomiting and shortness of breath. Shortness of Breath Unable to speak in full sentences without distress Chest pain, increased fatigue CHF history, increased swelling and edema Chief Complaints: Weakness, Dizziness, Headache, Back Pain, Urinary SymptomsPMH: Coronary Artery Disease, Hypertension, COPD/Asthma, Diabetes Mellitus Type 2, Urinary Tract Infections (UTI), Chronic Kidney DiseasePMH Reviewed at 07/03/2025 - 14:00Allergies Reviewed at 07/03/2025 - 14:00Comments: 80 y.o female complains of Weakness, Dizziness, Headache Patients son making referral. Moms symptoms started last night. states she is feeling weak, lightheaded, and has a headache denies any sore throat, nasal congestion or coughing. Son states she's been eating and drinking well up until today she did not want breakfast.BS 136 and 121 earlier. She had urinary tract infection this month completed course about 2 weeks ago. she is reporting back pain and frequency. no falls or injuries. BP 136/75 today. denies any chest pain or shortness of breath. oxygen dependent 2L/nc 96%. denies any kidney issues denies being on any blood thinnersI provided information on the mobile health provider response time and advised the patient and/or caregiver to monitor reported signs and symptoms. I discussed the warning signs of when to seek emergency care. Pelt Grader Organization Information for Rajeev GregoryAl[facility] Clinic[facility] Legal Name: [employer] A ddress: [address] [facility] [place] [address], Medical Director: Too LEA No.: [id number] Pelt Grader POC Test Results from Rajeev Gregory - RENEE Blood Glucose Measurement (15:58:05)Blood Glucose: 191mg/dL Urine Dipstick (15:58:12)Urine leukocytes: 125++LEUUrine nitrites: -NITUrine urobilinogen: 0.2UROUrine protein: -PROUrine pH: 6.5pHUrine blood: ++BLOUrine specific gravity: 1.020SGUrine ketones: 5KETUrine bilirubin: 2++BILUrine glucose: -GLU SEGMD:PMH: Stage 3 chronic kidney disease (CMS/HCC)Disorder of patellofemoral jointHyperlipidemiaHypertensionLeft ventricular diastolic dysfunctionChronic respiratory failure with hypoxia and hypercapnia (CMS/HCC)ObesitySleep apneaType 2 diabetes mellitus (CMS/HCC)Ulnar neuropathyLeft hip painUrinary incontinenceChronic bronchitis (CMS/HCC)Recurrent UTIAllergic conjunctivitis of left eyeBilateral leg weaknessPrimary osteoarthritis of right kneeClass 3 severe obesity due to excess calories with serious comorbidity and body mass index (BMI) of 45.0 to 49.9 in adultWheelchair dependenceChronic pain of right ankle ..................................... ..................................... ..................................... .............................. Pelt Grader Note From Rajeev Gregory: Dispatch the apartment of a 80-year-old female patient who s chief complaint is UTI, dizziness, headache. Patient and family say this is how she gets when she gets a UTI. Patient came off of antibiotics two weeks ago for a UTI. Patient started with the symptoms yesterday evening. Patient is alert and oriented times four, no slurring speech, symmetrical features, equal poultry tender strength. Patient has a strong and regular pulse rate at 78 bpm. Patient does not have any edema in her lower extremities. Patient denies chest pain and shortness of breath. Patient s lungs are clear, patient is on 2 L per minute oxygen via nasal cannula at baseline. Patient is able to speak in full sentences. Patient given is warm and dry with no noticeable wounds. Patient has been eating and drinking. Patient does describe frequent urination with pain on urination. Pain around the bladder area. Her urine is medium, yellow, cloudy, and malodorous. At this visit, the patient was assessed and had her vitals taken. Patient gave a urine sample and a urine dipstick test was taken. Cultures were also drawn from this. Patient denied any nausea, vomiting abdominal pain. [facility] was consulted and ordered 100 mg macro bid to be given right away. In a prescription for Macrobid sent to her pharmacy. Doctor also asked patient to follow up with physician on Sunday. Patient and family were educated and on when go to the hospital, including the signs and symptoms associated with worsening UTI an allergic reaction to medication. [facility] Lab Orders: culture, urine: Performed urinalysis, dipstick: Performed glucose, fingerstick, blood: Performed [facility] Medication Orders: Macrobid 100 mg capsule: Performed ..................................... ..................................... ..................................... .............................. [facility] Consulted: Luz Love ..................................... ..................................... ..................................... .............................. Disposition: Fulfilled SEGMD: As above. Patient denies fever, chills, nausea, vomiting, diarrhea. Old record reveals patient was diagnosed with a UTI in the ER at the end of April and given cefuroxime per PCP noted 05/14. She was then given Macrobid for 7 days on 06/05/2025 which resolved her symptoms. I do not have access to the urine culture results. Luz Love MD [address] [place] [address],[address] [place] [address], [place], [phone] , [employer] 07/03/2025 17:51:08 OBGyn Episode No OBEpisode recorded.
--- OUTSIDE RECORDS SUMMARY | 2025-07-04 14:46 | XMS_ITS | Data Portability ---
Author Organization [facility] [employer] [facility], Main Office Address [address] [facility] [address], [address] [place] [address] Care Team Providers Care Auto Damage Trainee Name Role Phone MATTHEW ELLIS Primary Care Provider [place] ( [place]) OTHER Assessment Encounter Date Assessment Date Assessment LastModified by Organization Details LastModified Time 01/03/2024 01/03/2024 45 minutes spent on coordination of discharge [email or web address] Not available 01/03/2024 09:32:40 Plan of Treatment Reminders Order Date Submit Date Provider Last Modified By Organization Details Last Modified Time Details Appointments None record ed. Lab None record ed. Referral None record ed. Procedures None record ed. Surgeries None record ed. Imaging None record ed. Medication Orders None record ed. Patient TargetsNo targets recorded. Patient InstructionsNo instructions recorded. Reason for Referral None Reported. Problems Name Problem SNOMED Code Status Onset Date Resolution Date Notes Provider Name and Address Organization Details Recorded Time Pneumonitis 380765187 Active 2023 Joslyn Daley NP [address] [facility], [address], [place], [address], [facility] 4 11:57:32 Acute on chronic hypercapnic respiratory failure 3921201951103 Active 2023 Joslyn Daley NP [address] , [address], [place], [address], [facility] 4 11:58:03 Chronic obstructive pulmonary disease 70669158 Active 2023 Joslyn Daley NP [address] , [address], [place], [address], [facility] 4 12:28:42 Obstructive sleep apnea syndrome 74150397 Active 2023 Joslyn Daley NP [address], [address], [place], [address], [facility] 4 12:28:49 Type 2 diabetes mellitus 34413089 Active 2023 Joslyn Daley NP [address], [place], [address], [facility] 4 12:29:56 Acute exacerbatio n of chronic congestive heart failure 326333190 Active 2023 Joslyn Daley NP [address], [address], [place], [address], [facility] 4 12:30:51 Lung disease with Sj gren's disease 527396762 Active 2023 Joslyn Daley NP [address], [place], [address], [facility] 4 12:31:19 Cirrhosis of liver 80241071 Active 2023 Joslyn Daley NP [address] [facility], [address], [place], [address], [facility] 4 12:31:54 Gastroesoph ageal reflux disease 717336728 Active 2023 Joslyn Daley NP [address] [facility], [address], [place], [address], [facility] 4 12:32:05 Hypertensiv e disorder 30103916 Active 2023 Joslyn Daley NP [address] [facility], [address], [place], [address], [facility] 4 12:51:46 Hyperlipide daniela 10709729 Active 2023 Joslyn Daley NP [address], [address], [place], [address], [facility] 4 12:57:33 Dementia 48929052 Active 2023 Joslyn Daley NP [address] [facility], [address], [place], [address], [facility] 4 13:27:23 Congestive heart failure 90519694 Active 2023 JORGE A SUN NP [address] [facility], [address], [place], [address], [facility] 4 10:58:36 Closed fracture of right ankle 7955450401095 9103 Active 2023 Radha Velasco MD [address] [facility], [address], [place], [address], [facility] 4 15:20:45 Problem Notes None recorded. Medical Equipment None Reported. Allergies No known drug allergies Vitals Date Recorded Body height Heart rate Respiratory rate Body temperature Oxygen saturation Oxygen saturation in Arterial blood by Pulse oximetry Systolic And Diastolic Provider Name and Address Organization Details Last Updated DateTime 4 160.02 cm 78 /min 18 /min 97.6 [degF] 94 % 94 % 140/86 mm[Hg] JORGE A SUN NP [address] [facility], [address], [place], [address], [facility] 4 10:39:47 Date Recorded Body height Heart rate Respiratory rate Body temperature Oxygen saturation Oxygen saturation in Arterial blood by Pulse oximetry Systolic And Diastolic Provider Name and Address Organization Details Last Updated DateTime 4 160.02 cm 79 /min 18 /min 97.5 [degF] 95 % 95 % 106/66 mm[Hg] JORGE A SUN NP [address] [facility], [address], [place], [address], [facility] 4 10:13:41 Date Recorded Body height Heart rate Respiratory rate Body temperature Oxygen saturation Oxygen saturation in Arterial blood by Pulse oximetry Systolic And Diastolic Provider Name and Address Organization Details Last Updated DateTime 4 160.02 cm 84 /min 18 /min 98 [degF] 96 % 96 % 119/73 mm[Hg] JORGE A SUN NP [address] [facility], [address], [place], [address], [facility] 4 12:31:02 Date Recorded Body height Heart rate Respiratory rate Body temperature Oxygen saturation Oxygen saturation in Arterial blood by Pulse oximetry Inhaled oxygen flow rate Systolic And Diastolic Provider Name and Address Organization Details Last Updated DateTime 4 160.02 cm 68 /min 18 /min 96 [degF] 95 % 95 % 2 L/min 118/80 mm[Hg] JORGE A SUN NP [address] [facility], [address], [place], [address], [facility] 4 12:55:29 Date Recorded Body height Heart rate Respiratory rate Body temperature Oxygen saturation Oxygen saturation in Arterial blood by Pulse oximetry Inhaled oxygen flow rate Systolic And Diastolic Provider Name and Address Organization Details Last Updated DateTime 4 160.02 cm 68 /min 18 /min 97.3 [degF] 94 % 94 % 1 L/min 132/81 mm[Hg] JORGE A SUN NP [address] [facility], [address], [place], [address], [facility] 4 08:25:43 Social History Question Answer Notes LastModified by Organizat ion Details LastModified Time Tobacco Smoking Status Former Smoker Says a long time ago Radha Velasco MD [address] [facility], [address], [place], [address], [facility] 11/12/2023 19:16:54 Do You Have An Advance Directive? Yes Information not available 11/12/2023 What Is Your Code Status? Full Code Information not available 11/12/2023 Where Do You Live? Apartment Elderly Complex With Cousin Information not available 11/12/2023 Legal Guardian? No Informati on not available 11/12/2023 Do You Have A Medical Power Of Central Sterile Technician? Yes Information not available 11/12/2023 What Was The Date Of Your Most Recent Tobacco Screening? 11/12/2023 Information not available 11/12/2023 Do You Have An Out Of Hospital DNR? No Information not available 11/12/2023 What Is Your Relationship Status? Domestic Partner Information not available 11/12/2023 Has Tobacco Cessation Counseling Been Provided? No N/a As Pt Doesn't Currently Smoke Information not available 11/12/2023 Sex: Unknown Functional Status Question Answer Note LastModified by Organizat ion Details LastModified Time Do you use any illicit or recreational drugs? No Information not available 11/09/2023 Do you or have you ever used any other forms of tobacco or nicotine? No Information not available 11/09/2023 What is your level of alcohol consumption? None Information not available 11/09/2023 Mental Status None recorded. Family History Nothing Reported Notes:Brother of [place] at 52. Mother and father had MIs Medical History No medical history recorded. Gynecological HistoryNo gynecological history recorded. Obstetrics History GPAL:G 0 P 0 0 0 0 Immunizations Vaccine Type Date Status Note Provider Nam e and Address Organization Details Recorded Time Tdap 2 completed Kylah Kenny [facility] 11/28/2023 15:02:34 Pneumococcal conjugate PCV 13 5 completed Kylah Kenny [facility] 11/28/2023 15:07:13 pneumococcal polysaccharide PPV23 2 completed Kylah Kenny [facility] 11/28/2023 15:07:29 pneumococcal polysaccharide PPV23 4 completed Kylah Kenny [facility] 11/28/2023 15:07:37 influenza, unspecified formulation 2 completed [facility] 11/28/2023 15:07:54 influenza, unspecified formulation 3 completed Kylah Kenny [facility] 11/28/2023 15:08:02 SARS-COV-2 (COVID-19) vaccine, UNSPECIFIED 1 completed Kylah Kenny [facility] 11/28/2023 15:08:15 SARS-COV-2 (COVID-19) vaccine, UNSPECIFIED 1 completed Kylah Kenny [facility] 11/28/2023 15:08:23 SARS-COV-2 (COVID-19) vaccine, UNSPECIFIED 1 completed Kylah Kenny [facility] 11/28/2023 15:08:33 SARS-COV-2 (COVID-19) vaccine, UNSPECIFIED 2 completed Kylah Kenny [facility] 11/28/2023 15:08:46 SARS-COV-2 (COVID-19) vaccine, UNSPECIFIED 2 completed Kylah Cox [facility] 11/28/2023 15:08:53 zoster, unspecified formulation 5 completed Kylah Cox [facility] 11/28/2023 15:09:14 zoster, unspecified formulation 1 completed Kylahlowell Cox [facility] 11/28/2023 15:09:44 zoster, unspecified formulation 1 completed Kylah [facility] 11/28/2023 15:09:54 Past Encounters Encounter ID Performer Location Encounter Start Date Encounter Closed Date Diagnosis/Indication Diagnosis SNOMED-CT Code Diagnosis ICD10 Code Diagnosis IMO Codes Diagnosis Note [id number] Joslyn Daley NP [address] [address] 11/09/2023 11:54:39 11/13/2023 13:26:07 Acute on chronic hypercapnic respiratory failure 0796703963 106 J96.22 see above Pneumonitis 938767447 J1 8.9 resolved in hosp with bipap, high flow oxygen, abx, diuresed, and steriods felt likely to be Sjogren's disease and chfher carvedilol 25 mg po bid, hydralazin e 25 tid , and imdur 20mg daily dc'd in hospitalpl an:finishe d doxycyclin e x 1 dose herecarved iolol 12.5 mg po bid hold sbp <90 hr <60prednis one taper 40 mg po daily x 4 days, and decrease by 10 mg q 5 days to 10mg dailyfuros emide 40 mg po amlow salt diet02 0-4 liters prn sat > 92 %cpap at nightmonit or labs weekly with bmp on mondays fu with pulmonolog y outpt for pneumoniti s, prednisone dosing, Sjorgen's, cpap 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 455235108 M35.02 see above Acute exac erbation of chronic congestive heart failure 368430453 I50.9 see above Type 2 matias betes mellitus 50776211 E11.9 janumet xr 50-1000 mg er po dailymonit or BS daily while on prednisone dailyconst ant carb dietmonito r s/s of hyper/hypo glycemia Obstructiv e sleep apnea syndrome 12213217 G47.33 cpap per home use, family reports they will bring in tonight(di d not have CPAP last night)fu with pulmonolog y outpt Chronic ob structive pulmonary disease 69288117 J44.9 albuterol 2 puffs prn wheezing q 6hours hoursmonit or resp status, vitalssee pneumoniti s above Cirrhosis of liver 007 K74.60 hx ofcontspir onolactone 25 mg po q ammonitor closelycon patient registration specialist lfts as needed, hosp ones stable Gastroesop hageal reflux disease 938640686 K21.9 cont both meds per hospital recfamotid ine 20 mg po bidpantopr azole 40 mg po q ammonitor Hypertensive disorder 38 163909 I10 losartan 100 mg po q ammonitor vitals Hyperlipidemia 55948456 E78.5 pravastati n 40 mg po qhsmonitor Dementia 57187749 F03.90 11/09/23 SLUMS assessment : 07/16invok e pt, son is hcpsupport kate caresafety precaution smonitor [id number] Radha Velasco MD [address] [address] 11/12/2023 15:15:19 11/14/2023 15:19:58 Pneumonitis 748126531 J84.89 As above. Acute on c hronic hypercapnic respiratory failure 7215127574 106 J96.22 As above.Need to be sure we don't make her hypercarbi c again.Will ask for O2 to be titrated to 88-94%, has been 97% the last few checks.And will monitor q shift.F/U with pulmonary as planned. 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 Acute exac erbation of chronic congestive heart failure 383974938 I50.33 Diuresed inpt.Juliana nue carvedilol 12.5 mg BID (decreased inpt), spironolac tone 25 mg qd, losartan 100 mg qd, and lasix 40 mg qd.Continu e low Na+ diet and O2 as needed.Mon itor resp. status, fluid status, wts and labs. Type 2 matias betes mellitus 67443715 E11.9 Sugars were quite high inpt.Will increase fingerstic ks to BID and add SSIContinu e Janumet XR 50-1000 mg ER qd.Increas e frequency of fingerstic ks if consistent ly high. Dementia 52719132 F03.90 Admission BIMs was , but SLUMs was 07/16.Has been invoked, but monitor for ability to uninvoke.C ontinue supportive care, expect decline.Mo nitor mood and behaviors. Psych consult prn. Obstructiv e sleep apnea syndrome 78311030 G47.33 Continue CPAP with sleep, pt sometimes refuses.En courage use and f/u with pulmonary as planned. Chronic ob structive pulmonary disease 38907445 J43.8 As above and albuterol MDI 2 puffs q 6 hrs prn.Monito r resp status. Cirrhosis of liver 007 K74.69 Unclear EtOH hx, but could also be due to Sjogren'sC ontinue spironolac tone 25 mg qdMonitor prn Gastroesop hageal reflux disease 669876074 K21.9 No current sxs.Contin ue famotidine 20 mg BID and pantoprazo le 40 mg qd.Monitor sxs Hypertensive disorder 38 720423 I10 Good control on meds as above.Lennie tor BP and labs. Hyperlipidemia 22856272 E78.49 Continue pravastati n 40 mg qhsMonitor labs as outpt. [id number] [place] [address] [place] [address] 11/16/2023 10:49:02 02/08/2024 09:14:25 Pneumonitis 464738551 J18.9 resolved on first hosp with bipap, high flow oxygen, abx, diuresed, and steriods felt likely to be Sjogren's disease and chfher carvedilol 25 mg po bid, hydralazin e 25 tid , and imdur 20mg daily dc'd in hospitalpl an:finishe d doxycyclin ecarvediol ol 12.5 mg po bid hold sbp <90 hr <60prednis one taper 40 mg po daily x 4 days, and decrease by 10 mg q 5 days to 10mg dailyfuros emide 40 mg po amlow salt diet02 0-4 liters prn sat > 92 %cpap at night, family to be notified by nursing to bring in her CPAPmonito r labs weekly with bmp on mondays fu with pulmonolog y outpt for pneumoniti s, prednisone dosing, Sjorgen's, cpap 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 today at 1130am 213 POCconstan t carb dietmonito r s/s of hyper/hypo glycemia Dementia 68498374 F03.90 11/09/23 SLUMS assessment : [facility] son is hcp . will have him sign MOLSTsuppo rtive caresafety precaution smonitoral ert and oriented x2 today Obstructiv e sleep apnea syndrome 72368935 G47.33 cpap per home useO2 via NCfu with pulmonolog y outpt Chronic ob structive pulmonary disease 00656572 J44.9 albuterol 2 puffs prn wheezing q 6hours hoursmonit or resp status, vitalssee pneumoniti s above Cirrhosis of liver 007 K74.60 spironolac tone 25 mg po q am DC 2/2 hyperkalem iamonitor [facility]rec ent hospital LFT wnl at prior hospital stay Gastroesop hageal reflux disease 986549231 K21.9 cont both meds per hospital recfamotid ine 20 mg po bidpantopr azole 40 mg po q ammonitor Hypertensive disorder 38 536680 I10 losartan decreased to 50mg daily 2/2 hyperkalem iamonitor vitals Hyperlipidemia 70848437 E78.5 pravastati n 40 mg po qhsmonitor Closed fra cture of right ankle 0856743421 1864256 S82.891D right LE splinted. NWBPT/OTfo llow up with orthooxyco done for pain effective. 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 Type 2 matias betes mellitus 53266406 E11.65 Was quite high inpt, was started on Lantus and mealtime lispro.Con tinue Lantus 20 U qd, Janumet XR 50-1000 mg ER qd, Lispro 5U with meals and SS prn.Monito r fingerstic ks TID and HgA1C q 3 months. Dementia 53816284 F02.B0 Continues at mild/mod baseline, varies.Con tinue supportive care, expect decline.HC P invokedMon itor mood and behaviors. Psych consult prn. Obstructiv e sleep apnea syndrome 16577558 G47.33 Pt. sometimes refuses CPAP.Juliana garcia to encourage her to use it for sleep.Lennie tor resp status.F/U as planned. Chronic ob structive pulmonary disease 42912593 J43.8 Will add albuterol nebs q 6 hrs prn as not on d/c med list, not needing recently, but good to have on board if needed.Als o on prednisone for Sjogren's, also will help COPD.Monit or resp status. Cirrhosis of liver 007 K74.69 Was on spironolac tone stopped due to hyperkalem iaMonitor sxs. Gastroesop hageal reflux disease 697579228 K21.9 Continue famotidine 20 mg BID and pantoprazo le 40 mg qd.Monitor sxs Hypertensive disorder 38 164992 I10 Good control on meds as above.Lennie tor BP and labs. Hyperlipidemia 97459443 E78.49 Continue pravastati n 40 mg qdMonitor labs yearly Closed fra cture of right ankle 5376533030 7932532 S82.891D Continue NWB to RLE.Will schedule APAP 1000 mg TID and continue oxy 5 mgNeeds PT/OT for strengthen ing, balance, mobility training, safety and function.C ontinue fall precaution s.Monitor for safety. Acute hyperkalemia 93508 00 E87.5 Now WNL.Monito r Chronic di astolic heart failure 477237158 I50.32 Diuresed during 1st hospitaliz ation.Cont inue carvedilol 12.5 mg BID (decreased inpt), spironolac tone 25 mg qd, losartan 100 mg qd, and lasix 40 mg qd.Continu e low Na+ diet and O2 as needed.Mon itor resp. status, fluid status, wts and labs. [id number] JORGE A SUN NP [address] [address] 11/20/2023 10:19:50 11/21/2023 16:38:46 Closed fracture of right ankle 6214866224 9481967 S82.891D Continue NWB to RLE.Splint in placeWill schedule APAP 1000 mg TID and continue oxy 5 mg q 4 hrs prn - monitor use and effect.Jimmie nd VS, labs, CSM RLE for change.Fol low up with Ortho as sched. - update with concernsNe eds PT/OT for strengthen ing, balance, mobility training, safety and function.C ontinue fall precaution s.Monitor for safety. Pneumonitis 381199149 J1 8.9 Resolved on first hosp with bipap, high flow oxygen, abx, diuresis, and steroids.F elt likely to be Sjogren's disease and CHFContinu e:02 0-4 liters prn - goal sats 88-92% due to COPD/CO2 retention. Continue CPAP at nightConti nue Prednisone taperConti nue Diuretics Monitor VS, sats, LS, labsUpdate Pulmonolog y with concerns - follow up as outpt. 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 Type 2 matias betes mellitus 71336540 E11.9 Most recent A1C 7.9% and 8.1%Contin ue current meds:janum et xr 50-1000 mg qdLantus 20 units q HSlispro 5 untis tid with meals in addition to SSI dosingcons tant carb diet - encourage diet compliance - poor eating habits so far while here - sweets, carbs, fast food brought in by [facility] jose s/s of hyper/hypo glycemia; adjust tx. prn Dementia 18056899 F03.90 11/09/23 SLUMS assessment : 07/16invok ed at [facility], pt son is hcpNot on meds at this time.Juliana nue supportive caremonito r mood, behaviorsP sych eval prn Obstructiv e sleep apnea syndrome 53901993 G47.33 CPAP per home use - continueO2 via NC during the day - goal is to keep O2 sats +/- 90% to avoid CO2 retention. fu with pulmonolog y outpt Chronic ob structive pulmonary disease 29733013 J44.9 Continue O2 during day, attempt titration as able.Keep sats +/- 90% due to concern of CO2 retention. Continue to monitor VS, sats, LS, labs closelyFol low up with Pulmonary outpt. Cirrhosis of liver 21241 007 K74.60 Off aldactone due to high K 6.6 in hosp.On lasix now for diuresis 40 mg qdMonitor LFTsMonito r mentation, NH3 levels prn Gastroesop hageal reflux disease 729176672 K21.9 Currently on 2 meds per hosp. -famotidin e 20 mg po bidpantopr azole 40 mg po q amContinue and monitor sx.Unclear as why she is on 2 - ? due to prednisone use?- consider dose reduction or stopping one of the meds if remains sx. free. Hypertensive disorder 38 927179 I10 Meds adjusted in hosp. due to high KAldactone stopped, remains on lasix 40 mg qd.Continu es on losartan 50mg dailymonit or vitals, labs - adjust tx. prn Hyperlipidemia 10574940 E78.5 continue pravastati n 40 mg po qhsmonitor Acute hyperkalemia 27092 00 E87.5 K 6.6 [facility] hosp. with albuterol, insulin D5, lokelma, and calcium gluconate. Losartan was held and then restarted at lower dose (50 mg qd)Spirono lactone was d/c'd, lasix continued (40 mg qd)Repeat K yesterday 3/4 stable - 4.2monitor BMP weekly for now. Congestive heart failure 23295752 I50.9 [place] partial cause of resp. failure as above.Cont inue:low salt diet - encourage diet compliance (family bringing fast food)lasix 40 mg qdLosartan 50 mg qdAdd daily weightsMon itor LS, sats, labs, weights closely for decompensa tion. [id number] JORGE A SUN NP [place] [address] [place] [address] 11/22/2023 09:01:55 11/27/2023 13:31:16 Closed fracture of right ankle [id number] 0562609 S82.891D Continue NWB to RLE.Splint in placeNow on scheduled APAP 1000 mg TID and oxycodone 5 mg q 4 hrs prn - monitor use and effect.Jimmie nd VS, labs, CSM RLE for change.Fol low up with Ortho as sched. - update with concernsNe eds PT/OT for strengthen ing, balance, mobility training, safety and function.C ontinue fall precaution s.Monitor for safety. Acute hyperkalemia 82705 00 E87.5 K [facility] with albuterol, insulin D5, lokelma, and calcium gluconate. Losartan was held and then restarted at lower dose (50 mg qd)Spirono lactone was d/c'd, lasix continued (40 mg qd)Repeat K yesterday 3/4 stable - 4.2monitor BMP weekly for now. Pneumonitis 980680874 J1 8.9 Resolved on first hosp with bipap, high flow oxygen, abx, diuresis, and steroids.F elt likely to be Sjogren's disease and CHFContinu e:02 0-4 liters prn - goal sats 88-92% due to COPD/CO2 retention. Continue CPAP at nightConti nue Prednisone taperConti nue Diuretics Monitor VS, sats, LS, labsUpdate Pulmonolog y with concerns - follow up as outpt. 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 Congestive heart failure 40110043 I50.9 [place] partial cause of resp. failure as above.Cont inue:low salt diet - encourage diet compliance (family bringing fast food)lasix 40 mg qdLosartan 50 mg qdMonitor daily weightsMon itor LS, sats, labs, weights closely for decompensa tion. Type 2 matias betes mellitus 62163636 E11.9 Most recent A1C 7.9% and 8.1%Contin ue current meds:janum et xr 50-1000 mg qdLantus 20 units q HSlispro 5 untis tid with meals in addition to SSI dosingcons tant carb diet - encourage diet compliance - poor eating habits so far while here - sweets, carbs, fast food brought in by [facility] tor s/s of hyper/hypo glycemia; adjust tx. prn Dementia 00836414 F03.90 11/09/23 SLUMS assessment : 07/16invok ed at [facility], pt son is hcpNot on meds at this time.Juliana nue supportive caremonito r mood, behaviorsP sych eval prn Obstructiv e sleep apnea syndrome 20883820 G47.33 CPAP per home use - continueO2 via NC during the day - goal is to keep O2 sats +/- 90% to avoid CO2 retention. fu with pulmonolog y outpt Chronic ob structive pulmonary disease 24585712 J44.9 Continue O2 during day, attempt titration as able.Keep sats +/- 90% due to concern of CO2 retention. Continue to monitor VS, sats, LS, labs closelyFol low up with Pulmonary outpt. Cirrhosis of liver 007 K74.60 Off aldactone due to high K 6.6 in hosp.On lasix now for diuresis 40 mg qdMonitor LFTsMonito r mentation, NH3 levels prn Gastroesop hageal reflux disease 938890752 K21.9 Currently on 2 meds per hosp. -famotidin e 20 mg po bidpantopr azole 40 mg po q amContinue and monitor sx.Unclear as why she is on 2 - ? due to prednisone use?- consider dose reduction or stopping one of the meds if remains sx. free. Hypertensive disorder 38 691393 I10 Meds adjusted in hosp. due to high KAldactone stopped, remains on lasix 40 mg qd.Continu es on losartan 50mg dailymonit or vitals, labs - adjust tx. prn Hyperlipidemia 19298520 E78.5 continue pravastati n 40 mg po qhsmonitor [id number] JORGE A SUN NP [place] [address] [place] [address] 11/27/2023 09:03:46 11/29/2023 11:47:06 Closed fracture of right ankle [id number] S82.891D Continue NWB to RLE.Seen by Ortho yesterday, fiberglass cast in place.Now on scheduled APAP 1000 mg TID and oxycodone 5 mg q 4 hrs prn - does not appear she has used any oxycodone, will stopTrend VS, labs, CSM RLE for change.Fol low up with Ortho as sched. - update with concernsNe eds PT/OT for strengthen ing, balance, mobility training, safety and function.C ontinue fall precaution s.Monitor for safety. Acute hyperkalemia 87903 00 E87.5 K 6.6 on admit to [facility] corrected in hosp. with albuterol, insulin D5, lokelma, and calcium gluconate. Losartan was held and then restarted at lower dose (50 mg qd)Spirono lactone was d/c'd, lasix continued (40 mg qd)Repeat K yesterday 3/4 stable - 4.2monitor BMP weekly - not being done, will check in am then q sunday x 3 Pneumonitis [id number] J1 8.9 Resolved on first hosp with bipap, high flow oxygen, abx, diuresis, and steroids.F elt likely to be Sjogren's disease and CHFContinu e:02 0-4 liters prn - goal sats 88-92% due to COPD/CO2 retention. Continue CPAP at nightConti nue Prednisone taper - almost completeCo ntinue Diuretics Monitor VS, sats, LS, labsUpdate Pulmonolog y with concerns - follow up as outpt. 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 Congestive heart failure 60530874 I50.9 [place] partial cause of resp. failure as above.Cont inue:low salt diet - encourage diet compliance (family bringing fast food)lasix 40 mg qdLosartan 50 mg qdMonitor daily weights - not being recorded routinely - rerequeste dBMP in am, then q moday x 3Monitor LS, sats, labs, weights closely for decompensa tion. Type 2 matias betes mellitus 12202843 E11.9 Most recent A1C 7.9% and 8.1%Contin ue current meds:janum et xr 50-1000 mg qdLantus 20 units q HSlispro 5 untis tid with meals in addition to SSI dosingcons tant carb diet - encourage diet compliance - poor eating habits so far while here - sweets, carbs, fast food brought in by [facility] tor s/s of hyper/hypo glycemia; adjust tx. prn Dementia [id number] F03.90 11/09/23 SLUMS assessment : 07/16invok ed at [facility], pt son is hcpNot on meds at this time.Juliana nue supportive caremonito r mood, behaviorsP sych eval prn Obstructiv e sleep apnea syndrome 50403391 G47.33 CPAP per home use - continueO2 via NC during the day - goal is to keep O2 sats +/- 90% to avoid CO2 retention. fu with pulmonolog y outpt Chronic ob structive pulmonary disease 95049248 J44.9 Continue O2 during day, attempt titration as able.Keep sats +/- 90% due to concern of CO2 retention. Continue to monitor VS, sats, LS, labs closelyFol low up with Pulmonary outpt. Cirrhosis of liver 007 K74.60 Off aldactone due to high K 6.6 in hosp.On lasix now for diuresis 40 mg qdMonitor LFTsMonito r mentation, NH3 levels prn Gastroesop hageal reflux disease [id number] K21.9 Currently on 2 meds per hosp. -famotidin e 20 mg po bidpantopr azole 40 mg po q amContinue and monitor sx.Unclear as why she is on 2 - ? due to prednisone use?- consider dose reduction or stopping one of the meds if remains sx. free. Hypertensive disorder 38 974755 I10 Meds adjusted in hosp. due to high KAldactone stopped, remains on lasix 40 mg qd.Continu es on losartan 50mg dailymonit or vitals, labs - adjust tx. prn Hyperlipidemia 27539341 E78.5 continue pravastati n 40 mg po qhsmonitor [id number] JORGE A SUN NP [place] [address] [place] [address] 11/29/2023 09:10:48 12/03/2023 12:05:19 Closed fracture of right ankle [id number] S82.891D Continue NWB to RLE.Seen by Ortho 11/25, fiberglass cast in place, +CSM R toesNow on scheduled APAP 1000 mg TIDTrend VS, labs, CSM RLE for change.Fol low up with Ortho as sched. - update with concernsNe eds PT/OT for strengthen ing, balance, mobility training, safety and function.C ontinue fall precaution s.Monitor for safety. Acute hyperkalemia 26911 00 E87.5 K 6.6 on admit to [facility] corrected in hosp. with albuterol, insulin D5, lokelma, and calcium gluconate. Losartan was held and then restarted at lower dose (50 mg qd)Spirono lactone was d/c'd, lasix continued (40 mg qd)Repeat K stable - 4.2monitor BMP weekly - not being done, will check in am then q sunday x 3 Pneumonitis [id number] J1 8.9 Resolved on first hosp with bipap, high flow oxygen, abx, diuresis, and steroids.F elt likely to be Sjogren's disease and CHFContinu e:02 0-4 liters prn - goal sats 88-92% due to COPD/CO2 retention. Continue CPAP at night - encourage compliance Continue Prednisone taper - now down to 10 mg qd - will continue at this dose for nowContinu e Diuretics Monitor VS, sats, LS, labsUpdate Pulmonolog y with concerns - follow up obtained for 12/[address] 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 12/03 Congestive heart failure 60167554 I50.9 [place] partial cause of resp. failure as above.Cont inue:low salt diet - encourage diet compliance (family bringing fast food)lasix 40 mg qd -> increase to bid x 3 daysOff aldactone due to high K, but may need to use intermitte ntlyLosart an 50 mg qdMonitor daily weightsBMP in am, then q sunday x 3Monitor LS, sats, labs, weights closely for decompensa tion.Has pulm. f/u 12/03 Type 2 matias betes mellitus 18139046 E11.9 Most recent A1C 7.9% and 8.1%Contin ue current meds:janum et xr 50-1000 mg qdLantus 20 units q HSlispro 5 untis tid with meals in addition to SSI dosingcons tant carb diet - encourage diet compliance - poor eating habits so far while here - sweets, carbs, fast food brought in by [facility] jose s/s of hyper/hypo glycemia; adjust tx. prn Dementia [id number] F03.90 11/09/23 SLUMS assessment : 07/16invok ed at [facility], pt son is hcpNot on meds at this time.Juliana nue supportive caremonito r mood, behaviorsP sych eval prn Obstructiv e sleep apnea syndrome 53175309 G47.33 CPAP per home use - continueO2 via NC during the day - goal is to keep O2 sats +/- 90% to avoid CO2 retention. fu with pulmonolog y 12/03 Chronic ob structive pulmonary disease 79191457 J44.9 Continue O2 during day, attempt titration as able.Keep sats +/- 90% due to concern of CO2 retention. Continue to monitor VS, sats, LS, labs closelyFol low up with Pulmonary outpt. 12/03 Cirrhosis of liver 31418 007 K74.60 Off aldactone due to high K 6.6 in hosp.On lasix now for diuresis 40 mg qdMonitor LFTsMonito r mentation, NH3 level x 1 12/02 Gastroesop hageal reflux disease 731460560 K21.9 Currently on 2 meds per hosp. -famotidin e 20 mg po bidpantopr azole 40 mg po q amContinue and monitor sx.Unclear as why she is on 2 - ? due to prednisone use?- consider dose reduction or stopping one of the meds if remains sx. free. Hypertensive disorder 38 114036 I10 Meds adjusted in hosp. due to high KAldactone stopped, remains on lasix 40 mg qd.Continu es on losartan 50mg dailymonit or vitals, labs - adjust tx. prn Hyperlipidemia 75019135 E78.5 continue pravastati n 40 mg po qhsmonitor [id number] JORGE A SUN NP [address] [place] [address] 12/04/2023 10:00:45 12/06/2023 13:01:40 Closed fracture of right ankle [id number] [id number] S82.891D Continue NWB to RLE.Seen by Ortho 11/25, fiberglass cast in place, +CSM R toesNow on scheduled APAP 1000 mg TID - managing pain - change to prn due to liver diseaseTre nd VS, labs, CSM RLE for change.Fol low up with Ortho as sched. - update with concernsNe eds PT/OT for strengthen ing, balance, mobility training, safety and function.C ontinue fall precaution s.Monitor for safety. Acute hyperkalemia 81953 00 E87.5 K 6.6 on admit to [facility] corrected in hosp. with albuterol, insulin D5, lokelma, and calcium gluconate. Losartan was held and then restarted at lower dose (50 mg qd)Spirono lactone was d/c'd, lasix continued (40 mg qd)Repeat K stable - 4.8monitor BMP weekly - not being done, will check in am then q sunday x 3 Pneumonitis 384417136 J1 8.9 Resolved on first hosp with bipap, high flow oxygen, abx, diuresis, and steroids.F elt likely to be Sjogren's disease and CHFContinu e:02 0-4 liters prn - goal sats 88-92% due to COPD/CO2 retention. Continue CPAP at night - encourage compliance Continue Prednisone taper - now down to 10 mg qd - will continue at this dose for nowContinu e DiureticsC XR 11/28 NAD - need copy from [facility] itor VS, sats, LS, labsUpdate Pulmonolog y with concerns - has appt. today 12/[address] 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 12/03 Congestive heart failure 62001734 I50.9 [place] partial cause of resp. failure as above.Cont inue:low salt diet - encourage diet compliance (family bringing fast food)lasix 40 mg qdOff aldactone due to high K, but may need to use intermitte ntlyLosart an 50 mg qdMonitor daily weightsBMP q sunday x 3Monitor LS, sats, labs, weights closely for decompensa tion.Has pulm. f/u 12/03 Type 2 matias betes mellitus 54115497 E11.9 Most recent A1C 7.9% and 8.1%BS 100s-200sC ontinue current meds:janum et xr 50-1000 mg qdLantus 20 units q HSlispro 5 untis tid with meals in addition to SSI dosingcons tant carb diet - encourage diet compliance - poor eating habits so far while here - sweets, carbs, fast food brought in by [facility] jose s/s of hyper/hypo glycemia; adjust tx. prn Dementia [id number] F03.90 11/09/23 SLUMS assessment : 07/16invok ed at [facility], pt son is hcpNot on meds at this time.Juliana nue supportive caremonito r mood, behaviorsP sych eval prn Obstructiv e sleep apnea syndrome 46919923 G47.33 CPAP per home use - continueO2 via NC during the day - goal is to keep O2 sats +/- 90% to avoid CO2 retention. fu with pulmonolog y 12/03 Chronic ob structive pulmonary disease 93108024 J44.9 Continue O2 during day, attempt titration as able.Keep sats +/- 90% due to concern of CO2 retention. Continue to monitor VS, sats, LS, labs closelyFol low up with Pulmonary outpt. 12/03 Cirrhosis of liver 007 K74.60 Off aldactone due to high K 6.6 in hosp.On lasix now for diuresis 40 mg qdMonitor LFTsMonito r mentation, NH3 level 45 Gastroesop hageal reflux disease 285034388 K21.9 Currently on 2 meds per hosp. -famotidin e 20 mg po bidpantopr azole 40 mg po q amContinue and monitor sx.Unclear as why she is on 2 - ? due to prednisone use?- consider dose reduction or stopping one of the meds if remains sx. free. Hypertensive disorder 38 522197 I10 Meds adjusted in hosp. due to high KAldactone stopped, remains on lasix 40 mg qd.Continu es on losartan 50mg dailymonit or vitals, labs - adjust tx. prn Hyperlipidemia 51179321 E78.5 continue pravastati n 40 mg po qhsmonitor [id number] JORGE A SUN, CLAUDIA [address] [address] 12/06/2023 08:40:54 12/10/2023 11:54:53 Closed fracture of right ankle [id number] 5070771 S82.891D Continue NWB to RLE.Seen by Ortho 11/25, fiberglass cast in place, +CSM R toesNow on scheduled APAP 1000 mg TID - managing pain - change to prn due to liver diseaseTre nd VS, labs, CSM RLE for change.Fol low up with Ortho as sched. - update with concernsNe eds PT/OT for strengthen ing, balance, mobility training, safety and function.C ontinue fall precaution s.Monitor for safety. Acute hyperkalemia 30958 00 E87.5 K 6.6 on admit to [facility] corrected in hosp. with albuterol, insulin D5, lokelma, and calcium gluconate. Losartan was held and then restarted at lower dose (50 mg qd)Spirono lactone was d/c'd, lasix continued (40 mg qd)Repeat K stable - 4.8monitor BMP weekly - not being done, will check in am then q sunday x 3 Pneumonitis 440116398 J1 8.9 Resolved on first hosp with bipap, high flow oxygen, abx, diuresis, and steroids.F elt likely to be Sjogren's disease and CHFContinu e:02 0-4 liters prn - goal sats 88-92% due to COPD/CO2 retention. Continue CPAP at night - encourage compliance Continue Prednisone taper - now down to 10 mg qd - will continue at this dose for nowContinu e DiureticsC XR 11/28 NAD - need copy from [facility] itor VS, sats, LS, labsUpdate Pulmonolog y with concerns - has appt. 12/[address] 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 12/10Adding prn albuterol updrafts q 4 prn as nsg did report some wheezing at times. Congestive heart failure 32971926 I50.9 [place] partial cause of resp. failure as above.Cont inue:low salt diet - encourage diet compliance (family bringing fast food)lasix 40 mg qdOff aldactone due to high K, but may need to use intermitte ntlyLosart an 50 mg qdMonitor daily weightsBMP q sunday x 3Monitor LS, sats, labs, weights closely for decompensa tion.Has pulm. f/u 12/03 Type 2 matias betes mellitus 39178868 E11.9 Most recent A1C 7.9% and 8.1%BS 100s-200sC ontinue current meds:janum et xr 50-1000 mg qdLantus 20 units q HSlispro 5 untis tid with meals in addition to SSI dosingcons tant carb diet - encourage diet compliance - poor eating habits so far while here - sweets, carbs, fast food brought in by [facility] tor s/s of hyper/hypo glycemia; adjust tx. prn Dementia 71724757 F03.90 11/09/23 SLUMS assessment : 07/16invok ed at [facility], pt son is hcpNot on meds at this time.Juliana nue supportive caremonito r mood, behaviorsP sych eval prn Obstructiv e sleep apnea syndrome 43390294 G47.33 CPAP per home use - continueO2 via NC during the day - goal is to keep O2 sats +/- 90% to avoid CO2 retention. fu with pulmonolog y 12/03 Chronic ob structive pulmonary disease 97557275 J44.9 Continue O2 during day, attempt titration as able.Keep sats +/- 90% due to concern of CO2 retention. Continue to monitor VS, sats, LS, labs closelyFol low up with Pulmonary outpt. 12/10Adding prn albuterol updrafts q 4 hrs prn as nsg. did report some wheezing Cirrhosis of liver 007 K74.60 Off aldactone due to high K 6.6 in hosp.On lasix now for diuresis 40 mg qdMonitor LFTsMonito r mentation, NH3 level 45 Gastroesop hageal reflux disease 352201140 K21.9 Currently on 2 meds per hosp. -famotidin e 20 mg po bidpantopr azole 40 mg po q amContinue and monitor sx.Unclear as why she is on 2 - ? due to prednisone use?- consider dose reduction or stopping one of the meds if remains sx. free. Hypertensive disorder 38 604339 I10 Meds adjusted in hosp. due to high KAldactone stopped, remains on lasix 40 mg qd.Continu es on losartan 50mg dailymonit or vitals, labs - adjust tx. prn Hyperlipidemia 61571612 E78.5 continue pravastati n 40 mg po qhsmonitor [id number] JORGE A SUN, CLAUDIA [place] [address] [place] [address] 12/11/2023 09:20:29 12/13/2023 11:54:49 Closed fracture of right ankle [id number] 5573126 S82.891D Continue NWB to RLE.Seen by Ortho 11/25, fiberglass cast in place, +CSM R toesContin ue prn APAP for pain - currently comfortabl e.Trend VS, labs, CSM RLE for change.Fol low up with Ortho as sched. - update with concernsNe eds PT/OT for strengthen ing, balance, mobility training, safety and function.C ontinue fall precaution s.Monitor for safety. Acute hyperkalemia 00096 00 E87.5 K 6.6 on admit to [facility] corrected in hosp. with albuterol, insulin D5, lokelma, and calcium gluconate. Losartan was held and then restarted at lower dose (50 mg qd)Spirono lactone was d/c'd, lasix continued (40 mg qd)Repeat K stable - 4monitor BMP weekly - not being done, will check in am then q sunday x 3 Pneumonitis 356922695 J1 8.9 Resolved on first hosp with bipap, high flow oxygen, abx, diuresis, and steroids.F elt likely to be Sjogren's disease and CHFContinu e:02 0-4 liters prn - goal sats 88-92% due to COPD/CO2 retention. Continue CPAP at night - encourage compliance Continue Prednisone taper - now down to 10 mg qd - will continue at this dose for nowContinu e DiureticsC XR 11/28 NADMonitor VS, sats, LS, labsUpdate Pulmonolog y with concerns - has appt. 12/[address] 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 12/10Added prn albuterol updrafts q 4 prn as nsg did report some wheezing at times. Congestive heart failure 05439098 I50.9 [place] partial cause of resp. failure as above.Cont inue:low salt diet - encourage diet compliance (family bringing fast food)lasix 40 mg qdOff aldactone due to high K, but may need to use intermitte ntlyLosart an 50 mg qdMonitor daily weightsBMP q sunday x 3Monitor LS, sats, labs, weights closely for decompensa tion.Has pulm. f/u 12/10 Type 2 matias betes mellitus 93859309 E11.9 Most recent A1C 7.9% and 8.1%BS 100s, occ. 200sContin ue current meds:janum et xr 50-1000 mg qdLantus 20 units q HSlispro 5 untis tid with meals in addition to SSI dosingcons tant carb diet - encourage diet compliance - poor eating habits so far while here - sweets, carbs, fast food brought in by [employer] [facility] s/s of hyper/hypo glycemia; adjust tx. prn Dementia 70207257 F03.90 11/09/23 SLUMS assessment : 07/16invok ed at [facility], pt son is hcpNot on meds at this time.Juliana nue supportive caremonito r mood, behaviorsP sych eval prn Obstructiv e sleep apnea syndrome 19920367 G47.33 CPAP per home use - continueO2 via NC during the day - goal is to keep O2 sats +/- 90% to avoid CO2 retention. fu with pulmonolog y 12/10 Chronic ob structive pulmonary disease 20479094 J44.9 Continue O2 during day, attempt titration as able.Keep sats +/- 90% due to concern of CO2 retention. Continue to monitor VS, sats, LS, labs closelyFol low up with Pulmonary outpt. 12/10Added prn albuterol updrafts q 4 hrs prn as nsg. did report some wheezing Cirrhosis of liver 007 K74.60 Off aldactone due to high K 6.6 in hosp.On lasix now for diuresis 40 mg qdMonitor LFTsMonito r mentation, NH3 level 41 Gastroesop hageal reflux disease 889529376 K21.9 Currently on 2 meds per hosp. -famotidin e 20 mg po bidpantopr azole 40 mg po q amContinue and monitor sx.Unclear as why she is on 2 - ? due to prednisone use?- consider dose reduction or stopping one of the meds if remains sx. free. Hypertensive disorder 38 951701 I10 Meds adjusted in hosp. due to high KAldactone stopped, remains on lasix 40 mg qd.Continu es on losartan 50mg dailymonit or vitals, labs - adjust tx. prn Hyperlipidemia 35919720 E78.5 continue pravastati n 40 mg po qhsmonitor [id number] JORGE A SUN NP [address] [place] [address] 12/13/2023 10:23:57 12/19/2023 19:45:48 Closed fracture of right ankle [id number] 7663047 S82.891D Continue NWB to RLE.Seen by Ortho 11/25, fiberglass cast in place, +CSM R toesContin ue prn APAP for pain - currently comfortabl e.Trend VS, labs, CSM RLE for change.Fol low up with Ortho as sched. - update with concernsNe eds PT/OT for strengthen ing, balance, mobility training, safety and function.C ontinue fall precaution s.Monitor for safety. Acute hyperkalemia 02218 00 E87.5 K 6.6 on admit to [facility] corrected in hosp. with albuterol, insulin D5, lokelma, and calcium gluconate. Losartan was held and then restarted at lower dose (50 mg qd)Spirono lactone was d/c'd, lasix continued (40 mg qd)Repeat K stable - 4monitor BMP weekly - not being done, will check in am then q sunday x 3 Pneumonitis 646410878 J1 8.9 Resolved on first hosp with bipap, high flow oxygen, abx, diuresis, and steroids.F elt likely to be Sjogren's disease and CHFContinu e:02 0-4 liters prn - goal sats 88-92% due to COPD/CO2 retention. 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 12/10 - checking CXR and chest CT, sleep study with follow up after testing.Ad ded prn albuterol updrafts q 4 prn as nsg did report some wheezing at times. Congestive heart failure 87737640 I50.9 [place] partial cause of resp. failure as above.Cont inue:low salt diet - encourage diet compliance (family bringing fast food)lasix 40 mg qdOff aldactone due to high K, but may need to use intermitte ntlyLosart an 50 mg qdMonitor daily weightsBMP q sunday x 3Monitor LS, sats, labs, weights closely for decompensa tion.Had pulm. f/u 12/10 Type 2 matias danna mellitus 54516250 E11.9 Most recent A1C 7.9% and 8.1%BS 100s, occ. 200sContin ue current meds:janum et xr 50-1000 mg qdLantus 20 units q HSlispro 5 untis tid with meals in addition to SSI dosingcons tant carb diet - encourage diet compliance - poor eating habits so far while here - sweets, carbs, fast [facility] s/s of hyper/hypo glycemia; adjust tx. prn Dementia 78371002 F03.90 11/09/23 SLUMS assessment : 07/16invok ed at [facility], pt son is hcpNot on meds at this time.Juliana nue supportive caremonito r mood, behaviorsP sych eval prn Obstructiv e sleep apnea syndrome 28498170 G47.33 CPAP per home use - continueO2 via NC during the day - goal is to keep O2 sats +/- 90% to avoid CO2 retention. fu with pulmonolog y 12/10 - to get repeat sleep study then follow up appt. Chronic ob structive pulmonary disease 36578828 J44.9 Continue O2 during day, attempt titration as able.Keep sats +/- 90% due to concern of CO2 retention. Continue to monitor VS, sats, LS, labs closelyFol low up with Pulmonary outpt. as sched.Adde d prn albuterol updrafts q 4 hrs prn as nsg. did report some wheezing Cirrhosis of liver 007 K74.60 Off aldactone due to high K 6.6 in hosp.On lasix now for diuresis 40 mg qdMonitor LFTsMonito r mentation, NH3 level 41 Gastroesop hageal reflux disease 818444773 K21.9 Currently on 2 meds per hosp. -famotidin e 20 mg po bidpantopr azole 40 mg po q amContinue and monitor sx.Unclear as why she is on 2 - ? due to prednisone use?- consider dose reduction or stopping one of the meds if remains sx. free. Hypertensive disorder 38 599941 I10 Meds adjusted in hosp. due to high KAldactone stopped, remains on lasix 40 mg qd.Continu es on losartan 50mg dailymonit or vitals, labs - adjust tx. prn Hyperlipidemia 99989154 E78.5 continue pravastati n 40 mg po qhsmonitor [id number] JORGE A SUN NP [place] [address] [place] [address] 12/18/2023 10:45:27 12/19/2023 19:51:09 Closed fracture of right ankle [id number] 6382435 S82.891D Continue NWB to RLE.Seen by Ortho 11/25, fiberglass cast in placeNo pain - continue prn APAP.Trend VS, labs, CSM RLE for change.Fol low up with Ortho as sched. - update with concernsNe eds PT/OT for strengthen ing, balance, mobility training, safety and function.C ontinue fall precaution s.Monitor for safety. Acute hyperkalemia 14664 00 E87.5 K 6.6 on admit to [facility] corrected in hosp. with albuterol, insulin D5, lokelma, and calcium gluconate. Losartan was held and then restarted at lower dose (50 mg qd)Spirono lactone was d/c'd, lasix continued (40 mg qd)Repeat K stable - 3.6monitor BMP weekly - not being done, will check in am then q sunday x 3 Pneumonitis 167909634 J1 8.9 Resolved on first hosp with bipap, high flow oxygen, abx, diuresis, and steroids.F elt likely to be Sjogren's disease and CHFContinu e:02 0-4 liters prn - goal sats 88-92% due to COPD/CO2 retention. Continue CPAP at night - encourage compliance Continue Prednisone taper - now down to 10 mg qd - will reduce to 5 mg qd. 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 12/10 - CXR results forwarded to office. Chest CT, sleep study to be sched. by office with OV follow up after testing.Ad ded prn albuterol updrafts q 4 prn as nsg did report some wheezing at times - continue. Congestive heart failure [id number] I50.9 [place] partial cause of resp. failure as above.Cont inue:low salt diet - encourage diet compliance (family bringing fast food)lasix 40 mg qdOff aldactone due to high K, but may need to use intermitte ntlyLosart an 50 mg qdMonitor daily weightsBMP q sunday x 3Monitor LS, sats, labs, weights closely for decompensa tion.Had pulm. f/u 12/10 Type 2 matias betes mellitus [id number] E11.9 Most recent A1C 7.9% and 8.1%BS 100s, occ. 200sContin ue current meds:janum et xr 50-1000 mg qdLantus 20 units q HSlispro 5 untis tid with meals in addition to SSI dosingcons tant carb diet - encourage diet compliance - poor eating habits so far while here - sweets, carbs, fast food brought in by [facility] s/s of hyper/hypo glycemia; adjust tx. prnReducin g Pred. dose to 5 mg qd Dementia [id number] F03.90 11/09/23 [facility] assessment : 07/16invok ed at [facility], pt son is hcpNot on meds at this time.Juliana nue supportive caremonito r mood, behaviorsP sych eval prn Obstructiv e sleep apnea syndrome 73931736 G47.33 CPAP per home use - continue - encourage compliance , refuses use at times per staff.O2 via NC during the day - goal is to keep O2 sats +/- 90% to avoid CO2 retention. fu with pulmonolog y 12/10 - to get repeat sleep study then follow up appt. Chronic ob structive pulmonary disease 28469585 J44.9 Continue O2 during day, attempt titration as able.Keep sats +/- 90% due to concern of CO2 retention. Continue to monitor VS, sats, LS, labs closelyFol low up with Pulmonary outpt. as sched.Adde d prn albuterol updrafts q 4 hrs prn as nsg. did report some wheezing Cirrhosis of liver 007 K74.60 Off aldactone due to high K 6.6 in hosp.On lasix now for diuresis 40 mg qdMonitor LFTsMonito r mentation, NH3 level 29 Gastroesop hageal reflux disease 493008745 K21.9 Currently on 2 meds per hosp. -famotidin e 20 mg po bidpantopr azole 40 mg po q amContinue and monitor sx.Unclear as why she is on 2 - ? due to prednisone use?- consider dose reduction or stopping one of the meds if remains sx. free. Hypertensive disorder 38 139090 I10 Meds adjusted in hosp. due to high KAldactone stopped, remains on lasix 40 mg qd.Continu es on losartan 50mg dailymonit or vitals, labs - adjust tx. prn Hyperlipidemia 49799790 E78.5 continue pravastati n 40 mg po qhsmonitor [id number] JORGE A SUN, CLAUDIA [address] [address] 12/20/2023 10:39:01 12/27/2023 15:07:31 Closed fracture of right ankle [id number] S82.891D No changeCont inue NWB to RLE.Seen by Ortho 11/25, fiberglass cast in placeDenie s pain - continue prn APAP.Trend VS, labs, CSM RLE for change.Fol low up with Ortho as sched. - update with concernsNe eds PT/OT for strengthen ing, balance, mobility training, safety and function.C ontinue fall precaution s.Monitor for safety. Acute hyperkalemia 98547 00 E87.5 K 6.6 on admit to [facility] corrected in hosp. with albuterol, insulin D5, lokelma, and calcium gluconate. Losartan was held and then restarted at lower dose (50 mg qd)Spirono lactone was d/c'd, lasix continued (40 mg qd)Repeat K stable - 3.6monitor BMP weekly - not being done, will check in am then q sunday x 3 Pneumonitis [id number] J1 8.9 Resolved on first hosp with bipap, high flow oxygen, abx, diuresis, and steroids.F elt likely to be Sjogren's disease and CHFContinu e:02 0-4 liters prn - goal sats 88-92% due to COPD/CO2 retention. Continue CPAP at night - encourage compliance Continue Prednisone taper - reduced to 5 mg qd. 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 12/10 - CXR results forwarded to office. Chest CT, sleep study to be sched. by office with OV follow up after testing.Ad ded prn albuterol updrafts q 4 prn as nsg did report some wheezing at times - continue. Congestive heart failure 75061730 I50.9 [place] partial cause of resp. failure as above.Cont inue:low salt diet - encourage diet compliance (family bringing fast food)lasix 40 mg qdOff aldactone due to high K, but may need to use intermitte ntlyLosart an 50 mg qdMonitor daily weightsBMP q sunday x 3Monitor LS, sats, labs, weights closely for decompensa tion.Had pulm. f/u 12/10 Type 2 matias betes mellitus 91642988 E11.9 Most recent A1C 7.9% and 8.1%BS 100s, occ. 200sContin ue current meds:janum et xr 50-1000 mg qdLantus 20 units q HSlispro 5 untis tid with meals in addition to SSI dosingcons tant carb diet - encourage diet compliance - poor eating habits so far while here - sweets, carbs, fast food brought in by [facility] tor s/s of hyper/hypo glycemia; adjust tx. prnReducin g Pred. dose to 5 mg qd Dementia [id number] F03.90 11/09/23 [facility] assessment : 07/16invok ed at [facility], pt son is hcpNot on meds at this time.Juliana nue supportive caremonito r mood, behaviorsP sych eval prn Obstructiv e sleep apnea syndrome 63604635 G47.33 CPAP per home use - continue - encourage compliance , refuses use at times per staff.O2 via NC during the day - goal is to keep O2 sats +/- 90% to avoid CO2 retention. fu with pulmonolog y 12/10 - to get repeat sleep study then follow up appt. Chronic ob structive pulmonary disease 31813539 J44.9 Continue O2 during day, attempt titration as able.Keep sats +/- 90% due to concern of CO2 retention. Continue to monitor VS, sats, LS, labs closelyFol low up with Pulmonary outpt. as sched.Adde d prn albuterol updrafts q 4 hrs prn as nsg. did report some wheezingTa pering off prednisone , currently 5 mg qd. Cirrhosis of liver 007 K74.60 Off aldactone due to high K 6.6 in hosp.On lasix now for diuresis 40 mg qdMonitor LFTsMonito r mentation, NH3 level 29 Gastroesop hageal reflux disease 134639951 K21.9 Currently on 2 meds per hosp. -famotidin e 20 mg po bidpantopr azole 40 mg po q amContinue and monitor sx.Unclear as why she is on 2 - ? due to prednisone use?- consider dose reduction or stopping one of the meds if remains sx. free. Hypertensive disorder 38 212162 I10 Meds adjusted in hosp. due to high KAldactone stopped, remains on lasix 40 mg qd.Continu es on losartan 50mg dailymonit or vitals, labs - adjust tx. prn Hyperlipidemia 50377175 E78.5 continue pravastati n 40 mg po qhsmonitor [id number] JORGE A SUN NP [place] [address] [place] [address] 12/25/2023 09:28:18 12/27/2023 15:25:29 Closed fracture of right ankle [id number] S82.891D Ortho consult 8Now in walking bootWBATCo ntinue PT OT for strengthen ing, balance, mobility training, safety and function.D enies pain - continue prn APAP.Trend VS, labs, CSM RLE for change.Ort ho follow up in 6 wks, update with concernsCo ntinue fall precaution s.Monitor for safety. Acute hyperkalemia 75986 00 E87.5 Now resolved.K 6.6 [facility] admit [facility] corrected in hosp. with albuterol, insulin D5, lokelma, and calcium gluconate. Losartan was held and then restarted at lower dose (50 mg qd)Spirono lactone was d/c'd, lasix continued (40 mg qd)Repeat K stable here since admission Pneumonitis 917929171 J1 8.9 Resolved on first hosp with bipap, high flow oxygen, abx, diuresis, and steroids.F elt likely to be Sjogren's disease and CHFContinu e:02 0-4 liters prn - goal sats 88-92% due to COPD/CO2 retention. Continue CPAP at night - encourage compliance , does not like to wearContin ue Prednisone taper - reduced to 5 mg qd, scotty. 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 12/10 - CXR results forwarded to office. Chest CT, sleep study to be sched. by office with OV follow up after testing.Ad ded prn albuterol updrafts q 4 prn as nsg did report some wheezing at times - continue. Congestive heart failure 56273868 I50.9 [place] partial cause of resp. failure as above.Cont inue:low salt diet - encourage diet compliance (family bringing fast food)lasix 40 mg qdLosartan 50 mg qdMonitor daily weightsBMP stableMoni tor LS, sats, labs, weights closely for decompensa tion.Off aldactone due to high K, but may need to use intermitte ntly.Had pulm. f/u 12/10 Type 2 matias betes mellitus 02803612 E11.9 Most recent A1C 7.9% and 8.1%BS 100s, occ. 200sContin ue current meds:janum et xr 50-1000 mg qdLantus 20 units q HSlispro 5 untis tid with meals in addition to SSI dosingcons tant carb diet - encourage diet compliance - poor eating habits so far while here - sweets, carbs, fast food brought in by [employer] g[employer] s/s of hyper/hypo glycemia; adjust tx. prnReducin g Pred. dose to 2.5 mg qd x 7 d, then stop Dementia [id number] F03.90 11/09/23 [facility] assessment : 07/16invok ed at [facility], pt son is hcpNot on meds at this time.Juliana nue supportive caremonito r mood, behaviorsP sych eval prn Obstructiv e sleep apnea syndrome 28230946 G47.33 CPAP per home use - continue - encourage compliance , refuses use at times per staff.O2 via NC during the day - goal is to keep O2 sats +/- 90% to avoid CO2 retention. Had f/u with pulmonolog y 12/10 - to get repeat sleep study then follow up appt. Chronic ob structive pulmonary disease 09601707 J44.9 Continue O2 during day, attempt titration as able.Keep sats +/- 90% due to concern of CO2 retention. Continue to monitor VS, sats, LS, labs closelyFol low up with Pulmonary outpt. as sched.Adde d prn albuterol updrafts q 4 hrs prn as nsg. did report some wheezingTa pering off prednisone , currently 5 mg qd, reduce to 2.5 mg qd x 7d, then stop. Cirrhosis of liver 007 K74.60 Off aldactone due to high K 6.6 in hosp.On lasix now for diuresis 40 mg qdMonitor LFTsMonito r mentation, NH3 level WNR Gastroesop hageal reflux disease 217129389 K21.9 Currently on 2 meds per hosp. -famotidin e 20 mg po bidpantopr azole 40 mg po q amContinue and monitor sx.Unclear as why she is on 2 - ? due to prednisone use?Plan - reduce pantoprazo le to 20 mg qd.Monitor sx. Hypertensive disorder 38 275889 I10 VSSMeds adjusted in hosp. due to high KAldactone stopped, remains on lasix 40 mg qd.Continu es on losartan 50mg dailymonit or vitals, labs - adjust tx. prn Hyperlipidemia 42626276 E78.5 continue pravastati n 40 mg po qhsmonitor [id number] JORGE A SUN NP [place] [address] [address] [place] [address] 12/27/2023 12:30:33 12/27/2023 15:31:20 Closed fracture of right ankle [id number] 9544131 S82.891D Ortho consult 12/23Now in walking bootWBATCo ntinue PT OT for strengthen ing, balance, mobility training, safety and function.D enies pain - continue prn APAP.Trend VS, labs, CSM RLE for change.Ort ho follow up in 6 wks, update with concernsCo ntinue fall precaution s.Monitor for safety. Acute hyperkalemia 02148 00 E87.5 Now resolved.K 6.6 on admit to [facility] corrected in hosp. with albuterol, insulin D5, lokelma, and calcium gluconate. Losartan was held and then restarted at lower dose (50 mg qd)Spirono lactone was d/c'd, lasix continued (40 mg qd)Repeat K stable here since admission Pneumonitis 587565476 J1 8.9 Resolved on first hosp with bipap, high flow oxygen, abx, diuresis, and steroids.F elt likely to be Sjogren's disease and CHFContinu e:02 0-4 liters prn - goal sats 88-92% due to COPD/CO2 retention. 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 12/10 - CXR results forwarded to office. Chest CT, sleep study to be sched. by office with OV follow up after testing.Ad ded prn albuterol updrafts q 4 prn as nsg did report some wheezing at times - continue. Congestive heart failure 95652189 I50.9 [place] partial cause of resp. failure as above.Cont inue:low salt diet - encourage diet compliance (family bringing fast food)lasix 40 mg qdLosartan 50 mg qdMonitor daily weights - creeping up but does not appear fluid overloaded at this time.BMP stableMoni tor LS, sats, labs, weights closely for decompensa tion.Off aldactone due to high K, but may need to use intermitte ntly.Had pulm. f/u 12/10 Type 2 matias betes mellitus 82094262 E11.9 Most recent A1C 7.9% and 8.1%BS 100s, occ. 200sContin ue current meds:janum et xr 50-1000 mg qdLantus 20 units q HSlispro 5 untis tid with meals in addition to SSI dosingcons tant carb diet - encourage diet compliance - poor eating habits so far while here - sweets, carbs, fast food brought in by [facility] s/s of hyper/hypo glycemia; adjust tx. prnReducin g Pred. dose to 2.5 mg qd x 7 d, then stop Dementia 82546227 F03.90 11/09/23 [facility] assessment : 07/16invok ed at [facility], pt son is hcpNot on meds at this time.Juliana nue supportive caremonito r mood, behaviorsP sych eval prn Obstructiv e sleep apnea syndrome 15512110 G47.33 CPAP per home use - continue - encourage compliance , refuses use at times per staff.O2 via NC during the day - goal is to keep O2 sats +/- 90% to avoid CO2 retention. Had f/u with pulmonolog y 12/10 - to get repeat sleep study then follow up appt. Chronic ob structive pulmonary disease 30128862 J44.9 Continue O2 during day, attempt titration as able.Keep sats +/- 90% due to concern of CO2 retention. Continue to monitor VS, sats, LS, labs closelyFol low up with Pulmonary outpt. as sched.Adde d prn albuterol updrafts q 4 hrs prn as nsg. did report some wheezingTa pering off prednisone , currently 2.5 mg qd x 7d, then stop. Cirrhosis of liver 007 K74.60 Off aldactone due to high K 6.6 in hosp.On lasix now for diuresis 40 mg qdMonitor LFTsMonito r mentation, NH3 level WNR Gastroesop hageal reflux disease 652570729 K21.9 Currently on 2 meds per hosp. -famotidin e 20 mg po bidpantopr azole 40 mg po q am - reduced to 20 mg qd on ontinu e and monitor sx.Unclear as why she is on 2 - ? due to prednisone use? Monitor sx. Hypertensive disorder 38 068946 I10 VSSMeds adjusted in hosp. due to high KAldactone stopped, remains on lasix 40 mg qd.Continu es on losartan 50mg dailymonit or vitals, labs - adjust tx. prn Hyperlipidemia 59736112 E78.5 continue pravastati n 40 mg po qhsmonitor [id number] JORGE A SUN, CLAUDIA [address] [place] [address] 12/31/2023 12:12:16 01/03/2024 19:40:40 Closed fracture of right ankle [id number] 5991648 S82.891D Ortho consult 12/23Now in walking [facility] s been working with PT OT for strengthen ing, balance, mobility training, safety and function.G oal is home the end of the week with support of family and services.D enies pain - continue prn APAP.Trend VS, labs, CSM RLE for change.Ort ho follow up in about 4 wks, update with concernsCo ntinue fall precaution s.Monitor for safety. Acute hyperkalemia 56723 00 E87.5 Now resolved.K 6.6 on admit to [facility] corrected in hosp. with albuterol, insulin D5, lokelma, and calcium gluconate. Losartan was held and then restarted at lower dose (50 mg qd)Spirono lactone was d/c'd, lasix continued (40 mg qd)Repeat K stable here since admission Pneumonitis 050372315 J1 8.9 Resolved on first hosp with bipap, high flow oxygen, abx, diuresis, and steroids.F elt likely to be Sjogren's disease and CHFContinu e:02 0-4 liters prn - goal sats 88-92% due to COPD/CO2 retention. 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 12/10 - CXR results forwarded to office. Chest CT, sleep study to be sched. by office with OV follow up after testing.Ad ded prn albuterol updrafts q 4 prn as nsg did report some wheezing at times - continue. Congestive heart failure 69822185 I50.9 [place] partial cause of resp. failure as above.Cont inue:low salt diet - encourage diet compliance (family bringing fast food)lasix 40 mg qdLosartan 50 mg qdMonitor daily weights - creeping up but does not appear fluid overloaded at this time.BMP stableMoni tor LS, sats, labs, weights closely for decompensa tion.Off aldactone due to high K, but may need to use intermitte ntly.Had pulm. f/u 12/10 Type 2 matias betes mellitus 17366653 E11.9 Most recent A1C 7.9% and 8.1%BS 100s, occ. 200sContin ue current meds:janum et xr 50-1000 mg qdLantus 20 units q HSlispro 5 untis tid with meals in addition to SSI dosingcons tant carb diet - encourage diet compliance - poor eating habits so far while here - sweets, carbs, fast food brought in by [employer] s/s of hyper/hypo glycemia; adjust tx. prn Dementia 06943972 F03.90 11/09/23 [facility] assessment : 10/30invok ed at [facility], pt son is hcpNot on meds at this time.Juliana nue supportive caremonito r mood, behaviorsP sych eval prn Obstructiv e sleep apnea syndrome 79737014 G47.33 CPAP per home use - continue - encourage compliance , refuses use at times per staff.O2 via NC during the day - goal is to keep O2 sats +/- 90% to avoid CO2 retention. Had f/u with pulmonolog y 12/10 - to get repeat sleep study then follow up appt. Chronic ob structive pulmonary disease 20436387 J44.9 Continue O2 during day, attempt titration as able.Keep sats +/- 90% due to concern of CO2 retention. Continue to monitor VS, sats, LS, labs closelyFol low up with Pulmonary outpt. as sched.Adde d prn albuterol updrafts q 4 hrs prn as nsg. did report some wheezingTa pering off prednisone , currently 2.5 mg qd x 7d, then stop. Cirrhosis of liver 007 K74.60 Off aldactone due to high K 6.6 in hosp.On lasix now for diuresis 40 mg qdMonitor LFTsMonito r mentation, NH3 level WNR Gastroesop hageal reflux disease 641288718 K21.9 Currently on 2 meds per hosp. -famotidin e 20 mg po bidpantopr azole 40 mg po q am - reduced to 20 mg qd on ontinu e and monitor sx.Unclear as why she is on 2 - continue to titrate as outpt. Monitor sx. Hypertensive disorder 38 158277 I10 VSSMeds adjusted in hosp. due to high KAldactone stopped, remains on lasix 40 mg qd.Continu es on losartan 50mg dailymonit or vitals, labs - adjust tx. prn Hyperlipidemia 96798476 E78.5 continue pravastati n 40 mg po qhsmonitor [id number] JORGE A SUN NP [place] [address] [place] [address] 01/03/2024 08:25:07 01/04/2024 10:44:09 Closed fracture of right ankle [id number] 7889455 S82.891D To [facility] 11/13 after falling, dx. with R ankle fx.Initial ly NWB, limited progress with rehab.Had Ortho follow up 12/23, WB advanced to full with use of walking boot. Able to make gains with rehab, meeting goals for d/c home tomorrow with support of family and services.D enies pain - prn APAP available. Trend VS, labs, CSM RLE for change as outpt.Orth o follow up in about 4 wks, update with concernsCo ntinue fall precaution s.Monitor for safety. Acute hyperkalemia 10995 00 E87.5 Now resolved.K 6.6 on [facility] in hosp. with albuterol, insulin D5, lokelma, and calcium gluconate. Losartan was held and then restarted at lower dose (50 mg qd)Spirono lactone was d/c'd, lasix continued (40 mg qd)Repeat K stable here since admission, last level 3.8 on 12/31. Pneumonitis 574587092 J1 8.9 Resolved after first hosp with bipap, high flow oxygen, abx, diuresis, and steroids.F elt likely to be Sjogren's disease and CHFContinu e:02 0-2 liters prn - goal sats 88-92% due to COPD/CO2 retention. 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 Chest CT, sleep study to be sched. by office with OV follow up after testing.Ad ded prn albuterol MDI q 4 prn for wheezing. Congestive heart failure 87721129 I50.9 [place] partial cause of initial hospitaliz ation for resp. failure.Cu rrently with rapid weight gain over past few days (253-> 260 lbs) concerning for fluid retention although has also been diet non compliant while here with excellent appetite. Plan:Incre ase lasix to 40 mg bid x 3 days, then resume 40 mg qd.Add KCl 20 meq daily x 3 daysAdd fluid restrictio n 1800 ml/dReques ting VNA to continue to closely monitor for decompensa tion at home - update PCP with concerns. Continue:L ow salt diet - encourage diet compliance (family bringing inappropri ate foods while here). Requesting nsg. to review low salt diet, fluid restrictio n, and CHF informatio n with pt. and family at discharge and provide low salt diet and CHF educationa l handouts in [place] for use at home.Daily weights and record at homeLosart an 50 mg qd Monitor LS, sats, labs, weights closely for decompensa tion.Off aldactone due to high K, but may need to use intermitte ntly.Had pulm. f/u 12/10 Type 2 matias betes mellitus 50016861 E11.9 Most recent A1C 7.9% and 8.1%BS 100s, occ. 200sContin ue current meds:janum et xr 50-1000 mg qdLantus 20 units q HSlispro 5 untis tid with meals and HSWill stop lispro SSI - minimal use while here. Decent control despite diet compliance - poor eating habits while here - sweets, carbs, fast food brought in by [employer] garcia s/s of hyper/hypo glycemia; adjust tx. prn Dementia [id number] F03.90 11/09/23 [facility] assessment : 07/16invok ed at [facility], pt son is hcpNot on meds at this time.Juliana nue supportive caremonito r mood, behaviorsP sych eval prn Obstructiv e sleep apnea syndrome 59275991 G47.33 CPAP per home use - continue - encourage compliance , refuses use at times per staff.Had f/u with pulmonolog y 12/10 - to get repeat sleep study then follow up appt. Chronic ob structive pulmonary disease 07760405 J44.9 Continue O2, unable to titrate off while here, SS setting up O2 for home use.Goal sats +/- 90%Sats at rest and with activity on RA all less than 75-88%. Continue to monitor VS, sats, LS, labs closely as outpt.Foll ow up with Pulmonary outpt. as sched.Adde d prn albuterol MDI q 4 hrs prn SOB/wheezi ngTapered off prednisone . Cirrhosis of liver 007 K74.60 Off aldactone due to high K 6.6 in hosp.On lasix now for diuresis 40 mg qdMonitor LFTsMonito r mentation, NH3 level WNR Gastroesop hageal reflux disease 402302067 K21.9 Currently on 2 meds per hosp. d/c paperworkU nclear as why she is on 2Continue famotidine 20 mg po bidPantopr azole 40 mg po q am -> reduced to 20 mg qd on 12/24Monitor sx. and continue to titrate as outpt. Hypertensive disorder [id number] I10 VSSMeds adjusted in hosp. due to high KAldactone stopped, remains on lasix 40 mg qd.Continu es on losartan 50mg daily, coreg 12.5 mg bidmonitor vitals, labs - adjust tx. prn Hyperlipidemia [id number] E78.5 continue pravastati n 40 mg po qhs Health Concerns Section Related Observation LastModified by Organization Detai ls LastModified Time None Recorded Concern Status LastModified by Organization Details LastModified Time None Recorded Advance Directives Directive Y: Payers Insurance Date Sequence Insurance Name Policy Number Policy Elizondo Covered Member ID Elizondo Member ID Guarantor Name 02/08/2024 1 [facility] - DOS ON OR AFTER 2022 - MEDICARE ADVANTAGE [place] (MEDICARE REPLACEMENT/ADV ANTAGE - PPO) Magalie Live [id number] Magalie Live Notes Date Note Type Note Provider Name and Address Organization Details Recorded Time 12/20/2023 text/html Magalie is seen today for an acute visit. She is a 78 yo woman admitted to [facility] 11/15/23 from [facility] for continued care and rehab after a brief hosp. related to a fall and right ankle fracture.She was at [facility] for rehab when she fell in her room with resulting right ankle pain and swelling. Sent to [facility] 11/13 for eval and tx. Originally admitted to [facility] from [facility] on 11/08 after an acute hospitalization due to hypoxic and hypercarbic resp failure - dx. with pneumonitis, CHF, and Sjogren's syndrome.She presented to [facility] 11/01 because of abd pain and SOB x [address] showed Multifocal groundglass opacities, 1 cm right middle lobe nodule (unchanged from 08/13/2013) Increased size of a few mediastinal lymph nodes, likely reactive. Cardiomegaly and findings consistent with pulmonary hypertension. Multivessel coronary calcifications. Abd. CT showed Diverticulosis,/ cirrhosis, uterine fibroid, ? lower lung field interstitial edema.Labs were non-acute, aside from CO2 of 39 (baseline).Started on solumedrol and doxy, O2.BP low - hydralazine and isosorbide d/c'd and carvedilol decreased.Sugars labile, as high as 490, thought due to steroids. After admission to [facility] she began desatting again on restarted on O2.As mentioned above, she fell in her room with resulting right ankle pain so was sent to [facility] ED on . At [facility], Xray showed Oblique displaced lateral malleolus fracture. Medial ankle mortise widening. Placed in a posterior splint, to be NWB. To f/u with ortho in 5-7 days from d/c.Labs were notable for Na+132, K+ 6.6, glu-399.Hyperkalemia was txed with albuterol, insulin D5, lokelma, and calcium gluconate. Losartan was held and then restarted at lower dose. Spironolactone was d/c'd and lasix was continued at same dose. She was transferred here on . So far while here, Magalie has been doing ok.Working with therapy, slow progress due to non weight bearing status.Had follow up with Ortho - fiberglass cast placed, to follow up in 2 wks.Had follow up with Pulmonary 12/10 - No new recs other than checking a CXR and CT scan as well as getting a sleep study for eval for ASV, NIV, and follow up with Dr. Chawla. VSSBS mostly 100s, occ. 200s.Weight up a few lbs 249 lbs.Labs stable. CO2 remains elevated - 44 - nsg. trying to maintain O2 at lowest flow to keep sats +/- 90%Reported to refuse CPAP at night sometimes.CXR 11/28 = NAD.CXR 12/10 = NAD. MAR reviewed, prednisone now 5 mg qd. Upon exam, Magalie is up in her w/c, alert, looks good,in good spirits, NAD.Offers no complaints, breathing destini . No SOB, cough, CP, leg pain. Appetite good. No GI or complaints. Case discussed with nsg., no new concerns at present. Scotty. reduction of prednisone so far. Is eating a lot, family brings in food from home. PMH: HTN, AODM, COPD not on home O2, NICO on CPAP, CHF pEF, Sjogren's disease, GERD, cirrhosis of liver, s/p cholecystectomy, obesity hypoventilation syndrome with hypercarbia, and cognitive decline.Currently full code, HCP to address MOLSTHCP invoked prior at [facility]. JORGE A SUN NP [address] [facility], [address], [place], [address], [facility] [employer] 12/20/2023 11:05:17 12/25/2023 text/html Magalie is seen today for an acute visit. She is a 78 yo woman admitted to [facility] 11/15/23 from [facility] for continued care and rehab after a brief hosp. related to a fall and right ankle fracture.She presented to [facility] 11/13 after falling at a prior SNF ([facility]) resulting in right ankle pain and swelling. Xray showed Oblique displaced lateral malleolus fracture. Medial ankle mortise widening. Seen by Ortho, splint placed, made NWB. Stay complicated by: abnl. labs - Na+132, K+ 6.6, glu-399. Hyperkalemia was txed with albuterol, insulin D5, lokelma, and calcium gluconate. Losartan was held and then restarted at lower dose. Spironolactone was d/c'd and lasix was continued at same dose. (Of note, originally admitted to [facility] from [facility] on 11/08 after an acute hospitalization due to hypoxic and hypercarbic resp failure - dx. with pneumonitis, CHF, and Sjogren's syndrome. Tx'd with solumedrol and doxy, O2. Hydralazine and isosorbide d/c'd and carvedilol decreased due to low BP). So far while here, Magalie has been doing good.Working with therapy, slow progress due to non weight bearing status.Had Ortho follow up yesterday 12/23, now in walking boot and WB advanced to full. Hopefully will be able to make better progress. Follow up sched. in 6 wks.Had follow up with Pulmonary 12/10 - No new recs other than checking a CXR and CT scan as well as getting a sleep study for eval for ASV, NIV, and follow up with Dr. Chawla. VSSBS mostly 100s, occ. 200s.Weight up a few lbs 249 lbs.Labs stable. CO2 remains elevated - 44 - nsg. trying to maintain O2 at lowest flow to keep sats +/- 90%Reported to refuse CPAP at night sometimes.CXR 11/28 = NAD.CXR 12/10 = NAD. MAR reviewed, prednisone now 5 mg qd. Upon exam, Magalie is in bed, alert, looks very good, NAD.Offers no complaints, breathing destini . No SOB, cough, CP, leg pain. Appetite good. No GI or complaints. Case discussed with nsg., no new concerns at present. Scotty. reduction of prednisone so far. Is eating a lot, family brings in food from home. PMH: HTN, AODM, COPD not on home O2, NICO on CPAP, CHF pEF, Sjogren's disease, GERD, cirrhosis of liver, s/p cholecystectomy, obesity hypoventilation syndrome with hypercarbia, and cognitive decline.Currently full code, HCP to address MOLSTHCP invoked prior at [facility]. JORGE A SUN NP [address] [facility], [address], [place], [address], [facility] - [employer] 12/25/2023 10:43:23 12/27/2023 text/html Magalie is seen today for an acute visit. She is a 78 yo woman admitted to [facility] 11/15/23 from [facility] for continued care and rehab after a brief hosp. related to a fall and right ankle fracture.She presented to [facility] 11/13 after falling at a prior SNF ([facility]) resulting in right ankle pain and swelling. Xray showed Oblique displaced lateral malleolus fracture. Medial ankle mortise widening. Seen by Ortho, splint placed, made NWB. Stay complicated by: abnl. labs - Na+132, K+ 6.6, glu-399. Hyperkalemia was txed with albuterol, insulin D5, lokelma, and calcium gluconate. Losartan was held and then restarted at lower dose. Spironolactone was d/c'd and lasix was continued at same dose. (Of note, originally admitted to [facility] from [facility] on 11/08 after an acute hospitalization due to hypoxic and hypercarbic resp failure - dx. with pneumonitis, CHF, and Sjogren's syndrome. Tx'd with solumedrol and doxy, O2. Hydralazine and isosorbide d/c'd and carvedilol decreased due to low BP). So far while here, Magalie has been doing good.Working with therapy, slow progress due to non weight bearing status.Had Ortho follow up 12/23, now in walking boot and WB advanced to full. Hopefully will be able to make better progress. Follow up sched. in 6 wks.Had follow up with Pulmonary 12/10 - No new recs other than checking a CXR and CT scan as well as getting a sleep study for eval for ASV, NIV, and follow up with Dr. Chawla. VSSBS mostly 100s, occ. 200s.Weight up a few lbs - 253 lbs. now. Staff reports excellent intake and diet non compliance.Labs stable. CO2 remains elevated - 44 - nsg. trying to maintain O2 at lowest flow to keep sats +/- 90%Reported to refuse CPAP at night sometimes.CXR 11/28 = NAD.CXR 12/10 = NAD.Prednisone reduced 12/24 to 2.5 mg qd x 7 days, then stop. Scotty. reduction well so far. Upon exam, Magalie is in her w/c, alert, looks great, NAD. Alert, animated, smiling, denies any complaints today. Case discussed with nsg., no new concerns at present. PMH: HTN, AODM, COPD not on home O2, NICO on CPAP, CHF pEF, Sjogren's disease, GERD, cirrhosis of liver, s/p cholecystectomy, obesity hypoventilation syndrome with hypercarbia, and cognitive decline.Currently full code, HCP to address MOLSTHCP invoked prior at [facility]. JORGE A SUN NP [address] [facility], [address], [place], [address], [place] - [employer] 12/27/2023 12:37:12 12/31/2023 text/html Magalie is seen today for an acute visit. She is a 78 yo woman admitted to [facility] 11/15/23 from [facility] for continued care and rehab after a brief hosp. related to a fall and right ankle fracture.She presented to [facility] 11/13 after falling at a prior SNF ([facility]) resulting in right ankle pain and swelling. Xray showed Oblique displaced lateral malleolus fracture. Medial ankle mortise widening. Seen by Ortho, splint placed, made NWB. Stay complicated by: abnl. labs - Na+132, K+ 6.6, glu-399. Hyperkalemia was txed with albuterol, insulin D5, lokelma, and calcium gluconate. Losartan was held and then restarted at lower dose. Spironolactone was d/c'd and lasix was continued at same dose. (Of note, originally admitted to [facility] from [facility] on 11/08 after an acute hospitalization due to hypoxic and hypercarbic resp failure - dx. with pneumonitis, CHF, and Sjogren's syndrome. Tx'd with solumedrol and doxy, O2. Hydralazine and isosorbide d/c'd and carvedilol decreased due to low BP). So far while here, Magalie has done well. Initially she made slow progress with rehab due to NWB status.Had Ortho follow up 12/23, WB advanced to full, has made great progress and is now walking with a walking boot. Meeting rehab goals, planning for d/c the end of the week with support of family and services. Ortho follow up in place in about 4 wks. Had follow up with Pulmonary 12/10 - No new recs other than checking a CXR and CT scan as well as getting a sleep study for eval for ASV, NIV, and follow up with Dr. Chawla. Resp. status has improved during her stay here. Titrated off prednisone, remains on O2. VSSBS mostly 100s, occ. 200s.Weight stable the past week - 253 lbs. now. Staff reports excellent intake and diet non compliance.Labs stable. CO2 remains elevated - low 40s - nsg. trying to maintain O2 at lowest flow to keep sats +/- 90%Reported to refuse CPAP at night sometimes.CXR 11/28 = NAD.CXR 12/10 = NAD. Upon exam, Magalie is in her w/c, alert, looks great, NAD. Alert, animated, smiling, denies any complaints today. No RLE pain, walking boot in place. Case discussed with nsg., no new concerns at present. PMH: HTN, AODM, COPD not on home O2, NICO on CPAP, CHF pEF, Sjogren's disease, GERD, cirrhosis of liver, s/p cholecystectomy, obesity hypoventilation syndrome with hypercarbia, and cognitive decline.Currently full code, HCP to address MOLSTHCP invoked prior at [facility]. JORGE A SUN NP [address] [facility], [address], [place], [address], [facility] - [employer] 12/31/2023 14:31:03 01/03/2024 text/html Magalie is seen today for discharge.She is going home 01/03 with support of family and services. She is a 78 yo woman admitted to [facility] 11/15/23 from [facility] for continued care and rehab after a brief hosp. related to a fall and right ankle fracture.She presented to [facility] 11/13 after falling at a prior SNF ([facility]) resulting in right ankle pain and swelling. Xray showed Oblique displaced lateral malleolus fracture. Medial ankle mortise widening. Seen by Ortho, splint placed, made NWB. Stay complicated by: abnl. labs - Na+132, K+ 6.6, glu-399. Hyperkalemia was txed with albuterol, insulin D5, lokelma, and calcium gluconate. Losartan was held and then restarted at lower dose. Spironolactone was d/c'd and lasix was continued at same dose. (Of note, originally admitted [facility] from [facility] on 11/08 after an acute hospitalization due to hypoxic and hypercarbic resp failure - dx. with pneumonitis, CHF, and Sjogren's syndrome. Tx'd with solumedrol and doxy, O2. Hydralazine and isosorbide d/c'd and carvedilol decreased due to low BP). So far while here, Magalie has done well. Initially she made slow progress with rehab due to NWB status.Had Ortho follow up 12/23, WB advanced to full, has made great progress and is now walking with a walking boot. Meeting rehab goals, to return home today with the support of family and services. Ortho follow up in place in about 4 wks. Had follow up with Pulmonary 12/10 - No new recs other than checking a CXR and CT scan as well as getting a sleep study for eval for ASV, NIV, and follow up with Dr. Chawla. Resp. status has improved during her stay here. Titrated off prednisone, remains on O2. VSSBS mostly 100s, occ. 200s. Minimal use of SSI.Labs stable. CO2 remains elevated - low 40s - nsg. trying to maintain O2 at lowest flow to keep sats +/- 90%Reported to refuse CPAP at night sometimes.CXR 11/28 = NAD.CXR 12/10 = NAD. Weight with slow increase while here, weights initially 145-148 lbs, then creeped into the low 250s lbs. However, weight increased to 257 lbs on 12/31, and 260 lbs. on 01/01. Staff did not update provider of weight gain. Weight today 258.6 lbs without boot.Staff has consistently reported diet non compliance - family brings in large amounts of high calorie, high sodium food and well as large amounts of beverages. Upon exam, Magalie is in bed, alert, in good spirits, happy to be going home today. Denies any complaints, denies increased SOB, cough, CP. No GI complaints. No pain. Does agree to some leg swelling. 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 PMH: HTN, AODM, COPD not on home O2, NICO on CPAP, CHF pEF, Sjogren's disease, GERD, cirrhosis of liver, s/p cholecystectomy, obesity hypoventilation syndrome with hypercarbia, and cognitive decline.Currently full code, HCP to address MOLSTHCP invoked prior at [facility]. JORGE A SUN NP [address] [facility], [address], [place], [address], [facility] - [employer] 01/03/2024 10:08:52 OBGyn Episode No OBEpisode recorded.
--- OUTSIDE RECORDS SUMMARY | 2025-07-04 14:46 | XMS_ITS | Clinical Summary ---
Author Organization [facility] Address [address] [place] [address] Phone Care Team Providers Care Team Sports Sales Associate Name Role Phone Carmine Patel MD [...] every morning 04/04/2023 Active ergocalciferol 1.25 MG (69077 UT) capsule 50,000 Units 1 (one) time per week 06/26/2023 Active Active Problems Problem Noted Date Diagnosed Date Chronic kidney disease, stage 2 (mild) 4 Pain of hip region 02/26/2023 Overview (08/15/2023): Last Assessment & Plan: With [...] patient's age to complete this topic Insurance [facility] ([id number]) ZUHAIR ROBLERO [id number] [facility] ([id number]) ZUHAIR ROBLERO [id number] Care Teams Team Sports Sales Associate Relationship Specialty Start Date End Date Carmine Patel MD [address] [place], [place] [address] [id number] PCP - General Internal Medicine 05/02/21
[2025-07-04 15:48] LABS: IDNOW Serial# 55D5AD1C; Influenza B2 Negative (Negative)
[2025-07-04 15:57] VITALS: BP 130/43; PULSE 70; RESP 28; O2SAT 99
[2025-07-04 16:03] LABS: COVID-19 Test Negative (Negative); IDNOW Serial# 58CA691E
[2025-07-04 16:09] LABS: Glucose, Whole Blood 123 mg/dL (60-115)
[2025-07-04 16:44] LABS: VBG O2 % Saturation 99.0 %
[2025-07-04 16:46] LABS: Ammonia 36 umol/L (13-55)
[2025-07-04 16:47] LABS: Imm Gran Abs Auto 0.03 X10*3/uL (0.00-0.03); Imm Gran Pct Auto 0.3 % (0.0-0.4); MANUAL DIFF FLAG SCAN; Mean Corpuscular HGB Conc 30.0 g/dl (31.0-35.0); NRBC Abs Auto 0.000 X10*3/uL (0.0-0.012); NRBC Pct Auto 0.0 /100WBC (0.0-0.2); PLT CLUMP 1; SCAN SMEAR FLAG 1
[2025-07-04 16:48] LABS: Hematocrit 34.3 % (37.0-47.0); Hemoglobin 10.3 g/dl (12.0-16.0); Lymphocytes Absolute Auto 1.6 X10*3/uL (1.2-4.9); Mean Corpuscular Hemoglobin 29.7 pg (27.0-33.0); Mean Corpuscular Volume 98.8 fL (80.0-98.0); Red Blood Count 3.47 X10*6/uL (4.20-5.50)
[2025-07-04 16:49] LABS: Venous Blood Gas Refer to POC result
[2025-07-04 17:01] LABS: NT Pro B Type Natriuretic Pept 774.1 pg/mL (<300)
[2025-07-04 17:02] LABS: Troponin-I High Sensitivity 5.8 ng/L (<3.5-17.0)
[2025-07-04 17:09] LABS: Alanine Aminotransferase 10 U/L (0-31); Albumin Level 4.0 g/dL (3.5-5.0); Anion Gap 12 (12-20); Aspartate Amino Transferase 23 U/L (5-31); Blood Urea Nitrogen 7 mg/dL (9-16); Calcium 9.2 mg/dL (8.4-10.2); Carbon Dioxide 37 mmol/L (22-29); Chloride 96 mmol/L (96-108); Creatinine Clr Calc Pharmacy 93.8; Estimated Glomerular Filt Rate > 60; Magnesium 2.0 mg/dL (1.6-2.6); Potassium 4.9 mmol/L (3.3-5.1); Sodium 140 mmol/L (135-145); Total Protein 7.9 g/dL (6.5-8.0)
[2025-07-04 17:29] LABS: Alkaline Phosphatase 56 U/L (39-117)
[2025-07-04 17:34] VITALS: BP 158/75; PULSE 74; RESP 30; O2SAT 94
[2025-07-04 17:40] LABS: Platelet Count 116 X10*3/uL (160-400); White Blood Count 10.7 X10*3/uL (4.8-10.8)
[2025-07-04 17:47] VITALS: BP 156/84
[2025-07-04] MEDS: Furosemide 20 MG/2 ML VIAL IVPUSH (17:47)
[2025-07-04 18:03] VITALS: PULSE 75; RESP 24; O2SAT 97
[2025-07-04] MEDS: Albuterol Sulfate (0.083%) 2.5 MG/3 ML VIAL.NEB INHALE (18:05)
[2025-07-04 18:24] LABS: Salicylate < 5.0 mg/dL (15-30)
[2025-07-04] MEDS: iohexoL 350 MG/ML 100 ML INFUS..BTL 85 ML IV (18:48)
--- NOTE | 2025-07-04 19:25 | PC.NURSE ---
assumed care of pt, pt on purewick, respirations even and unlabored.
--- NOTE | 2025-07-04 21:21 | PC.NURSE ---
pt medicated per MAR.
--- NOTE | 2025-07-04 21:39 | PM.IMHP ---
History of Present Illness Date of Service: 07/04/25 Attending physician on admission: Pallavi Hermosillo Chief Complaint: Body aches Magalie Stein is a 80 years old woman with past medical history significant for COPD on home O2, NICO on CPAP, type 2 diabetes mellitus on insulin, and obesity hypoventilatory syndrome presents to the emergency department complaining of multiple symptoms including generalized body ache, constipation, stomach pain and headache. She also reports some pain to her right foot. She denied chest pain, cough, fever, chills, nausea, vomiting or diarrhea. She is a former tobacco smoker and denied illicit drug use. She has been taking nitrofurantoin for UTI. In the ED she was found to have stable vital signs. Blood workup so WBC 10.7, hemoglobin 10.3 and platelets 116. Venous blood gas is remarkable for pH 7.66, pCO2 35 and HC03 TNP. There are no other significant imbalances. Anion gap is 12, BUN 7 and creatinine 0.60. Glucose 130. There is no lactic acidosis. LFTs are normal. Pro BNP is over 700. Chest CTA showed right upper lobe pneumonia, bibasilar dependent subsegmental atelectasis and no main or segmental pulmonary embolism. ECG showed normal sinus rhythm, HR 70 beats per minute and no ischemic changes. ED tx: Doxycycline 100 mg IV, albuterol 2.5 mg neb, furosemide 20 mg IV, ceftriaxone 1 g IV, Tylenol 1 g IV Review of Systems Review of Systems: limited pt vague historian FOR[facility]LY [facility] Medical History Unspecified urinary incontinence NICO (obstructive sleep apnea) CHF (congestive heart failure) 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 indication of end stage renal disease in patient 6 to 64 years of age Lymphadenopathy Abdominal pain Bursitis of right hip Osteoarthritis of right hip Restrictive ventilatory defect Dyspnea on exertion Varicose veins of right lower extremity with inflammation Pneumonitis Pulmonary hypertension Hypertensive cardiovascular disease Acute hypoxic on chronic hypercapnic respiratory failure Acute on chronic respiratory failure with hypoxemia Obesity hypoventilation syndrome GERD (gastroesophageal reflux disease) Hypertension Diabetes mellitus COPD (chronic obstructive pulmonary disease) Family History Mother Diabetes Surgical History S/P laparoscopic cholecystectomy (07/14/21) Social History Household Members: Unknown / Unable to assess Household Members Other:: cousin Housing: Unknown / Unable to assess Do you presently have visiting nurse or other home services: No Alcohol intake: never Patient Tobacco Use Status: Former Tobacco user Tobacco use type: Cigarette Years Smoked: 20 Smoked in Last 30 Days: No Use of substances other than those prescribed or required for medical reasons: No Advance Directives: Yes Advance Directives on File: Yes Advance Directives Date on File: 02/22/22 Do you have a plan to hurt others: No Plan service: No Current occupational status: unemployed and disabled Meds Allergies Allergy/AdvReac Type Severity Reaction Status Date / Time No Known Allergies (No Known Allergy Verified 07/04/25 13:07 Allergies*) Active Medications: Current Medications Acetaminophen (Acetaminophen 325 Mg Tablet) 975 mg PO Q6H PRN PRN Reason: Pain, Mild 1-3,fever,headache Calcium Carbonate (Calcium Carbonate 750 Mg Tab.Chew) 750 mg PO Q4H PRN PRN Reason: Heartburn Doxycycline Hyclate 100 mg/ (Sodium Chloride) 250 mls @ 166.67 mls/hr IV ONCE ONE Stop: 07/04/25 22:21 Last Admin: 07/04/25 21:10 Dose: 166.67 mls/hr Melatonin (Melatonin 3 Mg Tablet) 6 mg PO BEDTIME PRN PRN Reason: Insomnia Sodium Chloride (0.9 % Sodium Chloride Flush 3 Ml Syringe) 3 ml IVFLUSH QSHIFT [facility] Home Medications ?Medication ?Instructions ?Recorded ?Confirmed ?Last Taken ?Type lancets 33 gauge (TRUEplus Lancets) #100 ea 09/20/21 02/26/25 02/19/22 History sitagliptin phos 50 mg-metformin 1 tab PO DAILY 02/20/22 02/26/25 11/11/24 History ER 1,000 mg tablet,extend rel 24h mp (Janumet XR) furosemide 40 mg tablet 40 mg PO DAILY 05/11/23 02/26/25 11/11/24 History albuterol sulfate 90 mcg/actuation 2 puff inhalation Q4H PRN Wheezing 11/02/23 02/26/25 11/11/24 History aerosol inhaler ergocalciferol (vitamin D2) 1,250 1,250 mcg PO MO 11/02/23 02/26/25 02/02/25 History mcg (50,000 unit) capsule famotidine 20 mg tablet 20 mg PO BID 11/02/23 02/26/25 11/11/24 History pravastatin 40 mg tablet 40 mg PO BEDTIME 11/02/23 02/26/25 11/11/24 History albuterol sulfate 2.5 mg/3 mL 2.5 mg inhalation Q6H PRN 05/04/24 02/26/25 Unknown History (0.083 %) solution for nebulization Shortness Of Breath Or Wheezing pantoprazole 20 mg tablet,delayed 20 mg PO DAILY@0630 05/04/24 02/26/25 11/11/24 History release insulin lispro 100 unit/mL 5 unit subcut BIDWM 08/06/24 02/26/25 11/11/24 History subcutaneous pen (Humalog KwikPen (U-100) Insulin) ondansetron 4 mg disintegrating 4 - 8 mg PO Q8H PRN Nausea And 01/26/25 02/26/25 Unknown History tablet Vomiting carvedilol 12.5 mg tablet 12.5 mg PO BIDWM 02/08/25 02/26/25 Unknown History ketotifen fumarate 0.025 % (0.035 1 drp ophthalmic (eye) Q12H PRN 02/08/25 02/26/25 Unknown History %) eye drops Allergy Symptoms azithromycin 250 mg tablet 250 mg PO DAILY 02/23/25 02/26/25 Unknown History cetirizine 10 mg tablet 10 mg PO DAILY PRN allergies 02/23/25 02/26/25 Unknown History nitrofurantoin macrocrystal 100 mg 100 mg PO BEDTIME 02/23/25 02/26/25 Unknown History capsule spironolactone 25 mg tablet 25 mg PO DAILY 02/23/25 02/26/25 Unknown History Physical Exam Vital Signs and Narrative: Vital Signs: Last Vital Signs Temp 98.7 F 07/04/25 13:04 Pulse 75 07/04/25 18:03 Resp 24 H 07/04/25 18:03 BP 156/84 H 07/04/25 17:47 Pulse Ox 94 07/04/25 17:34 O2 Del Method Nasal Cannula 07/04/25 17:34 O2 Flow Rate 2 07/04/25 17:34 Oxygen Flow Rate 2 07/04/25 13:04 BMI result Body Mass Index 45.6 General: Alert, oriented, in no acute distress. Cooperative. Afebrile. Obese. Nasal cannula in place. HEENT: Head normocephalic, atraumatic. PER, EOMI. Sclerae anicteric, conjunctiva clear. Oropharynx without erythema or exudate. Mucous membranes moist. Neck: Supple, no lymphadenopathy, or JVD. Heart: RRR, no murmurs, rubs or gallops. Lungs: Right lung: Right upper free crackles. Mild end expiratory wheezes without rhonchi bilaterally. Normal respiratory effort. Abdomen: Soft, non tenderness, nondistended, normoactive bowel sounds. No hepatosplenomegaly, masses or masses. Extremities: Bilateral lower extremity edema: Right> left. Tenderness to palpation. Musculoskeletal: Full range of motion. No joint swelling, deformity, or tenderness. Normal muscle tone and strength. Skin: Warm/Dry. No pallor. No jaundice. Neurologic: Alert & oriented x4. Moving all extremities spontaneously. Normal speech. Psychological: Normal mood and affect. Thought process coherent. Results Labs 07/04/25 16:24 07/04/25 16:24 Labs: Laboratory Results - last 24 hr 07/04/25 07/04/25 07/04/25 15:25 16:03 16:24 MCV 98.8 H MCH 29.7 MCHC 30.0 L RDW 11.9 Plt Count 116 L MPV 10.7 Immature Gran % (Auto) 0.3 Neut % (Auto) 79.1 H Lymph % (Auto) 14.9 L Page % (Auto) 4.5 Eos % (Auto) 1.0 Baso % (Auto) 0.2 Lymph # (Auto) 1.6 Page # (Auto) 0.5 Eos # (Auto) 0.1 Baso # (Auto) 0.0 Abs Immat Gran (auto) 0.03 Absolute Neuts (auto) 8.5 H Absolute Nucleated RBC 0.000 Nucleated RBC % (auto) 0.0 Smear Tech's Comments VERIFIED VBG pH VBG pCO2 VBG pO2 VBG HCO3 VBG O2 Saturation VBG Base Excess Anion Gap 12 Estim Creat Clear Calc 93.8 Estimated GFR > 60 POC Glucose 123 H Random Glucose 130 H Lactic Acid Calcium 9.2 Magnesium 2.0 Total Bilirubin 0.3 Direct Bilirubin 0.1 AST 23 ALT 10 Alkaline Phosphatase 56 Ammonia Troponin I High Sens 5.8 NT-Pro-B Natriuret Pep 774.1 H Total Protein 7.9 Albumin 4.0 Salicylates COVID-19 ([facility]) Negative COVID-19 Clin Com See Note Influenza Type A (MEG) Negative Influenza Type B (MEG) Negative Influenza A & B Note See Note 07/04/25 07/04/25 07/04/25 16:25 16:37 17:52 MCV MCH MCHC RDW Plt Count MPV Immature Gran % (Auto) Neut % (Auto) Lymph % (Auto) Page % (Auto) Eos % (Auto) Baso % (Auto) Lymph # (Auto) Page # (Auto) Eos # (Auto) Baso # (Auto) Abs Immat Gran (auto) Absolute Neuts (auto) Absolute Nucleated RBC Nucleated RBC % (auto) Smear Tech's Comments VBG pH 7.66 H* VBG pCO2 35 VBG pO2 145 VBG HCO3 TNP VBG O2 Saturation 99.0 VBG Base Excess 18.5 Anion Gap Estim Creat Clear Calc Estimated GFR POC Glucose Random Glucose Lactic Acid 0.7 Calcium Magnesium Total Bilirubin Direct Bilirubin AST ALT Alkaline Phosphatase Ammonia 36 Troponin I High Sens NT-Pro-B Natriuret Pep Total Protein Albumin Salicylates < 5.0 L COVID-19 ([facility]) COVID-19 Clin Com Influenza Type A (MEG) Influenza Type B (MEG) Influenza A & B Note Assessment and Plan (1) Right upper lobe pneumonia: Qualifiers: Pneumonia type: due to unspecified organism Qualified Code(s): J18.9 - Pneumonia, unspecified organism Status: Acute (2) Respiratory alkalosis: Status: Acute Plan Magalie Stein is a 80 y/o woman with a PMHx significant for chronic hypoxic and hypercapnic respiratory failure and obesity hypoventilatory syndrome who presents with: Right upper lobe pneumonia in the setting of acute COPD exacerbation; severe respiratory alkalosis. Pulse oximetry. Keep O2 sats > 89%. Supplemental oxygen. Continue empiric IV antibiotic therapy with ceftriaxone and doxycycline. Bronchodilator therapy as needed and IV steroids. NICO/obesity hypoventilatory syndrome. Nocturnal CPAP. HFpEF. Continue home diuretics. Recheck pro BNP. Type 2 diabetes mellitus. BG checks before meals at bedtime. Diabetic diet. Insulin sliding scale. Continue Lantus. Recent UTI. Hold nitrofurantoin as the patient has been receiving ceftriaxone. UA pending. Essential hypertension. Continue carvedilol and losartan. Hyperlipidemia. Continue statin. GERD. Continue PPI. Morbid obesity. BMI 45.6 kg/m2. Lifestyle changes. Encourage weight loss. Possible candidate for Ozempic. Code status: Full DVT prophylaxis: Heparin med rec pending Patient will need hospitalization for at least 2 midnights for right upper lobe pneumonia treatment in the setting of multiple underlying medical comorbidities treatment with IV antibiotics, IV steroids and supplemental oxygen; she will need content monitoring of vital signs. This documentation was generated using dictation software; minor spreading or research management associate errors may be present. Quality Stroke Does the patient have a stroke diagnosis?: No VTE Prior VTE?: No VTE Risk Level:: Medical - moderate - high VTE Device Contraindication: N/A - Device Ordered VTE Drug Contraindication: N/A - Med Ordered
--- NOTE | 2025-07-04 22:20 | PC.NURSE ---
insulin not given due to protocol, POC 105
[2025-07-04 22:22] LABS: Venous Blood Gas Refer to POC result
[2025-07-04 22:24] LABS: VBG HCO3 50 mmol/L (22-26); VBG O2 % Saturation 84.0 %
[2025-07-04 22:36] LABS: Troponin-I High Sensitivity 7.5 ng/L (<3.5-17.0)
[2025-07-05] VITALS (9 sets, daily range): BP systolic 109–170; BP diastolic 56–75; PULSE 64–90; RESP 18–22; TEMP 36.2–37.5; O2SAT 91–97; BMI 44.8
[2025-07-05 00:13] LABS: Glucose, Whole Blood 106 mg/dL (60-115)
[2025-07-05 01:24] LABS: Glucose, Whole Blood 96 mg/dL (60-115)
[2025-07-05 05:11] LABS: Appearance Urine Cloudy; Glucose Urine UA Negative (Negative); PH 7.5 (5.0-9.0); Specific Gravity - Urine 1.025 (1.005-1.025); UMIC TRIGGER UACC YES
[2025-07-05 05:38] LABS: UACC Culture Trigger YES
[2025-07-05 06:38] LABS: Venous Blood Gas Refer to POC result
[2025-07-05 06:39] LABS: Hematocrit 39.2 % (37.0-47.0); Hemoglobin 11.5 g/dl (12.0-16.0); Mean Corpuscular HGB Conc 29.3 g/dl (31.0-35.0); Mean Corpuscular Hemoglobin 29.4 pg (27.0-33.0); Mean Corpuscular Volume 100.3 fL (80.0-98.0); NRBC Abs Auto 0.000 X10*3/uL (0.0-0.012); NRBC Pct Auto 0.0 /100WBC (0.0-0.2); Platelet Count 146 X10*3/uL (160-400); Red Blood Count 3.91 X10*6/uL (4.20-5.50); White Blood Count 6.7 X10*3/uL (4.8-10.8)
[2025-07-05 06:41] LABS: VBG HCO3 49 mmol/L (22-26); VBG O2 % Saturation 86.0 %
[2025-07-05 07:06] LABS: NT Pro B Type Natriuretic Pept 789.1 pg/mL (<300)
[2025-07-05 07:17] LABS: Anion Gap 8 (12-20); Blood Urea Nitrogen 8 mg/dL (9-16); Calcium 9.6 mg/dL (8.4-10.2); Carbon Dioxide 45 mmol/L (22-29); Chloride 93 mmol/L (96-108); Creatinine Clr Calc Pharmacy 103.1; Estimated Glomerular Filt Rate > 60; Magnesium 1.8 mg/dL (1.6-2.6); Potassium 4.3 mmol/L (3.3-5.1); Sodium 142 mmol/L (135-145)
[2025-07-05 07:41] LABS: Glucose, Whole Blood 114 mg/dL (60-115)
[2025-07-05] MEDS: 0.9 % Sodium Chloride Flush 3 ML SYRINGE IVFLUSH ×3 (08:08→19:45)
--- NOTE | 2025-07-05 08:14 | P.PNIM_ITS ---
Subjective Subjective Date of Service: 07/05/25 Interval History: Pneumonia /hypercarbic respiratory failure Review of Systems sob seems similar -speaking sentences ,but looks tired. not much cough When removed oxygen she goes into 80s saturation alfonso Review of Systems: Yes all other systems are reviewed and are negative Physical Exam 2 Exam: Exam: Appearance: Alert.? Oriented, says always do not remember the month and the year but she always looks from his her phone Somewhat short of breath while talking. cvs: [id number], [id number] res: Air entry diminished, at bases has faint wheezing expiratory abd: no rebound or guarding ,nt, bs present. ext pulses present , no cyanosis . neuro: axo3 , nonfocal. Vital Signs: Vital Signs: Last Vital Signs Temp 97.2 F 07/05/25 07:51 Pulse 71 07/05/25 07:51 Resp 20 07/05/25 07:51 BP 166/75 H 07/05/25 07:51 Pulse Ox 97 07/05/25 07:51 O2 Del Method Nasal Cannula 07/05/25 07:51 O2 Flow Rate 2 07/05/25 07:51 Oxygen Flow Rate 2 07/04/25 13:04 BMI result Body Mass Index 44.8 Objective Data Active Medications Acetaminophen (Acetaminophen 325 Mg Tablet) 975 mg PO Q6H PRN PRN Reason: Pain, Mild 1-3,fever,headache Last Admin: 07/05/25 02:00 Dose: 975 mg Documented By: NURYS Acetazolamide (Acetazolamide 250 Mg Tablet) 250 mg PO DAILY [facility] Albuterol Sulfate (Albuterol Sulfate (0.083%) 2.5 Mg/3 Ml Vial.Neb) 2.5 mg INHALE Q2H PRN PRN Reason: Shortness of Breath/Wheezing Calcium Carbonate (Calcium Carbonate 750 Mg Tab.Chew) 750 mg PO Q4H PRN PRN Reason: Heartburn Ceftriaxone Sodium (Ceftriaxone Sodium 1 Gm Vial) 1 gm IVPUSH Q24H [facility] Dextrose (Dextrose 50 % 25 Gm/50 Ml Syringe) 25 gm IVPUSH Q15M PRN; Protocol PRN Reason: per Hypoglycemia Standing Ord. Glucose (Glucose Gel 15 Gm Gel..Gram.) 15 gm PO Q15M PRN; Protocol PRN Reason: per Hypoglycemia Standing Ord. Heparin Sodium (Porcine) (Heparin Sodium,Porcine 5,000 Unit/Ml Vial) 5,000 unit SUBCUT Q12H [facility] Doxycycline Hyclate 100 mg/ (Sodium Chloride) 250 mls @ 166.67 mls/hr IV Q12H [facility] Insulin Human Lispro (Insulin Lispro 100 Unit/Ml 3 Ml Vial) 0 unit SUBCUT QIDACHS [facility]; Protocol Last Admin: 07/05/25 08:01 Dose: Not Given Documented By: JESSICA Non-Admin Reason: No Insulin Coverage Magnesium Hydroxide (Milk Of Magnesia 30 Ml Oral.Susp) 30 ml PO DAILY PRN PRN Reason: Constipation Melatonin (Melatonin 3 Mg Tablet) 6 mg PO BEDTIME PRN PRN Reason: Insomnia Methylprednisolone Sodium Succinate (Methylprednisolone Sod Succ 40 Mg/Ml Vial) 40 mg IVPUSH Q24H [facility] Last Admin: 07/05/25 05:19 Dose: 40 mg Documented By: NURYS Sodium Chloride (0.9 % Sodium Chloride Flush 3 Ml Syringe) 3 ml IVFLUSH QSHIFT [facility] Last Admin: 07/05/25 00:29 Dose: Not Given Documented By: RISHABH Non-Admin Reason: IV Running Labs 07/05/25 06:28 07/05/25 06:28 Labs: Laboratory Results - last 24 hr 07/04/25 07/04/25 07/04/25 15:25 16:03 16:24 MCV 98.8 H MCH 29.7 MCHC 30.0 L RDW 11.9 Plt Count 116 L MPV 10.7 Immature Gran % (Auto) 0.3 Neut % (Auto) 79.1 H Lymph % (Auto) 14.9 L [place] % (Auto) 4.5 Eos % (Auto) 1.0 Baso % (Auto) 0.2 Lymph # (Auto) 1.6 [place] # (Auto) 0.5 Eos # (Auto) 0.1 Baso # (Auto) 0.0 Abs Immat Gran (auto) 0.03 Absolute Neuts (auto) 8.5 H Absolute Nucleated RBC 0.000 Nucleated RBC % (auto) 0.0 Smear Tech's Comments VERIFIED VBG pH VBG pCO2 VBG pO2 VBG HCO3 VBG O2 Saturation VBG Base Excess Anion Gap 12 Estim Creat Clear Calc 93.8 Estimated GFR > 60 POC Glucose 123 H Random Glucose 130 H Lactic Acid Calcium 9.2 Magnesium 2.0 Total Bilirubin 0.3 Direct Bilirubin 0.1 AST 23 ALT 10 Alkaline Phosphatase 56 Ammonia Troponin I High Sens 5.8 NT-Pro-B Natriuret Pep 774.1 H Total Protein 7.9 Albumin 4.0 Urine Color Urine Appearance Urine pH Ur Specific [place] Urine Protein Urine Glucose (UA) Urine Ketones Urine Blood Urine Nitrite Ur Leukocyte Esterase Urine RBC Urine WBC Ur Squamous Epith Cells Urine Bacteria Hyaline Casts Salicylates COVID-19 ([facility]) Negative COVID-19 Clin Com See Note Influenza Type A (MEG) Negative Influenza Type B (MEG) Negative Influenza A & B Note See Note 07/04/25 07/04/25 07/04/25 16:25 16:37 17:52 MCV MCH MCHC RDW Plt Count MPV Immature Gran % (Auto) Neut % (Auto) Lymph % (Auto) [place] % (Auto) Eos % (Auto) Baso % (Auto) Lymph # (Auto) [place] # (Auto) Eos # (Auto) Baso # (Auto) Abs Immat Gran (auto) Absolute Neuts (auto) Absolute Nucleated RBC Nucleated RBC % (auto) Smear Tech's Comments VBG pH 7.66 H* VBG pCO2 35 VBG pO2 145 VBG HCO3 TNP VBG O2 Saturation 99.0 VBG Base Excess 18.5 Anion Gap Estim Creat Clear Calc Estimated GFR POC Glucose Random Glucose Lactic Acid 0.7 Calcium Magnesium Total Bilirubin Direct Bilirubin AST ALT Alkaline Phosphatase Ammonia 36 Troponin I High Sens NT-Pro-B Natriuret Pep Total Protein Albumin Urine Color Urine Appearance Urine pH Ur Specific [place] Urine Protein Urine Glucose (UA) Urine Ketones Urine Blood Urine Nitrite Ur Leukocyte Esterase Urine RBC Urine WBC Ur Squamous Epith Cells Urine Bacteria Hyaline Casts Salicylates < 5.0 L COVID-19 ([facility]) COVID-19 Clin Com Influenza Type A (MEG) Influenza Type B (MEG) Influenza A & B Note 07/04/25 07/04/25 07/04/25 22:10 22:14 22:17 MCV MCH MCHC RDW Plt Count MPV Immature Gran % (Auto) Neut % (Auto) Lymph % (Auto) [place] % (Auto) Eos % (Auto) Baso % (Auto) Lymph # (Auto) [place] # (Auto) Eos # (Auto) Baso # (Auto) Abs Immat Gran (auto) Absolute Neuts (auto) Absolute Nucleated RBC Nucleated RBC % (auto) Smear Tech's Comments VBG pH 7.46 H VBG pCO2 71 VBG pO2 59 VBG HCO3 50 H VBG O2 Saturation 84.0 VBG Base Excess 22.8 Anion Gap Estim Creat Clear Calc Estimated GFR POC Glucose 106 Random Glucose Lactic Acid Calcium Magnesium Total Bilirubin Direct Bilirubin AST ALT Alkaline Phosphatase Ammonia Troponin I High Sens 7.5 NT-Pro-B Natriuret Pep Total Protein Albumin Urine Color Urine Appearance Urine pH Ur Specific [place] Urine Protein Urine Glucose (UA) Urine Ketones Urine Blood Urine Nitrite Ur Leukocyte Esterase Urine RBC Urine WBC Ur Squamous Epith Cells Urine Bacteria Hyaline Casts Salicylates COVID-19 ([facility]) COVID-19 Clin Com Influenza Type A (MEG) Influenza Type B (MEG) Influenza A & B Note 07/05/25 07/05/25 07/05/25 01:20 04:59 06:28 MCV 100.3 H MCH 29.4 MCHC 29.3 L RDW 11.8 Plt Count 146 L D MPV 10.5 Immature Gran % (Auto) Neut % (Auto) Lymph % (Auto) [place] % (Auto) Eos % (Auto) Baso % (Auto) Lymph # (Auto) [place] # (Auto) Eos # (Auto) Baso # (Auto) Abs Immat Gran (auto) Absolute Neuts (auto) Absolute Nucleated RBC 0.000 Nucleated RBC % (auto) 0.0 Smear Tech's Comments VBG pH VBG pCO2 VBG pO2 VBG HCO3 VBG O2 Saturation VBG Base Excess Anion Gap 8 L Estim Creat Clear Calc 103.1 Estimated GFR > 60 POC Glucose 96 Random Glucose 126 H Lactic Acid Calcium 9.6 Magnesium 1.8 Total Bilirubin Direct Bilirubin AST ALT Alkaline Phosphatase Ammonia Troponin I High Sens NT-Pro-B Natriuret Pep 789.1 H Total Protein Albumin Urine Color Yellow Urine Appearance Cloudy Urine pH 7.5 Ur Specific [place] 1.025 Urine Protein 30 (1+) H Urine Glucose (UA) Negative Urine Ketones Negative Urine Blood Trace H Urine Nitrite Negative Ur Leukocyte Esterase Large (3+) H Urine RBC 0-2 Urine WBC >50 H Ur Squamous Epith Cells 0-2 Urine Bacteria Trace Hyaline Casts 0-2 Salicylates COVID-19 ([facility]) COVID-19 Clin Com Influenza Type A (MEG) Influenza Type B (MEG) Influenza A & B Note 07/05/25 07/05/25 06:37 07:32 MCV MCH MCHC RDW Plt Count MPV Immature Gran % (Auto) Neut % (Auto) Lymph % (Auto) [place] % (Auto) Eos % (Auto) Baso % (Auto) Lymph # (Auto) [place] # (Auto) Eos # (Auto) Baso # (Auto) Abs Immat Gran (auto) Absolute Neuts (auto) Absolute Nucleated RBC Nucleated RBC % (auto) Smear Tech's Comments VBG pH 7.25 L VBG pCO2 111 VBG pO2 62 VBG HCO3 49 H VBG O2 Saturation 86.0 VBG Base Excess 16.6 Anion Gap Estim Creat Clear Calc Estimated GFR POC Glucose 114 Random Glucose Lactic Acid Calcium Magnesium Total Bilirubin Direct Bilirubin AST ALT Alkaline Phosphatase Ammonia Troponin I High Sens NT-Pro-B Natriuret Pep Total Protein Albumin Urine Color Urine Appearance Urine pH Ur Specific [place] Urine Protein Urine Glucose (UA) Urine Ketones Urine Blood Urine Nitrite Ur Leukocyte Esterase Urine RBC Urine WBC Ur Squamous Epith Cells Urine Bacteria Hyaline Casts Salicylates COVID-19 ([facility]) COVID-19 Clin Com Influenza Type A (MEG) Influenza Type B (MEG) Influenza A & B Note Assessment and Plan (1) Pneumonia: Status: Acute Assessment and Plan: 80 y/o woman with a PMHx significant for chronic hypoxic and hypercapnic respiratory failure and obesity hypoventilatory syndrome who presents with: Acute hypercapnic respiratory failure secondary to not utilizing BiPAP Right upper lobe pneumonia in the setting of acute COPD exacerbation; severe respiratory alkalosis. Pulse oximetry. Keep O2 sats > 89%. Supplemental oxygen. Continue empiric IV antibiotic therapy with ceftriaxone and doxycycline. Bronchodilator therapy as needed and IV steroids. Discussed with the upon-PH and VBG 7.28 when corrected (7.31), ABG could not obtain due to difficult stick. Pulmonary eval noted-Start on acetazolamide 500 b.i.d. 1st dose now, continue BiPAP 25/20 FiO2 24% at night and as needed for naps. O2 saturation goal should be no higher than 92%. NICO/obesity hypoventilatory syndrome. Nocturnal CPAP. HFpEF. Continue home diuretics. Recheck pro BNP. Type 2 diabetes mellitus. BG checks before meals at bedtime. Diabetic diet. Insulin sliding scale. Continue Lantus. Recent UTI. Hold nitrofurantoin as the patient has been receiving ceftriaxone. UA pending. Essential hypertension. Continue carvedilol and losartan. Hyperlipidemia. Continue statin. GERD. Continue PPI. Morbid obesity. BMI 45.6 kg/m2. Lifestyle changes. Encourage weight loss. Possible candidate for Ozempic. Ongoing need of stay: Acute hypercarbic respiratory failure- need oxygen, IV steroids, BiPAP, monitor pulse oximetry closely advised as respiratory status patient should be on BiPAP -now should be BiPAP with naps as well as sleeping. Staff is aware as well as Respiratory. Quality Stroke Does the patient have a stroke diagnosis?: No VTE Prior VTE?: No VTE Risk Level:: Medical - moderate - high VTE Device Contraindication: N/A - Device Ordered VTE Drug Contraindication: N/A - Med Ordered
[2025-07-05 11:00] LABS: Venous Blood Gas Refer to POC result
[2025-07-05 11:00] LABS: VBG HCO3 47 mmol/L (22-26); VBG O2 % Saturation 71.0 %
[2025-07-05 11:22] LABS: Glucose, Whole Blood 212 mg/dL (60-115)
--- NOTE | 2025-07-05 11:29 | PM.CNPUL ---
History of Present Illness History of Present Illness Consult date: 07/05/25 Chief complaint: Malaise Narrative: 80-year-old lady with underlying obesity, hypotension, diabetes, NICO/ohs on BiPAP , COPD, pulmonary hypertension, and diastolic heart failure admitted on 07/04/2025 with malaise like symptoms in treated empirically for congestive heart failure. Patient was not put on her usual nocturnal BiPAP at night and was noted to have acute respiratory acidosis in the morning, thus pulmonary evaluation was requested. On exam patient is awake and a and appears to be at her baseline respiratory status. Results of CT chest reviewed. Review of Systems Constitutional: Constitutional: Denies daytime sleepiness, Denies excessive sweating, Reports fatigue, Denies fever(s), Denies lethargy, Reports malaise, Denies night sweats, Denies snoring and Denies weight loss Eyes: Eyes: Denies blurry vision and Denies itchy eyes ENT: Denies nasal congestion, Denies post nasal drip, Denies sinus pain, Denies sinus pressure and Denies other ( Thrush) Cardiovascular: Cardiovascular: Denies chest pain, Denies pedal edema, Denies dyspnea, Denies orthopnea and Denies paroxysmal nocturnal dyspnea Respiratory: Respiratory: Denies cough, Denies hemoptysis, Denies excessive phlegm production, Denies dyspnea, Denies snoring and Denies wheezing Gastrointestinal: Gastrointestinal: Denies abdominal pain and Denies heartburn Musculoskeletal: Musculoskeletal: Denies myalgias, Denies arthralgias and Denies joint swelling Integumentary/Breasts: Skin/Breast: Denies rash Neurologic: Denies memory loss and Denies seizure-like activity Psychiatric: Psychiatric: Denies abnormal sleep pattern, Denies anxiety and Denies memory loss Endocrine: Endocrine: Denies excessive sweating, Reports fatigue and Denies heat intolerance Hematologic/Lymphatic: Hematologic/Lymphatic: Denies easy bruising Allergic/Immunologic: Allergic/Immunologic: Denies itchy eyes, Denies seasonal rhinorrhea and Denies wheezing PMFSH Past Medical History Medical History Unspecified urinary incontinence NICO (obstructive sleep apnea) CHF (congestive heart failure) 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 indication of end stage renal disease in patient 6 to 64 years of age Lymphadenopathy Abdominal pain Bursitis of right hip Osteoarthritis of right hip Restrictive ventilatory defect Dyspnea on exertion Varicose veins of right lower extremity with inflammation Pneumonitis Pulmonary hypertension Hypertensive cardiovascular disease Acute hypoxic on chronic hypercapnic respiratory failure Acute on chronic respiratory failure with hypoxemia Obesity hypoventilation syndrome GERD (gastroesophageal reflux disease) Hypertension Diabetes mellitus COPD (chronic obstructive pulmonary disease) Family History Family History Mother Diabetes Surgical History Surgical History S/P laparoscopic cholecystectomy (07/14/21) Social History Social History Household Members: Other Household Members Other:: Cousin Housing: Unknown / Unable to assess Do you presently have visiting nurse or other home services: Yes Alcohol intake: never Patient Tobacco Use Status: Former Tobacco user Tobacco use type: Cigarette Years Smoked: 20 Advance Directives Date on File: 02/22/22 service: No Current occupational status: unemployed and disabled Meds Allergies Allergy/AdvReac Type Severity Reaction Status Date / Time No Known Allergies (No Known Allergy Verified 07/04/25 13:07 Allergies*) Active Medications: Current Medications Acetaminophen (Acetaminophen 325 Mg Tablet) 975 mg PO Q6H PRN PRN Reason: Pain, Mild 1-3,fever,headache Last Admin: 07/05/25 08:30 Dose: 975 mg Albuterol Sulfate (Albuterol Sulfate (0.083%) 2.5 Mg/3 Ml Vial.Neb) 2.5 mg INHALE Q2H PRN PRN Reason: Shortness of Breath/Wheezing Calcium Carbonate (Calcium Carbonate 750 Mg Tab.Chew) 750 mg PO Q4H PRN PRN Reason: Heartburn Ceftriaxone Sodium (Ceftriaxone Sodium 1 Gm Vial) 1 gm IVPUSH Q24H [facility] Dextrose (Dextrose 50 % 25 Gm/50 Ml Syringe) 25 gm IVPUSH Q15M PRN; Protocol PRN Reason: per Hypoglycemia Standing Ord. Glucose (Glucose Gel 15 Gm Gel..Gram.) 15 gm PO Q15M PRN; Protocol PRN Reason: per Hypoglycemia Standing Ord. Heparin Sodium (Porcine) (Heparin Sodium,Porcine 5,000 Unit/Ml Vial) 5,000 unit SUBCUT Q12H [facility] Last Admin: 07/05/25 08:07 Dose: 5,000 unit Doxycycline Hyclate 100 mg/ (Sodium Chloride) 250 mls @ 166.67 mls/hr IV Q12H [facility] Last Infusion: 07/05/25 08:17 Dose: 0 mls/hr Insulin Human Lispro (Insulin Lispro 100 Unit/Ml 3 Ml Vial) 0 unit SUBCUT QIDACHS [facility]; Protocol Last Admin: 07/05/25 08:01 Dose: Not Given Magnesium Hydroxide (Milk Of Magnesia 30 Ml Oral.Susp) 30 ml PO DAILY PRN PRN Reason: Constipation Melatonin (Melatonin 3 Mg Tablet) 6 mg PO BEDTIME PRN PRN Reason: Insomnia Methylprednisolone Sodium Succinate (Methylprednisolone Sod Succ 40 Mg/Ml Vial) 40 mg IVPUSH Q24H [facility] Last Admin: 07/05/25 05:19 Dose: 40 mg Sodium Chloride (0.9 % Sodium Chloride Flush 3 Ml Syringe) 3 ml IVFLUSH QSHIFT [facility] Last Admin: 07/05/25 08:08 Dose: 3 ml Home Medications ?Medication ?Instructions ?Recorded ?Confirmed ?Last Taken ?Type lancets 33 gauge (TRUEplus Lancets) #100 ea 09/20/21 02/26/25 02/19/22 History sitagliptin phos 50 mg-metformin 1 tab PO DAILY 02/20/22 02/26/25 11/11/24 History ER 1,000 mg tablet,extend rel 24h mp (Janumet XR) furosemide 40 mg tablet 40 mg PO DAILY 05/11/23 02/26/25 11/11/24 History albuterol sulfate 90 mcg/actuation 2 puff inhalation Q4H PRN Wheezing 11/02/23 02/26/25 11/11/24 History aerosol inhaler ergocalciferol (vitamin D2) 1,250 1,250 mcg PO MO 11/02/23 02/26/25 02/02/25 History mcg (50,000 unit) capsule famotidine 20 mg tablet 20 mg PO BID 11/02/23 02/26/25 11/11/24 History pravastatin 40 mg tablet 40 mg PO BEDTIME 11/02/23 02/26/25 11/11/24 History albuterol sulfate 2.5 mg/3 mL 2.5 mg inhalation Q6H PRN 05/04/24 02/26/25 Unknown History (0.083 %) solution for nebulization Shortness Of Breath Or Wheezing pantoprazole 20 mg tablet,delayed 20 mg PO DAILY@0630 05/04/24 02/26/25 11/11/24 History release insulin lispro 100 unit/mL 5 unit subcut BIDWM 08/06/24 02/26/25 11/11/24 History subcutaneous pen (Humalog KwikPen (U-100) Insulin) ondansetron 4 mg disintegrating 4 - 8 mg PO Q8H PRN Nausea And 01/26/25 02/26/25 Unknown History tablet Vomiting carvedilol 12.5 mg tablet 12.5 mg PO BIDWM 02/08/25 02/26/25 Unknown History ketotifen fumarate 0.025 % (0.035 1 drp ophthalmic (eye) Q12H PRN 02/08/25 02/26/25 Unknown History %) eye drops Allergy Symptoms azithromycin 250 mg tablet 250 mg PO DAILY 02/23/25 02/26/25 Unknown History cetirizine 10 mg tablet 10 mg PO DAILY PRN allergies 02/23/25 02/26/25 Unknown History nitrofurantoin macrocrystal 100 mg 100 mg PO BEDTIME 02/23/25 02/26/25 Unknown History capsule spironolactone 25 mg tablet 25 mg PO DAILY 02/23/25 02/26/25 Unknown History Physical Exam Vital Signs: Vital Signs: Last Vital Signs Temp 97.2 F 07/05/25 07:51 Pulse 71 07/05/25 07:51 Resp 20 07/05/25 07:51 BP 166/75 H 07/05/25 07:51 Pulse Ox 97 07/05/25 07:51 O2 Del Method Nasal Cannula 07/05/25 07:51 O2 Flow Rate 2 07/05/25 07:51 Oxygen Flow Rate 2 07/04/25 13:04 BMI result Body Mass Index 44.8 Const: General: no acute distress and alert Nutritional Appearance: obese Orientation/consciousness: Other orientation findings ( oriented) HEENT: Head: Yes atraumatic Eyes: General: appearance normal, both eyes and all related structures Sclerae: sclerae normal EOM: EOMs intact bilaterally Neck: Neck: Yes supple Lymphatic: no lymphadenopathy noted Resp: Effort & Inspection: normal respiratory effort and no use of accessory muscles Auscultation: clear to auscultation bilaterally Cardio: Rate: regular rate Rhythm: regular rhythm Heart sounds: no gallops, no murmurs and no rubs GI: Palpation (GI): Soft to palpation and Other GI palpation findings present ( Nontender) Auscultation: normal bowel sounds Skin: General skin exam: other ( warm) Extrem: General: No clubbing, No cyanosis and Yes edema (1+ bilateral) Results Laboratory Findings 07/05/25 06:28 07/05/25 06:28 Abnormal lab findings: Abnormal Labs 07/04/25 07/04/25 07/04/25 16:03 16:24 16:37 RBC 3.47 L Hgb 10.3 L Hct 34.3 L MCV 98.8 H MCHC 30.0 L Plt Count 116 L Neut % (Auto) 79.1 H Lymph % (Auto) 14.9 L Absolute Neuts (auto) 8.5 H VBG pH 7.66 H* VBG HCO3 Chloride Carbon Dioxide 37 H Anion Gap BUN 7 L POC Glucose 123 H Random Glucose 130 H NT-Pro-B Natriuret Pep 774.1 H Urine Protein Urine Blood Ur Leukocyte Esterase Urine WBC Salicylates 07/04/25 07/04/25 07/05/25 17:52 22:14 04:59 RBC Hgb Hct MCV MCHC Plt Count Neut % (Auto) Lymph % (Auto) Absolute Neuts (auto) VBG pH 7.46 H VBG HCO3 50 H Chloride Carbon Dioxide Anion Gap BUN POC Glucose Random Glucose NT-Pro-B Natriuret Pep Urine Protein 30 (1+) H Urine Blood Trace H Ur Leukocyte Esterase Large (3+) H Urine WBC >50 H Salicylates < 5.0 L 07/05/25 07/05/25 07/05/25 06:28 06:37 10:31 RBC 3.91 L Hgb 11.5 L Hct MCV 100.3 H MCHC 29.3 L Plt Count 146 L D Neut % (Auto) Lymph % (Auto) Absolute Neuts (auto) VBG pH 7.25 L 7.28 L VBG HCO3 49 H 47 H Chloride 93 L Carbon Dioxide 45 H* D Anion Gap 8 L BUN 8 L POC Glucose Random Glucose 126 H NT-Pro-B Natriuret Pep 789.1 H Urine Protein Urine Blood Ur Leukocyte Esterase Urine WBC Salicylates 07/05/25 11:12 RBC Hgb Hct MCV MCHC Plt Count Neut % (Auto) Lymph % (Auto) Absolute Neuts (auto) VBG pH VBG HCO3 Chloride Carbon Dioxide Anion Gap BUN POC Glucose 212 H Random Glucose NT-Pro-B Natriuret Pep Urine Protein Urine Blood Ur Leukocyte Esterase Urine WBC Salicylates Assessment and Plan (1) Class 3 obesity with alveolar hypoventilation and body mass index (BMI) of 40.0 to 44.9 in adult: Status: Acute (2) Obesity hypoventilation syndrome: Status: Acute (3) Supplemental oxygen dependent: Status: Acute (4) Acute hypoxic on chronic hypercapnic respiratory failure: Status: Acute Plan Impression: 80-year-old lady with underlying NICO/ohs, COPD, pulmonary hypertension, and diastolic dysfunction admitted with malaise with hospital course further complicated by acute hypercapnia secondary to uterine generic hypoxia and not utilization of patient's usual BiPAP. Recommendation: Start on acetazolamide 500 b.i.d. 1st dose now, continue BiPAP 25/20 FiO2 24% at night and as needed for naps. O2 saturation goal should be no higher than 92%. Procedures Date of Service Date of Service: 07/05/25
[2025-07-05] MEDS: Albuterol/Iprat 2.5/0.5MG 3 ML AMPUL.NEB INHALE (11:30)
--- NOTE | 2025-07-05 13:14 | PHA.MEDREC ---
Pharmacy Consult ? Medication Reconciliation Pharmacy has completed the medication reconciliation.med rec complete, spoke to patient and patient's cousin via sedimentationist. They both did not know names of medications but said they get med box and take all the pills that are filled in this. I used pharmacy claims history to update
[2025-07-05] MEDS: Magnesium Sulfate/H2O 2 GM/50 ML PIGGYBACK IV (15:06)
[2025-07-05 16:18] LABS: Glucose, Whole Blood 230 mg/dL (60-115)
[2025-07-05 21:27] LABS: Glucose, Whole Blood 205 mg/dL (60-115)
[2025-07-06] VITALS (10 sets, daily range): BP systolic 115–165; BP diastolic 61–71; PULSE 71–99; RESP 18–22; TEMP 36.4–37.6; O2SAT 92–99
[2025-07-06 07:25] LABS: Glucose, Whole Blood 148 mg/dL (60-115)
[2025-07-06] MEDS: 0.9 % Sodium Chloride Flush 3 ML SYRINGE IVFLUSH ×3 (09:15→20:45)
[2025-07-06] MEDS: Lidocaine 4 % Patch ADH..PATCH 2 PATCH TRANSDERMA (09:45)
[2025-07-06 09:52] LABS: VBG HCO3 31 mmol/L (22-26); VBG O2 % Saturation 91.0 %
[2025-07-06 09:53] LABS: Venous Blood Gas Refer to POC result
[2025-07-06 10:07] LABS: Blood Urea Nitrogen 18 mg/dL (9-16); Calcium 9.9 mg/dL (8.4-10.2); Creatinine Clr Calc Pharmacy 83.1; Estimated Glomerular Filt Rate > 60
[2025-07-06 10:11] LABS: Anion Gap 14 (12-20); Carbon Dioxide 29 mmol/L (22-29); Chloride 99 mmol/L (96-108); Potassium 4.5 mmol/L (3.3-5.1); Sodium 137 mmol/L (135-145)
[2025-07-06 11:37] LABS: Glucose, Whole Blood 256 mg/dL (60-115)
--- NOTE | 2025-07-06 14:51 | HO.PM.IMPN ---
Subjective Subjective Date of Service: 07/06/25 Interval History: Pneumonia /hypercarbic respiratory failure Review of Systems sob seems somewhat improving denies any chest pain or cough Review of Systems: Yes all other systems are reviewed and are negative Physical Exam Exam: Exam: Appearance: Alert.? Oriented cvs: [id number], [id number] res: Air entry diminished, at bases has faint wheezing expiratory abd: no rebound or guarding ,nt, bs present. ext pulses present , no cyanosis . neuro: axo3 , nonfocal. Vital Signs: Vital Signs: Last Vital Signs Temp 98.4 F 07/06/25 14:02 Pulse 75 07/06/25 14:02 Resp 20 07/06/25 14:02 BP 145/68 H 07/06/25 14:02 Pulse Ox 99 07/06/25 14:02 O2 Del Method Nasal Cannula 07/06/25 14:02 O2 Flow Rate 2 07/06/25 14:02 Oxygen Flow Rate 2 07/04/25 13:04 BMI result Body Mass Index 44.8 Objective Data Active Medications Acetaminophen (Acetaminophen 325 Mg Tablet) 975 mg PO Q6H PRN PRN Reason: Pain, Mild 1-3,fever,headache Last Admin: 07/05/25 19:44 Dose: 975 mg Documented By: KEY Acetazolamide (Acetazolamide 250 Mg Tablet) 250 mg PO QID [facility] Last Admin: 07/06/25 12:51 Dose: 250 mg Documented By: DHAVAL Albuterol Sulfate (Albuterol Sulfate (0.083%) 2.5 Mg/3 Ml Vial.Neb) 2.5 mg INHALE Q2H PRN PRN Reason: Shortness of Breath/Wheezing Albuterol Sulfate (Albuterol Sulfate (0.083%) 2.5 Mg/3 Ml Vial.Neb) 2.5 mg INHALE Q6H PRN PRN Reason: Shortness Of Breath Or Wheezing Amlodipine Besylate (Amlodipine Besylate 2.5 Mg Tablet) 2.5 mg PO DAILY [facility]; Protocol Last Admin: 07/06/25 08:59 Dose: 2.5 mg Documented By: DHAVAL Calcium Carbonate (Calcium Carbonate 750 Mg Tab.Chew) 750 mg PO Q4H PRN PRN Reason: Heartburn Carvedilol (Carvedilol 12.5 Mg Tablet) 12.5 mg PO BIDWM [facility]; Protocol Last Admin: 07/06/25 08:59 Dose: 12.5 mg Documented By: DHAVAL Ceftriaxone Sodium (Ceftriaxone Sodium 1 Gm Vial) 1 gm IVPUSH Q24H [facility] Last Admin: 07/05/25 19:44 Dose: 1 gm Documented By: KEY Dextrose (Dextrose 50 % 25 Gm/50 Ml Syringe) 25 gm IVPUSH Q15M PRN; Protocol PRN Reason: per Hypoglycemia Standing Ord. Doxycycline Monohydrate (Doxycycline Monohydrate 100 Mg Capsule) 100 mg PO Q12H [facility] Ergocalciferol (Ergocalciferol (Vitamin D2) 1,250 Mcg Capsule) 1,250 mcg PO MO [facility] Last Admin: 07/06/25 11:27 Dose: 1,250 mcg Documented By: DHAVAL Famotidine (Famotidine 20 Mg Tablet) 20 mg PO BID [facility] Last Admin: 07/06/25 08:58 Dose: 20 mg Documented By: DHAVAL Furosemide (Furosemide 40 Mg Tablet) 40 mg PO DAILY [facility]; Protocol Last Admin: 07/06/25 08:58 Dose: 40 mg Documented By: DHAVAL Glucose (Glucose Gel 15 Gm Gel..Gram.) 15 gm PO Q15M PRN; Protocol PRN Reason: per Hypoglycemia Standing Ord. Heparin Sodium (Porcine) (Heparin Sodium,Porcine 5,000 Unit/Ml Vial) 5,000 unit SUBCUT Q12H [facility] Last Admin: 07/06/25 08:59 Dose: 5,000 unit Documented By: DHAVAL Hydrocortisone (Hydrocortisone 1 % Cream 28.35 Gm Tube) 1 appl TOPICAL BID PRN; Protocol PRN Reason: Rash Insulin Glargine (Insulin Glargine,Hum.Rec.Anlog 100 Unit/Ml 10 Ml Vial) 20 unit SUBCUT BEDTIME [facility] Insulin Human Lispro (Insulin Lispro 100 Unit/Ml 3 Ml Vial) 0 unit SUBCUT QIDACHS [facility]; Protocol Last Admin: 07/06/25 11:38 Dose: 6 unit Documented By: DHAVAL Ketotifen Fumarate (Ketotifen Fumarate 0.025% Oph 5 Ml Drpbtl) 1 drop EYE-BOTH Q12H PRN PRN Reason: Allergy Symptoms Lidocaine (Lidocaine 4 % Patch Adh..Patch) 2 patch TRANSDERMA DAILY [facility]; Protocol Last Admin: 07/06/25 09:45 Dose: 2 patch Documented By: DHAVAL Loratadine (Loratadine 10 Mg Tablet) 10 mg PO DAILY PRN PRN Reason: allergies Losartan Potassium (Losartan Potassium 50 Mg Tablet) 50 mg PO BID [facility]; Protocol Last Admin: 07/06/25 08:58 Dose: 50 mg Documented By: DHAVAL Magnesium Hydroxide (Milk Of Magnesia 30 Ml Oral.Susp) 30 ml PO DAILY PRN PRN Reason: Constipation Melatonin (Melatonin 3 Mg Tablet) 6 mg PO BEDTIME PRN PRN Reason: Insomnia Methylprednisolone Sodium Succinate (Methylprednisolone Sod Succ 40 Mg/Ml Vial) 40 mg IVPUSH Q24H [facility] Last Admin: 07/06/25 05:45 Dose: 40 mg Documented By: KEY Omeprazole (Omeprazole 20 Mg Capsule.Dr) 20 mg PO DAILY@0630 [facility] Last Admin: 07/06/25 05:45 Dose: 20 mg Documented By: KEY Pravastatin Sodium (Pravastatin Sodium 40 Mg Tablet) 40 mg PO BEDTIME [facility] Sodium Chloride (0.9 % Sodium Chloride Flush 3 Ml Syringe) 3 ml IVFLUSH QSHIFT [facility] Last Admin: 07/06/25 09:15 Dose: 3 ml Documented By: DHAVAL Labs 07/05/25 06:28 07/06/25 09:38 Labs: Laboratory Results - last 24 hr 07/05/25 07/05/25 07/06/25 16:07 21:22 07:17 Hold Purple Top VBG pH VBG pCO2 VBG pO2 VBG HCO3 VBG O2 Saturation VBG Base Excess Anion Gap Estim Creat Clear Calc Estimated GFR POC Glucose 230 H 205 H 148 H Random Glucose Calcium 07/06/25 07/06/25 07/06/25 09:38 09:43 09:46 Hold Purple Top SEE NOTE VBG pH 7.39 VBG pCO2 52 VBG pO2 67 VBG HCO3 31 H VBG O2 Saturation 91.0 VBG Base Excess 5.5 Anion Gap 14 Estim Creat Clear Calc 83.1 Estimated GFR > 60 POC Glucose Random Glucose 237 H Calcium 9.9 07/06/25 11:27 Hold Purple Top VBG pH VBG pCO2 VBG pO2 VBG HCO3 VBG O2 Saturation VBG Base Excess Anion Gap Estim Creat Clear Calc Estimated GFR POC Glucose 256 H Random Glucose Calcium Microbiology Microbiology Results: Microbiology 07/05/25 Unknown Urine Culture - Final Urine clean catch - Clean Catch Midstream 07/04/25 16:24 Blood Culture - Preliminary Blood - Venous No growth after 24 hours. 07/04/25 15:25 Blood Culture - Preliminary Blood - Venous No growth after 24 hours. Assessment and Plan (1) COPD (chronic obstructive pulmonary disease): Status: Acute Plan 80 y/o woman with a PMHx significant for chronic hypoxic and hypercapnic respiratory failure and obesity hypoventilatory syndrome who presents with: Acute hypercapnic respiratory failure secondary to not utilizing BiPAP Right upper lobe pneumonia in the setting of acute COPD exacerbation; severe respiratory alkalosis. plan: abh ph, bicarb seems improving Pulse oximetry. Keep O2 sats > 89%. Supplemental oxygen, nebs, dimox,Continue empiric IV antibiotic therapy with ceftriaxone and doxycycline. bipap with naps & bedtime. pulm following NICO/obesity hypoventilatory syndrome. Nocturnal CPAP. HFpEF. Continue home diuretics. Recheck pro BNP. Type 2 diabetes mellitus. BG checks before meals at bedtime. Diabetic diet. Insulin sliding scale. Continue Lantus. Recent UTI. Hold nitrofurantoin as the patient has been receiving ceftriaxone. UA pending. Essential hypertension. Continue carvedilol and losartan. Hyperlipidemia. Continue statin. GERD. Continue PPI. Morbid obesity. BMI 45.6 kg/m2. Lifestyle changes. Encourage weight loss. Possible candidate for Ozempic. Ongoing need of stay: Acute hypercarbic respiratory failure- need oxygen, IV steroids, BiPAP, monitor pulse oximetry closely advised as respiratory status patient should be on BiPAP -now should be BiPAP with naps as well as sleeping. Staff is aware as well as Respiratory. Quality Stroke Does the patient have a stroke diagnosis?: No VTE Prior VTE?: No VTE Risk Level:: Medical - moderate - high VTE Device Contraindication: N/A - Device Ordered VTE Drug Contraindication: N/A - Med Ordered
--- NOTE | 2025-07-06 14:59 | MHC.CM.PN ---
EMR REVIEWED AND PER MD ROUNDS, PT IS NOT MEDICALLY CLEARED FOR DISCHARGE DUE TO MANAGEMENT OF COPD.
[2025-07-06 16:41] LABS: Glucose, Whole Blood 167 mg/dL (60-115)
[2025-07-06 20:09] LABS: Glucose, Whole Blood 205 mg/dL (60-115)
[2025-07-06] MEDS: Insulin Glargine,Hum.rec.anlog 100 UNIT/ML 10 ML VIAL 20 UNIT SUBCUT (20:40)
[2025-07-07 00:01] VITALS: BP 154/72
[2025-07-07 03:37] VITALS: BP 155/71; PULSE 86; RESP 18; TEMP 36.6; O2SAT 92
[2025-07-07 04:13] VITALS: PULSE 74; RESP 20; O2SAT 97
[2025-07-07 06:57] LABS: Glucose, Whole Blood 145 mg/dL (60-115)
[2025-07-07 07:04] VITALS: BP 137/70; PULSE 69; RESP 20; TEMP 36.5; O2SAT 95
[2025-07-07] MEDS: Lidocaine 4 % Patch ADH..PATCH 2 PATCH TRANSDERMA (08:58)
[2025-07-07] MEDS: 0.9 % Sodium Chloride Flush 3 ML SYRINGE IVFLUSH (09:07)
[2025-07-07 10:50] LABS: Glucose, Whole Blood 285 mg/dL (60-115)
--- NOTE | 2025-07-07 12:45 | P.DS_ITS ---
DS: Providers Provider Date of Service: 07/07/25 Date of admission: 07/04/25 21:11 Date of discharge: 07/07/25 Primary care physician: Unknown Physician Consults: 07/05/25 09:34 Consult to Pulmonology Routine Consulting Provider: [facility] Reason for consultation: Acute hypodermic respiratory failure Has provider been notified: No Attending physician on discharge: Jered Marsh Discharging clinician: Jered Marsh DS: Diagnosis Discharge Diagnosis (1) COPD (chronic obstructive pulmonary disease): Status: Acute DS: Summary Hospital Course Hospital Course: HPI: 80 years old woman with past medical history significant for COPD on home O2, NICO on CPAP, type 2 diabetes mellitus on insulin, and obesity hypoventilatory syndrome presents to the emergency department complaining of multiple symptoms including generalized body ache, constipation, stomach pain and headache. She also reports some pain to her right foot. She denied chest pain, cough, fever, chills, nausea, vomiting or diarrhea. She is a former tobacco smoker and denied illicit drug use. She has been taking nitrofurantoin for UTI. In the ED she was found to have stable vital signs. Blood workup so WBC 10.7, hemoglobin 10.3 and platelets 116. Venous blood gas is remarkable for pH 7.66, pCO2 35 and HC03 TNP. There are no other significant imbalances. Anion gap is 12, BUN 7 and creatinine 0.60. Glucose 130. There is no lactic acidosis. LFTs are normal. Pro BNP is over 700. Chest CTA showed right upper lobe pneumonia, bibasilar dependent subsegmental atelectasis and no main or segmental pulmonary embolism. ECG showed normal sinus rhythm, HR 70 beats per minute and no ischemic changes. ED tx: Doxycycline 100 mg IV, albuterol 2.5 mg neb, furosemide 20 mg IV, ceftriaxone 1 g IV, Tylenol 1 g IV. Hospital course: Patient was admitted for chronic hypoxemic and hypercarbic respiratory failure secondary to obesity hypoventilation syndrome and has so has COPD exacerbation, in addition also had right-sided pneumonia: Started on IV antibiotics, nebs, steroids, a. Patient had brief acute hypercarbic respiratory failure due to not utilization of BiPAP. Seen by Pulmonary: Recommended to continue above management in addition recommended to use BiPAP while in hospital, in addition patient also received Diamox due to elevated bicarb. Due to above management patient seems to be improved significantly, blood culture negative, in addition patient also had urinary frequency so UA showed pyuria and trace bacteriuria, urine culture mixed-patient is already on antibiotic with Ceftin and doxycycline. Discussed with the Pulmonary upon discharge patient will be continue full using her bipap at home, current setting, complete antibiotic home, chest imaging in 3-4 weeks to see resolution pneumonia. BiPAP compliance discussed with the patient by multiple people including respiratory and hospitalist service as well as Pulmonary. Patient has chronic right foot pain:Persistent lateral subluxation of the talus with respect to the tibia and widening of the medial aspect of the ankle mortise. Moderate degenerative changes : Discussed with the patient the foot pain is chronic since the symptoms are from more than 1 year duration after the fall.. She follows up with the PCP. Continue pain control, possible partial weight-bearing on the foot as well as consider outpatient follow-up with [facility] ortho foot and ankle. plan: Complete Ceftin/doxycycline as prescribed. Repeat chest imaging in 3-4 weeks to see resolution of pneumonia. Follow-up with PCP and Pulmonary outpatient. For foot pain-as above chronic fracture: Ortho recommended-partial weight- bearing/pain control(tylenol)/follow-up with [facility] ortho ankle and foot. Assessment and plan coordination time spent 50 minute, all explained to the patient in detail length with the help of nutrition services associate, all question answered. Patient understand above plan and in agreement with that. Time Attestation Total time managing care of this patient today: 50 mintues. Discharge Coordination Time (in mins): 50min Quality: Safe Use of Opioids Does Pt have an Active Cancer Diagnosis on the Problem List?: No Quality: Stroke Does the patient have a stroke diagnosis?: No Physical Exam Exam: Exam: Appearance: Alert.? Oriented cvs: rrr, [id number] res: Air entry fair ,no rales or wheezing abd: no rebound or guarding ,nt, bs present. ext pulses present , no cyanosis . has minimum right foot pain neuro: axo3 , nonfocal. Vital Signs: Vital Signs: Last Vital Signs Temp 97.7 F 07/07/25 07:04 Pulse 69 07/07/25 07:04 Resp 20 07/07/25 07:04 BP 137/70 07/07/25 07:04 Pulse Ox 95 07/07/25 07:04 O2 Del Method Nasal Cannula 07/07/25 07:04 O2 Flow Rate 2 07/07/25 07:04 Oxygen Flow Rate 2 07/04/25 13:04 BMI result Body Mass Index 44.8 DS: Data Data Completed and Pending Completed studies during hospitalization [Text1]: Procedures Assistance with Respiratory Ventilation, Less than 24 Consecutive Hours, Continuous Positive Airway Pressure (11/12/24) Insertion of Endotracheal Airway into Trachea, Via Natural or Artificial Opening Endoscopic (07/12/21) Inspection of Lower Intestinal Tract, Via Natural or Artificial Opening Endoscopic (02/20/22) Resection of Gallbladder, Percutaneous Endoscopic Approach (07/12/21) Respiratory Ventilation, Less than 24 Consecutive Hours (07/12/21) Labs on day of discharge: Laboratory Results - last 24 hr 07/06/25 07/06/25 07/07/25 16:38 20:05 06:53 POC Glucose 167 H 205 H 145 H 07/07/25 10:46 POC Glucose 285 H Preliminary micro results at discharge 07/04/25 16:24 Blood Culture - Preliminary Blood - Venous No growth after 48 hours. 07/04/25 15:25 Blood Culture - Preliminary Blood - Venous No growth after 48 hours. Imaging Chest x-ray: Radiologist's impression: ITS Impressions Foot X-Ray 07/07/25 10:38 IMPRESSION: Persistent lateral subluxation of the talus with respect to the tibia and widening of the medial aspect of the ankle mortise. Moderate degenerative changes as described. Ankle X-Ray 07/07/25 10:39 IMPRESSION: Persistent lateral subluxation of the talus with respect to the tibia and widening of the medial aspect of the ankle mortise. Moderate degenerative changes as described. Discharge Plan Discharge Anticipated Discharge Date/Time: 07/07/25 12:19 Patient Disposition: Home Health Service Discharge Diagnosis: pneumonia /copd excerebation, ch pains Referrals: [facility] [Outside] - 1 Week [facility] [Outside] - 1 Week Physician,Unknown J [Primary Care Provider, Medical] - 1 Week Discharge Medications: New doxycycline monohydrate 100 mg Capsule 100 mg PO Q12H Qty: 13 0RF cefuroxime axetil 500 mg Tablet 500 mg PO Q24H Qty: 14 0RF prednisone 20 mg tablet 40 mg PO DAILY Qty: 8 0RF acetaminophen [Tylenol] 325 mg tablet 650 mg PO QID PRN (Reason: pain (scale score 4-6)) Qty: 10 0RF Continued insulin lispro [Humalog KwikPen Insulin] 100 unit/mL insulin pen 5 unit subcut BIDWM ketotifen fumarate 0.025 % (0.035 %) drops 1 drp ophthalmic (eye) Q12H PRN (Reason: Allergy Symptoms) carvedilol 12.5 mg tablet 12.5 mg PO BIDWM Protocol: Hold for SBP/HR < HOLD for SBP < : 90 HOLD for HR < : 60 pravastatin 40 mg tablet 40 mg PO BEDTIME ergocalciferol (vitamin D2) 1,250 mcg (50,000 unit) capsule 1,250 mcg PO MO albuterol sulfate 90 mcg/actuation HFA aerosol inhaler 2 puff inhalation Q4H PRN (Reason: Wheezing) famotidine 20 mg tablet 20 mg PO BID insulin glargine [Lantus U-100 Insulin] 100 unit/mL Solution 20 unit subcut BEDTIME Qty: 10 0RF pantoprazole 20 mg tablet,delayed release (DR/EC) 20 mg PO DAILY@0630 albuterol sulfate 2.5 mg /3 mL (0.083 %) solution for nebulization 2.5 mg inhalation Q6H PRN (Reason: Shortness Of Breath Or Wheezing) hydrocortisone 1 % cream 1 appl topical BID PRN (Reason: rash) Qty: 28.35 0RF metformin 500 mg Tablet Extended Release 24 Hr 1,000 mg PO DAILY@1700 (DME) lancets [TRUEplus Lancets] 33 gauge misc See Rx Instructions topical .MEDSUPPLY Qty: 100 Rx Instructions: As directed furosemide 40 mg tablet 40 mg PO DAILY ondansetron 4 mg tablet,disintegrating 4 - 8 mg PO Q8H PRN (Reason: Nausea And Vomiting) losartan 50 mg tablet 50 mg PO BID Qty: 120 4RF cetirizine 10 mg tablet 10 mg PO DAILY PRN (Reason: allergies) amlodipine 2.5 mg tablet 2.5 mg PO DAILY Qty: 30 5RF Rx Instructions: add to pill pack Discontinued nitrofurantoin monohyd/m-cryst 100 mg capsule 1 cap PO BID Rx Instructions: prescribed 07/03/25 for 7 days Discharge Orders: Discharge Order (Routine); Ordered 07/07/25 Ordered By: Jered Marsh Diet: Advance to usual diet Activity on Discharge: As tolerated Stand Alone Forms: Patient Portal Discharge page Print Language: Estonian Care Plan Goals: Patient was admitted for chronic hypoxemic and hypercarbic respiratory failure secondary to obesity hypoventilation syndrome and has so has COPD exacerbation, in addition also had right-sided pneumonia: Started on IV antibiotics, nebs, steroids, a. Patient had brief acute hypercarbic respiratory failure due to not utilization of BiPAP. Seen by Pulmonary: Recommended to continue above management in addition recommended to use BiPAP while in hospital, in addition patient also received Diamox due to elevated bicarb. Due to above management patient seems to be improved significantly, blood culture negative, in addition patient also had urinary frequency so UA showed pyuria and trace bacteriuria, urine culture mixed-patient is already on antibiotic with Ceftin and doxycycline. Discussed with the Pulmonary upon discharge patient will be continue full using her bipap at home, current setting, complete antibiotic home, chest imaging in 3-4 weeks to see resolution pneumonia. BiPAP compliance discussed with the patient by multiple people including respiratory and hospitalist service as well as Pulmonary. Patient has chronic right foot pain:Persistent lateral subluxation of the talus with respect to the tibia and widening of the medial aspect of the ankle mortise. Moderate degenerative changes : Discussed with the patient the foot pain is chronic since the symptoms are from more than 1 year duration after the fall.. She follows up with the PCP. Continue pain control, possible partial weight-bearing on the foot as well as consider outpatient follow-up with [facility] ortho foot and ankle. plan: Complete Ceftin/doxycycline as prescribed. Repeat chest imaging in 3-4 weeks to see resolution of pneumonia/uti. Follow-up with PCP and Pulmonary outpatient. For foot pain-as above chronic fracture: Ortho recommended-partial weight- bearing/pain control/follow-up with [facility] ortho ankle and foot. Health Concerns: Complete Ceftin/doxycycline as prescribed. Repeat chest imaging in 3-4 weeks to see resolution of pneumonia/. Follow-up with PCP and Pulmonary outpatient. For foot pain-as above chronic fracture: Ortho recommended-partial weight- bearing/pain control/follow-up with [facility] ortho ankle and foot. Plan of Treatment: As above. Assessment: As above. Patient Instructions: Pneumonia (DC)
--- NOTE | 2025-07-07 14:16 | MHC.CM.PN ---
PATIENT IS MEDICALLY CLEARED FOR DISCHARGE HOME WITH RESUMPTION OF PREVIOUS [facility] SERVICES, SHE WILL TRANSPORT HOME VIA [email or web address] (BOOKING ID#[id number]). THIS CM MET WITH PATIENT AND A ENGINE DYNAMOMETER TESTER TO DISCUSS DISCHARGE PLANS, SHE IS AWARE AND IN AGREEMENT WITH THE DISCHARGE PLAN.
== END 2025-07-07 15:00 | disposition home health service (06) | DRG 193 ==
LOC: HO.ED 14:42 → HO.EDOVER 21:15 → HO.S3 23:31 → HO.IMC 07-05 12:40
PROVIDERS: Physician Assistant Medical; Admitting Provider Internal Medicine; Emergency Provider Emergency Medicine; PCP Internal Medicine; Visit Provider Internal Medicine
DX: J18.9 Pneumonia, unspecified organism (principal); I50.33 Acute on chronic diastolic (congestive) heart failure; J96.21 Acute and chronic respiratory failure with hypoxia; J96.22 Acute and chronic respiratory failure with hypercapnia; E66.2 Morbid (severe) obesity with alveolar hypoventilation; Z68.41 Body mass index [BMI] 40.0-44.9, adult; J44.1 Chronic obstructive pulmonary disease with (acute) exacerbation; J44.0 Chronic obstructive pulmonary disease with (acute) lower respiratory infection; Z20.822 Contact with and (suspected) exposure to COVID-19; Z99.81 Dependence on supplemental oxygen; I11.0 Hypertensive heart disease with heart failure; E78.5 Hyperlipidemia, unspecified; K21.9 Gastro-esophageal reflux disease without esophagitis; Z71.3 Dietary counseling and surveillance; Z87.891 Personal history of nicotine dependence; Z91.199 Patient's noncompliance with other medical treatment and regimen due to unspecified reason; Z79.4 Long term (current) use of insulin; Z79.84 Long term (current) use of oral hypoglycemic drugs; Z79.899 Other long term (current) drug therapy
CPT/HCPCS: 36415; 71045; 71275; 73610; 73630; 80048; 80076; 80179; 81001; 82140; 82803; 82947; 83605; 83735; 83880; 84484; 85025; 85027; 87040; 87086; 87502; 87635; 93005; 93971; 94640; 94660; 97162; 99285; J0131; J0696; J1271; J1644; J1938; J2919; J3475; Q9967

== ENCOUNTER → 2025-07-04 14:12 | Outpatient (BNV) | payer OTHER, SELFPAY | PROVIDERS: Admitting Provider Internal Medicine; Emergency Provider Emergency Medicine; Visit Provider Internal Medicine Cardiovascular Disease | DX: R06.00 Dyspnea, unspecified (principal) | CPT/HCPCS: 93010 ==

== ENCOUNTER → 2025-07-04 14:27 | Outpatient (BNV) | payer OTHER, SELFPAY | PROVIDERS: Emergency Provider Emergency Medicine; Visit Provider Radiology Diagnostic Radiology | DX: J18.9 Pneumonia, unspecified organism (principal); J98.11 Atelectasis; R06.02 Shortness of breath | CPT/HCPCS: 71045; 71275 ==

== ENCOUNTER 2025-07-04 21:11 | Outpatient (BNV) | payer OTHER, SELFPAY | END 2025-07-05 10:27 | PROVIDERS: Admitting Provider Internal Medicine; Emergency Provider Emergency Medicine; Visit Provider Radiology Diagnostic Radiology | DX: M79.661 Pain in right lower leg (principal) | CPT/HCPCS: 93971 ==

== ENCOUNTER 2025-07-04 21:11 | Outpatient (BNV) | payer OTHER, SELFPAY | END 2025-07-07 10:39 | PROVIDERS: Admitting Provider Internal Medicine; Emergency Provider Emergency Medicine; Visit Provider Radiology Diagnostic Radiology | DX: S93.01XA Subluxation of right ankle joint, initial encounter (principal); M19.071 Primary osteoarthritis, right ankle and foot | CPT/HCPCS: 73610; 73630 ==

== ENCOUNTER → 2025-07-04 21:11 | Outpatient (BNV) | payer OTHER, SELFPAY | PROVIDERS: Admitting Provider Internal Medicine; Emergency Provider Emergency Medicine; Visit Provider Internal Medicine Pulmonary Disease | DX: E66.2 Morbid (severe) obesity with alveolar hypoventilation (principal); Z68.41 Body mass index [BMI] 40.0-44.9, adult; Z99.81 Dependence on supplemental oxygen; J96.01 Acute respiratory failure with hypoxia; J96.12 Chronic respiratory failure with hypercapnia | CPT/HCPCS: 99223 ==

== ENCOUNTER → 2025-07-04 21:11 | Outpatient (BNV) | payer OTHER, SELFPAY | PROVIDERS: Admitting Provider Internal Medicine; Emergency Provider Emergency Medicine; Visit Provider Internal Medicine | DX: J44.9 Chronic obstructive pulmonary disease, unspecified (principal) | CPT/HCPCS: 99223; 99232; 99239 ==

== ENCOUNTER 2025-07-27 09:58 | Outpatient (AMB) | payer OTHER, SELFPAY ==
--- NOTE | 2025-07-27 10:33 | A.OFFVIS_ITS ---
Vital Signs 07/27/25 10:34 Height 5 ft 3 in Weight 240 lb BMI 42.5 Intake Visit Reasons: F/U fracture, injury 2023 Intake Note: Magalie is a 80 year old femal who presents today as a new patient for an evaluation of her right ankle fracture of 2023. Patient states she had a fell at the long term while trying to use the restroom and she was seen at [facility]. She was placed in a cast and gradually transitioned to a cam boot. She was prescribed Tylenol to take PRN for her pain. Pain is located on the medial and lateral aspect of her ankle and she finds that she is experiencing stiffness Certified Flex Endoscope Reprocessor Required: Yes Certified Flex Endoscope Reprocessor Services: Certified Flex Endoscope Reprocessor Present Certified Flex Endoscope Reprocessor Name: [id number] Allergies No Known Allergies (No Known Allergies*) Allergy (Verified 07/27/25 10:37) HPI HPI F/U fracture, injury 2023: Details: 80-year-old female with past medical history of diabetes mellitus type 2, COPD, NICO, CHF, presenting for right ankle pain. The patient has a history of right ankle fracture sustained 11/13/2023 after a mechanical fall. She was treated conservatively due to her multiple comorbidities via casting. During the treatment. , her ankle had further displaced and healed in a malunited position. Currently, the patient ambulates without any ankle support. She uses a walker and states that she has pain after her first step. The patient states she has not tried any custom bracing. Patient also states that she did not use any assistive devices prior to her fracture. [facility] Medical History Unspecified urinary incontinence NICO (obstructive sleep apnea) CHF (congestive heart failure) 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 indication of end stage renal disease in patient 6 to 64 years of age Lymphadenopathy Abdominal pain Bursitis of right hip Osteoarthritis of right hip Restrictive ventilatory defect Dyspnea on exertion Varicose veins of right lower extremity with inflammation Pneumonitis Pulmonary hypertension Hypertensive cardiovascular disease Acute hypoxic on chronic hypercapnic respiratory failure Acute on chronic respiratory failure with hypoxemia Obesity hypoventilation syndrome GERD (gastroesophageal reflux disease) Hypertension Diabetes mellitus COPD (chronic obstructive pulmonary disease) Surgical History S/P laparoscopic cholecystectomy (07/14/21) Family History Mother Diabetes Social History Household Members: Other Household Members Other:: Cousin Housing: Unknown / Unable to assess Do you presently have visiting nurse or other home services: Yes Alcohol intake: never Patient Tobacco Use Status: Former Tobacco user Tobacco use type: Cigarette Years Smoked: 20 Advance Directives Date on File: 02/22/22 service: No Current occupational status: unemployed and disabled Review of Systems Const All systems reviewed & are unremarkable except as noted in HPI and below Physical Exam Vital Signs: BMI result Body Mass Index 42.5 Extrem Other: *Bilateral Lower Extremity Focused Exam Vascular: DP/PT 1/4, CFT less than 3 seconds all digits, temperature gradient warm to cool. No pedal or ankle edema. Derm: No open wounds or clinical signs of infection. No skin tenting. Neuro: Protective sensation grossly intact to bilateral lower extremities. MSK: Right ankle valgus and appears proximally 45 degrees externally rotated. Moderate pain on palpation of the medial ankle gutter and over the lateral malleolus. Results Reviewed Results Reviewed: Podiatry X-ray Read: 07/07/2025 X-ray right ankle 3 views (AP, Mortise, Lateral) nonweightbearing films reviewed which shows right ankle valgus with 11 mm medial clear space, moderate joint space narrowing on lateral view, healed shortened fibula fracture.. I personally reviewed the imaging and my findings are listed above. Assessment & Plan Assessment & Plan (1) Right ankle joint deformity: Code(s): M21.961 - Unspecified acquired deformity of right lower leg Category: Medical Plan: * Reviewed right ankle x-rays with the patient and her . * Referred for custom AFO right ankle. (2) Arthritis of right ankle: Code(s): M19.071 - Primary osteoarthritis, right ankle and foot Category: Medical Plan: * The patient may require a primary TTC fusion. Explained that she has a high- risk candidate for surgery. She was recommended exploring all nonsurgical opt ions first. Medications: New [Custom Foot Ankle Orthosis] Please dispense custom ankle foot orthosis (Gely brace) for right lower extremity 1 ea 0RF right ankle osteoarthritis and deformity M19.071 - Primary osteoarthritis, right ankle and foot, M21.961 - Unspecified acquired deformity of right lower leg [Custom Ankle Foot Orthosis] Please dispense custom Gely AFO for right ankle. 1 ea 0RF right ankle deformity Coding Level of Care Code New Pt Level 4 (72255) Diagnoses Right ankle joint deformity M21.961 Arthritis of right ankle M19.071 Time Spent (min) 25
[2025-07-27 10:34] VITALS: BMI 42.5
--- OUTSIDE RECORDS SUMMARY | 2025-07-27 11:28 | XMS_ITS | Encounter Summary ---
Author Organization [employer] Address [address] [facility] [address] [place] [address] Care Team Providers Care Boat Ride Operator Name Role Phone uLke Gayle PharmD Unavailable Unavail able Bárbara Rader MD Primary Care Provide r Reason for Visit * Reason Comments Med Refill Encounter Details Date Type Department Care Team ([facility] st Contact Info) Description 07/23/2025 Refill [facility] [address] [place] [address] Carmine Patel MD [address] [place] [address] Type 2 diabetes mellitus with other specified complication, without long-term current use of insulin (HCC) Social History Tobacco Use Types Packs/Day Years [...] Description 08/11/2025 11:00 AM EST Office Visit [facility] [address] [place] [address] Bárbara Rader MD [address] [place] [address] 10/13/2025 1:30 PM EST Office Visit [facility] [address] [place] [address] Abigail James, OD [address] [place] [address] documented as of this encounter Goals Goal Patient Goal Type Associated Problems Recent Progress Patient-Stated? Author Blood Pressure < 140/90 Blood Pressure 124/70( 025 11:42 AM EDT) No Luke Gayle, PharmD documented as of this encounter Visit Diagnoses Diagnosis Type 2 diabetes mellitus with other specified complication, without long-term current use of insulin (HCC) documented in this encounter Additional Health Concerns Assessment Noted Time PHQ-9 Depression Total Score: 0 05/14/20 25 11:46 AM EDT documented as of this encounter Care Teams Boat Ride Operator Relationship Specialty Start Date End Date Bárbara Rader MD [address] [place] [phone] PCP - General Internal Medicine 07/16/24 Luke Gayle PharmD Pharmacist Internal Medicine 09/04/22 [facility] 11/17/24 documented as of this encounter
--- OUTSIDE RECORDS SUMMARY | 2025-07-27 11:28 | XMS_ITS | Clinical Summary ---
Author Organization [employer] Address [address] [facility] [address] [place] [address] Care Team Providers Care Restaurant Line Server Name Role Phone Luke Gayle PharmD Unavailable [...] per day. 30 tablet 11 024 Active Continuous Glucose Press Operator Carbon Blocks (FreeStyle Silvana 2 [place]) deviceIndications :Type 2 diabetes mellitus with other specified complication, without long-term current use of insulin ([facility]) Scan sensor every 8 hours 1 each 024 Active Continuous Glucose Sensor (FreeStyle Silvana 2 Sensor) miscIndications:T ype 2 diabetes mellitus with other specified complication, without long-term current use of insulin ([facility]) Apply 1 sensor every 14 days 2 each 11 024 Active Blood Glucose Monitoring Suppl (FreeStyle [place] Lite) w/Device kitIndications:Ty pe 2 diabetes mellitus with other specified complication, without long-term current use of insulin ([facility]) Use to test blood sugar 2 times daily 1 kit 024 Active ergocalciferol (Vitamin D2) 1.25 MG (51435 UT) capsule TAKE ONE CAPSULE EVERY WEEK 12 capsule 5 024 Active loratadine (Claritin) 10 MG tabletIndications :Pruritus Take 1 tablet (10 mg) by mouth Once per day. 30 tablet 024 Active Easy Touch Lancets 33G/Twist miscIndications:T ype 2 diabetes mellitus with other specified complication, without long-term current use of insulin (HCC) TEST BLOOD SUGAR TWICE DAILY 100 each [...] at bedtime. 90 tablet 3 025 Active hydrocortisone 1 % creamIndications: Dermatitis, seborrheic Apply topically 2 times daily. 28 g 025 Active TRUEplus Lancets 33G misc TEST BLOOD SUGAR TWICE DAILY 100 each 2 025 Active BD Pen Needle Gracy Ultrafine 32G X 4 MM misc USE DIRECTED FOUR TIMES DAILY DIRECTED 300 each 3 025 Active carvedilol (Coreg) 12.5 MG tablet TAKE 1 TABLET BY MOUTH TWICE DAILY IN THE MORNING AND IN THE EVENING WITH MEALS 60 tablet 3 025 Active pantoprazole (ProtoNix) 20 MG EC tablet TAKE 1 TABLET BY MOUTH EVERY MORNING BEFORE BREAKFAST DO NOT BREAK, CRUSH, DISSOLVE OR CHEW 30 tablet 3 025 Active Tirzepatide (Mounjaro) 2.5 MG/0.5ML solution auto-injectorIndi cations:Type 2 diabetes mellitus with other specified complication, without long-term current use of insulin ([facility]) Inject 2.5 mg under the skin 1 (one) time per week. 2 mL 2 025 Active amLODIPine (Norvasc) 2.5 MG tablet 025 Active cephalexin (Keflex) 500 MG capsule Take 1 capsule by mouth every 6 (six) hours. 025 Active metFORMIN XR (Glucophage-XR) 500 MG 24 hr tablet 025 Active HumaLOG KWIKPEN 100 UNIT/ML injectionIndicati ons:Type 2 diabetes mellitus with other specified complication, without long-term current use of insulin ([facility]) INJECT 5 UNITS SUBCUTANEOUSLY THREE TIMES DAILY WITH BREAKFAST, WITH LUNCH, AND WITH DINNER 15 mL 8 025 Active furosemide (Lasix) 40 MG tabletIndications :Stage 3a chronic kidney disease (CMS/HCC) ([facility]) TAKE 1 TABLET BY MOUTH EVERY MORNING 90 tablet 1 025 Active Lantus SoloStar 100 UNIT/ML penIndications:Ty pe 2 diabetes mellitus with other specified complication, without long-term current use of insulin ([facility]) INJECT 20 UNITS SUBCUTANEOUSLY AT BEDTIME 15 mL 3 025 Active insulin glargine (Lantus SoloStar) 100 UNIT/ML penIndications:Ty pe 2 diabetes mellitus with other specified complication, without long-term current use of insulin ([facility]) Inject 20 Units under the skin at bedtime. 3 mL 3 024 2024 Discontinued Active Problems Problem Noted [...] for therapy UTI symptoms 08/05/2024 Chronic bronchitis ([facility]/HCC) 07/16/2024 Assessment & Plan (07/16/2024 12:43 PM [...] percocet offered. 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 her medication at the pharmacy (new medication [...] Encounters Date Type Department Care Team Description 07/23/2025 Telephone [facility] [address] [place] [address] Bárbara Rader MD Med Refill 07/23/2025 Refill [facility] [address] [place] [address] Carmine Patel MD Type 2 diabetes mellitus with other specified complication, without long-term current use of insulin ([facility]) 07/21/2025 Telephone [facility] [address] [place] [address] Bárbara Rader MD Call Back Request 06/09/2025 Telephone [facility] [address] [place] [address] Bárbara Rader MD 06/08/2025 Telephone [facility] [address] [place] [address] Bárbara Rader MD Durable Medical Equipment (DME Request: Power Recliner) 06/08/2025 Refill [facility] [address] [place] [address] Carmine Patel MD Type 2 diabetes mellitus with other specified complication, without long-term current use of insulin ([facility]); Stage 3a chronic kidney disease ([facility]) 06/08/2025 Refill [facility] [address] [place] [address] Bárbara Rader MD Stage 3a chronic kidney disease ([facility]) 06/05/2025 Results Follow-Up [facility] [address] [place] [address] Bárbara Rader MD Urinalysis, Complete, with Reflex to Culture 06/05/2025 Orders Only [facility] [address] [place] [address] Bárbara Rader MD Recurrent UTI (Primary Dx) 06/05/2025 Orders Only [facility] [address] [place] [phone] Bárbara Rader MD 05/14/2025 11:30 AM EDT Office Visit [facility] [address] [place] [phone] Bárbara Rader MD Recurrent UTI (Primary Dx); Type 2 diabetes mellitus with other specified complication, without long-term current use of insulin ([facility]); Chronic pain of right ankle 05/14/2025 Telephone [facility] [address] [place] [phone] Bárbara Rader MD Durable Medical Equipment (DME RX Bariatric Commode(CCA)) 05/14/2025 Travel 05/13/2025 Telephone [facility] [address] [place] [address] Bárbara Rader MD chart prep 05/01/2025 Refill [facility] [address] [place] [address] Bárbara Rader MD 04/28/2025 9:20 AM EDT Office Visit [facility] [address] [place] [address] Abigail James, OD Type 2 diabetes mellitus with other specified complication, without long-term current use of insulin ([facility]) (Primary Dx) 04/28/2025 Travel 04/27/2025 Travel from Last 3 Months Immunizations Immunization Administration Dates Next Due Influenza High-dose Quadriva lent Preservative Free 06/18/2023,06/09/2022,07/07/2021 Influenza injectable quadriv alent IIV4 with preservative 07/27/2016 Influenza, High Dose Seasona l, Preservative Free 06/03/2024,07/16/2019,07/31/2018,06/06 Influenza, IIV3, injectable 07/27/2014, 3,07/05/2011 Influenza, Split (incl. efren fied surface antigen) 07/19/2012 Influenza, intradermal, quad rivalent, preservative free 05/15/2016 Influenza, seasonal, injecta ble, preservative free 05/28/2020 Novel [id number], all formulations 05/15/2016 Pneumococcal Conjugate PCV 13 [...] 11:00 AM EST Office Visit [facility] [address] [place], [place] [phone] Bárbara Rader MD [address] [place] [address] 10/13/2025 1:30 PM EST Office Visit [facility] [address] [place], [place] [phone] Abigail James, OD [address] [place] [address] Health Maintenance Due Date Last Done Comments [...] exists Diabetes: Foot Exam 06/03/2025 06/03/2024 Diabetes: Hemoglobin A1C 11/14/2025 025, 03/02/2025, 11/25/2024, Additional history exists Alcohol/Substance Use Screening 11/25/2025 11/25/2024 SDOH Screening 02/20/2026 02/20/2025 Depression Screening 05/14/2026 05/14/2025, 05/14/20 25 Lipid Panel 05/14/2026 05/14/2025, 12/2023, 08/17/2020 Tobacco Screening 05/24/2026 05/24/2025 Diabetes: Urine Protein Screening 06/05/2026 06/05/2025, 06/20/2024, 08/17/2020 Pneumococcal Vaccine: 50+ Years Completed 05/03/2015, 07/27/2014, [...] 11:42 AM EDT) No Dellogono, Luke, PharmD Procedures Procedure Name Priority Date/Time Associated Diagnosis Comments URINALYSIS, COMPLETE, WITH REFLEX TO CULTURE Routine 06/05/2025 12:00 AM EDT ALBUMIN, RANDOM URINE W/CREATININE Routine 06/05/2025 12:00 AM EDT Type 2 diabetes mellitus with other specified complication, without long-term current use of insulin (CMS/HCC) CULTURE, URINE, ROUTINE Routine 06/05/2025 12:00 AM EDT Recurrent UTI COMPREHENSIVE METABOLIC PANEL Routine 05/14/2025 12:11 PM EDT Type 2 diabetes mellitus with other specified complication, without long-term current use of insulin (CMS/HCC) LIPID PANEL, STANDARD Routine 05/14/2025 12:11 PM EDT Type 2 diabetes mellitus with other specified complication, without long-term current use of insulin (CMS/HCC) POCT GLYCATED HEMOGLOBIN, TOTAL Routine 05/14/2025 11:44 [...] complication, without long-term current use of insulin ([facility]) from Last 3 Months or Most Recently Relevant to Health Maintenance Results * (ABNORMAL) Urinalysis, Complete, with Reflex to Culture (06/05/2025 12:00 AM EDT) Color Urine Yellow [facility] Appearance Urine Cloudy [facility] PH 8.5 5.0 - 9.0 [facility] Glucose Urine UA Negative Negative mg/dL [facility] Urine Blood Trace(A) Negative [facility] Specific [place] - Urine 1.010 1.005 - 1.025 [facility] Urine Protein Negative Neg-Trace mg/dL [facility] Urine Ketones Negative Negative mg/dL [facility] Nitrite Urine Negative Negative [facility] Leukocyte Esterase Urine Large (3+)(A) Negative [facility] RBC Urine 0-2 0 - 2 /HPF [facility] Urine WBC >50(A) 0 - 5 /HPF [facility] Urine Squamous Epithelial Cell 0-2 0 - 2 /HPF [facility] Urine Bacteria 1+ None Seen [facility] Hyaline Casts, Urine 0-2 0 - 2 /LPF [facility] 06/05/2025 06/05/2025 Narrative [facility] - 06/05/2025 1:37 PM EDT Urine, Clean Catch us Bárbara Raymundo MD LAB URINE ORDERABLES Final Result [facility] [address] [place], [place] [phone] * (ABNORMAL) Albumin, Random Urine W/Creatinine (06/05/2025 12:00 AM EDT) Creatinine, Urine 42.22 mg/dL [facility] Microalbumin Urine 14.0 mg/L [facility] Microalbum Creatinine Ratio Ur 33.1(H) <30 ug/mg cr [facility] Comment:Albumin/Creatinine R atio Reference Ranges: Normal: < 30 ug/mg creatinine Microalbuminuria: 30 - 300 ug/mg creatinineClinical Albuminuria: > 300 ug/mg creatinine Urine (Urine, Random) 06/05/2025 06/05/2025 us Bárbara Raymundo MD LAB URINE ORDERABLES Final Result Performing Organization Address [facility]/ZIP Co de Phone Number [facility] [address] [place] [phone] * Culture, Urine, Routine (06/05/2025 12:00 AM EDT) Urine Urine specimen obtained by clean catch procedure / Unknown 06/05/2025 06/05/2025 Comment:UACC Narrative [facility] - 06/07/2025 7:17 AM EDT Escherichia coli Quant > 100,000 cfu/mL Escherichia coli: Ampicillin <=2(S) Escherichia coli: Cefazolin (Urine) 4(S) Escherichia coli: Cefepime <=0.12(S) Escherichia coli: Ceftriaxone <=0.25(S) Escherichia coli: Ciprofloxacin <=0.06(S) Escherichia coli: Gentamicin <=1(S) Escherichia coli: Nitrofurantoin <=16(S) Escherichia coli: Trimethoprim/Sulfamethoxazole <=20(S) Specimen Source: Urine clean catch us Bárbara Raymundo MD LAB MICROBIOLOGY - GE NERAL ORDERABLES Final Result Performing Organization Address [facility]/ZIP Co de Phone Number [facility] [address] [place] [phone] * Lipid Panel, Standard (05/14/2025 12:11 PM EDT) Triglycerides 131 <150 mg/dL [facility] Comment:Desirable Triglyceri de: less than 150 mg/dLBorderline High Triglyceride 150-199 mg/dLHigh Triglyceride: 200-499 mg/dLVery High Triglyceride: greater than or equal to 5OO mg/dL Cholesterol 139 <200 mg/dL [facility] Comment:Desirable Cholestero l: less than 200 mg/dLBorderline High Cholesterol: 200-239 mg/dLHigh Cholesterol: greater than 239 mg/dL LDL Cholesterol Calculated 63 <100 mg/dL [facility] Comment:Desirable LDL: less than 100 mg/dLNear Optimal/Above Optimal LDL: 110- 129 mg/dLBorderline High LDL: 130-159 mg/dLHigh LDL: 160-189 mg/dLVery High LDL: greater than or equal to 190 mg/dL HDL Cholesterol 50 >40 mg/dL [facility] Comment:Desirable HDL: great er than 40 mg/dL Note: This HDL assay may give artificially low results in patients with liver disease. Blood Venous blood specimen / Unknown 05/14/2025 12:11 PM EDT 05/14/2025 1:12 PM EDT Bábrara Raymundo MD LAB BLOOD ORDERABLES Final Result [facility] [address] [place] [address] [phone] * (ABNORMAL) Comprehensive Metabolic Panel (05/14/2025 12:11 PM EDT) Sodium 139 135 - 145 mmol/L [facility] Potassium 4.1 3.3 - 5.1 mmol/L [facility] Comment:Slight Hemolysis.Int erpret result with caution. Chloride 96 96 - 108 mmol/L [facility] Carbon Dioxide 35(H) 22 - 29 mmol/L [facility] Anion Gap 12 12 - 20 [facility] Urea Nitrogen (BUN) 12 9 - 16 mg/dL [facility] Creatinine, Serum 0.59 0.5 - 1.4 mg/dL [facility] Estimated Glomerular Filt Rate >60 [facility] Comment:Chronic Kidney Disea se: Estimated GFR < 60 mL/min/1.00e2Smbvsr Kidney Disease: Estimated GFR < 15 mL/min/1.73m2 Glucose 98 60 - 115 mg/dL [facility] Calcium 8.8 8.4 - 10.2 mg/dL [facility] Bilirubin, Total 0.2 0.0 - 1.0 mg/dL [facility] Aspartate Amino Transferase 36(H) 5 - 31 U/L [facility] Comment:Slight Hemolysis.Int erpret result with caution. Alanine Aminotransferase 9 0 - 31 U/L [facility] Total Protein 7.2 6.5 - 8.0 g/dL [facility] Albumin Level 3.9 3.5 - 5.0 g/dL [facility] Alkaline Phosphatase 49 39 - 117 U/L [facility] Blood Venous blood specimen / Unknown 05/14/2025 12:11 PM EDT 05/14/2025 1:12 PM EDT us Bárbara Raymundo MD LAB BLOOD ORDERABLES Final Result Performing Organization Address City/State/[facility] Co de Phone Number [facility] [address] [place] [phone] * (ABNORMAL) POCT HGB A1C (05/14/2025 11:44 AM EDT) [facility] Hemoglobin A1C 6.1(A) 4.0 - 5.7 % QC Media Lot # [id number] Lot# Expiration Date Blood 05/14/2025 11:4 4 AM EDT Result Owen Raymundo MD POINT OF CARE TEST EN TER/EDIT ORDERABLES Final Result * POCT Glucose (05/14/2025 11:43 AM EDT) Pathologist [facility] Glucose Blood, POC 133 60 - 200 mg/dL QC Media Lot # [id number] Lot# Expiration Date 316 Blood Capillary blood specimen / Unknown 05/14/2025 11:43 AM EDT us Bárbara Raymundo MD POINT OF CARE TEST EN TER/EDIT ORDERABLES Final Result * Hepatitis C Antibody with Reflex to HCV, RNA, Quantitative, Real-Time PCR (06/20/2024 2:54 PM EDT) Hepatitis C Antibody Nonreactive Nonreactive [facility] Comment:Antibodies to HCV no t detected; does not exclude early acuteHCV infection. Blood Venous blood specimen / Unknown 06/20/2024 2:54 PM EDT 06/20/2024 2:54 PM EDT us Carmine Patel MD LAB BLOOD ORDERABLES Final Result [facility] [address] [place] [address] [phone] from Last 3 Months or Most Recently Relevant to Health Maintenance Insurance [facility] [employer] (O D-SNP) ZUHAIR ROBLERO [id number] Care Teams Restaurant Line Server Relationship Specialty Start Date End Date Bárbara Rader MD [address] [place] [address] PCP - General Internal Medicine 07/16/24 Luke Gayle, JarettD Pharmacist Internal Medicine 09/04/22 [facility] 11/17/24
--- OUTSIDE RECORDS SUMMARY | 2025-07-27 11:28 | XMS_ITS | Encounter Summary ---
Author Organization [employer] Address 75 [facility] 7t [place] [address] Care Team Providers Care Hair Clipper Power Name Role Phone Luke Gayle PharmD Unavailable Unavail able Bárbara Rader MD Primary Care Provide r Reason for Visit * Reason Comments Med Refill Encounter Details Date Type Department Care Team ([facility] st Contact Info) Description 12/15/2024 Refill [facility] MEDICINE [address] [place] [address] Carmine Patel MD 505 [place] [address] Social History Tobacco Use Types Packs/Day Years [...] Description 08/11/2025 11:00 AM EST Office Visit [facility] MEDICINE [address] [place] [address] Bárbara Rader MD 230 [place] [address] 10/13/2025 1:30 PM EST Office Visit [facility] OPTOMETRY [address] [place] [address] Abigail James, OD 230 [place] [address] documented as of this encounter Goals Goal [...] documented as of this encounter Care Teams Hair Clipper Power Relationship Specialty Start Date End Date Bárbara Rader MD [address] [place] [address] PCP - General Internal Medicine 07/16/24 Luke Gayle, Shan Pharmacist Internal Medicine 09/04/22 [facility] 11/17/24 documented as of this encounter
--- OUTSIDE RECORDS SUMMARY | 2025-07-27 11:28 | XMS_ITS | Encounter Summary ---
Author Organization [employer] Address 75 [facility] 7t [place] [address] Care Team Providers Care Associate Programmer Name Role Phone Luke Gayle PharmD Unavailable Unavail able Bárbara Rader MD Primary Care Provide r Reason for Visit * Reason Onset Date Comments Med Refill 07/23/2025 Encounter Details Date Type Department Care Team ([facility] st Contact Info) Description 07/23/2025 Telephone [facility] MEDICINE 230 [place] [address] Bárbara Rader MD 230 [place], [place] [phone] Med Refill Social History Tobacco Use Types Packs/Day Years [...] encounter Miscellaneous Notes * Telephone Encounter - Kaylynn Tovar LPN - 07/23/2025 3:19 PM EST Medication was sent to [facility] on 05/14/25 with 2 refills. * Telephone Encounter - Mary Polo - 07/23/2025 3:16 PM EST TC from pt requesting medication refill. Medications needing refill : - Tirzepatide (Mounjaro) 2.5 MG/0.5ML solution auto-injector To be sent to: [facility] - [place], [place] - [address] [facility] [place] documented in this encounter Plan of Treatment Upcoming Encounters Date Type Department Care Team (Late st Contact Info) Description 08/11/2025 11:00 AM EST Office Visit [facility] MEDICINE 230 [place] [address] Bárbara Rader MD 230 [place] [address] 10/13/2025 1:30 PM EST Office Visit [facility] OPTOMETRY [address] [place], [place] [phone] Jacob, Abigail, OD 230 [place] [address] documented as of this encounter Goals Goal Patient Goal Type Associated Problems Recent Progress Patient-Stated? Author Blood Pressure < 140/90 Blood Pressure 124/70( 025 11:42 AM EDT) No Luek Gayle, PharmD documented as of this encounter Visit Diagnoses Not on filedocumented in this encounter Additional Health Concerns Assessment Noted Time PHQ-9 Depression Total Score: 0 05/14/20 25 11:46 AM EDT documented as of this encounter Care Teams Associate Programmer Relationship Specialty Start Date End Date Bárbara Rader MD 230 [place], [place] [phone] PCP - General Internal Medicine 07/16/24 Luke Gayle, PharmD Pharmacist Internal Medicine 09/04/22 [facility] [place] 11/17/24 documented as of this encounter
--- OUTSIDE RECORDS SUMMARY | 2025-07-27 11:28 | XMS_ITS | Encounter Summary ---
Author Organization [employer] Address 75 [facility] 7t [place] [address] Care Team Providers Care Hall Tender Name Role Phone Luke Gayle PharmD Unavailable Unavail able Bábrara Rader MD Primary Care Provide r Reason for Visit * Reason Comments Med Refill Encounter Details Date Type Department Care Team ([facility] st Contact Info) Description 12/15/2024 Refill [facility] MEDICINE [address] [place] [address] Bárbara Rader MD 230 [place] [address] Other hyperlipidemia Social History Tobacco Use Types [...] Description 08/11/2025 11:00 AM EST Office Visit [facility] MEDICINE [address] [place] [address] Bárbara Rader MD 230 [place] [address] 10/13/2025 1:30 PM EST Office Visit [facility] OPTOMETRY [address] [place] [address] Jacob, Abigail, OD 230 [place] [address] documented as of this encounter Goals Goal Patient Goal Type Associated Problems Recent Progress Patient-Stated? Author Blood Pressure < 140/90 Blood Pressure 124/70( 025 11:42 AM EDT) No Luke Gayle, Sahn documented as of this encounter Visit Diagnoses Diagnosis Other hyperlipidemia documented in this encounter Additional Health Concerns Assessment Noted Time PHQ-9 Depression Total Score: 0 07/16/20 24 10:22 AM EDT documented as of this encounter Care Teams Hall Tender Relationship Specialty Start Date End Date Bárbara Rader MD [address] [place] [address] PCP - General Internal Medicine 07/16/24 Luke Gayle PharmD Pharmacist Internal Medicine 09/04/22 [facility] [place] 11/17/24 documented as of this encounter
--- OUTSIDE RECORDS SUMMARY | 2025-07-27 11:28 | XMS_ITS | Encounter Summary ---
Author Organization [employer] Address 75 [facility] 7t [place] [address] Care Team Providers Care Show Worker Name Role Phone Luke Gayle PharmD Unavailable Unavail able Bárbara Rader MD Primary Care Provide r Reason for Visit * Reason Onset Date Comments Call Back Request 07/21/2025 Encounter Details Date Type Department Care Team ([facility] st Contact Info) Description 07/21/2025 Telephone [facility] MEDICINE 230 [place] [address] Bárbara Rader MD 230 [place], [place] [phone] Call Back Request Social History Tobacco Use [...] encounter Miscellaneous Notes * Telephone Encounter - Ayla Okeefe RN - 07/23/2025 10:40 AM EST TC placed to [facility] to discuss. [facility] reports they have had to write off 12 invoices for this patient as patient has not any follow up . States O2 was prescribed in December 2023 and requalification is required annually via walking test. Noted O2 prescription and previous testing completed by [facility] pulm. They state if pt. Has new O2 testing performed then pt. Can keep supplemental O2 in the home. Noted Bipap was also prescribed by pulm. [employer] states pt. Would need documentation stating Pt. Has been compliant with BiPAP and that it has been effective within 91 days of issuing machine, which would have been due in November. [employer] states they will be picking up BiPAP on Sunday and pt. Would need new sleep study to be requalified for a new machine. Pulm notes reviewed and pt. Last saw them in February, next appointment 08/27/25. Last note states followed for severe NICO on BiPAP therapy . After she got her new machine her respiratory/sleep apnea symptoms are well controlled. She continues to require supplemental oxygen, she is not able to perform 6 minute walk test secondary to inability to walk independently. Read this note to [employer] and they do not have it but states if they receive it then pt. Would be allset for BiPAP and supplemental O2. Note faxed to [phone]. Son informed. * Telephone Encounter - Shandra Araujo - 07/21/2025 1:13 PM EST Tc from pt son requesting a call back to discuss what can be done due to [facility] wanting to remove ptcpap machine and he says pt needs machine to sleep Contact pt son at [phone] (japanese) documented in this encounter Plan of Treatment Upcoming Encounters Date Type Department Care Team (Late st Contact Info) Description 08/11/2025 11:00 AM EST Office Visit [facility] MEDICINE [address] [place] [address] Bárbara Rader MD 230 [place] [address] 10/13/2025 1:30 PM EST Office Visit [facility] OPTOMETRY [address] [place] [address] Jacob, Abigail, OD 230 [place] [address] documented as of this encounter Goals Goal [...] documented as of this encounter Care Teams Show Worker Relationship Specialty Start Date End Date Bárbara Rader MD 230 [place] [address] PCP - General Internal Medicine 07/16/24 Luke Gayle, JarettD Pharmacist Internal Medicine 09/04/22 [facility] 11/17/24 documented as of this encounter
--- OUTSIDE RECORDS SUMMARY | 2025-07-27 11:28 | XMS_ITS | Encounter Summary ---
Author Organization [employer] Address 75 [facility] 7[address] [place] [address] Care Team Providers Care Wireless Operator Name Role Phone Carmine Patel MD Primary Care Provider +1- [phone] Luke Gayle PharmD Unavailable Unavail able Bárbara Rader MD Primary Care Provide r Encounter Details Date Type Department Care Team ([facility] Contact Info) Description 06/21/2023 Orders Only [facility] MED [facility] PEDS 505 [place], [place] [phone] Carmine Patel MD 505 [place], [place] [phone] Right hip pain (Primary Dx) Social History [...] Upcoming Encounters Date Type Department Care Team ([facility] Contact Info) Description 08/11/2025 11:00 AM EST Office Visit [facility] 230 [place], [place] [phone] Bárbara Rader MD 230 [place], [place] [phone] 10/13/2025 1:30 PM EST Office Visit [facility] OPTOMETRY [address] [place] [address] Jacob, Abigail, OD 230 [place], [place] [phone] documented as of this encounter Goals Goal [...] documented as of this encounter Care Teams Wireless Operator Relationship Specialty Start Date End Date Carmine Patel MD 505 [place] [address] PCP - General Internal Medicine 11/16/15 07/15/24 Bárbara Rader MD [address] [place], [place] [phone] PCP - General Internal Medicine 07/16/24 Luke Gayle, PharmD 505 [place] [address] Pharmacist Internal Medicine 09/04/22 [facility] 07/10/24 11/19/24 [facility] 11/17/24 documented as of this encounter
--- OUTSIDE RECORDS SUMMARY | 2025-07-27 11:28 | XMS_ITS | Encounter Summary ---
Author Organization [employer] [facility] Address 75 [facility] 7t [place] [address] Care Team Providers Care Beauty Consultant Name Role Phone Carmine Patel MD Primary Care Provider +1- [phone] Luke Gayle PharmD Unavailable Unavail able Bárbara Rader MD Primary Care Provide r Encounter Details Date Type Department Care Team (Latest Contact Info) Description 06/26/2019 Abstract [facility], Provider, DDS Social History Tobacco [...] 11:00 AM EST Office Visit [facility] 230 [place] [address] Bárbara Rader MD 230 [place] [address] 10/13/2025 1:30 PM EST Office Visit [facility] OPTOMETRY [address] [place] [address] Abigail James, OD 230 [place] [address] documented as of this encounter Visit Diagnoses Not on filedocumented in this encounter Care Teams Beauty Consultant Relationship Specialty Start Date End Date Carmine Patel MD 505 [place] [address] PCP - General Internal Medicine 11/16/15 07/15/24 Bárbara Rader MD [address] [place] [address] PCP - General Internal Medicine 07/16/24 Luke Gayle PharmD 505 [place] [address] Pharmacist Internal Medicine 09/04/22 [facility] 07/10/24 11/19/24 [facility] 11/17/24 documented as of this encounter
--- OUTSIDE RECORDS SUMMARY | 2025-07-27 11:28 | XMS_ITS | Encounter Summary ---
Author Organization [employer] Address 75 [facility] 7t [place] [address] Care Team Providers Care City Councilman Name Role Phone Carmine Patel MD Primary Care Provider +1- [phone] Luke Gayle PharmD Unavailable Unavail able Bárbara Rader MD Primary Care Provide r Encounter Details Date Type Department Care Team (Late st Contact Info) Description 06/26/2024 Orders Only [facility] CH[facility] MED & PEDS 505 [place], [place] [phone] Carmine Patel MD [address] [place], [place] [phone] Burning sensation (Primary Dx) Social History Tobacco [...] Description 08/11/2025 11:00 AM EST Office Visit [facility] MEDICINE 230 [place] [address] Bárbara Rader MD 230 [place] [address] 10/13/2025 1:30 PM EST Office Visit [facility] OPTOMETRY [address] [place] [address] Abigail James, OD 230 [place] [address] documented as of this encounter Goals Goal [...] documented as of this encounter Care Teams City Councilman Relationship Specialty Start Date End Date Carmine Patel MD [address] [place] [address] PCP - General Internal Medicine 11/16/15 07/15/24 Bárbara Rader MD [address] [place] [address] PCP - General Internal Medicine 07/16/24 Luke Gayle PharmD [address] [place] [address] Pharmacist Internal Medicine 09/04/22 [facility] 07/10/24 11/19/24 [facility] 11/17/24 documented as of this encounter
--- OUTSIDE RECORDS SUMMARY | 2025-07-27 11:28 | XMS_ITS | Encounter Summary ---
Author Organization [employer] Address 75 [facility] 7t [place] [address] Care Team Providers Care Building Construction Estimator Name Role Phone Luke Gayle PharmD Unavailable Unavail able Bárbara Rader MD Primary Care Provide r Reason for Visit * Reason Comments Med Refill Encounter Details Date Type Department Care Team ([facility] st Contact Info) Description 11/04/2024 Refill [facility] MEDICINE 230 [place] [address] Carmine Patel MD 505 [place] [address] Epigastric pain Social History Tobacco Use Types [...] Description 08/11/2025 11:00 AM EST Office Visit [facility] MEDICINE [address] [place] [address] Bárbara Rader MD 230 [place] [address] 10/13/2025 1:30 PM EST Office Visit [facility] OPTOMETRY [address] [place] [address] Jacob, Abigail, OD 230 [place] [address] documented as of this encounter Goals Goal [...] documented as of this encounter Care Teams Building Construction Estimator Relationship Specialty Start Date End Date Bárbara Rader MD [address] [place] [address] PCP - General Internal Medicine 07/16/24 Luke Gayle, Shan Pharmacist Internal Medicine 09/04/22 [facility] 07/10/24 11/19/24 [facility] 11/17/24 documented as of this encounter
--- OUTSIDE RECORDS SUMMARY | 2025-07-27 11:28 | XMS_ITS | Encounter Summary ---
Author Organization [employer] Address 75 [facility] 7t [place] [address] Care Team Providers Care Application Helper Name Role Phone Luke Gayle PharmD Unavailable Unavail able Bárbara Rader MD Primary Care Provide r Reason for Visit * Reason Onset Date Comments Durable Medical Equipment 09/03/2024 Encounter Details Date Type Department Care Team ([facility] st Contact Info) Description 09/03/2024 Telephone [facility] MEDICINE 230 [place] [address] Bárbara Rader MD 230 [place], [place] [phone] Durable Medical Equipment Social History Tobacco Use [...] 1:40 PM EST Tc from [facility] requesting a large commode. States the one pt has is to small. Anyfurther questions may contact phone # [phone]. documented in this encounter Plan of Treatment Upcoming Encounters Date Type Department Care Team ([facility] st Contact Info) Description 08/11/2025 11:00 AM EST Office Visit [facility] MEDICINE [address] [place] [address] Bárbara Rader MD 230 [place] [address] 10/13/2025 1:30 PM EST Office Visit [facility] OPTOMETRY [address] [place] [address] Abigail James, OD 230 [place] [address] documented as of this encounter Goals Goal [...] documented as of this encounter Care Teams Application Helper Relationship Specialty Start Date End Date Bárbara Rader MD [address] [place] [address] PCP - General Internal Medicine 07/16/24 Luke Gayle, PharmD Pharmacist Internal Medicine 09/04/22 [facility] 07/10/24 11/19/24 [facility] 11/17/24 documented as of this encounter
--- OUTSIDE RECORDS SUMMARY | 2025-07-27 11:29 | XMS_ITS | Encounter Summary ---
Author Organization [employer] Address 75 [facility] 7t [place] [address] Care Team Providers Care Singing Telegram Performer Name Role Phone Carmine Patel MD Primary Care Provider [phone]- [phone] Luke Gayle PharmD Unavailable Unavail able Bárbara Rader MD Primary Care Provide r Encounter Details Date Type Department Care Team (Late st Contact Info) Description 02/14/2024 Orders Only [facility] CHC MED & PEDS 505 [place], [place] [phone] Carmine Patel MD 505 [place], [place] [phone] Type 2 diabetes mellitus with other specified complication, without long-term current use of insulin ([facility]) (Primary Dx) Social History Tobacco Use Types [...] 11:00 AM EST Office Visit [facility] MEDICINE 230 [place] [address] Bárbara Rader MD 230 [place] [address] 10/13/2025 1:30 PM EST Office Visit [facility] OPTOMETRY [address] [place] [address] Jacob, Abigail, OD 230 [place] [address] documented as of this encounter Goals Goal [...] AM EDT Narrative 03/31/2024 9:51 AM EDT [address] [address] XRay Report Signed Patient: Magalie Solis MR#: [id number] : 1945 Acct:[id number] Age/Sex: 78 / F ADM Date: 03/13/24 Loc: HO.XRAY Attending Dr: Ofelia Ly NP Ordering Physician: Saleem Young PA-C Date of Service: 03/13/24 Procedure(s): XR ankle RT min 3V Accession Number(s): [id number] cc: Carmine Patel MD; Saleem Young PA-C [...] Worthy MD in OV> 03/31/2449 DD/ TD/TT: Electrician Powerhouse: Procedure Note Laura, Dara - 03/31/2024 [place] [address] XRay Report Signed Patient: Magalie Solis MMR#: [id number] : 6Acct:[id number] Age/Sex: 78 / FADM Date: 03/13/24 Loc: HO.EROSAY Attending Dr: Ofelia Ly NP Ordering Physician: Saleem Young PA-C Date of Service: 03/13/24 Procedure(s): XR ankle RT min 3V Accession Number(s): [id number] cc: Carmine Patel MD; Saleem Young PA-C [...] MD Signed By: <Electronically signed by Tierra oWrthy MD in OV> 03/31/2449 DD/ TD/TT: Electrician Powerhouse: [facility] External Provider IMG XR PROCEDURES Final Result * BI Mammogram Additional Views Right (03/12/2024 2:15 PM EDT) Anatomical Region Laterality Modality Breast Right Mammography 03/12/2024 2:15 PM EDT Narrative 03/12/2024 3:08 PM EDT [address] [place] [address] Mammography Report Signed Patient: Magalie Live MR#: [id number] : 1945 Acct:[id number] Age/Sex: 78 / F ADM Date: 03/12/24 Loc: MAMMO Attending Dr: Carmine Patel MD Ordering Physician: Carmine Patel MD Results: 2 Benign Findings Date of Service: 03/12/24 Follow Up: 1 Year From [facility] Mammogram Procedure(s): MM added views RT Accession Number(s): [id number] cc: Carmine Patel MD EXAMINATION: MM DIAGNOSTIC [...] in OV> 03/12/24 1504 DD/ 1415 TD/TT: Electrician Powerhouse: Procedure Note Donotuseinterpreter, Image - 03/12/2024 [facility] [address] [place], [place] [address] Mammography Report Signed Patient: Magalie Live MMR#: [id number] : 6Acct:[id number] Age/Sex: 78 / FADM Date: 03/12/24 Loc: SANDIO Attending Dr: Carmine Patel MD Ordering Physician: Carmine Patel MDResults: 2 Benign Findings Date of Service: 03/12/24Follow Up: 1 Year From Orig inal Mammogram Procedure(s): MM added views RT Accession Number(s): [id number] cc: Carmine Patel MD EXAMINATION: MM DIAGNOSTIC [...] in OV> 03/12/24 1504 DD/ 1415 TD/TT: Electrician Powerhouse: Carmine Patel MD IMG BI PROCEDURES Final Res ult documented in this encounter Visit Diagnoses Diagnosis Type 2 diabetes mellitus with other specified complication, without long-term current use of insulin (HCC)- Primary documented in this encounter Additional Health Concerns Assessment Noted Time PHQ-9 Depression Total Score: 0 10/09/19 23 11:12 AM EST documented as of this encounter Care Teams Singing Telegram Performer Relationship Specialty Start Date End Date Carmine Patel MD 505 [place] [address] PCP - General Internal Medicine 11/16/15 07/15/24 Bárbara Rader MD [address] [place] [address] PCP - General Internal Medicine 07/16/24 Luke Gayle PharmD 505 [place] [address] Pharmacist Internal Medicine 09/04/22 [facility] 07/10/24 11/19/24 [facility] 11/17/24 documented as of this encounter
--- OUTSIDE RECORDS SUMMARY | 2025-07-27 11:29 | XMS_ITS | Encounter Summary ---
Author Organization [employer] Address [address] [place] [address], [place] [address] Care Team Providers Care Cable Rigger Name Role Phone Carmine Patel MD Primary Care Provider [phone] Luke Gayle PharmD Unavailable Unavail able Bárbara Rader MD Primary Care Provide r Reason for Referral * Consultation (Routine) - Closed Specialty Diagnoses / Procedures Referred By Alden andres Referred To Contact Physical Therapy Diagnoses Acute right ankle pain Carmine Patel MD [address] [place] [address] Phone: tel: fax: [facility] [address] [place] [address] Phone: tel: fax: Referral ID Status Reason Start Date Expiration Date V isits Requested Visits Authorized [id number] Closed Specialty Services Required 03/28/2024 03/28/2025 1 1 Encounter Details Date Type Department Care Team (Late st Contact Info) Description 03/24/2024 Orders Only [facility] MED & PEDS 505 [place], [place] [phone] Carmine Patel MD [address] [place] [address] Acute right ankle pain (Primary Dx) Social [...] Description 08/11/2025 11:00 AM EST Office Visit [facility] MEDICINE 230 [place], [place] [phone] Bárbara Rader MD 230 [place], [place] [phone] 10/13/2025 1:30 PM EST Office Visit [facility] OPTOMETRY [address] [place], [place] [phone] Abigail James, OD 230 [place] [address] Scheduled Orders Name Type Priority Associated Diagnoses [...] Laterality Modality Lower Extremities, Knee Right [facility] 03/28/2024 11:5 1 AM EDT Narrative 03/28/2024 12:12 PM EDT [place] [address] XRay Report Signed Patient: Magalie Solis MR#: [id number] : 1945 Acct:[id number] Age/Sex: 78 / F ADM Date: 03/28/24 Loc: HO.ED Attending Dr: Ordering Physician: Elzbieta Franz Date of Service: 03/28/24 Procedure(s): XR knee RT 4V Accession Number(s): [id number] cc: Carmine Patel MD; Elzbieta Franz EXAMINATION: [...] in OV> 03/28/24 1208 DD/ 1151 TD/TT: Forest Nursery Worker: Procedure Note Donotuseinterpreter, Image - 03/28/2024 [place] [address] XRay Report Signed Patient: Magalie Solis MMR#: [id number] : 6Acct:[id number] Age/Sex: 78 / FADM Date: 03/28/24 Loc: HO.ED Attending Dr: Ordering Physician: Elzbieta Franz Date of Service: 03/28/24 Procedure(s): XR knee RT 4V Accession Number(s): [id number] cc: Carmine Patel MD; Elzbieta Franz EXAMINATION: [...] in OV> 03/28/24 1208 DD/ 1151 TD/TT: Forest Nursery Worker: [facility] External Provider IMG XR PROCEDURES Final Result documented in this encounter Visit Diagnoses Diagnosis Acute right ankle pain- Primary documented in this encounter Additional Health Concerns Assessment Noted Time PHQ-9 Depression Total Score: 0 10/09/19 23 11:12 AM EST documented as of this encounter Care Teams Cable Rigger Relationship Specialty Start Date End Date Carmine Patel MD [address] [place] [address] PCP - General Internal Medicine 11/16/15 07/15/24 Bárbara Rader MD [address] [place] [address] PCP - General Internal Medicine 07/16/24 Luke Gayle PharmD [address] [place] [address] Pharmacist Internal Medicine 09/04/22 [facility] [place] 07/10/24 11/19/24 [facility] [place] 11/17/24 documented as of this encounter
--- OUTSIDE RECORDS SUMMARY | 2025-07-27 11:29 | XMS_ITS | Encounter Summary ---
Author Organization [employer] Address [address] [facility] 7t [place] [address] Care Team Providers Care Saddle Tree Stitcher Name Role Phone Carmine Patel MD Primary Care Provider +1- [phone] Luke Gayle PharmD Unavailable Unavail able Bárbara Rader MD Primary Care Provide r Encounter Details Date Type Department Care Team (Late st Contact Info) Description 06/11/2024 Orders Only [facility] MED & PEDS [address] [place], [place] [phone] Carmine Patel MD [address] [place], [place] [phone] Pruritus (Primary Dx) Social History Tobacco Use [...] 11:00 AM EST Office Visit [facility] MEDICINE 230 [place] [address] Bárbara Rader MD 230 [place] [address] 10/13/2025 1:30 PM EST Office Visit [facility] OPTOMETRY [address] [place] [address] Abigail James, OD 230 [place] [address] documented as of this encounter Goals Goal [...] documented as of this encounter Care Teams Saddle Tree Stitcher Relationship Specialty Start Date End Date Carmine Patel MD [address] [place] [address] PCP - General Internal Medicine 11/16/15 07/15/24 Bárbara Rader MD [address] [place] [address] PCP - General Internal Medicine 07/16/24 Luke Gayle PharmD [address] [place] [address] Pharmacist Internal Medicine 09/04/22 [facility] 07/10/24 11/19/24 [facility] 11/17/24 documented as of this encounter
--- OUTSIDE RECORDS SUMMARY | 2025-07-27 11:29 | XMS_ITS | Clinical Summary ---
Author Organization [facility] Address [address] [place] [address] Phone Care Team Providers Care Vacuum Closing Machine Operator Name Role Phone Carmine Patel [...] every morning 04/04/2023 Active ergocalciferol 1.25 MG (56641 UT) capsule 50,000 Units 1 (one) time [...] patient's age to complete this topic [facility] ([id number]) ZUHAIR ROBLERO [id number] [facility] ([id number]) ZUHAIR ROBLERO [id number] Care Teams Vacuum Closing Machine Operator Relationship Specialty Start Date End Date Carmine Patel MD [address] [place], [place] [address]LA [address] PCP - General Internal Medicine 05/02/21
--- OUTSIDE RECORDS SUMMARY | 2025-07-27 11:29 | XMS_ITS | Encounter Summary ---
Author Organization [employer] Address [address] [facility] 7t [place] [address] Care Team Providers Care Print Shop Stenographer Name Role Phone Carmine Patel MD Primary Care Provider +1- [phone] Luke Gayle PharmD Unavailable Unavail able Bárbara Rader MD Primary Care Provide r Encounter Details Date Type Department Care Team (Late st Contact Info) Description 01/18/2024 Orders Only [facility] CH[facility] MED & PEDS [address] [place], [place] [phone] Carmine Patel MD [address] [place], [place] [phone] Urinary incontinence, unspecified type (Primary Dx) Social [...] Description 08/11/2025 11:00 AM EST Office Visit [facility] MEDICINE [address] [place] [address] Bárbara Rader MD 230 [place] [address] 10/13/2025 1:30 PM EST Office Visit [facility] OPTOMETRY [address] [place] [address] Abigail James, SULAIMAN 230 [place] [address] documented as of this encounter Goals Goal [...] (06/20/2024 1:00 PM EDT) Color Urine Yellow [facility] Appearance Urine Cloudy [facility] PH 6.5 5.0 - 9.0 [facility] Glucose Urine UA Negative Negative mg/dL [facility] Urine Blood Trace(A) Negative [facility] Specific [place] - Urine 1.010 1.005 - 1.025 [facility] Urine Protein Negative Neg-Trace mg/dL [facility] Urine Ketones Negative Negative mg/dL [facility] Nitrite Urine Negative Negative [facility] Leukocyte Esterase Urine Large (3+)(A) Negative [facility] RBC Urine 0-2 0 - 2 /HPF [facility] Urine WBC >50(A) 0 - 5 /HPF [facility] Urine Squamous Epithelial Cell 0-2 0 - 2 /HPF [facility] Urine Bacteria 4+ None Seen [facility] Hyaline Casts, Urine 0-2 0 - 2 /LPF [facility] Urine 06/20/2024 1:00 PM EDT 06/20/2024 3:09 PM EDT Narrative [facility] - 06/20/2024 3:25 PM EDT Urine, Clean Catch us Carmine Patel MD LAB URINE ORDERABLES Final Result [facility] [address] [place] [address] [phone] documented in this encounter Visit Diagnoses Diagnosis Urinary incontinence, unspecified type- Primary documented in this encounter Additional Health Concerns Assessment Noted Time PHQ-9 Depression Total Score: 0 10/09/19 23 11:12 AM EST documented as of this encounter Care Teams Print Shop Stenographer Relationship Specialty Start Date End Date Carmine Patel MD [address] [place] [address] PCP - General Internal Medicine 11/16/15 07/15/24 Bárbara Rader MD [address] [place] [address] PCP - General Internal Medicine 07/16/24 Luke Gayle PharmD [address] [place] [address] Pharmacist Internal Medicine 09/04/22 [facility] 07/10/24 11/19/24 [facility] 11/17/24 documented as of this encounter
--- OUTSIDE RECORDS SUMMARY | 2025-07-27 11:29 | XMS_ITS | Encounter Summary ---
Author Organization [employer] Address [address] [facility] [address] [place] [address] Care Team Providers Care Oracle Business Analyst Name Role Phone Carmine Patel MD Primary Care Provider +1 [phone] Luke Gayle PharmD Unavailable Unavail able Bárbara Rader MD Primary Care Provide r Reason for Visit * Reason Onset Date Comments FYI 02/15/2024 Encounter Details Date Type Department Care Team ([facility] st Contact Info) Description 02/15/2024 Telephone [facility] MED [facility] PEDS [address] [place], [place] [phone] Carmine Patel MD [address] [place], [place] [phone] FYI Social History Tobacco Use Types Packs/Day [...] - 02/15/2024 3:07 PM EDT Tc from [facility] with Tiffany calling to report pt has been discharged as of today from home PT. documented in this encounter Plan of Treatment Upcoming Encounters Date Type Department Care Team (Late st Contact Info) Description 08/11/2025 11:00 AM EST Office Visit [facility] MEDICINE [address] [place] [address] Bárbara Rader MD [address] [place] [address] 10/13/2025 1:30 PM EST Office Visit [facility] OPTOMETRY [address] [place] [address] Abigail James, OD [address] [place] [address] documented as of this encounter Goals Goal [...] documented as of this encounter Care Teams Oracle Business Analyst Relationship Specialty Start Date End Date Carmine Patel MD [address] [place] [address] PCP - General Internal Medicine 11/16/15 07/15/24 Bárbara Rader MD [address] [place] [address] PCP - General Internal Medicine 07/16/24 Luke Gayle PharmD [address] [place] [address] Pharmacist Internal Medicine 09/04/22 [facility] 07/10/24 11/19/24 [facility] 11/17/24 documented as of this encounter
--- OUTSIDE RECORDS SUMMARY | 2025-07-27 11:29 | XMS_ITS | Encounter Summary ---
Author Organization [employer] Address [address] [facility] 7t [place] [address] Care Team Providers Care Biofuels Plant Construction Worker Name Role Phone Carmine Patel MD Primary Care Provider +1- [phone] Luke Gayle PharmD Unavailable Unavail able Bárbara Rader MD Primary Care Provide r Reason for Visit * Reason Onset Date Comments FYI 05/07/2024 Encounter Details Date Type Department Care Team (Late st Contact Info) Description 05/07/2024 Telephone [facility] MEDICINE [address] [place] [address] Carmine Patel MD 505 [place] [address] FYI Social History Tobacco Use Types Packs/Day [...] any questions you can contact Terence at [phone]. documented in this encounter Plan of Treatment Upcoming Encounters Date Type Department Care Team (Late st Contact Info) Description 08/11/2025 11:00 AM EST Office Visit [facility] MEDICINE [address] [place] [address] Bárbara Rader MD 230 [place] [address] 10/13/2025 1:30 PM EST Office Visit [facility] OPTOMETRY [address] [place] [address] Abigail James, OD [address] [place] [address] documented as of this encounter Goals Goal [...] documented as of this encounter Care Teams Biofuels Plant Construction Worker Relationship Specialty Start Date End Date Carmine Patel MD 505 [place] [address] PCP - General Internal Medicine 11/16/15 07/15/24 Bárbara Rader MD 230 [place] [address] PCP - General Internal Medicine 07/16/24 Luke Gayle, PharmD 505 [place] [address] Pharmacist Internal Medicine 09/04/22 [facility] 07/10/24 11/19/24 [facility] 11/17/24 documented as of this encounter
--- OUTSIDE RECORDS SUMMARY | 2025-07-27 11:29 | XMS_ITS | Encounter Summary ---
Author Organization [employer] Address [address] [facility] 7[address] [place] [address] Care Team Providers Care Spot Welder Line Name Role Phone Carmine Patel MD Primary Care Provider +1- [phone] Luke Gayle PharmD Unavailable Unavail able Bárbara Rader MD Primary Care Provide r Reason for Visit * Reason Onset Date Comments Call Back Request 02/06/2024 Encounter Details Date Type Department Care Team (Late st Contact Info) Description 02/06/2024 Telephone [facility] 230 [place] [address] Carmine Patel MD [address] [place] [address] Call Back Request Social History Tobacco Use [...] to see 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 Advised son on PCP recommendations for [...] and nothing is happening Please contact at [phone] documented in this encounter Plan of Treatment Upcoming Encounters Date Type Department Care Team (Late st Contact Info) Description 08/11/2025 11:00 AM EST Office Visit [facility] MED[facility] [address] [place] [address] Bárbara Rader MD 230 [place] [address] 10/13/2025 1:30 PM EST Office Visit [facility] OPTOMETRY [address] [place], [place] [phone] Abigail James, OD [address] [place] [address] documented as of this encounter Goals Goal [...] documented as of this encounter Care Teams Spot Welder Line Relationship Specialty Start Date End Date Carmine Patel MD [address] [place] [address] PCP - General Internal Medicine 11/16/15 07/15/24 Bárbara Rader MD [address] [place], [place] [phone] PCP - General Internal Medicine 07/16/24 Luke Gayle, PharmD [address] [place] [address] Pharmacist Internal Medicine 09/04/22 [facility] 07/10/24 11/19/24 [facility] 11/17/24 documented as of this encounter
--- OUTSIDE RECORDS SUMMARY | 2025-07-27 11:29 | XMS_ITS | Encounter Summary ---
Author Organization [employer] Address [address] [facility] 7t [place] [address] Care Team Providers Care Crts Name Role Phone Luke Gayle PharmD Unavailable Unavail able Bárbara Rader MD Primary Care Provide r Reason for Visit * Reason Onset Date Comments Appointment Request 09/15/2024 Encounter Details Date Type Department Care Team ([facility] st Contact Info) Description 09/15/2024 Telephone [facility] MEDICINE [address] [place] [address] Bárbara Rader MD [address] [place], [place] [phone] Appointment Request Social History Tobacco Use Types [...] 08/11/2025 11:00 AM EST Office Visit [facility] MEDICINE [address] [place] [address] Bárbara Rader MD [address] [place] [address] 10/13/2025 1:30 PM EST Office Visit [facility] OPTOMETRY [address] [place], [place] [phone] Abigail James, OD [address] [place] [address] documented as of this encounter Goals Goal [...] documented as of this encounter Care Teams Crts Relationship Specialty Start Date End Date Bárbara Rader MD [address] [place] [address] PCP - General Internal Medicine 07/16/24 Luke Gayle, PharmD Pharmacist Internal Medicine 09/04/22 [facility] 07/10/24 11/19/24 [facility] 11/17/24 documented as of this encounter
== END 2025-07-27 10:50 | disposition home or self-care (01) ==
LOC: HO.HPODS 09:58
PROVIDERS: PCP Internal Medicine; Visit Provider Student in an Organized Health Care Education/Training Program
DX: M21.961 Unspecified acquired deformity of right lower leg (principal); M19.071 Primary osteoarthritis, right ankle and foot
CPT/HCPCS: 99204

== ENCOUNTER → 2025-07-27 09:58 | Outpatient (BNVA) | payer OTHER, SELFPAY | PROVIDERS: PCP Internal Medicine; Visit Provider Student in an Organized Health Care Education/Training Program | DX: M21.961 Unspecified acquired deformity of right lower leg (principal); M19.071 Primary osteoarthritis, right ankle and foot | CPT/HCPCS: 99202 ==

== ENCOUNTER 2025-08-10 10:11 | Outpatient (REF) | payer OTHER, SELFPAY ==
[2025-08-10 11:22] LABS: Appearance Urine Turbid; Glucose Urine UA Negative (Negative); PH 5.5 (5.0-9.0); Specific Gravity - Urine 1.010 (1.005-1.025); UMIC TRIGGER UACC YES
[2025-08-10 11:37] LABS: UACC Culture Trigger YES
--- OUTSIDE RECORDS SUMMARY | 2025-08-10 12:23 | XMS_ITS | Encounter Summary ---
Author Organization [employer] Address [address] [facility] 7t [place] [address] Care Team Providers Care Fire Captain Name Role Phone Luke Gayle PharmD Unavailable Unavail able Bárbara Rader MD Primary Care Provide r Reason for Visit * Reason Onset Date Comments Durable Medical Equipment 09/03/2024 Encounter Details Date Type Department Care Team ([facility] st Contact Info) Description 09/03/2024 Telephone [facility] MEDICINE [address] [place] [address] Bárbara Rader MD [address] [place], [place] [phone] Durable Medical Equipment Social History Tobacco Use [...] 09/03/2024 1:40 PM EST Tc from [facility] requesting a large commode. States the one pt has is to small. Anyfurther questions may contact phone # [phone]. documented in this encounter Plan of Treatment Upcoming Encounters Date Type Department Care Team ([facility] st Contact Info) Description 08/11/2025 11:00 AM EST Office Visit [facility] MEDICINE [address] [place] [address] Bárbara Rader MD [address] [place] [address] 10/13/2025 1:30 PM EST Office Visit [facility] OPTOMETRY [address] [place] [address] Abigail James, OD [address] [place] [address] documented as of this encounter Goals Goal [...] as of this encounter Care Teams Fire Captain Relationship Specialty Start Date End Date Bárbara Rader MD [address] [place] [address] PCP - General Internal Medicine 07/16/24 Luke Gayle, PharmD Pharmacist Internal Medicine 09/04/22 [facility] 07/10/24 11/19/24 [facility] 11/17/24 documented as of this encounter
--- OUTSIDE RECORDS SUMMARY | 2025-08-10 12:23 | XMS_ITS | Encounter Summary ---
Author Organization [employer] Address [address] [facility] 7t [place] [address] Care Team Providers Care Boilermaker Welder Name Role Phone Luke Gayle PharmD Unavailable Unavail able Bárbara Rader MD Primary Care Provide r Reason for Visit * Reason Onset Date Comments Med Refill 07/23/2025 Encounter Details Date Type Department Care Team ([facility] st Contact Info) Description 07/23/2025 Telephone [facility] MEDICINE [address] [place] [address] Bárbara Rader MD [address] [place], [place] [phone] Med Refill Social History Tobacco Use Types [...] 3:19 PM EST Medication was sent to [facility] on 05/14/25 with 2 refills. * Telephone Encounter - Mary Polo - 07/23/2025 3:16 PM EST TC from pt requesting medication refill. Medications needing refill : - Tirzepatide (Mounjaro) 2.5 MG/0.5ML solution auto-injector To be sent to: [facility] - [place], [place] - [address] [facility] [place] documented in this encounter Plan of Treatment Upcoming Encounters Date Type Department Care Team (Late st Contact Info) Description 08/11/2025 11:00 AM EST Office Visit [facility] MEDICINE [address] [place] [address] Bárbara Rader MD [address] [place] [address] 10/13/2025 1:30 PM EST Office Visit [facility] OPTOMETRY [address] [place], [place] [phone] Jacob, Abigail, OD [address] [place] [address] documented as of this encounter Goals Goal [...] documented as of this encounter Care Teams Boilermaker Welder Relationship Specialty Start Date End Date Bárbara Rader MD [address] [place], [place] [phone] PCP - General Internal Medicine 07/16/24 Luke Gayle, PharmD Pharmacist Internal Medicine 09/04/22 [facility] 11/17/24 documented as of this encounter
--- OUTSIDE RECORDS SUMMARY | 2025-08-10 12:23 | XMS_ITS | Clinical Summary ---
Author Organization [employer] Address [address] [facility] 7t [place] [address] Care Team Providers Care Area Manager Name Role Phone Luke Gayle PharmD [...] 30 tablet 11 024 Active Continuous Glucose Foundry Equipment Mechanic (FreeStyle Silvana 2 [place]) deviceIndications :Type 2 diabetes mellitus with other specified complication, without long-term current use of insulin ([facility]) Scan sensor every 8 hours 1 each 024 Active Continuous Glucose Sensor (FreeStyle Silvana 2 Sensor) miscIndications:T ype 2 diabetes mellitus with other specified complication, without long-term current use of insulin ([facility]) Apply 1 sensor every 14 days 2 each 11 024 Active Blood Glucose Monitoring Suppl (FreeStyle Stan[place] Lite) w/Device kitIndications:Ty pe 2 diabetes mellitus with other specified complication, without long-term current use of insulin ([facility]) Use to test blood sugar 2 times daily 1 kit 024 Active ergocalciferol (Vitamin D2) 1.25 MG (22781 UT) capsule TAKE ONE CAPSULE EVERY WEEK [...] complication, without long-term current use of insulin ([facility]) Inject 2.5 mg under the skin [...] complication, without long-term current use of insulin ([facility]) INJECT 5 UNITS SUBCUTANEOUSLY THREE TIMES DAILY WITH BREAKFAST, WITH LUNCH, AND WITH DINNER 15 mL 8 025 Active furosemide (Lasix) 40 MG tabletIndications :Stage 3a chronic kidney disease (CMS/HCC) ([facility]) TAKE 1 TABLET BY MOUTH EVERY MORNING 90 tablet 1 025 Active Lantus SoloStar 100 UNIT/ML penIndications:Ty pe 2 diabetes mellitus with other specified complication, without long-term current use of insulin ([facility]) INJECT 20 UNITS SUBCUTANEOUSLY AT BEDTIME 15 mL 3 025 Active insulin glargine (Lantus SoloStar) 100 UNIT/ML penIndications:Ty pe 2 diabetes mellitus with other specified complication, without long-term current use of insulin ([facility]) Inject 20 Units under the skin [...] for therapy UTI symptoms 08/05/2024 Chronic bronchitis ([facility]/HCC) 07/16/2024 Assessment & Plan (07/16/2024 12:43 PM [...] percocet offered. 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 pharmacy (new medication [...] Encounters Date Type Department Care Team Description 08/10/2025 Orders Only [address] [address] Bárbara Rader MD 08/03/2025 Patient Outreach [address] [address] Bárbara Rader MD Pre-visit Planning (SDOH screening completed on 02/20/2025) 07/23/[address] [address] Bárbara Rader MD Med Refill 07/23/[address] [address] Carmine Patel MD Type 2 diabetes mellitus with other specified complication, without long-term current use of insulin (HCC) 07/21/[address] [address] Bárbara Rader MD Call Back Request 06/09/[address] [address] Bárbara Rader MD 06/08/[address] [address] Bárbara Rader MD Durable Medical Equipment (DME Request: Power Recliner) 06/08/2025 Refill [facility] [address] [place] [phone] Carmine Patel MD Type 2 diabetes mellitus with other specified complication, without long-term current use of insulin ([facility]); Stage 3a chronic kidney disease ([facility]) 06/08/[address] [address] Bárbara Rader MD Stage 3a chronic kidney disease ([facility]) 06/05/2025 Results Follow-Up [address] [address] Bárbara Rader MD Urinalysis, Complete, with Reflex to Culture 06/05/2025 Orders Only [address] [address] Bárbara Rader MD Recurrent UTI (Primary Dx) 06/05/2025 Orders Only [address] [address] Bárbara Rader MD 05/14/2025 11:30 AM EDT Office Visit [address] [address] Bárbara Rader MD Recurrent UTI (Primary Dx); Type 2 diabetes mellitus with other specified complication, without long-term current use of insulin ([facility]); Chronic pain of right ankle 05/14/[address] [address] Bárbara Rader MD Durable Medical Equipment (DME RX Bariatric Commode(CCA)) 05/14/2025 Travel 05/13/[address] [address] Bárbara Rader MD chart prep from Last 3 Months Immunizations Immunization Administration Dates Next Due Influenza High-dose Quadriva lent Preservative Free 06/18/2023,06/09/2022,07/07/2021 Influenza injectable quadriv alent IIV4 with preservative 07/27/2016 Influenza, High Dose Seasona l, Preservative Free 06/03/2024,07/16/2019,07/31/2018,06/06 Influenza, IIV3, injectable 07/27/2014, 3,07/05/2011 Influenza, Split (incl. efren fied surface antigen) 07/19/2012 Influenza, intradermal, quad rivalent, preservative free 05/15/2016 Influenza, seasonal, injecta ble, preservative free 05/28/2020 Novel [id number], all formulations 05/15/2016 Pneumococcal Conjugate PCV 13 [...] Description 08/11/2025 11:00 AM EST Office Visit [facility] [address], [place] [phone] Bárbara Rader MD [address] [place], [place] [phone] 10/13/2025 1:30 PM EST Office Visit [facility] [address] [place] [address] Abigail James, OD [address] [place] [address] Health Maintenance Due Date Last Done Comments [...] 11:42 AM EDT) No Luke Gayle, PharmD Help patients manage their type 2 diabetes Care Plan Help patients manage their type 2 diabetes Cornelia Demarco Weekly blood pressure task Care Plan Weekly blood pressure task Cornelia Demarco Help patients manage their type 2 diabetes Care Plan Help patients manage their type 2 diabetes No Cornelia Lin Patient has chronic kidney disease Care Plan Patient has chronic kidney disease Cornelia Demarco Weekly blood pressure task Care Plan Weekly blood pressure task No Cornelia Lin Patient has chronic kidney disease Care Plan Patient has chronic kidney disease Cornelia Demarco Procedures Procedure Name Priority Date/Time Associated Diagnosis Comments URINALYSIS, COMPLETE, WITH REFLEX TO CULTURE Routine 08/10/2025 10:20 AM EST URINALYSIS, COMPLETE, WITH REFLEX TO CULTURE Routine 06/05/2025 12:00 AM EDT ALBUMIN, RANDOM URINE W/CREATININE Routine 06/05/2025 12:00 AM EDT Type 2 diabetes mellitus with other specified complication, without long-term current use of insulin ([facility]) CULTURE, URINE, ROUTINE Routine 06/05/2025 12:00 AM EDT Recurrent UTI COMPREHENSIVE METABOLIC PANEL Routine 05/14/2025 12:11 PM EDT Type 2 diabetes mellitus with other specified complication, without long-term current use of insulin ([facility]) LIPID PANEL, STANDARD Routine 05/14/2025 12:11 PM EDT Type 2 diabetes mellitus with other specified complication, without long-term current use of insulin ([facility]) POCT GLYCATED HEMOGLOBIN, TOTAL Routine 05/14/2025 11:44 AM EDT Type 2 diabetes mellitus with other specified complication, without long-term current use of insulin ([facility]/HCC) POCT GLUCOSE Routine 05/14/2025 11:43 AM EDT Type 2 diabetes mellitus with other specified complication, without long-term current use of insulin (CMS/HCC) HEPATITIS C AB W/REFL TO HCV RNA, QN, PCR Routine 06/20/2024 2:54 PM EDT Type 2 diabetes mellitus with other specified complication, without long-term current use of insulin ([facility]/HCC) from Last 3 Months or Most Recently Relevant to Health Maintenance Results * (ABNORMAL) Urinalysis, Complete, with Reflex to Culture (08/10/2025 10:20 AM EST) Only the most recent of2 resultswithin the time period is included. Color Urine Yellow [facility] Appearance Urine Turbid [facility] PH 5.5 5.0 - 9.0 [facility] Glucose Urine UA Negative Negative mg/dL [facility] Urine Blood Small (1+)(A) Negative [facility] Specific [place] - Urine 1.010 1.005 - 1.025 [facility] Urine Protein 30 (1+)(A) Neg-Trace mg/dL [facility] Urine Ketones Negative Negative mg/dL [facility] Nitrite Urine Negative Negative [facility] Leukocyte Esterase Urine Large (3+)(A) Negative [facility] RBC Urine 0-2 0 - 2 /HPF [facility] Urine WBC >50 0 - 5 /HPF [facility] Urine Squamous Epithelial Cell 6-10 0 - 2 /HPF [facility] Urine Bacteria 3+ None Seen [facility] Hyaline Casts, Urine 0-2 0 - 2 /LPF [facility] 08/10/2025 10:2 0 AM EST 08/10/2025 11:04 AM EST Narrative [facility] - 08/10/2025 11:38 AM EST Urine, Clean Catch us Bárbara Raymundo MD LAB URINE ORDERABLES Final Result Performing Organization Address [facility] Co de Phone Number [facility] [address] [place] [phone] * (ABNORMAL) Albumin, Random Urine W/Creatinine (06/05/2025 12:00 AM EDT) Creatinine, Urine 42.22 mg/dL [facility] Microalbumin Urine 14.0 mg/L [facility] Microalbum Creatinine Ratio Ur 33.1(H) <30 ug/mg cr [facility] Comment:Albumin/Creatinine R atio Reference Ranges: Normal: < 30 ug/mg creatinine Microalbuminuria: 30 - 300 ug/mg creatinineClinical Albuminuria: > 300 ug/mg creatinine Urine (Urine, Random) 06/05/2025 06/05/2025 us Bárbara Raymundo MD LAB URINE ORDERABLES Final Result Performing Organization Address [facility]/ZIP Co de Phone Number [facility] [address] [place] [phone] * Culture, Urine, Routine (06/05/2025 12:00 AM EDT) Urine Urine specimen obtained by clean catch procedure / Unknown 06/05/2025 06/05/2025 Comment:[facility] Narrative [facility] - 06/07/2025 7:17 AM EDT [...] NERAL ORDERABLES Final Result Performing Organization Address City/[facility]/ZIP Co de Phone Number [facility] [address] [place] [address] [phone] * Lipid Panel, Standard (05/14/2025 12:11 PM EDT) Triglycerides 131 <150 mg/dL [facility] Comment:Desirable Triglyceri de: less than 150 mg/dLBorderline High Triglyceride 150-199 mg/dLHigh Triglyceride: 200-499 mg/dLVery High Triglyceride: greater than or equal to 5OO mg/dL Cholesterol 139 <200 mg/dL [facility] Comment:Desirable Cholestero l: less than 200 mg/dLBorderline High Cholesterol: 200-239 mg/dLHigh Cholesterol: greater than 239 mg/dL LDL Cholesterol Calculated 63 <100 mg/dL [facility] Comment:Desirable LDL: less than 100 mg/dLNear Optimal/Above Optimal LDL: 110- 129 mg/dLBorderline High LDL: 130-159 mg/dLHigh LDL: 160-189 mg/dLVery High LDL: greater than or equal to 190 mg/dL HDL Cholesterol 50 >40 mg/dL [facility] Comment:Desirable HDL: great er than 40 mg/dL Note: This HDL assay may give artificially low results in patients with liver disease. Blood Venous blood specimen / Unknown 05/14/2025 12:11 PM EDT 05/14/2025 1:12 PM EDT us Bárbara Raymundo MD LAB BLOOD ORDERABLES Final Result Performing Organization Address City/[facility]/ZIP Co de Phone Number [facility] [address] [place] [address] [phone] * (ABNORMAL) Comprehensive Metabolic Panel (05/14/2025 12:11 PM EDT) Sodium 139 135 - 145 mmol/L [facility] Potassium 4.1 3.3 - 5.1 mmol/L [facility] Comment:Slight Hemolysis.Int erpret result with caution. Chloride 96 96 - 108 mmol/L [facility] Carbon Dioxide 35(H) 22 - 29 mmol/L [facility] Anion Gap 12 12 - 20 [facility] Urea Nitrogen (BUN) 12 9 - 16 mg/dL [facility] Creatinine, Serum 0.59 0.5 - 1.4 mg/dL [facility] Estimated Glomerular Filt Rate >60 [facility] Comment:Chronic Kidney Disea se: Estimated GFR < 60 mL/min/[id number] Kidney Disease: Estimated GFR < 15 mL/min/1.73m2 Glucose 98 60 - 115 mg/dL [facility] Calcium 8.8 8.4 - 10.2 mg/dL [facility] Bilirubin, Total 0.2 0.0 - 1.0 mg/dL [facility] Aspartate Amino Transferase 36(H) 5 - 31 U/L [facility] Comment:Slight Hemolysis.Int erpret result with caution. Alanine Aminotransferase 9 0 - 31 U/L [facility] Total Protein 7.2 6.5 - 8.0 g/dL [facility] Albumin Level 3.9 3.5 - 5.0 g/dL [facility] Alkaline Phosphatase 49 39 - 117 U/L [facility] Blood Venous blood specimen / Unknown 05/14/2025 12:11 PM EDT 05/14/2025 1:12 PM EDT us Bárbara Raymundo MD LAB BLOOD ORDERABLES Final Result [facility] [address] [place] [phone] * (ABNORMAL) POCT HGB A1C (05/14/2025 11:44 AM EDT) Hemoglobin A1C 6.1(A) 4.0 - 5.7 % QC Media Lot # [id number] Lot# Expiration Date Blood 05/14/2025 11:4 4 AM EDT us Bárbara Raymundo MD POINT OF CARE TEST EN TER/EDIT ORDERABLES Final Result * POCT Glucose (05/14/2025 11:43 AM EDT) Glucose Blood, POC 133 60 - 200 mg/dL QC Media Lot # [id number] Lot# Expiration Date 806, Blood Capillary blood specimen / Unknown 05/14/2025 11:43 AM EDT us Bárbara Raymundo MD POINT OF CARE TEST EN TER/EDIT ORDERABLES Final Result * Hepatitis C Antibody with Reflex to HCV, RNA, Quantitative, Real-Time PCR (06/20/2024 2:54 PM EDT) [facility] Hepatitis C Antibody Nonreactive Nonreactive [facility] Comment:Antibodies to HCV no t detected; does not exclude early acuteHCV infection. Blood Venous blood specimen / Unknown 06/20/2024 2:54 PM EDT 06/20/2024 2:54 PM EDT us Carmine Patel MD LAB BLOOD ORDERABLES Final Result [facility] [address] [place] [phone] [phone] from Last 3 Months or Most Recently Relevant to Health Maintenance Additional Health Concerns Active Problems Noted Date Diagnosed Date Help patients manage their type 2 diabetes 08/03 Weekly blood pressure task 08/03/2025 Help patients manage their type 2 diabetes 08/03 Patient has chronic kidney disease 08/03/2025 Weekly blood pressure task 08/03/2025 Patient has chronic kidney disease 08/03/2025 Insurance [facility] [employer]P OPTIONS (HMO D-SNP) ZUHAIR ROBLERO [id number] Care Teams Area Manager Relationship Specialty Start Date End Date Bárbara Rader MD [address] [place] [phone] PCP - General Internal Medicine 07/16/24 Luke Gayle PharmD Pharmacist Internal Medicine 09/04/22 [facility] 11/17/24
--- OUTSIDE RECORDS SUMMARY | 2025-08-10 12:23 | XMS_ITS | Encounter Summary ---
Author Organization [employer] Address [address] [facility] 7t [place] [address] Care Team Providers Care Microsoft Application Developer Name Role Phone Luke Gayle PharmD Unavailable Unavail able Bárbara Rader MD Primary Care Provide r Reason for Visit * Reason Comments Med Refill Encounter Details Date Type Department Care Team ([facility] st Contact Info) Description 12/15/2024 Refill [facility] [address] [place] [address] Bárbara Rader MD [address] [place] [address] Other hyperlipidemia Social History Tobacco Use Types [...] 11:00 AM EST Office Visit [facility] [address] [place] [address] Bárbara Rader MD [address] [place] [address] 10/13/2025 1:30 PM EST Office Visit [facility] OPT[facility]ET[facility] [address] [place] [address] Jacob, Abigail, OD [address] [place] [address] documented as of this encounter Goals Goal [...] documented as of this encounter Care Teams Microsoft Application Developer Relationship Specialty Start Date End Date Bárbara Rader MD [address] [place] [phone] PCP - General Internal Medicine 07/16/24 Luke Gayle PharmD Pharmacist Internal Medicine 09/04/22 [facility] 11/17/24 documented as of this encounter
--- OUTSIDE RECORDS SUMMARY | 2025-08-10 12:23 | XMS_ITS | Encounter Summary ---
Author Organization [employer] Address [address] [facility] 7t [place] [address] Care Team Providers Care Transaction Manager Name Role Phone Carmine Patel MD Primary Care Provider [phone] Luke Gayle PharmD Unavailable Unavail able Bárbara Rader MD Primary Care Provide r Encounter Details Date Type Department Care Team (Late st Contact Info) Description 06/26/2024 Orders Only [facility] [address] [place], [place] [phone] Carmine Patel MD [address] [place], [place] [phone] Burning sensation (Primary Dx) Social History Tobacco [...] Description 08/11/2025 11:00 AM EST Office Visit [facility] [address] [place] [address] Bárbara Rader MD [address] [place] [address] 10/13/2025 1:30 PM EST Office Visit [facility] [address] [place] [address] Abigail James, OD [address] [place] [address] documented as of this encounter Goals Goal [...] documented as of this encounter Care Teams Transaction Manager Relationship Specialty Start Date End Date Carmine Patel MD [address] [place] [address] PCP - General Internal Medicine 11/16/15 07/15/24 Bárbara Rader MD [address] [place] [address] PCP - General Internal Medicine 07/16/24 Luke Gayle PharmD [address] [place] [phone] Pharmacist Internal Medicine 09/04/22 [facility] 07/10/24 11/19/24 [facility] 11/17/24 documented as of this encounter
--- OUTSIDE RECORDS SUMMARY | 2025-08-10 12:23 | XMS_ITS | Encounter Summary ---
Author Organization [employer] Address 75 [facility] 7t [place] [address] Care Team Providers Care Test Cell Technician Name Role Phone Luke Gayle PharmD Unavailable Unavail able Bárbara Rader MD Primary Care Provide r Reason for Visit * Reason Comments Med Refill Encounter Details Date Type Department Care Team ([facility] st Contact Info) Description 12/15/2024 Refill [facility] [address] [place] [address] Carmine Patel MD [address] [place] [address] Social History Tobacco Use Types Packs/Day Years [...] Office Visit [facility] [address] [place] [address] Bárbara Rader MD [address] [place] [address] 10/13/2025 1:30 PM EST Office Visit [facility] [address] [place] [address] Abigail James, OD [address] [place] [address] documented as of this encounter Goals Goal [...] documented as of this encounter Care Teams Test Cell Technician Relationship Specialty Start Date End Date Bárbara Rader MD [address] [place] [phone] PCP - General Internal Medicine 07/16/24 Luke Gayle, Shan Pharmacist Internal Medicine 09/04/22 [facility] 11/17/24 documented as of this encounter
--- OUTSIDE RECORDS SUMMARY | 2025-08-10 12:23 | XMS_ITS | Encounter Summary ---
Author Organization [employer] Address [address] [facility] 7t [place] [address] Care Team Providers Care Site Monitor Name Role Phone Luke Gayle PharmD Unavailable Unavail able Bárbara Rader MD Primary Care Provide r Encounter Details Date Type Department Care Team ([facility] st Contact Info) Description 08/10/2025 Orders Only [facility] [address] [place] [address] Bárbara Rader MD [address] [place], [place] [phone] Social History Tobacco Use Types Packs/Day Years [...] 08/11/2025 11:00 AM EST Office Visit [facility] [address] [place] [address] Bárbara Rader MD [address] [place] [address] 10/13/2025 1:30 PM EST Office Visit [facility] OPT[facility] [address] [place] [address] Abigail James, OD [address] [place] [address] documented as of this encounter Goals Goal Patient Goal Type Associated Problems Recent Progress Patient-Stated? Author Blood Pressure < 140/90 Blood Pressure 124/70( 025 11:42 AM EDT) No Luke Gayle, PharmD Help patients manage their type 2 diabetes Care Plan Help patients manage their type 2 diabetes Cornelia Demarco Weekly blood pressure task Care Plan Weekly blood pressure task No Cornelia Lin Help patients manage their type 2 diabetes Care Plan Help patients manage their type 2 diabetes Cornelia Demarco Patient has chronic kidney disease Care Plan Patient has chronic kidney disease Cornelia Demarco Weekly blood pressure task Care Plan Weekly blood pressure task No Delia Cornelia Patient has chronic kidney disease Care Plan Patient has chronic kidney disease No Cornelia Lin documented as of this encounter Procedures Procedure Name Priority Date/Time Associated Diagnosis Comments URINALYSIS, COMPLETE, WITH REFLEX TO CULTURE Routine 08/10/2025 10:20 AM EST documented in this encounter Results * (ABNORMAL) Urinalysis, Complete, with Reflex to Culture (08/10/2025 10:20 AM EST) Color Urine Yellow [facility] Appearance Urine Turbid [facility] PH 5.5 5.0 - 9.0 [facility] Glucose Urine UA Negative Negative mg/dL [facility] Urine Blood Small (1+)(A) Negative [facility] Specific [place] - Urine 1.010 1.005 - 1.025 [facility] Urine Protein 30 (1+)(A) Neg-Trace mg/dL [facility] Urine Ketones Negative Negative mg/dL [facility] Nitrite Urine Negative Negative [facility] Leukocyte Esterase Urine Large (3+)(A) Negative [facility] RBC Urine 0-2 0 - 2 /HPF [facility] Urine WBC >50 0 - 5 /HPF [facility] Urine Squamous Epithelial Cell 6-10 0 - 2 /HPF [facility] Urine Bacteria 3+ None Seen [facility] Hyaline Casts, Urine 0-2 0 - 2 /LPF [facility] 08/10/2025 10:2 0 AM EST 08/10/2025 11:04 AM EST Narrative [facility] - 08/10/2025 11:38 AM EST Urine, Clean Catch us Bárbara Raymundo MD LAB URINE ORDERABLES Final Result [facility] [address] [place] [phone] documented in this encounter Visit Diagnoses Not on filedocumented in this encounter Additional Health Concerns Active Problems Noted Date Diagnosed Date Help patients manage their type 2 diabetes 08/03 Weekly blood pressure task 08/03/2025 Help patients manage their type 2 diabetes 08/03 Patient has chronic kidney disease 08/03/2025 Weekly blood pressure task 08/03/2025 Patient has chronic kidney disease 08/03/2025 Assessment Noted Time PHQ-9 Depression Total Score: 0 05/14/20 25 11:46 AM EDT documented as of this encounter Care Teams Site Monitor Relationship Specialty Start Date End Date Bárbara Rader MD [address] [place] [phone] PCP - General Internal Medicine 07/16/24 Luke Gayle PharmD Pharmacist Internal Medicine 09/04/22 [facility] 11/17/24 documented as of this encounter
--- OUTSIDE RECORDS SUMMARY | 2025-08-10 12:23 | XMS_ITS | Encounter Summary ---
Author Organization [employer] Address [address] [facility] 7t [place] [address] Care Team Providers Care Vacuum Filter Operator Name Role Phone Luke Gayle PharmD Unavailable Unavail able Bárbara Rader MD Primary Care Provide r Reason for Visit * Reason Comments Med Refill Encounter Details Date Type Department Care Team ([facility] st Contact Info) Description 11/04/2024 Refill [facility] [address] [place] [address] Carmine Patel MD 505 [place] [address] Epigastric pain Social History Tobacco Use Types [...] Description 08/11/2025 11:00 AM EST Office Visit [facility] [address] [place] [address] Bárbara Rader MD 230 [place] [address] 10/13/2025 1:30 PM EST Office Visit [facility] [address] [place] [address] Jacob, Abigail, OD 230 [place] [address] documented as of this encounter Goals Goal [...] documented as of this encounter Care Teams Vacuum Filter Operator Relationship Specialty Start Date End Date Bárbara Rader MD [address] [place] [address] PCP - General Internal Medicine 07/16/24 Luke Gayle, Shan Pharmacist Internal Medicine 09/04/22 [facility] 07/10/24 11/19/24 [facility] 11/17/24 documented as of this encounter
--- OUTSIDE RECORDS SUMMARY | 2025-08-10 12:23 | XMS_ITS | Encounter Summary ---
Author Organization [employer] Address [address] [facility] 7[address] [place] [address] Care Team Providers Care Belt Loop Cutter Name Role Phone Carmine Patel MD Primary Care Provider +1- [phone] Luke Gayle PharmD Unavailable Unavail able Bárbara Rader MD Primary Care Provide r Encounter Details Date Type Department Care Team ([facility] Contact Info) Description 06/21/2023 Orders Only [facility] MED & PEDS 505 [place], [place] [phone] Carmine Patel MD 505 [place], [place] [phone] Right hip pain (Primary Dx) Social History [...] Upcoming Encounters Date Type Department Care Team ([facility] Contact Info) Description 08/11/2025 11:00 AM EST Office Visit [facility] MEDICINE 230 [place], [place] [phone] Bárbara Rader MD 230 [place], [place] [phone] 10/13/2025 1:30 PM EST Office Visit [facility] OPTOMETRY [address] [place] [address] Jacob, Abigail, OD 230 [place], [place] [phone] documented as of this encounter Goals Goal [...] documented as of this encounter Care Teams Belt Loop Cutter Relationship Specialty Start Date End Date Carmine Patel MD 505 [place] [address] PCP - General Internal Medicine 11/16/15 07/15/24 Bárbara Rader MD 230 [place], [place] [phone] PCP - General Internal Medicine 07/16/24 Luke Gayle, PharmD 505 [place] [address] Pharmacist Internal Medicine 09/04/22 [facility] 07/10/24 11/19/24 [facility] 11/17/24 documented as of this encounter
--- OUTSIDE RECORDS SUMMARY | 2025-08-10 12:23 | XMS_ITS | Encounter Summary ---
Author Organization [employer] [facility] Address [address] [facility] [address] [place] [address] Care Team Providers Care Brush Hand Name Role Phone Carmine Patel MD Primary Care Provider +1- [phone] Luke Gayle PharmD Unavailable Unavail able Bárbara Rader MD Primary Care Provide r Encounter Details Date Type Department Care Team (Latest Contact Info) Description 06/26/2019 Abstract [facility] Dental, Provider, DDS Social [...] EST Office Visit [facility] [address] [place] [address] Bárbara Rdaer MD 230 [place] [address] 10/13/2025 1:30 PM EST Office Visit [facility] [address] [place] [address] Abigail James, OD 230 [place] [address] documented as of this encounter Visit Diagnoses Not on filedocumented in this encounter Care Teams Brush Hand Relationship Specialty Start Date End Date Carmine Patel MD 505 [place] [address] PCP - General Internal Medicine 11/16/15 07/15/24 Bárbara Rader MD [address] [place] [address] PCP - General Internal Medicine 07/16/24 Luke Gayle PharmD 505 [place] [address] Pharmacist Internal Medicine 09/04/22 [facility] 07/10/24 11/19/24 [facility] 11/17/24 documented as of this encounter
--- OUTSIDE RECORDS SUMMARY | 2025-08-10 12:24 | XMS_ITS | Encounter Summary ---
Author Organization [employer] Address [address] [facility] [address] [place] [address] Care Team Providers Care Rope Tier Name Role Phone Carmine Patel MD Primary Care Provider +1- [phone] Luke Gayle PharmD Unavailable Unavail able Bárbara Rader MD Primary Care Provide r Reason for Visit * Reason Onset Date Comments Call Back Request 02/06/2024 Encounter Details Date Type Department Care Team (Late st Contact Info) Description 02/06/2024 Telephone [facility] 230 [place] [address] Carmine Patel MD 505 [place] [address] Call Back Request Social History Tobacco Use [...] to see if they are ready for slate picker. Advised son on PCP recommendations for sleep problems. Son verbalized understanding and agrees with plan. Son advised to call our office if he has any further issues with DME's or if a new problem arises prior to recall date. * Telephone Encounter - Ami Hqa - 02/06/2024 11:33 AM EDT Tc from son requesting a call back stated during last visit with PCP Dr Patel informed will sendmedication for sleep and multiple DME and nothing is happening Please contact at [phone] documented in this encounter Plan of Treatment Upcoming Encounters Date Type Department Care Team (Late st Contact Info) Description 08/11/2025 11:00 AM EST Office Visit [facility] [address] [place] [address] Bárbara Rader MD 230 [place] [address] 10/13/2025 1:30 PM EST Office Visit [facility] OPTOMETRY [address] [place], [place] [phone] Abigail James, OD 230 [place] [address] documented as of this encounter Goals Goal [...] documented as of this encounter Care Teams Rope Tier Relationship Specialty Start Date End Date Carmine Patel MD 505 [place] [address] PCP - General Internal Medicine 11/16/15 07/15/24 Bárbara Rader MD 230 [place], [place] [phone] PCP - General Internal Medicine 07/16/24 Luke Gayle, PharmD 505 [place] [address] Pharmacist Internal Medicine 09/04/22 [facility] 07/10/24 11/19/24 [facility] 11/17/24 documented as of this encounter
--- OUTSIDE RECORDS SUMMARY | 2025-08-10 12:24 | XMS_ITS | Encounter Summary ---
Author Organization [employer] Address [address] [facility] 7[address] [place] [address] Care Team Providers Care Care Information Associate Name Role Phone Carmine Patel MD Primary Care Provider +1- [phone] Luke Gayle PharmD Unavailable Unavail able Bárbara Rader MD Primary Care Provide r Reason for Visit * Reason Onset Date Comments FYI 05/07/2024 Encounter Details Date Type Department Care Team (Late st Contact Info) Description 05/07/2024 Telephone [facility] MEDICINE 230 [place] [address] Carmine Patel MD 505 [place] [address] FYI Social History Tobacco Use Types Packs/Day [...] any questions you can contact Terence at [phone]. documented in this encounter Plan of Treatment Upcoming Encounters Date Type Department Care Team (Late st Contact Info) Description 08/11/2025 11:00 AM EST Office Visit [facility] MEDICINE [address] [place] [address] Bárbara Rader MD 230 [place] [address] 10/13/2025 1:30 PM EST Office Visit [facility] OPTOMETRY [address] [place] [address] Abigail James, OD 230 [place] [address] documented as of this encounter Goals Goal [...] documented as of this encounter Care Teams Care Information Associate Relationship Specialty Start Date End Date Carmine Patel MD 505 [place] [address] PCP - General Internal Medicine 11/16/15 07/15/24 Bárbara Rader MD 230 [place] [address] PCP - General Internal Medicine 07/16/24 Luke Gayle, PharmD 505 [place] [address] Pharmacist Internal Medicine 09/04/22 [facility] 07/10/24 11/19/24 [facility] 11/17/24 documented as of this encounter
--- OUTSIDE RECORDS SUMMARY | 2025-08-10 12:24 | XMS_ITS | Clinical Summary ---
Author Organization [facility] Address [address] [place] [address] Phone Care Team Providers Care Data Base Administrator Name Role Phone Carmine Patel MD Primary [...] every morning 04/04/2023 Active ergocalciferol 1.25 MG (68098 UT) capsule 50,000 Units 1 (one) time [...] patient's age to complete this topic Insurance [facility] ([id number]) ZUHAIR ROBLERO [id number] [facility] ([id number]) ZUHAIR ROBLERO [phone] Care Teams Data Base Administrator Relationship Specialty Start Date End Date Carmine Patel MD [address] [place], [place] [address] [address] PCP - General Internal Medicine 05/02/21
--- OUTSIDE RECORDS SUMMARY | 2025-08-10 12:24 | XMS_ITS | Encounter Summary ---
Author Organization [employer] Address [address] [facility] 7[place] [address] Care Team Providers Care Cash Applications Specialist Name Role Phone Carmine Patel MD Primary Care Provider +1 [phone] Luke Gayle PharmD Unavailable Unavail able Bárbara Rader MD Primary Care Provide r Reason for Visit * Reason Onset Date Comments FYI 02/15/2024 Encounter Details Date Type Department Care Team ([facility] st Contact Info) Description 02/15/2024 Telephone [facility] MED & PEDS 505 [place], [place] [phone] Carmine Patel MD 505 [place], [place] [phone] FYI Social History Tobacco Use Types Packs/Day [...] - 02/15/2024 3:07 PM EDT Tc from [facility] with Tiffany calling to report pt has been discharged as of today from home PT. documented in this encounter Plan of Treatment Upcoming Encounters Date Type Department Care Team (Late st Contact Info) Description 08/11/2025 11:00 AM EST Office Visit [facility] MEDICINE 230 [place] [address] Bárbara Rader MD 230 [place] [address] 10/13/2025 1:30 PM EST Office Visit [facility] OPTOMETRY [address] [place] [address] Abigail James, OD 230 [place] [address] documented as of this encounter Goals Goal [...] documented as of this encounter Care Teams Cash Applications Specialist Relationship Specialty Start Date End Date Carmine Patel MD 505 [place] [address] PCP - General Internal Medicine 11/16/15 07/15/24 Bárabra Rader MD [address] [place] [address] PCP - General Internal Medicine 07/16/24 Luke Gayle PharmD 505 [place] [address] Pharmacist Internal Medicine 09/04/22 [facility] 07/10/24 11/19/24 [facility] 11/17/24 documented as of this encounter
--- OUTSIDE RECORDS SUMMARY | 2025-08-10 12:24 | XMS_ITS | Encounter Summary ---
Author Organization [employer] Address [address] [facility] 7t [place] [address] Care Team Providers Care Cigarette Packing Machine Operator Name Role Phone Carmine Patel MD Primary Care Provider +1- [phone] Luke Gayle PharmD Unavailable Unavail able Bárbara Rader MD Primary Care Provide r Encounter Details Date Type Department Care Team (Late st Contact Info) Description 02/14/2024 Orders Only [facility] CHC MED & PEDS 505 [place], [place] [phone] Carmine Patel MD 505 [place], [place] [phone] Type 2 diabetes mellitus with other specified complication, without long-term current use of insulin ([facility]) (Primary Dx) Social History Tobacco [...] 11:00 AM EST Office Visit [facility] MEDICINE 230 [place] [address] Bárbara Rader MD 230 [place] [address] 10/13/2025 1:30 PM EST Office Visit [facility] OPTOMETRY [address] [place] [address] Jacob, Abigail, OD 230 [place] [address] documented as of this encounter Goals Goal [...] AM EDT Narrative 03/31/2024 9:51 AM EDT [address] [address] XRay Report Signed Patient: Magalie Solis MR#: [id number] : 1945 Acct:[id number] Age/Sex: 78 / F ADM Date: 03/13/24 Loc: HO.XRAY Attending Dr: Ofelia Ly NP Ordering Physician: Saleem Young PA-C Date of Service: 03/13/24 Procedure(s): XR ankle RT min 3V Accession Number(s): [id number] cc: Carmine Patel MD; Saleem Young PA-C [...] callus formation. This study was presented to tn March 31, 2024 for interpretation. PSA staff will provide results to referring provider at this time. Dictated By: Tierra Worthy MD Signed By: <Electronically signed by Tierra Worthy MD in OV> 03/31/2449 DD/ TD/TT: Highballer: Procedure Note Laura, Dara - 03/31/2024 [place] [address] XRay Report Signed Patient: Magalie Solis MMR#: [id number] : 6Acct:[id number] Age/Sex: 78 / FADM Date: 03/13/24 Loc: HO.EROSAY Attending Dr: Ofelia Ly NP Ordering Physician: Saleem Young PA-C Date of Service: 03/13/24 Procedure(s): XR ankle RT min 3V Accession Number(s): [id number] cc: Carmine Patel MD; Saleem Young PA-C [...] callus formation. This study was presented to tn March 31, 2024 for interpretation. PSA staff will provide results to referring provider at this time. Dictated By: Tierra Worthy MD Signed By: <Electronically signed by Tierra Worthy MD in OV> 03/31/2449 DD/ TD/TT: Highballer: [facility] External Provider IMG XR PROCEDURES Final Result * BI Mammogram Additional Views Right (03/12/2024 2:15 PM EDT) Anatomical Region Laterality Modality Breast Right Mammography 03/12/2024 2:15 PM EDT Narrative 03/12/2024 3:08 PM EDT [address] [place] [address] Mammography Report Signed Patient: Magalie Live MR#: [id number] : 1945 Acct:[id number] Age/Sex: 78 / F ADM Date: 03/12/24 Loc: MAMMO Attending Dr: Carmine Patel MD Ordering Physician: Carmine Patel MD Results: 2 Benign Findings Date of Service: 03/12/24 Follow Up: 1 Year From [facility] Mammogram Procedure(s): MM added views RT Accession Number(s): [id number] cc: Carmine Patel MD EXAMINATION: MM DIAGNOSTIC [...] in OV> 03/12/24 1504 DD/ 1415 TD/TT: Highballer: Procedure Note Donotuseinterpreter, Image - 03/12/2024 [facility] [address] [place], [place] [address] Mammography Report Signed Patient: Magalie Live MMR#: [id number] : 6Acct:[id number] Age/Sex: 78 / FADM Date: 03/12/24 Loc: SANDIO Attending Dr: Carmine Patel MD Ordering Physician: Carmine Patel MDResults: 2 Benign Findings Date of Service: 03/12/24Follow Up: 1 Year From Orig inal Mammogram Procedure(s): MM added views RT Accession Number(s): [id number] cc: Carmine Patel MD EXAMINATION: MM DIAGNOSTIC [...] in OV> 03/12/24 1504 DD/ 1415 TD/TT: Highballer: Carmine Patel MD IMG BI PROCEDURES Final Res ult documented in this encounter Visit Diagnoses Diagnosis Type 2 diabetes mellitus with other specified complication, without long-term current use of insulin (HCC)- Primary documented in this encounter Additional Health Concerns Assessment Noted Time PHQ-9 Depression Total Score: 0 10/09/19 23 11:12 AM EST documented as of this encounter Care Teams Cigarette Packing Machine Operator Relationship Specialty Start Date End Date Carmine Patel MD 505 [place] [address] PCP - General Internal Medicine 11/16/15 07/15/24 Bárbara Rader MD [address] [place] [address] PCP - General Internal Medicine 07/16/24 Luke Gayle PharmD 505 [place] [address] Pharmacist Internal Medicine 09/04/22 [facility] 07/10/24 11/19/24 [facility] 11/17/24 documented as of this encounter
--- OUTSIDE RECORDS SUMMARY | 2025-08-10 12:24 | XMS_ITS | Encounter Summary ---
Author Organization [employer] Address [address] [place] [address] 7[place], [place] [address] Care Team Providers Care Perfect Binder Feeder Offbearer Name Role Phone Carmine Patel MD Primary Care Provider [phone] Luke Gayle PharmD Unavailable Unavail able Bárbara Rader MD Primary Care Provide r Reason for Referral * Consultation (Routine) - Closed Specialty Diagnoses / Procedures Referred By Alden andres Referred To Contact Physical Therapy Diagnoses Acute right ankle pain Carmine Patel MD 505 [place] [address] Phone: tel: fax: [facility] [address] [place] [address] Phone: tel: fax: Referral ID Status Reason Start Date Expiration Date V isits Requested Visits Authorized [id number] Closed Specialty Services Required 03/28/2024 03/28/2025 1 1 Encounter Details Date Type Department Care Team (Late st Contact Info) Description 03/24/2024 Orders Only [facility] MED & PEDS 505 [place], [place] [phone] Carmine Patel MD 505 [place] [address] Acute right ankle pain (Primary Dx) Social [...] Visit [facility] MEDICINE 230 [place], [place] [phone] Bárbara Rader MD 230 [place], [place] [phone] 10/13/2025 1:30 PM EST Office Visit [facility] OPTOMETRY [address] [place], [place] [phone] Abigail James, OD 230 [place] [address] Scheduled Orders Name Type Priority Associated Diagnoses [...] Laterality Modality Lower Extremities, Knee Right [facility] Imaging 03/28/2024 11:5 1 AM EDT Narrative 03/28/2024 12:12 PM EDT [place] [address] XRay Report Signed Patient: Magalie Solis MR#: [id number] : 1945 Acct:[id number] Age/Sex: 78 / F ADM Date: 03/28/24 Loc: HO.ED Attending Dr: Ordering Physician: Elzbieta Franz Date of Service: 03/28/24 Procedure(s): XR knee RT 4V Accession Number(s): [id number] cc: Carmine Patel MD; Elzbieta Franz EXAMINATION: [...] in OV> 03/28/24 1208 DD/ 1151 TD/TT: Plan Consultant: Procedure Note Donotuseinterpreter, Image - 03/28/2024 [place] [address] XRay Report Signed Patient: Magalie Solis MMR#: [id number] : 6Acct:[id number] Age/Sex: 78 / FADM Date: 03/28/24 Loc: HO.ED Attending Dr: Ordering Physician: Elzbieta Franz Date of Service: 03/28/24 Procedure(s): XR knee RT 4V Accession Number(s): [id number] cc: Carmine Patel MD; Elzbieta Franz EXAMINATION: [...] in OV> 03/28/24 1208 DD/ 1151 TD/TT: Plan Consultant: [facility] External Provider IMG XR PROCEDURES Final Result documented in this encounter Visit Diagnoses Diagnosis Acute right ankle pain- Primary documented in this encounter Additional Health Concerns Assessment Noted Time PHQ-9 Depression Total Score: 0 10/09/19 23 11:12 AM EST documented as of this encounter Care Teams Perfect Binder Feeder Offbearer Relationship Specialty Start Date End Date Carmine Patel MD 505 [place] [address] PCP - General Internal Medicine 11/16/15 07/15/24 Bárbara Rader MD [address] [place] [address] PCP - General Internal Medicine 07/16/24 Luke Gayle PharmD [address] [place] [address] Pharmacist Internal Medicine 09/04/22 [facility] 07/10/24 11/19/24 [facility] 11/17/24 documented as of this encounter
--- OUTSIDE RECORDS SUMMARY | 2025-08-10 12:24 | XMS_ITS | Encounter Summary ---
Author Organization [employer] Address [address] [facility] 7t [place] [address] Care Team Providers Care Tire Trimmer Hand Name Role Phone Carmine Patel MD Primary Care Provider [phone]- [phone] Luke Gayle PharmD Unavailable Unavail able Bárbara Rader MD Primary Care Provide r Encounter Details Date Type Department Care Team (Late st Contact Info) Description 01/18/2024 Orders Only [facility] CHC MED & PEDS 505 [place], [place] [phone] Carmine Patel MD 505 [place], [place] [phone] Urinary incontinence, unspecified type (Primary Dx) Social [...] Description 08/11/2025 11:00 AM EST Office Visit [facility] MEDICINE 230 [place] [address] Bárbara Rader MD 230 [place] [address] 10/13/2025 1:30 PM EST Office Visit [facility] OPTOMETRY [address] [place] [address] Abigail James, SULAIMAN 230 [place] [address] documented as of this encounter Goals Goal [...] (06/20/2024 1:00 PM EDT) Color Urine Yellow [facility] Appearance Urine Cloudy [facility] PH 6.5 5.0 - 9.0 [facility] Glucose Urine UA Negative Negative mg/dL [facility] Urine Blood Trace(A) Negative [facility] Specific Stem - Urine 1.010 1.005 - 1.025 [facility] Urine Protein Negative Neg-Trace mg/dL [facility] Urine Ketones Negative Negative mg/dL [facility] Nitrite Urine Negative Negative [facility] Leukocyte Esterase Urine Large (3+)(A) Negative [facility] RBC Urine 0-2 0 - 2 /HPF [facility] Urine WBC >50(A) 0 - 5 /HPF [facility] Urine Squamous Epithelial Cell 0-2 0 - 2 /HPF [facility] Urine Bacteria 4+ None Seen [facility] Hyaline Casts, Urine 0-2 0 - 2 /LPF [facility] Urine 06/20/2024 1:00 PM EDT 06/20/2024 3:09 PM EDT Narrative [facility] - 06/20/2024 3:25 PM EDT Urine, Clean Catch us Carmine Patel MD LAB URINE ORDERABLES Final Result [facility] [address] [place] [address] [phone] documented in this encounter Visit Diagnoses Diagnosis Urinary incontinence, unspecified type- Primary documented in this encounter Additional Health Concerns Assessment Noted Time PHQ-9 Depression Total Score: 0 10/09/19 23 11:12 AM EST documented as of this encounter Care Teams Tire Trimmer Hand Relationship Specialty Start Date End Date Carmine Patel MD [address] [place] [address] PCP - General Internal Medicine 11/16/15 07/15/24 Bárbara Rader MD [address] [place] [address] PCP - General Internal Medicine 07/16/24 Luke Gayle PharmD [address] [place] [address] Pharmacist Internal Medicine 09/04/22 [facility] 07/10/24 11/19/24 [facility] 11/17/24 documented as of this encounter
--- OUTSIDE RECORDS SUMMARY | 2025-08-10 12:24 | XMS_ITS | Encounter Summary ---
Author Organization [employer] Address [address] [facility] 7t [place] [address] Care Team Providers Care Greenhouse Laborer Name Role Phone Carmine Patel MD Primary Care Provider +1- [phone] Luke Gayle PharmD Unavailable Unavail able Bárbara Rader MD Primary Care Provide r Encounter Details Date Type Department Care Team (Late st Contact Info) Description 06/11/2024 Orders Only [facility] CHC MED & PEDS [address] [place], [place] [phone] Carmine Patel MD 505 [place], [place] [phone] Pruritus (Primary Dx) Social History Tobacco Use [...] 08/11/2025 11:00 AM EST Office Visit [facility] MEDICINE 230 [place] [address] Bárbara Rader MD 230 [place] [address] 10/13/2025 1:30 PM EST Office Visit [facility] OPTOMETRY [address] [place] [address] Abigail James, OD 230 [place] [address] documented as of this encounter Goals Goal [...] documented as of this encounter Care Teams Greenhouse Laborer Relationship Specialty Start Date End Date Carmine Patel MD [address] [place] [address] PCP - General Internal Medicine 11/16/15 07/15/24 Bárbara Rader MD [address] [place] [address] PCP - General Internal Medicine 07/16/24 Luke Gayle PharmD [address] [place] [address] Pharmacist Internal Medicine 09/04/22 [facility] 07/10/24 11/19/24 [facility] 11/17/24 documented as of this encounter
--- OUTSIDE RECORDS SUMMARY | 2025-08-10 12:24 | XMS_ITS | Encounter Summary ---
Author Organization [employer] Address [address] [facility] 7[address] [place] [address] Care Team Providers Care Shooter Helper Name Role Phone Luke Gayle PharmD Unavailable Unavail able Bárbara Rader MD Primary Care Provide r Reason for Visit * Reason Onset Date Comments Appointment Request 09/15/2024 Encounter Details Date Type Department Care Team ([facility] st Contact Info) Description 09/15/2024 Telephone [facility] [address] [place] [address] Bárbara Rader MD [address] [place], [place] [phone] Appointment Request Social History Tobacco Use Types [...] Description 08/11/2025 11:00 AM EST Office Visit [facility] [address] [place] [address] Bárbara Rader MD [address] [place] [address] 10/13/2025 1:30 PM EST Office Visit [facility] [address] [place], [place] [phone] Abigail James, OD [address] [place] [address] documented as of this encounter Goals Goal [...] documented as of this encounter Care Teams Shooter Helper Relationship Specialty Start Date End Date Bárbara Rader MD [address] [place] [id number] PCP - General Internal Medicine 07/16/24 Luke Gayle, PharmD Pharmacist Internal Medicine 09/04/22 [facility] [place] 07/10/24 11/19/24 [facility] 11/17/24 documented as of this encounter
== END 2025-08-10 10:12 | disposition home or self-care (01) ==
LOC: HO.HHCL 10:11
PROVIDERS: PCP Internal Medicine; Visit Provider Internal Medicine
DX: R39.9 Unspecified symptoms and signs involving the genitourinary system (principal)
CPT/HCPCS: 81001; 87086

== ENCOUNTER 2025-08-26 09:42 | Outpatient (AMB) | payer OTHER, SELFPAY ==
[2025-08-26 11:05] VITALS: BMI 42.5
--- NOTE | 2025-08-26 11:05 | A.OFFVIS_ITS ---
Vital Signs 08/26/25 11:05 Height 5 ft 3 in Weight 240 lb BMI 42.5 Intake Visit Reasons: fu Intake Note: Magalie is a 80 year old female who presents to the office today for a follow up of her right ankle/foot. At last visit pt was referred for a right ankle custom AFO. Pt states she is still experiencing constant pain, with no other concerns at this time. Inspector Aligning Required: Yes Inspector Aligning Services: Inspector Aligning Present Inspector Aligning Name: [id number] Allergies No Known Allergies (No Known Allergies*) Allergy (Verified 08/26/25 11:10) HPI HPI fu: Details: 80-year-old female with past medical history of diabetes mellitus type 2, COPD, NICO, CHF, returning for right ankle pain. She never received her AFO brace. Still having a lot of pain and is interested in surgical treatment. History: The patient has a history of right ankle fracture sustained 11/13/2023 after a mechanical fall. She was treated conservatively due to her multiple comorbidities via casting. During the treatment. , her ankle had further displaced and healed in a malunited position. Currently, the patient ambulates without any ankle support. She uses a walker and states that she has pain after her first step. The patient states she has not tried any custom bracing. Patient also states that she did not use any assistive devices prior to her fracture. [facility] Medical History (Updated 08/26/25 @ 12:28 by Bandar Taylor DPM) Diabetes mellitus Unspecified urinary incontinence NICO (obstructive sleep apnea) CHF (congestive heart failure) 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 indication of end stage renal disease in patient 6 to 64 years of age Lymphadenopathy Abdominal pain Bursitis of right hip Osteoarthritis of right hip Restrictive ventilatory defect Dyspnea on exertion Varicose veins of right lower extremity with inflammation Pneumonitis Pulmonary hypertension Hypertensive cardiovascular disease Acute hypoxic on chronic hypercapnic respiratory failure Acute on chronic respiratory failure with hypoxemia Obesity hypoventilation syndrome GERD (gastroesophageal reflux disease) Hypertension COPD (chronic obstructive pulmonary disease) Surgical History S/P laparoscopic cholecystectomy (07/14/21) Family History Mother Diabetes Social History Household Members: Other Household Members Other:: Cousin Housing: Unknown / Unable to assess Do you presently have visiting nurse or other home services: Yes Alcohol intake: never Patient Tobacco Use Status: Former Tobacco user Tobacco use type: Cigarette Years Smoked: 20 Advance Directives Date on File: 02/22/22 service: No Current occupational status: unemployed and disabled Review of Systems Const All systems reviewed & are unremarkable except as noted in HPI and below Physical Exam Vital Signs: BMI result Body Mass Index 42.5 Extrem Other: *Bilateral Lower Extremity Focused Exam Vascular: DP/PT 1/4, CFT less than 3 seconds all digits, temperature gradient warm to cool. No pedal or ankle edema. Derm: No open wounds or clinical signs of infection. No skin tenting. Neuro: Protective sensation grossly intact to bilateral lower extremities. MSK: Right ankle valgus, approximately 45 degrees externally rotated. Moderate pain on palpation of the medial ankle gutter and over the lateral malleolus. Right ankle dorsiflexion 0 degrees neutral with crepitus on end range of motion; no improvement on knee flexion. Right ankle 15 degrees of plantarflexion with guarding. Gait: Antalgic with walker Results Reviewed Results Reviewed: X-ray Read: 07/07/2025 X-ray right ankle 3 views (AP, Mortise, Lateral) nonweightbearing films reviewed which shows right ankle valgus with 11 mm medial clear space, moderate joint space narrowing on lateral view, healed shortened fibula fracture.. I personally reviewed the imaging and my findings are listed above. Assessment & Plan Assessment & Plan (1) Right ankle joint deformity: Code(s): M21.961 - Unspecified acquired deformity of right lower leg Category: Medical Plan: * Reviewed right ankle x-rays with the patient and her . * The patient never received her custom AFO right ankle. We will contact the O&P company and request to speed the process. * Recommended trialing AFO prior to proceeding with TTC/ankle fusion. (2) Arthritis of right ankle: Code(s): M19.071 - Primary osteoarthritis, right ankle and foot Category: Medical Plan: * The patient may require a primary TTC fusion. Explained that she has a high- risk candidate for surgery. She was recommended exploring all nonsurgical options first. * Referred for CT scan of the right ankle (3) Diabetes mellitus: Code(s): E11.9 - Type 2 diabetes mellitus without complications Category: Medical Qualifiers: Diabetes mellitus type: type 2 Diabetes mellitus mcfp insulin use: with mcfp use Diabetes mellitus complication status: with circulatory complication Plan: * Possible PAD. * Referred for arterial doppler ultrasound. If findings concerning for PAD, she will require vascular surgery clearance prior to surgery. (4) Class 3 obesity with alveolar hypoventilation and body mass index (BMI) of 40.0 to 44.9 in adult: Code(s): E66.2 - Morbid (severe) obesity with alveolar hypoventilation; Z68.41 - Body mass index [BMI] 40.0-44.9, adult Category: Medical Qualifiers: Serious obesity comorbidity presence: with serious comorbidity Qualified Code(s): E66.813 - Obesity, class 3; E66.2 - Morbid (severe) obesity with alveolar hypoventilation; Z68.41 - Body mass index [BMI] 40.0-44.9, adult Plan: * We will require medical clearance, cardiac clearance, possible pulmonology clearance. Orders: Orders CT ankle RT wo IV con Today M19.071 - Primary osteoarthritis, right ankle and foot, M21.961 - Unspecified acquired deformity of right lower leg, S82.891D - Other fracture of right lower leg, subsequent encounter for closed fracture with routine healing US arterial duplex LE BI Today E11.9 - Type 2 diabetes mellitus without complications, M21.961 - Unspecified acquired deformity of right lower leg Coding Level of Care Code Est Pt Level 3 (59196) Diagnoses Right ankle joint deformity M21.961 Arthritis of right ankle M19.071 Diabetes mellitus E11.9 Diabetes mellitus type: type 2 Diabetes mellitus intermediate manager insulin use: with intermediate manager use Diabetes mellitus complication status: with circulatory complication Class 3 obesity with alveolar hypoventilation, serious comorbidity, and body mass index (BMI) of 40.0 to 44.9 in adult E66.813; E66.2; Z68.41 Serious obesity comorbidity presence: with serious comorbidity Time Spent (min) 25
== END 2025-08-26 11:42 | disposition home or self-care (01) ==
LOC: HO.HPODS 09:42
PROVIDERS: PCP Internal Medicine; Visit Provider Student in an Organized Health Care Education/Training Program
DX: M21.961 Unspecified acquired deformity of right lower leg (principal); M19.071 Primary osteoarthritis, right ankle and foot; E11.9 Type 2 diabetes mellitus without complications; E66.813 Obesity, class 3; E66.2 Morbid (severe) obesity with alveolar hypoventilation; Z68.41 Body mass index [BMI] 40.0-44.9, adult
CPT/HCPCS: 99213

== ENCOUNTER → 2025-08-26 09:42 | Outpatient (BNVA) | payer OTHER, SELFPAY | PROVIDERS: PCP Internal Medicine; Visit Provider Student in an Organized Health Care Education/Training Program | DX: M19.071 Primary osteoarthritis, right ankle and foot (principal); M21.961 Unspecified acquired deformity of right lower leg; E11.9 Type 2 diabetes mellitus without complications; Z79.4 Long term (current) use of insulin; E66.813 Obesity, class 3; E66.2 Morbid (severe) obesity with alveolar hypoventilation; Z68.41 Body mass index [BMI] 40.0-44.9, adult | CPT/HCPCS: 99212 ==

== ENCOUNTER 2025-08-27 13:03 | Outpatient (AMB) | payer OTHER, SELFPAY ==
[2025-08-27 13:13] VITALS: BP 132/86; PULSE 74; O2SAT 95; BMI 43.2
--- NOTE | 2025-08-27 13:13 | MHC.OFFVIS ---
Vital Signs 08/27/25 13:13 Height 5 ft 3 in Weight 244 lb BMI 43.2 BP 132/86 Blood Pressure Location Rt brachial Position Sitting Pulse 74 Pulse Source Pulse Oximeter Pulse Oximetry (%) 95 Oxygen Delivery Method Room Air Intake Visit Reasons: Obstructive sleep apnea Special Certificate Dictator Required: Yes Special Certificate Dictator Name: Kaylynn Jain Tresa Information Interpreted: non-clinical & clinical Allergies No Known Allergies (No Known Allergies*) Allergy (Verified 08/27/25 13:20) HPI HPI Obstructive sleep apnea: Details: 80-year-old lady, former smoker, quit over 30 years prior, with underlying history morbid obesity, NICO/obesity hypoventilation syndrome diastolic dysfunction followed for severe NICO on BiPAP therapy . She continues on her BiPAP with good control of her obstructive sleep apnea symptoms. 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 Dyspnea on exertion Varicose veins of right lower extremity with inflammation Pneumonitis Pulmonary hypertension Hypertensive cardiovascular disease Acute hypoxic on chronic hypercapnic respiratory failure Acute on chronic respiratory failure with hypoxemia Obesity hypoventilation syndrome GERD (gastroesophageal reflux disease) Hypertension COPD (chronic obstructive pulmonary disease) Surgical History S/P laparoscopic cholecystectomy (07/14/21) Family History Mother Diabetes Social History Household Members: Other Household Members Other:: Cousin Housing: Unknown / Unable to assess Do you presently have visiting nurse or other home services: Yes Alcohol intake: never Patient Tobacco Use Status: Former Tobacco user Tobacco use type: Cigarette Years Smoked: 20 Advance Directives Date on File: 02/22/22 service: No Current occupational status: unemployed and disabled Review of Systems Const Denies daytime sleepiness, Denies excessive sweating, Denies fatigue, Denies fever(s), Denies lethargy, Denies malaise, Denies night sweats, Denies snoring and Denies weight loss Eyes Denies blurry vision and Denies itchy eyes ENT Denies nasal congestion, Denies post nasal drip, Denies sinus pain, Denies sinus pressure and Denies other ( Thrush) Card Denies chest pain, Denies pedal edema, Denies dyspnea, Denies orthopnea and Denies paroxysmal nocturnal dyspnea Resp Denies cough, Denies hemoptysis, Denies excessive phlegm production, Denies dyspnea, Denies snoring and Denies wheezing GI Denies abdominal pain and Denies heartburn Musc Denies myalgias, Denies arthralgias and Denies joint swelling Skin/Breast Denies rash Neuro Denies memory loss and Denies seizure-like activity Psych Denies abnormal sleep pattern, Denies anxiety and Denies memory loss Endo Denies excessive sweating, Denies fatigue and Denies heat intolerance Ralph/Lymph Denies easy bruising Aller/Immun Denies itchy eyes, Denies seasonal rhinorrhea and Denies wheezing Physical Exam Vital Signs: Last Vital Signs Pulse 74 08/27/25 13:13 BP 132/86 08/27/25 13:13 Pulse Ox 95 08/27/25 13:13 Oxygen Delivery Method Room Air 08/27/25 13:13 BMI result Body Mass Index 43.2 Const General: no acute distress and alert Nutritional Appearance: obese Orientation/consciousness: Other orientation findings ( oriented) HEENT Head: Yes atraumatic Eyes General: appearance normal, both eyes and all related structures Sclerae: sclerae normal EOM: EOMs intact bilaterally Neck Neck: Yes supple Lymphatic: no lymphadenopathy noted Resp Effort & Inspection: normal respiratory effort and no use of accessory muscles Auscultation: clear to auscultation bilaterally Cardio Rate: regular rate Rhythm: regular rhythm Heart sounds: no gallops, no murmurs and no rubs Skin General skin exam: other ( warm) Extrem General: No clubbing, No cyanosis and No edema Assessment & Plan Assessment & Plan (1) Obesity hypoventilation syndrome: Code(s): E66.2 - Morbid (severe) obesity with alveolar hypoventilation Category: Medical (2) NICO (obstructive sleep apnea): Code(s): G47.33 - Obstructive sleep apnea (adult) (pediatric) Category: Medical Plan Now with significantly improved CO2 retention and sleep quality while on nocturnal BiPAP support. Continue current BiPAP therapy. Coding Level of Care Code Est Pt Level 3 (10063) Diagnoses Obesity hypoventilation syndrome E66.2 NICO (obstructive sleep apnea) G47.33
--- OUTSIDE RECORDS SUMMARY | 2025-08-27 19:56 | XMS_ITS | Encounter Summary ---
Author Organization [employer] Address [address] [facility] [address]t [place] [address] Care Team Providers Care Auto Apprentice Mechanic Name Role Phone Luke Gayle PharmD Unavailable Unavail able Bárbara Rader MD Primary Care Provide r Reason for Visit * Reason Comments Med Refill Encounter Details Date Type Department Care Team ([facility] st Contact Info) Description 12/15/2024 Refill [facility] [address] [place] [address] Bárbara Rader MD [address] [place] [address] Other hyperlipidemia Social History Tobacco Use Types [...] Care Team (Late st Contact Info) Description 09/03/2025 10:00 AM EST Clinical Support [facility] [address] [place] [address] 10/13/2025 1:30 PM EST Office Visit [facility] [address] [place] [address] Jacob, Abigail, OD [address] [place] [address] 11/12/2025 2:30 PM EST Office Visit [facility] [address] [place] [address] Bárbara Rader MD [address] [place] [address] documented as of this encounter Goals Goal Patient Goal Type Associated Problems Recent Progress Patient-Stated? Author Blood Pressure < 140/90 Blood Pressure 132/88( 025 11:23 AM EST) No Luke Gayle, PharmD documented as of this encounter Visit Diagnoses Diagnosis Other hyperlipidemia documented in this encounter Additional Health Concerns Assessment Noted Time PHQ-9 Depression Total Score: 0 07/16/20 24 10:22 AM EDT documented as of this encounter Care Teams Auto Apprentice Mechanic Relationship Specialty Start Date End Date Bárbara Rader MD [address] [place] [address] PCP - General Internal Medicine 07/16/24 Luke Gayle PharmD Pharmacist Internal Medicine 09/04/22 [facility] 11/17/24 documented as of this encounter
--- OUTSIDE RECORDS SUMMARY | 2025-08-27 19:56 | XMS_ITS | Encounter Summary ---
Author Organization [employer] Address [address] [facility] 7t [place] [address] Care Team Providers Care Space Control Agent Name Role Phone Carmine Patel MD Primary Care Provider [phone] Luke Gayle PharmD Unavailable Unavail able Bárbara Rader MD Primary Care Provide r Encounter Details Date Type Department Care Team (Late st Contact Info) Description 06/26/2024 Orders Only [facility] [address] [place], [place] [phone] Carmine Patel MD [address] [place], [place] [phone] Burning sensation (Primary Dx) Social History Tobacco [...] 10:00 AM EST Clinical Support [facility] [address] [place] [address] 10/13/2025 1:30 PM EST Office Visit [facility] [address] [place] [address] Jacob, Abigail, OD [address] [place] [address] 11/12/2025 2:30 PM EST Office Visit [facility] [address] [place] [address] Bárbara Rader MD [address] [place] [address] documented as of this encounter Goals Goal [...] documented as of this encounter Care Teams Space Control Agent Relationship Specialty Start Date End Date Carmine Patel MD [address] [place] [address] PCP - General Internal Medicine 11/16/15 07/15/24 Bárbara Rader MD [address] [place] [address] PCP - General Internal Medicine 07/16/24 Luke Gayle, JarettD [address] [place] [address] Pharmacist Internal Medicine 09/04/22 [facility] 07/10/24 11/19/24 [facility] 11/17/24 documented as of this encounter
--- OUTSIDE RECORDS SUMMARY | 2025-08-27 19:56 | XMS_ITS | Encounter Summary ---
Author Organization [employer] Address [address] [facility] 7t [place] [address] Care Team Providers Care Ripening Room Operator Name Role Phone Luke Gayle PharmD Unavailable Unavail able Bárbara Rader MD Primary Care Provide r Reason for Visit * Reason Comments Med Refill Encounter Details Date Type Department Care Team ([facility] st Contact Info) Description 12/15/2024 Refill [facility] [address] [place] [address] Carmine Patel MD [address] [place] [address] Social History Tobacco Use Types Packs/Day Years [...] Description 09/03/2025 10:00 AM EST Clinical Support [facility] [address] [place] [address] 10/13/2025 1:30 PM EST Office Visit [facility] [address] [place] [address] Jacob, Abigail, OD [address] [place] [address] 11/12/2025 2:30 PM EST Office Visit [facility] [address] [place] [address] Bárbara Rader MD [address] [place] [address] documented as of this encounter Goals Goal [...] documented as of this encounter Care Teams Ripening Room Operator Relationship Specialty Start Date End Date Bárbara Rader MD [address] [place] [address] PCP - General Internal Medicine 07/16/24 Luke Gayle PharmD Pharmacist Internal Medicine 09/04/22 [facility] 11/17/24 documented as of this encounter
--- OUTSIDE RECORDS SUMMARY | 2025-08-27 19:57 | XMS_ITS | Data Portability ---
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 Phone MATTHEW ELLIS Primary Care Provider [place] ( [place]) OTHER Assessment Encounter Date Assessment Date Assessment LastModified by Organization Details LastModified Time 01/03/2024 01/03/2024 45 minutes spent on coordination of discharge [id number] Not available 01/03/2024 09:32:40 Plan of Treatment [...] and Address Organization Details Recorded Time Pneumonitis 391430306 Active 2023 Joslyn Daley NP [address] [facility], [address], [place], [address], [facility] 4 11:57:32 Acute on chronic hypercapnic respiratory failure 5913382426113 Active 2023 Joslyn Daley NP [address] , [address], [place], [address], [facility] 4 11:58:03 Chronic obstructive pulmonary disease 06611344 Active 2023 Joslyn Daley NP [address] , [address], [place], [address], [facility] 4 12:28:42 Obstructive sleep apnea syndrome 92144077 Active 2023 Joslyn Daley NP [address], [address], [place], [address], [facility] 4 12:28:49 Type 2 diabetes mellitus 73502537 Active 2023 Joslyn Daley NP [address], [address], [place], [address], [facility] 4 12:29:56 Acute exacerbatio n of chronic congestive heart failure 457894042 Active 2023 Joslyn Daley NP [address], [address], [place], [address], [facility] 4 12:30:51 Lung disease with Sj gren's disease 294652505 Active 2023 Joslyn Daley NP [address] , [address], [place], [address], [facility] 4 12:31:19 Cirrhosis of liver 90453418 Active 2023 Joslyn Daley NP [address] [facility], [address], [place], [address], [facility] 4 12:31:54 Gastroesoph ageal reflux disease 703199535 Active 2023 Joslyn Daley NP [address] [facility] [facility], [address], [place], [address], [facility] 4 12:32:05 Hypertensiv e disorder 51409919 Active 2023 Joslyn Daley NP [address] [facility], [address], [place], [address], [facility] 4 12:51:46 Hyperlipide daniela 32956014 Active 2023 Joslyn Daley NP [address], [place], [address], [facility] 4 12:57:33 Dementia 45577174 Active 2023 Joslyn Daley NP [address] [facility], [address], [place], [address], [facility] 4 13:27:23 Congestive heart failure 28308382 Active 2023 JORGE A SUN NP [address] [facility], [address], [place], [address], [facility] 4 10:58:36 Closed fracture of right ankle 6720249425106 9103 Active 2023 Radha Velasco MD [address] [facility] [facility], [address], [place], [address], [facility] 4 15:20:45 Problem Notes None recorded. Medical Equipment None Reported. Allergies No known drug allergies Vitals Date Recorded Body height Heart rate Respiratory rate Body temperature Oxygen saturation Systolic And Diastolic Provider Name and Address Organization Details Last Updated DateTime 4 160.02 cm 78 /min 18 /min 97.6 [degF] 94 % 140/86 mm[Hg] JORGE A SUN NP [address] [facility], [address], [place], [address], [facility] 4 10:39:47 Date Recorded Body height Heart rate Respiratory rate Body temperature Oxygen saturation Systolic And Diastolic Provider Name and Address Organization Details Last Updated DateTime 4 160.02 cm 79 /min 18 /min 97.5 [degF] 95 % 106/66 mm[Hg] JORGE A SUN NP [address] [facility], [address], [place], [address], [facility] 4 10:13:41 Date Recorded Body height Heart rate Respiratory rate Body temperature Oxygen saturation Systolic And Diastolic Provider Name and Address Organization Details Last Updated DateTime 4 160.02 cm 84 /min 18 /min 98 [degF] 96 % 119/73 mm[Hg] JORGE A SUN NP [address] [facility], [address], [place], [address], [facility] 4 12:31:02 Date Recorded Body height Heart rate Respiratory rate Body temperature Oxygen saturation Inhaled oxygen flow rate Systolic And Diastolic Provider Name and Address Organization Details Last Updated DateTime 4 160.02 cm 68 /min 18 /min 96 [degF] 95 % 2 L/min 118/80 mm[Hg] JORGE A SUN NP [address] [facility], [address], [place], [address], [facility] 4 12:55:29 Date Recorded Body height Heart rate Respiratory rate Body temperature Oxygen saturation Inhaled oxygen flow rate Systolic And Diastolic Provider Name and Address Organization Details Last Updated DateTime 4 160.02 cm 68 /min 18 /min 97.3 [degF] 94 % 1 L/min 132/81 mm[Hg] JORGE A SUN NP [address] [facility], [address], [place], [address], [facility] 4 08:25:43 Social History Question Answer Notes LastModified by Balloon Details LastModified Time Tobacco Smoking Status Former Smoker Says a long time ago Radha Velasco MD [address] [facility], [address], [place], [address], [facility] 11/12/2023 19:16:54 Do You Have An Advance Directive? Yes Information not available 11/12/2023 What Is Your Code Status? Full Code Information not available 11/12/2023 Where Do You Live? Apartment Elderly Complex With Cousin Information not available 11/12/2023 Legal Guardian? No Informati on not available 11/12/2023 Do You Have A Medical Power Of Stamp Clerk? Yes Information not available 11/12/2023 What Was [...] recorded. Family History Nothing Reported Notes:Brother of [place] at 52. Mother and father had MIs Medical History No medical history recorded. Gynecological HistoryNo gynecological history recorded. Obstetrics History GPAL:G 0 P 0 0 0 0 Immunizations Vaccine Type Date Status Note Provider Nam e and Address Organization Details Recorded Time Tdap 2 completed [facility] 11/28/2023 15:02:34 Pneumococcal conjugate PCV 13 5 completed [facility] 11/28/2023 15:07:13 pneumococcal polysaccharide PPV23 2 completed [facility] 11/28/2023 15:07:29 pneumococcal polysaccharide PPV23 4 completed [facility] 11/28/2023 15:07:37 influenza, unspecified formulation 2 completed [facility] 11/28/2023 15:07:54 influenza, unspecified formulation 3 completed [facility] 11/28/2023 15:08:02 SARS-COV-2 (COVID-19) vaccine, UNSPECIFIED 1 completed [facility] 11/28/2023 15:08:15 SARS-COV-2 (COVID-19) vaccine, UNSPECIFIED 1 completed [facility] 11/28/2023 15:08:23 SARS-COV-2 (COVID-19) vaccine, UNSPECIFIED 1 completed [facility] 11/28/2023 15:08:33 SARS-COV-2 (COVID-19) vaccine, UNSPECIFIED 2 completed [facility] 11/28/2023 15:08:46 SARS-COV-2 (COVID-19) vaccine, UNSPECIFIED 2 completed [facility] 11/28/2023 15:08:53 zoster, unspecified formulation 5 completed [facility] 11/28/2023 15:09:14 zoster, unspecified formulation 1 completed [facility] 11/28/2023 15:09:44 zoster, unspecified formulation 1 completed [facility] 11/28/2023 15:09:54 Past Encounters Encounter ID Performer Location Encounter Start Date Encounter Closed Date Diagnosis/Indication Diagnosis SNOMED-CT Code Diagnosis ICD10 Code Diagnosis IMO Codes Diagnosis Note [id number] Joslyn Daley NP [facility] [address] [place] [address] 11/09/2023 11:54:39 11/13/2023 13:26:07 Acute on chronic hypercapnic respiratory failure 5890550434 106 J96.22 see above Pneumonitis 070776821 J1 8.9 resolved in hosp with bipap, [...] 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 780654361 M35.02 see above Acute exac erbation of chronic congestive heart failure 978510688 I50.9 see above Type 2 matias betes mellitus 94009519 E11.9 janumet xr 50-1000 mg er po dailymonit or BS daily while on prednisone dailyconst ant carb dietmonito r s/s of hyper/hypo glycemia Obstructiv e sleep apnea syndrome 14343250 G47.33 cpap per home use, family reports they will bring in tonight(di d not have CPAP last night)fu with pulmonolog y outpt Chronic ob structive pulmonary disease 61074527 J44.9 albuterol 2 puffs prn wheezing q 6hours hoursmonit or resp status, vitalssee pneumoniti s above Cirrhosis of liver 007 K74.60 hx ofcontspir onolactone 25 mg po q ammonitor closelycon forms analyst lfts as needed, hosp ones stable Gastroesop hageal reflux disease 226366031 K21.9 cont both meds per hospital recfamotid ine 20 mg po bidpantopr azole 40 mg po q ammonitor Hypertensive disorder 38 436989 I10 losartan 100 mg po q ammonitor vitals Hyperlipidemia 93354958 E78.5 pravastati n 40 mg po qhsmonitor Dementia 57621196 F03.90 11/09/23 SLUMS assessment : 07/16invok e pt, son is hcpsupport kate caresafety precaution smonitor [id number] Radha Velasco MD [address] [address] 11/12/2023 15:15:19 11/14/2023 15:19:58 Pneumonitis 411146838 J84.89 As above. Acute on c hronic hypercapnic respiratory failure 9537476724 106 J96.22 As above.Need to be sure we don't make her hypercarbi c again.Will ask for O2 to be titrated to 88-94%, has been 97% the last few checks.And will monitor q shift.F/U with pulmonary as planned. 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 934023028 M35.02 Had been weaned down to 0.5 L O2 by n/c on transfer here, but increased to 2 L over the weekend due to low sats.Juliana nue prolonged prednisone taper as ordered.Mo nitor resp status.F/U with pulmonary as planned. Acute exac erbation of chronic congestive heart failure 637930163 I50.33 Diuresed inpt.Juliana nue carvedilol 12.5 mg BID (decreased inpt), spironolac tone 25 mg qd, losartan 100 mg qd, and lasix 40 mg qd.Continu e low Na+ diet and O2 as needed.Mon itor resp. status, fluid status, wts and labs. Type 2 matias betes mellitus 28429020 E11.9 Sugars were quite high inpt.Will increase fingerstic ks to BID and add SSIContinu e Janumet XR 50-1000 mg ER qd.Increas e frequency of fingerstic ks if consistent ly high. Dementia 74846743 F03.90 Admission BIMs was , but SLUMs was 07/16.Has been invoked, but monitor for ability to uninvoke.C ontinue supportive care, expect decline.Mo nitor mood and behaviors. Psych consult prn. Obstructiv e sleep apnea syndrome 21122476 G47.33 Continue CPAP with sleep, pt sometimes refuses.En courage use and f/u with pulmonary as planned. Chronic ob structive pulmonary disease 01424409 J43.8 As above and albuterol MDI 2 puffs q 6 hrs prn.Monito r resp status. Cirrhosis of liver 007 K74.69 Unclear EtOH hx, but could also be due to Sjogren'sC ontinue spironolac tone 25 mg qdMonitor prn Gastroesop hageal reflux disease 288895474 K21.9 No current sxs.Contin ue famotidine 20 mg BID and pantoprazo le 40 mg qd.Monitor sxs Hypertensive disorder 38 598743 I10 Good control on meds as above.Lennie tor BP and labs. Hyperlipidemia 11317689 E78.49 Continue pravastati n 40 mg qhsMonitor labs as outpt. [id number] Tammie Rucker[address] [address] 11/16/2023 10:49:02 02/08/2024 09:14:25 Pneumonitis 881513085 J18.9 resolved on first hosp with bipap, [...] 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 786419527 M35.02 see above Type 2 matias betes mellitus 29438466 E11.9 janumet xr 50-1000 mg er po dailypoc QID AC and NS. today at 1130am 213 POCconstan t carb dietmonito r s/s of hyper/hypo glycemia Dementia 79208338 F03.90 11/09/23 SLUMS assessment : 07/16invok ed at [facility], pt son is hcp . will have him sign MOLSTsuppo rtive caresafety precaution smonitoral ert and oriented x2 today Obstructiv e sleep apnea syndrome 44773383 G47.33 cpap per home useO2 via NCfu with pulmonolog y outpt Chronic ob structive pulmonary disease 45487944 J44.9 albuterol 2 puffs prn wheezing q 6hours hoursmonit or resp status, vitalssee pneumoniti s above Cirrhosis of liver 007 K74.60 spironolac tone 25 mg po q am DC 2/2 hyperkalem iamonitor closelyrec ent hospital LFT wnl at prior hospital stay Gastroesop hageal reflux disease 311905279 K21.9 cont both meds per hospital recfamotid ine 20 mg po bidpantopr azole 40 mg po q ammonitor Hypertensive disorder 38 390087 I10 losartan decreased to 50mg daily 2/2 hyperkalem iamonitor vitals Hyperlipidemia 81901781 E78.5 pravastati n 40 mg po qhsmonitor Closed fra cture of right ankle 3935660967 4056967 S82.891D right LE splinted. NWBPT/OTfo llow up with orthooxyco done for pain effective. Acute hyperkalemia 30455 00 E87.5 corrected in ER with lokelmalos david lowered and aldactone DCBMP pending todaymonit or BMP weekly [id number] Radha Velasco MD [place] [address] [place], [place] [address] 11/19/2023 16:02:40 12/03/2023 11:57:22 Pneumonitis 668869483 J84.89 As above 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 521953316 M35.02 Improved from initial admission, continuing to need supplement al O2 to maintain sats.Juliana nuciara prolonged prednisone taper.F/U with pulmonary as planned. Type 2 matias betes mellitus 10327747 E11.65 Was quite high inpt, was started on Lantus and mealtime lispro.Con tinue Lantus 20 U qd, Janumet XR 50-1000 mg ER qd, Lispro 5U with meals and SS prn.Monito r fingerstic ks TID and HgA1C q 3 months. Dementia 19409433 F02.B0 Continues at mild/mod baseline, varies.Con tinue supportive care, expect decline.HC P invokedMon itor mood and behaviors. Psych consult prn. Obstructiv e sleep apnea syndrome 69061960 G47.33 Pt. sometimes refuses CPAP.Juliana radha to encourage her to use it for sleep.Lennie tor resp status.F/U as planned. Chronic ob structive pulmonary disease 61351996 J43.8 Will add albuterol nebs q 6 hrs prn as not on d/c med list, not needing recently, but good to have on board if needed.Als o on prednisone for Sjogren's, also will help COPD.Monit or resp status. Cirrhosis of liver 007 K74.69 Was on spironolac tone stopped due to hyperkalem iaMonitor sxs. Gastroesop hageal reflux disease 205665333 K21.9 Continue famotidine 20 mg BID and pantoprazo le 40 mg qd.Monitor sxs Hypertensive disorder 38 728755 I10 Good control on meds as above.Lennie tor BP and labs. Hyperlipidemia 33610475 E78.49 Continue pravastati n 40 mg qdMonitor labs yearly Closed fra cture of right ankle 7352105369 9345728 S82.891D Continue NWB to RLE.Will schedule APAP 1000 mg TID and continue oxy 5 mgNeeds PT/OT for strengthen ing, balance, mobility training, safety and function.C ontinue fall precaution s.Monitor for safety. Acute hyperkalemia 74965 00 E87.5 Now WNL.Monito r Chronic di astolic heart failure 925050953 I50.32 Diuresed during 1st hospitaliz ation.Cont inue carvedilol 12.5 mg BID (decreased inpt), spironolac tone 25 mg qd, losartan 100 mg qd, and lasix 40 mg qd.Continu e low Na+ diet and O2 as needed.Mon itor resp. status, fluid status, wts and labs. [id number] JORGE A SUN NP [place] [address] [place], [place] [address] 11/20/2023 10:19:50 11/21/2023 16:38:46 Closed fracture of right ankle 3898789524 2751044 S82.891D Continue NWB to RLE.Splint in placeWill schedule APAP 1000 mg TID and continue oxy 5 mg q 4 hrs prn - monitor use and effect.Jimmie nd VS, labs, CSM RLE for change.Fol low up with Ortho as sched. - update with concernsNe eds PT/OT for strengthen ing, balance, mobility training, safety and function.C ontinue fall precaution s.Monitor for safety. Pneumonitis 203856081 J1 8.9 Resolved on first hosp with [...] 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 023848005 M35.02 see above - continue prednisone taperFollo w up with Pulmonolog y outpt. Type 2 matias betes mellitus 20086907 E11.9 Most recent A1C 7.9% and 8.1%Contin ue current meds:janum et xr 50-1000 mg qdLantus 20 units q HSlispro 5 untis tid with meals in addition to SSI dosingcons tant carb diet - encourage diet compliance - poor eating habits so far while here - sweets, carbs, fast food brought in by ezio garcia s/s of hyper/hypo glycemia; adjust tx. prn Dementia 37551830 F03.90 11/09/23 SLUMS assessment : 07/16invok ed at [facility], pt son is hcpNot on meds at this time.Juliana nue supportive caremonito r mood, behaviorsP sych eval prn Obstructiv e sleep apnea syndrome 70439120 G47.33 CPAP per home use - continueO2 via NC during the day - goal is to keep O2 sats +/- 90% to avoid CO2 retention. fu with pulmonolog y outpt Chronic ob structive pulmonary disease 71371232 J44.9 Continue O2 during day, attempt titration as able.Keep sats +/- 90% due to concern of CO2 retention. Continue to monitor VS, sats, LS, labs closelyFol low up with Pulmonary outpt. Cirrhosis of liver 007 K74.60 Off aldactone due to high K 6.6 in hosp.On lasix now for diuresis 40 mg qdMonitor LFTsMonito r mentation, NH3 levels prn Gastroesop hageal reflux disease 769069747 K21.9 Currently on 2 meds per hosp. -famotidin e 20 mg po bidpantopr azole 40 mg po q amContinue and monitor sx.Unclear as why she is on 2 - ? due to prednisone use?- consider dose reduction or stopping one of the meds if remains sx. free. Hypertensive disorder 38 029868 I10 Meds adjusted in hosp. due to high KAldactone stopped, remains on lasix 40 mg qd.Continu es on losartan 50mg dailymonit or vitals, labs - adjust tx. prn Hyperlipidemia 12967896 E78.5 continue pravastati n 40 mg po qhsmonitor Acute hyperkalemia 13428 00 E87.5 K 6.6 [facility] corrected in hosp. with albuterol, insulin D5, lokelma, and calcium gluconate. Losartan was held and then restarted at lower dose (50 mg qd)Spirono lactone was d/c'd, lasix continued (40 mg qd)Repeat K yesterday 3/4 stable - 4.2monitor BMP weekly for now. Congestive heart failure 14671160 I50.9 Laie partial cause of resp. failure as above.Cont inue:low salt diet - encourage diet compliance (family bringing fast food)lasix 40 mg qdLosartan 50 mg qdAdd daily weightsMon itor LS, sats, labs, weights closely for decompensa tion. [id number] JORGE A SUN NP [place] [address] [address] [place] [address] 11/22/2023 09:01:55 11/27/2023 13:31:16 Closed fracture of right ankle 3765236367 7707308 S82.891D Continue NWB to RLE.Splint in placeNow on scheduled APAP 1000 mg TID and oxycodone 5 mg q 4 hrs prn - monitor use and effect.Jimmie nd VS, labs, CSM RLE for change.Fol low up with Ortho as sched. - update with concernsNe eds PT/OT for strengthen ing, balance, mobility training, safety and function.C ontinue fall precaution s.Monitor for safety. Acute hyperkalemia 69731 00 E87.5 K 6.6 on admit to [facility] corrected in hosp. with albuterol, insulin D5, lokelma, and calcium gluconate. Losartan was held and then restarted at lower dose (50 mg qd)Spirono lactone was d/c'd, lasix continued (40 mg qd)Repeat K yesterday 3/4 stable - 4.2monitor BMP weekly for now. Pneumonitis 352382366 J1 8.9 Resolved on first hosp with [...] 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 743443379 M35.02 see above - continue prednisone taperFollo w up with Pulmonolog y outpt. Congestive heart failure 67895760 I50.9 Laie partial cause of resp. failure as above.Cont inue:low salt diet - encourage diet compliance (family bringing fast food)lasix 40 mg qdLosartan 50 mg qdMonitor daily weightsMon itor LS, sats, labs, weights closely for decompensa tion. Type 2 matias betes mellitus 09333136 E11.9 Most recent A1C 7.9% and 8.1%Contin ue current meds:janum et xr 50-1000 mg qdLantus 20 units q HSlispro 5 untis tid with meals in addition to SSI dosingcons tant carb diet - encourage diet compliance - poor eating habits so far while here - sweets, carbs, fast food brought in by ezio garcia s/s of hyper/hypo glycemia; adjust tx. prn Dementia 80651501 F03.90 11/09/23 SLUMS assessment : 07/16invok ed at [facility], pt son is hcpNot on meds at this time.Juliana nue supportive caremonito r mood, behaviorsP sych eval prn Obstructiv e sleep apnea syndrome 30218195 G47.33 CPAP per home use - continueO2 via NC during the day - goal is to keep O2 sats +/- 90% to avoid CO2 retention. fu with pulmonolog y outpt Chronic ob structive pulmonary disease 99688621 J44.9 Continue O2 during day, attempt titration as able.Keep sats +/- 90% due to concern of CO2 retention. Continue to monitor VS, sats, LS, labs closelyFol low up with Pulmonary outpt. Cirrhosis of liver 007 K74.60 Off aldactone due to high K 6.6 in hosp.On lasix now for diuresis 40 mg qdMonitor LFTsMonito r mentation, NH3 levels prn Gastroesop hageal reflux disease 300523862 K21.9 Currently on 2 meds per hosp. -famotidin e 20 mg po bidpantopr azole 40 mg po q amContinue and monitor sx.Unclear as why she is on 2 - ? due to prednisone use?- consider dose reduction or stopping one of the meds if remains sx. free. Hypertensive disorder 38 379154 I10 Meds adjusted in hosp. due to high KAldactone stopped, remains on lasix 40 mg qd.Continu es on losartan 50mg dailymonit or vitals, labs - adjust tx. prn Hyperlipidemia 41567992 E78.5 continue pravastati n 40 mg po qhsmonitor [id number] JORGE A SUN, CLAUD[place] [address] [place] [address] 11/27/2023 09:03:46 11/29/2023 11:47:06 Closed fracture of right ankle 1984020159 9731934 S82.891D Continue NWB to RLE.Seen by Ortho [...] fall precaution s.Monitor for safety. Acute hyperkalemia 85856 00 E87.5 K 6.6 on admit to [facility] corrected in hosp. with albuterol, insulin D5, lokelma, and calcium gluconate. Losartan was held and then restarted at lower dose (50 mg qd)Spirono lactone was d/c'd, lasix continued (40 mg qd)Repeat K yesterday 3/4 stable - 4.2monitor BMP weekly - not being done, will check in am then q sunday x 3 Pneumonitis 475601143 J1 8.9 Resolved on first hosp with [...] 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 993837780 M35.02 see above - complete prednisone taperFollo w up with Pulmonolog y outpt. Congestive heart failure 11267336 I50.9 Laie partial cause of resp. failure as above.Cont inue:low salt diet - encourage diet compliance (family bringing fast food)lasix 40 mg qdLosartan 50 mg qdMonitor daily weights - not being recorded routinely - rerequeste dBMP in am, then q moday x 3Monitor LS, sats, labs, weights closely for decompensa tion. Type 2 matias betes mellitus 72233236 E11.9 Most recent A1C 7.9% and 8.1%Contin ue current meds:janum et xr 50-1000 mg qdLantus 20 units q HSlispro 5 untis tid with meals in addition to SSI dosingcons tant carb diet - encourage diet compliance - poor eating habits so far while here - sweets, carbs, [facility] s/s of hyper/hypo glycemia; adjust tx. prn Dementia 88642684 F03.90 11/09/23 SLUMS assessment : 07/16invok ed at [facility], pt son is hcpNot on meds at this time.Juliana nue supportive caremonito r mood, behaviorsP sych eval prn Obstructiv e sleep apnea syndrome 77993445 G47.33 CPAP per home use - continueO2 via NC during the day - goal is to keep O2 sats +/- 90% to avoid CO2 retention. fu with pulmonolog y outpt Chronic ob structive pulmonary disease 59339761 J44.9 Continue O2 during day, attempt titration as able.Keep sats +/- 90% due to concern of CO2 retention. Continue to monitor VS, sats, LS, labs closelyFol low up with Pulmonary outpt. Cirrhosis of liver 007 K74.60 Off aldactone due to high K 6.6 in hosp.On lasix now for diuresis 40 mg qdMonitor LFTsMonito r mentation, NH3 levels prn Gastroesop hageal reflux disease 256030803 K21.9 Currently on 2 meds per hosp. -famotidin e 20 mg po bidpantopr azole 40 mg po q amContinue and monitor sx.Unclear as why she is on 2 - ? due to prednisone use?- consider dose reduction or stopping one of the meds if remains sx. free. Hypertensive disorder 38 503302 I10 Meds adjusted in hosp. due to high KAldactone stopped, remains on lasix 40 mg qd.Continu es on losartan 50mg dailymonit or vitals, labs - adjust tx. prn Hyperlipidemia 82523206 E78.5 continue pravastati n 40 mg po qhsmonitor [id number] JORGE A SUN NP [place] [address] [address] [place], [place] [address] 11/29/2023 09:10:48 12/03/2023 12:05:19 Closed fracture of right ankle [id number] 0254129 S82.891D Continue NWB to RLE.Seen by Ortho 11/25, fiberglass cast in place, +CSM R toesNow on scheduled APAP 1000 mg TIDTrend VS, labs, CSM RLE for change.Fol low up with Ortho as sched. - update with concernsNe eds PT/OT for strengthen ing, balance, mobility training, safety and function.C ontinue fall precaution s.Monitor for safety. Acute hyperkalemia 79889 00 E87.5 K 6.6 on admit to [facility] corrected in hosp. with albuterol, insulin D5, lokelma, and calcium gluconate. 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 12/03 Congestive heart failure 30587478 I50.9 Laie partial cause of resp. failure as above.Cont [...] f/u 12/03 Type 2 matias betes mellitus 83937528 E11.9 Most recent A1C 7.9% and 8.1%Contin [...] of hyper/hypo glycemia; adjust tx. prn Dementia [id number] F03.90 11/09/23 SLUMS assessment : 07/16invok ed at [facility], pt son is hcpNot on meds at this time.Juliana nue supportive caremonito r mood, behaviorsP sych eval prn Obstructiv e sleep apnea syndrome 42014638 G47.33 CPAP per home use - continueO2 via NC during the day - goal is to keep O2 sats +/- 90% to avoid CO2 retention. fu with pulmonolog y 12/03 Chronic ob structive pulmonary disease 91457094 J44.9 Continue O2 during day, attempt titration [...] x 1 12/02 Gastroesop hageal reflux disease 804331153 K21.9 Currently on 2 meds per hosp. -famotidin e 20 mg po bidpantopr azole 40 mg po q amContinue and monitor sx.Unclear as why she is on 2 - ? due to prednisone use?- consider dose reduction or stopping one of the meds if remains sx. free. Hypertensive disorder 38 464517 I10 Meds adjusted in hosp. due to high KAldactone stopped, remains on lasix 40 mg qd.Continu es on losartan 50mg dailymonit or vitals, labs - adjust tx. prn Hyperlipidemia 38266730 E78.5 continue pravastati n 40 mg po qhsmonitor [id number] JORGE A SUN, CLAUDIA [place] [address] [place] [address] 12/04/2023 10:00:45 12/06/2023 13:01:40 Closed fracture of right ankle [id number] 1392741 S82.891D Continue NWB to RLE.Seen by Ortho [...] fall precaution s.Monitor for safety. Acute hyperkalemia 28500 00 E87.5 K 6.6 on admit to [facility] corrected in hosp. with albuterol, insulin D5, lokelma, and calcium gluconate. Losartan was held and then restarted at lower dose (50 mg qd)Spirono lactone was d/c'd, lasix continued (40 mg qd)Repeat K stable - 4.8monitor BMP weekly - not being done, will check in am then q sunday x 3 Pneumonitis 721014884 J1 8.9 Resolved on first hosp with [...] XR 11/28 NAD - need copy from [facility] mert VS, sats, LS, labsUpdate Pulmonolog y with concerns - has appt. today 12/[address] 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 12/03 Congestive heart failure 32034402 I50.9 Laie partial cause of resp. failure as above.Cont inue:low salt diet - encourage diet compliance (family bringing fast food)lasix 40 mg qdOff aldactone due to high K, but may need to use intermitte ntlyLosart an 50 mg qdMonitor daily weightsBMP q sunday x 3Monitor LS, sats, labs, weights closely for decompensa tion.Has pulm. f/u 12/03 Type 2 matias betes mellitus 32356095 E11.9 Most recent A1C 7.9% and 8.1%BS [...] of hyper/hypo glycemia; adjust tx. prn Dementia 71630389 F03.90 11/09/23 SLUMS assessment : 07/16invok ed at [facility], pt son is hcpNot on meds at this time.Juliana nue supportive caremonito r mood, behaviorsP sych eval prn Obstructiv e sleep apnea syndrome 11626246 G47.33 CPAP per home use - continueO2 via NC during the day - goal is to keep O2 sats +/- 90% to avoid CO2 retention. fu with pulmonolog y 12/03 Chronic ob structive pulmonary disease 61301089 J44.9 Continue O2 during day, attempt titration as able.Keep sats +/- 90% due to concern of CO2 retention. Continue to monitor VS, sats, LS, labs closelyFol low up with Pulmonary outpt. 12/03 Cirrhosis of liver 73427 007 K74.60 Off aldactone due to high K 6.6 in hosp.On lasix now for diuresis 40 mg qdMonitor LFTsMonito r mentation, NH3 level 45 Gastroesop hageal reflux disease 604267257 K21.9 Currently on 2 meds per hosp. -famotidin e 20 mg po bidpantopr azole 40 mg po q amContinue and monitor sx.Unclear as why she is on 2 - ? due to prednisone use?- consider dose reduction or stopping one of the meds if remains sx. free. Hypertensive disorder 38 933845 I10 Meds adjusted in hosp. due to high KAldactone stopped, remains on lasix 40 mg qd.Continu es on losartan 50mg dailymonit or vitals, labs - adjust tx. prn Hyperlipidemia 70273939 E78.5 continue pravastati n 40 mg po qhsmonitor [id number] JORGE A SUN NP [address] [place] [address] 12/06/2023 08:40:54 12/10/2023 11:54:53 Closed fracture of right ankle [id number] 5758618 S82.891D Continue NWB to RLE.Seen by Ortho [...] fall precaution s.Monitor for safety. Acute hyperkalemia 69022 00 E87.5 K 6.6 on admit to [facility] corrected in hosp. with albuterol, insulin D5, lokelma, and calcium gluconate. Losartan was held and then restarted at lower dose (50 mg qd)Spirono lactone was d/c'd, lasix continued (40 mg qd)Repeat K stable - 4.8monitor BMP weekly - not being done, will check in am then q sunday x 3 Pneumonitis 528037520 J1 8.9 Resolved on first hosp with [...] XR 11/28 NAD - need copy from [facility] itor VS, sats, LS, labsUpdate Pulmonolog y with concerns - has appt. 12/[address] 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 12/10Adding prn albuterol updrafts q 4 prn as nsg did report some wheezing at times. Congestive heart failure 29470070 I50.9 Laie partial cause of resp. failure as above.Cont inue:low salt diet - encourage diet compliance (family bringing fast food)lasix 40 mg qdOff aldactone due to high K, but may need to use intermitte ntlyLosart an 50 mg qdMonitor daily weightsBMP q sunday x 3Monitor LS, sats, labs, weights closely for decompensa tion.Has pulm. f/u 12/03 Type 2 matias betes mellitus 70802838 E11.9 Most recent A1C 7.9% and 8.1%BS 100s-200sC ontinue current meds:janum et xr 50-1000 mg qdLantus 20 units q HSlispro 5 untis tid with meals in addition to SSI dosingcons tant carb diet - encourage diet compliance - poor eating habits so far while here - sweets, carbs, [facility] s/s of hyper/hypo glycemia; adjust tx. prn Dementia 59877939 F03.90 11/09/23 SLUMS assessment : 07/16invok ed at [facility], pt son is hcpNot on meds at this time.Juliana nue supportive caremonito r mood, behaviorsP sych eval prn Obstructiv e sleep apnea syndrome 43821219 G47.33 CPAP per home use - continueO2 via NC during the day - goal is to keep O2 sats +/- 90% to avoid CO2 retention. fu with pulmonolog y 12/03 Chronic ob structive pulmonary disease 09196593 J44.9 Continue O2 during day, attempt titration [...] NH3 level 45 Gastroesop hageal reflux disease 034030851 K21.9 Currently on 2 meds per hosp. -famotidin e 20 mg po bidpantopr azole 40 mg po q amContinue and monitor sx.Unclear as why she is on 2 - ? due to prednisone use?- consider dose reduction or stopping one of the meds if remains sx. free. Hypertensive disorder 38 415833 I10 Meds adjusted in hosp. due to high KAldactone stopped, remains on lasix 40 mg qd.Continu es on losartan 50mg dailymonit or vitals, labs - adjust tx. prn Hyperlipidemia 37740572 E78.5 continue pravastati n 40 mg po qhsmonitor [id number] JORGE A SUN, CLAUDIA [address] [address] 12/11/2023 09:20:29 12/13/2023 11:54:49 Closed fracture of right ankle [id number] 1993751 S82.891D Continue NWB to RLE.Seen by Ortho 11/25, fiberglass cast in place, +CSM R toesContin ue prn APAP for pain - currently comfortabl e.Trend VS, labs, CSM RLE for change.Fol low up with Ortho as sched. - update with concernsNe eds PT/OT for strengthen ing, balance, mobility training, safety and function.C ontinue fall precaution s.Monitor for safety. Acute hyperkalemia 12975 00 E87.5 K 6.6 [facility] with albuterol, insulin D5, lokelma, and calcium gluconate. 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 12/10Added prn albuterol updrafts q 4 prn as nsg did report some wheezing at times. Congestive heart failure 71392412 I50.9 Laie partial cause of resp. failure as above.Cont inue:low salt diet - encourage diet compliance (family bringing fast food)lasix 40 mg qdOff aldactone due to high K, but may need to use intermitte ntlyLosart an 50 mg qdMonitor daily weightsBMP q sunday x 3Monitor LS, sats, labs, weights closely for decompensa tion.Has pulm. f/u 12/10 Type 2 matias betes mellitus 90559695 E11.9 Most recent A1C 7.9% and 8.1%BS 100s, occ. 200sContin ue current meds:janum et xr 50-1000 mg qdLantus 20 units q HSlispro 5 untis tid with meals in addition to SSI dosingcons tant carb diet - encourage diet compliance - poor eating habits so far while here - sweets, carbs, fast food brought in by [facility] tor s/s of hyper/hypo glycemia; adjust tx. prn Dementia 26527528 F03.90 11/09/23 SLUMS assessment : 07/16invok ed at [facility], pt son is hcpNot on meds at this time.Juliana nue supportive caremonito r mood, behaviorsP sych eval prn Obstructiv e sleep apnea syndrome 13872831 G47.33 CPAP per home use - continueO2 via NC during the day - goal is to keep O2 sats +/- 90% to avoid CO2 retention. fu with pulmonolog y 12/10 Chronic ob structive pulmonary disease 00753158 J44.9 Continue O2 during day, attempt titration [...] NH3 level 41 Gastroesop hageal reflux disease 473605864 K21.9 Currently on 2 meds per hosp. -famotidin e 20 mg po bidpantopr azole 40 mg po q amContinue and monitor sx.Unclear as why she is on 2 - ? due to prednisone use?- consider dose reduction or stopping one of the meds if remains sx. free. Hypertensive disorder 38 702973 I10 Meds adjusted in hosp. due to high KAldactone stopped, remains on lasix 40 mg qd.Continu es on losartan 50mg dailymonit or vitals, labs - adjust tx. prn Hyperlipidemia 70203563 E78.5 continue pravastati n 40 mg po qhsmonitor [id number] JORGE A SUN NP [place] [address] [place] [address] 12/13/2023 10:23:57 12/19/2023 19:45:48 Closed fracture of right ankle [id number] 4895207 S82.891D Continue NWB to RLE.Seen by Ortho 11/25, fiberglass cast in place, +CSM R toesContin ue prn APAP for pain - currently comfortabl e.Trend VS, labs, CSM RLE for change.Fol low up with Ortho as sched. - update with concernsNe eds PT/OT for strengthen ing, balance, mobility training, safety and function.C ontinue fall precaution s.Monitor for safety. Acute hyperkalemia 96542 00 E87.5 K 6.6 on admit to [facility] corrected in hosp. with albuterol, insulin D5, lokelma, and calcium gluconate. 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 12/10 - checking CXR and chest CT, sleep study with follow up after testing.Ad ded prn albuterol updrafts q 4 prn as nsg did report some wheezing at times. Congestive heart failure 42010411 I50.9 Laie partial cause of resp. failure as above.Cont inue:low salt diet - encourage diet compliance (family bringing fast food)lasix 40 mg qdOff aldactone due to high K, but may need to use intermitte ntlyLosart an 50 mg qdMonitor daily weightsBMP q sunday x 3Monitor LS, sats, labs, weights closely for decompensa tion.Had pulm. f/u 12/10 Type 2 matias betes mellitus 21354684 E11.9 Most recent A1C 7.9% and 8.1%BS [...] of hyper/hypo glycemia; adjust tx. prn Dementia 73737355 F03.90 11/09/23 SLUMS assessment : 07/16invok ed at [facility], pt son is hcpNot on meds at this time.Juliana nue supportive caremonito r mood, behaviorsP sych eval prn Obstructiv e sleep apnea syndrome 23858121 G47.33 CPAP per home use - continueO2 via NC during the day - goal is to keep O2 sats +/- 90% to avoid CO2 retention. fu with pulmonolog y 12/10 - to get repeat sleep study then follow up appt. Chronic ob structive pulmonary disease 14118277 J44.9 Continue O2 during day, attempt titration [...] NH3 level 41 Gastroesop hageal reflux disease 569661702 K21.9 Currently on 2 meds per hosp. -famotidin e 20 mg po bidpantopr azole 40 mg po q amContinue and monitor sx.Unclear as why she is on 2 - ? due to prednisone use?- consider dose reduction or stopping one of the meds if remains sx. free. Hypertensive disorder 38 845219 I10 Meds adjusted in hosp. due to high KAldactone stopped, remains on lasix 40 mg qd.Continu es on losartan 50mg dailymonit or vitals, labs - adjust tx. prn Hyperlipidemia 78998007 E78.5 continue pravastati n 40 mg po qhsmonitor [id number] JORGE A SUN, CLAUDIA [place] [address] [address], [place] [address] 12/18/2023 10:45:27 12/19/2023 19:51:09 Closed fracture of right ankle [id number] 3510468 S82.891D Continue NWB to RLE.Seen by Ortho 11/25, fiberglass cast in placeNo pain - continue prn APAP.Trend VS, labs, CSM RLE for change.Fol low up with Ortho as sched. - update with concernsNe eds PT/OT for strengthen ing, balance, mobility training, safety and function.C ontinue fall precaution s.Monitor for safety. Acute hyperkalemia 12651 00 E87.5 K 6.6 on admit to [facility] corrected in hosp. with albuterol, insulin D5, lokelma, and calcium gluconate. 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 Congestive heart failure 71655520 I50.9 Laie partial cause of resp. failure as above.Cont inue:low salt diet - encourage diet compliance (family bringing fast food)lasix 40 mg qdOff aldactone due to high K, but may need to use intermitte ntlyLosart an 50 mg qdMonitor daily weightsBMP q sunday x 3Monitor LS, sats, labs, weights closely for decompensa tion.Had pulm. f/u 12/10 Type 2 matias betes mellitus 54942524 E11.9 Most recent A1C 7.9% and 8.1%BS [...] Pred. dose to 5 mg qd Dementia 54532370 F03.90 11/09/23 SLUMS assessment : 07/16invok ed at [facility], pt son is hcpNot on meds at this time.Juliana nue supportive caremonito r mood, behaviorsP sych eval prn Obstructiv e sleep apnea syndrome 00673426 G47.33 CPAP per home use - continue - encourage compliance , refuses use at times per staff.O2 via NC during the day - goal is to keep O2 sats +/- 90% to avoid CO2 retention. fu with pulmonolog y 12/10 - to get repeat sleep study then follow up appt. Chronic ob structive pulmonary disease 54229246 J44.9 Continue O2 during day, attempt titration [...] NH3 level 29 Gastroesop hageal reflux disease 036728231 K21.9 Currently on 2 meds per hosp. -famotidin e 20 mg po bidpantopr azole 40 mg po q amContinue and monitor sx.Unclear as why she is on 2 - ? due to prednisone use?- consider dose reduction or stopping one of the meds if remains sx. free. Hypertensive disorder 38 760358 I10 Meds adjusted in hosp. due to high KAldactone stopped, remains on lasix 40 mg qd.Continu es on losartan 50mg dailymonit or vitals, labs - adjust tx. prn Hyperlipidemia 66628137 E78.5 continue pravastati n 40 mg po qhsmonitor [id number] JORGE A SUN, CLAUDIA [address] [place] [address] 12/20/2023 10:39:01 12/27/2023 15:07:31 Closed fracture of right ankle [id number] 1229691 S82.891D No changeCont inue NWB to RLE.Seen by Ortho 11/25, fiberglass cast in placeDenie s pain - continue prn APAP.Trend VS, labs, CSM RLE for change.Fol low up with Ortho as sched. - update with concernsNe eds PT/OT for strengthen ing, balance, mobility training, safety and function.C ontinue fall precaution s.Monitor for safety. Acute hyperkalemia 40408 00 E87.5 K 6.6 on admit to [facility] corrected in hosp. with albuterol, insulin D5, lokelma, and calcium gluconate. 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 Congestive heart failure 00616258 I50.9 Laie partial cause of resp. failure as above.Cont inue:low salt diet - encourage diet compliance ([facility] bringing fast food)lasix 40 mg qdOff aldactone due to high K, but may need to use intermitte ntlyLosart an 50 mg qdMonitor daily weightsBMP q sunday x 3Monitor LS, sats, labs, weights closely for decompensa tion.Had pulm. f/u 12/10 Type 2 matias betes mellitus 71330389 E11.9 Most recent A1C 7.9% and 8.1%BS [...] Pred. dose to 5 mg qd Dementia 65984606 F03.90 11/09/23 SLUMS assessment : 07/16invok ed at [facility], pt son is hcpNot on meds at this time.Juliana nue supportive caremonito r mood, behaviorsP sych eval prn Obstructiv e sleep apnea syndrome 89814814 G47.33 CPAP per home use - continue - encourage compliance , refuses use at times per staff.O2 via NC during the day - goal is to keep O2 sats +/- 90% to avoid CO2 retention. fu with pulmonolog y 12/10 - to get repeat sleep study then follow up appt. Chronic ob structive pulmonary disease 25293654 J44.9 Continue O2 during day, attempt titration [...] NH3 level 29 Gastroesop hageal reflux disease 225723231 K21.9 Currently on 2 meds per hosp. -famotidin e 20 mg po bidpantopr azole 40 mg po q amContinue and monitor sx.Unclear as why she is on 2 - ? due to prednisone use?- consider dose reduction or stopping one of the meds if remains sx. free. Hypertensive disorder 38 968930 I10 Meds adjusted in hosp. due to high KAldactone stopped, remains on lasix 40 mg qd.Continu es on losartan 50mg dailymonit or vitals, labs - adjust tx. prn Hyperlipidemia 85734921 E78.5 continue pravastati n 40 mg po qhsmonitor [id number] JORGE A SUN NP [address] [address] 12/25/2023 09:28:18 12/27/2023 15:25:29 Closed fracture of right ankle [id number] 5543071 S82.891D Ortho consult 12/23Now in walking bootWBATCo ntinue PT OT for strengthen ing, balance, mobility training, safety and function.D enies pain - continue prn APAP.Trend VS, labs, CSM RLE for change.Ort ho follow up in 6 wks, update with concernsCo ntinue fall precaution s.Monitor for safety. Acute hyperkalemia 67386 00 E87.5 Now resolved.K 6.6 on admit to [facility] corrected in hosp. with albuterol, insulin D5, lokelma, and calcium gluconate. 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 Congestive heart failure 98391464 I50.9 Laie partial cause of resp. failure as above.Cont inue:low salt diet - encourage diet compliance (family bringing fast food)lasix 40 mg qdLosartan 50 mg qdMonitor daily weightsBMP stableMoni tor LS, sats, labs, weights closely for decompensa tion.Off aldactone due to high K, but may need to use intermitte ntly.Had pulm. f/u 12/10 Type 2 matias betes mellitus 28538613 E11.9 Most recent A1C 7.9% and 8.1%BS [...] qd x 7 d, then stop Dementia 91540238 F03.90 11/09/23 SLUMS assessment : 07/16invok ed at [facility], pt son is hcpNot on meds at this time.Juliana nue supportive caremonito r mood, behaviorsP sych eval prn Obstructiv e sleep apnea syndrome 39947570 G47.33 CPAP per home use - continue - encourage compliance , refuses use at times per staff.O2 via NC during the day - goal is to keep O2 sats +/- 90% to avoid CO2 retention. Had f/u with pulmonolog y 12/10 - to get repeat sleep study then follow up appt. Chronic ob structive pulmonary disease 98624283 J44.9 Continue O2 during day, attempt titration [...] NH3 level WNR Gastroesop hageal reflux disease 590343934 K21.9 Currently on 2 meds per hosp. -famotidin e 20 mg po bidpantopr azole 40 mg po q amContinue and monitor sx.Unclear as why she is on 2 - ? due to prednisone use?Plan - reduce pantoprazo le to 20 mg qd.Monitor sx. Hypertensive disorder 38 725288 I10 VSSMeds adjusted in hosp. due to high KAldactone stopped, remains on lasix 40 mg qd.Continu es on losartan 50mg dailymonit or vitals, labs - adjust tx. prn Hyperlipidemia 56146195 E78.5 continue pravastati n 40 mg po qhsmonitor [id number] JORGE A SUN NP [place] [address] [place] [address] 12/27/2023 12:30:33 12/27/2023 15:31:20 Closed fracture of right ankle 6000309537 2399141 S82.891D Ortho consult 12/23Now in walking bootWBATCo ntinue PT OT for strengthen ing, balance, mobility training, safety and function.D enies pain - continue prn APAP.Trend VS, labs, CSM RLE for change.Ort ho follow up in 6 wks, update with concernsCo ntinue fall precaution s.Monitor for safety. Acute hyperkalemia 09892 00 E87.5 Now resolved.K 6.6 on admit to [facility] corrected in hosp. with albuterol, insulin D5, lokelma, and calcium gluconate. 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 Congestive heart failure 78737021 I50.9 Laie partial cause of resp. failure as above.Cont inue:low salt diet - encourage diet compliance (family bringing fast food)lasix 40 mg qdLosartan 50 mg qdMonitor daily weights - creeping up but does not appear fluid overloaded at this time.[facility], sats, labs, weights closely for decompensa tion.Off aldactone due to high K, but may need to use intermitte ntly.Had pulm. f/u 12/10 Type 2 matias betes mellitus 63497018 E11.9 Most recent A1C 7.9% and 8.1%BS 100s, occ. 200sContin ue current meds:janum et xr 50-1000 mg qdLantus 20 units q HSlispro 5 untis tid with meals in addition to SSI dosingcons tant carb diet - encourage diet compliance - poor eating habits so far while here - sweets, carbs, fast food brought in by [facility] s/s of hyper/hypo glycemia; adjust tx. prnReducin g Pred. dose to 2.5 mg qd x 7 d, then stop Dementia 30818797 F03.90 11/09/23 SLUMS assessment : 07/16invok ed at [facility], pt son is hcpNot on meds at this time.Juliana nue supportive caremonito r mood, behaviorsP sych eval prn Obstructiv e sleep apnea syndrome [id number] G47.33 CPAP per home use - continue - encourage compliance , refuses use at times per staff.O2 via NC during the day - goal is to keep O2 sats +/- 90% to avoid CO2 retention. Had f/u with pulmonolog y 12/10 - to get repeat sleep study then follow up appt. Chronic ob structive pulmonary disease [id number] J44.9 Continue O2 during day, attempt titration [...] NH3 level WNR Gastroesop hageal reflux disease [id number] K21.9 Currently on 2 meds per hosp. -famotidin e 20 mg po bidpantopr azole 40 mg po q am - reduced to 20 mg qd on ontinu e and monitor sx.Unclear as why she is on 2 - ? due to prednisone use? Monitor sx. Hypertensive disorder 38 113176 I10 VSSMeds adjusted in hosp. due to high KAldactone stopped, remains on lasix 40 mg qd.Continu es on losartan 50mg dailymonit or vitals, labs - adjust tx. prn Hyperlipidemia 07689386 E78.5 continue pravastati n 40 mg po qhsmonitor [id number] JORGE A SUN NP [address] [place] [address] 12/31/2023 12:12:16 01/03/2024 19:40:40 Closed fracture of right ankle [id number] S82.891D Ortho consult 12/23Now in walking [facility] s been working with PT OT for strengthen ing, balance, mobility training, safety and function.G oal is home the end of the week with support of family and services.D enies pain - continue prn APAP.Trend VS, labs, CSM RLE for change.Ort ho follow up in about 4 wks, update with concernsCo ntinue fall precaution s.Monitor for safety. Acute hyperkalemia 97062 00 E87.5 Now resolved.K 6.6 on admit to [facility] corrected in hosp. with albuterol, insulin D5, lokelma, and calcium gluconate. Losartan was held and then restarted at lower dose (50 mg qd)Spirono lactone was d/c'd, lasix continued (40 mg qd)Repeat K stable here since admission Pneumonitis [id number] J1 8.9 Resolved on first hosp with [...] 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 [id number] M35.02 see above - completing prednisone taper [...] at times - continue. Congestive heart failure 15927172 I50.9 Laie partial cause of resp. failure as above.Cont [...] f/u 12/10 Type 2 matias betes mellitus 55598360 E11.9 Most recent A1C 7.9% and 8.1%BS 100s, occ. 200sContin ue current meds:janum et xr 50-1000 mg qdLantus 20 units q HSlispro 5 untis tid with meals in addition to SSI dosingcons tant carb diet - encourage diet compliance - poor eating habits so far while here - sweets, carbs, fast food brought in by [employer] jose s/s of hyper/hypo glycemia; adjust tx. prn Dementia 55237967 F03.90 11/09/23 [facility] assessment : 07/16invok ed at [facility], pt son is hcpNot on meds at this time.Juliana nue supportive caremonito r mood, behaviorsP sych eval prn Obstructiv e sleep apnea syndrome 87975634 G47.33 CPAP per home use - continue - encourage compliance , refuses use at times per staff.O2 via NC during the day - goal is to keep O2 sats +/- 90% to avoid CO2 retention. Had f/u with pulmonolog y 12/10 - to get repeat sleep study then follow up appt. Chronic ob structive pulmonary disease 98269779 J44.9 Continue O2 during day, attempt titration [...] NH3 level WNR Gastroesop hageal reflux disease 871963167 K21.9 Currently on 2 meds per hosp. -famotidin e 20 mg po bidpantopr azole 40 mg po q am - reduced to 20 mg qd on ontinu e and monitor sx.Unclear as why she is on 2 - continue to titrate as outpt. Monitor sx. Hypertensive disorder 38 549900 I10 VSSMeds adjusted in hosp. due to high KAldactone stopped, remains on lasix 40 mg qd.Continu es on losartan 50mg dailymonit or vitals, labs - adjust tx. prn Hyperlipidemia 88464026 E78.5 continue pravastati n 40 mg po qhsmonitor [id number] JORGE A SUN NP [place] [address] [place] [address] 01/03/2024 08:25:07 01/04/2024 10:44:09 Closed fracture of right ankle [id number] 4853681 S82.891D To [facility] after falling, dx. with R ankle [...] fall precaution s.Monitor for safety. Acute hyperkalemia 74502 00 E87.5 Now resolved.K 6.6 on admit to [facility] corrected in hosp. with albuterol, insulin D5, lokelma, and calcium gluconate. Losartan was held and then restarted at lower dose (50 mg qd)Spirono lactone was d/c'd, lasix continued (40 mg qd)Repeat K stable here since admission, last level 3.8 on 12/31. 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 Chest CT, sleep study to be sched. by office with OV follow up after testing.Ad ded prn albuterol MDI q 4 prn for wheezing. Congestive heart failure 84920502 I50.9 Laie partial cause of initial hospitaliz ation for resp. failure.Cu rrently with rapid weight gain over past few days (253-> 260 lbs) concerning for fluid retention although has also been diet non compliant while here with excellent appetite. Plan:Incre ase lasix to 40 mg bid x 3 days, then resume 40 mg qd.Add KCl 20 meq daily x 3 daysAdd fluid restrictio n 1800 ml/dRecarlos ting VNA to continue to closely monitor for decompensa tion at home - update PCP with concerns. Continue:L ow salt diet - encourage diet compliance (family bringing inappropri ate foods while here). Requesting nsg. to review low salt diet, fluid restrictio n, and CHF informatio n with pt. and family at discharge and provide low salt diet and CHF educationa l handouts in Portuguese for use at home.Daily weights and record at homeLosart an 50 mg qd Monitor LS, sats, labs, weights closely for decompensa tion.Off aldactone due to high K, but may need to use intermitte ntly.Had pulm. f/u 12/10 Type 2 matias betes mellitus 84854945 E11.9 Most recent A1C 7.9% and 8.1%BS [...] of hyper/hypo glycemia; adjust tx. prn Dementia 02051288 F03.90 11/09/23 SLUMS assessment : 07/16invok ed at [facility], pt son is hcpNot on meds at this time.Juliana nue supportive caremonito r mood, behaviorsP sych eval prn Obstructiv e sleep apnea syndrome 22051195 G47.33 CPAP per home use - continue - encourage compliance , refuses use at times per staff.Had f/u with pulmonolog y 12/10 - to get repeat sleep study then follow up appt. Chronic ob structive pulmonary disease 54733404 J44.9 Continue O2, unable to titrate off [...] NH3 level WNR Gastroesop hageal reflux disease 797838720 K21.9 Currently on 2 meds per hosp. d/c paperworkU nclear as why she is on 2Continue famotidine 20 mg po bidPantopr azole 40 mg po q am -> reduced to 20 mg qd on 12/24Monitor sx. and continue to titrate as outpt. Hypertensive disorder 38 272305 I10 VSSMeds adjusted in hosp. due to high KAldactone stopped, remains on lasix 40 mg qd.Continu es on losartan 50mg daily, coreg 12.5 mg bidmonitor vitals, labs - adjust tx. prn Hyperlipidemia 29405678 E78.5 continue pravastati n 40 mg po qhs Health Concerns Section Related Observation LastModified by Organization Detai ls LastModified Time None Recorded Concern Status LastModified by Organization Details LastModified Time None Recorded Advance Directives Directive Y: Payers Insurance Date Sequence Insurance Name Policy Number Policy Elizondo Covered Member ID Elizondo Member ID Guarantor Name 02/08/2024 1 [facility] - DOS ON OR AFTER 2022 - MEDICARE ADVANTAGE [place] (MEDICARE REPLACEMENT/ADV ANTAGE - PPO) Magalie Live [id number] Magalie [employer] Notes Date Note Type Note Provider Name and Address Organization Details Recorded Time 12/20/2023 text/html Magalie is seen today for an acute visit. She is a 78 yo woman admitted to [facility] 11[facility]23 from [facility] for continued care and rehab after a brief hosp. related to a fall and right ankle fracture.She was at [facility] for rehab when she fell in her room with resulting right ankle pain and swelling. Sent to [facility] 11/13 for eval and tx. Originally admitted to [facility]/08 after an acute hospitalization due to hypoxic and hypercarbic resp failure - dx. with pneumonitis, CHF, and Sjogren's syndrome.She presented to [facility] because of abd pain and SOB [...] thought due to steroids. After admission to [facility] she began desatting again on restarted on O2.As mentioned above, she fell in her room with resulting right ankle pain so was sent to [facility] [place] on . At [facility], Xray showed Oblique displaced lateral malleolus fracture. [...] HCP to address MOLSTHCP invoked prior at [facility]. JORGE A SUN NP [address], [address], [place], [address], [facility] 12/20/2023 11:05:17 12/25/2023 text/html Magalie is seen today for an acute visit. She is a 78 yo woman admitted to [facility] 11/15/23 from [facility] for continued care and rehab after a brief hosp. related to a fall and right ankle fracture.She presented to [facility] 11[place]13 after falling at a prior SNF ([facility]) resulting in right ankle pain and swelling. [...] note, originally admitted to [facility] [place] [facility]/08 after an acute hospitalization due [...] in 6 wks.Had follow up with Pulmonary 3/26 - No new recs other than checking [...] HCP to address MOLSTHCP invoked prior at [facility]. JORGE A SUN, CLAUDIA [address], [address], [place], [address], [facility] 12/25/2023 10:43:23 12/27/2023 text/html Magalie is seen today for an acute visit. She is a 78 yo woman admitted to [facility] 11/15/23 from [facility] for continued care and rehab after a brief hosp. related to a fall and right ankle fracture.She presented to [facility] 11[place] after falling at a prior SNF ([facility]) resulting in right ankle pain and swelling. [...] note, originally admitted [facility] [place] [facility]08 after an acute hospitalization due [...] HCP to address MOLSTHCP invoked prior at [facility]. JORGE A SUN NP [address], [address], [place], [address], [facility] 12/27/2023 12:37:12 12/31/2023 text/html Magalie is seen today for an acute visit. She is a 78 yo woman admitted to [facility] 11/15/23 from [facility] for continued care and rehab after a brief hosp. related to a fall and right ankle fracture.She presented to [facility] after falling at a prior SNF ([facility]) resulting in right ankle pain and swelling. [...] note, originally admitted [facility]/08 after an acute hospitalization due [...] CPAP at night sometimes.CXR 11/28 = NAD.CXR 3/26 = NAD. Upon exam, Magalie is in [...] HCP to address MOLSTHCP invoked prior at [facility]. JORGE A SUN NP [address], [address], [place], [address], [employer] 12/31/2023 14:31:03 01/03/2024 text/html Magalie is seen today for discharge.She is going home 01/03 with support of family and services. She is a 78 yo woman admitted to [facility] 11/15/23 from [facility] for continued care and rehab after a brief hosp. related to a fall and right ankle fracture.She presented to [facility] 11/[facility] after falling at a prior SNF ([facility]) resulting in right ankle pain and swelling. [...] note, originally admitted [facility]/08 after an acute hospitalization due [...] to some leg swelling. 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 PMH: HTN, AODM, COPD not on home O2, NICO on CPAP, CHF pEF, Sjogren's disease, GERD, cirrhosis of liver, s/p cholecystectomy, obesity hypoventilation syndrome with hypercarbia, and cognitive decline.Currently full code, HCP to address MOLSTHCP invoked prior at [facility]. JORGE A SUN NP [address], [address], [place], [address], [facility] [employer] 01/03/2024 10:08:52 OBGyn Episode No OBEpisode recorded.
--- OUTSIDE RECORDS SUMMARY | 2025-08-27 19:57 | XMS_ITS | Clinical Summary ---
Author Organization [employer] Address [address] [facility] 7[address] [place] [address] Care Team Providers Care Armhole Presser Name Role Phone Luke Gayle PharmD Unavailable [...] 30 tablet 11 024 Active Continuous Glucose Lumber Kiln Operator (FreeStyle Silvana 2 [place]) deviceIndications :Type 2 diabetes mellitus with other specified complication, without long-term current use of insulin ([facility]) Scan sensor every 8 hours 1 each 024 Active Continuous Glucose Sensor (FreeStyle Silvana 2 Sensor) miscIndications:T ype 2 diabetes mellitus with other specified complication, without long-term current use of insulin ([facility]) Apply 1 sensor every 14 days 2 each 11 024 Active Blood Glucose Monitoring Suppl (FreeStyle [place] Lite) w/Device kitIndications:Ty pe 2 diabetes mellitus with other specified complication, without long-term current use of insulin ([facility]) Use to test blood sugar 2 times daily 1 kit 024 Active ergocalciferol (Vitamin D2) 1.25 MG (88064 UT) capsule TAKE ONE CAPSULE EVERY WEEK 12 capsule 5 024 Active loratadine (Claritin) 10 MG tabletIndications :Pruritus Take 1 tablet (10 mg) by mouth Once per day. 30 tablet 024 Active Easy Touch Lancets 33G/Twist miscIndications:T ype 2 diabetes mellitus with other specified complication, without long-term current use of insulin ([facility]) TEST BLOOD SUGAR TWICE DAILY 100 each [...] mouth 2 times daily. 60 tablet 11 08/11/20 25 12:06 PM EST 025 2025 Active pravastatin (Pravachol) 40 MG [...] DAILY DIRECTED 300 each 3 025 Active Tirzepatide (Mounjaro) 2.5 MG/0.5ML solution auto-injectorIndi cations:Type 2 diabetes mellitus with other specified complication, without long-term current use of insulin ([facility]) Inject 2.5 mg under the skin 1 (one) time per week. 2 mL 2 025 Active amLODIPine (Norvasc) 2.5 MG tablet 025 Active cephalexin (Keflex) 500 MG capsule Take 1 capsule by mouth every 6 (six) hours. Active metFORMIN XR (Glucophage-XR) 500 MG 24 hr tablet Active HumaLOG KWIKPEN 100 UNIT/ML injectionIndicati ons:Type 2 diabetes mellitus with other specified complication, without long-term current use of insulin ([facility]) INJECT 5 UNITS SUBCUTANEOUSLY THREE TIMES DAILY WITH BREAKFAST, WITH LUNCH, AND WITH DINNER 15 mL 8 Active furosemide (Lasix) 40 MG tabletIndications :Stage 3a chronic kidney disease (CMS/HCC) ([facility]) TAKE 1 TABLET BY MOUTH EVERY MORNING 90 tablet 1 Active Lantus SoloStar 100 UNIT/ML penIndications:Ty pe 2 diabetes mellitus with other specified complication, without long-term current use of insulin ([facility]) INJECT 20 UNITS SUBCUTANEOUSLY AT BEDTIME 15 mL 3 Active Continuous Glucose Lumber Kiln Operator (FreeStyle Silvana 3 [place]) deviceIndications :Type 2 diabetes mellitus with other specified complication, without long-term current use of insulin ([facility]) 1 each Once per day. Use as directed for CGM 1 each Active Continuous Glucose Sensor (FreeStyle Silvana 3 Plus Sensor) miscIndications:T ype 2 diabetes mellitus with other specified complication, without long-term current use of insulin ([facility]) 1 each every 15 days. Apply 1 every 15 days as directed for CGM 2 each Active glucose blood (FreeStyle Precision [place] Test) test stripIndications: Type 2 diabetes mellitus with other specified complication, without long-term current use of insulin ([facility]) Use to test blood sugar 3 times daily in case of CGM failure or extremes of BG 100 each 2025 Active carvedilol (Coreg) 12.5 MG tablet TAKE 1 TABLET BY MOUTH TWICE DAILY IN THE MORNING AND IN THE EVENING WITH MEALS 60 tablet 3 Active pantoprazole (ProtoNix) 20 MG EC tablet TAKE 1 TABLET BY MOUTH EVERY MORNING DO NOT BREAK, CRUSH, DISSOLVE OR CHEW 30 tablet 3 Active carvedilol (Coreg) 12.5 MG tablet TAKE 1 TABLET BY MOUTH TWICE DAILY IN THE MORNING AND IN THE EVENING WITH MEALS 60 tablet 3 025 2024 Discontinued pantoprazole (ProtoNix) 20 MG EC tablet TAKE 1 TABLET BY MOUTH EVERY MORNING BEFORE BREAKFAST DO NOT BREAK, CRUSH, DISSOLVE OR CHEW 30 tablet 3 025 2024 Discontinued nitrofurantoin, macrocrystal-mono hydrate, (Macrobid) 100 MG capsuleIndication s:Recurrent UTI Take 1 capsule (100 mg) by mouth 2 times daily for 7 days. 14 capsule 08/19/20 12:41 PM EST 025 2024 Active Problems Problem Noted Date Diagnosed Date Cirrhosis of liver without a scites, unspecified hepatic cirrhosis type 08/11/2025 Acute on chronic diastolic (congestive) heart fa ilure 08/11/2025 Dementia, unspecified avel ia severity, unspecified dementia type, unspecified whether behavioral, psychotic, or mood disturbance or anxiety (CMS/HCC) 08/11/2025 Sebaceous cyst 08/11/2025 Chronic pain of right ankle 05/14/2025 Assessment [...] for therapy UTI symptoms 08/05/2024 Chronic bronchitis ([facility]) 07/16/2024 Assessment & Plan (07/16/2024 12:43 PM [...] percocet offered. 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 at the pharmacy (new [...] Encounters Date Type Department Care Team Description 08/21/[address] [address] Bárbara Rader MD 08/12/[address] [address] yAla Okeefe RN CGM PA 08/11/2025 11:00 AM EST Office Visit [address] [address] Bárbara Rader MD Type 2 diabetes mellitus with other specified complication, without long-term current use of insulin (HCC); Dietary counseling; Exercise counseling; Class 3 severe obesity due to excess calories with serious comorbidity and body mass index (BMI) of 40.0 to 44.9 in adult (HCC); Cirrhosis of liver without ascites, unspecified hepatic cirrhosis type (HCC); Acute on chronic diastolic (congestive) heart failure (HCC); Dementia, unspecified dementia severity, unspecified dementia type, unspecified whether behavioral, psychotic, or mood disturbance or anxiety (CMS/HCC) (HCC); Chronic bronchitis, unspecified chronic bronchitis type (CMS/HCC) (HCC); Stage 3a chronic kidney disease (CMS/HCC) (HCC); Primary hypertension; Recurrent UTI; Sebaceous cyst 08/11/2025 Results Follow-Up [address] [address] Bárbara Rader MD Urinalysis, Complete, with Reflex to Culture, Culture, Urine, Routine 08/11/2025 Travel 08/10/[address] [phone] Bárbara Rader MD Chart Prep 08/10/2025 Orders Only [facility] [address] [place] [phone] Bárbara Rader MD 08/03/2025 Patient Outreach [address] [address] Bárbara Rader MD Pre-visit Planning (SDOH screening completed on 02/20/2025) 07/23/[address] [address] Bárbara Rader MD Med Refill 07/23/[address] [address] Carmine Patel MD Type 2 diabetes mellitus with other specified complication, without long-term current use of insulin (HCC) 07/21/[address] [address] Bárbara Rader MD Call Back Request 06/09/[address] [address] Bárbara Rader MD 06/08/[address] [address] Bárbaar Rader MD Durable Medical Equipment (DME Request: Power Recliner) 06/08/[address] [address] Carmine Patel MD Type 2 diabetes mellitus with other specified complication, without long-term current use of insulin (CMS/HCC); Stage 3a chronic kidney disease (CMS/HCC) 06/08/2025 Refill [facility] [address] [place] [address] Bárbara Rader MD Stage 3a chronic kidney disease (CMS/HCC) 06/05/2025 Results Follow-Up [address] [address] Bárbara Rader MD Urinalysis, Complete, with Reflex to Culture 06/05/2025 Orders Only [facility] [address] [place] [address] Bárbara Rader MD Recurrent UTI (Primary Dx) 06/05/2025 Orders Only [facility] [address] [place] [address] Bárbara Rader MD from Last 3 Months [...] seasonal, injecta ble, preservative free 05/28/2020 Novel [id number], all formulations 05/15/2016 Pneumococcal Conjugate PCV 13 [...] Sign Reading Time Taken Comments Blood Pressure 132/88 08/11/2025 11:23 AM EST Pulse 79 08/11/2025 11:23 AM EST Temperature 33.7 C (92.6 F) 08/11/2025 11:23 AM EST Respiratory Rate 18 08/11/2025 11:23 AM EST Oxygen Saturation 99% 08/11/2025 11:23 AM EST Inhaled Oxygen Concentration - - Weight 112 kg (247 lb 9.6 oz) 08/11/2025 11:23 A M EST Height 162.6 cm (5' 4 ) 08/11/2025 11:23 AM EST Body Mass Index 42.5 08/11/2025 11:23 AM EST Plan of Treatment Upcoming Encounters Date Type Department Care Team ([facility] st Contact Info) Description 09/03/2025 10:00 AM EST Clinical Support [facility] [address] [place], [place] [phone] 10/13/2025 1:30 PM EST Office Visit [facility] [address], [place] [phone] Jacob, Abigail, OD [address] [place], [place] [phone] 11/12/2025 2:30 PM EST Office Visit [facility] [address] [place], [place] [phone] Bárbara Rader MD [address] [place], [place] [phone] Health Maintenance Due Date Last Done Comments [...] Foot Exam 06/03/2025 06/03/2024 Diabetes: Hemoglobin A1C 11/14/202505/14/ 025, 03/02/2025, 11/25/2024, Additional history exists Alcohol/Substance Use Screening 11/25/2025 11/25/2024 SDOH Screening 02/20/2026 02/20/2025 Depression Screening 05/14/2026 05/14/2025, 05/14/20 Lipid Panel 05/14/2026 05/14/2025, 12/2023, 08/17/2020 Diabetes: Urine Protein Screening 06/05/2026 06/05/2025, 06/20/2024, 08/17/2020 Tobacco Screening 08/11/2026 08/11/2025 Pneumococcal Vaccine: 50+ Years Completed 05/03/2015, 07/27/2014, [...] Author Blood Pressure < 140/90 Blood Pressure 132/88(2024 11:23 AM EST) No Luke Gayle, PharmD Help patients manage their type 2 diabetes Care Plan Help patients manage their type 2 diabetes No Cornelia Lin Weekly blood pressure task Care Plan Weekly blood pressure task No Cornelia Lin Help patients manage their type 2 diabetes Care Plan Help patients manage their type 2 diabetes Cornelia Demarco Patient has chronic kidney disease Care Plan Patient has chronic kidney disease No Cornelia Lin Weekly blood pressure task Care Plan Weekly blood pressure task No Cornelia Lin Patient has chronic kidney disease Care Plan Patient has chronic kidney disease Cornelia Demarco Weekly blood pressure task Care Plan Weekly blood pressure task No Lizeth Branch [place] Weekly blood pressure task Care Plan Weekly blood pressure task No Lizeth [place] Patient has chronic kidney disease Care Plan Patient has chronic kidney disease No Lizeth [place] Patient has chronic kidney disease Care Plan Patient has chronic kidney disease No Lizeth [place] Weekly blood pressure task Care Plan Weekly blood pressure task No Fernanda Garduno MA Weekly blood pressure task Care Plan Weekly blood pressure task No Fernanda Garduno [place] Patient has chronic kidney disease Care Plan Patient has chronic kidney disease No Fernanda Garduno [place] Patient has chronic kidney disease Care Plan Patient has chronic kidney disease No Fernanda Garduno MA Weekly blood pressure task Care Plan Weekly blood pressure task No Bárbara Rader MD Weekly blood pressure task Care Plan Weekly blood pressure task No Bárbara Rader MD Patient has chronic kidney disease Care Plan Patient has chronic kidney disease No Bárbara Rader MD Patient has chronic kidney disease Care Plan Patient has chronic kidney disease No Bárbara Rader MD Weekly blood pressure task Care Plan Weekly blood pressure task No Yuni Reyes Weekly blood pressure task Care Plan Weekly blood pressure task No Yuni Reyes Patient has chronic kidney disease Care Plan Patient has chronic kidney disease No Yuni Reyes Patient has chronic kidney disease Care Plan Patient has chronic kidney disease No Yuni Reyes Weekly blood pressure task Care Plan Weekly blood pressure task No Yuni Reyes Weekly blood pressure task Care Plan Weekly blood pressure task No Yuni Reyes Patient has chronic kidney disease Care Plan Patient has chronic kidney disease No Yuni Reyes Patient has chronic kidney disease Care Plan Patient has chronic kidney disease No Yuni Reyes Weekly blood pressure task Care Plan Weekly blood pressure task No Yuni Reyes Weekly blood pressure task Care Plan Weekly blood pressure task No Yuni Reyes Patient has chronic kidney disease Care Plan Patient has chronic kidney disease No Yuni Reyes Patient has chronic kidney disease Care Plan Patient has chronic kidney disease No Yuni Reyes Weekly blood pressure task Care Plan Weekly blood pressure task No Ayla Okeefe RN Weekly blood pressure task Care Plan Weekly blood pressure task No Ayla Okeefe RN Patient has chronic kidney disease Care Plan Patient has chronic kidney disease No Ayla Okeefe RN Patient has chronic kidney disease Care Plan Patient has chronic kidney disease No Ayla Okeefe RN Procedures Procedure Name Priority Date/Time Associated Diagnosis Comments POCT GLUCOSE Routine 08/11/2025 11:24 AM EST Type 2 diabetes mellitus with other specified complication, without long-term current use of insulin (HCC) URINALYSIS, COMPLETE, WITH REFLEX TO CULTURE Routine 08/10/2025 10:20 AM EST CULTURE, URINE, ROUTINE Routine 08/10/2025 12:00 AM EST URINALYSIS, COMPLETE, WITH REFLEX TO CULTURE Routine 06/05/2025 12:00 AM EDT ALBUMIN, RANDOM URINE W/CREATININE Routine 06/05/2025 12:00 AM EDT Type 2 diabetes mellitus with other specified complication, without long-term current use of insulin ([facility]/HCC) CULTURE, URINE, ROUTINE Routine 06/05/2025 12:00 AM EDT Recurrent UTI LIPID PANEL, STANDARD Routine 05/14/2025 12:11 PM EDT Type 2 diabetes mellitus with other specified complication, without long-term current use of insulin ([facility]/HCC) POCT GLYCATED HEMOGLOBIN, TOTAL Routine 05/14/2025 11:44 AM EDT Type 2 diabetes mellitus with other specified complication, without long-term current use of insulin ([facility]) HEPATITIS C AB W/REFL TO HCV RNA, QN, PCR Routine 06/20/2024 2:54 PM EDT Type 2 diabetes mellitus with other specified complication, without long-term current use of insulin ([facility]) from Last 3 Months or Most Recently Relevant to Health Maintenance Results * (ABNORMAL) POCT Glucose (08/11/2025 11:24 AM EST) Pathologist [facility] Glucose Blood, POC 207(A) 60 - 200 mg/dL QC Media Lot # [id number] Lot# Expiration Date 72 Blood Capillary blood specimen / Unknown 08/11/2025 11:24 AM EST us Bárbara Raymundo MD POINT OF CARE TEST EN TER/EDIT ORDERABLES Final Result * (ABNORMAL) Urinalysis, Complete, with Reflex to Culture (08/10/2025 10:20 AM EST) Only the most recent of2 resultswithin the time period is included. Pathologist [facility] Color Urine Yellow [facility] Appearance Urine Turbid [facility] PH 5.5 5.0 - 9.0 [facility] Glucose Urine UA Negative Negative mg/dL [facility] Urine Blood Small (1+)(A) Negative [facility] Specific [place] - Urine 1.010 1.005 - 1.025 [facility] Urine Protein 30 (1+)(A) Neg-Trace mg/dL [facility] Urine Ketones Negative Negative mg/dL [facility] Nitrite Urine Negative Negative [facility] Leukocyte Esterase Urine Large (3+)(A) Negative [facility] RBC Urine 0-2 0 - 2 /HPF [facility] Urine WBC >50 0 - 5 /HPF [facility] Urine Squamous Epithelial Cell 6-10 0 - 2 /HPF [facility] Urine Bacteria 3+ None Seen [facility] Hyaline Casts, Urine 0-2 0 - 2 /LPF [facility] 08/10/2025 10:2 0 AM EST 08/10/2025 11:04 AM EST Narrative [facility] - 08/10/2025 11:38 AM EST Urine, Clean Catch us Bárbara Raymundo MD LAB URINE ORDERABLES Final Result Performing Organization Address [facility] de Phone Number [facility] [address] [place] [phone] * Culture, Urine, Routine (08/10/2025 12:00 AM EST) Only the most recent of2 resultswithin the time period is included. Urine Urine specimen obtained by clean catch procedure / Unknown 08/10/2025 08/10/2025 Comment:[facility] - 08/11/2025 12:09 PM EST Urine Culture Report Result Urine Culture 10,000 to 50,000 cfu/ml Urine Culture Mixed bacterial stef characteristic of Urine Culture urogenital contamination. Specimen Source: Urine clean catch us Bárbara Raymundo MD LAB MICROBIOLOGY - GE NERAL ORDERABLES Final Result Performing Organization Address City/[facility] Co de Phone Number [facility] [address] [place] [phone] * (ABNORMAL) Albumin, Random Urine W/Creatinine (06/05/2025 12:00 AM EDT) Creatinine, Urine 42.22 mg/dL [facility] Microalbumin Urine 14.0 mg/L H [facility] Microalbum Creatinine Ratio Ur 33.1(H) <30 ug/mg cr [facility] Comment:Albumin/Creatinine R atio Reference Ranges: Normal: < 30 ug/mg creatinine Microalbuminuria: 30 - 300 ug/mg creatinineClinical Albuminuria: > 300 ug/mg creatinine Urine (Urine, Random) 06/05/2025 06/05/2025 us Bárbara Raymundo MD LAB URINE ORDERABLES Final Result [facility] [address] [place] [phone] * Lipid Panel, Standard (05/14/2025 12:11 PM EDT) Triglycerides 131 <150 mg/dL [facility] Comment:Desirable Triglyceri de: less than 150 mg/dLBorderline High Triglyceride 150-199 mg/dLHigh Triglyceride: 200-499 mg/dLVery High Triglyceride: greater than or equal to 5OO mg/dL Cholesterol 139 <200 mg/dL [facility] Comment:Desirable Cholestero l: less than 200 mg/dLBorderline High Cholesterol: 200-239 mg/dLHigh Cholesterol: greater than 239 mg/dL LDL Cholesterol Calculated 63 <100 mg/dL [facility] Comment:Desirable LDL: less than 100 mg/dLNear Optimal/Above Optimal LDL: 110- 129 mg/dLBorderline High LDL: 130-159 mg/dLHigh LDL: 160-189 mg/dLVery High LDL: greater than or equal to 190 mg/dL HDL Cholesterol 50 >40 mg/dL [facility] Comment:Desirable HDL: great er than 40 mg/dL Note: This HDL assay may give artificially low results in patients with liver disease. Blood Venous blood specimen / Unknown 05/14/2025 12:11 PM EDT 05/14/2025 1:12 PM EDT us Bárbara Raymundo MD LAB BLOOD ORDERABLES Final Result Performing Organization Address [facility]/ZIP Co de Phone Number [facility] [address] [place] [phone] [phone] * (ABNORMAL) POCT HGB A1C (05/14/2025 [...] [facility] C Antibody Nonreactive Nonreactive [facility] Comment:Antibodies to HCV no t detected; does not exclude early acuteHCV infection. Blood Venous blood specimen / Unknown 06/20/2024 2:54 PM EDT 06/20/2024 2:54 PM EDT Carmine Patel MD LAB BLOOD ORDERABLES Final Result Performing Organization Address City/[facility]/ZIP Co de Phone Number [facility] [address] [place] [phone] [phone] from Last 3 Months or Most Recently Relevant to Health Maintenance Additional Health Concerns Active Problems Noted Date Diagnosed Date Help patients manage their type 2 diabetes 08/03 Weekly blood pressure task 08/03/2025 Help patients manage their type 2 diabetes 08/03 Patient has chronic kidney disease 08/03/2025 Weekly blood pressure task 08/03/2025 Patient has chronic kidney disease 08/03/2025 Weekly blood pressure task 08/10/2025 Weekly blood pressure task 08/10/2025 Patient has chronic kidney disease 08/10/2025 Patient has chronic kidney disease 08/10/2025 Weekly blood pressure task 08/11/2025 Weekly blood pressure task 08/11/2025 Patient has chronic kidney disease 08/11/2025 Patient has chronic kidney disease 08/11/2025 Weekly blood pressure task 08/11/2025 Weekly blood pressure task 08/11/2025 Patient has chronic kidney disease 08/11/2025 Patient has chronic kidney disease 08/11/2025 Weekly blood pressure task 08/12/2025 Weekly blood pressure task 08/12/2025 Patient has chronic kidney disease 08/12/2025 Patient has chronic kidney disease 08/12/2025 Weekly blood pressure task 08/12/2025 Weekly blood pressure task 08/12/2025 Patient has chronic kidney disease 08/12/2025 Patient has chronic kidney disease 08/12/2025 Weekly blood pressure task 08/12/2025 Weekly blood pressure task 08/12/2025 Patient has chronic kidney disease 08/12/2025 Patient has chronic kidney disease 08/12/2025 Weekly blood pressure task 08/12/2025 Weekly blood pressure task 08/12/2025 Patient has chronic kidney disease 08/12/2025 Patient has chronic kidney disease 08/12/[address]25 [address] [id number] [employer] [place] [place] ZUHAIR ROBLERO [phone] Care Teams Armhole Presser Relationship Specialty Start Date End Date Bárbara Rader MD [address] [place] [address] PCP - General Internal Medicine 07/16/24 Luke Gayle, Shan Pharmacist Internal Medicine 09/04/22 [facility] 11/17/24
--- OUTSIDE RECORDS SUMMARY | 2025-08-27 19:57 | XMS_ITS | Encounter Summary ---
Author Organization [employer] Address [address] [facility] [address] [place] [address] Care Team Providers Care Field Operations Coordinator Name Role Phone Luke Gayle PharmD Unavailable Unavail able Bárbara Rader MD Primary Care Provide r Reason for Visit * Reason Onset Date Comments Durable Medical Equipment 09/03/2024 Encounter Details Date Type Department Care Team ([facility] st Contact Info) Description 09/03/2024 Telephone [facility] [address] [place] [address] Bárbara Rader MD [address] [place], [place] [phone] Durable Medical Equipment Social History Tobacco Use [...] - 09/03/2024 1:40 PM EST Tc from [facility] requesting a large commode. States the one pt has is to small. Anyfurther questions may contact phone # [phone]. documented in this encounter Plan of Treatment Upcoming Encounters Date Type Department Care Team ([facility] st Contact Info) Description 09/03/2025 10:00 AM EST Clinical Support [facility] [address] [place] [phone] 10/13/2025 1:30 PM EST Office Visit [facility] [address] [place] [address] Abigail James, SULAIMAN [address] [place] [address] 11/12/2025 2:30 PM EST Office Visit [facility] [address] [place] [address] Bárbara Rader MD [address] [place] [address] documented as of this encounter Goals Goal Patient Goal Type Associated Problems Recent Progress Patient-Stated? Author Blood Pressure < 140/90 Blood Pressure 132/88( 025 11:23 AM EST) No Luke Gayle, Shan documented as of this encounter Visit Diagnoses Not on filedocumented in this encounter Additional Health Concerns Assessment Noted Time PHQ-9 Depression Total Score: 0 07/16/20 24 10:22 AM EDT documented as of this encounter Care Teams Field Operations Coordinator Relationship Specialty Start Date End Date Bárbara Rader MD [address] [place] [phone] PCP - General Internal Medicine 07/16/24 Luke Gayle, PharmD Pharmacist Internal Medicine 09/04/22 [facility] 07/10/24 11/19/24 [facility] 11/17/24 documented as of this encounter
--- OUTSIDE RECORDS SUMMARY | 2025-08-27 19:58 | XMS_ITS | Encounter Summary ---
Author Organization [employer] [facility] Address [address] [facility] [address] [place] [address] Care Team Providers Care Shipwright Apprentice Name Role Phone Carmine Patel MD Primary Care Provider +1- [phone] Luke Gayle PharmD Unavailable Unavail able Bárbara Rader MD Primary Care Provide r Encounter Details Date Type Department Care Team (Latest Contact Info) Description 06/26/2019 Abstract [facility] CONVERSIONS Dental, Provider, DDS Social History Tobacco [...] Care Team ( st Contact Info) Description 09/03/2025 10:00 AM EST Clinical Support [facility] MEDICINE 230 [place] [address] 10/13/2025 1:30 PM EST Office Visit [facility] OPTOMETRY [address] [place] [address] Abigail James, SULAIMAN 230 [place] [address] 11/12/2025 2:30 PM EST Office Visit [facility] MEDICINE 230 [place], [place] [phone] Bárbara Rader MD 230 [place] [address] documented as of this encounter Visit Diagnoses Not on filedocumented in this encounter Care Teams Shipwright Apprentice Relationship Specialty Start Date End Date Carmine Patel MD 505 [place] [address] PCP - General Internal Medicine 11/16/15 07/15/24 Bárbara Rader MD 230 [place] [address] PCP - General Internal Medicine 07/16/24 Luke Gayle, JarettD [address] [place] [address] Pharmacist Internal Medicine 09/04/22 [facility] 07/10/24 11/19/24 [facility] 11/17/24 documented as of this encounter
--- OUTSIDE RECORDS SUMMARY | 2025-08-27 19:59 | XMS_ITS | Encounter Summary ---
Author Organization [employer] Address [address] [facility] 7t [place] [address] Care Team Providers Care Hydraulic Lift Driver Name Role Phone Luke Gayle PharmD Unavailable Unavail able Bárbara Rader MD Primary Care Provide r Reason for Visit * Reason Onset Date Comments Med Refill 07/23/2025 Encounter Details Date Type Department Care Team ([facility] st Contact Info) Description 07/23/2025 Telephone [facility] MEDICINE 230 [place] [address] Bárbara Rader MD 230 [place], [place] [phone] Med Refill Social History Tobacco Use Types [...] 3:19 PM EST Medication was sent to [facility] on 05/14/25 with 2 refills. * Telephone Encounter - Mary Polo - 07/23/2025 3:16 PM EST TC from pt requesting medication refill. Medications needing refill : - Tirzepatide (Mounjaro) 2.5 MG/0.5ML solution auto-injector To be sent to: [facility] - [place], [place] - [address] documented in this encounter Plan of Treatment Upcoming Encounters Date Type Department Care Team (Late st Contact Info) Description 09/03/2025 10:00 AM EST Clinical Support [facility] MEDICINE [address] [place] [address] 10/13/2025 1:30 PM EST Office Visit [facility] OPTOMETRY [address] [place], [place] [phone] Abigail James, OD 230 [place] [address] 11/12/2025 2:30 PM EST Office Visit [facility] MEDICINE [address] [place], [place] [phone] Bárbara Rader MD 230 [place], [place] [phone] documented as of this encounter Goals Goal [...] documented as of this encounter Care Teams Hydraulic Lift Driver Relationship Specialty Start Date End Date Bárbara Rader MD 230 [place], [place] [phone] PCP - General Internal Medicine 07/16/24 Luke Gayle, PharmD Pharmacist Internal Medicine 09/04/22 [facility] 11/17/24 documented as of this encounter
--- OUTSIDE RECORDS SUMMARY | 2025-08-27 20:00 | XMS_ITS | Encounter Summary ---
Author Organization [employer] Address [address] [facility] 7t [place] [address] Care Team Providers Care Skein Spooler Name Role Phone Luke Gayle PharmD Unavailable Unavail able Bárbara Rader MD Primary Care Provide r Reason for Visit * Reason Comments Med Refill Encounter Details Date Type Department Care Team ([facility] st Contact Info) Description 11/04/2024 Refill [facility] MEDICINE [address] [place] [address] Carmine Patel MD 505 [place] [address] Epigastric pain Social History Tobacco Use Types [...] Description 09/03/2025 10:00 AM EST Clinical Support [facility] MEDICINE 230 [place] [address] 10/13/2025 1:30 PM EST Office Visit [facility] OPTOMETRY [address] [place] [address] Jacob, Abigail, OD 230 [place] [address] 11/12/2025 2:30 PM EST Office Visit [facility] MEDICINE [address] [place] [address] Bárbara Rader MD 230 [place] [address] documented as of this encounter Goals Goal [...] documented as of this encounter Care Teams Skein Spooler Relationship Specialty Start Date End Date Bárbara Rader MD [address] [place] [address] PCP - General Internal Medicine 07/16/24 Luke Gayle PharmD Pharmacist Internal Medicine 09/04/22 [facility] 07/10/24 11/19/24 [facility] 11/17/24 documented as of this encounter
--- OUTSIDE RECORDS SUMMARY | 2025-08-27 20:01 | XMS_ITS | Encounter Summary ---
Author Organization [employer] Address [address] [facility] 7t [place] [address] Care Team Providers Care Physical Therapy Teacher Name Role Phone Luke Gayle PharmD Unavailable Unavail able Bárbara Rader MD Primary Care Provide r Reason for Visit * Reason Onset Date Comments XIANG MOFFETT 08/12/2025 Encounter Details Date Type Department Care Team ([facility] st Contact Info) Description 08/12/2025 Telephone [facility] MEDICINE [address] [place] [address] Ayla Okeefe RN [address] [place] [address] XIANG MOFFETT Social History Tobacco Use Types Packs/Day Years [...] housing situation today? I have truman sing 02/20/[address] you li [...] Encounter - Ana De Leon RN - 08/27/2025 10:28 AM EST RN confirmed CGM is approved and processing at the pharmacy. TC placed to patient [phone] via [employer] ([employer] #[id number]) to schedule initiation appointment. RN scheduled patient for 09/03/25 at 10am. Patient agreed to appointment date and time. Patient to f/u PRN. * Telephone Encounter - Ayla Okeefe RN - 08/12/2025 4:23 PM EST Continuous Glucose Monitor Prior Authorization Documentation: CGM PA initiated for: CGM DEVICE: Freestyle Silvana 3 PLUS sensors, reader and jaelyn test strips Insurance: [facility] PA form completed and faxed to [facility]. Patient's preferred pharmacy: [facility] - [address] 230 [facility] [phone] CGM PA should be approved by: 08/26/2025 Postponing message to 08/27/25 to ensure approval. Pt. To be contacted for initiation appointment pending decision. documented in this encounter Plan of Treatment Upcoming Encounters Date Type Department Care Team (Late st Contact Info) Description 09/03/2025 10:00 AM EST Clinical Support [facility] MEDICINE [address] [place] [address] 10/13/2025 1:30 PM EST Office Visit [facility] OPTOMETRY [address] [place] [address] Jacob, Abigail, OD 230 [place] [address] 11/12/2025 2:30 PM EST Office Visit [facility] MEDICINE [address] [place] [address] Bárbara Rader MD 230 [place] [address] documented as of this encounter Goals Goal [...] chronic kidney disease No Ayla Okeefe RN documented as of this encounter Visit Diagnoses [...] 08/12/2025 Patient has chronic kidney disease 08/12/2025 Assessment Noted Time PHQ-9 Depression Total Score: 0 05/14/20 25 11:46 AM EDT documented as of this encounter Care Teams Physical Therapy Teacher Relationship Specialty Start Date End Date Bárbara Rader MD [address] [place] [address] PCP - General Internal Medicine 07/16/24 Luke Gayle PharmD Pharmacist Internal Medicine 09/04/22 [facility] 11/17/24 documented as of this encounter
--- OUTSIDE RECORDS SUMMARY | 2025-08-27 20:01 | XMS_ITS | Encounter Summary ---
Author Organization [employer] Address [address] [facility] 7t [place] [address] Care Team Providers Care Aerospace Control And Warning Systems Name Role Phone Carmine Patel MD Primary Care Provider +1- [phone] Luke Gayle PharmD Unavailable Unavail able Bárbara Rader MD Primary Care Provide r Encounter Details Date Type Department Care Team (Late st Contact Info) Description 02/14/2024 Orders Only [facility] MED & PEDS [address] [place], [place] [phone] Carmine Patel MD 505 [place], [place] [phone] Type 2 diabetes mellitus with other specified complication, without long-term current use of insulin ([facility]) (Primary Dx) Social History Tobacco [...] Description 09/03/2025 10:00 AM EST Clinical Support [facility] MEDICINE 230 [place] [address] 10/13/2025 1:30 PM EST Office Visit [facility] OPTOMETRY [address] [place] [address] Jacob, Abigail, OD 230 [place] [address] 11/12/2025 2:30 PM EST Office Visit [facility] MED[facility]INE 230 [place] [address] Bárbara Rader MD 230 [place] [address] documented as of this encounter Goals Goal [...] AM EDT Narrative 03/31/2024 9:51 AM EDT [place] [address] XRay Report Signed Patient: Magalie Solis MR#: [id number] : 1945 Acct:[id number] Age/Sex: 78 / F ADM Date: 03/13/24 Loc: [facility] Attending Dr: Ofelia Ly NP Ordering Physician: Saleem Young PA-C Date of Service: 03/13/24 Procedure(s): XR ankle RT min 3V Accession Number(s): [id number] cc: Carmine Patel MD; Saleem Young PA-C [...] callus formation. This study was presented to in March 31, 2024 for interpretation. PSA staff will provide results to referring provider at this time. Dictated By: Tierra Worthy MD Signed By: <Electronically signed by Tierra Worthy MD in OV> 03/31/24 0949 DD/ TD/TT: Welding Machine Setter: Procedure Note Donotuseinterpreter, Image - 03/31/[address] [address] XRay Report Signed Patient: Magalie Solis MMR#: [id number] : 1945cct:[id number] Age/Sex: 78 / FADM Date: 03/13/24 Loc: HO.XRAY Attending Dr: Ofelia Ly HAIRSPRING TRUING INSPECTOR Ordering Physician: Saleem Young PA-C Date of Service: 03/13/24 Procedure(s): XR ankle RT min 3V Accession Number(s): [id number] cc: Carmine Patel MD; Saleem Young PA-C [...] callus formation. This study was presented to in March 31, 2024 for interpretation. PSA staff will provide results to referring provider at this time. Dictated By: Tierra Worthy MD Signed By: <Electronically signed by Tierra Worthy MD in OV> 03/31/2449 DD/ TD/TT: Welding Machine Setter: [facility] External Provider IMG XR PROCEDURES Final Result * BI Mammogram Additional Views Right (03/12/2024 2:15 PM EDT) Anatomical Region Laterality Modality Breast Right Mammography 03/12/2024 2:15 PM EDT Narrative 03/12/2024 3:08 PM EDT [address] [place] [address] Mammography Report Signed Patient: Magalie Live MR#: [id number] : 1945 Acct:[id number] Age/Sex: 78 / F ADM Date: 03/12/24 Loc: HO.MAMMO Attending Dr: Carmine Patel MD Ordering Physician: Carmine Patel MD Results: 2 Benign Findings Date of Service: 03/12/24 Follow Up: 1 Year From Orig ina Mammogram Procedure(s): MM added views RT Accession Number(s): [id number] cc: Carmine Patel MD EXAMINATION: MM DIAGNOSTIC [...] in OV> 03/12/24 1504 DD/ 1415 TD/TT: Welding Machine Setter: Procedure Note Donotuseinterpreter, Image - 03/12/2024 [facility] [address] [place] [address] Mammography Report Signed Patient: Magalie Live MMR#: [id number] 8 : 6Acct:[id number] Age/Sex: 78 / FADM Date: 03/12/24 Loc: HO.MAMMO Attending Dr: Carmine Patel MD Ordering Physician: Carmine Patel MDResults: 2 Benign Findings Date of Service: 03/12/24Follow Up: 1 Year From Orig ina Mammogram Procedure(s): MM added views RT Accession Number(s): [id number] cc: Carmine Patel MD EXAMINATION: MM DIAGNOSTIC [...] in OV> 03/12/24 1504 DD/ 1415 TD/TT: Welding Machine Setter: Carmine Patel MD IMG BI PROCEDURES Final Res ult documented in this encounter Visit Diagnoses Diagnosis Type 2 diabetes mellitus with other specified complication, without long-term current use of insulin (HCC)- Primary documented in this encounter Additional Health Concerns Assessment Noted Time PHQ-9 Depression Total Score: 0 10/09/19 23 11:12 AM EST documented as of this encounter Care Teams Aerospace Control And Warning Systems Relationship Specialty Start Date End Date Carmine Patel MD [address] [place] [address] PCP - General Internal Medicine 11/16/15 07/15/24 Bárbara Rader MD 230 [place] [address] PCP - General Internal Medicine 07/16/24 Luke Gayle PharmD 505 [place] [address] Pharmacist Internal Medicine 09/04/22 [facility] 07/10/24 11/19/24 [facility] 11/17/24 documented as of this encounter
--- OUTSIDE RECORDS SUMMARY | 2025-08-27 20:01 | XMS_ITS | Encounter Summary ---
Author Organization [employer] Address [address] [facility] [address] [place] [address] Care Team Providers Care Pin Puller Name Role Phone Carmine Patel MD Primary Care Provider +1 [phone] Luke Gayle PharmD Unavailable Unavail able Bárbara Rader MD Primary Care Provide r Reason for Visit * Reason Onset Date Comments FYI 02/15/2024 Encounter Details Date Type Department Care Team ([facility] st Contact Info) Description 02/15/2024 Telephone [facility] MED & PEDS [address] [place], [place] [phone] Carmine Patel MD 505 [place], [place] [phone] FYI Social History Tobacco Use Types Packs/Day [...] - 02/15/2024 3:07 PM EDT Tc from [facility] with Tiffany calling to report pt has been discharged as of today from home PT. documented in this encounter Plan of Treatment Upcoming Encounters Date Type Department Care Team (Late st Contact Info) Description 09/03/2025 10:00 AM EST Clinical Support [facility] MEDICINE [address] [place] [address] 10/13/2025 1:30 PM EST Office Visit [facility] OPTOMETRY [address] [place] [address] Abigail James, OD 230 [place] [address] 11/12/2025 2:30 PM EST Office Visit [facility] MEDICINE [address] [place] [address] Bárbara Rader MD 230 [place] [address] documented as of this encounter Goals Goal [...] documented as of this encounter Care Teams Pin Puller Relationship Specialty Start Date End Date Carmine Patel MD 505 [place] [address] PCP - General Internal Medicine 11/16/15 07/15/24 Bárbara Rader MD [address] [place] [address] PCP - General Internal Medicine 07/16/24 Luke Gayle, PharmD 505 [place] [address] Pharmacist Internal Medicine 09/04/22 [facility] 07/10/24 11/19/24 [facility] 11/17/24 documented as of this encounter
--- OUTSIDE RECORDS SUMMARY | 2025-08-27 20:01 | XMS_ITS | Encounter Summary ---
Author Organization [employer] Address [address] [facility] [address] [address] Care Team Providers Care Head Of Science Name Role Phone Carmine Patel MD Primary Care Provider +1- [phone] Luke Gayle PharmD Unavailable Unavail able Bárbara Rader MD Primary Care Provide r Encounter Details Date Type Department Care Team ([facility] Contact Info) Description 06/21/2023 Orders Only [facility] CH[facility] MED & PEDS 505 [place], [place] [phone] Carmine Patel MD 505 [place], [place] [phone] Right hip pain (Primary Dx) Social History [...] Upcoming Encounters Date Type Department Care Team ([facility] Contact Info) Description 09/03/2025 10:00 AM EST Clinical Support [facility] MEDICINE [address] [place], [place] [phone] 10/13/2025 1:30 PM EST Office Visit [facility] OPTOMETRY [address] [place] [address] Abigail James, OD 230 [place] [address] 11/12/2025 2:30 PM EST Office Visit [facility] MEDICINE [address] [place] [address] Bárbara Rader MD [address] [place] documented as of this encounter Goals Goal [...] documented as of this encounter Care Teams Head Of Science Relationship Specialty Start Date End Date Carmine Patel MD 505 [place] [address] PCP - General Internal Medicine 11/16/15 07/15/24 Bárbara Rader MD 230 [place] [address] PCP - General Internal Medicine 07/16/24 Luke Gayle, PharmD 505 [place] [address] Pharmacist Internal Medicine 09/04/22 [facility] 07/10/24 11/19/24 [facility] 11/17/24 documented as of this encounter
--- OUTSIDE RECORDS SUMMARY | 2025-08-27 20:05 | XMS_ITS | Encounter Summary ---
Author Organization [employer] Address [address] [facility] [address] [place] [address] Care Team Providers Care Methods And Procedures Analyst Name Role Phone Carmine Patel MD Primary Care Provider +1- [phone] Luke Gayle PharmD Unavailable Unavail able Bárbara Rader MD Primary Care Provide r Reason for Visit * Reason Onset Date Comments Call Back Request 02/06/2024 Encounter Details Date Type Department Care Team (Late st Contact Info) Description 02/06/2024 Telephone [facility] MEDICINE [address] [place] [address] Carmine Patel MD 505 [place] [address] Call Back Request Social History Tobacco Use [...] 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 Advised son on PCP recommendations for sleep [...] and nothing is happening Please contact at [phone] documented in this encounter Plan of Treatment Upcoming Encounters Date Type Department Care Team ([facility] st Contact Info) Description 09/03/2025 10:00 AM EST Clinical Support [facility] MEDICINE [address] [place] [address] 10/13/2025 1:30 PM EST Office Visit [facility] OPTOMETRY [address] [place], [place] [phone] Abigail James, OD 230 [place] [address] 11/12/2025 2:30 PM EST Office Visit [facility] MEDICINE [address] [place], [place] [phone] Bárbara Rader MD 230 [place], [place] [phone] documented as of this encounter Goals Goal [...] documented as of this encounter Care Teams Methods And Procedures Analyst Relationship Specialty Start Date End Date Carmine Patel MD 505 [place] [address] PCP - General Internal Medicine 11/16/15 07/15/24 Bárbara Rader MD 230 [place] [address] PCP - General Internal Medicine 07/16/24 Luke Gayle, PharmD [address] [place] [address] Pharmacist Internal Medicine 09/04/22 [facility] 07/10/24 11/19/24 [facility] 11/17/24 documented as of this encounter
--- OUTSIDE RECORDS SUMMARY | 2025-08-27 20:05 | XMS_ITS | Encounter Summary ---
Author Organization [employer] Address [address] [facility] [address] [place] [address] Care Team Providers Care Director Employee Safety And Health Name Role Phone Carmine Patel MD Primary Care Provider +1- [phone] Luke Gayle PharmD Unavailable Unavail able Bárbara Rader MD Primary Care Provide r Reason for Visit * Reason Onset Date Comments FYI 05/07/2024 Encounter Details Date Type Department Care Team (Late st Contact Info) Description 05/07/2024 Telephone [facility] MEDICINE [address] [place] [address] Carmine Patel MD 505 [place] [address] FYI Social History Tobacco Use Types Packs/Day [...] any questions you can contact Terence at [phone]. documented in this encounter Plan of Treatment Upcoming Encounters Date Type Department Care Team (Late st Contact Info) Description 09/03/2025 10:00 AM EST Clinical Support [facility] MEDICINE [address] [place] [address] 10/13/2025 1:30 PM EST Office Visit [facility] OPTOMETRY [address] [place] [address] Abigail James, OD 230 [place] [address] 11/12/2025 2:30 PM EST Office Visit [facility] MEDICINE [address] [place] [address] Bárbara Rader MD [address] [place] [address] documented as of this encounter Goals Goal [...] as of this encounter Care Teams Director Employee Safety And Health Relationship Specialty Start Date End Date Carmine Patel MD 505 [place] [address] PCP - General Internal Medicine 11/16/15 07/15/24 Bárbara Rader MD [address] [place] [address] PCP - General Internal Medicine 07/16/24 Luke Gayle, PharmD 505 [place] [address] Pharmacist Internal Medicine 09/04/22 [facility] 07/10/24 11/19/24 [facility] 11/17/24 documented as of this encounter
--- OUTSIDE RECORDS SUMMARY | 2025-08-27 20:06 | XMS_ITS | Encounter Summary ---
Author Organization [employer] Address 75 [facility] 7t [place] [address] Care Team Providers Care Rouge Presser Name Role Phone Luke Gayle PharmD Unavailable Unavail able Bárbara Rader MD Primary Care Provide r Reason for Visit * Reason Onset Date Comments Appointment Request 09/15/2024 Encounter Details Date Type Department Care Team ([facility] st Contact Info) Description 09/15/2024 Telephone [facility] [address] [place] [address] Bárbara Rader MD 230 [place], [place] [phone] Appointment Request Social History Tobacco Use Types [...] 09/03/2025 10:00 AM EST Clinical Support [facility] MEDIC[facility] [address] [place] [address] 10/13/2025 1:30 PM EST Office Visit [facility] OPTOMETRY [address] [place] [address] Abigail James, OD 230 [place], [place] [phone] 11/12/2025 2:30 PM EST Office Visit [facility] MED[facility]INE [address] [place] [address] Bárbara Rader MD [address] [place] [address] documented as of this encounter Goals Goal [...] documented as of this encounter Care Teams Rouge Presser Relationship Specialty Start Date End Date Bárbara Rader MD [address] [place] [address] PCP - General Internal Medicine 07/16/24 Luke Gayle, PharmD Pharmacist Internal Medicine 09/04/22 [facility] 07/10/24 11/19/24 [facility] 11/17/24 documented as of this encounter
--- OUTSIDE RECORDS SUMMARY | 2025-08-27 20:06 | XMS_ITS | Encounter Summary ---
Author Organization [employer] Address [address] [facility] 7t [place] [address] Care Team Providers Care Rn Interventional Name Role Phone Carmine Patel MD Primary Care Provider +1- [phone] Luke Gayle PharmD Unavailable Unavail able Bárbara Rader MD Primary Care Provide r Encounter Details Date Type Department Care Team (Late st Contact Info) Description 06/11/2024 Orders Only [facility] MED & PEDS 505 [place], [place] [phone] Carmine Patel MD 505 [place], [place] [phone] Pruritus (Primary Dx) Social History Tobacco Use [...] 10:00 AM EST Clinical Support [facility] MEDICINE 230 [place] [address] 10/13/2025 1:30 PM EST Office Visit [facility] OPTOMETRY [address] [place] [address] Jacob, Abigail, OD 230 [place] [address] 11/12/2025 2:30 PM EST Office Visit [facility] MEDICINE 230 [place] [address] Bárbara Rader MD [address] [place] [address] documented as of this encounter Goals Goal [...] as of this encounter Care Teams Rn Interventional Relationship Specialty Start Date End Date Carmine Patel MD 505 [place] [address] PCP - General Internal Medicine 11/16/15 07/15/24 Bárbara Rader MD [address] [place] [address] PCP - General Internal Medicine 07/16/24 Luke Gayle, JarettD 505 [place] [address] Pharmacist Internal Medicine 09/04/22 [facility] 07/10/24 11/19/24 [facility] 11/17/24 documented as of this encounter
--- OUTSIDE RECORDS SUMMARY | 2025-08-27 20:06 | XMS_ITS | Encounter Summary ---
Author Organization [employer] Address [address] [place] [address] [address] [address] Care Team Providers Care Drill Runner Name Role Phone Carmine Patel MD Primary Care Provider +1 [phone] Luke Gayle PharmD Unavailable Unavail able Bárbara Rader MD Primary Care Provide r Reason for Referral * Consultation (Routine) - Closed Specialty Diagnoses / Procedures Referred By Alden andres Referred To Contact Physical Therapy Diagnoses Acute right ankle pain Carmine Patel MD [address] [place] [address] Phone: tel: fax: [facility] [address] [place] [address] Phone: tel: fax: Referral ID Status Reason Start Date Expiration Date V isits Requested Visits Authorized [id number] Closed Specialty Services Required 03/28/2024 03/28/2025 1 1 Encounter Details Date Type Department Care Team (Late st Contact Info) Description 03/24/2024 Orders Only [facility] MED & PEDS [address] [place], [place] [phone] Carmine Patel MD [address] [place] [address] Acute right ankle pain (Primary Dx) Social [...] [facility] [address] [place] [address] 10/13/2025 1:30 PM EST Office Visit [facility] OPTOMETRY [address] [place] [address] Abigail James, OD [address] [place] [address] 11/12/2025 2:30 PM EST Office Visit [facility] MEDICINE [address] [place] [address] Bárbara Rader MD [address] [place] [address] Scheduled Orders Name Type Priority Associated Diagnoses [...] Gayle, Shan documented as of this encounter Procedures Procedure Name Priority Date/Time Associated Diagnosis Comments XR KNEE 4+ VIEWS RIGHT Routine 03/28/2024 11:51 AM EDT documented in this encounter Results * XR Knee 4+ Views Right (03/28/2024 11:51 AM EDT) Anatomical Region Laterality Modality Lower Extremities, Knee Right Radiogra phic Imaging 03/28/2024 11:5 1 AM EDT Narrative 03/28/2024 12:12 PM EDT [address] [address] XRay Report Signed Patient: Magalie Solis MR#: [id number] : 1945 Acct:[id number] Age/Sex: 78 / F ADM Date: 03/28/24 Loc: HO.ED Attending Dr: Ordering Physician: Elzbieta Franz Date of Service: 03/28/24 Procedure(s): XR knee RT 4V Accession Number(s): [id number] cc: Carmine Patel MD; Elzbieta Franz EXAMINATION: [...] in OV> 03/28/24 1208 DD/ 1151 TD/TT: Plastics Fitter: Procedure Note Donotuseinterpreter, Image - 03/28/2024 [place] [address] XRay Report Signed Patient: Magalie Solis MMR#: [id number] : 6Acct:[id number] Age/Sex: 78 / FADM Date: 03/28/24 Loc: HO.ED Attending Dr: Ordering Physician: Elzbieta Franz Date of Service: 03/28/24 Procedure(s): XR knee RT 4V Accession Number(s): [id number] cc: Carmine Patel MD; Elzbieta Franz EXAMINATION: [...] in OV> 03/28/24 1208 DD/ 1151 TD/TT: Plastics Fitter: [facility] External Provider IMG XR PROCEDURES Final Result documented in this encounter Visit Diagnoses Diagnosis Acute right ankle pain- Primary documented in this encounter Additional Health Concerns Assessment Noted Time PHQ-9 Depression Total Score: 0 10/09/19 23 11:12 AM EST documented as of this encounter Care Teams Drill Runner Relationship Specialty Start Date End Date Carmine Patel MD [address] [place] [address] PCP - General Internal Medicine 11/16/15 07/15/24 Bárbara Rader MD [address] [place] [address] PCP - General Internal Medicine 07/16/24 Luke Gayle PharmD [address] [place] [address] Pharmacist Internal Medicine 09/04/22 [facility] 07/10/24 11/19/24 [facility] 11/17/24 documented as of this encounter
== END 2025-08-27 13:33 | disposition home or self-care (01) ==
LOC: HO.HPS 13:04
PROVIDERS: PCP Internal Medicine; Visit Provider Internal Medicine Pulmonary Disease
DX: E66.2 Morbid (severe) obesity with alveolar hypoventilation (principal); G47.33 Obstructive sleep apnea (adult) (pediatric)
CPT/HCPCS: 99213

== ENCOUNTER → 2025-08-27 13:03 | Outpatient (BNVA) | payer OTHER, SELFPAY | PROVIDERS: PCP Internal Medicine; Visit Provider Internal Medicine Pulmonary Disease | DX: G47.33 Obstructive sleep apnea (adult) (pediatric) (principal); Z99.89 Dependence on other enabling machines and devices; Z68.41 Body mass index [BMI] 40.0-44.9, adult | CPT/HCPCS: 99212 ==

== ENCOUNTER 2025-09-01 09:44 | Outpatient (AMB) | payer OTHER, SELFPAY ==
[2025-09-01 09:47] VITALS: BP 182/77; PULSE 77; BMI 44.1
--- NOTE | 2025-09-01 09:47 | MHC.OFFVIS ---
Vital Signs 09/01/25 09:47 Height 5 ft 3 in Weight 249 lb BMI 44.1 BP 182/77 H Blood Pressure Location Rt brachial Position Sitting Pulse 77 Intake Visit Reasons: EIC~ Back Intake Note: Patient referred by PCP Dr. Blanchard for evaluation and treatment of sebaceous cyst on back. Present for many yrs. Patient c/o: painful at times. Keeps filling up. Tobacco Sieve Operator Required: Yes Tobacco Sieve Operator Language: Armenian Accompanied by: cousin Ron Allergies No Known Allergies (No Known Allergies*) Allergy (Verified 09/01/25 09:54) Medication List - Last Reconciled 09/01/25 by Jj Cabral MD acetaminophen (Tylenol) 650 mg (2 x 325 mg) PO QID PRN albuterol sulfate 90 mcg/actuation 2 puffs inhalation Q4H PRN albuterol sulfate 2.5 mg inhalation Q6H PRN amlodipine 2.5 mg PO QAM carvedilol 12.5 mg See Protocol PO BIDWM cetirizine 10 mg PO DAILY PRN [Custom Ankle Foot Orthosis Please dispense custom Gely AFO for right ankle.] [Custom Foot Ankle Orthosis Please dispense custom ankle foot orthosis (Gely brace) for right lower extremity] ergocalciferol (vitamin D2) 1,250 mcg PO MO famotidine 20 mg PO BID furosemide 40 mg PO DAILY hydrocortisone 1% 1 appl topical BID PRN insulin glargine (Lantus U-100 Insulin) 20 units (0.2 mL) subcut BEDTIME insulin lispro (Humalog KwikPen (U-100) Insulin) 5 units subcut BIDWM ketotifen fumarate 0.025%(0.035%) 1 drp ophthalmic (eye) Q12H PRN lancets (TRUEplus Lancets) As directed losartan 50 mg PO BID metformin ER 1,000 mg PO DAILY@1700 ondansetron 4 - 8 mg PO Q8H PRN pantoprazole 20 mg PO DAILY@0630 pravastatin 40 mg PO BEDTIME prednisone 40 mg (2 x 20 mg) PO DAILY HPI Comments Details: 80-year-old lady presents with a history of chronic upper back cyst. She desires removal. She denies any history of trauma or instrumentation to the region. [facility] Medical History Diabetes mellitus Unspecified urinary incontinence NICO (obstructive sleep apnea) CHF (congestive heart failure) 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 indication of end stage renal disease in patient 6 to 64 years of age Lymphadenopathy Abdominal pain Bursitis of right hip Osteoarthritis of right hip Restrictive ventilatory defect Dyspnea on exertion Varicose veins of right lower extremity with inflammation Pneumonitis Pulmonary hypertension Hypertensive cardiovascular disease Acute hypoxic on chronic hypercapnic respiratory failure Acute on chronic respiratory failure with hypoxemia Obesity hypoventilation syndrome GERD (gastroesophageal reflux disease) Hypertension COPD (chronic obstructive pulmonary disease) Surgical History S/P laparoscopic cholecystectomy (07/14/21) Family History Mother Diabetes Social History Household Members: Other Household Members Other:: Cousin Housing: Unknown / Unable to assess Do you presently have visiting nurse or other home services: Yes Alcohol intake: never Patient Tobacco Use Status: Former Tobacco user Tobacco use type: Cigarette Years Smoked: 20 Advance Directives Date on File: 02/22/22 service: No Current occupational status: unemployed and disabled Review of Systems Const All systems reviewed & are unremarkable except as noted in HPI and below Physical Exam Vital Signs: Last Vital Signs Pulse 77 09/01/25 09:47 BP 182/77 H 09/01/25 09:47 BMI result Body Mass Index 44.1 Const General: cooperative, healthy appearing and comfortable Nutritional Appearance: obese Orientation/consciousness: oriented to person, oriented to place and oriented to time HEENT Head: Yes normal to inspection Ears: hearing grossly normal bilaterally General nose exam: Normal external nose present Eyes Pupils: Equal, round and reactive pupils present EOM: EOMs intact bilaterally Neck Neck: Yes normal visual inspection Chest Chest palpation & inspection: normal inspection of the chest Resp Effort & Inspection: normal respiratory effort and able to speak in complete sentences Cardio Rate: regular rate Rhythm: regular rhythm GI Inspection: Yes normal to inspection Back/Spine/Pelvis Other: In the center of her upper mid back she exhibits approximate 2 cm sebaceous cyst with central comedo. There is no surrounding erythema edema or discharge. It is nontender. Neuro General: oriented to person, oriented to place and oriented to time Cranial nerves: Yes CN's II-XII intact bilaterally and Yes Equal, round and reactive pupils present Assessment & Plan Assessment & Plan (1) Sebaceous cyst: Code(s): L72.3 - Sebaceous cyst Category: Medical Plan: I reviewed with the patient the nature of excisional biopsy. I also reviewed with her in detail the risks that are involved. These include but are not limited to the risk of bleeding the risks infection the risk of recurrence the risk of scarring the risk of chronic pain in the risks that she might need further procedures in the future were all reviewed with her in detail. She told me that she understood. She told me that she accepted the risks and still wished to proceed with surgery. Coding Level of Care Code New Pt Level 3 (70450) Diagnoses Sebaceous cyst L72.3 Time Spent (min) 30 Comment Patient visit record review and coordination of care time
--- OUTSIDE RECORDS SUMMARY | 2025-09-01 11:36 | XMS_ITS | Encounter Summary ---
Author Organization [employer] Address [address] [facility] 7t [place] [address] Care Team Providers Care Bladder Changer Name Role Phone Luke Gayle PharmD Unavailable Unavail able Bárbara Rader MD Primary Care Provide r Reason for Visit * Reason Comments Med Refill Encounter Details Date Type Department Care Team ([facility] st Contact Info) Description 11/04/2024 Refill [facility] [address] [place] [address] Carmine Patel MD 505 [place] [address] Epigastric pain Social History Tobacco Use Types [...] Description 09/03/2025 10:00 AM EST Clinical Support [facility] [address] [place] [address] 10/13/2025 1:30 PM EST Office Visit [facility] OPTOMETRY [address] [place] [address] Jacob, Abigail, OD 230 [place] [address] 11/12/2025 2:30 PM EST Office Visit [facility] [address] [place] [address] Bárbara Rader MD 230 [place] [address] documented as of this encounter Goals Goal [...] documented as of this encounter Care Teams Bladder Changer Relationship Specialty Start Date End Date Bárbara Rader MD [address] [place] [address] PCP - General Internal Medicine 07/16/24 Luke Gayle PharmD Pharmacist Internal Medicine 09/04/22 [facility] 07/10/24 11/19/24 [facility] 11/17/24 documented as of this encounter
--- OUTSIDE RECORDS SUMMARY | 2025-09-01 11:36 | XMS_ITS | Encounter Summary ---
Author Organization [employer] Address [address] [facility] 7t [place] [address] Care Team Providers Care Project Consultant Name Role Phone Luke Gayle PharmD Unavailable Unavail able Bárbara Rader MD Primary Care Provide r Reason for Visit * Reason Onset Date Comments Durable Medical Equipment 09/03/2024 Encounter Details Date Type Department Care Team ([facility] st Contact Info) Description 09/03/2024 Telephone [facility] [address] [place] [address] Bárbara Rader MD [address] [place], [place] [phone] Durable Medical Equipment Social History Tobacco Use [...] - 09/03/2024 1:40 PM EST Tc from [facility] requesting a large commode. States the one pt has is to small. Anyfurther questions may contact phone # [phone]. documented in this encounter Plan of Treatment Upcoming Encounters Date Type Department Care Team ([facility] st Contact Info) Description 09/03/2025 10:00 AM EST Clinical Support [facility] [address] [place] [address] 10/13/2025 1:30 PM EST Office Visit [facility] OPTOMETRY [address] [place] [address] Abigail James, SULAIMAN [address] [place] [address] 11/12/2025 2:30 PM EST Office Visit [facility] [address] [place] [address] Bárbara Rader MD [address] [place] [address] documented as of this encounter Goals Goal [...] documented as of this encounter Care Teams Project Consultant Relationship Specialty Start Date End Date Bárbara Rader MD [address] [place] [address] PCP - General Internal Medicine 07/16/24 Luke Gayle, PharmD Pharmacist Internal Medicine 09/04/22 [facility] 07/10/24 11/19/24 [facility] 11/17/24 documented as of this encounter
--- OUTSIDE RECORDS SUMMARY | 2025-09-01 11:36 | XMS_ITS | Encounter Summary ---
Author Organization [employer] Address [address] [facility] 7t [place] [address] Care Team Providers Care Furnace Repairer Helper Name Role Phone Carmine Patel MD Primary Care Provider +1- [phone] Luke Gayle PharmD Unavailable Unavail able Bárbara Rader MD Primary Care Provide r Encounter Details Date Type Department Care Team (Late st Contact Info) Description 06/26/2024 Orders Only [facility] CHC MED & PEDS [address] [place], [place] [phone] Carmine Patel MD [address] [place], [place] [phone] Burning sensation (Primary Dx) Social History Tobacco [...] Description 09/03/2025 10:00 AM EST Clinical Support [facility] MEDICINE [address] [place] [address] 10/13/2025 1:30 PM EST Office Visit [facility] OPTOMETRY [address] [place] [address] Jacob, Abigail, OD 230 [place] [address] 11/12/2025 2:30 PM EST Office Visit [facility] MEDICINE [address] [place] [address] Bárbara Rader MD [address] [place] [address] documented as of this encounter Goals Goal [...] documented as of this encounter Care Teams Furnace Repairer Helper Relationship Specialty Start Date End Date Carmine Patel MD [address] [place] [address] PCP - General Internal Medicine 11/16/15 07/15/24 Bárbara Rader MD [address] [place] [address] PCP - General Internal Medicine 07/16/24 Luke Gayle, JarettD [address] [place] [address] Pharmacist Internal Medicine 09/04/22 [facility] 07/10/24 11/19/24 [facility] 11/17/24 documented as of this encounter
--- OUTSIDE RECORDS SUMMARY | 2025-09-01 11:36 | XMS_ITS | Encounter Summary ---
Author Organization [employer] Address [address] [facility] 7t [place] [address] Care Team Providers Care Rail Car Welder Name Role Phone Luke Gayle PharmD Unavailable Unavail able Bárbara Rader MD Primary Care Provide r Reason for Visit * Reason Comments Med Refill Encounter Details Date Type Department Care Team ([facility] st Contact Info) Description 12/15/2024 Refill [facility] MEDICINE 230 [place] [address] Carmine Patel MD 505 [place] [address] Social History Tobacco Use Types Packs/Day Years [...] Description 09/03/2025 10:00 AM EST Clinical Support [facility] MEDICINE [address] [place] [address] 10/13/2025 1:30 PM EST Office Visit [facility] OPTOMETRY [address] [place] [address] Jacob, Abigail, OD [address] [place] [address] 11/12/2025 2:30 PM EST Office Visit [facility] MEDICINE [address] [place] [address] Bárbara Rader MD 230 [place] [address] documented as of this encounter Goals Goal [...] documented as of this encounter Care Teams Rail Car Welder Relationship Specialty Start Date End Date Bárbara Rader MD [address] [place] [address] PCP - General Internal Medicine 07/16/24 Luke Gyale PharmD Pharmacist Internal Medicine 09/04/22 [facility] 11/17/24 documented as of this encounter
--- OUTSIDE RECORDS SUMMARY | 2025-09-01 11:36 | XMS_ITS | Encounter Summary ---
Author Organization [employer] Address [address] [facility] 7t [place] [address] Care Team Providers Care Cardiac Catheterization Technologist Name Role Phone Luke Gayle PharmD Unavailable Unavail able Bárbara Rader MD Primary Care Provide r Reason for Visit * Reason Onset Date Comments Med Refill 07/23/2025 Encounter Details Date Type Department Care Team ([facility] st Contact Info) Description 07/23/2025 Telephone [facility] MEDICINE [address] [place] [address] Bárbara Rader MD [address] [place], [place] [phone] Med Refill Social History Tobacco Use Types [...] 3:19 PM EST Medication was sent to [facility] on 05/14/25 with 2 refills. * Telephone Encounter - Mary Polo - 07/23/2025 3:16 PM EST TC from pt requesting medication refill. Medications needing refill : - Tirzepatide (Mounjaro) 2.5 MG/0.5ML solution auto-injector To be sent to: [facility] - [place], [place] - [address] documented in this encounter Plan of Treatment Upcoming Encounters Date Type Department Care Team (Late st Contact Info) Description 09/03/2025 10:00 AM EST Clinical Support [facility] MEDICINE [address] [place] [address] 10/13/2025 1:30 PM EST Office Visit [facility] OPTOMETRY [address] [place], [place] [phone] Abigail James, OD 230 [place] [address] 11/12/2025 2:30 PM EST Office Visit [facility] MEDICINE [address] [place], [place] [phone] Bárbara Rader MD [address] [place], [place] [phone] documented as of this encounter Goals Goal [...] documented as of this encounter Care Teams Cardiac Catheterization Technologist Relationship Specialty Start Date End Date Bárbara Rader MD [address] [place], [place] [phone] PCP - General Internal Medicine 07/16/24 Luke Gayle, PharmD Pharmacist Internal Medicine 09/04/22 [facility] 11/17/24 documented as of this encounter
--- OUTSIDE RECORDS SUMMARY | 2025-09-01 11:36 | XMS_ITS | Encounter Summary ---
Author Organization [employer] Address [address] [facility] 7[address] [place] [address] Care Team Providers Care Harmonic Analyst Name Role Phone Carmine Patel MD Primary Care Provider +1- [phone] Luke Gayle PharmD Unavailable Unavail able Bárbara Rader MD Primary Care Provide r Encounter Details Date Type Department Care Team ([facility] Contact Info) Description 06/21/2023 Orders Only [facility] MED & PEDS [address] [place], [place] [phone] Carmine Patel MD [address] [place], [place] [phone] Right hip pain (Primary Dx) Social History [...] Upcoming Encounters Date Type Department Care Team ([facility] Contact Info) Description 09/03/2025 10:00 AM EST Clinical Support [facility] [address] [place], [place] [phone] 10/13/2025 1:30 PM EST Office Visit [facility] OPTOMETRY [address] [place] [address] Abigail James, OD [address] [place] [address] 11/12/2025 2:30 PM EST Office Visit [facility] [address] [place] [address] Bárbara Rader MD [address] [place], [place] documented as of this encounter Goals [...] documented as of this encounter Care Teams Harmonic Analyst Relationship Specialty Start Date End Date Carmine Patel MD 505 [place] [address] PCP - General Internal Medicine 11/16/15 07/15/24 Bárbara Rader MD [address] [place] [address] PCP - General Internal Medicine 07/16/24 Luke Gayle, PharmD 505 [facility] [place] [address] Pharmacist Internal Medicine 09/04/22 [facility] 07/10/24 11/19/24 [facility] 11/17/24 documented as of this encounter
--- OUTSIDE RECORDS SUMMARY | 2025-09-01 11:36 | XMS_ITS | Encounter Summary ---
Author Organization [employer] [facility] Address [address] [facility] 7[address] [place] [address] Care Team Providers Care Supervisor Smoke Control Name Role Phone Carmine Patel MD Primary Care Provider +1- [phone] Luke Gayle PharmD Unavailable Unavail able Bárbara Rader MD Primary Care Provide r Encounter Details Date Type Department Care Team (Latest Contact Info) Description 06/26/2019 Abstract [facility] CONVERSIONS Dental, Provider, DDS Social History Tobacco [...] 10:00 AM EST Clinical Support [facility] MEDICINE 230 [place] [address] 10/13/2025 1:30 PM EST Office Visit [facility] OPTOMETRY [address] [place] [address] Abigail James, SULAIMAN [address] [place] [address] 11/12/2025 2:30 PM EST Office Visit [facility] MEDICINE [address] [place], [place] [phone] Bárbara Rader MD 230 [place] [address] documented as of this encounter Visit Diagnoses Not on filedocumented in this encounter Care Teams Supervisor Smoke Control Relationship Specialty Start Date End Date Carmine Patel MD [address] [place] [address] PCP - General Internal Medicine 11/16/15 07/15/24 Bárbara Rader MD [address] [place] [address] PCP - General Internal Medicine 07/16/24 Luke Gayle, JarettD 505 [place] [address] Pharmacist Internal Medicine 09/04/22 [facility] 07/10/24 11/19/24 [facility] 11/17/24 documented as of this encounter
--- OUTSIDE RECORDS SUMMARY | 2025-09-01 11:36 | XMS_ITS | Encounter Summary ---
Author Organization [employer] Address [address] [facility] 7t [place] [address] Care Team Providers Care Professor Of Archaeology Name Role Phone Carmine Patel MD Primary Care Provider +1 [phone] Luke Gayle PharmD Unavailable Unavail able Bárbara Rader MD Primary Care Provide r Reason for Visit * Reason Onset Date Comments FYI 02/15/2024 Encounter Details Date Type Department Care Team ([facility] st Contact Info) Description 02/15/2024 Telephone [facility] MED & PEDS [address] [place], [place] [phone] Carmine Patel MD 505 [place], [place] [phone] FYI Social History Tobacco Use Types Packs/Day [...] - 02/15/2024 3:07 PM EDT Tc from [facility] with Tiffany calling to report pt has been discharged as of today from home PT. documented in this encounter Plan of Treatment Upcoming Encounters Date Type Department Care Team (Late st Contact Info) Description 09/03/2025 10:00 AM EST Clinical Support [facility] [address] [place] [address] 10/13/2025 1:30 PM EST Office Visit [facility] [address] [place] [address] Abigail James, OD 230 [place] [address] 11/12/2025 2:30 PM EST Office Visit [facility] [address] [place] [address] Bárbara Rader MD 230 [place] [address] documented as of this encounter Goals Goal [...] documented as of this encounter Care Teams Professor Of Archaeology Relationship Specialty Start Date End Date Carmine Patel MD [address] [place] [address] PCP - General Internal Medicine 11/16/15 07/15/24 Bárbara Rader MD [address] [place] [address] PCP - General Internal Medicine 07/16/24 Luke Gayle, PharmD 505 [place] [address] Pharmacist Internal Medicine 09/04/22 [facility] 07/10/24 11/19/24 [facility] 11/17/24 documented as of this encounter
--- OUTSIDE RECORDS SUMMARY | 2025-09-01 11:36 | XMS_ITS | Encounter Summary ---
Author Organization [employer] Address 75 [facility] 7t [place] [address] Care Team Providers Care Roofing Foreman Name Role Phone Luke Gayle PharmD Unavailable Unavail able Bárbara Rader MD Primary Care Provide r Reason for Visit * Reason Comments Med Refill Encounter Details Date Type Department Care Team ([facility] st Contact Info) Description 12/15/2024 Refill [facility] [address] [place] [address] Bárbara Rader MD [address] [place] [address] Other hyperlipidemia Social History Tobacco Use Types [...] Description 09/03/2025 10:00 AM EST Clinical Support [facility] [address] [place] [address] 10/13/2025 1:30 PM EST Office Visit [facility] [address] [place] [address] Jacob, Abigail, OD [address] [place] [address] 11/12/2025 2:30 PM EST Office Visit [facility] [address] [place] [address] Bárbara Rader MD [address] [place] [address] documented as of this encounter Goals Goal [...] documented as of this encounter Care Teams Roofing Foreman Relationship Specialty Start Date End Date Bárbara Rader MD [address] [place] [phone] PCP - General Internal Medicine 07/16/24 Luke Gayle PharmD Pharmacist Internal Medicine 09/04/22 [facility] 11/17/24 documented as of this encounter
--- OUTSIDE RECORDS SUMMARY | 2025-09-01 11:36 | XMS_ITS | Encounter Summary ---
Author Organization [employer] Address 75 [facility] 7t [place] [address] Care Team Providers Care Soft Mud Molder Name Role Phone Luke Gayle PharmD Unavailable Unavail able Bárbara Rader MD Primary Care Provide r Reason for Visit * Reason Onset Date Comments XIANG MOFFETT 08/12/2025 Encounter Details Date Type Department Care Team ([facility] st Contact Info) Description 08/12/2025 Telephone [facility] [address] [place] [address] Ayla Okeefe RN [address] [place] [address] XIANG MOFFETT Social History Tobacco Use Types [...] at the pharmacy. TC placed to patient [phone] via [employer] ([employer] #[id number]) to schedule initiation appointment. RN scheduled patient for 09/03/25 at 10am. Patient agreed to appointment date and time. Patient to f/u PRN. * Telephone Encounter - Ayla Okeefe RN - 08/12/2025 4:23 PM EST Continuous Glucose Monitor Prior Authorization Documentation: CGM PA initiated for: CGM DEVICE: Freestyle Silvana 3 PLUS sensors, reader and jaelyn test strips Insurance: [facility] PA form completed and faxed to [facility]. Patient's preferred pharmacy: [facility] - [address] [facility] [phone] CGM PA should be approved by: 08/26/2025 Postponing message to 08/27/25 to ensure approval. Pt. To be contacted for initiation appointment pending decision. documented in this encounter Plan of Treatment Upcoming Encounters Date Type Department Care Team (Late st Contact Info) Description 09/03/2025 10:00 AM EST Clinical Support [facility] [address] [place] [address] 10/13/2025 1:30 PM EST Office Visit [facility] OPTOMETRY [address] [place] [address] Jacob, Abigail, OD 230 [place] [address] 11/12/2025 2:30 PM EST Office Visit [facility] [address] [place] [address] Bárbara Rader MD [address] [place] [address] documented as of this encounter Goals Goal [...] documented as of this encounter Care Teams Soft Mud Molder Relationship Specialty Start Date End Date Bárbara Rader MD [address] [place] [address] PCP - General Internal Medicine 07/16/24 Luke Gayle PharmD Pharmacist Internal Medicine 09/04/22 [facility] 11/17/24 documented as of this encounter
--- OUTSIDE RECORDS SUMMARY | 2025-09-01 11:36 | XMS_ITS | Clinical Summary ---
Author Organization [employer] Address 75 [facility] 7t [place] [address] Care Team Providers Care Engineer And Geologist Name Role Phone Luke Gayle PharmD Unavailable [...] 30 tablet 11 024 Active Continuous Glucose Window Treatment Installer (FreeStyle Silvana 2 [place]) deviceIndications :Type 2 diabetes mellitus with other specified complication, without long-term current use of insulin ([facility]) Scan sensor every 8 hours 1 each 024 Active Continuous Glucose Sensor (FreeStyle Silvana 2 Sensor) miscIndications:T ype 2 diabetes mellitus with other specified complication, without long-term current use of insulin ([facility]) Apply 1 sensor every 14 days 2 each 11 024 Active Blood Glucose Monitoring Suppl (FreeStyle [place] Lite) w/Device kitIndications:Ty pe 2 diabetes mellitus with other specified complication, without long-term current use of insulin ([facility]) Use to test blood sugar 2 times daily 1 kit 024 Active ergocalciferol (Vitamin D2) 1.25 MG (54567 UT) capsule TAKE ONE CAPSULE EVERY WEEK 12 capsule 5 024 Active loratadine (Claritin) 10 MG tabletIndications :Pruritus Take 1 tablet (10 mg) by mouth Once per day. 30 tablet 024 Active Easy Touch Lancets 33G/Twist miscIndications:T ype 2 diabetes mellitus with other specified complication, without long-term current use of insulin ([facility]) TEST BLOOD SUGAR TWICE DAILY 100 each [...] long-term current use of insulin ([facility]) Inject 2.5 mg under the skin [...] long-term current use of insulin ([facility]) INJECT 5 UNITS SUBCUTANEOUSLY THREE TIMES DAILY WITH BREAKFAST, WITH LUNCH, AND WITH DINNER 15 mL 8 Active furosemide (Lasix) 40 MG tabletIndications :Stage 3a chronic kidney disease (CMS/HCC) ([facility]) TAKE 1 TABLET BY MOUTH EVERY MORNING 90 tablet 1 Active Lantus SoloStar 100 UNIT/ML penIndications:Ty pe 2 diabetes mellitus with other specified complication, without long-term current use of insulin ([facility]) INJECT 20 UNITS SUBCUTANEOUSLY AT BEDTIME 15 mL 3 Active Continuous Glucose Window Treatment Installer (FreeStyle Silvana 3 [place]) deviceIndications :Type 2 diabetes mellitus with other specified complication, without long-term current use of insulin ([facility]) 1 each Once per day. Use as directed for CGM 1 each Active Continuous Glucose Sensor (FreeStyle Silvana 3 Plus Sensor) miscIndications:T ype 2 diabetes mellitus with other specified complication, without long-term current use of insulin ([facility]) 1 each every 15 days. Apply 1 every 15 days as directed for CGM 2 each Active glucose blood (FreeStyle Precision Cahrles Test) test stripIndications: Type 2 diabetes mellitus with other specified complication, without long-term current use of insulin ([facility]) Use to test blood sugar 3 times [...] for therapy UTI symptoms 08/05/2024 Chronic bronchitis ([facility]) 07/16/2024 Assessment & Plan (07/16/2024 12:43 PM [...] percocet offered. Stage 3 chronic kidney disease ([facility]/HCC) 021 Type 2 diabetes mellitus [...] I advised for her to go and pickler helper her medication at the pharmacy (new medication [...] Type Department Care Team Description 08/21/[address] [address] Bárbara Rader MD 08/12/[address] [address] Ayla Okeefe RN CGM PA 08/11/2025 11:00 AM EST Office Visit [address] [address] Bárbara Rader MD Type 2 diabetes mellitus [...] Recurrent UTI; Sebaceous cyst 08/11/2025 Results Follow-Up [address] [address] Bárbara Rader MD Urinalysis, Complete, with Reflex to Culture, Culture, Urine, Routine 08/11/2025 Travel 08/10/[address] [phone] Bárbara Rader MD Chart Prep 08/10/2025 Orders Only [facility] [address] [place] [address] Bárbara Rader MD 08/03/2025 Patient Outreach [address] [address] Bárbara Rader MD Pre-visit Planning (SDOH screening completed on 02/20/2025) 07/23/[address] [address] Bárbara Rader MD Med Refill 07/23/[address] [address] Carmine Patel MD Type 2 diabetes mellitus with other specified complication, without long-term current use of insulin (HCC) 07/21/[address] [address] Bárbara Rader MD Call Back Request 06/09/[address] [address] Bárbara Rader MD 06/08/[address] [address] Bárbara Rader MD Durable Medical Equipment (DME Request: Power Recliner) 06/08/[address] [address] Carmine Patel MD Type 2 diabetes mellitus with other specified complication, without long-term current use of insulin (CMS/HCC); Stage 3a chronic kidney disease (CMS/HCC) 06/08/2025 Refill [facility] [address] [place] [address] Bárbara Rader MD Stage 3a chronic kidney disease (CMS/HCC) 06/05/2025 Results Follow-Up [address] [address] Bárbara Rader MD Urinalysis, Complete, with Reflex to Culture 06/05/2025 Orders Only [facility] [address] [place] [address] Bárbara Rader MD Recurrent UTI (Primary Dx) 06/05/2025 Orders Only [facility] [address] [place] [address] Bárbara Rader MD from Last 3 Months [...] seasonal, injecta ble, preservative free 05/28/2020 Novel [id number], all formulations 05/15/2016 Pneumococcal Conjugate PCV 13 [...] Upcoming Encounters Date Type Department Care Team ([facility] st Contact Info) Description 09/03/2025 10:00 AM EST Clinical Support [facility] [address] [place], [place] [phone] 10/13/2025 1:30 PM EST Office Visit [facility] OPTOMETRY [address] [place], [place] [phone] Jacob, Abigail, OD [address] [place], [place] [phone] 11/12/2025 2:30 PM EST Office Visit [facility] MED[facility] [address] [place], [place] [phone] Bárbara Rader MD [address] [place], [place] [phone] Health Maintenance Due Date Last Done Comments [...] complication, without long-term current use of insulin ([facility]/HCC) CULTURE, URINE, ROUTINE Routine 06/05/2025 12:00 AM EDT Recurrent UTI LIPID PANEL, STANDARD Routine 05/14/2025 12:11 PM EDT Type 2 diabetes mellitus with other specified complication, without long-term current use of insulin ([facility]/HCC) POCT GLYCATED HEMOGLOBIN, TOTAL Routine 05/14/2025 11:44 AM EDT Type 2 diabetes mellitus with other specified complication, without long-term current use of insulin ([facility]) HEPATITIS C AB W/REFL TO HCV RNA, QN, PCR Routine 06/20/2024 2:54 PM EDT Type 2 diabetes mellitus with other specified complication, without long-term current use of insulin ([facility]) from Last 3 Months or Most Recently Relevant to Health Maintenance Results * (ABNORMAL) POCT Glucose (08/11/2025 11:24 AM EST) Pathologist [facility] [place] Glucose Blood, POC 207(A) 60 - 200 [...] resultswithin the time period is included. Pathologist [facility] [place] Color Urine Yellow [facility] Appearance Urine Turbid [facility] PH 5.5 5.0 - 9.0 [facility] Glucose Urine UA Negative Negative mg/dL [facility] Urine Blood Small (1+)(A) Negative [facility] Specific [place] - Urine 1.010 1.005 - 1.025 [facility] Urine Protein 30 (1+)(A) Neg-Trace mg/dL [facility] Urine Ketones Negative Negative mg/dL [facility] Nitrite Urine Negative Negative [facility] Leukocyte Esterase Urine Large (3+)(A) Negative [facility] RBC Urine 0-2 0 - 2 /HPF [facility] Urine WBC >50 0 - 5 /HPF [facility] Urine Squamous Epithelial Cell 6-10 0 - 2 /HPF [facility] Urine Bacteria 3+ None Seen [facility] Hyaline Casts, Urine 0-2 0 - 2 /LPF [facility] 08/10/2025 10:2 0 AM EST 08/10/2025 11:04 AM EST Narrative [facility] - 08/10/2025 11:38 AM EST Urine, Clean Catch us Bárbara Raymundo MD LAB URINE ORDERABLES Final Result Performing Organization Address [facility] de Phone Number [facility] [address] [place] [phone] * Culture, Urine, Routine (08/10/2025 12:00 AM EST) Only the most recent of2 resultswithin the time period is included. Urine Urine specimen obtained by clean catch procedure / Unknown 08/10/2025 08/10/2025 Comment:[facility] - 08/11/2025 12:09 PM EST Urine Culture Report Result Urine Culture 10,000 to 50,000 cfu/ml Urine Culture Mixed bacterial stef characteristic of Urine Culture urogenital contamination. Specimen Source: Urine clean catch us Bárbara Raymundo MD LAB MICROBIOLOGY - GE NERAL ORDERABLES Final Result Performing Organization Address City/[facility] Co de Phone Number [facility] [address] [place] [phone] * (ABNORMAL) Albumin, Random Urine W/Creatinine (06/05/2025 12:00 AM EDT) Creatinine, Urine 42.22 mg/dL [facility] Microalbumin Urine 14.0 mg/L H [facility] Microalbum Creatinine Ratio Ur 33.1(H) <30 ug/mg cr [facility] Comment:Albumin/Creatinine R atio Reference Ranges: Normal: < 30 ug/mg creatinine Microalbuminuria: 30 - 300 ug/mg creatinineClinical Albuminuria: > 300 ug/mg creatinine Urine (Urine, Random) 06/05/2025 06/05/2025 us Bárbara Raymundo MD LAB URINE ORDERABLES Final Result [facility] [address] [place] [phone] [phone] * Lipid Panel, Standard (05/14/2025 12:11 PM EDT) Triglycerides 131 <150 mg/dL [facility] Comment:Desirable Triglyceri de: less than 150 mg/dLBorderline High Triglyceride 150-199 mg/dLHigh Triglyceride: 200-499 mg/dLVery High Triglyceride: greater than or equal to 5OO mg/dL Cholesterol 139 <200 mg/dL [facility] Comment:Desirable Cholestero l: less than 200 mg/dLBorderline High Cholesterol: 200-239 mg/dLHigh Cholesterol: greater than 239 mg/dL LDL Cholesterol Calculated 63 <100 mg/dL [facility] Comment:Desirable LDL: less than 100 mg/dLNear Optimal/Above Optimal LDL: 110- 129 mg/dLBorderline High LDL: 130-159 mg/dLHigh LDL: 160-189 mg/dLVery High LDL: greater than or equal to 190 mg/dL HDL Cholesterol 50 >40 mg/dL [facility] Comment:Desirable HDL: great er than 40 mg/dL Note: This HDL assay may give artificially low results in patients with liver disease. Blood Venous blood specimen / Unknown 05/14/2025 12:11 PM EDT 05/14/2025 1:12 PM EDT us Bárbara Raymundo MD LAB BLOOD ORDERABLES Final Result Performing Organization Address [facility]/ZIP Co de Phone Number [facility] [address] [place] [phone] [phone] * (ABNORMAL) POCT HGB A1C (05/14/2025 [...] [facility], [place] Hepatitis C Antibody Nonreactive Nonreactive [facility] Comment:Antibodies to HCV no t detected; does not exclude early acuteHCV infection. Blood Venous blood specimen / Unknown 06/20/2024 2:54 PM EDT 06/20/2024 2:54 PM EDT Carmine Patel MD LAB BLOOD ORDERABLES Final Result Performing Organization Address City/[facility]/ZIP Co de Phone Number [facility] [address] [place] [address] [phone] from Last 3 Months or Most [...] has chronic kidney disease 08/12/2025 Insurance [address] [id number] USP OPTIONS ([facility] D-SNP) ZUHAIR ROBLERO [id number] Care Teams Engineer And Geologist Relationship Specialty Start Date End Date Bárbara Rader MD [address] [place] [address] PCP - General Internal Medicine 07/16/24 Luke Gayle, Shan Pharmacist Internal Medicine 09/04/22 [facility] 11/17/24
--- OUTSIDE RECORDS SUMMARY | 2025-09-01 11:37 | XMS_ITS | Encounter Summary ---
Author Organization [employer] Address 75 [facility] 7t [place] [address] Care Team Providers Care Tripe Finisher Name Role Phone Carmine Patel MD Primary Care Provider [phone] Luke Gayle PharmD Unavailable Unavail able Bárbara Rader MD Primary Care Provide r Encounter Details Date Type Department Care Team (Late st Contact Info) Description 02/14/2024 Orders Only [facility] [address] [place], [place] [phone] Carmine Patel MD [address] [place], [place] [phone] Type 2 diabetes mellitus with other specified complication, without long-term current use of insulin ([facility]) (Primary Dx) Social History Tobacco Use [...] Description 09/03/2025 10:00 AM EST Clinical Support [facility] [address] [place] [address] 10/13/2025 1:30 PM EST Office Visit [facility] OPTOMETRY [address] [place] [address] Jacob, Abigail, OD 230 [place] [address] 11/12/2025 2:30 PM EST Office Visit [facility] [address] [place] [address] Bárbara Rader MD [address] [place] [address] documented as of this encounter Goals Goal [...] AM EDT Narrative 03/31/2024 9:51 AM EDT [place] [address] XRay Report Signed Patient: Magalie Solis MR#: [id number] : 1945 Acct:[id number] Age/Sex: 78 / F ADM Date: 03/13/24 Loc: [facility] Attending Dr: Ofelia Ly NP Ordering Physician: Saleem Young PA-C Date of Service: 03/13/24 Procedure(s): XR ankle RT min 3V Accession Number(s): [id number] cc: Carmine Patel MD; Saleem Young PA-C [...] callus formation. This study was presented to ma March 31, 2024 for interpretation. PSA staff will provide results to referring provider at this time. Dictated By: Tierra Worthy MD Signed By: <Electronically signed by Tierra Worthy MD in OV> 03/31/24 0949 DD/ TD/TT: Sagger Soak: Procedure Note Donotuseinterpreter, Image - 03/31/[address] [address] XRay Report Signed Patient: Magalie Solis MMR#: [id number] : 1945cct:[id number] Age/Sex: 78 / FADM Date: 03/13/24 Loc: HO.XRAY Attending Dr: Ofelia Ly FLEET SERVICE MANAGER Ordering Physician: Saleem Young PA-C Date of Service: 03/13/24 Procedure(s): XR ankle RT min 3V Accession Number(s): [id number] cc: Carmine Patel MD; Saleem Young PA-C [...] callus formation. This study was presented to ma March 31, 2024 for interpretation. PSA staff will provide results to referring provider at this time. Dictated By: Tierra Worthy MD Signed By: <Electronically signed by Tierra Worthy MD in OV> 03/31/2449 DD/ TD/TT: Sagger Soak: [facility] External Provider IMG XR PROCEDURES Final Result * BI Mammogram Additional Views Right (03/12/2024 2:15 PM EDT) Anatomical Region Laterality Modality Breast Right Mammography 03/12/2024 2:15 PM EDT Narrative 03/12/2024 3:[address] [place] [address] Mammography Report Signed Patient: Magalie Live MR#: [id number] : 1945 Acct:[id number] Age/Sex: 78 / F ADM Date: 03/12/24 Loc: HO.MAMMO Attending Dr: Carmine Patel MD Ordering Physician: Carmine Patel MD Results: 2 Benign Findings Date of Service: 03/12/24 Follow Up: 1 Year From Orig ina Mammogram Procedure(s): MM added views RT Accession Number(s): [id number] cc: Carmine Patel MD EXAMINATION: MM DIAGNOSTIC [...] in OV> 03/12/24 1504 DD/ 1415 TD/TT: Sagger Soak: Procedure Note Donotuseinterpreter, Image - 03/12/2024 [facility]'s [address] [place] [address] Mammography Report Signed Patient: Magalie Live MMR#: [id number] 8 : 6Acct:[id number] Age/Sex: 78 / FADM Date: 03/12/24 Loc: HO.MAMMO Attending Dr: Carmine Patel MD Ordering Physician: Carmine Patel MDResults: 2 Benign Findings Date of Service: 03/12/24Follow Up: 1 Year From Orig ina Mammogram Procedure(s): MM added views RT Accession Number(s): [id number] cc: Carmine Patel MD EXAMINATION: MM DIAGNOSTIC [...] in OV> 03/12/24 1504 DD/ 1415 TD/TT: Sagger Soak: Carmine Patel MD IMG BI PROCEDURES Final Res ult documented in this encounter Visit Diagnoses Diagnosis Type 2 diabetes mellitus with other specified complication, without long-term current use of insulin (HCC)- Primary documented in this encounter Additional Health Concerns Assessment Noted Time PHQ-9 Depression Total Score: 0 10/09/19 23 11:12 AM EST documented as of this encounter Care Teams Tripe Finisher Relationship Specialty Start Date End Date Carmine Patel MD [address] [place] [address] PCP - General Internal Medicine 11/16/15 07/15/24 Bárbara Rader MD [address] [place] [address] PCP - General Internal Medicine 07/16/24 Luke Gayle PharmD [address] [place] [address] Pharmacist Internal Medicine 09/04/22 [facility] 07/10/24 11/19/24 [facility] 11/17/24 documented as of this encounter
--- OUTSIDE RECORDS SUMMARY | 2025-09-01 11:37 | XMS_ITS | Encounter Summary ---
Author Organization [employer] Address 75 [facility] [address] [place] [address] Care Team Providers Care Boring Machine Operator Vertical Name Role Phone Carmine Patel MD Primary Care Provider [phone]- [phone] Luke Gayle PharmD Unavailable Unavail able Bárbara Rader MD Primary Care Provide r Reason for Visit * Reason Onset Date Comments Call Back Request 02/06/2024 Encounter Details Date Type Department Care Team (Late st Contact Info) Description 02/06/2024 Telephone [facility] [address] [place] [address] Carmine Patel MD [address] [place] [address] Call Back Request Social History Tobacco Use [...] see if they are ready for picking machine operator. Advised son on PCP [...] and nothing is happening Please contact at [phone] documented in this encounter Plan of Treatment Upcoming Encounters Date Type Department Care Team ([facility] st Contact Info) Description 09/03/2025 10:00 AM EST Clinical Support [facility] MED[facility]INE [address] [place] [address] 10/13/2025 1:30 PM EST Office Visit [facility] OPTOMETRY [address] [place], [place] [phone] Abigail James, OD [address] [place] [address] 11/12/2025 2:30 PM EST Office Visit [facility] MEDICINE [address] [place], [place] [phone] Bárbara Rader MD [address] [place], [place] [phone] documented as of this encounter Goals Goal [...] documented as of this encounter Care Teams Boring Machine Operator Vertical Relationship Specialty Start Date End Date Carmine Patel MD [address] [place] [address] PCP - General Internal Medicine 11/16/15 07/15/24 Bárbara Rader MD [address] [place] [address] PCP - General Internal Medicine 07/16/24 Luke Gayle, PharmD [address] [place] [address] Pharmacist Internal Medicine 09/04/22 [facility] 07/10/24 11/19/24 [facility] 11/17/24 documented as of this encounter
--- OUTSIDE RECORDS SUMMARY | 2025-09-01 11:37 | XMS_ITS | Encounter Summary ---
Author Organization [employer] Address [address] [facility] 7t [place] [address] Care Team Providers Care Head Of Drama Name Role Phone Carmine Patel MD Primary Care Provider +1- [phone] Luke Gayle PharmD Unavailable Unavail able Bárbara Rader MD Primary Care Provide r Encounter Details Date Type Department Care Team (Late st Contact Info) Description 06/11/2024 Orders Only [facility] MED & PEDS [address] [place], [place] [phone] Carmine Patel MD [address] [place], [place] [phone] Pruritus (Primary Dx) Social History Tobacco Use [...] Description 09/03/2025 10:00 AM EST Clinical Support [facility] [address] [place] [address] 10/13/2025 1:30 PM EST Office Visit [facility] OPTOMETRY [address] [place] [address] Jacob, Abigail, OD [address] [place] [address] 11/12/2025 2:30 PM EST Office Visit [facility] [address] [place] [address] Bárbara Rader MD [address] [place] [address] documented as of this encounter Goals Goal [...] of this encounter Care Teams Head Of Drama Relationship Specialty Start Date End Date Carmine Patel MD [address] [place] [address] PCP - General Internal Medicine 11/16/15 07/15/24 Bárbara Rader MD [address] [place] [address] PCP - General Internal Medicine 07/16/24 Luke Gayle, JarettD [address] [place] [address] Pharmacist Internal Medicine 09/04/22 [facility] 07/10/24 11/19/24 [facility] 11/17/24 documented as of this encounter
--- OUTSIDE RECORDS SUMMARY | 2025-09-01 11:37 | XMS_ITS | Encounter Summary ---
Author Organization [employer] Address [address] [facility] 7[address] [place] [address] Care Team Providers Care Watch Electrician Name Role Phone Carmine Patel MD Primary Care Provider +1- [phone] Luke Gayle PharmD Unavailable Unavail able Bárbara Rader MD Primary Care Provide r Reason for Visit * Reason Onset Date Comments FYI 05/07/2024 Encounter Details Date Type Department Care Team (Late st Contact Info) Description 05/07/[address] [facility] [address] [place] [address] Carmine Patel MD 505 [place] [address] FYI Social History Tobacco Use Types Packs/Day [...] any questions you can contact Terence at [phone]. documented in this encounter Plan of Treatment Upcoming Encounters Date Type Department Care Team (Late st Contact Info) Description 09/03/2025 10:00 AM EST Clinical [facility] [address] [place] [address] 10/13/2025 1:30 PM EST Office Visit [facility] OPTOMETRY [address] [place] [address] Abigail James, OD [address] [place] [address] 11/12/2025 2:30 PM EST Office Visit [facility] [address] [place] [address] Bárbara Rader MD [address] [place] [address] documented as of this encounter Goals Goal [...] documented as of this encounter Care Teams Watch Electrician Relationship Specialty Start Date End Date Carmine Patel MD [address] [place] [address] PCP - General Internal Medicine 11/16/15 07/15/24 Bárbara Rader MD [address] [place] [address] PCP - General Internal Medicine 07/16/24 Luke Gayle, PharmD [address] [place] [address] Pharmacist Internal Medicine 09/04/22 [facility] 07/10/24 11/19/24 [facility] 11/17/24 documented as of this encounter
--- OUTSIDE RECORDS SUMMARY | 2025-09-01 11:37 | XMS_ITS | Encounter Summary ---
Author Organization [employer] Address [address] [place] [address] [address], [place] [address] Care Team Providers Care Multimedia Manager Name Role Phone Carmine Patel MD Primary Care Provider +1 [phone] Luke Gayle PharmD Unavailable Unavail able Bárbara Rader MD Primary Care Provide r Reason for Referral * Consultation (Routine) - Closed Specialty Diagnoses / Procedures Referred By Alden andres Referred To Contact Physical Therapy Diagnoses Acute right ankle pain Carmine Patel MD [address] [place] [address] Phone: tel: fax: [facility] [address] [place] [address] Phone: tel: fax: Referral ID Status Reason Start Date Expiration Date V isits Requested Visits Authorized [id number] Closed Specialty Services Required 03/28/2024 03/28/2025 1 1 Encounter Details Date Type Department Care Team (Late st Contact Info) Description 03/24/2024 Orders Only [facility] MED & PEDS [address] [place], [place] [phone] Carmine Patel MD [address] [place] [address] Acute right ankle pain (Primary Dx) Social [...] Description 09/03/2025 10:00 AM EST Clinical Support [facility] [address] [place] [address] 10/13/2025 1:30 PM EST Office Visit [facility] OPTOMETRY [address] [place] [address] Abigail James, OD [address] [place] [address] 11/12/2025 2:30 PM EST Office Visit [facility] MEDICINE [address] [place] [address] Bárbara Rader MD [address] [place] [address] Scheduled Orders Name Type Priority Associated Diagnoses [...] AM EDT Narrative 03/28/2024 12:12 PM EDT [address] [address] XRay Report Signed Patient: Magalie Solis MR#: [id number] : 1945 Acct:[id number] Age/Sex: 78 / F ADM Date: 03/28/24 Loc: HO.ED Attending Dr: Ordering Physician: Elzbieta Franz Date of Service: 03/28/24 Procedure(s): XR knee RT 4V Accession Number(s): [id number] cc: Carmine Patel MD; Elzbieta Franz EXAMINATION: [...] in OV> 03/28/24 1208 DD/ 1151 TD/TT: Diabetes Territory Manager: Procedure Note Donotuseinterpreter, Image - 03/28/2024 [place] [address] XRay Report Signed Patient: Magalie Solis MMR#: [id number] : 6Acct:[id number] Age/Sex: 78 / FADM Date: 03/28/24 Loc: HO.ED Attending Dr: Ordering Physician: Elzbieta Franz Date of Service: 03/28/24 Procedure(s): XR knee RT 4V Accession Number(s): [id number] cc: Carmine Patel MD; Elzbieta Franz EXAMINATION: [...] in OV> 03/28/24 1208 DD/ 1151 TD/TT: Diabetes Territory Manager: [facility] External Provider IMG XR PROCEDURES Final Result documented in this encounter Visit Diagnoses Diagnosis Acute right ankle pain- Primary documented in this encounter Additional Health Concerns Assessment Noted Time PHQ-9 Depression Total Score: 0 10/09/19 23 11:12 AM EST documented as of this encounter Care Teams Multimedia Manager Relationship Specialty Start Date End Date Carmine Patel MD [address] [place] [address] PCP - General Internal Medicine 11/16/15 07/15/24 Bárbara Rader MD [address] [place] [address] PCP - General Internal Medicine 07/16/24 Luke Gayle PharmD [address] [place] [address] Pharmacist Internal Medicine 09/04/22 [facility] 07/10/24 11/19/24 [facility] 11/17/24 documented as of this encounter
--- OUTSIDE RECORDS SUMMARY | 2025-09-01 11:37 | XMS_ITS | Encounter Summary ---
Author Organization [employer] Address [address] [facility] 7t [place] [address] Care Team Providers Care Environmental Engineer Name Role Phone Carmine Patel MD Primary Care Provider [phone]- [phone] Luke Gayle PharmD Unavailable Unavail able Bárbara Rader MD Primary Care Provide r Encounter Details Date Type Department Care Team (Late st Contact Info) Description 01/18/2024 Orders Only [facility] MED & PEDS [address] [place], [place] [phone] Carmine Patel MD [address] [place], [place] [phone] Urinary incontinence, unspecified type (Primary Dx) Social [...] Description 09/03/2025 10:00 AM EST Clinical Support [facility] MED[facility] [address] [place] [address] 10/13/2025 1:30 PM EST Office Visit [facility] OPTOMETRY [address] [place] [address] Abigail James, OD [address] [place] [address] 11/12/2025 2:30 PM EST Office Visit [facility] [address] [place] [address] Bárbara Rader MD [address] [place] [address] documented as of this encounter Goals Goal [...] (06/20/2024 1:00 PM EDT) Color Urine Yellow [facility] Appearance Urine Cloudy [facility] PH 6.5 5.0 - 9.0 [facility] Glucose Urine UA Negative Negative mg/dL [facility] Urine Blood Trace(A) Negative [facility] Specific [place] - Urine 1.010 1.005 - 1.025 [facility] Urine Protein Negative Neg-Trace mg/dL [facility] Urine Ketones Negative Negative mg/dL [facility] Nitrite Urine Negative Negative [facility] Leukocyte Esterase Urine Large (3+)(A) Negative [facility] RBC Urine 0-2 0 - 2 /HPF [facility] Urine WBC >50(A) 0 - 5 /HPF [facility] Urine Squamous Epithelial Cell 0-2 0 - 2 /HPF [facility] Urine Bacteria 4+ None Seen [facility] Hyaline Casts, Urine 0-2 0 - 2 /LPF [facility] Urine 06/20/2024 1:00 PM EDT 06/20/2024 3:09 PM EDT Narrative [facility] - 06/20/2024 3:25 PM EDT Urine, Clean Catch us Carmine Patel MD LAB URINE ORDERABLES Final Result [facility] [address] [place] [address] [phone] documented in this encounter Visit Diagnoses Diagnosis Urinary incontinence, unspecified type- Primary documented in this encounter Additional Health Concerns Assessment Noted Time PHQ-9 Depression Total Score: 0 10/09/19 23 11:12 AM EST documented as of this encounter Care Teams Environmental Engineer Relationship Specialty Start Date End Date Carmine Patel MD [address] [place] [address] PCP - General Internal Medicine 11/16/15 07/15/24 Bárbara Rader MD [address] [place] [address] PCP - General Internal Medicine 07/16/24 Luke Gayle PharmD [address] [place] [address] Pharmacist Internal Medicine 09/04/22 [facility] 07/10/24 11/19/24 [facility] 11/17/24 documented as of this encounter
--- OUTSIDE RECORDS SUMMARY | 2025-09-01 11:37 | XMS_ITS | Encounter Summary ---
Author Organization [employer] Address [address] [facility] 7t [place] [address] Care Team Providers Care Underwriting Specialist Name Role Phone Luke Gayle PharmD Unavailable Unavail able Bárbara Rader MD Primary Care Provide r Reason for Visit * Reason Onset Date Comments Appointment Request 09/15/2024 Encounter Details Date Type Department Care Team ([facility] st Contact Info) Description 09/15/2024 Telephone [facility] MEDICINE [address] [place] [address] Bárbara Rader MD [address] [place], [place] [phone] Appointment Request Social History Tobacco Use Types [...] Clinical Support [facility] [address] [place] [address] 10/13/2025 1:30 PM EST Office Visit [facility] OPTOMETRY [address] [place] [address] Abigail James, OD [address] [place], [place] [phone] 11/12/2025 2:30 PM EST Office Visit [facility] MED[facility] [address] [place] [address] Bárbara Rader MD [address] [place] [address] documented as of this encounter Goals Goal [...] documented as of this encounter Care Teams Underwriting Specialist Relationship Specialty Start Date End Date Bárbara Rader MD [address] [place] [address] PCP - General Internal Medicine 07/16/24 Luke Gayle, PharmD Pharmacist Internal Medicine 09/04/22 [facility] 07/10/24 11/19/24 [facility] 11/17/24 documented as of this encounter
== END 2025-09-01 10:09 | disposition home or self-care (01) ==
LOC: HO.HGS 09:45
PROVIDERS: PCP Internal Medicine; Visit Provider Surgery
DX: L72.3 Sebaceous cyst (principal)
CPT/HCPCS: 99203

== ENCOUNTER → 2025-09-01 09:44 | Outpatient (BNVA) | payer OTHER, SELFPAY | PROVIDERS: PCP Internal Medicine; Visit Provider Surgery | DX: L72.3 Sebaceous cyst (principal) | CPT/HCPCS: 99202 ==